=== PATIENT | female | born 1950 | race Caucasian/White ===

== ENCOUNTER 2016-05-30 14:53 | Emergency (ER) | payer OTHER ==
[~2016-05-30] VITALS: Ht 157.5 cm; Wt 86.5 kg
[~2016-05-30 14:53] MED LIST: ANAS1TAB6 PO; CALCTAB5 PO; CITA40TA12 PO; GLIP10TA9 PO; LEVO50TA6 PO; LISI-461 PO; METO25TA56 PO; MULTTAB58 PO; SIME80CH; SIMV20TA2 PO; TRAM-10 PO; VERA1TAB52 PO; VTMB12UNK IM; WARF4TAB PO; WARF5TAB90 PO
[2016-05-30 14:54] VITALS: TEMP 36.9; Ht 157.5 cm; Wt 86.5 kg
[2016-05-30] MEDS ORDERED: CIPR250T3 PO (15:46)
[2016-05-30] MEDS ORDERED: PRT/40 PO (15:46)
[2016-05-30] MEDS ORDERED: XYLOCAINE 1%/SOD BICARB 20 ML VIAL INFIL ONE (16:00)
[2016-05-30 16:17] LABS: BASO % 0.2 %; BASO ABS # 0.02 K/uL (0-0.2); COMPLETE YES; HEMATOCRIT 34.9 % (37-47); IG% 0.2 %; LYMPH % 9.5 %; LYMPH ABS # 0.84 K/uL (1.2-3.4); MEAN CORPUSCULAR HEMOGLOBIN 30.9 pg (25-34); MEAN CORPUSCULAR HGB CONC 34.7 g/dl (32-36); MEAN PLATELET VOLUME 11.9 fL (7.4-10.4); MONO % 3.9 %; NEUT % 86.2 %; PLATELET COUNT 175 K/uL (130-400); RED BLOOD COUNT 3.92 M/uL (4.2-5.4); WHITE BLOOD COUNT 8.88 K/uL (4.8-10.8)
--- NOTE | 2016-05-30 16:24 | EMERGENCY ROOM VISIT NOTE ---
History First contact with patient: 15:24 Chief Complaint: FALL Stated Complaint: FALL History of Present Illness The patient is a 66 year old female who presents to the Emergency Room with complaints of fall. The patient states she was visiting her upstairs when her foot got caught on the floor and she tripped. She struck the right side of her face and head as well as her right ribs on the ground. She denies syncope or loss of consciousness. She rates her discomfort a 10/10. She reports a small laceration to the face. She denies any dizziness, lightheadedness, chest pain, trouble breathing prior to the fall. She states she had mild dizziness after the fall. She denies any extremity pain. She denies any abdominal pain. The patient has a history of hypertension. She states she has noticed that her blood pressure has been elevated recently. The patient states she has also had a mild headache throughout the day today. Her tetanus is not up-to-date. Review of Systems A 10 system review of systems was completed with positives and pertinent negatives listed in the HPI. Past Medical/Surgical History Medical Problems: (1) back surgery february 21, 2012 (2) Benign hypertension (3) Breast cancer (4) Diabetes mellitus (5) Spinal stenosis (6) Total replacement of hip Family History Patient reports no known family medical history. Social History Smoking Status: Former Smoker Alcohol Use: none Drug Use: none Marital Status: Housing Status: lives with family Occupation Status: retired Current/Historical Medications Scheduled Anastrozole (Anastrozole), 1 TAB PO DAILY Calcium (Caltrate), 1,200 MG PO QAM Ciprofloxacin (Cipro), 250 MG PO BID Citalopram Hydrobromide (Celexa), 40 MG PO QAM Cyanocobalamin (Vitamin B-12 Unkown Dose), 1,000 MCG IM EVERY 3 MONTHS Glipizide (Glucotrol), 5 MG PO BID Levothyroxine Sodium (Levothyroxine Sodium), 50 MCG PO QAM Lisinopril (Lisinopril), 10 MG PO QAM Metoprolol Tartrate (Lopressor) (Lopressor), 25 MG PO BID Multiple Vitamin (Multivitamin), 1 TAB PO QAM Pantoprazole (Pantoprazole Sodium), 40 MG PO DAILY Simethicone (Mytab Gas), 1 TAB TID Simvastatin (Zocor), 20 MG PO QPM Verapamil Hcl (Verapamil Hcl Er), 120 MG PO QAM Warfarin Sodium (Coumadin), 4 MG PO DIRECTED Warfarin Sodium (Coumadin), 5 MG PO DIRECTED Scheduled PRN Tramadol (Ultram), 50 MG PO Q6 PRN for Pain Allergies Coded Allergies: Meperidine (Verified Allergy, Mild, ITCHING/RASH, 05/30/16) RASH, ITCHING Metformin (Verified Adverse Reaction, Unknown, INSOMNIA, 05/30/16) Physical Exam Vital Signs Date Time Temp Pulse Resp B/P Pulse Ox O2 Delivery O2 Flow Rate FiO2 05/30/16 16:59 58 18 180/73 94 Room Air 05/30/16 14:54 36.9 57 18 200/98 93 Room Air Physical Exam VITALS: Vitals are noted on the nurse's note and reviewed by myself. Vital signs stable. The patient is afebrile. GENERAL: This is a 66-year-old female, in no acute distress, nondiaphoretic, well-developed well-nourished. SKIN: There is a 1.5 cm laceration to the right periorbital area. There is mild ecchymosis. Capillary reflex less than 2 seconds. HEAD: Normocephalic atraumatic. EARS: External auditory canals clear, tympanic membranes pearly cunningham without erythema or effusion bilaterally. EYES: Pupils equal round and reactive to light and accommodation. Conjunctivae without injection, sclerae without icterus. Extraocular movements intact. NOSE: Patent, turbinates without inflammation or discharge. No sinus tenderness. MOUTH: Mucous membranes moist. Tonsils are not enlarged. Pharynx without erythema or exudate. Uvula midline. Airway patent. Tongue does not deviate. NECK: Supple without nuchal rigidity. Cervical spine is nontender. No JVD. HEART: Regular rate and rhythm without murmurs gallops or rubs. LUNGS: Clear to auscultation bilaterally without wheezes, rales or rhonchi. No retractions or accessory muscle use. MUSCULOSKELETAL: No muscle atrophy, erythema, or edema noted. Full range of motion in all extremities. Normal gait. Strength 5/5 throughout. NEURO: Patient was alert and oriented to person place and time. No focal neurological deficits. Medical Decision & Procedures ER Provider Diagnostic Interpretation: CT HEAD WITHOUT CONTRAST (CT) CLINICAL HISTORY: Head trauma. Patient on Coumadin. Head pain. COMPARISON STUDY: 08/30/2013 TECHNIQUE: Axial CT of the brain is performed from the vertex to the skull base. IV contrast was not administered for this examination. CT DOSE: 601.98 mGy.cm FINDINGS: No intra or extra-axial mass lesions are visualized. There is no CT evidence of acute cortical infarction. There is no evidence of midline shift. There is no acute hemorrhage. No calvarial fractures are visualized. There are patchy white matter hypodensities likely on a small vessel basis. There is no evidence of pathologic ventricular dilatation. There is no evidence of acute sinusitis IMPRESSION: No acute intracranial findings RIGHT RIBS UNILATERAL WITH PA CHEST CLINICAL HISTORY: Right rib pain status post trauma COMPARISON STUDY: No previous studies for comparison. FINDINGS: The erect chest reveals postsurgical changes of a left humeral arthroplasty. There are degenerative changes in the right shoulder. The heart is the upper limits of normal in size. There is no pneumothorax. There is no focal pulmonary consolidation. No acute right-sided rib fractures are visualized. There are postsurgical changes in lumbar spine. There are surgical clips within the right upper quadrant suggesting a prior cholecystectomy. IMPRESSION: No acute right-sided rib fractures identified. No evidence of pneumothorax. Laboratory Results 05/30/16 16:00 Red Blood Count 3.92, Mean Corpuscular Volume 89.0, Mean Corpuscular Hemoglobin 30.9, Mean Corpuscular Hemoglobin Concent 34.7, Mean Platelet Volume 11.9, Neutrophils (%) (Auto) 86.2, Lymphocytes (%) (Auto) 9.5, Monocytes (%) (Auto) 3.9, Eosinophils (%) (Auto) 0.0, Basophils (%) (Auto) 0.2, Neutrophils # (Auto) 7.65, Lymphocytes # (Auto) 0.84, Monocytes # (Auto) 0.35, Eosinophils # (Auto) 0.00, Basophils # (Auto) 0.02 05/30/16 16:00 Test 05/30/16 16:00 05/30/16 16:13 05/30/16 16:55 White Blood Count 8.88 K/uL (4.8-10.8) Red Blood Count 3.92 M/uL (4.2-5.4) Hemoglobin 12.1 g/dL (12.0-16.0) Hematocrit 34.9 % (37-47) Mean Corpuscular Volume 89.0 fL (80-100) Mean Corpuscular Hemoglobin 30.9 pg (25-34) Mean Corpuscular Hemoglobin Concent 34.7 g/dl (32-36) Platelet Count 175 K/uL (130-400) Mean Platelet Volume 11.9 fL (7.4-10.4) Neutrophils (%) (Auto) 86.2 % Lymphocytes (%) (Auto) 9.5 % Monocytes (%) (Auto) 3.9 % Eosinophils (%) (Auto) 0.0 % Basophils (%) (Auto) 0.2 % Neutrophils # (Auto) 7.65 K/uL (1.4-6.5) Lymphocytes # (Auto) 0.84 K/uL (1.2-3.4) Monocytes # (Auto) 0.35 K/uL (0.11-0.59) Eosinophils # (Auto) 0.00 K/uL (0-0.5) Basophils # (Auto) 0.02 K/uL (0-0.2) RDW Standard Deviation 45.4 fL (36.4-46.3) RDW Coefficient of Variation 14.0 % (11.5-14.5) Immature Granulocyte % (Auto) 0.2 % Immature Granulocyte # (Auto) 0.02 K/uL (0.00-0.02) Prothrombin Time 20.8 SECONDS (9.0-12.0) Prothromb Time International Ratio 1.9 (0.9-1.1) Activated Partial Thromboplast Time 36.3 SECONDS (21.0-31.0) Partial Thromboplastin Ratio 1.4 Anion Gap 8.0 mmol/L (3-11) Est Creatinine Clear Calc Drug Dose 79.7 ml/min Estimated GFR () 103.7 Estimated GFR (Non- 89.4 BUN/Creatinine Ratio 18.6 (10-20) Calcium Level 8.9 mg/dl (8.5-10.1) Magnesium Level 2.1 mg/dl (1.8-2.4) Total Bilirubin 0.3 mg/dl (0.2-1) Aspartate Amino Transf (AST/SGOT) 27 U/L (15-37) Alanine Aminotransferase (ALT/SGPT) 43 U/L (12-78) Alkaline Phosphatase 103 U/L (45-117) Total Creatine Kinase 99 U/L (26-192) Total Protein 7.7 gm/dl (6.4-8.2) Albumin 3.9 gm/dl (3.4-5.0) Globulin 3.8 gm/dl (2.5-4.0) Albumin/Globulin Ratio 1.0 (0.9-2) Bedside Troponin I 0.000 ng/ml (0-0.045) Urine Color YELLOW Urine Appearance CLEAR (CLEAR) Urine pH 5.5 (4.5-7.5) Urine Specific [place] 1.016 (1.000-1.030) Urine Protein NEG (NEG) Urine Glucose (UA) NEG (NEG) Urine Ketones NEG (NEG) Urine Occult Blood NEG (NEG) Urine Nitrite NEG (NEG) Urine Bilirubin NEG (NEG) Urine Urobilinogen NEG (NEG) Urine Leukocyte Esterase TRACE (NEG) Urine WBC (Auto) 1-5 /hpf (0-5) Urine RBC (Auto) 0-4 /hpf (0-4) Urine Hyaline Casts (Auto) 1-5 /lpf (0-5) Urine Epithelial Cells (Auto) 20-30 /lpf (0-5) Urine Bacteria (Auto) NEG (NEG) Medications Administered Medications (Trade) Dose Ordered Sig/Kate Route Start Time Stop Time Status Last Admin Dose Admin Lidocaine HCl (Buffered Lidocaine 1% Inj) 20 ml NOW ONCE INFIL 05/30/16 16:00 05/30/16 16:01 DC 05/30/16 16:00 20 ML Procedure Total of 2.5 cm of laceration to the right periorbital area were repaired. Using sterile technique the wound was cleaned with Betadine. The area was sterilely draped. 3 ml of 1% buffered lidocaine was used to anesthetize the skin. Once the patient was numb, the wound was copiously irrigated under pressure with sterile saline. The wound was explored and there were no deep structures such as tendons, bone, or ligaments present. The laceration was repaired using 5 simple interrupted 6-0 nylon sutures with the wound edges being well approximated. The patient tolerated the procedure well. The bleeding stopped. The area was cleaned with sterile saline and dressed with bacitracin ointment and bandage. The patient was discharged home in good condition. ECG Indication: other (fall) Rate (beats per minute): 54 Rhythm: sinus bradycardia Findings: no acute ischemic change Change: no significant change ED Course The patient was seen and examined. Previous visits were reviewed. The patient does not have a fever or leukocytosis. She does not have any significant electrolyte abnormality. Her glucose is elevated at 202. She states she did not take her insulin today. Troponin was not elevated. INR was 1.9. Urinalysis was negative. CT scan of the brain was negative for intracranial bleeding. There is no evidence of skull fracture. X-ray of the right ribs was negative for pneumothorax or obvious rib fracture Lacerations to the right side the face were repaired as above The patient was advised that her INR was 1.9. She should have the sutures removed in 5-7 days. She should return with any worsening symptoms. Just after discharge, I did note that her tetanus was not up-to-date. I placed an order for Adacel. The patient stated she was going back upstairs to visit her . I asked the charge nurse to ensure that she got the tetanus vaccine. He acknowledged and stated he would take care of it. The patient was also seen and examined by who agrees with the assessment and treatment plan. Medical Decision The differential diagnosis includes intracranial bleeding, skull fracture, rib fracture, contusion, pneumothorax, hemothorax, facial laceration, among others Impression Primary Impression: Fall Additional Impressions: Facial laceration Closed head injury Rib contusion Departure Information Dispostion Home / Self-Care Condition GOOD Referrals Quinn Lovett M.D. (PCP) Patient Instructions ED Head Injury Closed, ED Laceration Facial Sutr Tape, [facility] Additional Instructions Keep wound clean and dry. Do not allow any crusting or dried blood to accumulate on sutures. If this occurs, use a 1:1 solution of hydrogen peroxide/ water on a Q-tip to clean the wound. Use an antibiotic ointment for 3-4 days, then let wound dry. Suture removal in 5-7 days. Return sooner for any signs of infection (increasing redness, swelling, drainage). Ice and elevate for swelling and pain. Tylenol according to package instructions for pain. Keep covered when in sun until sutures removed then SPF 50 or higher for one year. Vitamin E oil if desired two weeks after suture removal for reduction of scar. Follow up with your family doctor for further evaluation and management Return with any worsening symptoms Problem Qualifiers Primary Impression: Fall Encounter type: initial encounter Qualified Codes: W19.XXXA - Unspecified fall, initial encounter Additional Impressions: Facial laceration Encounter type: initial encounter Qualified Codes: S01.81XA - Laceration without foreign body of other part of head, initial encounter Closed head injury Encounter type: initial encounter Qualified Codes: S09.90XA - Unspecified injury of head, initial encounter Rib contusion Encounter type: initial encounter Laterality: right Qualified Codes: S20.211A - Contusion of right front wall of thorax, initial encounter
--- NOTE | 2016-05-30 16:30 | DIAGNOSTIC IMAGING REPORT ---
CT HEAD WITHOUT CONTRAST (CT) CLINICAL HISTORY: Head trauma. Patient on Coumadin. Head pain. COMPARISON STUDY: 08/30/2013 TECHNIQUE: Axial CT of the brain is performed from the vertex to the skull base. IV contrast was not administered for this examination. CT DOSE: 601.98 mGy.cm FINDINGS: No intra or extra-axial mass lesions are visualized. There is no CT evidence of acute cortical infarction. There is no evidence of midline shift. There is no acute hemorrhage. No calvarial fractures are visualized. There are patchy white matter hypodensities likely on a small vessel basis. There is no evidence of pathologic ventricular dilatation. There is no evidence of acute sinusitis IMPRESSION: No acute intracranial findings Electronically signed by: José Vences M.D. 05/30/2016 4:29 PM Dictated Date/Time: 05/30/2016 4:28 PM
[2016-05-30 16:32] LABS: INR 1.9 (0.9-1.1); PARTIAL THROMBOPLASTIN RATIO 1.4; PROTHROMBIN TIME (PATIENT) 20.8 SECONDS (9.0-12.0)
[2016-05-30 16:35] LABS: BUN/CREATININE RATIO 18.6 (10-20); CALCIUM 8.9 mg/dl (8.5-10.1); CREATININE 0.69 mg/dl (0.60-1.20); MAGNESIUM 2.1 mg/dl (1.8-2.4); POTASSIUM 4.3 mmol/L (3.5-5.1)
[2016-05-30 16:59] VITALS: BP 180/73; PULSE 58; O2SAT 94
[2016-05-30 17:17] LABS: URINE APPEARANCE CLEAR (CLEAR); URINE BILIRUBIN NEG (NEG); URINE COLOR YELLOW; URINE EPITHELIAL CELL AUTO 20-30 /lpf (0-5); URINE NITRITE NEG (NEG); URINE PH 5.5 (4.5-7.5); URINE SPECIFIC GRAVITY 1.016 (1.000-1.030); UROBILINOGEN NEG (NEG); ZZUR CULT IF INDIC CLEAN CATCH NO
[2016-05-30 17:21] LABS: MANUAL MICROSCOPIC REQUIRED? NO; REVIEW REQ? NO
--- NOTE | 2016-05-30 17:22 | DIAGNOSTIC IMAGING REPORT ---
RIGHT RIBS UNILATERAL WITH PA CHEST CLINICAL HISTORY: Right rib pain status post trauma COMPARISON STUDY: No previous studies for comparison. FINDINGS: The erect chest reveals postsurgical changes of a left humeral arthroplasty. There are degenerative changes in the right shoulder. The heart is the upper limits of normal in size. There is no pneumothorax. There is no focal pulmonary consolidation. No acute right-sided rib fractures are visualized. There are postsurgical changes in lumbar spine. There are surgical clips within the right upper quadrant suggesting a prior cholecystectomy. IMPRESSION: No acute right-sided rib fractures identified. No evidence of pneumothorax. Electronically signed by: José Vences M.D. 05/30/2016 5:20 PM Dictated Date/Time: 05/30/2016 5:18 PM
--- NOTE | 2016-05-30 17:29 | EMERGENCY ROOM VISIT NOTE ---
ED Visit Note First contact with patient: 15:24 This Patient was discussed with the physician Drawer In Hand, Esther Carreno PA-C. The pertinent historical and physical exam findings were confirmed. I agree with the studies ordered and with the interpretations of these studies. I agree with the disposition and care plan.
[2016-05-30] MEDS ORDERED: DIPHTHERIA/TETANUS/PERTUSSIS 0.5 ML SYR/VIAL IM. ONE (18:30)
[2016-06-25] MEDS ORDERED: SITA25TA PO (15:21)
[2016-08-08] MEDS ORDERED: INSDGIPEN SC (10:24)
[2016-08-08] MEDS ORDERED: SITA50TA3 PO (10:24)
[2017-01-07] MEDS ORDERED: ATOR-22 PO (13:16)
[2017-01-21] MEDS ORDERED: WARF4TAB8 PO (15:34)
[2017-01-21] MEDS ORDERED: CIPR0.3S OPB (15:34)
[2017-01-21] MEDS ORDERED: LEVO50TA6 PO (15:34)
[2017-01-21] MEDS ORDERED: GLIP10TA9 PO (15:34)
[2017-01-21] MEDS ORDERED: ARTIOIN OPB (15:34)
[2017-01-21] MEDS ORDERED: PANT40TA PO (15:34)
[2017-01-21] MEDS ORDERED: INSDGI SC (15:34)
[2017-01-21] MEDS ORDERED: METO25TA56 PO (15:34)
[2017-01-21] MEDS ORDERED: MULT-506 PO (15:34)
[2017-01-21] MEDS ORDERED: CALC600T24 PO (15:34)
[2017-01-21] MEDS ORDERED: ACET300T2 PO (15:34)
[2017-01-21] MEDS ORDERED: CITA40TA4 PO (15:34)
[2017-01-21] MEDS ORDERED: SIME80CH PO ×2 (15:34)
[2017-01-21] MEDS ORDERED: ATOR-24 PO (15:34)
[2017-01-21] MEDS ORDERED: GENT0.3S6 OPB (15:34)
[2017-01-21] MEDS ORDERED: TRAM-10 PO (15:34)
[2017-01-21] MEDS ORDERED: LISI-461 PO (15:34)
[2017-01-21] MEDS ORDERED: VERA120T15 PO (15:34)
== END 2016-05-30 17:43 | disposition home or self-care (01) ==
LOC: C.EDB 14:54 → C.EDD 17:43
DX: S01.81XA Laceration without foreign body of other part of head, initial encounter (principal); S09.90XA Unspecified injury of head, initial encounter; S20.219A Contusion of unspecified front wall of thorax, initial encounter; W01.0XXA Fall on same level from slipping, tripping and stumbling without subsequent striking against object, initial encounter; I10 Essential (primary) hypertension; Z85.3 Personal history of malignant neoplasm of breast; E11.9 Type 2 diabetes mellitus without complications; Z98.890 Other specified postprocedural states; Z96.649 Presence of unspecified artificial hip joint; Z87.891 Personal history of nicotine dependence; Z79.01 Long term (current) use of anticoagulants; Z23 Encounter for immunization

== ENCOUNTER → 2016-07-09 | Outpatient (CLI) | payer OTHER ==
[~2016-07-09] MED LIST changes: +ACET300T2 PO; +ARTIOIN OPB; +ATOR-22 PO; +ATOR-24 PO; +CALC600T24 PO; +CIPR0.3S OPB; +CITA40TA4 PO; +GENT0.3S6 OPB; +INSDGI SC; +INSDGIPEN SC; +MULT-506 PO; +PANT40TA PO; +PRT/40 PO; +SIME80CH PO; +SITA25TA PO; +SITA50TA3 PO; +VERA120T15 PO; +WARF4TAB8 PO; -WARF5TAB90 PO
[2016-07-09 12:44] LABS: BASO % 0.5 %; BASO ABS # 0.03 K/uL (0-0.2); COMPLETE YES; EOS % 0.8 %; HEMATOCRIT 36.2 % (37-47); IG% 0.3 %; LYMPH ABS # 1.23 K/uL (1.2-3.4); MEAN CELL VOLUME 90.3 fL (80-100); MEAN CORPUSCULAR HEMOGLOBIN 29.9 pg (25-34); MEAN CORPUSCULAR HGB CONC 33.1 g/dl (32-36); MEAN PLATELET VOLUME 11.5 fL (7.4-10.4); MONO % 5.9 %; NEUT % 73.5 %; PLATELET COUNT 178 K/uL (130-400); RED BLOOD COUNT 4.01 M/uL (4.2-5.4); WHITE BLOOD COUNT 6.47 K/uL (4.8-10.8)
[2016-07-09 12:53] LABS: ESTIMATED AVERAGE GLUCOSE 180 mg/dl; HA1C FLAG Normal (Normal)
[2016-07-09 13:12] LABS: THYROID STIMULATING HORMONE 1.56 uIu/ml (0.300-4.500)
== END | disposition home or self-care (01) ==
LOC: C.LABBC 10:41
PROVIDERS: ATTEND Internal Medicine
DX: I95.9 Hypotension, unspecified (principal); E11.65 Type 2 diabetes mellitus with hyperglycemia; D64.9 Anemia, unspecified

== ENCOUNTER → 2016-07-22 | Outpatient (CLI) | payer OTHER ==
[~2016-07-22] MED LIST changes: +CYAN1DRO IM
--- NOTE | 2016-07-23 08:03 | MAMMOGRAPHY REPORT ---
UNILATERAL LEFT DIGITAL DIAGNOSTIC MAMMOGRAM TOMOSYNTHESIS WITH CAD: 07/22/2016 CLINICAL HISTORY: 66-year-old woman presents for new baseline in the left breast status post lumpect sridevi and radiation. Patient also has a history of right breast cancer status post treatment in 2013. TECHNIQUE: Left breast CC and MLO 2-D digital and tomosynthesis images, spot magnification left CC a nd ML views were obtained. Current study was also evaluated with a Computer Aided Detection (CAD) s ystem. COMPARISON: Comparison is made to exams dated: 01/04/2016 localization, 12/18/2015 ultrasound, 6 ultrasound biopsy, 12/14/2015 mammogram, and 10/19/2013 mammogram - [facility]. BREAST COMPOSITION: There are scattered areas of fibroglandular density in the left breast. FINDINGS: There is expected architectural distortion with central lucency representing the lumpectom y site in the central left breast. A linear scar marker overlies the anterior left breast. There a re a few benign coarse calcifications in the left breast. No new suspicious mass, unexpected abdias ectural distortion or cluster of suspicious microcalcifications is seen. IMPRESSION: ACR-BI-RADS CATEGORY 3: PROBABLY BENIGN Expected post treatment changes in the left breast, without mammographic evidence of malignancy. An nual bilateral mammography is due in 6 months and repeat spot magnification views of the left breast can also be obtained at that time to ensure stability after treatment. These results and recommend ations were discussed with the patient at the time of the exam. Approximately 10% of breast cancers are not detected with mammography. A negative mammographic repor t should not delay biopsy if a clinically suggestive mass is present. Chaparrita Rehman M.D. ay/:07/22/2016 13:59:02 Negative Retoucher: Hailey REMY(Ion)(Catherine), [facility] letter sent: Follow Up Recommended 3 BI-RADS Code: ACR-BI-RADS Category 3: Probably Benign
== END | disposition home or self-care (01) ==
LOC: C.MAMM 13:25
PROVIDERS: ATTEND Surgery
DX: R92.1 Mammographic calcification found on diagnostic imaging of breast (principal)

== ENCOUNTER → 2016-12-18 | Outpatient (CLI) | payer OTHER ==
[~2016-12-18] MED LIST changes: -SITA25TA PO
[2016-12-18 12:34] LABS: BASO % 0.3 %; BASO ABS # 0.02 K/uL (0-0.2); COMPLETE YES; EOS % 0.9 %; LYMPH ABS # 1.18 K/uL (1.2-3.4); MEAN CELL VOLUME 92.6 fL (80-100); MEAN CORPUSCULAR HEMOGLOBIN 30.2 pg (25-34); MEAN CORPUSCULAR HGB CONC 32.6 g/dl (32-36); MEAN PLATELET VOLUME 11.1 fL (7.4-10.4); MONO % 9.3 %; NEUT % 71.5 %; PLATELET COUNT 205 K/uL (130-400); RED BLOOD COUNT 3.78 M/uL (4.2-5.4); WHITE BLOOD COUNT 6.54 K/uL (4.8-10.8)
[2016-12-18 12:48] LABS: ALT/SGPT 30 U/L (12-78); AST/SGOT 19 U/L (15-37); BLOOD UREA NITROGEN 16 mg/dl (7-18); BUN/CREATININE RATIO 26.7 (10-20); CALCIUM 8.9 mg/dl (8.5-10.1); CARBON DIOXIDE 25 mmol/L (21-32); CHLORIDE 108 mmol/L (98-107); CREATININE 0.61 mg/dl (0.60-1.20); GLUCOSE 64 mg/dl (70-99); POTASSIUM 4.4 mmol/L (3.5-5.1); SODIUM 138 mmol/L (136-145)
[2016-12-18 12:50] LABS: ALKALINE PHOSPHATASE 85 U/L (45-117); CHOLESTEROL 164 mg/dl (0-200); HDL CHOLESTEROL 54 mg/dl; LDL CHOLESTEROL CALCULATED 82 mg/dl; TRIGLYCERIDES 141 mg/dl (0-150); VERY LOW DENSITY LIPOPROT CALC 28 mg/dl
[2016-12-18 13:06] LABS: ESTIMATED AVERAGE GLUCOSE 137 mg/dl; HA1C FLAG Normal (Normal)
== END | disposition home or self-care (01) ==
LOC: C.LABBFT 10:31
PROVIDERS: ATTEND Internal Medicine
DX: I10 Essential (primary) hypertension (principal); E03.9 Hypothyroidism, unspecified; E78.00 Pure hypercholesterolemia, unspecified; E11.65 Type 2 diabetes mellitus with hyperglycemia

== ENCOUNTER → 2017-01-27 | Outpatient (CLI) | payer OTHER ==
[~2017-01-27] MED LIST changes: -ATOR-22 PO; -CALCTAB5 PO; -CITA40TA12 PO; -INSDGIPEN SC; -MULTTAB58 PO; -PRT/40 PO; -SIME80CH; -SIMV20TA2 PO; -SITA50TA3 PO; -VERA1TAB52 PO; -WARF4TAB PO
--- NOTE | 2017-01-27 15:52 | MAMMOGRAPHY REPORT ---
BILATERAL DIGITAL DIAGNOSTIC MAMMOGRAM TOMOSYNTHESIS WITH CAD: 01/27/2017 CLINICAL HISTORY: 67-year-old woman with a personal history of bilateral breast cancer status post br east conservation treatment in each breast. TECHNIQUE: Bilateral breast tomosynthesis in addition to standard 2D mammography was performed. Spot magnification left CC and ML views were also obtained in the left breast. Current study was also ev aluated with a Computer Aided Detection (CAD) system. COMPARISON: Comparison is made to exams dated: 07/22/2016 mammogram, 12/18/2015 ultrasound biopsy, 2015 mammogram, 11/15/2014 mammogram, 10/19/2013 mammogram, and 09/15/2012 mammogram - [facility]. BREAST COMPOSITION: There are scattered areas of fibroglandular density in both breasts. FINDINGS: There is expected architectural distortion and benign oil cysts in the far posterior retroa reolar right breast, and central left breast, at the sites of prior lumpectomy. There are scattered benign-appearing calcifications in the breasts. Stable focal asymmetry in the right upper outer quad rant. No new suspicious mass, architectural distortion or cluster of microcalcifications is seen. IMPRESSION: ACR-BI-RADS CATEGORY 3: PROBABLY BENIGN Expected post treatment changes in each breast, without definite mammographic evidence of malignancy. Another close follow-up of the left breast is recommended in 6 months with diagnostic tomosynthesis mammograms and possible ultrasound. Recommend routine mammography of the right breast in 12 months. These results and recommendations were discussed with the patient at the time of the exam. Approximately 10% of breast cancers are not detected with mammography. A negative mammographic report should not delay biopsy if a clinically suggestive mass is present. Chaparrita Rehman M.D. ay/:01/27/2017 12:31:13 Forestry Scientist: Hailey CARTER)(Catherine), [facility] letter sent: Follow Up Recommended 3 BI-RADS Code: ACR-BI-RADS Category 3: Probably Benign
== END | disposition home or self-care (01) ==
LOC: C.MAMM 10:38
PROVIDERS: ATTEND Surgery
DX: Z85.3 Personal history of malignant neoplasm of breast (principal); Z08 Encounter for follow-up examination after completed treatment for malignant neoplasm

== ENCOUNTER → 2017-01-30 | Outpatient (CLI) | payer OTHER ==
[2017-01-30 17:37] LABS: BASO % 0.3 %; BASO ABS # 0.02 K/uL (0-0.2); COMPLETE YES; HEMATOCRIT 37.2 % (37-47); IG% 0.2 %; LYMPH % 20.8 %; LYMPH ABS # 1.22 K/uL (1.2-3.4); MEAN CELL VOLUME 93.9 fL (80-100); MEAN CORPUSCULAR HEMOGLOBIN 29.3 pg (25-34); MEAN CORPUSCULAR HGB CONC 31.2 g/dl (32-36); MEAN PLATELET VOLUME 12.2 fL (7.4-10.4); MONO % 9.4 %; NEUT % 68.3 %; PLATELET COUNT 202 K/uL (130-400); RED BLOOD COUNT 3.96 M/uL (4.2-5.4); WHITE BLOOD COUNT 5.86 K/uL (4.8-10.8)
[2017-01-30 18:01] LABS: ALT/SGPT 42 U/L (12-78); AST/SGOT 30 U/L (15-37); BLOOD UREA NITROGEN 18 mg/dl (7-18); BUN/CREATININE RATIO 27.4 (10-20); CALCIUM 9.1 mg/dl (8.5-10.1); CARBON DIOXIDE 28 mmol/L (21-32); CHLORIDE 104 mmol/L (98-107); CREATININE 0.66 mg/dl (0.60-1.20); GLUCOSE 160 mg/dl (70-99); POTASSIUM 4.7 mmol/L (3.5-5.1); SODIUM 137 mmol/L (136-145)
[2017-01-30 18:04] LABS: ALKALINE PHOSPHATASE 98 U/L (45-117)
== END | disposition home or self-care (01) ==
LOC: C.LABBFT 11:20
PROVIDERS: ATTEND Internal Medicine Hematology & Oncology
DX: C50.012 Malignant neoplasm of nipple and areola, left female breast (principal)

== ENCOUNTER → 2017-02-05 | Day surgery (SDC) | payer OTHER ==
[2017-01-21 15:19] VITALS: BMI 31.0
[~2017-02-05] VITALS: Ht 160 cm; Wt 81.8 kg
[~2017-02-05] MED LIST changes: +ETOMIDATE 2 MG/ML 20 ML VIAL IV ONE; +FENTANYL CITRATE INJ 50 MCG/1 ML 2 ML VIAL ONE; +LIDOCAINE HCL 2% 2 ML VIAL (20MG/ML) ONE; +MIDAZOLAM HCL 1 MG/ML 2ML VIAL ONE; +PROPOFOL IV EMULSION 10 MG/ML 20 ML VIAL IV ONE; +SODIUM CHLORIDE 0.9% 500ML 500 ML IV ONE
[2017-02-05 09:09] VITALS: TEMP 36.4
[2017-02-05 09:11] VITALS: Ht 160 cm; Wt 81.8 kg
--- NOTE | 2017-02-05 09:20 | Endo History and Physical ---
History & Physical Date of Service: Feb 05, 2017. Chief Complaint: screening Referring Physician: Dr. Lovett History of Present Illness 67 yo CF who presents for screening colonoscopy. Past Medical History Atrial Fibrillation, Diabetes, Osteoporosis, Arthritis, Anxiety, Cancer, High Cholesterol, Heart Disease, Hypertension, Thyroid Disease, Depression Past Surgical History Hx Cardiac Surgery: No Hx Internal Defibrillator: No Hx Pacemaker: No Hx Abdominal Surgery: Yes (GASTRIC BYPASS, MALLORY, PANNICULECTOMY, ABDOMINAL HERNIA REPAIR) Hx of Implantable Prosthesis: No Hx Post-Op Nausea and Vomiting: No Hx Cancer Surgery: Yes (LEFT BREAST LUMPECTOMY) Hx Thoracic Surgery: No Hx Orthopedic: Yes (RT/LEFT TKA, RT/LEFT FREDA, LUMBAR FUSION) Hx Urinary Tract Surgery: No Family History None Social History Smoking Status: Former Smoker Hx Substance Use: No Hx Alcohol Use: Yes (RARELY ) Allergies Coded Allergies: Meperidine (Verified Allergy, Mild, ITCHING/RASH, 01/21/17) RASH, ITCHING Metformin (Verified Adverse Reaction, Unknown, INSOMNIA, 01/21/17) Current Medications Reported Home Medications Medications Dose Route/Sig Max Daily Dose Days Date Category Dose Instructions Jantoven (Warfarin Sodium) 4 Mg Tab 4 Mg PO QPM 01/21/17 Reported Calan (Verapamil HCl) 120 Mg Tab 120 Mg PO QAM 01/21/17 Reported Ultram (Tramadol HCl) 50 Mg Tab 100 Mg PO Q8H PRN 01/21/17 Reported Gas-X (Simethicone) 80 Mg Chw 1 Tab PO TID 01/21/17 Reported Protonix (Pantoprazole Sodium) 40 Mg Tab 40 Mg PO QAM 01/21/17 Reported Multivitamin (Multivitamins) Tab 1 Tab PO QAM 01/21/17 Reported Lopressor (Metoprolol Tartrate) 25 Mg Tab 25 Mg PO BID 01/21/17 Reported Zestril (Lisinopril) 10 Mg Tab 10 Mg PO QAM 01/21/17 Reported Levothyroxine Sodium 50 Mcg Tab 1 Tab PO QAM 90 01/21/17 Reported Lantus (Insulin Glargine) 100 Unit/Ml Inj 15 Unit SC HS 01/21/17 Reported Glucotrol (Glipizide) 10 Mg Tab 10 Mg PO BID 01/21/17 Reported Gentamicin 0.3% Oph (Gentamicin Sulfate (Ophth)) 0.3 % Ledy 1 Drop OPB BID 01/21/17 Reported Citalopram Hydrobromide (Citalopram) 40 Mg Tab 1 Tab PO QAM 90 01/21/17 Reported Ciloxan Oph (Ciprofloxacin Hcl (Ophth)) 0.3 % Ledy 3 Drops OPB BID 01/21/17 Reported Calcium/Vitamin D (Calcium W/ Vitamin D) 1 Tab Tab 1 Tab PO BID 01/21/17 Reported Lipitor (Atorvastatin Calcium) 40 Mg Tab 40 Mg PO HS 01/21/17 Reported Lacri-Lube Sop Oph Oint (Artificial Tears) Oint 0.25-0.5 Inch OPB QID PRN 01/21/17 Reported TO THE AFFECTED EYE UP TO QID PRN Tylenol W/Codeine #3 (Acetaminophen W/ Codeine) 1 Tab Tab 1-2 Tab PO Q6H PRN 01/21/17 Reported Anastrozole 1 Mg Tab 1 Mg PO QAM 30 03/12/16 Reported Vitamin B-12 Unkown Dose (Cyanocobalamin) Tab 1,000 Mcg IM MONTHLY 12/19/11 Reported Vital Signs Weight (Kilograms): 81.82 Height (Feet): 5 Height (Inches): 3 Date Time Temp Pulse Resp B/P (MAP) Pulse Ox O2 Delivery O2 Flow Rate FiO2 02/05/17 09:09 36.4 54 18 123/82 (96) 98 Room Air Physical Exam General Appearance: WD/WN, no apparent distress Respiratory/Chest: Auscultation: breath sounds normal Cardiovascular: Heart Auscultation: RRR Abdomen: Bowel Sounds: normal Inspection & Palpation: soft, non-distended, no tenderness, guarding & rebound Assessment and Plan Assessment: 67 yo CF who presents for screening colonoscopy. Plan: Proceed with colonoscopy.
--- NOTE | 2017-02-05 09:56 | GI REPORT ---
Procedure Date: 02/05/2017 9:35 AM Procedure: Colonoscopy Indications: Screening for colorectal malignant neoplasm Medicines: Monitored Anesthesia Care Complications: No immediate complications. Estimated Blood Loss: Estimated blood loss: none. Procedure: Pre-Anesthesia Assessment: - Prior to the procedure, a History and Physical was performed, and patient medications and allergies were reviewed. The patient's tolerance of previous anesthesia was also reviewed. The risks and benefits of the procedure and the sedation options and risks were discussed with the patient. All questions were answered, and informed consent was obtained. Prior Anticoagulants: The patient has taken Coumadin (warfarin), last dose was 8 days prior to procedure. ASA Grade Assessment: III - A patient with severe systemic disease. After reviewing the risks and benefits, the patient was deemed in satisfactory condition to undergo the procedure. After I obtained informed consent, the scope was passed under direct vision. Throughout the procedure, the patient's blood pressure, pulse, and oxygen saturations were monitored continuously. The scope was introduced through the anus and advanced to the terminal ileum. The colonoscopy was performed without difficulty. The patient tolerated the procedure well. The quality of the bowel preparation was good. The terminal ileum, ileocecal valve, appendiceal orifice, and rectum were photographed. Findings: Non-bleeding internal hemorrhoids were found during retroflexion. The hemorrhoids were small. The exam was otherwise without abnormality. Impression: - Non-bleeding internal hemorrhoids. - The examination was otherwise normal. - No specimens collected. Recommendation: - Resume previous diet. - Continue present medications. - No repeat colonoscopy due to age and the absence of advanced adenomas. - Return to primary care physician [Return Day]. Andrey Rojas DO 02/05/2017 9:55:56 AM This report has been signed electronically. Note Initiated On: 02/05/2017 9:35 AM I attest to the content of the Intraoperative Record and orders documented therein, exceptions below
--- NOTE | 2017-02-05 09:57 | Discharge Instructions ---
Endoscopy Patient Instructions Date / Procedure(s) Performed Feb 05, 2017. Colonoscopy Allergy Information Coded Allergies: Meperidine (Verified Allergy, Mild, ITCHING/RASH, 01/21/17) RASH, ITCHING Metformin (Verified Adverse Reaction, Unknown, INSOMNIA, 01/21/17) Discharge Date / Findings Feb 05, 2017. Internal hemorrhoids Medication Instructions Stopped Medication(s): coumadin stopped for one week. 01-31-17 OK to resume all medications today as prescribed Reported Home Medications Medications Dose Route/Sig Max Daily Dose Days Date Category Dose Instructions Jantoven (Warfarin Sodium) 4 Mg Tab 4 Mg PO QPM 01/21/17 Reported Calan (Verapamil HCl) 120 Mg Tab 120 Mg PO QAM 01/21/17 Reported Ultram (Tramadol HCl) 50 Mg Tab 100 Mg PO Q8H PRN 01/21/17 Reported Gas-X (Simethicone) 80 Mg Chw 1 Tab PO TID 01/21/17 Reported Protonix (Pantoprazole Sodium) 40 Mg Tab 40 Mg PO QAM 01/21/17 Reported Multivitamin (Multivitamins) Tab 1 Tab PO QAM 01/21/17 Reported Lopressor (Metoprolol Tartrate) 25 Mg Tab 25 Mg PO BID 01/21/17 Reported Zestril (Lisinopril) 10 Mg Tab 10 Mg PO QAM 01/21/17 Reported Levothyroxine Sodium 50 Mcg Tab 1 Tab PO QAM 90 01/21/17 Reported Lantus (Insulin Glargine) 100 Unit/Ml Inj 15 Unit SC HS 01/21/17 Reported Glucotrol (Glipizide) 10 Mg Tab 10 Mg PO BID 01/21/17 Reported Gentamicin 0.3% Oph (Gentamicin Sulfate (Ophth)) 0.3 % Ledy 1 Drop OPB BID 01/21/17 Reported Citalopram Hydrobromide (Citalopram) 40 Mg Tab 1 Tab PO QAM 90 01/21/17 Reported Ciloxan Oph (Ciprofloxacin Hcl (Ophth)) 0.3 % Ledy 3 Drops OPB BID 01/21/17 Reported Calcium/Vitamin D (Calcium W/ Vitamin D) 1 Tab Tab 1 Tab PO BID 01/21/17 Reported Lipitor (Atorvastatin Calcium) 40 Mg Tab 40 Mg PO HS 01/21/17 Reported Lacri-Lube Sop Oph Oint (Artificial Tears) Oint 0.25-0.5 Inch OPB QID PRN 01/21/17 Reported TO THE AFFECTED EYE UP TO QID PRN Tylenol W/Codeine #3 (Acetaminophen W/ Codeine) 1 Tab Tab 1-2 Tab PO Q6H PRN 01/21/17 Reported Anastrozole 1 Mg Tab 1 Mg PO QAM 30 03/12/16 Reported Vitamin B-12 Unkown Dose (Cyanocobalamin) Tab 1,000 Mcg IM MONTHLY 12/19/11 Reported Provider Instructions Activity Restrictions - No exercising or heavy lifting for 24 hours. - Do not drink alcohol the day of the procedure. - Do not drive a car or operate machinery until the day after the procedure. - Do not make any important decisions or sign important papers in 24 hours after the procedure. Following Day: - Return to full activity which may include returning to work/school. Diet Start your diet with liquids and light foods (jello, soup, juice, toast). Then eat your usual diet if not nauseated. Treatment For Common After Affects For mild abdominal pain, bloating, or excessive gas: - Rest - Eat lightly - Lie on right side Follow-Up Information Follow-up with Dr. Lovett as scheduled Anesthesia Information What You Should Know You have had a procedure that required some medicine to reduce anxiety and discomfort. This treatment is called moderate sedation. After receiving the treatment, you may be sleepy, but you will be able to breathe on your own. The effects of the treatment may last for several hours. Follow these instructions along with Activity/Diet recommendations noted above: * Do NOT do anything where dizziness or clumsiness would be dangerous. * Rest quietly at home today, then you can be up and about tomorrow. * Have a responsible person stay with you the rest of today. * You may have had an I.V. today. If so, you may take the dressing off later today. Recommendations Call your doctor if: * Trouble breathing * Continuous vomiting for more than 24 hours * Temperature above 101 degrees * Severe abdominal pain or bloating * Pain not relieved by pain medicine ordered * There is increased drainage or redness from any incision * A large amount of rectal bleeding greater than 2-3 tablespoons. (If you had a polyp/s removed or have hemorrhoids, a small amount of blood - from the rectum is to be expected.) * You have any unanswered questions or concerns. IN THE EVENT OF A SERIOUS EMERGENCY, GO TO THE NEAREST EMERGENCY ROOM Your discharge instructions were prepared by provider Andrey Rojas. Patient Instructions Signature Page Faith Solorzano Patient (or Guardian) Signature/Date: I have read and understand the instructions given to me by my caregivers. Caregiver/RN/Doctor Signature/Date: The above-named patient and/or guardian has received patient instructions on this date. + Original Patient Signature Page (only) stays with chart. Please make copy for patient.
--- NOTE | 2017-02-05 10:28 | Anesthesiology Progress Note ---
Anesthesia Post Op Note Date & Time Feb 05, 2017 at 10:28 Vital Signs Pain Intensity: 0 Vital Signs Past 12 Hours Date Time Temp Pulse Resp B/P (MAP) Pulse Ox O2 Delivery O2 Flow Rate FiO2 02/05/17 10:14 64 18 166/72 (103) 95 Room Air 02/05/17 09:59 55 16 157/77 (103) 98 Room Air 02/05/17 09:09 36.4 54 18 123/82 (96) 98 Room Air Notes Mental Status: alert / awake / arousable, participated in evaluation Pt Amnestic to Procedure: Yes Nausea / Vomiting: adequately controlled Pain: adequately controlled Airway Patency, RR, SpO2: stable & adequate BP & HR: stable & adequate Hydration State: stable & adequate Anesthetic Complications: no major complications apparent
[2017-02-05 10:29] VITALS: BP 164/70; PULSE 62; O2SAT 96
== END | disposition home or self-care (01) ==
LOC: C.GI 08:32
PROVIDERS: ATTEND Internal Medicine
DX: Z12.11 Encounter for screening for malignant neoplasm of colon (principal); I48.91 Unspecified atrial fibrillation; F42.9 Obsessive-compulsive disorder, unspecified; E78.00 Pure hypercholesterolemia, unspecified; I10 Essential (primary) hypertension; E07.9 Disorder of thyroid, unspecified; F32.9 Major depressive disorder, single episode, unspecified; Z98.84 Bariatric surgery status; Z87.891 Personal history of nicotine dependence; Z79.01 Long term (current) use of anticoagulants; Z79.899 Other long term (current) drug therapy; Z79.4 Long term (current) use of insulin; K64.8 Other hemorrhoids

== ENCOUNTER → 2017-02-24 | Day surgery (SDC) | payer OTHER ==
[2017-02-20 12:53] VITALS: Ht 160 cm; Wt 81.8 kg
[~2017-02-24] VITALS: Ht 160 cm; Wt 81.8 kg
[~2017-02-24] MED LIST changes: +ACETAMINOPHEN 325 MG TAB PO PRN; +ATROPINE SULFATE 0.1 MG/ML 5ML SYR IV PRN; +ATROPINE SULFATE 1% OP OINT PER APPLICATION CHARGE ONE; +ATROPINE SULFATE 1% OP SOLN 2 ML BTL ONE; +BUPIVACAINE HCL 0.75% 10 ML AMP/VIAL ONE; +CEFAZOLIN SOD 1 GM VIAL ONE; -CIPR0.3S OPB; +DEXAMETHASONE SOD INJ 4 MG/ML VIAL ONE; -ETOMIDATE 2 MG/ML 20 ML VIAL IV ONE; +EpHEDrine SULFATE INJ 50 MG/ML AMP IV PRN; +EpINEphrine INJ 1MG/ML AMP 1 MG/ML AMP ONE; -GENT0.3S6 OPB; +HYALURONIDASE HUMAN 150 UNIT/ML INJ ONE; +INDOCYANINE GREEN 25 MG/10 ML ONE; +LACTATED RINGER'S 1000ML 500 ML IV SCH; +LIDOCAINE HCL 2% LOCAL 20 ML VIAL ONE; +NEOMYCIN/POLYMYX/DEXAMETH OP OINT PER APP CHARGE ONE; +POVIDONE-IODINE OP SOLN (SURGERY CNTR CHARGING ONLY) ONE; +PROPARACAINE 0.5% OP SOLN PER DROP CHARGE OPR SCH; -SODIUM CHLORIDE 0.9% 500ML 500 ML IV ONE; +TIMOLOL MALEATE 0.5% OP SOLN PER DROP CHARGE ONE; -VTMB12UNK IM
[2017-02-24] MEDS: PHENYLEPHRINE HCL 2.5% OP SOLN PER DROP CHARGE OPR SCH ×2 (06:48→06:52)
[2017-02-24] MEDS: TROPICAMIDE 1% OP SOLN PER DROP CHARGE OPR SCH ×2 (06:49→06:53)
--- NOTE | 2017-02-24 06:59 | History & Physical Bridge - SC ---
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 I have examined the patient, reviewed the History & Physical and in the interval since the performance of the History & Physical I have noted the following changes of clinical significance: No changes noted
[2017-02-24 07:00] LABS: INR 1.8 (0.9-1.1); PARTIAL THROMBOPLASTIN RATIO 1.4; PROTHROMBIN TIME (PATIENT) 20.1 SECONDS (9.0-12.0)
--- NOTE | 2017-02-24 08:41 | [facility] Operative Report ---
Operative Report Date of Service Feb 24, 2017. Operative Report PREOPERATIVE DIAGNOSIS: Epiretinal membrane with inner lamellar hole, right eye. ICD10: H35.371 POSTOPERATIVE DIAGNOSIS: same[]. PROCEDURE: 1. Pars plana vitrectomy, 23 gauge. 2. Membrane peeling of the internal limiting membrane and overlying epiretinal membrane. 3. Fluid air exchange. All to the right eye. CPT CODE: 98779 SURGEON: Quinn Coleman D.O. COMPLICATIONS: None. ESTIMATED BLOOD LOSS: None. SPECIMENS: None. ANESTHESIA: Retrobulbar block and MAC. INDICATIONS FOR PROCEDURE: The patient has an epiretinal membrane that is visually significant. Vitrectomy surgery is indicated to decrease risk of vision loss and potentially improve vision. CONSENT: The risks, benefits and alternatives were discussed with the patient including but not limited to decreased visual acuity, failure to achieve desired results, loss of the eye, infection, pain, glaucoma, lens changes, retinal tears, retinal detachment, the need for more procedures, drooping of the eyelid, blindness, and double vision. The patient is aware of risks and consents to the surgery. Consent is signed and on the chart. OPERATION AND FINDINGS: The patient was brought to the operating room where the patient was identified by name, date, and medical record number. The surgical site was confirmed with the informed written consent. The patient was sedated by the anesthesiology team after which a 50:50 mixture of 2% lidocaine and 0.75% bupivacaine with hyaluronidase was administered in a standard retrobulbar fashion. A total of 4 ml was administered without difficulty. The patient was then prepped and draped in the usual sterile manner for retinal surgery. A wire lid speculum was placed and an Saul 23-gauge trocar cannula system was employed. The inferior temporal trocar cannula was first placed in an angled fashion 3.75mm posterior to the surgical limbus and the infusion cannula was inserted into this cannula after which the intravitreal position was verified prior to turning the infusion on. Two more trocar cannulas were then inserted in an angled fashion, one in the superior temporal, and one in the superior nasal quadrant both 3.75mm posterior to the surgical limbus. A light pipe and vitrector were then introduced into the eye and the BIOM wide angle viewing system was brought into place. Standard core vitrectomy was performed the vitreous was insured to be totally detached from the posterior pole with the aid of the vitrector. Next 0.05ml of indocyanine green was placed over the macular surface to stain the internal limiting membrane. This was washed from the eye after 10 seconds. At this point a flat contact lens was placed on the surface of the eye and a flex scraper and ILM forceps were used to gently peel the internal limiting membrane and overlying epiretinal membrane off of the macular surface without difficulty. At this point scleral depression was performed for 360 degrees and no retinal tears or detachments were noted. A fluid air exchange was performed. The trocar cannulas were then removed and found to be water tight. The intraocular pressure was found to be within normal limits by palpation and subconjunctival injections of Kefzol and dexamethasone were administered inferiorly and superiorly. The wire lid speculum was removed. Maxitrol was applied to the surface of the eye. A light patch and shield were taped over the surface of the eye and the patient left the Operating Room in stable condition having tolerated the procedure well. DISPOSITION: The patient has an appointment the following morning in the Ophthalmology Clinic. The patient is to call immediately if there are any problems overnight. I attest to the content of the Intraoperative Record and any orders documented therein. Any exceptions are noted below.
--- NOTE | 2017-02-24 08:42 | Discharge Instructions-SurgCtr ---
Discharge Instructions Date of Service Feb 24, 2017. Visit Reason for Visit: Right Eye Epiretinal Membrane Discharge Discharge Diagnosis / Problem: same Discharge Goals Goal(s): Improve function Activity Recommendations Activity Limitations: per Instructions/Follow-up section Anesthesia . Post Anesthesia Instructions: If you have had General Anesthesia or IV Sedation: * Do not drive today. * Resume driving when surgeon permits. * Do not make important decisions or sign legal documents today. * Call surgeon for: 1. Temperature elevations greater than 101 degrees F. 2. Uncontrollable pain. 3. Excessive bleeding. 4. Persistent nausea and vomiting. 5. Medication intolerance (nausea, vomiting or rash). * For nausea and vomiting use only clear liquids such as: tea, soda, bouillon until nausea subsides, then gradually increase diet as tolerated. * If you have any concerns or questions, call your surgeon's office. If physician is unavailable and it is an emergency, call 911 or go to the nearest emergency room. . Instructions / Follow-Up Instructions / Follow-Up * May take Tylenol if needed for discomfort. * Do NOT lay flat on back. Sleep on either side * Do NOT remove green bracelet until instructed to do so by you.r surgeon and follow these precautions: * No air travel * No travel above 2500 feet * No nitrous oxide (N2O). * Do NOT remove eye shield. * NO straining, heavy lifting (>15 pounds) or bending below waist. * Avoid getting water or soap directly into operative eye. * Do NOT rub eye. If you experience increasing eye pain not relieved by medication, please contact us immediately at [phone]. If you are unable to reach someone at the above number, call [phone] and ask to speak with the EYE DOCTOR STEEPLE JACK. Inform them that you are a Dr. Coleman patient who had recent surgery. Diet Recommendations Home Diet: resume previous diet Procedures Procedures Performed: Right Eye 23 Gauge Vitrectomy, Membrane Peeling, Instillation of Sterile Air Pending Studies Studies pending at discharge: no Medical Emergencies . Who to Call and When: Medical Emergencies: If at any time you feel your situation is an emergency, please call 911 immediately. . Non-Emergent Contact Non-Emergency issues call your: Subacute Nurse . . "Provider Documentation" section prepared by Quinn Coleman. .
[2017-02-24 08:44] VITALS: TEMP 36.9
--- NOTE | 2017-02-24 09:02 | Anesthesia Progress Nt - [facility] ---
Anesthesia Post Op Note Date & Time Feb 24, 2017 at 09:02 Vital Signs Pain Intensity: 0 Vital Signs Past 12 Hours Date Time Temp Pulse Resp B/P (MAP) Pulse Ox O2 Delivery O2 Flow Rate FiO2 02/24/17 08:44 36.9 57 16 122/71 (88) 95 Room Air 02/24/17 06:41 36.5 50 16 116/78 (91) 97 Room Air Notes Mental Status: alert / awake / arousable, participated in evaluation Pt Amnestic to Procedure: Yes Nausea / Vomiting: adequately controlled Pain: adequately controlled Airway Patency, RR, SpO2: stable & adequate BP & HR: stable & adequate Hydration State: stable & adequate Anesthetic Complications: no major complications apparent
[2017-02-24 09:07] VITALS: BP 129/71; PULSE 73; O2SAT 98
== END | disposition home or self-care (01) ==
LOC: X.SURG 06:17
PROVIDERS: ATTEND Ophthalmology
DX: H35.371 Puckering of macula, right eye (principal); I10 Essential (primary) hypertension; K21.9 Gastro-esophageal reflux disease without esophagitis; I48.92 Unspecified atrial flutter; R06.02 Shortness of breath; M19.90 Unspecified osteoarthritis, unspecified site; E11.9 Type 2 diabetes mellitus without complications; E78.00 Pure hypercholesterolemia, unspecified; E03.9 Hypothyroidism, unspecified; M54.16 Radiculopathy, lumbar region; E66.01 Morbid (severe) obesity due to excess calories; G47.33 Obstructive sleep apnea (adult) (pediatric); Z85.3 Personal history of malignant neoplasm of breast; Z90.49 Acquired absence of other specified parts of digestive tract; Z90.12 Acquired absence of left breast and nipple; Z90.710 Acquired absence of both cervix and uterus; Z90.722 Acquired absence of ovaries, bilateral; Z96.649 Presence of unspecified artificial hip joint; Z96.659 Presence of unspecified artificial knee joint; Z87.891 Personal history of nicotine dependence; Z79.01 Long term (current) use of anticoagulants

== ENCOUNTER → 2017-05-28 | Outpatient (CLI) | payer OTHER ==
[~2017-05-28] MED LIST changes: -ACETAMINOPHEN 325 MG TAB PO PRN; -ATROPINE SULFATE 0.1 MG/ML 5ML SYR IV PRN; -ATROPINE SULFATE 1% OP OINT PER APPLICATION CHARGE ONE; -ATROPINE SULFATE 1% OP SOLN 2 ML BTL ONE; -BUPIVACAINE HCL 0.75% 10 ML AMP/VIAL ONE; -CEFAZOLIN SOD 1 GM VIAL ONE; -DEXAMETHASONE SOD INJ 4 MG/ML VIAL ONE; -EpHEDrine SULFATE INJ 50 MG/ML AMP IV PRN; -EpINEphrine INJ 1MG/ML AMP 1 MG/ML AMP ONE; -FENTANYL CITRATE INJ 50 MCG/1 ML 2 ML VIAL ONE; -HYALURONIDASE HUMAN 150 UNIT/ML INJ ONE; -INDOCYANINE GREEN 25 MG/10 ML ONE; -LACTATED RINGER'S 1000ML 500 ML IV SCH; -LIDOCAINE HCL 2% 2 ML VIAL (20MG/ML) ONE; -LIDOCAINE HCL 2% LOCAL 20 ML VIAL ONE; -MIDAZOLAM HCL 1 MG/ML 2ML VIAL ONE; -NEOMYCIN/POLYMYX/DEXAMETH OP OINT PER APP CHARGE ONE; -POVIDONE-IODINE OP SOLN (SURGERY CNTR CHARGING ONLY) ONE; -PROPARACAINE 0.5% OP SOLN PER DROP CHARGE OPR SCH; -PROPOFOL IV EMULSION 10 MG/ML 20 ML VIAL IV ONE; -TIMOLOL MALEATE 0.5% OP SOLN PER DROP CHARGE ONE; +WARF5TAB7 PO
[2017-05-28 12:31] LABS: HEMOGLOBIN A1C 7.6 % (4.5-5.6)
[2017-05-28 12:44] LABS: ALBUMIN 3.4 gm/dl (3.4-5.0); ALT/SGPT 34 U/L (12-78); AST/SGOT 25 U/L (15-37); BLOOD UREA NITROGEN 17 mg/dl (7-18); CALCIUM 8.6 mg/dl (8.5-10.1); CARBON DIOXIDE 28 mmol/L (21-32); CHOLESTEROL 141 mg/dl (0-200); CREATININE 0.65 mg/dl (0.60-1.20); GLUCOSE 132 mg/dl (70-99); POTASSIUM 4.5 mmol/L (3.5-5.1); SODIUM 135 mmol/L (136-145)
[2017-05-28 12:55] LABS: ALKALINE PHOSPHATASE 113 U/L (45-117); LDL CHOLESTEROL CALCULATED 63 mg/dl; TOTAL PROTEIN 7.3 gm/dl (6.4-8.2)
[2017-05-28 13:32] LABS: CREATININE RANDOM URINE 54.2 mg/dl
== END | disposition home or self-care (01) ==
LOC: C.LABBFT 10:24
PROVIDERS: ATTEND Internal Medicine
DX: E11.65 Type 2 diabetes mellitus with hyperglycemia (principal); E53.8 Deficiency of other specified B group vitamins; E03.9 Hypothyroidism, unspecified; E78.00 Pure hypercholesterolemia, unspecified

== ENCOUNTER → 2017-08-06 | Outpatient (CLI) | payer OTHER ==
--- NOTE | 2017-08-06 14:14 | MAMMOGRAPHY REPORT ---
UNILATERAL LEFT DIGITAL DIAGNOSTIC MAMMOGRAM TOMOSYNTHESIS WITH CAD: 08/06/2017 CLINICAL HISTORY: History of left breast cancer status post lumpectomy December 2015 as well as radiati on therapy. The patient reports diffuse nonfocal left breast pain since her surgery. She denies any palpable lumps or other new complaints. TECHNIQUE: Breast tomosynthesis in addition to standard 2D mammography was performed. Current study was also evaluated with a Computer Aided Detection (CAD) system. Left CC and MLO 2D and tomosynthesi s images and spot magnification left CC and ML views were obtained. Note that the left MLO view is s omewhat suboptimal and the pectoralis muscle is not included on the image as the patient could not to lerate proper positioning. COMPARISON: Comparison is made to exams dated: 01/27/2017 mammogram, 07/22/2016 mammogram, 01/04/2016 lo calization, 12/18/2015 ultrasound, 12/18/2015 ultrasound biopsy, and 11/15/2014 mammogram - [facility]. BREAST COMPOSITION: There are scattered areas of fibroglandular density in the left breast. FINDINGS: There are stable posttreatment changes in the left central breast from prior lumpectomy, in cluding stable density, architectural distortion, and benign fat necrosis at the surgical bed. A squ are marker beltran an area of pain described by the patient in the left lateral breast; no suspicious m asses or other suspicious mammographic abnormalities are seen in this region. The remainder of the l eft breast is stable compared to prior exams, without suspicious masses, calcifications, or areas of architectural distortion noted. Scattered benign-appearing left breast calcifications are stable com pared to prior exams. IMPRESSION: ACR-BI-RADS CATEGORY 3: PROBABLY BENIGN Stable posttreatment changes in the left breast, without mammographic evidence of malignancy in the l eft breast. Recommend bilateral diagnostic tomosynthesis mammograms in 6 months, to reevaluate left breast posttreatment changes and for routine mammography of the right breast. Also recommend clinica l follow-up for left breast pain. The patient has been verbally notified of the results. Approximately 10% of breast cancers are not detected with mammography. A negative mammographic report should not delay biopsy if a clinically suggestive mass is present. Cindy Palmer M.D. /:08/06/2017 11:18:14 [employer]: Martha Rosales, [facility] letter sent: Personal History 3 BI-RADS Code: ACR-BI-RADS Category 3: Probably Benign
== END | disposition home or self-care (01) ==
LOC: C.MAMM 10:41
PROVIDERS: ATTEND Surgery
DX: N64.4 Mastodynia (principal); Z85.3 Personal history of malignant neoplasm of breast

== ENCOUNTER → 2017-10-06 | Outpatient (CLI) | payer OTHER ==
[~2017-10-06] MED LIST changes: -ANAS1TAB6 PO; +ANAS1TAB7 PO
[2017-10-06 13:50] LABS: HEMOGLOBIN A1C 6.9 % (4.5-5.6)
== END | disposition home or self-care (01) ==
LOC: C.LABBFT 09:47
PROVIDERS: ATTEND Internal Medicine
DX: E11.65 Type 2 diabetes mellitus with hyperglycemia (principal)

== ENCOUNTER → 2017-10-07 | Outpatient (CLI) | payer OTHER | END | disposition home or self-care (01) | LOC: C.LABBFT 12:05 | PROVIDERS: ATTEND Physician Assistant Medical | DX: E03.9 Hypothyroidism, unspecified (principal) ==

== ENCOUNTER 2019-07-29 20:35 | Inpatient (IN) ==
[2019-07-29] MEDS ORDERED: SODIUM CHLORIDE 0.9% 1000ML 500 ML IV ONE (21:44)
[2019-07-29] MEDS ORDERED: ACETAMINOPHEN 500 MG TAB PO STA (21:45)
--- NOTE | 2019-07-29 21:58 | XRay Report ---
XR chest 1V portable CLINICAL HISTORY: weakness mental status change. Cough. COMPARISON STUDY: 11/26/2017 FINDINGS: The bones soft tissues and hemidiaphragms are normal. The cardiomediastinal silhouette is n ormal. The lungs are clear. The pulmonary vasculature is normal. IMPRESSION: Negative chest. ACT 112: Negative or not required by law. The above report was generated using voice recognition software. It may contain grammatical, syntax or spelling errors. Electronically signed by: Gray Tobar M.D. 07/29/2019 9:57 PM
[2019-07-29] MEDS ORDERED: MAGNESIUM SULFATE / D5W 1 GM/100 ML BAG IV ONE (22:01)
[2019-07-29] MEDS ORDERED: DiphenhydrAMINE HCL 50 MG/ML VIAL IV STA (22:01)
[2019-07-29] MEDS ORDERED: PROCHLORPERAZINE 1 ML IV ONE (22:01)
--- NOTE | 2019-07-29 22:08 | Emergency Department Note ---
History of Present Illness General Chief complaint: Cough Stated complaint: COUGH, RESPITORY Time Seen by Provider: 07/29/19 21:12 Source: patient, family, RN notes reviewed and old records reviewed Mode of arrival: ambulatory Limitations: no limitations History of Present Illness Provider complaint: headache Onset (ago): day(s) 2 Location: head Radiation: non-radiation Severity: severe Pain Consistency: + constant Maximum Pain Intensity: 10 Current Pain Intensity: 10 Quality: + sharp Relieved By: + none Exacerbated By: + none Associated symptoms: + denies other symptoms Treatments prior to arrival: other (Tylenol) This is a 69-year-old female who is on Eliquis who presents the emergency department complaining of headache as well as severe cough that is been ongoing for at least a day. The patient describes the headache as a migraine she reports no neck pain with the headache however it came on while she was coughing yesterday. The patient reports a cough that is severe. She took Tylenol marie roximately 6 hours ago today with no relief in her pain. She does not use breathing treatments at home. The patient is on Etreasurebox Home Medications Home Medications Medication Instructions Recorded Confirmed Type cyanocobalamin (vitamin B-12) 1,000 mcg IM MONTHLY 02/04/18 07/29/19 History 1,000 mcg/mL injection kit lisinopril 10 mg tablet 10 mg PO [facility] 02/04/18 07/29/19 History multivitamin 1 tab PO [facility] 02/04/18 07/29/19 History blood-glucose meter #1 ea 12/24/18 06/16/19 History pregabalin 75 mg capsule 75 mg PO BID #60 cap 03/08/19 07/29/19 Rx metoprolol tartrate 25 mg tablet 25 mg PO BID #180 tab 04/08/19 07/29/19 Rx glipizide 10 mg tablet 10 mg PO BID #180 tab 04/20/19 07/29/19 Rx blood sugar diagnostic #10 ea 05/04/19 06/16/19 History blood-glucose meter ea 05/04/19 06/16/19 History lancets 33 gauge #100 ea 05/04/19 06/16/19 History pen needle, diabetic 32 gauge x ea 05/04/19 06/16/19 History 5/32" meclizine 25 mg tablet 25 mg PO Q6H PRN #30 tab 06/02/19 07/29/19 Rx acetaminophen [Tylenol Extra 500 mg PO Q6H PRN 07/29/19 07/29/19 History Strength] anastrozole 1 mg PO QAM 07/29/19 07/29/19 History atorvastatin 40 mg PO HS 07/29/19 07/29/19 History cholecalciferol (vitamin D3) 1,000 unit PO QAM 07/29/19 07/29/19 History [Vitamin D3] dextromethorphan polistirex 10 ml PO Q12H PRN 07/29/19 07/29/19 History [Delsym 12 hour] duloxetine 60 mg PO QAM 07/29/19 07/29/19 History insulin glargine [Lantus Solostar 30 units SQ HS 07/29/19 07/29/19 History U-100 Insulin] levothyroxine 37.5 mcg PO QAM 07/29/19 07/29/19 History linagliptin 5 mg PO QAM 07/29/19 07/29/19 History pantoprazole 40 mg PO QAM 07/29/19 07/29/19 History rivaroxaban [Xarelto] 20 mg PO QAM 07/29/19 07/29/19 History verapamil 120 mg PO QAM 07/29/19 07/29/19 History Allergies Allergy/AdvReac Type Severity Reaction Status Date / Time meperidine [From Demerol] AdvReac Mild Not Verified 07/29/19 21:36 tolerated. venlafaxine [From Effexor] AdvReac Mild Not Verified 07/29/19 21:36 tolerated metformin AdvReac Unknown INSOMNIA Verified 07/29/19 21:36 amoxicillin [From Augmentin] AdvReac Verified 07/29/19 21:36 clavulanic acid AdvReac Verified 07/29/19 21:36 [From Augmentin] Past Med/Surg History Medical History Abdominal wound dehiscence (Chronic 06/15/14) Arthritis (Chronic) Atrial fibrillation (Chronic) Atrial flutter (Inactive) Atrial flutter (Chronic) Breast cancer (Chronic 12/18/15) "Abnormal left breast mammogram Status post core needle biopsy 12/18/2015 revealing infiltrating ductal carcinoma Estrogen receptor positive, progesterone receptor positive, HER-2/po negative Status post left needle localization lumpectomy and sentinel lymph node biopsy 01/04/2016 Stage pT1c pN0M0 Status post completion of radiation therapy 02/13/2016 received 3850 cGy utilizing accelerated partial breast irradiation." On 01/17/16 14:10 Deidre M You wrote "Abnormal left breast mammogram Status post core needle biopsy 12/18/2015 revealing infiltrating ductal carcinoma Estrogen receptor positive, progesterone receptor positive, HER-2/po negative Status post left needle localization lumpectomy and sentinel lymph node biopsy 01/04/2016 Stage pT1c pN0M0" Cervical spine disease (Chronic) Chronic anemia (Chronic) Chronic anticoagulation (Chronic) Chronic pain (Chronic) Closed head injury (Chronic) Constipation (Chronic) Dehydration (Resolved) Depression (Chronic) Diabetes mellitus type 2, uncontrolled (Chronic) Facial laceration (Chronic) Fall (Chronic) Frequent falls (Chronic) Gait disturbance (Chronic) Gastroesophageal reflux disease (Chronic) Hypercholesterolemia (Chronic) Hypocalcemia (Chronic) Hypotension (Chronic) Hypothyroidism (Chronic) Infiltrating ductal carcinoma of left breast (Acute) Internal hemorrhoids (Chronic) Leg weakness, bilateral (Chronic) Lipodystrophy (Chronic) Lumbar radiculopathy (Chronic) Memory changes (Chronic) Nasal bone fractures (Chronic) Obesity (Chronic) Obstructive sleep apnea (Chronic) Peripheral neuropathy (Chronic) Positive ESTEPHANIA (antinuclear antibody) (Chronic) Recurrent incisional hernia with incarceration (Chronic 05/16/14) Renal failure (Chronic) Rib contusion (Chronic) Sternal fracture (Chronic) Subtherapeutic international normalized ratio (INR) (Chronic) Traumatic hematoma of forehead (Chronic) Vertigo (Chronic) Vitamin B12 deficiency (Chronic) Surgical History History of section History of total knee arthroplasty Status post appendectomy Status post arthroscopy of left shoulder Status post gastric bypass for obesity Status post laparoscopic cholecystectomy Status post lumbar spine surgery for decompression of spinal cord Status post panniculectomy Status post partial mastectomy of left breast Status post repair of ventral hernia Status post total abdominal hysterectomy and bilateral salpingo-oophorectomy Status post total hip replacement, bilateral Family History Unknown Emphysema lung Breast cancer Social History Preferred Language: Irish Communication Ability: Effective Hearing Ability: Normal Senior Physician Required: No Beliefs That Will Affect Care: Anabaptist Anabaptist Beliefs: Sabianism and Cultural marital status: Current Living Situation: Spouse current occupational status: retired Feels Safe at Home: Yes Smoking Status: Never smoker Hx Alcohol Use: No Hx Substance Use: No Childhood Exposure to Second-Hand Smoke: Yes caffeine: Yes Dental Care, Regularly: No Physical Activity Frequency: 1-2 Times per Week Seatbelt Use: always Sunscreen Use: No Review of Systems A total of 10 systems reviewed and were otherwise negative Physical Exam Vital Signs Vital Signs - 24 hr 07/29/19 20:55 07/29/19 21:43 07/29/19 22:35 Temperature 38.3 C H 38.2 C H Temperature Source Oral Oral Pulse Rate 116 H Pulse Rate [Left Apical] Pulse Rhythm Irregular Pulse Rhythm [Left Apical] Regular Pulse Strength [Left Apical] Normal Respiratory Rate 22 25 H Respiratory Effort / Characteristics Spontaneous Respiratory Depth Normal Respiratory Pattern Regular Blood Pressure 138/82 Blood Pressure [Left Arm] 142/100 H Blood Pressure Mean 100 Blood Pressure Mean [Left Arm] 114 Blood Pressure Position [Left Arm] Lying Pulse Oximetry 93 96 Oxygen Delivery Method Room Air Room Air Room Air Oxygen Flow Rate Sepsis Recent Fever Within 48 Hours Yes Sepsis New/Unexplained Change in Mental Status No Sepsis Action Taken by Nursing No Action Required 07/30/19 00:19 Temperature Temperature Source Pulse Rate Pulse Rate [Left Apical] 114 H Pulse Rhythm Pulse Rhythm [Left Apical] Irregular Pulse Strength [Left Apical] Normal Respiratory Rate 18 Respiratory Effort / Characteristics Non-Labored Spontaneous Respiratory Depth Normal Respiratory Pattern Blood Pressure Blood Pressure [Left Arm] 140/79 Blood Pressure Mean Blood Pressure Mean [Left Arm] 99 Blood Pressure Position [Left Arm] Lying Pulse Oximetry 96 Oxygen Delivery Method Nasal Cannula Oxygen Flow Rate 2 Sepsis Recent Fever Within 48 Hours Sepsis New/Unexplained Change in Mental Status Sepsis Action Taken by Nursing GENERAL: Patient is a healthy-appearing well-nourished female HEAD: Normocephalic atraumatic EYES: Ocular movements intact pupils equal and react to light OROPHARYNX mucous membranes are moist no exudates present no erythema or edema present NECK: Supple no nuchal rigidity CHEST: Good equal expansion LUNGS: Clear and equal to auscultation CARDIAC: Normal S1 and S2 ABDOMEN: Soft nontender no guarding BACK: No CVA tenderness EXTREMITIES: No pain upon palpation normal muscle strength in all groups no clubbing cyanosis or edema NEURO: Patient is following commands is answering questions appropriately. Alert and oriented x3 Cranial Nerves 2-12 grossly intact Course Administered Medications Discontinued Medications Acetaminophen (Tylenol) 1,000 mg PO NOW STA Stop: 07/29/19 21:46 Last Admin: 07/29/19 22:34 Dose: 1,000 mg Documented by: [id number] Diphenhydramine HCl (Benadryl) 25 mg IV NOW STA Stop: 07/29/19 22:02 Last Admin: 07/29/19 22:34 Dose: 25 mg Documented by: [id number] Sodium Chloride (Nss 1000ml) 500 mls @ 999 mls/hr IV .Q31M ONE Stop: 07/29/19 22:14 Last Infusion: 07/29/19 23:10 Dose: 0 mls/hr Documented by: [id number] Admin: 07/29/19 22:36 Dose: 999 mls/hr Documented by: [id number] Magnesium Sulfate/Dextrose (Magnesium Sulfate / D5w) 1 gm in 100 mls @ 100 ml s/hr IV ONE ONE Stop: 07/29/19 23:00 Last Infusion: 07/29/19 23:38 Dose: 0 mls/hr Documented by: [id number] Admin: 07/29/19 22:33 Dose: 100 mls/hr Documented by: [id number] Prochlorperazine (Compazine) 1 mls @ 1 mls/min IV ONE ONE Stop: 07/29/19 22:02 Last Admin: 07/29/19 22:33 Dose: 1 mls/min Documented by: [id number] Medical Decision Making Differential Diagnosis My differential diagnosis includes pneumonia, subarachnoid hemorrhage, intracranial hemorrhage, influenza Medical Records Attestation: I reviewed the patient's medical records. Home Medications Current Medication List: was personally reviewed by me Laboratory Data Attestation: I reviewed the patient's lab results. Result diagrams: 07/29/19 22:08 07/29/19 22:08 Lab Results 07/29/19 07/29/19 07/29/19 Range/Units 21:50 22:08 22:08 WBC 6.71 (4.8-10.8) K/uL RBC 4.38 (4.2-5.4) M/uL Hgb 13.0 (12.0-16.0) g/dL Hct 39.7 (37-47) % MCV 90.6 (80-100) fL MCH 29.7 (25-34) pg MCHC 32.7 (32-36) g/dL RDW Std Deviation 49.1 H (36.4-46.3) fL RDW Coeff of [place] 14.8 H (11.5-14.5) % Plt Count 190 (130-400) K/uL MPV 11.1 H (7.4-10.4) fL Immature Gran % (Auto) 0.1 % Neut % (Auto) 79.6 % Lymph % (Auto) 10.1 % [place] % (Auto) 8.9 % Eos % (Auto) 1.2 % Baso % (Auto) 0.1 % Immature Gran # (Auto) 0.01 (0.00-0.02) K/uL Neut # (Auto) 5.33 (1.4-6.5) K/uL Lymph # (Auto) 0.68 L (1.2-3.4) K/uL [place] # (Auto) 0.60 H (0.11-0.59) K/uL Eos # (Auto) 0.08 (0-0.5) K/uL Baso # (Auto) 0.01 (0-0.2) K/uL Sodium 134 L (136-145) mmol/L Potassium 4.1 (3.5-5.1) mmol/L Chloride 101 (98-107) mmol/L Carbon Dioxide 28 (21-32) mmol/L Anion Gap 6.0 (3-11) BUN 12 (7-18) mg/dl Creatinine 0.87 (0.6-1.2) mg/dl Est Cr Clr Drug Dosing 60.9 ml/min Est GFR ( Amer) 77.7 Est GFR (Non-Af Amer) 67.0 BUN/Creatinine Ratio 13.5 (10-20) Glucose 221 H (70-99) mg/dl Calcium 9.4 (8.5-10.1) mg/dl Total Bilirubin 0.3 (0.2-1) mg/dl AST 20 (15-37) U/L ALT 32 (12-78) U/L Alkaline Phosphatase 137 H (45-117) U/L Total Creatine Kinase 152 (26-192) U/L CK-MB (CK-2) 1.1 (0.5-3.6) ng/ml CK/CKMB % Calc 0.7 (0-3.0) Troponin I < 0.015 (0-0.045) ng/ml Total Protein 8.4 H (6.4-8.2) gm/dl Albumin 3.6 (3.4-5.0) gm/dl Globulin 4.8 H (2.5-4.0) gm/dl Albumin/Globulin Ratio 0.8 L (0.9-2) TSH 1.730 (0.300-4.500) uIu/ml Influenza Type A (PCR) Pos for Influ A A* (Neg) Influenza Type B (PCR) Neg for Influ B (Neg) Imaging Data Radiologist's Impression: Patient: MUNIRA EDWARDS Admit Date: 07/29/19 MR#: [id number] Address1: [address] [place] [address] Acct ID:[id number] Address2: [address] Date: 1950 [facility] Zip: [place] [address] Age: 69 Location: ED Sex: F Room/Bed: Att Phy: Diagnosis: COUGH, RESPITORY Nicolasa Phy: Quinn Lovett MD Service Date: 07/29/19 Fam Phy: Interpreting Phy: Gray Tobar MD Admit Phy: Ordering Phy: Tyshawn Calzada MD cc: ~ XR chest 1V portable CLINICAL HISTORY: weakness mental status change. Cough. COMPARISON STUDY: 11/26/2017 FINDINGS: The bones soft tissues and hemidiaphragms are normal. The cardiomediastinal silhouette is normal. The lungs are clear. The pulmonary vasculature is normal. IMPRESSION: Negative chest. ACT 112: Negative or not required by law. The above report was generated using voice recognition software. It may contain grammatical, syntax or spelling errors. Electronically signed by: Gray Tobar M.D. 07/29/2019 9:57 PM ECG Data Attestation: I personally reviewed and interpreted this ECG as follows: Indication: + SOB/dyspnea Rate (beats per minute): 116 Rhythm: + junctional ECG Intervals/blocks: + Normal QT-c (439) ECG [place]: + Normal ECG ST segments: no Normal ST segments and no ST depression MDM Narrative This is a 69-year-old female who presents the emergency department complaining of cough along with generalized body aches. The patient is positive for influenza. She is hypoxic and is requiring oxygen here. She was given an hour- long breathing treatment here in the emergency department along with a migraine cocktail including Tylenol Benadryl magnesium and Compazine. Repeat examination revealed improvement the patient's symptoms. CAT scan of the head does not show any significant findings. Based on this I did discuss the case with the hospitalist service who did agree to admit the patient. Patient family in agreement with the treatment plan Impression & Plan Influenza A, Hypoxia Discharge Plan Visit Data Chief Complaint: Cough Stated Complaint: COUGH, RESPITORY ED Provider: Tyshawn Calzada Discharge Problem: Influenza A, Hypoxia Forms Stand Alone Forms: [facility] Prescriptions Prescriptions: No Action cyanocobalamin (vitamin B-12) 1,000 mcg/mL kit 1,000 mcg IM MONTHLY RF: 0 lisinopril 10 mg tablet 10 mg PO QAM RF: 0 multivitamin tablet 1 tab PO QAM RF: 0 metoprolol tartrate 25 mg tablet 25 mg PO BID Qty: 180 RF: 3 glipizide 10 mg tablet 10 mg PO BID Qty: 180 RF: 3 meclizine 25 mg tablet 25 mg PO Q6H PRN (Reason: dizziness) Qty: 30 RF: 0 (DME) blood-glucose meter [OneTouch UltraMini] kit See Dose Instructions .ROUTE .MEDSUPPLY Qty: 1 RF: 0 (DME) OneTouch Ultra Blue Test Strip strip See Dose Instructions .ROUTE .MEDSUPPLY Qty: 10 RF: 0 (DME) lancets [OneTouch Delica Lancets] 33 gauge misc See Dose Instructions .ROUTE .MEDSUPPLY Qty: 100 RF: 0 pregabalin [Lyrica] 75 mg capsule 75 mg PO BID Qty: 60 RF: 5 (DME) blood-glucose meter [OneTouch Ultra2 Meter] misc See Rx Instructions .ROUTE .MEDSUPPLY RF: 0 (DME) pen needle, diabetic [BD Ultra-Fine Dulce Pen Needle] 32 gauge x 5/32" needle See Rx Instructions .ROUTE .MEDSUPPLY RF: 0 cholecalciferol (vitamin D3) [Vitamin D3] 25 mcg (1,000 unit) Capsule 1,000 unit PO QAM RF: 0 verapamil 120 mg tablet extended release 120 mg PO QAM RF: 0 atorvastatin 40 mg tablet 40 mg PO HS RF: 0 anastrozole 1 mg tablet 1 mg PO QAM RF: 0 levothyroxine 25 mcg tablet 37.5 mcg PO QAM RF: 0 pantoprazole 40 mg tablet,delayed release (DR/EC) 40 mg PO QAM RF: 0 duloxetine 60 mg capsule,delayed release(DR/EC) 60 mg PO QAM RF: 0 Lantus Solostar U-100 Insulin 100 unit/mL (3 mL) insulin pen 30 units SQ HS RF: 0 linagliptin 5 mg tablet 5 mg PO QAM RF: 0 Xarelto 20 mg tablet 20 mg PO QAM RF: 0 dextromethorphan polistirex [Delsym 12 hour] 30 mg/5 mL Suspension,Extended Rel 12 Hr 10 ml PO Q12H PRN (Reason: Cough) RF: 0 acetaminophen [Tylenol Extra Strength] 500 mg Tablet 500 mg PO Q6H PRN (Reason: Pain) RF: 0
[2019-07-29 22:17] LABS: Basophils # (auto) 0.01 K/uL (0-0.2); Basophils % (auto) 0.1 %; Eosinophils # (auto) 0.08 K/uL (0-0.5); Eosinophils % (auto) 1.2 %; Hematocrit (blood only) 39.7 % (37-47); Immature Granulocytes # (auto) 0.01 K/uL (0.00-0.02); Immature Granulocytes % (auto) 0.1 %; Lymphocytes # (auto) 0.68 K/uL (1.2-3.4); Lymphocytes % (auto) 10.1 %; Mean Corpuscular Hemoglobin 29.7 pg (25-34); Mean Corpuscular Hgb Conc 32.7 g/dL (32-36); Mean Corpuscular Volume 90.6 fL (80-100); Mean Platelet Volume 11.1 fL (7.4-10.4); Monocytes % (auto) 8.9 %; Neutrophils # (auto) 5.33 K/uL (1.4-6.5); Neutrophils % (auto) 79.6 %; Platelet Count 190 K/uL (130-400); RDW Coefficient of Variation 14.8 % (11.5-14.5); RDW Standard Deviation 49.1 fL (36.4-46.3); Red Blood Count 4.38 M/uL (4.2-5.4); White Blood Count 6.71 K/uL (4.8-10.8)
--- NOTE | 2019-07-29 22:29 | CT Scan Report ---
CT head/brain wo con CT DOSE: 1151.75 mGy.cm HISTORY: Headache. Mental status change. Pt c/o cough severe headache TECHNIQUE: Multiaxial CT images of the head were performed without the use of intravenous contrast. A dose lowering technique was utilized adhering to the principles of ALARA. Comparison: 11/26/2017 Findings: The paranasal sinuses and mastoid air cells are clear. The calvarium and skull base are int act. The ventricles and sulci are within normal limits. There is no mass, hematoma, midline shift, or acute infarct. Impression: No acute intracranial abnormality. Mild age-related chronic small vessel change. ACT 112: Negative or not required by law. The above report was generated using voice recognition software. It may contain grammatical, syntax or spelling errors. Electronically signed by: Gray Tobar M.D. 07/29/2019 10:28 PM
[2019-07-29 22:33] LABS: Alanine Aminotransferase 32 U/L (12-78); Albumin Level 3.6 gm/dl (3.4-5.0); Aspartate Aminotransferase 20 U/L (15-37); BUN Creatinine Ratio 13.5 (10-20); Blood Urea Nitrogen 12 mg/dl (7-18); Calcium 9.4 mg/dl (8.5-10.1); Carbon Dioxide 28 mmol/L (21-32); Chloride 101 mmol/L (98-107); Creatinine Clr Calc Pharmacy 60.9 ml/min; Est GFR (African American) 77.7; Glucose 221 mg/dl (70-99); Potassium 4.1 mmol/L (3.5-5.1); Sodium 134 mmol/L (136-145)
[2019-07-29 22:37] LABS: Influenza B virus by PCR Neg for Influ B (Neg)
[2019-07-29 22:43] LABS: Albumin Globulin Ratio 0.8 (0.9-2); Alkaline Phosphatase 137 U/L (45-117); Bilirubin,Total 0.3 mg/dl (0.2-1); Creatine Kinase 152 U/L (26-192); Creatine Kinase MB 1.1 ng/ml (0.5-3.6); Globulin 4.8 gm/dl (2.5-4.0); Total Protein 8.4 gm/dl (6.4-8.2); Troponin I < 0.015 ng/ml (0-0.045)
--- NOTE | 2019-07-30 00:48 | History & Physical Report ---
Date of Service July 30, 2019 Assessment & Plan (1) Influenza A: Patient febrile, tachycardic, tachypneic. Adequate oxygenation on room air, no evidence of pneumonia on chest x-ray Tamiflu 75 mg p.o. twice daily Droplet precautions Supportive care with IV fluids, nebs as needed, Tessalon Perles as needed, Tylenol Present on Admission?: Yes (2) Atrial fibrillation: Patient with history of atrial fibrillation, presently in accelerated junctional rhythm. Blood pressure stable. Patient asymptomatic Continue metoprolol 25 mg p.o. twice daily Continue verapamil 120 mg p.o. daily Continue rivaroxaban 20 mg p.o. daily Telemetry monitoring Present on Admission?: Yes (3) Diabetes mellitus type 2, uncontrolled: Blood sugar elevated at 221. Last hemoglobin A1c on 06/08/2019 = 8.3 We will hold oral agents, glipizide and linagliptin Continue Lantus 30 units nightly with insulin sliding scale. Goal blood sugar 100-1 40 Continue Lyrica 75 mg p.o. twice daily Present on Admission?: Yes (4) Hypercholesterolemia: Chronic. Stable. Continue atorvastatin 40 mg p.o. nightly Present on Admission?: Yes (5) Gastroesophageal reflux disease: Chronic. Stable. Continue Protonix Present on Admission?: Yes (6) Depression: Chronic. Stable. Well-controlled Continue Cymbalta 60 mg p.o. every morning Present on Admission?: Yes (7) Hypothyroidism: Chronic. Stable. TSH = 1.73 Continue Synthroid 37.5 mcg p.o. every morning Present on Admission?: Yes (8) Breast cancer: Continue anastrozole 1 mg p.o. every morning F/E/N - NSS @ 80mL/hr, monitor electroltyes and replete as needed, CC diet Ppx - Continue Rivaroxaban Code - Full Dispo - Observation to med with telemetry History of Present Illness Chief Complaint: Influenza Primary Care Provider: Quinn Lovett MD Faith Solorzano is a 69-year-old female with multiple medical problems presenting with influenza A. She reports 2 days of constant cough productive for green sputum, right-sided headache, congestion, sore throat, subjective fevers and chills. Otherwise denies chest pain/palpitations/shortness of breath/abdominal pain/nausea/vomiting/diarrhea/constipation. No additional complaints at this time On arrival to the ER she found to be febrile at 38.2, tachycardic at 160 bpm, tachypneic at 25 breaths/min, adequate saturation of 96% on room air ER course: Tylenol, Benadryl, magnesium, Phenergan Allergies Allergy/AdvReac Type Severity Reaction Status Date / Time meperidine [From Demerol] AdvReac Mild Not Verified 07/29/19 21:36 tolerated. venlafaxine [From Effexor] AdvReac Mild Not Verified 07/29/19 21:36 tolerated metformin AdvReac Unknown INSOMNIA Verified 07/29/19 21:36 amoxicillin [From Augmentin] AdvReac Verified 07/29/19 21:36 clavulanic acid AdvReac Verified 07/29/19 21:36 [From Augmentin] Home Medications Home Medications Medication Instructions Recorded Confirmed Type cyanocobalamin (vitamin B-12) 1,000 mcg IM MONTHLY ea 02/04/18 07/29/19 History 1,000 mcg/mL injection kit lisinopril 10 mg tablet 10 mg PO QAM 02/04/18 07/29/19 History multivitamin 1 tab PO QAM 02/04/18 07/29/19 History blood-glucose meter #1 ea 12/24/18 06/16/19 History pregabalin 75 mg capsule 75 mg PO BID #60 cap 03/08/19 07/29/19 Rx metoprolol tartrate 25 mg tablet 25 mg PO BID #180 tab 04/08/19 07/29/19 Rx glipizide 10 mg tablet 10 mg PO BID #180 tab 04/20/19 07/29/19 Rx blood sugar diagnostic #10 ea 05/04/19 06/16/19 History blood-glucose meter ea 05/04/19 06/16/19 History lancets 33 gauge #100 ea 05/04/19 06/16/19 History pen needle, diabetic 32 gauge x ea 05/04/19 06/16/19 History 5/32" meclizine 25 mg tablet 25 mg PO Q6H PRN #30 tab 06/02/19 07/29/19 Rx acetaminophen [Tylenol Extra 500 mg PO Q6H PRN 07/29/19 07/29/19 History Strength] anastrozole 1 mg PO QAM 07/29/19 07/29/19 History atorvastatin 40 mg PO HS 07/29/19 07/29/19 History cholecalciferol (vitamin D3) 1,000 unit PO QAM 07/29/19 07/29/19 History [Vitamin D3] dextromethorphan polistirex 10 ml PO Q12H PRN 07/29/19 07/29/19 History [Delsym 12 hour] duloxetine 60 mg PO QAM 07/29/19 07/29/19 History insulin glargine [Lantus Solostar 30 units SQ HS 07/29/19 07/29/19 History U-100 Insulin] levothyroxine 37.5 mcg PO QAM 07/29/19 07/29/19 History linagliptin 5 mg PO QAM 07/29/19 07/29/19 History pantoprazole 40 mg PO QAM 07/29/19 07/29/19 History rivaroxaban [Xarelto] 20 mg PO QAM 07/29/19 07/29/19 History verapamil 120 mg PO QAM 07/29/19 07/29/19 History Past Med/Surg History Medical History Abdominal wound dehiscence (Chronic 06/15/14) Arthritis (Chronic) Atrial fibrillation (Chronic) Atrial flutter (Inactive) Atrial flutter (Chronic) Breast cancer (Chronic 12/18/15) "Abnormal left breast mammogram Status post core needle biopsy 12/18/2015 revealing infiltrating ductal carcinoma Estrogen receptor positive, progesterone receptor positive, HER-2/po negative Status post left needle localization lumpectomy and sentinel lymph node biopsy 01/04/2016 Stage pT1c pN0M0 Status post completion of radiation therapy 02/13/2016 received 3850 cGy utilizing accelerated partial breast irradiation." On 01/17/16 14:10 Deidre Orta wrote "Abnormal left breast mammogram Status post core needle biopsy 12/18/2015 revealing infiltrating ductal carcinoma Estrogen receptor positive, progesterone receptor positive, HER-2/po negative Status post left needle localization lumpectomy and sentinel lymph node biopsy 01/04/2016 Stage pT1c pN0M0" Cervical spine disease (Chronic) Chronic anemia (Chronic) Chronic anticoagulation (Chronic) Chronic pain (Chronic) Closed head injury (Chronic) Constipation (Chronic) Dehydration (Resolved) Depression (Chronic) Diabetes mellitus type 2, uncontrolled (Chronic) Facial laceration (Chronic) Fall (Chronic) Frequent falls (Chronic) Gait disturbance (Chronic) Gastroesophageal reflux disease (Chronic) Hypercholesterolemia (Chronic) Hypocalcemia (Chronic) Hypotension (Chronic) Hypothyroidism (Chronic) Infiltrating ductal carcinoma of left breast (Acute) Internal hemorrhoids (Chronic) Leg weakness, bilateral (Chronic) Lipodystrophy (Chronic) Lumbar radiculopathy (Chronic) Memory changes (Chronic) Nasal bone fractures (Chronic) Obesity (Chronic) Obstructive sleep apnea (Chronic) Peripheral neuropathy (Chronic) Positive ESTEPHANIA (antinuclear antibody) (Chronic) Recurrent incisional hernia with incarceration (Chronic 05/16/14) Renal failure (Chronic) Rib contusion (Chronic) Sternal fracture (Chronic) Subtherapeutic international normalized ratio (INR) (Chronic) Traumatic hematoma of forehead (Chronic) Vertigo (Chronic) Vitamin B12 deficiency (Chronic) Surgical History History of section History of total knee arthroplasty Status post appendectomy Status post arthroscopy of left shoulder Status post gastric bypass for obesity Status post laparoscopic cholecystectomy Status post lumbar spine surgery for decompression of spinal cord Status post panniculectomy Status post partial mastectomy of left breast Status post repair of ventral hernia Status post total abdominal hysterectomy and bilateral salpingo-oophorectomy Status post total hip replacement, bilateral Family History Unknown Emphysema lung Breast cancer Social History Preferred Language: Chinese Communication Ability: Effective Hearing Ability: Normal Tiler Required: No Beliefs That Will Affect Care: Episcopalian Episcopalian Beliefs: Mandaeism and Cultural marital status: Current Living Situation: Spouse current occupational status: retired Feels Safe at Home: Yes Smoking Status: Never smoker Hx Alcohol Use: No Hx Substance Use: No Childhood Exposure to Second-Hand Smoke: Yes caffeine: Yes Dental Care, Regularly: No Physical Activity Frequency: 1-2 Times per Week Seatbelt Use: always Sunscreen Use: No Review of Systems Review of Systems: All systems reviewed & are unremarkable except as noted in HPI & below Physical Exam Physical Exam: General: patient resting comfortably, NAD, non-toxic in appearance, AA&O x 4 Skin: warm, dry, intact, no rashes or lesions HEENT: NC/AT, PERRL, EOMI, anicteric sclera, conjunctiva without injection, external ear normal to inspection and nontender, nares patent, moist mucus membranes, dentition intact, no oropharyngeal lesions, neck supple, trachea midline, no LAD, no thyromegaly, no JVD Heart: +S1/S2, irregular, tachycardic no m/r/g Lungs: equal air entry bilaterally, diffuse end expiratory wheezing, no rales/rhonchi Abd: +BS, soft, NT/ND, no masses/organomegaly/ascites Ext: warm, 2+ pulses in UE/LE bilaterally, no clubbing/cyanosis or edema Neuro: nonfocal, patient AA&O x 4, speech intact, no facial droop, moving all extremities on command with equal strength 5/5 Results & Data Vital Signs (Past 12 Hours) Vital Signs Temp Pulse Pulse Resp BP BP Pulse Ox 07/30/19 00:19 114 H 18 140/79 96 07/29/19 22:35 38.2 C H 25 H 142/100 H 96 07/29/19 20:55 38.3 C H 116 H 22 138/82 93 Laboratory Results Lab Results 07/29/19 07/29/19 07/29/19 Range/Units 21:50 22:08 22:08 WBC 6.71 (4.8-10.8) K/uL RBC 4.38 (4.2-5.4) M/uL Hgb 13.0 (12.0-16.0) g/dL Hct 39.7 (37-47) % MCV 90.6 (80-100) fL MCH 29.7 (25-34) pg MCHC 32.7 (32-36) g/dL RDW Std Deviation 49.1 H (36.4-46.3) fL RDW Coeff of Thompson 14.8 H (11.5-14.5) % Plt Count 190 (130-400) K/uL MPV 11.1 H (7.4-10.4) fL Immature Gran % (Auto) 0.1 % Neut % (Auto) 79.6 % Lymph % (Auto) 10.1 % Amelia % (Auto) 8.9 % Eos % (Auto) 1.2 % Baso % (Auto) 0.1 % Immature Gran # (Auto) 0.01 (0.00-0.02) K/uL Neut # (Auto) 5.33 (1.4-6.5) K/uL Lymph # (Auto) 0.68 L (1.2-3.4) K/uL Amelia # (Auto) 0.60 H (0.11-0.59) K/uL Eos # (Auto) 0.08 (0-0.5) K/uL Baso # (Auto) 0.01 (0-0.2) K/uL Sodium 134 L (136-145) mmol/L Potassium 4.1 (3.5-5.1) mmol/L Chloride 101 (98-107) mmol/L Carbon Dioxide 28 (21-32) mmol/L Anion Gap 6.0 (3-11) BUN 12 (7-18) mg/dl Creatinine 0.87 (0.6-1.2) mg/dl Est Cr Clr Drug Dosing 60.9 ml/min Est GFR ( Amer) 77.7 Est GFR (Non-Af Amer) 67.0 BUN/Creatinine Ratio 13.5 (10-20) Glucose 221 H (70-99) mg/dl Calcium 9.4 (8.5-10.1) mg/dl Total Bilirubin 0.3 (0.2-1) mg/dl AST 20 (15-37) U/L ALT 32 (12-78) U/L Alkaline Phosphatase 137 H (45-117) U/L Total Creatine Kinase 152 (26-192) U/L CK-MB (CK-2) 1.1 (0.5-3.6) ng/ml CK/CKMB % Calc 0.7 (0-3.0) Troponin I < 0.015 (0-0.045) ng/ml Total Protein 8.4 H (6.4-8.2) gm/dl Albumin 3.6 (3.4-5.0) gm/dl Globulin 4.8 H (2.5-4.0) gm/dl Albumin/Globulin Ratio 0.8 L (0.9-2) TSH 1.730 (0.300-4.500) uIu/ml Influenza Type A (PCR) Pos for Influ A A* (Neg) Influenza Type B (PCR) Neg for Influ B (Neg) Diagnostic Findings XR chest 1V portable CLINICAL HISTORY: weakness mental status change. Cough. COMPARISON STUDY: 11/26/2017 FINDINGS: The bones soft tissues and hemidiaphragms are normal. The cardiomediastinal silhouette is normal. The lungs are clear. The pulmonary vasculature is normal. IMPRESSION: Negative chest. ACT 112: Negative or not required by law. The above report was generated using voice recognition software. It may contain grammatical, syntax or spelling errors. CT head/brain wo con CT DOSE: 1151.75 mGy.cm HISTORY: Headache. Mental status change. Pt c/o cough severe headache TECHNIQUE: Multiaxial CT images of the head were performed without the use of intravenous contrast. A dose lowering technique was utilized adhering to the principles of ALARA. Comparison: 11/26/2017 Findings: The paranasal sinuses and mastoid air cells are clear. The calvarium and skull base are intact. The ventricles and sulci are within normal limits. There is no mass, hematoma, midline shift, or acute infarct. Impression: No acute intracranial abnormality. Mild age-related chronic small vessel change. ACT 112: Negative or not required by law. The above report was generated using voice recognition software. It may contain grammatical, syntax or spelling errors. Electronically signed by: Gray Tobar M.D. 07/29/2019 10:28 PM Dictated: 07/29/192225 Transcribed: 07/29/192225 ECG Additional Comments: EKG significant for accelerated junctional rhythm at 116 bpm, no acute ischemic changes Code Status & VTE Plan Code Status Full code VTE Prophylaxis Plan VTE Prophylaxis will be ordered: Yes PG Care Time/CCT Total # of Minutes Spent Total Time Spent with Patient: Total time spent is greater than 50% in coordination of care (as documented) at patient's floor/unit and/or counseling patient: Coding Level of Care Code 10662 OBS Care - Level 3 Diagnoses Influenza A J10.1 Atrial fibrillation I48.91 Atrial fibrillation type: unspecified Diabetes mellitus type 2, uncontrolled E11.65 Glycemic state: with hyperglycemia Hypercholesterolemia E78.00 Gastroesophageal reflux disease K21.9 Esophagitis presence: esophagitis presence not specified Depression F32.9 Depression Type: unspecified Hypothyroidism E03.9 Hypothyroidism type: unspecified Breast cancer C50.919 Breast location: unspecified site of breast Estrogen receptor status: unspecified Patient sex: female Laterality: unspecified laterality (1) Atrial fibrillation Atrial fibrillation type: unspecified Qualified Code(s): I48.91 - Unspecified atrial fibrillation (2) Diabetes mellitus type 2, uncontrolled Glycemic state: with hyperglycemia Qualified Code(s): E11.65 - Type 2 diabetes mellitus with hyperglycemia (3) Gastroesophageal reflux disease Esophagitis presence: esophagitis presence not specified Qualified Code(s): K21.9 - Gastro-esophageal reflux disease without esophagitis (4) Depression Depression Type: unspecified Qualified Code(s): F32.9 - Major depressive disorder, single episode, unspecified (5) Breast cancer Breast location: unspecified site of breast Estrogen receptor status: unspecified Patient sex: female Laterality: unspecified laterality Qualified Code(s): C50.919 - Malignant neoplasm of unspecified site of unspecified female breast (6) Hypothyroidism Hypothyroidism type: unspecified Qualified Code(s): E03.9 - Hypothyroidism, unspecified
[2019-07-30] MEDS ORDERED: GLUCOSE 10 TABS/TUBE PO PRN (02:10)
[2019-07-30] MEDS ORDERED: DEXTROSE 50% 50 ML SYRINGE IV PRN (02:10)
[2019-07-30] MEDS ORDERED: GLUCAGON FOR INJ 1 MG VIAL SQ PRN (02:10)
[2019-07-30] MEDS ORDERED: ONDANSETRON INJ 2 MG/ML 2 ML VIAL IV PRN (02:10)
[2019-07-30] MEDS ORDERED: GLUCOSE 40% GEL 15 GM TUBE PO PRN (02:10)
[2019-07-30] MEDS ORDERED: CARBOHYDRATES FOR HYPOGLYCEMIA PO PRN (02:10)
[2019-07-30 02:35] LABS: Magnesium 1.9 mg/dl (1.8-2.4)
[2019-07-30] MEDS ORDERED: PNEUMOCOCCAL ADMINISTRATION CHARGE ONE (02:50)
[2019-07-30] MEDS ORDERED: PNEUMOCOCCAL POLYSACCHARIDES 25 MCG/0.5 ML VIAL/SYR IM ONE (02:50)
[2019-07-30] MEDS: SODIUM CHLORIDE 0.9% 1000ML 1,000 ML IV SCH ×2 (02:58→16:25)
[2019-07-30] MEDS: METOPROLOL TARTRATE 25 MG TAB PO SCH ×3 (03:19→20:00)
[2019-07-30] MEDS: OSELTAMIVIR PHOSPHATE 75 MG CAP PO SCH ×3 (03:20→20:01)
[2019-07-30] MEDS: INSULIN ASPART 100 UNITS/ML 3 ML PEN SC SCH ×5 (03:30→22:52)
[2019-07-30] MEDS: LEVOTHYROXINE SODIUM 25 MCG TABLET PO SCH (06:07)
[2019-07-30] MEDS: ACETAMINOPHEN 500 MG TAB PO PRN ×2 (08:06→18:16)
[2019-07-30] MEDS: DULOXETINE HCL 60 MG CAP PO SCH (08:07)
[2019-07-30] MEDS: ANASTROZOLE 1 MG TAB PO SCH (08:07)
[2019-07-30] MEDS: BENZONATATE 100 MG CAPSULE PO SCH ×3 (08:08→20:02)
[2019-07-30] MEDS: lisinopriL 10 MG TAB PO SCH (08:08)
[2019-07-30] MEDS: VERAPAMIL HCL 120 MG TABCR PO SCH (08:08)
[2019-07-30] MEDS: PANTOprazole 40 MG TAB PO SCH (08:08)
[2019-07-30] MEDS: RIVAROXABAN 20 MG TAB PO SCH (08:09)
[2019-07-30] MEDS: PREGABALIN 75 MG CAP PO SCH ×2 (08:19→20:00)
[2019-07-30 09:07] LABS: Appearance Urine Clear (Clear); Bacteria Urine Automated Negative (Negative); Bilirubin Urine Negative (Negative); Blood Urine Negative (Negative); Cast Urine Automated 0 /lpf (0-5); Color Urine Yellow; Glucose Urine UA Negative (Negative); Ketones Urine Negative (Negative); Leukocyte Esterase Urine Trace (Negative); Nitrite Urine Negative (Negative); Protein Urine Negative (Negative); Specific Gravity Urine 1.018 (1.000-1.030); Urobilinogen Urine Negative (Negative); pH Urine 6.5 (4.5-7.5)
--- NOTE | 2019-07-30 16:24 | Electrocardiogram Report ---
Test Reason : Blood Pressure : / mmHG Vent. Rate : 116 BPM Atrial Rate : 116 BPM P-R Int : 000 ms QRS Dur : 072 ms QT Int : 316 ms P-R-T Axes : 000 000 -07 degrees QTc Int : 439 ms Atrial fibrillation Nonspecific ST abnormality Abnormal ECG When compared with ECG of 26-NOV-2017 13:33, Atrial fibrillation has replaced Atrial flutter Confirmed by Huy Ramires ([id number]) on 07/30/2019 4:24:36 PM Referred By: REFERRED SELF Confirmed By:Huy Ramires
--- NOTE | 2019-07-30 16:32 | Electrocardiogram Report ---
Test Reason : Blood Pressure : / mmHG Vent. Rate : 129 BPM Atrial Rate : 375 BPM P-R Int : 000 ms QRS Dur : 074 ms QT Int : 310 ms P-R-T Axes : 000 036 000 degrees QTc Int : 454 ms Atrial fibrillation with rapid ventricular response Nonspecific ST and T wave abnormality Abnormal ECG When compared with ECG of 29-JUL-2019 21:59, (unconfirmed) ST more depressed Anterior leads Nonspecific T wave abnormality, worse in Inferior leads Confirmed by Huy Ramires ([id number]) on 07/30/2019 4:31:39 PM Referred By: REFERRED SELF Confirmed By:Huy Ramires
[2019-07-30] MEDS: ATORVASTATIN 40 MG TAB PO SCH (19:59)
[2019-07-30] MEDS: INSULIN GLARGINE SOLOSTAR 100 UNITS/ML 3 ML PEN SQ SCH (22:51)
[2019-07-31] MEDS: LEVOTHYROXINE SODIUM 25 MCG TABLET PO SCH (07:12)
[2019-07-31 07:43] LABS: Basophils # (auto) 0.01 K/uL (0-0.2); Basophils % (auto) 0.2 %; Eosinophils # (auto) 0.17 K/uL (0-0.5); Eosinophils % (auto) 3.6 %; Hematocrit (blood only) 36.1 % (37-47); Hemoglobin 11.4 g/dL (12.0-16.0); Mean Corpuscular Hemoglobin 28.8 pg (25-34); Mean Corpuscular Hgb Conc 31.6 g/dL (32-36); Mean Corpuscular Volume 91.2 fL (80-100); Mean Platelet Volume 11.2 fL (7.4-10.4); Monocytes # (auto) 0.67 K/uL (0.11-0.59); Monocytes % (auto) 14.4 %; Neutrophils # (auto) 2.41 K/uL (1.4-6.5); Neutrophils % (auto) 51.8 %; Platelet Count 154 K/uL (130-400); RDW Coefficient of Variation 15.3 % (11.5-14.5); RDW Standard Deviation 50.8 fL (36.4-46.3); Red Blood Count 3.96 M/uL (4.2-5.4); White Blood Count 4.66 K/uL (4.8-10.8)
[2019-07-31 08:11] LABS: BUN Creatinine Ratio 20.2 (10-20); Calcium 8.5 mg/dl (8.5-10.1); Creatinine Clr Calc Pharmacy 82.4 ml/min; Est GFR (African American) 102.5; Est GFR (Non-African American) 88.4; Potassium 4.1 mmol/L (3.5-5.1)
[2019-07-31] MEDS: DULOXETINE HCL 60 MG CAP PO SCH (08:14)
[2019-07-31] MEDS: VERAPAMIL HCL 120 MG TABCR PO SCH (08:14)
[2019-07-31] MEDS: PANTOprazole 40 MG TAB PO SCH (08:14)
[2019-07-31] MEDS: BENZONATATE 100 MG CAPSULE PO SCH ×4 (08:14→21:28)
[2019-07-31] MEDS: RIVAROXABAN 20 MG TAB PO SCH (08:15)
[2019-07-31] MEDS: OSELTAMIVIR PHOSPHATE 75 MG CAP PO SCH ×2 (08:15→21:24)
[2019-07-31] MEDS: lisinopriL 10 MG TAB PO SCH (08:15)
[2019-07-31] MEDS: METOPROLOL TARTRATE 25 MG TAB PO SCH ×2 (08:15→22:11)
[2019-07-31] MEDS: ANASTROZOLE 1 MG TAB PO SCH (08:15)
[2019-07-31] MEDS: INSULIN ASPART 100 UNITS/ML 3 ML PEN SC SCH ×4 (08:16→21:22)
[2019-07-31] MEDS: PREGABALIN 75 MG CAP PO SCH ×2 (08:21→20:41)
--- NOTE | 2019-07-31 14:29 | XRay Report ---
XR chest 2V PA/lateral CLINICAL HISTORY: influenza dyspnea COMPARISON STUDY: 07/29/2019 FINDINGS: The bones soft tissues and hemidiaphragms are normal. The cardiomediastinal silhouette is n ormal. The lungs are clear. The pulmonary vasculature is normal. IMPRESSION: Negative chest. ACT 112: Negative or not required by law. The above report was generated using voice recognition software. It may contain grammatical, syntax or spelling errors. Electronically signed by: Gray Tobar M.D. 07/31/2019 2:28 PM
[2019-07-31] MEDS: ALBUTEROL 0.5% NEB SOLN 2.5 MG/0.5 ML VIAL NEB PRN (14:58)
[2019-07-31] MEDS: METOPROLOL TARTRATE 1 MG/ML VIAL IV PRN ×3 (17:58→20:50)
[2019-07-31] MEDS ORDERED: METOPROLOL TARTRATE 1 MG/ML VIAL IV STA (21:12)
[2019-07-31] MEDS: INSULIN GLARGINE SOLOSTAR 100 UNITS/ML 3 ML PEN SQ SCH (21:22)
[2019-07-31] MEDS: ATORVASTATIN 40 MG TAB PO SCH (21:23)
--- NOTE | 2019-07-31 22:25 | Hospitalist Progress Note ---
Date of Service July 31, 2019 Assessment & Plan (1) Influenza A: Patient febrile, tachycardic, tachypneic. Adequate oxygenation on room air, no evidence of pneumonia on chest x-ray -Patient will continue on tamiflu BID. Patient will be on this for 7 days -Given her SOB, will continue her on neb treatments. Droplet precautions Supportive care with IV fluids, nebs as needed, Tessalon Perles as needed, Tylenol (2) Atrial fibrillation: Patient with history of atrial fibrillation, presently in accelerated junctional rhythm. Blood pressure stable. Patient asymptomatic Patient had an episode of RVR today This resolved after one time dose of metoprolol IV PRN. Continue metoprolol 25 mg p.o. twice daily Continue verapamil 120 mg p.o. 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 Last hemoglobin A1c on 06/08/2019 = 8.3 We will hold oral agents, glipizide and linagliptin Continue Lantus 30 units nightly with insulin sliding scale. Goal blood sugar 100-1 40 Continue Lyrica 75 mg p.o. twice daily (4) Hypercholesterolemia: Chronic. Stable. Continue atorvastatin 40 mg p.o. nightly (5) Gastroesophageal reflux disease: Chronic. Stable. Continue Protonix (6) Depression: Chronic. Stable. Well-controlled Continue Cymbalta 60 mg p.o. every morning (7) Hypothyroidism: Chronic. Stable. TSH = 1.73 Continue Synthroid 37.5 mcg p.o. every morning (8) Breast cancer: Continue anastrozole 1 mg p.o. every morning Ppx - Continue Rivaroxaban Code - Full Dispo - Observation to [facility] with telemetry Admission and Anticipated Discharge Date Admission Date: July 31, 2019 Subjective Patient feels more short of breath today. She feels generalized malaise. Yesterday she reported feeling better. She also reports having a productive cough. She denies any subjective fevers, nausea, vomiting, diarrhea. Review of Systems Review of Systems: All systems reviewed & are unremarkable except as noted in HPI & below Physical Exam Physical Exam: General: patient resting comfortably, but appears sick, NAD, AA&O x 4 Skin: warm, dry, intact, no rashes or lesions HEENT: NC/AT, PERRL, EOMI, anicteric sclera, conjunctiva without injection, external ear normal to inspection and nontender, nares patent, moist mucus membranes, dentition intact, no oropharyngeal lesions, neck supple, trachea midline, no LAD, no thyromegaly, no JVD Heart: +S1/S2, irregular, tachycardic no m/r/g Lungs: equal air entry bilaterally, decreased breath sounds and wheezing, no rales/rhonchi Abd: +BS, soft, NT/ND, no masses/organomegaly/ascites Ext: warm, 2+ pulses in UE/LE bilaterally, no clubbing/cyanosis or edema Neuro: nonfocal, patient AA&O x 4, speech intact, no facial droop, moving all extremities on command with equal strength 5/5 Results & Data ([facility]) Vital Signs (Past 12 Hours) Vital Signs Temp Pulse Pulse Resp BP BP Pulse Ox 07/31/19 22:09 120 H 115/57 L 07/31/19 21:17 148 H 145/94 H 07/31/19 20:50 152 H 134/76 07/31/19 20:34 155 H 137/83 07/31/19 19:51 36.9 C 82 20 130/76 95 07/31/19 17:58 147 H 110/72 07/31/19 17:55 147 H 110/72 07/31/19 15:51 52 L 07/31/19 14:59 78 20 95 07/31/19 14:00 36.8 C 66 18 99/54 L 95 07/31/19 11:00 36.7 C 79 20 92/55 L 93 PG Care Time/CCT Total # of Minutes Spent Total Time Spent with Patient: Total time spent is greater than 50% in coordination of care (as documented) at patient's floor/unit and/or counseling patient: Coding Level of Care Code 77643 Subseq Hosp Care Lvl 3 Diagnoses Influenza A J10.1 Atrial fibrillation I48.91 Atrial fibrillation type: unspecified Diabetes mellitus type 2, uncontrolled E11.65 Glycemic state: with hyperglycemia Hypercholesterolemia E78.00 Gastroesophageal reflux disease K21.9 Esophagitis presence: esophagitis presence not specified Depression F32.9 Depression Type: unspecified Hypothyroidism E03.9 Hypothyroidism type: unspecified Breast cancer C50.919 Breast location: unspecified site of breast Estrogen receptor status: unspecified Laterality: unspecified laterality Patient sex: female Time Spent (min) 35 (1) Atrial fibrillation Atrial fibrillation type: unspecified Qualified Code(s): I48.91 - Unspecified atrial fibrillation (2) Depression Depression Type: unspecified Qualified Code(s): F32.9 - Major depressive disorder, single episode, unspecified (3) Hypothyroidism Hypothyroidism type: unspecified Qualified Code(s): E03.9 - Hypothyroidism, unspecified (4) Diabetes mellitus type 2, uncontrolled Glycemic state: with hyperglycemia Qualified Code(s): E11.65 - Type 2 diabetes mellitus with hyperglycemia (5) Breast cancer Breast location: unspecified site of breast Estrogen receptor status: unspecified Laterality: unspecified laterality Patient sex: female Qualified Code(s): C50.919 - Malignant neoplasm of unspecified site of unspecified female breast (6) Gastroesophageal reflux disease Esophagitis presence: esophagitis presence not specified Qualified Code(s): K21.9 - Gastro-esophageal reflux disease without esophagitis
[2019-08-01] MEDS: LEVOTHYROXINE SODIUM 25 MCG TABLET PO SCH (05:36)
[2019-08-01] MEDS: INSULIN ASPART 100 UNITS/ML 3 ML PEN SC SCH ×4 (08:05→20:57)
[2019-08-01] MEDS: ANASTROZOLE 1 MG TAB PO SCH (08:05)
[2019-08-01] MEDS: PREGABALIN 75 MG CAP PO SCH ×2 (08:05→21:03)
[2019-08-01] MEDS: METOPROLOL TARTRATE 25 MG TAB PO SCH ×3 (08:06→21:03)
[2019-08-01] MEDS: DULOXETINE HCL 60 MG CAP PO SCH (08:06)
[2019-08-01] MEDS: lisinopriL 10 MG TAB PO SCH (08:06)
[2019-08-01] MEDS: PANTOprazole 40 MG TAB PO SCH (08:06)
[2019-08-01] MEDS: OSELTAMIVIR PHOSPHATE 75 MG CAP PO SCH ×2 (08:06→21:03)
[2019-08-01] MEDS: BENZONATATE 100 MG CAPSULE PO SCH ×3 (08:06→21:04)
[2019-08-01] MEDS: RIVAROXABAN 20 MG TAB PO SCH (08:06)
[2019-08-01] MEDS: VERAPAMIL HCL 120 MG TABCR PO SCH (08:06)
[2019-08-01] MEDS: METOPROLOL TARTRATE 1 MG/ML VIAL IV PRN (08:42)
--- NOTE | 2019-08-01 08:55 | Hospitalist Progress Note ---
Date of Service August 01, 2019 Assessment & Plan (1) Atrial flutter with rapid ventricular response: Patient is in atrial flutter 4:1 AV conduction block. Her heart rate came up to 160. Will place her back in bed. Obtained EKG. Patient was closely monitored during this time as she was having chest pain. Metoprolol IV 5mg ordered as she was having chest pressure. Her heart rate improved prior to receiving the IV metoprolol. Once her heart rate improved, her chest pain also improved. Consulted cardio. Patient did have an episode of bradycardia in the 40s yesterday, though she was asymptomatic. Will increase beta alec to 25 mg PO TID and monitor. May need pacemaker vs ablation as patient is having tachybrady syndrome. trop was negative. (2) Influenza A: Patient febrile, tachycardic, tachypneic. Adequate oxygenation on room air, no evidence of pneumonia on chest x-ray -Patient will continue on tamiflu BID. Patient will be on this for 7 days -Given her SOB, will continue her on neb treatments. Droplet precautions Supportive care with IV fluids, nebs as needed, Tessalon Perles as needed, Tylenol (3) Atrial fibrillation: Patient with history of atrial fibrillation, presently in accelerated junctional rhythm. Blood pressure stable. Patient asymptomatic Patient had an episode of RVR today This resolved after one time dose of metoprolol IV PRN. Continue metoprolol 25 mg p.o.TID daily Continue verapamil 120 mg p.o. daily Continue rivaroxaban 20 mg p.o. daily desk monitor (4) Diabetes mellitus type 2, uncontrolled: Blood sugar elevated at 221. Last hemoglobin A1c on 06/08/2019 = 8.3 We will hold oral agents, glipizide and linagliptin Continue Lantus 30 units nightly with insulin sliding scale. Goal blood sugar 100-1 40 Continue Lyrica 75 mg p.o. twice daily (5) Hypercholesterolemia: Chronic. Stable. Continue atorvastatin 40 mg p.o. nightly (6) Gastroesophageal reflux disease: Chronic. Stable. Continue Protonix (7) Depression: Chronic. Stable. Well-controlled Continue Cymbalta 60 mg p.o. every morning (8) Hypothyroidism: Chronic. Stable. TSH = 1.73 Continue Synthroid 37.5 mcg p.o. every morning (9) Breast cancer: Continue anastrozole 1 mg p.o. every morning Ppx - Continue Rivaroxaban Code - Full Admission and Anticipated Discharge Date Admission Date: July 31, 2019 Subjective Was seen in the AM as she was found to be in A. fib RVR. Patient reports she is having some chest tightness which is new. This chest pressure is midsternal, non radiating and just began this morning. She does report having a simlar episode yesterday that was short lived but repo rts that she did not want to bother anyone with her symptoms. During second visit in the afternoon., patient HR was better controlled. Review of Systems Review of Systems: All systems reviewed & are unremarkable except as noted in HPI & below Physical Exam Physical Exam: General: patient resting comfortably, but appears sick, NAD, AA&O x 4 Skin: warm, dry, intact, no rashes or lesions HEENT: NC/AT, PERRL, EOMI, anicteric sclera, conjunctiva without injection, external ear normal to inspection and nontender, nares patent, moist mucus membranes, dentition intact, no oropharyngeal lesions, neck supple, trachea midline, no LAD, no thyromegaly, no JVD Heart: +S1/S2, irregular, tachycardic no m/r/g Lungs: equal air entry bilaterally, decreased breath sounds and wheezing, no rales/rhonchi Abd: +BS, soft, NT/ND, no masses/organomegaly/ascites Ext: warm, 2+ pulses in UE/LE bilaterally, no clubbing/cyanosis or edema Neuro: nonfocal, patient AA&O x 4, speech intact, no facial droop, moving all extremities on command with equal strength 5/5 Results & Data ([facility]) Vital Signs (Past 12 Hours) Vital Signs Temp Pulse Pulse Resp BP BP BP 08/01/19 08:45 79 08/01/19 06:57 36.9 C 53 L 18 107/62 08/01/19 03:21 73 20 08/01/19 03:11 36.9 C 54 L 18 117/76 08/01/19 00:21 85 20 07/31/19 23:11 37.1 C 102 H 20 113/75 07/31/19 22:41 125 H 07/31/19 22:09 120 H 115/57 L 07/31/19 21:17 148 H 145/94 H Pulse Ox 08/01/19 08:45 08/01/19 06:57 96 08/01/19 03:21 08/01/19 03:11 94 08/01/19 00:21 07/31/19 23:11 93 07/31/19 22:41 07/31/19 22:09 07/31/19 21:17 PG Care Time/CCT Total # of Minutes Spent Total Time Spent with Patient: Total time spent is greater than 50% in coordination of care (as documented) at patient's floor/unit and/or counseling patient: Prolonged Care Time Prolonged Care Time: Yes Total Prolonged Care Time: 65 as noted in tota time. Coding Level of Care Code 41880 Subseq Hosp Care Lvl 3 Diagnoses Atrial flutter with rapid ventricular response I48.92 Influenza A J10.1 Atrial fibrillation I48.91 Atrial fibrillation type: unspecified Diabetes mellitus type 2, uncontrolled E11.65 Glycemic state: with hyperglycemia Hypercholesterolemia E78.00 Gastroesophageal reflux disease K21.9 Esophagitis presence: esophagitis presence not specified Depression F32.9 Depression Type: unspecified Hypothyroidism E03.9 Hypothyroidism type: unspecified Breast cancer C50.919 Breast location: unspecified site of breast Estrogen receptor status: unspecified Laterality: unspecified laterality Patient sex: female Additional Codes Prolonged Care Time - Prolonged Care Time: Yes ([id number]) Time Spent (min) 65 Comment 8:10-9:05 18:25-1835 (1) Atrial fibrillation Atrial fibrillation type: unspecified Qualified Code(s): I48.91 - Unspecified atrial fibrillation (2) Depression Depression Type: unspecified Qualified Code(s): F32.9 - Major depressive disorder, single episode, unspecified (3) Hypothyroidism Hypothyroidism type: unspecified Qualified Code(s): E03.9 - Hypothyroidism, unspecified (4) Diabetes mellitus type 2, uncontrolled Glycemic state: with hyperglycemia Qualified Code(s): E11.65 - Type 2 diabetes mellitus with hyperglycemia (5) Breast cancer Breast location: unspecified site of breast Estrogen receptor status: unspecified Laterality: unspecified laterality Patient sex: female Qualified Code(s): C50.919 - Malignant neoplasm of unspecified site of unspecified female breast (6) Gastroesophageal reflux disease Esophagitis presence: esophagitis presence not specified Qualified Code(s): K21.9 - Gastro-esophageal reflux disease without esophagitis
--- NOTE | 2019-08-01 08:58 | Communication Note ---
Date of Service: July 30, 2019 Patient was seen in the afternoon of July 30, 2019. Family was at bedside. She was updated and will continue current treatment. She appears to be feeling better. Hoping to discharge on 07/30.
[2019-08-01] MEDS ORDERED: METOPROLOL TARTRATE 50 MG TAB PO SCH (09:00)
[2019-08-01] MEDS ORDERED: METOPROLOL TARTRATE 25 MG TAB PO SCH (09:00)
[2019-08-01 09:23] LABS: Basophils # (auto) 0.01 K/uL (0-0.2); Basophils % (auto) 0.2 %; Eosinophils # (auto) 0.14 K/uL (0-0.5); Eosinophils % (auto) 2.2 %; Giant Platelets 1+; Hematocrit (blood only) 35.3 % (37-47); Hemoglobin 11.3 g/dL (12.0-16.0); Immature Granulocytes # (auto) 0.01 K/uL (0.00-0.02); Immature Granulocytes % (auto) 0.2 %; Lymphocytes # (auto) 1.61 K/uL (1.2-3.4); Lymphocytes % (auto) 25.2 %; Mean Corpuscular Hemoglobin 29.2 pg (25-34); Mean Corpuscular Volume 91.2 fL (80-100); Mean Platelet Volume 11.7 fL (7.4-10.4); Monocytes # (auto) 0.62 K/uL (0.11-0.59); Monocytes % (auto) 9.7 %; Neutrophils # (auto) 4.01 K/uL (1.4-6.5); Neutrophils % (auto) 62.5 %; Ovalocytes 1+; Platelet Count 194 K/uL (130-400); RDW Coefficient of Variation 15.3 % (11.5-14.5); RDW Standard Deviation 50.9 fL (36.4-46.3); Red Blood Count 3.87 M/uL (4.2-5.4)
[2019-08-01 09:43] LABS: BUN Creatinine Ratio 25.1 (10-20); Blood Urea Nitrogen 18 mg/dl (7-18); Calcium 8.6 mg/dl (8.5-10.1); Carbon Dioxide 26 mmol/L (21-32); Chloride 107 mmol/L (98-107); Creatinine Clr Calc Pharmacy 78.7 ml/min; Est GFR (Non-African American) 87.2; Glucose 211 mg/dl (70-99); Potassium 4.2 mmol/L (3.5-5.1); Sodium 137 mmol/L (136-145)
[2019-08-01 09:47] LABS: Troponin I < 0.015 ng/ml (0-0.045)
[2019-08-01] MEDS: ALBUTEROL 0.5% NEB SOLN 2.5 MG/0.5 ML VIAL NEB PRN ×2 (11:29→19:25)
[2019-08-01] MEDS: ACETAMINOPHEN 500 MG TAB PO PRN (14:20)
--- NOTE | 2019-08-01 14:21 | Cardiology Consultation ---
Date of Consultation August 01, 2019 Assessment & Plan (1) Tachy-monica syndrome: (2) Atrial flutter with rapid ventricular response: (3) Atrial fibrillation: (4) Influenza A: (5) Anticoagulant long-term use: Suspect that patient has well controlled ventricular response when she is in her usual baseline rhythm of permanent atrial fibrillation, but when she develops atrial flutter her rate becomes very difficult to control. Agree with increase beta-blockade as a temporary measure to prevent recurrent rapid ventricular response, however given her widely variable heart rate while requiring 2 negative chronotropic medications, she is exhibiting evidence of tachybradycardia syndrome and likely will require an ablation procedure for her atrial flutter and/or pacemaker placement to allow adequate medication for rate control without resultant excess bradycardia. Will ask one of my director of collections and archives colleagues to see the patient tomorrow to evaluate further. She is chronically anticoagulated with rivaroxaban, continue this. History of Present Illness Reason for Consultation: Chest pressure/atrial flutter Requesting Physician: Ulysses Cox Attending Physician: Ulysses Cox History of Present Illness 69-year-old woman with history of atrial fibrillation for which she was on verapamil/metoprolol and anticoagulated with rivaroxaban. She was admitted 07/29/2017 with influenza A manifest as fever/cough/headache/sore throat. Although she is listed as having paroxysmal atrial fibrillation, and ECG from February 2019 suggest that she may have permanent atrial fibrillation as a baseline. However, since her admission this hospitalization she has been in atrial flutter with highly variable rate response during her stay. All her in hospital ECGs showed rapid ventricular rates (up to 154 bpm), but pulse rates as low as 52 bpm were reported on routine nursing checks. Despite intermittent significantly elevated rates, she had not complained of any symptoms of palpitations. However, this morning she developed midsternal chest discomfort during a period of particularly high rapid ventricular response, this resolved with administration of IV metoprolol. At the time of my evaluation, her chest discomfort had resolved and she was comfortable. She was normotensive and her pulse was in the 70s and irregular. Allergies Allergy/AdvReac Type Severity Reaction Status Date / Time meperidine [From Demerol] AdvReac Mild Not Verified 07/29/19 21:36 tolerated. venlafaxine [From Effexor] AdvReac Mild Not Verified 07/29/19 21:36 tolerated metformin AdvReac Unknown INSOMNIA Verified 07/29/19 21:36 amoxicillin [From Augmentin] AdvReac Verified 07/29/19 21:36 clavulanic acid AdvReac Verified 07/29/19 21:36 [From Augmentin] Home Medications Home Medications Medication Instructions Recorded Confirmed Type cyanocobalamin (vitamin B-12) 1,000 mcg IM MONTHLY ea 02/04/18 07/29/19 History 1,000 mcg/mL injection kit lisinopril 10 mg tablet 10 mg PO QAM 02/04/18 07/29/19 History multivitamin 1 tab PO QAM 02/04/18 07/29/19 History blood-glucose meter #1 ea 12/24/18 06/16/19 History pregabalin 75 mg capsule 75 mg PO BID #60 cap 03/08/19 07/29/19 Rx metoprolol tartrate 25 mg tablet 25 mg PO BID #180 tab 04/08/19 07/29/19 Rx glipizide 10 mg tablet 10 mg PO BID #180 tab 04/20/19 07/29/19 Rx blood sugar diagnostic #10 ea 05/04/19 06/16/19 History blood-glucose meter ea 05/04/19 06/16/19 History lancets 33 gauge #100 ea 05/04/19 06/16/19 History pen needle, diabetic 32 gauge x ea 05/04/19 06/16/19 History 5/32" meclizine 25 mg tablet 25 mg PO Q6H PRN #30 tab 06/02/19 07/29/19 Rx acetaminophen [Tylenol Extra 500 mg PO Q6H PRN 07/29/19 07/29/19 History Strength] anastrozole 1 mg PO QAM 07/29/19 07/29/19 History atorvastatin 40 mg PO HS 07/29/19 07/29/19 History cholecalciferol (vitamin D3) 1,000 unit PO QAM 07/29/19 07/29/19 History [Vitamin D3] dextromethorphan polistirex 10 ml PO Q12H PRN 07/29/19 07/29/19 History [Delsym 12 hour] duloxetine 60 mg PO QAM 07/29/19 07/29/19 History insulin glargine [Lantus Solostar 30 units SQ HS 07/29/19 07/29/19 History U-100 Insulin] levothyroxine 37.5 mcg PO QAM 07/29/19 07/29/19 History linagliptin 5 mg PO QAM 07/29/19 07/29/19 History pantoprazole 40 mg PO QAM 07/29/19 07/29/19 History rivaroxaban [Xarelto] 20 mg PO QAM 07/29/19 07/29/19 History verapamil 120 mg PO QAM 07/29/19 07/29/19 History metoprolol succinate [Toprol XL] 50 mg PO PM #30 tab 07/31/19 Rx oseltamivir 75 mg PO BID 5 Days #10 cap 07/31/19 Rx Patient History Medical History Abdominal wound dehiscence (Chronic 06/15/14) Arthritis (Chronic) Atrial fibrillation (Chronic) Atrial flutter (Inactive) Atrial flutter (Chronic) Breast cancer (Chronic 12/18/15) "Abnormal left breast mammogram Status post core needle biopsy 12/18/2015 revealing infiltrating ductal carcinoma Estrogen receptor positive, progesterone receptor positive, HER-2/po negative Status post left needle localization lumpectomy and sentinel lymph node biopsy 01/04/2016 Stage pT1c pN0M0 Status post completion of radiation therapy 02/13/2016 received 3850 cGy utilizing accelerated partial breast irradiation." On 01/17/16 14:10 Deidre Orta wrote "Abnormal left breast mammogram Status post core needle biopsy 12/18/2015 revealing infiltrating ductal carcinoma Estrogen receptor positive, progesterone receptor positive, HER-2/po negative Status post left needle localization lumpectomy and sentinel lymph node biopsy 01/04/2016 Stage pT1c pN0M0" Cervical spine disease (Chronic) Chronic anemia (Chronic) Chronic anticoagulation (Chronic) Chronic pain (Chronic) Closed head injury (Chronic) Constipation (Chronic) Dehydration (Resolved) Depression (Chronic) Diabetes mellitus type 2, uncontrolled (Chronic) Facial laceration (Chronic) Fall (Chronic) Frequent falls (Chronic) Gait disturbance (Chronic) Gastroesophageal reflux disease (Chronic) Hypercholesterolemia (Chronic) Hypocalcemia (Chronic) Hypotension (Chronic) Hypothyroidism (Chronic) Infiltrating ductal carcinoma of left breast (Acute) Internal hemorrhoids (Chronic) Leg weakness, bilateral (Chronic) Lipodystrophy (Chronic) Lumbar radiculopathy (Chronic) Memory changes (Chronic) Nasal bone fractures (Chronic) Obesity (Chronic) Obstructive sleep apnea (Chronic) Peripheral neuropathy (Chronic) Positive ESTEPHANIA (antinuclear antibody) (Chronic) Recurrent incisional hernia with incarceration (Chronic 05/16/14) Renal failure (Chronic) Rib contusion (Chronic) Sternal fracture (Chronic) Subtherapeutic international normalized ratio (INR) (Chronic) Traumatic hematoma of forehead (Chronic) Vertigo (Chronic) Vitamin B12 deficiency (Chronic) Surgical History History of section History of total knee arthroplasty Status post appendectomy Status post arthroscopy of left shoulder Status post gastric bypass for obesity Status post laparoscopic cholecystectomy Status post lumbar spine surgery for decompression of spinal cord Status post panniculectomy Status post partial mastectomy of left breast Status post repair of ventral hernia Status post total abdominal hysterectomy and bilateral salpingo-oophorectomy Status post total hip replacement, bilateral Family History Breast cancer Unknown Emphysema lung Unknown Social History Preferred Language: Korean Communication Ability: Effective Hearing Ability: Normal Cath Lab Radiological Technologist Required: No Beliefs That Will Affect Care: None marital status: Current Living Situation: Spouse current occupational status: retired Other Information That Helps Us Care for You: No Feels Safe at Home: Yes Safety Concerns: Feels Safe At This Time Smoking Status: Former smoker Tobacco Type: cigarettes ; Do You Dip or Chew Tobacco: No ; Second Hand Exposure: No ; Hx Alcohol Use: No Hx Substance Use: No Childhood Exposure to Second-Hand Smoke: Yes caffeine: Yes Dental Care, Regularly: No Physical Activity Frequency: 1-2 Times per Week Seatbelt Use: always Sunscreen Use: No Review of Systems Constitutional: + fatigue; no fever, no chills, no weight loss and no weight gain Eyes: no problem reported Ear, Nose, Mouth, Throat: + nasal congestion and + sore throat Respiratory: + cough and + dyspnea Cardiovascular: as per Subjective / HPI Gastrointestinal: no abdominal pain and no change in stools Genitourinary: no problem reported Musculoskeletal: no myalgia Integumentary: no rash and no new lesions Neurologic: no falls and no syncope Psychiatric: no problem reported Hematologic / Lymphatic: no easy bleeding and no easy bruising Physical Exam Physical Exam: No distress. Appears comfortable. Skin: No unusual lesions or ecchymosis. HEENT: Unremarkable. Neck: Jugular venous at the clavicle at 90, no carotid bruits. Lungs: Moderately decreased breath sounds with scattered rhonchi and expiratory wheezing. No abdominal paradox, accessory muscle use, or intercostal retraction. Cardiac: irregular rhythm. No obvious murmur or gallop. Abdomen: Benign. Extremities: Nontender without edema. Intact peripheral pulses. Neurologic: Normal affect, nonfocal Results & Data ([facility]) Diagnostic Findings ECG on admission showed atrial flutter with rapid ventricular response (116 bpm), otherwise unremarkable. Compared with November 2017 study, no significant change. A second ECG on 07/30/2019 showed atrial flutter with a more rapid ventricular response (129 bpm), but was essentially unchanged. ECG 07/31/2019 showed atrial flutter with 2:1 block and even faster ventricular spots (154 bpm). ECG today showed atrial flutter with 4:1 AV block and controlled ventricular response (79 bpm). ECG from February 2019 showed atrial fibrillation with a slow ventricular response (59 bpm). Chest x-rays 07/30 was unremarkable. Echocardiogram from October 2018 showed normal systolic function (EF 55 to 60%) with no wall motion abnormalities. Mild aortic stenosis. Unchanged compared with 2017 study. PG Care Time/CCT Total # of Minutes Spent Total Time Spent with Patient: Total time spent is greater than 50% in coordination of care (as documented) at patient's floor/unit and/or counseling patient: Coding Level of Care Code 89246 Initial Inpt Care Lvl 3 Diagnoses Tachy-monica syndrome I49.5 Atrial flutter with rapid ventricular response I48.92 Atrial fibrillation I48.91 Atrial fibrillation type: unspecified Influenza A J10.1 Anticoagulant long-term use Z79.01 (1) Atrial fibrillation Atrial fibrillation type: unspecified Qualified Code(s): I48.91 - Unspecified atrial fibrillation
[2019-08-01] MEDS: INSULIN GLARGINE SOLOSTAR 100 UNITS/ML 3 ML PEN SQ SCH (20:58)
[2019-08-01] MEDS: ATORVASTATIN 40 MG TAB PO SCH (21:03)
[2019-08-02] MEDS: LEVOTHYROXINE SODIUM 25 MCG TABLET PO SCH (05:52)
[2019-08-02] MEDS: PREGABALIN 75 MG CAP PO SCH ×2 (08:06→20:51)
[2019-08-02] MEDS: BENZONATATE 100 MG CAPSULE PO SCH ×3 (08:06→20:46)
[2019-08-02] MEDS: PANTOprazole 40 MG TAB PO SCH (08:06)
[2019-08-02] MEDS: RIVAROXABAN 20 MG TAB PO SCH (08:06)
[2019-08-02] MEDS: VERAPAMIL HCL 120 MG TABCR PO SCH (08:07)
[2019-08-02] MEDS: DULOXETINE HCL 60 MG CAP PO SCH (08:07)
[2019-08-02] MEDS: METOPROLOL TARTRATE 25 MG TAB PO SCH ×3 (08:07→20:45)
[2019-08-02] MEDS: ANASTROZOLE 1 MG TAB PO SCH (08:07)
[2019-08-02] MEDS: OSELTAMIVIR PHOSPHATE 75 MG CAP PO SCH ×2 (08:09→20:46)
[2019-08-02] MEDS: lisinopriL 10 MG TAB PO SCH (08:11)
[2019-08-02] MEDS: INSULIN ASPART 100 UNITS/ML 3 ML PEN SC SCH ×4 (08:12→20:47)
--- NOTE | 2019-08-02 12:14 | Cardiology Progress Note ---
Date of Service August 02, 2019 Assessment & Plan (1) Tachy-monica syndrome: (2) Atrial flutter with rapid ventricular response: (3) Atrial fibrillation: (4) Influenza A: (5) Anticoagulant long-term use: Patient exhibiting significant heart rate variation, consistent with tachybradycardia syndrome. When she is in sinus or atrial fibrillation her heart rate is bradycardic, when she has atrial flutter she becomes tachycardic (markedly so at times). We will ask for electrophysiology evaluation to determine whether atrial flutter ablation and/or pacemaker placement is necessary (to allow for adequate medication for rate control without resultant excess bradycardia). In the meantime, since she has reverted to sinus rhythm, an attempt at rhythm control would be worthwhile. Recommend initiating amiodarone, given her bradycardic tendencies would not load in the usual fashion but would simply start 200 mg daily. After first dose of amiodarone, would discontinue metoprolol (while maintaining PRN IV metoprolol order) to avoid bradycardia. She is chronically anticoagulated with rivaroxaban, will hold this given the possibility of pacemaker placement in the near future, please restart at the time of discharge (sooner if she does not remain in sinus rhythm and either does not require pacemaker presently or is post pacemaker placement). Admission and Anticipated Discharge Date Admission Date: July 31, 2019 Subjective Patient has had no further chest pain (last occurred Friday morning). She was comfortable, no current symptoms. Telemetry showed widely varying heart rate while in atrial flutter overnight (sporadically in the 150 bpm range), she converted to sinus rhythm at about 8 AM this morning with a rate in the 50 bpm range. Physical Exam Physical Exam: No distress. Appears comfortable. Skin: No unusual lesions or ecchymosis. HEENT: Unremarkable. Neck: Jugular venous at the clavicle at 90, no carotid bruits. Lungs: Moderately decreased breath sounds with scattered rhonchi and expiratory wheezing. No abdominal paradox, accessory muscle use, or intercostal retraction. Cardiac: regular rhythm. No obvious murmur or gallop. Abdomen: Benign. Extremities: Nontender without edema. Intact peripheral pulses. Neurologic: Normal affect, nonfocal Results & Data ([facility]) Vital Signs (Past 12 Hours) Vital Signs Temp Pulse Pulse Resp BP BP Pulse Ox 08/02/19 11:46 98.4 F 51 L 18 104/57 L 95 08/02/19 07:10 65 08/02/19 07:07 97.7 F 69 18 114/70 91 08/02/19 03:07 97.7 F 90 19 140/88 96 PG Care Time/CCT Total # of Minutes Spent Total Time Spent with Patient: Total time spent is greater than 50% in coordination of care (as documented) at patient's floor/unit and/or counseling patient: Coding Level of Care Code 74782 Subseq Hosp Care Lvl 3 Diagnoses Tachy-monica syndrome I49.5 Atrial flutter with rapid ventricular response I48.92 Atrial fibrillation I48.91 Atrial fibrillation type: unspecified Influenza A J10.1 Anticoagulant long-term use Z79.01 (1) Atrial fibrillation Atrial fibrillation type: unspecified Qualified Code(s): I48.91 - Unspecified atrial fibrillation
--- NOTE | 2019-08-02 13:51 | Cardiology Progress Note ---
Date of Service August 02, 2019 Assessment & Plan (1) Tachy-monica syndrome: She has tachybradycardia syndrome with tachycardia due to atrial fibrillation and atrial flutter with heart rates of 140 to 150 bpm, with treatment of her tachycardia she returned to sinus rhythm with a heart rate in the 40s. She has symptoms of palpitations and presyncope with the tachycardia, she has feelings of extreme fatigue and tiredness with the bradycardia during sinus rhythm. We will not be able to treat both with simple medical management. I would recommend implanting a dual-chamber pacemaker for bradycardia support and then adjusting her medications to control the tachycardia. She is agreeable to this approach. She did take Xarelto this morning, I am going to schedule her for Friday for surgery although I do not have a time at this point. I discussed the indications, procedure, risks and alternatives of pacemaker implantation with her and she understands and agrees to proceed. Consent obtained. I also discussed sedation with her and she is agreeable. Consent obtained. Admission and Anticipated Discharge Date Admission Date: July 31, 2019 Subjective This is a 69-year-old woman who has a history of atrial fibrillation and presented with tachycardia. During tachycardia (she has tachycardia during atrial fibrillation and atrial flutter) she feels lightheaded and presyncopal. Adjustment of medications to control her heart rate resulted in bradycardia when she converted to sinus rhythm. Her heart rate has been in the 40s and she feels weak and tired and feels that she cannot do any type of physical activity with the bradycardia. A pacemaker has been recommended. Results & Data ([facility]) Vital Signs (Past 12 Hours) Vital Signs Temp Pulse Pulse Resp BP BP Pulse Ox 08/02/19 11:46 36.9 C 51 L 18 104/57 L 95 08/02/19 07:10 65 08/02/19 07:07 36.5 C 69 18 114/70 91 08/02/19 03:07 36.5 C 90 19 140/88 96 Laboratory Results Intake and Output 08/01/19 08/02/19 08/02/19 22:59 06:59 14:59 Intake Total 400 / 915 200 / 915 Balance 400 / 914 200 / 914 Intake: Oral 400 / 915 200 / 915 Other: # Unmeasured Voids 1 Weight 93.1 kg Diagnostic Findings Review of telemetry shows that she came in with a rapid heart rate during atrial fibrillation that had a gradual drop into the 30s and low 40s during the night on July 31, 2022 August 02, 2019 with conversion to sinus bradycardia in the morning morning hours of August 02, 2019. Heart rate in the 40s and low 50s since. PG Care Time/CCT Total # of Minutes Spent Total Time Spent with Patient: Total time spent is greater than 50% in coordination of care (as documented) at patient's floor/unit and/or counseling patient: Coding Level of Care Code 96819 Subseq Hosp Care Lvl 3 Diagnoses Tachy-monica syndrome I49.5
--- NOTE | 2019-08-02 16:09 | Hospitalist Progress Note ---
Date of Service August 02, 2019 Assessment & Plan (1) Atrial flutter with rapid ventricular response: Patient has been up and down with heart rate. Atrial flutter 4:1 AV conduction block to up to 160. - Plan for dual-chamber pacemaker on Friday. - Continue telemetry monitoring. - Continue beta-alec (2) Influenza A: Patient febrile, tachycardic, tachypneic. Adequate oxygenation on room air, no evidence of pneumonia on chest x-ray. - Patient will continue on tamiflu BID (End date: 08/04/2019). Droplet precautions Supportive care with IV fluids, nebs as needed, Tessalon Perles as needed, Tylenol (3) Atrial fibrillation: Patient with history of atrial fibrillation, presently in accelerated junctional rhythm. Blood pressure stable. Continue metoprolol 25 mg p.o.TID daily Continue verapamil 120 mg p.o. daily Hold rivaroxaban for pacemaker (4) Diabetes mellitus type 2, uncontrolled: Blood sugar elevated at 221. Last hemoglobin A1c on 06/08/2019 = 8.3%. We will hold oral agents, glipizide and linagliptin Continue Lantus 30 units nightly with insulin sliding scale. Goal blood sugar 100 - 140. Presently near goal, but slightly high. Continue Lyrica 75 mg p.o. twice daily (5) Hypercholesterolemia: Chronic. Stable. Continue atorvastatin 40 mg p.o. nightly (6) Gastroesophageal reflux disease: Chronic. Stable. Continue Protonix (7) Depression: Chronic. Stable. Well-controlled. Continue Cymbalta 60 mg p.o. every morning (8) Hypothyroidism: Chronic. Stable. TSH = 1.73. Continue Synthroid 37.5 mcg p.o. every morning (9) Breast cancer: Continue anastrozole 1 mg p.o. every morning (10) DVT prophylaxis: SCDs - Will restart anticoagulation after procedure Admission and Anticipated Discharge Date Admission Date: July 31, 2019 Subjective Feeling fairly well. Some cough/cold symptoms. Reports no fevers/chills, chest pain, shortness of breath, abdominal pain, nausea, or vomiting. Physical Exam Constitutional: WD/WN, vitals as above Eyes: EOM intact bilaterally; no conjunctival abnormality ENMT: external ear and nose normal, oropharynx normal Neck: trachea midline, no thyromegaly normal visual inspection Respiratory: normal respiratory effort, lungs clear to auscultation no respiratory distress Cardiovascular: RRR, no murmur, no edema Gastrointestinal (Abdomen): Inspection/Auscultation: abdomen normal to inspection; abdomen not distended Musculoskeletal: no cyanosis or clubbing, extremities motor strength 5/5 Skin: no rashes, warm and dry Neurologic: moves all extremities and awake Psychiatric: Orientation: alert, oriented to person and cooperative Results & Data ([facility]) Vital Signs (Past 12 Hours) Vital Signs Temp Pulse Pulse Pulse Resp BP BP 08/02/19 15:21 36.5 C 53 L 18 101/40 L 08/02/19 14:51 55 L 54 L 16 116/69 08/02/19 11:46 36.9 C 51 L 18 104/57 L 08/02/19 07:10 65 08/02/19 07:07 36.5 C 69 18 114/70 Pulse Ox 08/02/19 15:21 96 08/02/19 14:51 08/02/19 11:46 95 08/02/19 07:10 08/02/19 07:07 91 PG Care Time/CCT Total # of Minutes Spent Total Time Spent with Patient: Total time spent is greater than 50% in coordination of care (as documented) at patient's floor/unit and/or counseling patient: Coding Level of Care Code 36459 Subseq Hosp Care Lvl 2 Diagnoses Atrial flutter with rapid ventricular response I48.92 Influenza A J10.1 Atrial fibrillation I48.91 Atrial fibrillation type: unspecified Diabetes mellitus type 2, uncontrolled E11.65 Glycemic state: with hyperglycemia Hypercholesterolemia E78.00 Gastroesophageal reflux disease K21.9 Esophagitis presence: esophagitis presence not specified Depression F32.9 Depression Type: unspecified Hypothyroidism E03.9 Hypothyroidism type: unspecified Breast cancer C50.919 Breast location: unspecified site of breast Estrogen receptor status: unspecified Patient sex: female Laterality: unspecified laterality DVT prophylaxis Z29.9 (1) Atrial fibrillation Atrial fibrillation type: unspecified Qualified Code(s): I48.91 - Unspecified atrial fibrillation (2) Diabetes mellitus type 2, uncontrolled Glycemic state: with hyperglycemia Qualified Code(s): E11.65 - Type 2 diabetes mellitus with hyperglycemia (3) Gastroesophageal reflux disease Esophagitis presence: esophagitis presence not specified Qualified Code(s): K21.9 - Gastro-esophageal reflux disease without esophagitis (4) Depression Depression Type: unspecified Qualified Code(s): F32.9 - Major depressive disorder, single episode, unspecified (5) Hypothyroidism Hypothyroidism type: unspecified Qualified Code(s): E03.9 - Hypothyroidism, unspecified (6) Breast cancer Breast location: unspecified site of breast Estrogen receptor status: unspecified Patient sex: female Laterality: unspecified laterality Qualified Code(s): C50.919 - Malignant neoplasm of unspecified site of unspecified female breast
[2019-08-02] MEDS: ATORVASTATIN 40 MG TAB PO SCH (20:44)
[2019-08-02] MEDS ORDERED: INSULIN GLARGINE SOLOSTAR 100 UNITS/ML 3 ML PEN SQ SCH (21:00)
--- NOTE | 2019-08-02 22:09 | Electrocardiogram Report ---
Test Reason : Blood Pressure : / mmHG Vent. Rate : 154 BPM Atrial Rate : 170 BPM P-R Int : 000 ms QRS Dur : 090 ms QT Int : 336 ms P-R-T Axes : 000 025 -08 degrees QTc Int : 538 ms Atrial flutter with 2 to [address] abnormality Abnormal ECG When compared with ECG of 30-JUL-2019 02:33, Atrial flutter has replaced Atrial fibrillation Confirmed by Lakhwinder Acosta ([id number]) on 08/02/2019 10:09:20 PM Referred By: REFERRED SELF Confirmed By:Lakhwinder Acosta
--- NOTE | 2019-08-02 22:34 | Electrocardiogram Report ---
Test Reason : Blood Pressure : / mmHG Vent. Rate : 079 BPM Atrial Rate : 316 BPM P-R Int : 000 ms QRS Dur : 080 ms QT Int : 416 ms P-R-T Axes : 058 -07 002 degrees QTc Int : 477 ms Atrial flutter with 4:1 A-V conduction Abnormal ECG When compared with ECG of 31-JUL-2019 21:07, Vent. rate has decreased BY 75 BPM Confirmed by Lakhwinder Acosta ([id number]) on 08/02/2019 10:33:53 PM Referred By: REFERRED SELF Confirmed By:Lakhwinder Acosta
[2019-08-03] MEDS: LEVOTHYROXINE SODIUM 25 MCG TABLET PO SCH (06:04)
[2019-08-03] MEDS: PREGABALIN 75 MG CAP PO SCH ×2 (08:21→20:08)
[2019-08-03] MEDS: OSELTAMIVIR PHOSPHATE 75 MG CAP PO SCH ×2 (08:21→20:08)
[2019-08-03] MEDS: DULOXETINE HCL 60 MG CAP PO SCH (08:22)
[2019-08-03] MEDS: lisinopriL 10 MG TAB PO SCH (08:22)
[2019-08-03] MEDS: PANTOprazole 40 MG TAB PO SCH (08:22)
[2019-08-03] MEDS: BENZONATATE 100 MG CAPSULE PO SCH ×3 (08:22→20:08)
[2019-08-03] MEDS: VERAPAMIL HCL 120 MG TABCR PO SCH (08:22)
[2019-08-03] MEDS: METOPROLOL TARTRATE 25 MG TAB PO SCH ×3 (08:22→20:09)
[2019-08-03] MEDS: ANASTROZOLE 1 MG TAB PO SCH (08:22)
[2019-08-03] MEDS: INSULIN ASPART 100 UNITS/ML 3 ML PEN SC SCH ×4 (08:22→21:23)
--- NOTE | 2019-08-03 09:43 | Cardiology Progress Note ---
Date of Service August 03, 2019 Assessment & Plan (1) Tachy-monica syndrome: She has tachybradycardia syndrome with tachycardia due to atrial fibrillation and atrial flutter with heart rates of 140 to 150 bpm, with treatment of her tachycardia she returned to sinus rhythm with a heart rate in the 40s. She has symptoms of palpitations and presyncope with the tachycardia, she has feelings of extreme fatigue and tiredness with the bradycardia during sinus rhythm. We will not be able to treat both with simple medical management. I would recommend implanting a dual-chamber pacemaker for bradycardia support and then adjusting her medications to control the tachycardia. She is agreeable to this approach. She did take Xarelto yesterday morning, I am going to schedule her for Friday for surgery although I do not have a time at this point. I discussed the indications, procedure, risks and alternatives of pacemaker implantation yesterday with her and she understands and agrees to proceed. Consent obtained. I also discussed sedation with her and she is agreeable. Consent obtained yesterday. Admission and Anticipated Discharge Date Admission Date: July 31, 2019 Subjective She is feeling relatively well today but her heart rate is better controlled as well. No palpitations, she has not been out of bed much activity tolerance is not clear. Physical Exam Physical Exam: Constitutional: Alert, cooperative and in no distress. HEENT: Unremarkable Neck: No jugular venous distention, carotid pulses are normal and equal bilaterally without bruits. Pulmonary: Clear to auscultation bilaterally. Cardiac: Regular rhythm with no murmur, gallop or rub. Abdomen: Soft, nontender with normal bowel sounds. Extremities: No edema. Distal pulses intact. Neurologic: No focal findings. Gait is steady. Skin: No rash, ecchymoses or petechiae. Results & Data ([facility]) Vital Signs (Past 12 Hours) Vital Signs Temp Pulse Pulse Resp BP BP Pulse Ox 08/03/19 07:16 36.6 C 63 18 135/82 97 08/03/19 05:17 36.5 C 59 L 20 115/69 98 08/02/19 23:21 66 08/02/19 22:46 36.5 C 66 19 116/66 96 Laboratory Results Intake and Output 08/02/19 08/03/19 08/03/19 22:59 06:59 14:59 Intake Total 825 / 925 100 / 925 Balance 825 / 925 100 / 925 Intake: Oral 825 / 925 100 / 925 Other: # Unmeasured Voids 2 Weight 93.3 kg Diagnostic Findings Telemetry: She remains in sinus rhythm, predominantly sinus bradycardia PG Care Time/CCT Total # of Minutes Spent Total Time Spent with Patient: Total time spent is greater than 50% in coordination of care (as documented) at patient's floor/unit and/or counseling patient: Coding Level of Care Code 80643 Subseq Hosp Care Lvl 2 Diagnoses Tachy-monica syndrome I49.5
[2019-08-03 10:40] LABS: INR 1.1 (0.9-1.1); Prothrombin Time 11.9 Seconds (9.0-12.0)
[2019-08-03 10:55] LABS: Potassium 4.3 mmol/L (3.5-5.1)
[2019-08-03] MEDS: ACETAMINOPHEN 500 MG TAB PO PRN (13:19)
--- NOTE | 2019-08-03 14:40 | Hospitalist Progress Note ---
Date of Service August 03, 2019 Assessment & Plan (1) Atrial flutter with rapid ventricular response: Patient has been up and down with heart rate. Atrial flutter 4:1 AV conduction block to up to 160. - Plan for dual-chamber pacemaker on Friday. - Continue telemetry monitoring. - Continue beta-alec & calcium channel alec (2) Influenza A: Patient febrile, tachycardic, tachypneic. Adequate oxygenation on room air, no evidence of pneumonia on chest x-ray. - Patient will continue on tamiflu BID (End date: 08/04/2019). Droplet precautions Supportive care with IV fluids, nebs as needed, Tessalon Perles as needed, Tylenol -> She is feeling much better today. (3) Atrial fibrillation: Patient with history of atrial fibrillation, presently in accelerated junctional rhythm. Blood pressure stable. Continue metoprolol 25 mg p.o.TID daily Continue verapamil 120 mg p.o. daily Hold rivaroxaban for pacemaker (4) Diabetes mellitus type 2, uncontrolled: Blood sugar elevated at 221. Last hemoglobin A1c on 06/08/2019 = 8.3%. We will hold oral agents, glipizide and linagliptin Lower Lantus to 15 units nightly with insulin sliding scale. Goal blood sugar 100 - 140. Presently near goal, but somewhat low in the morning. Continue Lyrica 75 mg p.o. twice daily (5) Hypercholesterolemia: Chronic. Stable. Continue atorvastatin 40 mg p.o. nightly (6) Gastroesophageal reflux disease: Chronic. Stable. Continue Protonix (7) Depression: Chronic. Stable. Well-controlled. Continue Cymbalta 60 mg p.o. every morning (8) Hypothyroidism: Chronic. Stable. TSH = 1.73. Continue Synthroid 37.5 mcg p.o. every morning (9) Breast cancer: Continue anastrozole 1 mg p.o. every morning (10) DVT prophylaxis: SCDs - Will restart anticoagulation after procedure Admission and Anticipated Discharge Date Admission Date: July 31, 2019 Subjective Feels well today. No major breathing issues. Her HR is still very slow, but she doesn't feel lightheaded or dizzy. Reports no fevers/chills, chest pain, shortness of breath, abdominal pain, nausea, or vomiting. Physical Exam Constitutional: WD/WN, vitals as above Eyes: EOM intact bilaterally; no conjunctival abnormality ENMT: external ear and nose normal, oropharynx normal Neck: trachea midline, no thyromegaly normal visual inspection Respiratory: normal respiratory effort, lungs clear to auscultation no respiratory distress Cardiovascular: Rate/Rhythm: regular rate and + bradycardic Heart Sounds: normal S1 and normal S2 Gastrointestinal (Abdomen): Inspection/Auscultation: abdomen normal to inspection; abdomen not distended Musculoskeletal: no cyanosis or clubbing, extremities motor strength 5/5 Skin: no rashes, warm and dry Neurologic: moves all extremities and awake Psychiatric: Orientation: alert, oriented to person and cooperative Results & Data ([facility]) Vital Signs (Past 12 Hours) Vital Signs Temp Pulse Resp BP BP Pulse Ox 08/03/19 11:23 36.6 C 56 L 18 137/88 97 08/03/19 07:16 36.6 C 63 18 135/82 97 08/03/19 05:17 36.5 C 59 L 20 115/69 98 PG Care Time/CCT Total # of Minutes Spent Total Time Spent with Patient: Total time spent is greater than 50% in coordination of care (as documented) at patient's floor/unit and/or counseling patient: Coding Level of Care Code 02828 Subseq Hosp Care Lvl 2 Diagnoses Atrial flutter with rapid ventricular response I48.92 Influenza A J10.1 Atrial fibrillation I48.91 Atrial fibrillation type: unspecified Diabetes mellitus type 2, uncontrolled E11.65 Glycemic state: with hyperglycemia Hypercholesterolemia E78.00 Gastroesophageal reflux disease K21.9 Esophagitis presence: esophagitis presence not specified Depression F32.9 Depression Type: unspecified Hypothyroidism E03.9 Hypothyroidism type: unspecified Breast cancer C50.919 Breast location: unspecified site of breast Estrogen receptor status: unspecified Patient sex: female Laterality: unspecified laterality DVT prophylaxis Z29.9 (1) Atrial fibrillation Atrial fibrillation type: unspecified Qualified Code(s): I48.91 - Unspecified atrial fibrillation (2) Diabetes mellitus type 2, uncontrolled Glycemic state: with hyperglycemia Qualified Code(s): E11.65 - Type 2 diabetes mellitus with hyperglycemia (3) Gastroesophageal reflux disease Esophagitis presence: esophagitis presence not specified Qualified Code(s): K21.9 - Gastro-esophageal reflux disease without esophagitis (4) Depression Depression Type: unspecified Qualified Code(s): F32.9 - Major depressive disorder, single episode, unspecified (5) Hypothyroidism Hypothyroidism type: unspecified Qualified Code(s): E03.9 - Hypothyroidism, unspecified (6) Breast cancer Breast location: unspecified site of breast Estrogen receptor status: unspecified Patient sex: female Laterality: unspecified laterality Qualified Code(s): C50.919 - Malignant neoplasm of unspecified site of unspecified female breast
[2019-08-03] MEDS: ATORVASTATIN 40 MG TAB PO SCH (20:08)
[2019-08-03] MEDS: INSULIN GLARGINE SOLOSTAR 100 UNITS/ML 3 ML PEN SQ SCH (21:23)
--- NOTE | 2019-08-03 22:53 | Electrocardiogram Report ---
Test Reason : Blood Pressure : / mmHG Vent. Rate : 059 BPM Atrial Rate : 059 BPM P-R Int : 168 ms QRS Dur : 080 ms QT Int : 420 ms P-R-T Axes : 056 019 038 degrees QTc Int : 415 ms Sinus bradycardia Otherwise normal ECG When compared with ECG of 01-AUG-2019 08:43, Sinus rhythm has replaced Atrial flutter QT has shortened Confirmed by Lakhwinder Acosta ([id number]) on 08/03/2019 10:53:34 PM Referred By: REFERRED SELF Confirmed By:Lakhwinder Acosta
[2019-08-03] MEDS ORDERED: Nursing to Pharmacy Communication ONE (23:00)
[2019-08-04] MEDS: INSULIN ASPART 100 UNITS/ML 3 ML PEN SC SCH ×5 (00:17→20:08)
[2019-08-04] MEDS: LEVOTHYROXINE SODIUM 25 MCG TABLET PO SCH (05:32)
[2019-08-04] MEDS ORDERED: CLINDAMYCIN 600 MG/54 ML BAG IV SCH (06:00)
[2019-08-04] MEDS: PANTOprazole 40 MG TAB PO SCH (07:44)
[2019-08-04] MEDS: METOPROLOL TARTRATE 25 MG TAB PO SCH ×2 (07:44→16:17)
[2019-08-04] MEDS: PREGABALIN 75 MG CAP PO SCH ×2 (07:44→20:06)
[2019-08-04] MEDS: VERAPAMIL HCL 120 MG TABCR PO SCH (07:44)
[2019-08-04] MEDS: DULOXETINE HCL 60 MG CAP PO SCH (07:44)
[2019-08-04] MEDS: ANASTROZOLE 1 MG TAB PO SCH (07:44)
[2019-08-04] MEDS: BENZONATATE 100 MG CAPSULE PO SCH ×3 (07:44→20:06)
[2019-08-04] MEDS: lisinopriL 10 MG TAB PO SCH (07:44)
--- NOTE | 2019-08-04 11:48 | Cardiology Progress Note ---
Date of Service August 04, 2019 Assessment & Plan (1) Tachy-monica syndrome: (2) Atrial flutter with rapid ventricular response: (3) Influenza A: (4) Anticoagulant long-term use: Patient is still demonstrating widely varying heart rate (tachy-monica syndrome), pacemaker placement planned for later today. Aggressive negative chronotropic therapy can be initiated once the pacemaker is in place. Currently on verapamil 120 mg daily and metoprolol 25 mg t.i.d.. Resume rivaroxaban post procedure (once hemostasis ensured). Further recommendations based on response to medical therapy post pacemaker placement. Admission and Anticipated Discharge Date Admission Date: July 31, 2019 Subjective Patient comfortable at rest with no dyspnea or chest pain. She does note dyspnea on exertion. She remained in sinus much of the night (rate 60-80 bpm) but reverted to atrial flutter early this morning with high ventricular rates (up to 170 bpm). Pacemaker planned for later today. Physical Exam Physical Exam: No distress. Appears comfortable. Skin: No unusual lesions or ecchymosis. HEENT: Unremarkable. Neck: Jugular venous at the clavicle at 90, no carotid bruits. Lungs: Moderately decreased breath sounds, generally clear at rest, scattered wheezing on forced exhalation. Cardiac: irregular rhythm, tachycardic. No obvious murmur or gallop. Abdomen: Benign. Extremities: Nontender without edema. Intact peripheral pulses. Neurologic: Normal affect, nonfocal Results & Data ([facility]) Vital Signs (Past 12 Hours) Vital Signs Temp Pulse Pulse Resp BP BP Pulse Ox 08/04/19 07:20 98.1 F 57 L 18 146/78 H 95 08/04/19 03:00 97.5 F L 58 L 18 129/78 97 08/04/19 00:38 62 08/04/19 00:18 97.5 F L 62 20 144/77 H 95 PG Care Time/CCT Total # of Minutes Spent Total Time Spent with Patient: Total time spent is greater than 50% in coordination of care (as documented) at patient's floor/unit and/or counseling patient: Coding Level of Care Code 32319 Subseq Hosp Care Lvl 3 Diagnoses Tachy-monica syndrome I49.5 Atrial flutter with rapid ventricular response I48.92 Influenza A J10.1 Anticoagulant long-term use Z79.01
[2019-08-04] MEDS ORDERED: BACITRACIN INJ 50,000 UNIT VIAL ONE (12:24)
[2019-08-04] MEDS ORDERED: BACITRACIN OINT 0.9 GM PKT ONE (12:24)
[2019-08-04] MEDS ORDERED: LIDOCAINE HCL 1% 20 ML VIAL ONE (12:24)
[2019-08-04] MEDS ORDERED: MIDAZOLAM HCL 5 MG/ML 1 ML VIAL ONE ×2 (12:25→13:15)
[2019-08-04] MEDS ORDERED: fentaNYL citrate 100 MCG/2 ML VIAL ONE ×2 (12:26→13:15)
[2019-08-04] MEDS ORDERED: CLINDAMYCIN PHOS 300 MG/2 ML VIAL ONE (12:27)
--- NOTE | 2019-08-04 12:39 | Pre Anesthesia Assessment ---
Date of Service August 04, 2019 Pre Sedation Assessment Vital Signs Temp Pulse Pulse Pulse Resp BP BP 08/04/19 12:30 79 18 156/88 H 08/04/19 12:28 36.6 C 93 H 20 168/73 H 08/04/19 07:20 36.7 C 57 L 18 146/78 H 08/04/19 03:00 36.4 C L 58 L 18 129/78 08/04/19 00:38 62 08/04/19 00:18 36.4 C L 62 20 144/77 H 08/03/19 19:00 36.5 C 56 L 19 136/83 08/03/19 15:22 53 L 08/03/19 14:56 36.6 C 65 18 129/66 Pulse Ox 08/04/19 12:30 98 08/04/19 12:28 94 08/04/19 07:20 95 08/04/19 03:00 97 08/04/19 00:38 08/04/19 00:18 95 08/03/19 19:00 97 08/03/19 15:22 08/03/19 14:56 94 Cardiovascular + irregularly irregular Respiratory normal respiratory effort, lungs clear to auscultation Pre-Sedation Airway Assessment Smoking Status: Former smoker Short, Thick Neck: No Oral Cavity: + Dentures Mallampati Class: III ASA: ASA3 NPO Status Date of Last Intake of Fluids: 08/03/19 Time of Last Intake of Fluids: 20:00 Date of Last Intake of Solid Food: 08/03/19 Time of Last Intake of Solid Foods: 20:00 Procedure Planning Contraindications for Sedation: none Current Medications Reviewed: Yes Notes The planned sedation has been discussed with the patient. Informed Consent was obtained. I have identified the patient, determined the appropriateness of sedation and have assessed the patient immediately prior to the procedure. All medicine(s) and interventions are by my order.
[2019-08-04] MEDS ORDERED: IBUTILIDE FUMARATE 0.1 MG/ML 10 ML VIAL IV ONE ×2 (13:00→13:16)
--- NOTE | 2019-08-04 13:19 | Hospitalist Progress Note ---
Date of Service August 04, 2019 Assessment & Plan (1) Atrial flutter with rapid ventricular response: Patient has been up and down with heart rate. Atrial flutter 4:1 AV conduction block to up to 160. - Plan for dual-chamber pacemaker on Friday. - Continue telemetry monitoring. - Continue beta-alec & calcium channel alec -> Plan for pacemaker today with Dr. Ramires. (2) Influenza A: Patient febrile, tachycardic, tachypneic. Adequate oxygenation on room air, no evidence of pneumonia on chest x-ray. - Patient will continue on tamiflu BID (End date: 08/04/2019). Droplet precautions Supportive care with IV fluids, nebs as needed, Tessalon Perles as needed, Tylenol -> She is still feeling well. (3) Atrial fibrillation: Patient with history of atrial fibrillation, presently in accelerated junctional rhythm. Blood pressure stable. Continue metoprolol 25 mg p.o.TID daily Continue verapamil 120 mg p.o. daily Hold rivaroxaban for pacemaker (4) Diabetes mellitus type 2, uncontrolled: Blood sugar elevated at 221. Last hemoglobin A1c on 06/08/2019 = 8.3%. We will hold oral agents, glipizide and linagliptin Lower Lantus to 15 units nightly with insulin sliding scale. Goal blood sugar 100 - 140. Presently near goal, but somewhat low in the morning. Continue Lyrica 75 mg p.o. twice daily (5) Hypercholesterolemia: Chronic. Stable. Continue atorvastatin 40 mg p.o. nightly (6) Gastroesophageal reflux disease: Chronic. Stable. Continue Protonix (7) Depression: Chronic. Stable. Well-controlled. Continue Cymbalta 60 mg p.o. every morning (8) Hypothyroidism: Chronic. Stable. TSH = 1.73. Continue Synthroid 37.5 mcg p.o. every morning (9) Breast cancer: Continue anastrozole 1 mg p.o. every morning (10) DVT prophylaxis: SCDs - Will restart anticoagulation after procedure Admission and Anticipated Discharge Date Admission Date: July 31, 2019 Subjective Doing well overall. No shortness of breath. Minimal cough. She is nervous for her pacemaker. Reports no fevers/chills, chest pain, abdominal pain, nausea, or vomiting. Physical Exam Constitutional: WD/WN, vitals as above Eyes: EOM intact bilaterally; no conjunctival abnormality ENMT: external ear and nose normal, oropharynx normal Neck: trachea midline, no thyromegaly normal visual inspection Respiratory: normal respiratory effort, lungs clear to auscultation no respiratory distress Cardiovascular: RRR, no murmur, no edema Rate/Rhythm: regular rate; not bradycardic Heart Sounds: normal S1 and normal S2 Gastrointestinal (Abdomen): Inspection/Auscultation: abdomen normal to inspection; abdomen not distended Musculoskeletal: no cyanosis or clubbing, extremities motor strength 5/5 Skin: no rashes, warm and dry Neurologic: moves all extremities and awake Psychiatric: Orientation: alert, oriented to person and cooperative Results & Data ([facility]) Vital Signs (Past 12 Hours) Vital Signs Temp Pulse Pulse Resp BP Pulse Ox 08/04/19 12:30 79 18 156/88 H 98 08/04/19 12:28 36.6 C 93 H 20 168/73 H 94 08/04/19 07:20 36.7 C 57 L 18 146/78 H 95 08/04/19 03:00 36.4 C L 58 L 18 129/78 97 PG Care Time/CCT Total # of Minutes Spent Total Time Spent with Patient: Total time spent is greater than 50% in coordination of care (as documented) at patient's floor/unit and/or counseling patient: Coding Level of Care Code 59846 Subseq Hosp Care Lvl 2 Diagnoses Atrial flutter with rapid ventricular response I48.92 Influenza A J10.1 Atrial fibrillation I48.91 Atrial fibrillation type: unspecified Diabetes mellitus type 2, uncontrolled E11.65 Glycemic state: with hyperglycemia Hypercholesterolemia E78.00 Gastroesophageal reflux disease K21.9 Esophagitis presence: esophagitis presence not specified Depression F32.9 Depression Type: unspecified Hypothyroidism E03.9 Hypothyroidism type: unspecified Breast cancer C50.919 Breast location: unspecified site of breast Estrogen receptor status: unspecified Patient sex: female Laterality: unspecified laterality DVT prophylaxis Z29.9 (1) Atrial fibrillation Atrial fibrillation type: unspecified Qualified Code(s): I48.91 - Unspecified atrial fibrillation (2) Diabetes mellitus type 2, uncontrolled Glycemic state: with hyperglycemia Qualified Code(s): E11.65 - Type 2 diabetes mellitus with hyperglycemia (3) Gastroesophageal reflux disease Esophagitis presence: esophagitis presence not specified Qualified Code(s): K21.9 - Gastro-esophageal reflux disease without esophagitis (4) Depression Depression Type: unspecified Qualified Code(s): F32.9 - Major depressive disorder, single episode, unspecified (5) Hypothyroidism Hypothyroidism type: unspecified Qualified Code(s): E03.9 - Hypothyroidism, unspecified (6) Breast cancer Breast location: unspecified site of breast Estrogen receptor status: unspecified Patient sex: female Laterality: unspecified laterality Qualified Code(s): C50.919 - Malignant neoplasm of unspecified site of unspecified female breast
[2019-08-04] MEDS ORDERED: METOPROLOL TARTRATE 1 MG/ML VIAL IV ONE (13:22)
[2019-08-04] MEDS ORDERED: KETOROLAC TROMETHAMINE 10 MG TABLET PO PRN (14:09)
--- NOTE | 2019-08-04 14:09 | Electrophysiology Report ---
Date of Service August 04, 2019 Electrophysiology Procedure Electrophysiology Procedure Report Preoperative diagnosis: Sick sinus syndrome Postoperative diagnosis: Same Procedure: 1. Left subclavian venogram 2. 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 Dye was injected the left arm IV site to opacify the left subclavian vein. The subclavian vein was identified and found to be free of obstruction. The left prepectoral region was anesthetized with 1% lidocaine local anesthetic and left axillary venipuncture was performed by percutaneous technique and a guidewire placed through the left subclavian vein into the superior vena cava. The area was further infiltrated with 1% lidocaine local anesthetic and a 5 cm incision was made parallel to the left clavicle and 2 cm below it and carried down to the anterior pectoralis fascia. A pacemaker pocket was formed by blunt dissection anterior to the pectoralis fascia and a bacitracin-soaked sponge (50,000 units in 50 cc normal saline solution) was placed in the pocket. An 8 [place] [employer] lead introducer was placed over the guidewire into the left subclavian vein, the dilator and guidewire were removed and a bipolar active fixation steroid tipped ventricular lead was advanced through the introducer into the superior vena cava. A guidewire was placed through the introducer and the introducer was stripped from the lead and guidewire. Another 8 [place] Med[employer] lead introducer was placed over the guidewire into the left subclavian vein, the dilator and guidewire were removed and a bipolar active fixation steroid tipped atrial lead was advanced through the introducer into the superior vena cava. A guidewire was placed back through the introducer and the introducer was stripped from the lead and guidewire. Using a curved stylette the ventricular lead was advanced through the right ventricular outflow tract into the pulmonary artery and then using a straight stylette was positioned in the right ventricular apex. The screw was extended fi kelsey the lead in position. Pacing and sensing thresholds were evaluated in bipolar configuration and are recorded on the implant data sheet. Using a curved stylette the atrial lead was positioned in the region of the atrial appendage and the screw extended fixing the lead in position. Pacing and sensing thresholds were evaluated in bipolar configuration and are recorded on the implant data sheet. Once the leads were in position they were attached to the anterior pectoralis fascia using 2 sutures of 2-0 silk around each lead collar. The bacitracin- soaked sponge was removed from the pocket, hemostasis was obtained, the pacemaker was attached to the leads and placed in the pocket with the leads coiled beneath it. The incision was closed with a running double subcutaneous closure of 3-0 Vicryl absorbable suture, followed by running subcuticular skin closure of 4-0 Vicryl absorbable suture. Bacitracin ointment was placed on the incision and a pressure dressing applied. [facility] Electrophysiology codes Pacing Procedure 1: Pacin Insert/Replace Pacer A & V Miscellaneous Procedures Procedure 1: EP Miscellaneous: 73403 Contrast injection for venography Procedure 2: EP Miscellaneous: 70966-62 Vengraphy, extremity PG Moderate Sedation Codes Moderate Sedation Codes Procedure 1: Sedation/Anesthesia: 35994 Mod Sedation by the same physician;Init15 Min Child Age 5 & Up Procedure 2: Sedation/Anesthesia: 92103 Mod Sedation by the same physician; Ea [id number] Minutes
[2019-08-04] MEDS ORDERED: METOPROLOL TARTRATE 50 MG TAB PO STA (14:18)
[2019-08-04] MEDS ORDERED: Nursing to Pharmacy Communication ONE (14:59)
[2019-08-04] MEDS: LACTATED RINGER'S 1,000 ML IV SCH ×2 (16:16→23:01)
--- NOTE | 2019-08-04 16:18 | Electrocardiogram Report ---
Test Reason : Blood Pressure : / mmHG Vent. Rate : 101 BPM Atrial Rate : 101 BPM P-R Int : 218 ms QRS Dur : 078 ms QT Int : 380 ms P-R-T Axes : 078 008 020 degrees QTc Int : 493 ms Atrial-paced rhythm with prolonged AV conduction Prolonged QT Abnormal ECG When compared with ECG of 03-AUG-2019 10:08, Electronic atrial pacemaker has replaced Sinus rhythm Vent. rate has increased BY 42 BPM QT has lengthened Confirmed by Lakhwinder Acosta ([id number]) on 08/04/2019 4:17:59 PM Referred By: REFERRED SELF Confirmed By:Lakhwinder Acosta
[2019-08-04] MEDS: ACETAMINOPHEN 325 MG TAB PO PRN (20:05)
[2019-08-04] MEDS: ATORVASTATIN 40 MG TAB PO SCH (20:06)
[2019-08-04] MEDS: METOPROLOL TARTRATE 50 MG TAB PO SCH (20:07)
[2019-08-04] MEDS: INSULIN GLARGINE SOLOSTAR 100 UNITS/ML 3 ML PEN SQ SCH (20:07)
[2019-08-05] MEDS: LEVOTHYROXINE SODIUM 25 MCG TABLET PO SCH (05:44)
[2019-08-05] MEDS: ACETAMINOPHEN 325 MG TAB PO PRN ×3 (06:49→23:31)
--- NOTE | 2019-08-05 07:04 | XRay Report ---
XR chest 2V PA/lateral CLINICAL HISTORY: Pacemaker insertion. COMPARISON STUDY: Chest radiograph July 31, 2019. FINDINGS: Left shoulder arthroplasty is incidentally noted. There is no pneumothorax following placem ent of a dual lead left subclavian pacemaker. Lead tip projects over the right atrial appendage and r ight ventricle. Patient is rotated. There is no evidence for pulmonary edema or pneumonia. IMPRESSION: No pneumothorax following placement of a dual lead left subclavian pacemaker. ACT 112: Negative or not required by law. Electronically signed by: Eladio Keane M.D. 08/05/2019 7:03 AM
[2019-08-05] MEDS: INSULIN ASPART 100 UNITS/ML 3 ML PEN SC SCH ×4 (08:56→20:10)
[2019-08-05] MEDS: lisinopriL 10 MG TAB PO SCH (08:57)
[2019-08-05] MEDS: DULOXETINE HCL 60 MG CAP PO SCH (08:57)
[2019-08-05] MEDS: PANTOprazole 40 MG TAB PO SCH (08:57)
[2019-08-05] MEDS: BENZONATATE 100 MG CAPSULE PO SCH ×3 (08:58→20:20)
[2019-08-05] MEDS: ANASTROZOLE 1 MG TAB PO SCH (08:58)
[2019-08-05] MEDS: VERAPAMIL HCL 120 MG TABCR PO SCH (08:58)
[2019-08-05] MEDS: METOPROLOL TARTRATE 50 MG TAB PO SCH (08:58)
[2019-08-05] MEDS: PREGABALIN 75 MG CAP PO SCH ×2 (09:01→20:01)
--- NOTE | 2019-08-05 10:12 | Cardiology Progress Note ---
Date of Service August 05, 2019 Assessment & Plan (1) Tachy-monica syndrome: She has tachybradycardia syndrome with tachycardia due to atrial fibrillation and atrial flutter with heart rates of 140 to 150 bpm, with treatment of her tachycardia she returned to sinus rhythm with a heart rate in the 40s. She has symptoms of palpitations and presyncope with the tachycardia, she has feelings of extreme fatigue and tiredness with the bradycardia during sinus rhythm. We were not be able to treat both with simple medical management. I implanted a dual-chamber pacemaker for bradycardia support and then increase her beta-alec to control the tachycardia. That has worked to control her symptoms, she is surprised that she no longer has palpitations and feels stronger and more energetic with good heart rate control. She did take Xarelto in the morning and it was held for her surgery, it should be safe to start it now as she has no evidence of bleeding. Her blood pressure is elevated, her heart rate is still fast at times and I am going to increase her beta-alec today. We will keep her another day. (2) HBP (high blood pressure): Despite the increase in beta-blockade she still has significant hypertension. I am going to increase her beta-alec today in part to control her heart rate but will help with her blood pressure as well. (3) Status post placement of cardiac pacemaker: She is doing well postop, the site looks good, measurements are excellent and she has no significant incisional discomfort. The site looks good with no bleeding. Admission and Anticipated Discharge Date Admission Date: July 31, 2019 Subjective She is feeling better today following pacemaker implantation. She has fewer palpitations, she feels more energetic with activities in the room and overall feels more comfortable with her rhythm. She does not have any excessive discomfort at the site although it is a little bit sore. Physical Exam Physical Exam: The pacemaker implantation site is looks clean and dry, there is no swelling or erythema. No significant bleeding on the dressing. Results & Data ([facility]) Vital Signs (Past 12 Hours) Vital Signs Temp Pulse Pulse Resp BP Pulse Ox 08/05/19 06:55 36.4 C L 97 H 19 151/97 H 98 08/05/19 03:25 36.6 C 76 18 125/73 96 08/05/19 01:17 107 H 08/04/19 23:33 36.7 C 69 18 128/75 97 Laboratory Results Intake and Output 08/04/19 08/05/19 08/05/19 22:59 06:59 14:59 Intake Total 560 / 800 240 / 800 Balance 560 / 800 240 / 800 Intake: Oral 560 / 800 240 / 800 Other: # Unmeasured Voids 560 2 Weight 93 kg Diagnostic Findings Electrocardiogram: Post pacemaker implantation shows atrial pacing appropriately Telemetry: Her overall heart rate is well controlled since pacemaker implantation, she is atrial pacing perhaps a third of the time and in atrial fibrillation the other two thirds with a controlled heart rate except a few times when she is active. Chest x-ray: Good lead position, no pneumothorax Pacemaker: Excellent pacing and sensing characteristics PG Care Time/CCT Total # of Minutes Spent Total Time Spent with Patient: Total time spent is greater than 50% in coordination of care (as documented) at patient's floor/unit and/or counseling patient: Coding Level of Care Code 75832 Post Operative Follow-Up Diagnoses Tachy-monica syndrome I49.5 HBP (high blood pressure) I10 Status post placement of cardiac pacemaker Z95.0 CPT Codes Dual Lead Pacemaker System - 54308 ([id number])
[2019-08-05] MEDS ORDERED: METOPROLOL TARTRATE 25 MG TAB PO ONE (10:30)
[2019-08-05] MEDS ORDERED: RIVAROXABAN 20 MG TAB PO SCH (13:30)
--- NOTE | 2019-08-05 14:24 | Cardiology Progress Note ---
Date of Service August 05, 2019 Assessment & Plan (1) Tachy-monica syndrome: Status post pacemaker. Agree with upward titration of beta-alec to achieve ventricular rate less than 100 bpm. Follow-up with Dr. Ramires for postop pacemaker check in the near term, I can follow her up for routine cardiology care in 2-4 months. (2) HBP (high blood pressure): EP mostly normotensive today. If she does remain hypertensive despite upward titration of beta-alec, could also increase long-acting verapamil 120 mg daily to 180 mg daily (3) Status post placement of cardiac pacemaker: Settings per Dr. Ramires. Admission and Anticipated Discharge Date Admission Date: July 31, 2019 Subjective She underwent pacemaker placement yesterday, no complications. She denied any chest pain or dyspnea at rest. Rhythm is variable, mostly atrial flutter with periods of electronic atrial a nd/or ventricular pacing. Rate was suboptimally controlled through the night (episodically 130 bpm), but seems to be improving by late morning (80-100 bpm). Physical Exam Physical Exam: No distress. Appears comfortable. Skin: No unusual lesions or ecchymosis. HEENT: Unremarkable. Neck: Jugular venous at the clavicle at 90, no carotid bruits. Lungs: Moderately decreased breath sounds, generally clear at rest, persistent wheezing on forced exhalation. Cardiac: variable rhythm, but not tachycardic. No obvious murmur or gallop. Abdomen: Benign. Extremities: Nontender without edema. Intact peripheral pulses. Neurologic: Normal affect, nonfocal Results & Data ([facility]) Vital Signs (Past 12 Hours) Vital Signs Temp Pulse Resp BP Pulse Ox 08/05/19 11:16 97.5 F L 85 20 130/74 96 08/05/19 06:55 97.5 F L 97 H 19 151/97 H 98 08/05/19 03:25 97.9 F 76 18 125/73 96 PG Care Time/CCT Total # of Minutes Spent Total Time Spent with Patient: Total time spent is greater than 50% in coordination of care (as documented) at patient's floor/unit and/or counseling patient: Coding Level of Care Code 12369 Subseq Hosp Care Lvl 3 Diagnoses Tachy-monica syndrome I49.5 HBP (high blood pressure) I10 Status post placement of cardiac pacemaker Z95.0
--- NOTE | 2019-08-05 14:24 | Hospitalist Progress Note ---
Date of Service August 05, 2019 Assessment & Plan (1) Atrial flutter with rapid ventricular response: Patient has been up and down with heart rate. Atrial flutter 4:1 AV conduction block to up to 160. - Dual-chamber pacemaker inserted on 08/[address] Ramires; no complications. - Continue telemetry monitoring. - Continue beta-alec & calcium channel alec -> Increased today by Dr. Ramires for continued high HRs. (2) Influenza A: Patient febrile, tachycardic, tachypneic. Adequate oxygenation on room air, no evidence of pneumonia on chest x-ray. - Patient finished Tamiflu on 08/04/2019. Droplet precautions Supportive care with nebs as needed, Tessalon Perles as needed, Tylenol -> She is still feeling well. (3) Atrial fibrillation: Patient with history of atrial fibrillation, presently in accelerated junctional rhythm. Blood pressure stable. Continue metoprolol 75 mg p.o.BID Continue verapamil 120 mg p.o. daily Restart rivaroxaban (4) Diabetes mellitus type 2, uncontrolled: Blood sugar elevated at 221. Last hemoglobin A1c on 06/08/2019 = 8.3%. We will hold oral agents, glipizide and linagliptin Lower Lantus to 15 units nightly with insulin sliding scale. Goal blood sugar 100 - 140. Presently near goal, but somewhat low in the morning. Continue Lyrica 75 mg p.o. twice daily (5) Hypercholesterolemia: Chronic. Stable. Continue atorvastatin 40 mg p.o. nightly (6) Gastroesophageal reflux disease: Chronic. Stable. Continue Protonix (7) Depression: Chronic. Stable. Well-controlled. Continue Cymbalta 60 mg p.o. every morning (8) Hypothyroidism: Chronic. Stable. TSH = 1.73. Continue Synthroid 37.5 mcg p.o. every morning (9) Breast cancer: Continue anastrozole 1 mg p.o. every morning (10) DVT prophylaxis: Xarelto Admission and Anticipated Discharge Date Admission Date: July 31, 2019 Subjective No major concerns today. Still with a dry cough. Reports no fevers/chills, chest pain, shortness of breath, abdominal pain, nausea, or vomiting. Physical Exam Constitutional: WD/WN, vitals as above Eyes: EOM intact bilaterally; no conjunctival abnormality ENMT: external ear and nose normal, oropharynx normal Neck: trachea midline, no thyromegaly normal visual inspection Respiratory: normal respiratory effort, lungs clear to auscultation no respiratory distress Cardiovascular: RRR, no murmur, no edema Rate/Rhythm: regular rate; not bradycardic Heart Sounds: normal S1 and normal S2 Gastrointestinal (Abdomen): Inspection/Auscultation: abdomen normal to inspection; abdomen not distended Musculoskeletal: no cyanosis or clubbing, extremities motor strength 5/5 Skin: no rashes, warm and dry Neurologic: moves all extremities and awake Psychiatric: Orientation: alert, oriented to person and cooperative Results & Data ([facility]) Vital Signs (Past 12 Hours) Vital Signs Temp Pulse Resp BP Pulse Ox 08/05/19 11:16 36.4 C L 85 20 130/74 96 08/05/19 06:55 36.4 C L 97 H 19 151/97 H 98 08/05/19 03:25 36.6 C 76 18 125/73 96 PG Care Time/CCT Total # of Minutes Spent Total Time Spent with Patient: Total time spent is greater than 50% in coordination of care (as documented) at patient's floor/unit and/or counseling patient: Coding Level of Care Code 19620 Subseq Hosp Care Lvl 2 Diagnoses Atrial flutter with rapid ventricular response I48.92 Influenza A J10.1 Atrial fibrillation I48.91 Atrial fibrillation type: unspecified Diabetes mellitus type 2, uncontrolled E11.65 Glycemic state: with hyperglycemia Hypercholesterolemia E78.00 Gastroesophageal reflux disease K21.9 Esophagitis presence: esophagitis presence not specified Depression F32.9 Depression Type: unspecified Hypothyroidism E03.9 Hypothyroidism type: unspecified Breast cancer C50.919 Breast location: unspecified site of breast Estrogen receptor status: unspecified Patient sex: female Laterality: unspecified laterality DVT prophylaxis Z29.9 (1) Atrial fibrillation Atrial fibrillation type: unspecified Qualified Code(s): I48.91 - Unspecified atrial fibrillation (2) Diabetes mellitus type 2, uncontrolled Glycemic state: with hyperglycemia Qualified Code(s): E11.65 - Type 2 diabetes mellitus with hyperglycemia (3) Gastroesophageal reflux disease Esophagitis presence: esophagitis presence not specified Qualified Code(s): K21.9 - Gastro-esophageal reflux disease without esophagitis (4) Depression Depression Type: unspecified Qualified Code(s): F32.9 - Major depressive disorder, single episode, unspecified (5) Hypothyroidism Hypothyroidism type: unspecified Qualified Code(s): E03.9 - Hypothyroidism, unspecified (6) Breast cancer Breast location: unspecified site of breast Estrogen receptor status: unspecified Patient sex: female Laterality: unspecified laterality Qualified Code(s): C50.919 - Malignant neoplasm of unspecified site of unspecified female breast
[2019-08-05] MEDS: ATORVASTATIN 40 MG TAB PO SCH (20:01)
[2019-08-05] MEDS: METOPROLOL TARTRATE 25 MG TAB PO SCH (20:02)
[2019-08-05] MEDS: INSULIN GLARGINE SOLOSTAR 100 UNITS/ML 3 ML PEN SQ SCH (20:07)
[2019-08-06] MEDS: LEVOTHYROXINE SODIUM 25 MCG TABLET PO SCH (05:35)
[2019-08-06] MEDS: PREGABALIN 75 MG CAP PO SCH (08:59)
[2019-08-06] MEDS: METOPROLOL TARTRATE 25 MG TAB PO SCH (08:59)
[2019-08-06] MEDS: ANASTROZOLE 1 MG TAB PO SCH (08:59)
[2019-08-06] MEDS: lisinopriL 10 MG TAB PO SCH (08:59)
[2019-08-06] MEDS: DULOXETINE HCL 60 MG CAP PO SCH (08:59)
[2019-08-06] MEDS: PANTOprazole 40 MG TAB PO SCH (09:00)
[2019-08-06] MEDS: VERAPAMIL HCL 120 MG TABCR PO SCH (09:00)
[2019-08-06] MEDS: INSULIN ASPART 100 UNITS/ML 3 ML PEN SC SCH ×2 (09:01→12:51)
[2019-08-06] MEDS: BENZONATATE 100 MG CAPSULE PO SCH ×2 (09:05→12:58)
[2019-08-06] MEDS: ACETAMINOPHEN 325 MG TAB PO PRN (09:05)
--- NOTE | 2019-08-06 16:48 | Discharge Summary ---
Date of Service August 06, 2019 Admission HPI Per Admitting Provider Faith Solorzano is a 69-year-old female with multiple medical problems presenting with influenza A. She reports 2 days of constant cough productive for green sputum, right-sided headache, congestion, sore throat, subjective fevers and chills. Otherwise denies chest pain/palpitations/shortness of breath/abdominal pain/nausea/vomiting/diarrhea/constipation. No additional complaints at this time On arrival to the ER she found to be febrile at 38.2, tachycardic at 160 bpm, tachypneic at 25 breaths/min, adequate saturation of 96% on room air ER course: Tylenol, Benadryl, magnesium, Phenergan Principal Diagnosis 1) Influenza 2) Tachy-monica syndrome Discharge Exam Constitutional WD/WN, vitals as above Eyes EOM intact bilaterally; no conjunctival abnormality ENMT external ear and nose normal, oropharynx normal Neck trachea midline, no thyromegaly normal visual inspection Respiratory normal respiratory effort, lungs clear to auscultation no respiratory distress Cardiovascular RRR, no murmur, no edema Rate/Rhythm: regular rate; not bradycardic Heart Sounds: normal S1 and normal S2 Gastrointestinal (Abdomen) Inspection/Auscultation: abdomen normal to inspection; abdomen not distended Musculoskeletal no cyanosis or clubbing, extremities motor strength 5/5 Skin no rashes, warm and dry Neurologic moves all extremities and awake Psychiatric Orientation: alert, oriented to person and cooperative Discharge Data Allergies Allergy/AdvReac Type Severity Reaction Status Date / Time meperidine [From Demerol] AdvReac Mild Not Verified 07/29/19 21:36 tolerated. venlafaxine [From Effexor] AdvReac Mild Not Verified 07/29/19 21:36 tolerated metformin AdvReac Unknown INSOMNIA Verified 07/29/19 21:36 amoxicillin [From Augmentin] AdvReac Verified 07/29/19 21:36 clavulanic acid AdvReac Verified 07/29/19 21:36 [From Augmentin] Consultations 07/29/19 22:53 ED Decision to Admit Stat 08/01/19 08:42 Consult Cardiology Routine Procedures Performed Operation Date: 08/04/19 12:30 Actual Procedures p Pacer with A/V Leads (Dual) - Huy Ramires MD s Venogram, Unilateral - Huy Ramires MD Ordered Studies 07/29/19 21:44 CT head/brain wo con Stat 08/04/19 12:27 CL Cath Imgs for PACS use only Routine Hospital Course (1) Atrial flutter with rapid ventricular response: Patient has been up and down with heart rate. Atrial flutter 4:1 AV conduction block to up to 160. - Dual-chamber pacemaker inserted on 08/[address] Ramires; no complications. - Continue telemetry monitoring. - Continue beta-alec & calcium channel alec -> Increased today by Dr. Ramires for continued high HRs. - Discharged on metoprolol XL and verapamil. Should try to touch base in a week or so to try to see how her rate is and adjust meds as needed. (2) Influenza A: Patient febrile, tachycardic, tachypneic. Adequate oxygenation on room air, no evidence of pneumonia on chest x-ray. - Patient finished Tamiflu on 08/04/2019. Droplet precautions Supportive care with nebs as needed, Tessalon Perles as needed, Tylenol -> She is still feeling well. (3) Atrial fibrillation: Patient with history of atrial fibrillation, presently in accelerated junctional rhythm. Blood pressure stable. Continue metoprolol and verapamil Restarted rivaroxaban (4) Diabetes mellitus type 2, uncontrolled: Blood sugar elevated at 221. Last hemoglobin A1c on 06/08/2019 = 8.3%. Held oral agents, glipizide and linagliptin while inpatient. Lowered Lantus while inpatient as her blood sugars were decently controlled on the hospital diet. Overall, her A1c is high enough that she was discharged back on home regimen, but counseled to watch for low blood sugars. Continue Lyrica 75 mg p.o. twice daily (5) Hypercholesterolemia: Chronic. Stable. Continue atorvastatin 40 mg p.o. nightly (6) Gastroesophageal reflux disease: Chronic. Stable. Continue Protonix (7) Depression: Chronic. Stable. Well-controlled. Continue Cymbalta 60 mg p.o. every morning (8) Hypothyroidism: Chronic. Stable. TSH = 1.73. Continue Synthroid 37.5 mcg p.o. every morning (9) Breast cancer: Continue anastrozole 1 mg p.o. every morning (10) DVT prophylaxis: Xarelto Total Time Total Time Spent Total Time Spent (In Minutes): 35 Discharge Plan Discharge Items Patient Disposition: Home - Self-Care Reason For Visit: INFLUENZA Discharge Diagnosis: Influenza & tachy-monica syndrome Activity: Per Instructions section Bathing Comment: After dressing is removed the incision can be washed gently but not scrubbed Non-emergency contact: Primary Care Provider Call non-emergency contact if: you have any medication questions Follow-up/Referrals: Jarod Lovett MD [Primary Care Provider] - 08/10/19 11:00 am (YOUR FOLLOW-UP APPT IS WITH MIRIAM BAHENA @ [facility]. ) Huy Ramires MD [Physician] - 09/06/19 11:45 am Diet: Carb Consistent or DM2 and Heart Healthy Addtl Attending Provider Instructions: You have been hospitalized for an acute medical problem. During your stay at [facility], we have made an effort to correct the problem that brought you to the hospital while keeping you as comfortable as possible. Medications were used to bring your condition under control and your discharge instructions will include directions for any medications you should take after leaving the hospital. Please make sure you see your Primary Care Provider as part of your follow up plan. Will be switching the twice a day metoprolol tartrate to the once a day metoprolol succinate, as the succinate should not affect lower your blood pressure as much. ACTIVITY RECOMMENDATIONS: * Do not raise affected arm over head for 2 weeks. SPECIAL CARE INSTRUCTIONS: * If bleeding occurs, apply direct pressure to area for 5 minutes. * Call your doctor if you have severe pain, fever, drainage or bleeding at site. * Keep dressing on and dry for 24 hours then remove. * Keep any scheduled doctor's appointment. * Implant Card - hand held device with website information given. SKIN IRRITATION: * You may experience some redness and/or swelling in the area where radiation was administered. If any skin irritation occurs, please contact your family physician. FOLLOW UP VISIT: Keep any scheduled doctor appointments. Pending Studies at Discharge: No Stand-Alone Forms: My [facility], Smoking Cessation Medications and DC Order Prescriptions: New metoprolol succinate [Toprol XL] 50 mg tablet extended release 24 hr 50 mg PO PM Qty: 30 RF: 0 Continued cyanocobalamin (vitamin B-12) 1,000 mcg/mL kit 1,000 mcg IM MONTHLY RF: 0 lisinopril 10 mg tablet 10 mg PO QAM RF: 0 multivitamin tablet 1 tab PO QAM RF: 0 glipizide 10 mg tablet 10 mg PO BID Qty: 180 RF: 3 meclizine 25 mg tablet 25 mg PO Q6H PRN (Reason: dizziness) Qty: 30 RF: 0 (DME) blood-glucose meter [OneTouch UltraMini] kit See Dose Instructions .ROUTE .MEDSUPPLY Qty: 1 RF: 0 (DME) OneTouch Ultra Blue Test Strip strip See Dose Instructions .ROUTE .MEDSUPPLY Qty: 10 RF: 0 (DME) lancets [OneTouch Delica Lancets] 33 gauge misc See Dose Instructions .ROUTE .MEDSUPPLY Qty: 100 RF: 0 pregabalin [Lyrica] 75 mg capsule 75 mg PO BID Qty: 60 RF: 5 (DME) blood-glucose meter [OneTouch Ultra2 Meter] misc See Rx Instructions .ROUTE .MEDSUPPLY RF: 0 (DME) pen needle, diabetic [BD Ultra-Fine Dulce Pen Needle] 32 gauge x 5/32" needle See Rx Instructions .ROUTE .MEDSUPPLY RF: 0 cholecalciferol (vitamin D3) [Vitamin D3] 25 mcg (1,000 unit) Capsule 1,000 unit PO QAM RF: 0 verapamil 120 mg tablet extended release 120 mg PO QAM RF: 0 atorvastatin 40 mg tablet 40 mg PO HS RF: 0 anastrozole 1 mg tablet 1 mg PO QAM RF: 0 levothyroxine 25 mcg tablet 37.5 mcg PO QAM RF: 0 pantoprazole 40 mg tablet,delayed release (DR/EC) 40 mg PO QAM RF: 0 duloxetine 60 mg capsule,delayed release(DR/EC) 60 mg PO QAM RF: 0 Lantus Solostar U-100 Insulin 100 unit/mL (3 mL) insulin pen 30 units SQ HS RF: 0 linagliptin 5 mg tablet 5 mg PO QAM RF: 0 Xarelto 20 mg tablet 20 mg PO QAM RF: 0 dextromethorphan polistirex [Delsym 12 hour] 30 mg/5 mL Suspension,Extended Rel 12 Hr 10 ml PO Q12H PRN (Reason: Cough) RF: 0 acetaminophen [Tylenol Extra Strength] 500 mg Tablet 500 mg PO Q6H PRN (Reason: Pain) RF: 0 Discontinued metoprolol tartrate 25 mg tablet 25 mg PO BID Qty: 180 RF: 3 Discharge Orders: Discharge Order (Routine); Ordered 08/06/19 Ordered By: Raffaele Christian Admission Data Admit Date/Time: 07/31/19 11:55 Attending Provider: Raffaele Christian Admit Provider: Yolette Huang Primary Care Provider: Jarod Lovett Other Providers: Asad Daugherty ; Raffaele Christian Other Interventions: Discharge Summary Assessment (RN) Last Done: 08/06/19 13:48 DC Date/Time DO NOT enter until pt leaves facility: 08/06/19 14:30 Coding Level of Care Code D/C Day Management >30 mins Diagnoses Atrial flutter with rapid ventricular response I48.92 Influenza A J10.1 Atrial fibrillation I48.91 Atrial fibrillation type: unspecified Diabetes mellitus type 2, uncontrolled E11.65 Glycemic state: with hyperglycemia Hypercholesterolemia E78.00 Gastroesophageal reflux disease K21.9 Esophagitis presence: esophagitis presence not specified Depression F32.9 Depression Type: unspecified Hypothyroidism E03.9 Hypothyroidism type: unspecified Breast cancer C50.919 Breast location: unspecified site of breast Estrogen receptor status: unspecified Patient sex: female Laterality: unspecified laterality DVT prophylaxis Z29.9
== END 2019-08-06 14:30 | disposition home or self-care (01) | DRG 244 ==
LOC: ED 20:35 → 2N 20:35 → SUATTDRO 07-30 00:31 → 2N 07-30 01:56 → SUATTDRO 07-31 11:55 → 2S 08-04 14:21

== ENCOUNTER 2020-03-24 14:34 | Inpatient (IN) ==
[2020-03-24] MEDS ORDERED: LIDOCAINE/EPINEPHRINE 2% 1:200,000 20 ML SDV INFIL STA (14:44)
[2020-03-24] MEDS ORDERED: LIDOCAINE/EPINEPHRINE 1% 20 ML VIAL ONE (15:12)
[2020-03-24] MEDS ORDERED: ONDANSETRON 4 MG OD TAB ONE (15:13)
--- NOTE | 2020-03-24 15:14 | CT Scan Report ---
CT head/brain wo con CLINICAL HISTORY: Head trauma. Head pain. COMPARISON STUDY: 02/21/2020 TECHNIQUE: Axial CT of the brain is performed from the vertex to the skull base. IV contrast was not administered for this examination. A dose lowering technique was utilized adhering to the principles of ALARA. CT DOSE: 1006.73 mGy.cm FINDINGS: No intra or extra-axial mass lesions are visualized. There is no CT evidence of acute cortical infarc tion. There is no evidence of midline shift. There is no acute hemorrhage. There are patchy white matter hypodensities likely on a small vessel basis. There is no evidence of pathologic ventricular dilatation. There is a right parieto-occipital scalp contusion/hematoma. There is gas present within the left pre maxillary region. There is a possible left inferior orbital rim/floor fracture. A facial CT scan is r ecommended in follow-up. IMPRESSION: 1. No evidence of acute intracranial injury 2. Right parieto-occipital scalp contusion 3. Possible left inferior orbital rim/floor fracture. A facial CT scan is recommended in follow-up ACT 112: Negative or not required by law. Electronically signed by: José Vences M.D. 03/24/2020 3:13 PM
--- NOTE | 2020-03-24 15:18 | CT Scan Report ---
CERVICAL SPINE CT CT DOSE: HISTORY: Neck pain. fall eval for fx TECHNIQUE: Multiaxial CT images of the cervical spine were performed and reformatted in the sagittal and coronal plane without the use of contrast. A dose lowering technique was utilized adhering to th e principles of ALARA. COMPARISON: Cervical spine CT 08/30/2013. FINDINGS: No fractures. Moderate disc space narrowing at C5-C6. There is 2 mm of anterolisthesis of C 5 on C6. The bilateral C5-C6 facets are fused. This is likely due to long-standing degenerative coffey e. Chronic changes again noted at C1-C2. Prevertebral soft tissues and the C1-C2 interval are intact. No pneumothorax. IMPRESSION: No fractures within the cervical spine. ACT 112: Negative or not required by law. Electronically signed by: Shan Hollingsworth M.D. 03/24/2020 3:16 PM
--- NOTE | 2020-03-24 15:31 | Emergency Department Note ---
History of Present Illness General Chief complaint: Head Injury, Minor Stated complaint: FALL HIT HEAD Time Seen by Provider: 03/24/20 14:43 Source: patient History of Present Illness Provider complaint: Headache Onset (ago): hour(s) Location: head Radiation: non-radiation Severity: mild Current Pain Intensity: 0 Quality: + aching Exacerbated By: + none Associated symptoms: no chest pain, no cough, no fever/chills, no nausea/vomiting and no shortness of breath This is a 70-year-old female presents with a very mild headache after falling today. The patient states she was picking up some macaroni and lost her balance and fell backwards hitting her head on the ground. She complains of a mild ache to the back of her head. She has a laceration there with profuse bleeding. She is on Xarelto for atrial fibrillation but has not taking it for the past 3 days as she had left eye surgery earlier today. She notes that she did not hit her face and she had bleeding from the eye as well as the left nostril since her surgery and before her fall. She denies any LOC. She denies any chest pain, shortness of breath, fever, cough or cold symptoms, hip pain, back pain or extremity injury. She was told to resume her Xarelto today. Home Medications Home Medications Medication Instructions Recorded Confirmed Type cyanocobalamin (vitamin B-12) 1,000 mcg IM MONTHLY ea 02/04/18 03/24/20 History 1,000 mcg/mL injection kit multivitamin 1 tab PO QAM 02/04/18 03/24/20 History blood-glucose meter #1 ea 12/24/18 03/22/20 History glipizide 10 mg tablet 10 mg PO BID #180 tab 04/20/19 03/24/20 Rx blood-glucose meter ea 05/04/19 03/22/20 History pen needle, diabetic 32 gauge x ea 05/04/19 03/24/20 History 5/32" Xarelto 20 mg PO DAILY 07/29/19 03/24/20 History acetaminophen [Tylenol Extra 500 mg PO Q6H PRN 07/29/19 03/24/20 History Strength] anastrozole 1 mg PO QAM 07/29/19 03/24/20 History cholecalciferol (vitamin D3) 1,000 unit PO QAM 07/29/19 03/24/20 History [Vitamin D3] dextromethorphan polistirex 10 ml PO Q12H PRN 07/29/19 03/24/20 History [Delsym 12 hour] blood sugar diagnostic #100 ea 09/06/19 03/22/20 Rx pantoprazole 40 mg tablet,delayed 40 mg PO DAILY #90 tab 09/24/19 03/24/20 Rx release duloxetine 60 mg capsule,delayed 60 mg PO QAM #90 cap 10/12/19 03/24/20 Rx release lisinopril 10 mg tablet 10 mg PO QAM #90 tab 10/14/19 03/24/20 Rx levothyroxine 25 mcg tablet 37.5 mcg PO QAM #135 tab 11/02/19 03/24/20 Rx atorvastatin 40 mg tablet 40 mg PO HS #90 tab 11/29/19 03/24/20 Rx dulaglutide 0.75 mg/0.5 mL 0.75 mg SUBCUT .COMPLEX #1 ml 01/12/20 03/24/20 Rx subcutaneous pen injector meclizine 25 mg tablet 25 mg PO Q6H PRN #30 tab 01/12/20 03/24/20 Rx pregabalin 150 mg capsule 150 mg PO BID #180 cap 01/14/20 03/24/20 Rx amiodarone 200 mg tablet 200 mg PO DAILY #60 tab 01/31/20 03/24/20 Rx lancets 33 gauge #300 ea 02/08/20 03/22/20 Rx verapamil 120 mg tablet,extended 120 mg PO QAM #30 tab 03/16/20 03/24/20 Rx release tramadol 50 mg tablet 50 mg PO Q8H PRN #30 tab 03/22/20 03/24/20 Rx insulin glargine [Lantus Solostar 31 unit SQ HS 03/24/20 03/24/20 History U-100 Insulin] Allergies Allergy/AdvReac Type Severity Reaction Status Date / Time meperidine [From Demerol] AdvReac Mild Not Verified 03/24/20 17:52 tolerated. venlafaxine [From Effexor] AdvReac Mild Not Verified 03/24/20 17:52 tolerated metformin AdvReac Unknown INSOMNIA Verified 03/24/20 17:52 amoxicillin [From Augmentin] AdvReac Unknown Verified 03/24/20 17:52 clavulanic acid AdvReac Unknown Verified 03/24/20 17:52 [From Augmentin] Past Med/Surg History Medical History (Updated 03/24/20 @ 19:31 by Curtis Olivera MD) Abdominal wound dehiscence (06/15/14) Arthritis Atrial fibrillation Atrial flutter Breast cancer (12/18/15) "Abnormal left breast mammogram Status post core needle biopsy 12/18/2015 revealing infiltrating ductal carcinoma Estrogen receptor positive, progesterone receptor positive, HER-2/po negative Status post left needle localization lumpectomy and sentinel lymph node biopsy 01/04/2016 Stage pT1c pN0M0 Status post completion of radiation therapy 02/13/2016 received 3850 cGy utilizing accelerated partial breast irradiation." On 01/17/16 14:10 Deidre Orta wrote "Abnormal left breast mammogram Status post core needle biopsy 12/18/2015 revealing infiltrating ductal carcinoma Estrogen receptor positive, progesterone receptor positive, HER-2/po negative Status post left needle localization lumpectomy and sentinel lymph node biopsy 01/04/2016 Stage pT1c pN0M0" Cervical spine disease Chronic anemia Chronic pain Constipation Dehydration Depression Diabetes mellitus type 2, uncontrolled Gait disturbance Gastroesophageal reflux disease Hip bursitis, left Hypercholesterolemia Hypocalcemia Hypothyroidism Incisional hernia Infiltrating ductal carcinoma of left breast Influenza A (07/2019) Internal hemorrhoids Leg weakness, bilateral Lipodystrophy Lumbar radiculopathy Obstructive sleep apnea Peripheral neuropathy Positive ESTEPHANIA (antinuclear antibody) Recurrent incisional hernia with incarceration (05/16/14) Vitamin B12 deficiency Surgical History H/O bilateral hip replacements History of section History of total knee arthroplasty Status post appendectomy Status post arthroscopy of left shoulder Status post gastric bypass for obesity Status post laparoscopic cholecystectomy Status post lumbar spine surgery for decompression of spinal cord Status post panniculectomy Status post partial mastectomy of left breast Status post repair of ventral hernia Status post total abdominal hysterectomy and bilateral salpingo-oophorectomy Status post total hip replacement, bilateral Family History Unknown Emphysema lung Breast cancer Social History Smoking Status: Former smoker Tobacco Type: Cigarettes packs per day: 2; Number of Years Since Quit: 11; Second Hand Exposure: No; Hx Alcohol Use: No Hx Substance Use: No Preferred Language: B[place] Communication Ability: Effective Hearing Ability: Normal 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 and A total of 10 systems reviewed and were otherwise negative Physical Exam Vital Signs Vital Signs - 24 hr 03/24/20 14:42 03/24/20 16:45 03/24/20 17:48 Pulse Rate 122 H Pulse Rate [Left Finger] 74 70 Respiratory Rate 20 16 18 Respiratory Effort / Characteristics Non-Labored Spontaneous Respiratory Depth Normal Respiratory Pattern Regular Blood Pressure 137/65 Blood Pressure [Left Arm] 119/69 98/75 L Blood Pressure Mean 89 Blood Pressure Mean [Left Arm] 85 82 Blood Pressure Position Sitting Pulse Oximetry 100 95 Oxygen Delivery Method Room Air Room Air Room Air Sepsis Recent Fever Within 48 Hours No Sepsis New/Unexplained Change in Mental Status N/A Sepsis Action Taken by Nursing No Action Required 03/24/20 18:46 Pulse Rate Pulse Rate [Left Finger] 71 Respiratory Rate 16 Respiratory Effort / Characteristics Respiratory Depth Respiratory Pattern Blood Pressure Blood Pressure [Left Arm] 115/68 Blood Pressure Mean Blood Pressure Mean [Left Arm] 83 Blood Pressure Position Pulse Oximetry 100 Oxygen Delivery Method Room Air Sepsis Recent Fever Within 48 Hours Sepsis New/Unexplained Change in Mental Status Sepsis Action Taken by Nursing Constitutional: Vital signs reviewed. Eyes: Pupils are equal round reactive to light. Conjunctiva are noninjected. ENT: Ecchymosis to the left suborbital region with Steri-Strips in place. Slight amount of blood coming from the corner of the eye as well as the left nostril. Pharynx is clear without erythema or exudate. Mucous membranes are dry. Neck supple without meningeal signs. No midline tenderness to the cervical spine. Respiratory: Clear to auscultation bilaterally. Breath sounds are equal bilaterally. Cardiovascular: Regular rate and rhythm. No rubs or gallops. GI: Soft, nondistended and nontender. Bowel sounds are present. Musculoskeletal: No peripheral edema. No lower extremity tenderness. Integumentary: No cyanosis. or jaundice. Vertical 6 cm laceration to the occiput with profuse bleeding. Neurologic: The patient is awake and alert. Cranial nerves II-XII are intact. Motor is 5 out of 5 all extremities. Sensation is intact to light touch all extremities. Normal speech. Psychiatric: Normal affect. Not anxious appearing. Course Administered Medications Discontinued Medications Sodium Chloride (Nss 1000ml) 500 mls @ 999 mls/hr IV .Q31M ONE Stop: 03/24/20 17:48 Last Infusion: 03/24/20 18:25 Dose: 0 mls/hr Documented by: [id number] Admin: 03/24/20 17:50 Dose: 999 mls/hr Documented by: [id number] Insulin Human Regular (Novolin-R Insulin Per Unit Charge) 7 units SC NOW STA Stop: 03/24/20 16:59 Last Admin: 03/24/20 17:03 Dose: 7 units Documented by: [id number] Cosigned by: [id number] Lidocaine/Epinephrine (Lidocaine/Epinephrine 2% 1:200,000 20 Ml Sdv) 20 ml INFIL NOW STA Stop: 03/24/20 14:45 Last Admin: 03/24/20 16:00 Dose: Not Given Documented by: [id number] Lidocaine/Epinephrine (Lidocaine/Epinephrine 1% 20 Ml Vial) Confirm Administered Dose 20 ml .ROUTE .STK-MED ONE Stop: 03/24/20 15:13 Last Admin: 03/24/20 16:00 Dose: 20 ml Documented by: [id number] Ondansetron HCl (Ondansetron 4 Mg Od Tab) Confirm Administered Dose 4 mg .ROUTE .STK-MED ONE Stop: 03/24/20 15:14 Last Admin: 03/24/20 15:15 Dose: 4 mg Documented by: [id number] Medical Decision Making Differential Diagnosis ICH, skull fracture, cervical fracture, concussion, scalp laceration Medical Records Attestation: I reviewed the patient's medical records. I did perform a limited focused review of portions of the patient's old chart on the electronic medical record. The patient was seen by her PCP 2 days ago for medical clearance for eye surgery for a blocked tear duct. She is on Xarelto for chronic a flutter/fibrillation. Home Medications Current Medication List: was personally reviewed by me Laboratory Data Attestation: I reviewed the patient's lab results. Result diagrams: 03/24/20 16:14 03/24/20 16:03 Lab Results 03/24/20 03/24/20 03/24/20 Range/Units 16:03 16:03 16:03 WBC (4.8-10.8) K/uL RBC (4.2-5.4) M/uL Hgb (12.0-16.0) g/dL Hct (37-47) % MCV (80-100) fL MCH (25-34) pg MCHC (32-36) g/dL RDW Std Deviation (36.4-46.3) fL RDW Coeff of Thompson (11.5-14.5) % Plt Count (130-400) K/uL MPV (7.4-10.4) fL Immature Gran % (Auto) % Neut % (Auto) % Lymph % (Auto) % [place] % (Auto) % Eos % (Auto) % Baso % (Auto) % Neut # (Auto) (1.4-6.5) K/uL Lymph # (Auto) (1.2-3.4) K/uL [place] # (Auto) (0.11-0.59) K/uL Eos # (Auto) (0-0.5) K/uL Baso # (Auto) (0-0.2) K/uL Immature Gran # (Auto) (0.00-0.02) K/uL PT 13.5 H (9.0-12.0) Seconds INR 1.3 H (0.9-1.1) APTT 29.1 (21.0-31.0) Seconds PTT Ratio 1.0 Sodium 136 (136-145) mmol/L Potassium 4.9 (3.5-5.1) mmol/L Chloride 101 (98-107) mmol/L Carbon Dioxide 26 (21-32) mmol/L Anion Gap 9.0 (3-11) BUN 20 H (7-18) mg/dl Creatinine 0.97 (0.6-1.2) mg/dl Est Cr Clr Drug Dosing 57.1 ml/min Est GFR ( Amer) 67.6 Est GFR (Non-Af Amer) 58.3 BUN/Creatinine Ratio 20.8 H (10-20) Glucose 345 H* (70-99) mg/dl Calcium 8.7 (8.5-10.1) mg/dl Total Bilirubin 0.4 (0.2-1) mg/dl AST 28 (15-37) U/L ALT 35 (12-78) U/L Alkaline Phosphatase 123 H (45-117) U/L Total Protein 6.7 (6.4-8.2) gm/dl Albumin 3.1 L (3.4-5.0) gm/dl Globulin 3.6 (2.5-4.0) gm/dl Albumin/Globulin Ratio 0.9 (0.9-2) Beta-Hydroxybutyric Acd 2.30 (0.2-2.81) mg/dl Blood Type O Positive Antibody Screen NEGATIVE 03/24/20 Range/Units 16:14 WBC 15.73 H (4.8-10.8) K/uL RBC 3.45 L (4.2-5.4) M/uL Hgb 9.7 L (12.0-16.0) g/dL Hct 31.5 L (37-47) % MCV 91.3 (80-100) fL MCH 28.1 (25-34) pg MCHC 30.8 L (32-36) g/dL RDW Std Deviation 55.6 H (36.4-46.3) fL RDW Coeff of Thompson 16.8 H (11.5-14.5) % Plt Count 252 (130-400) K/uL MPV 11.8 H (7.4-10.4) fL Immature Gran % (Auto) 0.2 % Neut % (Auto) 91.5 % Lymph % (Auto) 7.6 % [place] % (Auto) 0.6 % Eos % (Auto) 0.0 % Baso % (Auto) 0.1 % Neut # (Auto) 14.38 H (1.4-6.5) K/uL Lymph # (Auto) 1.20 (1.2-3.4) K/uL [place] # (Auto) 0.10 L (0.11-0.59) K/uL Eos # (Auto) 0.00 (0-0.5) K/uL Baso # (Auto) 0.02 (0-0.2) K/uL Immature Gran # (Auto) 0.03 H (0.00-0.02) K/uL PT (9.0-12.0) Seconds INR (0.9-1.1) APTT (21.0-31.0) Seconds PTT Ratio Sodium (136-145) mmol/L Potassium (3.5-5.1) mmol/L Chloride (98-107) mmol/L Carbon Dioxide (21-32) mmol/L Anion Gap (3-11) BUN (7-18) mg/dl Creatinine (0.6-1.2) mg/dl Est Cr Clr Drug Dosing ml/min Est GFR ( Amer) Est GFR (Non-Af Amer) BUN/Creatinine Ratio (10-20) Glucose (70-99) mg/dl Calcium (8.5-10.1) mg/dl Total Bilirubin (0.2-1) mg/dl AST (15-37) U/L ALT (12-78) U/L Alkaline Phosphatase (45-117) U/L Total Protein (6.4-8.2) gm/dl Albumin (3.4-5.0) gm/dl Globulin (2.5-4.0) gm/dl Albumin/Globulin Ratio (0.9-2) Beta-Hydroxybutyric Acd (0.2-2.81) mg/dl Blood Type Antibody Screen Imaging Data Radiologist's Impression: CT head/brain wo con CLINICAL HISTORY: Head trauma. Head pain. COMPARISON STUDY: 02/21/2020 TECHNIQUE: Axial CT of the brain is performed from the vertex to the skull base. IV contrast was not administered for this examination. A dose lowering technique was utilized adhering to the principles of ALARA. CT DOSE: 1006.73 mGy.cm FINDINGS: No intra or extra-axial mass lesions are visualized. There is no CT evidence of acute cortical infarction. There is no evidence of midline shift. There is no acute hemorrhage. There are patchy white matter hypodensities likely on a small vessel basis. There is no evidence of pathologic ventricular dilatation. There is a right parieto-occipital scalp contusion/hematoma. There is gas pre sent within the left premaxillary region. There is a possible left inferior orbital rim/floor fracture. A facial CT scan is recommended in follow-up. IMPRESSION: 1. No evidence of acute intracranial injury 2. Right parieto-occipital scalp contusion 3. Possible left inferior orbital rim/floor fracture. A facial CT scan is recommended in follow-up ACT 112: Negative or not required by law. Electronically signed by: José Vences M.D. 03/24/2020 3:[address] DOSE: HISTORY: Neck pain. fall eval for fx TECHNIQUE: Multiaxial CT images of the cervical spine were performed and reformatted in the sagittal and coronal plane without the use of contrast. A dose lowering technique was utilized adhering to the principles of ALARA. COMPARISON: Cervical spine CT 08/30/2013. FINDINGS: No fractures. Moderate disc space narrowing at C5-C6. There is 2 mm of anterolisthesis of C5 on C6. The bilateral C5-C6 facets are fused. This is likely due to long-standing degenerative change. Chronic changes again noted at C1-C2. Prevertebral soft tissues and the C1-C2 interval are intact. No pneumothorax. IMPRESSION: No fractures within the cervical spine. ACT 112: Negative or not required by law. Electronically signed by: Shan Hollingsworth M.D. 03/24/2020 3:16 PM Head Trauma GCS Score: 15 MDM Narrative I did evaluate the patient as noted above. The patient is presenting with a mechanical fall with a head injury. She is on Xarelto although has not taken it for 3 days as she had surgery this morning. The nurses requested I come into the room immediately due to the patient's bleeding. I did recommend a pressure dressing which was applied and controlled the bleeding. I did order a stat CT of the head and cervical spine. I did review the images myself as well as the radiology report as described above. There is no evidence of acute intracranial process or cervical fracture. There is some question of a orbital fracture in the left side due to gas but she had eye surgery this morning. She denies hitting her face when she fell. She fell straight backwards hitting the back of her head. The patient's laceration was repaired by BEN Maxwell. Please see his note for further details. I did order and review the patient's blood work as noted in the electronic medical record. Her hemoglobin is 9.7 down from 11. Her white count is elevated but this is likely from the stress of the injury as well as her recent surgery. She denies any infectious symptoms or fever. She has a sugar of 345 without anion gap or acidosis. I did discuss the test results with the patient. She is feeling much better at this time after drinking fluids. She does wish to go home. I did order 7 units of subcu regular insulin after speaking with the ED pharmacist. The patient did not wish to wait for a repeat fingerstick and will check her sugar at home. She was given return instructions as outlined below. As the patient was being discharged she developed severe lightheadedness upon sitting up and her pressure dropped to 99 systolic. She felt very pale and had a near syncopal episode. IV access was established. She was given a bolus of 500 cc of normal saline IV. Her blood pressure did improve. She will be hospitalized for further care and evaluation and repeat hemoglobin. I did discuss the case with the hospitalist and case management rn. Impression & Plan Head injury, Laceration of scalp, Anticoagulated, Acute hyperglycemia, Acute blood loss anemia, Near syncope Discharge Plan Visit Data Chief Complaint: Head Injury, Minor Stated Complaint: FALL HIT HEAD ED Provider: Curtis Olivera Discharge Problem: Head injury, Laceration of scalp, Anticoagulated, Acute hyperglycemia, Acute blood loss anemia, Near syncope Patient Disposition: Home - Self-Care Condition: Good Discharge Instructions Krames/Other Patient Handouts: High Blood Sugar (Hyperglycemia), ED Head Injury (Adult) Activity Restrictions/Additional Instructions: You have been examined and treated today on an emergency basis only. This is not a substitute for, or an effort to provide, complete comprehensive medical care. It is impossible to recognize and treat all injuries or illnesses in a single emergency department visit. It is therefore important that you follow up closely with your physician. Call as soon as possible for an appointment. Return for worsening symptoms or if you develop vomiting, numbness or weakness on one side of your body, difficulties with your speech or walking, or any other concerning symptoms. Start your Xarelto on Friday. You have received 9 rochelle on your head. These rochelle are NOT dissolvable and WILL need to be removed by a health care provider in 10 days. You can return to the Emergency Department or contact your Primary Care Provider to have these rochelle removed. Proper wound care is essential for adequate wound healing and infection preve ntion. You can shower and clean the wound with soap and water. Do scour over the wound, pat dry with a towel. Do not submerse the wound until the rochelle have been removed. You can use an antibiotic ointment with a dressing over the wound for the next 7 days. After this time you may leave the wound dry and open to the air. If crust develops over the wound you can use a Q-tip to apply a 1:1 peroxid e:water solution to clean the wound. Look for signs of infection of the wound including: increased pain, swelling, foul discharge, streaking, or increased temperature. If any of these are noticed you should return to the Emergency Department for further assessment and treatment. For pain control, you can use the following [id number] medicines (if >12 yo): - Regular strength (325mg/tab) Tylenol (acetaminophen) 1-2 tabs every 4-6 hours as needed. Do not exceed 9 tablets in a 24 hour period. Avoid taking more than 3 grams (3000 mg) of Tylenol per day. This includes any other sources of acetaminophen you may take on a regular basis. Return to the emergency department if your symptoms worsen despite treatment course outlined above. Forms Stand Alone Forms: [facility], Virtual Emergency Department, Important Visit Information Prescriptions Prescriptions: No Action cyanocobalamin (vitamin B-12) 1,000 mcg/mL kit 1,000 mcg IM MONTHLY RF: 0 multivitamin tablet 1 tab PO QAM RF: 0 glipizide 10 mg tablet 10 mg PO BID Qty: 180 RF: 3 (DME) OneTouch Ultra Blue Test Strip Strip See Dose Instructions .ROUTE .MEDSUPPLY Qty: 100 RF: 4 pantoprazole 40 mg tablet,delayed release (DR/EC) 40 mg PO DAILY Qty: 90 RF: 3 duloxetine 60 mg capsule,delayed release(DR/EC) 60 mg PO QAM Qty: 90 RF: 3 lisinopril 10 mg tablet 10 mg PO QAM Qty: 90 RF: 3 levothyroxine 25 mcg tablet 37.5 mcg PO QAM Qty: 135 RF: 3 atorvastatin 40 mg tablet 40 mg PO HS Qty: 90 RF: 3 pregabalin 150 mg capsule 150 mg PO BID Qty: 180 RF: 0 (DME) lancets [OneTouch Delica Lancets] 33 gauge misc See Dose Instructions .ROUTE .MEDSUPPLY Qty: 300 RF: 3 verapamil 120 mg tablet extended release 120 mg PO QAM Qty: 30 RF: 5 amiodarone 200 mg tablet 200 mg PO DAILY Qty: 60 RF: 2 (DME) blood-glucose meter [OneTouch UltraMini] kit See Dose Instructions .ROUTE .MEDSUPPLY Qty: 1 RF: 0 meclizine 25 mg tablet 25 mg PO Q6H PRN (Reason: dizziness) Qty: 30 RF: 0 Trulicity 0.75 mg/0.5 mL pen injector 0.75 mg subcut .COMPLEX Qty: 1 RF: 5 (DME) blood-glucose meter [OneTouch Ultra2 Meter] misc See Rx Instructions .ROUTE .MEDSUPPLY RF: 0 (DME) pen needle, diabetic [BD Ultra-Fine Dulce Pen Needle] 32 gauge x 5/32" needle See Rx Instructions .ROUTE .MEDSUPPLY RF: 0 tramadol 50 mg tablet 50 mg PO Q8H PRN (Reason: pain) Qty: 30 RF: 0 cholecalciferol (vitamin D3) [Vitamin D3] 25 mcg (1,000 unit) Capsule 1,000 unit PO QAM RF: 0 anastrozole 1 mg tablet 1 mg PO QAM RF: 0 Xarelto 20 mg tablet 20 mg PO DAILY RF: 0 dextromethorphan polistirex [Delsym 12 hour] 30 mg/5 mL Suspension,Extended Rel 12 Hr 10 ml PO Q12H PRN (Reason: Cough) RF: 0 acetaminophen [Tylenol Extra Strength] 500 mg Tablet 500 mg PO Q6H PRN (Reason: Pain) RF: 0 Lantus Solostar U-100 Insulin 100 unit/mL (3 mL) insulin pen 31 unit SQ HS RF: 0 Referrals Referrals: Jarod Lovett MD [Primary Care Provider] - Discharge Problem: Head injury Qualifiers: Encounter type: initial encounter Qualified Code(s): S09.90XA - Unspecified injury of head, initial encounter Laceration of scalp Qualifiers: Encounter type: initial encounter Qualified Code(s): S01.01XA - Laceration without foreign body of scalp, initial encounter
--- NOTE | 2020-03-24 15:45 | Emergency Department Note ---
ED Visit Note Patient was seen by Dr. Olivera. Please refer to his note regarding remainder of patient visit. I was asked to perform primary wound closure of the patient's occipital laceration. There is a large 6 cm laceration to the occipital region of the patient's scalp. This is vertical in nature. The superior portion of the wound is somewhat stellate and irregular. The wound does gape at rest of about 2 cm. There is active bleeding noted. No foreign bodies. This is at a slight angulation with the right wound edge being thinner than the left. Risks and benefits of performing primary wound closure versus no repair were discussed with the patient who verbalizes understanding. Verbal consent was obtained prior to performing the procedure. 6 cc of 1% lidocaine with epinephrine was used to anesthetize the laceration. The wound was cleansed and prepped in the typical sterile fashion utilizing normal saline and Betadine. The wound was sterilely draped. Once proper anesthetization was established, the wound was further examined and demonstrated an actively bleeding wound and therefore for, 4-0 Vicryl sutures were placed in the deeper layers to help better approximate the wound edges and decrease bleeding. The wound was copiously irrigated with normal saline and Betadine. Several liters of normal saline was utilized to irrigate the wound noting the amount of matted hair/blood overlying the wound. The wound was closed using 9 rochelle with the wound edges being well approximated. Patient tolerated the procedure well. No complications were met. The wound was cleansed and dressed with a Bacitracin dressing. Please refer to further documentation regarding her stay. No other lacerations were identified on examination. .
[2020-03-24 16:31] LABS: Basophils # (auto) 0.02 K/uL (0-0.2); Basophils % (auto) 0.1 %; Hematocrit (blood only) 31.5 % (37-47); Hemoglobin 9.7 g/dL (12.0-16.0); Immature Granulocytes # (auto) 0.03 K/uL (0.00-0.02); Immature Granulocytes % (auto) 0.2 %; Lymphocytes % (auto) 7.6 %; Mean Corpuscular Hemoglobin 28.1 pg (25-34); Mean Corpuscular Hgb Conc 30.8 g/dL (32-36); Mean Corpuscular Volume 91.3 fL (80-100); Mean Platelet Volume 11.8 fL (7.4-10.4); Monocytes % (auto) 0.6 %; Neutrophils # (auto) 14.38 K/uL (1.4-6.5); Neutrophils % (auto) 91.5 %; Platelet Count 252 K/uL (130-400); RDW Coefficient of Variation 16.8 % (11.5-14.5); RDW Standard Deviation 55.6 fL (36.4-46.3); Red Blood Count 3.45 M/uL (4.2-5.4); White Blood Count 15.73 K/uL (4.8-10.8)
[2020-03-24 16:36] LABS: INR 1.3 (0.9-1.1); Partial Thromboplastin Time 29.1 Seconds (21.0-31.0); Prothrombin Time 13.5 Seconds (9.0-12.0)
[2020-03-24 16:46] LABS: Albumin Globulin Ratio 0.9 (0.9-2); Albumin Level 3.1 gm/dl (3.4-5.0); BUN Creatinine Ratio 20.8 (10-20); Bilirubin,Total 0.4 mg/dl (0.2-1); Calcium 8.7 mg/dl (8.5-10.1); Creatinine Clr Calc Pharmacy 57.1 ml/min; Est GFR (African American) 67.6; Est GFR (Non-African American) 58.3; Globulin 3.6 gm/dl (2.5-4.0); Potassium 4.9 mmol/L (3.5-5.1); Total Protein 6.7 gm/dl (6.4-8.2)
[2020-03-24 16:56] LABS: Beta-Hydroxybutyrate 2.3 mg/dl (0.2-2.81)
[2020-03-24] MEDS ORDERED: NovoLIN-R INSULIN PER UNIT CHARGE SC STA (16:58)
[2020-03-24] MEDS ORDERED: SODIUM CHLORIDE 0.9% 1000ML 500 ML IV ONE (17:18)
--- NOTE | 2020-03-24 17:37 | XRay Report ---
XR chest 1V portable CLINICAL HISTORY: eval for pna COMPARISON STUDY: No previous studies for comparison. FINDINGS: Several healing right-sided rib fractures are noted. There is no pneumothorax or pleural ef fusion. Mild cardiomegaly is unchanged. There is no evidence for pulmonary edema. Dual-lead left subc lavian pacemaker and left arthroplasty are incidentally noted. There is possible mild left basilar op acity. IMPRESSION: 1. Possible mild left basilar opacity. This could reflect pneumonia. 2. Several healing right rib fractures. No pneumothorax. ACT 112: Negative or not required by law. Electronically signed by: Eladio Keane M.D. 03/24/2020 5:36 PM
--- NOTE | 2020-03-24 20:10 | History & Physical Report ---
Date of Service March 24, 2020 Assessment & Plan (1) Near syncope: Dizziness when she bent over. No loss of consciousness or other symptoms of more concerning character. BP as low as 100/75 in the ED. Her usual BPs seem to run in the 140/80 range. Possibly due to being NPO for her surgery or lingering effects of anesthesia. - Will hold home BP meds and monitor orthostatics - Gentle IV fluids (2) Laceration of scalp: Sutured and stapled in the ED. - Check hemoglobin in the morning - Outpatient follow up (3) Atrial fibrillation: - Holding Xarelto until Friday for surgery. - Holding verapamil (4) Diabetes mellitus type 2, uncontrolled: - Dropped home long-acting insulin from 31 units HS to 20 units to avoid hypoglycemia. - Sliding scale insulin (5) Hypothyroidism: TSH was normal range in 12/2019. - Continue home levothyroxine 37.5 mcg daily (6) DVT prophylaxis: SCDs - Holding heparin for bleeding on head; will restart Xarelto in 2 days. History of Present Illness Primary Care Provider: Quinn Lovett MD 70yo W who had surgery today on her left eye for a "new tear duct" she reports. After the surgery at home, she notes that she bent over and got dizzy. She then stood up and struck the back of her head. She reports that she did not have any chest pain, no shortness of breath, no palpitations, or other sensation other than a presyncopal sensation. She was going to get sent home from the ER; however, when she stood up, she once again got quite dizzy and had to be assisted to bed. Allergies Allergy/AdvReac Type Severity Reaction Status Date / Time meperidine [From Demerol] AdvReac Mild Not Verified 03/24/20 17:52 tolerated. venlafaxine [From Effexor] AdvReac Mild Not Verified 03/24/20 17:52 tolerated metformin AdvReac Unknown INSOMNIA Verified 03/24/20 17:52 amoxicillin [From Augmentin] AdvReac Unknown Verified 03/24/20 17:52 clavulanic acid AdvReac Unknown Verified 03/24/20 17:52 [From Augmentin] Home Medications Home Medications Medication Instructions Recorded Confirmed Type cyanocobalamin (vitamin B-12) 1,000 mcg IM MONTHLY ea 02/04/18 03/24/20 History 1,000 mcg/mL injection kit multivitamin 1 tab PO QAM 02/04/18 03/24/20 History blood-glucose meter #1 ea 12/24/18 03/22/20 History glipizide 10 mg tablet 10 mg PO BID #180 tab 04/20/19 03/24/20 Rx blood-glucose meter ea 05/04/19 03/22/20 History pen needle, diabetic 32 gauge x ea 05/04/19 03/24/20 History 5/32" Xarelto 20 mg PO DAILY 07/29/19 03/24/20 History acetaminophen [Tylenol Extra 500 mg PO Q6H PRN 07/29/19 03/24/20 History Strength] anastrozole 1 mg PO QAM 07/29/19 03/24/20 History cholecalciferol (vitamin D3) 1,000 unit PO QAM 07/29/19 03/24/20 History [Vitamin D3] dextromethorphan polistirex 10 ml PO Q12H PRN 07/29/19 03/24/20 History [Delsym 12 hour] blood sugar diagnostic #100 ea 09/06/19 03/22/20 Rx pantoprazole 40 mg tablet,delayed 40 mg PO DAILY #90 tab 09/24/19 03/24/20 Rx release duloxetine 60 mg capsule,delayed 60 mg PO QAM #90 cap 10/12/19 03/24/20 Rx release lisinopril 10 mg tablet 10 mg PO QAM #90 tab 10/14/19 03/24/20 Rx levothyroxine 25 mcg tablet 37.5 mcg PO QAM #135 tab 11/02/19 03/24/20 Rx atorvastatin 40 mg tablet 40 mg PO HS #90 tab 11/29/19 03/24/20 Rx dulaglutide 0.75 mg/0.5 mL 0.75 mg SUBCUT .COMPLEX #1 ml 01/12/20 03/24/20 Rx subcutaneous pen injector meclizine 25 mg tablet 25 mg PO Q6H PRN #30 tab 01/12/20 03/24/20 Rx pregabalin 150 mg capsule 150 mg PO BID #180 cap 01/14/20 03/24/20 Rx amiodarone 200 mg tablet 200 mg PO DAILY #60 tab 01/31/20 03/24/20 Rx lancets 33 gauge #300 ea 02/08/20 03/22/20 Rx verapamil 120 mg tablet,extended 120 mg PO QAM #30 tab 03/16/20 03/24/20 Rx release tramadol 50 mg tablet 50 mg PO Q8H PRN #30 tab 03/22/20 03/24/20 Rx insulin glargine [Lantus Solostar 31 unit SQ HS 03/24/20 03/24/20 History U-100 Insulin] Past Med/Surg History Medical History (Updated 03/24/20 @ 20:09 by Raffaele Christian MD) Abdominal wound dehiscence (06/15/14) Arthritis Atrial fibrillation Atrial flutter Breast cancer (12/18/15) "Abnormal left breast mammogram Status post core needle biopsy 12/18/2015 revealing infiltrating ductal carcinoma Estrogen receptor positive, progesterone receptor positive, HER-2/po negative Status post left needle localization lumpectomy and sentinel lymph node biopsy 01/04/2016 Stage pT1c pN0M0 Status post completion of radiation therapy 02/13/2016 received 3850 cGy utilizing accelerated partial breast irradiation." On 01/17/16 14:10 Deidre Orta wrote "Abnormal left breast mammogram Status post core needle biopsy 12/18/2015 revealing infiltrating ductal carcinoma Estrogen receptor positive, progesterone receptor positive, HER-2/po negative Status post left needle localization lumpectomy and sentinel lymph node biopsy 01/04/2016 Stage pT1c pN0M0" Cervical spine disease Chronic anemia Chronic pain Constipation Dehydration Depression Diabetes mellitus type 2, uncontrolled Gait disturbance Gastroesophageal reflux disease Hip bursitis, left Hypercholesterolemia Hypocalcemia Hypothyroidism Incisional hernia Infiltrating ductal carcinoma of left breast Influenza A (07/2019) Internal hemorrhoids Leg weakness, bilateral Lipodystrophy Lumbar radiculopathy Obstructive sleep apnea Peripheral neuropathy Positive ESTEPHANIA (antinuclear antibody) Recurrent incisional hernia with incarceration (05/16/14) Vitamin B12 deficiency Surgical History H/O bilateral hip replacements History of section History of total knee arthroplasty Status post appendectomy Status post arthroscopy of left shoulder Status post gastric bypass for obesity Status post laparoscopic cholecystectomy Status post lumbar spine surgery for decompression of spinal cord Status post panniculectomy Status post partial mastectomy of left breast Status post repair of ventral hernia Status post total abdominal hysterectomy and bilateral salpingo-oophorectomy Status post total hip replacement, bilateral Family History Unknown Emphysema lung Breast cancer Social History Smoking Status: Former smoker Tobacco Type: Cigarettes packs per day: 2; Number of Years Since Quit: 11; Second Hand Exposure: No; Hx Alcohol Use: No Hx Substance Use: No Preferred Language: Slovenian Communication Ability: Effective Hearing Ability: Normal Coverer Required: No Beliefs That Will Affect Care: None marital status: Current Living Situation: Spouse current occupational status: retired Feels Safe at Home: Yes Childhood Exposure to Second-Hand Smoke: Yes caffeine: Yes Dental Care, Regularly: No Physical Activity Frequency: 1-2 Times per Week Seatbelt Use: always Sunscreen Use: No Assistive Devices: Glasses and Walker Review of Systems Review of Systems: All systems reviewed & are unremarkable except as noted in HPI & below Results & Data Results & Data ([place]) Vital Signs (Past 12 Hours) Vital Signs Pulse Pulse Resp BP BP Pulse Ox 03/24/20 18:46 71 16 115/68 100 03/24/20 17:48 70 18 98/75 L 95 03/24/20 16:45 74 16 119/69 100 03/24/20 14:42 122 H 20 137/65 PG Care Time/CCT Total # of Minutes Spent Total Time Spent with Patient: Total time spent is greater than 50% in coordination of care (as documented) at patient's floor/unit and/or counseling patient: Coding Level of Care Code 67706 OBS Care - Level 3 Diagnoses Near syncope R55 Laceration of scalp S01.01XA Encounter type: initial encounter Atrial fibrillation I48.91 Atrial fibrillation type: unspecified Diabetes mellitus type 2, uncontrolled E11.65 Glycemic state: with hyperglycemia Hypothyroidism E03.9 Hypothyroidism type: unspecified DVT prophylaxis Z29.9 (1) Laceration of scalp Encounter type: initial encounter Qualified Code(s): S01.01XA - Laceration without foreign body of scalp, initial encounter (2) Atrial fibrillation Atrial fibrillation type: unspecified Qualified Code(s): I48.91 - Unspecified atrial fibrillation (3) Diabetes mellitus type 2, uncontrolled Glycemic state: with hyperglycemia Qualified Code(s): E11.65 - Type 2 diabetes mellitus with hyperglycemia (4) Hypothyroidism Hypothyroidism type: unspecified Qualified Code(s): E03.9 - Hypothyroidism, unspecified
[2020-03-24] MEDS ORDERED: GLUCOSE 40% GEL 15 GM TUBE PO PRN (20:41)
[2020-03-24] MEDS ORDERED: DEXTROSE 50% 50 ML SYRINGE IV PRN (20:41)
[2020-03-24] MEDS ORDERED: GLUCAGON FOR INJ 1 MG VIAL SQ PRN (20:41)
[2020-03-24] MEDS ORDERED: GLUCOSE 10 TABS/TUBE PO PRN (20:41)
[2020-03-24] MEDS ORDERED: CARBOHYDRATES FOR HYPOGLYCEMIA PO PRN (20:41)
[2020-03-24] MEDS ORDERED: ONDANSETRON INJ 2 MG/ML 2 ML VIAL IV PRN (20:41)
[2020-03-24] MEDS ORDERED: INSULIN GLARGINE SOLOSTAR 100 UNITS/ML 3 ML PEN SQ SCH (21:00)
[2020-03-24] MEDS: ACETAMINOPHEN 500 MG TAB PO PRN (21:37)
[2020-03-24] MEDS: ATORVASTATIN 40 MG TAB PO SCH (21:39)
[2020-03-24] MEDS: SODIUM CHLORIDE 0.9% 1000ML 1,000 ML IV SCH (21:39)
[2020-03-24] MEDS: INSULIN ASPART 100 UNITS/ML 3 ML PEN SC SCH (22:08)
[2020-03-25] MEDS ORDERED: KETOROLAC TROMETHAMINE 15 MG/ML VIAL IV ONE (02:08)
[2020-03-25 06:49] LABS: Hematocrit (blood only) 22.4 % (37-47); Hemoglobin 7.1 g/dL (12.0-16.0); Mean Corpuscular Hemoglobin 28.2 pg (25-34); Mean Corpuscular Hgb Conc 31.7 g/dL (32-36); Mean Corpuscular Volume 88.9 fL (80-100); Mean Platelet Volume 11.7 fL (7.4-10.4); Platelet Count 183 K/uL (130-400); RDW Coefficient of Variation 16.8 % (11.5-14.5); RDW Standard Deviation 54.7 fL (36.4-46.3); Red Blood Count 2.52 M/uL (4.2-5.4); White Blood Count 9.29 K/uL (4.8-10.8)
[2020-03-25 07:18] LABS: BUN Creatinine Ratio 31.1 (10-20); Creatinine Clr Calc Pharmacy 60.7 ml/min; Est GFR (Non-African American) 63.9; Magnesium 2.2 mg/dl (1.8-2.4)
[2020-03-25 07:19] LABS: Phosphorus 3.5 mg/dl (2.5-4.9)
[2020-03-25] MEDS: INSULIN ASPART 100 UNITS/ML 3 ML PEN SC SCH ×4 (08:41→21:05)
[2020-03-25] MEDS: ANASTROZOLE 1 MG TAB PO SCH (08:43)
[2020-03-25] MEDS: AMIODARONE 200 MG TAB PO SCH (08:43)
[2020-03-25] MEDS: DULoxetine HCL 60 MG CAP PO SCH (08:43)
[2020-03-25] MEDS: PANTOprazole 40 MG TAB PO SCH (08:44)
[2020-03-25] MEDS: LEVOTHYROXINE SODIUM 75 MCG TABLET PO SCH (08:44)
[2020-03-25 11:32] LABS: Hematocrit (blood only) 23.3 % (37-47); Hemoglobin 7.5 g/dL (12.0-16.0); Mean Corpuscular Hemoglobin 28.1 pg (25-34); Mean Corpuscular Hgb Conc 32.2 g/dL (32-36); Mean Corpuscular Volume 87.3 fL (80-100); Mean Platelet Volume 12.1 fL (7.4-10.4); Platelet Count 210 K/uL (130-400); RDW Coefficient of Variation 16.9 % (11.5-14.5); RDW Standard Deviation 53.3 fL (36.4-46.3); Red Blood Count 2.67 M/uL (4.2-5.4); White Blood Count 13.44 K/uL (4.8-10.8)
--- NOTE | 2020-03-25 11:36 | Hospitalist Progress Note ---
Date of Service March 25, 2020 Assessment & Plan (1) Acute blood loss anemia: Symptomatic acute blood loss anemia secondary to scalp laceration. Hemoglobin dropped to 7.1 this morning and on repeat is about the same at 7.5. Baseline hemoglobin is 11. She continues to have lightheadedness and near syncope with trying to get up. -Transfuse 1 unit PRBCs Follow CBC Laceration has been repaired and there is no further bleeding Continue to hold Xarelto (2) Near syncope: Dizziness when she bent over and then hit her head when she stood back up causing laceration with acute blood loss anemia as above. No loss of consciousness or other symptoms of more concerning character. Blood pressure in the ER was 98/75 and was tachycardic in the 120s initially. Her usual BPs seem to run in the 140/80 range. -Continue to hold home antihypertensives to include verapamil, lisinopril DC IV fluids Giving PRBCs as above (3) Laceration of scalp: Sutured and stapled in the ED. Wound looks good today, no evidence of infection Continue wound care with gentle cleansing Will need rochelle removed around 04/02 Add oxycodone as needed for pain as she is having headache (4) Atrial fibrillation: Is in a sinus/paced rhythm here -Continue holding Xarelto until Friday for recent eye surgery. -Continue holding verapamil Continue telemetry monitoring (5) Diabetes mellitus type 2, uncontrolled: - Dropped home long-acting insulin from 31 units HS to 20 units to avoid hypoglycemia on admission but now is having significant hyperglycemia. Holding home glipizide Tighten down sliding scale insulin and add Lantus 10 units x 1 now Increase Lantus for tonight to 25 units Accu-Cheks, ADA diet (6) Hypothyroidism: TSH was normal range in 12/2019. - Continue home levothyroxine 37.5 mcg daily (7) Cardiac pacemaker: Placed for tachybradycardia syndrome (8) Aortic valve stenosis: Noted to be mild on echocardiogram from 12/2019 Follow with cardiology (9) Obstructive sleep apnea: Does not have CPAP, has declined repeat sleep study as per PCP notes (10) Breast cancer: Continue anastrozole (11) Gastroesophageal reflux disease: No acute issues Continue PPI (12) Hypercholesterolemia: Continue statin (13) Peripheral neuropathy: Continue Cymbalta and restart home Lyrica which was on hold (14) HBP (high blood pressure): Blood pressures were low on arrival from acute blood loss anemia Continue holding home verapamil and lisinopril (15) DVT prophylaxis: SCDs - Holding anticoagulation due to eye surgery as above, will restart Xarelto potentially on Friday if hemoglobin stable Disposition-continued stay on PCU Admission and Anticipated Discharge Date Admission Date: March 24, 2020 Subjective Patient reports feeling very lightheaded like she is going to pass out today every time she gets up. She has a bad headache and some posterior neck pain from her fall, is requesting something stronger than Tylenol. Has some pain and bruising in the left periorbital region as well from her surgery. Denies chest pain or shortness of breath, no nausea or vomiting. Her appetite was lower than usual but improved with lunch. She is agreeable to a blood transfusion for symptomatic anemia. Telemetry with paced rhythm and rates in the 60s to 70s Review of Systems Review of Systems: All systems reviewed & are unremarkable except as noted in HPI & below Physical Exam Constitutional: WD/WN, vitals as above + obese Eyes: + eyelid abnormality (Left periorbital ecchymosis and edema), + anicteric sclerae and EOM intact bilaterally ENMT: external ear and nose normal, oropharynx normal (Except some ecchymosis in the right posterior oropharynx) Neck: trachea midline, no thyromegaly Respiratory: normal respiratory effort, lungs clear to auscultation Cardiovascular: RRR, no murmur, no edema Chest (Breasts): Chest: normal inspection of chest Gastrointestinal (Abdomen): normal bowel sounds, soft, nontender, no hepatosplenomegaly Musculoskeletal: Extremities: extremities normal to inspection; no cyanosis and no clubbing Skin: + wound (Right posterior scalp with rochelle in place over wound, no drainage) and + ecchymosis (Left periorbital region) Neurologic: moves all extremities and awake; no focal motor deficits Psychiatric: A+Ox3, euthymic affect Lymphatic: no lymphedema Results & Data Results & Data ([facility]) Vital Signs (Past 12 Hours) Vital Signs Temp Pulse Resp BP Pulse Ox 03/25/20 08:05 37.0 C 63 16 122/74 97 03/25/20 02:51 36.7 C 66 18 113/74 98 03/25/20 00:09 36.7 C 76 19 118/77 99 Laboratory Results 03/25/20 03/25/20 03/25/20 Range/Units 11:12 11:12 07:29 WBC 13.44 H (4.8-10.8) K/uL RBC 2.67 L (4.2-5.4) M/uL Hgb 7.5 L (12.0-16.0) g/dL Hct 23.3 L (37-47) % MCV 87.3 (80-100) fL MCH 28.1 (25-34) pg MCHC 32.2 (32-36) g/dL RDW Std Deviation 53.3 H (36.4-46.3) fL RDW Coeff of Thompson 16.9 H (11.5-14.5) % Plt Count 210 (130-400) K/uL MPV 12.1 H (7.4-10.4) fL Immature Gran % (Auto) % Neut % (Auto) % Lymph % (Auto) % [place] % (Auto) % Eos % (Auto) % Baso % (Auto) % Neut # (Auto) (1.4-6.5) K/uL Lymph # (Auto) (1.2-3.4) K/uL [place] # (Auto) (0.11-0.59) K/uL Eos # (Auto) (0-0.5) K/uL Baso # (Auto) (0-0.2) K/uL Immature Gran # (Auto) (0.00-0.02) K/uL PT (9.0-12.0) Seconds INR (0.9-1.1) APTT (21.0-31.0) Seconds PTT Ratio Sodium (136-145) mmol/L Potassium (3.5-5.1) mmol/L Chloride (98-107) mmol/L Carbon Dioxide (21-32) mmol/L Anion Gap (3-11) BUN (7-18) mg/dl Creatinine (0.6-1.2) mg/dl Est Cr Clr Drug Dosing ml/min Est GFR ( Amer) Est GFR (Non-Af Amer) BUN/Creatinine Ratio (10-20) Glucose (70-99) mg/dl POC Glucose 274 H (70-99) mg/dl Calcium (8.5-10.1) mg/dl Phosphorus (2.5-4.9) mg/dl Magnesium (1.8-2.4) mg/dl Total Bilirubin (0.2-1) mg/dl AST (15-37) U/L ALT (12-78) U/L Alkaline Phosphatase (45-117) U/L Total Protein (6.4-8.2) gm/dl Albumin (3.4-5.0) gm/dl Globulin (2.5-4.0) gm/dl Albumin/Globulin Ratio (0.9-2) Beta-Hydroxybutyric Acd (0.2-2.81) mg/dl Blood Type Blood Type Recheck Pending Antibody Screen Crossmatch 03/25/20 03/25/20 03/24/20 Range/Units 06:00 06:00 21:00 WBC 9.29 (4.8-10.8) K/uL RBC 2.52 L (4.2-5.4) M/uL Hgb 7.1 L (12.0-16.0) g/dL Hct 22.4 L (37-47) % MCV 88.9 (80-100) fL MCH 28.2 (25-34) pg MCHC 31.7 L (32-36) g/dL RDW Std Deviation 54.7 H (36.4-46.3) fL RDW Coeff of Thompson 16.8 H (11.5-14.5) % Plt Count 183 (130-400) K/uL MPV 11.7 H (7.4-10.4) fL Immature Gran % (Auto) % Neut % (Auto) % Lymph % (Auto) % [place] % (Auto) % Eos % (Auto) % Baso % (Auto) % Neut # (Auto) (1.4-6.5) K/uL Lymph # (Auto) (1.2-3.4) K/uL [place] # (Auto) (0.11-0.59) K/uL Eos # (Auto) (0-0.5) K/uL Baso # (Auto) (0-0.2) K/uL Immature Gran # (Auto) (0.00-0.02) K/uL PT (9.0-12.0) Seconds INR (0.9-1.1) APTT (21.0-31.0) Seconds PTT Ratio Sodium 135 L (136-145) mmol/L Potassium 5.0 (3.5-5.1) mmol/L Chloride 104 (98-107) mmol/L Carbon Dioxide 28 (21-32) mmol/L Anion Gap 3.0 (3-11) BUN 28 H (7-18) mg/dl Creatinine 0.90 (0.6-1.2) mg/dl Est Cr Clr Drug Dosing 60.7 ml/min Est GFR ( Amer) 74.0 Est GFR (Non-Af Amer) 63.9 BUN/Creatinine Ratio 31.1 H (10-20) Glucose 252 H (70-99) mg/dl POC Glucose 289 H (70-99) mg/dl Calcium 8.0 L (8.5-10.1) mg/dl Phosphorus 3.5 (2.5-4.9) mg/dl Magnesium 2.2 (1.8-2.4) mg/dl Total Bilirubin (0.2-1) mg/dl AST (15-37) U/L ALT (12-78) U/L Alkaline Phosphatase (45-117) U/L Total Protein (6.4-8.2) gm/dl Albumin (3.4-5.0) gm/dl Globulin (2.5-4.0) gm/dl Albumin/Globulin Ratio (0.9-2) Beta-Hydroxybutyric Acd (0.2-2.81) mg/dl Blood Type Blood Type Recheck Antibody Screen Crossmatch 03/24/20 03/24/20 03/24/20 Range/Units 16:14 16:03 16:03 WBC 15.73 H (4.8-10.8) K/uL RBC 3.45 L (4.2-5.4) M/uL Hgb 9.7 L (12.0-16.0) g/dL Hct 31.5 L (37-47) % MCV 91.3 (80-100) fL MCH 28.1 (25-34) pg MCHC 30.8 L (32-36) g/dL RDW Std Deviation 55.6 H (36.4-46.3) fL RDW Coeff of Thompson 16.8 H (11.5-14.5) % Plt Count 252 (130-400) K/uL MPV 11.8 H (7.4-10.4) fL Immature Gran % (Auto) 0.2 % Neut % (Auto) 91.5 % Lymph % (Auto) 7.6 % [place] % (Auto) 0.6 % Eos % (Auto) 0.0 % Baso % (Auto) 0.1 % Neut # (Auto) 14.38 H (1.4-6.5) K/uL Lymph # (Auto) 1.20 (1.2-3.4) K/uL [place] # (Auto) 0.10 L (0.11-0.59) K/uL Eos # (Auto) 0.00 (0-0.5) K/uL Baso # (Auto) 0.02 (0-0.2) K/uL Immature Gran # (Auto) 0.03 H (0.00-0.02) K/uL PT 13.5 H (9.0-12.0) Seconds INR 1.3 H (0.9-1.1) APTT 29.1 (21.0-31.0) Seconds PTT Ratio 1.0 Sodium 136 (136-145) mmol/L Potassium 4.9 (3.5-5.1) mmol/L Chloride 101 (98-107) mmol/L Carbon Dioxide 26 (21-32) mmol/L Anion Gap 9.0 (3-11) BUN 20 H (7-18) mg/dl Creatinine 0.97 (0.6-1.2) mg/dl Est Cr Clr Drug Dosing 57.1 ml/min Est GFR ( Amer) 67.6 Est GFR (Non-Af Amer) 58.3 BUN/Creatinine Ratio 20.8 H (10-20) Glucose 345 H* (70-99) mg/dl POC Glucose (70-99) mg/dl Calcium 8.7 (8.5-10.1) mg/dl Phosphorus (2.5-4.9) mg/dl Magnesium (1.8-2.4) mg/dl Total Bilirubin 0.4 (0.2-1) mg/dl AST 28 (15-37) U/L ALT 35 (12-78) U/L Alkaline Phosphatase 123 H (45-117) U/L Total Protein 6.7 (6.4-8.2) gm/dl Albumin 3.1 L (3.4-5.0) gm/dl Globulin 3.6 (2.5-4.0) gm/dl Albumin/Globulin Ratio 0.9 (0.9-2) Beta-Hydroxybutyric Acd 2.30 (0.2-2.81) mg/dl Blood Type Blood Type Recheck Antibody Screen Crossmatch 03/24/20 Range/Units 16:03 WBC (4.8-10.8) K/uL RBC (4.2-5.4) M/uL Hgb (12.0-16.0) g/dL Hct (37-47) % MCV (80-100) fL MCH (25-34) pg MCHC (32-36) g/dL RDW Std Deviation (36.4-46.3) fL RDW Coeff of Thompson (11.5-14.5) % Plt Count (130-400) K/uL MPV (7.4-10.4) fL Immature Gran % (Auto) % Neut % (Auto) % Lymph % (Auto) % [place] % (Auto) % Eos % (Auto) % Baso % (Auto) % Neut # (Auto) (1.4-6.5) K/uL Lymph # (Auto) (1.2-3.4) K/uL [place] # (Auto) (0.11-0.59) K/uL Eos # (Auto) (0-0.5) K/uL Baso # (Auto) (0-0.2) K/uL Immature Gran # (Auto) (0.00-0.02) K/uL PT (9.0-12.0) Seconds INR (0.9-1.1) APTT (21.0-31.0) Seconds PTT Ratio Sodium (136-145) mmol/L Potassium (3.5-5.1) mmol/L Chloride (98-107) mmol/L Carbon Dioxide (21-32) mmol/L Anion Gap (3-11) BUN (7-18) mg/dl Creatinine (0.6-1.2) mg/dl Est Cr Clr Drug Dosing ml/min Est GFR ( Amer) Est GFR (Non-Af Amer) BUN/Creatinine Ratio (10-20) Glucose (70-99) mg/dl POC Glucose (70-99) mg/dl Calcium (8.5-10.1) mg/dl Phosphorus (2.5-4.9) mg/dl Magnesium (1.8-2.4) mg/dl Total Bilirubin (0.2-1) mg/dl AST (15-37) U/L ALT (12-78) U/L Alkaline Phosphatase (45-117) U/L Total Protein (6.4-8.2) gm/dl Albumin (3.4-5.0) gm/dl Globulin (2.5-4.0) gm/dl Albumin/Globulin Ratio (0.9-2) Beta-Hydroxybutyric Acd (0.2-2.81) mg/dl Blood Type O Positive Blood Type Recheck Antibody Screen NEGATIVE Crossmatch See Detail PG Care Time/CCT Total # of Minutes Spent Total Time Spent with Patient: Total time spent is greater than 50% in coordination of care (as documented) at patient's floor/unit and/or counseling patient: Coding Level of Care Code 27476 Subseq Hosp Care Lvl 3 Diagnoses Acute blood loss anemia D62 Near syncope R55 Laceration of scalp S01.01XA Encounter type: initial encounter Atrial fibrillation I48.91 Atrial fibrillation type: unspecified Diabetes mellitus type 2, uncontrolled E11.65 Glycemic state: with hyperglycemia Hypothyroidism E03.9 Hypothyroidism type: unspecified Cardiac pacemaker Z95.0 Aortic valve stenosis I35.0 Obstructive sleep apnea G47.33 Breast cancer C50.919 Breast location: unspecified site of breast Estrogen receptor status: unspecified Patient sex: female Laterality: unspecified laterality Gastroesophageal reflux disease K21.9 Esophagitis presence: esophagitis presence not specified Hypercholesterolemia E78.00 Peripheral neuropathy G62.9 HBP (high blood pressure) I10 DVT prophylaxis Z29.9 (1) Laceration of scalp Encounter type: initial encounter Qualified Code(s): S01.01XA - Laceration without foreign body of scalp, initial encounter (2) Atrial fibrillation Atrial fibrillation type: unspecified Qualified Code(s): I48.91 - Unspecified atrial fibrillation (3) Diabetes mellitus type 2, uncontrolled Glycemic state: with hyperglycemia Qualified Code(s): E11.65 - Type 2 diabetes mellitus with hyperglycemia (4) Hypothyroidism Hypothyroidism type: unspecified Qualified Code(s): E03.9 - Hypothyroidism, unspecified (5) Breast cancer Breast location: unspecified site of breast Estrogen receptor status: unspecified Patient sex: female Laterality: unspecified laterality Qualified Code(s): C50.919 - Malignant neoplasm of unspecified site of unspecified female breast (6) Gastroesophageal reflux disease Esophagitis presence: esophagitis presence not specified Qualified Code(s): K21.9 - Gastro-esophageal reflux disease without esophagitis
[2020-03-25] MEDS ORDERED: INSULIN GLARGINE SOLOSTAR 100 UNITS/ML 3 ML PEN SC ONE (11:38)
[2020-03-25] MEDS: SODIUM CHLORIDE 0.9% 1000ML 1,000 ML IV SCH (11:38)
[2020-03-25] MEDS ORDERED: SODIUM CHLORIDE 0.9% 250 ML IV PRN (11:39)
[2020-03-25] MEDS: oxyCODONE/ACETAMINOPHEN 5mg/325mg TAB PO PRN ×2 (13:49→20:59)
[2020-03-25] MEDS: ATORVASTATIN 40 MG TAB PO SCH (20:59)
[2020-03-25] MEDS: PREGABALIN 150 MG CAP PO SCH (20:59)
[2020-03-25] MEDS ORDERED: INSULIN GLARGINE SOLOSTAR 100 UNITS/ML 3 ML PEN SQ SCH (21:00)
[2020-03-26] MEDS: oxyCODONE/ACETAMINOPHEN 5mg/325mg TAB PO PRN ×4 (03:36→20:44)
[2020-03-26 08:24] LABS: Basophils # (auto) 0.01 K/uL (0-0.2); Basophils % (auto) 0.1 %; Eosinophils # (auto) 0.02 K/uL (0-0.5); Eosinophils % (auto) 0.2 %; Hematocrit (blood only) 24.7 % (37-47); Hemoglobin 7.9 g/dL (12.0-16.0); Immature Granulocytes # (auto) 0.03 K/uL (0.00-0.02); Immature Granulocytes % (auto) 0.3 %; Lymphocytes # (auto) 1.85 K/uL (1.2-3.4); Lymphocytes % (auto) 18.2 %; Mean Corpuscular Hemoglobin 28.4 pg (25-34); Mean Corpuscular Volume 88.8 fL (80-100); Monocytes # (auto) 1.12 K/uL (0.11-0.59); Neutrophils # (auto) 7.15 K/uL (1.4-6.5); Neutrophils % (auto) 70.2 %; Platelet Count 160 K/uL (130-400); RDW Coefficient of Variation 16.8 % (11.5-14.5); Red Blood Count 2.78 M/uL (4.2-5.4); White Blood Count 10.18 K/uL (4.8-10.8)
[2020-03-26 08:46] LABS: RBC Morphology Unremarkable
[2020-03-26 08:55] LABS: BUN Creatinine Ratio 26.9 (10-20); Calcium 8.5 mg/dl (8.5-10.1); Creatinine Clr Calc Pharmacy 65.2 ml/min; Est GFR (African American) 80.5; Est GFR (Non-African American) 69.4; Potassium 4.2 mmol/L (3.5-5.1)
[2020-03-26] MEDS: INSULIN ASPART 100 UNITS/ML 3 ML PEN SC SCH ×4 (09:17→20:47)
[2020-03-26] MEDS: AMIODARONE 200 MG TAB PO SCH (09:18)
[2020-03-26] MEDS: DULoxetine HCL 60 MG CAP PO SCH (09:19)
[2020-03-26] MEDS: ANASTROZOLE 1 MG TAB PO SCH (09:19)
[2020-03-26] MEDS: PANTOprazole 40 MG TAB PO SCH (09:19)
[2020-03-26] MEDS: LEVOTHYROXINE SODIUM 75 MCG TABLET PO SCH (09:19)
[2020-03-26] MEDS: PREGABALIN 150 MG CAP PO SCH ×2 (09:23→20:44)
[2020-03-26] MEDS ORDERED: INSULIN GLARGINE SOLOSTAR 100 UNITS/ML 3 ML PEN SC ONE (09:57)
[2020-03-26] MEDS ORDERED: SODIUM CHLORIDE 0.9% 250 ML IV PRN (13:36)
--- NOTE | 2020-03-26 13:41 | Hospitalist Progress Note ---
Date of Service March 26, 2020 Assessment & Plan (1) Acute blood loss anemia: Symptomatic acute blood loss anemia secondary to scalp laceration. Hemoglobin dropped to 7.1 the morning after admission. Baseline hemoglobin is 11. She was transfused 1 unit of PRBCs on 03/25 and hemoglobin on 03/26 is only up to 7.9 Continues to feel lightheaded today, is positive on her orthostatics with significant tachycardia with standing -Transfuse 1 unit PRBCs again on 03/26 Follow CBC in the morning Laceration has been repaired and there is no further bleeding Continue to hold Xarelto but can likely restart on Friday (2) Near syncope: Dizziness when she bent over and then hit her head when she stood back up causing laceration with acute blood loss anemia as above. No loss of consciousness or other symptoms of more concerning character. Blood pressure in the ER was 98/75 and was tachycardic in the 120s initially. Her usual BPs seem to run in the 140/80 range. -Continue to hold home lisinopril but will restart home verapamil Giving PRBCs as above Check orthostatics in the morning (3) Laceration of scalp: Sutured and stapled in the ED. Wound looks good today, no evidence of infection Continue wound care with gentle cleansing Will need rochelle removed around 04/02 -Continue oxycodone as needed for pain as she is having headache (4) Atrial fibrillation: Is in a sinus/paced rhythm here with A. fib at times, rates high at times -Continue holding Xarelto for recent eye surgery and persistent anemia. -Restart home verapamil -Continue amiodarone 200 mg once daily Continue telemetry monitoring (5) Diabetes mellitus type 2, uncontrolled: -Initially was on a lower dose of insulin when she came in but now with significant hyperglycemia Increased Lantus back to 30 units for tomorrow and give an extra 5 units this morning Holding home glipizide Continue sliding scale insulin Accu-Cheks, ADA diet (6) Hypothyroidism: TSH was normal range in 12/2019. - Continue home levothyroxine 37.5 mcg daily (7) Cardiac pacemaker: Placed for tachybradycardia syndrome (8) Aortic valve stenosis: Noted to be mild on echocardiogram from 12/2019 Follow with cardiology (9) Obstructive sleep apnea: Does not have CPAP, has declined repeat sleep study as per PCP notes (10) Breast cancer: Continue anastrozole (11) Gastroesophageal reflux disease: No acute issues Continue PPI (12) Hypercholesterolemia: Continue statin (13) Peripheral neuropathy: Continue Cymbalta and Lyrica (14) HBP (high blood pressure): Blood pressures were low on arrival from acute blood loss anemia and are now improved Continue holding home lisinopril, but restarting home verapamil as above (15) Orthostasis: As noted above, secondary to acute blood loss anemia Transfusing with PRBCs as above (16) DVT prophylaxis: SCDs - Holding anticoagulation due to eye surgery as above, will restart Xarelto potentially on Friday if hemoglobin stable Disposition-continued stay on PCU, PT/OT are recommending rehab/SNF. manager asset management notes that her insurance requires authorization which will have to wait until Friday. Admission and Anticipated Discharge Date Admission Date: March 24, 2020 Subjective Patient still reports she is feeling quite lightheaded with sitting up or standing. She was orthostatic with physical therapy earlier and her heart rate went up into the 140s to 160s with standing. She still has a fairly severe headache in the posterior region and is requesting an increase in the Percocet to 2 tablets. Her left side of her face and I has some mild pain. Her home eyedrops and ointment were brought in with instructions from her office agent as to how to use them. Telemetry with paced rhythm atrial fibrillation, rates in the 80s to 160s at times Review of Systems Review of Systems: All systems reviewed & are unremarkable except as noted in HPI & below Physical Exam Constitutional: WD/WN, vitals as above + obese Eyes: + eyelid abnormality (Left periorbital ecchymosis and edema), + anicteric sclerae and EOM intact bilaterally ENMT: external ear and nose normal, oropharynx normal (Except some ecchymosis in the right posterior oropharynx) Neck: trachea midline, no thyromegaly Respiratory: normal respiratory effort, lungs clear to auscultation Cardiovascular: RRR, no murmur, no edema Chest (Breasts): Chest: normal inspection of chest Gastrointestinal (Abdomen): normal bowel sounds, soft, nontender, no hepatosplenomegaly Musculoskeletal: Extremities: extremities normal to inspection; no cyanosis and no clubbing Skin: + wound (Right posterior scalp with rochelle in place over wound, no drainage) and + ecchymosis (Left periorbital region) Neurologic: moves all extremities and awake; no focal motor deficits Psychiatric: A+Ox3, euthymic affect Lymphatic: no lymphedema Results & Data Results & Data ([facility]) Vital Signs (Past 12 Hours) Vital Signs Temp Pulse Pulse Resp BP Pulse Ox 03/26/20 11:31 36.8 C 98 H 18 135/76 96 03/26/20 08:15 36.5 C 105 H 18 124/86 100 03/26/20 08:00 85 03/26/20 03:07 36.8 C 99 H 20 116/54 L 96 Laboratory Results 03/26/20 03/26/20 03/26/20 Range/Units 19:44 16:46 13:04 WBC (4.8-10.8) K/uL RBC (4.2-5.4) M/uL Hgb (12.0-16.0) g/dL Hct (37-47) % MCV (80-100) fL MCH (25-34) pg MCHC (32-36) g/dL RDW Std Deviation (36.4-46.3) fL RDW Coeff of Thompson (11.5-14.5) % Plt Count (130-400) K/uL MPV (7.4-10.4) fL Immature Gran % (Auto) % Neut % (Auto) % Lymph % (Auto) % Jay % (Auto) % Eos % (Auto) % Baso % (Auto) % Neut # (Auto) (1.4-6.5) K/uL Lymph # (Auto) (1.2-3.4) K/uL Jay # (Auto) (0.11-0.59) K/uL Eos # (Auto) (0-0.5) K/uL Baso # (Auto) (0-0.2) K/uL Immature Gran # (Auto) (0.00-0.02) K/uL RBC Morphology Sodium (136-145) mmol/L Potassium (3.5-5.1) mmol/L Chloride (98-107) mmol/L Carbon Dioxide (21-32) mmol/L Anion Gap (3-11) BUN (7-18) mg/dl Creatinine (0.6-1.2) mg/dl Est Cr Clr Drug Dosing ml/min Est GFR ( Amer) Est GFR (Non-Af Amer) BUN/Creatinine Ratio (10-20) Glucose (70-99) mg/dl POC Glucose 101 H 137 H 242 H (70-99) mg/dl Calcium (8.5-10.1) mg/dl Blood Type Antibody Screen Crossmatch 03/26/20 03/26/20 03/24/20 Range/Units 08:00 08:00 16:03 WBC 10.18 (4.8-10.8) K/uL RBC 2.78 L (4.2-5.4) M/uL Hgb 7.9 L (12.0-16.0) g/dL Hct 24.7 L (37-47) % MCV 88.8 (80-100) fL MCH 28.4 (25-34) pg MCHC 32.0 (32-36) g/dL RDW Std Deviation 54.0 H (36.4-46.3) fL RDW Coeff of Thompson 16.8 H (11.5-14.5) % Plt Count 160 (130-400) K/uL MPV 11.0 H (7.4-10.4) fL Immature Gran % (Auto) 0.3 % Neut % (Auto) 70.2 % Lymph % (Auto) 18.2 % Jay % (Auto) 11.0 % Eos % (Auto) 0.2 % Baso % (Auto) 0.1 % Neut # (Auto) 7.15 H (1.4-6.5) K/uL Lymph # (Auto) 1.85 (1.2-3.4) K/uL Jay # (Auto) 1.12 H (0.11-0.59) K/uL Eos # (Auto) 0.02 (0-0.5) K/uL Baso # (Auto) 0.01 (0-0.2) K/uL Immature Gran # (Auto) 0.03 H (0.00-0.02) K/uL RBC Morphology Unremarkable Sodium 139 (136-145) mmol/L Potassium 4.2 D (3.5-5.1) mmol/L Chloride 105 (98-107) mmol/L Carbon Dioxide 29 (21-32) mmol/L Anion Gap 6.0 (3-11) BUN 23 H (7-18) mg/dl Creatinine 0.84 (0.6-1.2) mg/dl Est Cr Clr Drug Dosing 65.2 ml/min Est GFR ( Amer) 80.5 Est GFR (Non-Af Amer) 69.4 BUN/Creatinine Ratio 26.9 H (10-20) Glucose 214 H (70-99) mg/dl POC Glucose (70-99) mg/dl Calcium 8.5 (8.5-10.1) mg/dl Blood Type O Positive Antibody Screen NEGATIVE Crossmatch See Detail PG Care Time/CCT Total # of Minutes Spent Total Time Spent with Patient: Total time spent is greater than 50% in coordination of care (as documented) at patient's floor/unit and/or counseling patient: Coding Level of Care Code 42367 Subseq Hosp Care Lvl 3 Diagnoses Acute blood loss anemia D62 Near syncope R55 Laceration of scalp S01.01XA Encounter type: initial encounter Atrial fibrillation I48.91 Atrial fibrillation type: unspecified Diabetes mellitus type 2, uncontrolled E11.65 Glycemic state: with hyperglycemia Hypothyroidism E03.9 Hypothyroidism type: unspecified Cardiac pacemaker Z95.0 Aortic valve stenosis I35.0 Obstructive sleep apnea G47.33 Breast cancer C50.919 Breast location: unspecified site of breast Estrogen receptor status: unspecified Laterality: unspecified laterality Patient sex: female Gastroesophageal reflux disease K21.9 Esophagitis presence: esophagitis presence not specified Hypercholesterolemia E78.00 Peripheral neuropathy G62.9 HBP (high blood pressure) I10 Orthostasis I95.1 DVT prophylaxis Z29.9 (1) Atrial fibrillation Atrial fibrillation type: unspecified Qualified Code(s): I48.91 - Unspecified atrial fibrillation (2) Hypothyroidism Hypothyroidism type: unspecified Qualified Code(s): E03.9 - Hypothyroidism, unspecified (3) Diabetes mellitus type 2, uncontrolled Glycemic state: with hyperglycemia Qualified Code(s): E11.65 - Type 2 diabetes mellitus with hyperglycemia (4) Breast cancer Breast location: unspecified site of breast Estrogen receptor status: unspecified Laterality: unspecified laterality Patient sex: female Qualified Code(s): C50.919 - Malignant neoplasm of unspecified site of unspecified female breast (5) Gastroesophageal reflux disease Esophagitis presence: esophagitis presence not specified Qualified Code(s): K21.9 - Gastro-esophageal reflux disease without esophagitis (6) Laceration of scalp Encounter type: initial encounter Qualified Code(s): S01.01XA - Laceration without foreign body of scalp, initial encounter
[2020-03-26] MEDS: ATORVASTATIN 40 MG TAB PO SCH (20:46)
[2020-03-26] MEDS: INSULIN GLARGINE SOLOSTAR 100 UNITS/ML 3 ML PEN SQ SCH (20:48)
[2020-03-27] MEDS: oxyCODONE/ACETAMINOPHEN 5mg/325mg TAB PO PRN ×5 (04:47→20:44)
[2020-03-27] MEDS: PREGABALIN 150 MG CAP PO SCH ×2 (07:31→20:44)
[2020-03-27] MEDS: PANTOprazole 40 MG TAB PO SCH (07:31)
[2020-03-27] MEDS: VERAPAMIL HCL 120 MG TABCR PO SCH (07:31)
[2020-03-27] MEDS: DULoxetine HCL 60 MG CAP PO SCH (07:31)
[2020-03-27] MEDS: AMIODARONE 200 MG TAB PO SCH (07:31)
[2020-03-27] MEDS: ANASTROZOLE 1 MG TAB PO SCH (07:31)
[2020-03-27] MEDS: LEVOTHYROXINE SODIUM 75 MCG TABLET PO SCH (07:31)
[2020-03-27] MEDS: INSULIN ASPART 100 UNITS/ML 3 ML PEN SC SCH ×4 (07:34→20:49)
[2020-03-27 08:05] LABS: Basophils # (auto) 0.01 K/uL (0-0.2); Basophils % (auto) 0.1 %; Eosinophils # (auto) 0.06 K/uL (0-0.5); Eosinophils % (auto) 0.7 %; Hematocrit (blood only) 28.5 % (37-47); Hemoglobin 9.2 g/dL (12.0-16.0); Immature Granulocytes # (auto) 0.02 K/uL (0.00-0.02); Immature Granulocytes % (auto) 0.2 %; Lymphocytes # (auto) 2.33 K/uL (1.2-3.4); Lymphocytes % (auto) 26.4 %; Mean Corpuscular Hemoglobin 29.1 pg (25-34); Mean Corpuscular Hgb Conc 32.3 g/dL (32-36); Mean Corpuscular Volume 90.2 fL (80-100); Mean Platelet Volume 10.8 fL (7.4-10.4); Monocytes # (auto) 0.96 K/uL (0.11-0.59); Monocytes % (auto) 10.9 %; Neutrophils # (auto) 5.43 K/uL (1.4-6.5); Neutrophils % (auto) 61.7 %; Platelet Count 182 K/uL (130-400); RDW Coefficient of Variation 16.7 % (11.5-14.5); RDW Standard Deviation 53.7 fL (36.4-46.3); Red Blood Count 3.16 M/uL (4.2-5.4); White Blood Count 8.81 K/uL (4.8-10.8)
[2020-03-27 08:40] LABS: BUN Creatinine Ratio 22.7 (10-20); Calcium 8.7 mg/dl (8.5-10.1); Creatinine Clr Calc Pharmacy 69.7 ml/min; Est GFR (African American) 86.7; Est GFR (Non-African American) 74.8; Potassium 3.8 mmol/L (3.5-5.1)
--- NOTE | 2020-03-27 15:00 | Hospitalist Progress Note ---
Date of Service March 27, 2020 Assessment & Plan (1) Acute blood loss anemia: Received 2 units packed red blood cells since admission. Hemoglobin now stable at 9.2. Scalp laceration has been repaired and there is no further bleeding Xarelto restarted today, March 27. (2) Near syncope: Dizziness when she bent over and then hit her head when she stood back up causing laceration with acute blood loss anemia as above. No loss of consciousness or other symptoms of more concerning character. Now resolved. -Continue to hold home lisinopril but restarted verapamil (3) Laceration of scalp: Sutured and stapled in the ED. stable. Will need rochelle removed around 04/02 -Continue oxycodone as needed for pain as she is having headache (4) Atrial fibrillation: Is in a sinus/paced rhythm here with A. fib at times, rates high at times -Xarelto held on admission but restarted today, March 27. -Continue verapamil -Continue amiodarone 200 mg once daily Continue telemetry monitoring (5) Diabetes mellitus type 2, uncontrolled: ADA diet. Basal insulin coverage. Sliding scale coverage. (6) Hypothyroidism: TSH was normal range in 12/2019. - Continue home levothyroxine 37.5 mcg daily (7) Cardiac pacemaker: Placed for tachybradycardia syndrome (8) Aortic valve stenosis: Noted to be mild on echocardiogram from 12/2019 Follow with cardiology (9) Obstructive sleep apnea: Does not have CPAP, has declined repeat sleep study as per PCP notes (10) Breast cancer: Continue anastrozole (11) Gastroesophageal reflux disease: No acute issues Continue PPI (12) Hypercholesterolemia: Continue statin (13) Peripheral neuropathy: Continue Cymbalta and Lyrica (14) HBP (high blood pressure): Blood pressures were low on arrival from acute blood loss anemia and are now improved Continue holding home lisinopril, but restarted verapamil as above (15) Orthostasis: As noted above, secondary to acute blood loss anemia. Resolved (16) DVT prophylaxis: Xarelto restarted today, March 27. Disposition-PT/OT are recommending rehab/SNF. Admission and Anticipated Discharge Date Admission Date: March 24, 2020 Subjective Alert and pleasant. The posterior scalp wound is stapled with hemostasis. Xarelto restarted today. Prior to this admission she had repair of a left tear duct with resultant left facial ecchymoses. This did not occur from her fall at home. Hemoglobin now appears to be stabilized. Possible discharge to SNF. Review of Systems Review of Systems: Constitutional-no fever or chills ENT-no blurred vision, no double vision, no epistaxis, no sore throat Respiratory-no cough, no wheezing, no shortness of breath Cardiac-no palpitations, no chest pain, no syncope GI-no nausea, vomiting, diarrhea, melena, hematochezia -no urinary retention, no urinary incontinence, no dysuria, no hematuria Musculoskeletal-no joint pain, no muscle tenderness Skin-staple and posterior scalp laceration. Left facial ecchymoses from recent surgery Neuro-no isolated weakness, no paresthesia, no weakness Psych-no depression, no anxiety Physical Exam Physical Exam: General-alert and oriented x3, no fevers, no chills HEENT-left posterior scalp laceration stapled with hemostasis. Left subconjunctival hemorrhage noted from recent left tear duct surgery. Left facial bruising noted Neck-no lymphadenopathy or thyromegaly, trachea midline Chest-clear to auscultation percussion. No rales wheezing or rhonchi Cardiac-regular rate and rhythm, normal S1 and S2, no murmurs Abdomen-normal bowel sounds, nontender, no hepatosplenomegaly Extremities-no cyanosis, clubbing, or edema Neuro-cranial nerves II through XII intact, motor and sensory function within normal limits, strength symmetrical 5/5, no focal deficits Psych-normal affect, normal mood Results & Data Results & Data ([facility]) Vital Signs (Past 12 Hours) Vital Signs Temp Pulse Resp BP Pulse Ox 03/27/20 11:23 36.5 C 88 18 172/85 H 92 03/27/20 07:07 36.5 C 74 19 122/74 95 03/27/20 04:08 36.6 C 93 H 22 121/80 92 Laboratory Results 03/27/20 07:32 03/27/20 07:32 PG Care Time/CCT Total # of Minutes Spent Total Time Spent with Patient: Total time spent is greater than 50% in coordination of care (as documented) at patient's floor/unit and/or counseling patient: Coding Level of Care Code 07554 Subseq Hosp Care Lvl 3 Diagnoses Acute blood loss anemia D62 Near syncope R55 Laceration of scalp S01.01XA Encounter type: initial encounter Atrial fibrillation I48.91 Atrial fibrillation type: unspecified Diabetes mellitus type 2, uncontrolled E11.65 Glycemic state: with hyperglycemia Hypothyroidism E03.9 Hypothyroidism type: unspecified Cardiac pacemaker Z95.0 Aortic valve stenosis I35.0 Obstructive sleep apnea G47.33 Breast cancer C50.919 Breast location: unspecified site of breast Estrogen receptor status: unspecified Patient sex: female Laterality: unspecified laterality Gastroesophageal reflux disease K21.9 Esophagitis presence: esophagitis presence not specified Hypercholesterolemia E78.00 Peripheral neuropathy G62.9 HBP (high blood pressure) I10 Orthostasis I95.1 DVT prophylaxis Z29.9 (1) Laceration of scalp Encounter type: initial encounter Qualified Code(s): S01.01XA - Laceration without foreign body of scalp, initial encounter (2) Atrial fibrillation Atrial fibrillation type: unspecified Qualified Code(s): I48.91 - Unspecified atrial fibrillation (3) Diabetes mellitus type 2, uncontrolled Glycemic state: with hyperglycemia Qualified Code(s): E11.65 - Type 2 d iabetes mellitus with hyperglycemia (4) Hypothyroidism Hypothyroidism type: unspecified Qualified Code(s): E03.9 - Hypothyroidism, unspecified (5) Breast cancer Breast location: unspecified site of breast Estrogen receptor status: unspecified Patient sex: female Laterality: unspecified laterality Qualified Code(s): C50.919 - Malignant neoplasm of unspecified site of unspecified female breast (6) Gastroesophageal reflux disease Esophagitis presence: esophagitis presence not specified Qualified Code(s): K21.9 - Gastro-esophageal reflux disease without esophagitis
[2020-03-27] MEDS: RIVAROXABAN 20 MG TAB PO SCH (16:45)
[2020-03-27] MEDS: ATORVASTATIN 40 MG TAB PO SCH (20:44)
[2020-03-27] MEDS: INSULIN GLARGINE SOLOSTAR 100 UNITS/ML 3 ML PEN SQ SCH (20:50)
[2020-03-28] MEDS: oxyCODONE/ACETAMINOPHEN 5mg/325mg TAB PO PRN ×5 (05:50→21:24)
[2020-03-28 06:13] LABS: Basophils # (auto) 0.01 K/uL (0-0.2); Basophils % (auto) 0.1 %; Eosinophils # (auto) 0.09 K/uL (0-0.5); Eosinophils % (auto) 1.2 %; Hemoglobin 8.6 g/dL (12.0-16.0); Immature Granulocytes # (auto) 0.01 K/uL (0.00-0.02); Immature Granulocytes % (auto) 0.1 %; Lymphocytes # (auto) 1.43 K/uL (1.2-3.4); Lymphocytes % (auto) 18.5 %; Mean Corpuscular Hemoglobin 28.8 pg (25-34); Mean Corpuscular Hgb Conc 31.9 g/dL (32-36); Mean Corpuscular Volume 90.3 fL (80-100); Mean Platelet Volume 10.9 fL (7.4-10.4); Monocytes # (auto) 0.73 K/uL (0.11-0.59); Monocytes % (auto) 9.5 %; Neutrophils # (auto) 5.44 K/uL (1.4-6.5); Neutrophils % (auto) 70.6 %; Nucleated RBC # (auto) 0.04 K/uL (0-0); Nucleated RBC % (auto) 0.5 %; Platelet Count 180 K/uL (130-400); RDW Coefficient of Variation 16.4 % (11.5-14.5); RDW Standard Deviation 52.8 fL (36.4-46.3); Red Blood Count 2.99 M/uL (4.2-5.4); White Blood Count 7.71 K/uL (4.8-10.8)
[2020-03-28] MEDS: LEVOTHYROXINE SODIUM 75 MCG TABLET PO SCH (08:40)
[2020-03-28] MEDS: PREGABALIN 150 MG CAP PO SCH ×2 (08:40→21:24)
[2020-03-28] MEDS: PANTOprazole 40 MG TAB PO SCH (08:40)
[2020-03-28] MEDS: AMIODARONE 200 MG TAB PO SCH (08:40)
[2020-03-28] MEDS: ANASTROZOLE 1 MG TAB PO SCH (08:40)
[2020-03-28] MEDS: VERAPAMIL HCL 120 MG TABCR PO SCH (08:40)
[2020-03-28] MEDS: DULoxetine HCL 60 MG CAP PO SCH (08:40)
[2020-03-28] MEDS: INSULIN ASPART 100 UNITS/ML 3 ML PEN SC SCH ×4 (08:42→21:25)
--- NOTE | 2020-03-28 13:12 | Hospitalist Progress Note ---
Date of Service March 28, 2020 Assessment & Plan (1) Acute blood loss anemia: Received 2 units packed red blood cells since admission. Hemoglobin down slightly today to 8.6. Will follow. Scalp laceration has been repaired with rochelle. Xarelto restarted March 27. (2) Near syncope: Dizziness when she bent over and then hit her head when she stood back up causing laceration with acute blood loss anemia as above. No loss of consciousness or other symptoms of more concerning character. Now resolved. -Continue to hold home lisinopril but restarted verapamil (3) Laceration of scalp: Sutured and stapled in the ED. stable. Will need rochelle removed around 04/02 -Continue oxycodone as needed for pain as she is having headache (4) Atrial fibrillation: Is in a sinus/paced rhythm here with A. fib at times, rates high at times -Xarelto held on admission but restarted March 27. -Continue verapamil -Continue amiodarone 200 mg once daily Continue telemetry monitoring (5) Diabetes mellitus type 2, uncontrolled: ADA diet. Basal insulin coverage. Sliding scale coverage. (6) Hypothyroidism: TSH was normal range in 12/2019. - Continue home levothyroxine 37.5 mcg daily (7) Cardiac pacemaker: Placed for tachybradycardia syndrome (8) Aortic valve stenosis: Noted to be mild on echocardiogram from 12/2019 Follow with cardiology (9) Obstructive sleep apnea: Does not have CPAP, has declined repeat sleep study as per PCP notes (10) Breast cancer: Continue anastrozole (11) Gastroesophageal reflux disease: No acute issues Continue PPI (12) Hypercholesterolemia: Continue statin (13) Peripheral neuropathy: Continue Cymbalta and Lyrica (14) HBP (high blood pressure): Blood pressures were low on arrival from acute blood loss anemia and are now improved Continue holding home lisinopril, but restarted verapamil as above (15) Orthostasis: As noted above, secondary to acute blood loss anemia. Resolved (16) DVT prophylaxis: Xarelto restarted March 27. Disposition-PT/OT are recommending rehab/SNF. Awaiting placement Admission and Anticipated Discharge Date Admission Date: March 24, 2020 Subjective Awake and alert. Pleasant. Hemoglobin down slightly to 8.6. She noticed some blood on her pillowcase from the posterior scalp laceration but no signs of active bleeding at this time. Awaiting on approval for IPR placement. Xarelto was restarted yesterday, March 27. Review of Systems Review of Systems: Constitutional-no fever or chills ENT-no blurred vision, no double vision, no epistaxis, no sore throat Respiratory-no cough, no wheezing, no shortness of breath Cardiac-no palpitations, no chest pain, no syncope GI-no nausea, vomiting, diarrhea, melena, hematochezia -no urinary retention, no urinary incontinence, no dysuria, no hematuria Musculoskeletal-no joint pain, no muscle tenderness Skin-no bruising, no rashes, no pruritus Neuro-no isolated weakness, no paresthesia, no weakness Psych-no depression, no anxiety Physical Exam Physical Exam: General-alert and oriented x3, no fevers, no chills HEENT-head atraumatic and normocephalic, TMs intact bilaterally, pupils equal and reactive to light, extraocular muscles intact Neck-no lymphadenopathy or thyromegaly, trachea midline Chest-clear to auscultation percussion. No rales wheezing or rhonchi Cardiac-regular rate and rhythm, normal S1 and S2, no murmurs Abdomen-normal bowel sounds, nontender, no hepatosplenomegaly Extremities-no cyanosis, clubbing, or edema Neuro-cranial nerves II through XII intact, no focal deficits Psych-normal affect, normal mood Skinposterior scalp laceration is stapled with hemostasis Results & Data Results & Data ([facility]) Vital Signs (Past 12 Hours) Vital Signs Temp Pulse Pulse Pulse Resp BP Pulse Ox 03/28/20 12:14 36.5 C 18 98 03/28/20 08:19 36.7 C 86 20 117/77 99 03/28/20 08:00 78 03/28/20 03:28 36.7 C 74 18 120/69 96 Laboratory Results 03/28/20 05:46 03/27/20 07:32 PG Care Time/CCT Total # of Minutes Spent Total Time Spent with Patient: Total time spent is greater than 50% in coordination of care (as documented) at patient's floor/unit and/or counseling patient: Coding Level of Care Code 39990 Subseq Hosp Care Lvl 2 Diagnoses Acute blood loss anemia D62 Near syncope R55 Laceration of scalp S01.01XA Encounter type: initial encounter Atrial fibrillation I48.91 Atrial fibrillation type: unspecified Diabetes mellitus type 2, uncontrolled E11.65 Glycemic state: with hyperglycemia Hypothyroidism E03.9 Hypothyroidism type: unspecified Cardiac pacemaker Z95.0 Aortic valve stenosis I35.0 Obstructive sleep apnea G47.33 Breast cancer C50.919 Breast location: unspecified site of breast Estrogen receptor status: unspecified Patient sex: female Laterality: unspecified laterality Gastroesophageal reflux disease K21.9 Esophagitis presence: esophagitis presence not specified Hypercholesterolemia E78.00 Peripheral neuropathy G62.9 HBP (high blood pressure) I10 Orthostasis I95.1 DVT prophylaxis Z29.9 (1) Laceration of scalp Encounter type: initial encounter Qualified Code(s): S01.01XA - Laceration without foreign body of scalp, initial encounter (2) Atrial fibrillation Atrial fibrillation type: unspecified Qualified Code(s): I48.91 - Unspecified atrial fibrillation (3) Diabetes mellitus type 2, uncontrolled Glycemic state: with hyperglycemia Qualified Code(s): E11.65 - Type 2 diabet es mellitus with hyperglycemia (4) Hypothyroidism Hypothyroidism type: unspecified Qualified Code(s): E03.9 - Hypothyroidism, unspecified (5) Breast cancer Breast location: unspecified site of breast Estrogen receptor status: unspecified Patient sex: female Laterality: unspecified laterality Qualified Code(s): C50.919 - Malignant neoplasm of unspecified site of unspecified female breast (6) Gastroesophageal reflux disease Esophagitis presence: esophagitis presence not specified Qualified Code(s): K21.9 - Gastro-esophageal reflux disease without esophagitis
[2020-03-28] MEDS: RIVAROXABAN 20 MG TAB PO SCH (17:22)
[2020-03-28] MEDS: ATORVASTATIN 40 MG TAB PO SCH (21:24)
[2020-03-28] MEDS: INSULIN GLARGINE SOLOSTAR 100 UNITS/ML 3 ML PEN SQ SCH (21:24)
[2020-03-29] MEDS: oxyCODONE/ACETAMINOPHEN 5mg/325mg TAB PO PRN ×6 (01:07→23:50)
[2020-03-29 07:30] LABS: Basophils # (auto) 0.01 K/uL (0-0.2); Basophils % (auto) 0.2 %; Eosinophils # (auto) 0.08 K/uL (0-0.5); Eosinophils % (auto) 1.3 %; Hematocrit (blood only) 25.5 % (37-47); Hemoglobin 8.2 g/dL (12.0-16.0); Immature Granulocytes # (auto) 0.01 K/uL (0.00-0.02); Immature Granulocytes % (auto) 0.2 %; Lymphocytes # (auto) 1.53 K/uL (1.2-3.4); Lymphocytes % (auto) 25.4 %; Mean Corpuscular Hemoglobin 29.5 pg (25-34); Mean Corpuscular Hgb Conc 32.2 g/dL (32-36); Mean Corpuscular Volume 91.7 fL (80-100); Mean Platelet Volume 10.8 fL (7.4-10.4); Monocytes % (auto) 11.6 %; Neutrophils % (auto) 61.3 %; Platelet Count 215 K/uL (130-400); RDW Coefficient of Variation 16.8 % (11.5-14.5); RDW Standard Deviation 53.9 fL (36.4-46.3); Red Blood Count 2.78 M/uL (4.2-5.4); White Blood Count 6.03 K/uL (4.8-10.8)
[2020-03-29] MEDS: LEVOTHYROXINE SODIUM 75 MCG TABLET PO SCH (07:55)
[2020-03-29] MEDS: AMIODARONE 200 MG TAB PO SCH (07:55)
[2020-03-29] MEDS: DULoxetine HCL 60 MG CAP PO SCH (07:55)
[2020-03-29] MEDS: ANASTROZOLE 1 MG TAB PO SCH (07:56)
[2020-03-29] MEDS: VERAPAMIL HCL 120 MG TABCR PO SCH (07:56)
[2020-03-29] MEDS: INSULIN ASPART 100 UNITS/ML 3 ML PEN SC SCH ×4 (07:56→20:54)
[2020-03-29] MEDS: PANTOprazole 40 MG TAB PO SCH (07:56)
[2020-03-29] MEDS: PREGABALIN 150 MG CAP PO SCH ×2 (08:02→20:20)
[2020-03-29] MEDS: RIVAROXABAN 20 MG TAB PO SCH (17:16)
--- NOTE | 2020-03-29 18:41 | Hospitalist Progress Note ---
Date of Service March 29, 2020 Assessment & Plan (1) Acute blood loss anemia: Initial Hg 9.7 --> 7.1 Received 2 units packed red blood cells After PRBC, hemoglobin down slightly 9.2 --> 8.6 --> 8.2. Cont daily CBC Scalp laceration no longer bleeding Xarelto restarted March 27. (2) Orthostasis: Dizziness when she bent over and then hit her head when she stood back up causing laceration with acute blood loss anemia No loss of consciousness or other symptoms of more concerning character. Orthostatics positive on admit On 03-29 still orthostatic with BP 129/78 lying and 89/54 standing stop lisinopril, stop verapamil may need more IV fluids (3) Laceration of scalp: Sutured and stapled in the ED. stable. Will need rochelle removed around 04/02 -Continue oxycodone as needed for pain as she is having headache (4) Atrial fibrillation: Is in a sinus/paced rhythm here with A. fib at times, rates high at times -Xarelto held on admission but restarted March 27. -stop verapamil, start low dose dilt 30 TID -Continue amiodarone 200 mg once daily -Continue telemetry monitoring (5) HBP (high blood pressure): Blood pressures going up 172/85 on 03-26 Continue holding home lisinopril, stop verapamil in setting of orthostatic hypotension We may need to let BP run a bit higher to avoid her becoming dizzy (6) Diabetes mellitus type 2, uncontrolled: ADA diet. Basal insulin coverage. Sliding scale coverage. (7) Hypothyroidism: TSH was normal range in 12/2019. - Continue home levothyroxine 37.5 mcg daily (8) Cardiac pacemaker: Placed for tachybradycardia syndrome (9) Aortic valve stenosis: Noted to be mild on echocardiogram from 12/2019 Follow with cardiology (10) Obstructive sleep apnea: Does not have CPAP, has declined repeat sleep study as per PCP notes (11) Breast cancer: Continue anastrozole (12) Gastroesophageal reflux disease: No acute issues Continue PPI (13) Hypercholesterolemia: Continue statin (14) Peripheral neuropathy: Continue Cymbalta and Lyrica (15) DVT prophylaxis: Xarelto restarted March 27. Disposition-PT/OT are recommending rehab/SNF. Awaiting placement Admission and Anticipated Discharge Date Admission Date: March 24, 2020 Subjective Patient endorsing headache and left sided abdominal pain. Asking for percocet. Slept well. Will be going to rehab when ready for discharge. Denies bleeding from scalp, no bloody BM or urine. Eating well. Review of Systems Constitutional: no fever, no chills, no fatigue, no weakness, no anorexia, no weight loss and no weight gain Ear, Nose, Mouth, Throat: no nasal congestion, no sore throat and no dysphagia Respiratory: no cough and no dyspnea Cardiovascular: no chest pain, no dyspnea on exertion, no orthopnea and no palpitations Gastrointestinal: + abdominal pain; no nausea, no vomiting, no hematemesis, no dysphagia, no constipation, no diarrhea/loose stools, no blood in stools and no melena Genitourinary: no dysuria, no urinary frequency, no hematuria and no flank pain Musculoskeletal: no back pain, no joint pain, no myalgia and no muscle weakness Integumentary: no rash, no lesions, no skin ulcer, no erythema, no dry skin and no pruritus Neurologic: + headache(s); no falls, no localized weakness, no generalized weakness, no numbness, no paresthesia and no tremor(s) Psychiatric: no depression, no suicidal ideation, no homicidal ideation and no anxiety Endocrine: no cold intolerance and no heat intolerance Hematologic / Lymphatic: no easy bleeding and no easy bruising Physical Exam Constitutional: well developed and well nourished; no acute distress Eyes: PERRL, conjunctivae normal, anicteric sclerae ENMT: Mouth: oral mucous membranes not dry Respiratory: normal respiratory effort; no respiratory distress and no labored breathing Auscultation: lungs clear to auscultation bilaterally; no crackles, no rales, no rhonchi and no wheezes Cardiovascular: Rate/Rhythm: regular rate and regular rhythm Heart Sounds: no murmur and no cardiac rub Vessels: normal peripheral pulses and radial pulses present; no JVD Extremities: no edema Gastrointestinal (Abdomen): Inspection/Auscultation: abdomen normal to inspection and normal bowel sounds; abdomen not distended Percussion/Palpation: abdomen soft; abdomen nontender, no guarding, abdomen not rigid and no hepatosplenomegaly Musculoskeletal: Head/Neck/Chest: normocephalic and head atraumatic Spine: no cervical spinal tenderness, no cervical muscular tenderness, no thoracic spinal tenderness and no lumbar spinal tenderness Skin: no rashes, warm and dry posterior scalp with rochelle in place, no active bleeding Neurologic: CN's II-XI intact bilaterally and moves all extremities Motor/Sensory: no tremor and no sensory deficit Psychiatric: Orientation: alert, oriented to person, oriented to place and oriented to time Apperance: appropriately groomed; not disheveled Affect: euthymic affect; no anxious affect and no tearful affect Genitourinary: no CVA tenderness no Sage catheter Results & Data Results & Data ([facility]) Vital Signs (Past 12 Hours) Vital Signs Temp Pulse Pulse Resp BP Pulse Ox 03/29/20 14:56 36.7 C 62 18 119/70 97 03/29/20 13:07 123 H 03/29/20 13:06 36.8 C 84 16 157/82 H 96 03/29/20 11:43 36.8 C 77 16 98 03/29/20 08:08 36.5 C 86 18 132/67 95 Laboratory Results Abnormal lab results 03/28/20 03/29/20 03/29/20 Range/Units 20:11 06:30 07:37 RBC 2.78 L (4.2-5.4) M/uL Hgb 8.2 L (12.0-16.0) g/dL Hct 25.5 L (37-47) % RDW Std Deviation 53.9 H (36.4-46.3) fL RDW Coeff of Thompson 16.8 H (11.5-14.5) % MPV 10.8 H (7.4-10.4) fL [place] # (Auto) 0.70 H (0.11-0.59) K/uL POC Glucose 163 H 105 H (70-99) mg/dl 03/29/20 Range/Units 11:27 RBC (4.2-5.4) M/uL Hgb (12.0-16.0) g/dL Hct (37-47) % RDW Std Deviation (36.4-46.3) fL RDW Coeff of Thompson (11.5-14.5) % MPV (7.4-10.4) fL [place] # (Auto) (0.11-0.59) K/uL POC Glucose 213 H (70-99) mg/dl Medications Administered Current Inpatient Medications Acetaminophen (Acetaminophen 500 Mg Tab) 500 mg PO Q6H PRN PRN Reason: Pain Stop: 04/23/20 20:40 Last Admin: 03/24/20 21:37 Dose: 500 mg Documented by: Amiodarone HCl (Amiodarone 200 Mg Tab) 200 mg PO DAILY [facility] Stop: 04/24/20 08:59 Last Admin: 03/29/20 07:55 Dose: 200 mg Documented by: Anastrozole (Anastrozole 1 Mg Tab) 1 mg PO QAM [facility] Stop: 04/24/20 08:59 Last Admin: 03/29/20 07:56 Dose: 1 mg Documented by: Atorvastatin Calcium (Atorvastatin 40 Mg Tab) 40 mg PO HS [facility] Stop: 04/23/20 20:59 Last Admin: 03/28/20 21:24 Dose: 40 mg Documented by: Dextrose (Dextrose 50% 50 Ml Syringe) 25 - 50 ml IV UD PRN; Protocol PRN Reason: Hypoglycemia Protocol Stop: 04/23/20 20:40 Diltiazem HCl (Diltiazem Hcl 30 Mg Tab) 30 mg PO TID [facility] Stop: 04/28/20 20:59 Duloxetine HCl (Duloxetine Hcl 60 Mg Cap) 60 mg PO QAM [facility] Stop: 04/24/20 08:59 Last Admin: 03/29/20 07:55 Dose: 60 mg Documented by: Glucagon (Glucagon For Inj 1 Mg Vial) 1 mg SQ UD PRN; Protocol PRN Reason: Hypoglycemia Protocol Stop: 04/23/20 20:40 Glucose (Glucose 10 Tabs/Tube) 4 - 8 tabs PO UD PRN; Protocol PRN Reason: Hypoglycemia Protocol Stop: 04/23/20 20:40 Glucose (Glucose 40% Gel 15 Gm Tube) 15 - 30 gm PO UD PRN; Protocol PRN Reason: Hypoglycemia Protocol Stop: 04/23/20 20:40 Insulin Aspart (Insulin Aspart 100 Units/Ml 3 Ml Pen) 0 units SC ACHS [facility] Stop: 04/23/20 20:59 Last Admin: 03/29/20 17:16 Dose: 4 units Documented by: Insulin Glargine (Insulin Glargine Solostar 100 Units/Ml 3 Ml Pen) 30 units SQ HS [facility] Stop: 04/25/20 20:59 Last Admin: 03/28/20 21:24 Dose: 30 units Documented by: Levothyroxine Sodium (Levothyroxine Sodium 75 Mcg Tablet) 37.5 mcg PO QAM [facility] Stop: 04/24/20 08:59 Last Admin: 03/29/20 07:55 Dose: 37.5 mcg Documented by: Miscellaneous (Carbohydrates For Hypoglycemia ) 15 - 30 gm PO UD PRN PRN Reason: Hypoglycemia Protocol Stop: 04/23/20 20:40 Ondansetron HCl (Ondansetron Inj 2 Mg/Ml 2 Ml Vial) 4 mg IV Q4H PRN PRN Reason: Nausea Stop: 04/23/20 20:40 Oxycodone/Acetaminophen (Oxycodone/Acetaminophen 5mg/325mg Tab) 1 tab PO Q4H PRN PRN Reason: moderate pain (5-7) Stop: 04/08/20 11:38 Last Admin: 03/29/20 14:01 Dose: 1 tab Documented by: Oxycodone/Acetaminophen (Oxycodone/Acetaminophen 5mg/325mg Tab) 2 tab PO Q4H PRN PRN Reason: severe pain scale 8-10 Stop: 04/09/20 13:39 Last Admin: 03/29/20 18:26 Dose: 2 tab Documented by: Pantoprazole Sodium (Pantoprazole 40 Mg Tab) 40 mg PO DAILY [facility] Stop: 04/24/20 08:59 Last Admin: 03/29/20 07:56 Dose: 40 mg Documented by: Pregabalin (Pregabalin 150 Mg Cap) 150 mg PO BID [facility] Stop: 04/24/20 20:59 Last Admin: 03/29/20 08:02 Dose: 150 mg Documented by: Rivaroxaban (Rivaroxaban 20 Mg Tab) 20 mg PO QDD [facility] Stop: 04/26/20 16:29 Last Admin: 03/29/20 17:16 Dose: 20 mg Documented by: PG Care Time/CCT Total # of Minutes Spent Total Time Spent with Patient: Total time spent is greater than 50% in coordination of care (as documented) at patient's floor/unit and/or counseling patient: Coding Level of Care Code 93407 Subseq Hosp Care Lvl 3 Diagnoses Acute blood loss anemia D62 Orthostasis I95.1 Laceration of scalp S01.01XA Encounter type: initial encounter Atrial fibrillation I48.91 Atrial fibrillation type: unspecified HBP (high blood pressure) I10 Hypertension type: unspecified Diabetes mellitus type 2, uncontrolled E11.65 Glycemic state: with hyperglycemia Hypothyroidism E03.9 Hypothyroidism type: unspecified Cardiac pacemaker Z95.0 Aortic valve stenosis I35.0 Cardiac valve disease etiology: etiology unspecified Obstructive sleep apnea G47.33 Breast cancer C50.919 Breast location: unspecified site of breast Estrogen receptor status: unspecified Patient sex: female Laterality: unspecified laterality Gastroesophageal reflux disease K21.9 Esophagitis presence: esophagitis presence not specified Hypercholesterolemia E78.00 Peripheral neuropathy G62.9 Peripheral neuropathy type: polyneuropathy, unspecified DVT prophylaxis Z29.9 (1) Laceration of scalp Encounter type: initial encounter Qualified Code(s): S01.01XA - Laceration without foreign body of scalp, initial encounter (2) Atrial fibrillation Atrial fibrillation type: unspecified Qualified Code(s): I48.91 - Unspecified atrial fibrillation (3) Diabetes mellitus type 2, uncontrolled Glycemic state: with hyperglycemia Qualified Code(s): E11.65 - Type 2 diabetes mellitus with hyperglycemia (4) Hypothyroidism Hypothyroidism type: unspecified Qualified Code(s): E03.9 - Hypothyroidism, unspecified (5) Aortic valve stenosis Cardiac valve disease etiology: etiology unspecified Qualified Code(s): I35.0 - Nonrheumatic aortic (valve) stenosis (6) Breast cancer Breast location: unspecified site of breast Estrogen receptor status: unspecified Patient sex: female Laterality: unspecified laterality Qualified Code(s): C50.919 - Malignant neoplasm of unspecified site of unspecified female breast (7) Gastroesophageal reflux disease Esophagitis presence: esophagitis presence not specified Qualified Code(s): K21.9 - Gastro-esophageal reflux disease without esophagitis (8) Peripheral neuropathy Peripheral neuropathy type: polyneuropathy, unspecified Qualified Code(s): G62.9 - Polyneuropathy, unspecified (9) HBP (high blood pressure) Hypertension type: unspecified Qualified Code(s): I10 - Essential (primary) hypertension
[2020-03-29] MEDS: ATORVASTATIN 40 MG TAB PO SCH (20:19)
[2020-03-29] MEDS: INSULIN GLARGINE SOLOSTAR 100 UNITS/ML 3 ML PEN SQ SCH (20:20)
[2020-03-29] MEDS: dilTIAZem HCL 30 MG TAB PO SCH (20:20)
[2020-03-30] MEDS: oxyCODONE/ACETAMINOPHEN 5mg/325mg TAB PO PRN ×5 (01:59→22:05)
[2020-03-30 07:02] LABS: Basophils # (auto) 0.02 K/uL (0-0.2); Basophils % (auto) 0.3 %; Eosinophils % (auto) 1.5 %; Hematocrit (blood only) 26.5 % (37-47); Hemoglobin 8.4 g/dL (12.0-16.0); Immature Granulocytes # (auto) 0.02 K/uL (0.00-0.02); Immature Granulocytes % (auto) 0.3 %; Lymphocytes # (auto) 1.61 K/uL (1.2-3.4); Mean Corpuscular Hemoglobin 29.2 pg (25-34); Mean Corpuscular Hgb Conc 31.7 g/dL (32-36); Mean Platelet Volume 10.6 fL (7.4-10.4); Monocytes # (auto) 0.88 K/uL (0.11-0.59); Monocytes % (auto) 13.1 %; Neutrophils # (auto) 4.08 K/uL (1.4-6.5); Neutrophils % (auto) 60.8 %; Platelet Count 245 K/uL (130-400); RDW Coefficient of Variation 17.2 % (11.5-14.5); RDW Standard Deviation 55.2 fL (36.4-46.3); Red Blood Count 2.88 M/uL (4.2-5.4); White Blood Count 6.71 K/uL (4.8-10.8)
[2020-03-30 07:33] LABS: BUN Creatinine Ratio 22.1 (10-20); Calcium 8.5 mg/dl (8.5-10.1); Creatinine Clr Calc Pharmacy 76.3 ml/min; Est GFR (African American) 95.4; Est GFR (Non-African American) 82.3
[2020-03-30] MEDS: ANASTROZOLE 1 MG TAB PO SCH (08:18)
[2020-03-30] MEDS: AMIODARONE 200 MG TAB PO SCH (08:19)
[2020-03-30] MEDS: DULoxetine HCL 60 MG CAP PO SCH (08:19)
[2020-03-30] MEDS: PANTOprazole 40 MG TAB PO SCH (08:19)
[2020-03-30] MEDS: PREGABALIN 150 MG CAP PO SCH ×2 (08:19→21:32)
[2020-03-30] MEDS: LEVOTHYROXINE SODIUM 75 MCG TABLET PO SCH (08:19)
[2020-03-30] MEDS: dilTIAZem HCL 30 MG TAB PO SCH ×3 (08:19→21:32)
[2020-03-30] MEDS: INSULIN ASPART 100 UNITS/ML 3 ML PEN SC SCH ×4 (08:23→21:30)
[2020-03-30] MEDS: ACETAMINOPHEN 500 MG TAB PO PRN (15:37)
[2020-03-30] MEDS: RIVAROXABAN 20 MG TAB PO SCH (15:39)
--- NOTE | 2020-03-30 18:21 | Hospitalist Progress Note ---
Date of Service March 30, 2020 Assessment & Plan (1) Acute blood loss anemia: Initial Hg 9.7 --> 7.1 Received 2 units packed red blood cells After PRBC, hemoglobin down slightly 9.2 --> 8.6 --> 8.2. Cont daily CBC Scalp laceration no longer bleeding Xarelto restarted March 27. (2) Orthostasis: Dizziness when she bent over and then hit her head when she stood back up causing laceration with acute blood loss anemia No loss of consciousness or other symptoms Orthostatics positive on admit On 03-29 still orthostatic with BP 129/78 lying and 89/54 standing On 03-30 BP 131/78 lying and 95/65 standing stop lisinopril, stop verapamil lyrica has been known to cause orthostatic hypotension -- will discuss with patient tomorrow could be related to anemia, but patient endorses orthostasis prior to admit to hospital give 500ml NS bolus (3) Laceration of scalp: Sutured and stapled in the ED. stable. Will need rochelle removed around 04/02 -Continue oxycodone as needed for pain as she is having headache (4) Atrial fibrillation: Is in a sinus/paced rhythm here with A. fib at times, rates high at times -Xarelto held on admission but restarted March 27. -stop verapamil due to potential for side effects, start low dose dilt 30 TID -Continue amiodarone 200 mg once daily -Continue telemetry monitoring (5) HBP (high blood pressure): 03-26 Blood pressures going up 172/85 03-30 well controlled Continue holding home lisinopril, stop verapamil in setting of orthostatic hypotension We may need to let BP run a bit higher to avoid her becoming dizzy (6) Diabetes mellitus type 2, uncontrolled: ADA diet. Basal insulin coverage. Sliding scale coverage. (7) Hypothyroidism: TSH was normal range in 12/2019. - Continue home levothyroxine 37.5 mcg daily (8) Cardiac pacemaker: Placed for tachybradycardia syndrome (9) Aortic valve stenosis: Noted to be mild on echocardiogram from 12/2019 Follow with cardiology (10) Obstructive sleep apnea: Does not have CPAP, has declined repeat sleep study as per PCP notes (11) Breast cancer: Continue anastrozole (12) Gastroesophageal reflux disease: No acute issues Continue PPI (13) Hypercholesterolemia: Continue statin (14) Peripheral neuropathy: Continue Cymbalta and Lyrica (15) DVT prophylaxis: Xarelto restarted March 27. Disposition-PT/OT are recommending rehab/SNF. Awaiting placement Admission and Anticipated Discharge Date Admission Date: March 24, 2020 Subjective Feels dizzy when she stands up too quickly. Still orthostatic. Not eating or drinking well. Denies active blood loss. No SOB, no edema. Review of Systems Constitutional: no fever, no chills, no fatigue, no weakness, no anorexia, no weight loss and no weight gain Ear, Nose, Mouth, Throat: no nasal congestion, no sore throat and no dysphagia Respiratory: no cough and no dyspnea Cardiovascular: no chest pain, no dyspnea on exertion, no orthopnea and no palpitations Gastrointestinal: no abdominal pain, no nausea, no vomiting, no hematemesis, no dysphagia, no constipation, no diarrhea/loose stools, no blood in stools and no melena Genitourinary: no dysuria, no urinary frequency, no hematuria and no flank pain Musculoskeletal: no back pain, no joint pain, no myalgia and no muscle weakness Integumentary: no rash, no lesions, no skin ulcer, no erythema, no dry skin and no pruritus Neurologic: no falls, no localized weakness, no generalized weakness, no numbness, no paresthesia, no tremor(s) and no headache(s) dizzy when standing Psychiatric: no depression, no suicidal ideation, no homicidal ideation and no anxiety Endocrine: no cold intolerance and no heat intolerance Hematologic / Lymphatic: no easy bleeding and no easy bruising Physical Exam Constitutional: well developed and well nourished; no acute distress Eyes: PERRL, conjunctivae normal, anicteric sclerae ENMT: Mouth: oral mucous membranes not dry Respiratory: normal respiratory effort; no respiratory distress and no labored breathing Auscultation: lungs clear to auscultation bilaterally; no crackles, no rales, no rhonchi and no wheezes Cardiovascular: Rate/Rhythm: regular rate and regular rhythm Heart Sounds: no murmur and no cardiac rub Vessels: normal peripheral pulses and radial pulses present; no JVD Extremities: no edema Gastrointestinal (Abdomen): Inspection/Auscultation: abdomen normal to inspection and normal bowel sounds; abdomen not distended Per cussion/Palpation: abdomen soft; abdomen nontender, no guarding, abdomen not rigid and no hepatosplenomegaly Musculoskeletal: Head/Neck/Chest: normocephalic and head atraumatic Spine: no cervical spinal tenderness, no cervical muscular tenderness, no thoracic spinal tenderness and no lumbar spinal tenderness Skin: no rashes, warm and dry Neurologic: CN's II-XI intact bilaterally and moves all extremities Motor/Sensory: no tremor and no sensory deficit Psychiatric: Orientation: alert, oriented to person, oriented to place and oriented to time Apperance: appropriately groomed; not disheveled Affect: euthymic affect; no anxious affect and no tearful affect Genitourinary: no CVA tenderness Results & Data Results & Data ([facility]) Vital Signs (Past 12 Hours) Vital Signs Temp Pulse Resp BP BP Pulse Ox 03/30/20 15:24 36.8 C 64 18 137/69 96 03/30/20 12:04 36.6 C 57 L 18 131/78 97 03/30/20 07:09 36.6 C 78 20 122/79 97 Laboratory Results Abnormal lab results 03/29/20 03/30/20 03/30/20 Range/Units 20:13 06:07 06:07 RBC 2.88 L (4.2-5.4) M/uL Hgb 8.4 L (12.0-16.0) g/dL Hct 26.5 L (37-47) % MCHC 31.7 L (32-36) g/dL RDW Std Deviation 55.2 H (36.4-46.3) fL RDW Coeff of Thompson 17.2 H (11.5-14.5) % MPV 10.6 H (7.4-10.4) fL [place] # (Auto) 0.88 H (0.11-0.59) K/uL BUN/Creatinine Ratio 22.1 H (10-20) Glucose 207 H (70-99) mg/dl POC Glucose 128 H (70-99) mg/dl 03/30/20 03/30/20 03/30/20 Range/Units 07:54 11:59 16:31 RBC (4.2-5.4) M/uL Hgb (12.0-16.0) g/dL Hct (37-47) % MCHC (32-36) g/dL RDW Std Deviation (36.4-46.3) fL RDW Coeff of Thompson (11.5-14.5) % MPV (7.4-10.4) fL [place] # (Auto) (0.11-0.59) K/uL BUN/Creatinine Ratio (10-20) Glucose (70-99) mg/dl POC Glucose 177 H 124 H 185 H (70-99) mg/dl Medications Administered Current Inpatient Medications Acetaminophen (Acetaminophen 500 Mg Tab) 500 mg PO Q6H PRN PRN Reason: Pain Stop: 04/23/20 20:40 Last Admin: 03/30/20 15:37 Dose: 500 mg Documented by: Amiodarone HCl (Amiodarone 200 Mg Tab) 200 mg PO DAILY [facility] Stop: 04/24/20 08:59 Last Admin: 03/30/20 08:19 Dose: 200 mg Documented by: Anastrozole (Anastrozole 1 Mg Tab) 1 mg PO QAM [facility] Stop: 04/24/20 08:59 Last Admin: 03/30/20 08:18 Dose: 1 mg Documented by: Atorvastatin Calcium (Atorvastatin 40 Mg Tab) 40 mg PO HS [facility] Stop: 04/23/20 20:59 Last Admin: 03/29/20 20:19 Dose: 40 mg Documented by: Dextrose (Dextrose 50% 50 Ml Syringe) 25 - 50 ml IV UD PRN; Protocol PRN Reason: Hypoglycemia Protocol Stop: 04/23/20 20:40 Diltiazem HCl (Diltiazem Hcl 30 Mg Tab) 30 mg PO TID [facility] Stop: 04/28/20 20:59 Last Admin: 03/30/20 12:48 Dose: 30 mg Documented by: Duloxetine HCl (Duloxetine Hcl 60 Mg Cap) 60 mg PO QAM [facility] Stop: 04/24/20 08:59 Last Admin: 03/30/20 08:19 Dose: 60 mg Documented by: Glucagon (Glucagon For Inj 1 Mg Vial) 1 mg SQ UD PRN; Protocol PRN Reason: Hypoglycemia Protocol Stop: 04/23/20 20:40 Glucose (Glucose 10 Tabs/Tube) 4 - 8 tabs PO UD PRN; Protocol PRN Reason: Hypoglycemia Protocol Stop: 04/23/20 20:40 Glucose (Glucose 40% Gel 15 Gm Tube) 15 - 30 gm PO UD PRN; Protocol PRN Reason: Hypoglycemia Protocol Stop: 04/23/20 20:40 Sodium Chloride (Nss 1000ml) 500 mls @ 999 mls/hr IV .Q31M ONE Stop: 03/30/20 18:37 Insulin Aspart (Insulin Aspart 100 Units/Ml 3 Ml Pen) 0 units SC ACHS [facility] Stop: 04/23/20 20:59 Last Admin: 03/30/20 17:13 Dose: 9 units Documented by: Insulin Glargine (Insulin Glargine Solostar 100 Units/Ml 3 Ml Pen) 30 units SQ HS [facility] Stop: 04/25/20 20:59 Last Admin: 03/29/20 20:20 Dose: 30 units Documented by: Levothyroxine Sodium (Levothyroxine Sodium 75 Mcg Tablet) 37.5 mcg PO QAM [facility] Stop: 04/24/20 08:59 Last Admin: 03/30/20 08:19 Dose: 37.5 mcg Documented by: Miscellaneous (Carbohydrates For Hypoglycemia ) 15 - 30 gm PO UD PRN PRN Reason: Hypoglycemia Protocol Stop: 04/23/20 20:40 Ondansetron HCl (Ondansetron Inj 2 Mg/Ml 2 Ml Vial) 4 mg IV Q4H PRN PRN Reason: Nausea Stop: 04/23/20 20:40 Oxycodone/Acetaminophen (Oxycodone/Acetaminophen 5mg/325mg Tab) 1 tab PO Q4H PRN PRN Reason: moderate pain (5-7) Stop: 04/08/20 11:38 Last Admin: 03/30/20 17:18 Dose: 1 tab Documented by: Oxycodone/Acetaminophen (Oxycodone/Acetaminophen 5mg/325mg Tab) 2 tab PO Q4H PRN PRN Reason: severe pain scale 8-10 Stop: 04/09/20 13:39 Last Admin: 03/30/20 12:53 Dose: 2 tab Documented by: Pantoprazole Sodium (Pantoprazole 40 Mg Tab) 40 mg PO DAILY [facility] Stop: 04/24/20 08:59 Last Admin: 03/30/20 08:19 Dose: 40 mg Documented by: Pregabalin (Pregabalin 150 Mg Cap) 150 mg PO BID [facility] Stop: 04/24/20 20:59 Last Admin: 03/30/20 08:19 Dose: 150 mg Documented by: Rivaroxaban (Rivaroxaban 20 Mg Tab) 20 mg PO QDD [facility] Stop: 04/26/20 16:29 Last Admin: 03/30/20 15:39 Dose: 20 mg Documented by: PG Care Time/CCT Total # of Minutes Spent Total Time Spent with Patient: Total time spent is greater than 50% in coordination of care (as documented) at patient's floor/unit and/or counseling patient: Coding Level of Care Code 45741 Subseq Hosp Care Lvl 3 Diagnoses Acute blood loss anemia D62 Orthostasis I95.1 Laceration of scalp S01.01XA Encounter type: initial encounter Atrial fibrillation I48.91 Atrial fibrillation type: unspecified HBP (high blood pressure) I10 Hypertension type: unspecified Diabetes mellitus type 2, uncontrolled E11.65 Glycemic state: with hyperglycemia Hypothyroidism E03.9 Hypothyroidism type: unspecified Cardiac pacemaker Z95.0 Aortic valve stenosis I35.0 Cardiac valve disease etiology: etiology unspecified Obstructive sleep apnea G47.33 Breast cancer C50.919 Breast location: unspecified site of breast Estrogen receptor status: unspecified Patient sex: female Laterality: unspecified laterality Gastroesophageal reflux disease K21.9 Esophagitis presence: esophagitis presence not specified Hypercholesterolemia E78.00 Peripheral neuropathy G62.9 Peripheral neuropathy type: polyneuropathy, unspecified DVT prophylaxis Z29.9 (1) Laceration of scalp Encounter type: initial encounter Qualified Code(s): S01.01XA - Laceration without foreign body of scalp, initial encounter (2) Atrial fibrillation Atrial fibrillation type: unspecified Qualified Code(s): I48.91 - Unspecified atrial fibrillation (3) HBP (high blood pressure) Hypertension type: unspecified Qualified Code(s): I10 - Essential (primary) hypertension (4) Diabetes mellitus type 2, uncontrolled Glycemic state: with hyperglycemia Qualified Code(s): E11.65 - Type 2 diabetes mellitus with hyperglycemia (5) Hypothyroidism Hypothyroidism type: unspecified Qualified Code(s): E03.9 - Hypothyroidism, unspecified (6) Aortic valve stenosis Cardiac valve disease etiology: etiology unspecified Qualified Code(s): I35.0 - Nonrheumatic aortic (valve) stenosis (7) Breast cancer Breast location: unspecified site of breast Estrogen receptor status: unspecified Patient sex: female Laterality: unspecified laterality Qualified Code(s): C50.919 - Malignant neoplasm of unspecified site of unspecified female breast (8) Gastroesophageal reflux disease Esophagitis presence: esophagitis presence not specified Qualified Code(s): K21.9 - Gastro-esophageal reflux disease without esophagitis (9) Peripheral neuropathy Peripheral neuropathy type: polyneuropathy, unspecified Qualified Code(s): G62.9 - Polyneuropathy, unspecified
[2020-03-30] MEDS ORDERED: SODIUM CHLORIDE 0.9% 500 ML IV ONE (18:30)
[2020-03-30] MEDS: INSULIN GLARGINE SOLOSTAR 100 UNITS/ML 3 ML PEN SQ SCH (21:31)
[2020-03-30] MEDS: ATORVASTATIN 40 MG TAB PO SCH (21:33)
[2020-03-31 06:21] LABS: Basophils # (auto) 0.01 K/uL (0-0.2); Basophils % (auto) 0.2 %; Eosinophils % (auto) 1.7 %; Hematocrit (blood only) 25.4 % (37-47); Hemoglobin 7.7 g/dL (12.0-16.0); Immature Granulocytes # (auto) 0.01 K/uL (0.00-0.02); Immature Granulocytes % (auto) 0.2 %; Lymphocytes # (auto) 1.01 K/uL (1.2-3.4); Lymphocytes % (auto) 16.7 %; Mean Corpuscular Hemoglobin 28.4 pg (25-34); Mean Corpuscular Hgb Conc 30.3 g/dL (32-36); Mean Corpuscular Volume 93.7 fL (80-100); Mean Platelet Volume 10.5 fL (7.4-10.4); Monocytes # (auto) 0.55 K/uL (0.11-0.59); Monocytes % (auto) 9.1 %; Neutrophils # (auto) 4.38 K/uL (1.4-6.5); Neutrophils % (auto) 72.1 %; Platelet Count 241 K/uL (130-400); RDW Coefficient of Variation 17.4 % (11.5-14.5); RDW Standard Deviation 57.7 fL (36.4-46.3); Red Blood Count 2.71 M/uL (4.2-5.4); White Blood Count 6.06 K/uL (4.8-10.8)
[2020-03-31 06:48] LABS: BUN Creatinine Ratio 26.1 (10-20); Calcium 8.1 mg/dl (8.5-10.1); Creatinine Clr Calc Pharmacy 84.9 ml/min; Est GFR (African American) 102.8; Est GFR (Non-African American) 88.7
[2020-03-31 06:49] LABS: Phosphorus 3.9 mg/dl (2.5-4.9)
[2020-03-31 06:51] LABS: Polychromasia 1+
[2020-03-31] MEDS: INSULIN ASPART 100 UNITS/ML 3 ML PEN SC SCH ×4 (09:00→20:24)
[2020-03-31] MEDS: AMIODARONE 200 MG TAB PO SCH (09:01)
[2020-03-31] MEDS: ANASTROZOLE 1 MG TAB PO SCH (09:01)
[2020-03-31] MEDS: DULoxetine HCL 60 MG CAP PO SCH (09:02)
[2020-03-31] MEDS: PANTOprazole 40 MG TAB PO SCH (09:02)
[2020-03-31] MEDS: dilTIAZem HCL 30 MG TAB PO SCH ×3 (09:02→20:25)
[2020-03-31] MEDS: LEVOTHYROXINE SODIUM 75 MCG TABLET PO SCH (09:04)
[2020-03-31] MEDS: oxyCODONE/ACETAMINOPHEN 5mg/325mg TAB PO PRN ×3 (09:06→20:23)
[2020-03-31] MEDS: PREGABALIN 150 MG CAP PO SCH (09:06)
--- NOTE | 2020-03-31 09:58 | Hospitalist Progress Note ---
Date of Service March 31, 2020 Assessment & Plan (1) Acute blood loss anemia: Initial Hg 9.7 --> 7.1 Received 2 units packed red blood cells After PRBC, hemoglobin down slightly 9.2 --> 8.6 --> 8.2 Cont daily CBC Scalp laceration no longer bleeding 03-27 Xarelto restarted 03-31 Hg 7.7, checking hemoccult (2) Orthostasis: Dizziness when she bent over and then hit her head when she stood back up causing laceration with acute blood loss anemia No loss of consciousness or other symptoms Orthostatics positive on admit On 03-29 still orthostatic with BP 129/78 lying and 89/54 standing On 03-30 BP 131/78 lying and 95/65 standing stop lisinopril, stop verapamil lyrica has been known to cause orthostatic hypotension -- will decrease lyrica to half her normal dose could be related to anemia, but patient endorses orthostasis prior to admit to hospital give 500ml NS bolus (3) Laceration of scalp: Sutured and stapled in the ED. stable. Will need rochelle removed around 04/02 -Continue oxycodone as needed for pain as she is having headache (4) Atrial fibrillation: Is in a sinus/paced rhythm here with A. fib at times, rates high at times -Xarelto held on admission but restarted March 27. -stop verapamil due to potential for side effects, start low dose dilt 30 TID -Continue amiodarone 200 mg once daily -Continue telemetry monitoring (5) HBP (high blood pressure): 03-26 Blood pressures going up 172/85 03-30 well controlled Continue holding home lisinopril, stop verapamil in setting of orthostatic hypo tension We may need to let BP run a bit higher to avoid her becoming dizzy (6) Diabetes mellitus type 2, uncontrolled: ADA diet. Basal insulin coverage. Sliding scale coverage. (7) Hypothyroidism: TSH was normal range in 12/2019. - Continue home levothyroxine 37.5 mcg daily (8) Cardiac pacemaker: Placed for tachybradycardia syndrome (9) Aortic valve stenosis: Noted to be mild on echocardiogram from 12/2019 Follow with cardiology (10) Obstructive sleep apnea: Does not have CPAP, has declined repeat sleep study as per PCP notes (11) Breast cancer: Continue anastrozole (12) Gastroesophageal reflux disease: No acute issues Continue PPI (13) Hypercholesterolemia: Continue statin (14) Peripheral neuropathy: Continue Cymbalta and Lyrica (15) DVT prophylaxis: Xarelto restarted March 27. Disposition: going to [facility] [place] 04-03 Admission and Anticipated Discharge Date Admission Date: March 24, 2020 Subjective Patient has no complaints. Denies melena, states she had three very small hard bowel movements today. Eating well. No bleeding from scalp. States she is persistently dizzy when standing up. Says she almost passed out this morning. Denies sob, edema. Denies chest pain and abdominal pain. Review of Systems Constitutional: no fever, no chills, no fatigue, no weakness, no anorexia, no weight loss and no weight gain Ear, Nose, Mouth, Throat: no nasal congestion, no sore throat and no dysphagia Respiratory: no cough and no dyspnea Cardiovascular: no chest pain, no dyspnea on exertion, no orthopnea and no palpitations Gastrointestinal: no abdominal pain, no nausea, no vomiting, no hematemesis, no dysphagia, no constipation, no diarrhea/loose stools, no blood in stools and no melena Genitourinary: no dysuria, no urinary frequency, no hematuria and no flank pain Musculoskeletal: no back pain, no joint pain, no myalgia and no muscle weakness Integumentary: no rash, no lesions, no skin ulcer, no erythema, no dry skin and no pruritus Neurologic: no falls, no localized weakness, no generalized weakness, no numbness, no paresthesia, no tremor(s) and no headache(s) dizzy when standing Psychiatric: no depression, no suicidal ideation, no homicidal ideation and no anxiety Endocrine: no cold intolerance and no heat intolerance Hematologic / Lymphatic: no easy bleeding and no easy bruising Physical Exam Constitutional: well developed and well nourished; no acute distress Eyes: PERRL, conjunctivae normal, anicteric sclerae ENMT: Mouth: oral mucous membranes not dry Respiratory: normal respiratory effort; no respiratory distress and no labored breathing Auscultation: lungs clear to auscultation bilaterally; no crackles, no rales, no rhonchi and no wheezes Cardiovascular: Rate/Rhythm: regular rate and regular rhythm Heart Sounds: no murmur and no cardiac rub Vessels: normal peripheral pulses and radial pulses present; no JVD Extremities: no edema Gastrointestinal (Abdomen): Inspection/Auscultation: abdomen normal to inspection and normal bowel sounds; abdomen not distended Percussion/Palpation: abdomen soft; abdomen nontender, no guarding, abdomen not rigid and no hepatosplenomegaly Musculoskeletal: Head/Neck/Chest: normocephalic and head atraumatic Spine: no cervical spinal tenderness, no cervical muscular tenderness, no thoracic spinal tenderness and no lumbar spinal tenderness Skin: no rashes, warm and dry Neurologic: CN's II-XI intact bilaterally and moves all extremities Motor/Sensory: no tremor and no sensory deficit Psychiatric: Orientation: alert, oriented to person, oriented to place and oriented to time Apperance: appropriately groomed; not disheveled Affect: euthymic affect; no anxious affect and no tearful affect Genitourinary: no CVA tenderness Results & Data Results & Data ([facility]) Vital Signs (Past 12 Hours) Vital Signs Temp Pulse Pulse Resp BP BP Pulse Ox 03/31/20 07:37 36.7 C 105 H 18 128/72 93 03/31/20 07:17 103 H 03/31/20 03:40 36.4 C L 72 18 141/83 H 94 03/30/20 22:45 36.9 C 86 18 136/73 94 Laboratory Results Abnormal lab results 03/30/20 03/30/20 03/30/20 Range/Units 11:59 16:31 20:22 RBC (4.2-5.4) M/uL Hgb (12.0-16.0) g/dL Hct (37-47) % MCHC (32-36) g/dL RDW Std Deviation (36.4-46.3) fL RDW Coeff of Thompson (11.5-14.5) % MPV (7.4-10.4) fL Lymph # (Auto) (1.2-3.4) K/uL Anion Gap (3-11) BUN/Creatinine Ratio (10-20) Glucose (70-99) mg/dl POC Glucose 124 H 185 H 177 H (70-99) mg/dl Calcium (8.5-10.1) mg/dl 03/31/20 03/31/20 03/31/20 Range/Units 05:56 05:56 07:57 RBC 2.71 L (4.2-5.4) M/uL Hgb 7.7 L (12.0-16.0) g/dL Hct 25.4 L (37-47) % MCHC 30.3 L (32-36) g/dL RDW Std Deviation 57.7 H (36.4-46.3) fL RDW Coeff of Thompson 17.4 H (11.5-14.5) % MPV 10.5 H (7.4-10.4) fL Lymph # (Auto) 1.01 L (1.2-3.4) K/uL Anion Gap 2.0 L (3-11) BUN/Creatinine Ratio 26.1 H (10-20) Glucose 142 H (70-99) mg/dl POC Glucose 144 H (70-99) mg/dl Calcium 8.1 L (8.5-10.1) mg/dl Medications Administered Current Inpatient Medications Acetaminophen (Acetaminophen 500 Mg Tab) 500 mg PO Q6H PRN PRN Reason: Pain Stop: 04/23/20 20:40 Last Admin: 03/30/20 15:37 Dose: 500 mg Documented by: Amiodarone HCl (Amiodarone 200 Mg Tab) 200 mg PO DAILY RUTH Stop: 04/24/20 08:59 Last Admin: 03/31/20 09:01 Dose: 200 mg Documented by: Anastrozole (Anastrozole 1 Mg Tab) 1 mg PO QAM RUTH Stop: 04/24/20 08:59 Last Admin: 03/31/20 09:01 Dose: 1 mg Documented by: Atorvastatin Calcium (Atorvastatin 40 Mg Tab) 40 mg PO HS RUTH Stop: 04/23/20 20:59 Last Admin: 03/30/20 21:33 Dose: 40 mg Documented by: Dextrose (Dextrose 50% 50 Ml Syringe) 25 - 50 ml IV UD PRN; Protocol PRN Reason: Hypoglycemia Protocol Stop: 04/23/20 20:40 Diltiazem HCl (Diltiazem Hcl 30 Mg Tab) 30 mg PO TID RUTH Stop: 04/28/20 20:59 Last Admin: 03/31/20 09:02 Dose: 30 mg Documented by: Duloxetine HCl (Duloxetine Hcl 60 Mg Cap) 60 mg PO QAM RUTH Stop: 04/24/20 08:59 Last Admin: 03/31/20 09:02 Dose: 60 mg Documented by: Glucagon (Glucagon For Inj 1 Mg Vial) 1 mg SQ UD PRN; Protocol PRN Reason: Hypoglycemia Protocol Stop: 04/23/20 20:40 Glucose (Glucose 10 Tabs/Tube) 4 - 8 tabs PO UD PRN; Protocol PRN Reason: Hypoglycemia Protocol Stop: 04/23/20 20:40 Glucose (Glucose 40% Gel 15 Gm Tube) 15 - 30 gm PO UD PRN; Protocol PRN Reason: Hypoglycemia Protocol Stop: 04/23/20 20:40 Insulin Aspart (Insulin Aspart 100 Units/Ml 3 Ml Pen) 0 units SC ACHS [facility] Stop: 04/23/20 20:59 Last Admin: 03/31/20 09:00 Dose: 6 units Documented by: Insulin Glargine (Insulin Glargine Solostar 100 Units/Ml 3 Ml Pen) 30 units SQ HS [facility] Stop: 04/25/20 20:59 Last Admin: 03/30/20 21:31 Dose: 30 units Documented by: Levothyroxine Sodium (Levothyroxine Sodium 75 Mcg Tablet) 37.5 mcg PO QAM [facility] Stop: 04/24/20 08:59 Last Admin: 03/31/20 09:04 Dose: 37.5 mcg Documented by: Miscellaneous (Carbohydrates For Hypoglycemia ) 15 - 30 gm PO UD PRN PRN Reason: Hypoglycemia Protocol Stop: 04/23/20 20:40 Ondansetron HCl (Ondansetron Inj 2 Mg/Ml 2 Ml Vial) 4 mg IV Q4H PRN PRN Reason: Nausea Stop: 04/23/20 20:40 Oxycodone/Acetaminophen (Oxycodone/Acetaminophen 5mg/325mg Tab) 1 tab PO Q4H PRN PRN Reason: moderate pain (5-7) Stop: 04/08/20 11:38 Last Admin: 03/30/20 17:18 Dose: 1 tab Documented by: Oxycodone/Acetaminophen (Oxycodone/Acetaminophen 5mg/325mg Tab) 2 tab PO Q4H PRN PRN Reason: severe pain scale 8-10 Stop: 04/09/20 13:39 Last Admin: 03/31/20 09:06 Dose: 2 tab Documented by: Pantoprazole Sodium (Pantoprazole 40 Mg Tab) 40 mg PO DAILY [facility] Stop: 12/07/20 08:59 Last Admin: 03/31/20 09:02 Dose: 40 mg Documented by: Pregabalin (Pregabalin 150 Mg Cap) 150 mg PO BID [facility] Stop: 04/24/20 20:59 Last Admin: 03/31/20 09:06 Dose: 150 mg Documented by: Rivaroxaban (Rivaroxaban 20 Mg Tab) 20 mg PO QDD [facility] Stop: 04/26/20 16:29 Last Admin: 03/30/20 15:39 Dose: 20 mg Documented by: PG Care Time/CCT Total # of Minutes Spent Total Time Spent with Patient: Total time spent is greater than 50% in coordination of care (as documented) at patient's floor/unit and/or counseling patient: Coding Level of Care Code 42568 Subseq Hosp Care Lvl 3 Diagnoses Acute blood loss anemia D62 Orthostasis I95.1 Laceration of scalp S01.01XA Encounter type: initial encounter Atrial fibrillation I48.91 Atrial fibrillation type: unspecified HBP (high blood pressure) I10 Hypertension type: unspecified Diabetes mellitus type 2, uncontrolled E11.65 Glycemic state: with hyperglycemia Hypothyroidism E03.9 Hypothyroidism type: unspecified Cardiac pacemaker Z95.0 Aortic valve stenosis I35.0 Cardiac valve disease etiology: etiology unspecified Obstructive sleep apnea G47.33 Breast cancer C50.919 Breast location: unspecified site of breast Estrogen receptor status: unspecified Laterality: unspecified laterality Patient sex: female Gastroesophageal reflux disease K21.9 Esophagitis presence: esophagitis presence not specified Hypercholesterolemia E78.00 Peripheral neuropathy G62.9 Peripheral neuropathy type: polyneuropathy, unspecified DVT prophylaxis Z29.9 (1) Aortic valve stenosis Cardiac valve disease etiology: etiology unspecified Qualified Code(s): I35.0 - Nonrheumatic aortic (valve) stenosis (2) Atrial fibrillation Atrial fibrillation type: unspecified Qualified Code(s): I48.91 - Unspecified atrial fibrillation (3) Hypothyroidism Hypothyroidism type: unspecified Qualified Code(s): E03.9 - Hypothyroidism, unspecified (4) Diabetes mellitus type 2, uncontrolled Glycemic state: with hyperglycemia Qualified Code(s): E11.65 - Type 2 diabetes mellitus with hyperglycemia (5) Peripheral neuropathy Peripheral neuropathy type: polyneuropathy, unspecified Qualified Code(s): G62.9 - Polyneuropathy, unspecified (6) Breast cancer Breast location: unspecified site of breast Estrogen receptor status: unspecified Laterality: unspecified laterality Patient sex: female Qualified Code(s): C50.919 - Malignant neoplasm of unspecified site of unspecified female breast (7) Gastroesophageal reflux disease Esophagitis presence: esophagitis presence not specified Qualified Code(s): K21.9 - Gastro-esophageal reflux disease without esophagitis (8) HBP (high blood pressure) Hypertension type: unspecified Qualified Code(s): I10 - Essential (primary) hypertension (9) Laceration of scalp Encounter type: initial encounter Qualified Code(s): S01.01XA - Laceration without foreign body of scalp, initial encounter
[2020-03-31] MEDS: RIVAROXABAN 20 MG TAB PO SCH (16:18)
[2020-03-31] MEDS: DOCUSATE SODIUM/SENNA 50/8.6MG TAB PO SCH (16:18)
[2020-03-31] MEDS: INSULIN GLARGINE SOLOSTAR 100 UNITS/ML 3 ML PEN SQ SCH (20:24)
[2020-03-31] MEDS: ATORVASTATIN 40 MG TAB PO SCH (20:25)
[2020-03-31] MEDS: PREGABALIN 75 MG CAP PO SCH (20:27)
[2020-04-01] MEDS: oxyCODONE/ACETAMINOPHEN 5mg/325mg TAB PO PRN ×4 (02:19→20:12)
[2020-04-01 06:59] LABS: Hematocrit (blood only) 25.2 % (37-47); Mean Corpuscular Hemoglobin 29.1 pg (25-34); Mean Corpuscular Hgb Conc 31.7 g/dL (32-36); Mean Corpuscular Volume 91.6 fL (80-100); Mean Platelet Volume 9.9 fL (7.4-10.4); Platelet Count 220 K/uL (130-400); RDW Coefficient of Variation 17.4 % (11.5-14.5); RDW Standard Deviation 56.1 fL (36.4-46.3); Red Blood Count 2.75 M/uL (4.2-5.4); White Blood Count 3.25 K/uL (4.8-10.8)
[2020-04-01 07:32] LABS: BUN Creatinine Ratio 18.6 (10-20); Calcium 8.5 mg/dl (8.5-10.1); Creatinine Clr Calc Pharmacy 81.4 ml/min; Est GFR (African American) 101.3; Est GFR (Non-African American) 87.4; Potassium 4.8 mmol/L (3.5-5.1)
[2020-04-01] MEDS ORDERED: PREGABALIN 150 MG CAP PO SCH (09:00)
--- NOTE | 2020-04-01 09:15 | Hospitalist Progress Note ---
Date of Service April 01, 2020 Assessment & Plan (1) Acute blood loss anemia: Initial Hg 9.7 --> 7.1 Received 2 units packed red blood cells After PRBC, hemoglobin down slightly 9.2 --> 8.6 --> 8.2 Cont daily CBC Scalp laceration no longer bleeding 03-27 Xarelto restarted 03-31 Hg 7.7, checking hemoccult 04-01 Hg 8, but patient still orthostatic and fatigued. Checked CT a/p -- no active hemorrhage. Giving 1 unit PRBC. (2) Orthostasis: Dizziness when she bent over and then hit her head when she stood back up causing laceration with acute blood loss anemia No loss of consciousness or other symptoms Orthostatics positive on admit On 03-29 still orthostatic with BP 129/78 lying and 89/54 standing On 03-30 BP 131/78 lying and 95/65 standing stop lisinopril, stop verapamil lyrica has been known to cause orthostatic hypotension, consider modifying could be related to anemia, but patient endorses orthostasis prior to admit to hospital gave 500ml NS bolus 03-31 BP 129/73 lying and 106/56 standing, decreased lyrica to half home dose 04-01 Still symptomatic from orthostasis. Giving 1 unit PRBC. (3) Supine hypertension: 03-26 Blood pressures going up 172/85 03-30 well controlled Continue holding home lisinopril, stop verapamil in setting of orthostatic hypotension We may need to let BP run a bit higher to avoid her becoming dizzy 04-01 BP 169/87 overnight (4) Liver mass: CT with 2.6cm liver mass of right hepatic lobe concerning for neoplasm consulting GI for further eval (5) Laceration of scalp: Sutured and stapled in the ED. stable. -Continue oxycodone as needed for pain as she is having headache Will need rochelle removed around 04/02 Site looks well healed. Will need to remove before she goes to rehab Friday (6) Atrial fibrillation: Is in a sinus/paced rhythm here with A. fib at times, rates high at times -Xarelto held on admission but restarted March 27. -stop verapamil due to potential for side effects, start low dose dilt 30 TID -Continue amiodarone 200 mg once daily -Continue telemetry monitoring (7) Diabetes mellitus type 2, uncontrolled: ADA diet. Basal insulin coverage. Sliding scale coverage. (8) Hypothyroidism: TSH was normal range in 12/2019. - Continue home levothyroxine 37.5 mcg daily (9) Cardiac pacemaker: Placed for tachybradycardia syndrome (10) Aortic valve stenosis: Noted to be mild on echocardiogram from 12/2019 Follow with cardiology (11) Obstructive sleep apnea: Does not have CPAP, has declined repeat sleep study as per PCP notes (12) Breast cancer: Continue anastrozole (13) Gastroesophageal reflux disease: No acute issues Continue PPI (14) Hypercholesterolemia: Continue statin (15) Peripheral neuropathy: Continue Cymbalta and Lyrica (16) DVT prophylaxis: Xarelto restarted March 27. Disposition: going to [facility] 04-03 Admission and Anticipated Discharge Date Admission Date: March 24, 2020 Subjective Patient still endorses dizziness when standing, even if she takes her time getting up. She nearly passes out. Endorses some back pain. No black or tarry stools. No bright red bleeding. Feels very fatigued, says she just wants to sleep. Agreeable to receiving another unit of PRBC. States lyrica was started for her leg symptoms, but has not really worked. Denies neuropathy. Open to reducing her dose if it will improve her dizziness. Review of Systems Constitutional: no fever, no chills, no fatigue, no weakness, no anorexia, no weight loss and no weight gain Ear, Nose, Mouth, Throat: no nasal congestion, no sore throat and no dysphagia Respiratory: no cough and no dyspnea Cardiovascular: no chest pain, no dyspnea on exertion, no orthopnea and no palpitations Gastrointestinal: no abdominal pain, no nausea, no vomiting, no hematemesis, no dysphagia, no constipation, no diarrhea/loose stools, no blood in stools and no melena Genitourinary: no dysuria, no urinary frequency, no hematuria and no flank pain Musculoskeletal: no back pain, no joint pain, no myalgia and no muscle weakness Integumentary: no rash, no lesions, no skin ulcer, no erythema, no dry skin and no pruritus Neurologic: no falls, no localized weakness, no generalized weakness, no numbness, no paresthesia, no tremor(s) and no headache(s) dizzy when standing Psychiatric: no depression, no suicidal ideation, no homicidal ideation and no anxiety Endocrine: no cold intolerance and no heat intolerance Hematologic / Lymphatic: no easy bleeding and no easy bruising Physical Exam Constitutional: well developed and well nourished; no acute distress Eyes: PERRL, conjunctivae normal, anicteric sclerae ENMT: Mouth: oral mucous membranes not dry Respiratory: normal respiratory effort; no respiratory distress and no labored breathing Auscultation: lungs clear to auscultation bilaterally; no crackles, no rales, no rhonchi and no wheezes Cardiovascular: Rate/Rhythm: regular rate and regular rhythm Heart Sounds: no murmur and no cardiac rub Vessels: normal peripheral pulses and radial pulses present; no JVD Extremities: no edema Gastrointestinal (Abdomen): Inspection/Auscultation: abdomen normal to inspection and normal bowel sounds; abdomen not distended Percussion/Palpation: abdomen soft; abdomen nontender, no guarding, abdomen not rigid and no hepatosplenomegaly Musculoskeletal: Head/Neck/Chest: normocephalic and head atraumatic Spine: no cervical spinal tenderness, no cervical muscular tenderness, no thoracic spinal tenderness and no lumbar spinal tenderness Skin: laceration on posterior scalp with rochelle clean dry intact, no bleeding Neurologic: CN's II-XI intact bilaterally and moves all extremities Motor/Sensory: no tremor and no sensory deficit Psychiatric: Orientation: alert, oriented to person, oriented to place and oriented to time Apperance: appropriately groomed; not disheveled Affect: euthymic affect; no anxious affect and no tearful affect Genitourinary: no CVA tenderness Results & Data Results & Data ([facility]) Vital Signs (Past 12 Hours) Vital Signs Temp Pulse Pulse Resp BP Pulse Ox 04/01/20 08:09 36.8 C 88 18 146/75 H 95 04/01/20 03:52 36.8 C 91 H 20 169/81 H 91 04/01/20 00:04 103 H 03/31/20 22:00 37.3 C 108 H 16 169/87 H 90 Laboratory Results Abnormal lab results 03/31/20 03/31/20 04/01/20 Range/Units 17:08 20:05 06:40 WBC 3.25 L (4.8-10.8) K/uL RBC 2.75 L (4.2-5.4) M/uL Hgb 8.0 L (12.0-16.0) g/dL Hct 25.2 L (37-47) % MCHC 31.7 L (32-36) g/dL RDW Std Deviation 56.1 H (36.4-46.3) fL RDW Coeff of Thompson 17.4 H (11.5-14.5) % Chloride (98-107) mmol/L Anion Gap (3-11) Glucose (70-99) mg/dl POC Glucose 126 H 137 H (70-99) mg/dl 04/01/20 04/01/20 04/01/20 Range/Units 06:40 07:31 11:55 WBC (4.8-10.8) K/uL RBC (4.2-5.4) M/uL Hgb (12.0-16.0) g/dL Hct (37-47) % MCHC (32-36) g/dL RDW Std Deviation (36.4-46.3) fL RDW Coeff of Thompson (11.5-14.5) % Chloride 108 H (98-107) mmol/L Anion Gap 2.0 L (3-11) Glucose 114 H (70-99) mg/dl POC Glucose 125 H 209 H (70-99) mg/dl Medications Administered Current Inpatient Medications Acetaminophen (Acetaminophen 500 Mg Tab) 500 mg PO Q6H PRN PRN Reason: Pain Stop: 04/23/20 20:40 Last Admin: 04/01/20 12:32 Dose: 500 mg Documented by: Amiodarone HCl (Amiodarone 200 Mg Tab) 200 mg PO DAILY RUTH Stop: 04/24/20 08:59 Last Admin: 04/01/20 09:24 Dose: 200 mg Documented by: Anastrozole (Anastrozole 1 Mg Tab) 1 mg PO QAM RUTH Stop: 04/24/20 08:59 Last Admin: 04/01/20 09:24 Dose: 1 mg Documented by: Atorvastatin Calcium (Atorvastatin 40 Mg Tab) 40 mg PO HS RUTH Stop: 04/23/20 20:59 Last Admin: 03/31/20 20:25 Dose: 40 mg Documented by: Dextrose (Dextrose 50% 50 Ml Syringe) 25 - 50 ml IV UD PRN; Protocol PRN Reason: Hypoglycemia Protocol Stop: 04/23/20 20:40 Diltiazem HCl (Diltiazem Hcl 30 Mg Tab) 30 mg PO TID [facility] Stop: 04/28/20 20:59 Last Admin: 04/01/20 09:25 Dose: 30 mg Documented by: Duloxetine HCl (Duloxetine Hcl 60 Mg Cap) 60 mg PO QAM [facility] Stop: 04/24/20 08:59 Last Admin: 04/01/20 09:23 Dose: 60 mg Documented by: Glucagon (Glucagon For Inj 1 Mg Vial) 1 mg SQ UD PRN; Protocol PRN Reason: Hypoglycemia Protocol Stop: 04/23/20 20:40 Glucose (Glucose 10 Tabs/Tube) 4 - 8 tabs PO UD PRN; Protocol PRN Reason: Hypoglycemia Protocol Stop: 04/23/20 20:40 Glucose (Glucose 40% Gel 15 Gm Tube) 15 - 30 gm PO UD PRN; Protocol PRN Reason: Hypoglycemia Protocol Stop: 04/23/20 20:40 Sodium Chloride (Nss) 250 mls @ 15 mls/hr IV .[id number] PRN PRN Reason: For Transfusion Stop: 04/01/20 23:41 Insulin Aspart (Insulin Aspart 100 Units/Ml 3 Ml Pen) 0 units SC ACHS [facility] Stop: 04/23/20 20:59 Last Admin: 04/01/20 12:27 Dose: 10 units Documented by: Insulin Glargine (Insulin Glargine Solostar 100 Units/Ml 3 Ml Pen) 30 units SQ HS [facility] Stop: 04/25/20 20:59 Last Admin: 03/31/20 20:24 Dose: 30 units Documented by: Levothyroxine Sodium (Levothyroxine Sodium 75 Mcg Tablet) 37.[facility]cg [facility] [place] Stop: 04/24/20 08:59 Last Admin: 04/01/20 09:21 Dose: 37.5 mcg Documented by: Miscellaneous (Carbohydrates For Hypoglycemia ) 15 - 30 gm PO UD PRN PRN Reason: Hypoglycemia Protocol Stop: 04/23/20 20:40 Ondansetron HCl (Ondansetron Inj 2 Mg/Ml 2 Ml Vial) 4 mg IV Q4H PRN PRN Reason: Nausea Stop: 04/23/20 20:40 Oxycodone/Acetaminophen (Oxycodone/Acetaminophen 5mg/325mg Tab) 1 tab PO Q4H PRN PRN Reason: moderate pain (5-7) Stop: 04/08/20 11:38 Last Admin: 03/30/20 17:18 Dose: 1 tab Documented by: Oxycodone/Acetaminophen (Oxycodone/Acetaminophen 5mg/325mg Tab) 2 tab PO Q4H PRN PRN Reason: severe pain scale 8-10 Stop: 04/09/20 13:39 Last Admin: 04/01/20 09:23 Dose: 2 tab Documented by: Pantoprazole Sodium (Pantoprazole 40 Mg Tab) 40 mg PO DAILY [facility] Stop: 04/24/20 08:59 Last Admin: 04/01/20 09:22 Dose: 40 mg Documented by: Pregabalin (Pregabalin 75 Mg Cap) 75 mg PO BID [facility] Stop: 04/30/20 20:59 Last Admin: 04/01/20 09:29 Dose: 75 mg Documented by: Rivaroxaban (Rivaroxaban 20 Mg Tab) 20 mg PO QDD [facility] Stop: 04/26/20 16:29 Last Admin: 03/31/20 16:18 Dose: 20 mg Documented by: Senna/Docusate Sodium (Docusate Sodium/Senna 50/8.6mg Tab) 1 tab PO QAM [facility] Stop: 04/30/20 15:29 Last Admin: 04/01/20 09:24 Dose: 1 tab Documented by: PG Care Time/CCT Total # of Minutes Spent Total Time Spent with Patient: Total time spent is greater than 50% in coordination of care (as documented) at patient's floor/unit and/or counseling patient: Coding Level of Care Code 04793 Subseq Hosp Care Lvl 3 Diagnoses Acute blood loss anemia D62 Orthostasis I95.1 Supine hypertension I10 Liver mass R16.0 Laceration of scalp S01.01XA Encounter type: initial encounter Atrial fibrillation I48.91 Atrial fibrillation type: unspecified Diabetes mellitus type 2, uncontrolled E11.65 Glycemic state: with hyperglycemia Hypothyroidism E03.9 Hypothyroidism type: unspecified Cardiac pacemaker Z95.0 Aortic valve stenosis I35.0 Cardiac valve disease etiology: etiology unspecified Obstructive sleep apnea G47.33 Breast cancer C50.919 Breast location: unspecified site of breast Estrogen receptor status: unspecified Laterality: unspecified laterality Patient sex: female Gastroesophageal reflux disease K21.9 Esophagitis presence: esophagitis presence not specified Hypercholesterolemia E78.00 Peripheral neuropathy G62.9 Peripheral neuropathy type: polyneuropathy, unspecified DVT prophylaxis Z29.9 (1) Aortic valve stenosis Cardiac valve disease etiology: etiology unspecified Qualified Code(s): I35.0 - Nonrheumatic aortic (valve) stenosis (2) Atrial fibrillation Atrial fibrillation type: unspecified Qualified Code(s): I48.91 - Unspecified atrial fibrillation (3) Hypothyroidism Hypothyroidism type: unspecified Qualified Code(s): E03.9 - Hypothyroidism, unspecified (4) Diabetes mellitus type 2, uncontrolled Glycemic state: with hyperglycemia Qualified Code(s): E11.65 - Type 2 diabetes mellitus with hyperglycemia (5) Peripheral neuropathy Peripheral neuropathy type: polyneuropathy, unspecified Qualified Code(s): G62.9 - Polyneuropathy, unspecified (6) Breast cancer Breast location: unspecified site of breast Estrogen receptor status: unspecified Laterality: unspecified laterality Patient sex: female Qualified Code(s): C50.919 - Malignant neoplasm of unspecified site of unspecified female breast (7) Gastroesophageal reflux disease Esophagitis presence: esophagitis presence not specified Qualified Code(s): K21.9 - Gastro-esophageal reflux disease without esophagitis (8) Laceration of scalp Encounter type: initial encounter Qualified Code(s): S01.01XA - Laceration without foreign body of scalp, initial encounter
[2020-04-01] MEDS: LEVOTHYROXINE SODIUM 75 MCG TABLET PO SCH (09:21)
[2020-04-01] MEDS: PANTOprazole 40 MG TAB PO SCH (09:22)
[2020-04-01] MEDS: DULoxetine HCL 60 MG CAP PO SCH (09:23)
[2020-04-01] MEDS: AMIODARONE 200 MG TAB PO SCH (09:24)
[2020-04-01] MEDS: DOCUSATE SODIUM/SENNA 50/8.6MG TAB PO SCH (09:24)
[2020-04-01] MEDS: ANASTROZOLE 1 MG TAB PO SCH (09:24)
[2020-04-01] MEDS: dilTIAZem HCL 30 MG TAB PO SCH ×3 (09:25→20:15)
[2020-04-01] MEDS: INSULIN ASPART 100 UNITS/ML 3 ML PEN SC SCH ×4 (09:26→20:24)
[2020-04-01] MEDS: PREGABALIN 75 MG CAP PO SCH ×2 (09:29→20:12)
[2020-04-01] MEDS: ACETAMINOPHEN 500 MG TAB PO PRN (12:32)
[2020-04-01] MEDS ORDERED: SODIUM CHLORIDE 0.9% 250 ML IV PRN (13:39)
[2020-04-01] MEDS ORDERED: IOVERSOL 100ml IV ONE (13:57)
--- NOTE | 2020-04-01 14:10 | CT Scan Report ---
ABDOMEN AND PELVIS CT WITH IV CONTRAST CT DOSE: 1360.27 mGy.cm HISTORY: anemia, rule out retroperitoneal hematoma, other bleed TECHNIQUE: Multiaxial CT images of the abdomen and pelvis were performed following the use of intrave nous contrast. A dose lowering technique was utilized adhering to the principles of ALARA. COMPARISON STUDY: Abdomen and pelvis CT 03/02/2020 FINDINGS: The lung bases are clear. No pneumoperitoneum. No pneumatosis. There are bilateral total hi p arthroplasties. Lumbar spine posterior fusion hardware. Pacemaker wires are noted. Redemonstration of the 2.6 cm ill-defined right hepatic lobe lesion. This similar to the prior study. Prior cholecyst ectomy with a gallbladder remnant containing a large gallstone. This remains unchanged. The spleen, a drenal glands, and pancreas are unremarkable. Bilateral nephrolithiasis. No ureteral stones. No hydro nephrosis. A few subcentimeter hypodense renal lesions are technically too small to characterize. Pos toperative changes again noted within the stomach. No retroperitoneal hematoma or retroperitoneal lym phadenopathy. Normal caliber abdominal aorta. Evidence for prior midline incision. Mildly distended l oop of small bowel within the right lower quadrant at the level of anastomosis. This is likely within the range normal limits. The bladder is not well-distended due to the metallic artifact from the hip prostheses. No definite bowel wall thickening or obstruction. IMPRESSION: 1. No evidence for retroperitoneal hematoma. 2. Postoperative changes as described above. 3. Redemonstration of the 2.6 cm ill-defined hypodense lesion within the right hepatic lobe. This is concerning for neoplasm. 4. Suspected gallbladder remnant which contains a gallstone. This remains unchanged. 5. Bilateral nephrolithiasis. No hydronephrosis. ACT 112: Negative or not required by law. Electronically signed by: Shan Hollingsworth M.D. 04/01/2020 2:09 PM
[2020-04-01] MEDS: RIVAROXABAN 20 MG TAB PO SCH (17:20)
[2020-04-01] MEDS: ATORVASTATIN 40 MG TAB PO SCH (20:14)
[2020-04-01] MEDS: INSULIN GLARGINE SOLOSTAR 100 UNITS/ML 3 ML PEN SQ SCH (20:26)
[2020-04-02] MEDS: oxyCODONE/ACETAMINOPHEN 5mg/325mg TAB PO PRN ×5 (00:36→21:23)
[2020-04-02 06:35] LABS: Hematocrit (blood only) 28.7 % (37-47); Hemoglobin 9.1 g/dL (12.0-16.0); Mean Corpuscular Hemoglobin 28.7 pg (25-34); Mean Corpuscular Hgb Conc 31.7 g/dL (32-36); Mean Corpuscular Volume 90.5 fL (80-100); Mean Platelet Volume 10.8 fL (7.4-10.4); Platelet Count 208 K/uL (130-400); RDW Coefficient of Variation 16.7 % (11.5-14.5); RDW Standard Deviation 54.1 fL (36.4-46.3); Red Blood Count 3.17 M/uL (4.2-5.4); White Blood Count 4.76 K/uL (4.8-10.8)
[2020-04-02 07:12] LABS: BUN Creatinine Ratio 23.6 (10-20); Calcium 8.2 mg/dl (8.5-10.1); Creatinine Clr Calc Pharmacy 96.8 ml/min; Est GFR (African American) 106.7; Est GFR (Non-African American) 92.1; Magnesium 2.1 mg/dl (1.8-2.4); Phosphorus 3.7 mg/dl (2.5-4.9); Potassium 3.7 mmol/L (3.5-5.1)
--- NOTE | 2020-04-02 08:04 | Hospitalist Progress Note ---
Date of Service April 02, 2020 Assessment & Plan (1) Orthostasis: Dizziness when she bent over and then hit her head when she stood back up causing laceration with acute blood loss anemia No loss of consciousness or other symptoms Orthostatics positive on admit On 03-29 still orthostatic with BP 129/78 lying and 89/54 standing On 03-30 BP 131/78 lying and 95/65 standing stop lisinopril, stop verapamil lyrica has been known to cause orthostatic hypotension, consider modifying could be related to anemia, but patient endorses orthostasis prior to admit to hospital gave 500ml NS bolus 03-31 BP 129/73 lying and 106/56 standing decreased lyrica to half home dose 04-01 Still symptomatic from orthostasis. Giving 1 unit PRBC. 04-02 BP 139/81 lying and BP 123/70 standing -- Much improved! (2) Atrial fibrillation: Is in a sinus/paced rhythm here with A. fib at times, rates high at times -Xarelto held on admission but restarted March 27. 03-29 Orthostatic stop verapamil due to potential for side effects start low dose dilt 30 TID continue amiodarone 200 mg once daily continue telemetry monitoring 04-02 Stop dilt IR 30 TID after last dose tonight, start dilt ER 120mg tomorrow morning (3) Acute blood loss anemia: Baseline Hg 11 Hg 9.7 --> 7.1 Received 2 units packed red blood cells After PRBC, hemoglobin down slightly 9.2 --> 8.6 --> 8.2 Cont daily CBC 03-24 Blood loss related to scalp laceration -- profuse bleeding requiring stitches and rochelle. Xarelto held 03-27 Xarelto restarted 03-31 Hg 7.7, checking hemoccult 11-14 Hg 8, patient still orthostatic and fatigued. Checked CT a/p -- no active hemorrhage. Giving 1 unit PRBC. 04-02 Hg 9.1 (4) Liver mass: CT with 2.6cm liver mass of right hepatic lobe concerning for neoplasm 04-02 Discussed with patient's daughter They knew about the liver mass Dr. Lovett was in the process of obtaining an outpatient biopsy Patient and family strongly prefer to stay in hospital in order to get biopsy this week Personally discussed with Dr. Rojas GI Need xarelto held 3 days prior to biopsy Holding xarelto 04-02, 04-03 and 04-04 Pt can get liver biopsy on 04-05 (5) Laceration of scalp: 03-24 Sutured and stapled in the ED 04-01 Site looks well healed 04-03 remove rochelle (6) Peripheral neuropathy: Continue Cymbalta Decreased lyrica to half dose in order to alleviate orthostatic hypotension, a known side effect of lyrica (7) Diabetes mellitus type 2, uncontrolled: ADA diet. Basal insulin coverage. Sliding scale coverage. (8) Supine hypertension: 03-26 Blood pressures going up 172/85 03-30 well controlled Continue holding home lisinopril, stop verapamil in setting of orthostatic hypotension 04-01 BP 169/87 overnight We need to let BP run a bit higher to avoid her becoming dizzy (9) Hypothyroidism: TSH was normal range in 12/2019. - Continue home levothyroxine 37.5 mcg daily (10) Cardiac pacemaker: Placed for tachybradycardia syndrome (11) Aortic valve stenosis: Noted to be mild on echocardiogram from 12/2019 Follow with cardiology (12) Obstructive sleep apnea: Does not have CPAP, has declined repeat sleep study as per PCP notes (13) Breast cancer: Continue anastrozole (14) Gastroesophageal reflux disease: No acute issues Continue PPI (15) Hypercholesterolemia: Continue statin (16) DVT prophylaxis: Xarelto restarted March 27. Disposition: going to 04-03 Admission and Anticipated Discharge Date Admission Date: March 24, 2020 Subjective Patient weak, fatigued, dizzy yesterday. Gave another unit PRBC yesterday. Patient very upset this morning -- complaining of sharp pain in her neck radiating to her head. Pain not new -- has been present since she fell. Patient crying. Still complaining of dizziness when standing, though her orthostatics were normal today, s/p transfusion. Not passing out. Patient is sad, misses seeing her family. Discussed with patient's daughter on the phone -- they are going to try to video chat with patient later today. Review of Systems Constitutional: no fever, no chills, no fatigue, no weakness, no anorexia, no weight loss and no weight gain Ear, Nose, Mouth, Throat: no nasal congestion, no sore throat and no dysphagia Respiratory: no cough and no dyspnea Cardiovascular: no chest pain, no dyspnea on exertion, no orthopnea and no palpitations Gastrointestinal: no abdominal pain, no nausea, no vomiting, no hematemesis, no dysphagia, no constipation, no diarrhea/loose stools, no blood in stools and no melena Genitourinary: no dysuria, no urinary frequency, no hematuria and no flank pain Musculoskeletal: no back pain, no joint pain, no myalgia and no muscle weakness Integumentary: no rash, no lesions, no skin ulcer, no erythema, no dry skin and no pruritus Neurologic: no falls, no localized weakness, no generalized weakness, no numbness, no paresthesia, no tremor(s) and no headache(s) dizzy when standing Psychiatric: + anxiety; no depression, no suicidal ideation and no homicidal ideation Endocrine: no cold intolerance and no heat intolerance Hematologic / Lymphatic: no easy bleeding and no easy bruising Physical Exam Constitutional: well developed and well nourished; no acute distress Eyes: PERRL, conjunctivae normal, anicteric sclerae ENMT: Mouth: oral mucous membranes not dry Respiratory: normal respiratory effort; no respiratory distress and no labored breathing Auscultation: lungs clear to auscultation bilaterally; no crackles, no rales, no rhonchi and no wheezes Cardiovascular: Rate/Rhythm: regular rate and regular rhythm Heart Sounds: no murmur and no cardiac rub Vessels: normal peripheral pulses and radial pulses present; no JVD Extremities: no edema Gastrointestinal (Abdomen): Inspection/Auscultation: abdomen normal to inspection and normal bowel sounds; abdomen not distended Percussion/Palpation: abdomen soft; abdomen nontender, no guarding, abdomen not rigid and no hepatosplenomegaly Musculoskeletal: Head/Neck/Chest: normocephalic and head atraumatic Spine: no cervical spinal tenderness, no cervical muscular tenderness, no thoracic spinal tenderness and no lumbar spinal tenderness Skin: no rashes, warm and dry + crusts (posterior scalp vertical laceration with rochelle, clean dry intact) and + ecchymosis (left eye and face with ecchymosis related to recent ophtho procedure) Neurologic: CN's II-XI intact bilaterally and moves all extremities Motor/Sensory: no tremor and no sensory deficit Psychiatric: Orientation: alert, oriented to person, oriented to place and oriented to time Apperance: appropriately groomed; not disheveled Affect: + anxious affect and + tearful affect; + affect not euthymic Genitourinary: no CVA tenderness Results & Data Results & Data ([facility]) Vital Signs (Past 12 Hours) Vital Signs Temp Pulse Pulse Resp BP Pulse Ox 04/02/20 07:15 36.8 C 69 18 127/88 94 04/02/20 07:00 103 H 04/02/20 04:00 36.9 C 72 20 126/85 94 04/01/20 23:56 107 H 04/01/20 22:00 36.7 C 79 20 160/79 H 96 Laboratory Results Abnormal lab results 04/01/20 04/01/20 04/01/20 Range/Units 11:55 14:21 16:24 WBC (4.8-10.8) K/uL RBC (4.2-5.4) M/uL Hgb (12.0-16.0) g/dL Hct (37-47) % MCHC (32-36) g/dL RDW Std Deviation (36.4-46.3) fL RDW Coeff of Thompson (11.5-14.5) % MPV (7.4-10.4) fL Creatinine (0.6-1.2) mg/dl BUN/Creatinine Ratio (10-20) Glucose (70-99) mg/dl POC Glucose 209 H 117 H (70-99) mg/dl Calcium (8.5-10.1) mg/dl Crossmatch See Detail 04/02/20 04/02/20 04/02/20 Range/Units 05:56 05:56 07:37 WBC 4.76 L (4.8-10.8) K/uL RBC 3.17 L (4.2-5.4) M/uL Hgb 9.1 L (12.0-16.0) g/dL Hct 28.7 L (37-47) % MCHC 31.7 L (32-36) g/dL RDW Std Deviation 54.1 H (36.4-46.3) fL RDW Coeff of Thompson 16.7 H (11.5-14.5) % MPV 10.8 H (7.4-10.4) fL Creatinine 0.58 L (0.6-1.2) mg/dl BUN/Creatinine Ratio 23.6 H (10-20) Glucose 138 H (70-99) mg/dl POC Glucose 137 H (70-99) mg/dl Calcium 8.2 L (8.5-10.1) mg/dl Crossmatch Medications Administered Current Inpatient Medications Acetaminophen (Acetaminophen 500 Mg Tab) 500 mg PO Q6H PRN PRN Reason: Pain Stop: 04/23/20 20:40 Last Admin: 04/01/20 12:32 Dose: 500 mg Documented by: Amiodarone HCl (Amiodarone 200 Mg Tab) 200 mg PO DAILY [facility] Stop: 04/24/20 08:59 Last Admin: 04/01/20 09:24 Dose: 200 mg Documented by: Anastrozole (Anastrozole 1 Mg Tab) 1 mg PO QAM [facility] Stop: 04/24/20 08:59 Last Admin: 04/01/20 09:24 Dose: 1 mg Documented by: Atorvastatin Calcium (Atorvastatin 40 Mg Tab) 40 mg PO HS [facility] Stop: 04/23/20 20:59 Last Admin: 04/01/20 20:14 Dose: 40 mg Documented by: Dextrose (Dextrose 50% 50 Ml Syringe) 25 - 50 ml IV UD PRN; Protocol PRN Reason: Hypoglycemia Protocol Stop: 04/23/20 20:40 Diclofenac Sodium (Diclofenac Sod 1% Gel 100 Gm Tube) 2 gm EXT QID PRN PRN Reason: Mild Pain Stop: 05/02/20 08:59 Diltiazem HCl (Diltiazem Hcl 30 Mg Tab) 30 mg PO TID [facility] Stop: 04/28/20 20:59 Last Admin: 04/01/20 20:15 Dose: 30 mg Documented by: Duloxetine HCl (Duloxetine Hcl 60 Mg Cap) 60 mg PO QAM [facility] Stop: 04/24/20 08:59 Last Admin: 04/01/20 09:23 Dose: 60 mg Documented by: Glucagon (Glucagon For Inj 1 Mg Vial) 1 mg SQ UD PRN; Protocol PRN Reason: Hypoglycemia Protocol Stop: 04/23/20 20:40 Glucose (Glucose 10 Tabs/Tube) 4 - 8 tabs PO UD PRN; Protocol PRN Reason: Hypoglycemia Protocol Stop: 04/23/20 20:40 Glucose (Glucose 40% Gel 15 Gm Tube) 15 - 30 gm PO UD PRN; Protocol PRN Reason: Hypoglycemia Protocol Stop: 04/23/20 20:40 Insulin Aspart (Insulin Aspart 100 Units/Ml 3 Ml Pen) 0 units SC ACHS [facility] Stop: 04/23/20 20:59 Last Admin: 04/01/20 20:24 Dose: Not Given Documented by: Insulin Glargine (Insulin Glargine Solostar 100 Units/Ml 3 Ml Pen) 30 units SQ HS [facility] Stop: 04/25/20 20:59 Last Admin: 04/01/20 20:26 Dose: 30 units Documented by: Levothyroxine Sodium (Levothyroxine Sodium 75 Mcg Tablet) 37.5 mcg PO QAM [facility] Stop: 04/24/20 08:59 Last Admin: 04/01/20 09:21 Dose: 37.5 mcg Documented by: Miscellaneous (Carbohydrates For Hypoglycemia ) 15 - 30 gm PO UD PRN PRN Reason: Hypoglycemia Protocol Stop: 04/23/20 20:40 Ondansetron HCl (Ondansetron Inj 2 Mg/Ml 2 Ml Vial) 4 mg IV Q4H PRN PRN Reason: Nausea Stop: 04/23/20 20:40 Oxycodone/Acetaminophen (Oxycodone/Acetaminophen 5mg/325mg Tab) 1 tab PO Q4H PRN PRN Reason: moderate pain (5-7) Stop: 04/08/20 11:38 Last Admin: 03/30/20 17:18 Dose: 1 tab Documented by: Oxycodone/Acetaminophen (Oxycodone/Acetaminophen 5mg/325mg Tab) 2 tab PO Q4H PRN PRN Reason: severe pain scale 8-10 Stop: 04/09/20 13:39 Last Admin: 04/02/20 04:37 Dose: 2 tab Documented by: Pantoprazole Sodium (Pantoprazole 40 Mg Tab) 40 mg PO DAILY [facility] Stop: 04/24/20 08:59 Last Admin: 04/01/20 09:22 Dose: 40 mg Documented by: Pregabalin (Pregabalin 75 Mg Cap) 75 mg PO BID [facility] Stop: 04/30/20 20:59 Last Admin: 04/01/20 20:12 Dose: 75 mg Documented by: Rivaroxaban (Rivaroxaban 20 Mg Tab) 20 mg PO QDD [facility] Stop: 04/26/20 16:29 Last Admin: 04/01/20 17:20 Dose: 20 mg Documented by: Senna/Docusate Sodium (Docusate Sodium/Senna 50/8.6mg Tab) 1 tab PO QAM [facility] Stop: 04/30/20 15:29 Last Admin: 04/01/20 09:24 Dose: 1 tab Documented by: Trolamine Salicylate (Trolamine Salicylate 10% Crm 255 Appln/85 Gm Tube) 1 appln EXT TID PRN PRN Reason: Mild Pain Stop: 05/02/20 04:51 PG Care Time/CCT Total # of Minutes Spent Total Time Spent with Patient: Total time spent is greater than 50% in coordination of care (as documented) at patient's floor/unit and/or counseling patient: Coding Level of Care Code 81652 Subseq Hosp Care Lvl 3 Diagnoses Orthostasis I95.1 Atrial fibrillation I48.91 Atrial fibrillation type: unspecified Acute blood loss anemia D62 Liver mass R16.0 Laceration of scalp S01.01XA Encounter type: initial encounter Peripheral neuropathy G62.9 Peripheral neuropathy type: polyneuropathy, unspecified Diabetes mellitus type 2, uncontrolled E11.65 Glycemic state: with hyperglycemia Supine hypertension I10 Hypothyroidism E03.9 Hypothyroidism type: unspecified Cardiac pacemaker Z95.0 Aortic valve stenosis I35.0 Cardiac valve disease etiology: etiology unspecified Obstructive sleep apnea G47.33 Breast cancer C50.919 Breast location: unspecified site of breast Estrogen receptor status: unspecified Laterality: unspecified laterality Patient sex: female Gastroesophageal reflux disease K21.9 Esophagitis presence: esophagitis presence not specified Hypercholesterolemia E78.00 DVT prophylaxis Z29.9 (1) Aortic valve stenosis Cardiac valve disease etiology: etiology unspecified Qualified Code(s): I35.0 - Nonrheumatic aortic (valve) stenosis (2) Atrial fibrillation Atrial fibrillation type: unspecified Qualified Code(s): I48.91 - Unspecified atrial fibrillation (3) Hypothyroidism Hypothyroidism type: unspecified Qualified Code(s): E03.9 - Hypothyroidism, unspecified (4) Diabetes mellitus type 2, uncontrolled Glycemic state: with hyperglycemia Qualified Code(s): E11.65 - Type 2 diabetes mellitus with hyperglycemia (5) Peripheral neuropathy Peripheral neuropathy type: polyneuropathy, unspecified Qualified Code(s): G62.9 - Polyneuropathy, unspecified (6) Breast cancer Breast location: unspecified site of breast Estrogen receptor status: unspecified Laterality: unspecified laterality Patient sex: female Qualified Code(s): C50.919 - Malignant neoplasm of unspecified site of unspecified female breast (7) Gastroesophageal reflux disease Esophagitis presence: esophagitis presence not specified Qualified Code(s): K21.9 - Gastro-esophageal reflux disease without esophagitis (8) Laceration of scalp Encounter type: initial encounter Qualified Code(s): S01.01XA - Laceration without foreign body of scalp, initial encounter
[2020-04-02] MEDS: dilTIAZem HCL 30 MG TAB PO SCH ×3 (09:00→20:10)
[2020-04-02] MEDS: LEVOTHYROXINE SODIUM 75 MCG TABLET PO SCH (09:01)
[2020-04-02] MEDS: ANASTROZOLE 1 MG TAB PO SCH (09:01)
[2020-04-02] MEDS: AMIODARONE 200 MG TAB PO SCH (09:02)
[2020-04-02] MEDS: DOCUSATE SODIUM/SENNA 50/8.6MG TAB PO SCH (09:02)
[2020-04-02] MEDS: PANTOprazole 40 MG TAB PO SCH (09:03)
[2020-04-02] MEDS: PREGABALIN 75 MG CAP PO SCH ×2 (09:03→20:10)
[2020-04-02] MEDS: DULoxetine HCL 60 MG CAP PO SCH (09:03)
[2020-04-02] MEDS: DICLOFENAC SOD 1% GEL 100 GM TUBE EXT PRN ×2 (09:06→20:19)
[2020-04-02] MEDS: TROLAMINE SALICYLATE 10% CRM 255 APPLN/85 GM TUBE EXT PRN (09:06)
[2020-04-02] MEDS: INSULIN ASPART 100 UNITS/ML 3 ML PEN SC SCH ×4 (09:08→20:23)
[2020-04-02] MEDS ORDERED: traMADol HCL 50 MG TABLET PO STA (10:20)
--- NOTE | 2020-04-02 14:09 | Gastrointestinal Consultation ---
Date of Consultation April 02, 2020 Assessment & Plan (1) Liver mass: Discussed case with Hospitalist Dr. Stiles Plan to hold Xarelto for 3 days Recommend liver biopsy for further evaluation of liver mass Dr. Stiles and patient agree with plan Will discuss with Radiology tomorrow History of Present Illness Reason for Consultation: Liver mass on CT imaging Attending Physician: Diana Stiles MD History of Present Illness I was asked to see Faith Solorzano today for consultation secondary to Right sided mass on the liver found on CT imaging. She was admitted initially after falling and hitting her head requiring multiple sutures/rochelle. During the course of her hospitalization, her H/H continued to fall. She is on Xarelto therapy chronically for A-fib, and decision was made to check a CT scan of the abdomen for evaluation of retroperitoneal bleeding. The scan showed no evidence of retroperitoneal bleeding, but did show a mass, which appeared malignant. Of note, she did undergo a colonoscopy in 2016, which showed no polyps. At the time I saw the patient this morning, she continues to complain of head and neck pain from her fall. She denies any abdominal pain, fevers, chills, nausea, vomiting, diarrhea, hematemesis, melena or hematochezia. She states that she also has a lung nodule seen on outpatient imaging, but has not had a workup as of this time. She has no further complaints. Allergies Allergy/AdvReac Type Severity Reaction Status Date / Time meperidine [From Demerol] AdvReac Mild Not Verified 03/24/20 17:52 tolerated. venlafaxine [From Effexor] AdvReac Mild Not Verified 03/24/20 17:52 tolerated metformin AdvReac Unknown INSOMNIA Verified 03/24/20 17:52 amoxicillin [From Augmentin] AdvReac Unknown Verified 03/24/20 17:52 clavulanic acid AdvReac Unknown Verified 03/24/20 17:52 [From Augmentin] Home Medications Home Medications Medication Instructions Recorded Confirmed Type cyanocobalamin (vitamin B-12) 1,000 mcg IM MONTHLY ea 02/04/18 03/24/20 History 1,000 mcg/mL injection kit multivitamin 1 tab PO QAM 02/04/18 03/24/20 History blood-glucose meter #1 ea 12/24/18 03/22/20 History glipizide 10 mg tablet 10 mg PO BID #180 tab 04/20/19 03/24/20 Rx blood-glucose meter ea 05/04/19 03/22/20 History pen needle, diabetic 32 gauge x ea 05/04/19 03/24/20 History 5/32" Xarelto 20 mg PO DAILY 07/29/19 03/24/20 History acetaminophen [Tylenol Extra 500 mg PO Q6H PRN 07/29/19 03/24/20 History Strength] anastrozole 1 mg PO QAM 07/29/19 03/24/20 History cholecalciferol (vitamin D3) 1,000 unit PO QAM 07/29/19 03/24/20 History [Vitamin D3] dextromethorphan polistirex 10 ml PO Q12H PRN 07/29/19 03/24/20 History [Delsym 12 hour] blood sugar diagnostic #100 ea 09/06/19 03/22/20 Rx pantoprazole 40 mg tablet,delayed 40 mg PO DAILY #90 tab 09/24/19 03/24/20 Rx release duloxetine 60 mg capsule,delayed 60 mg PO QAM #90 cap 10/12/19 03/24/20 Rx release lisinopril 10 mg tablet 10 mg PO QAM #90 tab 10/14/19 03/24/20 Rx levothyroxine 25 mcg tablet 37.5 mcg PO QAM #135 tab 11/02/19 03/24/20 Rx atorvastatin 40 mg tablet 40 mg PO HS #90 tab 11/29/19 03/24/20 Rx dulaglutide 0.75 mg/0.5 mL 0.75 mg SUBCUT .COMPLEX #1 ml 01/12/20 03/24/20 Rx subcutaneous pen injector meclizine 25 mg tablet 25 mg PO Q6H PRN #30 tab 01/12/20 03/24/20 Rx pregabalin 150 mg capsule 150 mg PO BID #180 cap 01/14/20 03/24/20 Rx amiodarone 200 mg tablet 200 mg PO DAILY #60 tab 01/31/20 03/24/20 Rx lancets 33 gauge #300 ea 02/08/20 03/22/20 Rx verapamil 120 mg tablet,extended 120 mg PO QAM #30 tab 03/16/20 03/24/20 Rx release tramadol 50 mg tablet 50 mg PO Q8H PRN #30 tab 03/22/20 03/24/20 Rx insulin glargine [Lantus Solostar 31 unit SQ HS 03/24/20 03/24/20 History U-100 Insulin] Patient History Medical History Abdominal wound dehiscence (06/15/14) Arthritis Atrial fibrillation Atrial flutter Breast cancer (12/18/15) "Abnormal left breast mammogram Status post core needle biopsy 12/18/2015 revealing infiltrating ductal carcinoma Estrogen receptor positive, progesterone receptor positive, HER-2/po negative Status post left needle localization lumpectomy and sentinel lymph node biopsy 01/04/2016 Stage pT1c pN0M0 Status post completion of radiation therapy 02/13/2016 received 3850 cGy utilizing accelerated partial breast irradiation." On 01/17/16 14:10 Deidre Orta wrote "Abnormal left breast mammogram Status post core needle biopsy 12/18/2015 revealing infiltrating ductal carcinoma Estrogen receptor positive, progesterone receptor positive, HER-2/po negative Status post left needle localization lumpectomy and sentinel lymph node biopsy 01/04/2016 Stage pT1c pN0M0" Cervical spine disease Chronic anemia Chronic pain Constipation Dehydration Depression Diabetes mellitus type 2, uncontrolled Gait disturbance Gastroesophageal reflux disease Hip bursitis, left Hypercholesterolemia Hypocalcemia Hypothyroidism Incisional hernia Infiltrating ductal carcinoma of left breast Influenza A (07/2019) Internal hemorrhoids Leg weakness, bilateral Lipodystrophy Lumbar radiculopathy Obstructive sleep apnea Peripheral neuropathy Positive ESTEPHANIA (antinuclear antibody) Recurrent incisional hernia with incarceration (05/16/14) Vitamin B12 deficiency Surgical History H/O bilateral hip replacements History of section History of total knee arthroplasty Status post appendectomy Status post arthroscopy of left shoulder Status post gastric bypass for obesity Status post laparoscopic cholecystectomy Status post lumbar spine surgery for decompression of spinal cord Status post panniculectomy Status post partial mastectomy of left breast Status post repair of ventral hernia Status post total abdominal hysterectomy and bilateral salpingo-oophorectomy Status post total hip replacement, bilateral Family History Unknown Emphysema lung Breast cancer Social History Smoking Status: Former smoker Tobacco Type: Cigarettes packs per day: 2; Number of Years Since Quit: 11; Second Hand Exposure: No; Hx Alcohol Use: No Hx Substance Use: No Preferred Language: Russian Communication Ability: Effective Hearing Ability: Normal Java Android Developer Required: No Beliefs That Will Affect Care: None marital status: Current Living Situation: Spouse current occupational status: retired Feels Safe at Home: Yes Childhood Exposure to Second-Hand Smoke: Yes caffeine: Yes Dental Care, Regularly: No Physical Activity Frequency: 1-2 Times per Week Seatbelt Use: always Sunscreen Use: No Assistive Devices: Glasses and Walker Review of Systems Review of Systems: All systems reviewed & are unremarkable except as noted in Subjective Physical Exam Constitutional: + ill appearing Chronic ill appearing, Ecchymosis on left face and right neck, tearful Respiratory: normal respiratory effort Cardiovascular: Rate/Rhythm: + irregularly irregular Gastrointestinal (Abdomen): Inspection/Auscultation: abdomen normal to inspection Percussion/Palpation: abdomen soft Non-tender, non-distended Results & Data ([facility]) Vital Signs (Past 12 Hours) Vital Signs Temp Pulse Pulse Resp BP BP Pulse Ox 04/02/20 11:34 36.9 C 75 18 171/87 H 93 04/02/20 07:15 36.8 C 69 18 127/88 94 04/02/20 07:00 103 H 04/02/20 04:00 36.9 C 72 20 126/85 94 PG Care Time/CCT Total # of Minutes Spent Total Time Spent with Patient: Total time spent is greater than 50% in coordination of care (as documented) at patient's floor/unit and/or counseling patient: Coding Level of Care Code 09397 Office/OBS Consult Lvl 3 Diagnoses Liver mass R16.0
[2020-04-02] MEDS ORDERED: MICONAZOLE NITRATE POWDER 43 GM EXT PRN (16:32)
[2020-04-02] MEDS ORDERED: diazePAM 2 MG TABLET PO ONE (17:59)
[2020-04-02] MEDS: ATORVASTATIN 40 MG TAB PO SCH (20:09)
[2020-04-02] MEDS: INSULIN GLARGINE SOLOSTAR 100 UNITS/ML 3 ML PEN SQ SCH (20:22)
[2020-04-02] MEDS: DICLOFENAC SOD 1% GEL 100 GM TUBE EXT SCH (20:23)
[2020-04-03] MEDS ORDERED: CYCLOBENZAPRINE HCL 5 MG TAB PO ONE (00:09)
[2020-04-03 06:48] LABS: Hematocrit (blood only) 28.1 % (37-47); Hemoglobin 8.9 g/dL (12.0-16.0); Mean Corpuscular Hemoglobin 28.7 pg (25-34); Mean Corpuscular Hgb Conc 31.7 g/dL (32-36); Mean Corpuscular Volume 90.6 fL (80-100); Mean Platelet Volume 10.6 fL (7.4-10.4); Platelet Count 207 K/uL (130-400); RDW Coefficient of Variation 16.9 % (11.5-14.5); RDW Standard Deviation 54.4 fL (36.4-46.3); White Blood Count 3.52 K/uL (4.8-10.8)
[2020-04-03 07:10] LABS: BUN Creatinine Ratio 22.2 (10-20); Calcium 8.1 mg/dl (8.5-10.1); Creatinine Clr Calc Pharmacy 87.8 ml/min; Est GFR (African American) 103.3; Est GFR (Non-African American) 89.2; Magnesium 2.1 mg/dl (1.8-2.4); Phosphorus 3.9 mg/dl (2.5-4.9)
[2020-04-03] MEDS: INSULIN ASPART 100 UNITS/ML 3 ML PEN SC SCH ×4 (08:20→20:38)
[2020-04-03] MEDS: dilTIAZem ER 120 MG CAPCR PO SCH (08:21)
[2020-04-03] MEDS: PREGABALIN 75 MG CAP PO SCH ×2 (08:21→20:38)
[2020-04-03] MEDS: DOCUSATE SODIUM/SENNA 50/8.6MG TAB PO SCH (08:22)
[2020-04-03] MEDS: AMIODARONE 200 MG TAB PO SCH (08:22)
[2020-04-03] MEDS: DULoxetine HCL 60 MG CAP PO SCH (08:22)
[2020-04-03] MEDS: ANASTROZOLE 1 MG TAB PO SCH (08:22)
[2020-04-03] MEDS: PANTOprazole 40 MG TAB PO SCH (08:22)
[2020-04-03] MEDS: DICLOFENAC SOD 1% GEL 100 GM TUBE EXT SCH ×2 (08:23→21:04)
[2020-04-03] MEDS: LEVOTHYROXINE SODIUM 75 MCG TABLET PO SCH (08:25)
[2020-04-03] MEDS: oxyCODONE/ACETAMINOPHEN 5mg/325mg TAB PO PRN ×3 (08:31→20:43)
--- NOTE | 2020-04-03 09:01 | Hospitalist Progress Note ---
Date of Service April 03, 2020 Assessment & Plan (1) Orthostasis: Dizziness when she bent over and then hit her head when she stood back up causing laceration with acute blood loss anemia No loss of consciousness or other symptoms Orthostatics positive on admit On 03-29 still orthostatic with BP 129/78 lying and 89/54 standing On 03-30 BP 131/78 lying and 95/65 standing stop lisinopril, stop verapamil lyrica has been known to cause orthostatic hypotension, consider modifying could be related to anemia, but patient endorses orthostasis prior to admit to hospital gave 500ml NS bolus 03-31 BP 129/73 lying and 106/56 standing decreased lyrica to half home dose 04-01 Still symptomatic from orthostasis. Giving 1 unit PRBC. 04-02 BP 139/81 lying and BP 123/70 standing -- 1116 vital signs of tolerated transition to long-acting diltiazem (2) Atrial fibrillation: Is in a sinus/paced rhythm here with A. fib at times, rates high at times -Xarelto held on admission but restarted March 27. 03-29 Orthostatic stop verapamil due to potential for side effects start low dose dilt 30 TID continue amiodarone 200 mg once daily continue telemetry monitoring 04-02 Stop dilt IR 30 TID after last dose tonight, start dilt ER 120mg tomorrow morning (3) Acute blood loss anemia: Baseline Hg 11 Hg 9.7 --> 7.1 Received 2 units packed red blood cells After PRBC, hemoglobin down slightly 9.2 --> 8.6 --> 8.2 Cont daily CBC 03-24 Blood loss related to scalp laceration -- profuse bleeding requiring stitches and rochelle. Xarelto held 03-27 Xarelto restarted 03-31 Hg 7.7, checking hemoccult 11-14 Hg 8, patient still orthostatic and fatigued. Checked CT a/p -- no active hemorrhage. Giving 1 unit PRBC. 04-02 Hg 9.1 (4) Liver mass: CT with 2.6cm liver mass of right hepatic lobe concerning for neoplasm 04-02 Discussed with patient's daughter They knew about the liver mass Dr. Lovett was in the process of obtaining an outpatient biopsy Patient and family strongly prefer to stay in hospital in order to get biopsy this week Personally discussed with Dr. Rojas GI Need xarelto held 3 days prior to biopsy Holding xarelto 04-02, 04-03 and 04-04 Pt can get liver biopsy on 04-05 (5) Laceration of scalp: 03-24 Sutured and stapled in the ED 04-01 Site looks well healed 04-03 remove rochelle (6) Peripheral neuropathy: Continue Cymbalta Decreased lyrica to half dose in order to alleviate orthostatic hypotension, a known side effect of lyrica (7) Diabetes mellitus type 2, uncontrolled: ADA diet. Basal insulin coverage. Sliding scale coverage. (8) Supine hypertension: 03-26 Blood pressures going up 172/85 03-30 well controlled Continue holding home lisinopril, stop verapamil in setting of orthostatic hypotension 04-01 BP 169/87 overnight We need to let BP run a bit higher to avoid her becoming dizzy (9) Hypothyroidism: TSH was normal range in 12/2019. - Continue home levothyroxine 37.5 mcg daily (10) Cardiac pacemaker: Placed for tachybradycardia syndrome (11) Aortic valve stenosis: Noted to be mild on echocardiogram from 12/2019 Follow with cardiology (12) Obstructive sleep apnea: Does not have CPAP, has declined repeat sleep study as per PCP notes (13) Breast cancer: Continue anastrozole (14) Gastroesophageal reflux disease: No acute issues Continue PPI (15) Hypercholesterolemia: Continue statin (16) DVT prophylaxis: xarelto held due to liver biopsy in the future Admission and Anticipated Discharge Date Admission Date: March 24, 2020 Subjective Patient has no complaints or problems she is improving with regards to her falls and dizziness with appropriate transfusion and transitioning from verapamil to diltiazem with concerns that arrhythmia may have some play in her subjective feelings of dizziness. These complaints which are longstanding not particularly troubling. Her acute blood loss anemia has also improved with the help of transfusion. This was likely encouraged to do her anticoagulation which encouraged her fall and scalp lesion to have quite substantial bleeding patient is nearing the time that her scalp rochelle could be removed Patient is agreeable to a ultrasound-guided liver biopsy of her mass lesion will coordinate with radiology when she is off her Xarelto for 3 days which will be on April 05 Review of Systems Review of Systems: Mild distress and fatigue no headache, blurry or double vision no speech or swallowing issues no chest pain, pressure or palpitations no shortness of breath, cough or wheezes no abdominal pain, nausea or vomiting, diarrhea or constipation no dysuria, hematuria or frequency no focal joint pain or swelling no back pain, CVA tenderness or radicular pain no bruising, bleeding or rashes no focal signs of weakness or numbness or altered sensation no complaints of anxiety or depression. Physical Exam Physical Exam: The patient appeared well nourished and normally developed. Vital signs as documented. Head exam is normocephalic staple line in her occiput appears to be intact we will try to remove scalp rochelle today on 04/03 as it currently is 10 days out from her initial injury Neck is without JVD, thyromegaly, or carotid bruits. Lungs are clear to auscultation, no focal loss of breath sounds Cardiac exam, Rhythm is regular.. No murmurs, rubs or gallops. Abdominal exam reveals normal bowel sounds, soft non tender, no masses no organomegaly Extremities are nonedematous and both pedal pulses are present Neurologic exam is alert and oriented, no focal loss of strength or sensation Skin is with well-healing rochelle in place Psychologically is without concerns for anxiety or depression. Results & Data Results & Data ([facility]) Vital Signs (Past 12 Hours) Vital Signs Temp Pulse Pulse Resp BP Pulse Ox 04/03/20 07:03 98.2 F 70 18 121/75 95 04/03/20 03:35 97.9 F 65 20 148/76 H 95 04/02/20 23:08 71 04/02/20 22:00 98.1 F 74 16 135/74 95 PG Care Time/CCT Total # of Minutes Spent Total Time Spent with Patient: Total time spent is greater than 50% in coordination of care (as documented) at patient's floor/unit and/or counseling patient: Coding Level of Care Code 59143 Subseq Hosp Care Lvl 2 Diagnoses Orthostasis I95.1 Atrial fibrillation I48.91 Atrial fibrillation type: unspecified Acute blood loss anemia D62 Liver mass R16.0 Laceration of scalp S01.01XA Encounter type: initial encounter Peripheral neuropathy G62.9 Peripheral neuropathy type: polyneuropathy, unspecified Diabetes mellitus type 2, uncontrolled E11.65 Glycemic state: with hyperglycemia Supine hypertension I10 Hypothyroidism E03.9 Hypothyroidism type: unspecified Cardiac pacemaker Z95.0 Aortic valve stenosis I35.0 Cardiac valve disease etiology: etiology unspecified Obstructive sleep apnea G47.33 Breast cancer C50.919 Breast location: unspecified site of breast Estrogen receptor status: unspecified Laterality: unspecified laterality Patient sex: female Gastroesophageal reflux disease K21.9 Esophagitis presence: esophagitis presence not specified Hypercholesterolemia E78.00 DVT prophylaxis Z29.9 (1) Aortic valve stenosis Cardiac valve disease etiology: etiology unspecified Qualified Code(s): I35.0 - Nonrheumatic aortic (valve) stenosis (2) Atrial fibrillation Atrial fibrillation type: unspecified Qualified Code(s): I48.91 - Unspecified atrial fibrillation (3) Hypothyroidism Hypothyroidism type: unspecified Qualified Code(s): E03.9 - Hypothyroidism, unspecified (4) Diabetes mellitus type 2, uncontrolled Glycemic state: with hyperglycemia Qualified Code(s): E11.65 - Type 2 diabetes mellitus with hyperglycemia (5) Peripheral neuropathy Peripheral neuropathy type: polyneuropathy, unspecified Qualified Code(s): G62.9 - Polyneuropathy, unspecified (6) Breast cancer Breast location: unspecified site of breast Estrogen receptor status: unspecified Laterality: unspecified laterality Patient sex: female Qualified Code(s): C50.919 - Malignant neoplasm of unspecified site of unspecified female breast (7) Gastroesophageal reflux disease Esophagitis presence: esophagitis presence not specified Qualified Code(s): K21.9 - Gastro-esophageal reflux disease without esophagitis (8) Laceration of scalp Encounter type: initial encounter Qualified Code(s): S01.01XA - Laceration without foreign body of scalp, initial encounter
[2020-04-03] MEDS: INSULIN GLARGINE SOLOSTAR 100 UNITS/ML 3 ML PEN SQ SCH (20:39)
[2020-04-03] MEDS: TROLAMINE SALICYLATE 10% CRM 255 APPLN/85 GM TUBE EXT PRN ×3 (20:40→20:52)
[2020-04-03] MEDS: ATORVASTATIN 40 MG TAB PO SCH (20:43)
[2020-04-03] MEDS ORDERED: DOCUSATE SODIUM/SENNA 50/8.6MG TAB PO ONE (20:55)
[2020-04-04] MEDS: oxyCODONE/ACETAMINOPHEN 5mg/325mg TAB PO PRN ×6 (00:56→21:26)
[2020-04-04] MEDS: INSULIN ASPART 100 UNITS/ML 3 ML PEN SC SCH ×4 (08:06→21:26)
[2020-04-04] MEDS: dilTIAZem ER 120 MG CAPCR PO SCH (08:10)
[2020-04-04] MEDS: LEVOTHYROXINE SODIUM 75 MCG TABLET PO SCH (08:10)
[2020-04-04] MEDS: DOCUSATE SODIUM/SENNA 50/8.6MG TAB PO SCH (08:10)
[2020-04-04] MEDS: PANTOprazole 40 MG TAB PO SCH (08:10)
[2020-04-04] MEDS: AMIODARONE 200 MG TAB PO SCH (08:10)
[2020-04-04] MEDS: DICLOFENAC SOD 1% GEL 100 GM TUBE EXT SCH ×2 (08:11→21:28)
[2020-04-04] MEDS: DULoxetine HCL 60 MG CAP PO SCH (08:11)
[2020-04-04] MEDS: ANASTROZOLE 1 MG TAB PO SCH (08:11)
[2020-04-04] MEDS: PREGABALIN 75 MG CAP PO SCH ×2 (08:15→21:25)
--- NOTE | 2020-04-04 16:08 | Hospitalist Progress Note ---
Date of Service April 04, 2020 Assessment & Plan (1) Orthostasis: Dizziness when she bent over and then hit her head when she stood back up causing laceration with acute blood loss anemia No loss of consciousness or other symptoms Orthostatics positive on admit On 03-29 still orthostatic with BP 129/78 lying and 89/54 standing On 03-30 BP 131/78 lying and 95/65 standing stop lisinopril, stop verapamil lyrica has been known to cause orthostatic hypotension, consider modifying could be related to anemia, but patient endorses orthostasis prior to admit to hospital gave 500ml NS bolus 03-31 BP 129/73 lying and 106/56 standing decreased lyrica to half home dose 04-01 Still symptomatic from orthostasis. Giving 1 unit PRBC. 04-02 BP 139/81 lying and BP 123/70 standing -- 1116 vital signs of tolerated transition to long-acting diltiazem (2) Atrial fibrillation: Is in a sinus/paced rhythm here with A. fib at times, rates high at times -Xarelto held on admission but restarted March 27. 03-29 Orthostatic stop verapamil due to potential for side effects start low dose dilt 30 TID continue amiodarone 200 mg once daily continue telemetry monitoring 04-02 Stop dilt IR 30 TID after last dose tonight, start dilt ER 120mg tomorrow morning (3) Acute blood loss anemia: Baseline Hg 11 Hg 9.7 --> 7.1 Received 2 units packed red blood cells After PRBC, hemoglobin down slightly 9.2 --> 8.6 --> 8.2 Cont daily CBC 03-24 Blood loss related to scalp laceration -- profuse bleeding requiring stitches and rochelle. Xarelto held 03-27 Xarelto restarted 03-31 Hg 7.7, checking hemoccult -14 Hg 8, patient still orthostatic and fatigued. Checked CT a/p -- no active hemorrhage. Giving 1 unit PRBC. 04-02 Hg 9.1 (4) Liver mass: CT with 2.6cm liver mass of right hepatic lobe concerning for neoplasm 04-02 Discussed with patient's daughter They knew about the liver mass Dr. Lovett was in the process of obtaining an outpatient biopsy Patient and family strongly prefer to stay in hospital in order to get biopsy this week Personally discussed with Dr. Rojas GI Need xarelto held 3 days prior to biopsy Holding xarelto 04-02, 04-03 and 04-04 Pt can get liver biopsy on 04-05 (5) Laceration of scalp: 03-24 Sutured and stapled in the ED 04-01 Site looks well healed 04-03 remove rochelle (6) Peripheral neuropathy: Continue Cymbalta Decreased lyrica to half dose in order to alleviate orthostatic hypotension, a known side effect of lyrica (7) Diabetes mellitus type 2, uncontrolled: ADA diet. Basal insulin coverage. Sliding scale coverage. (8) Supine hypertension: 03-26 Blood pressures going up 172/85 03-30 well controlled Continue holding home lisinopril, stop verapamil in setting of orthostatic hypotension 04-01 BP 169/87 overnight We need to let BP run a bit higher to avoid her becoming dizzy (9) Hypothyroidism: TSH was normal range in 12/2019. - Continue home levothyroxine 37.5 mcg daily (10) Cardiac pacemaker: Placed for tachybradycardia syndrome (11) Aortic valve stenosis: Noted to be mild on echocardiogram from 12/2019 Follow with cardiology (12) Obstructive sleep apnea: Does not have CPAP, has declined repeat sleep study as per PCP notes (13) Breast cancer: Continue anastrozole (14) Gastroesophageal reflux disease: No acute issues Continue PPI (15) Hypercholesterolemia: Continue statin (16) DVT prophylaxis: xarelto held due to liver biopsy in the future Admission and Anticipated Discharge Date Admission Date: March 24, 2020 Subjective Patient continues without complaints or problems she is improving with regards to her falls and dizziness with appropriate transfusion and transitioning from verapamil to diltiazem with concerns that arrhythmia may have some play in her subjective feelings of dizziness. These complaints which are longstanding not particularly troubling. Her acute blood loss anemia has also improved with the help of transfusion. This was likely encouraged to do her anticoagulation which encouraged her fall and scalp lesion to have quite substantial bleeding patient is nearing the time that her scalp rochelle could be removed. Patient is agreeable to a ultrasound-guided liver biopsy of her mass lesion will coordinate with radiology when she is off her Xarelto for 3 days which will be on April 05 Review of Systems Review of Systems: Mild distress and fatigue no headache, blurry or double vision no speech or swallowing issues no chest pain, pressure or palpitations no shortness of breath, cough or wheezes no abdominal pain, nausea or vomiting, diarrhea or constipation no dysuria, hematuria or frequency no focal joint pain or swelling no back pain, CVA tenderness or radicular pain no bruising, bleeding or rashes no focal signs of weakness or numbness or altered sensation no complaints of anxiety or depression. Physical Exam Physical Exam: The patient appeared well nourished and normally developed. Vital signs as documented. Head exam is normocephalic staple line in her occiput appears to be intact we will try to remove scalp rochelle today on 04/03 as it currently is 10 days out from her initial injury Neck is without JVD, thyromegaly, or carotid bruits. Lungs are clear to auscultation, no focal loss of breath sounds Cardiac exam, Rhythm is regular.. No murmurs, rubs or gallops. Abdominal exam reveals normal bowel sounds, soft non tender, no masses no organomegaly Extremities are nonedematous and both pedal pulses are present Neurologic exam is alert and oriented, no focal loss of strength or sensation Skin is with well-healing rochelle in place Psychologically is without concerns for anxiety or depression. Results & Data Results & Data ([facility]) Vital Signs (Past 12 Hours) Vital Signs Temp Pulse Pulse Resp BP BP Pulse Ox 04/04/20 08:00 97.9 F 80 20 158/76 H 97 04/04/20 03:45 97.5 F L 97 H 20 134/80 96 04/04/20 01:54 74 04/03/20 23:40 98.8 F 73 20 126/83 96 PG Care Time/CCT Total # of Minutes Spent Total Time Spent with Patient: Total time spent is greater than 50% in coordination of care (as documented) at patient's floor/unit and/or counseling patient: Coding Level of Care Code 96107 Subseq Hosp Care Lvl 2 Diagnoses Orthostasis I95.1 Atrial fibrillation I48.91 Atrial fibrillation type: unspecified Acute blood loss anemia D62 Liver mass R16.0 Laceration of scalp S01.01XA Encounter type: initial encounter Peripheral neuropathy G62.9 Peripheral neuropathy type: polyneuropathy, unspecified Diabetes mellitus type 2, uncontrolled E11.65 Glycemic state: with hyperglycemia Supine hypertension I10 Hypothyroidism E03.9 Hypothyroidism type: unspecified Cardiac pacemaker Z95.0 Aortic valve stenosis I35.0 Cardiac valve disease etiology: etiology unspecified Obstructive sleep apnea G47.33 Breast cancer C50.919 Breast location: unspecified site of breast Estrogen receptor status: unspecified Patient sex: female Laterality: unspecified laterality Gastroesophageal reflux disease K21.9 Esophagitis presence: esophagitis presence not specified Hypercholesterolemia E78.00 DVT prophylaxis Z29.9 (1) Atrial fibrillation Atrial fibrillation type: unspecified Qualified Code(s): I48.91 - Unspecified atrial fibrillation (2) Laceration of scalp Encounter type: initial encounter Qualified Code(s): S01.01XA - Laceration without foreign body of scalp, initial encounter (3) Peripheral neuropathy Peripheral neuropathy type: polyneuropathy, unspecified Qualified Code(s): G62.9 - Polyneuropathy, unspecified (4) Diabetes mellitus type 2, uncontrolled Glycemic state: with hyperglycemia Qualified Code(s): E11.65 - Type 2 diabetes mellitus with hyperglycemia (5) Hypothyroidism Hypothyroidism type: unspecified Qualified Code(s): E03.9 - Hypothyroidism, unspecified (6) Aortic valve stenosis Cardiac valve disease etiology: etiology unspecified Qualified Code(s): I35.0 - Nonrheumatic aortic (valve) stenosis (7) Breast cancer Breast location: unspecified site of breast Estrogen receptor status: unspecified Patient sex: female Laterality: unspecified laterality Qualified Code(s): C50.919 - Malignant neoplasm of unspecified site of unspecified female breast (8) Gastroesophageal reflux disease Esophagitis presence: esophagitis presence not specified Qualified Code(s): K21.9 - Gastro-esophageal reflux disease without esophagitis
[2020-04-04] MEDS: ATORVASTATIN 40 MG TAB PO SCH (21:25)
[2020-04-04] MEDS: INSULIN GLARGINE SOLOSTAR 100 UNITS/ML 3 ML PEN SQ SCH (21:26)
[2020-04-05] MEDS: DICLOFENAC SOD 1% GEL 100 GM TUBE EXT PRN
[2020-04-05] MEDS: oxyCODONE/ACETAMINOPHEN 5mg/325mg TAB PO PRN ×3 (01:27→17:13)
[2020-04-05] MEDS: INSULIN ASPART 100 UNITS/ML 3 ML PEN SC SCH ×4 (08:14→20:40)
[2020-04-05] MEDS: DULoxetine HCL 60 MG CAP PO SCH (10:55)
[2020-04-05] MEDS: PREGABALIN 75 MG CAP PO SCH ×2 (10:55→20:39)
[2020-04-05] MEDS: LEVOTHYROXINE SODIUM 75 MCG TABLET PO SCH (10:56)
[2020-04-05] MEDS: PANTOprazole 40 MG TAB PO SCH (10:56)
[2020-04-05] MEDS: DOCUSATE SODIUM/SENNA 50/8.6MG TAB PO SCH (10:56)
[2020-04-05] MEDS: dilTIAZem ER 120 MG CAPCR PO SCH (10:57)
[2020-04-05] MEDS: AMIODARONE 200 MG TAB PO SCH (10:57)
[2020-04-05] MEDS: ANASTROZOLE 1 MG TAB PO SCH (10:57)
[2020-04-05] MEDS: DICLOFENAC SOD 1% GEL 100 GM TUBE EXT SCH ×2 (10:58→20:36)
--- NOTE | 2020-04-05 11:02 | Ultrasound Report ---
ULTRASOUND GUIDED FINE-NEEDLE ASPIRATION OF 2.5 CM RIGHT HEPATIC LOBE MASS CLINICAL HISTORY: liver mass seen on CT COMPARISON STUDY: CT of the abdomen and pelvis April 01, 2020. PROCEDURE: The procedure, risks and benefits were discussed with the patient and informed written con sent was obtained. The procedure was performed by Dr. Keane following a timeout. Sonography of th e right hepatic lobe demonstrated the 2.5 cm subcapsular right hepatic lobe lesion as shown on CT. Th is was targeted. Skin was prepped and draped in sterile fashion and local anesthesia was achieved wit h 1% lidocaine. Under direct ultrasound guidance and utilizing a 22-gauge Dulce Maria needle, 3 passes w ere performed within this lesion. Preliminary pathology results demonstrated cells suspicious for mal ignancy. Samples were deemed preliminarily adequate. The patient tolerated the procedure well and no immediate complications were evident. IMPRESSION: Successful ultrasound guided 22-gauge fine needle aspiration of the 2.5 cm right hepatic lobe mass. ACT 112: Negative or not required by law. Electronically signed by: Eladio Keane M.D. 04/05/2020 11:00 AM
--- NOTE | 2020-04-05 18:16 | Hospitalist Progress Note ---
Date of Service April 05, 2020 Assessment & Plan (1) Orthostasis: Dizziness when she bent over and then hit her head when she stood back up causing laceration with acute blood loss anemia No loss of consciousness or other symptoms Orthostatics positive on admit On 03-29 still orthostatic with BP 129/78 lying and 89/54 standing On 03-30 BP 131/78 lying and 95/65 standing stop lisinopril, stop verapamil lyrica has been known to cause orthostatic hypotension, consider modifying could be related to anemia, but patient endorses orthostasis prior to admit to hospital gave 500ml NS bolus 03-31 BP 129/73 lying and 106/56 standing decreased lyrica to half home dose 04-01 Still symptomatic from orthostasis. Giving 1 unit PRBC. 04-02 BP 139/81 lying and BP 123/70 standing -- 111 transition to long-acting diltiazem (2) Atrial fibrillation: Is in a sinus/paced rhythm here with A. fib at times, rates high at times -Xarelto held on admission but restarted March 27. 03-29 Orthostatic stop verapamil due to potential for side effects start low dose dilt 30 TID continue amiodarone 200 mg once daily continue telemetry monitoring 04-02 Stop dilt IR 30 TID after last dose tonight, start dilt ER 120mg tomorrow morning (3) Acute blood loss anemia: Baseline Hg 11 Hg 9.7 --> 7.1 Received 2 units packed red blood cells After PRBC, hemoglobin down slightly 9.2 --> 8.6 --> 8.2 Cont daily CBC 03-24 Blood loss related to scalp laceration -- profuse bleeding requiring stitches and rochelle. Xarelto held 03-27 Xarelto restarted 03-31 Hg 7.7, checking hemoccult 11-14 Hg 8, patient still orthostatic and fatigued. Checked CT a/p -- no active hemorrhage. Giving 1 unit PRBC. 04-02 Hg 8.9 (4) Liver mass: CT with 2.6cm liver mass of right hepatic lobe concerning for neoplasm 04-02 Discussed with patient's daughter They knew about the liver mass Dr. Lovett was in the process of obtaining an outpatient biopsy Patient and family strongly prefer to stay in hospital in order to get biopsy this week Personally discussed with Dr. Rojas GI Need xarelto held 3 days prior to biopsy Holding xarelto 04-02, 04-03 and 04-04 s/p liver biopsy on 04-05 (5) Laceration of scalp: 03-24 Sutured and stapled in the ED 04-01 Site looks well healed 04-03 remove rochelle (6) Peripheral neuropathy: Continue Cymbalta Decreased lyrica to half dose in order to alleviate orthostatic hypotension, a known side effect of lyrica (7) Diabetes mellitus type 2, uncontrolled: ADA diet. Basal insulin coverage. Sliding scale coverage. (8) Supine hypertension: pt is now on diltiazem 120 and doing well (9) Hypothyroidism: TSH was normal range in 12/2019. - Continue home levothyroxine 37.5 mcg daily (10) Cardiac pacemaker: Placed for tachybradycardia syndrome (11) Aortic valve stenosis: Noted to be mild on echocardiogram from 12/2019 Follow with cardiology (12) Obstructive sleep apnea: Does not have CPAP, has declined repeat sleep study as per PCP notes (13) Breast cancer: Continue anastrozole (14) Gastroesophageal reflux disease: No acute issues Continue PPI (15) Hypercholesterolemia: Continue statin (16) DVT prophylaxis: xarelto held due to liver biopsy in the future Admission and Anticipated Discharge Date Admission Date: March 24, 2020 Subjective pt was seen post procedure, she is tired out from the day, she has some side pain. she has really only other complaints of some itchiness of her eye surgery site. Review of Systems Review of Systems: Mild distress and fatigue no headache, blurry or double vision no speech or swallowing issues no chest pain, pressure or palpitations no shortness of breath, cough or wheezes no abdominal pain, nausea or vomiting, diarrhea or constipation no dysuria, hematuria or frequency no focal joint pain or swelling no back pain, CVA tenderness or radicular pain no bruising, bleeding or rashes no focal signs of weakness or numbness or altered sensation no complaints of anxiety or depression. Physical Exam Physical Exam: The patient appeared well nourished and normally developed. Vital signs as documented. Head exam is normocephalic staple line in her occiput appears to be intact we will try to remove scalp rochelle today on 04/03 as it currently is 10 days out from her initial injury Neck is without JVD, thyromegaly, or carotid bruits. Lungs are clear to auscultation, no focal loss of breath sounds Cardiac exam, Rhythm is regular.. No murmurs, rubs or gallops. Abdominal exam reveals normal bowel sounds, soft non tender, no masses no organomegaly Extremities are nonedematous and both pedal pulses are present Neurologic exam is alert and oriented, no focal loss of strength or sensation Skin is with well-healing rochelle in place Psychologically is without concerns for anxiety or depression. Results & Data Results & Data ([facility]) Vital Signs (Past 12 Hours) Vital Signs Temp Pulse Pulse Resp BP BP Pulse Ox 04/05/20 17:20 101 H 04/05/20 15:08 97.7 F 99 H 16 142/84 H 96 04/05/20 12:44 72 16 134/67 04/05/20 11:52 98.6 F 77 18 135/88 95 04/05/20 11:34 66 20 152/88 H 04/05/20 11:03 66 20 147/82 H 96 04/05/20 07:15 98.4 F 100 H 18 178/91 H 98 04/05/20 07:05 81 PG Care Time/CCT Total # of Minutes Spent Total Time Spent with Patient: Total time spent is greater than 50% in coordination of care (as documented) at patient's floor/unit and/or counseling patient: Coding Level of Care Code 31216 Subseq Hosp Care Lvl 2 Diagnoses Orthostasis I95.1 Atrial fibrillation I48.91 Atrial fibrillation type: unspecified Acute blood loss anemia D62 Liver mass R16.0 Laceration of scalp S01.01XA Encounter type: initial encounter Peripheral neuropathy G62.9 Peripheral neuropathy type: polyneuropathy, unspecified Diabetes mellitus type 2, uncontrolled E11.65 Glycemic state: with hyperglycemia Supine hypertension I10 Hypothyroidism E03.9 Hypothyroidism type: unspecified Cardiac pacemaker Z95.0 Aortic valve stenosis I35.0 Cardiac valve disease etiology: etiology unspecified Obstructive sleep apnea G47.33 Breast cancer C50.919 Breast location: unspecified site of breast Estrogen receptor status: unspecified Laterality: unspecified laterality Patient sex: female Gastroesophageal reflux disease K21.9 Esophagitis presence: esophagitis presence not specified Hypercholesterolemia E78.00 DVT prophylaxis Z29.9 (1) Aortic valve stenosis Cardiac valve disease etiology: etiology unspecified Qualified Code(s): I35.0 - Nonrheumatic aortic (valve) stenosis (2) Atrial fibrillation Atrial fibrillation type: unspecified Qualified Code(s): I48.91 - Unspecified atrial fibrillation (3) Hypothyroidism Hypothyroidism type: unspecified Qualified Code(s): E03.9 - Hypothyroidism, unspecified (4) Diabetes mellitus type 2, uncontrolled Glycemic state: with hyperglycemia Qualified Code(s): E11.65 - Type 2 diabetes mellitus with hyperglycemia (5) Peripheral neuropathy Peripheral neuropathy type: polyneuropathy, unspecified Qualified Code(s): G62.9 - Polyneuropathy, unspecified (6) Breast cancer Breast location: unspecified site of breast Estrogen receptor status: unspecified Laterality: unspecified laterality Patient sex: female Qualified Code(s): C50.919 - Malignant neoplasm of unspecified site of unspecified female breast (7) Gastroesophageal reflux disease Esophagitis presence: esophagitis presence not specified Qualified Code(s): K21.9 - Gastro-esophageal reflux disease without esophagitis (8) Laceration of scalp Encounter type: initial encounter Qualified Code(s): S01.01XA - Laceration without foreign body of scalp, initial encounter
[2020-04-05] MEDS: ATORVASTATIN 40 MG TAB PO SCH (20:35)
[2020-04-05] MEDS: INSULIN GLARGINE SOLOSTAR 100 UNITS/ML 3 ML PEN SQ SCH (20:40)
[2020-04-06] MEDS: oxyCODONE/ACETAMINOPHEN 5mg/325mg TAB PO PRN ×4 (00:14→13:19)
[2020-04-06 07:34] LABS: Hematocrit (blood only) 27.2 % (37-47); Hemoglobin 8.6 g/dL (12.0-16.0); Mean Corpuscular Hemoglobin 29.4 pg (25-34); Mean Corpuscular Hgb Conc 31.6 g/dL (32-36); Mean Corpuscular Volume 92.8 fL (80-100); Platelet Count 239 K/uL (130-400); RDW Standard Deviation 56.5 fL (36.4-46.3); Red Blood Count 2.93 M/uL (4.2-5.4); White Blood Count 4.88 K/uL (4.8-10.8)
[2020-04-06 07:40] LABS: INR 1.1 (0.9-1.1); Prothrombin Time 11.2 Seconds (9.0-12.0)
[2020-04-06 08:06] LABS: Albumin Level 2.7 gm/dl (3.4-5.0); BUN Creatinine Ratio 20.4 (10-20); Calcium 8.6 mg/dl (8.5-10.1); Creatinine Clr Calc Pharmacy 83.8 ml/min; Est GFR (African American) 101.8; Est GFR (Non-African American) 87.8; Potassium 3.8 mmol/L (3.5-5.1)
[2020-04-06 08:09] LABS: Albumin Globulin Ratio 0.8 (0.9-2); Bilirubin,Total 0.3 mg/dl (0.2-1); Globulin 3.3 gm/dl (2.5-4.0)
[2020-04-06] MEDS: ANASTROZOLE 1 MG TAB PO SCH (08:19)
[2020-04-06] MEDS: DULoxetine HCL 60 MG CAP PO SCH (08:19)
[2020-04-06] MEDS: PANTOprazole 40 MG TAB PO SCH (08:19)
[2020-04-06] MEDS: PREGABALIN 75 MG CAP PO SCH (08:19)
[2020-04-06] MEDS: DOCUSATE SODIUM/SENNA 50/8.6MG TAB PO SCH (08:20)
[2020-04-06] MEDS: dilTIAZem ER 120 MG CAPCR PO SCH (08:20)
[2020-04-06] MEDS: AMIODARONE 200 MG TAB PO SCH (08:20)
[2020-04-06] MEDS: LEVOTHYROXINE SODIUM 75 MCG TABLET PO SCH (08:20)
[2020-04-06] MEDS: DICLOFENAC SOD 1% GEL 100 GM TUBE EXT SCH (08:21)
[2020-04-06] MEDS: INSULIN ASPART 100 UNITS/ML 3 ML PEN SC SCH ×2 (08:22→13:17)
--- NOTE | 2020-04-06 14:56 | Discharge Summary ---
Date of Service April 06, 2020 Admission HPI Per Admitting Provider 70yo W who had surgery today on her left eye for a "new tear duct" she reports. After the surgery at home, she notes that she bent over and got dizzy. She then stood up and struck the back of her head. She reports that she did not have any chest pain, no shortness of breath, no palpitations, or other sensation other than a presyncopal sensation. She was going to get sent home from the ER; however, when she stood up, she once again got quite dizzy and had to be assisted to bed. Principal Diagnosis acute blood loss anemia due to head laceration hypotension afib requiring medication adjustment liver mass with biopsy Discharge Exam The patient appeared well Vital signs as documented. Facial bruising is clearing up Bicipital laceration is healing with less swelling and contusion Lungs are clear to auscultation and appear unlabored Cardiac exam, Rhythm is regular.. No murmurs, rubs or gallops. Abdominal exam reveals normal bowel sounds, soft non tender, no masses Small ecchymotic area at the right posterior flank at the access site of her liver biopsy Extremities are nonedematous and both pedal pulses are normal. Neurologic exam is alert and oriented, no focal loss of strength or sensation Skin is without other bruises or rashes Psychologically is without concerns for anxiety or depression. Discharge Data Allergies Allergy/AdvReac Type Severity Reaction Status Date / Time meperidine [From Demerol] AdvReac Mild Not Verified 03/24/20 17:52 tolerated. venlafaxine [From Effexor] AdvReac Mild Not Verified 03/24/20 17:52 tolerated metformin AdvReac Unknown INSOMNIA Verified 03/24/20 17:52 amoxicillin [From Augmentin] AdvReac Unknown Verified 03/24/20 17:52 clavulanic acid AdvReac Unknown Verified 03/24/20 17:52 [From Augmentin] Consultations 03/24/20 17:18 ED Decision to Admit Stat 03/26/20 09:58 Consult Case Management - Discharge Planning Routine 04/01/20 15:24 Consult Gastroenterology Routine Ordered Studies 03/24/20 14:43 CT cervical spine wo con Stat CT head/brain wo con Stat 04/01/20 13:36 CT abd pelvis IV con only Routine 04/05/20 10:00 US FNA w/img 1st lesion Routine Hospital Course (1) Orthostasis: Dizziness when she bent over and then hit her head when she stood back up causing laceration with acute blood loss anemia pt transfused prbc and had verapamil changed to long acting verapamil (2) Atrial fibrillation: Is in a sinus/paced rhythm here with A. fib at times, rates high at times -Xarelto held on admission but restarted March 27. amiodarone 200 mg once daily dilt ER 120mg tolerated well (3) Acute blood loss anemia: Baseline Hg 11 Hg 9.7 --> 7.1 Received 3 units packed red blood cells (4) Liver mass: CT with 2.6cm liver mass of right hepatic lobe concerning for neoplasm 04-02 Discussed with patient's daughter They knew about the liver mass s/p liver biopsy on 04-05, stable 24 hours afterward, path pending at discharge, restart xarelto, follow up at pcp office for path results (5) Laceration of scalp: 03-24 Sutured and stapled in the ED 04-03 remove rochelle (6) Peripheral neuropathy: Continue Cymbalta lyrica (7) Diabetes mellitus type 2, uncontrolled: ADA diet. resume usual diet (8) Supine hypertension: pt is now on diltiazem 120 and doing well (9) Hypothyroidism: TSH was normal range in 12/2019. - Continue home levothyroxine 37.5 mcg daily (10) Cardiac pacemaker: Placed for tachybradycardia syndrome (11) Aortic valve stenosis: Noted to be mild on echocardiogram from 12/2019 Follow with cardiology as oupt (12) Obstructive sleep apnea: Does not have CPAP, has declined repeat sleep study as per PCP notes (13) Breast cancer: Continue anastrozole (14) Gastroesophageal reflux disease: No acute issues Continue PPI (15) Hypercholesterolemia: Continue statin (16) DVT prophylaxis: xarelto Total Time Total Time Spent Total Time Spent (In Minutes): It required greater than 30 minutes to prepare this patient for discharge Discharge Plan Discharge Items Patient Disposition: Home - Home Health Services Reason For Visit: FALL DIZZINESS Discharge Diagnosis: acute blood loss anemia, from head lacertaion liver biospy Condition on Discharge: Good Activity: Per Instructions section Activity Comment: per home PT Non-emergency contact: Primary Care Provider Call non-emergency contact if: you have any medication questions and your symptoms worsen Follow-up/Referrals: Lovett,Jarod E., MD [Primary Care Provider] - 04/10/20 3:00 pm (You have a follow up appt on Friday at 3pm. Please arrive 15 minutes prior to you appt. It is important that you keep this appt, if it does not fit your schedule, please call [phone] Lovett had no appts available so you are seeing Blanka Rahman ) Diet: Regular Addtl Attending Provider Instructions: 1. Scalp rochelle were removed prior to discharge 2. You can shower and clean the wound with soap and water. Pat dry with a towel. Leave the wound dry and open to the air. 3. If crust develops over the wound you can use a Q-tip to apply a 1:1 peroxide:water solution to clean the wound. 4. Look for signs of infection of the wound including: increased pain, swelling, foul discharge, streaking, or increased temperature. If any of these are noticed you should return to the Emergency Department for further assessment and treatment. please follow up with Dr Dewitt office next week Pending Studies at Discharge: Yes Studies:: liver biopsy Stand-Alone Forms: [facility] [employer], Smoking Cessation Medications and DC Order Prescriptions: New diltiazem HCl [Taztia XT] 120 mg Capsule,Extended Release 24 Hr 120 mg PO QAM Qty: 90 RF: 3 oxycodone-acetaminophen [Percocet] 5-325 mg Tablet 1 tab PO Q8H PRN (Reason: pain) Qty: 20 RF: 0 Refresh Optive 0.5-0.9 % drops 1 drp ophthalmic (eye) BID PRN (Reason: dry eye(s)) Qty: 15 RF: 0 qkbty-lozve-fycfada-pramoxine 3.5-500-10,000 ny-widw-ogmc/g ointment 1 applic topical BID Qty: 14.2 RF: 0 Continued cyanocobalamin (vitamin B-12) 1,000 mcg/mL kit 1,000 mcg IM MONTHLY RF: 0 multivitamin tablet 1 tab PO QAM RF: 0 glipizide 10 mg tablet 10 mg PO BID Qty: 180 RF: 3 (DME) OneTouch Ultra Blue Test Strip Strip See Dose Instructions .ROUTE .MEDSUPPLY Qty: 100 RF: 4 pantoprazole 40 mg tablet,delayed release (DR/EC) 40 mg PO DAILY Qty: 90 RF: 3 duloxetine 60 mg capsule,delayed release(DR/EC) 60 mg PO QAM Qty: 90 RF: 3 lisinopril 10 mg tablet 10 mg PO QAM Qty: 90 RF: 3 levothyroxine 25 mcg tablet 37.5 mcg PO QAM Qty: 135 RF: 3 atorvastatin 40 mg tablet 40 mg PO HS Qty: 90 RF: 3 pregabalin 150 mg capsule 150 mg PO BID Qty: 180 RF: 0 (DME) lancets [AmberPointTouch Delica Lancets] 33 gauge misc See Dose Instructions .ROUTE .MEDSUPPLY Qty: 300 RF: 3 amiodarone 200 mg tablet 200 mg PO DAILY Qty: 60 RF: 2 (DME) blood-glucose meter [[employer] UltraMini] kit See Dose Instructions .ROUTE .MEDSUPPLY Qty: 1 RF: 0 meclizine 25 mg tablet 25 mg PO Q6H PRN (Reason: dizziness) Qty: 30 RF: 0 Trulicity 0.75 mg/0.5 mL pen injector 0.75 mg subcut .COMPLEX Qty: 1 RF: 5 (DME) blood-glucose meter [AmberPointTouch Ultra2 Meter] misc See Rx Instructions .ROUTE .MEDSUPPLY RF: 0 (DME) pen needle, diabetic [BD Ultra-Fine Dulce Pen Needle] 32 gauge x 5/32" needle See Rx Instructions .ROUTE .MEDSUPPLY RF: 0 cholecalciferol (vitamin D3) [Vitamin D3] 25 mcg (1,000 unit) Capsule 1,000 unit PO QAM RF: 0 anastrozole 1 mg tablet 1 mg PO QAM RF: 0 Xarelto 20 mg tablet 20 mg PO DAILY RF: 0 acetaminophen [Tylenol Extra Strength] 500 mg Tablet 500 mg PO Q6H PRN (Reason: Pain) RF: 0 Lantus Solostar U-100 Insulin 100 unit/mL (3 mL) insulin pen 31 unit SQ HS RF: 0 tramadol 50 mg tablet 50 mg PO Q8H PRN (Reason: pain) Qty: 30 RF: 0 Discontinued verapamil 120 mg tablet extended release 120 mg PO QAM Qty: 30 RF: 5 dextromethorphan polistirex [Delsym 12 hour] 30 mg/5 mL Suspension,Extended Rel 12 Hr 10 ml PO Q12H PRN (Reason: Cough) RF: 0 Discharge Orders: Discharge Order (Routine); Ordered 04/06/20 Ordered By: Curtis Zamorano Admission Data Admit Date/Time: 03/24/20 18:40 Attending Provider: Curtis Zamorano Admit Provider: Raffaele Christian Primary Care Provider: Jarod Lovett Other Providers: Raffaele Christian ; [facility] ; N[facility] ; Andrey Rojas ; [facility] Other Interventions: Discharge Summary Assessment (RN) Last Done: 04/06/20 14:05 Coding Level of Care Code D/C Day Management >30 mins Diagnoses Orthostasis I95.1 Atrial fibrillation I48.91 Atrial fibrillation type: unspecified Acute blood loss anemia D62 Liver mass R16.0 Laceration of scalp S01.01XA Encounter type: initial encounter Peripheral neuropathy G62.9 Peripheral neuropathy type: polyneuropathy, unspecified Diabetes mellitus type 2, uncontrolled E11.65 Glycemic state: with hyperglycemia Supine hypertension I10 Hypothyroidism E03.9 Hypothyroidism type: unspecified Cardiac pacemaker Z95.0 Aortic valve stenosis I35.0 Cardiac valve disease etiology: etiology unspecified Obstructive sleep apnea G47.33 Breast cancer C50.919 Breast location: unspecified site of breast Estrogen receptor status: unspecified Patient sex: female Laterality: unspecified laterality Gastroesophageal reflux disease K21.9 Esophagitis presence: esophagitis presence not specified Hypercholesterolemia E78.00 DVT prophylaxis Z29.9
== END 2020-04-06 15:09 | disposition home health service (06) | DRG 580 ==
LOC: ED 14:34 → SUATTDRO 18:40 → 2S 18:40 → 2N 03-29 12:49

== ENCOUNTER 2020-10-25 15:06 | Inpatient (IN) ==
--- NOTE | 2020-10-25 16:02 | Emergency Department Note ---
History of Present Illness General Chief complaint: Fall Stated complaint: FELL TODAY,HIT HEAD,LEGS ARE WEAK,CANNOT WALK Time Seen by Provider: 10/25/20 15:50 Source: patient History of Present Illness Provider complaint: Leg weakness Onset (ago): month(s) 3 Location: lower extremity, left and right Severity: moderate Pain Consistency: + intermittent Quality: + other (Weak) Relieved By: + none Associated symptoms: no chest pain, no cough, no fever/chills, no nausea/vomiting and no shortness of breath This is a 70-year-old female presents with leg weakness for about 2 to 3 months. She states it is both legs that are weak. She uses a walker to get around. She just told her doctor about it today. She states she has been falling frequently at least once a day since this started. She fell today at 3 PM. She did hit her head on the ground. She did not lose consciousness. She has chronic neck pain. She denies any focal numbness or weakness to her body. She did not vomit. She has no chest pain, shortness of breath, fever, cough or cold symptoms, abdominal pain, diarrhea or urinary symptoms. She states she has been trying to get into a rehab facility but has been unsuccessful. She states that she feels unsafe going home because of her weakness. She has breast cancer with metastatic disease to her liver. She states that she has three more weeks of chemotherapy to go. Home Medications Medication Instructions Recorded Confirmed Type cyanocobalamin (vitamin B-12) 1,000 mcg IM MONTHLY ea 02/04/18 10/25/20 History 1,000 mcg/mL injection kit multivitamin 1 tab PO QAM 02/04/18 10/25/20 History cholecalciferol (vitamin D3) 1,000 unit PO QAM 07/29/19 10/25/20 History [Vitamin D3] atorvastatin 40 mg tablet 40 mg PO HS #90 tab 11/29/19 10/25/20 Rx meclizine 25 mg tablet 25 mg PO Q6H PRN #30 tab 01/12/20 10/25/20 Rx diltiazem HCl [Taztia XT] 120 mg PO QAM #90 cap 04/06/20 10/25/20 Rx insulin glargine 100 unit/mL (3 31 unit SQ HS #15 ml 06/08/20 10/25/20 Rx mL) subcutaneous pen dulaglutide 0.75 mg/0.5 mL 0.75 mg SUBCUT WK #2 ml 06/20/20 10/25/20 Rx subcutaneous pen injector rivaroxaban 20 mg tablet 20 mg PO QAM 08/14/20 10/25/20 History pantoprazole 40 mg tablet,delayed 40 mg PO QAM #90 tab 09/07/20 10/25/20 Rx release amiodarone 200 mg tablet 200 mg PO QAM 09/21/20 10/25/20 History buspirone 7.5 mg PO BID PRN 09/27/20 10/25/20 History calcium 1 mg PO DAILY 09/27/20 10/25/20 History lisinopril 10 mg tablet 10 mg PO QAM #90 tab 10/09/20 10/25/20 Rx acetaminophen 500 mg tablet 1,000 mg PO TID PRN #90 tab 10/17/20 10/25/20 Rx tramadol 50 mg tablet 50 mg PO Q12H PRN #60 tab 10/17/20 10/25/20 Rx levothyroxine 25 mcg tablet 37.5 mcg PO QAM #135 tab 10/24/20 10/25/20 Rx duloxetine 20 mg PO QAM 10/25/20 10/25/20 History duloxetine 60 mg PO QAM 10/25/20 10/25/20 History gabapentin 600 mg tablet 300 mg PO BID #60 tab 10/25/20 10/25/20 Rx glipizide 10 mg tablet 5 mg PO BID tab 10/25/20 10/25/20 History Allergies Allergy/AdvReac Type Severity Reaction Status Date / Time metformin AdvReac Severe Verified 10/25/20 19:09 Past Med/Surg History Medical History Anxiety Aortic stenosis Mild AV stenosis per 12/2019 ECHO. (MERLENE= 1.6cm2; AV mean gradient= 7.8mmHg; AV max velocity= 1.939 m/s) Atrial fibrillation hx Atrial flutter hx Bilateral hip bursitis Cervical spine disease Chronic anemia Chronic pain Degenerative disc disease Depression Diabetes mellitus, type 2 IDDM Gastroesophageal reflux disease Hx of cardiac pacemaker [facility]. [employer] device. follows with Dr Ramires Hx of tachycardia-bradycardia syndrome reason for pacemaker Hypercholesterolemia Hypothyroidism Infiltrating ductal carcinoma of left breast Initially dx'ed in 2016- s/p lumpectomy, XRT and anastrozole Metastatic breast cancer March 2020 Liver mass Pt denies but 05/17/20 PET scan shows 2.5 right hepatic lobe mass consistent with known hepatic metastasis Metastatic lung carcinoma Obstructive sleep apnea does not wear machine Peripheral neuropathy Surgical History H/O bilateral hip replacements History of section History of colonoscopy History of evacuation of hematoma (08/30/13) Hematoma right breast and right chest 08/31/13 Dr. Shah History of total knee arthroplasty bilateral Port-A-Cath in place (06/13/20) Insertion of Mediport Right Subclavian Dr. Shah 06/13/2020 Status post appendectomy Status post arthroscopy of left shoulder Status post gastric bypass for obesity Status post laparoscopic cholecystectomy Status post lumbar spine surgery for decompression of spinal cord Status post panniculectomy Status post partial mastectomy of left breast Status post placement of cardiac pacemaker Status post repair of ventral hernia Status post total abdominal hysterectomy and bilateral salpingo-oophorectomy Status post total hip replacement, bilateral Family History Unknown Breast cancer Emphysema lung Mother Diabetes Heart disease Father Heart disease Other No family history of adverse response to anesthesia Denies family history of Ovarian cancer Prostate cancer Coronary heart disease Colorectal cancer Social History Smoking Status: Never smoker Tobacco Type: Cigarettes packs per day: 2; Second Hand Exposure: Yes; Hx Alcohol Use: Yes Alcohol type: wine Hx Substance Use: No Preferred Language: Turkmen Communication Ability: Effective Hearing Ability: Normal [employer] Required: No Beliefs That Will Affect Care: None marital status: Current Living Situation: Spouse current occupational status: retired Feels Safe at Home: No Is there a partner from a previous relationship who is making you feel unsafe now?: No Childhood Exposure to Second-Hand Smoke: Yes caffeine: Yes Dental Care, Regularly: No Physical Activity Frequency: 1-2 Times per Week Seatbelt Use: always Sunscreen Use: No Assistive Devices: Cane, Denture - Upper, Denture - Lower, Glasses and Walker Review of Systems See HPI for pertinent positives & negatives. and A total of 10 systems reviewed and were otherwise negative Physical Exam Vital Signs Vital Signs - 24 hr 10/25/20 15:22 10/25/20 16:00 10/25/20 16:01 Temperature 36.7 C Temperature Source Oral Pulse Rate 70 65 64 Pulse Rate from SpO2 Sensor 67 64 Pulse Rhythm Regular Pulse Strength Normal Respiratory Rate 20 19 17 Respiratory Effort / Characteristics Non-Labored Spontaneous Respiratory Depth Normal Respiratory Pattern Regular Blood Pressure 105/68 Blood Pressure Mean 80 Blood Pressure Position Sitting Pulse Oximetry 95 94 96 Oxygen Delivery Method Room Air Sepsis Recent Fever Within 48 Hours No Sepsis New/Unexplained Change in Mental Status No Sepsis Action Taken by Nursing No Action Required 10/25/20 16:30 10/25/20 17:00 10/25/20 17:05 Temperature Temperature Source Pulse Rate 63 62 62 Pulse Rate from SpO2 Sensor 63 63 Pulse Rhythm Pulse Strength Respiratory Rate 13 22 Respiratory Effort / Characteristics Respiratory Depth Respiratory Pattern Blood Pressure 135/64 Blood Pressure Mean 87 Blood Pressure Position Pulse Oximetry 100 97 94 Oxygen Delivery Method Room Air Sepsis Recent Fever Within 48 Hours Sepsis New/Unexplained Change in Mental Status Sepsis Action Taken by Nursing 10/25/20 17:30 10/25/20 17:31 10/25/20 18:04 Temperature Temperature Source Pulse Rate 64 61 82 Pulse Rate from SpO2 Sensor 62 62 Pulse Rhythm Pulse Strength Respiratory Rate 22 22 20 Respiratory Effort / Characteristics Respiratory Depth Respiratory Pattern Blood Pressure 96/64 L Blood Pressure Mean 74 Blood Pressure Position Pulse Oximetry 99 99 Oxygen Delivery Method Sepsis Recent Fever Within 48 Hours Sepsis New/Unexplained Change in Mental Status Sepsis Action Taken by Nursing 10/25/20 18:07 10/25/20 18:30 10/25/20 18:31 Temperature Temperature Source Pulse Rate 71 60 61 Pulse Rate from SpO2 Sensor 60 61 Pulse Rhythm Pulse Strength Respiratory Rate 23 22 15 Respiratory Effort / Characteristics Respiratory Depth Respiratory Pattern Blood Pressure 149/62 H 135/69 Blood Pressure Mean 91 91 Blood Pressure Position Pulse Oximetry 99 100 Oxygen Delivery Method Sepsis Recent Fever Within 48 Hours Sepsis New/Unexplained Change in Mental Status Sepsis Action Taken by Nursing 10/25/20 19:00 10/25/20 19:30 10/25/20 19:31 Temperature Temperature Source Pulse Rate 63 84 81 Pulse Rate from SpO2 Sensor 63 80 76 Pulse Rhythm Pulse Strength Respiratory Rate 18 20 15 Respiratory Effort / Characteristics Respiratory Depth Respiratory Pattern Blood Pressure 144/65 H Blood Pressure Mean 91 Blood Pressure Position Pulse Oximetry 100 100 97 Oxygen Delivery Method Sepsis Recent Fever Within 48 Hours Sepsis New/Unexplained Change in Mental Status Sepsis Action Taken by Nursing Constitutional: Vital signs reviewed. Eyes: Pupils are equal round reactive to light. Conjunctiva are noninjected. ENT: Pharynx is clear without erythema or exudate. Mucous membranes are moist. No midline tenderness of the cervical spine. Respiratory: Clear to auscultation bilaterally. Breath sounds are equal bilaterally. Cardiovascular: Regular rate and rhythm. No rubs or gallops. GI: Soft, nondistended and nontender. Bowel sounds are present. Musculoskeletal: No midline tenderness to the thoracic or lumbosacral spine. No hip tenderness. She does have tenderness to the ulnar aspect of the left wrist. Integumentary: No cyanosis. or jaundice. Bruising and soft tissue swelling to the left side of her head. Neurologic: The patient is awake and alert. Cranial nerves II-XII are intact. Motor is 5 out of 5 in the upper extremities. Her strength is about 2 out of 5 in the lower extremities bilaterally. Sensation is intact to light touch all extremities. Normal speech. No pronator drift. No limb ataxia. Psychiatric: Normal affect. Not anxious appearing. Course Administered Medications Discontinued Medications Acetaminophen (Acetaminophen 325 Mg Tab) 650 mg PO NOW STA Stop: 10/25/20 17:41 Last Admin: 10/25/20 18:03 Dose: 650 mg Documented by: [id number] Medical Decision Making Differential Diagnosis Ambulatory dysfunction, intracranial hemorrhage, concussion, skull fracture, wri st fracture Medical Records Attestation: I reviewed the patient's medical records. I did perform a limited focused review of portions of the patient's old chart on the electronic medical record. The patient was seen here September 27 for injuries after a fall. She was sent home after evaluation. Home Medications Current Medication List: was personally reviewed by me Laboratory Data Attestation: I reviewed the patient's lab results. Result diagrams: 10/25/20 16:12 10/25/20 16:12 Lab Results 10/25/20 10/25/20 10/25/20 Range/Units 15:57 16:12 16:12 WBC 3.79 L (4.8-10.8) K/uL RBC 3.21 L (4.2-5.4) M/uL Hgb 9.3 L (12.0-16.0) g/dL Hct 28.6 L (37-47) % MCV 89.1 (80-100) fL MCH 29.0 (25-34) pg MCHC 32.5 (32-36) g/dL RDW Std Deviation 66.1 H (36.4-46.3) fL RDW Coeff of Thompson 20.7 H (11.5-14.5) % Plt Count 246 (130-400) K/uL MPV 10.7 H (7.4-10.4) fL Immature Gran % (Auto) 0.5 % Neut % (Auto) 64.5 % Lymph % (Auto) 23.7 % [place] % (Auto) 10.3 % Eos % (Auto) 0.5 % Baso % (Auto) 0.5 % Neut # (Auto) 2.44 (1.4-6.5) K/uL Lymph # (Auto) 0.90 L (1.2-3.4) K/uL [place] # (Auto) 0.39 (0.11-0.59) K/uL Eos # (Auto) 0.02 (0-0.5) K/uL Baso # (Auto) 0.02 (0-0.2) K/uL Immature Gran # (Auto) 0.02 (0.00-0.02) K/uL Anisocytosis Present Sodium 136 (136-145) mmol/L Potassium 3.8 (3.5-5.1) mmol/L Chloride 104 (98-107) mmol/L Carbon Dioxide 28 (21-32) mmol/L Anion Gap 4.0 (3-11) BUN 15 (7-18) mg/dl Creatinine 0.71 (0.6-1.2) mg/dl Est Cr Clr Drug Dosing Not Reportable Est GFR ( Amer) 98.6 ml/min Est GFR (Non-Af Amer) 85.1 ml/min BUN/Creatinine Ratio 20.6 H (10-20) Glucose 222 H (70-99) mg/dl Calcium 8.5 (8.5-10.1) mg/dl Total Bilirubin 0.5 (0.2-1) mg/dl AST 26 (15-37) U/L ALT 48 (12-78) U/L Alkaline Phosphatase 104 (45-117) U/L Troponin I < 0.015 (0-0.045) ng/ml Total Protein 6.6 (6.4-8.2) gm/dl Albumin 3.4 (3.4-5.0) gm/dl Globulin 3.2 (2.5-4.0) gm/dl Albumin/Globulin Ratio 1.1 (0.9-2) TSH 2.410 (0.300-4.500) uIu/ml Urine Color Dark Yellow Urine Appearance Turbid A (Clear) Urine pH 5.0 (4.5-7.5) Ur Specific [place] 1.025 (1.000-1.030) Urine Protein Trace H (Negative) Urine Glucose (UA) Negative (Negative) Urine Ketones Trace H (Negative) Urine Blood Negative (Negative) Urine Nitrite Negative (Negative) Urine Bilirubin Negative (Negative) Urine Urobilinogen Negative (Negative) Ur Leukocyte Esterase 2+ H (Negative) Urine WBC (Auto) >30 H (0-5) /hpf Urine RBC (Auto) 5-10 H (0-4) /hpf U Hyaline Cast (Auto) 10-30 H (0-5) /lpf U Epithel Cells (Auto) 10-20 H (0-5) /lpf Urine Bacteria (Auto) 3+ H (Negative) Urine Crystals Not Reportable Calcium Oxalate Crystal Present A (None Prsent) COVID-19 Eval Order SARS-CoV-2 (PCR) (Negative) 10/25/20 10/25/20 Range/Units 17:00 17:00 WBC (4.8-10.8) K/uL RBC (4.2-5.4) M/uL Hgb (12.0-16.0) g/dL Hct (37-47) % MCV (80-100) fL MCH (25-34) pg MCHC (32-36) g/dL RDW Std Deviation (36.4-46.3) fL RDW Coeff of Thompson (11.5-14.5) % Plt Count (130-400) K/uL MPV (7.4-10.4) fL Immature Gran % (Auto) % Neut % (Auto) % Lymph % (Auto) % [place] % (Auto) % Eos % (Auto) % Baso % (Auto) % Neut # (Auto) (1.4-6.5) K/uL Lymph # (Auto) (1.2-3.4) K/uL [place] # (Auto) (0.11-0.59) K/uL Eos # (Auto) (0-0.5) K/uL Baso # (Auto) (0-0.2) K/uL Immature Gran # (Auto) (0.00-0.02) K/uL Anisocytosis Sodium (136-145) mmol/L Potassium (3.5-5.1) mmol/L Chloride (98-107) mmol/L Carbon Dioxide (21-32) mmol/L Anion Gap (3-11) BUN (7-18) mg/dl Creatinine (0.6-1.2) mg/dl Est Cr Clr Drug Dosing Est GFR ( Amer) ml/min Est GFR (Non-Af Amer) ml/min BUN/Creatinine Ratio (10-20) Glucose (70-99) mg/dl Calcium (8.5-10.1) mg/dl Total Bilirubin (0.2-1) mg/dl AST (15-37) U/L ALT (12-78) U/L Alkaline Phosphatase (45-117) U/L Troponin I (0-0.045) ng/ml Total Protein (6.4-8.2) gm/dl Albumin (3.4-5.0) gm/dl Globulin (2.5-4.0) gm/dl Albumin/Globulin Ratio (0.9-2) TSH (0.300-4.500) uIu/ml Urine Color Urine Appearance (Clear) Urine pH (4.5-7.5) Ur Specific [place] (1.000-1.030) Urine Protein (Negative) Urine Glucose (UA) (Negative) Urine Ketones (Negative) Urine Blood (Negative) Urine Nitrite (Negative) Urine Bilirubin (Negative) Urine Urobilinogen (Negative) Ur Leukocyte Esterase (Negative) Urine WBC (Auto) (0-5) /hpf Urine RBC (Auto) (0-4) /hpf U Hyaline Cast (Auto) (0-5) /lpf U Epithel Cells (Auto) (0-5) /lpf Urine Bacteria (Auto) (Negative) Urine Crystals Calcium Oxalate Crystal (None Prsent) COVID-19 Eval Order Covid19 at [facility] SARS-CoV-2 (PCR) NEGATIVE (Negative) Imaging Data Radiologist's Impression: Cervical Spine CT 10/25/20 15:[address] DOSE: HISTORY: fall eval for injury TECHNIQUE: Multiaxial CT images of the cervical spine were performed and reformatted in the sagittal and coronal plane without the use of contrast. A dose lowering technique was utilized adhering to the principles of ALARA. COMPARISON: Cervical spine CT 03/24/2020. FINDINGS: No fractures. Mild anterolisthesis of C5 and C6. The C5-C6 facets are fused. There is moderate disc space narrowing at C5-C6. Prevertebral soft tissues and the C1-C2 interval are intact. No pneumothorax. Left-sided pacemaker wires are partially visualized. There is also partially visualized right subclavian central venous catheter. IMPRESSION: No fractures within the cervical spine. ACT 112: Negative or not required by law. Electronically signed by: Shan Hollingsworth M.D. 10/25/2020 4:53 PM Chest X-Ray 10/25/20 15:57 XR chest 1V portable HISTORY: 70 years-old Female weakness acute weakness COMPARISON: Chest radiograph 08/17/2020 TECHNIQUE: Portable AP view of the chest FINDINGS: Cardiac silhouette is upper limits of normal in size. Left subclavian pacer. Unchanged positioning of the right subclavian [id number] catheter. No pneumothorax, pleural effusion, airspace consolidation or overt pulmonary edema. Ejection changes of the spine and right shoulder. Left shoulder total joint arthroplasty. IMPRESSION: No acute process. ACT 112: Negative or not required by law. The above report was generated using voice recognition software. It may contain grammatical, syntax or spelling errors. Electronically signed by: Jeremy Batres M.D. 10/25/2020 5:[address] 10/25/20 15:57 CT head/brain wo con CLINICAL HISTORY: 70 years-old Female with fall eval for injury. Acute head injury status post fall TECHNIQUE: Multiple axial CT images of the head were obtained without contrast. A dose lowering technique was utilized adhering to the principles of ALARA. CT DOSE: 1290.15 mGy.cm COMPARISON: Head CT 09/27/2020 FINDINGS: No acute intracranial hemorrhage, midline shift, intracranial mass, hydrocephalus, territorial ischemia or abnormal extra-axial collection. Age-rela alicia involutional changes. White matter hypodensities suggestive of chronic microvascular ischemic disease. Senescent calcifications of the lentiform nuclei. The calvarium is intact. Left frontal scalp hematoma, 3.7 x 0.5 cm. No opaque foreign body. Prior bilateral lens repair. The paranasal sinuses, mastoid air cells, and middle ear cavities are clear. IMPRESSION: 1. No acute intracranial abnormality or calvarial fracture. 2. Small left frontal scalp hematoma. ACT 112: Negative or not required by law. The above report was generated using voice recognition software. It may contain grammatical, syntax or spelling errors. Electronically signed by: Jeremy Batres M.D. 10/25/2020 4:47 PM Pelvis X-Ray 10/25/20 15:57 XR pelvis 1-2V routine CLINICAL HISTORY: fall eval for injury. Pelvic pain. COMPARISON STUDY: Pelvis 07/10/2012. FINDINGS: Posterior decompression in fusion within the mid to lower lumbar spine. There are also bilateral total hip arthroplasties. The hardware appears intact. No fracture or dislocation within the pelvis or hips. The sacrum appears intact. IMPRESSION: Postoperative changes as described above. No acute fractures within the pelvis or hips. ACT 112: Negative or not required by law. Electronically signed by: Shan Hollingsworth M.D. 10/25/2020 5:13 PM Wrist X-Ray 10/25/20 16:02 XR wrist LT min 3V routine HISTORY: 70 years-old Female fall eval for injury acute left wrist pain status post fall COMPARISON: None TECHNIQUE: 3 views of the left wrist FINDINGS: Multifocal osteoarthritis, severe within the first carpal metacarpal joint and moderate within the radiocarpal articulation. Chondrocalcinosis. Demineralized appearance of the bones. No acute fracture, dislocation, opaque foreign body or osseous erosion. IMPRESSION: 1. No acute fracture. 2. Multifocal osteoarthritis as above. ACT 112: Negative or not required by law. The above report was generated using voice recognition software. It may contain grammatical, syntax or spelling errors. Electronically signed by: Jeremy Batres M.D. 10/25/2020 5:12 PM ECG Data Attestation: I personally reviewed and interpreted this ECG as follows: Indication: + weakness Rate (beats per minute): 63 Rhythm: + other (Trial paced rhythm) ECG [place]: + Normal ECG Findings: + Other (Motion artifact in the precordial leads.); no PVCs Head Trauma GCS Score: 15 MDM Narrative I did evaluate the patient as noted above. The patient is presenting with a head injury after a fall today. She has had frequent falls for some time now and was seen last month for a fall. She states she falls nearly every day. IV access was established. I did place an order for continuous cardiac monitoring. The monitor showed a paced rhythm at a rate of 65 bpm. I did order and personally review the patient's 12-lead EKG as described above. She has a paced rhythm without ectopy. I did order and personally reviewed the images of the patient's chest, pelvis and left wrist x-rays as described above. There is no evidence of fracture or dislocation. No evidence of pneumonia. I did order a urine analysis. She does appear to have a UTI. I did order and review the patient's blood work as noted in the electronic medical record. She has mild leukopenia and anemia. She is receiving chemotherapy. Electrolytes are unremarkable. Troponin is negative. COVID-19 testing is negative. I did order a CT of the head and cervical spine. I did review the images myself as well as the radiology report as described above. There is no evidence of acute intr acranial hemorrhage. No fracture of the cervical spine. I did reevaluate the patient. She did request some pain medication for her wrist. She was given Tylenol p.o. She was placed in a wrist lacer for comfort. She will be hospitalized for further care and evaluation. I did discuss the case with the hospitalist and case monitor. Impression & Plan Acute head injury, Weakness of both legs, Anemia, Injury of left wrist, Frequent falls, Leukopenia Discharge Plan Visit Data Chief Complaint: Fall Stated Complaint: FELL TODAY,HIT HEAD,LEGS ARE WEAK,CANNOT WALK ED Provider: Curtis Olivera Discharge Problem: Acute head injury, Weakness of both legs, Anemia, Injury of left wrist, Frequent falls, Leukopenia Forms Stand Alone Forms: My [facility] Prescriptions Prescriptions: No Action cyanocobalamin (vitamin B-12) 1,000 mcg/mL kit 1,000 mcg IM MONTHLY RF: 0 multivitamin tablet 1 tab PO QAM RF: 0 atorvastatin 40 mg tablet 40 mg PO HS Qty: 90 RF: 3 Lantus Solostar U-100 Insulin 100 unit/mL (3 mL) insulin pen 31 unit SQ HS Qty: 15 RF: 5 Trulicity 0.75 mg/0.5 mL pen injector 0.75 mg subcut WK Qty: 2 RF: 5 pantoprazole 40 mg tablet,delayed release (DR/EC) 40 mg PO QAM Qty: 90 RF: 3 lisinopril 10 mg tablet 10 mg PO QAM Qty: 90 RF: 3 tramadol [Ultram] 50 mg tablet 50 mg PO Q12H PRN (Reason: pain) Qty: 60 RF: 0 acetaminophen [Tylenol Extra Strength] 500 mg tablet 1,000 mg PO TID PRN (Reason: Pain) Qty: 90 RF: 1 levothyroxine 25 mcg tablet 37.5 mcg PO QAM Qty: 135 RF: 3 gabapentin 600 mg tablet 300 mg PO BID Qty: 60 RF: 2 glipizide 10 mg tablet 5 mg PO BID RF: 0 Hold Instructions: per office meclizine 25 mg tablet 25 mg PO Q6H PRN (Reason: dizziness) Qty: 30 RF: 0 Xarelto 20 mg tablet 20 mg PO QAM RF: 0 cholecalciferol (vitamin D3) [Vitamin D3] 25 mcg (1,000 unit) Capsule 1,000 unit PO QAM RF: 0 diltiazem HCl [Taztia XT] 120 mg Capsule,Extended Release 24 Hr 120 mg PO QAM Qty: 90 RF: 3 amiodarone 200 mg tablet 200 mg PO QAM RF: 0 calcium 600 mg Capsule 1 mg PO DAILY RF: 0 buspirone 7.5 mg tablet 7.5 mg PO BID PRN (Reason: Anxiety) RF: 0 duloxetine 20 mg capsule,delayed release(DR/EC) 20 mg PO QAM RF: 0 duloxetine 60 mg capsule,delayed release(DR/EC) 60 mg PO QAM RF: 0 Referrals Referrals: Jarod Lovett MD [Primary Care Provider] -
[2020-10-25 16:35] LABS: Basophils # (auto) 0.02 K/uL (0-0.2); Basophils % (auto) 0.5 %; Eosinophils # (auto) 0.02 K/uL (0-0.5); Eosinophils % (auto) 0.5 %; Hematocrit (blood only) 28.6 % (37-47); Hemoglobin 9.3 g/dL (12.0-16.0); Immature Granulocytes # (auto) 0.02 K/uL (0.00-0.02); Immature Granulocytes % (auto) 0.5 %; Lymphocytes % (auto) 23.7 %; Mean Corpuscular Hgb Conc 32.5 g/dL (32-36); Mean Corpuscular Volume 89.1 fL (80-100); Mean Platelet Volume 10.7 fL (7.4-10.4); Monocytes # (auto) 0.39 K/uL (0.11-0.59); Monocytes % (auto) 10.3 %; Neutrophils # (auto) 2.44 K/uL (1.4-6.5); Neutrophils % (auto) 64.5 %; Platelet Count 246 K/uL (130-400); RDW Coefficient of Variation 20.7 % (11.5-14.5); RDW Standard Deviation 66.1 fL (36.4-46.3); Red Blood Count 3.21 M/uL (4.2-5.4); White Blood Count 3.79 K/uL (4.8-10.8)
--- NOTE | 2020-10-25 16:48 | CT Scan Report ---
CT head/brain wo con CLINICAL HISTORY: 70 years-old Female with fall eval for injury. Acute head injury status post fall TECHNIQUE: Multiple axial CT images of the head were obtained without contrast. A dose lowering tech nique was utilized adhering to the principles of ALARA. CT DOSE: 1290.15 mGy.cm COMPARISON: Head CT 09/27/2020 FINDINGS: No acute intracranial hemorrhage, midline shift, intracranial mass, hydrocephalus, territorial ischem ia or abnormal extra-axial collection. Age-related involutional changes. White matter hypodensities s uggestive of chronic microvascular ischemic disease. Senescent calcifications of the lentiform nuclei . The calvarium is intact. Left frontal scalp hematoma, 3.7 x 0.5 cm. No opaque foreign body. Prior lindsay ateral lens repair. The paranasal sinuses, mastoid air cells, and middle ear cavities are clear. IMPRESSION: 1. No acute intracranial abnormality or calvarial fracture. 2. Small left frontal scalp hematoma. ACT 112: Negative or not required by law. The above report was generated using voice recognition software. It may contain grammatical, syntax o r spelling errors. Electronically signed by: Jeremy Batres M.D. 10/25/2020 4:47 PM
--- NOTE | 2020-10-25 16:55 | CT Scan Report ---
CERVICAL SPINE CT CT DOSE: HISTORY: fall eval for injury TECHNIQUE: Multiaxial CT images of the cervical spine were performed and reformatted in the sagittal and coronal plane without the use of contrast. A dose lowering technique was utilized adhering to th e principles of ALARA. COMPARISON: Cervical spine CT 03/24/2020. FINDINGS: No fractures. Mild anterolisthesis of C5 and C6. The C5-C6 facets are fused. There is moder ate disc space narrowing at C5-C6. Prevertebral soft tissues and the C1-C2 interval are intact. No pn eumothorax. Left-sided pacemaker wires are partially visualized. There is also partially visualized r ight subclavian central venous catheter. IMPRESSION: No fractures within the cervical spine. ACT 112: Negative or not required by law. Electronically signed by: Shan Hollingsworth M.D. 10/25/2020 4:53 PM
[2020-10-25 16:57] LABS: Alanine Aminotransferase 48 U/L (12-78); Albumin Level 3.4 gm/dl (3.4-5.0); Aspartate Aminotransferase 26 U/L (15-37); BUN Creatinine Ratio 20.6 (10-20); Blood Urea Nitrogen 15 mg/dl (7-18); Calcium 8.5 mg/dl (8.5-10.1); Carbon Dioxide 28 mmol/L (21-32); Chloride 104 mmol/L (98-107); Est GFR (African American) 98.6 ml/min; Est GFR (Non-African American) 85.1 ml/min; Glucose 222 mg/dl (70-99); Potassium 3.8 mmol/L (3.5-5.1); Sodium 136 mmol/L (136-145)
[2020-10-25 17:08] LABS: Albumin Globulin Ratio 1.1 (0.9-2); Alkaline Phosphatase 104 U/L (45-117); Bilirubin,Total 0.5 mg/dl (0.2-1); Globulin 3.2 gm/dl (2.5-4.0); Total Protein 6.6 gm/dl (6.4-8.2); Troponin I < 0.015 ng/ml (0-0.045)
--- NOTE | 2020-10-25 17:08 | XRay Report ---
XR chest 1V portable HISTORY: 70 years-old Female weakness acute weakness COMPARISON: Chest radiograph 08/17/2020 TECHNIQUE: Portable AP view of the chest FINDINGS: Cardiac silhouette is upper limits of normal in size. Left subclavian pacer. Unchanged positioning of the right subclavian [id number] catheter. No pneumothorax, pleural effusion, airspace consolidati on or overt pulmonary edema. Ejection changes of the spine and right shoulder. Left shoulder total derek int arthroplasty. IMPRESSION: No acute process. ACT 112: Negative or not required by law. The above report was generated using voice recognition software. It may contain grammatical, syntax o r spelling errors. Electronically signed by: Jeremy Batres M.D. 10/25/2020 5:07 PM
[2020-10-25 17:12] LABS: Anisocytosis Present
--- NOTE | 2020-10-25 17:13 | XRay Report ---
XR wrist LT min 3V routine HISTORY: 70 years-old Female fall eval for injury acute left wrist pain status post fall COMPARISON: None TECHNIQUE: 3 views of the left wrist FINDINGS: Multifocal osteoarthritis, severe within the first carpal metacarpal joint and moderate within the ra diocarpal articulation. Chondrocalcinosis. Demineralized appearance of the bones. No acute fracture, dislocation, opaque foreign body or osseous erosion. IMPRESSION: 1. No acute fracture. 2. Multifocal osteoarthritis as above. ACT 112: Negative or not required by law. The above report was generated using voice recognition software. It may contain grammatical, syntax o r spelling errors. Electronically signed by: Jeremy Batres M.D. 10/25/2020 5:12 PM
--- NOTE | 2020-10-25 17:15 | XRay Report ---
XR pelvis 1-2V routine CLINICAL HISTORY: fall eval for injury. Pelvic pain. COMPARISON STUDY: Pelvis 07/10/2012. FINDINGS: Posterior decompression in fusion within the mid to lower lumbar spine. There are also bila teral total hip arthroplasties. The hardware appears intact. No fracture or dislocation within the pe lvis or hips. The sacrum appears intact. IMPRESSION: Postoperative changes as described above. No acute fractures within the pelvis or hips. ACT 112: Negative or not required by law. Electronically signed by: Shan Hollingsworth M.D. 10/25/2020 5:13 PM
[2020-10-25] MEDS ORDERED: ACETAMINOPHEN 325 MG TAB PO STA (17:40)
[2020-10-25 18:18] LABS: Appearance Urine Turbid (Clear); Bacteria Urine Automated 3+ (Negative); Bilirubin Urine Negative (Negative); Blood Urine Negative (Negative); Color Urine Dark Yellow; Glucose Urine UA Negative (Negative); Ketones Urine Trace (Negative); Leukocyte Esterase Urine 2+ (Negative); Nitrite Urine Negative (Negative); Protein Urine Trace (Negative); Specific Gravity Urine 1.025 (1.000-1.030); Urobilinogen Urine Negative (Negative); WBC Urine Automated >30 /hpf (0-5)
[2020-10-25 18:59] LABS: Calcium Oxalate Crystals Urine Present (None Prsent)
--- NOTE | 2020-10-25 20:30 | History & Physical Report ---
Date of Service October 25, 2020 Assessment & Plan (1) Acute head injury: s/p fall with trauma to head - CT head with scalp hematoma, CT cervical spine with no acute process. Patient is on Rivaroxaban anticoagulation for history of atrial fibrillation. No focal neurological deficits -Neuro checks with GCS q 4 hours -Fall precautions -PT/OT evaluation for placement needs -Continue wrist splint -Tramadol as needed for pain -Morphine as needed for pain Present on Admission?: Yes (2) Metastatic breast cancer: Noted. Patient to receive her final cycle of chemotherapy starting next Friday - then to have re-imaging Present on Admission?: Yes (3) Weakness of both legs: Patient with no focal weakness on my physical exam. She reports muscular weakness and giving out. Do not think she needs imaging of spinal cord - h/o metastatic cancer is concerning -PT/OT evaluation -Fall precautions Present on Admission?: Yes (4) Diabetes mellitus type 2, uncontrolled: Chronic -Continue Lantus 15u BID -ISS -Goal blood sugar 100 - 140 -Continue Lisinopril Present on Admission?: Yes (5) Atrial fibrillation: Chronic. Patient had both Diltiazem and Amiodarone on home list - has not filled them recently. Per review of notes, patient is on Diltiazem -Continue Diltiazem -Continue Rivaroxaban Present on Admission?: Yes (6) Hypothyroidism: Chronic -Continue Synthroid Present on Admission?: Yes (7) Hypercholesterolemia: Chronic -Continue Atorvastatin Present on Admission?: Yes (8) Depression: Chronic -Continue Buspirone -Continue Duloxetine Present on Admission?: Yes (9) UTI (urinary tract infection): Concern for UTI - patient is relatively immunocompromised given history of malignancy on chemotherapy -Ceftriaxone F/E/N - NSS at 80mL/hr x 1L, monitor electrolytes, CC diet as tolerated Ppx - On Rivaroxaban Code - Full Dispo -Admit to medical Present on Admission?: Yes History of Present Illness Chief Complaint: Falls Primary Care Provider: Quinn Lovett MD 70yo female with infiltrating DCIS of left breast, metastatic lung carcinoma on chemo presenting after a fall at home. Patient states that she falls frequently - almost every day. She states that since being on the chemotherapy she has a lot of muscular weakness and her legs give out frequently causing her to fall. She ambulates with a walker at all times. She is frequently unable to get up on her own and her family is unable to get her up. She calls a neighbor sometiimes to help her off the floor. Today patient was getting up from a chair and her legs gave out. She fell forward and struck her left frontal bone off a wooden floor. She nearly lost consciousness and was unable to get up after the fall. She also braced herself with her left hand and she has some discomfort there as well. Patient starts her final cycle of Chemotherpy next Friday for 3 week duration. No additional complaints at this time. Patient denies chest pain, palpitations, dizziness, numbness or focal weakness preceding or following her falls. ER Course: Tylenol Allergies Allergy/AdvReac Type Severity Reaction Status Date / Time metformin AdvReac Severe Verified 10/25/20 19:09 Home Medications Medication Instructions Recorded Confirmed Type cyanocobalamin (vitamin B-12) 1,000 mcg IM MONTHLY ea 02/04/18 10/25/20 History 1,000 mcg/mL injection kit multivitamin 1 tab PO QAM 02/04/18 10/25/20 History cholecalciferol (vitamin D3) 1,000 unit PO QAM 07/29/19 10/25/20 History [Vitamin D3] atorvastatin 40 mg tablet 40 mg PO HS #90 tab 11/29/19 10/25/20 Rx meclizine 25 mg tablet 25 mg PO Q6H PRN #30 tab 01/12/20 10/25/20 Rx diltiazem HCl [Taztia XT] 120 mg PO QAM #90 cap 04/06/20 10/25/20 Rx insulin glargine 100 unit/mL (3 31 unit SQ HS #15 ml 06/08/20 10/25/20 Rx mL) subcutaneous pen dulaglutide 0.75 mg/0.5 mL 0.75 mg SUBCUT WK #2 ml 06/20/20 10/25/20 Rx subcutaneous pen injector rivaroxaban 20 mg tablet 20 mg PO QAM 08/14/20 10/25/20 History pantoprazole 40 mg tablet,delayed 40 mg PO QAM #90 tab 09/07/20 10/25/20 Rx release amiodarone 200 mg tablet 200 mg PO QAM 09/21/20 10/25/20 History buspirone 7.5 mg PO BID PRN 09/27/20 10/25/20 History calcium 1 mg PO DAILY 09/27/20 10/25/20 History lisinopril 10 mg tablet 10 mg PO QAM #90 tab 10/09/20 10/25/20 Rx acetaminophen 500 mg tablet 1,000 mg PO TID PRN #90 tab 10/17/20 10/25/20 Rx tramadol 50 mg tablet 50 mg PO Q12H PRN #60 tab 10/17/20 10/25/20 Rx levothyroxine 25 mcg tablet 37.5 mcg PO QAM #135 tab 10/24/20 10/25/20 Rx duloxetine 20 mg PO QAM 10/25/20 10/25/20 History duloxetine 60 mg PO QAM 10/25/20 10/25/20 History gabapentin 600 mg tablet 300 mg PO BID #60 tab 10/25/20 10/25/20 Rx glipizide 10 mg tablet 5 mg PO BID tab 10/25/20 10/25/20 History Past Med/Surg History Medical History Anxiety Aortic stenosis Mild AV stenosis per 12/2019 ECHO. (MERLENE= 1.6cm2; AV mean gradient= 7.8mmHg; AV max velocity= 1.939 m/s) Atrial fibrillation hx Atrial flutter hx Bilateral hip bursitis Cervical spine disease Chronic anemia Chronic pain Degenerative disc disease Depression Diabetes mellitus, type 2 IDDM Gastroesophageal reflux disease Hx of cardiac pacemaker [facility]. [employer] device. follows with Dr Ramires Hx of tachycardia-bradycardia syndrome reason for pacemaker Hypercholesterolemia Hypothyroidism Infiltrating ductal carcinoma of left breast Initially dx'ed in 2016- s/p lumpectomy, XRT and anastrozole Metastatic breast cancer March 2020 Liver mass Pt denies but 05/17/20 PET scan shows 2.5 right hepatic lobe mass consistent with known hepatic metastasis Metastatic lung carcinoma Obstructive sleep apnea does not wear machine Peripheral neuropathy Surgical History H/O bilateral hip replacements History of section History of colonoscopy History of evacuation of hematoma (08/30/13) Hematoma right breast and right chest 08/31/13 Dr. Shah History of total knee arthroplasty bilateral Port-A-Cath in place (06/13/20) Insertion of Mediport Right Subclavian Dr. Shah 06/13/2020 Status post appendectomy Status post arthroscopy of left shoulder Status post gastric bypass for obesity Status post laparoscopic cholecystectomy Status post lumbar spine surgery for decompression of spinal cord Status post panniculectomy Status post partial mastectomy of left breast Status post placement of cardiac pacemaker Status post repair of ventral hernia Status post total abdominal hysterectomy and bilateral salpingo-oophorectomy Status post total hip replacement, bilateral Family History Unknown Breast cancer Emphysema lung Mother Diabetes Heart disease Father Heart disease Other No family history of adverse response to anesthesia Denies family history of Ovarian cancer Prostate cancer Coronary heart disease Colorectal cancer Social History Smoking Status: Former smoker Tobacco Type: Cigarettes packs per day: 2; Second Hand Exposure: Yes; Hx Alcohol Use: No Hx Substance Use: No Preferred Language: Irish Communication Ability: Effective Hearing Ability: Normal International Sourcing Manager Required: No Beliefs That Will Affect Care: None marital status: Current Living Situation: Spouse current occupational status: retired Other Information That Helps Us Care for You: No Feels Safe at Home: Yes Safety Concerns: Feels Safe At This Time Childhood Exposure to Second-Hand Smoke: Yes caffeine: Yes Dental Care, Regularly: No Physical Activity Frequency: 1-2 Times per Week Seatbelt Use: always Sunscreen Use: No Assistive Devices: Brace/Splint/Immobilizer, Denture - Upper, Denture - Lower, Glasses and Walker Review of Systems Review of Systems: All systems reviewed & are unremarkable except as noted in HPI & below Physical Exam Physical Exam: General: patient resting comfortably, NAD, non-toxic in appearance, AA&O x 4 Skin: warm, dry, intact, large bruise on left frontal bone HEENT: Head/facial trauma following fall, bruising to left frontal bone, facial bones stable, PERRL, EOMI, anicteric sclera, conjunctiva without injection, external ear normal to inspection and nontender, nares patent, moist mucus membranes, dentition intact, no oropharyngeal lesions, neck supple, trachea midline, no LAD, no thyromegaly, no JVD Heart: +S1/S2, regular, 3/6 STEF across precordium Lungs: equal air entry bilaterally, no rales/rhonchi/wheezes Abd: +BS, soft, NT/ND, no masses/organomegaly/ascites Ext: warm, 2+ pulses in UE/LE bilaterally, no clubbing/cyanosis or edema, left wrist in brace Neuro: nonfocal, patient AA&O x 4, speech intact, no facial droop, moving all ex tremities on command with equal strength 5/5 Results & Data Results & Data ([facility]) Vital Signs (Past 12 Hours) Vital Signs Temp Pulse Resp BP Pulse Ox 10/25/20 19:31 81 15 144/65 H 97 10/25/20 19:30 84 20 100 10/25/20 19:00 63 18 100 10/25/20 18:31 61 15 135/69 100 10/25/20 18:30 60 22 99 10/25/20 18:07 71 23 149/62 H 10/25/20 18:04 82 20 10/25/20 17:31 61 22 96/64 L 99 10/25/20 17:30 64 22 99 10/25/20 17:05 62 94 10/25/20 17:00 62 22 135/64 97 10/25/20 16:30 63 13 100 10/25/20 16:01 64 17 105/68 96 10/25/20 16:00 65 19 94 10/25/20 15:22 36.7 C 70 20 95 Laboratory Results Laboratory Results WBC 3.79 K/uL (4.8-10.8) L 10/25/20 16:12 RBC 3.21 M/uL (4.2-5.4) L 10/25/20 16:12 Hgb 9.3 g/dL (12.0-16.0) L 10/25/20 16:12 Hct 28.6 % (37-47) L 10/25/20 16:12 MCV 89.1 fL (80-100) 10/25/20 16:12 MCH 29.0 pg (25-34) 10/25/20 16:12 MCHC 32.5 g/dL (32-36) 10/25/20 16:12 RDW Std Deviation 66.1 fL (36.4-46.3) H 10/25/20 16:12 RDW Coeff of Thompson 20.7 % (11.5-14.5) H 10/25/20 16:12 Plt Count 246 K/uL (130-400) 10/25/20 16:12 MPV 10.7 fL (7.4-10.4) H 10/25/20 16:12 Immature Gran % (Auto) 0.5 % 10/25/20 16:12 Neut % (Auto) 64.5 % 10/25/20 16:12 Lymph % (Auto) 23.7 % 10/25/20 16:12 [place] % (Auto) 10.3 % 10/25/20 16:12 Eos % (Auto) 0.5 % 10/25/20 16:12 Baso % (Auto) 0.5 % 10/25/20 16:12 Neut # (Auto) 2.44 K/uL (1.4-6.5) 10/25/20 16:12 Lymph # (Auto) 0.90 K/uL (1.2-3.4) L 10/25/20 16:12 [place] # (Auto) 0.39 K/uL (0.11-0.59) 10/25/20 16:12 Eos # (Auto) 0.02 K/uL (0-0.5) 10/25/20 16:12 Baso # (Auto) 0.02 K/uL (0-0.2) 10/25/20 16:12 Immature Gran # (Auto) 0.02 K/uL (0.00-0.02) 10/25/20 16:12 Anisocytosis Present 10/25/20 16:12 Sodium 136 mmol/L (136-145) 10/25/20 16:12 Potassium 3.8 mmol/L (3.5-5.1) 10/25/20 16:12 Chloride 104 mmol/L (98-107) 10/25/20 16:12 Carbon Dioxide 28 mmol/L (21-32) 10/25/20 16:12 Anion Gap 4.0 (3-11) 10/25/20 16:12 BUN 15 mg/dl (7-18) 10/25/20 16:12 Creatinine 0.71 mg/dl (0.6-1.2) 10/25/20 16:12 Est Cr Clr Drug Dosing Not Reportable 10/25/20 16:12 Est GFR ( Amer) 98.6 ml/min 10/25/20 16:12 Est GFR (Non-Af Amer) 85.1 ml/min 10/25/20 16:12 BUN/Creatinine Ratio 20.6 (10-20) H 10/25/20 16:12 Glucose 222 mg/dl (70-99) H 10/25/20 16:12 POC Glucose 263 mg/dl (70-99) H 10/25/20 21:29 Calcium 8.5 mg/dl (8.5-10.1) 10/25/20 16:12 Phosphorus 3.8 mg/dl (2.5-4.9) 10/25/20 16:12 Magnesium 1.6 mg/dl (1.8-2.4) L 10/25/20 16:12 Total Bilirubin 0.5 mg/dl (0.2-1) 10/25/20 16:12 AST 26 U/L (15-37) 10/25/20 16:12 ALT 48 U/L (12-78) 10/25/20 16:12 Alkaline Phosphatase 104 U/L (45-117) 10/25/20 16:12 Troponin I < 0.015 ng/ml (0-0.045) 10/25/20 16:12 Total Protein 6.6 gm/dl (6.4-8.2) 10/25/20 16:12 Albumin 3.4 gm/dl (3.4-5.0) 10/25/20 16:12 Globulin 3.2 gm/dl (2.5-4.0) 10/25/20 16:12 Albumin/Globulin Ratio 1.1 (0.9-2) 10/25/20 16:12 TSH 2.410 uIu/ml (0.300-4.500) 10/25/20 16:12 Urine Color Dark Yellow 10/25/20 15:57 Urine Appearance Turbid (Clear) A 10/25/20 15:57 Urine pH 5.0 (4.5-7.5) 10/25/20 15:57 Ur Specific [place] 1.025 (1.000-1.030) 10/25/20 15:57 Urine Protein Trace (Negative) H 10/25/20 15:57 Urine Glucose (UA) Negative (Negative) 10/25/20 15:57 Urine Ketones Trace (Negative) H 10/25/20 15:57 Urine Blood Negative (Negative) 10/25/20 15:57 Urine Nitrite Negative (Negative) 10/25/20 15:57 Urine Bilirubin Negative (Negative) 10/25/20 15:57 Urine Urobilinogen Negative (Negative) 10/25/20 15:57 Ur Leukocyte Esterase 2+ (Negative) H 10/25/20 15:57 Urine WBC (Auto) >30 /hpf (0-5) H 10/25/20 15:57 Urine RBC (Auto) 5-10 /hpf (0-4) H 10/25/20 15:57 U Hyaline Cast (Auto) 10-30 /lpf (0-5) H 10/25/20 15:57 U Epithel Cells (Auto) 10-20 /lpf (0-5) H 10/25/20 15:57 Urine Bacteria (Auto) 3+ (Negative) H 10/25/20 15:57 Urine Crystals Not Reportable 10/25/20 15:57 Calcium Oxalate Crystal Present (None Prsent) A 10/25/20 15:57 COVID-19 Eval Order Covid19 at [facility] 10/25/20 17:00 SARS-CoV-2 (PCR) NEGATIVE (Negative) 10/25/20 17:[address] 10/25/20 15:[address] DOSE: HISTORY: fall eval for injury TECHNIQUE: Multiaxial CT images of the cervical spine were performed and reformatted in the sagittal and coronal plane without the use of contrast. A dose lowering technique was utilized adhering to the principles of ALARA. COMPARISON: Cervical spine CT 03/24/2020. FINDINGS: No fractures. Mild anterolisthesis of C5 and C6. The C5-C6 facets are fused. There is moderate disc space narrowing at C5-C6. Prevertebral soft tissues and the C1-C2 interval are intact. No pneumothorax. Left-sided pacemaker wires are partially visualized. There is also partially visualized right sub clavian central venous catheter. IMPRESSION: No fractures within the cervical spine. ACT 112: Negative or not required by law. Electronically signed by: Shan Hollingsworth M.D. 10/25/2020 4:53 PM Chest X-Ray 10/25/20 15:57 XR chest 1V portable HISTORY: 70 years-old Female weakness acute weakness COMPARISON: Chest radiograph 08/17/2020 TECHNIQUE: Portable AP view of the chest FINDINGS: Cardiac silhouette is upper limits of normal in size. Left subclavian pacer. Unchanged positioning of the right subclavian [id number] catheter. No pneumothorax, pleural effusion, airspace consolidation or overt pulmonary edema. Ejection changes of the spine and right shoulder. Left shoulder total joint arthroplasty. IMPRESSION: No acute process. ACT 112: Negative or not required by law. The above report was generated using voice recognition software. It may contain grammatical, syntax or spelling errors. Electronically signed by: Jeremy Batres M.D. 10/25/2020 5:[address] 10/25/20 15:57 CT head/brain wo con CLINICAL HISTORY: 70 years-old Female with fall eval for injury. Acute head injury status post fall TECHNIQUE: Multiple axial CT images of the head were obtained without contrast. A dose lowering technique was utilized adhering to the principles of ALARA. CT DOSE: 1290.15 mGy.cm COMPARISON: Head CT 09/27/2020 FINDINGS: No acute intracranial hemorrhage, midline shift, intracranial mass, hydrocephalus, territorial ischemia or abnormal extra-axial collection. Age- related involutional changes. White matter hypodensities suggestive of chronic microvascular ischemic disease. Senescent calcifications of the lentiform nuclei. The calvarium is intact. Left frontal scalp hematoma, 3.7 x 0.5 cm. No opaque foreign body. Prior bilateral lens repair. The paranasal sinuses, mastoid air cells, and middle ear cavities are clear. IMPRESSION: 1. No acute intracranial abnormality or calvarial fracture. 2. Small left frontal scalp hematoma. ACT 112: Negative or not required by law. The above report was generated using voice recognition software. It may contain grammatical, syntax or spelling errors. Electronically signed by: Jeremy Batres M.D. 10/25/2020 4:47 PM Pelvis X-Ray 10/25/20 15:57 XR pelvis 1-2V routine CLINICAL HISTORY: fall eval for injury. Pelvic pain. COMPARISON STUDY: Pelvis 07/10/2012. FINDINGS: Posterior decompression in fusion within the mid to lower lumbar spine. There are also bilateral total hip arthroplasties. The hardware appears intact. No fracture or dislocation within the pelvis or hips. The sacrum appears intact. IMPRESSION: Postoperative changes as described above. No acute fractures within the pelvis or hips. ACT 112: Negative or not required by law. Electronically signed by: Shan Hollingsworth M.D. 10/25/2020 5:13 PM Wrist X-Ray 10/25/20 16:02 XR wrist LT min 3V routine HISTORY: 70 years-old Female fall eval for injury acute left wrist pain status post fall COMPARISON: None TECHNIQUE: 3 views of the left wrist FINDINGS: Multifocal osteoarthritis, severe within the first carpal metacarpal joint and moderate within the radiocarpal articulation. Chondrocalcinosis. Demineralized appearance of the bones. No acute fracture, dislocation, opaque foreign body or osseous erosion. IMPRESSION: 1. No acute fracture. 2. Multifocal osteoarthritis as above. ACT 112: Negative or not required by law. The above report was generated using voice recognition software. It may contain grammatical, syntax or spelling errors. Electronically signed by: Jeremy Batres M.D. 10/25/2020 5:12 PM ECG Additional Comments: EKG atrial paced with premature atrial complexes Code Status & VTE Plan VTE Prophylaxis Plan VTE Prophylaxis will be ordered: Yes PG Care Time/CCT Total # of Minutes Spent Total Time Spent with Patient: Total time spent is greater than 50% in coordination of care (as documented) at patient's floor/unit and/or counseling patient: Coding Level of Care Code 53692 Initial Inpt Care Lvl 3 Diagnoses Acute head injury S09.90XA Encounter type: initial encounter Metastatic breast cancer C50.919 Weakness of both legs R29.898 Diabetes mellitus type 2, uncontrolled E11.65 Glycemic state: with hyperglycemia Atrial fibrillation I48.91 Atrial fibrillation type: unspecified Hypothyroidism E03.9 Hypothyroidism type: unspecified Hypercholesterolemia E78.00 Depression F32.9 Depression Type: unspecified UTI (urinary tract infection) N39.0 Urinary tract infection type: site unspecified Hematuria presence: without hematuria (1) Acute head injury Encounter type: initial encounter Qualified Code(s): S09.90XA - Unspecified injury of head, initial encounter (2) Diabetes mellitus type 2, uncontrolled Glycemic state: with hyperglycemia Qualified Code(s): E11.65 - Type 2 diabetes mellitus with hyperglycemia (3) Atrial fibrillation Atrial fibrillation type: unspecified Qualified Code(s): I48.91 - Unspecified atrial fibrillation (4) Hypothyroidism Hypothyroidism type: unspecified Qualified Code(s): E03.9 - Hypothyroidism, unspecified (5) Depression Depression Type: unspecified Qualified Code(s): F32.9 - Major depressive disorder, single episode, unspecified (6) UTI (urinary tract infection) Urinary tract infection type: site unspecified Hematuria presence: without hematuria Qualified Code(s): N39.0 - Urinary tract infection, site not specified
[2020-10-25] MEDS ORDERED: SODIUM CHLORIDE 0.9% 1000ML 1,000 ML IV SCH (21:23)
[2020-10-25] MEDS ORDERED: ONDANSETRON INJ 2 MG/ML 2 ML VIAL IV PRN (21:23)
[2020-10-25] MEDS ORDERED: CARBOHYDRATES FOR HYPOGLYCEMIA PO PRN (21:23)
[2020-10-25] MEDS ORDERED: GLUCOSE 40% GEL 15 GM TUBE PO PRN (21:23)
[2020-10-25] MEDS ORDERED: GLUCOSE 10 TABS/TUBE PO PRN (21:23)
[2020-10-25] MEDS ORDERED: DEXTROSE 50% 50 ML SYRINGE IV PRN (21:23)
[2020-10-25] MEDS ORDERED: traMADol HCL 50 MG TABLET PO PRN (21:23)
[2020-10-25] MEDS ORDERED: DOCUSATE SODIUM 100 MG CAP PO PRN (21:23)
[2020-10-25] MEDS ORDERED: GLUCAGON FOR INJ 1 MG VIAL SQ PRN (21:23)
[2020-10-25] MEDS ORDERED: ACETAMINOPHEN 500 MG TAB PO PRN (22:00)
[2020-10-25] MEDS ORDERED: MECLIZINE HCL 25 MG TAB PO PRN (22:01)
[2020-10-25 22:11] LABS: Magnesium 1.6 mg/dl (1.8-2.4); Phosphorus 3.8 mg/dl (2.5-4.9)
[2020-10-25] MEDS: MoRPHine SULFATE 2 MG/ML CARP IV PRN (22:49)
[2020-10-25] MEDS: HEPARIN 100 UNIT/ML 5ML FLUSH FLUSH PRN (22:57)
[2020-10-25] MEDS: ATORVASTATIN 40 MG TAB PO SCH (22:59)
[2020-10-25] MEDS: GABAPENTIN 600 MG TAB PO SCH (23:00)
[2020-10-25] MEDS: INSULIN ASPART 100 UNITS/ML 3 ML PEN SC SCH (23:01)
[2020-10-25] MEDS: INSULIN GLARGINE SOLOSTAR 100 UNITS/ML 3 ML PEN SC SCH (23:03)
[2020-10-25] MEDS: cefTRIAXone SODIUM 2,000 MG in DEXTROSE 5% 50 ML IV SCH (23:39)
[2020-10-26] MEDS: MoRPHine SULFATE 2 MG/ML CARP IV PRN ×3 (03:13→21:02)
[2020-10-26] MEDS: INSULIN ASPART 100 UNITS/ML 3 ML PEN SC SCH ×5 (03:14→21:03)
[2020-10-26 06:03] LABS: Basophils # (auto) 0.01 K/uL (0-0.2); Basophils % (auto) 0.2 %; Eosinophils # (auto) 0.02 K/uL (0-0.5); Eosinophils % (auto) 0.5 %; Hematocrit (blood only) 26.7 % (37-47); Hemoglobin 8.7 g/dL (12.0-16.0); Immature Granulocytes # (auto) 0.01 K/uL (0.00-0.02); Immature Granulocytes % (auto) 0.2 %; Lymphocytes # (auto) 0.93 K/uL (1.2-3.4); Lymphocytes % (auto) 21.6 %; Mean Corpuscular Hgb Conc 32.6 g/dL (32-36); Mean Platelet Volume 10.7 fL (7.4-10.4); Monocytes # (auto) 0.59 K/uL (0.11-0.59); Monocytes % (auto) 13.7 %; Neutrophils # (auto) 2.74 K/uL (1.4-6.5); Neutrophils % (auto) 63.8 %; Platelet Count 232 K/uL (130-400); RDW Standard Deviation 67.8 fL (36.4-46.3)
[2020-10-26 06:38] LABS: Anisocytosis Present; Giant Platelets 1+; Tear Drop Cells 1+
[2020-10-26 06:40] LABS: Alanine Aminotransferase 40 U/L (12-78); Albumin Level 2.9 gm/dl (3.4-5.0); Aspartate Aminotransferase 19 U/L (15-37); BUN Creatinine Ratio 26.7 (10-20); Bilirubin Direct < 0.1 mg/dl (0-0.2); Blood Urea Nitrogen 14 mg/dl (7-18); Carbon Dioxide 31 mmol/L (21-32); Chloride 109 mmol/L (98-107); Creatinine Clr Calc Pharmacy 103.3 ml/min; Est GFR (African American) 111.3 ml/min; Est GFR (Non-African American) 96.1 ml/min; Glucose 60 mg/dl (70-99); Potassium 3.4 mmol/L (3.5-5.1); Sodium 142 mmol/L (136-145)
[2020-10-26 06:42] LABS: Alkaline Phosphatase 92 U/L (45-117); Bilirubin,Total 0.3 mg/dl (0.2-1); Total Protein 5.8 gm/dl (6.4-8.2)
[2020-10-26] MEDS ORDERED: AMIODARONE 200 MG TAB PO SCH (09:00)
[2020-10-26] MEDS: RIVAROXABAN 20 MG TAB PO SCH (09:09)
[2020-10-26] MEDS: INSULIN GLARGINE SOLOSTAR 100 UNITS/ML 3 ML PEN SC SCH ×2 (09:09→21:04)
[2020-10-26] MEDS: busPIRone 7.5 MG TAB PO PRN (09:10)
[2020-10-26] MEDS: DULoxetine HCL 60 MG CAP PO SCH (09:10)
[2020-10-26] MEDS: CHOLECALCIFEROL 1,000 UNITS 25 MCG TAB PO SCH (09:10)
[2020-10-26] MEDS: DULoxetine HCL 20 MG CAP PO SCH (09:10)
[2020-10-26] MEDS: LEVOTHYROXINE SODIUM 25 MCG TABLET PO SCH (09:11)
[2020-10-26] MEDS: lisinopril 10 MG TAB PO SCH (09:11)
[2020-10-26] MEDS: dilTIAZem ER 120 MG CAPCR PO SCH (09:12)
[2020-10-26] MEDS: PANTOprazole 40 MG TAB PO SCH (09:13)
[2020-10-26] MEDS: GABAPENTIN 600 MG TAB PO SCH ×2 (09:16→21:07)
[2020-10-26] MEDS: ACETAMINOPHEN W/CODEINE #3 1 TAB PO PRN ×3 (09:28→18:21)
[2020-10-26] MEDS: HEPARIN 100 UNIT/ML 5ML FLUSH FLUSH PRN ×2 (12:19→16:31)
[2020-10-26] MEDS: cefTRIAXone SODIUM 2,000 MG in DEXTROSE 5% 50 ML IV SCH (21:02)
[2020-10-26] MEDS: ATORVASTATIN 40 MG TAB PO SCH (21:07)
[2020-10-27] MEDS: ACETAMINOPHEN W/CODEINE #3 1 TAB PO PRN ×4 (00:16→21:39)
[2020-10-27] MEDS: MoRPHine SULFATE 2 MG/ML CARP IV PRN ×4 (01:22→23:20)
[2020-10-27] MEDS: LEVOTHYROXINE SODIUM 25 MCG TABLET PO SCH (06:12)
--- NOTE | 2020-10-27 06:20 | Electrocardiogram Report ---
Test Reason : Blood Pressure : / mmHG Vent. Rate : 063 BPM Atrial Rate : 063 BPM P-R Int : 182 ms QRS Dur : 092 ms QT Int : 442 ms P-R-T Axes : 040 024 037 degrees QTc Int : 452 ms Atrial-paced rhythm with Premature atrial complexes with Aberrant conduction Abnormal ECG When compared with ECG of 17-AUG-2020 19:09, Electronic atrial pacemaker has replaced Atrial fibrillation Vent. rate has decreased BY 36 BPM Confirmed by Lakhwinder Acosta ([id number]) on 10/27/2020 6:19:57 AM Referred By: REFERRED SELF Confirmed By:Lakhwinder Acosta
--- NOTE | 2020-10-27 07:31 | Hospitalist Progress Note ---
Date of Service October 26, 2020 Assessment & Plan (1) Recurrent falls: Suspect from vertigo from description. Recommend outpatient vestibular therapy. Orthostatic to rule this out as taking (2) Acute head injury: s/p fall with trauma to head - CT head with scalp hematoma, CT cervical spine with no acute process. Patient is on Rivaroxaban anticoagulation for history of atrial fibrillation. No focal neurological deficits -Neuro checks with GCS q 4 hours -Fall precautions -PT/OT evaluation for placement needs -Continue wrist splint -Tramadol as needed for pain -Morphine as needed for pain -hold Xarelto (3) UTI (urinary tract infection): Concern for UTI - patient is relatively immunocompromised given history of malignancy on chemotherapy. Dysuria. -Continue IV ceftriaxone pending urine culture (4) Left wrist pain: No # on XR but substantial difficulty with all wrist movement. Will consult orthopedics for further advice regarding possible tendon/muscle injury. (5) Metastatic breast cancer: Noted. Patient to receive her final cycle of chemotherapy starting next Friday - then to have re-imaging (6) Weakness of both legs: Patient with no focal weakness on my physical exam. She reports muscular weakness and giving out. Do not think she needs imaging of spinal cord - h/o metastatic cancer is concerning -PT/OT evaluation -Fall precautions (7) Diabetes mellitus type 2, uncontrolled: Chronic -Lantus 15 units BID - hypoglycemia, will reduce this to 0-10 units BID based on glucose levels -ISS -Goal blood sugar 100 - 140 -Continue Lisinopril (8) Atrial fibrillation: Chronic. Patient had both Diltiazem and Amiodarone on home list - has not filled them recently. Per review of notes, patient is on Diltiazem -Continue Diltiazem -Hold Xarelto due to hematoma (9) Normocytic anemia: Hgb 9.3 -> 8.7. Repeat with AM labs. ?from chemotherapy. Will get further workup if continues to decrease. (10) Depression: Chronic -Continue Buspirone -Continue Duloxetine (11) Hypercholesterolemia: Chronic -Continue Atorvastatin (12) Hypothyroidism: Chronic. TSH WNL 10/25 -Continue Synthroid Admission and Anticipated Discharge Date Admission Date: October 25, 2020 Subjective Ongoing vertigo whenever she moves her head. She blames this on her chemotherapy. Limiting her rehab and wishes to fo to SNF on discharge as unsafe to go home with the number of falls she has been having. Very unsteady with OT/PT Review of Systems Review of Systems: All systems reviewed & are unremarkable except as noted in HPI & below Physical Exam Constitutional: WD/WN, vitals as above Eyes: PERRL, conjunctivae normal, anicteric sclerae ENMT: external ear and nose normal, oropharynx normal Respiratory: normal respiratory effort, lungs clear to auscultation Cardiovascular: Rate/Rhythm: regular rate and + irregularly irregular Heart Sounds: no murmur Vessels: no JVD Extremities: normal capillary refill and + pedal edema (Trace b/l ankles); no calf tenderness Gastrointestinal (Abdomen): normal bowel sounds, soft, nontender, no hepatosplenomegaly Musculoskeletal: no cyanosis or clubbing, extremities motor strength 5/5 Skin: Trauma: + hematoma (left frontal scalp) Neurologic: moves all extremities and awake; not confused Psychiatric: A+Ox3, euthymic affect Results & Data Results & Data ([facility]) Vital Signs (Past 12 Hours) Vital Signs Temp Pulse Resp BP Pulse Ox 10/26/20 23:18 36.8 C 75 18 118/85 96 PG Care Time/CCT Total # of Minutes Spent Total Time Spent with Patient: Total time spent is greater than 50% in coordination of care (as documented) at patient's floor/unit and/or counseling patient: Coding Level of Care Code 95724 Subseq Hosp Care Lvl 2 Diagnoses Recurrent falls R29.6 Acute head injury S09.90XA Encounter type: initial encounter UTI (urinary tract infection) N39.0 Urinary tract infection type: site unspecified Hematuria presence: without hematuria Left wrist pain M25.532 Metastatic breast cancer C50.919 Weakness of both legs R29.898 Diabetes mellitus type 2, uncontrolled E11.65 Glycemic state: with hyperglycemia Atrial fibrillation I48.91 Atrial fibrillation type: unspecified Normocytic anemia D64.9 Depression F32.9 Depression Type: unspecified Hypercholesterolemia E78.00 Hypothyroidism E03.9 Hypothyroidism type: unspecified (1) Acute head injury Encounter type: initial encounter Qualified Code(s): S09.90XA - Unspecified injury of head, initial encounter (2) Diabetes mellitus type 2, uncontrolled Glycemic state: with hyperglycemia Qualified Code(s): E11.65 - Type 2 diabetes mellitus with hyperglycemia (3) Atrial fibrillation Atrial fibrillation type: unspecified Qualified Code(s): I48.91 - Unspecified atrial fibrillation (4) Hypothyroidism Hypothyroidism type: unspecified Qualified Code(s): E03.9 - Hypothyroidism, unspecified (5) Depression Depression Type: unspecified Qualified Code(s): F32.9 - Major depressive disorder, single episode, unspecified (6) UTI (urinary tract infection) Urinary tract infection type: site unspecified Hematuria presence: without hematuria Qualified Code(s): N39.0 - Urinary tract infection, site not specified
--- NOTE | 2020-10-27 07:43 | Orthopedic Consultation ---
Date of Service October 27, 2020 Assessment & Plan (1) Left wrist pain: Patient has left wrist pain after fall consistent with a wrist sprain. She got some underlying arthritis and chondrocalcinosis. No signs of acute fracture. She already has a cock-up wrist splint. Would recommend she wear this for the next week to 2 weeks for comfort. She can discard after that. There is no need for further orthopedic follow-up. There is no restrictions needed. Any orthopedic questions can be directly at [phone] thanks History of Present Illness Reason for Consultation: . Left wrist pain and swelling after a fall Requesting Physician: . Attending Physician: Kris Person MD . Patient is a 70-year-old female known to me from multiple orthopedic issues in the past few presents to the hospital after a fall. She is currently undergoing treatment for metastatic breast cancer on chemotherapy and is having multiple falls. As she apparently hit her head was admitted for this. She is complaining some mild wrist pain. Hurts with movement. Seems like it is improved a little over the past 24 hours. Allergies Allergy/AdvReac Type Severity Reaction Status Date / Time metformin AdvReac Severe Verified 10/25/20 19:09 Home Medications Medication Instructions Recorded Confirmed Type cyanocobalamin (vitamin B-12) 1,000 mcg IM MONTHLY ea 02/04/18 10/25/20 History 1,000 mcg/mL injection kit multivitamin 1 tab PO QAM 02/04/18 10/25/20 History cholecalciferol (vitamin D3) 1,000 unit PO QAM 07/29/19 10/25/20 History [Vitamin D3] atorvastatin 40 mg tablet 40 mg PO HS #90 tab 11/29/19 10/25/20 Rx meclizine 25 mg tablet 25 mg PO Q6H PRN #30 tab 01/12/20 10/25/20 Rx diltiazem HCl [Taztia XT] 120 mg PO QAM #90 cap 04/06/20 10/25/20 Rx insulin glargine 100 unit/mL (3 31 unit SQ HS #15 ml 06/08/20 10/25/20 Rx mL) subcutaneous pen dulaglutide 0.75 mg/0.5 mL 0.75 mg SUBCUT WK #2 ml 06/20/20 10/25/20 Rx subcutaneous pen injector rivaroxaban 20 mg tablet 20 mg PO QAM 08/14/20 10/25/20 History pantoprazole 40 mg tablet,delayed 40 mg PO QAM #90 tab 09/07/20 10/25/20 Rx release amiodarone 200 mg tablet 200 mg PO QAM 09/21/20 10/25/20 History buspirone 7.5 mg PO BID PRN 09/27/20 10/25/20 History calcium 1 mg PO DAILY 09/27/20 10/25/20 History lisinopril 10 mg tablet 10 mg PO QAM #90 tab 10/09/20 10/25/20 Rx acetaminophen 500 mg tablet 1,000 mg PO TID PRN #90 tab 10/17/20 10/25/20 Rx tramadol 50 mg tablet 50 mg PO Q12H PRN #60 tab 10/17/20 10/25/20 Rx levothyroxine 25 mcg tablet 37.5 mcg PO QAM #135 tab 10/24/20 10/25/20 Rx duloxetine 20 mg PO QAM 10/25/20 10/25/20 History duloxetine 60 mg PO QAM 10/25/20 10/25/20 History gabapentin 600 mg tablet 300 mg PO BID #60 tab 10/25/20 10/25/20 Rx glipizide 10 mg tablet 5 mg PO BID tab 10/25/20 10/25/20 History Past Med/Surg History Medical History Anxiety Aortic stenosis Mild AV stenosis per 12/2019 ECHO. (MERLENE= 1.6cm2; AV mean gradient= 7.8mmHg; AV max velocity= 1.939 m/s) Atrial fibrillation hx Atrial flutter hx Bilateral hip bursitis Cervical spine disease Chronic anemia Chronic pain Degenerative disc disease Depression Diabetes mellitus, type 2 IDDM Gastroesophageal reflux disease Hx of cardiac pacemaker [facility]. [employer] device. follows with Dr Ramires Hx of tachycardia-bradycardia syndrome reason for pacemaker Hypercholesterolemia Hypothyroidism Infiltrating ductal carcinoma of left breast Initially dx'ed in 2016- s/p lumpectomy, XRT and anastrozole Metastatic breast cancer March 2020 Liver mass Pt denies but 05/17/20 PET scan shows 2.5 right hepatic lobe mass consistent with known hepatic metastasis Metastatic lung carcinoma Obstructive sleep apnea does not wear machine Peripheral neuropathy Surgical History H/O bilateral hip replacements History of section History of colonoscopy History of evacuation of hematoma (08/30/13) Hematoma right breast and right chest 08/31/13 Dr. Shah History of total knee arthroplasty bilateral Port-A-Cath in place (06/13/20) Insertion of Mediport Right Subclavian Dr. Shah 06/13/2020 Status post appendectomy Status post arthroscopy of left shoulder Status post gastric bypass for obesity Status post laparoscopic cholecystectomy Status post lumbar spine surgery for decompression of spinal cord Status post panniculectomy Status post partial mastectomy of left breast Status post placement of cardiac pacemaker Status post repair of ventral hernia Status post total abdominal hysterectomy and bilateral salpingo-oophorectomy Status post total hip replacement, bilateral Family History Unknown Breast cancer Emphysema lung Mother Diabetes Heart disease Father Heart disease Other No family history of adverse response to anesthesia Denies family history of Ovarian cancer Prostate cancer Coronary heart disease Colorectal cancer Social History Smoking Status: Former smoker Tobacco Type: Cigarettes packs per day: 2; Second Hand Exposure: Yes; Hx Alcohol Use: No Hx Substance Use: No Preferred Language: Egyptian Communication Ability: Effective Hearing Ability: Normal Store Team Member Required: No Beliefs That Will Affect Care: None marital status: Current Living Situation: Spouse current occupational status: retired Other Information That Helps Us Care for You: No Feels Safe at Home: Yes Safety Concerns: Feels Safe At This Time Childhood Exposure to Second-Hand Smoke: Yes caffeine: Yes Dental Care, Regularly: No Physical Activity Frequency: 1-2 Times per Week Seatbelt Use: always Sunscreen Use: No Assistive Devices: Walker Review of Systems All systems reviewed & are unremarkable except as noted in HPI & below. Physical Exam . Physical examination of the left wrist and hand reveal some mild diffuse swelling. She can extend and flex her wrist relatively normally. Is a little bit painful particular the extremes of motion. She has good supination pronat ion with some mild discomfort. She can flex extend her fingers appropriately. There is no obvious deformity. No crepitance. She is neurologically intact. She has full elbow motion. Results & Data Results & Data Laboratory Results . Diagnostic Findings . X-rays of the left hand and wrist revealed no detectable fractures of. She does have some CMC joint arthritis. She got a little bit of a bone spur off her lunate. She got some chondrocalcinosis. All these findings are chronic. No acute fracture. PG Care Time/CCT Total # of Minutes Spent Total Time Spent with Patient: Total time spent is greater than 50% in coordination of care (as documented) at patient's floor/unit and/or counseling patient: Coding Level of Care Code 81016 Inpt Consult Level 3 Diagnoses Left wrist pain M25.532
[2020-10-27 07:54] LABS: Basophils # (auto) 0.01 K/uL (0-0.2); Basophils % (auto) 0.3 %; Eosinophils # (auto) 0.03 K/uL (0-0.5); Eosinophils % (auto) 0.8 %; Hematocrit (blood only) 28.3 % (37-47); Hemoglobin 8.9 g/dL (12.0-16.0); Immature Granulocytes # (auto) 0.01 K/uL (0.00-0.02); Immature Granulocytes % (auto) 0.3 %; Lymphocytes # (auto) 0.85 K/uL (1.2-3.4); Lymphocytes % (auto) 22.8 %; Mean Corpuscular Hgb Conc 31.4 g/dL (32-36); Mean Corpuscular Volume 92.2 fL (80-100); Mean Platelet Volume 10.7 fL (7.4-10.4); Monocytes % (auto) 13.4 %; Neutrophils # (auto) 2.33 K/uL (1.4-6.5); Neutrophils % (auto) 62.4 %; Platelet Count 233 K/uL (130-400); RDW Coefficient of Variation 21.5 % (11.5-14.5); RDW Standard Deviation 72.2 fL (36.4-46.3); Red Blood Count 3.07 M/uL (4.2-5.4); White Blood Count 3.73 K/uL (4.8-10.8)
[2020-10-27 08:02] LABS: Estimated Average Glucose 183 mg/dl
[2020-10-27 08:15] LABS: Anisocytosis Present; Ovalocytes 1+
[2020-10-27 08:22] LABS: BUN Creatinine Ratio 27.1 (10-20); Calcium 8.8 mg/dl (8.5-10.1); Creatinine Clr Calc Pharmacy 101.3 ml/min; Est GFR (African American) 110.6 ml/min; Est GFR (Non-African American) 95.5 ml/min; Potassium 4.2 mmol/L (3.5-5.1)
[2020-10-27] MEDS: INSULIN ASPART 100 UNITS/ML 3 ML PEN SC SCH ×4 (08:54→20:45)
[2020-10-27] MEDS: dilTIAZem ER 120 MG CAPCR PO SCH (08:55)
[2020-10-27] MEDS: lisinopril 10 MG TAB PO SCH (08:56)
[2020-10-27] MEDS: DULoxetine HCL 60 MG CAP PO SCH (08:56)
[2020-10-27] MEDS: CHOLECALCIFEROL 1,000 UNITS 25 MCG TAB PO SCH (08:56)
[2020-10-27] MEDS: PANTOprazole 40 MG TAB PO SCH (08:56)
[2020-10-27] MEDS: busPIRone 7.5 MG TAB PO PRN (08:57)
[2020-10-27] MEDS: DULoxetine HCL 20 MG CAP PO SCH (08:58)
[2020-10-27] MEDS: INSULIN GLARGINE SOLOSTAR 100 UNITS/ML 3 ML PEN SC SCH ×2 (08:58→20:46)
[2020-10-27] MEDS: GABAPENTIN 600 MG TAB PO SCH (08:58)
--- NOTE | 2020-10-27 16:45 | Hospitalist Progress Note ---
Date of Service October 27, 2020 Assessment & Plan (1) Recurrent falls: Suspect from vertigo from description. Recommend outpatient vestibular therapy. Mildly orthostatic but I suspect this is not her ongoing dizziness. (2) Acute head injury: s/p fall with trauma to head - CT head with scalp hematoma, CT cervical spine with no acute process. Patient is on Rivaroxaban anticoagulation for history of atrial fibrillation. No focal neurological deficits -Neuro checks with GCS q 4 hours -Fall precautions -PT/OT evaluation for placement needs -Continue wrist splint -Tramadol as needed for pain -Morphine as needed for pain -hold Xarelto (3) UTI (urinary tract infection): Concern for UTI - patient is relatively immunocompromised given history of malignancy on chemotherapy. Dysuria. -Continue IV ceftriaxone pending urine culture (4) Left wrist pain: Appreciate orthopedic review. No wrist fracture. Splint for 2 weeks recommended. (5) Metastatic breast cancer: Noted. Patient to receive her final cycle of chemotherapy starting next Friday - then to have re-imaging (6) Weakness of both legs: Patient with no focal weakness on my physical exam. She reports muscular weakness and giving out. Do not think she needs imaging of spinal cord - h/o metastatic cancer is concerning -PT/OT evaluation -Fall precautions (7) Diabetes mellitus type 2, uncontrolled: Chronic -Lantus 15 units BID - hypoglycemia, will reduce this to 0-10 units BID based on glucose levels -ISS -Goal blood sugar 100 - 140 -Continue Lisinopril (8) Atrial fibrillation: Chronic. Patient had both Diltiazem and Amiodarone on home list - has not filled them recently. Per review of notes, patient is on Diltiazem -Continue Diltiazem -Hold Xarelto due to hematoma (9) Normocytic anemia: Hgb 9.3 -> 8.9. Repeat with AM labs. ?from chemotherapy. Will get further workup if continues to decrease. (10) Depression: Chronic -Continue Buspirone -Continue Duloxetine (11) Hypercholesterolemia: Chronic -Continue Atorvastatin (12) Hypothyroidism: Chronic. TSH WNL 10/25 -Continue Synthroid Medically stable for discharge pending placement Admission and Anticipated Discharge Date Admission Date: October 25, 2020 Subjective Ongoing vertigo whenever she moves her head. A/w placement. Review of Systems Review of Systems: All systems reviewed & are unremarkable except as noted in HPI & below Physical Exam Constitutional: WD/WN, vitals as above ENMT: external ear and nose normal, oropharynx normal Respiratory: normal respiratory effort, lungs clear to auscultation Cardiovascular: Rate/Rhythm: regular rate and + irregularly irregular Heart Sounds: no murmur Vessels: no JVD Extremities: normal capillary refill and + pedal edema (Trace b/l ankles); no calf tenderness Gastrointestinal (Abdomen): normal bowel sounds, soft, nontender, no hepatosplenomegaly Musculoskeletal: no cyanosis or clubbing, extremities motor strength 5/5 Skin: Trauma: + hematoma (left frontal scalp) Neurologic: moves all extremities and awake; not confused Psychiatric: A+Ox3, euthymic affect Results & Data Results & Data ([facility]) Vital Signs (Past 12 Hours) Vital Signs Temp Pulse Resp BP BP Pulse Ox 10/27/20 15:30 36.8 C 82 16 160/90 H 97 10/27/20 07:49 36.7 C 63 16 140/87 97 PG Care Time/CCT Total # of Minutes Spent Total Time Spent with Patient: Total time spent is greater than 50% in coordination of care (as documented) at patient's floor/unit and/or counseling patient: Coding Level of Care Code 70195 Subseq Hosp Care Lvl 1 Diagnoses Recurrent falls R29.6 Acute head injury S09.90XA Encounter type: initial encounter UTI (urinary tract infection) N39.0 Hematuria presence: without hematuria Urinary tract infection type: site unspecified Left wrist pain M25.532 Metastatic breast cancer C50.919 Weakness of both legs R29.898 Diabetes mellitus type 2, uncontrolled E11.65 Glycemic state: with hyperglycemia Atrial fibrillation I48.91 Atrial fibrillation type: unspecified Normocytic anemia D64.9 Depression F32.9 Depression Type: unspecified Hypercholesterolemia E78.00 Hypothyroidism E03.9 Hypothyroidism type: unspecified (1) Acute head injury Encounter type: initial encounter Qualified Code(s): S09.90XA - Unspecified injury of head, initial encounter (2) UTI (urinary tract infection) Hematuria presence: without hematuria Urinary tract infection type: site unspecified Qualified Code(s): N39.0 - Urinary tract infection, site not specified (3) Atrial fibrillation Atrial fibrillation type: unspecified Qualified Code(s): I48.91 - Unspecified atrial fibrillation (4) Depression Depression Type: unspecified Qualified Code(s): F32.9 - Major depressive disorder, single episode, unspecified (5) Hypothyroidism Hypothyroidism type: unspecified Qualified Code(s): E03.9 - Hypothyroidism, unspecified (6) Diabetes mellitus type 2, uncontrolled Glycemic state: with hyperglycemia Qualified Code(s): E11.65 - Type 2 diabetes mellitus with hyperglycemia
[2020-10-27] MEDS: GABAPENTIN 300 MG CAP PO SCH (20:44)
[2020-10-27] MEDS: cefTRIAXone SODIUM 2,000 MG in DEXTROSE 5% 50 ML IV SCH (20:44)
[2020-10-27] MEDS: ATORVASTATIN 40 MG TAB PO SCH (20:44)
[2020-10-27] MEDS: HEPARIN 100 UNIT/ML 5ML FLUSH FLUSH PRN ×2 (21:40→23:21)
[2020-10-28] MEDS: ACETAMINOPHEN W/CODEINE #3 1 TAB PO PRN (05:43)
[2020-10-28] MEDS: LEVOTHYROXINE SODIUM 25 MCG TABLET PO SCH (05:44)
[2020-10-28] MEDS: HEPARIN 100 UNIT/ML 5ML FLUSH FLUSH PRN ×2 (07:43→21:44)
[2020-10-28] MEDS: MoRPHine SULFATE 2 MG/ML CARP IV PRN (07:43)
[2020-10-28] MEDS: DULoxetine HCL 60 MG CAP PO SCH (08:01)
[2020-10-28] MEDS: DULoxetine HCL 20 MG CAP PO SCH (08:01)
[2020-10-28] MEDS: lisinopril 10 MG TAB PO SCH (08:02)
[2020-10-28] MEDS: PANTOprazole 40 MG TAB PO SCH (08:02)
[2020-10-28] MEDS: CHOLECALCIFEROL 1,000 UNITS 25 MCG TAB PO SCH (08:03)
[2020-10-28] MEDS: dilTIAZem ER 120 MG CAPCR PO SCH (08:03)
[2020-10-28] MEDS: GABAPENTIN 300 MG CAP PO SCH ×2 (08:03→20:50)
[2020-10-28] MEDS: INSULIN GLARGINE SOLOSTAR 100 UNITS/ML 3 ML PEN SC SCH ×2 (09:09→20:51)
[2020-10-28] MEDS: INSULIN ASPART 100 UNITS/ML 3 ML PEN SC SCH ×4 (09:10→20:51)
[2020-10-28] MEDS: busPIRone 7.5 MG TAB PO PRN (09:11)
[2020-10-28] MEDS: oxyCODONE HCL IR 5 MG TAB (IMMEDIATE RELEASE) PO PRN ×3 (12:40→21:51)
[2020-10-28] MEDS: ACETAMINOPHEN 500 MG TAB PO SCH ×2 (14:22→20:50)
[2020-10-28] MEDS ORDERED: FLUCONAZOLE 50 MG TAB PO ONE (18:57)
[2020-10-28] MEDS: ATORVASTATIN 40 MG TAB PO SCH (20:50)
[2020-10-28] MEDS: cefTRIAXone SODIUM 2,000 MG in DEXTROSE 5% 50 ML IV SCH (20:56)
[2020-10-29] MEDS: oxyCODONE HCL IR 5 MG TAB (IMMEDIATE RELEASE) PO PRN ×5 (03:04→21:57)
[2020-10-29] MEDS: LEVOTHYROXINE SODIUM 25 MCG TABLET PO SCH (05:44)
[2020-10-29] MEDS: HEPARIN 100 UNIT/ML 5ML FLUSH FLUSH PRN ×2 (05:59→21:58)
[2020-10-29 06:33] LABS: Hematocrit (blood only) 29.8 % (37-47); Hemoglobin 9.3 g/dL (12.0-16.0); Mean Corpuscular Hemoglobin 28.9 pg (25-34); Mean Corpuscular Hgb Conc 31.2 g/dL (32-36); Mean Corpuscular Volume 92.5 fL (80-100); Mean Platelet Volume 10.5 fL (7.4-10.4); Platelet Count 255 K/uL (130-400); RDW Coefficient of Variation 21.5 % (11.5-14.5); RDW Standard Deviation 72.2 fL (36.4-46.3); Red Blood Count 3.22 M/uL (4.2-5.4); White Blood Count 4.26 K/uL (4.8-10.8)
[2020-10-29 06:49] LABS: BUN Creatinine Ratio 36.3 (10-20); Calcium 9.1 mg/dl (8.5-10.1); Creatinine Clr Calc Pharmacy 101.3 ml/min; Est GFR (African American) 110.6 ml/min; Est GFR (Non-African American) 95.5 ml/min; Potassium 4.4 mmol/L (3.5-5.1)
--- NOTE | 2020-10-29 08:48 | Hospitalist Progress Note ---
Date of Service October 28, 2020 Assessment & Plan (1) Recurrent falls: Suspect from vertigo from description. Recommend outpatient vestibular therapy. Mildly orthostatic but I suspect this is not her ongoing dizziness. (2) Acute head injury: s/p fall with trauma to head - CT head with scalp hematoma, CT cervical spine with no acute process. Patient is on Rivaroxaban anticoagulation for history of atrial fibrillation. No focal neurological deficits -Neuro checks with GCS q 4 hours -Fall precautions -PT/OT evaluation for placement needs -Continue wrist splint -Tramadol as needed for pain -Morphine as needed for pain -hold Xarelto (3) UTI (urinary tract infection): Concern for UTI - patient is relatively immunocompromised given history of malignancy on chemotherapy. Dysuria. -Continue IV ceftriaxone (total 5 days due to immunosuppression) -u. culture with GNRx2 Fluconazole 150mg PO given for possible vaginal candidiasis - she reports getting this frequently when on antibiotics (4) Left wrist pain: Appreciate orthopedic review. No wrist fracture. Splint for 2 weeks recommended. (5) Metastatic breast cancer: Noted. Patient to receive her final cycle of chemotherapy starting next Friday - then to have re-imaging (6) Weakness of both legs: Patient with no focal weakness on my physical exam. She reports muscular weakness and giving out. Do not think she needs imaging of spinal cord - h/o metastatic cancer is concerning -PT/OT evaluation -Fall precautions (7) Diabetes mellitus type 2, uncontrolled: Chronic -Lantus 15 units BID - hypoglycemia, will reduce this to 5-15 units BID based on glucose levels -ISS -Goal blood sugar 100 - 140 -Continue Lisinopril (8) Atrial fibrillation: Chronic. Patient had both Diltiazem and Amiodarone on home list - has not filled them recently. Per review of notes, patient is on Diltiazem -Continue Diltiazem -Hold Xarelto due to hematoma (9) Normocytic anemia: Hgb 9.3 -> 8.9. Repeat with AM labs. ?from chemotherapy. Will get further workup if continues to decrease. (10) Depression: Chronic -Continue Buspirone -Continue Duloxetine (11) Hypercholesterolemia: Chronic -Continue Atorvastatin (12) Hypothyroidism: Chronic. TSH WNL 10/25 -Continue Synthroid Medically stable for discharge pending placement Admission and Anticipated Discharge Date Admission Date: October 25, 2020 Subjective Ongoing vertigo. Significant pain in her left hand. Encouraged to elevate this as much as possible. Discontinue morphine as this is any been lasting for 15 minutes. She reports tramadol is not effective but is prescribed this as an outpatient. Requesting Ambien for sleep. Reports vaginal candidiasis - frequently occurs when she is given antibiotics. Review of Systems Review of Systems: All systems reviewed & are unremarkable except as noted in HPI & below Physical Exam Constitutional: WD/WN, vitals as above Respiratory: normal respiratory effort, lungs clear to auscultation Cardiovascular: Rate/Rhythm: regular rate and + irregularly irregular Heart Sounds: no murmur Vessels: no JVD Extremities: normal capillary refill and + pedal edema (Trace b/l ankles); no calf tenderness Gastrointestinal (Abdomen): normal bowel sounds, soft, nontender, no hepatosplenomegaly Musculoskeletal: no cyanosis or clubbing, extremities motor strength 5/5 Skin: Trauma: + hematoma (left frontal scalp) Neurologic: moves all extremities and awake; not confused Psychiatric: A+Ox3, euthymic affect Results & Data Results & Data ([facility]) Vital Signs (Past 12 Hours) Vital Signs Temp Pulse Resp BP Pulse Ox 10/29/20 07:44 36.5 C 63 16 143/80 H 98 10/28/20 22:43 36.9 C 67 16 134/79 96 10/28/20 21:41 36.8 C 68 18 147/99 H 96 PG Care Time/CCT Total # of Minutes Spent Total Time Spent with Patient: Total time spent is greater than 50% in coordination of care (as documented) at patient's floor/unit and/or counseling patient: Coding Level of Care Code 65006 Subseq Hosp Care Lvl 1 Diagnoses Recurrent falls R29.6 Acute head injury S09.90XA Encounter type: initial encounter UTI (urinary tract infection) N39.0 Urinary tract infection type: site unspecified Hematuria presence: without hematuria Left wrist pain M25.532 Metastatic breast cancer C50.919 Weakness of both legs R29.898 Diabetes mellitus type 2, uncontrolled E11.65 Glycemic state: with hyperglycemia Atrial fibrillation I48.91 Atrial fibrillation type: unspecified Normocytic anemia D64.9 Depression F32.9 Depression Type: unspecified Hypercholesterolemia E78.00 Hypothyroidism E03.9 Hypothyroidism type: unspecified (1) Acute head injury Encounter type: initial encounter Qualified Code(s): S09.90XA - Unspecified injury of head, initial encounter (2) UTI (urinary tract infection) Urinary tract infection type: site unspecified Hematuria presence: without hematuria Qualified Code(s): N39.0 - Urinary tract infection, site not specified (3) Diabetes mellitus type 2, uncontrolled Glycemic state: with hyperglycemia Qualified Code(s): E11.65 - Type 2 diabetes mellitus with hyperglycemia (4) Atrial fibrillation Atrial fibrillation type: unspecified Qualified Code(s): I48.91 - Unspecified atrial fibrillation (5) Depression Depression Type: unspecified Qualified Code(s): F32.9 - Major depressive disorder, single episode, unspecified (6) Hypothyroidism Hypothyroidism type: unspecified Qualified Code(s): E03.9 - Hypothyroidism, unspecified
--- NOTE | 2020-10-29 08:51 | Hospitalist Progress Note ---
Date of Service October 29, 2020 Assessment & Plan (1) Recurrent falls: Suspect from vertigo from description. Recommend outpatient vestibular therapy. Mildly orthostatic but I suspect this is not her ongoing dizziness. Less likely secondary to gabapentin - will continue this for now, recently d ecreased to 300mg PO BID by Dr Lovett (2) Acute head injury: s/p fall with trauma to head - CT head with scalp hematoma, CT cervical spine with no acute process. Patient is on Rivaroxaban anticoagulation for history of atrial fibrillation. No focal neurological deficits -Fall precautions -PT/OT evaluation, a/w placement -Restarted on Xarelto 10/29 (3) UTI (urinary tract infection): UTI - patient is relatively immunocompromised given history of malignancy on chemotherapy. Dysuria. -Continue IV ceftriaxone (total 5 days due to immunosuppression), finish 10/29. If continued dysuria consider longer duration. -u. culture E. coli + Klebsiella - pansensitive Fluconazole 150mg PO given for vaginal candidiasis 10/28 - she reports getting this frequently when on antibiotics (4) Left wrist pain: Appreciate orthopedic consult. No wrist fracture. -Continue wrist splint 2 weeks -Oxycodone 5mg Q4H for pain, elevate limb as much as possible -Acetaminophen 1g TID RUTH (5) Metastatic breast cancer: Noted. Patient to receive her final cycle of chemotherapy starting next Friday - then to have re-imaging (6) Weakness of both legs: Patient with no focal weakness on my physical exam. She reports muscular weakness and giving out. Do not think she needs imaging of spinal cord - h/o metastatic cancer is concerning -PT/OT evaluation -Fall precautions (7) Diabetes mellitus type 2, uncontrolled: Chronic -Lantus 15 units BID - hypoglycemia, will reduce this to 5-15 units BID based on glucose levels -ISS -Goal blood sugar 100 - 140 -Continue Lisinopril (8) Atrial fibrillation: Chronic. Patient had both Diltiazem and Amiodarone on home list - has not filled them recently. Per review of notes, patient is on Diltiazem -Continue Diltiazem -Restart on Xarelto (9) Normocytic anemia: Hgb 9.3, at baseline. (10) Depression: Chronic -Continue Buspirone -Continue Duloxetine (11) Hypercholesterolemia: Chronic -Continue Atorvastatin (12) Hypothyroidism: Chronic. TSH WNL 10/25 -Continue Synthroid (13) Carpal tunnel syndrome of right wrist: Recommend following up as outpatient Medically stable for discharge pending placement Admission and Anticipated Discharge Date Admission Date: October 25, 2020 Subjective Pain in left wrist better with intermittent loosening of wrist splint and elevation. Notes 6 weeks of right hand 1-3 finger neuropathy with associated drywall taper helper strength weakness. She had been blaming this on chemotherapy although it is the distribution of carpel tunnel with associated right drywall taper helper weakness and thenar eminence atrophy. She is right handed. Review of Systems Review of Systems: All systems reviewed & are unremarkable except as noted in HPI & below Physical Exam Constitutional: WD/WN, vitals as above Eyes: PERRL, conjunctivae normal, anicteric sclerae ENMT: external ear and nose normal, oropharynx normal Respiratory: normal respiratory effort, lungs clear to auscultation Cardiovascular: Rate/Rhythm: regular rate and + irregularly irregular Heart Sounds: no murmur Vessels: no JVD Extremities: normal capillary refill and + pedal edema (Trace b/l ankles); no calf tenderness Gastrointestinal (Abdomen): normal bowel sounds, soft, nontender, no hepatosplenomegaly Musculoskeletal: no cyanosis or clubbing, extremities motor strength 5/5 Right thenar eminence atrophy Skin: Trauma: + hematoma (left frontal scalp, improving) Neurologic: moves all extremities and awake; not confused Psychiatric: A+Ox3, euthymic affect Results & Data Results & Data ([facility]) Vital Signs (Past 12 Hours) Vital Signs Temp Pulse Resp BP Pulse Ox 10/29/20 07:44 36.5 C 63 16 143/80 H 98 10/28/20 22:43 36.9 C 67 16 134/79 96 10/28/20 21:41 36.8 C 68 18 147/99 H 96 PG Care Time/CCT Total # of Minutes Spent Total Time Spent with Patient: Total time spent is greater than 50% in coordination of care (as documented) at patient's floor/unit and/or counseling patient: Coding Level of Care Code 45828 Subseq Hosp Care Lvl 1 Diagnoses Recurrent falls R29.6 Acute head injury S09.90XA Encounter type: initial encounter UTI (urinary tract infection) N39.0 Hematuria presence: without hematuria Urinary tract infection type: site unspecified Left wrist pain M25.532 Metastatic breast cancer C50.919 Weakness of both legs R29.898 Diabetes mellitus type 2, uncontrolled E11.65 Glycemic state: with hyperglycemia Atrial fibrillation I48.91 Atrial fibrillation type: unspecified Normocytic anemia D64.9 Depression F32.9 Depression Type: unspecified Hypercholesterolemia E78.00 Hypothyroidism E03.9 Hypothyroidism type: unspecified Carpal tunnel syndrome of right wrist G56.01 (1) Acute head injury Encounter type: initial encounter Qualified Code(s): S09.90XA - Unspecified injury of head, initial encounter (2) UTI (urinary tract infection) Hematuria presence: without hematuria Urinary tract infection type: site unspecified Qualified Code(s): N39.0 - Urinary tract infection, site not specified (3) Atrial fibrillation Atrial fibrillation type: unspecified Qualified Code(s): I48.91 - Unspecified atrial fibrillation (4) Depression Depression Type: unspecified Qualified Code(s): F32.9 - Major depressive disorder, single episode, unspecified (5) Hypothyroidism Hypothyroidism type: unspecified Qualified Code(s): E03.9 - Hypothyroidism, unspecified (6) Diabetes mellitus type 2, uncontrolled Glycemic state: with hyperglycemia Qualified Code(s): E11.65 - Type 2 diabetes mellitus with hyperglycemia
[2020-10-29] MEDS: INSULIN ASPART 100 UNITS/ML 3 ML PEN SC SCH ×4 (09:02→20:56)
[2020-10-29] MEDS: INSULIN GLARGINE SOLOSTAR 100 UNITS/ML 3 ML PEN SC SCH ×2 (09:03→20:57)
[2020-10-29] MEDS: CHOLECALCIFEROL 1,000 UNITS 25 MCG TAB PO SCH (09:04)
[2020-10-29] MEDS: dilTIAZem ER 120 MG CAPCR PO SCH (09:05)
[2020-10-29] MEDS: DULoxetine HCL 20 MG CAP PO SCH (09:05)
[2020-10-29] MEDS: DULoxetine HCL 60 MG CAP PO SCH (09:05)
[2020-10-29] MEDS: lisinopril 10 MG TAB PO SCH (09:06)
[2020-10-29] MEDS: RIVAROXABAN 20 MG TAB PO SCH (09:06)
[2020-10-29] MEDS: ACETAMINOPHEN 500 MG TAB PO SCH ×3 (09:07→20:50)
[2020-10-29] MEDS: GABAPENTIN 300 MG CAP PO SCH (09:08)
[2020-10-29] MEDS: PANTOprazole 40 MG TAB PO SCH (09:08)
--- NOTE | 2020-10-29 10:01 | Electrocardiogram Report ---
Test Reason : Blood Pressure : / mmHG Vent. Rate : 066 BPM Atrial Rate : 066 BPM P-R Int : 152 ms QRS Dur : 080 ms QT Int : 418 ms P-R-T Axes : 038 014 045 degrees QTc Int : 438 ms Normal sinus rhythm Normal ECG When compared with ECG of 25-OCT-2020 16:22, Sinus rhythm has replaced Electronic atrial pacemaker Confirmed by Ryland Fox ([id number]) on 10/29/2020 10:00:51 AM Referred By: REFERRED SELF Confirmed By:Ryland Fox
[2020-10-29] MEDS: ATORVASTATIN 40 MG TAB PO SCH (20:50)
[2020-10-29] MEDS ORDERED: GABAPENTIN 600 MG TAB PO SCH (21:00)
[2020-10-29] MEDS: cefTRIAXone SODIUM 2,000 MG in DEXTROSE 5% 50 ML IV SCH (21:00)
[2020-10-30] MEDS: ZOLPIDEM TARTRATE 5 MG TAB PO PRN ×2 (00:05→23:28)
[2020-10-30] MEDS: LEVOTHYROXINE SODIUM 25 MCG TABLET PO SCH (06:07)
--- NOTE | 2020-10-30 08:10 | Hospitalist Progress Note ---
Date of Service October 30, 2020 Assessment & Plan (1) Recurrent falls: Suspect from vertigo from description as well as general deconditioning Recommend outpatient vestibular therapy as outpatient Mildly orthostatic but I suspect this is not her ongoing dizziness -- will have nursing obtain orthostatic VS Less likely secondary to gabapentin - will continue this for now, recently decreased to 300mg PO BID by Dr Lovett Fall precautions PT/OT evaluations-- pending placement. [facility] auth still pending. [facility] as backup (2) Acute head injury: s/p fall with trauma to head - CT head with scalp hematoma, CT cervical spine with no acute process. No focal neurological deficits Patient is on Rivaroxaban anticoagulation for history of atrial fibrillation -- held and resumed on 10/29 (3) UTI (urinary tract infection): UTI - patient is relatively immunocompromised given history of malignancy on chemotherapy. Dysuria. Urine cx with Ecoli/Klebsiella, pansensitive Completed course of Ceftriaxone x 5 days as well as dose of Fluconazole 150mg x 1 for vaginal candidiasis on 10/28 No symptoms reported (4) Left wrist pain: Appreciate orthopedic consult. No wrist fracture. -Continue wrist splint 2 weeks -Oxycodone 5mg Q4H for pain, elevate limb as much as possible -Acetaminophen 1g TID RUTH (5) Metastatic breast cancer: Noted. [facility] Patient to receive her final cycle of chemotherapy starting month - then to have re-imaging (6) Weakness of both legs: Patient with no focal weakness on my physical exam. She reports muscular weakness and giving out. Do not think she needs imaging of spinal cord - h/o metastatic cancer is concerning Will check ESR for possible PMR?, CK, B12 -PT/OT evaluation as above -Fall precautions (7) Diabetes mellitus type 2, uncontrolled: Chronic -Lantus 15 units BID - hypoglycemia, will reduce this to 5-15 units BID based on glucose levels -ISS -Goal blood sugar 100 - 140 -Continue Lisinopril (8) Atrial fibrillation: Chronic. Patient had both Diltiazem and Amiodarone on home list - has not filled them recently. Per review of notes, patient is on Diltiazem Continue Diltiazem Xarelto as above (9) Normocytic anemia: Hgb 9.3, at baseline. Repeat hgb 9.5 (10) Depression: Chronic -Continue Buspirone -Continue Duloxetine (11) Hypercholesterolemia: Chronic -Continue Atorvastatin Checking CK due to reported weakness (12) Hypothyroidism: Chronic. TSH WNL 10/25 -Continue Synthroid (13) Carpal tunnel syndrome of right wrist: Recommend following up as outpatient Medically stable for discharge pending placement Admission and Anticipated Discharge Date Admission Date: October 25, 2020 Supervising Physician Co-Signing Physician Notes AZEEM Supervision Note: I did not personally see or examine the patient today, but I verified all edwards points of AZEEM Rene's assessment and plan with the following exceptions/additions: Pt had a fever in the evening check repeat UA, CXR, BCxs CHange ceftriaxone to Cefepime given immunosupression Add incentive spirometry Subjective Patient evaluated this morning. Painful to head/arm/wrist. Headache and got tylenol. On Oxycodone at home and would like a dose if possible. No fever, chill, chest pain, shortness of breath, abdominal pain, nausea vomiting. Denies any urinary symptoms today. Eating/drinking without issue. Does not feel ready for rehab today but is hopeful for tomorrow if insurance authorization received. Feeling much better in afternoon after pain medication. Review of Systems Review of Systems: All systems reviewed & are unremarkable except as noted in HPI & below Physical Exam Constitutional: WD/WN, vitals as above ecchymosis to left face, forearm, hematoma to scalp Eyes: PERRL, conjunctivae normal, anicteric sclerae ENMT: external ear and nose normal, oropharynx normal Respiratory: normal respiratory effort, lungs clear to auscultation Cardiovascular: Rate/Rhythm: regular rate and regular rhythm Heart Sounds: + murmur Vessels: no JVD Extremities: normal capillary refill and + pedal edema (Trace b/l ankles); no calf tenderness Gastrointestinal (Abdomen): normal bowel sounds, soft, nontender, no hepatosplenomegaly Musculoskeletal: no cyanosis or clubbing, extremities motor strength 5/5 Right thenar eminence atrophy Skin: Trauma: + hematoma (left frontal scalp, improving) Neurologic: moves all extremities and awake; not confused Psychiatric: A+Ox3, euthymic affect Results & Data Results & Data ([facility]) Vital Signs (Past 12 Hours) Vital Signs Temp Pulse Resp BP Pulse Ox 10/29/20 23:04 128/73 10/29/20 22:58 36.8 C 71 20 172/66 H 93 Laboratory Results 10/30/20 10/30/20 10/30/20 Range/Units 11:52 08:37 08:37 WBC (4.8-10.8) K/uL RBC (4.2-5.4) M/uL Hgb (12.0-16.0) g/dL Hct (37-47) % MCV (80-100) fL MCH (25-34) pg MCHC (32-36) g/dL RDW Std Deviation (36.4-46.3) fL RDW Coeff of Thompson (11.5-14.5) % Plt Count (130-400) K/uL MPV (7.4-10.4) fL Immature Gran % (Auto) % Neut % (Auto) % Lymph % (Auto) % [place] % (Auto) % Eos % (Auto) % Baso % (Auto) % Neut # (Auto) (1.4-6.5) K/uL Lymph # (Auto) (1.2-3.4) K/uL [place] # (Auto) (0.11-0.59) K/uL Eos # (Auto) (0-0.5) K/uL Baso # (Auto) (0-0.2) K/uL Immature Gran # (Auto) (0.00-0.02) K/uL Ovalocytes Sodium 138 (136-145) mmol/L Potassium 4.4 (3.5-5.1) mmol/L Chloride 102 (98-107) mmol/L Carbon Dioxide 30 (21-32) mmol/L Anion Gap 5.0 (3-11) BUN 17 (7-18) mg/dl Creatinine 0.43 L (0.6-1.2) mg/dl Est Cr Clr Drug Dosing 122.5 ml/min Est GFR ( Amer) 117.8 ml/min Est GFR (Non-Af Amer) 101.6 ml/min BUN/Creatinine Ratio 39.3 H (10-20) Glucose 170 H (70-99) mg/dl POC Glucose 258 H (70-99) mg/dl Calcium 9.0 (8.5-10.1) mg/dl Vitamin B12 Pending 10/30/20 10/30/20 10/29/20 Range/Units 08:37 08:10 20:52 WBC 3.93 L (4.8-10.8) K/uL RBC 3.26 L (4.2-5.4) M/uL Hgb 9.5 L (12.0-16.0) g/dL Hct 30.3 L (37-47) % MCV 92.9 (80-100) fL MCH 29.1 (25-34) pg MCHC 31.4 L (32-36) g/dL RDW Std Deviation 72.7 H (36.4-46.3) fL RDW Coeff of Thompson 21.5 H (11.5-14.5) % Plt Count 254 (130-400) K/uL MPV 10.4 (7.4-10.4) fL Immature Gran % (Auto) 0.3 % Neut % (Auto) 54.0 % Lymph % (Auto) 25.4 % [place] % (Auto) 18.8 % Eos % (Auto) 1.0 % Baso % (Auto) 0.5 % Neut # (Auto) 2.12 (1.4-6.5) K/uL Lymph # (Auto) 1.00 L (1.2-3.4) K/uL [place] # (Auto) 0.74 H (0.11-0.59) K/uL Eos # (Auto) 0.04 (0-0.5) K/uL Baso # (Auto) 0.02 (0-0.2) K/uL Immature Gran # (Auto) 0.01 (0.00-0.02) K/uL Ovalocytes 1+ Sodium (136-145) mmol/L Potassium (3.5-5.1) mmol/L Chloride (98-107) mmol/L Carbon Dioxide (21-32) mmol/L Anion Gap (3-11) BUN (7-18) mg/dl Creatinine (0.6-1.2) mg/dl Est Cr Clr Drug Dosing ml/min Est GFR ( Amer) ml/min Est GFR (Non-Af Amer) ml/min BUN/Creatinine Ratio (10-20) Glucose (70-99) mg/dl POC Glucose 165 H 189 H (70-99) mg/dl Calcium (8.5-10.1) mg/dl Vitamin B12 06/13/21 Range/Units 17:12 WBC (4.8-10.8) K/uL RBC (4.2-5.4) M/uL Hgb (12.0-16.0) g/dL Hct (37-47) % MCV (80-100) fL MCH (25-34) pg MCHC (32-36) g/dL RDW Std Deviation (36.4-46.3) fL RDW Coeff of Thompson (11.5-14.5) % Plt Count (130-400) K/uL MPV (7.4-10.4) fL Immature Gran % (Auto) % Neut % (Auto) % Lymph % (Auto) % [place] % (Auto) % Eos % (Auto) % Baso % (Auto) % Neut # (Auto) (1.4-6.5) K/uL Lymph # (Auto) (1.2-3.4) K/uL [place] # (Auto) (0.11-0.59) K/uL Eos # (Auto) (0-0.5) K/uL Baso # (Auto) (0-0.2) K/uL Immature Gran # (Auto) (0.00-0.02) K/uL Ovalocytes Sodium (136-145) mmol/L Potassium (3.5-5.1) mmol/L Chloride (98-107) mmol/L Carbon Dioxide (21-32) mmol/L Anion Gap (3-11) BUN (7-18) mg/dl Creatinine (0.6-1.2) mg/dl Est Cr Clr Drug Dosing ml/min Est GFR ( Amer) ml/min Est GFR (Non-Af Amer) ml/min BUN/Creatinine Ratio (10-20) Glucose (70-99) mg/dl POC Glucose 94 (70-99) mg/dl Calcium (8.5-10.1) mg/dl Vitamin B12 PG Care Time/CCT Total # of Minutes Spent Total Time Spent with Patient: Total time spent is greater than 50% in coordination of care (as documented) at patient's floor/unit and/or counseling patient: Coding Level of Care Code 84893 Subseq Hosp Care Lvl 2 Diagnoses Recurrent falls R29.6 Acute head injury S09.90XA Encounter type: initial encounter UTI (urinary tract infection) N39.0 Hematuria presence: without hematuria Urinary tract infection type: site unspecified Left wrist pain M25.532 Metastatic breast cancer C50.919 Weakness of both legs R29.898 Diabetes mellitus type 2, uncontrolled E11.65 Glycemic state: with hyperglycemia Atrial fibrillation I48.91 Atrial fibrillation type: unspecified Normocytic anemia D64.9 Depression F32.9 Depression Type: unspecified Hypercholesterolemia E78.00 Hypothyroidism E03.9 Hypothyroidism type: unspecified Carpal tunnel syndrome of right wrist G56.01 (1) Acute head injury Encounter type: initial encounter Qualified Code(s): S09.90XA - Unspecified injury of head, initial encounter (2) UTI (urinary tract infection) Hematuria presence: without hematuria Urinary tract infection type: site unspecified Qualified Code(s): N39.0 - Urinary tract infection, site not specified (3) Atrial fibrillation Atrial fibrillation type: unspecified Qualified Code(s): I48.91 - Unspecified atrial fibrillation (4) Depression Depression Type: unspecified Qualified Code(s): F32.9 - Major depressive disorder, single episode, unspecified (5) Hypothyroidism Hypothyroidism type: unspecified Qualified Code(s): E03.9 - Hypothyroidism, unspecified (6) Diabetes mellitus type 2, uncontrolled Glycemic state: with hyperglycemia Qualified Code(s): E11.65 - Type 2 diabetes mellitus with hyperglycemia
[2020-10-30] MEDS: HEPARIN 100 UNIT/ML 5ML FLUSH FLUSH PRN ×2 (08:47→20:25)
[2020-10-30 08:58] LABS: Basophils # (auto) 0.02 K/uL (0-0.2); Basophils % (auto) 0.5 %; Eosinophils # (auto) 0.04 K/uL (0-0.5); Hematocrit (blood only) 30.3 % (37-47); Hemoglobin 9.5 g/dL (12.0-16.0); Immature Granulocytes # (auto) 0.01 K/uL (0.00-0.02); Immature Granulocytes % (auto) 0.3 %; Lymphocytes % (auto) 25.4 %; Mean Corpuscular Hemoglobin 29.1 pg (25-34); Mean Corpuscular Hgb Conc 31.4 g/dL (32-36); Mean Corpuscular Volume 92.9 fL (80-100); Mean Platelet Volume 10.4 fL (7.4-10.4); Monocytes # (auto) 0.74 K/uL (0.11-0.59); Monocytes % (auto) 18.8 %; Neutrophils # (auto) 2.12 K/uL (1.4-6.5); Platelet Count 254 K/uL (130-400); RDW Coefficient of Variation 21.5 % (11.5-14.5); RDW Standard Deviation 72.7 fL (36.4-46.3); Red Blood Count 3.26 M/uL (4.2-5.4); White Blood Count 3.93 K/uL (4.8-10.8)
[2020-10-30] MEDS: ACETAMINOPHEN 500 MG TAB PO SCH ×3 (09:03→20:33)
[2020-10-30] MEDS: lisinopril 10 MG TAB PO SCH (09:04)
[2020-10-30] MEDS: PANTOprazole 40 MG TAB PO SCH (09:04)
[2020-10-30] MEDS: CHOLECALCIFEROL 1,000 UNITS 25 MCG TAB PO SCH (09:08)
[2020-10-30] MEDS: RIVAROXABAN 20 MG TAB PO SCH (09:08)
[2020-10-30] MEDS: DULoxetine HCL 60 MG CAP PO SCH (09:08)
[2020-10-30] MEDS: dilTIAZem ER 120 MG CAPCR PO SCH (09:09)
[2020-10-30] MEDS: GABAPENTIN 600 MG TAB PO SCH ×2 (09:09→20:33)
[2020-10-30] MEDS: INSULIN ASPART 100 UNITS/ML 3 ML PEN SC SCH ×4 (09:10→20:39)
[2020-10-30] MEDS: INSULIN GLARGINE SOLOSTAR 100 UNITS/ML 3 ML PEN SC SCH ×2 (09:11→20:39)
[2020-10-30 09:25] LABS: BUN Creatinine Ratio 39.3 (10-20); Creatinine Clr Calc Pharmacy 122.5 ml/min; Est GFR (African American) 117.8 ml/min; Est GFR (Non-African American) 101.6 ml/min; Potassium 4.4 mmol/L (3.5-5.1)
[2020-10-30 09:41] LABS: Ovalocytes 1+
[2020-10-30] MEDS: busPIRone 7.5 MG TAB PO PRN (09:46)
[2020-10-30] MEDS: oxyCODONE HCL IR 5 MG TAB (IMMEDIATE RELEASE) PO PRN ×3 (12:13→21:11)
[2020-10-30] MEDS: busPIRone 15 MG TAB PO SCH (17:44)
[2020-10-30 20:00] LABS: Appearance Urine Clear (Clear); Bacteria Urine Automated Negative (Negative); Bilirubin Urine Negative (Negative); Blood Urine Negative (Negative); Color Urine Yellow; Epithelial Cell Urine Auto >30 /lpf (0-5); Glucose Urine UA Negative (Negative); Ketones Urine Negative (Negative); Leukocyte Esterase Urine 1+ (Negative); Nitrite Urine Negative (Negative); Protein Urine Negative (Negative); RBC Urine Automated 0-4 /hpf (0-4); Specific Gravity Urine 1.019 (1.000-1.030); Urobilinogen Urine Negative (Negative)
[2020-10-30] MEDS: CEFEPIME 1,000 MG in SYRINGE 0 ML IV SCH (20:25)
[2020-10-30] MEDS: ATORVASTATIN 40 MG TAB PO SCH (20:33)
[2020-10-31] MEDS: LEVOTHYROXINE SODIUM 25 MCG TABLET PO SCH (05:58)
[2020-10-31 06:47] LABS: Hemoglobin 10.2 g/dL (12.0-16.0); Mean Corpuscular Hgb Conc 31.9 g/dL (32-36); Mean Corpuscular Volume 90.9 fL (80-100); Mean Platelet Volume 10.2 fL (7.4-10.4); Platelet Count 247 K/uL (130-400); RDW Coefficient of Variation 21.6 % (11.5-14.5); RDW Standard Deviation 71.3 fL (36.4-46.3); Red Blood Count 3.52 M/uL (4.2-5.4); White Blood Count 4.48 K/uL (4.8-10.8)
[2020-10-31 07:28] LABS: BUN Creatinine Ratio 40.6 (10-20); Calcium 8.8 mg/dl (8.5-10.1); Creatinine Clr Calc Pharmacy 107.5 ml/min; Est GFR (African American) 112.8 ml/min; Est GFR (Non-African American) 97.3 ml/min; Potassium 4.3 mmol/L (3.5-5.1)
--- NOTE | 2020-10-31 08:36 | XRay Report ---
XR chest 1V portable HISTORY: fever COMPARISON: Chest 10/25/2020. FINDINGS: Cardiac silhouette remains top normal in size. Left-sided dual-chamber pacemaker. There is a left shoulder prosthesis, unchanged. No pneumothorax. No pleural effusions. No new focal lung conso lidations to suggest pneumonia. No evidence for pulmonary edema. Partially visualized lumbar spinal f usion hardware is again noted. IMPRESSION: No significant change compared to the prior study. No acute process. ACT 112: Negative or not required by law. Electronically signed by: Shan Hollingsworth M.D. 10/31/2020 8:34 AM
[2020-10-31] MEDS: oxyCODONE HCL IR 5 MG TAB (IMMEDIATE RELEASE) PO PRN ×4 (08:37→22:34)
[2020-10-31] MEDS: GABAPENTIN 600 MG TAB PO SCH ×2 (08:38→21:01)
[2020-10-31] MEDS: DULoxetine HCL 60 MG CAP PO SCH (08:41)
[2020-10-31] MEDS: busPIRone 15 MG TAB PO SCH ×2 (08:41→21:02)
[2020-10-31] MEDS: PANTOprazole 40 MG TAB PO SCH (08:41)
[2020-10-31] MEDS: dilTIAZem ER 120 MG CAPCR PO SCH (08:41)
[2020-10-31] MEDS: RIVAROXABAN 20 MG TAB PO SCH (08:41)
[2020-10-31] MEDS: CHOLECALCIFEROL 1,000 UNITS 25 MCG TAB PO SCH (08:41)
[2020-10-31] MEDS: lisinopril 10 MG TAB PO SCH (08:41)
[2020-10-31] MEDS: ACETAMINOPHEN 500 MG TAB PO SCH (08:42)
[2020-10-31] MEDS: INSULIN ASPART 100 UNITS/ML 3 ML PEN SC SCH ×4 (08:42→21:08)
[2020-10-31] MEDS: INSULIN GLARGINE SOLOSTAR 100 UNITS/ML 3 ML PEN SC SCH ×2 (08:53→21:08)
--- NOTE | 2020-10-31 09:06 | Hospitalist Progress Note ---
Date of Service October 31, 2020 Assessment & Plan (1) Fever: Temp 38.1C recorded in system last evening. Unsure if possibly on the wrong patient (patient denies ever having fever or chills yesterday) ,but given ca and immunocompromised state having temp while on Rocephin, switched to Cefepime and will continue for now Repeat CXR without acute process Repeat UA without bacteria Blood cultures pending No further temperature, WBC actually 4.4k, no neutropenia noted Continue to monitor (2) Recurrent falls: Suspect from vertigo from description as well as general deconditioning Recommend outpatient vestibular therapy as outpatient Mildly orthostatic but I suspect this is not her ongoing dizziness -- will have nursing obtain repeat orthostatic VS this morning Less likely secondary to gabapentin - will continue this for now, recently decreased to 300mg PO BID by Dr Lovett Fall precautions PT/OT evaluations-- pending placement. [facility] auth denied.. [facility] as backup. Patient agreeable to rehab Still with reported pain to head/wrist/back --> increased oxycodone to 1-2 tablets prn --> voltaren gel QID --> Lidocaine patch (3) Acute head injury: s/p fall with trauma to head - CT head with scalp hematoma, CT cervical spine with no acute process. No focal neurological deficits Patient is on Rivaroxaban anticoagulation for history of atrial fibrillation -- held and resumed on 10/29 (4) UTI (urinary tract infection): UTI - patient is relatively immunocompromised given history of malignancy on chemotherapy. Dysuria. Urine cx with Ecoli/Klebsiella, pansensitive Completed course of Ceftriaxone x 5 days as well as dose of Fluconazole 150mg x 1 for vaginal candidiasis on 10/28 --> switched to Cefepime as above. Continue for now but repeat UA without bacteria No symptoms reported (5) Left wrist pain: Appreciate orthopedic consult. No wrist fracture. -Continue wrist splint 2 weeks -Oxycodone 5mg Q4H for pain, elevate limb as much as possible -Acetaminophen 1g TID RUTH -- will change to prn given above changes as she frequently reaches max and will help to see if any fevers off of this (6) Metastatic breast cancer: Noted. [facility] to receive her final cycle of chemotherapy starting month - then to have re-imaging (7) Weakness of both legs: Patient with no focal weakness on my physical exam. She reports muscular weakness and giving out. Do not think she needs imaging of spinal cord - h/o metastatic cancer is concerning Will check ESR for possible PMR? -- elevated but likely due to age CK 66 B12 still pending -PT/OT evaluation as above -Fall precautions (8) Diabetes mellitus type 2, uncontrolled: Chronic -Lantus 15 units BID - hypoglycemia, will reduce this to 5-15 units BID based on glucose levels -ISS -Goal blood sugar 100 - 140 -Continue Lisinopril (9) Atrial fibrillation: Chronic. Patient had both Diltiazem and Amiodarone on home list - has not filled them recently. Per review of notes, patient is on Diltiazem Continue Diltiazem Xarelto as above (10) Normocytic anemia: Hgb 9.3, at baseline. Repeat hgb 10.2 (11) Depression: Chronic -Continue Buspirone -Continue Duloxetine (12) Hypercholesterolemia: Chronic -Continue Atorvastatin Checking CK due to reported weakness -- wnl (13) Hypothyroidism: Chronic. TSH WNL 10/25 -Continue Synthroid (14) Carpal tunnel syndrome of right wrist: Recommend following up as outpatient Dispo: awaiting rehab Admission and Anticipated Discharge Date Admission Date: October 25, 2020 Supervising Physician Co-Signing Physician Notes AZEEM Supervision Note: I did not personally see or examine the patient today, but I verified all edwards points of AZEEM Rene's assessment and plan with the following exceptions/additions: none Subjective Patient evaluated this morning. Main complaint is pain. Tramadol ineffective as she had taken this at home. Oxycodone helpful and will increase to up to 2 tablets as needed for pain control. She uses tube of biofreeze at home almost weekly -- discussed voltaren gel, she is willing to try to see if additional relief. Headache resolved yesterday but does have a slight one. No increased discomfort with knee flexion/neck flexion and she states Dr Person told her she would have one until hematoma resolved/healed from fall. She REFUSES any further imaging/testing at this time, including LP or further head imaging. Denies feeling feverish at all yesterday and wanted to know who put that temperature on her chart. No fever, chills, chest pain, shortness of breath, abdominal pain, nausea or vomiting. Agreeable to rehab at discharge. Questions/concerns addressed at this time. Review of Systems Review of Systems: All systems reviewed & are unremarkable except as noted in HPI & below Physical Exam Constitutional: WD/WN, vitals as above cooperative and comfortable; no acute distress hematoma with healing bruise to L lateral/left forehead brace to L wrist/forearm R sided A-port without erythema or tenderness to palpation Eyes: + anicteric sclerae and PERRL ENMT: Ears: no hearing impairment Neck: normal visual inspection and trachea midline Respiratory: normal respiratory effort, lungs clear to auscultation Cardiovascular: Rate/Rhythm: regular rate and regular rhythm Heart Sounds: + murmur Vessels: no JVD Extremities: normal capillary refill and + pedal edema (Trace b/l ankles); no calf tenderness Gastrointestinal (Abdomen): normal bowel sounds, soft, nontender, no hepatosplenomegaly Musculoskeletal: no cyanosis or clubbing, extremities motor strength 5/5 Skin: Trauma: + hematoma (left frontal scalp, improving) Neurologic: moves all extremities and awake; not confused Psychiatric: A+Ox3, euthymic affect Results & Data Results & Data ([facility]) Vital Signs (Past 12 Hours) Vital Signs Temp Pulse Resp BP Pulse Ox 10/31/20 08:12 36.7 C 76 16 127/74 95 10/30/20 23:08 36.7 C 68 16 147/77 H 93 Laboratory Results 10/31/20 10/31/20 10/31/20 Range/Units 12:07 08:10 06:18 WBC (4.8-10.8) K/uL RBC (4.2-5.4) M/uL Hgb (12.0-16.0) g/dL Hct (37-47) % MCV (80-100) fL MCH (25-34) pg MCHC (32-36) g/dL RDW Std Deviation (36.4-46.3) fL RDW Coeff of Thompson (11.5-14.5) % Plt Count (130-400) K/uL MPV (7.4-10.4) fL ESR (0-30) mm/hr Sodium (136-145) mmol/L Potassium (3.5-5.1) mmol/L Chloride (98-107) mmol/L Carbon Dioxide (21-32) mmol/L Anion Gap (3-11) BUN (7-18) mg/dl Creatinine (0.6-1.2) mg/dl Est Cr Clr Drug Dosing ml/min Est GFR ( Amer) ml/min Est GFR (Non-Af Amer) ml/min BUN/Creatinine Ratio (10-20) Glucose (70-99) mg/dl POC Glucose 249 H 181 H (70-99) mg/dl Calcium (8.5-10.1) mg/dl Magnesium 2.1 (1.8-2.4) mg/dl Total Creatine Kinase (26-192) U/L Urine Color Urine Appearance (Clear) Urine pH (4.5-7.5) Ur Specific [place] (1.000-1.030) Urine Protein (Negative) Urine Glucose (UA) (Negative) Urine Ketones (Negative) Urine Blood (Negative) Urine Nitrite (Negative) Urine Bilirubin (Negative) Urine Urobilinogen (Negative) Ur Leukocyte Esterase (Negative) Urine WBC (Auto) (0-5) /hpf Urine RBC (Auto) (0-4) /hpf U Hyaline Cast (Auto) (0-5) /lpf U Epithel Cells (Auto) (0-5) /lpf Urine Bacteria (Auto) (Negative) Urine Yeast 10/31/20 10/31/20 10/30/20 Range/Units 06:18 06:18 20:38 WBC 4.48 L (4.8-10.8) K/uL RBC 3.52 L (4.2-5.4) M/uL Hgb 10.2 L (12.0-16.0) g/dL Hct 32.0 L (37-47) % MCV 90.9 (80-100) fL MCH 29.0 (25-34) pg MCHC 31.9 L (32-36) g/dL RDW Std Deviation 71.3 H (36.4-46.3) fL RDW Coeff of Thompson 21.6 H (11.5-14.5) % Plt Count 247 (130-400) K/uL MPV 10.2 (7.4-10.4) fL ESR (0-30) mm/hr Sodium 137 (136-145) mmol/L Potassium 4.3 (3.5-5.1) mmol/L Chloride 102 (98-107) mmol/L Carbon Dioxide 29 (21-32) mmol/L Anion Gap 6.0 (3-11) BUN 20 H (7-18) mg/dl Creatinine 0.49 L (0.6-1.2) mg/dl Est Cr Clr Drug Dosing 107.5 ml/min Est GFR ( Amer) 112.8 ml/min Est GFR (Non-Af Amer) 97.3 ml/min BUN/Creatinine Ratio 40.6 H (10-20) Glucose 183 H (70-99) mg/dl POC Glucose 186 H (70-99) mg/dl Calcium 8.8 (8.5-10.1) mg/dl Magnesium (1.8-2.4) mg/dl Total Creatine Kinase 68 (26-192) U/L Urine Color Urine Appearance (Clear) Urine pH (4.5-7.5) Ur Specific [place] (1.000-1.030) Urine Protein (Negative) Urine Glucose (UA) (Negative) Urine Ketones (Negative) Urine Blood (Negative) Urine Nitrite (Negative) Urine Bilirubin (Negative) Urine Urobilinogen (Negative) Ur Leukocyte Esterase (Negative) Urine WBC (Auto) (0-5) /hpf Urine RBC (Auto) (0-4) /hpf U Hyaline Cast (Auto) (0-5) /lpf U Epithel Cells (Auto) (0-5) /lpf Urine Bacteria (Auto) (Negative) Urine Yeast 10/30/20 10/30/20 10/30/20 Range/Units 19:48 16:51 08:37 WBC (4.8-10.8) K/uL RBC (4.2-5.4) M/uL Hgb (12.0-16.0) g/dL Hct (37-47) % MCV (80-100) fL MCH (25-34) pg MCHC (32-36) g/dL RDW Std Deviation (36.4-46.3) fL RDW Coeff of Thompson (11.5-14.5) % Plt Count (130-400) K/uL MPV (7.4-10.4) fL ESR 52 H (0-30) mm/hr Sodium (136-145) mmol/L Potassium (3.5-5.1) mmol/L Chloride (98-107) mmol/L Carbon Dioxide (21-32) mmol/L Anion Gap (3-11) BUN (7-18) mg/dl Creatinine (0.6-1.2) mg/dl Est Cr Clr Drug Dosing ml/min Est GFR ( Amer) ml/min Est GFR (Non-Af Amer) ml/min BUN/Creatinine Ratio (10-20) Glucose (70-99) mg/dl POC Glucose 100 H (70-99) mg/dl Calcium (8.5-10.1) mg/dl Magnesium (1.8-2.4) mg/dl Total Creatine Kinase (26-192) U/L Urine Color Yellow Urine Appearance Clear (Clear) Urine pH 5.0 (4.5-7.5) Ur Specific [place] 1.019 (1.000-1.030) Urine Protein Negative (Negative) Urine Glucose (UA) Negative (Negative) Urine Ketones Negative (Negative) Urine Blood Negative (Negative) Urine Nitrite Negative (Negative) Urine Bilirubin Negative (Negative) Urine Urobilinogen Negative (Negative) Ur Leukocyte Esterase 1+ H (Negative) Urine WBC (Auto) 5-10 H (0-5) /hpf Urine RBC (Auto) 0-4 (0-4) /hpf U Hyaline Cast (Auto) 1-5 (0-5) /lpf U Epithel Cells (Auto) >30 H (0-5) /lpf Urine Bacteria (Auto) Negative (Negative) Urine Yeast Not Reportable Diagnostic Findings Chest X-Ray 10/30/20 19:38 XR chest 1V portable HISTORY: fever COMPARISON: Chest 10/25/2020. FINDINGS: Cardiac silhouette remains top normal in size. Left-sided dual-chamber pacemaker. There is a left shoulder prosthesis, unchanged. No pneumothorax. No pleural effusions. No new focal lung consolidations to suggest pneumonia. No evidence for pulmonary edema. Partially visualized lumbar spinal fusion hardware is again noted. IMPRESSION: No significant change compared to the prior study. No acute process. ACT 112: Negative or not required by law. Electronically signed by: Shan Hollingsworth M.D. 10/31/2020 8:34 AM PG Care Time/CCT Total # of Minutes Spent Total Time Spent with Patient: Total time spent is greater than 50% in coordina tion of care (as documented) at patient's floor/unit and/or counseling patient: Coding Level of Care Code 80934 Subseq Hosp Care Lvl 3 Diagnoses Fever R50.9 Recurrent falls R29.6 Acute head injury S09.90XA Encounter type: initial encounter UTI (urinary tract infection) N39.0 Hematuria presence: without hematuria Urinary tract infection type: site unspecified Left wrist pain M25.532 Metastatic breast cancer C50.919 Weakness of both legs R29.898 Diabetes mellitus type 2, uncontrolled E11.65 Glycemic state: with hyperglycemia Atrial fibrillation I48.91 Atrial fibrillation type: unspecified Normocytic anemia D64.9 Depression F32.9 Depression Type: unspecified Hypercholesterolemia E78.00 Hypothyroidism E03.9 Hypothyroidism type: unspecified Carpal tunnel syndrome of right wrist G56.01 (1) Acute head injury Encounter type: initial encounter Qualified Code(s): S09.90XA - Unspecified injury of head, initial encounter (2) UTI (urinary tract infection) Hematuria presence: without hematuria Urinary tract infection type: site unspecified Qualified Code(s): N39.0 - Urinary tract infection, site not specified (3) Atrial fibrillation Atrial fibrillation type: unspecified Qualified Code(s): I48.91 - Unspecified atrial fibrillation (4) Depression Depression Type: unspecified Qualified Code(s): F32.9 - Major depressive disorder, single episode, unspecified (5) Hypothyroidism Hypothyroidism type: unspecified Qualified Code(s): E03.9 - Hypothyroidism, unspecified (6) Diabetes mellitus type 2, uncontrolled Glycemic state: with hyperglycemia Qualified Code(s): E11.65 - Type 2 diabetes mellitus with hyperglycemia
[2020-10-31] MEDS: CEFEPIME 1,000 MG in SYRINGE 0 ML IV SCH ×2 (09:19→21:13)
[2020-10-31] MEDS ORDERED: ACETAMINOPHEN 325 MG TAB PO PRN (12:56)
[2020-10-31] MEDS: DICLOFENAC SOD 1% GEL 100 GM TUBE EXT SCH ×3 (13:28→21:01)
[2020-10-31] MEDS: LIDOCAINE 5% 1 PATCH TD SCH (13:28)
--- NOTE | 2020-10-31 15:45 | Ultrasound Report ---
RENAL ULTRASOUND CLINICAL HISTORY: calcium oxylate in UA. ?stone, Back/leg pain COMPARISON STUDY: CT of the abdomen and pelvis September 01, 2020. TECHNIQUE: Sonography of the kidneys and the urinary bladder was performed. FINDINGS: The kidney measures 9.9 x 4.2 x 4.2 cm and the left measures 9.3 x 5.4 x 4.5 cm. There is n o hydronephrosis. Several left renal calculi measure up to 8 mm. There may be small calculi within lo wer pole of the right kidney. Both ureteral jets were identified. No renal mass was identified by son ography. IMPRESSION: 1. No hydronephrosis. 2. Bilateral nephrolithiasis. ACT 112: Negative or not required by law. Electronically signed by: Eladio Keane M.D. 10/31/2020 3:44 PM
[2020-10-31] MEDS: traMADol HCL 50 MG TABLET PO PRN ×2 (16:29→21:07)
[2020-10-31] MEDS: ATORVASTATIN 40 MG TAB PO SCH (21:01)
[2020-10-31] MEDS: HEPARIN 100 UNIT/ML 5ML FLUSH FLUSH PRN (21:13)
[2020-10-31] MEDS: ZOLPIDEM TARTRATE 5 MG TAB PO PRN (22:34)
[2020-11-01] MEDS: oxyCODONE HCL IR 5 MG TAB (IMMEDIATE RELEASE) PO PRN ×4 (02:52→18:34)
[2020-11-01] MEDS: LEVOTHYROXINE SODIUM 25 MCG TABLET PO SCH (05:44)
[2020-11-01 06:31] LABS: Hematocrit (blood only) 31.8 % (37-47); Hemoglobin 10.3 g/dL (12.0-16.0); Mean Corpuscular Hemoglobin 29.6 pg (25-34); Mean Corpuscular Hgb Conc 32.4 g/dL (32-36); Mean Corpuscular Volume 91.4 fL (80-100); Mean Platelet Volume 9.9 fL (7.4-10.4); Platelet Count 242 K/uL (130-400); RDW Coefficient of Variation 21.6 % (11.5-14.5); RDW Standard Deviation 71.5 fL (36.4-46.3); Red Blood Count 3.48 M/uL (4.2-5.4); White Blood Count 6.74 K/uL (4.8-10.8)
[2020-11-01 06:56] LABS: BUN Creatinine Ratio 43.7 (10-20); Creatinine Clr Calc Pharmacy 97.5 ml/min; Est GFR (African American) 109.3 ml/min; Est GFR (Non-African American) 94.3 ml/min; Potassium 4.7 mmol/L (3.5-5.1)
[2020-11-01] MEDS: INSULIN ASPART 100 UNITS/ML 3 ML PEN SC SCH ×4 (09:13→21:27)
--- NOTE | 2020-11-01 09:16 | Hospitalist Progress Note ---
Date of Service November 01, 2020 Assessment & Plan (1) Recurrent falls: Suspect from vertigo from description as well as general deconditioning Recommend outpatient vestibular therapy as outpatient Mildly orthostatic but I suspect this is not her ongoing dizziness, possibly related to chemo Less likely secondary to gabapentin - will continue this for now, recently decreased to 300mg PO BID by Dr Lovett Fall precautions PT/OT evaluations-- pending placement. [facility] auth denied.. [facility] as backup. Patient agreeable to rehab Pain control --> increased oxycodone to 1-2 tablets prn -- effective --> voltaren gel QID -- effective and continuing --> Lidocaine patch -- to neck and shoulder PATIENT HAD FALL THIS MORNING STANDING UP FROM BATHROOM. NO LOC/TRAUMA TO HEAD did have injury to L knee -- will obtain X ray but likely with hematoma as well. Will need to monitor blood counts/possibly hold xarelto as well. No headache but has paraspinal tightness R side -- ordered lidocaine patch Pending xray, reconsult orthopedics if needed -- will have nursing obtain repeat orthostatic VS this morning -- NOT YET OBTAINED Will order 500cc NS for some mild dehydration, additional pending orthostatics Continue to monitor (2) Fever: Temp 38.1C recorded in system last evening. Unsure if possibly on the wrong patient (patient denies ever having fever or chills yesterday) ,but given ca and immunocompromised state having temp while on Rocephin, switched to Cefepime and will continue for now Repeat CXR without acute process Repeat UA without bacteria Blood cultures NGTD No further temperature, WBC wnl Thought to be possibly charted on wrong patient. Will d/c Cefepime at this time Continue to monitor off abx (3) Acute head injury: s/p fall with trauma to head - CT head with scalp hematoma, CT cervical spine with no acute process. No focal neurological deficits Patient is on Rivaroxaban anticoagulation for history of atrial fibrillation -- held and resumed on 10/29 (4) UTI (urinary tract infection): UTI - patient is relatively immunocompromised given history of malignancy on chemotherapy. Dysuria. Urine cx with Ecoli/Klebsiella, pansensitive Completed course of Ceftriaxone x 5 days as well as dose of Fluconazole 150mg x 1 for vaginal candidiasis on 10/28 --> switched to Cefepime as above. Continue for now but repeat UA without bacteria No symptoms reported D/c abx today Of note, renal US with b/l nephrolithiasis but no hydro (obtained due to back pain s/p fall and hx calcium oxalate on prior UA). No CVA tenderness (5) Left wrist pain: Appreciate orthopedic consult. No wrist fracture. -Continue wrist splint 2 weeks then can discard -Oxycodone 5-10mg Q4H for pain, elevate limb as much as possible -Acetaminophen 1g TID RUTH -- changed to prn given above changes as she frequently reaches max and will help to see if any fevers off of this (no further fevers) (6) Metastatic breast cancer: Noted. [facility] to receive her final cycle of chemotherapy starting month after completes rehab she is to call their office closer to d/c from rehab - then to have re-imaging (7) Weakness of both legs: Patient with no focal weakness on my physical exam. She reports muscular weakness and giving out. Do not think she needs imaging of spinal cord - h/o metastatic cancer is concerning. CT head negative but has not had MRI or spinal cord imaging Will check ESR for possible PMR? -- elevated but likely due to age CK 68 B12 817 -PT/OT evaluation as above -Fall precautions (8) Diabetes mellitus type 2, uncontrolled: Chronic -Lantus 15 units BID - hypoglycemia, will reduce this to 5-15 units BID based on glucose levels -ISS -Goal blood sugar 100 - 140 -Continue Lisinopril (9) Atrial fibrillation: Chronic. Patient had both Diltiazem and Amiodarone on home list - has not filled them recently. Per review of notes, patient is on Diltiazem Continue Diltiazem Xarelto as above (10) Normocytic anemia: Hgb 9.3, at baseline. Repeat hgb 10.3 (11) Depression: Chronic -Continue Buspirone -Continue Duloxetine (12) Hypercholesterolemia: Chronic -Continue Atorvastatin Checking CK due to reported weakness -- wnl (13) Hypothyroidism: Chronic. TSH WNL 10/25 -Continue Synthroid (14) Carpal tunnel syndrome of right wrist: Recommend following up as outpatient Dispo: awaiting rehab imaging pending for L knee Admission and Anticipated Discharge Date Admission Date: October 25, 2020 Supervising Physician Co-Signing Physician Notes AZEEM Supervision Note: I did not personally see or examine the patient today, but I verified all edwards points of AZEEM Rene's assessment and plan with the following exceptions/additions: None Subjective Patient evaluated this afternoon. Had a fall last evening while standing up from bathroom to pull up her underwear. Does not believe she hit her head at all but does have some tightness to her right paraspinal muscles with rotation. She notes lidocaine patch yesterday was helpful but she has that on her left shoulder now with relief. She believes she had her left knee buckle and twist when she fell and does have pain in medial aspect of the knee and pain with ambulation. Discussed obtaining xray given apparent hematoma and to ensure no fx. Patient did become saddened but agreeable to imaging as she is just getting over broken ankle on that same side as well as sprain to her left wrist. She states she got tramadol this morning as was not d/c yesterday as she has this at home before without help and would like dose of oxycodone. Will get RN to administer. She does note the voltaren gel effective and we will continue this. She is upset about not getting chemo today but did seem calmed down after discu ssing in current state/weakness/falls that it would be better for some rehab and get her stronger and that cancer center able to do as soon as d/c from rehab. No fever, chills, chest pain, shortness of breath, abdominal pain, nausea, vomiting. Eating/drinking without issue. Had good BM. Questions/concerns addressed at this time. Still awaiting rehab. Review of Systems Review of Systems: All systems reviewed & are unremarkable except as noted in HPI & below Physical Exam 2 Constitutional: well developed and cooperative; no acute distress and + uncomfortable (reporting pain all over, worse to L knee) no hair Eyes: + anicteric sclerae and PERRL ENMT: slightly dry mm Neck: normal visual inspection and trachea midline Respiratory: normal respiratory effort, lungs clear to auscultation Cardiovascular: Rate/Rhythm: regular rate and regular rhythm Heart Sounds: + murmur Vessels: no JVD Extremities: normal capillary refill and + pedal edema (Trace b/l ankles); no calf tenderness Chest (Breasts): Additional Comments: R -A port, no erythema, c/d/i Gastrointestinal (Abdomen): normal bowel sounds, soft, nontender, no hepatosplenomegaly Musculoskeletal: brace to L ankle L knee with edema/effusion to medial aspect. tender to palpation, minimal warmth --> NVI, pulses palpable bilaterally Neck: tenderness to R paraspinal muscles and increase pain with rotation but not flexion/extension Split to L wrist Hematoma to L forehead, healing ecchymosis to L back Skin: Trauma: + hematoma (left frontal scalp, improving) Neurologic: moves all extremities and awake; not confused Psychiatric: Orientation: alert and oriented x 3 Affect: + tearful affect (at times) Results & Data Results & Data ([facility]) Vital Signs (Past 12 Hours) Vital Signs Temp Pulse Resp BP BP Pulse Ox 11/01/20 07:58 36.5 C 81 19 131/87 98 11/01/20 00:57 36.8 C 64 16 146/77 H 97 10/31/20 21:48 36.6 C 64 16 144/75 H 97 Laboratory Results 11/01/20 11/01/20 11/01/20 Range/Units 07:45 06:01 06:01 WBC 6.74 (4.8-10.8) K/uL RBC 3.48 L (4.2-5.4) M/uL Hgb 10.3 L (12.0-16.0) g/dL Hct 31.8 L (37-47) % MCV 91.4 (80-100) fL MCH 29.6 (25-34) pg MCHC 32.4 (32-36) g/dL RDW Std Deviation 71.5 H (36.4-46.3) fL RDW Coeff of Thompson 21.6 H (11.5-14.5) % Plt Count 242 (130-400) K/uL MPV 9.9 (7.4-10.4) fL Sodium 138 (136-145) mmol/L Potassium 4.7 (3.5-5.1) mmol/L Chloride 103 (98-107) mmol/L Carbon Dioxide 30 (21-32) mmol/L Anion Gap 5.0 (3-11) BUN 24 H (7-18) mg/dl Creatinine 0.54 L (0.6-1.2) mg/dl Est Cr Clr Drug Dosing 97.5 ml/min Est GFR ( Amer) 109.3 ml/min Est GFR (Non-Af Amer) 94.3 ml/min BUN/Creatinine Ratio 43.7 H (10-20) Glucose 151 H (70-99) mg/dl POC Glucose 162 H (70-99) mg/dl Calcium 9.0 (8.5-10.1) mg/dl Magnesium (1.8-2.4) mg/dl Vitamin B12 (193-986) pg/ml 10/31/20 10/31/20 10/31/20 Range/Units 20:30 17:22 12:07 WBC (4.8-10.8) K/uL RBC (4.2-5.4) M/uL Hgb (12.0-16.0) g/dL Hct (37-47) % MCV (80-100) fL MCH (25-34) pg MCHC (32-36) g/dL RDW Std Deviation (36.4-46.3) fL RDW Coeff of Thompson (11.5-14.5) % Plt Count (130-400) K/uL MPV (7.4-10.4) fL Sodium (136-145) mmol/L Potassium (3.5-5.1) mmol/L Chloride (98-107) mmol/L Carbon Dioxide (21-32) mmol/L Anion Gap (3-11) BUN (7-18) mg/dl Creatinine (0.6-1.2) mg/dl Est Cr Clr Drug Dosing ml/min Est GFR ( Amer) ml/min Est GFR (Non-Af Amer) ml/min BUN/Creatinine Ratio (10-20) Glucose (70-99) mg/dl POC Glucose 265 H 89 249 H (70-99) mg/dl Calcium (8.5-10.1) mg/dl Magnesium (1.8-2.4) mg/dl Vitamin B12 (193-986) pg/ml 10/31/20 10/30/20 Range/Units 06:18 08:37 WBC (4.8-10.8) K/uL RBC (4.2-5.4) M/uL Hgb (12.0-16.0) g/dL Hct (37-47) % MCV (80-100) fL MCH (25-34) pg MCHC (32-36) g/dL RDW Std Deviation (36.4-46.3) fL RDW Coeff of Thompson (11.5-14.5) % Plt Count (130-400) K/uL MPV (7.4-10.4) fL Sodium (136-145) mmol/L Potassium (3.5-5.1) mmol/L Chloride (98-107) mmol/L Carbon Dioxide (21-32) mmol/L Anion Gap (3-11) BUN (7-18) mg/dl Creatinine (0.6-1.2) mg/dl Est Cr Clr Drug Dosing ml/min Est GFR ( Amer) ml/min Est GFR (Non-Af Amer) ml/min BUN/Creatinine Ratio (10-20) Glucose (70-99) mg/dl POC Glucose (70-99) mg/dl Calcium (8.5-10.1) mg/dl Magnesium 2.1 (1.8-2.4) mg/dl Vitamin B12 817 (193-986) pg/ml PG Care Time/CCT Total # of Minutes Spent Total Time Spent with Patient: Total time spent is greater than 50% in coordination of care (as documented) at patient's floor/unit and/or counseling patient: Coding Level of Care Code 13670 Subseq Hosp Care Lvl 3 Diagnoses Recurrent falls R29.6 Fever R50.9 Acute head injury S09.90XA Encounter type: initial encounter UTI (urinary tract infection) N39.0 Hematuria presence: without hematuria Urinary tract infection type: site unspecified Left wrist pain M25.532 Metastatic breast cancer C50.919 Weakness of both legs R29.898 Diabetes mellitus type 2, uncontrolled E11.65 Glycemic state: with hyperglycemia Atrial fibrillation I48.91 Atrial fibrillation type: unspecified Normocytic anemia D64.9 Depression F32.9 Depression Type: unspecified Hypercholesterolemia E78.00 Hypothyroidism E03.9 Hypothyroidism type: unspecified Carpal tunnel syndrome of right wrist G56.01 (1) Acute head injury Encounter type: initial encounter Qualified Code(s): S09.90XA - Unspecified injury of head, initial encounter (2) UTI (urinary tract infection) Hematuria presence: without hematuria Urinary tract infection type: site unspecified Qualified Code(s): N39.0 - Urinary tract infection, site not specified (3) Atrial fibrillation Atrial fibrillation type: unspecified Qualified Code(s): I48.91 - Unspecified atrial fibrillation (4) Depression Depression Type: unspecified Qualified Code(s): F32.9 - Major depressive disorder, single episode, unspecified (5) Hypothyroidism Hypothyroidism type: unspecified Qualified Code(s): E03.9 - Hypothyroidism, unspecified (6) Diabetes mellitus type 2, uncontrolled Glycemic state: with hyperglycemia Qualified Code(s): E11.65 - Type 2 diabetes mellitus with hyperglycemia
[2020-11-01] MEDS: dilTIAZem ER 120 MG CAPCR PO SCH (09:19)
[2020-11-01] MEDS: GABAPENTIN 600 MG TAB PO SCH ×2 (09:20→20:16)
[2020-11-01] MEDS: busPIRone 15 MG TAB PO SCH ×2 (09:20→20:17)
[2020-11-01] MEDS: PANTOprazole 40 MG TAB PO SCH (09:21)
[2020-11-01] MEDS: CEFEPIME 1,000 MG in SYRINGE 0 ML IV SCH (09:21)
[2020-11-01] MEDS: DICLOFENAC SOD 1% GEL 100 GM TUBE EXT SCH ×4 (09:22→20:17)
[2020-11-01] MEDS: RIVAROXABAN 20 MG TAB PO SCH (09:22)
[2020-11-01] MEDS: CHOLECALCIFEROL 1,000 UNITS 25 MCG TAB PO SCH (09:23)
[2020-11-01] MEDS: lisinopril 10 MG TAB PO SCH (09:23)
[2020-11-01] MEDS: DULoxetine HCL 60 MG CAP PO SCH (09:24)
[2020-11-01] MEDS: INSULIN GLARGINE SOLOSTAR 100 UNITS/ML 3 ML PEN SC SCH ×2 (09:25→21:27)
[2020-11-01] MEDS: LIDOCAINE 5% 1 PATCH TD SCH ×3 (09:26→16:29)
[2020-11-01] MEDS: traMADol HCL 50 MG TABLET PO PRN (11:50)
[2020-11-01] MEDS ORDERED: SODIUM CHLORIDE 0.9% 500 ML IV SCH (14:00)
--- NOTE | 2020-11-01 15:19 | XRay Report ---
XR knee LT 3V CLINICAL HISTORY: s/p fall, eval for fx/hematoma COMPARISON: June 08, 2010 DISCUSSION: No definite acute fracture or dislocation seen however evaluation is limited due to severe diffuse os teopenia. Prosthetic left knee joint is seen. Soft tissue edema is demonstrated. IMPRESSION: No acute fracture dislocation. Limited exam. ACT 112: Negative or not required by law. The above report was generated using voice recognition software. It may contain grammatical, syntax o r spelling errors. Electronically signed by: Marcela Cortez DO 11/01/2020 3:17 PM
[2020-11-01] MEDS: SODIUM CHLORIDE 0.9% 1000ML 1,000 ML IV SCH (19:47)
[2020-11-01] MEDS: ATORVASTATIN 40 MG TAB PO SCH (20:17)
--- NOTE | 2020-11-01 20:19 | Orthopedic Consultation ---
Date of Consultation November 01, 2020 History of Present Illness Requesting Physician: Ivan Freitas MD Attending Physician: Makenna Rodriguez MD Allergies Allergy/AdvReac Type Severity Reaction Status Date / Time metformin AdvReac Severe Verified 10/25/20 19:09 Home Medications Medication Instructions Recorded Confirmed Type cyanocobalamin (vitamin B-12) 1,000 mcg IM MONTHLY ea 02/04/18 10/25/20 History 1,000 mcg/mL injection kit multivitamin 1 tab PO QAM 02/04/18 10/25/20 History cholecalciferol (vitamin D3) 1,000 unit PO QAM 07/29/19 10/25/20 History [Vitamin D3] atorvastatin 40 mg tablet 40 mg PO HS #90 tab 11/29/19 10/25/20 Rx meclizine 25 mg tablet 25 mg PO Q6H PRN #30 tab 01/12/20 10/25/20 Rx diltiazem HCl [Taztia XT] 120 mg PO QAM #90 cap 04/06/20 10/25/20 Rx insulin glargine 100 unit/mL (3 31 unit SQ HS #15 ml 06/08/20 10/25/20 Rx mL) subcutaneous pen dulaglutide 0.75 mg/0.5 mL 0.75 mg SUBCUT WK #2 ml 06/20/20 10/25/20 Rx subcutaneous pen injector rivaroxaban 20 mg tablet 20 mg PO QAM 08/14/20 10/25/20 History pantoprazole 40 mg tablet,delayed 40 mg PO QAM #90 tab 09/07/20 10/25/20 Rx release amiodarone 200 mg tablet 200 mg PO QAM 09/21/20 10/25/20 History calcium 1 mg PO DAILY 09/27/20 10/25/20 History lisinopril 10 mg tablet 10 mg PO QAM #90 tab 10/09/20 10/25/20 Rx acetaminophen 500 mg tablet 1,000 mg PO TID PRN #90 tab 10/17/20 10/25/20 Rx tramadol 50 mg tablet 50 mg PO Q12H PRN #60 tab 10/17/20 10/25/20 Rx levothyroxine 25 mcg tablet 37.5 mcg PO QAM #135 tab 10/24/20 10/25/20 Rx duloxetine 60 mg PO QAM 10/25/20 10/25/20 History gabapentin 600 mg tablet 300 mg PO BID #60 tab 10/25/20 10/25/20 Rx glipizide 10 mg tablet 5 mg PO BID tab 10/25/20 10/25/20 History buspirone 15 mg PO BID 10/30/20 10/30/20 History Patient History Medical History Anxiety Aortic stenosis Mild AV stenosis per 12/2019 ECHO. (MERLENE= 1.6cm2; AV mean gradient= 7.8mmHg; AV max velocity= 1.939 m/s) Atrial fibrillation hx Atrial flutter hx Bilateral hip bursitis Cervical spine disease Chronic anemia Chronic pain Degenerative disc disease Depression Diabetes mellitus, type 2 IDDM Gastroesophageal reflux disease Hx of cardiac pacemaker [facility]. [employer] device. follows with Dr Ramires Hx of tachycardia-bradycardia syndrome reason for pacemaker Hypercholesterolemia Hypothyroidism Infiltrating ductal carcinoma of left breast Initially dx'ed in 2015- s/p lumpectomy, XRT and anastrozole Metastatic breast cancer March 2020 Liver mass Pt denies but 05/17/20 PET scan shows 2.5 right hepatic lobe mass consistent with known hepatic metastasis Metastatic lung carcinoma Obstructive sleep apnea does not wear machine Peripheral neuropathy Surgical History H/O bilateral hip replacements History of section History of colonoscopy History of evacuation of hematoma (08/30/13) Hematoma right breast and right chest 08/31/13 Dr. Shah History of total knee arthroplasty bilateral Port-A-Cath in place (06/13/20) Insertion of Mediport Right Subclavian Dr. Shah 06/13/2020 Status post appendectomy Status post arthroscopy of left shoulder Status post gastric bypass for obesity Status post laparoscopic cholecystectomy Status post lumbar spine surgery for decompression of spinal cord Status post panniculectomy Status post partial mastectomy of left breast Status post placement of cardiac pacemaker Status post repair of ventral hernia Status post total abdominal hysterectomy and bilateral salpingo-oophorectomy Status post total hip replacement, bilateral Family History Unknown Breast cancer Emphysema lung Mother Diabetes Heart disease Father Heart disease Other No family history of adverse response to anesthesia Denies family history of Ovarian cancer Prostate cancer Coronary heart disease Colorectal cancer Social History Smoking Status: Former smoker Tobacco Type: Cigarettes packs per day: 2; Second Hand Exposure: Yes; Hx Alcohol Use: No Hx Substance Use: No Preferred Language: Turkish Communication Ability: Effective Hearing Ability: Normal Emergency Technician Required: No Beliefs That Will Affect Care: None marital status: Current Living Situation: Spouse current occupational status: retired Feels Safe at Home: Yes Childhood Exposure to Second-Hand Smoke: Yes caffeine: Yes Dental Care, Regularly: No Physical Activity Frequency: 1-2 Times per Week Seatbelt Use: always Sunscreen Use: No Assistive Devices: Glasses and Walker Results & Data ([facility]) Vital Signs (Past 12 Hours) Vital Signs Temp Pulse Resp BP Pulse Ox 11/01/20 15:23 36.8 C 87 18 122/86 95
[2020-11-01] MEDS: ZOLPIDEM TARTRATE 5 MG TAB PO PRN (21:37)
--- NOTE | 2020-11-02 00:04 | Orthopedic Consultation ---
Date of Consultation November 02, 2020 Assessment & Plan (1) Knee pain: Patient fell last evening while in hospital. Pain likely due to contusion. RICE WBAT with walker. PT/OT Continue pain control Continue care per primary service. Present on Admission?: No History of Present Illness Reason for Consultation: Left knee pain Requesting Physician: Ivan Freitas MD Attending Physician: Makenna Rodriguez MD History of Present Illness Faith is a pleasant 70 year old female who fell last evening injuring her left knee. She is having difficulty bearing weight. She points to the inside aspect of her knee where she has some swelling and bruising. She had the left knee replaced by Dr. Rosado approximately 15 years ago. I was consulted as I am covering for Dr. Huang who saw her last week for her wrist and is out of town. Allergies Allergy/AdvReac Type Severity Reaction Status Date / Time metformin AdvReac Severe Verified 10/25/20 19:09 Home Medications Medication Instructions Recorded Confirmed Type cyanocobalamin (vitamin B-12) 1,000 mcg IM MONTHLY ea 02/04/18 10/25/20 History 1,000 mcg/mL injection kit multivitamin 1 tab PO QAM 02/04/18 10/25/20 History cholecalciferol (vitamin D3) 1,000 unit PO QAM 07/29/19 10/25/20 History [Vitamin D3] atorvastatin 40 mg tablet 40 mg PO HS #90 tab 11/29/19 10/25/20 Rx meclizine 25 mg tablet 25 mg PO Q6H PRN #30 tab 01/12/20 10/25/20 Rx diltiazem HCl [Taztia XT] 120 mg PO QAM #90 cap 04/06/20 10/25/20 Rx insulin glargine 100 unit/mL (3 31 unit SQ HS #15 ml 06/08/20 10/25/20 Rx mL) subcutaneous pen dulaglutide 0.75 mg/0.5 mL 0.75 mg SUBCUT WK #2 ml 06/20/20 10/25/20 Rx subcutaneous pen injector rivaroxaban 20 mg tablet 20 mg PO QAM 08/14/20 10/25/20 History pantoprazole 40 mg tablet,delayed 40 mg PO QAM #90 tab 09/07/20 10/25/20 Rx release amiodarone 200 mg tablet 200 mg PO QAM 09/21/20 10/25/20 History calcium 1 mg PO DAILY 09/27/20 10/25/20 History lisinopril 10 mg tablet 10 mg PO QAM #90 tab 10/09/20 10/25/20 Rx acetaminophen 500 mg tablet 1,000 mg PO TID PRN #90 tab 10/17/20 10/25/20 Rx tramadol 50 mg tablet 50 mg PO Q12H PRN #60 tab 10/17/20 10/25/20 Rx levothyroxine 25 mcg tablet 37.5 mcg PO QAM #135 tab 10/24/20 10/25/20 Rx duloxetine 60 mg PO QAM 10/25/20 10/25/20 History gabapentin 600 mg tablet 300 mg PO BID #60 tab 10/25/20 10/25/20 Rx glipizide 10 mg tablet 5 mg PO BID tab 10/25/20 10/25/20 History buspirone 15 mg PO BID 10/30/20 10/30/20 History Patient History Medical History Anxiety Aortic stenosis Mild AV stenosis per 12/2019 ECHO. (MERLENE= 1.6cm2; AV mean gradient= 7.8mmHg; AV max velocity= 1.939 m/s) Atrial fibrillation hx Atrial flutter hx Bilateral hip bursitis Cervical spine disease Chronic anemia Chronic pain Degenerative disc disease Depression Diabetes mellitus, type 2 IDDM Gastroesophageal reflux disease Hx of cardiac pacemaker [facility]. [employer] device. follows with Dr Ramires Hx of tachycardia-bradycardia syndrome reason for pacemaker Hypercholesterolemia Hypothyroidism Infiltrating ductal carcinoma of left breast Initially dx'ed in 2016- s/p lumpectomy, XRT and anastrozole Metastatic breast cancer March 2020 Liver mass Pt denies but 05/17/20 PET scan shows 2.5 right hepatic lobe mass consistent with known hepatic metastasis Metastatic lung carcinoma Obstructive sleep apnea does not wear machine Peripheral neuropathy Surgical History H/O bilateral hip replacements History of section History of colonoscopy History of evacuation of hematoma (08/30/13) Hematoma right breast and right chest 08/31/13 Dr. Shah History of total knee arthroplasty bilateral Port-A-Cath in place (06/13/20) Insertion of Mediport Right Subclavian Dr. Shah 06/13/2020 Status post appendectomy Status post arthroscopy of left shoulder Status post gastric bypass for obesity Status post laparoscopic cholecystectomy Status post lumbar spine surgery for decompression of spinal cord Status post panniculectomy Status post partial mastectomy of left breast Status post placement of cardiac pacemaker Status post repair of ventral hernia Status post total abdominal hysterectomy and bilateral salpingo-oophorectomy Status post total hip replacement, bilateral Family History Unknown Breast cancer Emphysema lung Mother Diabetes Heart disease Father Heart disease Other No family history of adverse response to anesthesia Denies family history of Ovarian cancer Prostate cancer Coronary heart disease Colorectal cancer Social History Smoking Status: Former smoker Tobacco Type: Cigarettes packs per day: 2; Second Hand Exposure: Yes; Hx Alcohol Use: No Hx Substance Use: No Preferred Language: Chinese Communication Ability: Effective Hearing Ability: Normal 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 BCR < 2 sec. Wiggling toes and ankle. Able to preform straight leg raise and actively extend the knee. Previous incision is well healed. + Tenderness to palpation over medial aspect of the knee. ROM 0-90 degrees. Calf soft and non-tender. + Swelling and mild bruising medial aspect of the knee. Results & Data ([facility]) Vital Signs (Past 12 Hours) Vital Signs Temp Pulse Resp BP BP Pulse Ox 11/01/20 22:27 36.5 C 87 18 143/73 H 93 11/01/20 15:23 36.8 C 87 18 122/86 95 Diagnostic Findings XR knee LT 3V CLINICAL HISTORY: s/p fall, eval for fx/hematoma COMPARISON: June 08, 2010 DISCUSSION: No definite acute fracture or dislocation seen however evaluation is limited due to severe diffuse osteopenia. Prosthetic left knee joint is seen. Soft tissue edema is demonstrated. IMPRESSION: No acute fracture dislocation. Limited exam.
[2020-11-02] MEDS: oxyCODONE HCL IR 5 MG TAB (IMMEDIATE RELEASE) PO PRN ×5 (00:42→20:20)
[2020-11-02] MEDS: LEVOTHYROXINE SODIUM 25 MCG TABLET PO SCH (04:45)
[2020-11-02] MEDS: SODIUM CHLORIDE 0.9% 1000ML 1,000 ML IV SCH ×2 (05:53→17:42)
[2020-11-02 06:18] LABS: Hematocrit (blood only) 30.1 % (37-47); Hemoglobin 9.6 g/dL (12.0-16.0); Mean Corpuscular Hemoglobin 29.3 pg (25-34); Mean Corpuscular Hgb Conc 31.9 g/dL (32-36); Mean Corpuscular Volume 91.8 fL (80-100); Mean Platelet Volume 10.2 fL (7.4-10.4); Platelet Count 225 K/uL (130-400); RDW Coefficient of Variation 21.7 % (11.5-14.5); RDW Standard Deviation 72.3 fL (36.4-46.3); Red Blood Count 3.28 M/uL (4.2-5.4); White Blood Count 6.06 K/uL (4.8-10.8)
[2020-11-02 06:54] LABS: BUN Creatinine Ratio 34.4 (10-20); Calcium 8.7 mg/dl (8.5-10.1); Creatinine Clr Calc Pharmacy 99.4 ml/min; Est GFR (African American) 109.9 ml/min; Est GFR (Non-African American) 94.9 ml/min; Potassium 4.4 mmol/L (3.5-5.1)
--- NOTE | 2020-11-02 08:48 | Hospitalist Progress Note ---
Date of Service November 02, 2020 Assessment & Plan (1) Recurrent falls: Suspect from vertigo from description as well as general deconditioning Recommend outpatient vestibular therapy as outpatient Mildly orthostatic but I suspect this is not her ongoing dizziness, possibly related to chemo Less likely secondary to gabapentin - will continue this for now, recently decreased to 300mg PO BID by Dr Lovett Fall precautions PT/OT evaluations-- pending placement. [facility] auth denied.. [facility] as backup. Patient agreeable to rehab Pain control --> increased oxycodone to 1-2 tablets prn -- effective --> voltaren gel QID -- effective and continuing --> Lidocaine patch -- to neck and shoulder PATIENT HAD FALL MORNING 11/01 STANDING UP FROM BATHROOM. NO LOC/TRAUMA TO HEAD did have reported injury to L knee -- Xray without acute fracture Eval by ortho -- ice/elevation + Orthostatics -- 500cc NS provided and continued on NSS @ 80cc/hr Will repeat orthostatics again this morning Peer-peer completed and plans for SNF at rehab. Vit D low -- ergocalciferol 13878 weekly for 4-6 weeks then resume her usual dose/follow up with PCP (2) Fever: Temp 38.1C recorded in system previously Unsure if possibly on the wrong patient (patient denies ever having fever or chills) ,but given ca and immunocompromised state having temp while on Rocephin, switched to Cefepime Repeat CXR without acute process Repeat UA without bacteria Blood cultures NGTD No further temperature, WBC wnl Thought to be possibly charted on wrong patient. Cefepime d/c'd -- no further fevers BCx NGTD Continue to monitor off abx (3) Acute head injury: s/p fall with trauma to head - CT head with scalp hematoma, CT cervical spine with no acute process. No focal neurological deficits Patient is on Rivaroxaban anticoagulation for history of atrial fibrillation -- held and resumed on 10/29 (4) UTI (urinary tract infection): UTI - patient is relatively immunocompromised given history of malignancy on chemotherapy. Dysuria. Urine cx with Ecoli/Klebsiella, pansensitive Completed course of Ceftriaxone x 5 days as well as dose of Fluconazole 150mg x 1 for vaginal candidiasis on 10/28 --> switched to Cefepime as above which is now been discontinued No symptoms reported Of note, renal US with b/l nephrolithiasis but no hydro (obtained due to back pain s/p fall and hx calcium oxalate on prior UA). No CVA tenderness (5) Left wrist pain: Appreciate orthopedic consult. No wrist fracture. -Continue wrist splint 2 weeks then can discard -Oxycodone 5-10mg Q4H for pain, elevate limb as much as possible -Acetaminophen 1g TID RUTH -- changed to prn given above changes as she frequently reaches max and will help to see if any fevers off of this (no further fevers) (6) Metastatic breast cancer: Noted. [facility] to receive her final cycle of chemotherapy starting month after completes rehab she is to call their office closer to d/c from rehab - then to have re-imaging (7) Weakness of both legs: Patient with no focal weakness on my physical exam. She reports muscular weakness and giving out. Do not think she needs imaging of spinal cord - h/o metastatic cancer is concerning. CT head negative but has not had MRI or spinal cord imaging Checked ESR for possible PMR? -- elevated but likely due to age CK 68 B12 817 -PT/OT evaluation as above -Fall precautions (8) Diabetes mellitus type 2, uncontrolled: Chronic -Lantus 15 units BID - hypoglycemia, will reduce this to 5-15 units BID based on glucose levels -ISS -Goal blood sugar 100 - 140 -Continue Lisinopril Hold home Trulicity (9) Atrial fibrillation: Chronic. Patient had both Diltiazem and Amiodarone on home list - has not filled them recently. Per review of notes, patient is on Diltiazem Continue Diltiazem Xarelto as above (10) Normocytic anemia: Hgb 9.3, at baseline. Repeat hgb 9.6 and is on continued fluids (11) Depression: Chronic -Continue Buspirone -Continue Duloxetine (12) Hypercholesterolemia: Chronic -Continue Atorvastatin Checking CK due to reported weakness -- wnl (13) Hypothyroidism: Chronic. TSH WNL 10/25 -Continue Synthroid (14) Carpal tunnel syndrome of right wrist: Recommend following up as outpatient Dispo:awaiting bed at SNF (peer-peer completed with approval for SNF for minimum 7 days) Medically stable when bed available Admission and Anticipated Discharge Date Admission Date: October 25, 2020 Supervising Physician Co-Signing Physician Notes PA Supervision Note: I did not personally see or examine the patient today, but I verified all edwards points of AZEEM Rene's assessment and plan with the following exceptions/additions: Discontinue IV fluids tonight Subjective Patient evaluated this morning. Painful but controlled with ordered medications. Less pain to her knee today. Discussed insurance approval for SNF but awaiting bed currently. She would like to stay overnight but discussed if bed available, rehab sooner would be best. Will continue to monitor as awaiting bed. No fever, chills, chest pain shortness or breath, abdominal pain, nausea, vomiting or dysuria reported. Review of Systems Review of Systems: All systems reviewed & are unremarkable except as noted in HPI & below Physical Exam Constitutional: well developed and cooperative; no acute distress and + uncomfortable (reporting pain all over, worse to L knee) no hair Eyes: + anicteric sclerae and PERRL ENMT: slightly dry mm Neck: normal visual inspection and trachea midline Respiratory: normal respiratory effort, lungs clear to auscultation Cardiovascular: Rate/Rhythm: regular rate and regular rhythm Heart Sounds: + murmur Vessels: no JVD Extremities: normal capillary refill and + pedal edema (Trace b/l ankles); no calf tenderness Chest (Breasts): Additional Comments: R -A port, no erythema, c/d/i Gastrointestinal (Abdomen): normal bowel sounds, soft, nontender, no hepatosplenomegaly Musculoskeletal: brace to L ankle L knee with edema/effusion to medial aspect. tender to palpation, minimal warmth --> NVI, pulses palpable bilaterally Neck: tenderness to R paraspinal muscles and increase pain with rotation but not flexion/extension Split to L wrist Hematoma to L forehead, healing ecchymosis to L back Skin: Trauma: + hematoma (left frontal scalp, improving) Neurologic: moves all extremities and awake; not confused Psychiatric: A+Ox3, euthymic affect (happy about news about SNF) Results & Data Results & Data ([facility]) Vital Signs (Past 12 Hours) Vital Signs Temp Pulse Resp BP Pulse Ox 11/02/20 06:48 36.4 C L 65 16 125/72 96 11/01/20 22:27 36.5 C 87 18 143/73 H 93 Laboratory Results 11/02/20 11/02/20 11/01/20 Range/Units 05:42 05:42 20:43 WBC 6.06 (4.8-10.8) K/uL RBC 3.28 L (4.2-5.4) M/uL Hgb 9.6 L (12.0-16.0) g/dL Hct 30.1 L (37-47) % MCV 91.8 (80-100) fL MCH 29.3 (25-34) pg MCHC 31.9 L (32-36) g/dL RDW Std Deviation 72.3 H (36.4-46.3) fL RDW Coeff of Thompson 21.7 H (11.5-14.5) % Plt Count 225 (130-400) K/uL MPV 10.2 (7.4-10.4) fL Sodium 139 (136-145) mmol/L Potassium 4.4 (3.5-5.1) mmol/L Chloride 106 (98-107) mmol/L Carbon Dioxide 28 (21-32) mmol/L Anion Gap 5.0 (3-11) BUN 18 (7-18) mg/dl Creatinine 0.53 L (0.6-1.2) mg/dl Est Cr Clr Drug Dosing 99.4 ml/min Est GFR ( Amer) 109.9 ml/min Est GFR (Non-Af Amer) 94.9 ml/min BUN/Creatinine Ratio 34.4 H (10-20) Glucose 108 H (70-99) mg/dl POC Glucose 183 H (70-99) mg/dl Calcium 8.7 (8.5-10.1) mg/dl 11/01/20 11/01/20 Range/Units 17:10 11:45 WBC (4.8-10.8) K/uL RBC (4.2-5.4) M/uL Hgb (12.0-16.0) g/dL Hct (37-47) % MCV (80-100) fL MCH (25-34) pg MCHC (32-36) g/dL RDW Std Deviation (36.4-46.3) fL RDW Coeff of Thompson (11.5-14.5) % Plt Count (130-400) K/uL MPV (7.4-10.4) fL Sodium (136-145) mmol/L Potassium (3.5-5.1) mmol/L Chloride (98-107) mmol/L Carbon Dioxide (21-32) mmol/L Anion Gap (3-11) BUN (7-18) mg/dl Creatinine (0.6-1.2) mg/dl Est Cr Clr Drug Dosing ml/min Est GFR ( Amer) ml/min Est GFR (Non-Af Amer) ml/min BUN/Creatinine Ratio (10-20) Glucose (70-99) mg/dl POC Glucose 125 H 259 H (70-99) mg/dl Calcium (8.5-10.1) mg/dl PG Care Time/CCT Total # of Minutes Spent Total Time Spent with Patient: Total time spent is greater than 50% in coordination of care (as documented) at patient's floor/unit and/or counseling patient: Coding Level of Care Code 22864 Subseq Hosp Care Lvl 2 Diagnoses Recurrent falls R29.6 Fever R50.9 Acute head injury S09.90XA Encounter type: initial encounter UTI (urinary tract infection) N39.0 Hematuria presence: without hematuria Urinary tract infection type: site unspecified Left wrist pain M25.532 Metastatic breast cancer C50.919 Weakness of both legs R29.898 Diabetes mellitus type 2, uncontrolled E11.65 Glycemic state: with hyperglycemia Atrial fibrillation I48.91 Atrial fibrillation type: unspecified Normocytic anemia D64.9 Depression F32.9 Depression Type: unspecified Hypercholesterolemia E78.00 Hypothyroidism E03.9 Hypothyroidism type: unspecified Carpal tunnel syndrome of right wrist G56.01 (1) Acute head injury Encounter type: initial encounter Qualified Code(s): S09.90XA - Unspecified injury of head, initial encounter (2) UTI (urinary tract infection) Hematuria presence: without hematuria Urinary tract infection type: site unspecified Qualified Code(s): N39.0 - Urinary tract infection, site not specified (3) Atrial fibrillation Atrial fibrillation type: unspecified Qualified Code(s): I48.91 - Unspecified atrial fibrillation (4) Depression Depression Type: unspecified Qualified Code(s): F32.9 - Major depressive disorder, single episode, unspecified (5) Hypothyroidism Hypothyroidism type: unspecified Qualified Code(s): E03.9 - Hypothyroidism, unspecified (6) Diabetes mellitus type 2, uncontrolled Glycemic state: with hyperglycemia Qualified Code(s): E11.65 - Type 2 diabetes mellitus with hyperglycemia
[2020-11-02] MEDS: RIVAROXABAN 20 MG TAB PO SCH (09:15)
[2020-11-02] MEDS: PANTOprazole 40 MG TAB PO SCH (09:15)
[2020-11-02] MEDS: DULoxetine HCL 60 MG CAP PO SCH (09:16)
[2020-11-02] MEDS: dilTIAZem ER 120 MG CAPCR PO SCH (09:16)
[2020-11-02] MEDS: CHOLECALCIFEROL 1,000 UNITS 25 MCG TAB PO SCH (09:16)
[2020-11-02] MEDS: GABAPENTIN 600 MG TAB PO SCH ×2 (09:16→20:15)
[2020-11-02] MEDS: busPIRone 15 MG TAB PO SCH ×2 (09:17→20:15)
[2020-11-02] MEDS: DICLOFENAC SOD 1% GEL 100 GM TUBE EXT SCH ×4 (09:18→20:22)
[2020-11-02] MEDS: INSULIN GLARGINE SOLOSTAR 100 UNITS/ML 3 ML PEN SC SCH ×2 (09:19→21:28)
[2020-11-02] MEDS: LIDOCAINE 5% 1 PATCH TD SCH (09:19)
[2020-11-02] MEDS: INSULIN ASPART 100 UNITS/ML 3 ML PEN SC SCH ×4 (09:20→21:27)
--- NOTE | 2020-11-02 10:54 | Orthopedic Progress Note ---
Date of Service November 02, 2020 Assessment & Plan (1) Contusion of left knee: Patient was educated regarding today's findings. Conservative care measures were discussed. Continue with ice to the knee as needed for mild discomfort. Radiographic imaging previously obtained shows no evidence of fracture. Her implant looks good. She currently denies any discomfort. Given her frequent falls, she would benefit from physical therapy intervention for strengthening and balance/coordination. Follow-up in the [place] [facility] [place] Freitas at [facility] as needed. Call with any other concerns. I, Dr. Freitas, saw and examined the patient and agree with the above findings and plan of care discussed with my PA. Admission and Anticipated Discharge Date Admission Date: October 25, 2020 Subjective Patient is seen in her room this morning. She currently states she has no knee pain. She states there was an x-ray performed, and her knee now feels better. No other complaints. She is hoping to go to [facility] for therapy. She states she cannot go home. Physical Exam Physical Exam: General: Well-developed, elderly white female, in no acute distress. Sitting in a chair. Alert and oriented. Visibly frustrated with her insurance company. Skin: Warm and dry with fair turgor. No rashes. Ecchymosis present left forehead and face, as well as some very mild ecchymosis at the medial left knee. Musculoskeletal: Patient has no discomfort with palpation over her knee today. No pain medially. Stable collateral ligament. She has intact active flexion extension at the knee without discomfort. No defect in the patellar tendon or quadriceps tendon. Neurologic: Gross sensation is intact across left leg by soft touch. Peripheral pulses are 1+. Results & Data ([facility]) Vital Signs (Past 12 Hours) Vital Signs Temp Pulse Resp BP Pulse Ox 11/02/20 06:48 36.4 C L 65 16 125/72 96
[2020-11-02] MEDS ORDERED: ERGOCALCIFEROL 50,000 UNITS 1250 MCG CAP PO SCH (11:30)
[2020-11-02] MEDS: ATORVASTATIN 40 MG TAB PO SCH (20:15)
[2020-11-02] MEDS: ZOLPIDEM TARTRATE 5 MG TAB PO PRN (22:43)
[2020-11-03] MEDS: HEPARIN 100 UNIT/ML 5ML FLUSH FLUSH PRN (03:11)
[2020-11-03] MEDS: LEVOTHYROXINE SODIUM 25 MCG TABLET PO SCH (05:52)
[2020-11-03 06:29] LABS: Hematocrit (blood only) 30.3 % (37-47); Hemoglobin 9.4 g/dL (12.0-16.0); Mean Corpuscular Hemoglobin 29.2 pg (25-34); Mean Corpuscular Volume 94.1 fL (80-100); Mean Platelet Volume 10.6 fL (7.4-10.4); Platelet Count 245 K/uL (130-400); RDW Coefficient of Variation 21.7 % (11.5-14.5); RDW Standard Deviation 74.7 fL (36.4-46.3); Red Blood Count 3.22 M/uL (4.2-5.4); White Blood Count 5.87 K/uL (4.8-10.8)
[2020-11-03 06:57] LABS: BUN Creatinine Ratio 35.3 (10-20); Calcium 8.8 mg/dl (8.5-10.1); Est GFR (Non-African American) 100.1 ml/min
[2020-11-03] MEDS: PANTOprazole 40 MG TAB PO SCH (08:27)
[2020-11-03] MEDS: dilTIAZem ER 120 MG CAPCR PO SCH (08:27)
[2020-11-03] MEDS: RIVAROXABAN 20 MG TAB PO SCH (08:27)
[2020-11-03] MEDS: DULoxetine HCL 60 MG CAP PO SCH (08:28)
[2020-11-03] MEDS: busPIRone 15 MG TAB PO SCH (08:29)
[2020-11-03] MEDS: GABAPENTIN 600 MG TAB PO SCH (08:29)
[2020-11-03] MEDS: oxyCODONE HCL IR 5 MG TAB (IMMEDIATE RELEASE) PO PRN ×2 (08:30→13:18)
[2020-11-03] MEDS: LIDOCAINE 5% 1 PATCH TD SCH ×2 (08:32)
[2020-11-03] MEDS: INSULIN GLARGINE SOLOSTAR 100 UNITS/ML 3 ML PEN SC SCH (08:32)
[2020-11-03] MEDS: DICLOFENAC SOD 1% GEL 100 GM TUBE EXT SCH (08:32)
[2020-11-03] MEDS: INSULIN ASPART 100 UNITS/ML 3 ML PEN SC SCH ×2 (08:34→13:15)
--- NOTE | 2020-11-03 08:34 | Discharge Summary ---
Date of Service November 03, 2020 Admission HPI Per Admitting Provider 70yo female with infiltrating DCIS of left breast, metastatic lung carcinoma on chemo presenting after a fall at home. Patient states that she falls frequently - almost every day. She states that since being on the chemotherapy she has a lot of muscular weakness and her legs give out frequently causing her to fall. She ambulates with a walker at all times. She is frequently unable to get up on her own and her family is unable to get her up. She calls a neighbor sometiimes to help her off the floor. Today patient was getting up from a chair and her legs gave out. She fell forward and struck her left frontal bone off a wooden floor. She nearly lost consciousness and was unable to get up after the fall. She also braced herself with her left hand and she has some discomfort there as well. Patient starts her final cycle of Chemotherpy next Friday for 3 week duration. No additional complaints at this time. Patient denies chest pain, palpitations, dizziness, numbness or focal weakness preceding or following her falls. ER Course: Tylenol Admission Exam Per Admitting Provider General: patient resting comfortably, NAD, non-toxic in appearance, AA&O x 4 Skin: warm, dry, intact, large bruise on left frontal bone HEENT: Head/facial trauma following fall, bruising to left frontal bone, facial bones stable, PERRL, EOMI, anicteric sclera, conjunctiva without injection, external ear normal to inspection and nontender, nares patent, moist mucus membranes, dentition intact, no oropharyngeal lesions, neck supple, trachea midline, no LAD, no thyromegaly, no JVD Heart: +S1/S2, regular, 3/6 STEF across precordium Lungs: equal air entry bilaterally, no rales/rhonchi/wheezes Abd: +BS, soft, NT/ND, no masses/organomegaly/ascites Ext: warm, 2+ pulses in UE/LE bilaterally, no clubbing/cyanosis or edema, left wrist in brace Neuro: nonfocal, patient AA&O x 4, speech intact, no facial droop, moving all extremities on command with equal strength 5/5 Principal Diagnosis Frequent Falls, UTI, Orthostatic Hypotension, Acute Closed Head Injury with Hematoma Discharge Exam Constitutional well developed, + ill appearing (chronically ill appearing), cooperative and comfortable; no acute distress + hematoma (left frontal scalp, improving) Eyes + anicteric sclerae and PERRL ENMT Ears: no hearing impairment Neck normal visual inspection and trachea midline Respiratory normal respiratory effort; no labored breathing Auscultation: + diminished lung sounds (bases); no wheezes Cardiovascular Rate/Rhythm: regular rate and regular rhythm Heart Sounds: + murmur Vessels: no JVD Extremities: normal capillary refill and + pedal edema (Trace b/l ankles); no calf tenderness Chest (Breasts) Additional Comments: Right sided a-port present Gastrointestinal (Abdomen) normal bowel sounds, soft, nontender, no hepatosplenomegaly Musculoskeletal brace to L ankle L knee with edema/effusion to medial aspect. minimally tender to palpation --> NVI, pulses palpable bilaterally Neck: tenderness to R paraspinal muscles and increase pain with rotation but not flexion/extension, decreased compared to yesterday with lidocaine patch present Split to L wrist Hematoma to L forehead, healing ecchymosis to L back 3/5 strength hips, 4/5 knee ankles bilaterally Skin Trauma: + hematoma (left frontal scalp, improving) Neurologic moves all extremities and awake; not confused Psychiatric A+Ox3, euthymic affect Genitourinary no fuentes Discharge Data Allergies Allergy/AdvReac Type Severity Reaction Status Date / Time metformin AdvReac Severe Verified 10/25/20 19:09 Consultations 10/25/20 17:41 ED Decision to Admit Stat 10/26/20 14:59 Consult Orthopedic Surgery Routine 11/01/20 18:39 Consult Orthopedic Surgery Routine Ordered Studies 10/25/20 15:57 CT cervical spine wo con Stat CT head/brain wo con Stat 10/31/20 14:30 US renal/blad retro comp Routine Hospital Course (1) Recurrent falls: Suspect from vertigo from description as well as general deconditioning Recommend outpatient vestibular therapy as outpatient Mildly orthostatic but suspect this is not her ongoing dizziness, possibly related to chemo Less likely secondary to gabapentin, recently decreased to 300mg PO BID by Dr Lovett See imaging as above -- no fractures noted Was evaluated by orthopedics x 2 --> recs for rehab, split to L wrist x 2 weeks and sleeve to L knee which already has brace on from prior fall Pain control significant issues given repeat falls. She had additional fall secondary to legs giving out while inpatient without LOC/trauma. Orthostatic VS significantly positive IVF provided with improvement of orthostatic VS PT/OT recs for rehab. Peer-peer completed and patient sent to [facility] for SNF Pain control --> increased oxycodone to 1-2 tablets prn -- continued as needed at discharge --> voltaren gel QID -- continued --> Lidocaine patch -- to neck and shoulder -- continued Vit D low -- ergocalciferol [id number] weekly for 4-6 weeks then resume her usual dose/follow up with PCP (2) Fever: Temp 38.1C recorded in system previously but possibly documented on wrong patient. Already had completed abx for Ecoli/klebsiella UTI but was placed on Cefepime and discontinued as repeat CXR/UA/BCx without evidence of infection (3) Acute head injury: s/p fall with trauma to head - CT head with scalp hematoma, CT cervical spine with no acute process. No focal neurological deficits Patient is on Rivaroxaban anticoagulation for history of atrial fibrillation -- held and resumed on 10/29 (4) UTI (urinary tract infection): UTI - patient is relatively immunocompromised given history of malignancy on chemotherapy. Dysuria. Urine cx with Ecoli/Klebsiella, pansensitive Completed course of Ceftriaxone x 5 days as well as dose of Fluconazole 150mg x 1 for vaginal candidiasis on 10/28 --> switched to Cefepime as above which was disconitnued Of note, renal US with b/l nephrolithiasis but no hydro (obtained due to back pain s/p fall and hx calcium oxalate on prior UA). No CVA tenderness (5) Left wrist pain: Appreciate orthopedic consult. No wrist fracture. -Continue wrist splint 2 weeks then can discard -Tylenol, Oxycodone 5-10mg Q4H for pain, elevate limb as much as possible (6) Metastatic breast cancer: Noted. [facility] to receive her final cycle of chemotherapy starting month after completes rehab she is to call their office closer to d/c from rehab - then to have re-imaging (7) Weakness of both legs: Patient with no focal weakness on my physical exam. She reports muscular weakness and giving out. Do not think she needs imaging of spinal cord - h/o metastatic cancer is concerning. CT head negative but has not had MRI or spinal cord imaging Checked ESR for possible PMR? -- elevated but likely due to age and cancer CK 68 B12 817 -PT/OT evaluation as above -Fall precautions (8) Diabetes mellitus type 2, uncontrolled: Chronic ISS while inpatient Home meds resumed at discharge (9) Atrial fibrillation: Chronic. Patient had both Diltiazem and Amiodarone on home list - has not filled them recently and this was not continued and patient remained in NSR on diltiazem alone Discharged on her diltiazem and Xarelto (10) Normocytic anemia: Hgb at baseline (11) Depression: Chronic -- continued buspar, duloxetine (12) Hypercholesterolemia: Continued Atorvastatin. CK wnl -- checked d/t weakness (13) Hypothyroidism: Chronic. TSH WNL 10/25 Continue Synthroid 37.5mcg (14) Carpal tunnel syndrome of right wrist: Recommend following up as outpatient (15) Vitamin D deficiency: On 1000IU daily Vit D checked while inpatient and sent on ergocalciferol for 6 weeks and continue usual dose after recheck with PCP (16) DVT prophylaxis: Xarelto Discharged to [facility] for SNF Total Time Total Time Spent Total Time Spent (In Minutes): 70 Discharge Plan Discharge Items Patient Disposition: Transfer Custodial Fac Reason For Visit: FREQUENT FALLS Discharge Diagnosis: Frequent Falls, Orthostatic Hypotension, Acute Closed Head Injury/Hematoma Goals: You have been hospitalized for an acute medical problem. During your stay at [facility], we have made an effort to correct the problem that brought you to the hospital while keeping you as comfortable as possible. Medications were used to bring your condition under control and your discharge instructions will include directions for any medications you should take after leaving the hospital. Please make sure you see your Primary Care Provider as part of your follow up plan. Activity: As commented below Activity Comment: increase with therapy Non-emergency contact: Primary Care Provider Call non-emergency contact if: you have any medication questions, your symptoms worsen, your pain is not controlled and you have a fever Follow-up/Referrals: Jarod Lovett MD [Primary Care Provider] - Yamileth Cordero PA-C [Nurse Practitioner] - (2 weeks) Diet: Carb Consistent or DM2 and Heart Healthy Addtl Attending Provider Instructions: You have been hospitalized for frequent falls. You suffered a hematoma to scalp but CT was negative for stroke or acute process. This may take some time to go down. Imaging did not show any fractures, thankfully, however you were found to have orthostatic hypotension and were given IV fluids for dehydration. If you experience similar symptoms at rehab, you should have these orthostatic vital signs repeated. You should take positional changes slowly to avoid falling. You can also consider vestibular therapy as an outpatient and can discuss with your primary care. You were previously on amiodarone to keep your heart in a regular rhythm but have not been on this medication and have been rate controlled and in normal rhythm and should continue your Xarelto and Diltiazem as previoulsy ordered and you have been getting. You can continue split to your left wrist for comfort for another week and then you can disregard this. Your Vitamin D was checked and still low despite supplementation and you should take 50,000 IU weekly for the next 6 weeks and then resume your usual dosing and should have repeat labs as an outpatient. You have been set up for rehab at discharge to get stronger, and should call cancer center closer to discharge from rehab to get your chemotherapy rescheduled. For pain, you are to continue tylenol for minor aches/pains and can use oxycodone as needed for breakthrough pain. Continue voltaren gel topical to affected areas up to 4 times daily. Lidocaine patches to neck and shoulder as needed. You can also use ice and elevation for your knee for comfort as well as sleeve for stability per orthopedics discussion. Please follow up with oncology, primary care provider in the next 1-2 weeks to monitor your progress. Please return to ER with any fevers, uncontrolled, pain, chest pain shortness of breath or for any other symptoms that are concerning for you. Take care! Pending Studies at Discharge: No Stand-Alone Forms: My [facility] Skilled Items Patient informed of condition?: Yes DNR: No Discharge Level of Care: Skilled Communicable Disease: No Discharge Prognosis: Stable Lines: None Urinary Catheter: No Medications and DC Order Prescriptions: New acetaminophen 325 mg Tablet 650 mg PO Q4H PRN (Reason: fever or pain) Qty: 30 RF: 0 oxycodone 5 mg Tablet 5 - 10 mg PO Q4H PRN (Reason: pain) Qty: 10 RF: 0 lidocaine 5 % Adhesive Patch,Medicated 1 patch transdermal QAM Qty: 1 RF: 0 lidocaine 5 % Adhesive Patch,Medicated 1 patch transdermal QAM Qty: 1 RF: 0 ergocalciferol (vitamin D2) 1,250 mcg (50,000 unit) Capsule 50,000 unit PO Th@0900 Qty: 6 RF: 0 diclofenac sodium [Voltaren Arthritis Pain] 1 % gel 2 g topical QID Qty: 2 RF: 0 Continued cyanocobalamin (vitamin B-12) 1,000 mcg/mL kit 1,000 mcg IM MONTHLY RF: 0 multivitamin tablet 1 tab PO QAM RF: 0 atorvastatin 40 mg tablet 40 mg PO HS Qty: 90 RF: 3 Lantus Solostar U-100 Insulin 100 unit/mL (3 mL) insulin pen 31 unit SQ HS Qty: 15 RF: 5 Trulicity 0.75 mg/0.5 mL pen injector 0.75 mg subcut WK Qty: 2 RF: 5 pantoprazole 40 mg tablet,delayed release (DR/EC) 40 mg PO QAM Qty: 90 RF: 3 lisinopril 10 mg tablet 10 mg PO QAM Qty: 90 RF: 3 tramadol [Ultram] 50 mg tablet 50 mg PO Q12H PRN (Reason: pain) Qty: 60 RF: 0 acetaminophen [Tylenol Extra Strength] 500 mg tablet 1,000 mg PO TID PRN (Reason: Pain) Qty: 90 RF: 1 levothyroxine 25 mcg tablet 37.5 mcg PO QAM Qty: 135 RF: 3 gabapentin 600 mg tablet 300 mg PO BID Qty: 60 RF: 2 glipizide 10 mg tablet 5 mg PO BID RF: 0 Hold Instructions: per office meclizine 25 mg tablet 25 mg PO Q6H PRN (Reason: dizziness) Qty: 30 RF: 0 Xarelto 20 mg tablet 20 mg PO QAM RF: 0 cholecalciferol (vitamin D3) [Vitamin D3] 25 mcg (1,000 unit) Capsule 1,000 unit PO QAM RF: 0 diltiazem HCl [Taztia XT] 120 mg Capsule,Extended Release 24 Hr 120 mg PO QAM Qty: 90 RF: 3 calcium 600 mg Capsule 1 mg PO DAILY RF: 0 duloxetine 60 mg capsule,delayed release(DR/EC) 60 mg PO QAM RF: 0 buspirone 15 mg Tablet 15 mg PO BID RF: 0 Discontinued amiodarone 200 mg tablet 200 mg PO QAM RF: 0 Discharge Orders: Discharge Order (Routine); Ordered 11/03/20 Ordered By: Yamileth Gallagher/Other Patient Handouts: High Blood Sugar (Hyperglycemia), Managing Type 2 Diabetes, A1C Admission Data Admit Date/Time: 10/25/20 20:29 Attending Provider: Makenna Rodriguez Admit Provider: Yolette Huang Primary Care Provider: Jarod Lovett Other Providers: Kevin Cardenas ; [employer] ; [facility] ; Nathan Huang ; Serge Freitas Other Interventions: Discharge Summary Assessment (RN) Last Done: 11/03/20 12:56 Supervising Physician Co-Signing Physician Notes PA Supervision Note: I personally saw and examined the patient. I verified all edwards points and agree with AZEEM Rene with the following exceptions and/or additions: S-Still with some mild headache at site of left forehead hematoma. Otherwise with left wrist pain. Ready for discharge to rehab O- Vitals reviewed Gen: [AAOx3, NAD] HEENT: [anicteric sclerae, EOMI] CV: [RRR no mgr nl S1S2] Pulm: [CTAB no wcr] Abd: [+BS soft NT ND no masses or hernias] Ext: [no edema,left wrist and ankle in braces] Skin: [no rashes, warm/dry] Neuro: [full strength throughout] A/P-70 yo female w/ history as above, here with multiple falls, onjuries, needs rehab placement. UTI treated. Stable for dc Coding Level of Care Code D/C Day Management >30 mins Diagnoses Recurrent falls R29.6 Fever R50.9 Acute head injury S09.90XA Encounter type: initial encounter UTI (urinary tract infection) N39.0 Hematuria presence: without hematuria Urinary tract infection type: site unspecified Left wrist pain M25.532 Metastatic breast cancer C50.919 Weakness of both legs R29.898 Diabetes mellitus type 2, uncontrolled E11.65 Glycemic state: with hyperglycemia Atrial fibrillation I48.91 Atrial fibrillation type: unspecified Normocytic anemia D64.9 Depression F32.9 Depression Type: unspecified Hypercholesterolemia E78.00 Hypothyroidism E03.9 Hypothyroidism type: unspecified Carpal tunnel syndrome of right wrist G56.01 Vitamin D deficiency E55.9 DVT prophylaxis Z29.9
[2020-11-03] MEDS ORDERED: CHOLECALCIFEROL 1,000 UNITS 25 MCG TAB PO SCH (09:00)
[2020-11-03] MEDS ORDERED: busPIRone 7.5 MG TAB PO ONE (10:59)
== END 2020-11-03 14:00 | DRG 149 ==
LOC: ED 15:06 → SUATTDRO 20:29 → 3W 20:29

== ENCOUNTER 2020-12-02 21:31 | Observation (INO) ==
[2020-12-02] MEDS ORDERED: ONDANSETRON INJ 2 MG/ML 2 ML VIAL IV STA (22:16)
[2020-12-02] MEDS ORDERED: MoRPHine SULFATE 4 MG/ML 1 ML CARP\\VIAL IV STA (22:16)
--- NOTE | 2020-12-02 22:25 | Emergency Department Note ---
Impression & Plan Chest wall pain, Anemia, Elevated glucose ED Provider Note NAME: MUNIRA EDWARDS AGE: 70 SEX: F : 1950 ARRIVES VIA: Walk-In INFORMANT: Patient ED PROVIDER(S): Tobin Castro DO CHIEF COMPLAINT: Left chest wall pain HPI: Patient is a 70-year-old female who presents the ER for left chest wall pain. She fell this past Friday onto the couch. She has some mild pain after that but on Friday she started having severe pain on the left side of her chest. It is worsened with twisting, turning, bending, and movement and now especially breathing. She moved in the car and reached change the radio and now is unable to move up and down due to severe pain. Pain is a 10 out of 10. Worse with movement. Improves with rest. And sharp stabbing. It takes her breath away. She does have metastatic breast cancer and is on rivaroxaban. No dysuria urgency or frequency. She does not believe that she hit her head. She has no neck pain. No belly pain. ROS: See above HPI for pertinent positives & negatives. A total of 10 systems r eviewed and were otherwise negative. PAST MEDICAL HISTORY:See Below PAST SURGICAL HISTORY:See Below FAMILY HISTORY:See Below SOCIAL HISTORY:See Below HOME MEDICATIONS:See Below ALLERGIES:See Below VITALS:See Below PHYSICAL EXAMINATION: GENERAL: Sitting up in bed, alert, well appearing, well nourished, no distress, non-toxic EYE EXAM: normal conjunctiva. PERRL and EOM's grossly intact. OROPHARYNX: no exudate, no erythema, lips, buccal mucosa, and tongue normal and mucous membranes are moist NECK: supple, no nuchal rigidity, no adenopathy, non-tender CHEST: Tenderness over left chest wall LUNGS: Clear to auscultation. Normal chest wall mechanics HEART: no murmurs, S1 normal and S2 normal ABDOMEN: abdomen soft, non-tender, normo-active bowel sounds, no masses, no rebound or guarding. BACK: Back is symmetrical on inspection and there is no deformity, no midline tenderness, no CVA tenderness. UPPER EXTREMITIES: upper extremities are grossly normal. LOWER EXTREMITIES: No pitting edema. NEURO EXAM: Normal sensorium, cranial nerves II-XII grossly intact, normal speech, no gross weakness of arms, no gross weakness of legs. MEDICAL DECISION MAKING: Patient is a 70-year-old female who presents ER following mechanical fall this past Friday. Friday she started having severe pain on that left side where she fell and hit the couch. Has significantly worsened today. And can move it makes the pain significantly worse. IV was established blood was obtained. Labs show no significant leukocytosis. Mild anemia 10.4 consistent with previous. BMP was unremarkable. LFTs bilirubin and troponin was negative. Lipase was unremarkable. Troponin was negative with symptoms have been present for greater than 8 hours. Not indicative of ACS specially in combination with a history which consistent with musculoskeletal. Patient was given multiple doses of narcotics. She cannot sit up secondary to pain. CT head cervical spine and chest show no acute fractures and a small effusion. Patient was updated bedside. She is unable to sit up and move around secondary to pain. She was discussed with hospitalist for further observation. Triage Nursing notes reviewed. Limited review of prior medical records performed Vital Signs: reviewed and remarkable for HTN Differential diagnosis: Differential diagnoses includes but is not limited to acute coronary syndrome, myocardial infarction, pericarditis, pulmonary embolus, aortic dissection, pneumonia, pneumothorax, musculoskeletal, shingles, esophageal. ER treatment provided: See below Diagnostics interpreted by me: ECG: Atrial paced poor baseline rate of 60 Normal axis No PVCs QTC 452 Cardiac Monitoring: An order was placed for continuous cardiac monitoring. The monitor shows a rate of 60 with atrial paced rhythm. Laboratory studies: As stated above and show below. Imaging studies: CT HEAD: Comparison: 03/24/2020. No ICH, mass effect or edema. No evidence of acute cortical stroke. Periventricular small vessel ischemic change. Mild generalized brain atrophy. Visualized sinuses and mastoid air cells are clear. Focal thickening/swelling versus small hematoma involving the scalp over the left lateral frontal bone at the mid skull level. CT C SPINE: Comparison: 03/24/2020. Diffuse osteopenia along with degenerative disease. Mild anterolisthesis of C5 on C6, stable in the interval. Otherwise normal alignment. No acute fracture. CT CHEST With Contrast: Comparison: None. There is a left-sided pacemaker in place. Normal cardiac size. Mild left effusion. Minimal left posterior dependent atelectasis. Mild left upper lobe atelectasis. Tiny nodule within the right lower lobe measuring 3.4 mm. Depending on risk factors, recommend CT evaluation in 6-12 months to document stability. Upper abdomen reveals a small low-attenuation structure within the liver incompletely included in the [id number] and therefore is suboptimally characterized, measuring 1.4 cm. Status post cholecystectomy. If indicated, follow-up with CT chest may further characterized these findings or comparison to prior films if made available. Consultation(s): Discussed with Brandon Swain for further evaluation Procedures: none Critical Care: None Past Med/Surg History Medical History Anxiety Aortic stenosis Atrial fibrillation Atrial flutter Bilateral hip bursitis Cervical spine disease Chronic anemia Chronic pain Degenerative disc disease Depression Diabetes mellitus, type 2 Gastroesophageal reflux disease Hx of cardiac pacemaker Hx of tachycardia-bradycardia syndrome Hypercholesterolemia Hypothyroidism Infiltrating ductal carcinoma of left breast Knee pain Liver mass Metastatic lung carcinoma Obstructive sleep apnea Peripheral neuropathy Surgical History H/O bilateral hip replacements History of section History of colonoscopy History of evacuation of hematoma (08/30/13) History of total knee arthroplasty Port-A-Cath in place (06/13/20) Status post appendectomy Status post arthroscopy of left shoulder Status post gastric bypass for obesity Status post laparoscopic cholecystectomy Status post lumbar spine surgery for decompression of spinal cord Status post panniculectomy Status post partial mastectomy of left breast Status post placement of cardiac pacemaker Status post repair of ventral hernia Status post total abdominal hysterectomy and bilateral salpingo-oophorectomy Status post total hip replacement, bilateral Family History Unknown Breast cancer Emphysema lung Mother Diabetes Heart disease Father Heart disease Other No family history of adverse response to anesthesia Denies family history of Ovarian cancer Prostate cancer Coronary heart disease Colorectal cancer Social History Smoking Status: Never smoker Tobacco Type: Cigarettes packs per day: 2; Second Hand Exposure: Yes; Hx Alcohol Use: No Hx Substance Use: No Preferred Language: Latvian Communication Ability: Effective Hearing Ability: Normal Country Manager Required: No Beliefs That Will Affect Care: None marital status: Current Living Situation: Spouse current occupational status: retired Feels Safe at Home: Yes Childhood Exposure to Second-Hand Smoke: Yes caffeine: Yes Dental Care, Regularly: No Physical Activity Frequency: 1-2 Times per Week Seatbelt Use: always Sunscreen Use: No Assistive Devices: Walker Allergies Allergies Allergy/AdvReac Type Severity Reaction Status Date / Time metformin AdvReac Severe Verified 11/29/20 15:36 Home Meds Home Medications Medication Instructions Recorded Confirmed cyanocobalamin (vitamin B-12) 1,000 mcg IM MONTHLY ea 02/04/18 11/29/20 1,000 mcg/mL injection kit multivitamin 1 tab PO QAM 02/04/18 11/29/20 cholecalciferol (vitamin D3) 25 1,000 unit PO QAM 07/29/19 11/29/20 mcg (1,000 unit) capsule (Vitamin D3) rivaroxaban 20 mg tablet (Xarelto) 20 mg PO QAM 08/14/20 11/29/20 calcium 600 mg capsule 1 mg PO DAILY 09/27/20 11/29/20 duloxetine 60 mg capsule,delayed 60 mg PO QAM 10/25/20 11/29/20 release glipizide 10 mg tablet 5 mg PO BID tab 10/25/20 11/29/20 buspirone 15 mg tablet 15 mg PO BID 10/30/20 11/29/20 Previous Rx's Medication Instructions Recorded atorvastatin 40 mg tablet 40 mg PO HS #90 tab 11/29/19 meclizine 25 mg tablet 25 mg PO Q6H PRN #30 tab 01/12/20 diltiazem HCl 120 mg capsule,24 120 mg PO QAM #90 cap 04/06/20 hr,extended release (Taztia XT) insulin glargine 100 unit/mL (3 31 unit SQ HS #15 ml 06/08/20 mL) subcutaneous pen (Lantus Solostar U-100 Insulin) dulaglutide 0.75 mg/0.5 mL 0.75 mg SUBCUT WK #2 ml 06/20/20 subcutaneous pen injector (Trulicity) pantoprazole 40 mg tablet,delayed 40 mg PO QAM #90 tab 09/07/20 release lisinopril 10 mg tablet 10 mg PO QAM #90 tab 10/09/20 acetaminophen 500 mg tablet 1,000 mg PO TID PRN #90 tab 10/17/20 (Tylenol Extra Strength) levothyroxine 25 mcg tablet 37.5 mcg PO QAM #135 tab 10/24/20 gabapentin 600 mg tablet 300 mg PO BID #60 tab 10/25/20 acetaminophen 325 mg tablet 650 mg PO Q4H PRN #30 tab 11/03/20 diclofenac sodium 1 % topical gel 2 g TOPICAL QID #2 g 11/03/20 (Voltaren Arthritis Pain) ergocalciferol (vitamin D2) 1,250 50,000 unit PO Th@0900 #6 cap 11/03/20 mcg (50,000 unit) capsule lidocaine 5 % topical patch 1 patch TRANSDERMAL QAM #1 ea 11/03/20 lidocaine 5 % topical patch 1 patch TRANSDERMAL QAM #1 ea 11/03/20 nitrofurantoin macrocrystal 100 mg 100 mg PO BID #14 cap 11/29/20 capsule tramadol 50 mg tablet (Ultram) 50 mg PO Q12H PRN #60 tab 11/29/20 Results & Data (ED) Vital Signs Vital Signs - 24 hr 12/02/20 21:36 12/02/20 22:03 12/02/20 22:05 Temperature 36.1 C L Temperature Source Temporal Artery Scan Pulse Rate 65 60 Pulse Rate from SpO2 Sensor 60 Respiratory Rate 20 18 Respiratory Effort / Characteristics Non-Labored Spontaneous Non-Labored Splinting (from pain) Respiratory Depth Normal Normal Respiratory Pattern Regular Regular Blood Pressure 149/83 H 150/71 H Blood Pressure Mean 105 97 Pulse Oximetry 100 100 98 Oxygen Delivery Method Room Air Room Air Oxygen Flow Rate 0 Sepsis Recent Fever Within 48 Hours No Sepsis New/Unexplained Change in Mental Status No Sepsis Action Taken by Nursing No Action Required 12/02/20 22:30 12/02/20 23:10 Temperature Temperature Source Pulse Rate 60 60 Pulse Rate from SpO2 Sensor 60 60 Respiratory Rate 17 20 Respiratory Effort / Characteristics Respiratory Depth Respiratory Pattern Blood Pressure 180/75 H Blood Pressure Mean 110 Pulse Oximetry 96 99 Oxygen Delivery Method Oxygen Flow Rate Sepsis Recent Fever Within 48 Hours Sepsis New/Unexplained Change in Mental Status Sepsis Action Taken by Nursing Laboratory Data Result diagrams: 12/02/20 22:47 12/02/20 22:47 Lab Results 12/02/20 12/02/20 12/02/20 Range/Units 22:47 22:47 22:47 WBC 8.37 (4.8-10.8) K/uL RBC 3.50 L (4.2-5.4) M/uL Hgb 10.4 L (12.0-16.0) g/dL POC Hgb (12.0-16.0) g/dl Hct 32.2 L (37-47) % POC Hct (37-47) % MCV 92.0 (80-100) fL MCH 29.7 (25-34) pg MCHC 32.3 (32-36) g/dL RDW Std Deviation 60.1 H (36.4-46.3) fL RDW Coeff of Thompson 18.0 H (11.5-14.5) % Plt Count 220 (130-400) K/uL MPV 10.3 (7.4-10.4) fL Immature Gran % (Auto) 0.2 % Neut % (Auto) 72.2 % Lymph % (Auto) 15.7 % Sioux % (Auto) 10.8 % Eos % (Auto) 1.0 % Baso % (Auto) 0.1 % Neut # (Auto) 6.05 (1.4-6.5) K/uL Lymph # (Auto) 1.31 (1.2-3.4) K/uL Sioux # (Auto) 0.90 H (0.11-0.59) K/uL Eos # (Auto) 0.08 (0-0.5) K/uL Baso # (Auto) 0.01 (0-0.2) K/uL Immature Gran # (Auto) 0.02 (0.00-0.02) K/uL APTT 43.3 H (21.0-31.0) Seconds PTT Ratio 1.6 POC Sodium (135-144) mmol/L Sodium 136 (136-145) mmol/L POC Potassium (3.3-5.0) mmol/L Potassium 4.0 (3.5-5.1) mmol/L POC Chloride (101-112) mmol/L Chloride 103 (98-107) mmol/L Carbon Dioxide 31 (21-32) mmol/L POC Total CO2 (24-31) mmol/L Anion Gap 2.0 L (3-11) POC Anion Gap (16-25) mmol/L POC BUN (7-18) mg/dl BUN 11 (7-18) mg/dl Creatinine 0.59 L (0.6-1.2) mg/dl POC Creatinine (0.6-1.3) mg/dl Est Cr Clr Drug Dosing 90.1 ml/min Est GFR ( Amer) 106.1 ml/min Est GFR (Non-Af Amer) 91.6 ml/min BUN/Creatinine Ratio 18.4 (10-20) Glucose 194 H (70-99) mg/dl POC Glucose (other) (70-99) mg/dl Calcium 9.0 (8.5-10.1) mg/dl POC Ioniz Calcium Janice (1.12-1.32) mmol/l Total Bilirubin 0.5 (0.2-1) mg/dl AST 24 (15-37) U/L ALT 29 (12-78) U/L Alkaline Phosphatase 141 H (45-117) U/L Troponin I < 0.015 (0-0.045) ng/ml Total Protein 6.6 (6.4-8.2) gm/dl Albumin 3.2 L (3.4-5.0) gm/dl Globulin 3.4 (2.5-4.0) gm/dl Albumin/Globulin Ratio 0.9 (0.9-2) Lipase 68 L (73-393) U/L / Range/Units 23:06 WBC (4.8-10.8) K/uL RBC (4.2-5.4) M/uL Hgb (12.0-16.0) g/dL POC Hgb 10.5 L (12.0-16.0) g/dl Hct (37-47) % POC Hct 31 L (37-47) % MCV (80-100) fL MCH (25-34) pg MCHC (32-36) g/dL RDW Std Deviation (36.4-46.3) fL RDW Coeff of Thompson (11.5-14.5) % Plt Count (130-400) K/uL MPV (7.4-10.4) fL Immature Gran % (Auto) % Neut % (Auto) % Lymph % (Auto) % Sioux % (Auto) % Eos % (Auto) % Baso % (Auto) % Neut # (Auto) (1.4-6.5) K/uL Lymph # (Auto) (1.2-3.4) K/uL Sioux # (Auto) (0.11-0.59) K/uL Eos # (Auto) (0-0.5) K/uL Baso # (Auto) (0-0.2) K/uL Immature Gran # (Auto) (0.00-0.02) K/uL APTT (21.0-31.0) Seconds PTT Ratio POC Sodium 137 (135-144) mmol/L Sodium (136-145) mmol/L POC Potassium 4.0 (3.3-5.0) mmol/L Potassium (3.5-5.1) mmol/L POC Chloride 98 L (101-112) mmol/L Chloride (98-107) mmol/L Carbon Dioxide (21-32) mmol/L POC Total CO2 25 (24-31) mmol/L Anion Gap (3-11) POC Anion Gap 19.0 (16-25) mmol/L POC BUN 10 (7-18) mg/dl BUN (7-18) mg/dl Creatinine (0.6-1.2) mg/dl POC Creatinine 0.5 L (0.6-1.3) mg/dl Est Cr Clr Drug Dosing ml/min Est GFR ( Amer) ml/min Est GFR (Non-Af Amer) ml/min BUN/Creatinine Ratio (10-20) Glucose (70-99) mg/dl POC Glucose (other) 195 H (70-99) mg/dl Calcium (8.5-10.1) mg/dl POC Ioniz Calcium Janice 1.17 (1.12-1.32) mmol/l Total Bilirubin (0.2-1) mg/dl AST (15-37) U/L ALT (12-78) U/L Alkaline Phosphatase (45-117) U/L Troponin I (0-0.045) ng/ml Total Protein (6.4-8.2) gm/dl Albumin (3.4-5.0) gm/dl Globulin (2.5-4.0) gm/dl Albumin/Globulin Ratio (0.9-2) Lipase (73-393) U/L Administered Medications Discontinued Medications Ioversol (Optiray 320 100ml) 94 ml IV ONCE ONE Stop: 12/02/20 23:36 Last Admin: 12/02/20 23:35 Dose: 94 ml Documented by: [id number] Morphine Sulfate (Morphine Sulfate 4 Mg/Ml 1 Ml Carp\Vial) 4 mg IV NOW STA Stop: 12/02/20 22:17 Last Admin: 12/02/20 23:13 Dose: 4 mg Documented by: [id number] Ondansetron HCl (Ondansetron Inj 2 Mg/Ml 2 Ml Vial) 4 mg IV NOW STA Stop: 12/02/20 22:17 Last Admin: 12/02/20 23:13 Dose: 4 mg Documented by: [id number] Discharge Plan Visit Data Chief Complaint: Shortness of Breath/Dyspnea Stated Complaint: PAIN IN LEFT SIDE, TROUBLE BREATHING ED Provider: Tobin Castro Discharge Problem: Chest wall pain, Anemia, Elevated glucose Forms Stand Alone Forms: [facility] [place] Prescriptions Prescriptions: No Action cyanocobalamin (vitamin B-12) 1,000 mcg/mL kit 1,000 mcg IM MONTHLY RF: 0 multivitamin tablet 1 tab PO QAM RF: 0 atorvastatin 40 mg tablet 40 mg PO HS Qty: 90 RF: 3 Lantus Solostar U-100 Insulin 100 unit/mL (3 mL) insulin pen 31 unit SQ HS Qty: 15 RF: 5 Trulicity 0.75 mg/0.5 mL pen injector 0.75 mg subcut WK Qty: 2 RF: 5 pantoprazole 40 mg tablet,delayed release (DR/EC) 40 mg PO QAM Qty: 90 RF: 3 lisinopril 10 mg tablet 10 mg PO QAM Qty: 90 RF: 3 acetaminophen [Tylenol Extra Strength] 500 mg tablet 1,000 mg PO TID PRN (Reason: Pain) Qty: 90 RF: 1 levothyroxine 25 mcg tablet 37.5 mcg PO QAM Qty: 135 RF: 3 nitrofurantoin macrocrystal 100 mg capsule 100 mg PO BID Qty: 14 RF: 0 tramadol [Ultram] 50 mg tablet 50 mg PO Q12H PRN (Reason: pain) Qty: 60 RF: 0 gabapentin 600 mg tablet 300 mg PO BID Qty: 60 RF: 2 glipizide 10 mg tablet 5 mg PO BID RF: 0 Hold Instructions: per office meclizine 25 mg tablet 25 mg PO Q6H PRN (Reason: dizziness) Qty: 30 RF: 0 Xarelto 20 mg tablet 20 mg PO QAM RF: 0 cholecalciferol (vitamin D3) [Vitamin D3] 25 mcg (1,000 unit) Capsule 1,000 unit PO QAM RF: 0 diltiazem HCl [Taztia XT] 120 mg Capsule,Extended Release 24 Hr 120 mg PO QAM Qty: 90 RF: 3 calcium 600 mg Capsule 1 mg PO DAILY RF: 0 duloxetine 60 mg capsule,delayed release(DR/EC) 60 mg PO QAM RF: 0 buspirone 15 mg Tablet 15 mg PO BID RF: 0 acetaminophen 325 mg Tablet 650 mg PO Q4H PRN (Reason: fever or pain) Qty: 30 RF: 0 lidocaine 5 % Adhesive Patch,Medicated 1 patch transdermal QAM Qty: 1 RF: 0 lidocaine 5 % Adhesive Patch,Medicated 1 patch transdermal QAM Qty: 1 RF: 0 ergocalciferol (vitamin D2) 1,250 mcg (50,000 unit) Capsule 50,000 unit PO Th@0900 Qty: 6 RF: 0 diclofenac sodium [Voltaren Arthritis Pain] 1 % gel 2 g topical QID Qty: 2 RF: 0 Referrals Referrals: Jarod Lovett MD [Primary Care Provider] -
[2020-12-02 22:58] LABS: Basophils # (auto) 0.01 K/uL (0-0.2); Basophils % (auto) 0.1 %; Eosinophils # (auto) 0.08 K/uL (0-0.5); Hematocrit (blood only) 32.2 % (37-47); Hemoglobin 10.4 g/dL (12.0-16.0); Immature Granulocytes # (auto) 0.02 K/uL (0.00-0.02); Immature Granulocytes % (auto) 0.2 %; Lymphocytes # (auto) 1.31 K/uL (1.2-3.4); Lymphocytes % (auto) 15.7 %; Mean Corpuscular Hemoglobin 29.7 pg (25-34); Mean Corpuscular Hgb Conc 32.3 g/dL (32-36); Mean Platelet Volume 10.3 fL (7.4-10.4); Monocytes % (auto) 10.8 %; Neutrophils # (auto) 6.05 K/uL (1.4-6.5); Neutrophils % (auto) 72.2 %; Platelet Count 220 K/uL (130-400); RDW Standard Deviation 60.1 fL (36.4-46.3); White Blood Count 8.37 K/uL (4.8-10.8)
[2020-12-02 23:09] LABS: Partial Thromboplastin Ratio 1.6; Partial Thromboplastin Time 43.3 Seconds (21.0-31.0)
[2020-12-02 23:21] LABS: iSTAT Creatinine 0.5 mg/dl (0.6-1.3); iSTAT Hemoglobin 10.5 g/dl (12.0-16.0); iSTAT Ionized Calcium 1.17 mmol/l (1.12-1.32)
[2020-12-02] MEDS ORDERED: OPTIRAY 320 100ml IV ONE (23:35)
[2020-12-02 23:40] LABS: Albumin Level 3.2 gm/dl (3.4-5.0); Aspartate Aminotransferase 24 U/L (15-37); BUN Creatinine Ratio 18.4 (10-20); Blood Urea Nitrogen 11 mg/dl (7-18); Carbon Dioxide 31 mmol/L (21-32); Chloride 103 mmol/L (98-107); Creatinine Clr Calc Pharmacy 90.1 ml/min; Est GFR (African American) 106.1 ml/min; Est GFR (Non-African American) 91.6 ml/min; Glucose 194 mg/dl (70-99); Lipase 68 U/L (73-393); Sodium 136 mmol/L (136-145)
[2020-12-02 23:45] LABS: Alanine Aminotransferase 29 U/L (12-78); Albumin Globulin Ratio 0.9 (0.9-2); Alkaline Phosphatase 141 U/L (45-117); Bilirubin,Total 0.5 mg/dl (0.2-1); Globulin 3.4 gm/dl (2.5-4.0); Total Protein 6.6 gm/dl (6.4-8.2); Troponin I < 0.015 ng/ml (0-0.045)
[2020-12-03] MEDS ORDERED: MoRPHine SULFATE 4 MG/ML 1 ML CARP\\VIAL IV STA (00:29)
[2020-12-03] MEDS ORDERED: KETOROLAC TROMETHAMINE 15 MG/ML VIAL IV ONE (00:58)
--- NOTE | 2020-12-03 01:51 | History & Physical Report ---
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 fib on anticoagulation, obesity, per lipidemia, hypertension, hypothyroidism and anxiety; who presented to the emergency department for concerns of continued falls with fall at home approximately 1 week ago. Chest wall pain: -Unlikely to be of cardiac of origin given negative EKG and negative troponin with reproducible tenderness -Chest x-ray demonstrating no acute fractures/dislocations -Given the sporadic/intermittent nature and spasm-like descriptions of pain; consideration that this chest wall pain represents a intercostal muscle spasm generated from recent trauma -Trial of 5 mg of baclofen in ED -Voltaren gel and lidocaine patch to be used over left chest wall Recurrent falls: -Given these recurrent falls and patient's return home consideration for continued discussions with case management/social sciences department chair/office of aging in regards to patient's safety at home at this time -Consideration of PT OT evaluation if patient continues to feel unsteady on her feet following improvement of chest wall pain Atrial fibrillation: -Atrial paced rhythm on EKG in ED -Continue on home Xarelto Type 2 diabetes: -Relatively improved control of previously uncontrolled diabetes with recent A1c (10/27) of 8.0 -Continuation home regimen at this time Diet: Carb consistent CODE STATUS: Full code DVT prophylaxis: Continue home anticoagulation (2) Recurrent falls: (3) Atrial fibrillation: (4) Diabetes mellitus type 2, uncontrolled: History of Present Illness Chief Complaint: Persistent rib pain/spasms Primary Care Provider: Quinn Lovett MD Faith Solorzano is a 70-year-old female with past medical history significant for 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 fib on anticoagulation, obesity, per lipidemia, hypertension, hypothyroidism and anxiety; who presented to the emergency department for conc erns of continued falls with fall at home approximately 1 week ago. Over the last several days she has continued to have left-sided rib/chest pain. Notes that it is worsening with twisting, turning, or any movement. Decided to present to the ER after she noticed that this pain was present even with breathing. In ED continued to have persistent intermittent chest pain/spasms that seemingly improved with some rest and slow deep breaths. However, would ultimately return cyclically. 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 Allergies Allergy/AdvReac Type Severity Reaction Status Date / Time metformin AdvReac Severe Unknown Verified 12/03/20 01:17 Home Medications Medication Instructions Recorded Confirmed Type cyanocobalamin (vitamin B-12) 1,000 mcg IM MONTHLY ea 02/04/18 12/03/20 History 1,000 mcg/mL injection kit multivitamin 1 tab PO QAM 02/04/18 12/03/20 History cholecalciferol (vitamin D3) 25 1,000 unit PO QAM 07/29/19 12/03/20 History mcg (1,000 unit) capsule (Vitamin D3) atorvastatin 40 mg tablet 40 mg PO HS #90 tab 11/29/19 12/03/20 Rx meclizine 25 mg tablet 25 mg PO Q6H PRN #30 tab 01/12/20 12/03/20 Rx diltiazem HCl 120 mg capsule,24 120 mg PO QAM #90 cap 04/06/20 12/03/20 Rx hr,extended release (Taztia XT) insulin glargine 100 unit/mL (3 31 unit SQ HS #15 ml 06/08/20 12/03/20 Rx mL) subcutaneous pen (Lantus Solostar U-100 Insulin) dulaglutide 0.75 mg/0.5 mL 0.75 mg SUBCUT WK #2 ml 06/20/20 12/03/20 Rx subcutaneous pen injector (Trulicity) rivaroxaban 20 mg tablet (Xarelto) 20 mg PO QAM 08/14/20 12/03/20 History pantoprazole 40 mg tablet,delayed 40 mg PO QAM #90 tab 09/07/20 12/03/20 Rx release calcium 600 mg capsule 1 mg PO DAILY 09/27/20 12/03/20 History lisinopril 10 mg tablet 10 mg PO QAM #90 tab 10/09/20 12/03/20 Rx acetaminophen 500 mg tablet 1,000 mg PO TID PRN #90 tab 10/17/20 12/03/20 Rx (Tylenol Extra Strength) levothyroxine 25 mcg tablet 37.5 mcg PO QAM #135 tab 10/24/20 12/03/20 Rx duloxetine 60 mg capsule,delayed 60 mg PO QAM 10/25/20 12/03/20 History release gabapentin 600 mg tablet 300 mg PO BID #60 tab 10/25/20 12/03/20 Rx glipizide 10 mg tablet 5 mg PO BID tab 10/25/20 12/03/20 History buspirone 15 mg tablet 15 mg PO BID 10/30/20 12/03/20 History diclofenac sodium 1 % topical gel 2 g TOPICAL QID #2 g 11/03/20 12/03/20 Rx (Voltaren Arthritis Pain) ergocalciferol (vitamin D2) 1,250 50,000 unit PO Th@0900 #6 cap 11/03/20 Rx mcg (50,000 unit) capsule lidocaine 5 % topical patch 1 patch TRANSDERMAL QAM #1 ea 11/03/20 12/03/20 Rx nitrofurantoin macrocrystal 100 mg 100 mg PO BID #14 cap 11/29/20 12/03/20 Rx capsule tramadol 50 mg tablet (Ultram) 50 mg PO Q12H PRN #60 tab 11/29/20 12/03/20 Rx Past Med/Surg History Medical History Anxiety Aortic stenosis Atrial fibrillation Atrial flutter Bilateral hip bursitis Cervical spine disease Chronic anemia Chronic pain Degenerative disc disease Depression Diabetes mellitus, type 2 Gastroesophageal reflux disease Hx of cardiac pacemaker Hx of tachycardia-bradycardia syndrome Hypercholesterolemia Hypothyroidism Infiltrating ductal carcinoma of left breast Knee pain Liver mass Metastatic lung carcinoma Obstructive sleep apnea Peripheral neuropathy Surgical History H/O bilateral hip replacements History of section History of colonoscopy History of evacuation of hematoma (08/30/13) History of total knee arthroplasty Port-A-Cath in place (06/13/20) Status post appendectomy Status post arthroscopy of left shoulder Status post gastric bypass for obesity Status post laparoscopic cholecystectomy Status post lumbar spine surgery for decompression of spinal cord Status post panniculectomy Status post partial mastectomy of left breast Status post placement of cardiac pacemaker Status post repair of ventral hernia Status post total abdominal hysterectomy and bilateral salpingo-oophorectomy Status post total hip replacement, bilateral Family History Unknown Breast cancer Emphysema lung Mother Diabetes Heart disease Father Heart disease Other No family history of adverse response to anesthesia Denies family history of Ovarian cancer Prostate cancer Coronary heart disease Colorectal cancer Social History Smoking Status: Former smoker Tobacco Type: Cigarettes packs per day: 2; Second Hand Exposure: Yes; Hx Alcohol Use: No Hx Substance Use: No Preferred Language: Haitian Communication Ability: Effective Hearing Ability: Normal Vehicle And Equipment Cleaner Required: No Beliefs That Will Affect Care: None marital status: Current Living Situation: Spouse current occupational status: retired Other Information That Helps Us Care for You: No Feels Safe at Home: Yes Safety Concerns: Feels Safe At This Time Childhood Exposure to Second-Hand Smoke: Yes caffeine: Yes Dental Care, Regularly: No Physical Activity Frequency: 1-2 Times per Week Seatbelt Use: always Sunscreen Use: No Assistive Devices: Walker Review of Systems Review of Systems: All systems reviewed & are unremarkable except as noted in HPI & below Physical Exam Constitutional: WD/WN, vitals as above Eyes: PERRL, conjunctivae normal, anicteric sclerae Respiratory: normal respiratory effort, lungs clear to auscultation Auscultation: no crackles, no rales, no rhonchi and no wheezes Reproducible chest wall tenderness over left anterior axillary line Cardiovascular: Rate/Rhythm: regular rate and regular rhythm Heart Sounds: no gallop, no murmur and no cardiac rub Vessels: normal peripheral pulses; no JVD Extremities: no edema Gastrointestinal (Abdomen): Inspection/Auscultation: normal bowel sounds; abdomen not distended Percussion/Palpation: abdomen soft; abdomen nontender and no guarding Musculoskeletal: no cyanosis or clubbing, extremities motor strength 5/5 Skin: no rashes, warm and dry Neurologic: PERRL, EOMI, accommodation nl, no face palsy, no dysarthria CN's II-XI intact bilaterally and moves all extremities Psychiatric: Orientation: alert and oriented x 3 Results & Data Results & Data ([facility]) Vital Signs (Past 12 Hours) Vital Signs Temp Pulse Resp BP Pulse Ox 12/03/20 01:02 18 126/73 95 12/03/20 00:30 18 149/69 H 99 12/02/20 23:10 60 20 99 12/02/20 22:30 60 17 180/75 H 96 12/02/20 22:05 98 12/02/20 22:03 60 18 150/71 H 100 12/02/20 21:36 36.1 C L 65 20 149/83 H 100 Laboratory Results 12/03/20 12/03/20 12/02/20 Range/Units 00:55 00:55 23:06 WBC (4.8-10.8) K/uL RBC (4.2-5.4) M/uL Hgb (12.0-16.0) g/dL POC Hgb 10.5 L (12.0-16.0) g/dl Hct (37-47) % POC Hct 31 L (37-47) % MCV (80-100) fL MCH (25-34) pg MCHC (32-36) g/dL RDW Std Deviation (36.4-46.3) fL RDW Coeff of Thompson (11.5-14.5) % Plt Count (130-400) K/uL MPV (7.4-10.4) fL Immature Gran % (Auto) % Neut % (Auto) % Lymph % (Auto) % [place] % (Auto) % Eos % (Auto) % Baso % (Auto) % Neut # (Auto) (1.4-6.5) K/uL Lymph # (Auto) (1.2-3.4) K/uL [place] # (Auto) (0.11-0.59) K/uL Eos # (Auto) (0-0.5) K/uL Baso # (Auto) (0-0.2) K/uL Immature Gran # (Auto) (0.00-0.02) K/uL APTT (21.0-31.0) Seconds PTT Ratio POC Sodium 137 (135-144) mmol/L Sodium (136-145) mmol/L POC Potassium 4.0 (3.3-5.0) mmol/L Potassium (3.5-5.1) mmol/L POC Chloride 98 L (101-112) mmol/L Chloride (98-107) mmol/L Carbon Dioxide (21-32) mmol/L POC Total CO2 25 (24-31) mmol/L Anion Gap (3-11) POC Anion Gap 19.0 (16-25) mmol/L POC BUN 10 (7-18) mg/dl BUN (7-18) mg/dl Creatinine (0.6-1.2) mg/dl POC Creatinine 0.5 L (0.6-1.3) mg/dl Est Cr Clr Drug Dosing ml/min Est GFR ( Amer) ml/min Est GFR (Non-Af Amer) ml/min BUN/Creatinine Ratio (10-20) Glucose (70-99) mg/dl POC Glucose (other) 195 H (70-99) mg/dl Calcium (8.5-10.1) mg/dl POC Ioniz Calcium Janice 1.17 (1.12-1.32) mmol/l Total Bilirubin (0.2-1) mg/dl AST (15-37) U/L ALT (12-78) U/L Alkaline Phosphatase (45-117) U/L Troponin I (0-0.045) ng/ml Total Protein (6.4-8.2) gm/dl Albumin (3.4-5.0) gm/dl Globulin (2.5-4.0) gm/dl Albumin/Globulin Ratio (0.9-2) Lipase (73-393) U/L COVID-19 Eval Order Covid19 at [facility] SARS-CoV-2 (PCR) NEGATIVE (Negative) 12/02/20 12/02/20 12/02/20 Range/Units 22:47 22:47 22:47 WBC 8.37 (4.8-10.8) K/uL RBC 3.50 L (4.2-5.4) M/uL Hgb 10.4 L (12.0-16.0) g/dL POC Hgb (12.0-16.0) g/dl Hct 32.2 L (37-47) % POC Hct (37-47) % MCV 92.0 (80-100) fL MCH 29.7 (25-34) pg MCHC 32.3 (32-36) g/dL RDW Std Deviation 60.1 H (36.4-46.3) fL RDW Coeff of Thompson 18.0 H (11.5-14.5) % Plt Count 220 (130-400) K/uL MPV 10.3 (7.4-10.4) fL Immature Gran % (Auto) 0.2 % Neut % (Auto) 72.2 % Lymph % (Auto) 15.7 % [place] % (Auto) 10.8 % Eos % (Auto) 1.0 % Baso % (Auto) 0.1 % Neut # (Auto) 6.05 (1.4-6.5) K/uL Lymph # (Auto) 1.31 (1.2-3.4) K/uL [place] # (Auto) 0.90 H (0.11-0.59) K/uL Eos # (Auto) 0.08 (0-0.5) K/uL Baso # (Auto) 0.01 (0-0.2) K/uL Immature Gran # (Auto) 0.02 (0.00-0.02) K/uL APTT 43.3 H (21.0-31.0) Seconds PTT Ratio 1.6 POC Sodium (135-144) mmol/L Sodium 136 (136-145) mmol/L POC Potassium (3.3-5.0) mmol/L Potassium 4.0 (3.5-5.1) mmol/L POC Chloride (101-112) mmol/L Chloride 103 (98-107) mmol/L Carbon Dioxide 31 (21-32) mmol/L POC Total CO2 (24-31) mmol/L Anion Gap 2.0 L (3-11) POC Anion Gap (16-25) mmol/L POC BUN (7-18) mg/dl BUN 11 (7-18) mg/dl Creatinine 0.59 L (0.6-1.2) mg/dl POC Creatinine (0.6-1.3) mg/dl Est Cr Clr Drug Dosing 90.1 ml/min Est GFR ( Amer) 106.1 ml/min Est GFR (Non-Af Amer) 91.6 ml/min BUN/Creatinine Ratio 18.4 (10-20) Glucose 194 H (70-99) mg/dl POC Glucose (other) (70-99) mg/dl Calcium 9.0 (8.5-10.1) mg/dl POC Ioniz Calcium Janice (1.12-1.32) mmol/l Total Bilirubin 0.5 (0.2-1) mg/dl AST 24 (15-37) U/L ALT 29 (12-78) U/L Alkaline Phosphatase 141 H (45-117) U/L Troponin I < 0.015 (0-0.045) ng/ml Total Protein 6.6 (6.4-8.2) gm/dl Albumin 3.2 L (3.4-5.0) gm/dl Globulin 3.4 (2.5-4.0) gm/dl Albumin/Globulin Ratio 0.9 (0.9-2) Lipase 68 L (73-393) U/L COVID-19 Eval Order SARS-CoV-2 (PCR) (Negative) Diagnostic Findings XR chest 2V PA/lateral HISTORY: 70 years-old Female C50.012 acute atypical chest pain COMPARISON: 10/30/2020 TECHNIQUE: AP and lateral views of the chest FINDINGS: Cardiac silhouette is enlarged. Left subclavian pacer. Mild chronic interstitial coarsening. No pneumothorax, or large pleural effusion, lobar airspace consolidation or overt pulmonary edema. Mild blunting of the left costophrenic angle. Right subclavian Ioihzo-s-Utap catheter. Left shoulder arthroplasty. Degenerative changes of the right shoulder and spine. Partially imaged lumbar spinal fusion hardware. IMPRESSION: 1. Cardiomegaly. 2. Blunting of the left costophrenic angle suggestive of a trace effusion versus atelectasis. 3. No pneumothorax. Electronically signed by: Jeremy Batres M.D. CT CHEST With Contrast: Comparison: None. There is a left-sided pacemaker in place. Normal cardiac size. Mild left effusion. Minimal left posterior dependent atelectasis. Mild left upper lobe atelectasis. Tiny nodule within the right lower lobe measuring 3.4 mm. Depending on risk factors, recommend CT evaluation in 6-12 months to document stability. Upper abdomen reveals a small low-attenuation structure within the liver incompletely included in the [id number] and therefore is suboptimally characterized, measuring 1.4 cm. Status post cholecystectomy. If indicated, follow-up with CT chest may further characterized these findings or comparison to prior films if made available. Degenerative disease of the spine. Radiologist: Araceli Chavarria MD CT C SPINE: Comparison: 03/24/2020. Diffuse osteopenia along with degenerative disease. Mild anterolisthesis of C5 on C6, stable in the interval. Otherwise normal alignment. No acute fracture. Radiologist: Araceli Chavarria MD CT HEAD: Comparison: 03/24/2020. No ICH, mass effect or edema. No evidence of acute cortical stroke. Periventricular small vessel ischemic change. Mild generalized brain atrophy. Visualized sinuses and mastoid air cells are clear. Focal thickening/swelling versus small hematoma involving the scalp over the left lateral frontal bone at the mid skull level. Radiologist: Araceli Chavarria MD Medications Administered Home Medication List Medication Instructions Recorded cyanocobalamin (vitamin B-12) 1,000 mcg IM MONTHLY ea 02/04/18 1,000 mcg/mL injection kit multivitamin 1 tab PO QAM 02/04/18 cholecalciferol (vitamin D3) 25 1,000 unit PO QAM 07/29/19 mcg (1,000 unit) capsule (Vitamin D3) atorvastatin 40 mg tablet 40 mg PO HS #90 tab 11/29/19 meclizine 25 mg tablet 25 mg PO Q6H PRN #30 tab 01/12/20 diltiazem HCl 120 mg capsule,24 120 mg PO QAM #90 cap 04/06/20 hr,extended release (Taztia XT) insulin glargine 100 unit/mL (3 31 unit SQ HS #15 ml 06/08/20 mL) subcutaneous pen (Lantus Solostar U-100 Insulin) dulaglutide 0.75 mg/0.5 mL 0.75 mg SUBCUT WK #2 ml 06/20/20 subcutaneous pen injector (Trulicity) rivaroxaban 20 mg tablet (Xarelto) 20 mg PO QAM 08/14/20 pantoprazole 40 mg tablet,delayed 40 mg PO QAM #90 tab 09/07/20 release calcium 600 mg capsule 1 mg PO DAILY 09/27/20 lisinopril 10 mg tablet 10 mg PO QAM #90 tab 10/09/20 acetaminophen 500 mg tablet 1,000 mg PO TID PRN #90 tab 10/17/20 (Tylenol Extra Strength) levothyroxine 25 mcg tablet 37.5 mcg PO QAM #135 tab 10/24/20 duloxetine 60 mg capsule,delayed 60 mg PO QAM 10/25/20 release gabapentin 600 mg tablet 300 mg PO BID #60 tab 10/25/20 glipizide 10 mg tablet 5 mg PO BID tab 10/25/20 buspirone 15 mg tablet 15 mg PO BID 10/30/20 diclofenac sodium 1 % topical gel 2 g TOPICAL QID #2 g 11/03/20 (Voltaren Arthritis Pain) ergocalciferol (vitamin D2) 1,250 50,000 unit PO Th@0900 #6 cap 11/03/20 mcg (50,000 unit) capsule lidocaine 5 % topical patch 1 patch TRANSDERMAL QAM #1 ea 11/03/20 nitrofurantoin macrocrystal 100 mg 100 mg PO BID #14 cap 11/29/20 capsule tramadol 50 mg tablet (Ultram) 50 mg PO Q12H PRN #60 tab 11/29/20 Code Status & VTE Plan VTE Prophylaxis Plan VTE Prophylaxis will be ordered: Yes Supervising Physician Co-Signing Physician Notes Chest wall pain/presumptive costochondritis- Negative chest x-ray and CT of chest Trial of baclofen 5 mg p.o. 3 times daily as needed muscle spasm Voltaren gel 4 times daily as needed overnight and lidocaine patch to be used during the day Recurrent falls- PT/OT assessment ancillary services manager assessment Remaining orders and notations as noted Resident Activity Tracking Resident Involvement: Resident Care Provided Care Provided: Adult Hospital Medicine (1) Atrial fibrillation Atrial fibrillation type: unspecified Qualified Code(s): I48.91 - Unspecified atrial fibrillation (2) Diabetes mellitus type 2, uncontrolled Glycemic state: with hyperglycemia Qualified Code(s): E11.65 - Type 2 diabetes mellitus with hyperglycemia
[2020-12-03] MEDS ORDERED: BACLOFEN 10 MG TAB PO ONE (01:52)
[2020-12-03] MEDS ORDERED: ACETAMINOPHEN 500 MG TAB PO PRN (06:29)
[2020-12-03] MEDS ORDERED: MECLIZINE HCL 25 MG TAB PO PRN (06:30)
[2020-12-03] MEDS: traMADol HCL 50 MG TABLET PO PRN (06:38)
[2020-12-03] MEDS ORDERED: CARBOHYDRATES FOR HYPOGLYCEMIA PO PRN (06:45)
[2020-12-03] MEDS ORDERED: GLUCOSE 40% GEL 15 GM TUBE PO PRN (06:45)
[2020-12-03] MEDS ORDERED: DEXTROSE 50% 50 ML SYRINGE IV PRN (06:45)
[2020-12-03] MEDS ORDERED: GLUCAGON FOR INJ 1 MG VIAL IM PRN (06:45)
[2020-12-03] MEDS ORDERED: GLUCOSE 10 TABS/TUBE PO PRN (06:45)
[2020-12-03] MEDS: LEVOTHYROXINE SODIUM 75 MCG TABLET PO SCH (07:09)
--- NOTE | 2020-12-03 07:52 | Hospitalist Progress Note ---
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 fib on anticoagulation, obesity, hyperlipidemia, hypertension, hypothyroidism, and anxiety; who presented for recurrent falls and found to have acute rib fracture x 2. acute rib fractures: -Acute fractures of the lateral left sixth and seventh ribs. No pneumothorax. Small left pleural effusion. -Less likely cardiac of origin given negative EKG and negative troponin with reproducible tenderness -Chest x-ray demonstrating no acute fractures/dislocations -head CT and c spine w/o acute changes -Given the sporadic/intermittent nature and spasm-like descriptions of pain; consideration that this chest wall pain represents a intercostal muscle spasm generated from recent trauma -Patient is uncomfortable from the rib fractures, but does not demonstrate emergent complications such as pneumothorax or respiratory distress - deeps breathing is uncomfortable. added 2L supp O2 via nasal cannula for comfort. ordered incentive spirometry to reduce incidence of atelectasis - continue supportive medical management Pain control: - severe 8-10/10 pain w/ patient shouting and screaming during exacerbations - ED medications, which included 4 mg IV morphine x2, toradol, baclofen, volt aren, lidocaine patch did not help the pain - during daytime 12/03, provided 2 mg IV morphine w/o relief. provided 10 mg PO oxycodone w/ good relief. this was chose because patient had good response to 5 mg PO oxycodone at rehab several weeks ago. She is not on chronic narcotics at home. - continue 1000 mg PO tylenol q8h prn - ordered oxycodone 10 mg q6h prn. space out further depending on patient needs Recurrent falls: -Given these recurrent falls and patient's return home consideration for continued discussions with case management/psychosocial rehabilitation counselor/office of aging in regards to patient's safety at home at this time -Consideration of PT OT evaluation if patient continues to feel unsteady on her feet following improvement of chest wall pain Atrial fibrillation: -Atrial paced rhythm on EKG in ED -Continue on home Xarelto Type 2 diabetes: -Relatively improved control of previously uncontrolled diabetes with recent A1c (10/27) of 8.0 -Continuation home regimen at this time Diet: Carb consistent CODE STATUS: Full code DVT prophylaxis: Continue home anticoagulation Dispo: med surg. PT/OT consulted. Patient states she has good support system from at home (2) Recurrent falls: (3) Atrial fibrillation: (4) Diabetes mellitus type 2, uncontrolled: Admission and Anticipated Discharge Date Admission Date: December 03, 2020 Subjective Patient still in a lot of pain. The tylenol and tramadol did not help. States oxycodone at rehab ([facility] dispo home 9 days ago) helped 2mg q4h helped. Last Friday, fell and hit edge of couch. , pain started. Yesterday, turned weirdly and thinks pulled something. -01/26 constant sharp pain, no radiation, worse w/ movement. 02/25 when exacerbated. Review of Systems Review of Systems: Constitutional: Denies fever, chills Eyes: Denies blurry vision, vision changes Cardiovascular: Denies chest pain, palpitations Respiratory: Denies shortness of breath Gastrointestinal: Denies abdominal pain, nausea, vomiting, constipation, d iarrhea Genitourinary: Denies urinary symptoms including dysuria Musculoskeletal: See HPI Neurological: Denies headache, numbness, tingling, focal weakness Physical Exam Physical Exam: vitals reviewed. elevated BPs overnight likely 2/2 pain General: Grossly A&O. NAD. Uncomfortable from pain. Cooperative. HEENT: Atraumatic, normocephalic. EOMI Pulm: CTAB anteriorly. -wheezes, -rales, -rhonchi. No respiratory distress. Cardiac: RRR, -mrg. Radial pulses intact and symmetrical. No LE edema. Abdominal: Nontender, nondistended, soft. Msk: TTP L ribs to light palpation. Integ: No bruising noted at left flank/ribs. Results & Data Results & Data ([facility]) Vital Signs (Past 12 Hours) Vital Signs Temp Pulse Pulse Resp BP BP Pulse Ox 12/03/20 04:30 36.8 C 64 16 162/90 H 98 12/03/20 03:00 145/71 H 100 12/03/20 02:31 124/67 95 12/03/20 02:01 18 103/54 L 94 12/03/20 01:31 16 171/52 H 98 12/03/20 01:02 18 126/73 95 12/03/20 00:30 18 149/69 H 99 12/02/20 23:10 60 20 99 12/02/20 22:30 60 17 180/75 H 96 12/02/20 22:05 98 12/02/20 22:03 60 18 150/71 H 100 12/02/20 21:36 36.1 C L 65 20 149/83 H 100 Laboratory Results hb 10.4 stable. aptt 43.3H. bmp ok. alk phos 141H. LDH 272H. neg tropx1. lipase normal. Resident Activity Tracking Resident Involvement: Resident Care Provided Care Provided: Adult Hospital Medicine (1) Atrial fibrillation Atrial fibrillation type: unspecified Qualified Code(s): I48.91 - Unspecified atrial fibrillation (2) Diabetes mellitus type 2, uncontrolled Glycemic state: with hyperglycemia Qualified Code(s): E11.65 - Type 2 diabetes mellitus with hyperglycemia
--- NOTE | 2020-12-03 08:02 | CT Scan Report ---
CERVICAL SPINE CT CT DOSE: HISTORY: fall TECHNIQUE: Multiaxial CT images of the cervical spine were performed and reformatted in the sagittal and coronal plane without the use of contrast. A dose lowering technique was utilized adhering to th e principles of ALARA. COMPARISON: None. FINDINGS: Mild anterolisthesis of C5 on C6. The C5-C6 facets are fused. This remains unchanged. Moder ate disc space narrowing at C5-C6. Left-sided pacemaker wires are partially visualized. There is also partially visualized right subclavian central venous catheter. IMPRESSION: No fractures within the cervical spine. ACT 112: Negative or not required by law. Electronically signed by: Shan Hollingsworth M.D. 12/03/2020 8:01 AM
[2020-12-03] MEDS: PANTOprazole 40 MG TAB PO SCH (08:41)
[2020-12-03] MEDS: GABAPENTIN 300 MG CAP PO SCH ×2 (08:42→22:01)
[2020-12-03] MEDS: dilTIAZem ER 120 MG CAPCR PO SCH (08:42)
[2020-12-03] MEDS: busPIRone 15 MG TAB PO SCH ×2 (08:42→22:00)
[2020-12-03] MEDS: lisinopril 10 MG TAB PO SCH (08:42)
[2020-12-03] MEDS: DULoxetine HCL 60 MG CAP PO SCH (08:42)
[2020-12-03] MEDS: glipiZIDE 5 MG TAB PO SCH ×2 (08:43→17:47)
[2020-12-03] MEDS: DICLOFENAC SOD 1% GEL 100 GM TUBE EXT SCH ×4 (08:43→22:02)
[2020-12-03] MEDS: LIDOCAINE 5% 1 PATCH TD SCH (08:43)
--- NOTE | 2020-12-03 08:57 | CT Scan Report ---
CT OF THE HEAD WITHOUT CONTRAST CLINICAL HISTORY: Fall. COMPARISON STUDY: Head CT October 25, 2020. CT DOSE: 1762.55 mGy.cm TECHNIQUE: Helical axial images of the head were obtained without IV contrast. Automated exposure con trol was utilized for the study. A dose lowering technique was utilized adhering to the principles o f ALARA. FINDINGS: No acute intracranial hemorrhage, midline shift or mass effect is present. The ventricular system is unremarkable. The basal cisterns are patent. No extra-axial collections are present. There are no findings to suggest acute dural sinus thrombosis or acute territorial infarct. No significant calvarial abnormalities are present. Visualized portions of the sinuses and mastoid air cells are nguyen ar. A small left temporal scalp contusion is present. IMPRESSION: 1. No acute intracranial findings. 2. No calvarial fracture. ACT 112: Negative or not required by law. Electronically signed by: Eladio Keane M.D. 12/03/2020 8:56 AM
--- NOTE | 2020-12-03 09:09 | CT Scan Report ---
CT OF THE CHEST WITH IV CONTRAST CLINICAL HISTORY: Left chest wall pain following fall. History of breast cancer. COMPARISON STUDY: Chest CT September 01, 2020. Chest radiograph December 01, 2020. TECHNIQUE: Following IV administration of 94 mL of Optiray, helical axial images of the chest were o btained. Sagittal and coronal reconstructions were viewed as well as maximal intensity projections o n an independent 3-D workstation. Automated exposure control was utilized for the study. A dose low ering technique was utilized adhering to the principles of ALARA. FINDINGS: Left shoulder arthroplasty, right subclavian [id number] and dual-lead left subclavian p acemaker are in place. Note is made of numerous old, healed bilateral rib fractures. There are acute nondisplaced fractures of the anterolateral left sixth and seventh ribs. A small left pleural effusio n is noted. There is no pneumothorax. Several pulmonary nodules are unchanged from earlier chest CTs. These are benign. Cardiomegaly is noted. There is no pericardial effusion. No enlarged axillary, med iastinal or hilar lymph nodes are present. No acute thoracic spine fracture is noted. A hypodense rig ht hepatic lobe lesion is partially imaged on this examination. This represents biopsy-proven hepatic metastasis. Visualized portions are unchanged since prior exam. IMPRESSION: 1. Acute fractures of the lateral left sixth and seventh ribs. No pneumothorax. Small left pleural ef fusion. This finding will be called/faxed to the ordering provider at time of dictation. 2. No additional acute traumatic findings within the chest. 3. Partial visualization of the biopsy-proven right hepatic lobe metastasis. ACT 112: Negative or not required by law. Electronically signed by: Eladio Keane M.D. 12/03/2020 9:08 AM
[2020-12-03] MEDS ORDERED: MoRPHine SULFATE 2 MG/ML CARP IV STA (10:14)
[2020-12-03] MEDS: HEPARIN 100 UNIT/ML 5ML FLUSH FLUSH PRN (11:23)
[2020-12-03] MEDS ORDERED: ACETAMINOPHEN 500 MG TAB PO ONE (12:33)
--- NOTE | 2020-12-03 13:27 | Electrocardiogram Report ---
Test Reason : Blood Pressure : / mmHG Vent. Rate : 060 BPM Atrial Rate : 060 BPM P-R Int : 198 ms QRS Dur : 088 ms QT Int : 452 ms P-R-T Axes : 048 020 023 degrees QTc Int : 452 ms Poor data quality, interpretation may be adversely affected Atrial-paced rhythm Abnormal ECG When compared with ECG of 28-OCT-2020 22:13, Electronic atrial pacemaker has replaced Sinus rhythm Confirmed by Damaso Mcfarlane ([id number]) on 12/03/2020 1:26:57 PM Referred By: REFERRED SELF Confirmed By:Damaso Mcfarlane
[2020-12-03] MEDS ORDERED: oxyCODONE HCL IR 5 MG TAB (IMMEDIATE RELEASE) PO STA (14:09)
[2020-12-03] MEDS ORDERED: ONDANSETRON 4 MG OD TAB PO PRN ×2 (14:11→14:13)
[2020-12-03] MEDS: RIVAROXABAN 20 MG TAB PO SCH (16:48)
--- NOTE | 2020-12-03 19:27 | Billing Data ---
Date of Service December 03, 2020 Coding Level of Care Code INT OBSERVATION CARE 70M LVL 3
[2020-12-03] MEDS: oxyCODONE HCL IR 5 MG TAB (IMMEDIATE RELEASE) PO PRN (19:38)
[2020-12-03] MEDS: INSULIN GLARGINE SOLOSTAR 100 UNITS/ML 3 ML PEN SQ SCH (21:59)
[2020-12-03] MEDS: ATORVASTATIN 40 MG TAB PO SCH (22:00)
[2020-12-03] MEDS ORDERED: MELATONIN 3 MG TAB PO ONE (23:34)
[2020-12-04] MEDS: oxyCODONE HCL IR 5 MG TAB (IMMEDIATE RELEASE) PO PRN ×4 (04:08→22:42)
[2020-12-04] MEDS: LEVOTHYROXINE SODIUM 75 MCG TABLET PO SCH (04:10)
--- NOTE | 2020-12-04 06:52 | Hospitalist Progress Note ---
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 fib on anticoagulation, obesity, hyperlipidemia, hypertension, hypothyroidism, and anxiety who presented for recurrent falls and found to have acute rib fracture x 2. Chest pain s/p falls Chest pain reproducible on exam, EKG without ischemic change, no elevated troponin - chest pain unlikely ACS in origin CT shows acute fractures of the lateral left sixth and seventh ribs without pneumothorax; small left pleural effusion noted Continue pain control with oxycodone 10mg PO q6h prn APAP 1000mg q8h changed from prn to scheduled Continue incentive spirometry Recurrent falls PT/OT evaluation if patient continues to feel unsteady on her feet following improvement of chest wall pain Atrial fibrillation: -Atrial paced rhythm on EKG in ED -Continue on home Xarelto Type 2 diabetes: -Relatively improved control of previously uncontrolled diabetes with recent A1c (10/27) of 8.0 -Continuation home regimen at this time Diet: Carb consistent CODE STATUS: Full code DVT prophylaxis: Continue home anticoagulation Dispo: med surg. PT/OT consulted. Patient states she has good support system from at home (2) Recurrent falls: (3) Atrial fibrillation: (4) Diabetes mellitus type 2, uncontrolled: Admission and Anticipated Discharge Date Admission Date: December 03, 2020 Subjective Patient seen and evaluated at bedside this morning. No acute events overnight. Patient is in pain this morning, 6/10 at rest and sometimes up to 9/10 with movement. Denies SOB, cough, fever, chills, abdominal pain, nausea, vomiting, or other symptoms. Review of Systems Review of Systems: See HPI Physical Exam Physical Exam: Constitutional: well-appearing, no acute distress CV: regular rhythm, no murmur appreciated, extremities well-perfused Resp: CTABL, no wheezes/rales/rhonchi appreciated, no increased work of breathing MSK: chest wall examination deferred 2/2 rib fractures Skin: warm, dry, no rash appreciated Neuro: AOx4, no focal neurological deficits appreciated Results & Data Results & Data ([facility]) Vital Signs (Past 12 Hours) Vital Signs Temp Pulse Resp BP Pulse Ox 12/04/20 05:56 36.6 C 65 22 114/62 94 12/03/20 22:00 37 C 60 20 119/69 95 (1) Atrial fibrillation Atrial fibrillation type: unspecified Qualified Code(s): I48.91 - Unspecified atrial fibrillation (2) Diabetes mellitus type 2, uncontrolled Glycemic state: with hyperglycemia Qualified Code(s): E11.65 - Type 2 diabetes mellitus with hyperglycemia
[2020-12-04] MEDS: lisinopril 10 MG TAB PO SCH (08:40)
[2020-12-04] MEDS: DULoxetine HCL 60 MG CAP PO SCH (08:40)
[2020-12-04] MEDS: PANTOprazole 40 MG TAB PO SCH (08:42)
[2020-12-04] MEDS: dilTIAZem ER 120 MG CAPCR PO SCH (08:42)
[2020-12-04] MEDS: DICLOFENAC SOD 1% GEL 100 GM TUBE EXT SCH ×4 (08:42→21:06)
[2020-12-04] MEDS: GABAPENTIN 300 MG CAP PO SCH ×2 (08:42→20:10)
[2020-12-04] MEDS: busPIRone 15 MG TAB PO SCH ×2 (08:42→20:10)
[2020-12-04] MEDS: glipiZIDE 5 MG TAB PO SCH ×2 (08:43→18:22)
[2020-12-04] MEDS: LIDOCAINE 5% 1 PATCH TD SCH (08:43)
[2020-12-04 09:36] LABS: BUN Creatinine Ratio 20.3 (10-20); Calcium 8.3 mg/dl (8.5-10.1); Est GFR (African American) 109.9 ml/min; Est GFR (Non-African American) 94.9 ml/min; Potassium 4.4 mmol/L (3.5-5.1)
[2020-12-04] MEDS: traMADol HCL 50 MG TABLET PO PRN (13:13)
[2020-12-04] MEDS: ACETAMINOPHEN 500 MG TAB PO SCH ×2 (15:28→20:10)
[2020-12-04] MEDS: RIVAROXABAN 20 MG TAB PO SCH (16:35)
--- NOTE | 2020-12-04 18:10 | Billing Data ---
Date of Service December 04, 2020 Coding Level of Care Code 66064 Subseq Obs Care Lvl 3
[2020-12-04] MEDS: ATORVASTATIN 40 MG TAB PO SCH (20:10)
[2020-12-04] MEDS: INSULIN GLARGINE SOLOSTAR 100 UNITS/ML 3 ML PEN SQ SCH (21:04)
[2020-12-04] MEDS: MELATONIN 3 MG TAB PO PRN (22:42)
[2020-12-05] MEDS: LEVOTHYROXINE SODIUM 75 MCG TABLET PO SCH (05:42)
[2020-12-05] MEDS: oxyCODONE HCL IR 5 MG TAB (IMMEDIATE RELEASE) PO PRN ×4 (05:45→22:01)
[2020-12-05] MEDS: traMADol HCL 50 MG TABLET PO PRN (08:18)
[2020-12-05] MEDS: PANTOprazole 40 MG TAB PO SCH (09:10)
[2020-12-05] MEDS: GABAPENTIN 300 MG CAP PO SCH ×2 (09:11→20:38)
[2020-12-05] MEDS: busPIRone 15 MG TAB PO SCH ×2 (09:11→20:38)
[2020-12-05] MEDS: DULoxetine HCL 60 MG CAP PO SCH (09:11)
[2020-12-05] MEDS: ACETAMINOPHEN 500 MG TAB PO SCH ×3 (09:11→20:38)
[2020-12-05] MEDS: DICLOFENAC SOD 1% GEL 100 GM TUBE EXT SCH ×4 (09:12→22:01)
[2020-12-05] MEDS: dilTIAZem ER 120 MG CAPCR PO SCH (09:12)
[2020-12-05] MEDS: glipiZIDE 5 MG TAB PO SCH ×2 (09:12→17:49)
[2020-12-05] MEDS: lisinopril 10 MG TAB PO SCH (09:12)
[2020-12-05] MEDS: LIDOCAINE 5% 1 PATCH TD SCH ×2 (09:13→10:48)
[2020-12-05] MEDS ORDERED: oxyCODONE HCL IR 5 MG TAB (IMMEDIATE RELEASE) PO PRN ×2 (09:14→10:09)
--- NOTE | 2020-12-05 09:26 | Hospitalist Progress Note ---
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 fib on anticoagulation, obesity, hyperlipidemia, hypertension, hypothyroidism, and anxiety who presented for recurrent falls and found to have acute rib fracture x 2. Chest pain s/p falls Chest pain reproducible on exam, EKG without ischemic change, no elevated troponin - chest pain unlikely ACS in origin CT shows acute fractures of the lateral left sixth and seventh ribs without pneumothorax; small left pleural effusion noted Tramadol discontinued APAP 1000mg q8h changed from prn to scheduled Lidocaine patch prn Oxycodone 10mg PO changed from q6h to q4h prn pain Continue to encourage incentive spirometry Recurrent falls PT/OT evaluation if patient continues to feel unsteady on her feet following improvement of chest wall pain Atrial fibrillation Atrial-paced rhythm on EKG Continue xarelto DM2 HbA1c 8.0% (10/27) Patient's home regimen held on admission Continue BSG checks, sliding-scale insulin, hypoglycemic protocol FEN: carb-consistent Code status: full code DVT ppx: xarelto Isolation: none Consults: none Dispo: med/surg (2) Recurrent falls: (3) Atrial fibrillation: (4) Diabetes mellitus type 2, uncontrolled: Admission and Anticipated Discharge Date Admission Date: December 03, 2020 Supervising Physician Co-Signing Physician Notes I personally examined the patient and verified all edwards points of history and exam, discussed case, and agree with decision making with Dr Kc Still pain with movement. Does incentive spirometer for and myself for several repetitions and does not have a whole lot of visible painbut does whenever she tries to move around in bed much. Vitals noted, in general she is awake and alert pleasant and generally in no distress, HEENT normocephalic atraumatic mucous membranes moist. Breathing unlabored no accessory muscle use good effort. Skin shows no rashes no pallor or icterus. Rib fractures with chest paincontinue to titrate pain control, supportive care. Time. Incentive spirometry goal of 5 times an hour Recurrent falls/weaknessPT/OT eval and treat. Did surprisingly well with PThopefully will actually be able to go home with therapy as an outpatient. Otherwise as above Subjective Patient seen and evaluated at bedside this morning. No acute events overnight. Engaged well with PT yesterday. Rib pain is no better or worse from yesterday. Patient is worried it will never get better. However she is easily redirectable and appears optimistic after a short conversation. Patient denies SOB, abdominal pain, nausea, vomiting, lightheadedness, dizziness, or other symptoms. Review of Systems Review of Systems: See HPI Physical Exam Physical Exam: Constitutional: well-appearing, no acute distress CV: regular rhythm, no murmur appreciated, extremities well-perfused Resp: CTABL, no wheezes/rales/rhonchi appreciated, no increased work of breathing MSK: chest wall examination deferred 2/2 rib fractures Skin: warm, dry, no rash appreciated Neuro: AOx4, no focal neurological deficits appreciated Results & Data Results & Data ([facility]) Vital Signs (Past 12 Hours) Vital Signs Temp Pulse Resp BP Pulse Ox 12/05/20 07:37 36.6 C 84 16 113/62 95 12/04/20 22:13 37.4 C 75 16 149/46 H 94 (1) Atrial fibrillation Atrial fibrillation type: unspecified Qualified Code(s): I48.91 - Unspecified atrial fibrillation (2) Diabetes mellitus type 2, uncontrolled Glycemic state: with hyperglycemia Qualified Code(s): E11.65 - Type 2 diabetes mellitus with hyperglycemia
[2020-12-05] MEDS ORDERED: traMADol HCL 50 MG TABLET PO PRN (10:09)
[2020-12-05] MEDS: RIVAROXABAN 20 MG TAB PO SCH (16:42)
--- NOTE | 2020-12-05 20:06 | Billing Data ---
Date of Service December 05, 2020 Coding Level of Care Code 87715 Subseq Hosp Care Lvl 2
[2020-12-05] MEDS: ATORVASTATIN 40 MG TAB PO SCH (20:38)
[2020-12-05] MEDS: INSULIN GLARGINE SOLOSTAR 100 UNITS/ML 3 ML PEN SQ SCH (20:40)
[2020-12-05] MEDS: MELATONIN 3 MG TAB PO PRN (22:01)
[2020-12-06] MEDS: oxyCODONE HCL IR 5 MG TAB (IMMEDIATE RELEASE) PO PRN ×6 (01:57→22:24)
[2020-12-06] MEDS: HEPARIN 100 UNIT/ML 5ML FLUSH FLUSH PRN (05:53)
[2020-12-06] MEDS: LEVOTHYROXINE SODIUM 75 MCG TABLET PO SCH (05:58)
[2020-12-06 06:47] LABS: Creatinine Clr Calc Pharmacy 101.9 ml/min; Est GFR (African American) 110.6 ml/min; Est GFR (Non-African American) 95.5 ml/min
--- NOTE | 2020-12-06 08:03 | Hospitalist Progress Note ---
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 fib on anticoagulation, obesity, hyperlipidemia, hypertension, hypothyroidism, and anxiety who presented for recurrent falls and found to have acute rib fracture x 2. Chest pain s/p falls Chest pain reproducible on exam, EKG without ischemic change, no elevated troponin - chest pain unlikely ACS in origin CT shows acute fractures of the lateral left sixth and seventh ribs without pneumothorax; small left pleural effusion noted Tramadol discontinued APAP 1000mg q8h changed from prn to scheduled Lidocaine patch prn Oxycodone 10mg PO q4h prn pain Continue to encourage incentive spirometry Recurrent falls Continue PT/OT Atrial fibrillation Atrial-paced rhythm on EKG Continue xarelto DM2 HbA1c 8.0% (10/27) Patient's home regimen held on admission Continue BSG checks, sliding-scale insulin, hypoglycemic protocol FEN: carb-consistent Code status: full code DVT ppx: xarelto Isolation: none Consults: none Dispo: med/surg (2) Recurrent falls: (3) Atrial fibrillation: (4) Diabetes mellitus type 2, uncontrolled: Admission and Anticipated Discharge Date Admission Date: December 05, 2020 Supervising Physician Co-Signing Physician Notes I personally examined the patient and verified all edwards points of history and exam, discussed case, and agree with decision making with Dr Kc When I enter the room, she is walking with a walker, slow and steady but no overt appearance of pain. She tells me quite adamantly that she is not leaving the hospital until Friday. We have a somewhat tense discussion about the risks and benefits of staying in the hospital longer than is medically necessary. I tried to explain my concern, although my impression is she felt like I was just trying to get her out the door, even though I clearly also did say that discharge was a mutual decision and I would not try to shoehorn her out the door. I also told her that being hostile to staff was not acceptable. Vitals noted, in general she is awake and alert generally in no physical distress, HEENT normocephalic atraumatic mucous membranes moist. Breathing unlabored no accessory muscle use good effort. Skin shows no rashes no pallor or icterus. Walking with a walker whenever I see her, shows no appearance of pain. Is able to settle down into bed on her own without a whole lot of appearance of discomfort either. Rib fractures with chest painpain seems reasonably controlled, overall appears stable for home. While I empathized with the patient's fear of going home, I discussed with her my major concerns of deconditioning or hospital-acquired infections should she stay in the hospital longerparticularly the deconditigarland luna given that she surprised me by doing well enough with therapy that she does not seem to need SNF or rehab, but the longer she stays in the hospital the more deconditioned she may get. Recurrent falls/weaknessPT/OT eval and treat. Did surprisingly well with PTdoes appear stable for home with therapy as an outpatient, but discussed with patient a prolonged hospital stay could easily lead to deconditioning. Otherwise as above Subjective Patient seen and evaluated at bedside this morning. No acute events overnight. Rib pain slightly improved from yesterday. Patient denies SOB, abdominal pain, nausea, vomiting, lightheadedness, dizziness, or other symptoms. Review of Systems Review of Systems: See HPI Physical Exam Physical Exam: Constitutional: well-appearing, no acute distress CV: regular rhythm, no murmur appreciated, extremities well-perfused Resp: CTABL, no wheezes/rales/rhonchi appreciated, no increased work of breathing MSK: chest wall examination deferred 2/2 rib fractures Skin: warm, dry, no rash appreciated Neuro: AOx4, no focal neurological deficits appreciated Results & Data Results & Data ([facility]) Vital Signs (Past 12 Hours) Vital Signs Temp Pulse Resp BP Pulse Ox 12/06/20 07:17 36.8 C 59 L 16 134/65 96 12/05/20 22:17 36.8 C 59 L 22 141/63 H 95 Resident Activity Tracking Resident Involvement: Resident Care Provided Care Provided: Adult Hospital Medicine (1) Atrial fibrillation Atrial fibrillation type: unspecified Qualified Code(s): I48.91 - Unspecified atrial fibrillation (2) Diabetes mellitus type 2, uncontrolled Glycemic state: with hyperglycemia Qualified Code(s): E11.65 - Type 2 diabetes mellitus with hyperglycemia
[2020-12-06] MEDS: ACETAMINOPHEN 500 MG TAB PO SCH ×3 (08:11→20:28)
[2020-12-06] MEDS: busPIRone 15 MG TAB PO SCH ×2 (08:12→20:28)
[2020-12-06] MEDS: glipiZIDE 5 MG TAB PO SCH ×2 (08:12→18:32)
[2020-12-06] MEDS: lisinopril 10 MG TAB PO SCH (08:13)
[2020-12-06] MEDS: DULoxetine HCL 60 MG CAP PO SCH (08:13)
[2020-12-06] MEDS: GABAPENTIN 300 MG CAP PO SCH ×2 (08:13→20:29)
[2020-12-06] MEDS: dilTIAZem ER 120 MG CAPCR PO SCH (08:14)
[2020-12-06] MEDS: PANTOprazole 40 MG TAB PO SCH (08:14)
[2020-12-06] MEDS: LIDOCAINE 5% 1 PATCH TD SCH (08:15)
[2020-12-06] MEDS: DICLOFENAC SOD 1% GEL 100 GM TUBE EXT SCH ×4 (08:15→20:30)
[2020-12-06] MEDS: RIVAROXABAN 20 MG TAB PO SCH (18:32)
--- NOTE | 2020-12-06 19:48 | Billing Data ---
Date of Service December 06, 2020 Coding Level of Care Code 58434 Subseq Hosp Care Lvl 2
[2020-12-06] MEDS: ATORVASTATIN 40 MG TAB PO SCH (20:29)
[2020-12-06] MEDS: INSULIN GLARGINE SOLOSTAR 100 UNITS/ML 3 ML PEN SQ SCH (20:32)
[2020-12-06] MEDS: MELATONIN 3 MG TAB PO PRN (22:24)
[2020-12-07] MEDS: LEVOTHYROXINE SODIUM 75 MCG TABLET PO SCH (05:38)
[2020-12-07] MEDS: oxyCODONE HCL IR 5 MG TAB (IMMEDIATE RELEASE) PO PRN ×5 (05:38→21:59)
[2020-12-07 06:43] LABS: BUN Creatinine Ratio 25.5 (10-20); Calcium 8.6 mg/dl (8.5-10.1); Est GFR (African American) 112.1 ml/min; Est GFR (Non-African American) 96.7 ml/min; Potassium 3.7 mmol/L (3.5-5.1)
[2020-12-07] MEDS: ACETAMINOPHEN 500 MG TAB PO SCH ×3 (08:02→20:54)
[2020-12-07] MEDS: glipiZIDE 5 MG TAB PO SCH ×2 (08:03→18:11)
[2020-12-07] MEDS: busPIRone 15 MG TAB PO SCH ×2 (08:03→20:53)
[2020-12-07] MEDS: dilTIAZem ER 120 MG CAPCR PO SCH (08:04)
[2020-12-07] MEDS: DULoxetine HCL 60 MG CAP PO SCH (08:04)
[2020-12-07] MEDS: lisinopril 10 MG TAB PO SCH (08:05)
[2020-12-07] MEDS: GABAPENTIN 300 MG CAP PO SCH ×2 (08:05→20:53)
[2020-12-07] MEDS: PANTOprazole 40 MG TAB PO SCH (08:06)
[2020-12-07] MEDS: LIDOCAINE 5% 1 PATCH TD SCH (08:06)
[2020-12-07] MEDS: DICLOFENAC SOD 1% GEL 100 GM TUBE EXT SCH ×4 (08:07→20:54)
--- NOTE | 2020-12-07 11:09 | Hospitalist Progress Note ---
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 fib on anticoagulation, obesity, hyperlipidemia, hypertension, hypothyroidism, and anxiety who presented for recurrent falls and found to have acute rib fracture x 2. Chest pain s/p falls Chest pain reproducible on exam, EKG without ischemic change, no elevated troponin - chest pain unlikely ACS in origin CT shows acute fractures of the lateral left sixth and seventh ribs without pneumothorax; small left pleural effusion noted Continue APAP 1000mg q8h, lidocaine patch prn, oxycodone 10mg PO q4h prn, incentive spirometry Recurrent falls Continue PT/OT Atrial fibrillation Atrial-paced rhythm on EKG; continue xarelto DM2 HbA1c 8.0% (10/27) Patient's home regimen held on admission Continue BSG checks, sliding-scale insulin, hypoglycemic protocol FEN: carb-consistent Code status: full code DVT ppx: xarelto Dispo: med/surg (2) Recurrent falls: (3) Atrial fibrillation: (4) Diabetes mellitus type 2, uncontrolled: Admission and Anticipated Discharge Date Admission Date: December 05, 2020 Supervising Physician Co-Signing Physician Notes I personally examined the patient and verified all edwards points of history and exam, discussed case, and agree with decision making with Dr Yamini Jean about the same. In discussion of her concern about going home with fall risk, but her not wanting to go anywhere to rehabI made the analogy that having high concern about falls but refusing to go anywhere where she would be safe/supervised and get aggressive therapy is essentially asking me to solve the problem with both hands tied behind my back. After we discussed this further, she does then agree to rehab or SNF. Discussed case with case management who noted rehab would be highly likely to be denied. SNF process started. Vitals noted, in general she is awake and alert generally in no physical distress, HEENT normocephalic atraumatic mucous membranes moist. Breathing unlabored no accessory muscle use good effort. Skin shows no rashes no pallor or icterus. No focal neuro deficits. Rib fractures with chest painpain seems reasonably controlled, overall appears stable for discharge, but given her fear of fall risk, after being faced with the very real prospect of going home, she then starts to reconsider rehab type placementin discussion with case management, SNF would be most realistic. Recurrent falls/weaknessPT/OT eval and treat. Will work on SNF for rehab if possible. Otherwise as above Subjective Patient seen and evaluated at bedside this morning. No acute events overnight. Rib pain continues gradual improvement compared to yesterday. Patient denies SOB, abdominal pain, nausea, vomiting, lightheadedness, dizziness, or other symptoms. Review of Systems Review of Systems: See HPI Physical Exam Physical Exam: Constitutional: well-appearing, no acute distress CV: regular rhythm, no murmur appreciated, extremities well-perfused Resp: CTABL, no wheezes/rales/rhonchi appreciated, no increased work of breathing Skin: warm, dry, no rash appreciated Neuro: AOx4, no focal neurological deficits appreciated Results & Data Results & Data ([facility]) Vital Signs (Past 12 Hours) Vital Signs Temp Pulse Resp BP Pulse Ox 12/07/20 07:32 36.6 C 54 L 16 124/64 97 Resident Activity Tracking Resident Involvement: Resident Care Provided Care Provided: Adult Hospital Medicine (1) Atrial fibrillation Atrial fibrillation type: unspecified Qualified Code(s): I48.91 - Unspecified atrial fibrillation (2) Diabetes mellitus type 2, uncontrolled Glycemic state: with hyperglycemia Qualified Code(s): E11.65 - Type 2 diabetes mellitus with hyperglycemia
[2020-12-07] MEDS: RIVAROXABAN 20 MG TAB PO SCH (18:11)
--- NOTE | 2020-12-07 19:33 | Billing Data ---
Date of Service December 07, 2020 Coding Level of Care Code 83028 Subseq Hosp Care Lvl 2
[2020-12-07] MEDS: ATORVASTATIN 40 MG TAB PO SCH (20:53)
[2020-12-07] MEDS: INSULIN GLARGINE SOLOSTAR 100 UNITS/ML 3 ML PEN SQ SCH (20:56)
[2020-12-07] MEDS: MELATONIN 3 MG TAB PO PRN (21:59)
[2020-12-08] MEDS: oxyCODONE HCL IR 5 MG TAB (IMMEDIATE RELEASE) PO PRN ×6 (02:03→22:02)
[2020-12-08] MEDS: LEVOTHYROXINE SODIUM 75 MCG TABLET PO SCH (05:58)
[2020-12-08] MEDS: glipiZIDE 5 MG TAB PO SCH ×2 (08:09→17:17)
[2020-12-08] MEDS: PANTOprazole 40 MG TAB PO SCH (08:09)
[2020-12-08] MEDS: dilTIAZem ER 120 MG CAPCR PO SCH (08:10)
[2020-12-08] MEDS: lisinopril 10 MG TAB PO SCH (08:10)
[2020-12-08] MEDS: ACETAMINOPHEN 500 MG TAB PO SCH ×3 (08:11→17:18)
[2020-12-08] MEDS: busPIRone 15 MG TAB PO SCH ×2 (08:12→20:07)
[2020-12-08] MEDS: GABAPENTIN 300 MG CAP PO SCH ×2 (08:12→20:09)
[2020-12-08] MEDS: DULoxetine HCL 60 MG CAP PO SCH (08:14)
[2020-12-08] MEDS: LIDOCAINE 5% 1 PATCH TD SCH (08:16)
[2020-12-08] MEDS: DICLOFENAC SOD 1% GEL 100 GM TUBE EXT SCH ×4 (08:16→20:07)
--- NOTE | 2020-12-08 09:21 | Hospitalist Progress Note ---
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 fib on anticoagulation, obesity, hyperlipidemia, hypertension, hypothyroidism, and anxiety who presented for recurrent falls and found to have acute rib fracture x 2. Chest pain s/p falls Chest pain reproducible on exam, EKG without ischemic change, no elevated troponin - chest pain unlikely ACS in origin CT shows acute fractures of the lateral left sixth and seventh ribs without pneumothorax; small left pleural effusion noted Continue APAP 1000mg q8h, lidocaine patch prn, oxycodone 10mg PO q4h prn, incentive spirometry, and given that pain is still uncontrolled with to many ups and downs, for a short-term trial of systemic NSAIDs with Toradol is reasonablecertainly with potential drug interactions kidney side effects etc., I would not want to do this for more than maybe a few days, but hopefully this could help blunt the pain a bit more for the short-term. Recurrent falls Continue PT/OTanticipate SNF with rehab emphasis Atrial fibrillation Rate controlled, anticoagulated DM2 HbA1c 8.0% (10/27) Patient's home regimen held on admission Continue BSG checks, continue sliding-scale insulin, hypoglycemic protocol FEN: carb-consistent Code status: full code DVT ppx: xarelto Dispo: Stable on MedSurg, right now intent will be dispo to SNF with rehab emphasis, ultimate disposition of home (2) Recurrent falls: (3) Atrial fibrillation: (4) Diabetes mellitus type 2, uncontrolled: Admission and Anticipated Discharge Date Admission Date: December 05, 2020 Subjective Still having chest painnotes that the oxycodone helps some, but it is too short lived as far as the relief. Still waiting on potential approval for SNF. She notes that she is having trouble sleeping due to the pain. Review of Systems Review of Systems: All systems reviewed & are unremarkable except as noted in HPI & below Physical Exam Physical Exam: In general she is awake and alert pleasant no distress. HEENT normocephalic atraumatic mucous membranes moist. Breathing unlabored no accessory muscle use good effort. Skin shows no rashes no pallor or icterus. Neuro without focal deficits. Results & Data Results & Data ([facility]) Vital Signs (Past 12 Hours) Vital Signs Temp Pulse Resp BP BP Pulse Ox 12/08/20 06:56 36.8 C 92 H 15 110/61 95 12/07/20 22:10 36.9 C 61 16 132/73 96 Resident Activity Tracking Resident Involvement: Resident Care Provided Care Provided: Adult Hospital Medicine (1) Atrial fibrillation Atrial fibrillation type: unspecified Qualified Code(s): I48.91 - Unspecified atrial fibrillation (2) Diabetes mellitus type 2, uncontrolled Glycemic state: with hyperglycemia Qualified Code(s): E11.65 - Type 2 diabetes mellitus with hyperglycemia
[2020-12-08] MEDS: RIVAROXABAN 20 MG TAB PO SCH (17:25)
--- NOTE | 2020-12-08 19:33 | Billing Data ---
Date of Service December 08, 2020 Coding Level of Care Code 01153 Subseq Hosp Care Lvl 2
[2020-12-08] MEDS: KETOROLAC TROMETHAMINE 15 MG/ML VIAL IV SCH (20:03)
[2020-12-08] MEDS: HEPARIN 100 UNIT/ML 5ML FLUSH FLUSH PRN (20:04)
[2020-12-08] MEDS: ATORVASTATIN 40 MG TAB PO SCH (20:07)
[2020-12-08] MEDS: INSULIN GLARGINE SOLOSTAR 100 UNITS/ML 3 ML PEN SQ SCH (21:35)
[2020-12-08] MEDS: MELATONIN 3 MG TAB PO PRN (22:03)
[2020-12-09] MEDS: KETOROLAC TROMETHAMINE 15 MG/ML VIAL IV SCH ×4 (01:22→19:50)
[2020-12-09] MEDS: HEPARIN 100 UNIT/ML 5ML FLUSH FLUSH PRN ×5 (01:23→19:51)
[2020-12-09] MEDS: oxyCODONE HCL IR 5 MG TAB (IMMEDIATE RELEASE) PO PRN ×5 (02:11→20:08)
[2020-12-09] MEDS: LEVOTHYROXINE SODIUM 75 MCG TABLET PO SCH (05:45)
[2020-12-09 06:34] LABS: Basophils # (auto) 0.02 K/uL (0-0.2); Basophils % (auto) 0.3 %; Eosinophils # (auto) 0.14 K/uL (0-0.5); Eosinophils % (auto) 2.1 %; Hematocrit (blood only) 30.5 % (37-47); Hemoglobin 9.7 g/dL (12.0-16.0); Lymphocytes # (auto) 1.54 K/uL (1.2-3.4); Lymphocytes % (auto) 22.8 %; Mean Corpuscular Hemoglobin 29.5 pg (25-34); Mean Corpuscular Hgb Conc 31.8 g/dL (32-36); Mean Corpuscular Volume 92.7 fL (80-100); Mean Platelet Volume 10.6 fL (7.4-10.4); Monocytes % (auto) 10.4 %; Neutrophils # (auto) 4.36 K/uL (1.4-6.5); Neutrophils % (auto) 64.4 %; Platelet Count 251 K/uL (130-400); RDW Coefficient of Variation 17.7 % (11.5-14.5); RDW Standard Deviation 60.7 fL (36.4-46.3); Red Blood Count 3.29 M/uL (4.2-5.4); White Blood Count 6.76 K/uL (4.8-10.8)
[2020-12-09 07:10] LABS: BUN Creatinine Ratio 31.8 (10-20); Calcium 8.5 mg/dl (8.5-10.1); Creatinine Clr Calc Pharmacy 96.4 ml/min; Est GFR (African American) 108.6 ml/min; Est GFR (Non-African American) 93.7 ml/min; Potassium 3.8 mmol/L (3.5-5.1)
[2020-12-09] MEDS: glipiZIDE 5 MG TAB PO SCH (08:35)
[2020-12-09] MEDS: DICLOFENAC SOD 1% GEL 100 GM TUBE EXT SCH ×4 (08:35→20:04)
[2020-12-09] MEDS: dilTIAZem ER 120 MG CAPCR PO SCH (08:35)
[2020-12-09] MEDS: PANTOprazole 40 MG TAB PO SCH (08:36)
[2020-12-09] MEDS: lisinopril 10 MG TAB PO SCH (08:36)
[2020-12-09] MEDS: GABAPENTIN 300 MG CAP PO SCH ×2 (08:36→20:05)
[2020-12-09] MEDS: busPIRone 15 MG TAB PO SCH ×2 (08:36→20:03)
[2020-12-09] MEDS: DULoxetine HCL 60 MG CAP PO SCH (08:36)
[2020-12-09] MEDS: ACETAMINOPHEN 500 MG TAB PO SCH ×3 (08:37→20:02)
[2020-12-09] MEDS: LIDOCAINE 5% 1 PATCH TD SCH (08:37)
--- NOTE | 2020-12-09 09:44 | Hospitalist Progress Note ---
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 fib on anticoagulation, obesity, hyperlipidemia, hypertension, hypothyroidism, and anxiety who presented for recurrent falls and found to have acute rib fracture x 2. Chest pain s/p falls Chest pain reproducible on exam, EKG without ischemic change, no elevated troponin - chest pain unlikely ACS in origin CT shows acute fractures of the lateral left sixth and seventh ribs without pneumothorax; small left pleural effusion noted Continue APAP 1000mg q8h, lidocaine patch prn, oxycodone 10mg PO q4h prn, incentive spirometry Recurrent falls Continue PT/OT Atrial fibrillation Atrial-paced rhythm on EKG; continue xarelto DM2 HbA1c 8.0% (10/27) Patient's home regimen held on admission Continue BSG checks, sliding-scale insulin, hypoglycemic protocol FEN: carb-consistent diet Code status: full code DVT ppx: xarelto Isolation: none Consults: none PT/OT: daily involvement Case management: working on SNF placement Dispo: med/surg (2) Recurrent falls: (3) Atrial fibrillation: (4) Diabetes mellitus type 2, uncontrolled: Admission and Anticipated Discharge Date Admission Date: December 05, 2020 Supervising Physician Co-Signing Physician Notes I personally examined the patient and verified all edwards points of history and exam, discussed case, and agree with decision making with Dr Yamini turk. Still waiting for SNF. Vitals noted, in general she is awake and alert generally in no physical distress, HEENT normocephalic atraumatic mucous membranes moist. Breathing unlabored no accessory muscle use good effort. Skin shows no rashes no pallor or icterus. No focal neuro deficits. Rib fractures with chest painpain seems reasonably controlled, overall appears stable for discharge, but given her fear of fall risk, having had multiple fallsplan is for SNF rehab emphasis. Recurrent falls/weaknessPT/OT eval and treat. Will work on SNF for rehab if possible. Otherwise as above Subjective Patient seen and evaluated at bedside this morning. No acute events overnight. Patient feels well today, pain persists but continues to improve gradually. No new complaints. Patient denies CP, SOB, abdominal pain, nausea, vomiting, lightheadedness, dizziness, and diarrhea. Review of Systems Review of Systems: See HPI Physical Exam Physical Exam: Constitutional: well-appearing, no acute distress CV: extremities well-perfused Resp: no increased work of breathing Neuro: AOx4, no focal neurological deficits appreciated Psych: cooperative, pleasant Results & Data Results & Data ([facility]) Vital Signs (Past 12 Hours) Vital Signs Temp Pulse Pulse Resp BP BP Pulse Ox 12/09/20 08:00 36.6 C 74 17 158/76 H 98 12/09/20 07:24 36.5 C 76 16 123/72 90 12/08/20 22:05 36.9 C 85 16 122/86 100 Resident Activity Tracking Resident Involvement: Resident Care Provided Care Provided: Adult Hospital Medicine (1) Atrial fibrillation Atrial fibrillation type: unspecified Qualified Code(s): I48.91 - Unspecified atrial fibrillation (2) Diabetes mellitus type 2, uncontrolled Glycemic state: with hyperglycemia Qualified Code(s): E11.65 - Type 2 diabetes mellitus with hyperglycemia
[2020-12-09] MEDS ORDERED: GLUCOSE 10 TABS/TUBE PO PRN (11:46)
[2020-12-09] MEDS ORDERED: DEXTROSE 50% 50 ML SYRINGE IV PRN (11:46)
[2020-12-09] MEDS ORDERED: GLUCOSE 40% GEL 15 GM TUBE PO PRN (11:46)
[2020-12-09] MEDS ORDERED: CARBOHYDRATES FOR HYPOGLYCEMIA PO PRN (11:46)
[2020-12-09] MEDS ORDERED: GLUCAGON FOR INJ 1 MG VIAL SQ PRN (11:46)
[2020-12-09] MEDS: INSULIN ASPART 100 UNITS/ML 3 ML PEN SC SCH ×3 (12:39→20:35)
[2020-12-09] MEDS: RIVAROXABAN 20 MG TAB PO SCH (17:53)
[2020-12-09] MEDS: ATORVASTATIN 40 MG TAB PO SCH (20:03)
[2020-12-09] MEDS: MELATONIN 3 MG TAB PO PRN (20:08)
[2020-12-09] MEDS: INSULIN GLARGINE SOLOSTAR 100 UNITS/ML 3 ML PEN SQ SCH (20:36)
[2020-12-10] MEDS: KETOROLAC TROMETHAMINE 15 MG/ML VIAL IV SCH ×4 (00:52→20:06)
[2020-12-10] MEDS: HEPARIN 100 UNIT/ML 5ML FLUSH FLUSH PRN ×4 (00:53→20:07)
[2020-12-10] MEDS: oxyCODONE HCL IR 5 MG TAB (IMMEDIATE RELEASE) PO PRN ×6 (00:53→22:28)
[2020-12-10] MEDS: LEVOTHYROXINE SODIUM 75 MCG TABLET PO SCH (06:04)
[2020-12-10 06:06] LABS: Hematocrit (blood only) 28.2 % (37-47); Hemoglobin 9.1 g/dL (12.0-16.0); Mean Corpuscular Hemoglobin 29.7 pg (25-34); Mean Corpuscular Hgb Conc 32.3 g/dL (32-36); Mean Corpuscular Volume 92.2 fL (80-100); Mean Platelet Volume 10.2 fL (7.4-10.4); Platelet Count 230 K/uL (130-400); RDW Coefficient of Variation 17.8 % (11.5-14.5); RDW Standard Deviation 59.7 fL (36.4-46.3); Red Blood Count 3.06 M/uL (4.2-5.4); White Blood Count 5.94 K/uL (4.8-10.8)
[2020-12-10] MEDS: ACETAMINOPHEN 500 MG TAB PO SCH ×3 (08:49→20:17)
[2020-12-10] MEDS: busPIRone 15 MG TAB PO SCH ×2 (08:49→20:17)
[2020-12-10] MEDS: DICLOFENAC SOD 1% GEL 100 GM TUBE EXT SCH ×4 (08:50→20:18)
[2020-12-10] MEDS: DULoxetine HCL 60 MG CAP PO SCH (08:51)
[2020-12-10] MEDS: dilTIAZem ER 120 MG CAPCR PO SCH (08:51)
[2020-12-10] MEDS: GABAPENTIN 300 MG CAP PO SCH ×2 (08:51→20:18)
[2020-12-10] MEDS: LIDOCAINE 5% 1 PATCH TD SCH (08:52)
[2020-12-10] MEDS: lisinopril 10 MG TAB PO SCH (08:52)
[2020-12-10] MEDS: PANTOprazole 40 MG TAB PO SCH (08:53)
[2020-12-10] MEDS: INSULIN ASPART 100 UNITS/ML 3 ML PEN SC SCH ×4 (09:09→20:32)
--- NOTE | 2020-12-10 13:01 | Hospitalist Progress Note ---
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 fib on anticoagulation, obesity, hyperlipidemia, hypertension, hypothyroidism, and anxiety who was admitted to [facility] on 12/03 for acute rib fracture x 2 s/p mechanical fall. Rib fractures Chest pain reproducible on exam, EKG without ischemic change, Troponin WNL, CT shows acute fractures of the lateral left sixth and seventh ribs without pneumothorax; small left pleural effusion noted --> rib fractures following mechanical fall. - Continue APAP 1000mg q8h, Toradol 15mg Q6H, lidocaine patch PRN, oxycodone 10mg PO Q4H PRN - Continue incentive spirometry Recurrent falls - Continue PT/OT Atrial fibrillation - continue home Xarelto 20mg PO daily and Diltiazem 120mg PO QAM T2DM - HbA1c 8.0% (10/27) - Continue SSI + Lantus Hypothyroidism - continue home Synthroid HTN - continue home Lisinopril 10mg PO QAM HLD - continue Atorvastatin 40mg PO QHS Anxiety - continue home Cymbalta/Buspar GERD - continue home Protonix FEN/GI: carb-consistent diet Code status: full code DVT ppx: home xarelto Dispo: med/surg, CM to assist with SNF placement (2) Recurrent falls: (3) Atrial fibrillation: (4) Diabetes mellitus type 2, uncontrolled: Admission and Anticipated Discharge Date Admission Date: December 05, 2020 Supervising Physician Co-Signing Physician Notes I personally examined the patient and verified all edwards points of history and exam, discussed case, and agree with decision making with Dr Tammi White helped but wonders if she could get it more. no stomach pain no nausea Vitals noted, in general she is awake and alert generally in no physical distress, HEENT normocephalic atraumatic mucous membranes moist. Breathing unlabored no accessory muscle use good effort. Skin shows no rashes no pallor or icterus. No focal neuro deficits. Rib fractures with chest painpain seems reasonably controlled (will increase toradol but now that we've given scheduled for a day - change to prn; Cr has been good and no sx PUD), overall appears stable for discharge, but given her fear of fall risk, having had multiple fallsplan is for SNF rehab emphasis. Recurrent falls/weaknessPT/OT eval and treat. Will work on SNF for rehab if possible. hopefully will hear from insurance tomorrow Otherwise as above Subjective Continues to ask for Oxycodone 10mg PO Q4-6H for rib-related pain. This morning the patient reports mild improvement in breathing and rib pain. Patient denies rib/chest pain with regular breaths. Denies fever/chills, palpitations, SOB, N/V, abdominal pain, rash. Review of Systems Review of Systems: All systems reviewed & are unremarkable except as noted in Subjective Physical Exam Physical Exam: General: A&Ox3. NAD. Cooperative. Obese. HEENT: Atraumatic, normocephalic. Pulm: CTAB A&P. -wheezes, -rales, -rhonchi. Symmetrical chest rise. No increase work of breathing. No respiratory distress. Cardiac: RRR, -mrg. Radial pulses intact and symmetrical. No LE edema. Abdominal: soft, non-tender, non-distended, BS x 4 Results & Data Results & Data ([facility]) Vital Signs (Past 12 Hours) Vital Signs Temp Pulse Resp BP BP Pulse Ox 12/10/20 11:55 36.6 C 64 19 158/64 H 95 12/10/20 08:24 36.5 C 61 12 119/63 95 Resident Activity Tracking Resident Involvement: Resident Care Provided Care Provided: Adult Hospital Medicine (1) Atrial fibrillation Atrial fibrillation type: unspecified Qualified Code(s): I48.91 - Unspecified atrial fibrillation (2) Diabetes mellitus type 2, uncontrolled Glycemic state: with hyperglycemia Qualified Code(s): E11.65 - Type 2 diabetes mellitus with hyperglycemia
[2020-12-10] MEDS: RIVAROXABAN 20 MG TAB PO SCH (17:31)
[2020-12-10] MEDS: ATORVASTATIN 40 MG TAB PO SCH (20:17)
[2020-12-10] MEDS: MELATONIN 3 MG TAB PO PRN (20:17)
[2020-12-10] MEDS: INSULIN GLARGINE SOLOSTAR 100 UNITS/ML 3 ML PEN SQ SCH (20:20)
--- NOTE | 2020-12-10 20:40 | Billing Data ---
Date of Service December 10, 2020 Coding Level of Care Code 96936 Subseq Hosp Care Lvl 2
[2020-12-11] MEDS: oxyCODONE HCL IR 5 MG TAB (IMMEDIATE RELEASE) PO PRN ×5 (04:26→21:46)
[2020-12-11] MEDS: LEVOTHYROXINE SODIUM 75 MCG TABLET PO SCH (04:26)
[2020-12-11] MEDS: HEPARIN 100 UNIT/ML 5ML FLUSH FLUSH PRN ×2 (05:43→12:18)
[2020-12-11 05:59] LABS: Basophils # (auto) 0.01 K/uL (0-0.2); Basophils % (auto) 0.2 %; Eosinophils # (auto) 0.13 K/uL (0-0.5); Eosinophils % (auto) 2.2 %; Hemoglobin 8.9 g/dL (12.0-16.0); Immature Granulocytes # (auto) 0.01 K/uL (0.00-0.02); Immature Granulocytes % (auto) 0.2 %; Lymphocytes # (auto) 1.16 K/uL (1.2-3.4); Lymphocytes % (auto) 19.9 %; Mean Corpuscular Hemoglobin 29.4 pg (25-34); Mean Corpuscular Hgb Conc 31.8 g/dL (32-36); Mean Corpuscular Volume 92.4 fL (80-100); Mean Platelet Volume 10.2 fL (7.4-10.4); Monocytes # (auto) 0.67 K/uL (0.11-0.59); Monocytes % (auto) 11.5 %; Neutrophils # (auto) 3.85 K/uL (1.4-6.5); Platelet Count 220 K/uL (130-400); RDW Coefficient of Variation 17.8 % (11.5-14.5); Red Blood Count 3.03 M/uL (4.2-5.4); White Blood Count 5.83 K/uL (4.8-10.8)
[2020-12-11 06:25] LABS: Calcium 8.6 mg/dl (8.5-10.1); Est GFR (African American) 107.3 ml/min; Est GFR (Non-African American) 92.6 ml/min; Potassium 4.3 mmol/L (3.5-5.1)
[2020-12-11] MEDS: INSULIN ASPART 100 UNITS/ML 3 ML PEN SC SCH ×4 (08:58→20:24)
[2020-12-11] MEDS: DULoxetine HCL 60 MG CAP PO SCH (09:01)
[2020-12-11] MEDS: PANTOprazole 40 MG TAB PO SCH (09:02)
[2020-12-11] MEDS: dilTIAZem ER 120 MG CAPCR PO SCH (09:02)
[2020-12-11] MEDS: GABAPENTIN 300 MG CAP PO SCH ×2 (09:03→20:09)
[2020-12-11] MEDS: lisinopril 10 MG TAB PO SCH (09:03)
[2020-12-11] MEDS: busPIRone 15 MG TAB PO SCH ×2 (09:03→20:09)
[2020-12-11] MEDS: ACETAMINOPHEN 500 MG TAB PO SCH ×3 (09:04→20:08)
[2020-12-11] MEDS: DICLOFENAC SOD 1% GEL 100 GM TUBE EXT SCH ×4 (09:06→20:09)
[2020-12-11] MEDS: LIDOCAINE 5% 1 PATCH TD SCH (09:07)
[2020-12-11] MEDS: KETOROLAC TROMETHAMINE 15 MG/ML VIAL IV PRN (12:14)
--- NOTE | 2020-12-11 12:52 | Hospitalist Progress Note ---
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 fib on anticoagulation, obesity, hyperlipidemia, hypertension, hypothyroidism, and anxiety who was admitted to [facility] on 12/03 for acute rib fracture x 2 s/p mechanical fall. Rib fractures Chest pain reproducible on exam, EKG without ischemic change, Troponin WNL, CT shows acute fractures of the lateral left sixth and seventh ribs without pneumothorax; small left pleural effusion noted --> rib fractures following mechanical fall. - Continue APAP 1000mg q8h, lidocaine patch PRN, oxycodone 10mg PO Q4H PRN, Toradol 15mg IV Q6H PRN. avoid oversedation from pain meds - Continue incentive spirometry Recurrent falls - sec to deconditioning. Continue PT/OT - rehab placement Atrial fibrillation - continue home Xarelto 20mg PO daily and Diltiazem 120mg PO QAM T2DM - HbA1c 8.0% (10/27) - Continue SSI + Lantus Hypothyroidism - continue home Synthroid HTN - continue home Lisinopril 10mg PO QAM HLD - continue Atorvastatin 40mg PO QHS Anxiety - continue home Cymbalta/Buspar GERD - continue home Protonix FEN/GI: carb-consistent diet Code status: full code DVT ppx: home xarelto Dispo: med/surg, CM to assist with SNF placement (2) Recurrent falls: (3) Atrial fibrillation: (4) Diabetes mellitus type 2, uncontrolled: Admission and Anticipated Discharge Date Admission Date: December 05, 2020 Supervising Physician Co-Signing Physician Notes Resident Physician Supervision Note: I independently interviewed and examined the patient and verified the edwards history and physical, reviewed labs and image studies and agree with resident Dr. Cadena findings and care plan. Subjective Continues to ask for Oxycodone 10mg PO Q4-6H for rib-related pain. This morning the patient reports mild improvement in breathing and rib pain. Patient denies rib/chest pain with regular breaths. Denies fever/chills, palpitations, SOB, N/V, abdominal pain, rash. Review of Systems Review of Systems: All systems reviewed & are unremarkable except as noted in Subjective Physical Exam Physical Exam: General: A&Ox3. NAD. Cooperative. Obese. HEENT: Atraumatic, normocephalic. Pulm: CTAB A&P. -wheezes, -rales, -rhonchi. Symmetrical chest rise. No increase work of breathing. No respiratory distress. Cardiac: RRR, -mrg. Radial pulses intact and symmetrical. No LE edema. Abdominal: soft, non-tender, non-distended, BS x 4 Results & Data Results & Data ([facility]) Vital Signs (Past 12 Hours) Vital Signs Temp Pulse Resp BP Pulse Ox 12/11/20 07:51 36.8 C 89 16 166/76 H 93 Resident Activity Tracking Resident Involvement: Resident Care Provided Care Provided: Adult Hospital Medicine (1) Atrial fibrillation Atrial fibrillation type: unspecified Qualified Code(s): I48.91 - Unspecified atrial fibrillation (2) Diabetes mellitus type 2, uncontrolled Glycemic state: with hyperglycemia Qualified Code(s): E11.65 - Type 2 diabetes mellitus with hyperglycemia
[2020-12-11] MEDS: RIVAROXABAN 20 MG TAB PO SCH (17:36)
[2020-12-11] MEDS: ATORVASTATIN 40 MG TAB PO SCH (20:09)
[2020-12-11] MEDS: traMADol HCL 50 MG TABLET PO PRN (20:19)
[2020-12-11] MEDS: MELATONIN 3 MG TAB PO PRN (20:19)
[2020-12-11] MEDS: INSULIN GLARGINE SOLOSTAR 100 UNITS/ML 3 ML PEN SQ SCH (20:24)
[2020-12-12] MEDS: oxyCODONE HCL IR 5 MG TAB (IMMEDIATE RELEASE) PO PRN ×5 (01:55→22:05)
[2020-12-12] MEDS: LEVOTHYROXINE SODIUM 75 MCG TABLET PO SCH (05:06)
[2020-12-12] MEDS: traMADol HCL 50 MG TABLET PO PRN (05:06)
[2020-12-12] MEDS: HEPARIN 100 UNIT/ML 5ML FLUSH FLUSH PRN ×4 (05:45→21:06)
[2020-12-12 06:31] LABS: Basophils # (auto) 0.01 K/uL (0-0.2); Basophils % (auto) 0.2 %; Eosinophils % (auto) 1.8 %; Hematocrit (blood only) 29.3 % (37-47); Hemoglobin 9.3 g/dL (12.0-16.0); Immature Granulocytes # (auto) 0.01 K/uL (0.00-0.02); Immature Granulocytes % (auto) 0.2 %; Lymphocytes # (auto) 1.35 K/uL (1.2-3.4); Lymphocytes % (auto) 24.1 %; Mean Corpuscular Hemoglobin 29.4 pg (25-34); Mean Corpuscular Hgb Conc 31.7 g/dL (32-36); Mean Corpuscular Volume 92.7 fL (80-100); Mean Platelet Volume 10.5 fL (7.4-10.4); Monocytes # (auto) 0.72 K/uL (0.11-0.59); Monocytes % (auto) 12.9 %; Neutrophils # (auto) 3.41 K/uL (1.4-6.5); Neutrophils % (auto) 60.8 %; Platelet Count 242 K/uL (130-400); RDW Coefficient of Variation 17.8 % (11.5-14.5); RDW Standard Deviation 60.3 fL (36.4-46.3); Red Blood Count 3.16 M/uL (4.2-5.4)
[2020-12-12 07:08] LABS: BUN Creatinine Ratio 34.4 (10-20); Calcium 8.7 mg/dl (8.5-10.1); Creatinine Clr Calc Pharmacy 112.8 ml/min; Est GFR (African American) 114.4 ml/min; Est GFR (Non-African American) 98.7 ml/min; Potassium 3.9 mmol/L (3.5-5.1)
[2020-12-12] MEDS: lisinopril 10 MG TAB PO SCH (08:09)
[2020-12-12] MEDS: busPIRone 15 MG TAB PO SCH ×2 (08:09→21:10)
[2020-12-12] MEDS: ACETAMINOPHEN 500 MG TAB PO SCH ×3 (08:10→21:09)
[2020-12-12] MEDS: GABAPENTIN 300 MG CAP PO SCH ×2 (08:10→21:10)
[2020-12-12] MEDS: DICLOFENAC SOD 1% GEL 100 GM TUBE EXT SCH ×4 (08:10→21:10)
[2020-12-12] MEDS: dilTIAZem ER 120 MG CAPCR PO SCH (08:10)
[2020-12-12] MEDS: LIDOCAINE 5% 1 PATCH TD SCH (08:10)
[2020-12-12] MEDS: DULoxetine HCL 60 MG CAP PO SCH (08:10)
[2020-12-12] MEDS: KETOROLAC TROMETHAMINE 15 MG/ML VIAL IV PRN ×3 (08:20→21:06)
[2020-12-12] MEDS: PANTOprazole 40 MG TAB PO SCH (09:07)
[2020-12-12] MEDS: INSULIN ASPART 100 UNITS/ML 3 ML PEN SC SCH ×4 (09:09→21:12)
--- NOTE | 2020-12-12 12:34 | Hospitalist Progress Note ---
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 fib on anticoagulation, obesity, hyperlipidemia, hypertension, hypothyroidism, and anxiety who was admitted to [facility] on 12/03 for acute rib fracture x 2 s/p mechanical fall. Rib fractures Chest pain reproducible on exam, EKG without ischemic change, Troponin WNL, CT shows acute fractures of the lateral left sixth and seventh ribs without pneumothorax; small left pleural effusion noted --> rib fractures following mechanical fall. - Continue APAP 1000mg q8h, lidocaine patch PRN, oxycodone 10mg PO Q4H PRN, Toradol 15mg IV Q6H PRN. avoid oversedation from pain meds - Continue incentive spirometry Recurrent falls - 2/2 deconditioning. Continue PT/OT - rehab placement Atrial fibrillation - continue home Xarelto 20mg PO daily and Diltiazem 120mg PO QAM T2DM - HbA1c 8.0% (10/27) - Continue SSI + Lantus Hypothyroidism - continue home Synthroid HTN - continue home Lisinopril 10mg PO QAM HLD - continue Atorvastatin 40mg PO QHS Anxiety - continue home Cymbalta/Buspar GERD - continue home Protonix FEN/GI: carb-consistent diet Code status: full code DVT ppx: home xarelto Dispo: med/surg, CM to assist with SNF placement - will submit insurance auth today (2) Recurrent falls: (3) Atrial fibrillation: (4) Diabetes mellitus type 2, uncontrolled: Admission and Anticipated Discharge Date Admission Date: December 05, 2020 Supervising Physician Co-Signing Physician Notes Resident Physician Supervision Note: I independently interviewed and examined the patient and verified the edwards history and physical, reviewed labs and image studies and agree with resident Dr. Cadena findings and care plan. Subjective Continues to ask for Oxycodone 10mg PO Q4-6H for rib-related pain. This morning the patient reports mild improvement in breathing and rib pain. Patient denies rib/chest pain with regular breaths. Denies fever/chills, palpitations, SOB, N/V, abdominal pain, rash. Review of Systems Review of Systems: All systems reviewed & are unremarkable except as noted in Subjective Physical Exam Physical Exam: General: A&Ox3. NAD. Cooperative. Obese. HEENT: Atraumatic, normocephalic. Pulm: CTAB A&P. -wheezes, -rales, -rhonchi. Symmetrical chest rise. No increase work of breathing. No respiratory distress. Cardiac: RRR, -mrg. Radial pulses intact and symmetrical. No LE edema. Abdominal: soft, non-tender, non-distended, BS x 4 Skin: warm, dry, no rash Results & Data Results & Data ([facility]) Vital Signs (Past 12 Hours) Vital Signs Temp Pulse Resp BP Pulse Ox 12/12/20 07:39 36.4 C L 67 18 148/63 H 94 Resident Activity Tracking Resident Involvement: Resident Care Provided Care Provided: Adult Hospital Medicine (1) Atrial fibrillation Atrial fibrillation type: unspecified Qualified Code(s): I48.91 - Unspecified atrial fibrillation (2) Diabetes mellitus type 2, uncontrolled Glycemic state: with hyperglycemia Qualified Code(s): E11.65 - Type 2 diabetes mellitus with hyperglycemia
[2020-12-12] MEDS: RIVAROXABAN 20 MG TAB PO SCH (18:07)
[2020-12-12] MEDS: MELATONIN 3 MG TAB PO PRN (21:09)
[2020-12-12] MEDS: ATORVASTATIN 40 MG TAB PO SCH (21:10)
[2020-12-12] MEDS: INSULIN GLARGINE SOLOSTAR 100 UNITS/ML 3 ML PEN SQ SCH (21:31)
[2020-12-13] MEDS: oxyCODONE HCL IR 5 MG TAB (IMMEDIATE RELEASE) PO PRN ×6 (02:05→22:29)
[2020-12-13] MEDS: LEVOTHYROXINE SODIUM 75 MCG TABLET PO SCH (06:06)
[2020-12-13] MEDS: LIDOCAINE 5% 1 PATCH TD SCH (07:58)
[2020-12-13] MEDS: DULoxetine HCL 60 MG CAP PO SCH (07:59)
[2020-12-13] MEDS: busPIRone 15 MG TAB PO SCH ×2 (07:59→21:15)
[2020-12-13] MEDS: dilTIAZem ER 120 MG CAPCR PO SCH (07:59)
[2020-12-13] MEDS: PANTOprazole 40 MG TAB PO SCH (08:00)
[2020-12-13] MEDS: lisinopril 10 MG TAB PO SCH (08:00)
[2020-12-13] MEDS: GABAPENTIN 300 MG CAP PO SCH ×2 (08:01→21:15)
[2020-12-13] MEDS: ACETAMINOPHEN 500 MG TAB PO SCH ×3 (08:01→21:15)
[2020-12-13] MEDS: DICLOFENAC SOD 1% GEL 100 GM TUBE EXT SCH ×4 (08:02→21:17)
[2020-12-13] MEDS: KETOROLAC TROMETHAMINE 15 MG/ML VIAL IV PRN (08:17)
[2020-12-13] MEDS: HEPARIN 100 UNIT/ML 5ML FLUSH FLUSH PRN (08:18)
[2020-12-13 08:29] LABS: Basophils # (auto) 0.01 K/uL (0-0.2); Basophils % (auto) 0.1 %; Eosinophils # (auto) 0.14 K/uL (0-0.5); Eosinophils % (auto) 1.7 %; Hematocrit (blood only) 31.9 % (37-47); Hemoglobin 10.1 g/dL (12.0-16.0); Immature Granulocytes # (auto) 0.01 K/uL (0.00-0.02); Immature Granulocytes % (auto) 0.1 %; Lymphocytes # (auto) 1.74 K/uL (1.2-3.4); Lymphocytes % (auto) 21.7 %; Mean Corpuscular Hemoglobin 29.5 pg (25-34); Mean Corpuscular Hgb Conc 31.7 g/dL (32-36); Mean Corpuscular Volume 93.3 fL (80-100); Mean Platelet Volume 10.5 fL (7.4-10.4); Monocytes # (auto) 0.81 K/uL (0.11-0.59); Monocytes % (auto) 10.1 %; Neutrophils # (auto) 5.32 K/uL (1.4-6.5); Neutrophils % (auto) 66.3 %; Platelet Count 298 K/uL (130-400); RDW Coefficient of Variation 17.8 % (11.5-14.5); RDW Standard Deviation 60.5 fL (36.4-46.3); Red Blood Count 3.42 M/uL (4.2-5.4); White Blood Count 8.03 K/uL (4.8-10.8)
[2020-12-13] MEDS: INSULIN ASPART 100 UNITS/ML 3 ML PEN SC SCH ×4 (09:13→21:18)
[2020-12-13 09:15] LABS: BUN Creatinine Ratio 27.2 (10-20); Calcium 8.8 mg/dl (8.5-10.1); Creatinine Clr Calc Pharmacy 86.9 ml/min; Est GFR (Non-African American) 90.6 ml/min; Potassium 4.3 mmol/L (3.5-5.1)
--- NOTE | 2020-12-13 10:49 | Hospitalist Progress Note ---
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 fib on anticoagulation, obesity, hyperlipidemia, hypertension, hypothyroidism, and anxiety who was admitted to [facility] on 12/03 for acute rib fracture x 2 s/p mechanical fall. Rib fractures Chest pain reproducible on exam, EKG without ischemic change, Troponin WNL, CT shows acute fractures of the lateral left sixth and seventh ribs without pneumothorax; small left pleural effusion noted --> rib fractures following mechanical fall. - Continue APAP 1000mg q8h, lidocaine patch PRN, oxycodone 10mg PO Q4H PRN, Toradol 15mg IV Q6H PRN. no concern of oversedation from pain meds - Continue incentive spirometry Recurrent falls - 2/2 deconditioning. Continue PT/OT - rehab placement Atrial fibrillation - continue home Xarelto 20mg PO daily and Diltiazem 120mg PO QAM T2DM - HbA1c 8.0% (10/27) - Continue SSI + Lantus Hypothyroidism - continue home Synthroid HTN - continue home Lisinopril 10mg PO QAM HLD - continue Atorvastatin 40mg PO QHS Anxiety - continue home Cymbalta/Buspar GERD - continue home Protonix FEN/GI: carb-consistent diet Code status: full code DVT ppx: home xarelto Dispo: med/surg, CM to assist with SNF placement - insurance auth pending (2) Recurrent falls: (3) Atrial fibrillation: (4) Diabetes mellitus type 2, uncontrolled: Admission and Anticipated Discharge Date Admission Date: December 05, 2020 Supervising Physician Co-Signing Physician Notes Resident Physician Supervision Note: I independently interviewed and examined the patient and verified the edwards history and physical, reviewed labs and image studies and agree with resident Dr. Cadena findings and care plan. Subjective Continues to ask for Oxycodone 10mg PO Q4-6H as well as Toradol 15mg IV x1 for rib-related pain. This morning the patient reports stable breathing and controlled rib pain with PRNs. Patient denies rib/chest pain with regular breaths. Denies fever/chills, palpitations, SOB, N/V, abdominal pain, rash. Review of Systems Review of Systems: All systems reviewed & are unremarkable except as noted in Subjective Physical Exam Physical Exam: General: A&Ox3. NAD. Cooperative. Obese. HEENT: Atraumatic, normocephalic. Pulm: CTAB A&P. -wheezes, -rales, -rhonchi. Symmetrical chest rise. No increase work of breathing. No respiratory distress. Cardiac: RRR, -mrg. Radial pulses intact and symmetrical. No LE edema. Abdominal: soft, non-tender, non-distended, BS x 4 Skin: warm, dry, no rash Results & Data Results & Data ([facility]) Vital Signs (Past 12 Hours) Vital Signs Temp Pulse Resp BP Pulse Ox 12/13/20 07:06 36.7 C 63 18 145/74 H 95 Resident Activity Tracking Resident Involvement: Resident Care Provided Care Provided: Adult Hospital Medicine (1) Atrial fibrillation Atrial fibrillation type: unspecified Qualified Code(s): I48.91 - Unspecified atrial fibrillation (2) Diabetes mellitus type 2, uncontrolled Glycemic state: with hyperglycemia Qualified Code(s): E11.65 - Type 2 diabetes mellitus with hyperglycemia
[2020-12-13] MEDS: RIVAROXABAN 20 MG TAB PO SCH (18:11)
[2020-12-13] MEDS: traMADol HCL 50 MG TABLET PO PRN (19:47)
[2020-12-13] MEDS: ATORVASTATIN 40 MG TAB PO SCH (21:15)
[2020-12-13] MEDS: INSULIN GLARGINE SOLOSTAR 100 UNITS/ML 3 ML PEN SQ SCH (21:18)
[2020-12-13] MEDS: MELATONIN 3 MG TAB PO PRN (22:31)
[2020-12-14] MEDS: oxyCODONE HCL IR 5 MG TAB (IMMEDIATE RELEASE) PO PRN ×3 (02:44→13:41)
[2020-12-14 06:24] LABS: Basophils # (auto) 0.01 K/uL (0-0.2); Basophils % (auto) 0.2 %; Eosinophils # (auto) 0.11 K/uL (0-0.5); Eosinophils % (auto) 1.8 %; Hematocrit (blood only) 28.6 % (37-47); Hemoglobin 9.2 g/dL (12.0-16.0); Immature Granulocytes # (auto) 0.01 K/uL (0.00-0.02); Immature Granulocytes % (auto) 0.2 %; Lymphocytes # (auto) 1.27 K/uL (1.2-3.4); Lymphocytes % (auto) 20.7 %; Mean Corpuscular Hemoglobin 29.8 pg (25-34); Mean Corpuscular Hgb Conc 32.2 g/dL (32-36); Mean Corpuscular Volume 92.6 fL (80-100); Mean Platelet Volume 10.7 fL (7.4-10.4); Monocytes # (auto) 0.78 K/uL (0.11-0.59); Monocytes % (auto) 12.7 %; Neutrophils # (auto) 3.97 K/uL (1.4-6.5); Neutrophils % (auto) 64.4 %; Platelet Count 255 K/uL (130-400); RDW Coefficient of Variation 17.6 % (11.5-14.5); RDW Standard Deviation 59.1 fL (36.4-46.3); Red Blood Count 3.09 M/uL (4.2-5.4); White Blood Count 6.15 K/uL (4.8-10.8)
[2020-12-14] MEDS: LEVOTHYROXINE SODIUM 75 MCG TABLET PO SCH (06:44)
[2020-12-14 06:51] LABS: BUN Creatinine Ratio 30.3 (10-20); Calcium 8.7 mg/dl (8.5-10.1); Creatinine Clr Calc Pharmacy 112.8 ml/min; Est GFR (African American) 114.4 ml/min; Est GFR (Non-African American) 98.7 ml/min; Potassium 4.1 mmol/L (3.5-5.1)
[2020-12-14] MEDS: busPIRone 15 MG TAB PO SCH (08:39)
[2020-12-14] MEDS: LIDOCAINE 5% 1 PATCH TD SCH (08:39)
[2020-12-14] MEDS: GABAPENTIN 300 MG CAP PO SCH (08:40)
[2020-12-14] MEDS: PANTOprazole 40 MG TAB PO SCH (08:40)
[2020-12-14] MEDS: DICLOFENAC SOD 1% GEL 100 GM TUBE EXT SCH (08:40)
[2020-12-14] MEDS: ACETAMINOPHEN 500 MG TAB PO SCH (08:40)
[2020-12-14] MEDS: lisinopril 10 MG TAB PO SCH (08:40)
[2020-12-14] MEDS: DULoxetine HCL 60 MG CAP PO SCH (08:40)
[2020-12-14] MEDS: dilTIAZem ER 120 MG CAPCR PO SCH (08:40)
[2020-12-14] MEDS: INSULIN ASPART 100 UNITS/ML 3 ML PEN SC SCH ×2 (09:30→12:58)
[2020-12-14] MEDS ORDERED: NAPROXEN 250 MG TAB PO SCH (10:45)
--- NOTE | 2020-12-14 11:00 | Discharge Summary ---
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 fib on anticoagulation, obesity, per lipidemia, hypertension, hypothyroidism and anxiety; who presented to the emergency department for concerns of continued falls with fall at home approximately 1 week ago. Over the last several days she has continued to have left-sided rib/chest pain. Notes that it is worsening with twisting, turning, or any movement. Decided to present to the ER after she noticed that this pain was present even with breathing. In ED continued to have persistent intermittent chest pain/spasms that seemingly improved with some rest and slow deep breaths. However, would ultimately return cyclically. 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 Admission Exam Per Admitting Provider Constitutional: WD/WN, vitals as above Eyes: PERRL, conjunctivae normal, anicteric sclerae Respiratory: normal respiratory effort, lungs clear to auscultation Auscultation: no crackles, no rales, no rhonchi and no wheezes Reproducible chest wall tenderness over left anterior axillary line Cardiovascular: Rate/Rhythm: regular rate and regular rhythm Heart Sounds: no gallop, no murmur and no cardiac rub Vessels: normal peripheral pulses; no JVD Extremities: no edema Gastrointestinal (Abdomen): Inspection/Auscultation: normal bowel sounds; abdomen not distended Percussion/Palpation: abdomen soft; abdomen nontender and no guarding Musculoskeletal: no cyanosis or clubbing, extremities motor strength 5/5 Skin: no rashes, warm and dry Neurologic: PERRL, EOMI, accommodation nl, no face palsy, no dysarthria CN's II-XI intact bilaterally and moves all extremities Psychiatric: Orientation: alert and oriented x 3 Principal Diagnosis Left 6th and 7th Rib Fractures Discharge Exam General: A&Ox3. NAD. Cooperative. Obese. HEENT: Atraumatic, normocephalic. Pulm: CTAB A&P. -wheezes, -rales, -rhonchi. Symmetrical chest rise. No increase work of breathing. No respiratory distress. Cardiac: RRR, -mrg. Radial pulses intact and symmetrical. No LE edema. 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 fib on anticoagulation, obesity, hyperlipidemia, hypertension, hypothyroidism, and anxiety who was admitted to [facility] on 12/03 for acute rib fracture x 2 s/p mechanical fall. Rib fractures Chest pain reproducible on exam, EKG without ischemic change, Troponin WNL, CT shows acute fractures of the lateral left sixth and seventh ribs without pneumothorax; small left pleural effusion noted --> rib fractures following mechanical fall. - Patient has been treated with APAP 1000mg q8h, lidocaine patch PRN, oxycodone 10mg PO Q4H PRN, Toradol 15mg IV Q6H PRN throughout course of hospitalization - She was transitioned from Toradol IV to Tramadol 50mg PO TID PRN on 12/13 - After discharge, can continue with APAP, Lidocaine Patch, Oxycodone and Tramadol PRN at the doses/frequency stated above - Naproxen started on 12/14 - can continue with 500mg PO BID x2 days for additional pain control - patient already on Protonix 40mg PO QAM (GI ppx) - Continue incentive spirometry Recurrent falls - 2/2 deconditioning. [facility] Atrial fibrillation - continue home Xarelto 20mg PO daily and Diltiazem 120mg PO QAM T2DM - HbA1c 8.0% (10/27) - Continue SSI + Lantus while hospitalized - continue home meds when discharged home Hypothyroidism - continue home Synthroid HTN - continue home Lisinopril 10mg PO QAM HLD - continue Atorvastatin 40mg PO QHS Anxiety - continue home Cymbalta/Buspar GERD - continue home Protonix (2) Recurrent falls: (3) Atrial fibrillation: (4) Diabetes mellitus type 2, uncontrolled: Total Time Total Time Spent Total Time Spent (In Minutes): 30 minutes Discharge Plan Discharge Items Patient Disposition: Home - Self-Care Reason For Visit: INTRACTABLE PAIN Discharge Diagnosis: Rib fractures Activity: Resume your previous activity Non-emergency contact: Primary Care Provider Call non-emergency contact if: your pain is not controlled Follow-up/Referrals: Jarod Lovett MD [Primary Care Provider] - Diet: Carb Consistent or DM2 Addtl Attending Provider Instructions: Faith Solorzano is a 70yo female with PMHx significant for 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 fib on anticoagulation, obesity, hyperlipidemia, hypertension, hypothyroidism, and anxiety who was admitted to [facility] on 12/03 for acute rib fracture x 2 s/p mechanical fall. Rib fractures Chest pain reproducible on exam, EKG without ischemic change, Troponin WNL, CT shows acute fractures of the lateral left sixth and seventh ribs without pneumothorax; small left pleural effusion noted --> rib fractures following mechanical fall. - Patient has been treated with APAP 1000mg q8h, lidocaine patch PRN, oxycodone 10mg PO Q4H PRN, Toradol 15mg IV Q6H PRN throughout course of hospitalization - She was transitioned from Toradol IV to Tramadol 50mg PO TID PRN on 12/13 - After discharge, can continue with APAP, Lidocaine Patch, Oxycodone and Tramadol PRN at the doses/frequency stated above - Naproxen started on 12/14 - can continue with 500mg PO BID x2 days for additional pain control - patient already on Protonix 40mg PO QAM (GI ppx) - Continue incentive spirometry Recurrent falls - 2/2 deconditioning. transfer to [facility] Atrial fibrillation - continue home Xarelto 20mg PO daily and Diltiazem 120mg PO QAM T2DM - HbA1c 8.0% (10/27) - Continue SSI + Lantus while hospitalized - continue home meds when discharged home Hypothyroidism - continue home Synthroid HTN - continue home Lisinopril 10mg PO QAM HLD - continue Atorvastatin 40mg PO QHS Anxiety - continue home Cymbalta/Buspar GERD - continue home Protonix Pending Studies at Discharge: No Stand-Alone Forms: My [facility] Medications and DC Order Prescriptions: New naproxen 500 mg tablet,delayed release (DR/EC) 500 mg PO BID Qty: 4 RF: 0 Continued cyanocobalamin (vitamin B-12) 1,000 mcg/mL kit 1,000 mcg IM MONTHLY RF: 0 multivitamin tablet 1 tab PO QAM RF: 0 atorvastatin 40 mg tablet 40 mg PO HS Qty: 90 RF: 3 Lantus Solostar U-100 Insulin 100 unit/mL (3 mL) insulin pen 31 unit SQ HS Qty: 15 RF: 5 Trulicity 0.75 mg/0.5 mL pen injector 0.75 mg subcut WK Qty: 2 RF: 5 pantoprazole 40 mg tablet,delayed release (DR/EC) 40 mg PO QAM Qty: 90 RF: 3 lisinopril 10 mg tablet 10 mg PO QAM Qty: 90 RF: 3 acetaminophen [Tylenol Extra Strength] 500 mg tablet 1,000 mg PO TID PRN (Reason: Pain) Qty: 90 RF: 1 levothyroxine 25 mcg tablet 37.5 mcg PO QAM Qty: 135 RF: 3 tramadol [Ultram] 50 mg tablet 50 mg PO Q12H PRN (Reason: pain) Qty: 60 RF: 0 gabapentin 600 mg tablet 300 mg PO BID Qty: 60 RF: 2 glipizide 10 mg tablet 5 mg PO BID RF: 0 Hold Instructions: per office meclizine 25 mg tablet 25 mg PO Q6H PRN (Reason: dizziness) Qty: 30 RF: 0 Xarelto 20 mg tablet 20 mg PO QAM RF: 0 cholecalciferol (vitamin D3) [Vitamin D3] 25 mcg (1,000 unit) Capsule 1,000 unit PO QAM RF: 0 diltiazem HCl [Taztia XT] 120 mg Capsule,Extended Release 24 Hr 120 mg PO QAM Qty: 90 RF: 3 calcium 600 mg Capsule 1 mg PO DAILY RF: 0 duloxetine 60 mg capsule,delayed release(DR/EC) 60 mg PO QAM RF: 0 buspirone 15 mg Tablet 15 mg PO BID RF: 0 lidocaine 5 % Adhesive Patch,Medicated 1 patch transdermal QAM Qty: 1 RF: 0 ergocalciferol (vitamin D2) 1,250 mcg (50,000 unit) Capsule 50,000 unit PO Th@0900 Qty: 6 RF: 0 diclofenac sodium [Voltaren Arthritis Pain] 1 % gel 2 g topical QID Qty: 2 RF: 0 Discontinued nitrofurantoin macrocrystal 100 mg capsule 100 mg PO BID Qty: 14 RF: 0 Discharge Orders: Discharge Order (Routine); Ordered 12/14/20 Ordered By: Jake Cadena Admission Data Admit Date/Time: 12/05/20 09:25 Attending Provider: Khushi Freeman Admit Provider: Colin Whitehead Primary Care Provider: Jarod Lovett Other Providers: Brandon Lockwood ; [place] [place] ; [facility] Other Interventions: Discharge Summary Assessment (RN) Last Done: 12/14/20 14:23 Supervising Physician Co-Signing Physician Notes Resident Physician Supervision Note: I independently interviewed and examined the patient and verified the edwards history and physical, reviewed labs and image studies and agree with resident Dr. Cadena findings and care plan. Resident Activity Tracking Resident Involvement: Resident Care Provided Care Provided: Adult Hospital Medicine
== END 2020-12-14 14:25 | disposition home or self-care (01) ==
LOC: 3W 21:31 → ED 21:31 → SUATTDRO 12-03 01:40 → 3W 12-03 03:30 → SUATTDRO 12-05 09:25

== ENCOUNTER 2020-12-29 12:46 | Observation (INO) ==
--- NOTE | 2020-12-29 13:38 | Emergency Department Note ---
History of Present Illness General Chief Complaint: Fall Stated Complaint: FALL Time Seen by Provider: 12/29/20 13:35 Source: patient Mode of arrival: other Limitations: no limitations History of Present Illness Provider complaint: fall Fall from: standing Fall witnessed: no Place fall occurred: home Loss of consciousness: none Prolonged down time: no Symptoms prior to fall: none Treatments prior to arrival: + other (tramadol) Context: + tripped/slipped and + history of frequent falls Location of injury: + head, + face and + neck Location of injury - extremities: Right: thigh, knee, lower leg and ankle Severity: moderate Quality: + sharp Home Medications Medication Instructions Recorded Confirmed Type cyanocobalamin (vitamin B-12) 1,000 mcg IM MONTHLY ea 02/04/18 12/29/20 History 1,000 mcg/mL injection kit multivitamin 1 tab PO QAM 02/04/18 12/29/20 History cholecalciferol (vitamin D3) 25 1,000 unit PO QAM 07/29/19 12/29/20 History mcg (1,000 unit) capsule (Vitamin D3) atorvastatin 40 mg tablet 40 mg PO HS #90 tab 11/29/19 12/29/20 Rx diltiazem HCl 120 mg capsule,24 120 mg PO QAM #90 cap 04/06/20 12/29/20 Rx hr,extended release (Taztia XT) insulin glargine 100 unit/mL (3 31 unit SQ HS #15 ml 06/08/20 12/29/20 Rx mL) subcutaneous pen (Lantus Solostar U-100 Insulin) dulaglutide 0.75 mg/0.5 mL 0.75 mg SUBCUT WK #2 ml 06/20/20 12/29/20 Rx subcutaneous pen injector (Trulicity) rivaroxaban 20 mg tablet (Xarelto) 20 mg PO QAM 08/14/20 12/29/20 History pantoprazole 40 mg tablet,delayed 40 mg PO QAM #90 tab 09/07/20 12/29/20 Rx release calcium 600 mg capsule 600 mg PO DAILY 09/27/20 12/29/20 History lisinopril 10 mg tablet 10 mg PO QAM #90 tab 10/09/20 12/29/20 Rx acetaminophen 500 mg tablet 1,000 mg PO TID PRN #90 tab 10/17/20 12/29/20 Rx (Tylenol Extra Strength) levothyroxine 25 mcg tablet 37.5 mcg PO QAM #135 tab 10/24/20 12/29/20 Rx duloxetine 60 mg capsule,delayed 60 mg PO QAM 10/25/20 12/29/20 History release gabapentin 600 mg tablet 300 mg PO BID #60 tab 10/25/20 12/29/20 Rx glipizide 10 mg tablet 5 mg PO BID tab 10/25/20 12/29/20 History buspirone 15 mg tablet 15 mg PO BID 10/30/20 12/29/20 History diclofenac sodium 1 % topical gel 2 g TOPICAL QID #2 g 11/03/20 12/29/20 Rx (Voltaren Arthritis Pain) lidocaine 5 % topical patch 1 patch TRANSDERMAL QAM #1 ea 11/03/20 12/29/20 Rx tramadol 50 mg tablet (Ultram) 50 mg PO Q12H PRN #60 tab 11/29/20 12/29/20 Rx naproxen 500 mg tablet,delayed 500 mg PO BID #4 tab 12/14/20 12/29/20 Rx release fentanyl 25 mcg/hr transdermal 1 patch TRANSDERMAL Q72H 12/25/20 12/29/20 History patch oxycodone 5 mg tablet See Rx Instructions PO Q4H PRN 12/25/20 12/29/20 History meclizine 25 mg tablet 25 mg PO Q6H PRN #30 tab 12/28/20 12/29/20 Rx Allergies Allergy/AdvReac Type Severity Reaction Status Date / Time metformin AdvReac Severe Unknown Verified 12/29/20 16:24 Past Med/Surg History Medical History Anxiety Aortic stenosis Mild AV stenosis per 12/2019 ECHO. (MERLENE= 1.6cm2; AV mean gradient= 7.8mmHg; AV max velocity= 1.939 m/s) Atrial fibrillation hx Atrial flutter hx Bilateral hip bursitis Cervical spine disease Chronic anemia Chronic pain Degenerative disc disease Depression Diabetes mellitus, type 2 IDDM Gastroesophageal reflux disease Hx of cardiac pacemaker [facility]. [employer] device. follows with Dr Ramires Hx of tachycardia-bradycardia syndrome reason for pacemaker Hypercholesterolemia Hypothyroidism Infiltrating ductal carcinoma of left breast Initially dx'ed in 2016- s/p lumpectomy, XRT and anastrozole Metastatic breast cancer March 2020 Knee pain Liver mass Pt denies but 05/17/20 PET scan shows 2.5 right hepatic lobe mass consistent with known hepatic metastasis Metastatic lung carcinoma Obstructive sleep apnea does not wear machine Peripheral neuropathy Surgical History H/O bilateral hip replacements History of section History of colonoscopy History of evacuation of hematoma (08/30/13) Hematoma right breast and right chest 08/31/13 Dr. Shah History of total knee arthroplasty bilateral Port-A-Cath in place (06/13/20) Insertion of Mediport Right Subclavian Dr. Shah 06/13/2020 Status post appendectomy Status post arthroscopy of left shoulder Status post gastric bypass for obesity Status post laparoscopic cholecystectomy Status post lumbar spine surgery for decompression of spinal cord Status post panniculectomy Status post partial mastectomy of left breast Status post placement of cardiac pacemaker Status post repair of ventral hernia Status post total abdominal hysterectomy and bilateral salpingo-oophorectomy Status post total hip replacement, bilateral Family History Unknown Breast cancer Emphysema lung Mother Diabetes Heart disease Father Heart disease Other No family history of adverse response to anesthesia Denies family history of Ovarian cancer Prostate cancer Coronary heart disease Colorectal cancer Social History Smoking Status: Former smoker Tobacco Type: Cigarettes packs per day: 2; Second Hand Exposure: Yes; Hx Alcohol Use: No Hx Substance Use: No Preferred Language: Romanian Communication Ability: Effective Hearing Ability: Normal Boatswain'S Mate Required: No Beliefs That Will Affect Care: None marital status: Current Living Situation: Spouse current occupational status: retired Feels Safe at Home: Yes Childhood Exposure to Second-Hand Smoke: Yes caffeine: Yes Dental Care, Regularly: No Physical Activity Frequency: 1-2 Times per Week Seatbelt Use: always Sunscreen Use: No Assistive Devices: Denture - Upper, Denture - Lower, Glasses and Walker Review of Systems See HPI for pertinent positives & negatives. and A total of 10 systems reviewed and were otherwise negative Physical Exam Vital Signs Vital Signs - 24 hr 12/29/20 12:53 12/29/20 15:15 12/29/20 18:08 Temperature 36.8 C Temperature Source Oral Pulse Rate 73 Pulse Rate [Finger] 71 75 Respiratory Rate 18 18 20 Blood Pressure 111/68 Blood Pressure [Right Arm] 155/48 H 155/48 H Blood Pressure Mean 82 Blood Pressure Mean [Right Arm] 83 83 Pulse Oximetry 97 97 96 Oxygen Delivery Method Room Air Room Air Room Air Sepsis Recent Fever Within 48 Hours No Sepsis New/Unexplained Change in Mental Status No Sepsis Action Taken by Nursing No Action Required 12/29/20 19:26 Temperature Temperature Source Pulse Rate Pulse Rate [Finger] 106 H Respiratory Rate 20 Blood Pressure Blood Pressure [Right Arm] 128/79 Blood Pressure Mean Blood Pressure Mean [Right Arm] 95 Pulse Oximetry 91 Oxygen Delivery Method Sepsis Recent Fever Within 48 Hours Sepsis New/Unexplained Change in Mental Status Sepsis Action Taken by Nursing GENERAL: Well appearing, well nourished, NAD, non-toxic. Face: Mild pain and age bruising to the right side of the face, no obvious malocclusion. EYE EXAM: Normal conjunctiva. PERRL, no anisocoria and EOM's grossly intact w/o pain. NECK: Supple, no nuchal rigidity, no adenopathy, non-tender. No signs of meningismus. LUNGS: Clear to auscultation. Normal chest wall mechanics. HEART: NSR, no MRG. ABDOMEN: Abdomen soft, non-tender, normo-active bowel sounds, no masses, no rebound or guarding. BACK: No CVA TTP. SKIN: No rashes and no bruising. UPPER EXTREMITIES: Upper extremities are grossly normal. No pain to palpation LOWER EXTREMITIES: Pain over the right hip knee and ankle, significant swelling to the right knee, decreased range of motion secondary to pain, compartments are soft neurovascular intact distally. NEURO EXAM: A&O x3, cranial nerves II-XII grossly intact, normal speech, moves all 4 extremities on command w/o issue. Course Course Cardiac monitoring: An order was placed for continuous cardiac monitoring. The monitor shows a rate of 95 with sinus rhythm. Administered Medications Discontinued Medications Acetaminophen (Acetaminophen 500 Mg Tab) 1,000 mg PO NOW STA Stop: 12/29/20 14:09 Last Admin: 12/29/20 15:10 Dose: 1,000 mg Documented by: [id number] Morphine Sulfate (Morphine Sulfate 4 Mg/Ml 1 Ml Carp\Vial) 4 mg IV NOW STA Stop: 12/29/20 14:08 Last Admin: 12/29/20 15:09 Dose: 4 mg Documented by: [id number] Morphine Sulfate (Morphine Sulfate 4 Mg/Ml 1 Ml Carp\Vial) 4 mg IV NOW STA Stop: 12/29/20 17:20 Last Admin: 12/29/20 17:45 Dose: Not Given Documented by: [id number] Medical Decision Making Differential Diagnosis Fracture, dislocation, contusion, intra-abdominal, pneumothorax, intrathoracic, intracranial, neurologic, compartment syndrome, rhabdomyolysis, as well as other pathologies. Medical Records Attestation: I reviewed the patient's medical records. Home Medications Current Medication List: was personally reviewed by me Laboratory Data Attestation: I reviewed the patient's lab results. Result diagrams: 12/29/20 14:10 12/29/20 14:10 Lab Results 12/29/20 12/29/20 12/29/20 Range/Units 14:10 14:10 14:10 WBC 10.10 (4.8-10.8) K/uL RBC 3.12 L (4.2-5.4) M/uL Hgb 9.1 L (12.0-16.0) g/dL Hct 28.8 L (37-47) % MCV 92.3 (80-100) fL MCH 29.2 (25-34) pg MCHC 31.6 L (32-36) g/dL RDW Std Deviation 55.6 H (36.4-46.3) fL RDW Coeff of Thompson 16.7 H (11.5-14.5) % Plt Count 318 (130-400) K/uL MPV 10.1 (7.4-10.4) fL Immature Gran % (Auto) 0.1 % Neut % (Auto) 76.5 % Lymph % (Auto) 13.7 % [place] % (Auto) 9.6 % Eos % (Auto) 0.1 % Baso % (Auto) 0.0 % Neut # (Auto) 7.73 H (1.4-6.5) K/uL Lymph # (Auto) 1.38 (1.2-3.4) K/uL [place] # (Auto) 0.97 H (0.11-0.59) K/uL Eos # (Auto) 0.01 (0-0.5) K/uL Baso # (Auto) 0.00 (0-0.2) K/uL Immature Gran # (Auto) 0.01 (0.00-0.02) K/uL PT 14.1 H (9.0-12.0) Seconds INR 1.4 H (0.9-1.1) Sodium 135 L (136-145) mmol/L Potassium 4.3 (3.5-5.1) mmol/L Chloride 102 (98-107) mmol/L Carbon Dioxide 27 (21-32) mmol/L Anion Gap 6.0 (3-11) BUN 13 (7-18) mg/dl Creatinine 0.53 L (0.6-1.2) mg/dl Est Cr Clr Drug Dosing Not Reportable Est GFR ( Amer) 109.9 ml/min Est GFR (Non-Af Amer) 94.9 ml/min BUN/Creatinine Ratio 24.8 H (10-20) Glucose 166 H (70-99) mg/dl Calcium 8.6 (8.5-10.1) mg/dl COVID-19 Eval Order SARS-CoV-2 (PCR) (Negative) 12/29/20 12/29/20 Range/Units 16:55 16:55 WBC (4.8-10.8) K/uL RBC (4.2-5.4) M/uL Hgb (12.0-16.0) g/dL Hct (37-47) % MCV (80-100) fL MCH (25-34) pg MCHC (32-36) g/dL RDW Std Deviation (36.4-46.3) fL RDW Coeff of Thompson (11.5-14.5) % Plt Count (130-400) K/uL MPV (7.4-10.4) fL Immature Gran % (Auto) % Neut % (Auto) % Lymph % (Auto) % [place] % (Auto) % Eos % (Auto) % Baso % (Auto) % Neut # (Auto) (1.4-6.5) K/uL Lymph # (Auto) (1.2-3.4) K/uL [place] # (Auto) (0.11-0.59) K/uL Eos # (Auto) (0-0.5) K/uL Baso # (Auto) (0-0.2) K/uL Immature Gran # (Auto) (0.00-0.02) K/uL PT (9.0-12.0) Seconds INR (0.9-1.1) Sodium (136-145) mmol/L Potassium (3.5-5.1) mmol/L Chloride (98-107) mmol/L Carbon Dioxide (21-32) mmol/L Anion Gap (3-11) BUN (7-18) mg/dl Creatinine (0.6-1.2) mg/dl Est Cr Clr Drug Dosing Est GFR ( Amer) ml/min Est GFR (Non-Af Amer) ml/min BUN/Creatinine Ratio (10-20) Glucose (70-99) mg/dl Calcium (8.5-10.1) mg/dl COVID-19 Eval Order Covid19 at [facility] SARS-CoV-2 (PCR) NEGATIVE (Negative) Imaging Data Radiologist's Impression: Cervical Spine CT 12/29/20 14:07 CT SCAN OF THE CERVICAL SPINE CLINICAL HISTORY: Trauma. Fall one week ago. COMPARISON STUDY: CT of the cervical spine dated 12/02/2020. TECHNIQUE: CT scan of the cervical spine is performed from the skull base to the upper thoracic spine. Images are reviewed in the axial, sagittal, and coronal planes. IV contrast was not administered for this examination. A dose lowering technique was utilized adhering to the principles of ALARA. FINDINGS: Skeletal structures: The skeletal structures are osteopenic. There is no evidence of fracture or subluxation involving the cervical spine. Vertebral body height is maintained. There is minimal anterolisthesis at C5-C6. Alignment is otherwise preserved. There is straightening of the cervical lordosis. Anterior osteophytes are seen throughout. The odontoid process and lateral masses are intact. The atlantoaxial articulation is preserved noting advanced productive degenerative change. The spinous processes appear intact. There is mild to moderate multilevel cervical spondylosis. Uncovertebral and facet arthropathy contribute to neural foraminal narrowing at several levels. Intervertebral discs: Moderate disc space narrowing is noted at C5-C6. Only mild disc space narrowing is seen at the remaining cervical levels. Central canal: A posterior disc osteophyte complex at C5-C6 may contribute to mild acquired compromise of the central canal. Soft tissues: The prevertebral and paraspinous soft tissues are within normal limits. There is atherosclerotic calcification of the carotid bulbs. Calvarium: The visualized calvarium at the skull base appears intact. Brain parenchyma: Partially visualized brain parenchyma at the skull base is within normal limits. Sinuses and mastoids: The visualized paranasal sinuses are clear. The mastoid air cells are well pneumatized. Lung apices: Clear as visualized. IMPRESSION: 1. There is no evidence of fracture or subluxation involving the cervical spine. 2. Osteopenia and spondylotic change as above. ACT 112: Negative or not required by law. Electronically signed by: Noe Carrillo M.D. 12/29/2020 3:[address] 12/29/20 14:[address] DOSE: HISTORY: fall 1 week prior, xarelto, R sided pain TECHNIQUE: Multiaxial CT images of the maxillofacial region were performed and reformatted in the coronal plane without the use of contrast. A dose lowering technique was utilized adhering to the principles of ALARA. COMPARISON: None. FINDINGS: The visualized cervical spine, skull base, pterygoid plates, nasal bones, lamina papyracea, orbital floors, mandible, and zygomatic arches are intact. No fractures. The orbits are unremarkable. IMPRESSION: No fractures within the maxillofacial region. ACT 112: Negative or not required by law. Electronically signed by: Shan Hollingsworth M.D. 12/29/2020 3:[address] 12/29/20 14:[address] DOSE: 946.61 mGy.cm HISTORY: fall 1 week prior, xarelto, R sided pain TECHNIQUE: Multiaxial CT images of the head were performed without the use of intravenous contrast. Automated exposure control was utilized for this study. A dose lowering technique was utilized adhering to the principles of ALARA. Comparison: Head CT 12/02/2020. Findings: There is right frontal scalp swelling. There is mild motion artifact. Stable left lateral scalp nodule. The calvarium and skull base are intact. The ventricles and sulci are within normal limits. There is no mass, hematoma, midline shift, or acute infarct. Impression: No acute intracranial abnormality. Right frontal scalp injury. ACT 112: Negative or not required by law. Electronically signed by: Shan Hollingsworth M.D. 12/29/2020 3:04 PM Ankle X-Ray 12/29/20 14:08 XR hip RT 2V w pelvis, XR femur RT 2V routine, XR knee RT 3V, XR ankle RT min 3V routine CLINICAL HISTORY: fall 1 week prior, xarelto, R sided lower extremity pain COMPARISON STUDY: Pelvis 10/25/2020. FINDINGS: The bones are osteopenic. Lumbar spinal fusion hardware is partially visualized. There are bilateral total hip arthroplasties. The hardware is intact. There is a moderate knee effusion. There is also a right total knee arthroplasty. Mild periprosthetic lucency at the tibial component of the knee. This could represent loosening. Mild soft tissue swelling within the right ankle. No fractures or dislocation within the pelvis, right hip, right femur, right knee, or right ankle. Thickening and calcifications at the Achilles tendon consistent with a chronic tendinosis. There are plantar and posterior calcaneal spurs. IMPRESSION: 1. No fractures identified within the pelvis, right hip, right femur, right knee, right ankle. 2. Additional chronic changes as described above. ACT 112: Negative or not required by law. Electronically signed by: Shan Hollingsworth M.D. 12/29/2020 3:58 PM Femur X-Ray 12/29/20 14:08 XR hip RT 2V w pelvis, XR femur RT 2V routine, XR knee RT 3V, XR ankle RT min 3V routine CLINICAL HISTORY: fall 1 week prior, xarelto, R sided lower extremity pain COMPARISON STUDY: Pelvis 10/25/2020. FINDINGS: The bones are osteopenic. Lumbar spinal fusion hardware is partially visualized. There are bilateral total hip arthroplasties. The hardware is intact. There is a moderate knee effusion. There is also a right total knee arthroplasty. Mild periprosthetic lucency at the tibial component of the knee. This could represent loosening. Mild soft tissue swelling within the right ankle. No fractures or dislocation within the pelvis, right hip, right femur, right knee, or right ankle. Thickening and calcifications at the Achilles tendon consistent with a chronic tendinosis. There are plantar and posterior calcaneal spurs. IMPRESSION: 1. No fractures identified within the pelvis, right hip, right femur, right knee, right ankle. 2. Additional chronic changes as described above. ACT 112: Negative or not required by law. Electronically signed by: Shan Hollingsworth M.D. 12/29/2020 3:58 PM Hip/Pelvis X-Ray 12/29/20 14:08 XR hip RT 2V w pelvis, XR femur RT 2V routine, XR knee RT 3V, XR ankle RT min 3V routine CLINICAL HISTORY: fall 1 week prior, xarelto, R sided lower extremity pain COMPARISON STUDY: Pelvis 10/25/2020. FINDINGS: The bones are osteopenic. Lumbar spinal fusion hardware is partially visualized. There are bilateral total hip arthroplasties. The hardware is intact. There is a moderate knee effusion. There is also a right total knee arthroplasty. Mild periprosthetic lucency at the tibial component of the knee. This could represent loosening. Mild soft tissue swelling within the right ankle. No fractures or dislocation within the pelvis, right hip, right femur, right knee, or right ankle. Thickening and calcifications at the Achilles tendon consistent with a chronic tendinosis. There are plantar and posterior calcaneal spurs. IMPRESSION: 1. No fractures identified within the pelvis, right hip, right femur, right knee, right ankle. 2. Additional chronic changes as described above. ACT 112: Negative or not required by law. Electronically signed by: Shan Hollingsworth M.D. 12/29/2020 3:58 PM Knee X-Ray 12/29/20 14:08 XR hip RT 2V w pelvis, XR femur RT 2V routine, XR knee RT 3V, XR ankle RT min 3V routine CLINICAL HISTORY: fall 1 week prior, xarelto, R sided lower extremity pain COMPARISON STUDY: Pelvis 10/25/2020. FINDINGS: The bones are osteopenic. Lumbar spinal fusion hardware is partially visualized. There are bilateral total hip arthroplasties. The hardware is intact. There is a moderate knee effusion. There is also a right total knee arthroplasty. Mild periprosthetic lucency at the tibial component of the knee. This could represent loosening. Mild soft tissue swelling within the right ankle. No fractures or dislocation within the pelvis, right hip, right femur, right knee, or right ankle. Thickening and calcifications at the Achilles tendon consistent with a chronic tendinosis. There are plantar and posterior calcaneal spurs. IMPRESSION: 1. No fractures identified within the pelvis, right hip, right femur, right knee, right ankle. 2. Additional chronic changes as described above. ACT 112: Negative or not required by law. Electronically signed by: Shan Hollingsworth M.D. 12/29/2020 3:58 PM MDM Narrative Patient was seen due to concern for fall that occurred last with the patient was having increasing difficulty with ambulation. The patient primarily does use a walker at home but has not been unable to do so since this morning. The patient has noticed increasing swelling to the right knee. Patient does take Xarelto. Patient states that last week she was turning and subsequently fell to her right side. Patient denies any fevers chills chest pains or shortness of breath. The patient has tried to take tramadol at home but without improvement in symptoms. Blood work is obtained along with CT of the head cervical spine and face. The patient did have x-rays completed of the right lower extremity. Patient CTs and x-rays are negative for acute findings. The patient is unable to ambulate even with a walker and thus do not believe the patient is safe for home. I did speak with the on-call hospitalist and the patient was admitted to the medicine service for further evaluation treatment and possible placement. Do not believe the patient would benefit from arthrocentesis as the patient is still on Xarelto as the patient likely would have a recurrence of her bleeding. Impression & Plan Fall, Effusion of knee joint right, Acute facial pain, Traumatic ecchymosis of face Discharge Plan Visit Data Chief Complaint: Fall Stated Complaint: FALL ED Provider: Teofilo Lopez Discharge Problem: Fall, Effusion of knee joint right, Acute facial pain, Traumatic ecchymosis of face Patient Disposition: Admitted As Inpatient Discharge Instructions Interventions: ED Discharge Assessment Last Done: 12/29/20 19:38 Forms Stand Alone Forms: My [facility] [email or web address] Prescriptions Prescriptions: No Action cyanocobalamin (vitamin B-12) 1,000 mcg/mL kit 1,000 mcg IM MONTHLY RF: 0 multivitamin tablet 1 tab PO QAM RF: 0 atorvastatin 40 mg tablet 40 mg PO HS Qty: 90 RF: 3 Lantus Solostar U-100 Insulin 100 unit/mL (3 mL) insulin pen 31 unit SQ HS Qty: 15 RF: 5 Trulicity 0.75 mg/0.5 mL pen injector 0.75 mg subcut WK Qty: 2 RF: 5 pantoprazole 40 mg tablet,delayed release (DR/EC) 40 mg PO QAM Qty: 90 RF: 3 lisinopril 10 mg tablet 10 mg PO QAM Qty: 90 RF: 3 acetaminophen [Tylenol Extra Strength] 500 mg tablet 1,000 mg PO TID PRN (Reason: Pain) Qty: 90 RF: 1 levothyroxine 25 mcg tablet 37.5 mcg PO QAM Qty: 135 RF: 3 fentanyl 25 mcg/hr patch 72 hour 1 patch transdermal Q72H RF: 0 oxycodone 5 mg tablet See Rx Instructions PO Q4H PRN (Reason: Pain) RF: 0 Hold Instructions: hold tramadol [Ultram] 50 mg tablet 50 mg PO Q12H PRN (Reason: pain) Qty: 60 RF: 0 gabapentin 600 mg tablet 300 mg PO BID Qty: 60 RF: 2 glipizide 10 mg tablet 5 mg PO BID RF: 0 Hold Instructions: per office Xarelto 20 mg tablet 20 mg PO QAM RF: 0 meclizine 25 mg tablet 25 mg PO Q6H PRN (Reason: dizziness) Qty: 30 RF: 0 cholecalciferol (vitamin D3) [Vitamin D3] 25 mcg (1,000 unit) Capsule 1,000 unit PO QAM RF: 0 diltiazem HCl [Taztia XT] 120 mg Capsule,Extended Release 24 Hr 120 mg PO QAM Qty: 90 RF: 3 calcium 600 mg Capsule 600 mg PO DAILY RF: 0 naproxen 500 mg tablet,delayed release (DR/EC) 500 mg PO BID Qty: 4 RF: 0 duloxetine 60 mg capsule,delayed release(DR/EC) 60 mg PO QAM RF: 0 buspirone 15 mg Tablet 15 mg PO BID RF: 0 lidocaine 5 % Adhesive Patch,Medicated 1 patch transdermal QAM Qty: 1 RF: 0 diclofenac sodium [Voltaren Arthritis Pain] 1 % gel 2 g topical QID Qty: 2 RF: 0 Referrals Referrals: Jarod Lovett MD [Primary Care Provider] -
[2020-12-29] MEDS ORDERED: MoRPHine SULFATE 4 MG/ML 1 ML CARP\\VIAL IV STA ×2 (14:07→17:19)
[2020-12-29] MEDS ORDERED: ACETAMINOPHEN 500 MG TAB PO STA (14:08)
--- NOTE | 2020-12-29 15:04 | CT Scan Report ---
CT SCAN OF THE CERVICAL SPINE CLINICAL HISTORY: Trauma. Fall one week ago. COMPARISON STUDY: CT of the cervical spine dated 12/02/2020. TECHNIQUE: CT scan of the cervical spine is performed from the skull base to the upper thoracic spine . Images are reviewed in the axial, sagittal, and coronal planes. IV contrast was not administered fo r this examination. A dose lowering technique was utilized adhering to the principles of ALARA. FINDINGS: Skeletal structures: The skeletal structures are osteopenic. There is no evidence of fracture or subl uxation involving the cervical spine. Vertebral body height is maintained. There is minimal anterolis thesis at C5-C6. Alignment is otherwise preserved. There is straightening of the cervical lordosis. A nterior osteophytes are seen throughout. The odontoid process and lateral masses are intact. The atla ntoaxial articulation is preserved noting advanced productive degenerative change. The spinous proces ses appear intact. There is mild to moderate multilevel cervical spondylosis. Uncovertebral and facet arthropathy contribute to neural foraminal narrowing at several levels. Intervertebral discs: Moderate disc space narrowing is noted at C5-C6. Only mild disc space narrowing is seen at the remaining cervical levels. Central canal: A posterior disc osteophyte complex at C5-C6 may contribute to mild acquired compromis e of the central canal. Soft tissues: The prevertebral and paraspinous soft tissues are within normal limits. There is athero sclerotic calcification of the carotid bulbs. Calvarium: The visualized calvarium at the skull base appears intact. Brain parenchyma: Partially visualized brain parenchyma at the skull base is within normal limits. Sinuses and mastoids: The visualized paranasal sinuses are clear. The mastoid air cells are well pneu matized. Lung apices: Clear as visualized. IMPRESSION: 1. There is no evidence of fracture or subluxation involving the cervical spine. 2. Osteopenia and spondylotic change as above. ACT 112: Negative or not required by law. Electronically signed by: Noe Carrillo M.D. 12/29/2020 3:03 PM
--- NOTE | 2020-12-29 15:05 | CT Scan Report ---
HEAD CT NONCONTRAST CT DOSE: 946.61 mGy.cm HISTORY: fall 1 week prior, xarelto, R sided pain TECHNIQUE: Multiaxial CT images of the head were performed without the use of intravenous contrast. A utomated exposure control was utilized for this study. A dose lowering technique was utilized adheri ng to the principles of ALARA. Comparison: Head CT 12/02/2020. Findings: There is right frontal scalp swelling. There is mild motion artifact. Stable left lateral s calp nodule. The calvarium and skull base are intact. The ventricles and sulci are within normal limi ts. There is no mass, hematoma, midline shift, or acute infarct. Impression: No acute intracranial abnormality. Right frontal scalp injury. ACT 112: Negative or not required by law. Electronically signed by: Shan Hollingsworth M.D. 12/29/2020 3:04 PM
--- NOTE | 2020-12-29 15:08 | CT Scan Report ---
MAXILLOFACIAL CT CT DOSE: HISTORY: fall 1 week prior, xarelto, R sided pain TECHNIQUE: Multiaxial CT images of the maxillofacial region were performed and reformatted in the cor onal plane without the use of contrast. A dose lowering technique was utilized adhering to the princ iplSelena. COMPARISON: None. FINDINGS: The visualized cervical spine, skull base, pterygoid plates, nasal bones, lamina papyracea, orbital floors, mandible, and zygomatic arches are intact. No fractures. The orbits are unremarkable . IMPRESSION: No fractures within the maxillofacial region. ACT 112: Negative or not required by law. Electronically signed by: Shan Hollingsworth M.D. 12/29/2020 3:07 PM
[2020-12-29 15:20] LABS: Eosinophils # (auto) 0.01 K/uL (0-0.5); Eosinophils % (auto) 0.1 %; Hematocrit (blood only) 28.8 % (37-47); Hemoglobin 9.1 g/dL (12.0-16.0); Immature Granulocytes # (auto) 0.01 K/uL (0.00-0.02); Immature Granulocytes % (auto) 0.1 %; Lymphocytes # (auto) 1.38 K/uL (1.2-3.4); Lymphocytes % (auto) 13.7 %; Mean Corpuscular Hemoglobin 29.2 pg (25-34); Mean Corpuscular Hgb Conc 31.6 g/dL (32-36); Mean Corpuscular Volume 92.3 fL (80-100); Mean Platelet Volume 10.1 fL (7.4-10.4); Monocytes # (auto) 0.97 K/uL (0.11-0.59); Monocytes % (auto) 9.6 %; Neutrophils # (auto) 7.73 K/uL (1.4-6.5); Neutrophils % (auto) 76.5 %; Platelet Count 318 K/uL (130-400); RDW Coefficient of Variation 16.7 % (11.5-14.5); RDW Standard Deviation 55.6 fL (36.4-46.3); Red Blood Count 3.12 M/uL (4.2-5.4)
[2020-12-29 15:30] LABS: INR 1.4 (0.9-1.1); Prothrombin Time 14.1 Seconds (9.0-12.0)
[2020-12-29 15:32] LABS: BUN Creatinine Ratio 24.8 (10-20); Blood Urea Nitrogen 13 mg/dl (7-18); Calcium 8.6 mg/dl (8.5-10.1); Carbon Dioxide 27 mmol/L (21-32); Chloride 102 mmol/L (98-107); Est GFR (African American) 109.9 ml/min; Est GFR (Non-African American) 94.9 ml/min; Glucose 166 mg/dl (70-99); Potassium 4.3 mmol/L (3.5-5.1); Sodium 135 mmol/L (136-145)
--- NOTE | 2020-12-29 15:59 | XRay Report ---
XR hip RT 2V w pelvis, XR femur RT 2V routine, XR knee RT 3V, XR ankle RT min 3V routine CLINICAL HISTORY: fall 1 week prior, xarelto, R sided lower extremity pain COMPARISON STUDY: Pelvis 10/25/2020. FINDINGS: The bones are osteopenic. Lumbar spinal fusion hardware is partially visualized. There are bilateral total hip arthroplasties. The hardware is intact. There is a moderate knee effusion. There is also a right total knee arthroplasty. Mild periprosthetic lucency at the tibial component of the k nee. This could represent loosening. Mild soft tissue swelling within the right ankle. No fractures o r dislocation within the pelvis, right hip, right femur, right knee, or right ankle. Thickening and c alcifications at the Achilles tendon consistent with a chronic tendinosis. There are plantar and post erior calcaneal spurs. IMPRESSION: 1. No fractures identified within the pelvis, right hip, right femur, right knee, right ankle. 2. Additional chronic changes as described above. ACT 112: Negative or not required by law. Electronically signed by: Shan Hollingsworth M.D. 12/29/2020 3:58 PM
--- NOTE | 2020-12-29 18:22 | History & Physical Report ---
Date of Service December 29, 2020 Assessment & Plan (1) Knee pain: Plan: Right knee pain with ecchymosis and swelling, not erythemic - Noted very limited ROM - Imaging of the knee negative for fracture- Mild periprosthetic lucency at the tibial component of the knee. This could represent loosening- Orthopaedics consulted - Continue with lidocaine patches, tylenol and low dose opiod if needed - PT/OT consult (2) Recurrent falls: Plan: As above- evaluate knee, evaluate her functionality, assess for rehab (3) Diabetes mellitus type 2, uncontrolled: Plan: Continue lantus (4) Anemia: Plan: Chronic, no acute needs (5) Thyroid disease: Plan: No acute needs continue synthroid (6) Metastatic breast cancer: Plan: Diagnosed MAR 2020, Initialy diagnosed with 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 - Was treated with Abraxane x6 cycles- last cycle was held in October 2020 (7) Atrial fibrillation: Plan: with Pacer- MODE AAIR with mode switch to DDDR - Diltiazem 240 XL continue - Low rate 70 - High rte 130 (8) Gastroesophageal reflux disease: Plan: - Continue Protonix (9) Depression: Plan: Continue Duloxetine (10) Chronic pain: Plan: Patient on multiple agents - Fentanyl patch on hold patient says she uses this PRN - Keep oral narcotic for severe pain Oxy 5 - Continue with Lidoderm patches - Hold Voltaren gel - Continue Tramadol (11) Anticoagulant long-term use: Plan: On Xarelto for her Afib - Warranted discussion with her falls and need for chronic anticoagulation use History of Present Illness Primary Care Provider: Quinn Lovett MD 70 YOF with past medical history of frequent falls, afib (on Xeralto), pacemaker, obesity, 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 Patient comes to the hospital for evaluation of pain to her right knee and frequent falls. Patient is currently living at home with her and continues to have pain with her right knee with ambulation and this is leading her to be unable to walk without losing her balance and or falling. Patient's most recent fall she reports about a week ago, which she says was at the rehab facility where she tripped over her walker. This left her with bruising to her face, hip, chest, and her right knee. She also remains on Xeralto for her atrial fibrillation. The patient was in rehab following a fall in November where she hit her head and ribs. She c urrently has difficulty bending her right knee and putting weight on it. Patient will be admitted for further evaluation fo her functional status with PT/OT. She may need further rehabilitation and evaluation of her right knee. Patient has had her COVID vaccination and her COVID test is NEGATIVE on admission. Allergies Allergy/AdvReac Type Severity Reaction Status Date / Time metformin AdvReac Severe Unknown Verified 12/29/20 16:24 Home Medications Medication Instructions Recorded Confirmed Type cyanocobalamin (vitamin B-12) 1,000 mcg IM MONTHLY ea 02/04/18 12/29/20 History 1,000 mcg/mL injection kit multivitamin 1 tab PO QAM 02/04/18 12/29/20 History cholecalciferol (vitamin D3) 25 1,000 unit PO QAM 07/29/19 12/29/20 History mcg (1,000 unit) capsule (Vitamin D3) atorvastatin 40 mg tablet 40 mg PO HS #90 tab 11/29/19 12/29/20 Rx diltiazem HCl 120 mg capsule,24 120 mg PO QAM #90 cap 04/06/20 12/29/20 Rx hr,extended release (Taztia XT) insulin glargine 100 unit/mL (3 31 unit SQ HS #15 ml 06/08/20 12/29/20 Rx mL) subcutaneous pen (Lantus Solostar U-100 Insulin) dulaglutide 0.75 mg/0.5 mL 0.75 mg SUBCUT WK #2 ml 06/20/20 12/29/20 Rx subcutaneous pen injector (Trulicity) rivaroxaban 20 mg tablet (Xarelto) 20 mg PO QAM 08/14/20 12/29/20 History pantoprazole 40 mg tablet,delayed 40 mg PO QAM #90 tab 09/07/20 12/29/20 Rx release calcium 600 mg capsule 600 mg PO DAILY 09/27/20 12/29/20 History lisinopril 10 mg tablet 10 mg PO QAM #90 tab 10/09/20 12/29/20 Rx acetaminophen 500 mg tablet 1,000 mg PO TID PRN #90 tab 10/17/20 12/29/20 Rx (Tylenol Extra Strength) levothyroxine 25 mcg tablet 37.5 mcg PO QAM #135 tab 10/24/20 12/29/20 Rx duloxetine 60 mg capsule,delayed 60 mg PO QAM 10/25/20 12/29/20 History release gabapentin 600 mg tablet 300 mg PO BID #60 tab 10/25/20 12/29/20 Rx glipizide 10 mg tablet 5 mg PO BID tab 10/25/20 12/29/20 History buspirone 15 mg tablet 15 mg PO BID 10/30/20 12/29/20 History diclofenac sodium 1 % topical gel 2 g TOPICAL QID #2 g 11/03/20 12/29/20 Rx (Voltaren Arthritis Pain) lidocaine 5 % topical patch 1 patch TRANSDERMAL QAM #1 ea 11/03/20 12/29/20 Rx tramadol 50 mg tablet (Ultram) 50 mg PO Q12H PRN #60 tab 11/29/20 12/29/20 Rx naproxen 500 mg tablet,delayed 500 mg PO BID #4 tab 12/14/20 12/29/20 Rx release fentanyl 25 mcg/hr transdermal 1 patch TRANSDERMAL Q72H 12/25/20 12/29/20 History patch oxycodone 5 mg tablet See Rx Instructions PO Q4H PRN 12/25/20 12/29/20 History meclizine 25 mg tablet 25 mg PO Q6H PRN #30 tab 12/28/20 12/29/20 Rx Past Med/Surg History Medical History Anxiety Aortic stenosis Mild AV stenosis per 12/2019 ECHO. (MERLENE= 1.6cm2; AV mean gradient= 7.8mmHg; AV max velocity= 1.939 m/s) Atrial fibrillation hx Atrial flutter hx Bilateral hip bursitis Cervical spine disease Chronic anemia Chronic pain Degenerative disc disease Depression Diabetes mellitus, type 2 IDDM Gastroesophageal reflux disease Hx of cardiac pacemaker [facility]. [employer] device. follows with Dr Ramires Hx of tachycardia-bradycardia syndrome reason for pacemaker Hypercholesterolemia Hypothyroidism Infiltrating ductal carcinoma of left breast Initially dx'ed in 2015- s/p lumpectomy, XRT and anastrozole Metastatic breast cancer March 2020 Knee pain Liver mass Pt denies but 12/30/20 PET scan shows 2.5 right hepatic lobe mass consistent with known hepatic metastasis Metastatic lung carcinoma Obstructive sleep apnea does not wear machine Peripheral neuropathy Surgical History H/O bilateral hip replacements History of section History of colonoscopy History of evacuation of hematoma (08/30/13) Hematoma right breast and right chest 08/31/13 Dr. Shah History of total knee arthroplasty bilateral Port-A-Cath in place (06/13/20) Insertion of Mediport Right Subclavian Dr. Shah 06/13/2020 Status post appendectomy Status post arthroscopy of left shoulder Status post gastric bypass for obesity Status post laparoscopic cholecystectomy Status post lumbar spine surgery for decompression of spinal cord Status post panniculectomy Status post partial mastectomy of left breast Status post placement of cardiac pacemaker Status post repair of ventral hernia Status post total abdominal hysterectomy and bilateral salpingo-oophorectomy Status post total hip replacement, bilateral Family History Unknown Breast cancer Emphysema lung Mother Diabetes Heart disease Father Heart disease Other No family history of adverse response to anesthesia Denies family history of Ovarian cancer Prostate cancer Coronary heart disease Colorectal cancer Social History Smoking Status: Former smoker Tobacco Type: Cigarettes packs per day: 2; Second Hand Exposure: Yes; Hx Alcohol Use: No Hx Substance Use: No Preferred Language: Somali Communication Ability: Effective Hearing Ability: Normal Hammer Smith Required: No Beliefs That Will Affect Care: None marital status: Current Living Situation: Spouse current occupational status: retired Feels Safe at Home: Yes Childhood Exposure to Second-Hand Smoke: Yes caffeine: Yes Dental Care, Regularly: No Physical Activity Frequency: 1-2 Times per Week Seatbelt Use: always Sunscreen Use: No Assistive Devices: Denture - Upper, Denture - Lower, Glasses and Walker Review of Systems Review of Systems: REVIEW OF SYSTEMS: Constitutional: No fever, sweats or chills Eyes: No diplopia, no worsening or blurred vision ENT: normal hearing, no trouble swallowing Respiratory: No cough, sputum, dyspnea at rest or on exertion Cardiovascular: No chest pain, tightness or palpitations Abdomen: No pain, nausea, vomiting, diarrhea or constipation Musculoskeletal: (+) right knee joint pain, hip pain, Neurologic: (+)balance and frequent falls, weakness, numbness/tingling, or balance problems Psychiatric: (+) depression and crying, Skin: (+) bruising Physical Exam Physical Exam: PHYSICAL EXAM: General: awake, alert, no apparent distress Head: old bruising to right face, cheek, ENT: PERRL, EOMI, no pharyngeal exudate, mucous membranes moist Neuro/MSK: AAO x 3, speech clear and appropriate, strength intact bilaterally 5/5 bilateral upper extremities. sensation intact. Her right knee has old bruising to it and remains swollen, she has pain on the lateral and medial side of her knee and has minimal flexion. Chest: equal rise and fall of the chest, no accessory muscle use, no heaves or thrills, Clear to auscultation, on room air, Cardiac: Regular rate and rhythm- currently in NSR, skin warm dry, cap refill <3 seconds, peripheral pulses +2 no JVD, no murmur, no edema GI: NABS x 4 quadrants, soft, nontender to palpation, no rebound, guarding or tenderness : Spontaneously voiding, no pain, no CVA tenderness, Psych: crying and tearful because she does is tired of falling Skin: multiple areas of bruising Results & Data Results & Data ([facility]) Vital Signs (Past 12 Hours) Vital Signs Temp Pulse Pulse Resp BP BP Pulse Ox 12/29/20 15:15 71 18 155/48 H 97 12/29/20 12:53 36.8 C 73 18 111/68 97 Laboratory Results Abnormal lab results 12/29/20 12/29/20 12/29/20 Range/Units 14:10 14:10 14:10 RBC 3.12 L (4.2-5.4) M/uL Hgb 9.1 L (12.0-16.0) g/dL Hct 28.8 L (37-47) % MCHC 31.6 L (32-36) g/dL RDW Std Deviation 55.6 H (36.4-46.3) fL RDW Coeff of Thompson 16.7 H (11.5-14.5) % Neut # (Auto) 7.73 H (1.4-6.5) K/uL Beckham # (Auto) 0.97 H (0.11-0.59) K/uL PT 14.1 H (9.0-12.0) Seconds INR 1.4 H (0.9-1.1) Sodium 135 L (136-145) mmol/L Creatinine 0.53 L (0.6-1.2) mg/dl BUN/Creatinine Ratio 24.8 H (10-20) Glucose 166 H (70-99) mg/dl Diagnostic Findings Cervical Spine CT 12/29/20 14:07 CT SCAN OF THE CERVICAL SPINE CLINICAL HISTORY: Trauma. Fall one week ago. COMPARISON STUDY: CT of the cervical spine dated 12/02/2020. TECHNIQUE: CT scan of the cervical spine is performed from the skull base to the upper thoracic spine. Images are reviewed in the axial, sagittal, and coronal planes. IV contrast was not administered for this examination. A dose lowering technique was utilized adhering to the principles of ALARA. FINDINGS: Skeletal structures: The skeletal structures are osteopenic. There is no evidence of fracture or subluxation involving the cervical spine. Vertebral body height is maintained. There is minimal anterolisthesis at C5-C6. Alignment is otherwise preserved. There is straightening of the cervical lordosis. Anterior osteophytes are seen throughout. The odontoid process and lateral masses are intact. The atlantoaxial articulation is preserved noting advanced productive degenerative change. The spinous processes appear intact. There is mild to moderate multilevel cervical spondylosis. Uncovertebral and facet arthropathy contribute to neural foraminal narrowing at several levels. Intervertebral discs: Moderate disc space narrowing is noted at C5-C6. Only mild disc space narrowing is seen at the remaining cervical levels. Central canal: A posterior disc osteophyte complex at C5-C6 may contribute to mild acquired compromise of the central canal. Soft tissues: The prevertebral and paraspinous soft tissues are within normal limits. There is atherosclerotic calcification of the carotid bulbs. Calvarium: The visualized calvarium at the skull base appears intact. Brain parenchyma: Partially visualized brain parenchyma at the skull base is within normal limits. Sinuses and mastoids: The visualized paranasal sinuses are clear. The mastoid air cells are well pneumatized. Lung apices: Clear as visualized. IMPRESSION: 1. There is no evidence of fracture or subluxation involving the cervical spine. 2. Osteopenia and spondylotic change as above. ACT 112: Negative or not required by law. Electronically signed by: Noe Carrillo M.D. 12/29/2020 3:[address] 12/29/20 14:[address] DOSE: HISTORY: fall 1 week prior, xarelto, R sided pain TECHNIQUE: Multiaxial CT images of the maxillofacial region were performed and reformatted in the coronal plane without the use of contrast. A dose lowering technique was utilized adhering to the principles of ALARA. COMPARISON: None. FINDINGS: The visualized cervical spine, skull base, pterygoid plates, nasal bones, lamina papyracea, orbital floors, mandible, and zygomatic arches are intact. No fractures. The orbits are unremarkable. IMPRESSION: No fractures within the maxillofacial region. ACT 112: Negative or not required by law. Electronically signed by: Shan Hollingsworth M.D. 12/29/2020 3:[address] 12/29/20 14:[address] DOSE: 946.61 mGy.cm HISTORY: fall 1 week prior, xarelto, R sided pain TECHNIQUE: Multiaxial CT images of the head were performed without the use of intravenous contrast. Automated exposure control was utilized for this study. A dose lowering technique was utilized adhering to the principles of ALARA. Comparison: Head CT 12/02/2020. Findings: There is right frontal scalp swelling. There is mild motion artifact. Stable left lateral scalp nodule. The calvarium and skull base are intact. The ventricles and sulci are within normal limits. There is no mass, hematoma, midline shift, or acute infarct. Impression: No acute intracranial abnormality. Right frontal scalp injury. ACT 112: Negative or not required by law. Electronically signed by: Shan Hollingsworth M.D. 12/29/2020 3:04 PM Ankle X-Ray 12/29/20 14:08 XR hip RT 2V w pelvis, XR femur RT 2V routine, XR knee RT 3V, XR ankle RT min 3V routine CLINICAL HISTORY: fall 1 week prior, xarelto, R sided lower extremity pain COMPARISON STUDY: Pelvis 10/25/2020. FINDINGS: The bones are osteopenic. Lumbar spinal fusion hardware is partially visualized. There are bilateral total hip arthroplasties. The hardware is intact. There is a moderate knee effusion. There is also a right total knee arthroplasty. Mild periprosthetic lucency at the tibial component of the knee. This could represent loosening. Mild soft tissue swelling within the right ankle. No fractures or dislocation within the pelvis, right hip, right femur, right knee, or right ankle. Thickening and calcifications at the Achilles tendon consistent with a chronic tendinosis. There are plantar and posterior calcaneal spurs. IMPRESSION: 1. No fractures identified within the pelvis, right hip, right femur, right knee, right ankle. 2. Additional chronic changes as described above. ACT 112: Negative or not required by law. Electronically signed by: Shan Hollingsworth M.D. 12/29/2020 3:58 PM Femur X-Ray 12/29/20 14:08 XR hip RT 2V w pelvis, XR femur RT 2V routine, XR knee RT 3V, XR ankle RT min 3V routine CLINICAL HISTORY: fall 1 week prior, xarelto, R sided lower extremity pain COMPARISON STUDY: Pelvis 10/25/2020. FINDINGS: The bones are osteopenic. Lumbar spinal fusion hardware is partially visualized. There are bilateral total hip arthroplasties. The hardware is intact. There is a moderate knee effusion. There is also a right total knee arthroplasty. Mild periprosthetic lucency at the tibial component of the knee. This could represent loosening. Mild soft tissue swelling within the right ankle. No fractures or dislocation within the pelvis, right hip, right femur, right knee, or right ankle. Thickening and calcifications at the Achilles tendon consistent with a chronic tendinosis. There are plantar and posterior calcaneal spurs. IMPRESSION: 1. No fractures identified within the pelvis, right hip, right femur, right knee, right ankle. 2. Additional chronic changes as described above. ACT 112: Negative or not required by law. Electronically signed by: Shan Hollingsworth M.D. 12/29/2020 3:58 PM Hip/Pelvis X-Ray 12/29/20 14:08 XR hip RT 2V w pelvis, XR femur RT 2V routine, XR knee RT 3V, XR ankle RT min 3V routine CLINICAL HISTORY: fall 1 week prior, xarelto, R sided lower extremity pain COMPARISON STUDY: Pelvis 10/25/2020. FINDINGS: The bones are osteopenic. Lumbar spinal fusion hardware is partially visualized. There are bilateral total hip arthroplasties. The hardware is intact. There is a moderate knee effusion. There is also a right total knee arthroplasty. Mild periprosthetic lucency at the tibial component of the knee. This could represent loosening. Mild soft tissue swelling within the right ankle. No fractures or dislocation within the pelvis, right hip, right femur, right knee, or right ankle. Thickening and calcifications at the Achilles tendon consistent with a chronic tendinosis. There are plantar and posterior calcaneal spurs. IMPRESSION: 1. No fractures identified within the pelvis, right hip, right femur, right knee, right ankle. 2. Additional chronic changes as described above. ACT 112: Negative or not required by law. Electronically signed by: Shan Hollingsworth M.D. 12/29/2020 3:58 PM Knee X-Ray 12/29/20 14:08 XR hip RT 2V w pelvis, XR femur RT 2V routine, XR knee RT 3V, XR ankle RT min 3V routine CLINICAL HISTORY: fall 1 week prior, xarelto, R sided lower extremity pain COMPARISON STUDY: Pelvis 10/25/2020. FINDINGS: The bones are osteopenic. Lumbar spinal fusion hardware is partially visualized. There are bilateral total hip arthroplasties. The hardware is intact. There is a moderate knee effusion. There is also a right total knee a rthroplasty. Mild periprosthetic lucency at the tibial component of the knee. This could represent loosening. Mild soft tissue swelling within the right ankle. No fractures or dislocation within the pelvis, right hip, right femur, right knee, or right ankle. Thickening and calcifications at the Achilles tendon consistent with a chronic tendinosis. There are plantar and posterior calcaneal spurs. IMPRESSION: 1. No fractures identified within the pelvis, right hip, right femur, right knee, right ankle. 2. Additional chronic changes as described above. ACT 112: Negative or not required by law. Electronically signed by: Shan Hollingsworth M.D. 12/29/2020 3:58 PM Medications Administered Home Medications cyanocobalamin (vitamin B-12) 1,000 mcg/mL injection kit 1,000 mcg IM MONTHLY ea 02/04/18 [History Confirmed 12/29/20] multivitamin 1 tab PO QAM 09/19/18 [History Confirmed 12/29/20] cholecalciferol (vitamin D3) 25 mcg (1,000 unit) capsule (Vitamin D3) 1,000 unit PO QAM 07/29/19 [History Confirmed 12/29/20] atorvastatin 40 mg tablet 40 mg PO HS #90 tab 11/29/19 [Rx Confirmed 12/29/20] diltiazem HCl 120 mg capsule,24 hr,extended release (Taztia XT) 120 mg PO QAM #90 cap 04/06/20 [Rx Confirmed 12/29/20] insulin glargine 100 unit/mL (3 mL) subcutaneous pen (Lantus Solostar U-100 Insulin) 31 unit SQ HS #15 ml 06/08/20 [Rx Confirmed 12/29/20] dulaglutide 0.75 mg/0.5 mL subcutaneous pen injector (Trulicity) 0.75 mg SUBCUT WK #2 ml 06/20/20 [Rx Confirmed 12/29/20] rivaroxaban 20 mg tablet (Xarelto) 20 mg PO QAM 08/14/20 [History Confirmed 12/29/20] pantoprazole 40 mg tablet,delayed release 40 mg PO QAM #90 tab 09/07/20 [Rx Confirmed 12/29/20] calcium 600 mg capsule 600 mg PO DAILY 09/27/20 [History Confirmed 12/29/20] lisinopril 10 mg tablet 10 mg PO QAM #90 tab 10/09/20 [Rx Confirmed 12/29/20] acetaminophen 500 mg tablet (Tylenol Extra Strength) 1,000 mg PO TID PRN #90 tab 10/17/20 [Rx Confirmed 12/29/20] levothyroxine 25 mcg tablet 37.5 mcg PO QAM #135 tab 10/24/20 [Rx Confirmed 12/29/20] duloxetine 60 mg capsule,delayed release 60 mg PO QAM 10/25/20 [History Confirmed 12/29/20] gabapentin 600 mg tablet 300 mg PO BID #60 tab 10/25/20 [Rx Confirmed 12/29/20] glipizide 10 mg tablet 5 mg PO BID tab 10/25/20 [History Confirmed 12/29/20] buspirone 15 mg tablet 15 mg PO BID 10/30/20 [History Confirmed 12/29/20] diclofenac sodium 1 % topical gel (Voltaren Arthritis Pain) 2 g TOPICAL QID #2 g 11/03/20 [Rx Confirmed 12/29/20] lidocaine 5 % topical patch 1 patch TRANSDERMAL QAM #1 ea 11/03/20 [Rx Confirmed 12/29/20] tramadol 50 mg tablet (Ultram) 50 mg PO Q12H PRN #60 tab 11/29/20 [Rx Confirmed 12/29/20] naproxen 500 mg tablet,delayed release 500 mg PO BID #4 tab 12/14/20 [Rx Confirmed 12/29/20] fentanyl 25 mcg/hr transdermal patch 1 patch TRANSDERMAL Q72H 12/25/20 [History Confirmed 12/29/20] oxycodone 5 mg tablet See Rx Instructions PO Q4H PRN 12/25/20 [History Confirmed 12/29/20] meclizine 25 mg tablet 25 mg PO Q6H PRN #30 tab 12/28/20 [Rx Confirmed 12/29/20] ECG Additional Comments: Atrial-paced rhythm Abnormal ECG When compared with ECG of 28-OCT-2020 22:13, Electronic atrial pacemaker has replaced Sinus rhythm Confirmed by Damaso Mcfarlane ([id number]) on 12/03/2020 1:26:57 PM Code Status & VTE Plan Code Status CODE: FULL VTE: SCD's, Xeralto VTE Prophylaxis Plan VTE Prophylaxis will be ordered: Yes PG Care Time/CCT Total # of Minutes Spent Total Time Spent with Patient: Total time spent is greater than 50% in coordination of care (as documented) at patient's floor/unit and/or counseling patient: Coding Level of Care Code 58445 Initial Inpt Care Lvl 3 Diagnoses Knee pain M25.569 Recurrent falls R29.6 Diabetes mellitus type 2, uncontrolled E11.65 Glycemic state: with hyperglycemia Anemia D64.9 Thyroid disease E07.9 Metastatic breast cancer C50.919 Atrial fibrillation I48.91 Atrial fibrillation type: unspecified Gastroesophageal reflux disease K21.9 Esophagitis presence: esophagitis presence not specified Depression F32.9 Depression Type: unspecified Chronic pain G89.29 Anticoagulant long-term use Z79.01 (1) Atrial fibrillation Atrial fibrillation type: unspecified Qualified Code(s): I48.91 - Unspecified atrial fibrillation (2) Depression Depression Type: unspecified Qualified Code(s): F32.9 - Major depressive disorder, single episode, unspecified (3) Diabetes mellitus type 2, uncontrolled Glycemic state: with hyperglycemia Qualified Code(s): E11.65 - Type 2 diabetes mellitus with hyperglycemia (4) Gastroesophageal reflux disease Esophagitis presence: esophagitis presence not specified Qualified Code(s): K21.9 - Gastro-esophageal reflux disease without esophagitis
[2020-12-29] MEDS ORDERED: ONDANSETRON INJ 2 MG/ML 2 ML VIAL IV PRN (20:10)
[2020-12-29] MEDS ORDERED: POLYETHYLENE (MIRALAX) 17 GM PACK PO PRN (20:10)
[2020-12-29] MEDS ORDERED: MECLIZINE HCL 25 MG TAB PO PRN (20:29)
[2020-12-29] MEDS: oxyCODONE HCL IR 5 MG TAB (IMMEDIATE RELEASE) PO PRN (20:48)
[2020-12-29] MEDS: GABAPENTIN 600 MG TAB PO SCH (20:55)
[2020-12-29] MEDS: busPIRone 15 MG TAB PO SCH (20:55)
[2020-12-29] MEDS: INSULIN GLARGINE SOLOSTAR 100 UNITS/ML 3 ML PEN SQ SCH (20:59)
[2020-12-29] MEDS ORDERED: CARBOHYDRATES FOR HYPOGLYCEMIA PO PRN ×2 (21:10→21:15)
[2020-12-29] MEDS ORDERED: GLUCOSE 10 TABS/TUBE PO PRN (21:15)
[2020-12-29] MEDS ORDERED: GLUCOSE 40% GEL 15 GM TUBE PO PRN (21:15)
[2020-12-29] MEDS ORDERED: DEXTROSE 50% 50 ML SYRINGE IV PRN (21:15)
[2020-12-29] MEDS ORDERED: GLUCAGON FOR INJ 1 MG VIAL IM PRN (21:15)
[2020-12-29] MEDS ORDERED: PATIENT'S HEIGHT AND/OR WEIGHT NEEDED SCH (21:30)
[2020-12-29] MEDS: DICLOFENAC SOD 1% GEL 100 GM TUBE EXT PRN (23:07)
[2020-12-29] MEDS: ATORVASTATIN 40 MG TAB PO SCH (23:07)
[2020-12-29] MEDS: ACETAMINOPHEN 500 MG TAB PO PRN (23:11)
[2020-12-29] MEDS: MELATONIN 3 MG TAB PO PRN (23:13)
[2020-12-30] MEDS: oxyCODONE HCL IR 5 MG TAB (IMMEDIATE RELEASE) PO PRN ×4 (04:19→21:23)
[2020-12-30] MEDS: LEVOTHYROXINE SODIUM 25 MCG TABLET PO SCH (06:06)
[2020-12-30] MEDS: HEPARIN 100 UNIT/ML 5ML FLUSH FLUSH PRN (06:13)
[2020-12-30 06:39] LABS: Basophils # (auto) 0.02 K/uL (0-0.2); Basophils % (auto) 0.3 %; Eosinophils # (auto) 0.06 K/uL (0-0.5); Eosinophils % (auto) 0.9 %; Hemoglobin 8.8 g/dL (12.0-16.0); Lymphocytes # (auto) 0.64 K/uL (1.2-3.4); Lymphocytes % (auto) 9.1 %; Mean Corpuscular Hemoglobin 28.9 pg (25-34); Mean Corpuscular Hgb Conc 31.4 g/dL (32-36); Mean Corpuscular Volume 92.1 fL (80-100); Mean Platelet Volume 10.6 fL (7.4-10.4); Monocytes # (auto) 0.81 K/uL (0.11-0.59); Monocytes % (auto) 11.5 %; Neutrophils # (auto) 5.49 K/uL (1.4-6.5); Neutrophils % (auto) 78.2 %; Platelet Count 316 K/uL (130-400); RDW Coefficient of Variation 16.6 % (11.5-14.5); RDW Standard Deviation 55.7 fL (36.4-46.3); Red Blood Count 3.04 M/uL (4.2-5.4); White Blood Count 7.02 K/uL (4.8-10.8)
[2020-12-30 07:31] LABS: BUN Creatinine Ratio 26.5 (10-20); Calcium 8.3 mg/dl (8.5-10.1); Creatinine Clr Calc Pharmacy 104.9 ml/min; Est GFR (African American) 112.1 ml/min; Est GFR (Non-African American) 96.7 ml/min; Magnesium 2.2 mg/dl (1.8-2.4); Potassium 3.8 mmol/L (3.5-5.1)
--- NOTE | 2020-12-30 08:28 | Orthopedic Consultation ---
Date of Consultation December 30, 2020 Assessment & Plan (1) Effusion of knee joint right: Patient was evaluated in her room. She does take Xarelto daily for her atrial fibrillation. There is a moderate knee effusion, but nothing that requires aspiration at this point. Ligaments are stable. I find no evidence for fracture, quadriceps tendon rupture, patellar tendon rupture, or patellar dislocation. She has fairly extensive ecchymosis. She will benefit from working with physical therapy and may require placement after discharge from the hospital to improve her strength and balance. Patient states she falls frequently and has fear of falling again. She does use a walker. After reviewing her films, I am not convinced that she truly has loosening of her tibial prosthesis. She does see Dr. Huang for orthopedic care. I did speak with him this morning. She may follow-up with him on an outpatient basis upon discharge from the hospital. She will benefit from some external compression using an Anant wrap, along with ice and elevation for edema control. We will continue to follow her while she is admitted to the hospital. Will place in knee immobilizer for ambulation and comfort, no more than 1 week use. Patient was taught quad sets and will work on ROM as tolerated. BERENICE. I, Dr. Freitas, saw and examined the patient and discussed the management with my PA. I reviewed my PAs note and agree with the documented findings and the plan of care I developed. History of Present Illness Reason for Consultation: Fall, right knee pain Requesting Physician: Dr. Freitas covering for Dr. Huang Attending Physician: Makenna Rodriguez MD History of Present Illness This 70-year-old female with a history of frequent falls, anemia, metastatic breast cancer, osteoarthritis, diabetes, atrial flutter, aortic valve stenosis, thyroid disease, atrial fibrillation, hypothyroidism, obstructive sleep apnea, lumbar radiculopathy, GERD, depression, and arthritis, presented through the ED after falling at home. Patient states she tripped on her feet and fell onto her right side. She had immediate onset of pain in her right leg. There was no loss of conscious. She was unable to ambulate secondary to her right knee pain. Imaging studies obtained in the ED showed no intracranial injury, no cervical spine injury, and no injury of her femur or ankle. Her right knee films showed an effusion and possible loosening of her tibial prosthesis. She was admitted to the hospitalist service and orthopedics was consulted for evaluation. Allergies Allergy/AdvReac Type Severity Reaction Status Date / Time metformin AdvReac Severe Unknown Verified 12/29/20 16:24 Home Medications Medication Instructions Recorded Confirmed Type cyanocobalamin (vitamin B-12) 1,000 mcg IM MONTHLY ea 02/04/18 12/29/20 History 1,000 mcg/mL injection kit multivitamin 1 tab PO QAM 02/04/18 12/29/20 History cholecalciferol (vitamin D3) 25 1,000 unit PO QAM 07/29/19 12/29/20 History mcg (1,000 unit) capsule (Vitamin D3) atorvastatin 40 mg tablet 40 mg PO HS #90 tab 11/29/19 12/29/20 Rx diltiazem HCl 120 mg capsule,24 120 mg PO QAM #90 cap 04/06/20 12/29/20 Rx hr,extended release (Taztia XT) insulin glargine 100 unit/mL (3 31 unit SQ HS #15 ml 06/08/20 12/29/20 Rx mL) subcutaneous pen (Lantus Solostar U-100 Insulin) dulaglutide 0.75 mg/0.5 mL 0.75 mg SUBCUT WK #2 ml 06/20/20 12/29/20 Rx subcutaneous pen injector (Trulicity) rivaroxaban 20 mg tablet (Xarelto) 20 mg PO QAM 08/14/20 12/29/20 History pantoprazole 40 mg tablet,delayed 40 mg PO QAM #90 tab 09/07/20 12/29/20 Rx release calcium 600 mg capsule 600 mg PO DAILY 09/27/20 12/29/20 History lisinopril 10 mg tablet 10 mg PO QAM #90 tab 10/09/20 12/29/20 Rx acetaminophen 500 mg tablet 1,000 mg PO TID PRN #90 tab 10/17/20 12/29/20 Rx (Tylenol Extra Strength) levothyroxine 25 mcg tablet 37.5 mcg PO QAM #135 tab 10/24/20 12/29/20 Rx duloxetine 60 mg capsule,delayed 60 mg PO QAM 10/25/20 12/29/20 History release gabapentin 600 mg tablet 300 mg PO BID #60 tab 10/25/20 12/29/20 Rx glipizide 10 mg tablet 5 mg PO BID tab 10/25/20 12/29/20 History buspirone 15 mg tablet 15 mg PO BID 10/30/20 12/29/20 History diclofenac sodium 1 % topical gel 2 g TOPICAL QID #2 g 11/03/20 12/29/20 Rx (Voltaren Arthritis Pain) lidocaine 5 % topical patch 1 patch TRANSDERMAL QAM #1 ea 11/03/20 12/29/20 Rx tramadol 50 mg tablet (Ultram) 50 mg PO Q12H PRN #60 tab 11/29/20 12/29/20 Rx naproxen 500 mg tablet,delayed 500 mg PO BID #4 tab 12/14/20 12/29/20 Rx release fentanyl 25 mcg/hr transdermal 1 patch TRANSDERMAL Q72H 12/25/20 12/29/20 History patch oxycodone 5 mg tablet See Rx Instructions PO Q4H PRN 12/25/20 12/29/20 History meclizine 25 mg tablet 25 mg PO Q6H PRN #30 tab 12/28/20 12/29/20 Rx Patient History Medical History Anxiety Aortic stenosis Mild AV stenosis per 12/2019 ECHO. (MERLENE= 1.6cm2; AV mean gradient= 7.8mmHg; AV max velocity= 1.939 m/s) Atrial fibrillation hx Atrial flutter hx Bilateral hip bursitis Cervical spine disease Chronic anemia Chronic pain Degenerative disc disease Depression Diabetes mellitus, type 2 IDDM Gastroesophageal reflux disease Hx of cardiac pacemaker [facility]. [employer] device. follows with Dr Ramires Hx of tachycardia-bradycardia syndrome reason for pacemaker Hypercholesterolemia Hypothyroidism Infiltrating ductal carcinoma of left breast Initially dx'ed in 2015- s/p lumpectomy, XRT and anastrozole Metastatic breast cancer March 2020 Knee pain Liver mass Pt denies but 05/17/20 PET scan shows 2.5 right hepatic lobe mass consistent with known hepatic metastasis Metastatic lung carcinoma Obstructive sleep apnea does not wear machine Peripheral neuropathy Surgical History H/O bilateral hip replacements History of section History of colonoscopy History of evacuation of hematoma (08/30/13) Hematoma right breast and right chest 08/31/13 Dr. Shah History of total knee arthroplasty bilateral Port-A-Cath in place (06/13/20) Insertion of Mediport Right Subclavian Dr. Shah 06/13/2020 Status post appendectomy Status post arthroscopy of left shoulder Status post gastric bypass for obesity Status post laparoscopic cholecystectomy Status post lumbar spine surgery for decompression of spinal cord Status post panniculectomy Status post partial mastectomy of left breast Status post placement of cardiac pacemaker Status post repair of ventral hernia Status post total abdominal hysterectomy and bilateral salpingo-oophorectomy Status post total hip replacement, bilateral Family History Unknown Breast cancer Emphysema lung Mother Diabetes Heart disease Father Heart disease Other No family history of adverse response to anesthesia Denies family history of Ovarian cancer Prostate cancer Coronary heart disease Colorectal cancer Social History Smoking Status: Former smoker Tobacco Type: Cigarettes packs per day: 2; Second Hand Exposure: Yes; Hx Alcohol Use: No Hx Substance Use: No Preferred Language: Yoruba Communication Ability: Effective Hearing Ability: Normal 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 Appraiser Required: No Beliefs That Will Affect Care: None marital status: Current Living Situation: Spouse current occupational status: retired Other Information That Helps Us Care for You: No Feels Safe at Home: Yes Safety Concerns: Feels Safe At This Time Childhood Exposure to Second-Hand Smoke: Yes caffeine: Yes Dental Care, Regularly: No Physical Activity Frequency: 1-2 Times per Week Seatbelt Use: always Sunscreen Use: No Assistive Devices: Denture - Upper, Denture - Lower, Glasses and Walker Review of Systems Review of Systems: All systems reviewed & are unremarkable except as noted in HPI & below Physical Exam Physical Exam: General: Well-developed, well-nourished, elderly white female, in no acute distress. Laying in bed watching television. Alert and oriented. Conversive. Skin: Warm dry with good turgor. No rashes or lesions. She does have a significant ecchymosis present on her right forehead, left forehead, upper extremities, right knee, right calf, and left valero. No open wounds. No abrasions. She has a moderate intra-articular effusion in the right knee. No warmth. Well-healed surgical scars present on her knees. Musculoskeletal: Patient has intact motor function to her upper extremities. No discomfort with motion of her shoulders, elbows, wrist. Left leg evaluation reveals supple motion of her hip, knee, and ankle, without discomfort. Right leg evaluation reveals supple motion of her hip without discomfort. Patient has significant discomfort with palpation around her knee, as well as passive motion of her knee. She has full terminal extension. ROM 0-30 degrees. Stable collateral ligaments. She does get increased discomfort with stressing of the M CL. She is able to set her quad. She can do a straight leg raise with minimal assistance. Intact motor function of her ankle. Dorsiflexion of her ankle causes discomfort in her proximal gastroc. No pain with palpation over her foot. Neurologic: Gross sensation is intact across her upper and lower extremities by soft touch. Peripheral pulses are 2+. Results & Data ([facility] [place]) Vital Signs (Past 12 Hours) Vital Signs Temp Pulse Resp BP Pulse Ox 12/29/20 23:00 37.1 C 91 H 16 148/71 H 97 Diagnostic Findings Radiographic imaging previously obtained earlier were reviewed by [facility] & Dr. Freitas. It has been read by radiology. CT scan of the cervical spine shows no evidence of fracture or subluxation. She does have osteopenia as well as arthritic changes. Ankle films obtained earlier show no evidence of fracture. Femoral films previously obtained show no fracture. She has bilateral total hip arthroplasties. No evidence of loosening. Hip and pelvis films obtained no evidence of fracture. No evidence of loosening in her total hip arthroplasties. Right knee films show a right total knee arthroplasty with possible periprosthetic lucency at the tibial component. This does not appear acute. Moderate intra-articular effusion is noted.
[2020-12-30] MEDS ORDERED: PANTOprazole 40 MG TAB PO SCH (09:00)
--- NOTE | 2020-12-30 09:11 | Hospitalist Progress Note ---
Date of Service December 30, 2020 Assessment & Plan (1) Knee pain: Plan: s/p stated mechanical fall Right knee pain with ecchymosis and swelling, not erythemic but was warm on examination today With limited ROM Xray without fracture but noted mild periprosthetic lucency at the tibial component of the knee felt possibly representing hardware loosing Ortho consulted -- seen this morning. RICE/conservative treatment and continued monitoring. No further imaging at this time. Recs for PT/OT and immobilizer for 1 week for stability. Continue pain control -- states controlled at this time (2) Recurrent falls: Plan: As above- evaluate knee, evaluate her functionality, assess for rehab CT Head without acute CVA (R frontal scalp injury) CT face no acute fractures CT cervical spine without fx or subluxation. osteopenia and spondylotic changes noted Ankle, Femur, Hip (RIGHT) - No fractures identified within the pelvis, right hip, right femur, right knee, right ankle. Additional chronic changes as described above. CXR mild cardiomegaly, unchanged. No acute process (most recent ECHO 12/2019 prior to dx for ca and chemo therapy, consider repeating given falls/dizziness) Also checking B12 (just got her injection), phos, mag, Vit D, B1, iron studies given hx anemia and possible contribution Check Urine -- previously seen by PCP in past month for urinary symptoms and was treated with Macrobid Will also check brain MRI given patient with breast ca with known mets to liver (to have repeat PET scan Feb 08) PT/OT consults as above -- likely need for SNF (wanting [facility] care, recent disc harge from them last Friday) Also asked RN to check set of orthostatic VS given + in past admission for myself in October, IVF if needed (slight dehydration but tolerated PO but noted some abd discomfort/nausea) Of note, also takes meclizine 25mg as needed for dizziness -- ?consider accumulation contributing to her "mental fog" as well (3) Diabetes mellitus type 2, uncontrolled: Plan: Continue lantus BSGs controlled Continue to monitor (4) Anemia: Plan: Chronic, however see above under recurrent falls Just got her B12 injection, B12 level previously added >2000 Folate >20 Iron studies obtained --> Iron low at 20, TIBC 264, transferrin 218, transferrin % sat low at 7, ferritin 97.3 --> Ordered dose venofer x 1 today and will repeat tomorrow. Consider completing 3 doses while inpatient Continue to monitor CBC (5) Thyroid disease: Plan: Last TSH 2.20 October 2020 Continue levothyroxine 37.5mg daily (6) Metastatic breast cancer: Plan: Diagnosed MAR 2020, Initialy diagnosed with 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 - Was treated with Abraxane x6 cycles- last cycle was held in October 2020 Plans for repeat PET Jan as above -- MRI of brain w/wo given recurrent falls/nausea/dizziness as above (7) Atrial fibrillation: Plan: with Pacer due to tachy-monica syndrome - MODE AAIR with mode switch to DDDR Continue Diltiazem 240 XL daily HR currently 90bpm, but appears irregular. Will obtain EKG but does endorse any palpitations at current . No chest pain reported (8) Gastroesophageal reflux disease: Plan: Continue Protonix 40mg daily Consider increased to BID if needed given just eaten sauce with reflux type symptoms reported ??Naproxen listed on her med rec -- patient DENIES USING ANY ALEEVE OR NAPROXEN Add lipase to labs given prior CT with stone in cystic duct s/p han (9) Depression: Plan: Continue Duloxetine (10) Chronic pain: Plan: Patient on multiple agents - Fentanyl patch on hold patient says she uses this PRN - Keep oral narcotic for severe pain Oxy 5 - Continue with Lidoderm patches - Hold Voltaren gel - Continue Tramadol (11) Anticoagulant long-term use: Plan: On Xarelto for her Afib - Warranted discussion with her falls and need for chronic anticoagulation use Plan: Dispo: continued inpatient stay treatment as above likely rehab at discharge. CM to follow -- patient agreeable for [facility] Admission and Anticipated Discharge Date Admission Date: December 29, 2020 Supervising Physician Co-Signing Physician Notes PA Supervision Note: I did not personally see or examine the patient today, but I verified all edwards points of AZEEM Rene's assessment and plan with the following exceptions/additions: None Subjective Seen in afternoon. Pain controlled with her usual regimen alternating OxyContin/Tylenol and this is continued. No issues with moving her bowels. Had been home from rehab since last Friday and was attempting to throw something up onto bed and tripped on walker. She reports dizziness and mind fog at times and attributes this to chemo (completed chemo and awaiting PET Feb 08 this year to see if continues to improve -- has known liver metastasis) and her neuropathy, however discussed low iron stores and replacement as ordered. She does endorse shortness of breath with exertion at times but has been in and out of rehab and the hospital and felt more related to deconditioning. No chest pain or increased palpitations. She did just eat lunch with pasta with red sauce and notes she typically limits sauce at home because of reflux. Feeling slightly nauseous with abd cramping (currently getting iron IV), but continues to move her bowels without difficulty. No vomiting reported or hematuria/melena or hematochezia. She notes weakness in her legs and frequent falls. Hx vertigo and meclizine prn however denied any dizziness/LOC for current fall. Ortho saw this morning and no tap at this time but will continue to monitor. They discussed placement of an immobilizer for the next week to help with stability. Checking other electrolytes as well as a urine given previous suspected UTI by PCP and was treated with Macrobid as unable to produce urine sample. No fever, chills, chest pain. Anxious about rehab but knows this will be beneficial. She states "I'm in no hurry for discharge, I need to stay as long as needed to get better". Discussed will eval daily and likely to remain inpatient as on a weekend and unlikely to get bed/insurance auth over the weekend and could maybe consider Friday. She notes "probably Friday would be better". Review of Systems Review of Systems: All systems reviewed & are unremarkable except as noted in HPI & below Physical Exam Physical Exam: PHYSICAL EXAM: General: awake, alert, no apparent distress sitting up in bed watching TV. Skin: bruising to right face, cheek, neck (R>L), b/l UE, R knee/calf, L valero. b/l surgical scars to knees ENT: PERRL, EOMI, no pharyngeal exudate, mucous membranes moist Neuro/MSK: AAO x 3, speech clear and appropriate, strength intact bilaterally 5/5 bilateral upper extremities. sensation intact. RIGHT knee swollen, tender to touch with ecchymosis. tender to lateral and medial knee with 30 degree ROM (increased discomfort with such) with intra-articular effusion. pulses are palpable and patient with equal strength plantar/dorsiflexion although she is with increased pain with dorsiflexion of R ankle. straight leg with minimal assistance. No obvious clonus, but difficult to assess Chest: L sided pacemaker, s/p L lumpectomy CV: irregularly irregular, no m/r/g, 90bpm (via electronic stethoscope) GI: +BS, soft, minimally tender throughout, although worse upper abdomen, no guarding or rigidity Resp: no acute distress, not tachypneic, on room air. lungs diminished but clear, no obvious wheezing or rhonchi appreciated : no fuentes Psych: AOx3, forgetful at times with word finding (states chronic), but able to find eventually with time Results & Data Results & Data ([facility]) Vital Signs (Past 12 Hours) Vital Signs Temp Pulse Resp BP Pulse Ox 12/29/20 23:00 37.1 C 91 H 16 148/71 H 97 Laboratory Results 12/30/20 12/30/20 12/30/20 Range/Units 07:50 06:07 06:07 WBC 7.02 (4.8-10.8) K/uL RBC 3.04 L (4.2-5.4) M/uL Hgb 8.8 L (12.0-16.0) g/dL Hct 28.0 L (37-47) % MCV 92.1 (80-100) fL MCH 28.9 (25-34) pg MCHC 31.4 L (32-36) g/dL RDW Std Deviation 55.7 H (36.4-46.3) fL RDW Coeff of Thompson 16.6 H (11.5-14.5) % Plt Count 316 (130-400) K/uL MPV 10.6 H (7.4-10.4) fL Immature Gran % (Auto) 0.0 % Neut % (Auto) 78.2 % Lymph % (Auto) 9.1 % [place] % (Auto) 11.5 % Eos % (Auto) 0.9 % Baso % (Auto) 0.3 % Neut # (Auto) 5.49 (1.4-6.5) K/uL Lymph # (Auto) 0.64 L (1.2-3.4) K/uL [place] # (Auto) 0.81 H (0.11-0.59) K/uL Eos # (Auto) 0.06 (0-0.5) K/uL Baso # (Auto) 0.02 (0-0.2) K/uL Immature Gran # (Auto) 0.00 (0.00-0.02) K/uL PT (9.0-12.0) Seconds INR (0.9-1.1) Sodium 136 (136-145) mmol/L Potassium 3.8 (3.5-5.1) mmol/L Chloride 104 (98-107) mmol/L Carbon Dioxide 26 (21-32) mmol/L Anion Gap 6.0 (3-11) BUN 13 (7-18) mg/dl Creatinine 0.50 L (0.6-1.2) mg/dl Est Cr Clr Drug Dosing 104.9 Est GFR ( Amer) 112.1 ml/min Est GFR (Non-Af Amer) 96.7 ml/min BUN/Creatinine Ratio 26.5 H (10-20) Glucose 156 H (70-99) mg/dl POC Glucose 134 H (70-99) mg/dl Calcium 8.3 L (8.5-10.1) mg/dl Magnesium 2.2 (1.8-2.4) mg/dl COVID-19 Eval Order SARS-CoV-2 (PCR) (Negative) 12/29/20 12/29/20 12/29/20 Range/Units 19:54 16:55 16:55 WBC (4.8-10.8) K/uL RBC (4.2-5.4) M/uL Hgb (12.0-16.0) g/dL Hct (37-47) % MCV (80-100) fL MCH (25-34) pg MCHC (32-36) g/dL RDW Std Deviation (36.4-46.3) fL RDW Coeff of Thompson (11.5-14.5) % Plt Count (130-400) K/uL MPV (7.4-10.4) fL Immature Gran % (Auto) % Neut % (Auto) % Lymph % (Auto) % [place] % (Auto) % Eos % (Auto) % Baso % (Auto) % Neut # (Auto) (1.4-6.5) K/uL Lymph # (Auto) (1.2-3.4) K/uL [place] # (Auto) (0.11-0.59) K/uL Eos # (Auto) (0-0.5) K/uL Baso # (Auto) (0-0.2) K/uL Immature Gran # (Auto) (0.00-0.02) K/uL PT (9.0-12.0) Seconds INR (0.9-1.1) Sodium (136-145) mmol/L Potassium (3.5-5.1) mmol/L Chloride (98-107) mmol/L Carbon Dioxide (21-32) mmol/L Anion Gap (3-11) BUN (7-18) mg/dl Creatinine (0.6-1.2) mg/dl Est Cr Clr Drug Dosing Est GFR ( Amer) ml/min Est GFR (Non-Af Amer) ml/min BUN/Creatinine Ratio (10-20) Glucose (70-99) mg/dl POC Glucose 101 H (70-99) mg/dl Calcium (8.5-10.1) mg/dl Magnesium (1.8-2.4) mg/dl COVID-19 Eval Order Covid19 at [facility] SARS-CoV-2 (PCR) NEGATIVE (Negative) 12/29/20 12/29/20 12/29/20 Range/Units 14:10 14:10 14:10 WBC 10.10 (4.8-10.8) K/uL RBC 3.12 L (4.2-5.4) M/uL Hgb 9.1 L (12.0-16.0) g/dL Hct 28.8 L (37-47) % MCV 92.3 (80-100) fL MCH 29.2 (25-34) pg MCHC 31.6 L (32-36) g/dL RDW Std Deviation 55.6 H (36.4-46.3) fL RDW Coeff of Thompson 16.7 H (11.5-14.5) % Plt Count 318 (130-400) K/uL MPV 10.1 (7.4-10.4) fL Immature Gran % (Auto) 0.1 % Neut % (Auto) 76.5 % Lymph % (Auto) 13.7 % [place] % (Auto) 9.6 % Eos % (Auto) 0.1 % Baso % (Auto) 0.0 % Neut # (Auto) 7.73 H (1.4-6.5) K/uL Lymph # (Auto) 1.38 (1.2-3.4) K/uL [place] # (Auto) 0.97 H (0.11-0.59) K/uL Eos # (Auto) 0.01 (0-0.5) K/uL Baso # (Auto) 0.00 (0-0.2) K/uL Immature Gran # (Auto) 0.01 (0.00-0.02) K/uL PT 14.1 H (9.0-12.0) Seconds INR 1.4 H (0.9-1.1) Sodium 135 L (136-145) mmol/L Potassium 4.3 (3.5-5.1) mmol/L Chloride 102 (98-107) mmol/L Carbon Dioxide 27 (21-32) mmol/L Anion Gap 6.0 (3-11) BUN 13 (7-18) mg/dl Creatinine 0.53 L (0.6-1.2) mg/dl Est Cr Clr Drug Dosing Not Reportable Est GFR ( Amer) 109.9 ml/min Est GFR (Non-Af Amer) 94.9 ml/min BUN/Creatinine Ratio 24.8 H (10-20) Glucose 166 H (70-99) mg/dl POC Glucose (70-99) mg/dl Calcium 8.6 (8.5-10.1) mg/dl Magnesium (1.8-2.4) mg/dl COVID-19 Eval Order SARS-CoV-2 (PCR) (Negative) Diagnostic Findings Cervical Spine CT 12/29/20 14:07 CT SCAN OF THE CERVICAL SPINE CLINICAL HISTORY: Trauma. Fall one week ago. COMPARISON STUDY: CT of the cervical spine dated 12/02/2020. TECHNIQUE: CT scan of the cervical spine is performed from the skull base to the upper thoracic spine. Images are reviewed in the axial, sagittal, and coronal planes. IV contrast was not administered for this examination. A dose lowering technique was utilized adhering to the principles of ALARA. FINDINGS: Skeletal structures: The skeletal structures are osteopenic. There is no evidence of fracture or subluxation involving the cervical spine. Vertebral body height is maintained. There is minimal anterolisthesis at C5-C6. Alignment is otherwise preserved. There is straightening of the cervical lordosis. Anterior osteophytes are seen throughout. The odontoid process and lateral masses are intact. The atlantoaxial articulation is preserved noting advanced productive degenerative change. The spinous processes appear intact. There is mild to moderate multilevel cervical spondylosis. Uncovertebral and facet arthropathy contribute to neural foraminal narrowing at several levels. Intervertebral discs: Moderate disc space narrowing is noted at C5-C6. Only mild disc space narrowing is seen at the remaining cervical levels. Central canal: A posterior disc osteophyte complex at C5-C6 may contribute to mild acquired compromise of the central canal. Soft tissues: The prevertebral and paraspinous soft tissues are within normal limits. There is atherosclerotic calcification of the carotid bulbs. Calvarium: The visualized calvarium at the skull base appears intact. Brain parenchyma: Partially visualized brain parenchyma at the skull base is within normal limits. Sinuses and mastoids: The visualized paranasal sinuses are clear. The mastoid air cells are well pneumatized. Lung apices: Clear as visualized. IMPRESSION: 1. There is no evidence of fracture or subluxation involving the cervical spine. 2. Osteopenia and spondylotic change as above. ACT 112: Negative or not required by law. Electronically signed by: Noe Carrillo M.D. 12/29/2020 3:[address] 12/29/20 14:[address] DOSE: HISTORY: fall 1 week prior, xarelto, R sided pain TECHNIQUE: Multiaxial CT images of the maxillofacial region were performed and reformatted in the coronal plane without the use of contrast. A dose lowering technique was utilized adhering to the principles of ALARA. COMPARISON: None. FINDINGS: The visualized cervical spine, skull base, pterygoid plates, nasal bones, lamina papyracea, orbital floors, mandible, and zygomatic arches are intact. No fractures. The orbits are unremarkable. IMPRESSION: No fractures within the maxillofacial region. ACT 112: Negative or not required by law. Electronically signed by: Shan Hollingsworth M.D. 12/29/2020 3:[address] 12/29/20 14:[address] DOSE: 946.61 mGy.cm HISTORY: fall 1 week prior, xarelto, R sided pain TECHNIQUE: Multiaxial CT images of the head were performed without the use of intravenous contrast. Automated exposure control was utilized for this study. A dose lowering technique was utilized adhering to the principles of ALARA. Comparison: Head CT 12/02/2020. Findings: There is right frontal scalp swelling. There is mild motion artifact. Stable left lateral scalp nodule. The calvarium and skull base are intact. The ventricles and sulci are within normal limits. There is no mass, hematoma, midline shift, or acute infarct. Impression: No acute intracranial abnormality. Right frontal scalp injury. ACT 112: Negative or not required by law. Electronically signed by: Shan Hollingsworth M.D. 12/29/2020 3:04 PM Ankle X-Ray 12/29/20 14:08 XR hip RT 2V w pelvis, XR femur RT 2V routine, XR knee RT 3V, XR ankle RT min 3V routine CLINICAL HISTORY: fall 1 week prior, xarelto, R sided lower extremity pain COMPARISON STUDY: Pelvis 10/25/2020. FINDINGS: The bones are osteopenic. Lumbar spinal fusion hardware is partially visualized. There are bilateral total hip arthroplasties. The hardware is intact. There is a moderate knee effusion. There is also a right total knee arthroplasty. Mild periprosthetic lucency at the tibial component of the knee. This could represent loosening. Mild soft tissue swelling within the right ankle. No fractures or dislocation within the pelvis, right hip, right femur, right knee, or right ankle. Thickening and calcifications at the Achilles tendon consistent with a chronic tendinosis. There are plantar and posterior calcaneal spurs. IMPRESSION: 1. No fractures identified within the pelvis, right hip, right femur, right knee, right ankle. 2. Additional chronic changes as described above. ACT 112: Negative or not required by law. Electronically signed by: Shan Hollingsworth M.D. 12/29/2020 3:58 PM Femur X-Ray 12/29/20 14:08 XR hip RT 2V w pelvis, XR femur RT 2V routine, XR knee RT 3V, XR ankle RT min 3V routine CLINICAL HISTORY: fall 1 week prior, xarelto, R sided lower extremity pain COMPARISON STUDY: Pelvis 10/25/2020. FINDINGS: The bones are osteopenic. Lumbar spinal fusion hardware is partially visualized. There are bilateral total hip arthroplasties. The hardware is intact. There is a moderate knee effusion. There is also a right total knee arthroplasty. Mild periprosthetic lucency at the tibial component of the knee. This could represent loosening. Mild soft tissue swelling within the right ankle. No fractures or dislocation within the pelvis, right hip, right femur, right knee, or right ankle. Thickening and calcifications at the Achilles tendon consistent with a chronic tendinosis. There are plantar and posterior calcaneal spurs. IMPRESSION: 1. No fractures identified within the pelvis, right hip, right femur, right knee, right ankle. 2. Additional chronic changes as described above. ACT 112: Negative or not required by law. Electronically signed by: Shan Hollingsworth M.D. 12/29/2020 3:58 PM Hip/Pelvis X-Ray 12/29/20 14:08 XR hip RT 2V w pelvis, XR femur RT 2V routine, XR knee RT 3V, XR ankle RT min 3V routine CLINICAL HISTORY: fall 1 week prior, xarelto, R sided lower extremity pain COMPARISON STUDY: Pelvis 10/25/2020. FINDINGS: The bones are osteopenic. Lumbar spinal fusion hardware is partially visualized. There are bilateral total hip arthroplasties. The hardware is intact. There is a moderate knee effusion. There is also a right total knee arthroplasty. Mild periprosthetic lucency at the tibial component of the knee. This could represent loosening. Mild soft tissue swelling within the right ankle. No fractures or dislocation within the pelvis, right hip, right femur, right knee, or right ankle. Thickening and calcifications at the Achilles tendon consistent with a chronic tendinosis. There are plantar and posterior calcaneal spurs. IMPRESSION: 1. No fractures identified within the pelvis, right hip, right femur, right knee, right ankle. 2. Additional chronic changes as described above. ACT 112: Negative or not required by law. Electronically signed by: Shan Hollingsworth M.D. 12/29/2020 3:58 PM Knee X-Ray 12/29/20 14:08 XR hip RT 2V w pelvis, XR femur RT 2V routine, XR knee RT 3V, XR ankle RT min 3V routine CLINICAL HISTORY: fall 1 week prior, xarelto, R sided lower extremity pain COMPARISON STUDY: Pelvis 10/25/2020. FINDINGS: The bones are osteopenic. Lumbar spinal fusion hardware is partially visualized. There are bilateral total hip arthroplasties. The hardware is intact. There is a moderate knee effusion. There is also a right total knee arthroplasty. Mild periprosthetic lucency at the tibial component of the knee. This could represent loosening. Mild soft tissue swelling within the right ankle. No fractures or dislocation within the pelvis, right hip, right femur, right knee, or right ankle. Thickening and calcifications at the Achilles tendon consistent with a chronic tendinosis. There are plantar and posterior calcaneal spurs. IMPRESSION: 1. No fractures identified within the pelvis, right hip, right femur, right knee, right ankle. 2. Additional chronic changes as described above. ACT 112: Negative or not required by law. Electronically signed by: Shan Hollingsworth M.D. 12/29/2020 3:58 PM Chest X-Ray 12/30/20 09:04 XR chest 1V portable HISTORY: Fall. COMPARISON: Chest 12/01/2020. FINDINGS: No pneumothorax. No pleural effusions. The heart remains mildly enlarged. There is a left-sided dual-chamber pacemaker. Right subclavian Port-A-Cath terminates at the distal SVC. There is a left shoulder prosthesis again noted. No new focal lung consolidations to suggest pneumonia. No evidence for pulmonary edema. IMPRESSION: Mild cardiomegaly, unchanged. Otherwise, no acute process within the chest. ACT 112: Negative or not required by law. Electronically signed by: Shan Hollingsworth M.D. 12/30/2020 9:54 AM PG Care Time/CCT Total # of Minutes Spent Total Time Spent with Patient: Total time spent is greater than 50% in coordination of care (as documented) at patient's floor/unit and/or counseling patient: Coding Level of Care Code 18747 Subseq Hosp Care Lvl 3 Diagnoses Knee pain M25.569 Recurrent falls R29.6 Diabetes mellitus type 2, uncontrolled E11.65 Glycemic state: with hyperglycemia Anemia D64.9 Thyroid disease E07.9 Metastatic breast cancer C50.919 Atrial fibrillation I48.91 Atrial fibrillation type: unspecified Gastroesophageal reflux disease K21.9 Esophagitis presence: esophagitis presence not specified Depression F32.9 Depression Type: unspecified Chronic pain G89.29 Anticoagulant long-term use Z79.01 (1) Atrial fibrillation Atrial fibrillation type: unspecified Qualified Code(s): I48.91 - Unspecified atrial fibrillation (2) Depression Depression Type: unspecified Qualified Code(s): F32.9 - Major depressive disorder, single episode, unspecified (3) Diabetes mellitus type 2, uncontrolled Glycemic state: with hyperglycemia Qualified Code(s): E11.65 - Type 2 diabetes mellitus with hyperglycemia (4) Gastroesophageal reflux disease Esophagitis presence: esophagitis presence not specified Qualified Code(s): K21.9 - Gastro-esophageal reflux disease without esophagitis
[2020-12-30] MEDS: GABAPENTIN 600 MG TAB PO SCH ×2 (09:21→21:25)
[2020-12-30] MEDS: DULoxetine HCL 60 MG CAP PO SCH (09:21)
[2020-12-30] MEDS: CHOLECALCIFEROL 1,000 UNITS 25 MCG TAB PO SCH (09:21)
[2020-12-30] MEDS: RIVAROXABAN 20 MG TAB PO SCH (09:21)
[2020-12-30] MEDS: dilTIAZem ER 120 MG CAPCR PO SCH (09:21)
[2020-12-30] MEDS: CALCIUM CARBONATE 1250MG TAB PO SCH (09:22)
[2020-12-30] MEDS: busPIRone 15 MG TAB PO SCH ×2 (09:22→21:24)
[2020-12-30] MEDS: lisinopril 10 MG TAB PO SCH (09:23)
[2020-12-30] MEDS: LIDOCAINE 5% 1 PATCH TD SCH (09:38)
[2020-12-30] MEDS: INSULIN ASPART 100 UNITS/ML 3 ML PEN SC SCH ×4 (09:38→21:24)
--- NOTE | 2020-12-30 09:56 | XRay Report ---
XR chest 1V portable HISTORY: Fall. COMPARISON: Chest 12/01/2020. FINDINGS: No pneumothorax. No pleural effusions. The heart remains mildly enlarged. There is a left-s ided dual-chamber pacemaker. Right subclavian Port-A-Cath terminates at the distal SVC. There is a le ft shoulder prosthesis again noted. No new focal lung consolidations to suggest pneumonia. No evidenc e for pulmonary edema. IMPRESSION: Mild cardiomegaly, unchanged. Otherwise, no acute process within the chest. ACT 112: Negative or not required by law. Electronically signed by: Shan Hollingsworth M.D. 12/30/2020 9:54 AM
[2020-12-30 10:12] LABS: Albumin Level 2.5 gm/dl (3.4-5.0); Ferritin 97.3 ng/ml (8-388); Phosphorus 3.4 mg/dl (2.5-4.9)
[2020-12-30 10:34] LABS: Folate (Folic Acid) > 20.00 ng/ml (>5.38); Vitamin B12 > 2000 pg/ml (193-986)
[2020-12-30] MEDS ORDERED: IRON SUCROSE 300 MG in SODIUM CHLORIDE 0.9% 250 ML IV ONE (11:08)
[2020-12-30 11:18] LABS: Appearance Urine Clear (Clear); Bilirubin Urine Negative (Negative); Blood Urine Negative (Negative); Color Urine Dark Yellow; Glucose Urine UA Negative (Negative); Ketones Urine Negative (Negative); Leukocyte Esterase Urine Negative (Negative); Nitrite Urine Negative (Negative); Protein Urine Negative (Negative); Specific Gravity Urine 1.025 (1.000-1.030); Urobilinogen Urine Negative (Negative); pH Urine 5.5 (4.5-7.5)
[2020-12-30] MEDS: ACETAMINOPHEN 500 MG TAB PO PRN (13:14)
[2020-12-30 14:51] LABS: Albumin Level 2.6 gm/dl (3.4-5.0); Bilirubin Direct 0.2 mg/dl (0-0.2); Bilirubin,Total 0.6 mg/dl (0.2-1); Total Protein 6.2 gm/dl (6.4-8.2)
--- NOTE | 2020-12-30 16:17 | Ultrasound Report ---
US liver HISTORY: 70 years-old Female eval for worsening liver mets follow-up study in a patient with known h epatic cyst COMPARISON: CT 09/01/2020 TECHNIQUE: Multiple real-time sonographic images of the abdominal right upper quadrant were obtained assessing grayscale appearance and color flow FINDINGS: The pancreas is not diagnostically visualized. The liver is within normal limits. The previously desc ribed 2.1 cm right hepatic lobe lesion is not definitively seen by ultrasound. Study is mildly limite d by patient body habitus and acoustic window. Cholecystectomy. Normal common bile duct, 6 mm. Imaged right kidney is unremarkable. No ascites. IMPRESSION: 1. Unremarkable exam. 2. The previously described solitary metastatic lesion of the right hepatic lobe is not identified. N o new lesions are seen. 3. Cholecystectomy. ACT 112: Negative or not required by law. The above report was generated using voice recognition software. It may contain grammatical, syntax o r spelling errors. Electronically signed by: Jeremy Batres M.D. 12/30/2020 4:16 PM
[2020-12-30] MEDS: MELATONIN 3 MG TAB PO PRN (21:23)
[2020-12-30] MEDS: INSULIN GLARGINE SOLOSTAR 100 UNITS/ML 3 ML PEN SQ SCH (21:24)
[2020-12-30] MEDS: ATORVASTATIN 40 MG TAB PO SCH (21:25)
[2020-12-30] MEDS: PANTOprazole 40 MG TAB PO SCH (21:26)
[2020-12-30] MEDS: DICLOFENAC SOD 1% GEL 100 GM TUBE EXT PRN (21:28)
[2020-12-31 06:31] LABS: Basophils # (auto) 0.02 K/uL (0-0.2); Basophils % (auto) 0.3 %; Eosinophils # (auto) 0.08 K/uL (0-0.5); Eosinophils % (auto) 1.3 %; Hematocrit (blood only) 26.8 % (37-47); Hemoglobin 8.5 g/dL (12.0-16.0); Immature Granulocytes # (auto) 0.01 K/uL (0.00-0.02); Immature Granulocytes % (auto) 0.2 %; Lymphocytes # (auto) 1.22 K/uL (1.2-3.4); Lymphocytes % (auto) 19.6 %; Mean Corpuscular Hemoglobin 28.6 pg (25-34); Mean Corpuscular Hgb Conc 31.7 g/dL (32-36); Mean Corpuscular Volume 90.2 fL (80-100); Mean Platelet Volume 10.1 fL (7.4-10.4); Monocytes # (auto) 1.09 K/uL (0.11-0.59); Monocytes % (auto) 17.5 %; Neutrophils % (auto) 61.1 %; Platelet Count 307 K/uL (130-400); RDW Coefficient of Variation 16.8 % (11.5-14.5); RDW Standard Deviation 55.1 fL (36.4-46.3); Red Blood Count 2.97 M/uL (4.2-5.4); White Blood Count 6.22 K/uL (4.8-10.8)
[2020-12-31] MEDS: LEVOTHYROXINE SODIUM 25 MCG TABLET PO SCH (06:31)
[2020-12-31] MEDS: oxyCODONE HCL IR 5 MG TAB (IMMEDIATE RELEASE) PO PRN ×4 (06:33→22:18)
[2020-12-31 06:39] LABS: INR 1.3 (0.9-1.1); Prothrombin Time 12.7 Seconds (9.0-12.0)
[2020-12-31 07:06] LABS: Albumin Level 2.5 gm/dl (3.4-5.0); BUN Creatinine Ratio 23.3 (10-20); Bilirubin Direct 0.2 mg/dl (0-0.2); Calcium 8.4 mg/dl (8.5-10.1); Est GFR (African American) 115.2 ml/min; Est GFR (Non-African American) 99.4 ml/min; Potassium 3.6 mmol/L (3.5-5.1)
[2020-12-31 07:09] LABS: Bilirubin,Total 0.7 mg/dl (0.2-1); Total Protein 6.3 gm/dl (6.4-8.2)
--- NOTE | 2020-12-31 08:41 | Orthopedic Progress Note ---
Date of Service December 31, 2020 Assessment & Plan (1) Effusion of knee joint right: Plan: Patient was educated regarding today's findings. She may continue to use her knee immobilizer for support when out of bed. She intends on participating with physical therapy today. Continue using the walker for ambulation. She was encouraged to ice and elevate the knee frequently. We did discuss her follow-up with Dr. Huang upon discharge from the hospital. She continues to verbalize a fear about falling. She will likely benefit from continued rehab and balance training upon discharge from the hospital. Patient was seen in conjunction with Dr. Freitas, who also evaluated the patient this morning and concurred with today's diagnosis and treatment plan. We will continue to follow while she is admitted. Admission and Anticipated Discharge Date Admission Date: December 29, 2020 Supervising Physician Co-Signing Physician Notes I, Dr. Freitas, saw and examined the patient and discussed the management with my PA. I reviewed my PAs note and agree with the documented findings and the plan of care I developed. Subjective Patient is seen in her room this morning. She is in good spirits. Alert and talkative. States her knee continues to be painful. She did participate in PT yesterday. She states she did get out of bed and walk with her walker. She continues to be afraid of falling. Review of Systems Review of Systems: Unchanged from yesterday. Physical Exam Physical Exam: General: Well-developed well-nourished elderly white female in no acute distress. Laying in bed. Conversive. Skin: Warm and dry with good turgor. No rashes. Patient does have increasing ecchymosis over the medial aspect of her right knee. She has also developed a small area of ecchymosis on the inner aspect of her left knee. Ecchymosis continues to develop on her right cheek and under her chin. No open wounds. Musculoskeletal: Right knee continues to have a moderate effusion. No increase in size from yesterday. She is able to actively plantarflex and dorsiflex her toes and ankle. She is able to set her quad and can perform a straight leg raise, though it is painful. No leg lag. She continues to have stable collateral ligaments. She has no discomfort with palpation over the left leg other than the small developing area of ecchymosis on the medial knee. Neurologic: Gross sensation is intact across both lower extremities by soft touch. Peripheral pulses are 2+. Results & Data ([facility]) Vital Signs (Past 12 Hours) Vital Signs Temp Pulse Resp BP Pulse Ox 12/31/20 07:57 37.1 C 104 H 16 126/66 91 12/31/20 00:09 37.4 C 80 16 149/66 H 96
[2020-12-31] MEDS: INSULIN ASPART 100 UNITS/ML 3 ML PEN SC SCH ×4 (09:19→20:23)
[2020-12-31] MEDS: DICLOFENAC SOD 1% GEL 100 GM TUBE EXT PRN ×2 (09:22→22:18)
[2020-12-31] MEDS: traMADol HCL 50 MG TABLET PO PRN ×2 (09:22→20:33)
[2020-12-31] MEDS: LIDOCAINE 5% 1 PATCH TD SCH (09:23)
[2020-12-31] MEDS: DULoxetine HCL 60 MG CAP PO SCH (09:24)
[2020-12-31] MEDS: THIAMINE HCL 100 MG TAB PO SCH (09:24)
[2020-12-31] MEDS: busPIRone 15 MG TAB PO SCH ×2 (09:24→20:09)
[2020-12-31] MEDS: GABAPENTIN 600 MG TAB PO SCH ×2 (09:24→20:09)
[2020-12-31] MEDS: CHOLECALCIFEROL 1,000 UNITS 25 MCG TAB PO SCH (09:24)
[2020-12-31] MEDS: CALCIUM CARBONATE 1250MG TAB PO SCH (09:24)
[2020-12-31] MEDS: RIVAROXABAN 20 MG TAB PO SCH (09:24)
[2020-12-31] MEDS: lisinopril 10 MG TAB PO SCH (09:24)
[2020-12-31] MEDS: dilTIAZem ER 120 MG CAPCR PO SCH (09:25)
[2020-12-31] MEDS: PANTOprazole 40 MG TAB PO SCH ×2 (09:25→20:09)
[2020-12-31] MEDS ORDERED: IRON SUCROSE 300 MG in SODIUM CHLORIDE 0.9% 250 ML IV ONE (12:12)
--- NOTE | 2020-12-31 14:06 | Hospitalist Progress Note ---
Date of Service December 31, 2020 Assessment & Plan (1) Knee pain: Plan: s/p stated mechanical fall Right knee pain with ecchymosis and swelling, not erythemic but was warm on examination with limited ROM Xray without fracture but noted mild periprosthetic lucency at the tibial component of the knee felt possibly representing hardware loosing Ortho consulted -- RICE/conservative treatment and continued monitoring. No further imaging at this time. Recs for PT/OT and immobilizer for 1 week for stability. Continue pain control -- states controlled at this time but increased with walking. Had not had ice to affected area while in room. (2) Recurrent falls: Plan: As above- evaluate knee, evaluate her functionality, assess for rehab CT Head without acute CVA (R frontal scalp injury) CT face no acute fractures CT cervical spine without fx or subluxation. osteopenia and spondylotic changes noted Ankle, Femur, Hip (RIGHT) - No fractures identified within the pelvis, right hip, right femur, right knee, right ankle. Additional chronic changes as described above. CXR mild cardiomegaly, unchanged. No acute process (most recent ECHO 12/2019 prior to dx for ca and chemo therapy, consider repeating given falls/dizziness) PT/OT -- rehab planned for d/c and CM to apply for auth onces recs received B12 wnl Started empirically on B1 -- level pending Vit D level pending Takes meclizine as needed (?accumulation contributing to mental fog -- has not needed currently) Urine without infxn (previously seen by PCP last month for urinary symptoms/tx with Macrobid) Hx breast/liver ca s/p chemo --> consider brain MRI (patient wanting to avoid at this time and plans for PET scan later this month) Patient also found to have anemia, noted chronic, however appears that she got Toradol as follows from addendum to H&P: * "While patient denied taking any Aleve/naproxen it does appear that the patient had been getting these during her last admission while on Xarelto ( will also need to look at given liver mets, although US without evidence of previous lesion). * Upon review with pharmacist, patient received the following: * Toradol 10mg IV x 1 in ER and then was on schedule 15mg IV Q6H x 9 doses , then prn after that and got 5 doses on an as needed basis and sent on Naproxen PO for additional 2 days as needed." Increased PPI to BID on 12/30 and will add Carafate today. Iron low and getting 2nd dose Venofer for today but would repeat tomorrow. (no obvious bleeding reported and already got iron prior to check fecal occult) (3) Atrial fibrillation: Plan: with Pacer due to tachy-monica syndrome - MODE AAIR with mode switch to DDDR Continue Diltiazem 240 XL daily EKG not done yesterday but this afternoon with Afib RVR rates 114bpm. --> Will give dose metoprolol 12.5mg x 1 Suspect 2nd to anemia (no CP reported)-- Venofer currently infusing No chest pain reported but did have abd symptoms Troponin if CP Denied chest pain Will obtain EKG but does endorse any palpitations at current, no CP Continue to monitor -- consider moving to telemetry for closer monitoring if needed (4) Anemia: Plan: Chronic, however see above under recurrent falls patient got 15 doses 15mg IV toradol and sent on naproxen for several days prn Just got her B12 injection, B12 level >2000 Folate >20 Iron studies obtained --> Iron low at 20, TIBC 264, transferrin 218, transferrin % sat low at 7, ferritin 97.3 --> Ordered dose venofer x 2, consider 3rd dose tomorrow Monitor CBC (5) Gastroesophageal reflux disease: Plan: On Protonix 40mg daily [employer], although naproxen was listen on med rec --> denied using any aleeve/napoxen/NSAIDs however review of most recent hospitalization showed TOradol IV x 15 doses and prn naproxen at d/c while on Xarelto PPI increased to BID evening 12/30 Carafate added today -- continue Consult GI if needed, but suspect 2nd to NSAID use while on Xarelto ivf for 500cc slow for mild dehydration secondary to decrease po (6) Diabetes mellitus type 2, uncontrolled: Plan: Continue lantus BSGs controlled Continue to monitor (7) Thyroid disease: Plan: Last TSH 2.20 October 2020 Continue levothyroxine 37.5mg daily (8) Metastatic breast cancer: Plan: Diagnosed MAR 2020, Initialy diagnosed with 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 - Was treated with Abraxane x6 cycles- last cycle was held in October 2020 ?MRI of brain w/wo given recurrent falls/nausea/dizziness as above -- patient declining at this time and plans for repeat PET later this month already (9) Depression: Plan: Continue Duloxetine (10) Chronic pain: Plan: Patient on multiple agents - Fentanyl patch on hold patient says she uses this PRN - Keep oral narcotic for severe pain Oxy 5 - Continue with Lidoderm patches - Hold Voltaren gel - Continue Tramadol (11) Anticoagulant long-term use: Plan: On Xarelto for her Afib - Warranted discussion with her falls and need for chronic anticoagulation use Hx liver Ca and questioned xarelto however patient previously on eliquis and switched due to CKD. Plan: Dispo: continued inpatient stay treatment as above likely rehab at discharge. CM to follow -- patient agreeable for [facility] Admission and Anticipated Discharge Date Admission Date: December 29, 2020 Supervising Physician Co-Signing Physician Notes PA Supervision Note: I did not personally see or examine the patient today, but I verified all edwards points of AZEEM Rene's assessment and plan with the following exceptions/additions: None Subjective Patient evaluated this afternoon. Pain controlled with ordered medications but she does note pain primarily to her R knee. Awaiting ice and immobilizer for activity. Wanting to go to rehab but not until she is ready. Still with decreased appetite and notes she tries to take bites of food but then is uncomfortable. Discussed Toradol last admission and will try Carafate to see if improvement given she had 15 doses last month while on her Xarelto. Notes she was on Eliquis in past but switched to Eliquis she believes because of kidney function. Denies fever, chills, chest pain, shortness of breath (except with exertion), vomiting or dysuria at this time.. Review of Systems Review of Systems: All systems reviewed & are unremarkable except as noted in HPI & below Physical Exam Physical Exam: PHYSICAL EXAM: General: awake, alert, laying in bed, no acute distress and talking with neighbor Skin: bruising to right face, cheek, neck (R>L), b/l UE, R knee/calf, L valero. b/l surgical scars to knees ENT: PERRL, EOMI, no pharyngeal exudate, mucous membranes slightly dry Neuro/MSK: AAO x 3, speech clear and appropriate, strength intact but decreased 4/5 LE, 5/5 UE, sensation to pressure intact, light touch decreased RIGHT knee swollen (about the same) tender to touch with surrounding ecchymosis. Tender to lateral and medial knee with 20 degree ROM (increased discomfort with such) with intra-articular effusion. pulses are palpable and patient with equal strength plantar/dorsiflexion although she is with increased pain with dorsiflexion of R ankle. straight leg with minimal assistance. No clonus appreciated Chest: L sided pacemaker, s/p L lumpectomy CV: irregularly irregular, STEF, no r/g 86bpm (via electronic stethoscope) GI: +BS, soft, minimally tender throughout, although worse upper abdomen, no guarding or rigidity Resp: no acute distress, not tachypneic, on room air. lungs diminished but clear, no obvious wheezing or rhonchi appreciated : no fuentes Psych: AOx3, forgetful at times with word finding (states chronic), but able to find eventually with time Results & Data Results & Data ([facility]) Vital Signs (Past 12 Hours) Vital Signs Temp Pulse Resp BP Pulse Ox 12/31/20 07:57 37.1 C 104 H 16 126/66 91 Laboratory Results 12/31/20 12/31/20 12/31/20 Range/Units 12:05 08:12 06:10 WBC 6.22 (4.8-10.8) K/uL RBC 2.97 L (4.2-5.4) M/uL Hgb 8.5 L (12.0-16.0) g/dL Hct 26.8 L (37-47) % MCV 90.2 (80-100) fL MCH 28.6 (25-34) pg MCHC 31.7 L (32-36) g/dL RDW Std Deviation 55.1 H (36.4-46.3) fL RDW Coeff of Thompson 16.8 H (11.5-14.5) % Plt Count 307 (130-400) K/uL MPV 10.1 (7.4-10.4) fL Immature Gran % (Auto) 0.2 % Neut % (Auto) 61.1 % Lymph % (Auto) 19.6 % [place] % (Auto) 17.5 % Eos % (Auto) 1.3 % Baso % (Auto) 0.3 % Neut # (Auto) 3.80 (1.4-6.5) K/uL Lymph # (Auto) 1.22 (1.2-3.4) K/uL [place] # (Auto) 1.09 H (0.11-0.59) K/uL Eos # (Auto) 0.08 (0-0.5) K/uL Baso # (Auto) 0.02 (0-0.2) K/uL Immature Gran # (Auto) 0.01 (0.00-0.02) K/uL PT (9.0-12.0) Seconds INR (0.9-1.1) Sodium (136-145) mmol/L Potassium (3.5-5.1) mmol/L Chloride (98-107) mmol/L Carbon Dioxide (21-32) mmol/L Anion Gap (3-11) BUN (7-18) mg/dl Creatinine (0.6-1.2) mg/dl Est Cr Clr Drug Dosing ml/min Est GFR ( Amer) ml/min Est GFR (Non-Af Amer) ml/min BUN/Creatinine Ratio (10-20) Glucose (70-99) mg/dl POC Glucose 181 H 140 H (70-99) mg/dl Calcium (8.5-10.1) mg/dl Magnesium (1.8-2.4) mg/dl Total Bilirubin (0.2-1) mg/dl Direct Bilirubin (0-0.2) mg/dl AST (15-37) U/L ALT (12-78) U/L Alkaline Phosphatase (45-117) U/L Total Protein (6.4-8.2) gm/dl Albumin (3.4-5.0) gm/dl Lipase (73-393) U/L 12/31/20 12/31/20 12/30/20 Range/Units 06:10 06:10 21:06 WBC (4.8-10.8) K/uL RBC (4.2-5.4) M/uL Hgb (12.0-16.0) g/dL Hct (37-47) % MCV (80-100) fL MCH (25-34) pg MCHC (32-36) g/dL RDW Std Deviation (36.4-46.3) fL RDW Coeff of Thompson (11.5-14.5) % Plt Count (130-400) K/uL MPV (7.4-10.4) fL Immature Gran % (Auto) % Neut % (Auto) % Lymph % (Auto) % [place] % (Auto) % Eos % (Auto) % Baso % (Auto) % Neut # (Auto) (1.4-6.5) K/uL Lymph # (Auto) (1.2-3.4) K/uL [place] # (Auto) (0.11-0.59) K/uL Eos # (Auto) (0-0.5) K/uL Baso # (Auto) (0-0.2) K/uL Immature Gran # (Auto) (0.00-0.02) K/uL PT 12.7 H (9.0-12.0) Seconds INR 1.3 H (0.9-1.1) Sodium 138 (136-145) mmol/L Potassium 3.6 (3.5-5.1) mmol/L Chloride 105 (98-107) mmol/L Carbon Dioxide 25 (21-32) mmol/L Anion Gap 8.0 (3-11) BUN 11 (7-18) mg/dl Creatinine 0.46 L (0.6-1.2) mg/dl Est Cr Clr Drug Dosing 114.0 ml/min Est GFR ( Amer) 115.2 ml/min Est GFR (Non-Af Amer) 99.4 ml/min BUN/Creatinine Ratio 23.3 H (10-20) Glucose 124 H (70-99) mg/dl POC Glucose 181 H (70-99) mg/dl Calcium 8.4 L (8.5-10.1) mg/dl Magnesium 2.0 (1.8-2.4) mg/dl Total Bilirubin 0.7 (0.2-1) mg/dl Direct Bilirubin 0.2 (0-0.2) mg/dl AST 14 L (15-37) U/L ALT 15 (12-78) U/L Alkaline Phosphatase 109 (45-117) U/L Total Protein 6.3 L (6.4-8.2) gm/dl Albumin 2.5 L (3.4-5.0) gm/dl Lipase (73-393) U/L 08/14/21 08/14/21 Range/Units 17:11 14:10 WBC (4.8-10.8) K/uL RBC (4.2-5.4) M/uL Hgb (12.0-16.0) g/dL Hct (37-47) % MCV (80-100) fL MCH (25-34) pg MCHC (32-36) g/dL RDW Std Deviation (36.4-46.3) fL RDW Coeff of Thompson (11.5-14.5) % Plt Count (130-400) K/uL MPV (7.4-10.4) fL Immature Gran % (Auto) % Neut % (Auto) % Lymph % (Auto) % [place] % (Auto) % Eos % (Auto) % Baso % (Auto) % Neut # (Auto) (1.4-6.5) K/uL Lymph # (Auto) (1.2-3.4) K/uL [place] # (Auto) (0.11-0.59) K/uL Eos # (Auto) (0-0.5) K/uL Baso # (Auto) (0-0.2) K/uL Immature Gran # (Auto) (0.00-0.02) K/uL PT (9.0-12.0) Seconds INR (0.9-1.1) Sodium (136-145) mmol/L Potassium (3.5-5.1) mmol/L Chloride (98-107) mmol/L Carbon Dioxide (21-32) mmol/L Anion Gap (3-11) BUN (7-18) mg/dl Creatinine (0.6-1.2) mg/dl Est Cr Clr Drug Dosing ml/min Est GFR ( Amer) ml/min Est GFR (Non-Af Amer) ml/min BUN/Creatinine Ratio (10-20) Glucose (70-99) mg/dl POC Glucose 188 H (70-99) mg/dl Calcium (8.5-10.1) mg/dl Magnesium (1.8-2.4) mg/dl Total Bilirubin 0.6 (0.2-1) mg/dl Direct Bilirubin 0.2 (0-0.2) mg/dl AST 18 (15-37) U/L ALT 16 (12-78) U/L Alkaline Phosphatase 118 H (45-117) U/L Total Protein 6.2 L (6.4-8.2) gm/dl Albumin 2.6 L (3.4-5.0) gm/dl Lipase 64 L (73-393) U/L Diagnostic Findings Chest X-Ray 12/30/20 09:04 XR chest 1V portable HISTORY: Fall. COMPARISON: Chest 12/01/2020. FINDINGS: No pneumothorax. No pleural effusions. The heart remains mildly enlarged. There is a left-sided dual-chamber pacemaker. Right subclavian Port-A-Cath terminates at the distal SVC. There is a left shoulder prosthesis again noted. No new focal lung consolidations to suggest pneumonia. No evidence for pulmonary edema. IMPRESSION: Mild cardiomegaly, unchanged. Otherwise, no acute process within the chest. ACT 112: Negative or not required by law. Electronically signed by: Shan Hollingsworth M.D. 12/30/2020 9:54 AM Liver Ultrasound 12/30/20 13:48 US liver HISTORY: 70 years-old Female eval for worsening liver mets follow-up study in a patient with known hepatic cyst COMPARISON: CT 09/01/2020 TECHNIQUE: Multiple real-time sonographic images of the abdominal right upper quadrant were obtained assessing grayscale appearance and color flow FINDINGS: The pancreas is not diagnostically visualized. The liver is within normal limits. The previously described 2.1 cm right hepatic lobe lesion is not definitively seen by ultrasound. Study is mildly limited by patient body habitus and acoustic window. Cholecystectomy. Normal common bile duct, 6 mm. Imaged right kidney is unremarkable. No ascites. IMPRESSION: 1. Unremarkable exam. 2. The previously described solitary metastatic lesion of the right hepatic lobe is not identified. No new lesions are seen. 3. Cholecystectomy. ACT 112: Negative or not required by law. The above report was generated using voice recognition software. It may contain grammatical, syntax or spelling errors. Electronically signed by: Jeremy Batres M.D. 12/30/2020 4:16 PM PG Care Time/CCT Total # of Minutes Spent Total Time Spent with Patient: Total time spent is greater than 50% in coordination of care (as documented) at patient's floor/unit and/or counseling patient: Coding Level of Care Code 09765 Subseq Hosp Care Lvl 3 Diagnoses Knee pain M25.569 Recurrent falls R29.6 Diabetes mellitus type 2, uncontrolled E11.65 Glycemic state: with hyperglycemia Anemia D64.9 Thyroid disease E07.9 Metastatic breast cancer C50.919 Atrial fibrillation I48.91 Atrial fibrillation type: unspecified Gastroesophageal reflux disease K21.9 Esophagitis presence: esophagitis presence not specified Depression F32.9 Depression Type: unspecified Chronic pain G89.29 Anticoagulant long-term use Z79.01 (1) Atrial fibrillation Atrial fibrillation type: unspecified Qualified Code(s): I48.91 - Unspecified atrial fibrillation (2) Depression Depression Type: unspecified Qualified Code(s): F32.9 - Major depressive disorder, single episode, unspecified (3) Diabetes mellitus type 2, uncontrolled Glycemic state: with hyperglycemia Qualified Code(s): E11.65 - Type 2 diabetes mellitus with hyperglycemia (4) Gastroesophageal reflux disease Esophagitis presence: esophagitis presence not specified Qualified Code(s): K21.9 - Gastro-esophageal reflux disease without esophagitis
[2020-12-31] MEDS ORDERED: SODIUM CHLORIDE 0.9% 500 ML IV SCH (14:15)
[2020-12-31] MEDS ORDERED: METOPROLOL TARTRATE 25 MG TAB PO ONE (14:16)
[2020-12-31] MEDS: ACETAMINOPHEN 500 MG TAB PO PRN (16:23)
[2020-12-31] MEDS: SUCRALFATE 1 GM/10 ML UDC PO SCH ×2 (16:41→20:27)
[2020-12-31] MEDS: ATORVASTATIN 40 MG TAB PO SCH (20:09)
[2020-12-31] MEDS: INSULIN GLARGINE SOLOSTAR 100 UNITS/ML 3 ML PEN SQ SCH (20:24)
[2021-01-01] MEDS: ACETAMINOPHEN 500 MG TAB PO PRN (00:51)
[2021-01-01] MEDS: MELATONIN 3 MG TAB PO PRN ×2 (00:51→23:10)
[2021-01-01] MEDS: HEPARIN 100 UNIT/ML 5ML FLUSH FLUSH PRN ×3 (00:55→13:17)
[2021-01-01] MEDS: LEVOTHYROXINE SODIUM 25 MCG TABLET PO SCH (06:19)
[2021-01-01 06:26] LABS: Basophils # (auto) 0.01 K/uL (0-0.2); Basophils % (auto) 0.1 %; Eosinophils # (auto) 0.18 K/uL (0-0.5); Eosinophils % (auto) 2.5 %; Hematocrit (blood only) 25.6 % (37-47); Immature Granulocytes # (auto) 0.02 K/uL (0.00-0.02); Immature Granulocytes % (auto) 0.3 %; Lymphocytes # (auto) 1.36 K/uL (1.2-3.4); Lymphocytes % (auto) 19.2 %; Mean Corpuscular Hgb Conc 31.3 g/dL (32-36); Mean Corpuscular Volume 92.8 fL (80-100); Mean Platelet Volume 10.3 fL (7.4-10.4); Monocytes # (auto) 1.17 K/uL (0.11-0.59); Monocytes % (auto) 16.5 %; Neutrophils # (auto) 4.34 K/uL (1.4-6.5); Neutrophils % (auto) 61.4 %; Platelet Count 298 K/uL (130-400); RDW Standard Deviation 56.7 fL (36.4-46.3); Red Blood Count 2.76 M/uL (4.2-5.4); White Blood Count 7.08 K/uL (4.8-10.8)
[2021-01-01 06:52] LABS: BUN Creatinine Ratio 29.7 (10-20); Calcium 8.3 mg/dl (8.5-10.1); Est GFR (African American) 115.2 ml/min; Est GFR (Non-African American) 99.4 ml/min; Magnesium 2.1 mg/dl (1.8-2.4); Potassium 3.8 mmol/L (3.5-5.1)
[2021-01-01] MEDS: oxyCODONE HCL IR 5 MG TAB (IMMEDIATE RELEASE) PO PRN ×4 (08:55→23:05)
[2021-01-01] MEDS: PANTOprazole 40 MG TAB PO SCH ×2 (08:56→20:42)
[2021-01-01] MEDS: busPIRone 15 MG TAB PO SCH ×2 (08:56→20:45)
[2021-01-01] MEDS: GABAPENTIN 600 MG TAB PO SCH ×2 (08:56→20:45)
[2021-01-01] MEDS: CHOLECALCIFEROL 1,000 UNITS 25 MCG TAB PO SCH (08:57)
[2021-01-01] MEDS: DULoxetine HCL 60 MG CAP PO SCH (08:57)
[2021-01-01] MEDS: lisinopril 10 MG TAB PO SCH (08:57)
[2021-01-01] MEDS: CALCIUM CARBONATE 1250MG TAB PO SCH (08:58)
[2021-01-01] MEDS: THIAMINE HCL 100 MG TAB PO SCH (08:58)
[2021-01-01] MEDS: SUCRALFATE 1 GM/10 ML UDC PO SCH ×4 (08:59→20:43)
[2021-01-01] MEDS: dilTIAZem ER 120 MG CAPCR PO SCH (08:59)
[2021-01-01] MEDS: RIVAROXABAN 20 MG TAB PO SCH (08:59)
[2021-01-01] MEDS: INSULIN ASPART 100 UNITS/ML 3 ML PEN SC SCH ×4 (09:02→20:54)
--- NOTE | 2021-01-01 12:05 | Hospitalist Progress Note ---
Date of Service January 01, 2021 Assessment & Plan (1) Knee pain: Plan: s/p stated mechanical fall Right knee pain with ecchymosis and swelling, not erythemic but was warm on examination with limited ROM X-ray without fracture but noted mild periprosthetic lucency at the tibial component of the knee felt possibly representing hardware loosing Ortho consulted -- RICE/conservative treatment and continued monitoring. No further imaging at this time. Recs for PT/OT and immobilizer for 1 week for stability. Continue pain control -- states controlled at this time but increased with walking. Had not had ice to affected area while in room. (2) Recurrent falls: Plan: As above- dizziness on turning her head Anemia possibly contributing (see below) CT Head without acute CVA (R frontal scalp injury) CT face no acute fractures CT cervical spine without fx or subluxation. osteopenia and spondylotic changes noted Ankle, Femur, Hip (RIGHT) - No fractures identified within the pelvis, right hip, right femur, right knee, right ankle. Additional chronic changes as described above. CXR mild cardiomegaly, unchanged. No acute process (most recent ECHO 12/2019 prior to dx for ca and chemo therapy, consider repeating given falls/dizziness) B12 wnl Started empirically on B1 -- level pending Vit D level 37.8 Takes meclizine as needed (?accumulation contributing to mental fog -- has not needed currently) Urine without infection (previously seen by PCP last month for urinary symptoms/tx with Macrobid) Hx breast/liver ca s/p chemo --> consider brain MRI (patient wanting to avoid at this time and plans for PET scan later this month) (3) Atrial fibrillation: Plan: with Pacer due to tachy-monica syndrome - MODE AAIR with mode switch to DDDR Continue Diltiazem 240 XL daily Rate now better controlled (4) Anemia: Plan: Chronic, however see above under recurrent falls patient got 15 doses 15mg IV toradol and sent on naproxen for several days prn Just got her B12 injection, B12 level >2000 Folate >20 Iron studies obtained --> transferrin % sat low at 7, ferritin 97.3 --> Venofer x 2 300mg, total deficient approximately 750mg - will give additional 200mg Venofer today (5) Gastroesophageal reflux disease: Plan: On Protonix 40mg daily 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, although naproxen was listen on med rec --> denied using any Aleve/naproxen/NSAIDs however review of most recent hospitalization showed Toradol IV x 15 doses and prn naproxen at d/c while on Xarelto PPI increased to BID evening 12/30 Carafate added this admission -- continue Consult GI if needed, but suspect 2nd to NSAID use while on Xarelto (6) Diabetes mellitus type 2, uncontrolled: Plan: Continue lantus BSGs controlled Continue to monitor (7) Thyroid disease: Plan: Last TSH 2.20 October 2020 Continue levothyroxine 37.5mg daily (8) Metastatic breast cancer: Plan: Diagnosed MAR 2020, Initially diagnosed with 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 - Was treated with Abraxane x6 cycles- last cycle was held in October 2020 ?MRI of brain w/wo given recurrent falls/nausea/dizziness as above -- patient declining at this time and plans for repeat PET later this month already (9) Depression: Plan: Continue Duloxetine (10) Chronic pain: Plan: Patient on multiple agents - Fentanyl patch on hold patient says she uses this PRN - Keep oral narcotic for severe pain Oxy 5 - Continue with Lidoderm patches - Hold Voltaren gel - Continue Tramadol (11) Anticoagulant long-term use: Plan: On Xarelto for her Afib - Warranted discussion with her falls and need for chronic anticoagulation use Hx liver Ca and questioned xarelto however patient previously on eliquis and switched due to CKD. Plan: Dispo: medically stable for discharge likely rehab at discharge. CM to follow -- patient agreeable for [facility] Admission and Anticipated Discharge Date Admission Date: December 29, 2020 Subjective No change in her symptoms. Continued knee pain but no worse. Accepting need for further physical rehabilitation. Review of Systems Review of Systems: All systems reviewed & are unremarkable except as noted in HPI & below Physical Exam Constitutional: WD/WN, vitals as above + obese Eyes: PERRL, conjunctivae normal, anicteric sclerae EOM intact bilaterally; no nystagmus Respiratory: normal respiratory effort, lungs clear to auscultation Cardiovascular: Rate/Rhythm: regular rate and + irregularly irregular Vessels: no JVD Extremities: normal capillary refill; no calf tenderness and no pedal edema Gastrointestinal (Abdomen): Percussion/Palpation: abdomen soft; abdomen nontender Musculoskeletal: Knee in immobilizer. Not removed. NV intact distally. Skin: no rashes, warm and dry Neurologic: moves all extremities and awake; not confused Psychiatric: A+Ox3, euthymic affect Results & Data Results & Data ([facility]) Vital Signs (Past 12 Hours) Vital Signs Temp Pulse Resp BP Pulse Ox 01/01/21 08:13 36.5 C 71 18 127/78 91 PG Care Time/CCT Total # of Minutes Spent Total Time Spent with Patient: Total time spent is greater than 50% in coordination of care (as documented) at patient's floor/unit and/or counseling patient: Coding Level of Care Code 69661 Subseq Hosp Care Lvl 1 Diagnoses Knee pain M25.569 Recurrent falls R29.6 Atrial fibrillation I48.91 Atrial fibrillation type: unspecified Anemia D64.9 Gastroesophageal reflux disease K21.9 Esophagitis presence: esophagitis presence not specified Diabetes mellitus type 2, uncontrolled E11.65 Glycemic state: with hyperglycemia Thyroid disease E07.9 Metastatic breast cancer C50.919 Depression F32.9 Depression Type: unspecified Chronic pain G89.29 Anticoagulant long-term use Z79.01 (1) Atrial fibrillation Atrial fibrillation type: unspecified Qualified Code(s): I48.91 - Unspecified atrial fibrillation (2) Depression Depression Type: unspecified Qualified Code(s): F32.9 - Major depressive disorder, single episode, unspecified (3) Diabetes mellitus type 2, uncontrolled Glycemic state: with hyperglycemia Qualified Code(s): E11.65 - Type 2 diabetes mellitus with hyperglycemia (4) Gastroesophageal reflux disease Esophagitis presence: esophagitis presence not specified Qualified Code(s): K21.9 - Gastro-esophageal reflux disease without esophagitis
[2021-01-01] MEDS ORDERED: IRON SUCROSE 200 MG in 0.9 % SODIUM CHLORIDE 100 ML IV ONE (12:30)
[2021-01-01] MEDS: LIDOCAINE 5% 1 PATCH TD SCH (14:04)
[2021-01-01] MEDS ORDERED: MAGNESIUM CITRATE 296 ML/BTL PO ONE (14:15)
--- NOTE | 2021-01-01 16:07 | Electrocardiogram Report ---
Test Reason : Blood Pressure : / mmHG Vent. Rate : 114 BPM Atrial Rate : 114 BPM P-R Int : 000 ms QRS Dur : 086 ms QT Int : 324 ms P-R-T Axes : 000 019 061 degrees QTc Int : 446 ms Atrial fibrillation with rapid ventricular response Abnormal ECG When compared with ECG of 02-DEC-2020 22:01, Atrial fibrillation has replaced Electronic atrial pacemaker Vent. rate has increased BY 54 BPM Non-specific change in ST segment in Lateral leads Confirmed by Damaso Mcfarlane ([id number]) on 01/01/2021 4:07:45 PM Referred By: REFERRED SELF Confirmed By:Damaso Mcfarlane
[2021-01-01] MEDS: traMADol HCL 50 MG TABLET PO PRN ×2 (16:56→20:41)
[2021-01-01] MEDS: ATORVASTATIN 40 MG TAB PO SCH (20:44)
[2021-01-01] MEDS: INSULIN GLARGINE SOLOSTAR 100 UNITS/ML 3 ML PEN SQ SCH (20:53)
[2021-01-02] MEDS: ACETAMINOPHEN 500 MG TAB PO PRN ×2 (02:07→12:28)
[2021-01-02] MEDS ORDERED: VANCOMYCIN CONSULT ACTIVE PRN (05:10)
[2021-01-02] MEDS: oxyCODONE HCL IR 5 MG TAB (IMMEDIATE RELEASE) PO PRN ×3 (05:12→13:48)
[2021-01-02] MEDS: LEVOTHYROXINE SODIUM 25 MCG TABLET PO SCH (05:14)
[2021-01-02] MEDS ORDERED: VANCOMYCIN HCL 2,000 MG in SODIUM CHLORIDE 0.9% 500 ML IV SCH (06:00)
[2021-01-02] MEDS: traMADol HCL 50 MG TABLET PO PRN (07:58)
[2021-01-02] MEDS: RIVAROXABAN 20 MG TAB PO SCH (07:59)
[2021-01-02] MEDS: CALCIUM CARBONATE 1250MG TAB PO SCH (08:03)
[2021-01-02] MEDS: DULoxetine HCL 60 MG CAP PO SCH (08:03)
[2021-01-02] MEDS: SUCRALFATE 1 GM/10 ML UDC PO SCH ×2 (08:03→12:27)
[2021-01-02] MEDS: dilTIAZem ER 120 MG CAPCR PO SCH (08:03)
[2021-01-02] MEDS: lisinopril 10 MG TAB PO SCH (08:03)
[2021-01-02] MEDS: GABAPENTIN 600 MG TAB PO SCH (08:04)
[2021-01-02] MEDS: busPIRone 15 MG TAB PO SCH (08:04)
[2021-01-02] MEDS: THIAMINE HCL 100 MG TAB PO SCH (08:04)
[2021-01-02] MEDS: PANTOprazole 40 MG TAB PO SCH (08:05)
[2021-01-02] MEDS: CHOLECALCIFEROL 1,000 UNITS 25 MCG TAB PO SCH (08:05)
[2021-01-02] MEDS: INSULIN ASPART 100 UNITS/ML 3 ML PEN SC SCH ×2 (09:11→12:30)
[2021-01-02] MEDS: LIDOCAINE 5% 1 PATCH TD SCH (10:36)
--- NOTE | 2021-01-02 14:23 | Discharge Summary ---
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 Patient comes to the hospital for evaluation of pain to her right knee and frequent falls. Patient is currently living at home with her and continues to have pain with her right knee with ambulation and this is leading her to be unable to walk without losing her balance and or falling. Patient's most recent fall she reports about a week ago, which she says was at the rehab facility where she tripped over her walker. This left her with bruising to her face, hip, chest, and her right knee. She also remains on Xeralto for her atrial fibrillation. The patient was in rehab following a fall in November where she hit her head and ribs. She currently has difficulty bending her right knee and putting weight on it. Patient will be admitted for further evaluation fo her functional status with PT/OT. She may need further rehabilitation and evaluation of her right knee. Patient has had her COVID vaccination and her COVID test is NEGATIVE on admission. Discharge Data Allergies Allergy/AdvReac Type Severity Reaction Status Date / Time metformin AdvReac Severe Unknown Verified 12/29/20 16:24 Consultations 12/29/20 17:19 ED Decision to Admit Stat 12/29/20 22:00 Consult Orthopedic Surgery Routine Ordered Studies 12/29/20 14:07 CT cervical spine wo con Stat CT facial bones wo con Stat CT head/brain wo con Stat 12/30/20 13:48 US liver Routine Hospital Course (1) Knee pain: s/p stated mechanical fall Right knee pain with ecchymosis and swelling, not erythemic but was warm on examination with limited ROM X-ray without fracture but noted mild periprosthetic lucency at the tibial component of the knee felt possibly representing hardware loosing Ortho consulted -- RICE/conservative treatment and continued monitoring. No further imaging at this time. Recs for PT/OT and immobilizer for 1 week for stability. Continue pain control -- states controlled at this time but increased with walking. Had not had ice to affected area while in room. (2) Recurrent falls: As above- dizziness on turning her head Anemia possibly contributing (see below) CT Head without acute CVA (R frontal scalp injury) CT face no acute fractures CT cervical spine without fx or subluxation. osteopenia and spondylotic changes noted Ankle, Femur, Hip (RIGHT) - No fractures identified within the pelvis, right hip, right femur, right knee, right ankle. Additional chronic changes as described above. CXR mild cardiomegaly, unchanged. No acute process (most recent ECHO 12/2019 prior to dx for ca and chemo therapy, consider repeating given falls/dizziness) B12 wnl Started empirically on B1 -- level pending Vit D level 37.8 Takes meclizine as needed (?accumulation contributing to mental fog -- has not needed currently) Urine without infection (previously seen by PCP last month for urinary symptoms/tx with Macrobid) Hx breast/liver ca s/p chemo --> consider brain MRI (patient wanting to avoid at this time and plans for PET scan later this month) (3) Atrial fibrillation: with Pacer due to tachy-monica syndrome - MODE AAIR with mode switch to DDDR Continue Diltiazem 240 XL daily Rate now better controlled (4) Anemia: Chronic, however see above under recurrent falls patient got 15 doses 15mg IV toradol and sent on naproxen for several days prn Just got her B12 injection, B12 level >2000 Folate >20 Iron studies obtained --> transferrin % sat low at 7, ferritin 97.3 --> Venofer x 2 300mg, total deficient approximately 750mg - will give additional 200mg Venofer today (5) Gastroesophageal reflux disease: 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, although naproxen was listen on med rec --> denied using any Aleve/naproxen/NSAIDs however review of most recent hospitalization showed Toradol IV x 15 doses and prn naproxen at d/c while on Xarelto PPI increased to BID evening 12/30 Carafate added this admission -- continue Consult GI if needed, but suspect 2nd to NSAID use while on Xarelto (6) Diabetes mellitus type 2, uncontrolled: Continue lantus BSGs controlled Continue to monitor (7) Thyroid disease: Last TSH 2.20 October 2020 Continue levothyroxine 37.5mg daily (8) Metastatic breast cancer: Diagnosed MAR 2020, Initially diagnosed with 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 - Was treated with Abraxane x6 cycles- last cycle was held in October 2020 ?MRI of brain w/wo given recurrent falls/nausea/dizziness as above -- patient declining at this time and plans for repeat PET later this month already (9) Depression: Continue Duloxetine (10) Chronic pain: Patient on multiple agents - Fentanyl patch on hold patient says she uses this PRN - Keep oral narcotic for severe pain Oxy 5 - Continue with Lidoderm patches - Hold Voltaren gel - Continue Tramadol (11) Anticoagulant long-term use: On Xarelto for her Afib - Warranted discussion with her falls and need for chronic anticoagulation use Hx liver Ca and questioned xarelto however patient previously on eliquis and switched due to CKD. Dispo: medically stable for discharge likely rehab at discharge. CM to follow -- patient agreeable for [facility] Discharge Plan Discharge Items Patient Disposition: Transfer Inpatient Rehab Fac Reason For Visit: FREQUENT FALLS AND DIFFICULTY AMBULATING Discharge Diagnosis: Reccurrent falls Right knee effusion Activity: Per Instructions section Non-emergency contact: Surgeon Call non-emergency contact if: you have any medication questions and your symptoms worsen Follow-up/Referrals: Jarod Lovett MD [Primary Care Provider] - Nathan Huang MD [Physician] - Diet: Carb Consistent or DM2 Addtl Attending Provider Instructions: You were admitted to [facility] from December 29 - 2020 due to a fall with subsequent right knee pain. Imaging showed no acute fractures. There was some concern regarding loosening of your tibial prosthesis although on review by orthopedics there was not concern for this. Please see below for orthopedic recommendations and call Dr Huang's office for follow up. Fall suspected to be secondary to your ongoing balance issues and recommend ongoing physical rehabilitation for this. During your inpatient stay you were noted to be slightly more anemic than your baseline and you were transfused iron (Venofer) total 800mg. No need to take iron suplpementation on top of this. Due to concern for iron deficiency as a result of a stomach ulcer recommend holding further Naproxen at this time. 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 You may continue to use your knee immobilizer for stability for the next few days. Try not to use it for more than [address] Huang's office for follow-up and reevaluation of your right knee Continue to do your knee exercises and practice gentle range of motion to prevent stiffness Use your walker for ambulation to limit your risk for falls Pending Studies at Discharge: Yes Stand-Alone Forms: My [facility] Skilled Items Patient informed of condition?: Yes DNR: No Discharge Level of Care: Acute rehab Communicable Disease: No Discharge Prognosis: Stable Lines: None Urinary Catheter: No Medications and DC Order Prescriptions: New thiamine HCl (vitamin B1) [Vitamin B-1] 100 mg Tablet 100 mg PO QAM Qty: 30 RF: 0 Continued cyanocobalamin (vitamin B-12) 1,000 mcg/mL kit 1,000 mcg IM MONTHLY RF: 0 multivitamin tablet 1 tab PO QAM RF: 0 atorvastatin 40 mg tablet 40 mg PO HS Qty: 90 RF: 3 Lantus Solostar U-100 Insulin 100 unit/mL (3 mL) insulin pen 31 unit SQ HS Qty: 15 RF: 5 Trulicity 0.75 mg/0.5 mL pen injector 0.75 mg subcut WK Qty: 2 RF: 5 pantoprazole 40 mg tablet,delayed release (DR/EC) 40 mg PO QAM Qty: 90 RF: 3 lisinopril 10 mg tablet 10 mg PO QAM Qty: 90 RF: 3 acetaminophen [Tylenol Extra Strength] 500 mg tablet 1,000 mg PO TID PRN (Reason: Pain) Qty: 90 RF: 1 levothyroxine 25 mcg tablet 37.5 mcg PO QAM Qty: 135 RF: 3 oxycodone 5 mg tablet See Rx Instructions PO Q4H PRN (Reason: Pain) RF: 0 Hold Instructions: hold tramadol [Ultram] 50 mg tablet 50 mg PO Q12H PRN (Reason: pain) Qty: 60 RF: 0 gabapentin 600 mg tablet 300 mg PO BID Qty: 60 RF: 2 glipizide 10 mg tablet 5 mg PO BID RF: 0 Hold Instructions: per office Xarelto 20 mg tablet 20 mg PO QAM RF: 0 meclizine 25 mg tablet 25 mg PO Q6H PRN (Reason: dizziness) Qty: 30 RF: 0 cholecalciferol (vitamin D3) [Vitamin D3] 25 mcg (1,000 unit) Capsule 1,000 unit PO QAM RF: 0 diltiazem HCl [Taztia XT] 120 mg Capsule,Extended Release 24 Hr 120 mg PO QAM Qty: 90 RF: 3 calcium 600 mg Capsule 600 mg PO DAILY RF: 0 duloxetine 60 mg capsule,delayed release(DR/EC) 60 mg PO QAM RF: 0 buspirone 15 mg Tablet 15 mg PO BID RF: 0 lidocaine 5 % Adhesive Patch,Medicated 1 patch transdermal QAM Qty: 1 RF: 0 diclofenac sodium [Voltaren Arthritis Pain] 1 % gel 2 g topical QID Qty: 2 RF: 0 Changed fentanyl 25 mcg/hr patch 72 hour 1 patch transdermal Q72H PRN (Reason: Pain) Qty: 0 RF: 0 Discontinued naproxen 500 mg tablet,delayed release (DR/EC) 500 mg PO BID Qty: 4 RF: 0 Discharge Orders: Discharge Order (Routine); Ordered 01/02/21 Ordered By: Kris Person Admission Data Admit Date/Time: 12/29/20 17:48 Attending Provider: Kris Person Admit Provider: Devante Pugh Primary Care Provider: Jarod Lovett Other Providers: Nathan Huang ; Curtis Zamorano ; [facility] Coding Diagnoses Knee pain M25.569 Recurrent falls R29.6 Atrial fibrillation I48.91 Atrial fibrillation type: unspecified Anemia D64.9 Gastroesophageal reflux disease K21.9 Esophagitis presence: esophagitis presence not specified Diabetes mellitus type 2, uncontrolled E11.65 Glycemic state: with hyperglycemia Thyroid disease E07.9 Metastatic breast cancer C50.919 Depression F32.9 Depression Type: unspecified Chronic pain G89.29 Anticoagulant long-term use Z79.01
[2021-01-02] MEDS ORDERED: VANCOMYCIN HCL 1,250 MG in SODIUM CHLORIDE 0.9% 250 ML IV SCH (18:00)
== END 2021-01-02 15:10 ==
LOC: ED 12:46 → SUATTDRO 17:48 → INTOOBSV 17:48 → 3W 17:48
DX: R29.6 Repeated falls; I48.91 Unspecified atrial fibrillation; M25.461 Effusion, right knee; Z79.891 Long term (current) use of opiate analgesic; E78.5 Hyperlipidemia, unspecified; E03.9 Hypothyroidism, unspecified; Z79.4 Long term (current) use of insulin; E11.40 Type 2 diabetes mellitus with diabetic neuropathy, unspecified; E66.9 Obesity, unspecified; Z87.891 Personal history of nicotine dependence; Z79.890 Hormone replacement therapy; Z68.35 Body mass index [BMI] 35.0-35.9, adult; G89.29 Other chronic pain; E07.9 Disorder of thyroid, unspecified; E11.65 Type 2 diabetes mellitus with hyperglycemia; Z79.01 Long term (current) use of anticoagulants; K21.9 Gastro-esophageal reflux disease without esophagitis; Z79.899 Other long term (current) drug therapy; M25.561 Pain in right knee; Z96.643 Presence of artificial hip joint, bilateral; M19.90 Unspecified osteoarthritis, unspecified site; D64.9 Anemia, unspecified; C50.919 Malignant neoplasm of unspecified site of unspecified female breast; Z95.0 Presence of cardiac pacemaker; G47.33 Obstructive sleep apnea (adult) (pediatric)

== ENCOUNTER 2021-07-11 08:42 | Inpatient (IN) ==
--- NOTE | 2021-07-06 10:32 | PAT Medication Instructions ---
Medication Instructions Date of Service July 06, 2021 Home Medications Medication Instructions Recorded levothyroxine 25 mcg tablet 37.5 mcg PO QAM #135 tab 10/24/20 gabapentin 600 mg tablet 300 mg PO BID #60 tab 10/25/20 diclofenac sodium 1 % topical gel 2 g TOPICAL QID #2 g 11/03/20 (Voltaren Arthritis Pain) lidocaine 5 % topical patch 1 patch TRANSDERMAL QAM #1 ea 11/03/20 thiamine HCl (vitamin B1) 100 mg 100 mg PO QAM #30 tab 01/02/21 tablet (Vitamin B-1) syringe with needle 3 mL 25 gauge #100 ea 02/22/21 x 1" (BD Luer-Veronica Syringe) Wheelchair (Powered) (Power #1 ea 03/05/21 Wheelchair) diltiazem HCl 240 mg capsule,24 240 mg PO QAM #90 cap 03/13/21 hr,extended release meclizine 25 mg tablet 25 mg PO Q6H PRN #30 tab 03/22/21 rivaroxaban 20 mg tablet (Xarelto) 20 mg PO QAM #90 tab 03/22/21 atorvastatin 40 mg tablet 40 mg PO HS #90 tab 03/26/21 insulin glargine 100 unit/mL (3 31 unit SQ HS #15 ml 05/04/21 mL) subcutaneous pen (Lantus Solostar U-100 Insulin) lisinopril 10 mg tablet 10 mg PO QAM #90 tab 05/21/21 cyanocobalamin (vitamin B-12) 1,000 mcg IM MONTHLY #1 ea 05/23/21 1,000 mcg/mL injection kit pantoprazole 40 mg tablet,delayed 40 mg PO QAM #90 tab 05/23/21 release acetaminophen 500 mg tablet 1,000 mg PO TID PRN #90 tab 05/29/21 (Tylenol Extra Strength) lancets 33 gauge (BD Ultra Fine #100 ea 06/11/21 Lancets) pen needle, diabetic 32 gauge x #100 ea 06/11/21 5/32" (Easy Comfort Pen [place]joy) blood sugar diagnostic (OneTouch #100 ea 06/20/21 Ultra Test) sulfamethoxazole 800 1 tab PO BID #60 tab 06/20/21 mg-trimethoprim 160 mg tablet (Bactrim DS) nitrofurantoin 100 mg PO BID 7 Days #14 cap 06/27/21 monohydrate/macrocrystals 100 mg capsule (Macrobid) Medications multivitamin 1 tab PO QAM 02/04/18 [History Confirmed 07/06/21] cholecalciferol (vitamin D3) 25 mcg (1,000 unit) capsule (Vitamin D3) 1,000 unit PO QAM 07/29/19 [History Confirmed 07/06/21] calcium 600 mg capsule 600 mg PO QAM 09/27/20 [History Confirmed 07/06/21] levothyroxine 25 mcg tablet 37.5 mcg PO QAM #135 tab 10/24/20 [Rx Confirmed 07/06/21] gabapentin 600 mg tablet 300 mg PO BID #60 tab 10/25/20 [Rx Confirmed 07/06/21] diclofenac sodium 1 % topical gel (Voltaren Arthritis Pain) 2 g TOPICAL QID #2 g 11/03/20 [Rx Confirmed 07/06/21] lidocaine 5 % topical patch 1 patch TRANSDERMAL QAM #1 ea 11/03/20 [Rx Confirmed 07/06/21] thiamine HCl (vitamin B1) 100 mg tablet (Vitamin B-1) 100 mg PO QAM #30 tab 01/02/21 [Rx Confirmed 07/06/21] syringe with needle 3 mL 25 gauge x 1" (BD Luer-Veronica Syringe) #100 ea 02/22/21 [Rx Confirmed 07/06/21] Wheelchair (Powered) (Power Wheelchair) #1 ea 03/05/21 [Rx Confirmed 07/06/21] diltiazem HCl 240 mg capsule,24 hr,extended release 240 mg PO QAM #90 cap 03/13/21 [Rx Confirmed 07/06/21] meclizine 25 mg tablet 25 mg PO Q6H PRN #30 tab 03/22/21 [Rx Confirmed 07/06/21] rivaroxaban 20 mg tablet (Xarelto) 20 mg PO QAM #90 tab 03/22/21 [Rx Confirmed 07/06/21] atorvastatin 40 mg tablet 40 mg PO HS #90 tab 03/26/21 [Rx Confirmed 07/06/21] insulin glargine 100 unit/mL (3 mL) subcutaneous pen (Lantus Solostar U-100 Insulin) 31 unit SQ HS #15 ml 05/04/21 [Rx Confirmed 07/06/21] lisinopril 10 mg tablet 10 mg PO QAM #90 tab 05/21/21 [Rx Confirmed 07/06/21] cyanocobalamin (vitamin B-12) 1,000 mcg/mL injection kit 1,000 mcg IM MONTHLY #1 ea 05/23/21 [Rx Confirmed 07/06/21] pantoprazole 40 mg tablet,delayed release 40 mg PO QAM #90 tab 05/23/21 [Rx Confirmed 07/06/21] dulaglutide 3 mg/0.5 mL subcutaneous pen injector 3 mg SUBCUT WK 05/28/21 [History Confirmed 07/06/21] duloxetine 30 mg capsule,delayed release 30 mg PO QAM 05/28/21 [History Confirmed 07/06/21] duloxetine 60 mg capsule,delayed release 60 mg PO QAM 05/28/21 [History Confirmed 07/06/21] glipizide 5 mg tablet 5 mg PO QAM 05/28/21 [History Confirmed 07/06/21] letrozole 2.5 mg tablet 2.5 mg PO QAM 05/28/21 [History Confirmed 07/06/21] acetaminophen 500 mg tablet (Tylenol Extra Strength) 1,000 mg PO TID PRN #90 tab 05/29/21 [Rx Confirmed 07/06/21] lancets 33 gauge (BD Ultra Fine Lancets) #100 ea 06/11/21 [Rx Confirmed 07/06/21] pen needle, diabetic 32 gauge x 5/32" (Easy Comfort Pen Lovejoy) #100 ea 06/11/21 [Rx Confirmed 07/06/21] blood sugar diagnostic (OneTouch Ultra Test) #100 ea 06/20/21 [Rx Confirmed 07/06/21] sulfamethoxazole 800 mg-trimethoprim 160 mg tablet (Bactrim DS) 1 tab PO BID #60 tab 06/20/21 [Rx Confirmed 07/06/21] nitrofurantoin monohydrate/macrocrystals 100 mg capsule (Macrobid) 100 mg PO BID 7 Days #14 cap 06/27/21 [Rx Confirmed 07/06/21] lorazepam 0.5 mg tablet 0.5 mg PO HS 07/06/21 [History Confirmed 07/06/21] palbociclib 125 mg tablet (Ibrance) 125 mg PO QAM 07/06/21 [History Confirmed 07/06/21] Take morning of surgery With a small sip of water, OTHERWISE NOTHING TO EAT OR DRINK AFTER MIDNIGHT: Insulin Dependent Diabetic Patients * Test your blood sugar the morning of surgery * If Blood Sugar is GREATER THAN 150, take HALF of your regular dose of: * If Blood Sugar is LESS THAN 150, DO NOT TAKE ANY: Other Notes If you have any questions please call us at [phone] or [phone] or [phone] or [phone]
--- NOTE | 2021-07-06 10:52 | PAT Medication Instructions ---
Medication Instructions Date of Service July 06, 2021 Home Medications Medication Instructions Recorded levothyroxine 25 mcg tablet 37.5 mcg PO QAM #135 tab 10/24/20 gabapentin 600 mg tablet 300 mg PO BID #60 tab 10/25/20 diclofenac sodium 1 % topical gel 2 g TOPICAL QID #2 g 11/03/20 (Voltaren Arthritis Pain) lidocaine 5 % topical patch 1 patch TRANSDERMAL QAM #1 ea 11/03/20 thiamine HCl (vitamin B1) 100 mg 100 mg PO QAM #30 tab 01/02/21 tablet (Vitamin B-1) syringe with needle 3 mL 25 gauge #100 ea 02/22/21 x 1" (BD Luer-Veronica Syringe) Wheelchair (Powered) (Power #1 ea 03/05/21 Wheelchair) diltiazem HCl 240 mg capsule,24 240 mg PO QAM #90 cap 03/13/21 hr,extended release meclizine 25 mg tablet 25 mg PO Q6H PRN #30 tab 03/22/21 rivaroxaban 20 mg tablet (Xarelto) 20 mg PO QAM #90 tab 03/22/21 atorvastatin 40 mg tablet 40 mg PO HS #90 tab 03/26/21 insulin glargine 100 unit/mL (3 31 unit SQ HS #15 ml 05/04/21 mL) subcutaneous pen (Lantus Solostar U-100 Insulin) lisinopril 10 mg tablet 10 mg PO QAM #90 tab 05/21/21 cyanocobalamin (vitamin B-12) 1,000 mcg IM MONTHLY #1 ea 05/23/21 1,000 mcg/mL injection kit pantoprazole 40 mg tablet,delayed 40 mg PO QAM #90 tab 05/23/21 release acetaminophen 500 mg tablet 1,000 mg PO TID PRN #90 tab 05/29/21 (Tylenol Extra Strength) lancets 33 gauge (BD Ultra Fine #100 ea 06/11/21 Lancets) pen needle, diabetic 32 gauge x #100 ea 06/11/21 5/32" (Easy Comfort Pen [place]) blood sugar diagnostic (OneTouch #100 ea 06/20/21 Ultra Test) sulfamethoxazole 800 1 tab PO BID #60 tab 06/20/21 mg-trimethoprim 160 mg tablet (Bactrim DS) nitrofurantoin 100 mg PO BID 7 Days #14 cap 06/27/21 monohydrate/macrocrystals 100 mg capsule (Macrobid) multivitamin 1 tab PO QAM cholecalciferol (vitamin D3) 25 mcg (1,000 unit) capsule (Vitamin D3) 1,000 unit PO QAM calcium 600 mg capsule 600 mg PO QAM levothyroxine 25 mcg tablet 37.5 mcg PO QAM gabapentin 600 mg tablet 300 mg PO BID diclofenac sodium 1 % topical gel (Voltaren Arthritis Pain) 2 g TOPICAL QID lidocaine 5 % topical patch 1 patch TRANSDERMAL QAM thiamine HCl (vitamin B1) 100 mg tablet (Vitamin B-1) 100 mg PO QAM diltiazem HCl 240 mg capsule,24 hr,extended release 240 mg PO QAM meclizine 25 mg tablet 25 mg PO Q6H PRN rivaroxaban 20 mg tablet (Xarelto) 20 mg PO QAM atorvastatin 40 mg tablet 40 mg PO HS insulin glargine 100 unit/mL (3 mL) subcutaneous pen (Lantus Solostar U-100 Insulin) 31 unit SQ HS lisinopril 10 mg tablet 10 mg PO QAM cyanocobalamin (vitamin B-12) 1,000 mcg/mL injection kit 1,000 mcg IM MONTHLY pantoprazole 40 mg tablet,delayed release 40 mg PO QAM dulaglutide 3 mg/0.5 mL subcutaneous pen injector 3 mg SUBCUT WK duloxetine 30 mg capsule,delayed release 30 mg PO QAM duloxetine 60 mg capsule,delayed release 60 mg PO QAM glipizide 5 mg tablet 5 mg PO QAM letrozole 2.5 mg tablet 2.5 mg PO QAM acetaminophen 500 mg tablet (Tylenol Extra Strength) 1,000 mg PO TID PRN sulfamethoxazole 800 mg-trimethoprim 160 mg tablet (Bactrim DS) 1 tab PO BID nitrofurantoin monohydrate/macrocrystals 100 mg capsule (Macrobid) 100 mg PO BID 7 Days lorazepam 0.5 mg tablet 0.5 mg PO HS palbociclib 125 mg tablet (Ibrance) 125 mg PO QAM Continue as directed lidocaine 5 % topical patch 1 patch TRANSDERMAL QAM (just do not put on or near surgical site) cyanocobalamin (vitamin B-12) 1,000 mcg/mL injection kit 1,000 mcg IM MONTHLY dulaglutide 3 mg/0.5 mL subcutaneous pen injector 3 mg SUBCUT WK (just do not take morning of surgery) sulfamethoxazole 800 mg-trimethoprim 160 mg tablet (Bactrim DS) 1 tab PO BID nitrofurantoin monohydrate/macrocrystals 100 mg capsule (Macrobid) 100 mg PO BID 7 Days ASK your surgeon for instructions diclofenac sodium 1 % topical gel (Voltaren Arthritis Pain) 2 g TOPICAL QID ASK your prescriber and surgeon rivaroxaban 20 mg tablet (Xarelto) 20 mg PO QAM (must be off medication at least 72 hours in order to get spinal anesthesia) letrozole 2.5 mg tablet 2.5 mg PO QAM palbociclib 125 mg tablet (Ibrance) 125 mg PO QAM DO NOT take the morning of surgery multivitamin 1 tab PO QAM cholecalciferol (vitamin D3) 25 mcg (1,000 unit) capsule (Vitamin D3) 1,000 unit PO QAM calcium 600 mg capsule 600 mg PO QAM thiamine HCl (vitamin B1) 100 mg tablet (Vitamin B-1) 100 mg PO QAM lisinopril 10 mg tablet 10 mg PO QAM glipizide 5 mg tablet 5 mg PO QAM Take morning of surgery With a small sip of water, OTHERWISE NOTHING TO EAT OR DRINK AFTER MIDNIGHT: levothyroxine 25 mcg tablet 37.5 mcg PO QAM gabapentin 600 mg tablet 300 mg PO BID diltiazem HCl 240 mg capsule,24 hr,extended release 240 mg PO QAM meclizine 25 mg tablet 25 mg PO Q6H PRN (if needed) pantoprazole 40 mg tablet,delayed release 40 mg PO QAM duloxetine 30 mg capsule,delayed release 30 mg PO QAM duloxetine 60 mg capsule,delayed release 60 mg PO QAM acetaminophen 500 mg tablet (Tylenol Extra Strength) 1,000 mg PO TID PRN (okay to take up to 4 hours prior to surgery if needed) Take evening before surgery gabapentin 600 mg tablet 300 mg PO BID meclizine 25 mg tablet 25 mg PO Q6H PRN (if needed) atorvastatin 40 mg tablet 40 mg PO HS insulin glargine 100 unit/mL (3 mL) subcutaneous pen (Lantus Solostar U-100 Insulin) 31 unit SQ HS acetaminophen 500 mg tablet (Tylenol Extra Strength) 1,000 mg PO TID PRN (if needed) lorazepam 0.5 mg tablet 0.5 mg PO HS Other Notes If you have any questions please call us at [phone] or [phone] or [phone] or [phone]
--- NOTE | 2021-07-09 08:37 | Anesthesiology Consultation ---
Date of Service July 09, 2021 Assessment & Plan (1) Encounter for pre-operative examination: - check BSG and CBC with diff am DOS. - right subclavian Aport. - pacemaker: Medtronic. - Case discussed with Dr. Garcia who agreed with CBC with diff am DOS and advi sed patient is acceptable risk to proceed with surgery. - heme onc 05/23/2021 [place]: "...metastatic breast cancer...new 1.6 cm ill defined lesion within right hepatic lobe, highly suspicious for metastatic focus; decrease in size of biopsy proven metastatic lesion within right hepatic lobe; low density trace fluid collection within left lower flank/hip measuring 15 cm (possibly related to hematoma). Liver lesion is concerning for progression of her disease; updated tumor markings are pending...continues to suffer from frequent falls at home...Hgb dropped to 5.9 on 04/30, outpatient transfusion support ordered by PCP...follow results of updated tumor markers...Ibrance + Fulvestrant for progressive disease...will arrange chemotherapy discussion...monitor weekly labs for 6-8 weeks after starting med (due to acute anemia over the 3 weeks along with risk of medication induced myelosuppression)..." - electrophysiology 03/12/2021 [place]: "...pacemaker was fully evaluated today including threshold measurements and interrogation of data storage...frequent atrial fibrillation was identified. tachy-monica syndrome...majority of time in atrial fibrillation with a somewhat rapid heart rate...we could consider restarting amiodarone, but in the absence of symptoms I think rate control would be more appropriate...double her dose of diltiazem to 240 milligrams daily..." - COVID screening: Per assessment on 07/09/2021: Travel screen negative, no known COVID-19 positive contacts or current COVID-19 related symptoms in past 2 weeks. Patient vaccinated. COVID test completed at PAT appointment today. Chart Review Chart Review: Acceptable Risk for Surgery and Patient seen in Pre Admission Testing Teaching & Discussion Pre-Anesthesia Teaching/Discussion Notes: Instructed NPO after midnight before surgery, except medications with 15 cc of water. Medication instructions provided according to the PAT guidelines. History Surgery Operation Date: 07/11/21 10:55 Proposed Procedures p Right Revision Total Knee Replacement with Antibiotic Spacer - Nathan Huang MD Height/Weight Height: 5 ft 2 in Weight: 79 kg Allergies Allergy/AdvReac Type Severity Reaction Status Date / Time metformin AdvReac Mild Insomnia Verified 07/06/21 08:34 Medications Home Medications Medication Instructions Recorded Confirmed Last Taken multivitamin 1 tab PO QAM 02/04/18 07/06/21 06/19/21 cholecalciferol (vitamin D3) 25 1,000 unit PO QAM 07/29/19 07/06/21 06/19/21 mcg (1,000 unit) capsule (Vitamin D3) calcium 600 mg capsule 600 mg PO QAM 09/27/20 07/06/21 06/19/21 levothyroxine 25 mcg tablet 37.5 mcg PO QAM #135 tab 10/24/20 07/06/21 06/19/21 gabapentin 600 mg tablet 300 mg PO BID #60 tab 10/25/20 07/06/21 06/19/21 diclofenac sodium 1 % topical gel 2 g TOPICAL QID #2 g 11/03/20 07/06/21 06/19/21 (Voltaren Arthritis Pain) lidocaine 5 % topical patch 1 patch TRANSDERMAL QAM #1 ea 11/03/20 07/06/21 06/19/21 thiamine HCl (vitamin B1) 100 mg 100 mg PO QAM #30 tab 01/02/21 07/06/21 06/19/21 tablet (Vitamin B-1) syringe with needle 3 mL 25 gauge #100 ea 02/22/21 07/06/21 Unknown x 1" (BD Luer-Veronica Syringe) Wheelchair (Powered) (Power #1 ea 03/05/21 07/06/21 Unknown Wheelchair) diltiazem HCl 240 mg capsule,24 240 mg PO QAM #90 cap 03/13/21 07/06/21 06/19/21 hr,extended release meclizine 25 mg tablet 25 mg PO Q6H PRN #30 tab 03/22/21 07/06/21 06/19/21 rivaroxaban 20 mg tablet (Xarelto) 20 mg PO QAM #90 tab 03/22/21 07/06/21 06/19/21 atorvastatin 40 mg tablet 40 mg PO HS #90 tab 03/26/21 07/06/21 06/19/21 insulin glargine 100 unit/mL (3 31 unit SQ HS #15 ml 05/04/21 07/06/21 06/19/21 mL) subcutaneous pen (Lantus Solostar U-100 Insulin) lisinopril 10 mg tablet 10 mg PO QAM #90 tab 05/21/21 07/06/21 06/19/21 cyanocobalamin (vitamin B-12) 1,000 mcg IM MONTHLY #1 ea 05/23/21 07/06/21 06/19/21 1,000 mcg/mL injection kit pantoprazole 40 mg tablet,delayed 40 mg PO QAM #90 tab 05/23/21 07/06/21 06/19/21 release dulaglutide 3 mg/0.5 mL 3 mg SUBCUT WK 05/28/21 07/06/21 06/19/21 subcutaneous pen injector duloxetine 30 mg capsule,delayed 30 mg PO QAM 05/28/21 07/06/21 06/19/21 release duloxetine 60 mg capsule,delayed 60 mg PO QAM 05/28/21 07/06/21 06/19/21 release glipizide 5 mg tablet 5 mg PO QAM 05/28/21 07/06/21 06/19/21 letrozole 2.5 mg tablet 2.5 mg PO QAM 05/28/21 07/06/21 06/19/21 acetaminophen 500 mg tablet 1,000 mg PO TID PRN #90 tab 05/29/21 07/06/21 06/19/21 (Tylenol Extra Strength) lancets 33 gauge (BD Ultra Fine #100 ea 06/11/21 07/06/21 Unknown Lancets) pen needle, diabetic 32 gauge x #100 ea 06/11/21 07/06/21 Unknown 5/32" (Easy Comfort Pen [place]) blood sugar diagnostic (OneTouch #100 ea 06/20/21 07/06/21 Unknown Ultra Test) sulfamethoxazole 800 1 tab PO BID #60 tab 06/20/21 07/06/21 Unknown mg-trimethoprim 160 mg tablet (Bactrim DS) nitrofurantoin 100 mg PO BID 7 Days #14 cap 06/27/21 07/06/21 Unknown monohydrate/macrocrystals 100 mg capsule (Macrobid) lorazepam 0.5 mg tablet 0.5 mg PO HS 07/06/21 07/06/21 Unknown palbociclib 125 mg tablet (Ibrance) 125 mg PO QAM 07/06/21 07/06/21 Unknown oxycodone 5 mg tablet 5 mg PO Q12H PRN #90 tab 07/09/21 Unknown Past Medical History Medical History (Updated 07/09/21 @ 15:35 by Michelle Lozano PA-C) Anemia h/o blood transfusions, last within past 3 months per pt, H&H 10-11/33-35% Anxiety Aortic stenosis Mild AV stenosis per 12/2019 ECHO. (MERLENE= 1.6cm2; AV mean gradient= 7.8mmHg; AV max velocity= 1.939 m/s) Atrial fibrillation pacer/ Xarelto Atrial flutter Cervical spine disease Chronic pain Degenerative disc disease Depression Diabetes mellitus, type 2 IDDM Gastroesophageal reflux disease controlled, stable per pt Hx of cardiac pacemaker [facility]. Medtronic device. follows with Dr Ramires > last checked approx 2 months ago Hx of tachycardia-bradycardia syndrome reason for pacemaker Hypercholesterolemia Hypothyroidism Infiltrating ductal carcinoma of left breast Initially dx'ed in 2015- s/p lumpectomy, XRT and anastrozole Metastatic breast cancer March 2020, follows with [facility] Liver mass Pt denies but 05/17/20 PET scan shows 2.5 right hepatic lobe mass consistent with known hepatic metastasis Metastatic lung carcinoma per previous records, follows with [place] [facility]-dx per heme onc records is metastatic breast cancer (hepatic lesion), noted stable 5 mm nodule within RLL per chest CT 04/2020 Obstructive sleep apnea does not wear machine Painful total knee replacement, right Peripheral neuropathy hands-bilat carptal tunnel syndrome Patient denies h/o stroke, seizures, heart attack, heart failure, or blood clots. Exercise / Class Metabolic Activity III < 4 Walking/Shop/Light housework (mild SOB if increases activity since reduced activity with R knee dysfunction-uses rolling walker to ambulate) Past Family History Family History Unknown Breast cancer Emphysema lung Mother Diabetes Heart disease Father Heart disease Other No family history of adverse response to anesthesia Denies family history of Ovarian cancer Prostate cancer Coronary heart disease Colorectal cancer Past Surgical History Surgical History (Updated 07/09/21 @ 15:32 by Michelle Lozano PA-C) H/O bilateral hip replacements History of ankle surgery left History of carpal tunnel surgery of left wrist 06/2021 History of carpal tunnel surgery of right wrist History of section x1 History of colonoscopy History of evacuation of hematoma Hematoma right breast and right chest 08/31/13 Dr. Shah History of total knee arthroplasty bilateral Port-A-Cath in place Insertion of Mediport Right Subclavian Dr. Shah 06/13/2020 Status post appendectomy Status post arthroscopy of left shoulder Status post gastric bypass for obesity Status post laparoscopic cholecystectomy Status post lumbar spine surgery for decompression of spinal cord Status post panniculectomy Status post partial mastectomy of left breast Status post repair of ventral hernia Status post total abdominal hysterectomy and bilateral salpingo-oophorectomy Past Anesthesia History No Hx of Anesthesia Complications and No Family Hx of Anesthesia Complications History of PONV No Hx of PONV and No Hx of Motion Sickness Social History Smoking Status: Former smoker tobacco type: cigarettes Do You Dip or Chew Tobacco: No Smoking End Date: 15 yrs ago Hx Alcohol Use: Yes Alcohol type: wine alcohol intake frequency: holidays/special occasions only Hx Substance Use: No substance use type: does not use Review of Systems Rare palpitations, brief, self-resolving, ongoing x 1 year, denies change or worsening. Patient denies chest pain, shortness of breath, fever, chills, cough, or wheezing. Physical Exam Vital Signs Vitals BP 130/79 P 68 TEMP 98.1 SP02 97% on RA RESP 17 Physical Full cervical extension range of motion without pain Full TMJ range of motion TMD 3.5 finger breaths Mallampati Score 3 Dentition: intact, two plates; denies chipped or loose teeth Lungs: normal respiratory effort. Clear throughout to auscultation, no adventitious breath sounds Cardiac: regular rate and rhythm, no murmurs noted Carotid arteries: negative bruit bilat Extremities: no distal extremity edema Lab Results Anesthesia Preop Results Results Anesthesia Widget: WBC 3.40 K/uL (4.8-10.8) L 07/09/21 Hgb 10.6 g/dL (12.0-16.0) L 07/09/21 Hct 34.5 % (37-47) L 07/09/21 Plt 460 K/uL (130-400) H 07/09/21 Na 135 mmol/L (136-145) L 07/09/21 K 4.5 mmol/L (3.5-5.1) 07/09/21 Cl 99 mmol/L (98-107) 07/09/21 CO2 29 mmol/L (21-32) 07/09/21 BUN 15 mg/dl (6-23) 07/09/21 Creat 0.65 mg/dl (0.6-1.2) 07/09/21 Glucose Level 128 mg/dl (70-99(Fasting)) H 07/09/21 POC Glucose 91 mg/dl (70-99) 06/20/21 PT 10.9 Seconds (9.0-12.0) 07/09/21 PTT 31.0 Seconds (21.0-31.0) 07/09/21 INR 1.1 (0.9-1.1) 07/09/21 HA1c 6.8 % (4.5-5.6) H 07/09/21 Urine Color Dark Yellow 06/25/21 Urine Appearance Clear (Clear) 06/25/21 Urine pH 8.5 (4.5-7.5) H 06/25/21 Urine Specific [place] 1.016 (1.000-1.030) 06/25/21 Urine Protein Negative (Negative) 06/25/21 Urine Glucose (UA) Negative (Negative) 06/25/21 Urine Ketones Negative (Negative) 06/25/21 Urine Blood Trace (Negative) H 06/25/21 Urine Nitrite Negative (Negative) 06/25/21 Urine Bilirubin Negative (Negative) 06/25/21 Urine Urobilinogen Negative (Negative) 06/25/21 Urine Leukocyte Esterase Negative (Negative) 06/25/21 Urine WBC (Auto) 1-5 /hpf (0-5) 06/25/21 Urine RBC (Auto) 0-4 /hpf (0-4) 06/25/21 Urine Hyaline Casts (Auto) 1-5 /lpf (0-5) 06/25/21 Urine Epithelial Cells (Auto) >30 /lpf (0-5) H 06/25/21 Urine Bacteria (Auto) 2+ (Negative) H 06/25/21 Blood Type O Positive 07/09/21 Antibody Screen POSITIVE A 07/09/21 Lab Comments: Blood bank confirmed they are aware of blood type and positive antibody, advised they are screening units and nothing further is needed from PATLeeroy Villagomez and Shelley at surgeon's office made aware of abnormal UA. 07/13/2021 AST 22 ALT 20 Alk phos 84 Testing Electrocardiogram Date: 07/09/21 Sinus rhythm with PACs, rate 66 bpm Chest X-Ray Date: 07/09/21 FINDINGS: AP and lateral chest radiographs are compared to study dated 12/30/2020 and correlated with chest CT dated 05/22/2021. A 2-lead cardiac pacemaker is unchanged in position and partially obscures the left mid chest. A right subclavian central venous infusion port is again noted. The heart is enlarged noting atherosclerotic calcification of the thoracic aorta. The pulmonary vasculature is noncongested. Chronic interstitial thickening is similar to previous. Scarring/atelectasis is noted at the lung bases. No airspace consolidation or pleural effusion is identified. There is no pneumothorax. The skeletal structures are osteopenic. The bony thorax appears intact. Degenerative change is noted in the right shoulder and thoracic spine. A left shoulder arthroplasty is in place. IMPRESSION: 1. Cardiomegaly and cardiac pacemaker with no radiographic evidence of congestive failure. 2. No airspace consolidation or pleural effusion is identified. Echocardiogram Date: 01/14/20 EF 55-60% No regional wall motion abnormalities noted No significant change compared to prior echo 10/2018 Normal left ventricular size, thickness and function Mild valvular aortic stenosis Mild mitral regurgitation Mild tricuspid regurgitation Mild aortic calcification Other Testing Chest CT 05/22/2021 IMPRESSION: 1. There is a new 1.6 cm ill-defined hypodense lesion within the anterior segment of the right hepatic lobe. This is highly suspicious for a metastatic focus. 2. Decrease in size in the biopsy-proven metastatic lesion within the posterior segment of the right hepatic lobe. 3. No evidence for metastatic disease within the chest. 4. A low-density subcutaneous trace fluid collection within the left lower flank/hip which measures approximately 14 cm. This is nonspecific but favors a subacute/organizing hematoma or seroma. 5. Additional findings as described above. (detailed report under imaging) Abdomen/pelvis CT 05/22/2021 IMPRESSION: 1. There is a new 1.6 cm ill-defined hypodense lesion within the anterior segment of the right hepatic lobe. This is highly suspicious for a metastatic focus. 2. Decrease in size in the biopsy-proven metastatic lesion within the posterior segment of the right hepatic lobe. 3. No evidence for metastatic disease within the chest. 4. A low-density subcutaneous trace fluid collection within the left lower flank/hip which measures approximately 14 cm. This is nonspecific but favors a subacute/organizing hematoma or seroma. 5. Additional findings as described above. (detailed report under imaging) PET skull-mid thigh 02/07/2021 No evidence of recurrent or metastatic disease. In particular, previously noted hepatic and thyroid foci of uptake have resolved. C-spine CT 12/29/2020 IMPRESSION: 1. There is no evidence of fracture or subluxation involving the cervical spine. 2. Osteopenia and spondylotic change as above. Brain MRI 08/16/2020 IMPRESSION: 1. No acute intracranial abnormality. 2. No evidence for intracranial metastatic disease.
[~2021-07-11 08:42] MED LIST changes: -ACET300T2 PO; +ACETAMINOPHEN 500 MG TAB PO SCH; -ANAS1TAB7 PO; -ARTIOIN OPB; -ATOR-24 PO; +BUPIVACAINE 0.5 % 5 MG/1 ML PF 10ML VIAL ONE; -CALC600T24 PO; -CITA40TA4 PO; -CYAN1DRO IM; +DAKIN'S SOLN 0.5% FULL STRENGTH 473ML BTL EXT ONE; +FAMOTIDINE 20 MG TAB PO SCH; +GABAPENTIN 300 MG CAP PO SCH; -GLIP10TA9 PO; -INSDGI SC; -LEVO50TA6 PO; -LISI-461 PO; +LR 500ML BOLUS, THEN 15ML/HR IV SCH; +LR 60ML/HR IV SCH; -METO25TA56 PO; -MULT-506 PO; -PANT40TA PO; +ROPIVACAINE 0.5% 5 MG/ML 30 ML VIAL ONE; -SIME80CH PO; +Scopolamine 1 MG TDSY TD SCH; +TOBRAMYCIN SULFATE VIAL ONE; -TRAM-10 PO; +TRANEXAMIC ACID 1,000 MG **IV Intra-op IV SCH; +VANCOMYCIN HCL 1000MG/20ML VIAL ONE; -VERA120T15 PO; -WARF4TAB8 PO; -WARF5TAB7 PO
--- NOTE | 2021-07-11 09:07 | History & Physical Bridge Note ---
Date of Service July 11, 2021 History & Physical Bridge Note I have examined the patient, reviewed the History & Physical and in the interval since the performance of the History & Physical I have noted the following changes of clinical significance: no changes noted
[2021-07-11] MEDS ORDERED: DEXTROSE 50% 50 ML SYRINGE IV ONE ×2 (09:11→11:46)
[2021-07-11] MEDS: DEXTROSE 50% 50 ML SYRINGE IV ONE ×3 (09:13→11:28)
[2021-07-11] MEDS ORDERED: VANCOMYCIN CONSULT ACTIVE PRN ×3 (10:06→20:39)
[2021-07-11] MEDS ORDERED: MIDAZOLAM HCL 1 MG/ML 2ML VIAL ONE ×2 (10:17→11:01)
[2021-07-11] MEDS ORDERED: VANCOMYCIN HCL 1,250 MG in SODIUM CHLORIDE 0.9% 250 ML IV ONE (10:30)
[2021-07-11 10:39] LABS: Basophils # (auto) 0.03 K/uL (0-0.2); Basophils % (auto) 0.8 %; Eosinophils # (auto) 0.03 K/uL (0-0.5); Eosinophils % (auto) 0.8 %; Hematocrit (blood only) 30.7 % (37-47); Hemoglobin 9.7 g/dL (12.0-16.0); Lymphocytes # (auto) 1.21 K/uL (1.2-3.4); Lymphocytes % (auto) 33.9 %; Mean Corpuscular Hemoglobin 29.9 pg (25-34); Mean Corpuscular Volume 94.8 fL (80-100); Mean Platelet Volume 9.1 fL (7.4-10.4); Monocytes # (auto) 0.17 K/uL (0.11-0.59); Monocytes % (auto) 4.8 %; Neutrophils # (auto) 2.13 K/uL (1.4-6.5); Neutrophils % (auto) 59.7 %; Platelet Count 382 K/uL (130-400); RDW Coefficient of Variation 17.8 % (11.5-14.5); RDW Standard Deviation 61.4 fL (36.4-46.3); Red Blood Count 3.24 M/uL (4.2-5.4); White Blood Count 3.57 K/uL (4.8-10.8)
[2021-07-11 10:53] LABS: Mean Corpuscular Hgb Conc 31.6 g/dL (32-36)
[2021-07-11] MEDS ORDERED: ePHEDrine sulfate 50 MG/ML AMP IV PRN (11:16)
[2021-07-11] MEDS ORDERED: ATROPINE SULFATE 0.1 MG/ML 10ML SYR IV PRN (11:16)
[2021-07-11] MEDS ORDERED: ONDANSETRON INJ 2 MG/ML 2 ML VIAL IV PRN (11:16)
[2021-07-11] MEDS ORDERED: BUPIVACAINE/EPINEPHRINE 0.25% 1:200,000 30 ML VIAL ONE (13:52)
[2021-07-11] MEDS ORDERED: SODIUM CHLORIDE 0.9% PF 50 ML VIAL ONE (13:52)
[2021-07-11] MEDS ORDERED: BUPIVACAINE LIPOSOME 1.3% 266 MG/20 ML VIAL ONE (13:52)
[2021-07-11] MEDS ORDERED: fentaNYL citrate 100 MCG/2 ML VIAL ONE (14:38)
[2021-07-11] MEDS ORDERED: ONDANSETRON INJ 2 MG/ML 2 ML VIAL ONE (14:39)
[2021-07-11] MEDS ORDERED: PROPOFOL IV EMULSION 10 MG/ML 20 ML VIAL IV ONE (14:39)
[2021-07-11] MEDS: HYDROmorphone INJ 1 MG/ML SYRINGE IV PRN ×8 (15:30→16:07)
--- NOTE | 2021-07-11 15:35 | Post Operative Brief Note ---
PG Immediate Post Op with CF Date of Surgery July 11, 2021 Pre & Post Diagnosis Operation Date: 07/11/21 10:55 Pre-Op Diagnosis: Right Infected Total Knee Replacement Post-Op Diagnosis: Right Infected Total Knee Replacement I identified the patient and participated in the time-out.: Yes Procedure Operation Date: 07/11/21 10:55 Actual Procedures p Right Revision Total Knee Replacement with Antibiotic Spacer(Right) - Nathan Huang MD Surgeon Nathan Huang MD Front End Drupal Developer Edmund Baker PA-C Estimated Blood Loss 100 Findings Consistent with Post-Op Diagnosis Specimens Specimen Description: Cultures: 1) Right Knee Synovial Fluid 2) Right Knee Synovial Tissue Drains Sage Catheter Complications none Disposition Accompanied Patient To Recovery: No
--- NOTE | 2021-07-11 16:08 | Anesthesiology Progress Note ---
Date of Service July 11, 2021 Anesthesia Post Procedure Vital Signs Vital Signs: Temp Pulse Resp BP Pulse Ox 07/11/21 15:55 70 16 147/58 H 97 07/11/21 15:45 60 16 139/59 L 98 07/11/21 15:35 60 18 161/59 H 98 07/11/21 15:25 60 18 126/69 100 07/11/21 15:18 36.2 C L 61 18 127/62 100 07/11/21 09:49 36.7 C 69 18 118/67 98 Transfer of Care Handoff Completed per policy Notes Mental Status: alert / awake / arousable Patient Amnestic to Procedure: Yes Nausea / Vomiting: adequately controlled Pain: adequately controlled Airway Patency, RR, SpO2: stable & adequate BP & HR: stable & adequate Hydration State: stable & adequate Anesthetic Complications: no major complications apparent
--- NOTE | 2021-07-11 16:15 | XRay Report ---
RIGHT KNEE 2 VIEWS History: Right total knee arthroplasty. Degenerative arthritis. Postop. FINDINGS: The patient is status post revision of a right total knee arthroplasty. The hardware is int act. No fracture or dislocation. Skin rochelle are in place. A small amount of extruded cement is seen along the medial tibial plateau and medial femoral condyle. IMPRESSION: Right total knee arthroplasty revision. No evidence for hardware complication. ACT 112: Negative or not required by law. Electronically signed by: Shan Hollingsworth M.D. 07/11/2021 4:14 PM
[2021-07-11] MEDS ORDERED: bisacodyL 10 MG SUPP PR PRN (17:08)
[2021-07-11] MEDS ORDERED: MAGNESIUM HYDROXIDE SUSP 30 ML UDC PO PRN (17:08)
[2021-07-11] MEDS ORDERED: PHARMACY GLYCEMIC MGMT CONSULT PRN ×2 (17:08→19:29)
[2021-07-11] MEDS ORDERED: METOCLOPRAMIDE HCL INJ 5 MG/ML 2 ML VIAL IV PRN (17:08)
[2021-07-11] MEDS ORDERED: NALOXONE HCL 0.4 MG/1 ML VIAL/CARP IV PRN (17:08)
[2021-07-11] MEDS ORDERED: ALUMINUM/MAGNESIUM SUSP 30 ML UDC PO PRN (17:08)
[2021-07-11] MEDS: Scopolamine CHECK PATCH PLACEMENT SCH ×2 (17:17→23:30)
[2021-07-11] MEDS ORDERED: MECLIZINE HCL 25 MG TAB PO PRN (17:22)
[2021-07-11] MEDS ORDERED: ACETAMINOPHEN 500 MG TAB PO PRN (17:29)
[2021-07-11] MEDS ORDERED: ONDANSETRON 4 MG OD TAB PO PRN (17:36)
[2021-07-11] MEDS: SODIUM CHLORIDE 0.9% 1000ML 1,000 ML IV SCH (17:37)
[2021-07-11] MEDS: oxyCODONE HCL IR 5 MG TAB (IMMEDIATE RELEASE) PO PRN (17:40)
[2021-07-11] MEDS: ASCORBIC ACID 500 MG TAB PO SCH (18:08)
[2021-07-11] MEDS: FERROUS GLUCONATE 324 MG TAB PO SCH (18:08)
[2021-07-11] MEDS: KETOROLAC TROMETHAMINE 15 MG/ML VIAL IV SCH ×2 (18:08→23:29)
--- NOTE | 2021-07-11 18:52 | Hospitalist Consultation ---
Date of Consultation July 11, 2021 Assessment & Plan (1) Infected prosthetic knee joint: As per HPI and orthopaedics note - Currently awaiting further culture results - Pain control per Ortho- appropriate with rescue Narcan available - has bowel regimine already ordered - IVF per Ortho - ABX- will assist with tailoring following culture results- currently agree with Vancomycin - VTE: SCDs, - Sage- per orthopaedics- follow closely as she has also had frequent UTI - Xarelto- Ok to restart when Orthopaedics feels hemostasis is achieved - PT/OT already done Blood culture pending- is reassuring that she does not appear bacteremic- Will hold on PICC line for now - ECHO if blood culture positive or symptoms change (2) Atrial fibrillation: Rate controlled with pacemaker - Pacer MODE AAIR with mode switch to DDDR - Continue Diltiazem (3) Infiltrating ductal carcinoma of left breast: Continue her Palbociclib if she brought hers in or is formulary - No acute needs - Mediport site looks clean (4) Diabetes mellitus type 2, uncontrolled: On Trulicity and Glipizide at home - Pharmacy consult placed- follow for 24-48 hours with oral intake following surgery and infection (5) Aortic stenosis: Murmur she has does not appear as this is new - follow fluid volume status - no current complaints (6) Anticoagulated: Afib on Xarelto- continue as above when appropriate (7) Hypothyroidism: Continue Synthroid- 25 mcg (8) Obstructive sleep apnea: History of- does not wear device/machine - follow post operatively and with sedating medications - currently with portable pulse oximetry attached and good SPO2 - could consider ETCO2 monitoring (9) Chronic GERD: Continue Protonix Supervising Physician Co-Signing Physician Notes I personally saw and examined the patient. I verified all edwards points and agree with HUANG Ordaz with the following exceptions and/or additions: 71 year old female elective orthopedic admission for infected right knee prosthesis s/p surgery. Coag negative staph on x2 joint fluids 04/19 and 04/30. Of note she also had 1/2 blood cultures positive for coag negative staph on 12/31. Gram stain negative from current fluid. O/E HS1+2, systolic murmur loudest at apex, Chest CTAB, Abdo SNT, knee in surgical wrap (not removed), NV intact distally A/P Infected knee prosthesis - continue vancomycin pending surgical cultures. Take blood cultures now - delay PICC until 48 hours negative. If positive will need workup for infective endocarditis. History of Present Illness Reason for Consultation: medical management Requesting Physician: Dr. Huang Attending Physician: Nathan Huang MD History of Present Illness 71 YOF with past medical history of: DCIS of left breast with mets to liver and lung (on Palbocicilib oral maintenance), Mediport placement, afib (on Xarelto), pacemaker, LAKSHMI, peripheral neuropathy, right knee TKA, hypothyroidism, chronic pain, depression, DMII. Patient is admitted for right infected total knee replacement. She underwent revision of the total knee today with removal of hardware, irrigation/debridement and antibiotic spacer placement. She is POD #0 and was evaluated in her room on the acuña. In short the patient has had history of frequent falls, she was admitted in December for fall with evaluation at that time for loosening of hardware and effusion, but was having pain in her knee prior to that time with falls. She was noted to continued to be followed up with her Orthopaedics team and underwent aspiration and culture on 05.08 and gram stain at that time was methicillin resistant coag-negative staphylococcus, this was again repeated on 04/30 with persistent methicillin coag negative staphylococcus. She also had 1/4 bottles of her blood cultures drawn on her December admission with CONS with no further sensitives. She currently is on Vancomycin while awaiting her wound culture and fluid culture to speciate. She has been started on Vancomycin in the meantime. Will hold on placement of PICC line at this time, draw blood cultures to ensure she is not systemically bacteremic as this would need further investigation and treatment with her other lines and pacemaker. She denies any systemic signs of infection without fevers at home or at night and no other concerns. She has undergone carpal tunnel surgery in between her previous admissions and today's surgery without any complications. Her WBC count has stabilized since April when it was elevated to 12-15. Her Gram stain from her synovial fluid is negative for any organisms. Reviewing her previous culture data available FERNANDO on the Vancomycin was 2- which should be appropriate for now at higher trough (18-20) would be appropriate, follow with pharmacy. Recommendations: - Vancomycin appropriate for now pending further culture results - Blood cultures obtained - PICC line - hold on placement until blood cultures resulted - Continue to hold Xarelto until hemostasis is ensured - Continue rate controlling agents - Blood glucose goal <180- Will add glycemic pharmacy consult for now until her oral intake stabilizes and infectious process controlled - Further recommendations to follow Allergies Allergy/AdvReac Type Severity Reaction Status Date / Time metformin AdvReac Mild Insomnia Verified 07/11/21 09:43 Home Medications Medication Instructions Recorded Confirmed Type multivitamin 1 tab PO QAM 02/04/18 07/11/21 History cholecalciferol (vitamin D3) 25 1,000 unit PO QAM 07/29/19 07/11/21 History mcg (1,000 unit) capsule (Vitamin D3) calcium 600 mg capsule 600 mg PO QAM 09/27/20 07/11/21 History levothyroxine 25 mcg tablet 37.5 mcg PO QAM #135 tab 10/24/20 07/11/21 Rx gabapentin 600 mg tablet 300 mg PO BID #60 tab 10/25/20 07/11/21 Rx diclofenac sodium 1 % topical gel 2 g TOPICAL QID #2 g 11/03/20 07/11/21 Rx (Voltaren Arthritis Pain) thiamine HCl (vitamin B1) 100 mg 100 mg PO QAM #30 tab 01/02/21 07/11/21 Rx tablet (Vitamin B-1) syringe with needle 3 mL 25 gauge #100 ea 02/22/21 07/06/21 Rx x 1" (BD Luer-Veronica Syringe) Wheelchair (Powered) (Power #1 ea 03/05/21 07/06/21 Rx Wheelchair) meclizine 25 mg tablet 25 mg PO Q6H PRN #30 tab 03/22/21 07/11/21 Rx rivaroxaban 20 mg tablet (Xarelto) 20 mg PO QAM #90 tab 03/22/21 07/11/21 Rx atorvastatin 40 mg tablet 40 mg PO HS #90 tab 03/26/21 07/11/21 Rx insulin glargine 100 unit/mL (3 31 unit SQ HS #15 ml 05/04/21 07/11/21 Rx mL) subcutaneous pen (Lantus Solostar U-100 Insulin) lisinopril 10 mg tablet 10 mg PO QAM #90 tab 05/21/21 07/11/21 Rx cyanocobalamin (vitamin B-12) 1,000 mcg IM MONTHLY #1 ea 05/23/21 07/11/21 Rx 1,000 mcg/mL injection kit dulaglutide 3 mg/0.5 mL 3 mg SUBCUT WK 05/28/21 07/11/21 History subcutaneous pen injector (Trulicity) duloxetine 30 mg capsule,delayed 30 mg PO QAM 05/28/21 07/11/21 History release (Cymbalta) duloxetine 60 mg capsule,delayed 60 mg PO QAM 05/28/21 07/11/21 History release (Cymbalta) glipizide 5 mg tablet 5 mg PO QAM 05/28/21 07/11/21 History letrozole 2.5 mg tablet 2.5 mg PO QAM 05/28/21 07/11/21 History acetaminophen 500 mg tablet 1,000 mg PO TID PRN #90 tab 05/29/21 07/11/21 Rx (Tylenol Extra Strength) lancets 33 gauge (BD Ultra Fine #100 ea 06/11/21 07/06/21 Rx Lancets) pen needle, diabetic 32 gauge x #100 ea 06/11/21 07/06/21 Rx 5/32" (Easy Comfort Pen Molt) blood sugar diagnostic (OneTouch #100 ea 06/20/21 07/06/21 Rx Ultra Test) nitrofurantoin 100 mg PO BID 7 Days #14 cap 06/27/21 07/11/21 Rx monohydrate/macrocrystals 100 mg capsule (Macrobid) lorazepam 0.5 mg tablet (Ativan) 0.5 mg PO DAILY 07/06/21 07/11/21 History palbociclib 125 mg tablet (Ibrance) 125 mg PO QAM 07/06/21 07/11/21 History oxycodone 5 mg tablet 5 mg PO Q12H PRN #10 tab 07/09/21 07/11/21 Rx diltiazem HCl 240 mg capsule,24 240 mg PO QAM 07/11/21 07/11/21 History hr,extended release (Tiazac) ondansetron HCl 4 mg tablet 4 mg PO Q8H PRN 07/11/21 07/11/21 History pantoprazole 40 mg tablet,delayed 40 mg PO QAM 07/11/21 07/11/21 History release (Protonix) Patient History Medical History (Updated 07/12/21 @ 00:07 by Background Daemon) Anemia h/o blood transfusions, last within past 3 months per pt, H&H 10-11/33-35% Anxiety Aortic stenosis Mild AV stenosis per 12/2019 ECHO. (MERLENE= 1.6cm2; AV mean gradient= 7.8mmHg; AV max velocity= 1.939 m/s) Atrial fibrillation pacer/ Xarelto Atrial flutter Cervical spine disease Chronic pain Degenerative disc disease Depression Diabetes mellitus, type 2 IDDM Gastroesophageal reflux disease controlled, stable per pt Hx of cardiac pacemaker 3.2019 [facility]. [employer] device. follows with Dr Ramires > last checked approx 2 months ago Hx of tachycardia-bradycardia syndrome reason for pacemaker Hypercholesterolemia Hypothyroidism Infiltrating ductal carcinoma of left breast Initially dx'ed in 2015- s/p lumpectomy, XRT and anastrozole Metastatic breast cancer March 2020, follows with [facility] Liver mass Pt denies but 05/17/20 PET scan shows 2.5 right hepatic lobe mass consistent with known hepatic metastasis Metastatic lung carcinoma per previous records, follows with [place] [facility]-dx per heme onc records is metastatic breast cancer (hepatic lesion), noted stable 5 mm nodule within RLL per chest CT 04/2020 Obstructive sleep apnea does not wear machine Painful total knee replacement, right Peripheral neuropathy hands-bilat carptal tunnel syndrome Surgical History H/O bilateral hip replacements History of ankle surgery left History of carpal tunnel surgery of left wrist 06/2021 History of carpal tunnel surgery of right wrist History of section x1 History of colonoscopy History of evacuation of hematoma Hematoma right breast and right chest 08/31/13 Dr. Shah History of total knee arthroplasty bilateral Port-A-Cath in place Insertion of Mediport Right Subclavian Dr. Shah 06/13/2020 Status post appendectomy Status post arthroscopy of left shoulder Status post gastric bypass for obesity Status post laparoscopic cholecystectomy Status post lumbar spine surgery for decompression of spinal cord Status post panniculectomy Status post partial mastectomy of left breast Status post repair of ventral hernia Status post total abdominal hysterectomy and bilateral salpingo-oophorectomy Family History Unknown Breast cancer Emphysema lung Mother Diabetes Heart disease Father Heart disease Other No family history of adverse response to anesthesia Denies family history of Ovarian cancer Prostate cancer Coronary heart disease Colorectal cancer Social History Smoking Status: Former smoker Tobacco Type: Cigarettes packs per day: 2; Smoking End Date: 15 yrs ago; Second Hand Exposure: No; Do You Dip or Chew Tobacco: No; Tobacco Cessation Education Requested by Patient: No Hx Alcohol Use: Yes Alcohol type: beer and wine Hx Substance Use: No Preferred Language: Wolof Communication Ability: Effective Hearing Ability: Normal Market Superintendent Required: No Beliefs That Will Affect Care: None marital status: Current Living Situation: Spouse current occupational status: retired Other Information That Helps Us Care for You: No Feels Safe at Home: Yes Safety Concerns: Feels Safe At This Time Childhood Exposure to Second-Hand Smoke: Yes caffeine: Yes Dental Care, Regularly: No Physical Activity Frequency: 1-2 Times per Week Seatbelt Use: always Sunscreen Use: No Assistive Devices: Walker Review of Systems Review of Systems: REVIEW OF SYSTEMS: Constitutional: No fever, sweats or chills Eyes: No diplopia, no worsening or blurred vision ENT: (+) dentures, normal hearing, no trouble swallowing Respiratory: No cough, sputum, dyspnea at rest or on exertion Cardiovascular: No chest pain, tightness or palpitations Abdomen: No pain, nausea, vomiting, diarrhea or constipation Musculoskeletal: (+) right knee joint pain, NO calf pain, swelling Neurologic: No weakness, numbness/tingling, or balance problems Psychiatric: No anxiety or depression Skin: No rash or itch Physical Exam Physical Exam: PHYSICAL EXAM: General: awake, alert, no apparent distress Head: Normocephalic, atraumatic ENT: PERRL, EOMI, no pharyngeal exudate, mucous membranes moist Neuro: AAO x 3, speech clear and appropriate, strength intact bilaterally 5/5, sensation intact and equal all extremities and dermatones, no pronator drift Chest: equal rise and fall of the chest, no accessory muscle use, no heaves or thrills, Clear to auscultation, on room air, Cardiac: irregular rate and rhythm, , skin warm dry, cap refill <3 seconds, peripheral pusles +2 no JVD, Grade III systolic murmur right sternal border Grade II systolic murmur left mid clavicular, no JVD, trace edema GI: NABS x 4 quadrants, soft, nontender to palpation, no rebound, guarding or tenderness : Sage to gravity, no pain, no CVA tenderness, Extremities: Normal inspection, no peripheral edema or erythema, calfs nontender to palpation Psych: Normal mood and affect Skin: no rash or erythema Results & Data Results & Data ([facility]) Vital Signs (Past 12 Hours) Vital Signs Temp Pulse Resp BP BP Pulse Ox 07/11/21 18:14 63 20 161/74 H 97 07/11/21 17:36 36.7 C 66 17 166/70 H 92 07/11/21 17:00 36.6 C 61 22 137/89 94 07/11/21 16:30 62 16 154/58 H 100 07/11/21 16:15 36.4 C L 61 16 150/58 H 100 07/11/21 16:05 36.4 C L 61 16 135/53 L 97 07/11/21 15:55 70 16 147/58 H 97 07/11/21 15:45 60 16 139/59 L 98 07/11/21 15:35 60 18 161/59 H 98 07/11/21 15:25 60 18 126/69 100 07/11/21 15:18 36.2 C L 61 18 127/62 100 07/11/21 09:49 36.7 C 69 18 118/67 98 Laboratory Results Laboratory Results - last 24 hr 07/11/21 07/11/21 07/11/21 08:57 09:05 09:06 WBC RBC Hgb Hct MCV MCH MCHC RDW Std Deviation RDW Coeff of Thompson Plt Count MPV Immature Gran % (Auto) Neut % (Auto) Lymph % (Auto) [place] % (Auto) Eos % (Auto) Baso % (Auto) Neut # (Auto) Lymph # (Auto) [place] # (Auto) Eos # (Auto) Baso # (Auto) Immature Gran # (Auto) POC Glucose 52 L* 57 L* Procalcitonin SARS-CoV-2, RNA, NAAT NEGATIVE 07/11/21 07/11/21 07/11/21 09:36 10:24 11:22 WBC 3.57 L RBC 3.24 L Hgb 9.7 L Hct 30.7 L MCV 94.8 MCH 29.9 MCHC 31.6 L RDW Std Deviation 61.4 H RDW Coeff of Thompson 17.8 H Plt Count 382 MPV 9.1 Immature Gran % (Auto) 0.0 Neut % (Auto) 59.7 Lymph % (Auto) 33.9 [place] % (Auto) 4.8 Eos % (Auto) 0.8 Baso % (Auto) 0.8 Neut # (Auto) 2.13 Lymph # (Auto) 1.21 [place] # (Auto) 0.17 Eos # (Auto) 0.03 Baso # (Auto) 0.03 Immature Gran # (Auto) 0.00 POC Glucose 104 H 59 L* Procalcitonin SARS-CoV-2, RNA, NAAT 07/11/21 07/11/21 07/11/21 11:41 13:16 14:36 WBC RBC Hgb Hct MCV MCH MCHC RDW Std Deviation RDW Coeff of Thompson Plt Count MPV Immature Gran % (Auto) Neut % (Auto) Lymph % (Auto) [place] % (Auto) Eos % (Auto) Baso % (Auto) Neut # (Auto) Lymph # (Auto) [place] # (Auto) Eos # (Auto) Baso # (Auto) Immature Gran # (Auto) POC Glucose 139 H 63 L* 145 H Procalcitonin SARS-CoV-2, RNA, NAAT 07/11/21 07/11/21 07/11/21 15:20 17:10 18:59 WBC RBC Hgb Hct MCV MCH MCHC RDW Std Deviation RDW Coeff of Thompson Plt Count MPV Immature Gran % (Auto) Neut % (Auto) Lymph % (Auto) [place] % (Auto) Eos % (Auto) Baso % (Auto) Neut # (Auto) Lymph # (Auto) [place] # (Auto) Eos # (Auto) Baso # (Auto) Immature Gran # (Auto) POC Glucose 138 H 113 H Procalcitonin Pending SARS-CoV-2, RNA, NAAT Diagnostic Findings Knee X-Ray 07/11/21 15:24 RIGHT KNEE 2 VIEWS History: Right total knee arthroplasty. Degenerative arthritis. Postop. FINDINGS: The patient is status post revision of a right total knee arthroplasty. The hardware is intact. No fracture or dislocation. Skin rochelle are in place. A small amount of extruded cement is seen along the medial tibial plateau and medial femoral condyle. IMPRESSION: Right total knee arthroplasty revision. No evidence for hardware complication. ACT 112: Negative or not required by law. Electronically signed by: Shan Hollingsworth M.D. 07/11/2021 4:14 PM Medications Administered Home Medications multivitamin 1 tab PO QAM 02/04/18 [History Confirmed 07/11/21] cholecalciferol (vitamin D3) 25 mcg (1,000 unit) capsule (Vitamin D3) 1,000 unit PO QAM 07/29/19 [History Confirmed 07/11/21] calcium 600 mg capsule 600 mg PO QAM 09/27/20 [History Confirmed 07/11/21] levothyroxine 25 mcg tablet 37.5 mcg PO QAM #135 tab 10/24/20 [Rx Confirmed 07/11/21] gabapentin 600 mg tablet 300 mg PO BID #60 tab 10/25/20 [Rx Confirmed 07/11/21] diclofenac sodium 1 % topical gel (Voltaren Arthritis Pain) 2 g TOPICAL QID #2 g 11/03/20 [Rx Confirmed 07/11/21] thiamine HCl (vitamin B1) 100 mg tablet (Vitamin B-1) 100 mg PO QAM #30 tab 01/02/21 [Rx Confirmed 07/11/21] syringe with needle 3 mL 25 gauge x 1" (BD Luer-Veronica Syringe) #100 ea 02/22/21 [Rx Confirmed 07/06/21] Wheelchair (Powered) (Power Wheelchair) #1 ea 03/05/21 [Rx Confirmed 07/06/21] meclizine 25 mg tablet 25 mg PO Q6H PRN #30 tab 03/22/21 [Rx Confirmed 07/11/21] rivaroxaban 20 mg tablet (Xarelto) 20 mg PO QAM #90 tab 03/22/21 [Rx Confirmed 07/11/21] atorvastatin 40 mg tablet 40 mg PO HS #90 tab 03/26/21 [Rx Confirmed 07/11/21] insulin glargine 100 unit/mL (3 mL) subcutaneous pen (Lantus Solostar U-100 Insulin) 31 unit SQ HS #15 ml 05/04/21 [Rx Confirmed 07/11/21] lisinopril 10 mg tablet 10 mg PO QAM #90 tab 05/21/21 [Rx Confirmed 07/11/21] cyanocobalamin (vitamin B-12) 1,000 mcg/mL injection kit 1,000 mcg IM MONTHLY #1 ea 05/23/21 [Rx Confirmed 07/11/21] dulaglutide 3 mg/0.5 mL subcutaneous pen injector (Trulicity) 3 mg SUBCUT WK 05/28/21 [History Confirmed 07/11/21] duloxetine 30 mg capsule,delayed release (Cymbalta) 30 mg PO QAM 05/28/21 [History Confirmed 07/11/21] duloxetine 60 mg capsule,delayed release (Cymbalta) 60 mg PO QAM 05/28/21 [History Confirmed 07/11/21] glipizide 5 mg tablet 5 mg PO QAM 05/28/21 [History Confirmed 07/11/21] letrozole 2.5 mg tablet 2.5 mg PO QAM 05/28/21 [History Confirmed 07/11/21] acetaminophen 500 mg tablet (Tylenol Extra Strength) 1,000 mg PO TID PRN #90 tab 05/29/21 [Rx Confirmed 07/11/21] lancets 33 gauge (BD Ultra Fine Lancets) #100 ea 06/11/21 [Rx Confirmed 07/06/21] pen needle, diabetic 32 gauge x 5/32" (Easy Comfort Pen Molt) #100 ea 06/11/21 [Rx Confirmed 07/06/21] blood sugar diagnostic (OneTouch Ultra Test) #100 ea 06/20/21 [Rx Confirmed 07/06/21] nitrofurantoin monohydrate/macrocrystals 100 mg capsule (Macrobid) 100 mg PO BID 7 Days #14 cap 06/27/21 [Rx Confirmed 07/11/21] lorazepam 0.5 mg tablet (Ativan) 0.5 mg PO DAILY 07/06/21 [History Confirmed 07/11/21] palbociclib 125 mg tablet (Ibrance) 125 mg PO QAM 07/06/21 [History Confirmed 07/11/21] oxycodone 5 mg tablet 5 mg PO Q12H PRN #10 tab 07/09/21 [Rx Confirmed 07/11/21] diltiazem HCl 240 mg capsule,24 hr,extended release (Tiazac) 240 mg PO QAM 07/11/21 [History Confirmed 07/11/21] ondansetron HCl 4 mg tablet 4 mg PO Q8H PRN 07/11/21 [History Confirmed 07/11/21] pantoprazole 40 mg tablet,delayed release (Protonix) 40 mg PO QAM 07/11/21 [History Confirmed 07/11/21] Active Medications Acetaminophen (Acetaminophen 500 Mg Tab) 500 mg PO TID PRN PRN Reason: Pain Stop: 08/10/21 17:28 Al Hydrox/Mg Hydrox/Simethicone (Aluminum/Magnesium Susp 30 Ml Udc) 15 ml PO Q4H PRN PRN Reason: Heartburn Stop: 08/10/21 17:07 Ascorbic Acid (Ascorbic Acid 500 Mg Tab) 500 mg PO BIDM [facility] Stop: 08/10/21 17:29 Last Admin: 07/11/21 18:08 Dose: 500 mg Documented by: Atorvastatin Calcium (Atorvastatin 40 Mg Tab) 40 mg PO HS [facility] Stop: 08/10/21 20:59 Bisacodyl (Bisacodyl 10 Mg Supp) 10 mg [place] DAILY PRN PRN Reason: Constipation Stop: 08/10/21 17:07 Calcium Carbonate (Calcium Carbonate 1250mg Tab) 1,[facility] [place]: 08/11/21 08:59 Cyanocobalamin (Cyanocobalamin 1000 Mcg/Ml Vial) 1,000 mcg IM Q28D@0900 [facility] Stop: 09/07/21 08:59 Diltiazem HCl (Diltiazem Hcl 240 Mg Capcr) 240 mg PO QAM [facility] Stop: 08/11/21 08:59 Docusate Sodium (Docusate Sodium 100 Mg Cap) 100 mg PO BID [facility] Stop: 08/10/21 20:59 Duloxetine HCl (Duloxetine Hcl 30 Mg Cap) 30 mg PO QAM [facility] Stop: 08/11/21 08:59 Duloxetine HCl (Duloxetine Hcl 60 Mg Cap) 60 [facility] [place]: 08/11/21 08:59 Ferrous Gluconate (Ferrous Gluconate 324 Mg Tab) 324 mg PO BIDM [facility] Stop: 08/10/21 17:29 Last Admin: 07/11/21 18:08 Dose: 324 mg Documented by: Gabapentin (Gabapentin 600 Mg Tab) 300 mg PO BID [facility] Stop: 08/10/21 20:59 Hydromorphone HCl (Hydromorphone Inj 0.5 Mg/0.5 Ml Syr) 0.5 mg IV Q4H PRN PRN Reason: Pain or Pre PT Stop: 07/25/21 17:07 Lactated Ringer's (Lr) 1,000 mls @ 60 mls/hr IV .[id number] [facility] Stop: 07/11/21 22:39 Last Admin: 07/11/21 11:50 Dose: Not Given Documented by: Sodium Chloride (Nss 1000ml) 1,000 mls @ 100 mls/hr IV .Q10H [facility] Stop: 07/12/21 06:00 Last Admin: 07/11/21 17:37 Dose: 100 mls/hr Documented by: Vancomycin HCl 1,250 mg/ (Sodium Chloride) 250 mls @ 200 mls/hr IV Q12H [facility] Stop: 07/12/21 02:29 Tranexamic Acid (Tranexamic Acid / 0.7% Nacl) 1,000 mg in 100 mls @ 600 mls/hr IV Q6H [facility] Stop: 07/11/21 21:39 Insulin Aspart (Insulin Aspart Per Unit) 0 units SC ACHS [facility] Stop: 08/10/21 20:59 Insulin Glargine (Insulin Glargine Solostar 100 Units/Ml 3 Ml Pen) 0 - 15 units SQ HS [facility]; Protocol Stop: 07/11/21 21:01 Ketorolac Tromethamine (Ketorolac Tromethamine 15 Mg/Ml Vial) 15 mg IV Q6H [facility] Stop: 07/13/21 12:01 Last Admin: 07/11/21 18:08 Dose: 15 mg Documented by: Letrozole (Letrozole 2.5 Mg Tab) 2.5 mg PO QAM [facility] Stop: 08/11/21 08:59 Levothyroxine Sodium (Levothyroxine Sodium 25 Mcg Tablet) 37.5 mcg PO DAILYBB [facility] Stop: 08/11/21 06:29 Lisinopril (Lisinopril 10 Mg Tab) 10 mg PO QAM [facility] Stop: 08/11/21 08:59 Lorazepam (Lorazepam 0.5 Mg Tab) 0.5 mg PO DAILY [facility] Stop: 08/11/21 08:59 Magnesium Hydroxide (Magnesium Hydroxide Susp 30 Ml Udc) 30 ml PO Q6H PRN PRN Reason: Constipation Stop: 08/10/21 17:07 Meclizine HCl (Meclizine Hcl 25 Mg Tab) 25 mg PO Q6H PRN PRN Reason: dizziness Stop: 08/10/21 17:21 Metoclopramide HCl (Metoclopramide Hcl Inj 5 Mg/Ml 2 Ml Vial) 10 mg IV Q6H PRN PRN Reason: Nausea And Vomiting Stop: 08/10/21 17:07 Miscellaneous (Scopolamine Check Patch Placement) 1 ea N/A QS [facility] Stop: 07/14/21 07:59 Last Admin: 07/11/21 17:17 Dose: Not Given Documented by: Miscellaneous (Scopolamine Remove Transderm Patch) 1 ea N/A ONE ONE Stop: 07/14/21 08:01 Miscellaneous Information (Pharmacy Glycemic Mgmt Consult) 1 ea N/A UD PRN PRN Reason: Consult Stop: 08/10/21 17:07 Multivitamins (Multivitamin Tab) 1 tab PO QAM [facility] Stop: 08/11/21 08:59 Naloxone HCl (Naloxone Hcl 0.4 Mg/1 Ml Vial/Carp) 0.1 mg IV Q5M PRN PRN Reason: Oversedation/Resp Depression Stop: 08/10/21 17:07 Ondansetron HCl (Ondansetron 4 Mg Od Tab) 4 mg PO Q8H PRN PRN Reason: Nausea Stop: 08/10/21 17:35 Ondansetron HCl (Ondansetron Inj 2 Mg/Ml 2 Ml Vial) 4 mg IV Q6H PRN PRN Reason: Nausea And Vomiting Stop: 08/10/21 17:07 Oxycodone HCl (Oxycodone Hcl Ir 5 Mg Tab (Immediate Release)) 5 mg PO Q12H PRN PRN Reason: moderate to severe pain Stop: 07/25/21 17:07 Last Admin: 07/11/21 17:40 Dose: 5 mg Documented by: Palbociclib (Palbociclib 125mg) 1 ea PO DAILY [facility] Stop: 08/11/21 08:59 Pantoprazole Sodium (Pantoprazole 40 Mg Tab) 40 mg PO QAM [facility] Stop: 08/11/21 08:59 Sennosides (Senna 8.6 Mg Tab) 17.2 mg PO HS [facility] Stop: 08/10/21 20:59 Tapentadol (Tapentadol Hcl Er 50 Mg Tabcr) 50 mg PO Q12 [facility] Stop: 07/25/21 20:59 Thiamine HCl (Thiamine Hcl 100 Mg Tab) 100 mg PO QAM [facility] Stop: 08/11/21 08:59 Vitamin D (Cholecalciferol 1,000 Units 25 Mcg Tab) 1,000 units PO QAM [facility] Stop: 08/11/21 08:59 PG Care Time/CCT Total # of Minutes Spent Total Time Spent with Patient: Total time spent is greater than 50% in coordination of care (as documented) at patient's floor/unit and/or counseling patient: Coding Level of Care Code 52664 Inpt Consult Level 3 Diagnoses Infected prosthetic knee joint T84.59XA; Z96.659 Infiltrating ductal carcinoma of left breast C50.912 Diabetes mellitus type 2, uncontrolled E11.65 Glycemic state: with hyperglycemia Atrial fibrillation I48.91 Atrial fibrillation type: unspecified Aortic stenosis I35.0 Anticoagulated Z79.01 Hypothyroidism E03.9 Hypothyroidism type: unspecified Obstructive sleep apnea G47.33 Chronic GERD K21.9 (1) Atrial fibrillation Atrial fibrillation type: unspecified Qualified Code(s): I48.91 - Unspecified atrial fibrillation (2) Hypothyroidism Hypothyroidism type: unspecified Qualified Code(s): E03.9 - Hypothyroidism, unspecified (3) Diabetes mellitus type 2, uncontrolled Glycemic state: with hyperglycemia Qualified Code(s): E11.65 - Type 2 diabetes mellitus with hyperglycemia
[2021-07-11] MEDS: HYDROmorphone INJ 0.5 MG/0.5 ML SYR IV PRN (19:41)
[2021-07-11] MEDS ORDERED: MACROBID 100MG HOME PACK 1 EA VIAL PO SCH (21:00)
[2021-07-11] MEDS ORDERED: INSULIN GLARGINE SOLOSTAR 100 UNITS/ML 3 ML PEN SQ SCH (21:00)
[2021-07-11] MEDS: INSULIN ASPART PER UNIT SC SCH (21:19)
[2021-07-11] MEDS: DOCUSATE SODIUM 100 MG CAP PO SCH (21:20)
[2021-07-11] MEDS: TAPENTADOL HCL ER 50 MG TABCR PO SCH (21:20)
[2021-07-11] MEDS: GABAPENTIN 600 MG TAB PO SCH (21:21)
[2021-07-11] MEDS: SENNA 8.6 MG TAB PO SCH (21:21)
[2021-07-11] MEDS: ATORVASTATIN 40 MG TAB PO SCH (21:21)
[2021-07-11] MEDS ORDERED: TRANEXAMIC ACID / 0.7% NACL 1,000 MG/100 ML BAG IV SCH (21:30)
[2021-07-12] MEDS: MELATONIN 3 MG TAB PO PRN (00:28)
[2021-07-12] MEDS ORDERED: VANCOMYCIN HCL 1,250 MG in SODIUM CHLORIDE 0.9% 250 ML IV SCH (01:15)
[2021-07-12] MEDS: VANCOMYCIN HCL 1,250 MG in SODIUM CHLORIDE 0.9% 250 ML IV SCH ×3 (01:58→23:18)
[2021-07-12] MEDS: SODIUM CHLORIDE 0.9% 1000ML 1,000 ML IV SCH (03:42)
[2021-07-12] MEDS: HYDROmorphone INJ 0.5 MG/0.5 ML SYR IV PRN ×2 (03:46→13:31)
[2021-07-12] MEDS: KETOROLAC TROMETHAMINE 15 MG/ML VIAL IV SCH ×4 (05:33→23:19)
[2021-07-12] MEDS: LEVOTHYROXINE SODIUM 25 MCG TABLET PO SCH (05:36)
[2021-07-12] MEDS: TAPENTADOL HCL ER 50 MG TABCR PO SCH ×2 (08:07→19:50)
[2021-07-12] MEDS: oxyCODONE HCL IR 5 MG TAB (IMMEDIATE RELEASE) PO PRN ×2 (08:07→19:46)
[2021-07-12] MEDS: LORazepam 0.5 MG TAB PO SCH (08:07)
[2021-07-12] MEDS: PALBOCICLIB 125 MG PO SCH (08:08)
[2021-07-12] MEDS: MULTIVITAMIN TAB PO SCH (08:09)
[2021-07-12] MEDS: DULoxetine HCL 30 MG CAP PO SCH (08:09)
[2021-07-12] MEDS: DULoxetine HCL 60 MG CAP PO SCH (08:09)
[2021-07-12] MEDS: DOCUSATE SODIUM 100 MG CAP PO SCH ×2 (08:09→19:46)
[2021-07-12] MEDS: dilTIAZem HCL 240 MG CAPCR PO SCH (08:09)
[2021-07-12] MEDS: CHOLECALCIFEROL 1,000 UNITS 25 MCG TAB PO SCH (08:09)
[2021-07-12] MEDS: ASCORBIC ACID 500 MG TAB PO SCH ×2 (08:10→17:58)
[2021-07-12] MEDS: FERROUS GLUCONATE 324 MG TAB PO SCH ×2 (08:10→17:58)
[2021-07-12] MEDS: THIAMINE HCL 100 MG TAB PO SCH (08:10)
[2021-07-12] MEDS: CALCIUM CARBONATE 1250MG TAB PO SCH (08:10)
[2021-07-12] MEDS: lisinopril 10 MG TAB PO SCH (08:10)
[2021-07-12] MEDS: PANTOprazole 40 MG TAB PO SCH (08:10)
[2021-07-12] MEDS: LETROZOLE 2.5 MG TAB PO SCH (08:11)
[2021-07-12] MEDS: GABAPENTIN 600 MG TAB PO SCH ×2 (08:11→19:44)
[2021-07-12] MEDS: Scopolamine CHECK PATCH PLACEMENT SCH ×3 (08:19→23:17)
[2021-07-12 08:28] LABS: Hemoglobin 8.3 g/dL (12.0-16.0); Mean Corpuscular Hemoglobin 30.3 pg (25-34); Mean Corpuscular Hgb Conc 31.9 g/dL (32-36); Mean Corpuscular Volume 94.9 fL (80-100); Mean Platelet Volume 9.8 fL (7.4-10.4); Platelet Count 320 K/uL (130-400); RDW Coefficient of Variation 17.9 % (11.5-14.5); RDW Standard Deviation 61.7 fL (36.4-46.3); Red Blood Count 2.74 M/uL (4.2-5.4); White Blood Count 2.63 K/uL (4.8-10.8)
--- NOTE | 2021-07-12 08:36 | Operative Report ---
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 She had extensive osteolysis particular around the femoral component. Neither component was grossly loose. Diffuse osteopenia. Fluids 1400 cc Specimens Right knee joint fluid sent for culture. We also sent some synovium for tissue culture. Drains None Anesthesia Type Spinal MAC Disposition Accompanied Patient To Recovery: No Indications Patient is a 71-year-old female has had a history of multiple joint operations in the past. She underwent a right knee replacement done by Dr. Hope back in 1994. She did quite well for a while. Over the past year to year and a half she is increased pain discomfort and swelling her knee. She been to extensive work-up which suggested infection. We tried to treat this conservatively for a period of time due to her multiple medical issues but failed. She was pretty miserable and continued to have instability and giving out of her knee. She elected proceed with that revision to antibiotic spacer. The plan was to place the antibiotic spacer and likely come back in several months of her reimplantation. If she did okay with a spacer we were considering leaving it in. Description of Procedure Operative implants consist of: 1. Biomet Vanguard size 65 right posterior stabilized femoral component. 2. Biomet size 71 mm x 10 mm polyethylene posterior stabilized insert. The patient was taken the operating, identified, placed on the operating table supine position protectors were properly padded. IV antibiotics were held until after the cultures were obtained. We did give the patient 1.25 g of vancomycin after cultures were obtained. A spinal anesthetic been implemented holding area. Sage cath was placed in sterile fashion a right thigh turn was then placed. The right lower extremities then prepped and draped in usual sterile fashion. The right leg was elevated exsanguinated with use of an Esmarch in terms playset 300 mmHg. An anterior approach to the right knee was then performed using the previous incision. Sharp dissection was carried through subcutaneous tissue down the extensor mechanism. Medial parapatellar arthrotomy incision was made. Joint fluid was sent for stat Gram stain aerobic anaerobic culture. We did a complete synovectomy of the suprapatellar pouch and medial lateral gutters. The polyethylene was then removed without incident. With the use of the ACL saw wound bed debrided and the interrupted the surfaces of the femoral component which were not difficult. The femoral component was removed without much difficulty. There was extensive osteolysis but minimal bone destruction from the removal itself. We debrided the end of the femur of all soft tissues. Attention drawn the tibia. The use of the ACL saw along with a stacked osteotome technique and the Dc distractor we remove the tibial tray. That we then spent some time chipping away and removing all cement with this along with the bur. Once this was complete and all cement had been removed attention was then drawn the patella. Nupathe patella was cleaned of all soft tissues. I then used a saw to remove the patella. We used a bur to remove the polyethylene and the cement from the patella component. We extensively irrigated the wound with 3 L of pulsatile lavage solution. I then irrigated it again. We then placed the IM guide for the femoral component and I did reamed in order to debride the canal. We placed the IM reamer and then cut the distal femur at 5 degrees. We then trialed this and selected a 65mm femoral component. Attention drawn the tibia. The tibia was entered with the reamer. I then reamed up to about a 12. We did cut the tibia with use intramedullary guide. I then debrided of all additional cement. We sized this to a size 71. We then irrigated the wound extensively. I then irrigated with full-strength Dakin solution let the sit in the wound for 5 minutes. I irrigated this out and then irrigated again with the Betadine solution. We let the sit in the knee for about 10 minutes while we are preparing some cement. This was then irrigated out extensively. We then changed the drapes and gloves. New set up was used to implant the implants. We did create to dowels for the intramedullary canals consisting of a single packet cement and 3 g of vancomycin 2 g of Tobra. These were left to harden and then placed in the IM canals. A double batch of Palacos G cement was mixed with an additional 6 g of vancomycin 4 g of tobramycin. The femoral component was then placed with the cement try to do this loosely. I also placed a cement mantle on top of the tibia. Once this hardened we mixed one additional bag of cement with 3 g of vancomycin and 2 g of tobramycin. This was used to fix the tibial polyethylene. The knee was brought in full extension until the cement hardened. The knee was taken through range of motion and the patella tracked reasonably well. She had good motion. The knee appeared quite stable. Of note, we did leave the tourniquet down before we cemented the implants in for total return TIVA 106 minutes. The wound was 1 once again irrigated with 3 L of pulsatile lavage solution. I did place a gram of vancomycin deep in the wound. The extensor mechanism closed with combination 1 PDS suture #1 Vicryl suture in [id number] fashion. Extensor mechanism checked found to be intact and subcutaneous tissue then closed with 3-0 Monocryl suture in a buried interrupted fashion for skin was closed skin rochelle. Leg was then cleaned and dried a sterile dressing was Xeroform, 4 fours, sterile cast padding, Anant bandage were applied. The patient was then transferred to the recovery room in stable condition. Patient tolerated procedure well no complications. Edmund Baker, my physician social service assistant, was present for the entire procedure. His assistance was required for proper patient positioning, prepping and draping, surgical exposure, perform the technical details the operation, removal of the implants, placement of new implants, closure of the wound, placement of sterile bandage. I attest to the content of the Intraoperative Record and any orders documented therein. Any exceptions are noted below.
[2021-07-12 08:55] LABS: BUN Creatinine Ratio 32.6 (10-20); Calcium 7.5 mg/dl (8.5-10.1); Creatinine Clr Calc Pharmacy 105.7 ml/min; Est GFR (African American) 114.4 ml/min; Est GFR (Non-African American) 98.7 ml/min; Potassium 3.9 mmol/L (3.5-5.1)
[2021-07-12] MEDS ORDERED: glipiZIDE 5 MG TAB PO SCH (09:00)
[2021-07-12] MEDS ORDERED: MULTIVITAMIN TAB PO SCH (09:00)
[2021-07-12] MEDS: INSULIN ASPART PER UNIT SC SCH ×4 (09:06→21:38)
--- NOTE | 2021-07-12 10:43 | Pharmacy Report ---
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 Thank you.
[2021-07-12] MEDS ORDERED: RIVAROXABAN 10 MG TABLET PO ONE (11:30)
--- NOTE | 2021-07-12 12:53 | Hospitalist Progress Note ---
Date of Service July 12, 2021 Assessment & Plan (1) Infected prosthetic knee joint: Plan: 71 yo F here for elective orthopedic admission for infected R knee prosthesis s/p R knee replacement with antibiotic spacer, POD1. (1) Infected prosthetic knee joint - BCx pending, wound Cx and synovial fluid Cx no growth at 24 hrs. Previous wound Cx from 04/2021 grew MRSE - Low suspicion for endocarditis, may pursue echocardiogram if symptoms worsen/evolve or BCx positive - Pain control per orthopedics- appropriate with rescue Narcan available - Continue vancomycin, will narrow abx pending sensitivities - Continue PT/OT - Abx (4-6 weeks with long-term PO abx afterward) to be delivered through A-Port from cancer instead of PICC, ok per orthopedics (2) Atrial fibrillation: -Rate controlled with pacemaker, pacer MODE AAIR with mode switch to DDDR -Currently rate-controlled in 60s-70s, not sinus rhythm -Restart home Xarelto prophylactic dose 10 mg today, resume 20 mg dose tomorrow -Continue diltiazem (3) Infiltrating ductal carcinoma of left breast: -Continue home Palbociclib - No acute needs - Mediport site stable and clean, A-Port to be used for abx per orthopedics (4) Diabetes mellitus type 2, uncontrolled: - On Trulicity and Glipizide at home - Pharmacy consult placed- follow for 24-48 hours with oral intake following surgery and infection - Novolog ISS, will resume basal later (5) Hypothyroidism: -Continue Synthroid- 25 mcg (6) Obstructive sleep apnea: -Does not use CPAP at home currently -Stable pulse ox, respiratory status at present (7) Chronic GERD: -Continue Protonix FENGI: carb consistent Code status: Full DVT ppx: Resumed home Xarelto Isolation: None Dispo: Med/surg, discharge to rehab pending improvement (2) Aortic stenosis: (3) Breast cancer: (4) Arthritis: (5) Constipation: (6) Chronic GERD: (7) Gait disturbance: (8) Hypocalcemia: Admission and Anticipated Discharge Date Admission Date: July 11, 2021 Supervising Physician Co-Signing Physician Notes I also saw the patient with the resident physician confirmed edwards portions of the history and physical examination. Agree the impression and plan as noted in the resident documentation. Upon exam this morning, the patient feels generally well. Mild to moderate right knee pain although this does not seem to bother her too much during our exam. She reported some nausea earlier today but this has improved. Exam 94/57, 69, 16, 36.8, 96% room air She is pleasant and alert. No distress. Heart irregularly irregular, Lungs clear with nonlabored respirations Data Hemoglobin 8.3 Sodium 134, testing 3.9, BUN 15, creatinine 0.46 Impression and plan Infected prosthetic knee joint, status post revision with antibiotic spacer, postop day #1 Vancomycin with pharmacy consult Will need 4 to 6 weeks of IV antibiotics, transitioning to likely lifelong p.o. antibiotics Atrial fibrillation Exam today is consistent with a rate controlled atrial fibrillation versus a atrial paced rhythm with ectopy Restart Xarelto when okay by orthopedics Continue diltiazem Additional per resident documentation Subjective No acute events overnight. Pt feels well, reporting mild-moderate R knee pain. Denies fever, chills, nausea, vomiting. Would like to go to rehab after discharge. Review of Systems Review of Systems: All systems reviewed & are unremarkable except as noted in Subjective Physical Exam Physical Exam: General: awake, alert, no apparent distress HEENT: NCAT, EOMI, no pharyngeal erythema or exudate, moist mucous membranes, CV: irregularly irregular rhythm, normal rate, 3/6 systolic murmur over RUSB, no JVD or peripheral edema Resp: CTAB, unlabored respirations Abd: soft, nontender, nodistended : fuentes in place Skin: warm, dry, no rash or erythema Neuro: no focal motor or sensory deficits proximally and distally to R knee cast Results & Data Results & Data ([facility]) Vital Signs (Past 12 Hours) Vital Signs Temp Pulse Resp BP Pulse Ox 07/12/21 10:36 36.8 C 73 17 127/69 95 07/12/21 07:51 36.8 C 66 17 121/67 100 07/12/21 03:27 37 C 68 20 117/73 95 Resident Activity Tracking Resident Involvement: Resident Care Provided Care Provided: Adult Hospital Medicine (1) Breast cancer Breast location: unspecified site of breast Estrogen receptor status: unspecified Laterality: unspecified laterality Patient sex: female Qualified Code(s): C50.919 - Malignant neoplasm of unspecified site of unspecified female breast
[2021-07-12] MEDS: HEPARIN 100 UNIT/ML 5ML FLUSH IV PRN (14:31)
--- NOTE | 2021-07-12 15:13 | Pharmacy Report ---
Pharmacy Glycemic Short Note 2 - Date of Service July 12, 2021 - Glycemic Short BSG Results (Last 24 hours): 07/11/21 07/11/21 07/11/21 15:20 17:10 20:17 Glucose POC Glucose 138 H 113 H 151 H 07/12/21 07/12/21 07/12/21 07:04 07:58 12:08 Glucose 108 H POC Glucose 105 H 158 H OUTPATIENT ANTIDIABETIC REGIMEN: * Lantus 31 units SQ qHS * Trulicity weekly on Fri * Glipizide ASSESSMENT: * Faith is a 71 yo T2DM s/p R revision of total knee replacement * She was administered 50% of home Lantus dose last evening (15 units) - fasting of 105 mg/dL today. Will increase to 15-20 units based on BSG scale. I anticipate fasting will trend up as diet has advanced. * Post prandial BSGs are well controlled for the most part - will slightly tighten carb coverage PLAN FOR INPATIENT GLYCEMIC CONTROL: * Hold outpatient oral diabetes medications * Basal insulin * Lantus 15-20 units SQ BID (20 units for BSG of 180 or more) * Bolus insulin * NovoLog per scale ACHS or Q6hrs while NPO * Goal Range: Low 110 mg/dL - High 140 mg/dL * Correction Factor: 25 mg/dL/unit * Nutritional / Prandial insulin per carb ratio of 1 unit per 9 grams CHO consumed PLAN FOR DISCHARGE: * A1c of 6.8% is at goal * Continue home regimen on discharge as long as patient denies frequent hypoglycemia
--- NOTE | 2021-07-12 17:55 | Progress Notes ---
DATE OF SERVICE: 07/12/2021. SUBJECTIVE: A 71-year-old white female postoperative day 1 from removal of a right knee prosthesis a nd placement of an articulated antibiotic spacer. She is doing pretty well. Complaining of moderate amount of pain and that is about it. No chest pain or shortness of breath. Not feeling dizzy or li ghtheaded. OBJECTIVE: VITAL SIGNS: Temperature 36.8. Vital signs are stable. PHYSICAL EXAMINATION: GENERAL: Shows a pleasant, elderly female. She is sitting up in bed, looks comfortable. She is act ing like a jovial self. EXTREMITIES: Examination of the right leg reveals the dressing to be clean, dry and intact. Her leg is well aligned. She can dorsiflex and plantarflex her foot appropriately. Cannot quite do a strai ght leg raise. LABORATORY DATA: Hemoglobin 8.3. Hematocrit 26.0. Electrolytes are stable. Culture results are pe nding. ASSESSMENT: A 71-year-old white female postoperative day 1 from right knee implant removal and place ment of antibiotic spacer. She is doing pretty well. Pain is as expected. She is neurologically in tact. Culture results pending, but most likely needs vancomycin or daptomycin coverage. PLAN: 1. DVT prophylaxis includes thigh-high TEDs, SCDs and we will start her back on her anticoagulation at a prophylactic dose. 2. PT, OT, weightbear as tolerated. She can fully weightbear. We are going to keep her knee immobi lized for 2 weeks. 3. Pain control, doing okay with current pain regimen. 4. Disposition: She is hoping to go to [facility] probably for a rehab stay. We will see how she prog resses in the hospital. Job ID: [id number]
[2021-07-12] MEDS: ONDANSETRON INJ 2 MG/ML 2 ML VIAL IV PRN (18:14)
[2021-07-12] MEDS: ATORVASTATIN 40 MG TAB PO SCH (19:45)
[2021-07-12] MEDS: SENNA 8.6 MG TAB PO SCH (19:45)
[2021-07-12] MEDS: INSULIN GLARGINE SOLOSTAR 100 UNITS/ML 3 ML PEN SQ SCH (21:35)
[2021-07-13] MEDS: HEPARIN 100 UNIT/ML 5ML FLUSH IV PRN ×4 (01:34→17:17)
[2021-07-13] MEDS: LEVOTHYROXINE SODIUM 25 MCG TABLET PO SCH (05:31)
[2021-07-13] MEDS: KETOROLAC TROMETHAMINE 15 MG/ML VIAL IV SCH ×2 (05:35→13:07)
[2021-07-13 05:37] LABS: Basophils # (auto) 0.02 K/uL (0-0.2); Basophils % (auto) 0.8 %; Eosinophils # (auto) 0.04 K/uL (0-0.5); Eosinophils % (auto) 1.6 %; Hematocrit (blood only) 25.2 % (37-47); Hemoglobin 7.9 g/dL (12.0-16.0); Lymphocytes # (auto) 0.79 K/uL (1.2-3.4); Lymphocytes % (auto) 31.1 %; Mean Corpuscular Hemoglobin 29.7 pg (25-34); Mean Corpuscular Hgb Conc 31.3 g/dL (32-36); Mean Corpuscular Volume 94.7 fL (80-100); Mean Platelet Volume 10.2 fL (7.4-10.4); Monocytes # (auto) 0.11 K/uL (0.11-0.59); Monocytes % (auto) 4.3 %; Neutrophils # (auto) 1.58 K/uL (1.4-6.5); Neutrophils % (auto) 62.2 %; Platelet Count 282 K/uL (130-400); RDW Coefficient of Variation 18.3 % (11.5-14.5); RDW Standard Deviation 62.2 fL (36.4-46.3); Red Blood Count 2.66 M/uL (4.2-5.4); White Blood Count 2.54 K/uL (4.8-10.8)
[2021-07-13 05:53] LABS: BUN Creatinine Ratio 26.1 (10-20); Creatinine Clr Calc Pharmacy 105.7 ml/min; Est GFR (African American) 114.4 ml/min; Est GFR (Non-African American) 98.7 ml/min; Potassium 3.8 mmol/L (3.5-5.1)
[2021-07-13 06:20] LABS: Ovalocytes 1+
[2021-07-13] MEDS: Scopolamine CHECK PATCH PLACEMENT SCH ×2 (08:02→14:53)
[2021-07-13] MEDS: LETROZOLE 2.5 MG TAB PO SCH (08:04)
[2021-07-13] MEDS: PANTOprazole 40 MG TAB PO SCH (08:04)
[2021-07-13] MEDS: DULoxetine HCL 60 MG CAP PO SCH (08:04)
[2021-07-13] MEDS: THIAMINE HCL 100 MG TAB PO SCH (08:04)
[2021-07-13] MEDS: MULTIVITAMIN TAB PO SCH (08:04)
[2021-07-13] MEDS: lisinopril 10 MG TAB PO SCH (08:04)
[2021-07-13] MEDS: DULoxetine HCL 30 MG CAP PO SCH (08:05)
[2021-07-13] MEDS: CHOLECALCIFEROL 1,000 UNITS 25 MCG TAB PO SCH (08:05)
[2021-07-13] MEDS: ASCORBIC ACID 500 MG TAB PO SCH ×2 (08:05→17:17)
[2021-07-13] MEDS: dilTIAZem HCL 240 MG CAPCR PO SCH (08:05)
[2021-07-13] MEDS: CALCIUM CARBONATE 1250MG TAB PO SCH (08:05)
[2021-07-13] MEDS: FERROUS GLUCONATE 324 MG TAB PO SCH ×2 (08:05→17:17)
[2021-07-13] MEDS: GABAPENTIN 600 MG TAB PO SCH ×2 (08:06→22:07)
[2021-07-13] MEDS: DOCUSATE SODIUM 100 MG CAP PO SCH ×2 (08:07→22:05)
[2021-07-13] MEDS: PALBOCICLIB 125 MG PO SCH (08:07)
--- NOTE | 2021-07-13 08:08 | Progress Notes ---
DATE OF SERVICE: 07/13/2021. SUBJECTIVE: A 71-year-old female now postop day 2 from a right knee replacement removal and placemen t of an articulating antibiotic spacer. Her pain seems to be a little bit better today. No new comp laints. OBJECTIVE: VITAL SIGNS: Temperature is 37.0. Vital signs are stable. PHYSICAL EXAMINATION: GENERAL: Physical examination shows a pleasant, elderly female. She is lying in bed this morning. She looks pretty comfortable. EXTREMITIES: Examination of the right leg reveals the leg to be well aligned. Dressing is clean, dr y and intact. She can dorsiflex and plantarflex her foot appropriately. She is neurologically intac t. LABORATORY DATA: Hemoglobin is 7.9. Hematocrit 25.2. Electrolytes are stable. Culture results hav e still no growth to date. ASSESSMENT: A 71-year-old female now postop day 2 from removal of an infected knee replacement and p lacement of articulating antibiotic spacer. She is doing pretty well orthopedically. Pain is reason ably well controlled. PLAN: 1. DVT prophylaxis includes thigh-high TEDs, SCDs and back on her anticoagulation. We will keep her at a prophylactic dose today and then she can go back to a therapeutic dose tomorrow. 2. PT/OT. She can weight bear as tolerated in the knee immobilizer. We are not going to do any kne e range of motion for the first 2 weeks. She can weight bear as tolerated in the knee immobilizer. 3. Pain control, doing okay with current pain regimen. 4. Medical management as per the medicine service. 5. Disposition: She is orthopedically stable for discharge any time. We just need to get the dose of her antibiotics quite away and get her likely to a long-term facility. She was hoping to go to [facility], but there are some issues with the antibiotics they are trying to be sorted out. Any orthopedic questions can be directed to me at [phone]. Job ID: [id number]
[2021-07-13] MEDS: LORazepam 0.5 MG TAB PO SCH (08:15)
[2021-07-13] MEDS: TAPENTADOL HCL ER 50 MG TABCR PO SCH ×2 (08:15→22:05)
--- NOTE | 2021-07-13 08:37 | Pharmacy Report ---
Pharmacy Glycemic Short Note 2 - Date of Service July 13, 2021 - Glycemic Short BSG Results (Last 24 hours): 07/12/21 07/12/21 07/12/21 07:04 12:08 16:48 Glucose 108 H POC Glucose 158 H 185 H 07/12/21 07/13/21 07/13/21 20:40 05:04 08:23 Glucose 190 H POC Glucose 180 H 214 H OUTPATIENT ANTIDIABETIC REGIMEN: * Lantus 31 units SQ HS * Trulicity 3 mg SQ weekly on Fridays * Glipizide 5 mg PO AM * HbA1c = 6.8% (07/09/21) ASSESSMENT: 07/13: * BSGs acceptable yesterday: 154-540-367-180 mg/dL * Received 40 units of insulin: 20 units basal + 20 units bolus * Sharp increase in fasting BSG to 214 mg/dL this AM - likely due to basal deficiency with improved diet * Will increase Lantus this evening and tighten Novolog 07/12: * Faith is a 71 yo T2DM s/p R revision of total knee replacement * She was administered 50% of home Lantus dose last evening (15 units) - fasting of 105 mg/dL today. Will increase to 15-20 units based on BSG scale. I anticipate fasting will trend up as diet has advanced. * Post prandial BSGs are well controlled for the most part - will slightly tighten carb coverage PLAN FOR INPATIENT GLYCEMIC CONTROL: * Hold outpatient oral diabetes medications * Basal insulin - increased * Lantus 24-28 units SQ HS (28 units for BSG of 180 or more) * Bolus insulin - tightened * NovoLog per scale ACHS or Q6hrs while NPO * Goal Range: Low 110 mg/dL - High 140 mg/dL * Correction Factor: 20 mg/dL/unit * Nutritional / Prandial insulin per carb ratio of 1 unit per 7 grams CHO consumed PLAN FOR DISCHARGE: * A1c of 6.8% is at goal * Continue home regimen on discharge as long as patient denies frequent hypoglycemia
[2021-07-13] MEDS: RIVAROXABAN 10 MG TABLET PO SCH (08:42)
[2021-07-13] MEDS: INSULIN ASPART PER UNIT SC SCH ×4 (08:50→22:17)
[2021-07-13] MEDS: oxyCODONE HCL IR 5 MG TAB (IMMEDIATE RELEASE) PO PRN ×2 (08:51→22:16)
[2021-07-13] MEDS: ONDANSETRON INJ 2 MG/ML 2 ML VIAL IV PRN (08:55)
[2021-07-13] MEDS ORDERED: RIVAROXABAN 20 MG TAB PO SCH (09:00)
[2021-07-13] MEDS ORDERED: VANCOMYCIN TROUGH ONE (11:30)
[2021-07-13] MEDS: ACETAMINOPHEN 500 MG TAB PO SCH ×2 (12:10→18:37)
--- NOTE | 2021-07-13 13:13 | Hospitalist Progress Note ---
Date of Service July 13, 2021 Assessment & Plan (1) Infected prosthetic knee joint: Plan: Faith is a 71F here for elective orthopedic admission for infected R knee prosthesis s/p R knee replacement with antibiotic spacer, POD2. (1) Infected prosthetic knee joint s/p revision - BCx no growth at 24 hours, wound Cx and synovial fluid Cx no growth at 24 hrs. Previous wound Cx from 04/2021 grew MRSE - Low suspicion for endocarditis. May pursue echocardiogram if symptoms worsen/evolve - Scheduled Tylenol to pain control regimen - Deescalate from IV vancomycin to IV daptomycin tomorrow - Abx (4-6 weeks with long-term PO abx afterward) to be delivered through A-Port from cancer instead of PICC, ok per orthopedics - Continue PT/OT - PT/OT recommend SNF. CM working on placement (2) Atrial fibrillation - Rate controlled with pacemaker, pacer MODE AAIR with mode switch to DDDR - Currently rate-controlled in 60s-70s, not sinus rhythm - Xarelto prophylactic dose 10 mg, resume 20 mg dose tomorrow - Continue diltiazem (3) Infiltrating ductal carcinoma of left breast - Continue home Palbociclib - No acute needs - Mediport site stable and clean, A-Port to be used for abx per orthopedics (4) Diabetes mellitus type 2, uncontrolled - On Trulicity and Glipizide at home; hold outpatient oral diabetes medications - Pharmacy consulted - Lantus 24-28 units SQ HS, NovoLog per scale ACHS, Prandial insulin per carb ratio of1 unit per 7 grams (5) Hypothyroidism - Continue Synthroid- 25 mcg (6) Obstructive sleep apnea - Does not use CPAP at home currently - Stable pulse ox, respiratory status at present (7) Chronic GERD - Continue Protonix FENGI: carb consistent Code status: Full DVT ppx: Xarelto Isolation: None Dispo: Med/surg, discharge to rehab pending improvement (2) Aortic stenosis: (3) Breast cancer: (4) Arthritis: (5) Constipation: (6) Chronic GERD: (7) Gait disturbance: (8) Hypocalcemia: Admission and Anticipated Discharge Date Admission Date: July 11, 2021 Supervising Physician Co-Signing Physician Notes Patient seen and examined independently of PGY-1 Dr. Lee. Agree with history, exam findings, assessment and plan of care as outlined. In brief, Ms. Solorzano is a 71 year old female with history of afib, DM and left breast cancer admitted by orthopedics for right knee prosthesis infection. 1. Infected prosthetic knee, right. S/p revision/spacer placement. Cultures without growth, but prior culture grew MRSE. Pain control with Tylenol. Switched vancomycin to dapto in the AM. Plan for 4-6 weeks of IV antibiotics followed by extermination inspector oral antibiotics. Working on SNF placementinsurance and IV antibiotic administration are complicating factors. 2. Atrial fibrillation. Rate controlled. Has a pacer. AC with Xarelto. Currently on prophylactic 10mg dose but will plan to increase to 20mg therapeutic dose tomorrow. 3. DM. basal bolus insulin. Glycemic consult. 4. Breast cancer. Continuing home Palbociclib. Other chronic issues are stable; home medications continued. Dispo: pending SNF placement. Subjective No acute events overnight. Faith feels tired after moving from her bed to the chair and from not sleeping well. She had slightly improved right knee pain that she rates as a 7/10 that improves with pain medication. She does have her normal nausea that improves with antiemetics and low appetite. She has not had a bowel movement in 2 days and feels some abdominal pain consistent with gas. She would like to go to rehab after discharge. Review of Systems Constitutional: no fever and no chills Respiratory: no dyspnea Cardiovascular: no chest pain, no palpitations and no calf pain Gastrointestinal: + nausea and + constipation; no abdominal pain Genitourinary: no dysuria Musculoskeletal: + right knee pain Neurologic: + tingling (carpal tunnel); no tremor(s), no headache(s) and no memory loss Physical Exam Constitutional: WD/WN, vitals as above Pleasant, alert Eyes: Normal conjunctiva, anicteric sclerae ENMT: External ear and nose normal Respiratory: normal respiratory effort, lungs clear to auscultation Cardiovascular: Rate/Rhythm: + irregularly irregular Extremities: no calf tenderness Gastrointestinal (Abdomen): normal bowel sounds, soft, nontender, no hepatosplenomegaly Musculoskeletal: R knee in immobilizer Results & Data Results & Data ([facility]) Vital Signs (Past 12 Hours) Vital Signs Temp Pulse Resp BP Pulse Ox 07/13/21 07:52 37.0 C 79 16 126/70 96 Laboratory Results 07/13/21 07/13/21 07/13/21 Range/Units 12:09 11:38 08:23 POC Glucose 171 H 214 H (70-99) mg/dl Calcium (8.5-10.1) mg/dl Vancomycin Trough 12.6 (10-20) mcg/ml 07/13/21 07/13/21 07/12/21 Range/Units 05:04 05:04 20:40 WBC 2.54 L (4.8-10.8) K/uL RBC 2.66 L (4.2-5.4) M/uL Hgb 7.9 L (12.0-16.0) g/dL Hct 25.2 L (37-47) % MCV 94.7 (80-100) fL MCH 29.7 (25-34) pg MCHC 31.3 L (32-36) g/dL RDW Std Deviation 62.2 H (36.4-46.3) fL RDW Coeff of Thompson 18.3 H (11.5-14.5) % Plt Count 282 (130-400) K/uL MPV 10.2 (7.4-10.4) fL Immature Gran % (Auto) 0.0 % Neut % (Auto) 62.2 % Lymph % (Auto) 31.1 % Claiborne % (Auto) 4.3 % Eos % (Auto) 1.6 % Baso % (Auto) 0.8 % Neut # (Auto) 1.58 (1.4-6.5) K/uL Lymph # (Auto) 0.79 L (1.2-3.4) K/uL Claiborne # (Auto) 0.11 (0.11-0.59) K/uL Eos # (Auto) 0.04 (0-0.5) K/uL Baso # (Auto) 0.02 (0-0.2) K/uL Immature Gran # (Auto) 0.00 (0.00-0.02) K/uL Ovalocytes 1+ Sodium 136 (136-145) mmol/L Potassium 3.8 (3.5-5.1) mmol/L Chloride 105 (98-107) mmol/L Carbon Dioxide 27 (21-32) mmol/L Anion Gap 4 (3-11) BUN 12 (6-23) mg/dl Creatinine 0.46 L (0.6-1.2) mg/dl Est Cr Clr Drug Dosing 105.7 ml/min Est GFR ( Amer) 114.4 ml/min Est GFR (Non-Af Amer) 98.7 ml/min BUN/Creatinine Ratio 26.1 H (10-20) Glucose 190 H (70-99(Fasting)) mg/dl POC Glucose 180 H (70-99) mg/dl Calcium 8.0 L (8.5-10.1) mg/dl (1) Breast cancer Breast location: unspecified site of breast Estrogen receptor status: unspecified Laterality: unspecified laterality Patient sex: female Qualified Code(s): C50.919 - Malignant neoplasm of unspecified site of unspecified female breast
[2021-07-13] MEDS: DAPTOmycin 300 MG in SYRINGE 0 ML IV SCH (13:23)
[2021-07-13] MEDS: HYDROmorphone INJ 0.5 MG/0.5 ML SYR IV PRN (17:17)
[2021-07-13] MEDS: SENNA 8.6 MG TAB PO SCH (22:07)
[2021-07-13] MEDS: ATORVASTATIN 40 MG TAB PO SCH (22:07)
[2021-07-13] MEDS: INSULIN GLARGINE SOLOSTAR 100 UNITS/ML 3 ML PEN SQ SCH (22:18)
[2021-07-14] MEDS: Scopolamine CHECK PATCH PLACEMENT SCH (00:54)
[2021-07-14] MEDS: MELATONIN 3 MG TAB PO PRN (01:03)
[2021-07-14] MEDS: LEVOTHYROXINE SODIUM 25 MCG TABLET PO SCH (04:58)
[2021-07-14] MEDS: ACETAMINOPHEN 500 MG TAB PO SCH ×3 (04:58→17:56)
[2021-07-14] MEDS: HYDROmorphone INJ 0.5 MG/0.5 ML SYR IV PRN (05:07)
[2021-07-14] MEDS: HEPARIN 100 UNIT/ML 5ML FLUSH IV PRN ×2 (05:10→11:00)
[2021-07-14 05:39] LABS: Basophils # (auto) 0.02 K/uL (0-0.2); Basophils % (auto) 0.7 %; Eosinophils # (auto) 0.03 K/uL (0-0.5); Eosinophils % (auto) 1.1 %; Hematocrit (blood only) 23.6 % (37-47); Hemoglobin 7.6 g/dL (12.0-16.0); Immature Granulocytes # (auto) 0.02 K/uL (0.00-0.02); Immature Granulocytes % (auto) 0.7 %; Lymphocytes # (auto) 0.95 K/uL (1.2-3.4); Lymphocytes % (auto) 35.3 %; Mean Corpuscular Hemoglobin 30.6 pg (25-34); Mean Corpuscular Hgb Conc 32.2 g/dL (32-36); Mean Corpuscular Volume 95.2 fL (80-100); Monocytes # (auto) 0.11 K/uL (0.11-0.59); Monocytes % (auto) 4.1 %; Neutrophils # (auto) 1.56 K/uL (1.4-6.5); Neutrophils % (auto) 58.1 %; Platelet Count 282 K/uL (130-400); RDW Coefficient of Variation 18.4 % (11.5-14.5); RDW Standard Deviation 62.6 fL (36.4-46.3); Red Blood Count 2.48 M/uL (4.2-5.4); White Blood Count 2.69 K/uL (4.8-10.8)
[2021-07-14 06:06] LABS: BUN Creatinine Ratio 29.4 (10-20); Calcium 8.1 mg/dl (8.5-10.1); Creatinine Clr Calc Pharmacy 95.4 ml/min; Est GFR (African American) 110.6 ml/min; Est GFR (Non-African American) 95.4 ml/min; Potassium 3.7 mmol/L (3.5-5.1)
[2021-07-14 06:19] LABS: Anisocytosis Present; Macrocytosis Present
[2021-07-14] MEDS: ASCORBIC ACID 500 MG TAB PO SCH ×2 (09:18→17:54)
[2021-07-14] MEDS: DULoxetine HCL 60 MG CAP PO SCH (09:19)
[2021-07-14] MEDS: CALCIUM CARBONATE 1250MG TAB PO SCH (09:19)
[2021-07-14] MEDS: DULoxetine HCL 30 MG CAP PO SCH (09:19)
[2021-07-14] MEDS: DOCUSATE SODIUM 100 MG CAP PO SCH ×2 (09:19→20:06)
[2021-07-14] MEDS: GABAPENTIN 600 MG TAB PO SCH ×2 (09:19→20:05)
[2021-07-14] MEDS: dilTIAZem HCL 240 MG CAPCR PO SCH (09:19)
[2021-07-14] MEDS: FERROUS GLUCONATE 324 MG TAB PO SCH ×2 (09:19→17:54)
[2021-07-14] MEDS: CHOLECALCIFEROL 1,000 UNITS 25 MCG TAB PO SCH (09:19)
[2021-07-14] MEDS: PANTOprazole 40 MG TAB PO SCH (09:20)
[2021-07-14] MEDS: lisinopril 10 MG TAB PO SCH (09:20)
[2021-07-14] MEDS: TAPENTADOL HCL ER 50 MG TABCR PO SCH ×2 (09:20→20:06)
[2021-07-14] MEDS: THIAMINE HCL 100 MG TAB PO SCH (09:20)
[2021-07-14] MEDS: RIVAROXABAN 10 MG TABLET PO SCH (09:20)
[2021-07-14] MEDS: MULTIVITAMIN TAB PO SCH (09:20)
[2021-07-14] MEDS: PALBOCICLIB 125 MG PO SCH (09:20)
[2021-07-14] MEDS: LETROZOLE 2.5 MG TAB PO SCH (09:20)
[2021-07-14] MEDS: LORazepam 0.5 MG TAB PO SCH (09:20)
[2021-07-14] MEDS: INSULIN ASPART PER UNIT SC SCH ×4 (09:26→20:24)
--- NOTE | 2021-07-14 10:54 | Progress Notes ---
DATE OF SERVICE: 07/14/2021. SUBJECTIVE: A 71-year-old female now postop day 3 from removal of an infected right knee replacement and placement of articulating antibiotic spacer. She continues to have pain, but seems to be gettin g a little bit better daily. No new complaints. OBJECTIVE: VITAL SIGNS: Temperature is 36.5. Vital signs are stable. PHYSICAL EXAMINATION: GENERAL: Shows a pleasant, elderly female, sitting up in bed and looks pretty comfortable. She is e ating breakfast and does not seem to be in a lot of pain. EXTREMITIES: Examination of the right leg reveals the knee immobilizer to be in place. Leg is well aligned. She can dorsiflex and plantarflex her foot appropriately. She is neurologically intact. LABORATORY DATA: Hemoglobin 7.6. Hematocrit 23.6. Electrolytes are stable. Culture results are on ce again growing coag-negative staph, methicillin-resistant. ASSESSMENT: A 71-year-old female now postoperative day 3 from resection arthroplasty and placement o f an articulating antibiotic spacer. She had multiple cultures growing out methicillin-resistant Sta phylococcus epidermidis. This is all consistent with her continued infection. She seems to be doing reasonably well. She has been converted from vancomycin to daptomycin. She has been anemic, but re ally without symptoms. PLAN: 1. DVT prophylaxis includes thigh-high TEDs, SCDs, and she can go back on her full-strength of Eliqu is at any time. 2. PT/OT. She can weight bear as tolerated in the knee immobilizer. We do not want any knee range of motion at this point, but she can weight bear as tolerated. She can work on straight leg raises. 3. Six weeks of IV antibiotics followed likely by some oral antibiotics. She is on daptomycin and t hen likely Bactrim. 4. Medical management as per the medicine service. 5. Disposition: We are just waiting for discharge. She has got an appropriate A-port and we can us e this for her antibiotics. She is orthopedically okay for discharge any time medically stable. We will continue to follow her hemoglobin. I would favor on holding any blood unless she becomes sympto matic. Job ID: [id number]
[2021-07-14] MEDS: DAPTOmycin 300 MG in SYRINGE 0 ML IV SCH (10:58)
[2021-07-14] MEDS: oxyCODONE HCL IR 5 MG TAB (IMMEDIATE RELEASE) PO PRN (14:39)
--- NOTE | 2021-07-14 15:51 | Hospitalist Progress Note ---
Date of Service July 14, 2021 Assessment & Plan (1) Infected prosthetic knee joint: Plan: 71 yo F here for elective orthopedic admission for infected R knee prosthesis s/p R knee replacement with antibiotic spacer, POD1. (1) Infected prosthetic knee joint - BCx pending, wound Cx and synovial fluid Cx no growth at 24 hrs. Previous wound Cx from 04/2021 grew MRSE Joint fluid grew coag neg staph, sensitivities available - Low suspicion for endocarditis, may pursue echocardiogram if symptoms worsen/evolve or BCx positive - ortho consulted infected right total knee replacement 07/12, right leg immobilized in brace no ROM at this time DVT prophylaxis with alicia Romeo - Pain control per orthopedics: dilaudid, nuycenta, tylenol, oxycodone - started vancomycin, switched to daptomycin 07/13 - Continue PT/OT - Abx (4-6 weeks with long-term PO abx possibly bactrim afterward) to be delivered through A-Port from cancer instead of PICC, ok per orthopedics - pending SNF placement that will do IV abx (2) Atrial fibrillation: -Rate controlled with pacemaker, pacer MODE AAIR with mode switch to DDDR -Currently rate-controlled in 60s-70s, not sinus rhythm -Restarted home Xarelto prophylactic dose 10 mg, resume 20 mg dose today -Continue diltiazem (3) Infiltrating ductal carcinoma of left breast: -Continue home Palbociclib - No acute needs - Mediport site stable and clean, A-Port to be used for abx per orthopedics (4) Diabetes mellitus type 2, uncontrolled: - On Trulicity and Glipizide at home - Pharmacy consult placed- follow for 24-48 hours with oral intake following surgery and infection - Novolog ISS, will resume basal later (5) Hypothyroidism: -Continue Synthroid- 25 mcg (6) Obstructive sleep apnea: -Does not use CPAP at home currently -Stable pulse ox, respiratory status at present (7) Chronic GERD: -Continue Protonix FENGI: carb consistent Code status: Full DVT ppx: Xarelto 20mg daily Isolation: None Dispo: Med/surg, discharge to rehab pending improvement (2) Aortic stenosis: (3) Breast cancer: (4) Arthritis: (5) Constipation: (6) Chronic GERD: (7) Gait disturbance: (8) Hypocalcemia: Admission and Anticipated Discharge Date Admission Date: July 11, 2021 Supervising Physician Co-Signing Physician Notes Patient seen and examined with PGY-1 Dr. Holt. Agree with history, exam findings, assessment and plan of care as outlined. In brief, Ms. Solorzano is a 71 year old female with history of afib, DM and left breast cancer admitted by orthopedics for right knee prosthesis infection. Having pain in the right leg. No dizziness, chest pain or dyspnea. Right leg in knee immobilizer. No edema. 1. Infected prosthetic knee, right. S/p revision/spacer placement. Cultures without growth, but prior culture grew MRSE. Pain control with Tylenol. Now on dapto in the AM. Plan for 4-6 weeks of IV antibiotics followed by review nurse oral antibiotics. Working on SNF placementinsurance and IV antibiotic administration are complicating factors. 2. Atrial fibrillation. Rate controlled. Has a pacer. AC with Xarelto 20mg. 3. DM. basal bolus insulin. Glycemic consult. 4. Breast cancer. Continuing home Palbociclib. Other chronic issues are stable; home medications continued. Dispo: pending SNF placement. Subjective 71yo Female seen at bedside, babs comfortable cooperative. States she has pain in her knee but it is chronic, states she has pain while walking but says she will cooperate with physical therapy to regain her mobility. Her right leg is still immobilized in brace, right leg has scds but alicia hose was removed, patient states they were too right requests larger size. Otherwise slept ate well. Review of Systems Review of Systems: Negative fever chills Negative headache dizziness Negative chest pain palpitations SOB Negative nausea vomitting diarrhea constipation Negative numbness tingling rash swelling Physical Exam Constitutional: WD/WN, vitals as above Eyes: PERRL, conjunctivae normal, anicteric sclerae ENMT: external ear and nose normal, oropharynx normal Neck: trachea midline, no thyromegaly Respiratory: normal respiratory effort, lungs clear to auscultation Cardiovascular: RRR, no murmur, no edema Chest (Breasts): Chest: normal inspection of chest Gastrointestinal (Abdomen): normal bowel sounds, soft, nontender, no hepatosplenomegaly Musculoskeletal: Extremities: + limited ROM of lower extremity (right leg in brace) Right Skin: no rashes, warm and dry Results & Data Results & Data ([facility]) Vital Signs (Past 12 Hours) Vital Signs Temp Pulse Resp BP Pulse Ox 07/14/21 07:07 36.5 C 93 H 18 130/71 97 Resident Activity Tracking Resident Involvement: Resident Care Provided Care Provided: Adult Hospital Medicine (1) Breast cancer Breast location: unspecified site of breast Estrogen receptor status: unspecified Laterality: unspecified laterality Patient sex: female Qualified Code(s): C50.919 - Malignant neoplasm of unspecified site of unspecified female breast
[2021-07-14] MEDS: ATORVASTATIN 40 MG TAB PO SCH (20:06)
[2021-07-14] MEDS: SENNA 8.6 MG TAB PO SCH (20:06)
[2021-07-14] MEDS: INSULIN GLARGINE SOLOSTAR 100 UNITS/ML 3 ML PEN SQ SCH (20:25)
[2021-07-15] MEDS: ACETAMINOPHEN 500 MG TAB PO SCH ×3 (05:43→19:54)
[2021-07-15] MEDS: oxyCODONE HCL IR 5 MG TAB (IMMEDIATE RELEASE) PO PRN ×2 (05:43→17:15)
[2021-07-15] MEDS: LEVOTHYROXINE SODIUM 25 MCG TABLET PO SCH (05:44)
[2021-07-15] MEDS: HEPARIN 100 UNIT/ML 5ML FLUSH IV PRN ×3 (06:44→16:05)
[2021-07-15 07:02] LABS: Basophils # (auto) 0.02 K/uL (0-0.2); Basophils % (auto) 0.9 %; Eosinophils # (auto) 0.02 K/uL (0-0.5); Eosinophils % (auto) 0.9 %; Hematocrit (blood only) 23.1 % (37-47); Hemoglobin 7.4 g/dL (12.0-16.0); Lymphocytes # (auto) 0.66 K/uL (1.2-3.4); Lymphocytes % (auto) 28.6 %; Mean Corpuscular Hemoglobin 30.3 pg (25-34); Mean Corpuscular Volume 94.7 fL (80-100); Monocytes # (auto) 0.12 K/uL (0.11-0.59); Monocytes % (auto) 5.2 %; Neutrophils # (auto) 1.49 K/uL (1.4-6.5); Neutrophils % (auto) 64.4 %; Platelet Count 265 K/uL (130-400); RDW Coefficient of Variation 18.5 % (11.5-14.5); RDW Standard Deviation 62.8 fL (36.4-46.3); Red Blood Count 2.44 M/uL (4.2-5.4); White Blood Count 2.31 K/uL (4.8-10.8)
--- NOTE | 2021-07-15 07:12 | Hospitalist Progress Note ---
Date of Service July 15, 2021 Assessment & Plan (1) Infected prosthetic knee joint: Plan: 71 yo F here for elective orthopedic admission for infected R knee prosthesis s/p R knee replacement with antibiotic spacer, POD4. (1)Symptomatic Anemia -Hbg today 7.4, down from 7.6 yesterday -patient states she felt 'unwell', worse compared to yesterday. Discussed consent for blood transfusion, patient agreed -transfusing 1U blood, cbc check 6pm (2) Infected prosthetic knee joint - BCx pending, wound Cx and synovial fluid Cx no growth at 24 hrs. Previous wound Cx from 04/2021 grew MRSE Joint fluid grew coag neg staph, sensitivities available - Low suspicion for endocarditis, may pursue echocardiogram if symptoms worsen/evolve or BCx positive - ortho consulted infected right total knee replacement 07/12, right leg immobilized in brace no ROM at this time DVT prophylaxis with SCDs, alicia hose - Pain control per orthopedics: dilaudid, nuycenta, tylenol, oxycodone - started vancomycin, switched to daptomycin 07/13 - Continue PT/OT - Abx (4-6 weeks with long-term PO abx possibly bactrim afterward) to be delivered through A-Port from cancer instead of PICC, ok per orthopedics - pending SNF placement that will do IV abx (3) Atrial fibrillation: -Rate controlled with pacemaker, pacer MODE AAIR with mode switch to DDDR -Currently rate-controlled in 60s-70s, not sinus rhythm -Restarted home Xarelto prophylactic dose 10 mg, resume 20 mg dose today -Continue diltiazem (4) Infiltrating ductal carcinoma of left breast: -Continue home Palbociclib - No acute needs - Mediport site stable and clean, A-Port to be used for abx per orthopedics (5) Diabetes mellitus type 2, uncontrolled: - On Trulicity and Glipizide at home - Pharmacy consult placed- follow for 24-48 hours with oral intake following surgery and infection - Novolog ISS, will resume basal later (6) Hypothyroidism: -Continue Synthroid- 25 mcg (7) Obstructive sleep apnea: -Does not use CPAP at home currently -Stable pulse ox, respiratory status at present (8) Chronic GERD: -Continue Protonix FENGI: carb consistent Code status: Full DVT ppx: Xarelto 20mg daily Isolation: None Dispo: Med/surg, discharge to rehab pending improvement (2) Aortic stenosis: (3) Breast cancer: (4) Arthritis: (5) Constipation: (6) Chronic GERD: (7) Gait disturbance: (8) Hypocalcemia: Admission and Anticipated Discharge Date Admission Date: July 11, 2021 Supervising Physician Co-Signing Physician Notes Patient seen and examined independently of PGY-1 Dr. Holt. Agree with history, exam findings, assessment and plan of care as outlined. In brief, Ms. Solorzano is a 71 year old female with history of afib, DM and left breast cancer admitted by orthopedics for right knee prosthesis infection. Feeling a bit lightheaded when she walks to the bathroom. No chest pain, dyspnea. + fatigue. Has not had any melena or bright red blood in the stool. VS and nursing notes reviewed. Not tachycardia. No murmur, rub or gallop. Lungs are clear to auscultation. Good air movement throughout. Right leg in knee immobilizer. No edema. Labs reviewed. 1. Infected prosthetic knee, right. S/p revision/spacer placement. Cultures without growth, but prior culture grew MRSE. Pain control with Tylenol. Now on dapto in the AM. Plan for 4-6 weeks of IV antibiotics followed by alf oral antibiotics. Working on SNF placementinsurance and IV antibiotic administration are complicating factors. 2. Atrial fibrillation. Rate controlled. Has a pacer. AC with Xarelto 20mg. 3. Anemia. Baseline hgb ~10. Hemoglobin has been steadily dropping since admission. Today, symptomatic with hgb 7.4. Consented, type and cross. Transfuse 1 unit of PRBCs. 4. DM. basal bolus insulin. Glycemic consult. 5. Breast cancer. Continuing home Palbociclib. Other chronic issues are stable; home medications continued. Dispo: pending SNF placementawaiting to hear back from [facility]. Subjective 71yo Female seen at bedside, calm comfortable cooperative. Her hbg remains under 8, she states she feels 'unwell, like I want to be grumpy and mean'. Discussed tranfusion with patient, patient agreed to blood transfusion. Checked up on patient during transfusion, patient reports no change in symptoms. States she has walked around some and that ortho was going to move her leg brace. Patient states she ordered yogurt hoping it will make her feel better. Review of Systems Review of Systems: Negative fever chills Negative headache dizziness Negative chest pain palpitations SOB Negative nausea vomitting diarrhea constipation Negative numbness tingling rash swelling Physical Exam Constitutional: WD/WN, vitals as above Eyes: PERRL, conjunctivae normal, anicteric sclerae ENMT: external ear and nose normal, oropharynx normal Neck: trachea midline, no thyromegaly Respiratory: normal respiratory effort, lungs clear to auscultation Cardiovascular: RRR, no murmur, no edema Chest (Breasts): Chest: normal inspection of chest Gastrointestinal (Abdomen): normal bowel sounds, soft, nontender, no he patosplenomegaly Musculoskeletal: Extremities: + limited ROM of lower extremity (right leg in brace) Right Skin: no rashes, warm and dry Results & Data Results & Data ([facility]) Vital Signs (Past 12 Hours) Vital Signs Temp Pulse Resp BP Pulse Ox 07/15/21 01:35 36.5 C 72 16 128/72 97 Resident Activity Tracking Resident Involvement: Resident Care Provided Care Provided: Adult Hospital Medicine (1) Breast cancer Breast location: unspecified site of breast Estrogen receptor status: unspecified Laterality: unspecified laterality Patient sex: female Qualified Code(s): C50.919 - Malignant neoplasm of unspecified site of unspecified female breast
[2021-07-15 07:22] LABS: BUN Creatinine Ratio 24.5 (10-20); Calcium 8.4 mg/dl (8.5-10.1); Creatinine Clr Calc Pharmacy 91.8 ml/min; Est GFR (African American) 109.2 ml/min; Est GFR (Non-African American) 94.2 ml/min; Potassium 3.6 mmol/L (3.5-5.1)
[2021-07-15 07:24] LABS: Ovalocytes 1+
[2021-07-15] MEDS: ASCORBIC ACID 500 MG TAB PO SCH ×2 (07:32→17:18)
[2021-07-15] MEDS: FERROUS GLUCONATE 324 MG TAB PO SCH ×2 (07:32→17:17)
--- NOTE | 2021-07-15 09:00 | Progress Notes ---
DATE OF SERVICE: 07/15/2021. SUBJECTIVE: A 71-year-old female now postop day 4 from right removal of infected knee replacement an d placement of antibiotic articulating spacer. She is doing a bit better. Pain seems better control led. No new complaints. Waiting for placement. OBJECTIVE: VITAL SIGNS: Temperature 36.5. Vital signs are stable. PHYSICAL EXAMINATION: EXTREMITIES: Physical examination of the right leg reveals the leg to be well aligned. Dressing is clean, dry and intact. She can dorsiflex and plantarflex her foot appropriately. She is neurologica lly intact. LABORATORY DATA: Hemoglobin 7.4. Hematocrit 23.1. Electrolytes are stable. Culture results are gr owing out methicillin-resistant coagulase-negative staph, same as previously. ASSESSMENT: A 71-year-old female, now 4 days out from removal of a knee replacement and placement of an articulated antibiotic spacer. She is doing better. Really just waiting for placement. PLAN: 1. DVT prophylaxis includes thigh-high TEDs, SCDs, and she is back on her normal anticoagulation. 2. PT/OT. She can weight bear as tolerated on the right knee. She needs to have the knee immobiliz er on when weightbearing. No knee range of motion for now. 3. Medical management as per the medicine service. 4. Disposition: She is orthopedically okay for discharge any time we can find a bed and a location for her. We are just looking for placement. Job ID: [id number]
[2021-07-15] MEDS: LORazepam 0.5 MG TAB PO SCH (09:04)
[2021-07-15] MEDS: DULoxetine HCL 60 MG CAP PO SCH (09:05)
[2021-07-15] MEDS: TAPENTADOL HCL ER 50 MG TABCR PO SCH ×2 (09:05→19:59)
[2021-07-15] MEDS: CALCIUM CARBONATE 1250MG TAB PO SCH (09:05)
[2021-07-15] MEDS: MULTIVITAMIN TAB PO SCH (09:05)
[2021-07-15] MEDS: LETROZOLE 2.5 MG TAB PO SCH (09:06)
[2021-07-15] MEDS: lisinopril 10 MG TAB PO SCH (09:06)
[2021-07-15] MEDS: dilTIAZem HCL 240 MG CAPCR PO SCH (09:06)
[2021-07-15] MEDS: DOCUSATE SODIUM 100 MG CAP PO SCH ×2 (09:08→20:00)
[2021-07-15] MEDS: RIVAROXABAN 20 MG TAB PO SCH (09:08)
[2021-07-15] MEDS: DULoxetine HCL 30 MG CAP PO SCH (09:08)
[2021-07-15] MEDS: CHOLECALCIFEROL 1,000 UNITS 25 MCG TAB PO SCH (09:08)
[2021-07-15] MEDS: THIAMINE HCL 100 MG TAB PO SCH (09:09)
[2021-07-15] MEDS: PANTOprazole 40 MG TAB PO SCH (09:09)
[2021-07-15] MEDS: GABAPENTIN 600 MG TAB PO SCH ×2 (09:10→19:59)
[2021-07-15] MEDS: PALBOCICLIB 125 MG PO SCH (09:16)
[2021-07-15] MEDS: INSULIN ASPART PER UNIT SC SCH ×4 (09:17→20:46)
[2021-07-15] MEDS ORDERED: SODIUM CHLORIDE 0.9% 250 ML IV PRN (10:16)
--- NOTE | 2021-07-15 13:45 | Pharmacy Report ---
Pharmacy Glycemic Short Note 2 - Date of Service July 15, 2021 - Glycemic Short BSG Results (Last 24 hours): 07/14/21 07/14/21 07/15/21 17:03 20:18 06:40 Glucose 57 L POC Glucose 82 195 H 07/15/21 07/15/21 08:13 12:09 Glucose POC Glucose 71 121 H OUTPATIENT ANTIDIABETIC REGIMEN: * Lantus 31 units SQ HS * Trulicity 3 mg SQ weekly on Fridays * Glipizide 5 mg PO AM * HbA1c = 6.8% (07/09/21) ASSESSMENT: 07/15: * BSGs yesterday were [phone] mg/dl. Patient received total 40 units of insulin yesterday of which 28 units were basal and 12 units bolus. * Patient was hypoglycemic early this AM with fasting BSG = 57 mg/dl. HS Lantus dose reduced to 24 units today. * Novolog CR was also loosened with breakfast this AM to prevent low BSG later today. 07/13: * BSGs acceptable yesterday: [id number] mg/dL * Received 40 units of insulin: 20 units basal + 20 units bolus * Sharp increase in fasting BSG to 214 mg/dL this AM - likely due to basal deficiency with improved diet * Will increase Lantus this evening and tighten Novolog 07/12: * Faith is a 71 yo T2DM s/p R revision of total knee replacement * She was administered 50% of home Lantus dose last evening (15 units) - fasting of 105 mg/dL today. Will increase to 15-20 units based on BSG scale. I anticipate fasting will trend up as diet has advanced. * Post prandial BSGs are well controlled for the most part - will slightly tighten carb coverage PLAN FOR INPATIENT GLYCEMIC CONTROL: * Hold outpatient oral diabetes medications * Basal insulin- decreased * Lantus 24 units SQ HS * Bolus insulin - loosened CR * NovoLog per scale ACHS or Q6hrs while NPO * Goal Range: Low 110 mg/dL - High 140 mg/dL * Correction Factor: 20 mg/dL/unit * Nutritional / Prandial insulin per carb ratio of 1 unit per 9 grams CHO consumed PLAN FOR DISCHARGE: * A1c of 6.8% is at goal * Continue home regimen on discharge as long as patient denies frequent hypoglycemia
[2021-07-15] MEDS: DAPTOmycin 300 MG in SYRINGE 0 ML IV SCH (17:19)
[2021-07-15] MEDS ORDERED: Nursing to Pharmacy Communication SCH (17:45)
[2021-07-15 18:27] LABS: Basophils # (auto) 0.04 K/uL (0-0.2); Basophils % (auto) 1.7 %; Eosinophils # (auto) 0.03 K/uL (0-0.5); Eosinophils % (auto) 1.3 %; Hematocrit (blood only) 25.2 % (37-47); Immature Granulocytes # (auto) 0.02 K/uL (0.00-0.02); Immature Granulocytes % (auto) 0.9 %; Lymphocytes # (auto) 0.92 K/uL (1.2-3.4); Lymphocytes % (auto) 39.3 %; Mean Corpuscular Hemoglobin 29.5 pg (25-34); Mean Corpuscular Hgb Conc 31.7 g/dL (32-36); Mean Platelet Volume 10.2 fL (7.4-10.4); Monocytes # (auto) 0.11 K/uL (0.11-0.59); Monocytes % (auto) 4.7 %; Neutrophils # (auto) 1.22 K/uL (1.4-6.5); Neutrophils % (auto) 52.1 %; Platelet Count 228 K/uL (130-400); RDW Coefficient of Variation 18.2 % (11.5-14.5); RDW Standard Deviation 59.5 fL (36.4-46.3); Red Blood Count 2.71 M/uL (4.2-5.4); White Blood Count 2.34 K/uL (4.8-10.8)
[2021-07-15] MEDS: ATORVASTATIN 40 MG TAB PO SCH (20:00)
[2021-07-15] MEDS: SENNA 8.6 MG TAB PO SCH (20:00)
[2021-07-15] MEDS: MELATONIN 3 MG TAB PO PRN (20:01)
[2021-07-15] MEDS: CARBOHYDRATES FOR HYPOGLYCEMIA PO PRN (20:10)
[2021-07-15] MEDS ORDERED: GLUCOSE 10 TABS/TUBE PO PRN (20:15)
[2021-07-15] MEDS ORDERED: DEXTROSE 50% 50 ML SYRINGE IV PRN (20:15)
[2021-07-15] MEDS ORDERED: GLUCOSE 40% GEL 15 GM TUBE PO PRN (20:15)
[2021-07-15] MEDS ORDERED: GLUCAGON FOR INJ 1 MG VIAL IM PRN (20:15)
[2021-07-15] MEDS ORDERED: INSULIN GLARGINE SOLOSTAR 100 UNITS/ML 3 ML PEN SQ SCH ×2 (21:00)
[2021-07-16 06:09] LABS: Hematocrit (blood only) 25.6 % (37-47); Hemoglobin 8.3 g/dL (12.0-16.0); Mean Corpuscular Hgb Conc 32.4 g/dL (32-36); Mean Corpuscular Volume 92.4 fL (80-100); Mean Platelet Volume 9.8 fL (7.4-10.4); Platelet Count 223 K/uL (130-400); RDW Coefficient of Variation 18.7 % (11.5-14.5); RDW Standard Deviation 61.3 fL (36.4-46.3); Red Blood Count 2.77 M/uL (4.2-5.4); White Blood Count 1.99 K/uL (4.8-10.8)
[2021-07-16] MEDS: ACETAMINOPHEN 500 MG TAB PO SCH ×3 (06:17→19:45)
[2021-07-16] MEDS: LEVOTHYROXINE SODIUM 25 MCG TABLET PO SCH (06:18)
[2021-07-16] MEDS: oxyCODONE HCL IR 5 MG TAB (IMMEDIATE RELEASE) PO PRN ×2 (06:20→19:49)
[2021-07-16 06:34] LABS: BUN Creatinine Ratio 27.5 (10-20); Calcium 8.3 mg/dl (8.5-10.1); Creatinine Clr Calc Pharmacy 95.4 ml/min; Est GFR (African American) 110.6 ml/min; Est GFR (Non-African American) 95.4 ml/min; Potassium 4.2 mmol/L (3.5-5.1)
[2021-07-16 06:47] LABS: Basophils # (auto) 0.01 K/uL (0-0.2); Basophils % (auto) 0.5 %; Eosinophils # (auto) 0.03 K/uL (0-0.5); Eosinophils % (auto) 1.5 %; Lymphocytes # (auto) 0.84 K/uL (1.2-3.4); Lymphocytes % (auto) 42.2 %; Monocytes # (auto) 0.12 K/uL (0.11-0.59); Neutrophils % (auto) 49.8 %; Ovalocytes 1+
[2021-07-16 06:52] LABS: Neutrophils # (auto) 0.99 K/uL (1.4-6.5)
--- NOTE | 2021-07-16 07:25 | Hospitalist Progress Note ---
Date of Service July 16, 2021 Assessment & Plan (1) Infected prosthetic knee joint: Plan: 71 yo F here for elective orthopedic admission for infected R knee prosthesis s/p R knee replacement with antibiotic spacer, POD4. (1) Infected prosthetic knee joint - BCx pending, wound Cx and synovial fluid Cx no growth at 24 hrs. Previous wound Cx from 04/2021 grew MRSE Joint fluid grew coag neg staph, sensitivities available - Low suspicion for endocarditis, may pursue echocardiogram if symptoms worsen/evolve or BCx positive - ortho consulted infected right total knee replacement 07/12, right leg immobilized in brace no ROM at this time DVT prophylaxis with alicia Romeo - Pain control per orthopedics: dilaudid, nuycenta, tylenol, oxycodone - started vancomycin, switched to daptomycin 07/13 - Continue PT/OT, patient actively participating in rehab though expresses pain during activity - Abx (4-6 weeks with long-term PO abx possibly bactrim afterward) to be delivered through A-Port from cancer instead of PICC, ok per orthopedics - pending SNF placement that will do IV abx Low Hbg -Hbg admit 10.6, decreased to 7.4 on 07/15 given 1U blood, currently at 8.3 -consent for blood transfusion, patient agreed (2) Atrial fibrillation: -Rate controlled with pacemaker, pacer MODE AAIR with mode switch to DDDR -Currently rate-controlled in 60s-70s, not sinus rhythm -Restarted home Xarelto prophylactic dose 10 mg, resumed 20 mg dose -Continue diltiazem (3) Infiltrating ductal carcinoma of left breast: -Continue home Palbociclib - No acute needs - [facility] site stable and clean, A-Port to be used for abx per orthopedics (4) Diabetes mellitus type 2, uncontrolled: - On Trulicity and Glipizide at home - Pharmacy consult placed- follow for 24-48 hours with oral intake following surgery and infection - Novolog ISS, will resume basal later (5) Hypothyroidism: -Continue Synthroid- 25 mcg (6) Obstructive sleep apnea: -Does not use CPAP at home currently -Stable pulse ox, respiratory status at present (7) Chronic GERD: -Continue Protonix FENGI: carb consistent Code status: Full DVT ppx: Xarelto 20mg daily Isolation: None Dispo: Med/surg, discharge to rehab pending improvement (2) Aortic stenosis: (3) Breast cancer: (4) Arthritis: (5) Constipation: (6) Chronic GERD: (7) Gait disturbance: (8) Hypocalcemia: Admission and Anticipated Discharge Date Admission Date: July 11, 2021 Supervising Physician Co-Signing Physician Notes I personally examined the patient and verified all edwards points of history and exam, discussed case, and agree with decision making with Dr Holt wantsunil to get out of hospital. still awaiting placement. vitals noted nad heent nc at mmm breathing unlabored no accessory muscles good effort skin no rashes no pallor or icterus 1. Infected prosthetic knee, right. S/p revision/spacer placement. Cultures without growth, but prior culture grew MRSE. Pain control with Tylenol. Now on dapto in the AM. Plan for 4-6 weeks of IV antibiotics followed by intermediate oral antibiotics. still awaiting SNF placement 2. Atrial fibrillation. rate controlled, anticoagulated 3. Anemia. transfused, continue current treatment. 4. DM. basal bolus insulin. Glycemic consult. 5. Breast cancer. Continuing home Palbociclib. Other chronic issues are stable; home medications continued. Dispo: pending SNF placement Subjective Patient seen at bedside, cooperative in pain, states her right knee hurts a lot after physical therapy, states it is warm but no bleeding/discharge. She says ortho has not come by to see her recently. Patient states she is ok with dilaudid to help manage her pain, says the oxycodone is not as helpful. She understands we are awaiting placement at this time. Patient states she is allowed to have her leg out the brace while in bed. Review of Systems Review of Systems: Negative fever chills Negative headache dizziness Negative chest pain palpitations SOB Negative nausea vomitting diarrhea constipation Negative numbness tingling rash swelling Physical Exam Constitutional: WD/WN, vitals as above Eyes: PERRL, conjunctivae normal, anicteric sclerae ENMT: external ear and nose normal, oropharynx normal Neck: trachea midline, no thyromegaly Respiratory: normal respiratory effort, lungs clear to auscultation Cardiovascular: RRR, no murmur, no edema Chest (Breasts): Chest: normal inspection of chest Gastrointestinal (Abdomen): normal bowel sounds, soft, nontender, no hepatosplenomegaly Musculoskeletal: Extremities: + limited ROM of lower extremity (right leg in brace, scar stapled closed healing well) Right Skin: no rashes, warm and dry Results & Data Results & Data ([facility]) Vital Signs (Past 12 Hours) Vital Signs Temp Pulse Resp BP Pulse Ox 07/15/21 20:24 37.1 C 67 17 125/61 98 Resident Activity Tracking Resident Involvement: Resident Care Provided Care Provided: Adult Hospital Medicine (1) Breast cancer Breast location: unspecified site of breast Estrogen receptor status: unspecified Laterality: unspecified laterality Patient sex: female Qualified Code(s): C50.919 - Malignant neoplasm of unspecified site of unspecified female breast
[2021-07-16] MEDS: INSULIN ASPART PER UNIT SC SCH ×4 (08:23→21:50)
--- NOTE | 2021-07-16 09:38 | Pharmacy Report ---
Pharmacy Glycemic Short Note 2 - Date of Service July 16, 2021 - Glycemic Short BSG Results (Last 24 hours): 07/15/21 07/15/21 07/15/21 12:09 17:05 20:04 Glucose POC Glucose 121 H 196 H 65 L* 07/15/21 07/16/21 07/16/21 20:26 05:45 08:11 Glucose 110 H POC Glucose 102 H 121 H OUTPATIENT ANTIDIABETIC REGIMEN: * Lantus 31 units SQ HS * Trulicity 3 mg SQ weekly on Fridays * Glipizide 5 mg PO AM * HbA1c = 6.8% (07/09/21) ASSESSMENT: 07/16: * Faith received a total of 34 units of insulin yesterday (20 units basal + 14 units bolus). * BSGs were 72-627-719-65 mg/dL. Asymptomatic with HS hypoglycemia but did require 15 g of CHO to improve BSG to 102 mg/dL. * Lantus dose was decreased and Novolog loosened at time of hypoglycemia last evening. * Fasting BSG was 121 mg/dL this AM - well controlled. * Will increase Lantus dose by 10% this AM as 20 units has been proven inadequate previously during this admission. * Continue with loosened Novolog parameters from last evening to prevent h ypoglycemia. 07/15: * BSGs yesterday were 418-564-89-195 mg/dl. Patient received total 40 units of insulin yesterday of which 28 units were basal and 12 units bolus. * Patient was hypoglycemic early this AM with fasting BSG = 57 mg/dl. HS Lantus dose reduced to 24 units today. * Novolog CR was also loosened with breakfast this AM to prevent low BSG later today. 07/13: * BSGs acceptable yesterday: 192-782-458-180 mg/dL * Received 40 units of insulin: 20 units basal + 20 units bolus * Sharp increase in fasting BSG to 214 mg/dL this AM - likely due to basal deficiency with improved diet * Will increase Lantus this evening and tighten Novolog PLAN FOR INPATIENT GLYCEMIC CONTROL: * Hold outpatient oral diabetes medications * Basal insulin - increased * Lantus 22 units SQ HS * Bolus insulin - loosened CF/CR * NovoLog per scale ACHS or Q6hrs while NPO * Goal Range: Low 110 mg/dL - High 140 mg/dL * Correction Factor: 30 mg/dL/unit * Nutritional / Prandial insulin per carb ratio of 1 unit per 10 grams CHO consumed PLAN FOR DISCHARGE: * A1c of 6.8% is at goal * Continue home regimen on discharge as long as patient denies frequent hypoglycemia
[2021-07-16] MEDS: HYDROmorphone INJ 0.5 MG/0.5 ML SYR IV PRN ×3 (09:39→23:11)
[2021-07-16] MEDS: THIAMINE HCL 100 MG TAB PO SCH (09:41)
[2021-07-16] MEDS: GABAPENTIN 600 MG TAB PO SCH ×2 (09:42→19:47)
[2021-07-16] MEDS: lisinopril 10 MG TAB PO SCH (09:42)
[2021-07-16] MEDS: ASCORBIC ACID 500 MG TAB PO SCH ×2 (09:47→16:48)
[2021-07-16] MEDS: CHOLECALCIFEROL 1,000 UNITS 25 MCG TAB PO SCH (09:47)
[2021-07-16] MEDS: LETROZOLE 2.5 MG TAB PO SCH (09:48)
[2021-07-16] MEDS: DULoxetine HCL 60 MG CAP PO SCH (09:48)
[2021-07-16] MEDS: DOCUSATE SODIUM 100 MG CAP PO SCH ×2 (09:48→19:47)
[2021-07-16] MEDS: RIVAROXABAN 20 MG TAB PO SCH (09:48)
[2021-07-16] MEDS: dilTIAZem HCL 240 MG CAPCR PO SCH (09:49)
[2021-07-16] MEDS: PANTOprazole 40 MG TAB PO SCH (09:50)
[2021-07-16] MEDS: MULTIVITAMIN TAB PO SCH (09:50)
[2021-07-16] MEDS: CALCIUM CARBONATE 1250MG TAB PO SCH (09:50)
[2021-07-16] MEDS: DULoxetine HCL 30 MG CAP PO SCH (09:50)
[2021-07-16] MEDS: FERROUS GLUCONATE 324 MG TAB PO SCH ×2 (09:51→16:49)
[2021-07-16] MEDS: PALBOCICLIB 125 MG PO SCH (09:51)
[2021-07-16] MEDS: TAPENTADOL HCL ER 50 MG TABCR PO SCH ×2 (10:38→19:48)
[2021-07-16] MEDS: LORazepam 0.5 MG TAB PO SCH (12:41)
[2021-07-16] MEDS: DAPTOmycin 300 MG in SYRINGE 0 ML IV SCH (16:44)
--- NOTE | 2021-07-16 17:06 | Progress Notes ---
DATE OF SERVICE: 07/16/2021. SUBJECTIVE: A 71-year-old female now 5 days out from removal of an infected knee and placement of an articulating spacer. She continues to have some moderate amount of pain, but seems to be getting a little bit better daily. No new complaints. No chest pain or shortness of breath. Not feeling dizz y or lightheaded. OBJECTIVE: VITAL SIGNS: Temperature 36.9. Vital signs are stable. PHYSICAL EXAMINATION: GENERAL: Shows a pleasant, elderly female. She is sitting up in bed and looks pretty comfortable. EXTREMITIES: Examination of the right leg reveals the dressing to be clean, dry and intact. She can dorsiflex and plantarflex her foot appropriately. She still struggles doing a straight leg raise. She is neurologically intact. LABORATORY DATA: Hemoglobin 8.3. Hematocrit 25.6. Electrolytes are stable. Culture results show a coag-negative methicillin-resistant staph. ASSESSMENT: A 71-year-old female now postoperative day 5 from removal of an infected knee replacemen t and placement of articulated spacer. Her cultures have grown out methicillin-resistant coagulase-n egative staphylococci on all occasions. She is on daptomycin, which is appropriate. We are just suresh coffey for placement. Unfortunately, her preference, which is [facility], will not take her with IV antib iotics. PLAN: 1. DVT prophylaxis includes thigh-high TEDs, SCDs, and she is back on her normal dose of anticoagula tion, which is Xarelto 20 mg a day. 2. PT/OT. She can weight bear as tolerated in the knee immobilizer. We are doing no knee range of motion for the first 2 weeks. She can weight bear as tolerated in the brace. Needs to have the brac e on when out of bed. 3. Medical management as per the medicine service. 4. Disposition: She is orthopedically okay for discharge any time we can find her a bed. We are st ruggling with finding a place to send her. She is going to need 6 weeks of IV antibiotics. Job ID: [id number]
--- NOTE | 2021-07-16 18:36 | Billing Data ---
Date of Service July 16, 2021 Coding Level of Care Code 62751 Subseq Hosp Care Lvl 2
[2021-07-16] MEDS: ATORVASTATIN 40 MG TAB PO SCH (19:46)
[2021-07-16] MEDS: SENNA 8.6 MG TAB PO SCH (19:48)
[2021-07-16] MEDS: CARBOHYDRATES FOR HYPOGLYCEMIA PO PRN (21:03)
[2021-07-16] MEDS ORDERED: INSULIN GLARGINE SOLOSTAR 100 UNITS/ML 3 ML PEN SQ SCH (21:30)
[2021-07-16] MEDS: MELATONIN 3 MG TAB PO PRN (21:57)
[2021-07-16] MEDS: HEPARIN 100 UNIT/ML 5ML FLUSH IV PRN (23:12)
[2021-07-17] MEDS: ACETAMINOPHEN 500 MG TAB PO SCH ×3 (06:11→21:03)
[2021-07-17] MEDS: LEVOTHYROXINE SODIUM 25 MCG TABLET PO SCH (06:12)
[2021-07-17] MEDS: ONDANSETRON INJ 2 MG/ML 2 ML VIAL IV PRN ×2 (07:15→12:34)
[2021-07-17] MEDS: oxyCODONE HCL IR 5 MG TAB (IMMEDIATE RELEASE) PO PRN ×2 (07:17→18:34)
--- NOTE | 2021-07-17 07:43 | Hospitalist Progress Note ---
Date of Service July 17, 2021 Assessment & Plan (1) Infected prosthetic knee joint: Plan: 71 yo F here for elective orthopedic admission for infected R knee prosthesis s/p R knee replacement with antibiotic spacer, POD4. (1) Infected prosthetic knee joint - BCx pending, wound Cx and synovial fluid Cx no growth at 24 hrs. Previous wound Cx from 04/2021 grew MRSE Joint fluid grew coag neg staph, sensitivities available - Low suspicion for endocarditis, may pursue echocardiogram if symptoms worsen/evolve or BCx positive - ortho consulted infected right total knee replacement 07/12, right leg immobilized in brace no ROM at this time DVT prophylaxis with alicia Romeo - Pain control per orthopedics: dilaudid, nuycenta, tylenol, oxycodone - started vancomycin, switched to daptomycin 07/13 - Continue PT/OT, patient actively participating in rehab though expresses pain during activity - Abx (4-6 weeks with long-term PO abx possibly bactrim afterward) to be delivered through A-Port from cancer instead of PICC, ok per orthopedics discussed if changing antibiotic regime will increase her chance for placement, will not change her placement probability. - pending SNF placement that will do IV abx Low Hbg -Hbg admit 10.6, decreased to 7.4 on 07/15 given 1U blood, currently at 8.3 -consent for blood transfusion, patient agreed (2) Atrial fibrillation: -Rate controlled with pacemaker, pacer MODE AAIR with mode switch to DDDR -Currently rate-controlled in 60s-70s, not sinus rhythm -Restarted home Xarelto prophylactic dose 10 mg, resumed 20 mg dose -Continue diltiazem (3) Infiltrating ductal carcinoma of left breast: -Continue home [facility]ociclib - [facility] to be used for abx per orthopedics (4) Diabetes mellitus type 2, uncontrolled: - On Trulicity and Glipizide at home - Pharmacy consult placed- follow for 24-48 hours with oral intake following surgery and infection - Novolog ISS, will resume basal later (5) Hypothyroidism: -Continue Synthroid- 25 mcg (6) Obstructive sleep apnea: -Does not use CPAP at home currently -Stable pulse ox, respiratory status at present (7) Chronic GERD: -Continue Protonix FENGI: carb consistent Code status: Full DVT ppx: Xarelto 20mg daily Isolation: None Dispo: Med/surg, discharge to rehab pending improvement (2) Aortic stenosis: (3) Breast cancer: (4) Arthritis: (5) Constipation: (6) Chronic GERD: (7) Gait disturbance: (8) Hypocalcemia: Admission and Anticipated Discharge Date Admission Date: July 13, 2021 Supervising Physician Co-Signing Physician Notes I personally examined the patient and verified all edwards points of history and exam, discussed case, and agree with decision making with Dr Holt no complaints, eating dinner vitals noted nad heent nc at mmm breathing unlabored no accessory muscles good effort skin no rashes no pallor or icterus 1. Infected prosthetic knee, right. S/p revision/spacer placement. Cultures without growth, but prior culture grew MRSE. Pain control with Tylenol. Now on dapto in the AM. Plan for 4-6 weeks of IV antibiotics followed by unit aid oral antibiotics. still awaiting SNF placement 2. chronic atrial fibrillation. rate controlled, anticoagulated 3. Anemia. transfused related to probable acute blood loss earlier in hospital stay, continue to follow 4. DM. basal bolus insulin. Glycemic consult. 5. Breast cancer. Continuing home Palbociclib. Other chronic issues are stable; home medications continued. Dispo: pending SNF placement Subjective Patient seen at bedside, calm comfortable cooperative. She states her pain is controlled while laying in bed, has difficulty with PT but cooperates with exercises. Patient is upset about her long hospital stay but says she's dealing with it. States she feels she does not need OT. Patient has no other concerns at this time. Review of Systems Review of Systems: Negative fever chills Negative headache dizziness Negative chest pain palpitations SOB Negative nausea vomitting diarrhea constipation Negative numbness tingling rash swelling Physical Exam Constitutional: WD/WN, vitals as above Eyes: PERRL, conjunctivae normal, anicteric sclerae ENMT: external ear and nose normal, oropharynx normal Neck: trachea midline, no thyromegaly Respiratory: normal respiratory effort, lungs clear to auscultation Cardiovascular: RRR, no murmur, no edema Chest (Breasts): Chest: normal inspection of chest Gastrointestinal (Abdomen): normal bowel sounds, soft, nontender, no hepatosplenomegaly Musculoskeletal: Extremities: + limited ROM of lower extremity (right leg in brace, scar stapled closed healing well) Right Skin: no rashes, warm and dry Results & Data Results & Data ([facility]) Vital Signs (Past 12 Hours) Vital Signs Temp Pulse Resp BP Pulse Ox 07/16/21 22:34 36.8 C 63 17 125/69 99 Resident Activity Tracking Resident Involvement: Resident Care Provided Care Provided: Adult [facility] Medicine (1) Breast cancer Breast location: unspecified site of breast Estrogen receptor status: unspecified Laterality: unspecified laterality Patient sex: female Qualified Code(s): C50.919 - Malignant neoplasm of unspecified site of unspecified female breast
[2021-07-17 07:49] LABS: Hematocrit (blood only) 25.8 % (37-47); Hemoglobin 8.6 g/dL (12.0-16.0); Mean Corpuscular Hemoglobin 31.4 pg (25-34); Mean Corpuscular Hgb Conc 33.3 g/dL (32-36); Mean Corpuscular Volume 94.2 fL (80-100); Mean Platelet Volume 10.1 fL (7.4-10.4); Platelet Count 212 K/uL (130-400); RDW Coefficient of Variation 18.5 % (11.5-14.5); RDW Standard Deviation 61.6 fL (36.4-46.3); Red Blood Count 2.74 M/uL (4.2-5.4); White Blood Count 1.94 K/uL (4.8-10.8)
[2021-07-17 08:10] LABS: BUN Creatinine Ratio 22.6 (10-20); Calcium 8.2 mg/dl (8.5-10.1); Creatinine Clr Calc Pharmacy 78.4 ml/min; Est GFR (African American) 103.7 ml/min; Est GFR (Non-African American) 89.5 ml/min
[2021-07-17] MEDS: INSULIN ASPART PER UNIT SC SCH ×4 (08:53→21:12)
[2021-07-17] MEDS: GABAPENTIN 600 MG TAB PO SCH ×2 (09:24→21:02)
[2021-07-17] MEDS: PANTOprazole 40 MG TAB PO SCH (09:25)
[2021-07-17] MEDS: FERROUS GLUCONATE 324 MG TAB PO SCH ×2 (09:25→17:56)
[2021-07-17] MEDS: lisinopril 10 MG TAB PO SCH (09:25)
[2021-07-17] MEDS: DOCUSATE SODIUM 100 MG CAP PO SCH ×2 (09:25→21:03)
[2021-07-17] MEDS: LETROZOLE 2.5 MG TAB PO SCH (09:26)
[2021-07-17] MEDS: dilTIAZem HCL 240 MG CAPCR PO SCH (09:26)
[2021-07-17] MEDS: THIAMINE HCL 100 MG TAB PO SCH (09:26)
[2021-07-17] MEDS: DULoxetine HCL 30 MG CAP PO SCH (09:26)
[2021-07-17] MEDS: ASCORBIC ACID 500 MG TAB PO SCH ×2 (09:27→17:55)
[2021-07-17] MEDS: CHOLECALCIFEROL 1,000 UNITS 25 MCG TAB PO SCH (09:27)
[2021-07-17] MEDS: MULTIVITAMIN TAB PO SCH (09:27)
[2021-07-17] MEDS: CALCIUM CARBONATE 1250MG TAB PO SCH (09:28)
[2021-07-17] MEDS: DULoxetine HCL 60 MG CAP PO SCH (09:28)
[2021-07-17] MEDS: RIVAROXABAN 20 MG TAB PO SCH (09:28)
[2021-07-17] MEDS: TAPENTADOL HCL ER 50 MG TABCR PO SCH ×2 (09:34→21:12)
[2021-07-17] MEDS: PALBOCICLIB 125 MG PO SCH (09:35)
--- NOTE | 2021-07-17 10:00 | Pharmacy Report ---
Pharmacy Glycemic Short Note 2 - Date of Service July 17, 2021 - Glycemic Short BSG Results (Last 24 hours): 07/16/21 07/16/21 07/16/21 12:10 17:09 20:58 Glucose POC Glucose 90 223 H 61 L* 07/16/21 07/16/21 07/17/21 21:00 21:19 06:55 Glucose 87 POC Glucose 63 L* 81 07/17/21 08:21 Glucose POC Glucose 95 OUTPATIENT ANTIDIABETIC REGIMEN: * Lantus 31 units SQ HS * Trulicity 3 mg SQ weekly on Fridays * Glipizide 5 mg PO AM * HbA1c = 6.8% (07/09/21) ASSESSMENT: 07/17: * Patient received a total of 28 units of insulin yesterday (16 units basal + 12 units bolus) * BSGs were 789-33-795-61 mg/dL. Asymptomatic hypoglycemia again at HS and required 15 g CHO to improve BSG to 81 mg/dL. * Lantus dose was reduced at time of hypoglycemia to 16 units. * Fasting BSG remains well controlled this AM at 95 mg/dL. * Will reduce Lantus further tonight. * Lunch BSG trended down to 77 mg/dL. * Will loosen Novolog further. 07/16: * Faith received a total of 34 units of insulin yesterday (20 units basal + 14 units bolus). * BSGs were 13-976-557-65 mg/dL. Asymptomatic with HS hypoglycemia but did require 15 g of CHO to improve BSG to 102 mg/dL. * Lantus dose was decreased and Novolog loosened at time of hypoglycemia last evening. * Fasting BSG was 121 mg/dL this AM - well controlled. * Will increase Lantus dose by 10% this AM as 20 units has been proven inadequate previously during this admission. * Continue with loosened Novolog parameters from last evening to prevent hypoglycemia. 07/15: * BSGs yesterday were 383-410-11-195 mg/dl. Patient received total 40 units of insulin yesterday of which 28 units were basal and 12 units bolus. * Patient was hypoglycemic early this AM with fasting BSG = 57 mg/dl. HS Lantus dose reduced to 24 units today. * Novolog CR was also loosened with breakfast this AM to prevent low BSG later today. PLAN FOR INPATIENT GLYCEMIC CONTROL: * Hold outpatient oral diabetes medications * Basal insulin - decreased * Lantus 12 units SQ HS * Bolus insulin - loosened * NovoLog per scale ACHS or Q6hrs while NPO * Goal Range: Low 110 mg/dL - High 140 mg/dL * Correction Factor: 50 mg/dL/unit * Nutritional / Prandial insulin per carb ratio of 1 unit per 20 grams CHO consumed PLAN FOR DISCHARGE: * A1c of 6.8% is at goal * Continue home regimen on discharge as long as patient denies frequent hypoglycemia
[2021-07-17] MEDS: LORazepam 0.5 MG TAB PO SCH (12:31)
--- NOTE | 2021-07-17 14:42 | Progress Notes ---
DATE OF SERVICE: 07/17/2021. SUBJECTIVE: A 71-year-old female, now 6 days out from a resection arthroplasty and placement of anti biotic spacer for an infected right knee replacement. She continues to have a moderate amount of sandeep n in her knee. It seems to be getting a little bit better daily. No new complaints. She is frustra alicia by the social situation and her inability to get into [facility]. OBJECTIVE: VITAL SIGNS: Temperature 37.0. Vital signs are stable. GENERAL: Shows a pleasant, elderly female. She is lying in bed and looks comfortable. EXTREMITIES: Examination of the right leg reveals the leg to be well aligned. Dressing is clean, dr y and intact. She can dorsiflex and plantarflex her foot appropriately. She cannot quite do a strai ght leg raise, but seems to be getting better. LABORATORY DATA: Hemoglobin is 8.6. Hematocrit 25.8. Electrolytes are stable. ASSESSMENT: A 71-year-old female, now 6 days out from removal of an infected knee replacement and pl acement of articulating antibiotic spacer. She is medically doing okay. The biggest issue is displa cement. She is pretty frustrated by this and understandably so. PLAN: 1. DVT prophylaxis includes thigh-high TEDs, SCDs and back on her normal dose of Xarelto. 2. PT/OT. She can fully weightbear as tolerated on the right leg. She does need to wear the knee i mmobilizer for the first 2 weeks. We are not doing any range of motion. 3. Pain control, doing okay with current pain regimen. 4. Medical management as per the medicine service. 5. Disposition: She is orthopedically okay for discharge any time. I need to see her back between 2 and 3 weeks postop. Any orthopedic questions can be directed to me at [phone]. Job ID: [id number]
[2021-07-17] MEDS: DAPTOmycin 300 MG in SYRINGE 0 ML IV SCH (17:52)
--- NOTE | 2021-07-17 18:27 | Billing Data ---
Date of Service July 17, 2021 Coding Level of Care Code 29235 Subseq Hosp Care Lvl 1
[2021-07-17] MEDS: ATORVASTATIN 40 MG TAB PO SCH (21:02)
[2021-07-17] MEDS: SENNA 8.6 MG TAB PO SCH (21:02)
[2021-07-17] MEDS: INSULIN GLARGINE SOLOSTAR 100 UNITS/ML 3 ML PEN SQ SCH (21:15)
[2021-07-17] MEDS: MELATONIN 3 MG TAB PO PRN (21:32)
[2021-07-18] MEDS: HYDROmorphone INJ 0.5 MG/0.5 ML SYR IV PRN ×2 (00:24→14:27)
[2021-07-18] MEDS: HEPARIN 100 UNIT/ML 5ML FLUSH IV PRN (00:25)
[2021-07-18] MEDS: ACETAMINOPHEN 500 MG TAB PO SCH ×3 (05:52→21:29)
[2021-07-18] MEDS: LEVOTHYROXINE SODIUM 25 MCG TABLET PO SCH (05:52)
--- NOTE | 2021-07-18 07:00 | Hospitalist Progress Note ---
Date of Service July 18, 2021 Assessment & Plan (1) Infected prosthetic knee joint: Plan: 71 yo F here for elective orthopedic admission for infected R knee prosthesis s/p R knee replacement with antibiotic spacer, POD6. (1) Infected prosthetic knee joint - BCx pending, wound Cx and synovial fluid Cx no growth at 24 hrs. Previous wound Cx from 04/2021 grew MRSE Joint fluid grew coag neg staph, sensitivities available - Low suspicion for endocarditis, may pursue echocardiogram if symptoms worsen/evolve or BCx positive - ortho consulted infected right total knee replacement 07/12, right leg immobilized in brace no ROM at this time DVT prophylaxis with alicia Romeo - Pain control per orthopedics: dilaudid, nuycenta, tylenol, oxycodone - started vancomycin, switched to daptomycin 07/13 - Continue PT/OT, patient actively participating in rehab though expresses pain during activity - Abx (4-6 weeks with long-term PO abx possibly bactrim afterward) to be delivered through A-Port from cancer instead of PICC, ok per orthopedics discussed if changing antibiotic regime will increase her chance for placement, will not change her placement probability. - pending SNF placement that will do IV abx patient patiently awaiting placement Low Hbg -Hbg admit 10.6, decreased to 7.4 on 07/15 given 1U blood, currently at 8.3 -consent for blood transfusion, patient agreed (2) Atrial fibrillation: -Rate controlled with pacemaker, pacer MODE AAIR with mode switch to DDDR -Currently rate-controlled in 60s-70s, not sinus rhythm -Restarted home Xarelto prophylactic dose 10 mg, resumed 20 mg dose -Continue diltiazem (3) Infiltrating ductal carcinoma of left breast: -Continue home Palbociclib - No acute needs - Mediport site stable and clean, A-Port to be used for abx per orthopedics (4) Diabetes mellitus type 2, uncontrolled: - On Trulicity and Glipizide at home - Pharmacy consult placed- follow for 24-48 hours with oral intake following surgery and infection - Novolog ISS, will resume basal later (5) Hypothyroidism: -Continue Synthroid- 25 mcg (6) Obstructive sleep apnea: -Does not use CPAP at home currently -Stable pulse ox, respiratory status at present (7) Chronic GERD: -Continue Protonix FENGI: carb consistent Code status: Full DVT ppx: Xarelto 20mg daily Isolation: None Dispo: Med/surg, discharge to rehab (2) Aortic stenosis: (3) Breast cancer: (4) Arthritis: (5) Constipation: (6) Chronic GERD: (7) Gait disturbance: (8) Hypocalcemia: Admission and Anticipated Discharge Date Admission Date: July 13, 2021 Supervising Physician Co-Signing Physician Notes I personally examined the patient and verified all edwards points of history and exam, discussed case, and agree with decision making with Dr Holt resting comfortably. sleeping. nursing notes no problems vitals noted resting comfortably nad breathing unlabored no accessory muscles good effort skin no rashes no pallor or icterus 1. Infected prosthetic knee, right. S/p revision/spacer placement. Cultures without growth, but prior culture grew MRSE. continue dapto for now. Plan for 4-6 weeks of IV antibiotics followed by [employer] oral antibiotics. still awaiting SNF placement 2. chronic atrial fibrillation. rate controlled, anticoagulated 3. Anemia. transfused related to probable acute blood loss earlier in hospital stay, continue to follow 4. DM. basal bolus insulin. continue management via glycemic consult. 5. Breast cancer. Continuing home Palbociclib. Other chronic issues are stable; home medications continued. Dispo: pending SNF placement Subjective Patient seen at bedside, calm comfortable cooperative. Sitting upright for breakfast. She states her pain is under control, understands finding placement is a long waiting process. She ate slept well normal bowel movements. States her grandchildren will visit this afternoon. No other complaints at this time. Review of Systems Review of Systems: Negative fever chills Negative headache dizziness Negative chest pain palpitations SOB Negative nausea vomitting diarrhea constipation Negative numbness tingling rash swelling Physical Exam Constitutional: WD/WN, vitals as above Eyes: PERRL, conjunctivae normal, anicteric sclerae ENMT: external ear and nose normal, oropharynx normal Neck: trachea midline, no thyromegaly Respiratory: normal respiratory effort, lungs clear to auscultation Cardiovascular: RRR, no murmur, no edema Chest (Breasts): Chest: normal inspection of chest Gastrointestinal (Abdomen): normal bowel sounds, soft, nontender, no hepatosplenomegaly Musculoskeletal: Extremities: + limited ROM of lower extremity (right leg in brace, scar stapled closed healing well) Right Skin: no rashes, warm and dry Results & Data Results & Data ([facility]) Vital Signs (Past 12 Hours) Vital Signs Temp Pulse Resp BP Pulse Ox 07/17/21 22:35 37 C 68 16 106/62 96 Resident Activity Tracking Resident Involvement: Resident Care Provided Care Provided: Adult [facility] Medicine (1) Breast cancer Breast location: unspecified site of breast Estrogen receptor status: unspecified Laterality: unspecified laterality Patient sex: female Qualified Code(s): C50.919 - Malignant neoplasm of unspecified site of unspecified female breast
[2021-07-18 07:03] LABS: Hematocrit (blood only) 27.2 % (37-47); Hemoglobin 8.8 g/dL (12.0-16.0); Mean Corpuscular Hemoglobin 30.3 pg (25-34); Mean Corpuscular Hgb Conc 32.4 g/dL (32-36); Mean Corpuscular Volume 93.8 fL (80-100); Mean Platelet Volume 10.5 fL (7.4-10.4); Platelet Count 206 K/uL (130-400); RDW Coefficient of Variation 18.2 % (11.5-14.5); RDW Standard Deviation 60.4 fL (36.4-46.3); White Blood Count 2.42 K/uL (4.8-10.8)
[2021-07-18 07:36] LABS: BUN Creatinine Ratio 20.3 (10-20); Creatinine Clr Calc Pharmacy 70.5 ml/min; Est GFR (African American) 100.1 ml/min; Est GFR (Non-African American) 86.4 ml/min; Potassium 4.1 mmol/L (3.5-5.1)
[2021-07-18] MEDS: oxyCODONE HCL IR 5 MG TAB (IMMEDIATE RELEASE) PO PRN ×2 (07:46→19:36)
[2021-07-18] MEDS: INSULIN ASPART PER UNIT SC SCH ×4 (08:54→21:24)
[2021-07-18] MEDS: DOCUSATE SODIUM 100 MG CAP PO SCH ×2 (09:43→21:29)
[2021-07-18] MEDS: THIAMINE HCL 100 MG TAB PO SCH (09:43)
[2021-07-18] MEDS: MULTIVITAMIN TAB PO SCH (09:43)
[2021-07-18] MEDS: CHOLECALCIFEROL 1,000 UNITS 25 MCG TAB PO SCH (09:43)
[2021-07-18] MEDS: PANTOprazole 40 MG TAB PO SCH (09:44)
[2021-07-18] MEDS: GABAPENTIN 600 MG TAB PO SCH ×2 (09:44→21:28)
[2021-07-18] MEDS: CALCIUM CARBONATE 1250MG TAB PO SCH (09:44)
[2021-07-18] MEDS: lisinopril 10 MG TAB PO SCH (09:45)
[2021-07-18] MEDS: DULoxetine HCL 30 MG CAP PO SCH (09:45)
[2021-07-18] MEDS: LETROZOLE 2.5 MG TAB PO SCH (09:46)
[2021-07-18] MEDS: DULoxetine HCL 60 MG CAP PO SCH (09:46)
[2021-07-18] MEDS: ASCORBIC ACID 500 MG TAB PO SCH ×2 (09:47→17:55)
[2021-07-18] MEDS: RIVAROXABAN 20 MG TAB PO SCH (09:47)
[2021-07-18] MEDS: dilTIAZem HCL 240 MG CAPCR PO SCH (09:47)
[2021-07-18] MEDS: FERROUS GLUCONATE 324 MG TAB PO SCH ×2 (09:48→17:55)
[2021-07-18] MEDS: LORazepam 0.5 MG TAB PO SCH (09:49)
[2021-07-18] MEDS: PALBOCICLIB 125 MG PO SCH (09:50)
[2021-07-18] MEDS: TAPENTADOL HCL ER 50 MG TABCR PO SCH ×2 (09:54→21:34)
--- NOTE | 2021-07-18 13:17 | Billing Data ---
Date of Service July 18, 2021 Coding Level of Care Code 58538 Subseq Hosp Care Lvl 1
--- NOTE | 2021-07-18 15:28 | Progress Notes ---
DATE OF SERVICE: 07/18/2021. SUBJECTIVE: A 71-year-old female now 1 week out from removal of an infected knee and placement of an tibiotic spacer. Seems to doing a little bit better. Pain is improving. She is just really waiting for placement. OBJECTIVE: VITAL SIGNS: Temperature 36.8. Vital signs are stable. GENERAL: Shows a pleasant, elderly female. She is sitting up in bed, looks quite comfortable. EXTREMITIES: Examination of the right leg reveals the leg to be well aligned. Her dressing is clean , dry and intact. The knee immobilizer is in place. She can now do a straight leg raise. LABORATORY DATA: Hemoglobin 8.8. Hematocrit 27.2. Electrolytes are stable. ASSESSMENT: A 71-year-old female now a week out from removal of an infected knee and placement of an articulated antibiotic spacer. She is getting a little bit better slowly. She is orthopedically an d medically stable. Just waiting for disposition. She really had a lot of falls, even before the frankie griselda, so I am concerned about her being discharged to home and I think she would benefit from a rehab /longterm facility for a while. PLAN: 1. DVT prophylaxis includes thigh-high TEDs, SCDs, and she is back on her Xarelto at a normal dose. 2. PT/OT. She can weight bear as tolerated in the knee immobilizer. We are not doing any knee rang e of motion currently. She can work on straight leg raises. 3. Pain control, seems to be doing okay with current pain regimen. She does not seem particularly u ncomfortable despite saying it hurts. 4. Disposition: She is orthopedically okay for discharge. I need to see her back two to three week s out from surgery date. Job ID: [id number]
[2021-07-18] MEDS: DICLOFENAC SOD 1% GEL 100 GM TUBE EXT SCH ×2 (15:34→21:30)
[2021-07-18] MEDS: DAPTOmycin 300 MG in SYRINGE 0 ML IV SCH (17:52)
[2021-07-18] MEDS: INSULIN GLARGINE SOLOSTAR 100 UNITS/ML 3 ML PEN SQ SCH (21:24)
[2021-07-18] MEDS: ATORVASTATIN 40 MG TAB PO SCH (21:28)
[2021-07-18] MEDS: SENNA 8.6 MG TAB PO SCH (21:29)
[2021-07-18] MEDS: MELATONIN 3 MG TAB PO PRN (21:36)
[2021-07-19 06:09] LABS: Hematocrit (blood only) 26.9 % (37-47); Hemoglobin 8.5 g/dL (12.0-16.0); Mean Corpuscular Hgb Conc 31.6 g/dL (32-36); Mean Corpuscular Volume 95.1 fL (80-100); Mean Platelet Volume 10.7 fL (7.4-10.4); Platelet Count 188 K/uL (130-400); RDW Coefficient of Variation 18.3 % (11.5-14.5); RDW Standard Deviation 60.2 fL (36.4-46.3); Red Blood Count 2.83 M/uL (4.2-5.4); White Blood Count 2.24 K/uL (4.8-10.8)
[2021-07-19] MEDS: ACETAMINOPHEN 500 MG TAB PO SCH ×3 (06:31→21:00)
[2021-07-19] MEDS: LEVOTHYROXINE SODIUM 25 MCG TABLET PO SCH (06:31)
--- NOTE | 2021-07-19 07:22 | Hospitalist Progress Note ---
Date of Service July 19, 2021 Assessment & Plan (1) Infected prosthetic knee joint: Plan: 71 yo F here for elective orthopedic admission for infected R knee prosthesis s/p R knee replacement with antibiotic spacer, POD7. (1) Infected prosthetic knee joint - BCx pending, wound Cx and synovial fluid Cx no growth at 24 hrs. Previous wound Cx from 04/2021 grew MRSE Joint fluid grew coag neg staph, sensitivities available - Low suspicion for endocarditis, may pursue echocardiogram if symptoms worsen/evolve or BCx positive - ortho consulted infected right total knee replacement 07/12, right leg immobilized in brace no ROM at this time DVT prophylaxis with SCDs, alicia singh - Pain control per orthopedics: dilaudid, nuycenta, tylenol, oxycodone added lidocaine patches, voltaren gel for pain control - started vancomycin, switched to daptomycin 07/13 - Continue PT/OT, patient actively participating in rehab though expresses pain during activity - Abx (4-6 weeks with long-term PO abx possibly bactrim afterward) to be delivered through A-Port from cancer instead of PICC, ok per orthopedics discussed if changing antibiotic regime will increase her chance for placement, will not change her placement probability. - pending SNF placement that will do IV abx patient patiently awaiting placement Low Hbg -Hbg admit 10.6, decreased to 7.4 on 07/15 given 1U blood, currently at 8.3 -consent for blood transfusion, patient agreed (2) Atrial fibrillation: -Rate controlled with pacemaker, pacer MODE AAIR with mode switch to DDDR -Currently rate-controlled in 60s-70s, not sinus rhythm -Restarted home Xarelto prophylactic dose 10 mg, resumed 20 mg dose -Continue diltiazem (3) Infiltrating ductal carcinoma of left breast: -Continue home Palbociclib - No acute needs - Mediport site stable and clean, A-Port to be used for abx per orthopedics (4) Diabetes mellitus type 2, uncontrolled: - On Trulicity and Glipizide at home - Pharmacy consult placed- follow for 24-48 hours with oral intake following surgery and infection - Novolog ISS, will resume basal later (5) Hypothyroidism: -Continue Synthroid- 25 mcg (6) Obstructive sleep apnea: -Does not use CPAP at home currently -Stable pulse ox, respiratory status at present (7) Chronic GERD: -Continue Protonix FENGI: carb consistent Code status: Full DVT ppx: Xarelto 20mg daily Isolation: None Dispo: Med/surg, discharge to rehab (2) Aortic stenosis: (3) Breast cancer: (4) Arthritis: (5) Constipation: (6) Chronic GERD: (7) Gait disturbance: (8) Hypocalcemia: Admission and Anticipated Discharge Date Admission Date: July 13, 2021 Supervising Physician Co-Signing Physician Notes I personally examined the patient and verified all edwards points of history and exam, discussed case, and agree with decision making with Dr Jonathon gordillo today. just waiting on placement vitals noted resting comfortably nad breathing unlabored no accessory muscles good effort skin no rashes no pallor or icterus 1. Infected prosthetic knee, right. S/p revision/spacer placement. Cultures without growth, but prior culture grew MRSE. continue dapto for now. On 4-6 weeks of IV antibiotics followed by senior living oral antibiotics. still awaiting SNF placement 2. chronic atrial fibrillation. rate remains controlled, anticoagulated 3. Anemia. transfused related to probable acute blood loss earlier in hospital stay, continue to follow 4. DM. basal bolus insulin. continue glycemic consult. 5. Breast cancer. Continuing home Palbociclib. Other chronic issues are stable; home medications continued. Dispo: pending SNF placement Subjective Patient seen at bedside, calm comfortable cooperative seated on chair. Patient states her knee pain is at 9/10, states her current pain regime is not enough to manage her pain, states she would like some ice for her knee. Patient apologizes for being a 'mean old lady', states the pain is contributing to her mood. She states her family visited her yesterday. Otherwise she states sleeping eating voiding well. She states per ortho she can have her leg out of brace when not moving, states she still should not bend her knee. Patient wonders when her rochelle will come out. Review of Systems Review of Systems: Negative fever chills Negative headache dizziness Negative chest pain palpitations SOB Negative nausea vomitting diarrhea constipation Negative numbness tingling rash swelling Physical Exam Constitutional: WD/WN, vitals as above Eyes: PERRL, conjunctivae normal, anicteric sclerae ENMT: external ear and nose normal, oropharynx normal Neck: trachea midline, no thyromegaly Respiratory: normal respiratory effort, lungs clear to auscultation Cardiovascular: RRR, no murmur, no edema Chest (Breasts): Chest: normal inspection of chest Gastrointestinal (Abdomen): normal bowel sounds, soft, nontender, no hepatosplenomegaly Musculoskeletal: Extremities: + limited ROM of lower extremity (right leg scar stapled closed healing well) Right Skin: no rashes, warm and dry Results & Data Results & Data ([facility]) Vital Signs (Past 12 Hours) Vital Signs Temp Pulse Resp BP Pulse Ox 07/18/21 21:45 36.8 C 64 16 128/73 97 Resident Activity Tracking Resident Involvement: Resident Care Provided Care Provided: Adult [facility] Medicine (1) Breast cancer Breast location: unspecified site of breast Estrogen receptor status: unspecified Laterality: unspecified laterality Patient sex: female Qualified Code(s): C50.919 - Malignant neoplasm of unspecified site of unspecified female breast
--- NOTE | 2021-07-19 07:58 | Progress Notes ---
DATE OF NOTE: 07/19/2021. SUBJECTIVE: A 71-year-old female, now 8 days out from right total knee replacement removal and place ment of an articulating antibiotic spacer. She is doing okay. No new complaints. Continues to have pain mostly with weightbearing. Not much pain while resting in bed. Just waiting to go to rehab or shelter facility. OBJECTIVE: VITAL SIGNS: Temperature 36.8. Vital signs are stable. GENERAL: Shows a pleasant, elderly female. I had to wake her this morning. EXTREMITIES: Examination of the right leg reveals incision to be clean, dry and intact. No drainage . She can do a straight leg raise today. Takes quite a bit of effort. She is neurologically intact . LABORATORY DATA: Hemoglobin 8.5. Hematocrit 26.9. ASSESSMENT: A 71-year-old female, now 8 days out from removal of an infected knee replacement and pl acement of antibiotic spacer. She is doing reasonably well. Just waiting for placement. She is goi ng to require 6 weeks of IV antibiotics. PLAN: 1. DVT prophylaxis includes thigh-high TEDs, SCDs, and she is back on her normal anticoagulation. 2. PT/OT. She can weight bear as tolerated in the knee immobilizer. We do not want to do any knee range of motion for the first 2 weeks. 3. Pain control, seems to be doing okay with current pain regimen. 4. IV antibiotics for 6 weeks, then probably switch to some p.o. depending on her sed rate and C-karen ctive protein. 5. Disposition: She is orthopedically okay for discharge any time. I need to see her somewhere calin funk 2 and 3 weeks postop. Any orthopedic questions can be directed to me at [phone]. Job ID: [id number]
[2021-07-19] MEDS: oxyCODONE HCL IR 5 MG TAB (IMMEDIATE RELEASE) PO PRN (08:40)
[2021-07-19] MEDS: DICLOFENAC SOD 1% GEL 100 GM TUBE EXT SCH ×4 (08:44→20:56)
[2021-07-19] MEDS: DULoxetine HCL 60 MG CAP PO SCH (08:45)
[2021-07-19] MEDS: lisinopril 10 MG TAB PO SCH (08:45)
[2021-07-19] MEDS: DOCUSATE SODIUM 100 MG CAP PO SCH ×2 (08:45→20:56)
[2021-07-19] MEDS: DULoxetine HCL 30 MG CAP PO SCH (08:45)
[2021-07-19] MEDS: CHOLECALCIFEROL 1,000 UNITS 25 MCG TAB PO SCH (08:45)
[2021-07-19] MEDS: THIAMINE HCL 100 MG TAB PO SCH (08:45)
[2021-07-19] MEDS: RIVAROXABAN 20 MG TAB PO SCH (08:45)
[2021-07-19] MEDS: PANTOprazole 40 MG TAB PO SCH (08:45)
[2021-07-19] MEDS: CALCIUM CARBONATE 1250MG TAB PO SCH (08:45)
[2021-07-19] MEDS: ASCORBIC ACID 500 MG TAB PO SCH ×2 (08:46→17:59)
[2021-07-19] MEDS: dilTIAZem HCL 240 MG CAPCR PO SCH (08:46)
[2021-07-19] MEDS: MULTIVITAMIN TAB PO SCH (08:46)
[2021-07-19] MEDS: LETROZOLE 2.5 MG TAB PO SCH (08:46)
[2021-07-19] MEDS: FERROUS GLUCONATE 324 MG TAB PO SCH ×2 (08:50→17:59)
[2021-07-19] MEDS: GABAPENTIN 600 MG TAB PO SCH ×2 (08:50→20:57)
[2021-07-19] MEDS: PALBOCICLIB 125 MG PO SCH (08:51)
[2021-07-19] MEDS: INSULIN ASPART PER UNIT SC SCH ×4 (08:52→21:12)
[2021-07-19] MEDS: LORazepam 0.5 MG TAB PO SCH (09:02)
[2021-07-19] MEDS: TAPENTADOL HCL ER 50 MG TABCR PO SCH ×2 (09:02→20:58)
[2021-07-19] MEDS: HEPARIN 100 UNIT/ML 5ML FLUSH IV PRN ×3 (09:45→17:59)
[2021-07-19] MEDS: LIDOCAINE 5% 1 PATCH TD SCH (12:52)
[2021-07-19] MEDS: HYDROmorphone INJ 0.5 MG/0.5 ML SYR IV PRN (13:03)
--- NOTE | 2021-07-19 13:14 | Billing Data ---
Date of Service July 19, 2021 Coding Level of Care Code 50006 Subseq Hosp Care Lvl 1
--- NOTE | 2021-07-19 15:20 | Pharmacy Report ---
Pharmacy Glycemic Short Note 2 - Date of Service July 19, 2021 - Glycemic Short BSG Results (Last 24 hours): 07/18/21 07/18/21 07/19/21 16:58 20:38 08:13 POC Glucose 131 H 148 H 119 H 07/19/21 11:59 POC Glucose 106 H OUTPATIENT ANTIDIABETIC REGIMEN: * Lantus 31 units SQ HS * Trulicity 3 mg SQ weekly on Fridays * Glipizide 5 mg PO AM * HbA1c = 6.8% (07/09/21) ASSESSMENT: 07/19: * Faith received total of 21 units of insulin yesterday; 12 units of basal + 9 units bolus. * BSGs yesterday were 493-431-363-148 mg/dl. Fasting BSG today was 119 mg/dl. No change in basal insulin. * Novolog parameters were loosened on 07/17 and this has worked well for Faith with no BSGs under 100 mg/dl all of yesterday. Continued the same today. 07/17: * Patient received a total of 28 units of insulin yesterday (16 units basal + 12 units bolus) * BSGs were 334-63-124-61 mg/dL. Asymptomatic hypoglycemia again at HS and required 15 g CHO to improve BSG to 81 mg/dL. * Lantus dose was reduced at time of hypoglycemia to 16 units. * Fasting BSG remains well controlled this AM at 95 mg/dL. * Will reduce Lantus further tonight. * Lunch BSG trended down to 77 mg/dL. * Will loosen Novolog further. 07/16: * Faith received a total of 34 units of insulin yesterday (20 units basal + 14 units bolus). * BSGs were 18-300-352-65 mg/dL. Asymptomatic with HS hypoglycemia but did require 15 g of CHO to improve BSG to 102 mg/dL. * Lantus dose was decreased and Novolog loosened at time of hypoglycemia last evening. * Fasting BSG was 121 mg/dL this AM - well controlled. * Will increase Lantus dose by 10% this AM as 20 units has been proven inadequate previously during this admission. * Continue with loosened Novolog parameters from last evening to prevent hypoglycemia. 07/15: * BSGs yesterday were 866-343-81-195 mg/dl. Patient received total 40 units of insulin yesterday of which 28 units were basal and 12 units bolus. * Patient was hypoglycemic early this AM with fasting BSG = 57 mg/dl. HS Lantus dose reduced to 24 units today. * Novolog CR was also loosened with breakfast this AM to prevent low BSG later today. PLAN FOR INPATIENT GLYCEMIC CONTROL: * Hold outpatient oral diabetes medications * Basal insulin - * Lantus 12 units SQ HS * Bolus insulin - * NovoLog per scale ACHS or Q6hrs while NPO * Goal Range: Low 110 mg/dL - High 140 mg/dL * Correction Factor: 50 mg/dL/unit * Nutritional / Prandial insulin per carb ratio of 1 unit per 15 grams CHO consumed PLAN FOR DISCHARGE: * A1c of 6.8% is at goal * Continue home regimen on discharge as long as patient denies frequent hypoglycemia
[2021-07-19] MEDS: DAPTOmycin 300 MG in SYRINGE 0 ML IV SCH (17:59)
[2021-07-19] MEDS: oxyCODONE HCL IR 5 MG TAB (IMMEDIATE RELEASE) PO SCH ×2 (17:59→23:53)
[2021-07-19] MEDS: ATORVASTATIN 40 MG TAB PO SCH (20:56)
[2021-07-19] MEDS: SENNA 8.6 MG TAB PO SCH (20:56)
[2021-07-19] MEDS: INSULIN GLARGINE SOLOSTAR 100 UNITS/ML 3 ML PEN SQ SCH (21:02)
[2021-07-20 05:44] LABS: Hemoglobin 8.2 g/dL (12.0-16.0); Mean Corpuscular Hemoglobin 30.8 pg (25-34); Mean Corpuscular Hgb Conc 32.8 g/dL (32-36); Mean Platelet Volume 10.7 fL (7.4-10.4); Platelet Count 171 K/uL (130-400); RDW Coefficient of Variation 18.4 % (11.5-14.5); RDW Standard Deviation 60.3 fL (36.4-46.3); Red Blood Count 2.66 M/uL (4.2-5.4); White Blood Count 2.19 K/uL (4.8-10.8)
[2021-07-20] MEDS: oxyCODONE HCL IR 5 MG TAB (IMMEDIATE RELEASE) PO SCH ×4 (05:49→22:59)
[2021-07-20] MEDS: LEVOTHYROXINE SODIUM 25 MCG TABLET PO SCH (05:50)
[2021-07-20] MEDS: ACETAMINOPHEN 500 MG TAB PO SCH ×3 (05:50→21:21)
--- NOTE | 2021-07-20 07:37 | Hospitalist Progress Note ---
Date of Service July 20, 2021 Assessment & Plan (1) Infected prosthetic knee joint: Plan: 71 yo F here for elective orthopedic admission for infected R knee prosthesis s/p R knee replacement with antibiotic spacer, POD8. (1) Infected prosthetic knee joint - BCx pending, wound Cx and synovial fluid Cx no growth at 24 hrs. Previous wound Cx from 04/2021 grew MRSE Joint fluid grew coag neg staph, sensitivities available - Low suspicion for endocarditis, may pursue echocardiogram if symptoms worsen/evolve or BCx positive - ortho consulted infected right total knee replacement 07/12, right leg immobilized in brace no ROM at this time DVT prophylaxis with SCDs, alicia hose - Pain control : oxycodone 5mg q6, duloxetine, tylenol, PRN dilaudid lidocaine patch voltaren gel - started vancomycin, switched to daptomycin 07/13 - Continue PT/OT, patient actively participating in rehab though expresses pain during activity - Abx (4-6 weeks with long-term PO abx possibly bactrim afterward) to be delivered through A-Port from cancer instead of PICC, ok per orthopedics discussed if changing antibiotic regime will increase her chance for placement, will not change her placement probability. - pending SNF placement that will do IV abx patient awaiting placement Low Hbg -Hbg admit 10.6, decreased to 7.4 on 07/15 given 1U blood, currently at 8.2 -consent for blood transfusion, patient agreed (2) Atrial fibrillation: -Rate controlled with pacemaker, pacer MODE AAIR with mode switch to DDDR -Currently rate-controlled in 60s-70s, not sinus rhythm -Restarted home Xarelto 20 mg dose -Continue diltiazem (3) Infiltrating ductal carcinoma of left breast: -Continue home Palbociclib - No acute needs - Mediport site stable and clean, A-Port to be used for abx per orthopedics (4) Diabetes mellitus type 2, uncontrolled: - On Trulicity and Glipizide at home - Pharmacy consult placed- follow for 24-48 hours with oral intake following surgery and infection - Novolog ISS, will resume basal later (5) Hypothyroidism: -Continue Synthroid- 25 mcg (6) Obstructive sleep apnea: -Does not use CPAP at home currently -Stable pulse ox, respiratory status at present (7) Chronic GERD: -Continue Protonix Hx Breast Cancer -continue Palbociclib FENGI: carb consistent Code status: Full DVT ppx: Xarelto 20mg daily Isolation: None Dispo: Med/surg, discharge to rehab (2) Aortic stenosis: (3) Breast cancer: (4) Arthritis: (5) Constipation: (6) Chronic GERD: (7) Gait disturbance: (8) Hypocalcemia: Admission and Anticipated Discharge Date Admission Date: July 13, 2021 Supervising Physician Co-Signing Physician Notes I personally examined the patient and verified all edwards points of history and exam, discussed case, and agree with decision making with Dr Holt sleeping comfortably. still waiting on placement - no new updates unfortunately. vitals noted resting comfortably nad breathing unlabored no accessory muscles good effort skin no rashes no pallor or icterus 1. Infected prosthetic knee, right. S/p revision/spacer placement. Cultures without growth, but prior culture grew MRSE. continue dapto for now. Continue 4-6 weeks of IV antibiotics followed by custodial oral antibiotics. still awaiting SNF placement 2. chronic atrial fibrillation. rate remains controlled, anticoagulated 3. Anemia. transfused related to probable acute blood loss earlier in hospital stay, continue to follow 4. DM. basal bolus insulin. continue glycemic consult. 5. Breast cancer. Continuing home Palbociclib. Other chronic issues are stable; home medications continued. Dispo: pending SNF placement Subjective Patient seen at bedside, calm cooperative comfortable. She states her new pain medication regime is much better at controlling her pain, she is laughing with the nurses and is feeling much better. States she feels more able to participate in physical therapy. Patient states she slept ate well voiding normally, no concerns at this time. Review of Systems Review of Systems: Negative fever chills Negative headache dizziness Negative chest pain palpitations SOB Negative nausea vomitting diarrhea constipation Negative numbness tingling rash swelling Physical Exam Constitutional: WD/WN, vitals as above Eyes: PERRL, conjunctivae normal, anicteric sclerae ENMT: external ear and nose normal, oropharynx normal Neck: trachea midline, no thyromegaly Respiratory: normal respiratory effort, lungs clear to auscultation Cardiovascular: RRR, no murmur, no edema Chest (Breasts): Chest: normal inspection of chest Gastrointestinal (Abdomen): normal bowel sounds, soft, nontender, no hepatosplenomegaly Musculoskeletal: Extremities: + limited ROM of lower extremity (right leg scar stapled closed healing well) Right Skin: no rashes, warm and dry Results & Data Results & Data ([facility]) Vital Signs (Past 12 Hours) Vital Signs Temp Pulse Resp BP Pulse Ox 07/20/21 07:17 36.8 C 65 16 126/68 98 07/19/21 21:17 37 C 69 18 138/70 99 Resident Activity Tracking Resident Involvement: Resident Care Provided Care Provided: Adult [facility] Medicine (1) Breast cancer Breast location: unspecified site of breast Estrogen receptor status: unspecified Laterality: unspecified laterality Patient sex: female Qualified Code(s): C50.919 - Malignant neoplasm of unspecified site of unspecified female breast
[2021-07-20] MEDS: MULTIVITAMIN TAB PO SCH (08:30)
[2021-07-20] MEDS: PANTOprazole 40 MG TAB PO SCH (08:30)
[2021-07-20] MEDS: GABAPENTIN 600 MG TAB PO SCH ×2 (08:30→20:33)
[2021-07-20] MEDS: DULoxetine HCL 30 MG CAP PO SCH (08:30)
[2021-07-20] MEDS: lisinopril 10 MG TAB PO SCH (08:30)
[2021-07-20] MEDS: ASCORBIC ACID 500 MG TAB PO SCH ×2 (08:30→17:06)
[2021-07-20] MEDS: DULoxetine HCL 60 MG CAP PO SCH (08:30)
[2021-07-20] MEDS: THIAMINE HCL 100 MG TAB PO SCH (08:30)
[2021-07-20] MEDS: FERROUS GLUCONATE 324 MG TAB PO SCH ×2 (08:31→17:07)
[2021-07-20] MEDS: CHOLECALCIFEROL 1,000 UNITS 25 MCG TAB PO SCH (08:31)
[2021-07-20] MEDS: LIDOCAINE 5% 1 PATCH TD SCH (08:31)
[2021-07-20] MEDS: DOCUSATE SODIUM 100 MG CAP PO SCH ×2 (08:31→20:33)
[2021-07-20] MEDS: DICLOFENAC SOD 1% GEL 100 GM TUBE EXT SCH ×4 (08:31→20:33)
[2021-07-20] MEDS: CALCIUM CARBONATE 1250MG TAB PO SCH (08:31)
[2021-07-20] MEDS: dilTIAZem HCL 240 MG CAPCR PO SCH (08:31)
[2021-07-20] MEDS: RIVAROXABAN 20 MG TAB PO SCH (08:32)
[2021-07-20] MEDS: PALBOCICLIB 125 MG PO SCH (08:32)
[2021-07-20] MEDS: LETROZOLE 2.5 MG TAB PO SCH (08:52)
[2021-07-20] MEDS: INSULIN ASPART PER UNIT SC SCH ×4 (08:53→20:52)
[2021-07-20] MEDS: LORazepam 0.5 MG TAB PO SCH (09:09)
[2021-07-20] MEDS: TAPENTADOL HCL ER 50 MG TABCR PO SCH ×2 (09:09→20:34)
--- NOTE | 2021-07-20 13:48 | Progress Notes ---
DATE OF SERVICE: 07/20/2021. SUBJECTIVE: A 71-year-old female, now 9 days out from a right revision/removal of an infected knee p rosthesis and placement of spacer. She seems to be doing okay. Complains of some pain with weightbe aring, but that is really mostly it. She looks comfortable. No chest pain or shortness of breath. Still frustrated by her social situation and inability to get out of the hospital. OBJECTIVE: VITAL SIGNS: Temperature 36.8. Vital signs are stable. PHYSICAL EXAMINATION: GENERAL: Shows a pleasant, elderly female. She is sitting up in bed and looks quite comfortable. EXTREMITIES: Examination of the right leg reveals a knee immobilizer in place. She can dorsiflex an d plantarflex her foot appropriately. She is neurologically intact. LABORATORY DATA: Hemoglobin 8.2. Hematocrit 25.0. ASSESSMENT: A 71-year-old female, now 9 days out from resection arthroplasty and placement of an art iculating antibiotic spacer, doing reasonably well. She is chronically anemic, but stable. She is n eurologically intact. PLAN: 1. DVT prophylaxis includes thigh-high TEDs, SCDs, and she is back on her normal anticoagulation. 2. PT/OT. She can weight bear as tolerated in the knee immobilizer. No knee range of motion. 3. Pain control. Doing okay with current pain regimen. 4. Medical management as per the medicine service. 5. Infection. She needs 6 weeks of IV antibiotics followed by probably some Bactrim. 6. Disposition: She is orthopedically okay for discharge any time they can find a place for her to go facility [facility]. I need to see her back in 2-3 weeks out from surgery date. Any orthopedic questio ns can be directed to me at [phone]. Job ID: [id number]
[2021-07-20] MEDS: HYDROmorphone INJ 0.5 MG/0.5 ML SYR IV PRN (15:21)
[2021-07-20] MEDS: HEPARIN 100 UNIT/ML 5ML FLUSH IV PRN ×2 (15:22→17:08)
[2021-07-20] MEDS: DAPTOmycin 300 MG in SYRINGE 0 ML IV SCH (17:08)
--- NOTE | 2021-07-20 18:38 | Billing Data ---
Date of Service July 20, 2021 Coding Level of Care Code 92113 Subseq Hosp Care Lvl 1
[2021-07-20] MEDS: ATORVASTATIN 40 MG TAB PO SCH (20:33)
[2021-07-20] MEDS: SENNA 8.6 MG TAB PO SCH (20:34)
[2021-07-20] MEDS: INSULIN GLARGINE SOLOSTAR 100 UNITS/ML 3 ML PEN SQ SCH (20:36)
[2021-07-20] MEDS: MELATONIN 3 MG TAB PO PRN (22:16)
[2021-07-21] MEDS: oxyCODONE HCL IR 5 MG TAB (IMMEDIATE RELEASE) PO SCH ×3 (05:44→18:03)
[2021-07-21] MEDS: LEVOTHYROXINE SODIUM 25 MCG TABLET PO SCH (05:44)
[2021-07-21] MEDS: ACETAMINOPHEN 500 MG TAB PO SCH ×3 (05:44→21:04)
[2021-07-21 05:58] LABS: Basophils # (auto) 0.05 K/uL (0-0.2); Basophils % (auto) 2.1 %; Eosinophils # (auto) 0.05 K/uL (0-0.5); Eosinophils % (auto) 2.1 %; Hematocrit (blood only) 27.6 % (37-47); Hemoglobin 8.5 g/dL (12.0-16.0); Lymphocytes % (auto) 37.3 %; Mean Corpuscular Hemoglobin 29.3 pg (25-34); Mean Corpuscular Hgb Conc 30.8 g/dL (32-36); Mean Corpuscular Volume 95.2 fL (80-100); Mean Platelet Volume 11.2 fL (7.4-10.4); Monocytes # (auto) 0.26 K/uL (0.11-0.59); Monocytes % (auto) 10.8 %; Neutrophils # (auto) 1.15 K/uL (1.4-6.5); Neutrophils % (auto) 47.7 %; Platelet Count 184 K/uL (130-400); RDW Coefficient of Variation 18.5 % (11.5-14.5); RDW Standard Deviation 61.2 fL (36.4-46.3); White Blood Count 2.41 K/uL (4.8-10.8)
[2021-07-21 06:22] LABS: Calcium 8.2 mg/dl (8.5-10.1); Creatinine Clr Calc Pharmacy 81.1 ml/min; Est GFR (African American) 104.8 ml/min; Est GFR (Non-African American) 90.4 ml/min; Potassium 3.9 mmol/L (3.5-5.1)
--- NOTE | 2021-07-21 07:21 | Orthopedic Progress Note ---
Date of Service July 21, 2021 Assessment & Plan (1) Infected prosthetic knee joint: We are still waiting for bed placement. She can be weightbearing as tolerated with the knee immobilizer in place. She is on Xarelto for DVT prophylaxis as well as CECELIA hose stockings and SCDs. She is currently on IV daptomycin. She will likely require 6 weeks of IV daptomycin from the day of surgery. She is orthopedically stable for discharge when a bed becomes available. She is to follow-up with orthopedics in 2 to 3 weeks from the date of surgery. Nichole Cuevas was seen and examined at bedside this morning. Overall she is doing fairly well. She was sitting in a chair at bedside I came in the room. She is having a little bit of soreness in the right knee but is not too bad. She is in good spirits. She is little bit frustrated that she has not been able to find a place in a rehab facility yet. She is currently on the IV antibiotics and has no new complaints. Review of Systems All systems reviewed & are unremarkable except as noted in HPI & below. Physical Exam On physical examination of the right leg, the dressing is clean and dry and the knee immobilizer is in place. She has active dorsiflexion plantarflexion of her right ankle. Results & Data Results & Data Laboratory Results . Diagnostic Findings . PG Care Time/CCT Total # of Minutes Spent Total Time Spent with Patient: Total time spent is greater than 50% in coordination of care (as documented) at patient's floor/unit and/or counseling patient: Coding Level of Care Code 89276 Post Operative Follow-Up Diagnoses Infected prosthetic knee joint T84.59XA; Z96.659
[2021-07-21] MEDS: HEPARIN 100 UNIT/ML 5ML FLUSH IV PRN (07:54)
[2021-07-21] MEDS: HYDROmorphone INJ 0.5 MG/0.5 ML SYR IV PRN (07:54)
[2021-07-21] MEDS: PANTOprazole 40 MG TAB PO SCH (08:57)
[2021-07-21] MEDS: FERROUS GLUCONATE 324 MG TAB PO SCH ×2 (08:57→16:50)
[2021-07-21] MEDS: CHOLECALCIFEROL 1,000 UNITS 25 MCG TAB PO SCH (08:57)
[2021-07-21] MEDS: GABAPENTIN 600 MG TAB PO SCH (08:58)
[2021-07-21] MEDS: lisinopril 10 MG TAB PO SCH (08:58)
[2021-07-21] MEDS: DOCUSATE SODIUM 100 MG CAP PO SCH ×2 (08:58→20:51)
[2021-07-21] MEDS: LETROZOLE 2.5 MG TAB PO SCH (08:58)
[2021-07-21] MEDS: DULoxetine HCL 30 MG CAP PO SCH (08:58)
[2021-07-21] MEDS: CALCIUM CARBONATE 1250MG TAB PO SCH (08:58)
[2021-07-21] MEDS: ASCORBIC ACID 500 MG TAB PO SCH ×2 (08:59→16:50)
[2021-07-21] MEDS: THIAMINE HCL 100 MG TAB PO SCH (09:01)
[2021-07-21] MEDS: MULTIVITAMIN TAB PO SCH (09:01)
[2021-07-21] MEDS: RIVAROXABAN 20 MG TAB PO SCH (09:01)
[2021-07-21] MEDS: LIDOCAINE 5% 1 PATCH TD SCH (09:02)
[2021-07-21] MEDS: DULoxetine HCL 60 MG CAP PO SCH (09:02)
[2021-07-21] MEDS: DICLOFENAC SOD 1% GEL 100 GM TUBE EXT SCH ×4 (09:03→20:51)
[2021-07-21] MEDS: TAPENTADOL HCL ER 50 MG TABCR PO SCH ×2 (09:05→20:50)
[2021-07-21] MEDS: LORazepam 0.5 MG TAB PO SCH (09:05)
--- NOTE | 2021-07-21 09:08 | Pharmacy Report ---
Pharmacy Glycemic Short Note 2 - Date of Service July 21, 2021 - Glycemic Short BSG Results (Last 24 hours): 07/20/21 07/20/21 07/20/21 12:01 17:17 20:20 Glucose POC Glucose 140 H 112 H 165 H 07/21/21 07/21/21 05:24 08:19 Glucose 112 H POC Glucose 146 H OUTPATIENT ANTIDIABETIC REGIMEN: * Lantus 31 units SQ HS * Trulicity 3 mg SQ weekly on Fridays * Glipizide 5 mg PO AM * HbA1c = 6.8% (07/09/21) ASSESSMENT: 07/21/21 * Patient's BSGs yesterday were [phone] mg/dL. Fasting today is 146 mg/dL. * Continue Lantus as fastings are steady. * Continue Novolog as BSGs steady throughout day and only 1 BSG above goal. 07/19: * Faith received total of 21 units of insulin yesterday; 12 units of basal + 9 units bolus. * BSGs yesterday were [phone] mg/dl. Fasting BSG today was 119 mg/dl. No change in basal insulin. * Novolog parameters were loosened on 07/17 and this has worked well for Faith with no BSGs under 100 mg/dl all of yesterday. Continued the same today. 07/17: * Patient received a total of 28 units of insulin yesterday (16 units basal + 12 units bolus) * BSGs were 321-12-189-61 mg/dL. Asymptomatic hypoglycemia again at HS and required 15 g CHO to improve BSG to 81 mg/dL. * Lantus dose was reduced at time of hypoglycemia to 16 units. * Fasting BSG remains well controlled this AM at 95 mg/dL. * Will reduce Lantus further tonight. * Lunch BSG trended down to 77 mg/dL. * Will loosen Novolog further. PLAN FOR INPATIENT GLYCEMIC CONTROL: * Hold outpatient oral diabetes medications * Basal insulin - * Lantus 12 units SQ HS * Bolus insulin - * NovoLog per scale ACHS or Q6hrs while NPO * Goal Range: Low 110 mg/dL - High 140 mg/dL * Correction Factor: 50 mg/dL/unit * Nutritional / Prandial insulin per carb ratio of 1 unit per 15 grams CHO consumed
[2021-07-21] MEDS: dilTIAZem HCL 240 MG CAPCR PO SCH (09:09)
[2021-07-21] MEDS: PALBOCICLIB 125 MG PO SCH (09:14)
[2021-07-21] MEDS: INSULIN ASPART PER UNIT SC SCH ×4 (09:46→21:02)
--- NOTE | 2021-07-21 13:21 | Hospitalist Progress Note ---
Date of Service July 21, 2021 Assessment & Plan (1) Infected prosthetic knee joint: Plan: 71 yo F here for elective orthopedic admission for infected R knee prosthesis s/p R knee replacement with antibiotic spacer, POD8. (1) Infected prosthetic knee joint - BCx pending, wound Cx and synovial fluid Cx no growth at 24 hrs. Previous wound Cx from 04/2021 grew MRSE Joint fluid grew coag neg staph, sensitivities available - Low suspicion for endocarditis, may pursue echocardiogram if symptoms worsen/evolve or BCx positive - ortho consulted infected right total knee replacement 07/12, right leg immobilized in brace no ROM at this time DVT prophylaxis with SCDs, alicia hose - Pain control : oxycodone 5mg q6, duloxetine, tylenol, PRN dilaudid lidocaine patch voltaren gel - started vancomycin, switched to daptomycin 07/13 - Continue PT/OT, patient actively participating in rehab though expresses pain during activity - Abx (4-6 weeks with long-term PO abx possibly bactrim afterward) to be delivered through A-Port from cancer instead of PICC, ok per orthopedics discussed if changing antibiotic regime will increase her chance for placement, will not change her placement probability. - pending SNF placement that will do IV abx patient awaiting placement Low Hbg -Hbg admit 10.6, decreased to 7.4 on 07/15 given 1U blood, currently at 8.5 -consent for blood transfusion, patient agreed (2) Atrial fibrillation: -Rate controlled with pacemaker, pacer MODE AAIR with mode switch to DDDR -Currently rate-controlled in 60s-70s, not sinus rhythm -Restarted home Xarelto 20 mg dose -Continue diltiazem (3) Infiltrating ductal carcinoma of left breast: -Continue home Palbociclib - No acute needs - Mediport site stable and clean, A-Port to be used for abx per orthopedics (4) Diabetes mellitus type 2, uncontrolled: - On Trulicity and Glipizide at home - Pharmacy consult placed- follow for 24-48 hours with oral intake following surgery and infection - Novolog ISS, will resume basal later (5) Hypothyroidism: -Continue Synthroid- 25 mcg (6) Obstructive sleep apnea: -Does not use CPAP at home currently -Stable pulse ox, respiratory status at present (7) Chronic GERD: -Continue Protonix At this time her chronic medical conditions are well managed and do not require any further intervention from the hospitalist service. At this time we feel it is appropriate to sign off from this patient and refer management to the primary orthopedic team. Thank you for allowing us to participate in the patient's care. Hx Breast Cancer -continue Palbociclib FENGI: carb consistent Code status: Full DVT ppx: Xarelto 20mg daily Isolation: None Dispo: Med/surg, discharge to rehab (2) Aortic stenosis: (3) Breast cancer: (4) Arthritis: (5) Constipation: (6) Chronic GERD: (7) Gait disturbance: (8) Hypocalcemia: Admission and Anticipated Discharge Date Admission Date: July 13, 2021 Supervising Physician Co-Signing Physician Notes chart reviewed, case d/w Dr Mello. not seen today. medically has been stable for days now just pending placement. will sign off - available if assistance needed, thanks Subjective Patient seen at bedside this morning. Patient states that her leg is an 8 out of 10 in intensity for pain, however, she feels this is improved from yesterday. She states that a physical therapy does come by she is going to refused to do any of the standing exercises as she would like to give her leg to break as it is in a lot of pain. Otherwise has no complaints at this time. Review of Systems Review of Systems: All systems reviewed & are unremarkable except as noted in HPI & below Physical Exam Constitutional: WD/WN, vitals as above Eyes: PERRL, conjunctivae normal, anicteric sclerae ENMT: external ear and nose normal, oropharynx normal Neck: trachea midline, no thyromegaly Respiratory: normal respiratory effort, lungs clear to auscultation Cardiovascular: RRR, no murmur, no edema Gastrointestinal (Abdomen): normal bowel sounds, soft, nontender, no hepatosplenomegaly Musculoskeletal: Extremities: + limited ROM of lower extremity (right leg scar stapled closed healing well; leg is braced.) Right Skin: no rashes Results & Data Results & Data ([facility]) Vital Signs (Past 12 Hours) Vital Signs Temp Pulse Resp BP Pulse Ox 07/21/21 07:42 36.5 C 82 16 129/80 100 (1) Breast cancer Breast location: unspecified site of breast Estrogen receptor status: unspecified Laterality: unspecified laterality Patient sex: female Qualified Code(s): C50.919 - Malignant neoplasm of unspecified site of unspecified female breast
[2021-07-21] MEDS: DAPTOmycin 300 MG in SYRINGE 0 ML IV SCH (16:49)
[2021-07-21] MEDS: MELATONIN 3 MG TAB PO PRN (20:50)
[2021-07-21] MEDS: GABAPENTIN 300 MG CAP PO SCH (20:50)
[2021-07-21] MEDS: ATORVASTATIN 40 MG TAB PO SCH (20:50)
[2021-07-21] MEDS: SENNA 8.6 MG TAB PO SCH (20:51)
[2021-07-21] MEDS: INSULIN GLARGINE SOLOSTAR 100 UNITS/ML 3 ML PEN SQ SCH (20:54)
[2021-07-22] MEDS: oxyCODONE HCL IR 5 MG TAB (IMMEDIATE RELEASE) PO SCH ×5 (00:04→23:46)
[2021-07-22] MEDS: ACETAMINOPHEN 500 MG TAB PO SCH ×3 (05:55→21:59)
[2021-07-22] MEDS: LEVOTHYROXINE SODIUM 25 MCG TABLET PO SCH (05:56)
--- NOTE | 2021-07-22 07:27 | Orthopedic Progress Note ---
Date of Service July 22, 2021 Assessment & Plan (1) Infected prosthetic knee joint: She is doing about as well as expected. She is having some soreness in her right leg. She is wearing the knee immobilizer. She can be weightbearing as tolerated in the knee immobilizer. She is on Xarelto for DVT prophylaxis and on daptomycin for antibiotic coverage. She is currently awaiting placement at a rehab facility. Nichole Cuevas was seen and examined at bedside this morning. Overall she is doing fairly well. She had a little bit of soreness in the knee but is not too bad. Her status is unchanged from yesterday. Review of Systems All systems reviewed & are unremarkable except as noted in HPI & below. Physical Exam On physical examination of the right knee, the dressing is clean and dry. She has active dorsiflexion plantarflexion of her right ankle. The knee immobilizer is in place. Results & Data Results & Data Laboratory Results . Diagnostic Findings . PG Care Time/CCT Total # of Minutes Spent Total Time Spent with Patient: Total time spent is greater than 50% in coordination of care (as documented) at patient's floor/unit and/or counseling patient: Coding Level of Care Code 62532 Post Operative Follow-Up Diagnoses Infected prosthetic knee joint T84.59XA; Z96.659
[2021-07-22] MEDS: GABAPENTIN 300 MG CAP PO SCH ×2 (08:29→20:48)
[2021-07-22] MEDS: dilTIAZem HCL 240 MG CAPCR PO SCH (08:29)
[2021-07-22] MEDS: CALCIUM CARBONATE 1250MG TAB PO SCH (08:29)
[2021-07-22] MEDS: THIAMINE HCL 100 MG TAB PO SCH (08:29)
[2021-07-22] MEDS: DULoxetine HCL 30 MG CAP PO SCH (08:29)
[2021-07-22] MEDS: DOCUSATE SODIUM 100 MG CAP PO SCH ×2 (08:30→20:48)
[2021-07-22] MEDS: MULTIVITAMIN TAB PO SCH (08:30)
[2021-07-22] MEDS: ASCORBIC ACID 500 MG TAB PO SCH ×2 (08:30→17:53)
[2021-07-22] MEDS: CHOLECALCIFEROL 1,000 UNITS 25 MCG TAB PO SCH (08:30)
[2021-07-22] MEDS: LETROZOLE 2.5 MG TAB PO SCH (08:30)
[2021-07-22] MEDS: RIVAROXABAN 20 MG TAB PO SCH (08:31)
[2021-07-22] MEDS: DULoxetine HCL 60 MG CAP PO SCH (08:31)
[2021-07-22] MEDS: lisinopril 10 MG TAB PO SCH (08:31)
[2021-07-22] MEDS: FERROUS GLUCONATE 324 MG TAB PO SCH ×2 (08:31→17:53)
[2021-07-22] MEDS: PANTOprazole 40 MG TAB PO SCH (08:31)
[2021-07-22] MEDS: LIDOCAINE 5% 1 PATCH TD SCH (08:32)
[2021-07-22] MEDS: DICLOFENAC SOD 1% GEL 100 GM TUBE EXT SCH ×4 (08:32→20:47)
[2021-07-22] MEDS: PALBOCICLIB 125 MG PO SCH (08:33)
[2021-07-22] MEDS: HYDROmorphone INJ 0.5 MG/0.5 ML SYR IV PRN (08:40)
[2021-07-22] MEDS: TAPENTADOL HCL ER 50 MG TABCR PO SCH ×2 (08:40→20:47)
[2021-07-22] MEDS: LORazepam 0.5 MG TAB PO SCH (08:41)
[2021-07-22] MEDS: HEPARIN 100 UNIT/ML 5ML FLUSH IV PRN ×2 (08:41→21:59)
[2021-07-22] MEDS: INSULIN ASPART PER UNIT SC SCH ×4 (08:41→20:46)
[2021-07-22] MEDS: DAPTOmycin 300 MG in SYRINGE 0 ML IV SCH (17:52)
[2021-07-22] MEDS: INSULIN GLARGINE SOLOSTAR 100 UNITS/ML 3 ML PEN SQ SCH (20:47)
[2021-07-22] MEDS: SENNA 8.6 MG TAB PO SCH (20:48)
[2021-07-22] MEDS: ATORVASTATIN 40 MG TAB PO SCH (20:48)
[2021-07-22] MEDS: MELATONIN 3 MG TAB PO PRN (20:53)
[2021-07-23] MEDS: LEVOTHYROXINE SODIUM 25 MCG TABLET PO SCH (05:45)
[2021-07-23] MEDS: ACETAMINOPHEN 500 MG TAB PO SCH ×3 (05:45→22:15)
[2021-07-23] MEDS: oxyCODONE HCL IR 5 MG TAB (IMMEDIATE RELEASE) PO SCH ×4 (05:45→23:56)
[2021-07-23] MEDS: INSULIN ASPART PER UNIT SC SCH ×4 (08:30→20:51)
[2021-07-23] MEDS: LORazepam 0.5 MG TAB PO SCH (08:31)
[2021-07-23] MEDS: DICLOFENAC SOD 1% GEL 100 GM TUBE EXT SCH ×4 (08:31→20:28)
[2021-07-23] MEDS: ASCORBIC ACID 500 MG TAB PO SCH ×2 (08:31→17:49)
[2021-07-23] MEDS: TAPENTADOL HCL ER 50 MG TABCR PO SCH ×2 (08:31→20:49)
[2021-07-23] MEDS: LIDOCAINE 5% 1 PATCH TD SCH (08:31)
[2021-07-23] MEDS: lisinopril 10 MG TAB PO SCH (08:32)
[2021-07-23] MEDS: DOCUSATE SODIUM 100 MG CAP PO SCH ×2 (08:32→20:28)
[2021-07-23] MEDS: FERROUS GLUCONATE 324 MG TAB PO SCH ×2 (08:32→17:48)
[2021-07-23] MEDS: THIAMINE HCL 100 MG TAB PO SCH (08:32)
[2021-07-23] MEDS: LETROZOLE 2.5 MG TAB PO SCH (08:32)
[2021-07-23] MEDS: RIVAROXABAN 20 MG TAB PO SCH (08:32)
[2021-07-23] MEDS: GABAPENTIN 300 MG CAP PO SCH ×2 (08:32→20:28)
[2021-07-23] MEDS: DULoxetine HCL 60 MG CAP PO SCH (08:32)
[2021-07-23] MEDS: CHOLECALCIFEROL 1,000 UNITS 25 MCG TAB PO SCH (08:32)
[2021-07-23] MEDS: dilTIAZem HCL 240 MG CAPCR PO SCH (08:32)
[2021-07-23] MEDS: CALCIUM CARBONATE 1250MG TAB PO SCH (08:32)
[2021-07-23] MEDS: MULTIVITAMIN TAB PO SCH (08:32)
[2021-07-23] MEDS: PANTOprazole 40 MG TAB PO SCH (08:32)
[2021-07-23] MEDS: DULoxetine HCL 30 MG CAP PO SCH (08:32)
[2021-07-23] MEDS: PALBOCICLIB 125 MG PO SCH (08:33)
--- NOTE | 2021-07-23 10:45 | Pharmacy Report ---
Pharmacy Glycemic Short Note 2 - Date of Service July 23, 2021 - Glycemic Short BSG Results (Last 24 hours): 07/22/21 07/22/21 07/22/21 12:06 17:07 20:25 POC Glucose 96 229 H 238 H 07/23/21 08:08 POC Glucose 149 H OUTPATIENT ANTIDIABETIC REGIMEN: * Lantus 31 units SQ HS * Trulicity 3 mg SQ weekly on Fridays * Glipizide 5 mg PO AM * HbA1c = 6.8% (07/09/21) ASSESSMENT: 07/23/21: * BSGs inexplicably elevated yesterday, 216, 96, 229, and 238 mg/dL * Given previously well-controlled BSGs and patient's propensity for hypoglycemia, will plan to continue current regimen and closely monitor BSGs * Consider slight tightening of Novolog parameters tomorrow if persistent hyperglycemia * Will allow for increased dose of Lantus tonight if BSG greater than 200 mg/dL 07/21/21 * Patient's BSGs yesterday were [phone] mg/dL. Fasting today is 146 mg/dL. * Continue Lantus as fastings are steady. * Continue Novolog as BSGs steady throughout day and only 1 BSG above goal. 07/19: * Faith received total of 21 units of insulin yesterday; 12 units of basal + 9 units bolus. * BSGs yesterday were [phone] mg/dl. Fasting BSG today was 119 mg/dl. No change in basal insulin. * Novolog parameters were loosened on 07/17 and this has worked well for Faith with no BSGs under 100 mg/dl all of yesterday. Continued the same today. 07/17: * Patient received a total of 28 units of insulin yesterday (16 units basal + 12 units bolus) * BSGs were 894-24-394-61 mg/dL. Asymptomatic hypoglycemia again at HS and required 15 g CHO to improve BSG to 81 mg/dL. * Lantus dose was reduced at time of hypoglycemia to 16 units. * Fasting BSG remains well controlled this AM at 95 mg/dL. * Will reduce Lantus further tonight. * Lunch BSG trended down to 77 mg/dL. * Will loosen Novolog further. PLAN FOR INPATIENT GLYCEMIC CONTROL: * Hold outpatient oral diabetes medications * Basal insulin * Lantus 12-14 units SQ HS (see EHR for details) * Bolus insulin * NovoLog per scale ACHS or Q6hrs while NPO * Goal Range: Low 110 mg/dL - High 140 mg/dL * Correction Factor: 50 mg/dL/unit * Nutritional / Prandial insulin per carb ratio of 1 unit per 20 grams CHO consumed
[2021-07-23 11:13] LABS: Basophils # (auto) 0.04 K/uL (0-0.2); Eosinophils # (auto) 0.07 K/uL (0-0.5); Eosinophils % (auto) 1.7 %; Hematocrit (blood only) 29.2 % (37-47); Hemoglobin 9.4 g/dL (12.0-16.0); Lymphocytes # (auto) 1.42 K/uL (1.2-3.4); Lymphocytes % (auto) 34.5 %; Mean Corpuscular Hemoglobin 30.3 pg (25-34); Mean Corpuscular Hgb Conc 32.2 g/dL (32-36); Mean Corpuscular Volume 94.2 fL (80-100); Mean Platelet Volume 11.3 fL (7.4-10.4); Monocytes # (auto) 0.43 K/uL (0.11-0.59); Monocytes % (auto) 10.4 %; Neutrophils # (auto) 2.16 K/uL (1.4-6.5); Neutrophils % (auto) 52.4 %; Platelet Count 216 K/uL (130-400); RDW Standard Deviation 62.5 fL (36.4-46.3); White Blood Count 4.12 K/uL (4.8-10.8)
[2021-07-23 11:44] LABS: Albumin Globulin Ratio 1.1 (0.9-2); Albumin Level 3.4 gm/dl (3.4-5.0); BUN Creatinine Ratio 24.7 (10-20); Bilirubin,Total 0.3 mg/dl (0.2-1.0); Calcium 9.4 mg/dl (8.5-10.1); Creatinine Clr Calc Pharmacy 63.2 ml/min; Est GFR (African American) 88.8 ml/min; Est GFR (Non-African American) 76.6 ml/min; Globulin 3.1 gm/dl (2.5-4.0); Potassium 4.5 mmol/L (3.5-5.1); Total Protein 6.5 gm/dl (6.0-8.3)
--- NOTE | 2021-07-23 16:12 | Orthopedic Progress Note ---
Date of Service July 23, 2021 Assessment & Plan (1) Infected prosthetic knee joint: She is doing as well as expected with her right knee. She is on the IV daptomycin. She will be weightbearing as tolerated in the knee immobilizer. She is having a lot of pain so I gave her some IV hydromorphone every 4 hours as needed. I also spoke with her oncology team. She does need to resume her chemotherapy medications. I told him that she would likely be on long-term antibiotics and they understand that. She is currently awaiting bed availability at a rehab facility. Subjective Faith was seen and examined at bedside this morning. Overall her status is basically unchanged. She still having a lot of pain in her right leg. She did ask for some IV pain medications. I also spoke with her oncologist PA about resuming some of her chemotherapy treatment. Faith is still awaiting bed availability for discharge to a rehab facility. Review of Systems All systems reviewed & are unremarkable except as noted in HPI & below. Physical Exam Physical examination of the right leg, the knee immobilizer in place in place. She has active dorsiflexion plantarflexion of her right ankle.. Results & Data Results & Data Laboratory Results . Diagnostic Findings . PG Care Time/CCT Total # of Minutes Spent Total Time Spent with Patient: Total time spent is greater than 50% in coordination of care (as documented) at patient's floor/unit and/or counseling patient: Coding Level of Care Code 66536 Post Operative Follow-Up Diagnoses Infected prosthetic knee joint T84.59XA; Z96.659
[2021-07-23] MEDS: DAPTOmycin 300 MG in SYRINGE 0 ML IV SCH (17:47)
[2021-07-23] MEDS: HYDROmorphone INJ 0.5 MG/0.5 ML SYR IV PRN (20:25)
[2021-07-23] MEDS: SENNA 8.6 MG TAB PO SCH (20:28)
[2021-07-23] MEDS: ATORVASTATIN 40 MG TAB PO SCH (20:28)
[2021-07-23] MEDS: HEPARIN 100 UNIT/ML 5ML FLUSH IV PRN (20:49)
[2021-07-23] MEDS: INSULIN GLARGINE SOLOSTAR 100 UNITS/ML 3 ML PEN SQ SCH (20:51)
[2021-07-24] MEDS: HYDROmorphone INJ 0.5 MG/0.5 ML SYR IV PRN (01:22)
[2021-07-24] MEDS: HEPARIN 100 UNIT/ML 5ML FLUSH IV PRN ×4 (01:23→20:00)
[2021-07-24] MEDS: diphenhydrAMINE 50 MG/ML VIAL IV PRN ×3 (02:35→19:54)
[2021-07-24] MEDS: oxyCODONE HCL IR 5 MG TAB (IMMEDIATE RELEASE) PO SCH ×5 (05:44→19:55)
[2021-07-24] MEDS: LEVOTHYROXINE SODIUM 25 MCG TABLET PO SCH (05:45)
[2021-07-24] MEDS: ACETAMINOPHEN 500 MG TAB PO SCH ×3 (05:47→21:10)
--- NOTE | 2021-07-24 06:42 | Orthopedic Progress Note ---
Date of Service July 24, 2021 Assessment & Plan (1) Infected prosthetic knee joint: We will discontinue the Dilaudid and I changed her oxycodone to every 4 hours instead of every 6 hours. She says she is really struggling with the pain. She can be weightbearing as tolerated with a knee immobilizer in place. She is currently on IV daptomycin and awaiting placement at a rehab facility. Nichole Cuevas was seen and examined at bedside this morning. I gave her the hydromorphine yesterday per her request. That helps some with the pain but she is very itchy because of it. She has been scratching all night. She tried some Benadryl with minimal relief. Otherwise, her knee is doing okay. She had no acute events overnight. Review of Systems All systems reviewed & are unremarkable except as noted in HPI & below. Physical Exam On physical examination of the right knee, the dressing is clean and dry. She has a knee immobilizer in place. She has active dorsiflexion plantarflexion of her right ankle. Results & Data Results & Data Laboratory Results . Diagnostic Findings . PG Care Time/CCT Total # of Minutes Spent Total Time Spent with Patient: Total time spent is greater than 50% in coordination of care (as documented) at patient's floor/unit and/or counseling patient: Coding Level of Care Code 17001 Post Operative Follow-Up Diagnoses Infected prosthetic knee joint T84.59XA; Z96.659
[2021-07-24 08:43] LABS: Basophils # (auto) 0.02 K/uL (0-0.2); Basophils % (auto) 0.6 %; Eosinophils # (auto) 0.05 K/uL (0-0.5); Eosinophils % (auto) 1.4 %; Hematocrit (blood only) 26.8 % (37-47); Hemoglobin 8.8 g/dL (12.0-16.0); Lymphocytes # (auto) 0.76 K/uL (1.2-3.4); Lymphocytes % (auto) 21.3 %; Mean Corpuscular Hemoglobin 30.9 pg (25-34); Mean Corpuscular Hgb Conc 32.8 g/dL (32-36); Mean Platelet Volume 10.3 fL (7.4-10.4); Monocytes # (auto) 0.46 K/uL (0.11-0.59); Monocytes % (auto) 12.9 %; Neutrophils # (auto) 2.28 K/uL (1.4-6.5); Neutrophils % (auto) 63.8 %; Platelet Count 187 K/uL (130-400); RDW Coefficient of Variation 19.3 % (11.5-14.5); RDW Standard Deviation 63.4 fL (36.4-46.3); Red Blood Count 2.85 M/uL (4.2-5.4); White Blood Count 3.57 K/uL (4.8-10.8)
[2021-07-24] MEDS: INSULIN ASPART PER UNIT SC SCH ×4 (08:51→21:11)
[2021-07-24] MEDS: PALBOCICLIB 125 MG PO SCH (08:51)
[2021-07-24] MEDS: LORazepam 0.5 MG TAB PO SCH (08:52)
[2021-07-24] MEDS: LETROZOLE 2.5 MG TAB PO SCH (08:52)
[2021-07-24] MEDS: DOCUSATE SODIUM 100 MG CAP PO SCH ×2 (08:58→19:55)
[2021-07-24] MEDS: dilTIAZem HCL 240 MG CAPCR PO SCH (08:58)
[2021-07-24] MEDS: GABAPENTIN 300 MG CAP PO SCH ×2 (08:58→19:55)
[2021-07-24] MEDS: DULoxetine HCL 60 MG CAP PO SCH (08:58)
[2021-07-24] MEDS: RIVAROXABAN 20 MG TAB PO SCH (08:58)
[2021-07-24] MEDS: PANTOprazole 40 MG TAB PO SCH (08:58)
[2021-07-24] MEDS: FERROUS GLUCONATE 324 MG TAB PO SCH ×2 (08:58→16:06)
[2021-07-24] MEDS: lisinopril 10 MG TAB PO SCH (08:59)
[2021-07-24] MEDS: DULoxetine HCL 30 MG CAP PO SCH (08:59)
[2021-07-24] MEDS: ASCORBIC ACID 500 MG TAB PO SCH ×2 (08:59→16:06)
[2021-07-24] MEDS: MULTIVITAMIN TAB PO SCH (08:59)
[2021-07-24] MEDS: CHOLECALCIFEROL 1,000 UNITS 25 MCG TAB PO SCH (08:59)
[2021-07-24] MEDS: THIAMINE HCL 100 MG TAB PO SCH (08:59)
[2021-07-24] MEDS: CALCIUM CARBONATE 1250MG TAB PO SCH (08:59)
[2021-07-24] MEDS: LIDOCAINE 5% 1 PATCH TD SCH (09:00)
[2021-07-24] MEDS: DICLOFENAC SOD 1% GEL 100 GM TUBE EXT SCH ×4 (09:00→19:56)
[2021-07-24] MEDS: TAPENTADOL HCL ER 50 MG TABCR PO SCH ×2 (09:06→21:10)
[2021-07-24 09:10] LABS: Creatinine Clr Calc Pharmacy 71.5 ml/min; Est GFR (African American) 100.6 ml/min; Est GFR (Non-African American) 86.8 ml/min
[2021-07-24] MEDS: DAPTOmycin 300 MG in SYRINGE 0 ML IV SCH (16:06)
[2021-07-24] MEDS: ATORVASTATIN 40 MG TAB PO SCH (19:55)
[2021-07-24] MEDS: SENNA 8.6 MG TAB PO SCH (19:55)
[2021-07-24] MEDS: MELATONIN 3 MG TAB PO PRN (21:10)
[2021-07-24] MEDS: INSULIN GLARGINE SOLOSTAR 100 UNITS/ML 3 ML PEN SQ SCH (21:12)
[2021-07-25] MEDS: oxyCODONE HCL IR 5 MG TAB (IMMEDIATE RELEASE) PO SCH ×6 (00:10→21:01)
[2021-07-25] MEDS: ACETAMINOPHEN 500 MG TAB PO SCH ×3 (06:00→21:03)
[2021-07-25] MEDS: LEVOTHYROXINE SODIUM 25 MCG TABLET PO SCH (06:00)
--- NOTE | 2021-07-25 07:03 | Orthopedic Progress Note ---
Date of Service July 25, 2021 Assessment & Plan (1) Infected prosthetic knee joint: Overall she is doing fairly well. She is on IV daptomycin. She is on Xarelto for DVT prophylaxis. She is now 13 days out from her surgery. She can be weightbearing as tolerated in knee immobilizer. We are still awaiting placement. She is orthopedically stable for discharge when a bed becomes available. She will likely need 6 weeks of IV antibiotics. Nichole Cuevas was seen and examined at bedside this morning. Overall she is doing fairly well. She still having some pain in the knee. She is still having a lot of itching. She has been ambulating some in the knee immobilizer. She has no new complaints. Review of Systems All systems reviewed & are unremarkable except as noted in HPI & below. Physical Exam On physical examination of the right knee, the incision is clean and dry. She is active dorsiflexion plantarflexion of her right ankle. She is wearing her knee immobilizer as instructed.. Results & Data Results & Data Laboratory Results . Diagnostic Findings . PG Care Time/CCT Total # of Minutes Spent Total Time Spent with Patient: Total time spent is greater than 50% in coordination of care (as documented) at patient's floor/unit and/or counseling patient: Coding Level of Care Code 86224 Post Operative Follow-Up Diagnoses Infected prosthetic knee joint T84.59XA; Z96.659
[2021-07-25 08:09] LABS: Basophils # (auto) 0.01 K/uL (0-0.2); Basophils % (auto) 0.3 %; Eosinophils # (auto) 0.05 K/uL (0-0.5); Eosinophils % (auto) 1.3 %; Hematocrit (blood only) 28.3 % (37-47); Hemoglobin 9.1 g/dL (12.0-16.0); Lymphocytes # (auto) 0.85 K/uL (1.2-3.4); Lymphocytes % (auto) 22.7 %; Mean Corpuscular Hemoglobin 30.5 pg (25-34); Mean Corpuscular Hgb Conc 32.2 g/dL (32-36); Mean Platelet Volume 10.4 fL (7.4-10.4); Monocytes # (auto) 0.47 K/uL (0.11-0.59); Monocytes % (auto) 12.5 %; Neutrophils # (auto) 2.37 K/uL (1.4-6.5); Neutrophils % (auto) 63.2 %; Platelet Count 210 K/uL (130-400); RDW Coefficient of Variation 19.4 % (11.5-14.5); Red Blood Count 2.98 M/uL (4.2-5.4); White Blood Count 3.75 K/uL (4.8-10.8)
[2021-07-25] MEDS: ASCORBIC ACID 500 MG TAB PO SCH ×2 (08:19→17:57)
[2021-07-25] MEDS: FERROUS GLUCONATE 324 MG TAB PO SCH ×2 (08:20→18:01)
[2021-07-25] MEDS: CHOLECALCIFEROL 1,000 UNITS 25 MCG TAB PO SCH (08:21)
[2021-07-25] MEDS: CALCIUM CARBONATE 1250MG TAB PO SCH (08:21)
[2021-07-25] MEDS: DOCUSATE SODIUM 100 MG CAP PO SCH ×2 (08:22→21:00)
[2021-07-25] MEDS: dilTIAZem HCL 240 MG CAPCR PO SCH (08:22)
[2021-07-25] MEDS: GABAPENTIN 300 MG CAP PO SCH ×2 (08:23→21:02)
[2021-07-25] MEDS: LETROZOLE 2.5 MG TAB PO SCH (08:23)
[2021-07-25] MEDS: DULoxetine HCL 60 MG CAP PO SCH (08:23)
[2021-07-25] MEDS: MULTIVITAMIN TAB PO SCH (08:24)
[2021-07-25] MEDS: lisinopril 10 MG TAB PO SCH (08:24)
[2021-07-25] MEDS: PALBOCICLIB 125 MG PO SCH (08:26)
[2021-07-25] MEDS: RIVAROXABAN 20 MG TAB PO SCH (08:27)
[2021-07-25] MEDS: PANTOprazole 40 MG TAB PO SCH (08:27)
[2021-07-25] MEDS: THIAMINE HCL 100 MG TAB PO SCH (08:30)
[2021-07-25] MEDS: DICLOFENAC SOD 1% GEL 100 GM TUBE EXT SCH ×4 (08:36→21:01)
[2021-07-25] MEDS: LIDOCAINE 5% 1 PATCH TD SCH (08:37)
[2021-07-25] MEDS: DULoxetine HCL 30 MG CAP PO SCH (08:37)
[2021-07-25] MEDS: INSULIN ASPART PER UNIT SC SCH ×4 (08:45→21:04)
[2021-07-25] MEDS: LORazepam 0.5 MG TAB PO SCH (09:25)
[2021-07-25] MEDS: TAPENTADOL HCL ER 50 MG TABCR PO SCH (09:34)
[2021-07-25] MEDS: diphenhydrAMINE 50 MG/ML VIAL IV PRN (10:27)
--- NOTE | 2021-07-25 11:16 | Pharmacy Report ---
Pharmacy Glycemic Short Note 2 - Date of Service July 25, 2021 - Glycemic Short BSG Results (Last 24 hours): 07/24/21 07/24/21 07/24/21 12:07 16:42 20:55 POC Glucose 127 H 127 H 127 H 07/25/21 08:12 POC Glucose 91 OUTPATIENT ANTIDIABETIC REGIMEN: * Lantus 31 units SQ HS * Trulicity 3 mg SQ weekly on Fridays * Glipizide 5 mg PO AM * HbA1c = 6.8% (07/09/21) ASSESSMENT: 07/25/21: * Faith received 12 units of insulin yesterday with all BSGs at goal; 108, 127, 127, 127 mg/dL * Fasting BSG is trending downward. Will decrease Lantus (~16%). * Post prandial BSGs well controlled the past 48 hours - no change 07/23/21: * BSGs inexplicably elevated yesterday, 216, 96, 229, and 238 mg/dL * Given previously well-controlled BSGs and patient's propensity for hypoglycemia, will plan to continue current regimen and closely monitor BSGs * Consider slight tightening of Novolog parameters tomorrow if persistent hyperglycemia * Will allow for increased dose of Lantus tonight if BSG greater than 200 mg/dL 07/21/21 * Patient's BSGs yesterday were [phone] mg/dL. Fasting today is 146 mg/dL. * Continue Lantus as fastings are steady. * Continue Novolog as BSGs steady throughout day and only 1 BSG above goal. 07/19: * Faith received total of 21 units of insulin yesterday; 12 units of basal + 9 units bolus. * BSGs yesterday were [phone] mg/dl. Fasting BSG today was 119 mg/dl. No change in basal insulin. * Novolog parameters were loosened on 07/17 and this has worked well for Faith with no BSGs under 100 mg/dl all of yesterday. Continued the same today. 07/17: * Patient received a total of 28 units of insulin yesterday (16 units basal + 12 units bolus) * BSGs were 182-66-208-61 mg/dL. Asymptomatic hypoglycemia again at HS and required 15 g CHO to improve BSG to 81 mg/dL. * Lantus dose was reduced at time of hypoglycemia to 16 units. * Fasting BSG remains well controlled this AM at 95 mg/dL. * Will reduce Lantus further tonight. * Lunch BSG trended down to 77 mg/dL. * Will loosen Novolog further. PLAN FOR INPATIENT GLYCEMIC CONTROL: * Hold outpatient oral diabetes medications * Basal insulin - decrease * Lantus 10-12 units SQ HS (see EHR for details) * Bolus insulin * NovoLog per scale ACHS or Q6hrs while NPO * Goal Range: Low 110 mg/dL - High 140 mg/dL * Correction Factor: 50 mg/dL/unit * Nutritional / Prandial insulin per carb ratio of 1 unit per 20 grams CHO consumed
[2021-07-25] MEDS: DAPTOmycin 300 MG in SYRINGE 0 ML IV SCH (18:22)
[2021-07-25] MEDS: SENNA 8.6 MG TAB PO SCH (21:02)
[2021-07-25] MEDS: ATORVASTATIN 40 MG TAB PO SCH (21:03)
[2021-07-25] MEDS: INSULIN GLARGINE SOLOSTAR 100 UNITS/ML 3 ML PEN SQ SCH (21:04)
[2021-07-25] MEDS: MELATONIN 3 MG TAB PO PRN (21:11)
[2021-07-26] MEDS: oxyCODONE HCL IR 5 MG TAB (IMMEDIATE RELEASE) PO SCH ×7 (00:28→23:55)
[2021-07-26] MEDS: LEVOTHYROXINE SODIUM 25 MCG TABLET PO SCH (06:02)
[2021-07-26] MEDS: ACETAMINOPHEN 500 MG TAB PO SCH ×3 (06:02→20:44)
[2021-07-26 06:28] LABS: Basophils # (auto) 0.02 K/uL (0-0.2); Basophils % (auto) 0.6 %; Eosinophils # (auto) 0.06 K/uL (0-0.5); Eosinophils % (auto) 1.8 %; Hematocrit (blood only) 28.3 % (37-47); Hemoglobin 9.3 g/dL (12.0-16.0); Lymphocytes # (auto) 1.17 K/uL (1.2-3.4); Lymphocytes % (auto) 34.8 %; Mean Corpuscular Hemoglobin 30.8 pg (25-34); Mean Corpuscular Hgb Conc 32.9 g/dL (32-36); Mean Corpuscular Volume 93.7 fL (80-100); Mean Platelet Volume 10.5 fL (7.4-10.4); Monocytes # (auto) 0.43 K/uL (0.11-0.59); Monocytes % (auto) 12.8 %; Neutrophils # (auto) 1.68 K/uL (1.4-6.5); Platelet Count 240 K/uL (130-400); RDW Coefficient of Variation 19.7 % (11.5-14.5); RDW Standard Deviation 64.9 fL (36.4-46.3); Red Blood Count 3.02 M/uL (4.2-5.4); White Blood Count 3.36 K/uL (4.8-10.8)
[2021-07-26] MEDS: FERROUS GLUCONATE 324 MG TAB PO SCH ×2 (08:07→17:53)
[2021-07-26] MEDS: CALCIUM CARBONATE 1250MG TAB PO SCH (08:26)
[2021-07-26] MEDS: DICLOFENAC SOD 1% GEL 100 GM TUBE EXT SCH ×4 (08:28→20:41)
[2021-07-26] MEDS: CHOLECALCIFEROL 1,000 UNITS 25 MCG TAB PO SCH (08:28)
[2021-07-26] MEDS: dilTIAZem HCL 240 MG CAPCR PO SCH (08:29)
[2021-07-26] MEDS: DOCUSATE SODIUM 100 MG CAP PO SCH ×2 (08:30→20:43)
[2021-07-26] MEDS: DULoxetine HCL 60 MG CAP PO SCH (08:31)
[2021-07-26] MEDS: DULoxetine HCL 30 MG CAP PO SCH (08:31)
[2021-07-26] MEDS: GABAPENTIN 300 MG CAP PO SCH ×2 (08:32→20:43)
[2021-07-26] MEDS: lisinopril 10 MG TAB PO SCH (08:36)
[2021-07-26] MEDS: MULTIVITAMIN TAB PO SCH (08:37)
[2021-07-26] MEDS: PANTOprazole 40 MG TAB PO SCH (08:38)
[2021-07-26] MEDS: RIVAROXABAN 20 MG TAB PO SCH (08:39)
[2021-07-26] MEDS: THIAMINE HCL 100 MG TAB PO SCH (08:40)
[2021-07-26] MEDS: LIDOCAINE 5% 1 PATCH TD SCH (08:43)
[2021-07-26] MEDS: HEPARIN 100 UNIT/ML 5ML FLUSH IV PRN (08:52)
[2021-07-26] MEDS: LORazepam 0.5 MG TAB PO SCH (09:14)
[2021-07-26] MEDS: LETROZOLE 2.5 MG TAB PO SCH (09:15)
[2021-07-26] MEDS: INSULIN ASPART PER UNIT SC SCH ×4 (09:17→20:47)
[2021-07-26] MEDS: PALBOCICLIB 125 MG PO SCH (09:17)
[2021-07-26] MEDS: ASCORBIC ACID 500 MG TAB PO SCH ×2 (09:46→17:32)
[2021-07-26] MEDS: DAPTOmycin 300 MG in SYRINGE 0 ML IV SCH (17:41)
[2021-07-26] MEDS: SENNA 8.6 MG TAB PO SCH (20:43)
[2021-07-26] MEDS: ATORVASTATIN 40 MG TAB PO SCH (20:43)
[2021-07-26] MEDS: INSULIN GLARGINE SOLOSTAR 100 UNITS/ML 3 ML PEN SQ SCH (20:46)
[2021-07-26] MEDS: MELATONIN 3 MG TAB PO PRN (21:02)
[2021-07-27] MEDS: oxyCODONE HCL IR 5 MG TAB (IMMEDIATE RELEASE) PO SCH ×6 (03:59→23:54)
[2021-07-27] MEDS: ACETAMINOPHEN 500 MG TAB PO SCH ×3 (05:41→21:01)
[2021-07-27] MEDS: LEVOTHYROXINE SODIUM 25 MCG TABLET PO SCH (05:42)
[2021-07-27 06:10] LABS: Basophils # (auto) 0.02 K/uL (0-0.2); Basophils % (auto) 0.7 %; Eosinophils % (auto) 3.3 %; Hematocrit (blood only) 24.8 % (37-47); Lymphocytes # (auto) 0.98 K/uL (1.2-3.4); Lymphocytes % (auto) 31.9 %; Mean Corpuscular Hemoglobin 30.9 pg (25-34); Mean Corpuscular Hgb Conc 32.3 g/dL (32-36); Mean Corpuscular Volume 95.8 fL (80-100); Mean Platelet Volume 10.6 fL (7.4-10.4); Neutrophils # (auto) 1.57 K/uL (1.4-6.5); Neutrophils % (auto) 51.1 %; Platelet Count 245 K/uL (130-400); RDW Coefficient of Variation 19.8 % (11.5-14.5); RDW Standard Deviation 67.3 fL (36.4-46.3); Red Blood Count 2.59 M/uL (4.2-5.4); White Blood Count 3.07 K/uL (4.8-10.8)
--- NOTE | 2021-07-27 06:57 | Orthopedic Progress Note ---
Date of Service July 27, 2021 Assessment & Plan (1) Infected prosthetic knee joint: We are still awaiting placement. She is on IV daptomycin and Xarelto for DVT prophylaxis. She will be weightbearing as tolerated in knee immobilizer. She is orthopedically stable for discharge when a bed becomes available. Nichole Diop was seen and examined at bedside yesterday. The computer system was down and also unable to place the note at the time. She was doing well. She was having less pain in her knee. She is hoping to get the rochelle out soon. She is still awaiting placement. Review of Systems All systems reviewed & are unremarkable except as noted in HPI & below. Physical Exam On physical examination of the right knee, the incision looks good. Her knee is out in full extension with the knee immobilizer in place. She has active dorsiflexion plantarflexion of the right ankle. Results & Data Results & Data Laboratory Results . Diagnostic Findings . PG Care Time/CCT Total # of Minutes Spent Total Time Spent with Patient: Total time spent is greater than 50% in coordination of care (as documented) at patient's floor/unit and/or counseling patient: Coding Level of Care Code 60403 Post Operative Follow-Up Diagnoses Infected prosthetic knee joint T84.59XA; Z96.659
[2021-07-27] MEDS: FERROUS GLUCONATE 324 MG TAB PO SCH ×2 (08:33→17:24)
[2021-07-27] MEDS: CALCIUM CARBONATE 1250MG TAB PO SCH (08:33)
[2021-07-27] MEDS: ASCORBIC ACID 500 MG TAB PO SCH ×2 (08:33→17:24)
[2021-07-27] MEDS: DICLOFENAC SOD 1% GEL 100 GM TUBE EXT SCH ×4 (08:37→20:02)
[2021-07-27] MEDS: CHOLECALCIFEROL 1,000 UNITS 25 MCG TAB PO SCH (08:37)
[2021-07-27] MEDS: dilTIAZem HCL 240 MG CAPCR PO SCH (08:38)
[2021-07-27] MEDS: lisinopril 10 MG TAB PO SCH (08:39)
[2021-07-27] MEDS: GABAPENTIN 300 MG CAP PO SCH ×2 (08:39→20:02)
[2021-07-27] MEDS: DULoxetine HCL 60 MG CAP PO SCH (08:39)
[2021-07-27] MEDS: DULoxetine HCL 30 MG CAP PO SCH (08:39)
[2021-07-27] MEDS: LORazepam 0.5 MG TAB PO SCH (08:39)
[2021-07-27] MEDS: DOCUSATE SODIUM 100 MG CAP PO SCH ×2 (08:39→20:02)
[2021-07-27] MEDS: THIAMINE HCL 100 MG TAB PO SCH (08:40)
[2021-07-27] MEDS: RIVAROXABAN 20 MG TAB PO SCH (08:40)
[2021-07-27] MEDS: LIDOCAINE 5% 1 PATCH TD SCH (08:40)
[2021-07-27] MEDS: MULTIVITAMIN TAB PO SCH (08:40)
[2021-07-27] MEDS: PANTOprazole 40 MG TAB PO SCH (08:42)
--- NOTE | 2021-07-27 08:47 | Progress Notes ---
DATE OF SERVICE: 07/27/2021. SUBJECTIVE: A 71-year-old female, now 16 days out from removal of an infected knee replacement and p lacement of an articulated antibiotic spacer. She is doing pretty well. Pain is markedly better. S he has been getting around and mobilizing reasonably well. Just waiting for placement. OBJECTIVE: VITAL SIGNS: Temperature 36.7. Vital signs are stable. PHYSICAL EXAMINATION: GENERAL: Shows a pleasant, elderly female. She is sitting up in her bed side chair and looks pretty comfortable this morning. EXTREMITIES: Examination of the right leg reveals the leg to be well aligned. Her incision is heale d nicely. There is no drainage. She can do a good straight leg raise. She is neurologically intact . LABORATORY DATA: Hemoglobin 8.0. Hematocrit 24.8. ASSESSMENT: A 71-year-old female, now over 2 weeks out for resection arthroplasty and placement of a ntibiotic spacer, doing pretty well. Just waiting for placement. She is going to need 6 weeks of IV antibiotics. We are going to start some knee range of motion. She is anemic, but asymptomatic. We will just continue to follow that. She is on DVT prophylaxis including rivaroxaban 20 mg a day, chris ch is her baseline. Job ID: [id number]
[2021-07-27] MEDS: LETROZOLE 2.5 MG TAB PO SCH (08:50)
[2021-07-27] MEDS: INSULIN ASPART PER UNIT SC SCH ×4 (09:12→20:56)
[2021-07-27] MEDS: PALBOCICLIB 125 MG PO SCH (09:14)
--- NOTE | 2021-07-27 10:55 | Pharmacy Report ---
Pharmacy Glycemic Short Note 2 - Date of Service July 27, 2021 - Glycemic Short BSG Results (Last 24 hours): 07/26/21 07/26/21 07/26/21 12:02 17:10 20:46 POC Glucose 136 H 241 H 85 07/27/21 07:39 POC Glucose 146 H OUTPATIENT ANTIDIABETIC REGIMEN: * Lantus 31 units SQ HS * Trulicity 3 mg SQ weekly on Fridays * Glipizide 5 mg PO AM * HbA1c = 6.8% (07/09/21) ASSESSMENT: 07/27/21 * Ms Solorzano has been receiving ~20 units of insulin daily for the past few days, with reasonable control. * No changes required at this time. * Pt will likely discharge to SNF over the weekend. 07/25 * Faith received 12 units of insulin yesterday with all BSGs at goal; 108, 127, 127, 127 mg/dL * Fasting BSG is trending downward. Will decrease Lantus (~16%). * Post prandial BSGs well controlled the past 48 hours - no change 07/23 * BSGs inexplicably elevated yesterday, 216, 96, 229, and 238 mg/dL * Given previously well-controlled BSGs and patient's propensity for hypoglycemia, will plan to continue current regimen and closely monitor BSGs * Consider slight tightening of Novolog parameters tomorrow if persistent hyperglycemia * Will allow for increased dose of Lantus tonight if BSG greater than 200 mg/dL 07/21 * Patient's BSGs yesterday were [phone] mg/dL. Fasting today is 146 mg/dL. * Continue Lantus as fastings are steady. * Continue Novolog as BSGs steady throughout day and only 1 BSG above goal. PLAN FOR INPATIENT GLYCEMIC CONTROL: * Hold outpatient oral diabetes medications * Basal insulin - * Lantus 10-12 units SQ HS (see EHR for details) * Bolus insulin * NovoLog per scale ACHS or Q6hrs while NPO * Goal Range: Low 110 mg/dL - High 140 mg/dL * Correction Factor: 50 mg/dL/unit * Nutritional / Prandial insulin per carb ratio of 1 unit per 20 grams CHO consumed
[2021-07-27] MEDS: DAPTOmycin 300 MG in SYRINGE 0 ML IV SCH (17:16)
[2021-07-27] MEDS: ATORVASTATIN 40 MG TAB PO SCH (20:02)
[2021-07-27] MEDS: SENNA 8.6 MG TAB PO SCH (20:02)
[2021-07-27] MEDS: MELATONIN 3 MG TAB PO PRN (20:07)
[2021-07-27] MEDS: INSULIN GLARGINE SOLOSTAR 100 UNITS/ML 3 ML PEN SQ SCH (20:56)
[2021-07-28] MEDS: oxyCODONE HCL IR 5 MG TAB (IMMEDIATE RELEASE) PO SCH ×5 (04:00→20:31)
[2021-07-28] MEDS: LEVOTHYROXINE SODIUM 25 MCG TABLET PO SCH (06:13)
[2021-07-28] MEDS: ACETAMINOPHEN 500 MG TAB PO SCH ×3 (06:13→21:21)
[2021-07-28 06:18] LABS: Basophils # (auto) 0.03 K/uL (0-0.2); Eosinophils # (auto) 0.16 K/uL (0-0.5); Eosinophils % (auto) 5.4 %; Hematocrit (blood only) 26.4 % (37-47); Hemoglobin 8.4 g/dL (12.0-16.0); Lymphocytes # (auto) 0.94 K/uL (1.2-3.4); Lymphocytes % (auto) 31.8 %; Mean Corpuscular Hemoglobin 30.4 pg (25-34); Mean Corpuscular Hgb Conc 31.8 g/dL (32-36); Mean Corpuscular Volume 95.7 fL (80-100); Mean Platelet Volume 10.5 fL (7.4-10.4); Monocytes # (auto) 0.26 K/uL (0.11-0.59); Monocytes % (auto) 8.8 %; Neutrophils # (auto) 1.57 K/uL (1.4-6.5); Platelet Count 273 K/uL (130-400); RDW Coefficient of Variation 19.9 % (11.5-14.5); RDW Standard Deviation 67.3 fL (36.4-46.3); Red Blood Count 2.76 M/uL (4.2-5.4); White Blood Count 2.96 K/uL (4.8-10.8)
[2021-07-28 06:44] LABS: Creatinine Clr Calc Pharmacy 71.5 ml/min; Est GFR (African American) 100.6 ml/min; Est GFR (Non-African American) 86.8 ml/min
[2021-07-28] MEDS: lisinopril 10 MG TAB PO SCH (09:10)
[2021-07-28] MEDS: DOCUSATE SODIUM 100 MG CAP PO SCH ×2 (09:10→20:33)
[2021-07-28] MEDS: GABAPENTIN 300 MG CAP PO SCH ×2 (09:10→20:34)
[2021-07-28] MEDS: CALCIUM CARBONATE 1250MG TAB PO SCH (09:10)
[2021-07-28] MEDS: ASCORBIC ACID 500 MG TAB PO SCH ×2 (09:10→17:49)
[2021-07-28] MEDS: FERROUS GLUCONATE 324 MG TAB PO SCH ×2 (09:10→17:49)
[2021-07-28] MEDS: CHOLECALCIFEROL 1,000 UNITS 25 MCG TAB PO SCH (09:11)
[2021-07-28] MEDS: THIAMINE HCL 100 MG TAB PO SCH (09:11)
[2021-07-28] MEDS: DULoxetine HCL 30 MG CAP PO SCH (09:11)
[2021-07-28] MEDS: PANTOprazole 40 MG TAB PO SCH (09:13)
[2021-07-28] MEDS: MULTIVITAMIN TAB PO SCH (09:13)
[2021-07-28] MEDS: DULoxetine HCL 60 MG CAP PO SCH (09:13)
[2021-07-28] MEDS: dilTIAZem HCL 240 MG CAPCR PO SCH (09:13)
[2021-07-28] MEDS: DICLOFENAC SOD 1% GEL 100 GM TUBE EXT SCH ×4 (09:15→20:33)
[2021-07-28] MEDS: LIDOCAINE 5% 1 PATCH TD SCH (09:16)
[2021-07-28] MEDS: PALBOCICLIB 125 MG PO SCH (09:18)
[2021-07-28] MEDS: RIVAROXABAN 20 MG TAB PO SCH (09:19)
[2021-07-28] MEDS: POLYETHYLENE (MIRALAX) 17 GM PACK PO SCH (09:21)
[2021-07-28] MEDS: LORazepam 0.5 MG TAB PO SCH (09:28)
[2021-07-28] MEDS: INSULIN ASPART PER UNIT SC SCH ×4 (09:29→20:50)
--- NOTE | 2021-07-28 09:29 | Progress Notes ---
DATE OF SERVICE: 07/28/2021. SUBJECTIVE: A 71-year-old female now 2-1/2 weeks out from resection arthroplasty and placement of an articulating antibiotic spacer. She is doing well. No complaints today. Just waiting for placemen t. OBJECTIVE: VITAL SIGNS: Temperature is 36.7. Vital signs are stable. GENERAL: Shows a pleasant, elderly female, sitting up in bed and eating breakfast. EXTREMITIES: Examination of the right leg reveals the leg to be well aligned. Incision is clean, dr y and intact. She is neurologically intact. LABORATORY DATA: Hemoglobin 8.4. Hematocrit 26.4. ASSESSMENT: A 71-year-old female now 2-1/2 weeks out from resection arthroplasty and placement of ar ticulating antibiotic spacer, doing reasonably well. Just waiting for placement. She is having a li ttle bit more pain since she started knee motion, but nothing out of the ordinary. PLAN: 1. DVT prophylaxis includes thigh-high TEDs, SCDs, and she is back on Xarelto. 2. PT/OT. She can weight bear as tolerated. Knee immobilizer while walking. We are going to gentl y work on some knee motion, so her knee does not too stiff. 3. Pain control, doing okay with current pain regimen. 4. Medical management as per the medicine service. 5. Disposition, just waiting for placement. Job ID: [id number]
[2021-07-28] MEDS: DAPTOmycin 300 MG in SYRINGE 0 ML IV SCH (17:49)
[2021-07-28] MEDS: ATORVASTATIN 40 MG TAB PO SCH (20:33)
[2021-07-28] MEDS: SENNA 8.6 MG TAB PO SCH (20:35)
[2021-07-28] MEDS: MELATONIN 3 MG TAB PO PRN (20:50)
[2021-07-28] MEDS: INSULIN GLARGINE SOLOSTAR 100 UNITS/ML 3 ML PEN SQ SCH (20:51)
[2021-07-29] MEDS: oxyCODONE HCL IR 5 MG TAB (IMMEDIATE RELEASE) PO SCH ×6 (00:18→20:23)
[2021-07-29] MEDS: ACETAMINOPHEN 500 MG TAB PO SCH ×3 (05:04→21:15)
[2021-07-29] MEDS: LEVOTHYROXINE SODIUM 25 MCG TABLET PO SCH (05:04)
[2021-07-29] MEDS: PANTOprazole 40 MG TAB PO SCH (08:49)
[2021-07-29] MEDS: GABAPENTIN 300 MG CAP PO SCH ×2 (08:49→20:25)
[2021-07-29] MEDS: THIAMINE HCL 100 MG TAB PO SCH (08:49)
[2021-07-29] MEDS: POLYETHYLENE (MIRALAX) 17 GM PACK PO SCH (08:49)
[2021-07-29] MEDS: RIVAROXABAN 20 MG TAB PO SCH (08:49)
[2021-07-29] MEDS: lisinopril 10 MG TAB PO SCH (08:49)
[2021-07-29] MEDS: MULTIVITAMIN TAB PO SCH (08:49)
[2021-07-29] MEDS: DULoxetine HCL 30 MG CAP PO SCH (08:50)
[2021-07-29] MEDS: CALCIUM CARBONATE 1250MG TAB PO SCH (08:50)
[2021-07-29] MEDS: DOCUSATE SODIUM 100 MG CAP PO SCH ×2 (08:50→20:25)
[2021-07-29] MEDS: LORazepam 0.5 MG TAB PO SCH (08:50)
[2021-07-29] MEDS: DULoxetine HCL 60 MG CAP PO SCH (08:50)
[2021-07-29] MEDS: dilTIAZem HCL 240 MG CAPCR PO SCH (08:50)
[2021-07-29] MEDS: LIDOCAINE 5% 1 PATCH TD SCH (08:50)
[2021-07-29] MEDS: ASCORBIC ACID 500 MG TAB PO SCH ×2 (08:50→16:09)
[2021-07-29] MEDS: FERROUS GLUCONATE 324 MG TAB PO SCH ×2 (08:50→16:09)
[2021-07-29] MEDS: CHOLECALCIFEROL 1,000 UNITS 25 MCG TAB PO SCH (08:50)
[2021-07-29] MEDS: INSULIN ASPART PER UNIT SC SCH ×4 (08:51→20:23)
[2021-07-29] MEDS: PALBOCICLIB 125 MG PO SCH (08:52)
[2021-07-29] MEDS: DICLOFENAC SOD 1% GEL 100 GM TUBE EXT SCH ×4 (09:02→20:24)
--- NOTE | 2021-07-29 10:34 | Progress Notes ---
DATE OF SERVICE: 07/29/2020. SUBJECTIVE: A 71-year-old female now 2-1/2 weeks out from resection arthroplasty and placement of an tibiotic spacer for an infected right knee replacement. 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 She is on IV antibiotics. She is doing pretty well. Just waiting for patricia cement. Pain is controlled. No chest pain. No other complaints. OBJECTIVE: VITAL SIGNS: Temperature 36.7. Vital signs are stable. GENERAL: Shows a pleasant, elderly female, sitting up in bed, looks quite comfortable. EXTREMITIES: Examination of the right leg reveals the leg to be well aligned. Her incision is clean , dry, and intact. There is no drainage. She can do a straight leg raise. She is neurologically in tact. Her calf is soft and supple. LABORATORY DATA: None. ASSESSMENT: A 71-year-old female 2-1/2 weeks out from resection arthroplasty and placement of articu lating antibiotic spacer for a chronically infected knee replacement with methicillin-resistant coagu lase-negative staphylococcus. She is doing pretty well medically. Pain is controlled. Wound looks good. Just waiting for placement. She needs 6 weeks of IV antibiotics. PLAN: 1. DVT prophylaxis includes thigh-high TEDs, SCDs and back on Xarelto. 2. PT/OT. She can weight bear as tolerated. We would like her wearing the knee immobilizer when wa lking. We are going to work on knee motion 0-90 degrees for now. 3. Pain control, doing okay with current pain regimen. 4. Medical management, doing okay medically. 5. Disposition: We are just waiting for placement. Job ID: [id number]
[2021-07-29] MEDS: DAPTOmycin 300 MG in SYRINGE 0 ML IV SCH (16:08)
[2021-07-29] MEDS: MELATONIN 3 MG TAB PO PRN (20:23)
[2021-07-29] MEDS: ATORVASTATIN 40 MG TAB PO SCH (20:24)
[2021-07-29] MEDS: INSULIN GLARGINE SOLOSTAR 100 UNITS/ML 3 ML PEN SQ SCH (20:26)
[2021-07-29] MEDS: SENNA 8.6 MG TAB PO SCH (20:26)
[2021-07-30] MEDS: oxyCODONE HCL IR 5 MG TAB (IMMEDIATE RELEASE) PO SCH ×6 (00:22→20:06)
[2021-07-30] MEDS ORDERED: MoRPHine SULFATE 2 MG/ML CARP IV STA (01:36)
[2021-07-30] MEDS: HEPARIN 100 UNIT/ML 5ML FLUSH IV PRN ×3 (01:49→17:30)
[2021-07-30] MEDS: ACETAMINOPHEN 500 MG TAB PO SCH ×3 (06:03→21:09)
[2021-07-30] MEDS: LEVOTHYROXINE SODIUM 25 MCG TABLET PO SCH (06:04)
[2021-07-30 06:35] LABS: Creatinine Clr Calc Pharmacy 66.6 ml/min; Est GFR (African American) 94.7 ml/min; Est GFR (Non-African American) 81.7 ml/min
[2021-07-30] MEDS: LIDOCAINE 5% 1 PATCH TD SCH (08:17)
[2021-07-30] MEDS: POLYETHYLENE (MIRALAX) 17 GM PACK PO SCH (08:17)
[2021-07-30] MEDS: lisinopril 10 MG TAB PO SCH (08:18)
[2021-07-30] MEDS: CALCIUM CARBONATE 1250MG TAB PO SCH (08:18)
[2021-07-30] MEDS: FERROUS GLUCONATE 324 MG TAB PO SCH ×2 (08:19→17:21)
[2021-07-30] MEDS: ASCORBIC ACID 500 MG TAB PO SCH ×2 (08:19→17:21)
[2021-07-30] MEDS: CHOLECALCIFEROL 1,000 UNITS 25 MCG TAB PO SCH (08:19)
[2021-07-30] MEDS: RIVAROXABAN 20 MG TAB PO SCH (08:19)
[2021-07-30] MEDS: DULoxetine HCL 60 MG CAP PO SCH (08:19)
[2021-07-30] MEDS: DOCUSATE SODIUM 100 MG CAP PO SCH ×2 (08:19→20:07)
[2021-07-30] MEDS: MULTIVITAMIN TAB PO SCH (08:19)
[2021-07-30] MEDS: THIAMINE HCL 100 MG TAB PO SCH (08:19)
[2021-07-30] MEDS: PANTOprazole 40 MG TAB PO SCH (08:20)
[2021-07-30] MEDS: GABAPENTIN 300 MG CAP PO SCH ×2 (08:20→20:08)
[2021-07-30] MEDS: DULoxetine HCL 30 MG CAP PO SCH (08:20)
[2021-07-30] MEDS: dilTIAZem HCL 240 MG CAPCR PO SCH (08:20)
[2021-07-30] MEDS: DICLOFENAC SOD 1% GEL 100 GM TUBE EXT SCH ×4 (08:22→20:07)
--- NOTE | 2021-07-30 08:26 | Pharmacy Report ---
Pharmacy Glycemic Short Note 2 - Date of Service July 30, 2021 - Glycemic Short BSG Results (Last 24 hours): 07/29/21 07/29/21 07/29/21 12:11 16:55 20:04 POC Glucose 206 H 157 H 154 H 07/30/21 08:11 POC Glucose 165 H OUTPATIENT ANTIDIABETIC REGIMEN: * Lantus 31 units SQ HS * Trulicity 3 mg SQ weekly on Fridays * Glipizide 5 mg PO AM * HbA1c = 6.8% (07/09/21) ASSESSMENT: 07/28 * Stressors stable * AM fasting BSG above goal, but trending down with increased dose started two days ago. Will not increase further due to previous trend in AM fasting BSG while on this dose * Five of the last six post-prandial BSG's above goal, although only one >180 mg/dL. Will slightly tighten CHO ratio, but not significantly due to previous trend in post-prandial BSG's 07/27 * Ms Solorzano has been receiving ~20 units of insulin daily for the past few days, with reasonable control. * No changes required at this time. * Pt will likely discharge to SNF over the weekend. 07/25 * Faith received 12 units of insulin yesterday with all BSGs at goal; 108, 127, 127, 127 mg/dL * Fasting BSG is trending downward. Will decrease Lantus (~16%). * Post prandial BSGs well controlled the past 48 hours - no change PLAN FOR INPATIENT GLYCEMIC CONTROL: * Hold outpatient oral diabetes medications * Basal insulin * Lantus 10-12 units SQ HS (see EHR for details) * Bolus insulin * NovoLog per scale ACHS or Q6hrs while NPO * Goal Range: Low 110 mg/dL - High 140 mg/dL * Correction Factor: 50 mg/dL/unit * Nutritional / Prandial insulin per carb ratio of 1 unit per 18 grams CHO consumed
[2021-07-30] MEDS: LORazepam 0.5 MG TAB PO SCH (08:29)
[2021-07-30] MEDS: PALBOCICLIB 125 MG PO SCH (08:29)
[2021-07-30] MEDS: INSULIN ASPART PER UNIT SC SCH ×4 (08:31→21:08)
--- NOTE | 2021-07-30 10:21 | Progress Notes ---
DATE OF SERVICE: 07/30/2021. SUBJECTIVE: A 71-year-old white female now 2-1/2 weeks out from resection arthroplasty and placement of antibiotic spacer. She is doing well this morning. No new complaints. Just waiting for placeme nt. OBJECTIVE: VITAL SIGNS: Temperature 36.5. Vital signs are stable. PHYSICAL EXAMINATION: GENERAL: Shows a pleasant, elderly female. She is sitting up in bed, looks comfortable. EXTREMITIES: Examination of the right leg reveals the incision to be clean, dry and intact. Leg is well aligned. She can do a good straight leg raise. Range of motion is 0 to about 70 degrees. She is neurologically intact. LABORATORY DATA: None. ASSESSMENT: A 71-year-old female now 2-1/2 weeks out from resection arthroplasty and placement of an tibiotic spacer, doing pretty well. She is requiring 6 weeks of IV antibiotics. Cultures grew out m ethicillin-resistant coagulase-negative staphylococcus. She is on daptomycin, tolerating that well. She is neurologically intact. Pain is controlled. PLAN: 1. DVT prophylaxis includes thigh-high TEDs, SCDs and back on her Xarelto. 2. PT/OT. She can weight bear as tolerated. I would like her wear the knee immobilizer while walki ng and that is it. 3. Pain control, doing okay with current pain regimen. 4. IV antibiotics x6 weeks, daptomycin. 5. Disposition: She is orthopedically okay for discharge. Just waiting for placement. Hopefully, that will happen today. Job ID: [id number]
[2021-07-30] MEDS: DAPTOmycin 300 MG in SYRINGE 0 ML IV SCH (17:29)
[2021-07-30] MEDS: ATORVASTATIN 40 MG TAB PO SCH (20:07)
[2021-07-30] MEDS: SENNA 8.6 MG TAB PO SCH (20:08)
[2021-07-30] MEDS: MELATONIN 3 MG TAB PO PRN (21:08)
[2021-07-30] MEDS: INSULIN GLARGINE SOLOSTAR 100 UNITS/ML 3 ML PEN SQ SCH (21:10)
[2021-07-31] MEDS: oxyCODONE HCL IR 5 MG TAB (IMMEDIATE RELEASE) PO SCH ×6 (00:23→20:25)
[2021-07-31] MEDS: ACETAMINOPHEN 500 MG TAB PO SCH ×3 (05:07→22:16)
[2021-07-31] MEDS: LEVOTHYROXINE SODIUM 25 MCG TABLET PO SCH (05:08)
[2021-07-31] MEDS: CHOLECALCIFEROL 1,000 UNITS 25 MCG TAB PO SCH (08:37)
[2021-07-31] MEDS: DULoxetine HCL 60 MG CAP PO SCH (08:37)
[2021-07-31] MEDS: dilTIAZem HCL 240 MG CAPCR PO SCH (08:37)
[2021-07-31] MEDS: FERROUS GLUCONATE 324 MG TAB PO SCH ×2 (08:37→15:59)
[2021-07-31] MEDS: CALCIUM CARBONATE 1250MG TAB PO SCH (08:37)
[2021-07-31] MEDS: DULoxetine HCL 30 MG CAP PO SCH (08:37)
[2021-07-31] MEDS: RIVAROXABAN 20 MG TAB PO SCH (08:38)
[2021-07-31] MEDS: THIAMINE HCL 100 MG TAB PO SCH (08:38)
[2021-07-31] MEDS: PANTOprazole 40 MG TAB PO SCH (08:38)
[2021-07-31] MEDS: MULTIVITAMIN TAB PO SCH (08:38)
[2021-07-31] MEDS: lisinopril 10 MG TAB PO SCH (08:38)
[2021-07-31] MEDS: ASCORBIC ACID 500 MG TAB PO SCH ×2 (08:39→15:59)
[2021-07-31] MEDS: GABAPENTIN 300 MG CAP PO SCH ×2 (08:39→20:26)
[2021-07-31] MEDS: DICLOFENAC SOD 1% GEL 100 GM TUBE EXT SCH ×4 (08:39→20:26)
[2021-07-31] MEDS: DOCUSATE SODIUM 100 MG CAP PO SCH ×2 (08:39→20:26)
[2021-07-31] MEDS: LIDOCAINE 5% 1 PATCH TD SCH (08:40)
[2021-07-31] MEDS: PALBOCICLIB 125 MG PO SCH (08:40)
[2021-07-31] MEDS: POLYETHYLENE (MIRALAX) 17 GM PACK PO SCH (08:41)
[2021-07-31] MEDS: INSULIN ASPART PER UNIT SC SCH ×4 (08:49→22:16)
[2021-07-31] MEDS: LORazepam 0.5 MG TAB PO SCH (08:49)
[2021-07-31] MEDS: HEPARIN 100 UNIT/ML 5ML FLUSH IV PRN (08:55)
--- NOTE | 2021-07-31 10:56 | Progress Notes ---
DATE OF SERVICE: 07/30/2021. SUBJECTIVE: A 71-year-old female now about 3 weeks out from resection arthroplasty and placement of antibiotic spacer. She is doing pretty well. Some pain, but getting better daily. Just waiting for placement. OBJECTIVE: VITAL SIGNS: Temperature 37.2. Vital signs are stable. PHYSICAL EXAMINATION: GENERAL: Shows a pleasant, elderly female. Sitting up in bed, looks comfortable this morning. EXTREMITIES: Examination of the right leg reveals the incision to be clean, dry and intact. Minimal swelling. She can do a good straight leg raise. Range of motion is 0 to about 60 degrees. No inst ability. She is neurologically intact. ASSESSMENT: A 71-year-old female 3 weeks out from a resection arthroplasty and placement of antibiot ic spacer. She is doing well. She needs 6 weeks of IV antibiotics. She is on Xarelto for deep veno us thrombosis prophylaxis. PLAN: 1. DVT prophylaxis includes thigh-high TEDs, SCDs, and Xarelto. 2. PT/OT. She can weight bear as tolerated in the knee immobilizer. We are working on knee range o f motion and it is going well. 3. Pain control, doing okay with current pain regimen. 4. IV antibiotics x6 weeks. 5. Disposition: She has been denied rehab and assisted. She is planning on going home [facility] with home health and IV antibiotic management. Job ID: [id number]
[2021-07-31] MEDS: DAPTOmycin 300 MG in SYRINGE 0 ML IV SCH (14:12)
[2021-07-31] MEDS: ATORVASTATIN 40 MG TAB PO SCH (20:25)
[2021-07-31] MEDS: MELATONIN 3 MG TAB PO PRN (20:25)
[2021-07-31] MEDS: SENNA 8.6 MG TAB PO SCH (20:26)
[2021-07-31] MEDS: INSULIN GLARGINE SOLOSTAR 100 UNITS/ML 3 ML PEN SQ SCH (22:15)
[2021-08-01] MEDS: oxyCODONE HCL IR 5 MG TAB (IMMEDIATE RELEASE) PO SCH ×4 (00:08→12:59)
[2021-08-01] MEDS: ACETAMINOPHEN 500 MG TAB PO SCH ×2 (06:05→14:11)
[2021-08-01] MEDS: LEVOTHYROXINE SODIUM 25 MCG TABLET PO SCH (06:06)
[2021-08-01 06:17] LABS: Creatinine Clr Calc Pharmacy 54.6 ml/min; Est GFR (African American) 74.5 ml/min; Est GFR (Non-African American) 64.3 ml/min
[2021-08-01] MEDS: lisinopril 10 MG TAB PO SCH (08:34)
[2021-08-01] MEDS: DULoxetine HCL 30 MG CAP PO SCH (08:34)
[2021-08-01] MEDS: FERROUS GLUCONATE 324 MG TAB PO SCH (08:34)
[2021-08-01] MEDS: PANTOprazole 40 MG TAB PO SCH (08:34)
[2021-08-01] MEDS: DULoxetine HCL 60 MG CAP PO SCH (08:35)
[2021-08-01] MEDS: POLYETHYLENE (MIRALAX) 17 GM PACK PO SCH (08:35)
[2021-08-01] MEDS: LIDOCAINE 5% 1 PATCH TD SCH (08:35)
[2021-08-01] MEDS: MULTIVITAMIN TAB PO SCH (08:35)
[2021-08-01] MEDS: CHOLECALCIFEROL 1,000 UNITS 25 MCG TAB PO SCH (08:35)
[2021-08-01] MEDS: dilTIAZem HCL 240 MG CAPCR PO SCH (08:35)
[2021-08-01] MEDS: GABAPENTIN 300 MG CAP PO SCH (08:35)
[2021-08-01] MEDS: DOCUSATE SODIUM 100 MG CAP PO SCH (08:35)
[2021-08-01] MEDS: RIVAROXABAN 20 MG TAB PO SCH (08:35)
[2021-08-01] MEDS: CALCIUM CARBONATE 1250MG TAB PO SCH (08:35)
[2021-08-01] MEDS: ASCORBIC ACID 500 MG TAB PO SCH (08:35)
[2021-08-01] MEDS: THIAMINE HCL 100 MG TAB PO SCH (08:35)
[2021-08-01] MEDS: DICLOFENAC SOD 1% GEL 100 GM TUBE EXT SCH ×2 (08:36→12:17)
[2021-08-01] MEDS: PALBOCICLIB 125 MG PO SCH (08:39)
[2021-08-01] MEDS: LORazepam 0.5 MG TAB PO SCH (08:45)
[2021-08-01] MEDS: INSULIN ASPART PER UNIT SC SCH ×2 (08:59→13:05)
--- NOTE | 2021-08-01 13:48 | Progress Notes ---
DATE OF SERVICE: 08/01/2021. SUBJECTIVE: A 71-year-old female now 3 weeks out from resection arthroplasty and placement of antibi otic spacer. She is doing well. She is hoping to go home today. No new complaints. OBJECTIVE: VITAL SIGNS: Temperature 36.6. Vital signs are stable. PHYSICAL EXAMINATION: GENERAL: Shows a pleasant elderly female. She is sitting up in bed watching TV, talking on the phon e and looks well. EXTREMITIES: Examination of the right leg reveals the incision to be healed nicely. She can do a go od straight leg raise. Range of motion is 0 to about 60 degrees. No pain with hip motion. 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 She i s doing pretty well. PLAN: We will continue IV antibiotics for a total of 6 weeks. DVT prophylaxis includes thigh-high T EDs, SCDs, and she is back on her Xarelto. She is going to be discharged to home with 3 more weeks o f IV antibiotics. Job ID: [id number]
[2021-08-01] MEDS: DAPTOmycin 300 MG in SYRINGE 0 ML IV SCH (14:12)
[2021-08-01] MEDS: HEPARIN 100 UNIT/ML 5ML FLUSH IV PRN (14:12)
[2021-08-08] MEDS ORDERED: CYANOCOBALAMIN 1000 MCG/ML VIAL IM SCH (09:00)
== END 2021-08-01 16:34 | disposition home health service (06) | DRG 467 ==
LOC: ASU 08:42 → PACUINP 08:42 → 3E 17:07

== ENCOUNTER 2021-10-03 09:46 | Observation (INO) ==
--- NOTE | 2021-10-02 08:58 | Anesthesiology Consultation ---
Date of Service October 02, 2021 Assessment & Plan (1) Encounter for pre-operative examination: - COVID screening: Per assessment on 10/01: No known COVID-19 positive contacts or current COVID-19 related symptoms. Travel screen negative. Patient vaccinated. Preop Covid test done 10/01 ([place]) was negative. Pt requiring admission post-operatively. Plan for recheck with COVID Gunter AM DOS due to possibility that patient may have a roommate. OR aware. Gunter order placed. - S/P Right knee TKA revision with spacer (07/11/2021): SAB at L3-4 (x2 attempts) + PNB at [facility]. No issues noted per post-op anesthesia progress note. - EP office visit (09/24/21): "Dual-chamber pacemaker: Normal device function with last interrogation on 09/10/21.. Tachy-monica syndrome: She has had paroxysmal atrial fibrillation with rapid ventricular response rate. Metoprolol tartrate 25 mg BID will therefore be initiated for better rate control. She has the pacemaker in place, therefore, will not have to worry about bradycardia. She will continue with diltiazem at the current dosing.. Atrial fibrillation and flutter: She has had episodes of a fib with elevated rate. She notes intermitt ent tachy-palpitations. Metoprolol will therefore be initiated, as noted above. Will continue with diltiazem as prescribed. Continue anticoagulation for stroke risk reduction.. Anticoagulation: She is tolerating Eliquis with no bleeding complaints, however, she does have chronic anemia. Will need to continue to monitor CBC/PRP periodically while on anticoagulation.. Hypertension: BP elevated today. Metoprolol is being initiated, as noted above. Otherwise, no changes.. Aortic stenosis: Mild with most recent echo. Monitor over time.. Follow-up in 2 months or sooner as needed." - Check BSG AM DOS - Check coags AM DOS (elevated coags on preop testing 09/06/21 specifically PTT critically elevated at 52.2. Appears patient subsequently switched by cardio from Xarelto to Eliquis d/t CCB interactions. Hx of possible hepatic mass/mets. Coags were previously WNL on prior comparison labs 06/2021. Reviewed with Dr. Sadia schumacher, recommended CMP updated in addition to coags AM DOS). OR aware of possible general anesthesia (depending on coag levels AM DOS). - Check CBC with diff AM DOS (recent chemo, anemia)- chronic anemia in setting of cancer/chemo under surveillance by heme/onc- trending downward with most recent H/H 8.1/25.2 on 09/10/[address] Huston. Will recheck AM DOS. Received response from Dahlia at surgeon's office that Dr. Huang wishes to check CBC AM DOS and have blood ready if needed (per Lambert at blood bank- blood ready if needed). Chart Review Chart Review: Acceptable Risk for Surgery (pending CBC/evaluation AM DOS) and Patient NOT seen in Pre Admission Testing History Surgery Operation Date: 10/03/21 12:00 Proposed Procedures p Removal Right Knee Antibiotic Spacer, Revision Right Total Knee Replacement - Nathan Huang MD Height/Weight Height: 5 ft 2 in Weight: 72.575 kg Allergies Allergy/AdvReac Type Severity Reaction Status Date / Time metformin AdvReac Unknown Insomnia Verified 10/01/21 15:41 Medications Home Medications Medication Instructions Recorded Confirmed Last Taken multivitamin 1 tab PO QAM 02/04/18 10/01/21 07/10/21 08:00 cholecalciferol (vitamin D3) 25 1,000 unit PO QAM 07/29/19 10/01/21 07/10/21 08:00 mcg (1,000 unit) capsule (Vitamin D3) calcium 600 mg capsule 600 mg PO QAM 09/27/20 10/01/21 07/10/21 08:00 levothyroxine 25 mcg tablet 37.5 mcg PO QAM #135 tab 10/24/20 10/01/21 07/10/21 08:00 gabapentin 600 mg tablet 300 mg PO BID #60 tab 10/25/20 10/01/21 07/10/21 17:00 thiamine HCl (vitamin B1) 100 mg 100 mg PO QAM #30 tab 01/02/21 10/01/21 07/10/21 08:00 tablet (Vitamin B-1) syringe with needle 3 mL 25 gauge #100 ea 02/22/21 08/27/21 Unknown x 1" (BD Luer-Veronica Syringe) atorvastatin 40 mg tablet 40 mg PO HS #90 tab 03/26/21 10/01/21 07/10/21 21:00 cyanocobalamin (vitamin B-12) 1,000 mcg IM MONTHLY #1 ea 05/23/21 10/01/21 07/10/21 08:00 1,000 mcg/mL injection kit dulaglutide 3 mg/0.5 mL 3 mg SUBCUT WK 05/28/21 10/01/21 07/06/21 subcutaneous pen injector (Trulicity) duloxetine 60 mg capsule,delayed 60 mg PO QAM 05/28/21 10/01/21 07/10/21 08:00 release (Cymbalta) pen needle, diabetic 32 gauge x #100 ea 06/11/21 08/27/21 Unknown 32" (Easy Comfort Pen [place]) blood sugar diagnostic (OneTouch #100 ea 06/20/21 08/27/21 Unknown Ultra Test) palbociclib 125 mg tablet (Ibrance) 125 mg PO UD 07/06/21 10/01/21 07/11/21 07:30 ondansetron HCl 4 mg tablet 4 mg PO Q8H PRN 07/11/21 10/01/21 07/10/21 19:00 pantoprazole 40 mg tablet,delayed 40 mg PO QAM 07/11/21 10/01/21 07/10/21 08:00 release (Protonix) insulin glargine 100 unit/mL (3 31 unit SUBCUT QPM #15 ml 07/17/21 10/01/21 Unknown mL) subcutaneous pen (Basaglar KwikPen U-100 Insulin) fulvestrant 250 mg/5 mL 500 mg IM Q28D 07/27/21 10/01/21 07/10/21 intramuscular syringe duloxetine 30 mg capsule,delayed 30 mg PO QAM #60 cap 08/08/21 10/01/21 Unknown release (Cymbalta) diclofenac sodium 1 % topical gel 2 g TOPICAL UD PRN 08/13/21 10/01/21 Unknown (Voltaren Arthritis Pain) OneTouch Delica Plus Lancet 33 #300 ea NS 08/15/21 08/27/21 Unknown gauge (lancets) OneTouch Delica Plus Lancing #1 ea NS 08/15/21 08/27/21 Unknown Device kit (lancing device with lancets) glipizide 5 mg tablet 5 mg PO QAM #90 tab 09/06/21 10/01/21 Unknown apixaban 5 mg tablet (Eliquis) 5 mg PO BID #60 tab 09/10/21 10/01/21 Unknown metoprolol tartrate 25 mg tablet 25 mg PO BID #60 tab 09/24/21 10/01/21 Unknown acetaminophen 500 mg tablet 1,000 mg PO UD PRN 10/01/21 10/01/21 Unknown (Tylenol Extra Strength) clonazepam 0.5 mg tablet 0.25 mg PO BID 10/01/21 10/01/21 Unknown diltiazem HCl 360 mg capsule,24 360 mg PO QAM 10/01/21 10/01/21 Unknown hr,extended release meclizine 25 mg tablet 25 mg PO UD PRN 10/01/21 10/01/21 Unknown oxycodone 5 mg capsule 5 mg PO Q6H PRN #40 cap 10/01/21 10/01/21 Unknown Past Medical History Medical History Anemia h/o blood transfusions Anxiety Aortic stenosis Mild aortic stenosis (MERLENE 1.6cm2; MG 7.8mmHg) per 12/2019 echo Atrial fibrillation Cervical spine disease Full ROM per pt Chronic pain Degenerative disc disease Depression Diabetes mellitus, type 2 IDDM Gastroesophageal reflux disease controlled, stable per pt Hx of cardiac pacemaker Implanted 2019 (tachy-monica syndrome), Medtronic device Follows with Dr. Ramires Hypercholesterolemia Hypothyroidism Infiltrating ductal carcinoma of left breast Initial Dx 2015- s/p lumpectomy, XRT and anastrozole Metastatic breast cancer 03/2020, follows with [facility] Liver mass Pt denies but 05/17/20 PET scan shows 2.5 right hepatic lobe mass consistent with known hepatic metastasis Metastatic lung carcinoma Neuropathy Obstructive sleep apnea "Resolved" s/p gastric bypass (? retested) Peripheral neuropathy Hands (B/L CTS) Past Family History Family History Unknown Breast cancer Emphysema lung Mother Diabetes Heart disease Father Heart disease Other No family history of adverse response to anesthesia Denies family history of Ovarian cancer Prostate cancer Coronary heart disease Colorectal cancer Past Surgical History Surgical History H/O bilateral hip replacements History of carpal tunnel surgery of left wrist 06/2021 History of carpal tunnel surgery of right wrist History of section x1 History of colonoscopy History of evacuation of hematoma Hematoma right breast and right chest 08/31/13 Dr. Shah History of surgery Right knee TKA revision with spacer (07/11/2021): SAB at L3-4 (x2 attempts) + PNB at [facility]. No issues noted per post-op anesthesia progress note. History of total knee arthroplasty R/L Port-A-Cath in place Insertion of Mediport Right Subclavian Dr. Shah 06/13/2020 CURRENT RIGHT SIDE Status post appendectomy Status post arthroscopy of left shoulder Status post gastric bypass for obesity Status post laparoscopic cholecystectomy Status post lumbar spine surgery for decompression of spinal cord Status post panniculectomy Status post partial mastectomy of left breast Status post repair of ventral hernia Status post total abdominal hysterectomy and bilateral salpingo-oophorectomy Social History Smoking Status: Former smoker tobacco type: cigarettes Do You Dip or Chew Tobacco: No Smoking End Date: 14 YR AGO Hx Alcohol Use: Yes (A COUPLE A YR) Alcohol type: beer and wine alcohol intake frequency: holidays/special occasions only Hx Substance Use: No substance use type: prescription drug Lab Results Anesthesia Preop Results Results Anesthesia Widget: WBC 2.72 K/uL (4.8-10.8) L 09/10/21 Hgb 8.1 g/dL (12.0-16.0) L 09/10/21 Hct 25.2 % (37-47) L 09/10/21 Plt 191 K/uL (130-400) 09/10/21 Na 134 mmol/L (136-145) L 09/06/21 K 4.5 mmol/L (3.5-5.1) 09/06/21 Cl 102 mmol/L (98-107) 09/06/21 CO2 23 mmol/L (21-32) 09/06/21 BUN 17 mg/dl (6-23) 09/06/21 Creat 1.05 mg/dl (0.6-1.2) 09/06/21 Glucose Level 107 mg/dl (70-99(Fasting)) H 09/06/21 PT 18.2 Seconds (9.0-12.0) H 09/06/21 PTT 52.2 Seconds (21.0-31.0) H* 09/06/21 INR 1.8 (0.9-1.1) H 09/06/21 TSH 3.145 uIu/ml (0.300-4.500) 08/12/21 Blood Type O Positive 09/10/21 Antibody Screen POSITIVE A 09/10/21 Testing Laboratory Results Blood bank aware of positive antibodies- they state nothing further needed from PAT. Electrocardiogram Date: 08/12/21 Findings: + NSR @ (66) Echocardiogram Date: 01/14/20 EF 55-60% No regional wall motion abnormalities noted No significant change compared to prior echo 10/2018 Normal left ventricular size, thickness and function Mild valvular aortic stenosis (EMRLENE 1.6cm2; MG 7.8mmHg) Mild mitral regurgitation Mild tricuspid regurgitation Mild aortic calcification Other Testing Chest CT (08/30/21) No acute chest disease. No evidence for interval metastatic disease. There is coronary artery calcification. There is a small hiatal hernia. Pacer check (09/10/21) The pacemaker was fully evaluated today including threshold measurements and interrogation of data storage. It is working well with stable thresholds. Battery voltage remains adequate. Frequent atrial fibrillation was identified. She continues to have paroxysmal atrial fibrillation, she continues to spend the majority of the time in atrial fibrillation with a somewhat rapid heart rate. She appears largely asymptomatic with the arrhythmia. Will increase her diltiazem dose to 360 mg daily for better rate control. Atrial fibrillation and flutter: approximately 35% of the time. She is on Xarelto and is doing well on it, however, given possible interaction with diltiazem in addition to her chronic anemia, will plan to switch the medication to Eliquis 5 mg BID. Magnet Response: Medtronic Pacemaker D00 85 Underlying Rhythm: Sinus Bradycardia and Atrial Fibrillation Device Dependent: No Mode: MVP-R Lower Rate: 60 Upper Rate: 130 PORTIA/Longevity: 12.3 years
[~2021-10-03 09:46] MED LIST changes: -ACETAMINOPHEN 500 MG TAB PO SCH; -DAKIN'S SOLN 0.5% FULL STRENGTH 473ML BTL EXT ONE; +EPINEPHrine INJ 1 MG/ML AMP ONE; -FAMOTIDINE 20 MG TAB PO SCH; -GABAPENTIN 300 MG CAP PO SCH; +LIDOCAINE 2% 2 ML VIAL/AMP(20MG/ML) INFIL ONE; -LR 500ML BOLUS, THEN 15ML/HR IV SCH; -LR 60ML/HR IV SCH; +PROPOFOL IV EMULSION 10 MG/ML 20 ML VIAL IV ONE; -Scopolamine 1 MG TDSY TD SCH; -TOBRAMYCIN SULFATE VIAL ONE; -TRANEXAMIC ACID 1,000 MG **IV Intra-op IV SCH; -VANCOMYCIN HCL 1000MG/20ML VIAL ONE; +ePHEDrine sulfate 50 MG/ML SYR ONE; +fentaNYL citrate 100 MCG/2 ML VIAL ONE
[2021-10-03] MEDS ORDERED: HYDROmorphone INJ 1 MG/ML SYRINGE IV PRN (09:48)
[2021-10-03] MEDS ORDERED: LABETALOL HCL IV 5 MG/ML 20ML IV PRN (09:48)
[2021-10-03] MEDS ORDERED: MEPERIDINE HCL 25 MG/ML CARP/VIAL IV PRN (09:48)
[2021-10-03] MEDS ORDERED: PHENYLEPHRINE 100MCG/ML 5ML SYR IV PRN (09:48)
[2021-10-03] MEDS ORDERED: ONDANSETRON INJ 2 MG/ML 2 ML VIAL IV PRN ×2 (09:48→16:36)
[2021-10-03] MEDS ORDERED: ATROPINE SULFATE 0.1 MG/ML 10ML SYR IV PRN (09:48)
[2021-10-03] MEDS ORDERED: ePHEDrine sulfate 50 MG/ML AMP IV PRN (09:48)
--- NOTE | 2021-10-03 10:13 | History & Physical Bridge Note ---
Date of Service October 03, 2021 History & Physical Bridge Note I have examined the patient, reviewed the History & Physical and in the interval since the performance of the History & Physical I have noted the following changes of clinical significance: no changes noted
[2021-10-03] MEDS ORDERED: DEXTROSE 50% 50 ML SYRINGE IV ONE ×2 (10:17→10:18)
[2021-10-03 10:24] LABS: Basophils # (auto) 0.06 K/uL (0-0.2); Basophils % (auto) 1.2 %; Eosinophils # (auto) 0.03 K/uL (0-0.5); Eosinophils % (auto) 0.6 %; Hematocrit (blood only) 29.4 % (37-47); Hemoglobin 9.7 g/dL (12.0-16.0); Immature Granulocytes # (auto) 0.01 K/uL (0.00-0.02); Immature Granulocytes % (auto) 0.2 %; Lymphocytes # (auto) 1.04 K/uL (1.2-3.4); Lymphocytes % (auto) 21.5 %; Mean Corpuscular Hemoglobin 34.2 pg (25-34); Mean Corpuscular Volume 103.5 fL (80-100); Monocytes # (auto) 0.18 K/uL (0.11-0.59); Monocytes % (auto) 3.7 %; Neutrophils # (auto) 3.51 K/uL (1.4-6.5); Neutrophils % (auto) 72.8 %; Platelet Count 204 K/uL (130-400); RDW Coefficient of Variation 18.9 % (11.5-14.5); RDW Standard Deviation 71.5 fL (36.4-46.3); Red Blood Count 2.84 M/uL (4.2-5.4); White Blood Count 4.83 K/uL (4.8-10.8)
[2021-10-03 10:33] LABS: INR 1.1 (0.9-1.1); Partial Thromboplastin Time 27.8 Seconds (21.0-31.0); Prothrombin Time 11.2 Seconds (9.0-12.0)
[2021-10-03] MEDS ORDERED: TRANEXAMIC ACID / 0.7% NACL 1000MG/100ML BAG IV ONE (10:33)
[2021-10-03] MEDS ORDERED: VANCOMYCIN HCL 1 GM/270 ML BAG IV ONE (10:34)
[2021-10-03] MEDS ORDERED: MIDAZOLAM HCL 1 MG/ML 2ML VIAL ONE (10:38)
[2021-10-03] MEDS ORDERED: VANCOMYCIN HCL 1000MG/20ML VIAL ONE (10:46)
[2021-10-03] MEDS ORDERED: BUPIVACAINE/EPINEPHRINE 0.25% 1:200,000 30 ML VIAL ONE (10:46)
[2021-10-03] MEDS ORDERED: BUPIVACAINE LIPOSOME 1.3% 266 MG/20 ML VIAL ONE (10:47)
[2021-10-03] MEDS ORDERED: SODIUM CHLORIDE 0.9% PF 50 ML VIAL ONE (10:47)
[2021-10-03] MEDS: LACTATED RINGER'S 1,000 ML IV SCH ×2 (10:51→18:07)
[2021-10-03 10:55] LABS: Albumin Globulin Ratio 1.4 (0.9-2); Albumin Level 4.4 gm/dl (3.4-5.0); BUN Creatinine Ratio 29.1 (10-20); Bilirubin,Total 0.4 mg/dl (0.2-1.0); Calcium 8.4 mg/dl (8.5-10.1); Creatinine Clr Calc Pharmacy 60.4 ml/min; Est GFR (African American) 86.1 ml/min; Est GFR (Non-African American) 74.3 ml/min; Globulin 3.2 gm/dl (2.5-4.0); Potassium 4.2 mmol/L (3.5-5.1); Total Protein 7.6 gm/dl (6.0-8.3)
[2021-10-03 11:41] LABS: Estimated Average Glucose 123 mg/dl; Hemoglobin A1C 5.9 % (4.5-5.6)
[2021-10-03] MEDS ORDERED: PROPOFOL IV EMULSION 10 MG/ML 20 ML VIAL IV ONE ×3 (11:42→13:39)
[2021-10-03] MEDS ORDERED: DEXAMETHASONE SOD INJ 4 MG/ML VIAL ONE (13:39)
[2021-10-03] MEDS: fentaNYL citrate 100 MCG/2 ML VIAL IV PRN ×4 (14:36→15:40)
--- NOTE | 2021-10-03 14:37 | Operative Report ---
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 There were no clinical signs of infection. His gram stain revealed no organisms and no bacteria and no white cells. The frozen section of the synovium revealed less than 5 polys per high-power field Fluids 1800 cc Specimens Right knee joint fluid sent for fluid analysis along with synovium sent for frozen section. Anesthesia Type Spinal MAC Complications none Disposition Accompanied Patient To Recovery: No Indications Patient is 71-year-old female with multiple medical comorbidities who had a right knee replaced 20+ years ago. She developed a postoperative infection recently and underwent removal and placement of antibiotic spacer. She had 6 weeks of IV antibiotics and now indicated for reimplantation. Patient was strongly desiring reimplantation. I did try and talk her into keeping her antibiotic spacer as it was working reasonably well but she was adamant about having this redone to a full knee replacement. Due to the severe destruction of her distal femur we elected to place a distal femoral replacement as her bone was very osteopenic and there was not much structural bone left to fix 2. Description of Procedure Operative implants consist of: 1. Biomet OSS 7cm distal segment within the additional 3 cm diaphyseal segment attached. 2. 67mm 1piece tibia long hinged knee stem with 160 mm stem. 3. 12 x 90 mm femoral stem extension. 4. 16mm tibial bearing. The patient was taken the operating, identified, placed on the operating table supine position protectors were properly padded. IV antibiotics 5 by anesthesia team. She was given vancomycin in the due to her history of this previously methicillin-resistant staph infection. A spinal anesthetic and been implemented holding area. Sage catheter was placed in sterile fashion. Right lower extremities and prepped and draped in usual sterile fashion. The right leg was elevated exsanguinated with use of an Esmarch and the tourniquet was set at 300 mmHg. An anterior approach to the right knee was then performed using the previous incision and extending it just slightly proximally and distally. Sharp dissection Through subcutaneous tissue directly down the extensor mechanism. A medial parapatellar arthrotomy incision was made. We sent the fluid off for analysis. It showed no organisms and no WBCs. This is sent for culture as well. Some subperiosteal dissection was carried out medially. Extensive medial and lateral synovectomies were performed. The synovium looked quite benign. The fluid also looked benign and there was no signs of infection. The knee was flexed. I then measured and made a saw cut just proximal to the femoral implant to accommodate for the 7 mm distal segment. However, on doing this some of the more proximal femur splintered so we had to recut this about 3 cm more proximally to fit with the additional segmented component. The intramedullary dowel was then removed. The femur was then prepared for a 10 cm distal segment. Previously, the entire distal femur was skeletonized and removed. Once the femur was prepared attention drawn back to the tibia. Tibia was cleaned of all soft tissues. I then used an osteotome to break up some of the cement and then remove the polyethylene. I then used the osteotome and a drill to remove the additional antibiotic spacer. The intramedullary dowel was removed. We then prepared the tibia for a a 67 mm 1 piece along cemented stem. Once this was prepared we placed the tibial tray and the femoral trial and the 16mm insert fit most appropriately. Everything fit quite nicely. We elect to place these implants. All trial implants were removed. I did take a small cement restrictor in place in the femur. I did not place a cement restrictor in the tibia as it was very tight and I was afraid it would get the jam before I could get it for Fornoff distal. We irrigated the wound extensively. Double batch Palacos G cement was mixed with 2 g of vancomycin. I then injected the canals with the cement and then placed the implants. The knee was held in full extension total cement hardened. Once this was complete the 16mm insert was placed and secured. The knee was then trialed and tracked appropriately. I injected locally with 100 cc of a combination of 50 cc of quarter percent Marcaine with epi, 30 cc normal saline, and 20 cc of Exparel. The tourniquet was let down for final tourniquet time of 106 minutes. Hemostasis assured with electrocautery. I then placed a gram of vancomycin in the wound. The extensor mechanism closed with #1 PDS suture in running fashion. The subcutaneous tissue then closed with 2 Dexon suture in buried interrupted fashion skin was closed skin rochelle. Leg was then cleaned and dried and sterile dressing was Xeroform, 4 x 4's, sterile cast padding, Anant bandage were applied. Patient transferred to the recovery room in stable condition. Patient tolerated procedure well and there were no complications. Edmund Baker, my physician assistant manager airside operations, was present for the entire procedure. His assistance was essential and required for appropriate patient positioning, prepping and draping, surgical exposure, performing the technical details of the operation, placement the implants, closure of the wound, and placement of the sterile bandage. I attest to the content of the Intraoperative Record and any orders documented therein. Any exceptions are noted below.
--- NOTE | 2021-10-03 14:46 | XRay Report ---
XR knee RT 1 or 2V routine HISTORY: 71 years-old Female Surgical Post Op right knee total joint arthroplasty COMPARISON: Knee radiographs 08/16/2021 TECHNIQUE: 2 views of the right knee FINDINGS: Right knee arthroplasty revision with interval placement of a hinged arthroplasty with elongated tibi al and femoral stems. Demineralized appearance of the bones. Partially imaged right hip arthroplasty. Anterior midline skin rochelle are noted along with expected postoperative soft tissue swelling with deep tissue air. IMPRESSION: Satisfactory alignment of the right knee total joint arthroplasty. ACT 112: Negative or not required by law. The above report was generated using voice recognition software. It may contain grammatical, syntax o r spelling errors. Electronically signed by: Jeremy Batres M.D. 10/03/2021 2:44 PM
--- NOTE | 2021-10-03 15:47 | Anesthesiology Progress Note ---
Date of Service October 03, 2021 Anesthesia Post Procedure Vital Signs Vital Signs: Temp Pulse Pulse Resp BP Pulse Ox 10/03/21 15:25 70 16 147/57 H 96 10/03/21 15:05 36.5 C 69 17 100/78 96 10/03/21 14:55 68 17 149/59 H 96 10/03/21 14:45 68 17 132/51 L 100 10/03/21 14:35 67 13 143/53 H 100 10/03/21 14:25 71 20 151/73 H 100 10/03/21 14:15 36.2 C L 73 15 127/78 100 10/03/21 10:15 36.7 C 65 18 145/60 H 100 Transfer of Care Handoff Completed per policy Notes Mental Status: alert / awake / arousable Patient Amnestic to Procedure: Yes Nausea / Vomiting: adequately controlled Pain: adequately controlled Airway Patency, RR, SpO2: stable & adequate BP & HR: stable & adequate Hydration State: stable & adequate Neuraxial Anesthesia: was administered and sensory block is resolving Anesthetic Complications: no major complications apparent and Pt Satisfied with anesthetic care Notes: The patient is awake and comfortable. Her preoperative BSG was in the 50s to 60s so she was 25 ml of D50 IV. She then received a second dose of D50 and a dose of dexamethasone in the OR. Her postoperative BSG is 92.
[2021-10-03] MEDS ORDERED: MAGNESIUM HYDROXIDE SUSP 30 ML UDC PO PRN (16:36)
[2021-10-03] MEDS ORDERED: MECLIZINE HCL 25 MG TAB PO PRN (16:36)
[2021-10-03] MEDS ORDERED: VANCOMYCIN CONSULT ACTIVE PRN (16:36)
[2021-10-03] MEDS ORDERED: GLUCOSE 10 TAB/TUBE PO PRN (16:36)
[2021-10-03] MEDS ORDERED: ALUMINUM/MAGNESIUM SUSP 30 ML UDC PO PRN (16:36)
[2021-10-03] MEDS ORDERED: METOCLOPRAMIDE HCL INJ 5 MG/ML 2 ML VIAL IV PRN (16:36)
[2021-10-03] MEDS ORDERED: DEXTROSE 50% 50 ML SYRINGE IV PRN (16:36)
[2021-10-03] MEDS ORDERED: CARBOHYDRATES FOR HYPOGLYCEMIA PO PRN (16:36)
[2021-10-03] MEDS ORDERED: GLUCAGON FOR INJ 1 MG VIAL SQ PRN (16:36)
[2021-10-03] MEDS ORDERED: NALOXONE HCL 0.4 MG/1 ML VIAL/CARP IV PRN (16:36)
[2021-10-03] MEDS ORDERED: PHARMACY GLYCEMIC MGMT CONSULT PRN (16:36)
[2021-10-03] MEDS ORDERED: bisacodyL 10 MG SUPP PR PRN (16:36)
[2021-10-03] MEDS ORDERED: FULVESTRANT 250 MG/5 ML IM SCH (16:36)
[2021-10-03] MEDS ORDERED: GLUCOSE 40% GEL 15 GM TUBE PO PRN (16:36)
[2021-10-03] MEDS ORDERED: ONDANSETRON 4 MG OD TAB PO PRN (17:12)
[2021-10-03] MEDS: SODIUM CHLORIDE 0.9% 1000ML 1,000 ML IV SCH (17:33)
[2021-10-03] MEDS: KETOROLAC TROMETHAMINE 15 MG/ML VIAL IV SCH (17:34)
[2021-10-03] MEDS: ASCORBIC ACID 500 MG TAB PO SCH (18:18)
[2021-10-03] MEDS: INSULIN ASPART PER UNIT SC SCH ×2 (18:23→20:54)
[2021-10-03] MEDS: oxyCODONE HCL IR 5 MG TAB (IMMEDIATE RELEASE) PO PRN (19:25)
[2021-10-03] MEDS ORDERED: TRANEXAMIC ACID / 0.7% NACL 1,000 MG/100 ML BAG IV SCH (20:15)
[2021-10-03] MEDS: clonazePAM 0.25 MG TAB PO SCH (20:58)
[2021-10-03] MEDS: TAPENTADOL HCL ER 50 MG TABCR PO SCH (20:58)
[2021-10-03] MEDS: GABAPENTIN 600 MG TAB PO SCH (20:58)
[2021-10-03] MEDS: DOCUSATE SODIUM 100 MG CAP PO SCH (20:58)
[2021-10-03] MEDS: ATORVASTATIN 40 MG TAB PO SCH (20:59)
[2021-10-03] MEDS: SENNA 8.6 MG TAB PO SCH (20:59)
[2021-10-03] MEDS ORDERED: INSULIN GLARGINE SOLOSTAR 100 UNITS/ML 3 ML PEN SQ SCH (21:00)
[2021-10-03] MEDS: METOPROLOL TARTRATE 25 MG TAB PO SCH (21:02)
[2021-10-03] MEDS: ACETAMINOPHEN 500 MG TAB PO SCH (21:03)
[2021-10-04] MEDS: KETOROLAC TROMETHAMINE 15 MG/ML VIAL IV SCH ×3 (00:01→12:06)
[2021-10-04] MEDS: HYDROmorphone INJ 0.5 MG/0.5 ML SYR IV PRN ×2 (00:15→14:53)
[2021-10-04] MEDS ORDERED: VANCOMYCIN HCL 1,250 MG in SODIUM CHLORIDE 0.9% 250 ML IV SCH (00:15)
[2021-10-04] MEDS: INSULIN ASPART PER UNIT SC SCH ×6 (00:16→20:59)
[2021-10-04] MEDS: SODIUM CHLORIDE 0.9% 1000ML 1,000 ML IV SCH (03:26)
[2021-10-04] MEDS: oxyCODONE HCL IR 5 MG TAB (IMMEDIATE RELEASE) PO PRN ×3 (04:02→21:00)
[2021-10-04] MEDS: LEVOTHYROXINE SODIUM 25 MCG TABLET PO SCH (05:32)
[2021-10-04] MEDS: ACETAMINOPHEN 500 MG TAB PO SCH ×3 (05:34→22:16)
[2021-10-04] MEDS ORDERED: VANCOMYCIN CONSULT ACTIVE PRN (07:18)
[2021-10-04] MEDS ORDERED: VANCOMYCIN HCL 1,250 MG in SODIUM CHLORIDE 0.9% 250 ML IV ONE (07:30)
[2021-10-04 07:36] LABS: BUN Creatinine Ratio 23.5 (10-20); Calcium 7.1 mg/dl (8.5-10.1); Creatinine Clr Calc Pharmacy 58.9 ml/min; Est GFR (African American) 83.5 ml/min; Est GFR (Non-African American) 72.1 ml/min; Potassium 4.3 mmol/L (3.5-5.1)
[2021-10-04 07:45] LABS: Hematocrit (blood only) 20.6 % (37-47); Hemoglobin 6.9 g/dL (12.0-16.0); Mean Corpuscular Hemoglobin 34.7 pg (25-34); Mean Corpuscular Hgb Conc 33.5 g/dL (32-36); Mean Corpuscular Volume 103.5 fL (80-100); Mean Platelet Volume 11.1 fL (7.4-10.4); Platelet Count 143 K/uL (130-400); RDW Coefficient of Variation 19.3 % (11.5-14.5); RDW Standard Deviation 72.4 fL (36.4-46.3); Red Blood Count 1.99 M/uL (4.2-5.4); White Blood Count 4.78 K/uL (4.8-10.8)
[2021-10-04] MEDS ORDERED: SODIUM CHLORIDE 0.9% 250 ML IV PRN (08:07)
[2021-10-04] MEDS: ASCORBIC ACID 500 MG TAB PO SCH ×2 (08:42→17:47)
[2021-10-04] MEDS: DOCUSATE SODIUM 100 MG CAP PO SCH ×2 (08:42→21:02)
[2021-10-04] MEDS: PANTOprazole 40 MG TAB PO SCH (08:43)
[2021-10-04] MEDS: CALCIUM CARBONATE 1250MG TAB PO SCH (08:45)
[2021-10-04] MEDS: THIAMINE HCL 100 MG TAB PO SCH (08:45)
[2021-10-04] MEDS: MULTIVITAMIN TAB PO SCH (08:45)
[2021-10-04] MEDS: DULoxetine HCL 30 MG CAP PO SCH (08:45)
[2021-10-04] MEDS: CHOLECALCIFEROL 1,000 UNITS 25 MCG TAB PO SCH (08:45)
[2021-10-04] MEDS: GABAPENTIN 600 MG TAB PO SCH ×2 (08:46→21:03)
[2021-10-04] MEDS: DULoxetine HCL 60 MG CAP PO SCH (08:46)
[2021-10-04] MEDS: clonazePAM 0.25 MG TAB PO SCH ×2 (08:49→21:00)
[2021-10-04] MEDS: TAPENTADOL HCL ER 50 MG TABCR PO SCH ×2 (08:50→21:00)
[2021-10-04] MEDS: dilTIAZem HCL 180 MG CAPCR PO SCH (08:56)
[2021-10-04] MEDS: METOPROLOL TARTRATE 25 MG TAB PO SCH ×2 (08:56→21:01)
[2021-10-04] MEDS ORDERED: glipiZIDE 5 MG TAB PO SCH (09:00)
[2021-10-04] MEDS ORDERED: NON-FORMULARY MEDICATION (Multivitamin tablet) PO SCH (09:00)
[2021-10-04] MEDS ORDERED: PALBOCICLIB PO SCH (09:00)
--- NOTE | 2021-10-04 09:11 | Progress Notes ---
DATE OF SERVICE: 10/04/2021 SUBJECTIVE: A 71-year-old female postop day 1 from removal of antibiotic spacer and placement of a h inged knee replacement. She is doing well. Not really having much pain this morning. No chest pain or shortness of breath. Not feeling dizzy or lightheaded. OBJECTIVE: VITAL SIGNS: Temperature is 36.7. Vital signs are stable. PHYSICAL EXAMINATION: GENERAL: Shows a pleasant, elderly female. She is sitting up in bed and looks comfortable. EXTREMITIES: Examination of the right leg reveals the leg to be well aligned. Dressing is clean, dr y and intact. She can dorsiflex and plantarflex her foot appropriately. She is neurologically intac t. LABORATORIES: Labs are pending. Culture results from the knee are pending. Gram stain revealed no WBCs, no organisms. ASSESSMENT: A 71-year-old female with multiple medical comorbidities, postoperative day ____ from re moval of antibiotic spacer and placement of hinged knee replacement. She is doing well. She is neur ologically intact. PLAN: 1. DVT prophylaxis includes thigh-high TEDs, SCDs and we will start her back on her Eliquis at a pro phylactic dose 24 hours postop for about 48 hours and then go to the therapeutic dose. 2. PT/OT. She can weight bear as tolerated in the right lower extremity. 3. Pain control, doing okay with current pain regimen. 4. Medical management as per the medicine service. 5. Disposition: She is hoping to go to [facility] for a brief rehab stay. We will have social worker working on this. Job ID: [id number]
--- NOTE | 2021-10-04 11:09 | Pharmacy Report ---
Pharmacy Vanc AUC Short Note - Date of Service October 04, 2021 - Assessment & Plan Assessment 71 year old F receiving Vancomycin post op R knee surgery and removal of antibiotic spacer. R knee wound culture pending. Day #1 of antimicrobial therapy. Plan Vancomycin * AUC/FERNANDO is the preferred PK/PD target for vancomycin * AUC guided dosing is effective and associated with decreased risk of nephrotoxicity compared to traditional trough targets * Vancomycin 1250 mg IV x1 dose given around midnight last night then another 1250 mg IV x1 given at 07:30 AM today to complete the loading dose. * Maintenance dosing Vancomycin 750 mg IV q12h will start today at 1999. * With above dosing, expect trough level of ~16 mcg/mL which is predicted to achieve target AUC/FERNANDO of 400-600 mg/L.hr and may be associated with a 12% risk of nephrotoxicity * Random Vancomycin level with AM labs ordered for: 10/06/21. Pharmacy will continue to follow and will adjust dose/frequency as necessary. Thank you.
[2021-10-04] MEDS: LACTATED RINGER'S 1,000 ML IV SCH (12:06)
--- NOTE | 2021-10-04 13:58 | Pharmacy Report ---
Pharmacy Glycemic Short Note 2 - Date of Service October 04, 2021 - Glycemic Short BSG Results (Last 24 hours): 10/03/21 10/03/21 10/03/21 14:15 17:09 20:39 Glucose POC Glucose 92 154 H 254 H 10/04/21 10/04/21 10/04/21 00:00 03:56 06:03 Glucose 145 H POC Glucose 224 H 151 H 10/04/21 10/04/21 07:55 11:58 Glucose POC Glucose 204 H 117 H OUTPATIENT ANTIDIABETIC REGIMEN: * Glipizide 5 mg PO QAM * Lantus SQ 31 units QAM * Trulicity SQ 3 mg QFriday ASSESSMENT: * 71 y/o F admitted for R knee surgery and removal of antibiotic spacer. Patient with history of Type 2 diabetes managed on Glipizide, basal insulin and Trulicity. Holding Glipizide and Trulicity while admitted. * Will use basal + bolus insulin for glycemic control. * BSGs had trended up above 200 mg/dl yesterday * Patient received 15 units of basal insulin last night. * Fasting BSG today was 145 mg/dl. * Faith was recently admitted in June. At that time, she was on a dose scale of 12-15 units of Lantus at HS and loose Novolog parameters for meals and HS. Continued with similar parameters on this admission as well. PLAN FOR INPATIENT GLYCEMIC CONTROL: * Hold outpatient diabetes medications * Basal insulin * Lantus 12-15 units dose scale based on BSG HS * Bolus insulin * NovoLog per scale ACHS or Q6hrs while NPO * Goal Range: Low 110 mg/dL - High 140 mg/dL * Correction Factor: 50 mg/dL/unit * Nutritional / Prandial insulin per carb ratio of 1 unit per 15 grams CHO consumed
[2021-10-04] MEDS: APIXABAN 2.5 MG TAB PO SCH ×2 (15:35→21:04)
--- NOTE | 2021-10-04 17:44 | Hospitalist Consultation ---
Date of Consultation October 04, 2021 Assessment & Plan (1) History of revision of total replacement of right knee joint: Mrs. oSlorzano is a 71-year-old white female with a prosthetic joint infection diagnosed 07/10. She has subsequently had removal of hardware and insertion of antibiotic spacer. She is completed 6 weeks of IV daptomycin. Underwent removal of antibiotic spacer and right knee revision on 10/03. Had an uneventful perioperative course. At this time, patient no longer needs any antibiotics Would advise PT/OT, incentive spirometry, adequate postoperative pain managementall at discretion of primary team Patient on chronic Eliquis (given history of A. fib/tachybradycardia syndrome). This has since been resumed. This will provide adequate DVT prophylaxis (2) Chronic anemia: Baseline hemoglobin around 8 (with review of old records) Patient has had multiple blood transfusions in the past Indices are elevated and she has a known history of B12 deficiency Most recent B12 level was drawn 08/07 and normal. Uncertain what level is currently She is currently receiving 1 unit of packed cells (ordered by orthopedics). Will hold off on further iron work-up as will be skewed given iron on board Patient denies melena/hematochezia. Has had colonoscopy in the past Hemoglobin not far from baseline. Drop likely postsurgical (EBL = 200 cc) (3) Tachy-monica syndrome: S/p PPM On chronic Eliquis and rate controlling medications (Cardizem, metoprolol) (4) Anticoagulant long-term use: Eliquis (5) Diabetes type 2, controlled: On insulin for sliding scale/correction dosing Pharmacy on board and managing (6) Anxiety: Continue home clonazepam, Cymbalta as prior to hospitalization (7) Metastatic breast cancer: Patient has completed IV chemo, taking chronic Ibrance Will hold Ibrance for now and would recommend withholding this medication X 2 weeks as this may impede wound healing We will continue to follow. Plan of care will be discussed with Dr. Zamorano. Further orders as warranted History of Present Illness Reason for Consultation: medical mgmt Attending Physician: Nathan Huang MD History of Present Illness Mrs. Solorzano is a 71-year-old white female with an underlying past medical history of HTN, metastatic breast CA (mets to the liver), paroxysmal atrial fibrillation, diabetes mellitus, anemia, and GERD. She was seen in consultation for medical management following removal of antibiotic spacer with right knee revision. Patient had a PJI 07/10. She had an I&D with removal of hardware (on 07/12). Her culture data showed multidrug resistant coag negative staph species sensitive to daptomycin. Completed 6 weeks of IV antibiotics. Is back for removal of antibiotic spacer and revision. Procedure performed 10/03. She had an uneventful perioperative course. Vocalizes no current complaints or concerns. Denies fevers, chills, chest pain, shortness of breath, abdominal pain, nausea or vomiting. Her hemoglobin today is 6.9. She has been ordered 1 unit of packed cells by orthopedicscurrently infusion. Her MCV is elevated and she does have a known history of B12 deficiency. She is getting B12 injections. Most recent B12 level was 08/16 and was 976. Unfortunately, her blood is already infusing thus getting further labs will be skewed. Her baseline hemoglobin seems to be between 8 and 9. She has had multiple colonoscopies in the past that were normal per patient. Last colonoscopy done 02/02 showing nonbleeding internal hemorrhoid and no repeat colonoscopy needed. Patient lives with her . She is hopeful to go to rehab following this procedure. Allergies Allergy/AdvReac Type Severity Reaction Status Date / Time metformin AdvReac Unknown Insomnia Verified 10/03/21 10:06 Home Medications Medication Instructions Recorded Confirmed Type multivitamin 1 tab PO QAM 02/04/18 10/03/21 History cholecalciferol (vitamin D3) 25 1,000 unit PO QAM 07/29/19 10/03/21 History mcg (1,000 unit) capsule (Vitamin D3) calcium 600 mg capsule 600 mg PO QAM 09/27/20 10/03/21 History levothyroxine 25 mcg tablet 37.5 mcg PO QAM #135 tab 10/24/20 10/03/21 Rx gabapentin 600 mg tablet 300 mg PO BID #60 tab 10/25/20 10/03/21 Rx thiamine HCl (vitamin B1) 100 mg 100 mg PO QAM #30 tab 01/02/21 10/03/21 Rx tablet (Vitamin B-1) syringe with needle 3 mL 25 gauge #100 ea 02/22/21 08/27/21 Rx x 1" (BD Luer-Veronica Syringe) atorvastatin 40 mg tablet 40 mg PO HS #90 tab 03/26/21 10/03/21 Rx cyanocobalamin (vitamin B-12) 1,000 mcg IM MONTHLY #1 ea 05/23/21 10/03/21 Rx 1,000 mcg/mL injection kit dulaglutide 3 mg/0.5 mL 3 mg SUBCUT WK 05/28/21 10/03/21 History subcutaneous pen injector (Trulicity) duloxetine 60 mg capsule,delayed 60 mg PO QAM 05/28/21 10/03/21 History release (Cymbalta) pen needle, diabetic 32 gauge x #100 ea 06/11/21 08/27/21 Rx 5/32" (Easy Comfort Pen Santo) blood sugar diagnostic (OneTouch #100 ea 06/20/21 08/27/21 Rx Ultra Test) palbociclib 125 mg tablet (Ibrance) 125 mg PO UD 07/06/21 10/03/21 History ondansetron HCl 4 mg tablet 4 mg PO Q8H PRN 07/11/21 10/03/21 History pantoprazole 40 mg tablet,delayed 40 mg PO QAM 07/11/21 10/03/21 History release (Protonix) insulin glargine 100 unit/mL (3 31 unit SUBCUT QPM #15 ml 07/17/21 10/03/21 Rx mL) subcutaneous pen (Basaglar KwikPen U-100 Insulin) fulvestrant 250 mg/5 mL 500 mg IM Q28D 07/27/21 10/03/21 History intramuscular syringe duloxetine 30 mg capsule,delayed 30 mg PO QAM #60 cap 08/08/21 10/03/21 Rx release (Cymbalta) diclofenac sodium 1 % topical gel 2 g TOPICAL UD PRN 08/13/21 10/03/21 History (Voltaren Arthritis Pain) OneTouch Delica Plus Lancet 33 #300 ea NS 08/15/21 08/27/21 Rx gauge (lancets) OneTouch Delica Plus Lancing #1 ea NS 08/15/21 08/27/21 Rx Device kit (lancing device with lancets) glipizide 5 mg tablet 5 mg PO QAM #90 tab 09/06/21 10/03/21 Rx apixaban 5 mg tablet (Eliquis) 5 mg PO BID #60 tab 09/10/21 10/03/21 Rx metoprolol tartrate 25 mg tablet 25 mg PO BID #60 tab 09/24/21 10/03/21 Rx acetaminophen 500 mg tablet 1,000 mg PO UD PRN 10/01/21 10/03/21 History (Tylenol Extra Strength) clonazepam 0.5 mg tablet 0.25 mg PO BID 10/01/21 10/03/21 History diltiazem HCl 360 mg capsule,24 360 mg PO QAM 10/01/21 10/03/21 History hr,extended release meclizine 25 mg tablet 25 mg PO UD PRN 10/01/21 10/03/21 History oxycodone 5 mg capsule 5 mg PO Q6H PRN #40 cap 10/01/21 10/03/21 Rx Patient History Medical History (Updated 10/04/21 @ 17:57 by Rebeca Mahmood PA-C) Anemia h/o blood transfusions Anxiety Aortic stenosis Mild aortic stenosis (MERLENE 1.6cm2; MG 7.8mmHg) per 12/2019 echo Atrial fibrillation Cervical spine disease Full ROM per pt Chronic pain Degenerative disc disease Depression Diabetes mellitus, type 2 IDDM Gastroesophageal reflux disease controlled, stable per pt Hx of cardiac pacemaker Implanted 2019 (tachy-monica syndrome), Medtronic device Follows with Dr. Ramires Hypercholesterolemia Hypothyroidism Infiltrating ductal carcinoma of left breast Initial Dx 2015- s/p lumpectomy, XRT and anastrozole Metastatic breast cancer 03/2020, follows with [facility] Liver mass Pt denies but 05/17/20 PET scan shows 2.5 right hepatic lobe mass consistent with known hepatic metastasis Metastatic lung carcinoma Neuropathy Obstructive sleep apnea "Resolved" s/p gastric bypass (? retested) Peripheral neuropathy Hands (B/L CTS) Surgical History H/O bilateral hip replacements History of carpal tunnel surgery of left wrist 06/2021 History of carpal tunnel surgery of right wrist History of section x1 History of colonoscopy History of evacuation of hematoma Hematoma right breast and right chest 08/31/13 Dr. Shah History of surgery Right knee TKA revision with spacer (07/11/2021): SAB at L3-4 (x2 attempts) + PNB at [facility]. No issues noted per post-op anesthesia progress note. History of total knee arthroplasty R/L Port-A-Cath in place Insertion of Mediport Right Subclavian Dr. Shah 06/13/2020 CURRENT RIGHT SIDE Status post appendectomy Status post arthroscopy of left shoulder Status post gastric bypass for obesity Status post laparoscopic cholecystectomy Status post lumbar spine surgery for decompression of spinal cord Status post panniculectomy Status post partial mastectomy of left breast Status post repair of ventral hernia Status post total abdominal hysterectomy and bilateral salpingo-oophorectomy Family History Unknown Breast cancer Emphysema lung Mother Diabetes Heart disease Father Heart disease Other No family history of adverse response to anesthesia Denies family history of Ovarian cancer Prostate cancer Coronary heart disease Colorectal cancer Social History (Updated 09/18/21 @ 09:58 by Bessie Acevedo MA) Smoking Status: Former smoker Tobacco Type: Cigarettes packs per day: 2; Smoking End Date: 14 YR AGO; Second Hand Exposure: No; Do You Dip or Chew Tobacco: No; Hx Alcohol Use: Yes (A COUPLE A YR) Alcohol type: beer and wine Hx Substance Use: No Preferred Language: Greenlandic Communication Ability: Effective Visual Impairment: No Limitations Hearing Ability: Normal Sports Director Required: No Beliefs That Will Affect Care: None marital status: Current Living Situation: Spouse current occupational status: retired Other Information That Helps Us Care for You: No Feels Safe at Home: Yes Childhood Exposure to Second-Hand Smoke: Yes caffeine: Yes Dental Care, Regularly: No Physical Activity Frequency: 1-2 Times per Week Seatbelt Use: always Sunscreen Use: No Assistive Devices: Walker Assistive Devices Comment: ROLLING WALKER Review of Systems Review of Systems: All systems reviewed and are unremarkable except as noted in HPI and below Denies fevers, chills, headache, nasal congestion, sore throat, cough, chest pain, shortness of breath, palpitations, orthopnea, PND, abdominal pain, nausea, vomiting, diarrhea, constipation, dysuria, hematuria, frequency, back pain, joint pain or swelling, easy bruising or bleeding, skin lesions or rashes. Physical Exam Physical Exam: General: Resting comfortably in her hospital bed. NAD. HEENT: Head is AT/NC. Buccal mucosa is moist and pink Neck: No JVD. Negative hepatojugular reflex Cardiac:RRR with 2/6 STEF Lungs: CTA without W/R/R Abdomen: Normoactive X4. Soft and nontender in all quadrants. Extremities: Right knee with Anant wrap. No obvious indwelling drain. Peripheral pulses intact. Neuro: A&O X4. Cranial nerves II through XII are grossly intact. No focal neuro deficits Skin: No obvious skin lesions or rashes Psych: Appropriate affect. Pleasant and cooperative Results & Data Results & Data ([facility]) Vital Signs (Past 12 Hours) Vital Signs Temp Pulse Pulse Resp BP BP Pulse Ox 10/04/21 15:17 36.4 C L 60 20 104/59 L 100 10/04/21 12:11 36.9 C 63 20 126/72 96 10/04/21 12:02 36.8 C 66 22 114/75 99 10/04/21 10:38 36.6 C 68 20 107/65 99 10/04/21 09:38 37 C 70 18 111/56 L 93 10/04/21 09:31 36.8 C 68 18 113/66 98 10/04/21 09:08 36.8 C 69 18 110/67 99 10/04/21 08:53 36.7 C 74 20 99 10/04/21 08:35 36.8 C 74 20 113/41 L 99 10/04/21 07:04 36.7 C 72 18 101/61 97 Laboratory Results 10/04/21 06:03 10/04/21 06:03 PG Care Time/CCT Total # of Minutes Spent Total Time Spent with Patient: Total time spent is greater than 50% in coordination of care (as documented) at patient's floor/unit and/or counseling patient: Coding Level of Care Code 17136 Inpt Consult Level 5 Diagnoses Chronic anemia D64.9 Tachy-monica syndrome I49.5 Anticoagulant long-term use Z79.01 Diabetes type 2, controlled E11.9 Anxiety F41.9 History of revision of total replacement of right knee joint Z96.651 Metastatic breast cancer C50.919
[2021-10-04] MEDS: HEPARIN 100 UNIT/ML 5ML FLUSH FLUSH PRN (18:33)
[2021-10-04] MEDS: VANCOMYCIN HCL 750 MG in SODIUM CHLORIDE 0.9% 250 ML IV SCH (20:39)
[2021-10-04] MEDS: INSULIN GLARGINE SOLOSTAR 100 UNITS/ML 3 ML PEN SQ SCH (20:58)
[2021-10-04] MEDS: ATORVASTATIN 40 MG TAB PO SCH (21:01)
[2021-10-04] MEDS: SENNA 8.6 MG TAB PO SCH (21:01)
[2021-10-05] MEDS: HYDROmorphone INJ 0.5 MG/0.5 ML SYR IV PRN ×2 (02:21→16:21)
[2021-10-05] MEDS: ACETAMINOPHEN 500 MG TAB PO SCH ×3 (06:05→22:22)
[2021-10-05] MEDS: LEVOTHYROXINE SODIUM 25 MCG TABLET PO SCH (06:06)
[2021-10-05] MEDS: oxyCODONE HCL IR 5 MG TAB (IMMEDIATE RELEASE) PO PRN (06:09)
[2021-10-05 06:52] LABS: Hematocrit (blood only) 22.3 % (37-47); Hemoglobin 7.6 g/dL (12.0-16.0); Mean Corpuscular Hemoglobin 33.5 pg (25-34); Mean Corpuscular Hgb Conc 34.1 g/dL (32-36); Mean Corpuscular Volume 98.2 fL (80-100); Mean Platelet Volume 11.2 fL (7.4-10.4); Platelet Count 102 K/uL (130-400); RDW Coefficient of Variation 21.4 % (11.5-14.5); RDW Standard Deviation 77.3 fL (36.4-46.3); Red Blood Count 2.27 M/uL (4.2-5.4); White Blood Count 3.21 K/uL (4.8-10.8)
[2021-10-05 06:53] LABS: Anisocytosis Present; Basophils # (auto) 0.04 K/uL (0-0.2); Basophils % (auto) 1.2 %; Eosinophils # (auto) 0.04 K/uL (0-0.5); Eosinophils % (auto) 1.2 %; Immature Granulocytes # (auto) 0.01 K/uL (0.00-0.02); Immature Granulocytes % (auto) 0.3 %; Lymphocytes # (auto) 0.89 K/uL (1.2-3.4); Lymphocytes % (auto) 27.7 %; Monocytes # (auto) 0.09 K/uL (0.11-0.59); Monocytes % (auto) 2.8 %; Neutrophils # (auto) 2.14 K/uL (1.4-6.5); Neutrophils % (auto) 66.8 %; Ovalocytes 1+
[2021-10-05] MEDS ORDERED: SODIUM CHLORIDE 0.9% 250 ML IV PRN (07:43)
[2021-10-05] MEDS ORDERED: diphenhydrAMINE Capsule 25 MG CAP PO ONE (07:43)
[2021-10-05] MEDS ORDERED: ACETAMINOPHEN 325 MG TAB PO ONE (07:43)
[2021-10-05] MEDS: ASCORBIC ACID 500 MG TAB PO SCH ×2 (07:51→18:42)
[2021-10-05] MEDS: APIXABAN 2.5 MG TAB PO SCH ×2 (07:52→20:47)
[2021-10-05] MEDS: VANCOMYCIN HCL 750 MG in SODIUM CHLORIDE 0.9% 250 ML IV SCH ×2 (07:53→20:45)
[2021-10-05] MEDS: CALCIUM CARBONATE 1250MG TAB PO SCH (07:59)
[2021-10-05] MEDS: CHOLECALCIFEROL 1,000 UNITS 25 MCG TAB PO SCH (08:00)
[2021-10-05] MEDS: DOCUSATE SODIUM 100 MG CAP PO SCH ×2 (08:02→20:48)
[2021-10-05] MEDS: dilTIAZem HCL 180 MG CAPCR PO SCH (08:02)
[2021-10-05] MEDS: DULoxetine HCL 30 MG CAP PO SCH (08:03)
[2021-10-05] MEDS: DULoxetine HCL 60 MG CAP PO SCH (08:03)
[2021-10-05] MEDS: GABAPENTIN 600 MG TAB PO SCH ×2 (08:04→20:46)
[2021-10-05] MEDS: METOPROLOL TARTRATE 25 MG TAB PO SCH ×2 (08:06→20:46)
[2021-10-05] MEDS: PANTOprazole 40 MG TAB PO SCH (08:07)
[2021-10-05] MEDS: MULTIVITAMIN TAB PO SCH (08:07)
[2021-10-05] MEDS: THIAMINE HCL 100 MG TAB PO SCH (08:08)
[2021-10-05] MEDS: clonazePAM 0.25 MG TAB PO SCH ×2 (08:10→20:48)
[2021-10-05] MEDS: TAPENTADOL HCL ER 50 MG TABCR PO SCH (09:29)
[2021-10-05] MEDS: INSULIN ASPART PER UNIT SC SCH ×4 (09:30→20:49)
[2021-10-05] MEDS ORDERED: traMADol HCL 50 MG TABLET PO PRN ×2 (11:03→16:53)
--- NOTE | 2021-10-05 11:17 | Pharmacy Report ---
Pharmacy Glycemic Short Note 2 - Date of Service October 05, 2021 - Glycemic Short BSG Results (Last 24 hours): 10/04/21 10/04/21 10/04/21 11:58 17:04 20:38 POC Glucose 117 H 78 178 H 10/05/21 08:01 POC Glucose 91 OUTPATIENT ANTIDIABETIC REGIMEN: * Glipizide 5 mg PO QAM * Lantus SQ 31 units QAM * Trulicity SQ 3 mg QFriday ASSESSMENT: 10/05: * Patient received total 28 units of insulin yesterday; 15 units basal + 13 units bolus. * BSGs yesterday were 295-572-10-178 mg/dl. Lowest BSG at dinner time due to patient receiving 6 units at breakfast with a stress of 2 coverage. Correction factor was loosened at lunch. * Since dinner BSG trended up to 178 mg/dl, carb ratio tightened slightly today AM. Background 10/04/21: * 71 y/o F admitted for R knee surgery and removal of antibiotic spacer. Patient with history of Type 2 diabetes managed on Glipizide, basal insulin and Trulicity. Holding Glipizide and Trulicity while admitted. * Will use basal + bolus insulin for glycemic control. * BSGs had trended up above 200 mg/dl yesterday * Patient received 15 units of basal insulin last night. * Fasting BSG today was 145 mg/dl. * Faith was recently admitted in June. At that time, she was on a dose scale of 12-15 units of Lantus at HS and loose Novolog parameters for meals and HS. Continued with similar parameters on this admission as well. PLAN FOR INPATIENT GLYCEMIC CONTROL: * Hold outpatient diabetes medications * Basal insulin * Lantus 12-15 units dose scale based on BSG HS * Bolus insulin * NovoLog per scale ACHS or Q6hrs while NPO * Goal Range: Low 110 mg/dL - High 140 mg/dL * Correction Factor: 50 mg/dL/unit * Nutritional / Prandial insulin per carb ratio of 1 unit per 13 grams CHO consumed
[2021-10-05] MEDS: HEPARIN 100 UNIT/ML 5ML FLUSH FLUSH PRN (11:31)
--- NOTE | 2021-10-05 11:53 | Hospitalist Progress Note ---
Date of Service October 05, 2021 Assessment & Plan (1) History of revision of total replacement of right knee joint: Plan: Mrs. Solorzano is a 71-year-old white female with a prosthetic joint infection diagnosed 07/10. She has subsequently had removal of hardware and insertion of antibiotic spacer. She is completed 6 weeks of IV daptomycin. Underwent removal of antibiotic spacer and right knee revision on 10/03. Had an uneventful perioperative course. At this time, patient no longer needs any antibiotics (other than those given empirically in the perioperative course) Would advise PT/OT, incentive spirometry, adequate postoperative pain managementall at discretion of primary team --It is noted patient to be excessively somnolent after receiving morning dose of scheduled Nucynta. Would avoid opioid medications. --I have stopped Nucynta and as needed oxycodone and changed to as needed Ultram--this was discussed with orthopedics Patient on chronic Eliquis (given history of A. fib/tachybradycardia syndrome). This has since been resumed. This will provide adequate DVT prophylaxis (2) Chronic anemia: Plan: Baseline hemoglobin around 8 (with review of old records) Patient has had multiple blood transfusions in the past Indices are elevated and she has a known history of B12 deficiency Most recent B12 level was drawn 08/07 and normal. Uncertain what level is currently In addition, patient on chronic chemotherapy which is likely contributing to her chronic anemia Received 1 unit packed RBCs on 10/04 (ordered by orthopedics). We will provide an additional unit today with an attempt to get her hemoglobin back to baseline as she would benefit from the oxygen carrying capacity of blood Patient denies melena/hematochezia. Has had colonoscopy in the past Hemoglobin not far from baseline. Drop likely postsurgical/dilutional = 200 cc/ FB + 5L) (3) Tachy-monica syndrome: Plan: S/p PPM and 100% paced On chronic Eliquis and rate controlling medications (Cardizem, metoprolol) (4) Anticoagulant long-term use: Plan: on Eliquis (5) Diabetes type 2, controlled: Plan: On insulin for sliding scale/correction dosing Pharmacy on board and managing (6) Anxiety: Plan: Continue home clonazepam, Cymbalta as prior to hospitalization (7) Metastatic breast cancer: Plan: Patient has completed IV chemo, taking chronic Ibrance holding Ibrance. Her 21-day cycle ended on 09/30. I did reach out to oncology who recommends withholding starting her next course for 2 weeks (pushback 1 week) as to not impede wound healing/increase risk for infection Plan: Will continue to follow. Plan of care will be discussed with Dr. Zamorano. Further orders as warranted Admission and Anticipated Discharge Date Admission Date: October 03, 2021 Subjective Patient seen on daily rounds today. Vocalizes no complaints or concerns. Denies fevers, chills, chest pain, shortness of breath, abdominal pain, nausea or vomiting. Pain is adequately controlled. Still has a Sage catheter. Initially refused to have this removed but when educated, agreeable. Nursing reports throughout the morning, patient became excessively somnolent and difficult to arouse. She is receiving scheduled Nucynta for pain control. Review of Systems Review of Systems: All systems reviewed and are unremarkable except as noted in HPI and below Denies fevers, chills, headache, nasal congestion, sore throat, cough, chest pain, shortness of breath, palpitations, orthopnea, PND, abdominal pain, nausea, vomiting, diarrhea, constipation, dysuria, hematuria, frequency, back pain, joint pain or swelling, easy bruising or bleeding, skin lesions or rashes. Physical Exam Physical Exam: General: Resting comfortably in her hospital bed. NAD. HEENT: Head is AT/NC. Buccal mucosa is moist and pink Neck: No JVD. Negative hepatojugular reflex Cardiac: RRR with 2/6 STEF Lungs: CTA without W/R/R Abdomen: Normoactive X4. Soft and nontender in all quadrants. Extremities: Right knee with Anant wrap. No obvious indwelling drain. Peripheral pulses intact. Neuro: A&O X4. Cranial nerves II through XII are grossly intact. No focal neuro deficits Skin: No obvious skin lesions or rashes Psych: Appropriate affect. Pleasant and cooperative Results & Data Results & Data ([facility]) Vital Signs (Past 12 Hours) Vital Signs Temp Pulse Pulse Resp BP BP Pulse Ox 10/05/21 10:45 36.5 C 60 18 132/80 100 10/05/21 09:40 36.5 C 67 16 116/72 10/05/21 09:25 36.4 C L 60 18 104/56 L 95 10/05/21 09:22 36.6 C 60 18 108/70 98 10/05/21 09:06 36.6 C 60 18 122/74 10/05/21 08:11 36.8 C 79 16 133/69 95 Laboratory Results 10/05/21 05:25 10/04/21 06:03 PG Care Time/CCT Total # of Minutes Spent Total Time Spent with Patient: Total time spent is greater than 50% in coordination of care (as documented) at patient's floor/unit and/or counseling patient: Coding Level of Care Code 22919 Inpt Consult Level 4 Diagnoses History of revision of total replacement of right knee joint Z96.651 Chronic anemia D64.9 Tachy-monica syndrome I49.5 Anticoagulant long-term use Z79.01 Diabetes type 2, controlled E11.9 Anxiety F41.9 Metastatic breast cancer C50.919
[2021-10-05] MEDS: LACTATED RINGER'S 1,000 ML IV SCH (16:24)
--- NOTE | 2021-10-05 18:10 | Progress Notes ---
DATE OF NOTE: 10/05/2021. SUBJECTIVE: A 71-year-old white female now postop day 2 from a resection of antibiotic spacer and pl acement of hinged knee replacement. She is doing well. Pain has been pretty well controlled. Corinna anil is going okay. No chest pain or shortness of breath. She did get a unit of blood yesterday. OBJECTIVE: VITAL SIGNS: Temperature is 36.6. Vital signs are stable. GENERAL: Shows a pleasant, elderly female. She is sitting up in her bedside chair, looks comfortabl e. EXTREMITIES: Examination of the right leg reveals the dressing to be clean, dry and intact. She can dorsiflex and plantarflex her foot appropriately. Cannot quite do a straight leg raise. LABORATORY: Hemoglobin 7.6. Hematocrit 22.3. ASSESSMENT: A 71-year-old female with multiple medical comorbidities, postop day 2 from a resection of antibiotic spacer and placement of hinged knee replacement. She is doing pretty well. Pain is co ntrolled. She is anemic, but without symptoms. Her hemoglobin lives around 8 and a best 9. PLAN: 1. DVT prophylaxis include thigh-high TEDs, SCDs, and she is also on prophylactic Eliquis right now. We will increase her to a full dose in probably 48 and more hours. 2. PT, OT, weightbear as tolerated. Right total knee protocol. 3. Pain control, doing okay with current pain regimen. 4. Anemia. She is asymptomatic. I do not think she needs any more blood. She was given another un it by medicine today, but I do not think she needs more unless she develops symptoms. 5. Disposition: She is hoping to go to [facility] for a brief rehab stay. Job ID: [id number]
[2021-10-05] MEDS: SENNA 8.6 MG TAB PO SCH (20:45)
[2021-10-05] MEDS: ATORVASTATIN 40 MG TAB PO SCH (20:47)
[2021-10-05] MEDS: traMADol HCL 50 MG TABLET PO PRN (20:49)
[2021-10-05] MEDS: INSULIN GLARGINE SOLOSTAR 100 UNITS/ML 3 ML PEN SQ SCH (21:02)
[2021-10-06] MEDS: traMADol HCL 50 MG TABLET PO PRN ×3 (06:16→20:08)
[2021-10-06] MEDS: ACETAMINOPHEN 500 MG TAB PO SCH ×3 (06:17→21:35)
[2021-10-06] MEDS: LEVOTHYROXINE SODIUM 25 MCG TABLET PO SCH (06:17)
[2021-10-06 06:22] LABS: Hematocrit (blood only) 25.6 % (37-47); Hemoglobin 8.7 g/dL (12.0-16.0); Mean Corpuscular Hemoglobin 33.3 pg (25-34); Mean Corpuscular Volume 98.1 fL (80-100); Mean Platelet Volume 11.1 fL (7.4-10.4); Platelet Count 105 K/uL (130-400); RDW Coefficient of Variation 20.3 % (11.5-14.5); RDW Standard Deviation 71.8 fL (36.4-46.3); Red Blood Count 2.61 M/uL (4.2-5.4); White Blood Count 2.63 K/uL (4.8-10.8)
[2021-10-06 07:07] LABS: BUN Creatinine Ratio 21.3 (10-20); Calcium 7.8 mg/dl (8.5-10.1); Creatinine Clr Calc Pharmacy 78.2 ml/min; Est GFR (African American) 104.2 ml/min; Est GFR (Non-African American) 89.9 ml/min; Potassium 4.1 mmol/L (3.5-5.1)
[2021-10-06] MEDS: DOCUSATE SODIUM 100 MG CAP PO SCH ×2 (08:07→21:35)
[2021-10-06] MEDS: clonazePAM 0.25 MG TAB PO SCH ×2 (08:07→21:35)
[2021-10-06] MEDS: THIAMINE HCL 100 MG TAB PO SCH (08:07)
[2021-10-06] MEDS: DULoxetine HCL 30 MG CAP PO SCH (08:07)
[2021-10-06] MEDS: VANCOMYCIN HCL 750 MG in SODIUM CHLORIDE 0.9% 250 ML IV SCH (08:07)
[2021-10-06] MEDS: PANTOprazole 40 MG TAB PO SCH (08:08)
[2021-10-06] MEDS: CALCIUM CARBONATE 1250MG TAB PO SCH (08:08)
[2021-10-06] MEDS: ASCORBIC ACID 500 MG TAB PO SCH ×2 (08:08→18:04)
[2021-10-06] MEDS: MULTIVITAMIN TAB PO SCH (08:08)
[2021-10-06] MEDS: METOPROLOL TARTRATE 25 MG TAB PO SCH ×2 (08:08→21:35)
[2021-10-06] MEDS: dilTIAZem HCL 180 MG CAPCR PO SCH (08:08)
[2021-10-06] MEDS: CHOLECALCIFEROL 1,000 UNITS 25 MCG TAB PO SCH (08:08)
[2021-10-06] MEDS: GABAPENTIN 600 MG TAB PO SCH ×2 (08:09→21:35)
[2021-10-06] MEDS: APIXABAN 2.5 MG TAB PO SCH ×2 (08:09→21:35)
[2021-10-06] MEDS: DULoxetine HCL 60 MG CAP PO SCH (08:09)
[2021-10-06] MEDS: INSULIN ASPART PER UNIT SC SCH ×4 (09:02→21:28)
[2021-10-06] MEDS: HYDROmorphone INJ 0.5 MG/0.5 ML SYR IV PRN (09:50)
[2021-10-06] MEDS: HEPARIN 100 UNIT/ML 5ML FLUSH FLUSH PRN (09:51)
--- NOTE | 2021-10-06 10:17 | Progress Notes ---
DATE OF NOTE: 10/06/2021. SUBJECTIVE: A 71-year-old female now postop day 3 from a revision of removal of an antibiotic spacer and placement of a hinged knee replacement. She is doing pretty well. Pain is controlled. Denies any chest pain or shortness of breath. She is just kind of waiting for placement. She is hoping to go to [facility] ([facility] OBJECTIVE: VITAL SIGNS: Temperature 36.7. Vital signs are stable. GENERAL: Shows a pleasant, elderly female. Sitting up in bed eating breakfast. She looks comfortab le. EXTREMITIES: Examination of the right leg reveals the incision to be clean, dry and intact. Minimal drainage. A fairly mild swelling. She can dorsiflex and plantarflex her foot appropriately. She i s neurologically intact. LABORATORY DATA: Hemoglobin 8.7. Hematocrit 25.6. Electrolytes are stable. Culture results are no growth to date. ASSESSMENT: A 71-year-old female, now 3 days out from removal of antibiotic spacer and placement of a hinged knee replacement. She is doing quite well. Her pain is controlled. Her hemoglobin stable. She has a chronically low hemoglobin. Her cultures have no growth. PLAN: 1. DVT prophylaxis include thigh-high TEDs, SCDs and back on the Eliquis. We will likely switch her to a full dose starting tomorrow. 2. PT, OT, weightbear as tolerated. Right total knee protocol. 3. Pain control, doing okay with current pain regimen. 4. Antibiotics. I am going to continue on this vancomycin until the culture results come back. We will likely put her on 3 months of postoperative oral antibiotics upon discharge. 5. Disposition: She is hoping to go to [facility] ([facility] Apparently they can maybe take her next week. Job ID: [id number]
--- NOTE | 2021-10-06 10:46 | Pharmacy Report ---
Pharmacy Vanc AUC Short Note - Date of Service October 06, 2021 - Assessment & Plan Assessment * 71 year old F receiving vancomycin for treatment of septic joint. * Per Dr. Huang's note today: continue on this vancomycin until the culture results come back. We will likely put her on 3 months of postoperative oral antibiotics upon discharge. Vancomycin * AUC/FERNANDO is the preferred PK/PD target for vancomycin * AUC guided dosing is effective and associated with decreased risk of nephrotoxicity compared to traditional trough targets * Random level this AM of 16.5 mcg/mL was NOT a trough level, but is associated with a trough level of 12.1 mcg/mL and is predicted to achieve an AUC/FERNANDO of 386 mg/L/hr which is below the target AUC/FERNANDO of 400-600 mg/L/hr * Will increase dose Plan * Increase vancomycin 1000 mg IV q12h * Repeat *random* level with Am labs on 10/08 Pharmacy will continue to follow and will adjust dose/frequency as necessary. Thank you.
--- NOTE | 2021-10-06 12:41 | Hospitalist Progress Note ---
Date of Service October 06, 2021 Assessment & Plan (1) History of revision of total replacement of right knee joint: Plan: Mrs. Solorzano is a 71-year-old white female with a prosthetic joint infection diagnosed 07/10. She has subsequently had removal of hardware and insertion of antibiotic spacer. She is completed 6 weeks of IV daptomycin. Underwent removal of antibiotic spacer and right knee revision on 10/03. Had an uneventful perioperative course. At this time, patient no longer needs any antibiotics (other than those given empirically in the perioperative course). --She has no indwelling hardware and her intraoperative culture data is showing no growth; however, at discretion of primary team Would advise PT/OT, incentive spirometry, adequate postoperative pain managementall at discretion of primary team --It is noted patient to be excessively somnolent after receiving morning dose of scheduled Nucynta. Would avoid opioid medications. --I have stopped Nucynta and as needed oxycodone and changed to as needed Ultram--this was discussed with orthopedics Patient on chronic Eliquis (given history of A. fib/tachybradycardia syndrome). This has since been resumed. This will provide adequate DVT prophylaxis (2) Chronic anemia: Plan: Baseline hemoglobin around 8 (with review of old records) Patient has had multiple blood transfusions in the past Indices are elevated and she has a known history of B12 deficiency Most recent B12 level was drawn 08/07 and normal. Uncertain what level is currently (already receiving blood transfusion when seen by medicine) In addition, patient on chronic chemotherapy which is likely contributing to her chronic anemia S/p total of 2 units packed RBCs Patient denies melena/hematochezia. Has had colonoscopy in the past The chronic anemia is likely chemotherapy-induced with acute exacerbation due to dilutional drop Follow-up hemoglobin back to baseline (3) Tachy-monica syndrome: Plan: S/p PPM and mostly paced On chronic Eliquis and rate controlling medications (Cardizem, metoprolol) (4) Anticoagulant long-term use: Plan: on Eliquis (5) Diabetes type 2, controlled: Plan: On insulin for sliding scale/correction dosing Pharmacy on board and managing (6) Anxiety: Plan: Continue home clonazepam, Cymbalta as prior to hospitalization (7) Metastatic breast cancer: Plan: Patient has completed IV chemo, taking chronic Ibrance holding Ibrance. Her 21-day cycle ended on 09/30. I did reach out to oncology who recommends withholding starting her next course for 2 weeks (pushback 1 week) as to not impede wound healing/increase risk for infection. This would be resumption of her next cycle on 10/14 instead of 10/07 Plan: At this point, medicine will sign off but please do not hesitate to reconsult should a problem arise. Thank you for allowing us to participate in the care of this patient. Signout given to Dr. Huang (attending provider) Admission and Anticipated Discharge Date Admission Date: October 05, 2021 Subjective Patient seen on daily rounds today. Vocalizes no significant complaints or concerns. Doing well with therapy. Plan is for short rehab stay Review of Systems Review of Systems: All systems reviewed and are unremarkable except as noted in HPI and below Denies fevers, chills, headache, nasal congestion, sore throat, cough, chest pain, shortness of breath, palpitations, orthopnea, PND, abdominal pain, nausea, vomiting, diarrhea, constipation, dysuria, hematuria, frequency, back pain, joint pain or swelling, easy bruising or bleeding, skin lesions or rashes. Physical Exam Physical Exam: General: Resting comfortably in her hospital bed. NAD. HEENT: Head is AT/NC. Buccal mucosa is moist and pink Neck: No JVD. Negative hepatojugular reflex Cardiac: RRR with 2/6 STEF Lungs: CTA without W/R/R Abdomen: Normoactive X4. Soft and nontender in all quadrants. Extremities: Right knee with Anant wrap. No obvious indwelling drain. Peripheral pulses intact. Neuro: A&O X4. Cranial nerves II through XII are grossly intact. No focal n euro deficits Skin: No obvious skin lesions or rashes Psych: Appropriate affect. Pleasant and cooperative Results & Data Results & Data ([facility]) Vital Signs (Past 12 Hours) Vital Signs Temp Pulse Resp BP Pulse Ox 10/06/21 08:02 36.7 C 69 16 134/60 97 Diagnostic Findings 10/06/21 06:05 10/06/21 06:05 PG Care Time/CCT Total # of Minutes Spent Total Time Spent with Patient: Total time spent is greater than 50% in coordination of care (as documented) at patient's floor/unit and/or counseling patient: Coding Level of Care Code 82242 Inpt Consult Level 3 Diagnoses History of revision of total replacement of right knee joint Z96.651 Chronic anemia D64.9 Tachy-monica syndrome I49.5 Anticoagulant long-term use Z79.01 Diabetes type 2, controlled E11.9 Anxiety F41.9 Metastatic breast cancer C50.919
[2021-10-06] MEDS: VANCOMYCIN HCL 1,000 MG in SODIUM CHLORIDE 0.9% 250 ML IV SCH (20:11)
[2021-10-06] MEDS: INSULIN GLARGINE SOLOSTAR 100 UNITS/ML 3 ML PEN SQ SCH (21:32)
[2021-10-06] MEDS: SENNA 8.6 MG TAB PO SCH (21:36)
[2021-10-06] MEDS: ATORVASTATIN 40 MG TAB PO SCH (21:41)
[2021-10-07] MEDS: traMADol HCL 50 MG TABLET PO PRN ×2 (05:41→13:24)
[2021-10-07] MEDS: ACETAMINOPHEN 500 MG TAB PO SCH ×3 (05:41→20:46)
[2021-10-07] MEDS: LEVOTHYROXINE SODIUM 25 MCG TABLET PO SCH (05:42)
[2021-10-07] MEDS: DULoxetine HCL 30 MG CAP PO SCH (08:07)
[2021-10-07] MEDS: METOPROLOL TARTRATE 25 MG TAB PO SCH ×2 (08:07→20:28)
[2021-10-07] MEDS: dilTIAZem HCL 180 MG CAPCR PO SCH (08:07)
[2021-10-07] MEDS: THIAMINE HCL 100 MG TAB PO SCH (08:07)
[2021-10-07] MEDS: clonazePAM 0.25 MG TAB PO SCH ×2 (08:07→20:32)
[2021-10-07] MEDS: CHOLECALCIFEROL 1,000 UNITS 25 MCG TAB PO SCH (08:07)
[2021-10-07] MEDS: DOCUSATE SODIUM 100 MG CAP PO SCH ×2 (08:07→20:26)
[2021-10-07] MEDS: MULTIVITAMIN TAB PO SCH (08:07)
[2021-10-07] MEDS: PANTOprazole 40 MG TAB PO SCH (08:08)
[2021-10-07] MEDS: GABAPENTIN 600 MG TAB PO SCH (08:08)
[2021-10-07] MEDS: CALCIUM CARBONATE 1250MG TAB PO SCH (08:08)
[2021-10-07] MEDS: DULoxetine HCL 60 MG CAP PO SCH (08:09)
[2021-10-07] MEDS: ASCORBIC ACID 500 MG TAB PO SCH ×2 (08:10→18:30)
[2021-10-07] MEDS: VANCOMYCIN HCL 1,000 MG in SODIUM CHLORIDE 0.9% 250 ML IV SCH (08:17)
[2021-10-07] MEDS: HYDROmorphone INJ 0.5 MG/0.5 ML SYR IV PRN ×3 (08:23→22:36)
[2021-10-07] MEDS: HEPARIN 100 UNIT/ML 5ML FLUSH FLUSH PRN (08:23)
[2021-10-07] MEDS: APIXABAN 5 MG TABLET PO SCH ×2 (08:38→20:25)
[2021-10-07] MEDS: DOXYCYCLINE HYCLATE 100 MG CAP PO SCH ×2 (08:38→20:45)
--- NOTE | 2021-10-07 08:55 | Progress Notes ---
DATE OF NOTE: 10/07/2021. SUBJECTIVE: A 71-year-old female postop day 4 from a removal of antibiotic spacer and placement of a hinged knee replacement. She is doing pretty well. Pain seems to be controlled. She is doing okay in therapy. Just really waiting for placement. No chest pain or shortness of breath. Not feeling d brenton or lightheaded. OBJECTIVE: VITAL SIGNS: Temperature 36.8. Vital signs are stable. GENERAL: Shows a pleasant, elderly female. She is sitting up in bed or in a bedside chair, looks pr joe comfortable this morning. EXTREMITIES: Examination of the right knee reveals the leg to be well aligned. Just that trace bit of bloody drainage. She can do a straight leg raise pretty well this morning. She can dorsiflex and plantarflex her foot appropriately. She is neurologically intact. LABORATORY: No labs today. ASSESSMENT: A 71-year-old female with multiple medical comorbidities postop day 4 from removal of an tibiotic spacer and placement of a hinged knee replacement, doing pretty well. Pain is controlled. Cultures are no growth to date. PLAN: 1. DVT prophylaxis include thigh-high TEDs, SCDs, and Eliquis. We will put her back on her full dos e of Eliquis. 2. PT/OT. She can weight bear as tolerated, right lower extremity. 3. Pain control, doing okay with current pain regimen. 4. Antibiotics. We are going to switch her to the p.o. antibiotics at this point, probably for 3 mo nths. We will likely use doxycycline. 5. Disposition: She is just waiting for discharge. She is hoping to go to [facility] for a re hab stay. Job ID: [id number]
[2021-10-07] MEDS: INSULIN ASPART PER UNIT SC SCH ×4 (09:13→20:37)
[2021-10-07] MEDS: ATORVASTATIN 40 MG TAB PO SCH (20:25)
[2021-10-07] MEDS: DICLOFENAC SOD 1% GEL 100 GM TUBE EXT SCH (20:25)
[2021-10-07] MEDS: GABAPENTIN 300 MG CAP PO SCH (20:26)
[2021-10-07] MEDS: SENNA 8.6 MG TAB PO SCH (20:27)
[2021-10-07] MEDS: INSULIN GLARGINE SOLOSTAR 100 UNITS/ML 3 ML PEN SQ SCH (20:38)
[2021-10-08] MEDS: HYDROmorphone INJ 0.5 MG/0.5 ML SYR IV PRN ×2 (03:37→07:50)
[2021-10-08] MEDS: HEPARIN 100 UNIT/ML 5ML FLUSH FLUSH PRN ×2 (03:39→08:52)
[2021-10-08] MEDS: ACETAMINOPHEN 500 MG TAB PO SCH ×3 (05:15→21:30)
[2021-10-08] MEDS: LEVOTHYROXINE SODIUM 25 MCG TABLET PO SCH (05:15)
[2021-10-08 06:46] LABS: Creatinine Clr Calc Pharmacy 74.6 ml/min; Est GFR (African American) 102.6 ml/min; Est GFR (Non-African American) 88.5 ml/min
[2021-10-08] MEDS ORDERED: VANCOMYCIN LEVEL ONE (07:30)
[2021-10-08] MEDS: CHOLECALCIFEROL 1,000 UNITS 25 MCG TAB PO SCH (07:48)
[2021-10-08] MEDS: MULTIVITAMIN TAB PO SCH (07:48)
[2021-10-08] MEDS: ASCORBIC ACID 500 MG TAB PO SCH ×2 (07:48→17:13)
[2021-10-08] MEDS: GABAPENTIN 300 MG CAP PO SCH ×2 (07:49→20:17)
[2021-10-08] MEDS: PANTOprazole 40 MG TAB PO SCH (07:49)
[2021-10-08] MEDS: APIXABAN 5 MG TABLET PO SCH ×2 (07:49→20:15)
[2021-10-08] MEDS: CALCIUM CARBONATE 1250MG TAB PO SCH ×2 (07:49→20:16)
[2021-10-08] MEDS: METOPROLOL TARTRATE 25 MG TAB PO SCH ×2 (07:49→20:17)
[2021-10-08] MEDS: dilTIAZem HCL 180 MG CAPCR PO SCH (07:49)
[2021-10-08] MEDS: DULoxetine HCL 60 MG CAP PO SCH (07:49)
[2021-10-08] MEDS: DULoxetine HCL 30 MG CAP PO SCH (07:49)
[2021-10-08] MEDS: THIAMINE HCL 100 MG TAB PO SCH (07:49)
[2021-10-08] MEDS: DICLOFENAC SOD 1% GEL 100 GM TUBE EXT SCH ×2 (07:50→20:15)
[2021-10-08] MEDS: DOCUSATE SODIUM 100 MG CAP PO SCH ×2 (07:53→20:16)
--- NOTE | 2021-10-08 08:38 | Pharmacy Report ---
Pharmacy Glycemic Short Note 2 - Date of Service October 08, 2021 - Glycemic Short BSG Results (Last 24 hours): 10/07/21 10/07/21 10/07/21 12:05 16:56 20:30 POC Glucose 181 H 105 H 131 H 10/08/21 08:23 POC Glucose 141 H OUTPATIENT ANTIDIABETIC REGIMEN: * Glipizide 5 mg PO QAM * Lantus SQ 31 units QAM * Trulicity SQ 3 mg QFriday ASSESSMENT: 10/08: * BSGs remain reasonable well-controlled, 146, 181, 105, and 131 mg/dL yesterday * Received 22 units of insulin (~50/50 basal/bolus split) * Fasting BSG of 141 mg/dL this morning * Anticipate no change to insulin orders today 10/05: * Patient received total 28 units of insulin yesterday; 15 units basal + 13 units bolus. * BSGs yesterday were 139-835-39-178 mg/dl. Lowest BSG at dinner time due to patient receiving 6 units at breakfast with a stress of 2 coverage. Correction factor was loosened at lunch. * Since dinner BSG trended up to 178 mg/dl, carb ratio tightened slightly today AM. Background 10/04/21: * 71 y/o F admitted for R knee surgery and removal of antibiotic spacer. Patient with history of Type 2 diabetes managed on Glipizide, basal insulin and Trulicity. Holding Glipizide and Trulicity while admitted. * Will use basal + bolus insulin for glycemic control. * BSGs had trended up above 200 mg/dl yesterday * Patient received 15 units of basal insulin last night. * Fasting BSG today was 145 mg/dl. * Faith was recently admitted in June. At that time, she was on a dose scale of 12-15 units of Lantus at HS and loose Novolog parameters for meals and HS. Continued with similar parameters on this admission as well. PLAN FOR INPATIENT GLYCEMIC CONTROL: * Hold outpatient diabetes medications * Basal insulin * Lantus 12 units SC HS * Bolus insulin * NovoLog per scale ACHS or Q6hrs while NPO * Goal Range: Low 110 mg/dL - High 140 mg/dL * Correction Factor: 50 mg/dL/unit * Nutritional / Prandial insulin per carb ratio of 1 unit per 15 grams CHO consumed
[2021-10-08] MEDS: DOXYCYCLINE HYCLATE 100 MG CAP PO SCH ×2 (08:57→21:30)
[2021-10-08] MEDS: clonazePAM 0.25 MG TAB PO SCH ×2 (08:57→20:14)
[2021-10-08] MEDS: INSULIN ASPART PER UNIT SC SCH ×4 (08:57→20:43)
[2021-10-08 09:30] LABS: BUN Creatinine Ratio 21.7 (10-20); Calcium 8.7 mg/dl (8.5-10.1); Creatinine Clr Calc Pharmacy 69.2 ml/min; Est GFR (African American) 100.1 ml/min; Est GFR (Non-African American) 86.4 ml/min; Potassium 3.9 mmol/L (3.5-5.1)
[2021-10-08 09:36] LABS: Hematocrit (blood only) 27.1 % (37-47); Mean Corpuscular Hemoglobin 32.4 pg (25-34); Mean Corpuscular Hgb Conc 33.2 g/dL (32-36); Mean Corpuscular Volume 97.5 fL (80-100); Nucleated RBC # (auto) 0.02 K/uL (0-0); Nucleated RBC % (auto) 0.7 %; Platelet Count 130 K/uL (130-400); RDW Coefficient of Variation 19.6 % (11.5-14.5); RDW Standard Deviation 69.5 fL (36.4-46.3); Red Blood Count 2.78 M/uL (4.2-5.4)
[2021-10-08 09:37] LABS: Anisocytosis Present; Basophils # (auto) 0.03 K/uL (0-0.2); Basophils % (auto) 1.2 %; Eosinophils # (auto) 0.06 K/uL (0-0.5); Eosinophils % (auto) 2.3 %; Lymphocytes # (auto) 0.78 K/uL (1.2-3.4); Monocytes # (auto) 0.18 K/uL (0.11-0.59); Monocytes % (auto) 6.9 %; Neutrophils # (auto) 1.55 K/uL (1.4-6.5); Neutrophils % (auto) 59.6 %; Platelet Estimate Decreased (Normal)
--- NOTE | 2021-10-08 10:58 | XRay Report ---
XR knee RT 1 or 2V routine CLINICAL HISTORY: fall TECHNIQUE: 2 views of the right knee were obtained. Comparison: Comparison is made to the radiograph 10/03/2021 FINDINGS: Redemonstration of postsurgical changes of right knee arthroplasty revision. No hardware fracture or perihardware lucency is seen. Expected soft tissue swelling and subcutaneous emphysema is seen. IMPRESSION: No evidence of acute osseous injury. Expected postsurgical appearance of right knee arthroplasty revi becca. ACT 112: Negative or not required by law. Electronically signed by: Emre Riojas M.D. 10/08/2021 10:57 AM
--- NOTE | 2021-10-08 11:29 | Progress Notes ---
DATE OF SERVICE: 10/08/2021 SUBJECTIVE: A 71-year-old female now postop day 5 from removal of antibiotic spacer and placement of a hinged knee replacement. She has done pretty well in the hospital. She has been waiting for plac emcruz. She did have an unwitnessed fall this morning in the bathroom when she tried to get up and fe ll. She apparently fell backwards, bumped her head a little bit and bumped her leg. She has had a l ittle bit more knee pain, but it seemed to have resolved. No other complaints. She has had recurren t episodes of falling at home as well. OBJECTIVE: VITAL SIGNS: Temperature 36.6. Vital signs are stable. PHYSICAL EXAMINATION: GENERAL: Shows a pleasant, elderly female. Sitting up at her bedside. She is awake, alert, oriente d and looks unfazed and unchanged. EXTREMITIES: Examination of the right leg reveals incision to be clean, dry and intact. She can do a straight leg raise with some effort. There are no palpable defects. Fairly minimal swelling. She is neurologically intact. LABORATORIES: Stat H and H was performed and her hemoglobin is 9.0, hematocrit 27.1. Electrolytes a re stable. ASSESSMENT: A 71-year-old female, now 5 days out from removal of antibiotic spacer and placement of a hinged knee replacement. Orthopedically, she is doing well. She continues to have these repeated falls. She has been evaluated multiple times without any real resolution or etiology. Her hemoglobi n is where she lives and stable. Her blood pressure is stable. She did bump her head, but she has g ot no focal neurological deficits. PLAN: 1. DVT prophylaxis includes thigh-high TEDs, SCDs, and Eliquis. 2. PT, OT, weightbear as tolerated. Right total knee protocol. 3. Pain control: Doing okay with current pain regimen. 4. Multiple falls: We will have medicine see her just again to make sure there is no other cardiac issues. 5. Disposition: Hopeful discharge to [facility] later on today. Job ID: [id number]
[2021-10-08] MEDS: traMADol HCL 50 MG TABLET PO PRN ×2 (11:41→17:12)
--- NOTE | 2021-10-08 12:46 | CT Scan Report ---
CT head/brain wo con CLINICAL HISTORY: Status post fall with pain and weakness COMPARISON STUDY: 02/09/2021 CT DOSE: 729.78 mGycm TECHNIQUE: Standard CT of the Brain was performed without IV contrast. A dose lowering technique was utilized adhering to the principles of ALARA. FINDINGS: Extraaxial space: There is no evidence for subdural hematoma. There are no extra-axial fluid collecti ons. Ventricles and cisterns: The ventricles are mildly dilated bilaterally. There is no evidence for midl ine shift or mass effect. Parenchyma: There is no subarachnoid or intraparenchymal hemorrhage. There is no evidence for an acut e infarct or cerebral edema. There is mild cerebral cortical atrophy and decreased attenuation in the periventricular white matter representing remote small vessel disease. There are no gross mass lesio ns. Osseous structures: There is no evidence for an acute fracture. The visualized paranasal sinuses are clear. The mastoid air cells are clear bilaterally. Soft tissues: There is no evidence for focal soft tissue swelling. IMPRESSION: 1. No acute intracerebral pathology. 2. Mild cerebral cortical atrophy and remote small vessel disease. ACT 112: Negative or not required by law. Electronically signed by: Parish Ha M.D. 10/08/2021 12:44 PM
--- NOTE | 2021-10-08 12:51 | Hospitalist Progress Note ---
Date of Service October 08, 2021 Assessment & Plan (1) Fall: Plan: Patient sustained a ground-level fall today while in the bathroom. Occurred while standing from the toilet. Got slightly lightheaded but did not lose consciousness Trauma to her head and right knee CT of the head obtained given her chronic Eliquis. No intracranial process. Patient's mentation is not altered Right knee x-ray showing no periprosthetic fracture and well-seated prosthesis She denies dizziness at present Her orthostatic vital signs are normal Her hemoglobin was low initially following her surgery. She does have chronic anemia but was transfused 2 units of blood. Her hemoglobin remains stable (and is actually improving) I suspect that she had a mild vasovagal response. I have reiterated that she needs to use her ambulatory device Patient is medically and hemodynamically stable for discharge to rehab (2) History of revision of total replacement of right knee joint: Plan: Mrs. Solorzano is a 71-year-old white female with a prosthetic joint infection diagnosed 07/10. She has subsequently had removal of hardware and insertion of antibiotic spacer. She is completed 6 weeks of IV daptomycin. Underwent removal of antibiotic spacer and right knee revision on 10/03. Had an uneventful perioperative course. At this time, patient no longer needs any antibiotics (other than those given empirically in the perioperative course). --She has no indwelling hardware and her intraoperative culture data is showing no growth; however, at discretion of primary team Would advise PT/OT, incentive spirometry, adequate postoperative pain managementall at discretion of primary team --It is noted patient to be excessively somnolent after receiving morning dose of scheduled Nucynta. Would avoid opioid medications. --I have stopped Nucynta and as needed oxycodone and changed to as needed Ul tram--this was discussed with orthopedics Patient on chronic Eliquis (given history of A. fib/tachybradycardia syndrome). This has since been resumed. This will provide adequate DVT prophylaxis (3) Chronic anemia: Plan: Baseline hemoglobin around 8 (with review of old records) Patient has had multiple blood transfusions in the past Indices are elevated and she has a known history of B12 deficiency Most recent B12 level was drawn 08/07 and normal. Uncertain what level is currently (already receiving blood transfusion when seen by medicine) In addition, patient on chronic chemotherapy which is likely contributing to her chronic anemia S/p total of 2 units packed RBCs Patient denies melena/hematochezia. Has had colonoscopy in the past The chronic anemia is likely chemotherapy-induced with acute exacerbation due to dilutional drop Follow-up hemoglobin back to baseline (4) Tachy-monica syndrome: Plan: S/p PPM and mostly paced On chronic Eliquis and rate controlling medications (Cardizem, metoprolol) (5) Anticoagulant long-term use: Plan: on Eliquis (6) Diabetes type 2, controlled: Plan: On insulin for sliding scale/correction dosing Pharmacy on board and managing (7) Anxiety: Plan: Continue home clonazepam, Cymbalta as prior to hospitalization (8) Metastatic breast cancer: Plan: Patient has completed IV chemo, taking chronic Ibrance holding Ibrance. Her 21-day cycle ended on 09/30. I did reach out to oncology who recommends withholding starting her next course for 2 weeks (pushback 1 week) as to not impede wound healing/increase risk for infection. This would be resumption of her next cycle on 10/14 instead of 10/07 Plan: I have reached out to Dr. Huang to update him regarding this fall. I feel confident that she is medically and hemodynamically stable for discharge to home. I suspect this was likely a vasovagal response as patient stood too quickly from the toilet. She did not pass out but did get dizzy/lightheaded prior to the fall Admission and Anticipated Discharge Date Admission Date: October 05, 2021 Subjective Patient seen on daily rounds today. She is awaiting placement following removal of antibiotic spacer. She was seen by medicine days prior and medicine has since signed off. She has been medically and hemodynamically stable and just awaiting rehab. She sustained a ground-level fall which prompted reconsultation. Patient was sitting at the toilet. She stood quickly and got slightly ligh theaded resulting in a ground-level fall. She claims that she hit her right knee and her head. She did not lose consciousness. Orthostatic vital signs were obtained and patient did not tilt. Her vital signs have remained stable. Her labs were repeated and her hemoglobin is up trending thus no acute anemia CT of the head obtained showing no intracranial process (given her Eliquis) and a right knee x-ray was done showing no periprosthetic fracture Currently, patient denies dizziness, lightheadedness, palpitations, orthopnea, PND. Review of Systems Review of Systems: All systems reviewed and are unremarkable except as noted in HPI and below Denies fevers, chills, headache, nasal congestion, sore throat, cough, chest pain, shortness of breath, palpitations, orthopnea, PND, abdominal pain, nausea, vomiting, diarrhea, constipation, dysuria, hematuria, frequency, back pain, joint pain or swelling, easy bruising or bleeding, skin lesions or rashes. Physical Exam Physical Exam: General: Resting comfortably in her hospital bed. NAD. HEENT: Head is AT/NC. Buccal mucosa is moist and pink Neck: No JVD. Negative hepatojugular reflex Cardiac: RRR with 2/6 STEF Lungs: CTA without W/R/R Abdomen: Normoactive X4. Soft and nontender in all quadrants. Extremities: Right knee with Anant wrap. No obvious indwelling drain. Peripheral pulses intact. Neuro: A&O X4. Cranial nerves II through XII are grossly intact. No focal neuro deficits Skin: No obvious skin lesions or rashes Psych: Appropriate affect. Pleasant and cooperative Results & Data Results & Data ([facility]) Vital Signs (Past 12 Hours) Vital Signs Temp Pulse Resp BP Pulse Ox 10/08/21 07:36 74 20 156/67 H 97 10/08/21 07:20 36.6 C 73 16 129/79 98 Laboratory Results 10/08/21 08:47 10/08/21 08:47 PG Care Time/CCT Total # of Minutes Spent Total Time Spent with Patient: Total time spent is greater than 50% in coordination of care (as documented) at patient's floor/unit and/or counseling patient: Coding Level of Care Code 02326 Inpt Consult Level 4 Diagnoses History of revision of total replacement of right knee joint Z96.651 Chronic anemia D64.9 Tachy-monica syndrome I49.5 Anticoagulant long-term use Z79.01 Diabetes type 2, controlled E11.9 Anxiety F41.9 Metastatic breast cancer C50.919 Fall W19.XXXA
[2021-10-08] MEDS: ATORVASTATIN 40 MG TAB PO SCH (20:15)
[2021-10-08] MEDS: SENNA 8.6 MG TAB PO SCH (20:17)
[2021-10-08] MEDS ORDERED: INSULIN GLARGINE SOLOSTAR 100 UNITS/ML 3 ML PEN SQ SCH (21:00)
[2021-10-09] MEDS: LEVOTHYROXINE SODIUM 25 MCG TABLET PO SCH (05:24)
[2021-10-09] MEDS: ACETAMINOPHEN 500 MG TAB PO SCH ×3 (05:24→21:19)
[2021-10-09 08:14] LABS: Mean Corpuscular Hgb Conc 33.7 g/dL (32-36); Mean Platelet Volume 11.9 fL (7.4-10.4); Nucleated RBC # (auto) 0.02 K/uL (0-0); Nucleated RBC % (auto) 0.9 %; Platelet Count 133 K/uL (130-400)
[2021-10-09] MEDS: traMADol HCL 50 MG TABLET PO PRN ×2 (08:23→14:19)
[2021-10-09 08:37] LABS: Basophils # (auto) 0.04 K/uL (0-0.2); Basophils % (auto) 1.5 %; Eosinophils # (auto) 0.04 K/uL (0-0.5); Eosinophils % (auto) 1.5 %; Hematocrit (blood only) 28.2 % (37-47); Hemoglobin 9.5 g/dL (12.0-16.0); Immature Granulocytes # (auto) 0.01 K/uL (0.00-0.02); Immature Granulocytes % (auto) 0.4 %; Lymphocytes # (auto) 0.63 K/uL (1.2-3.4); Mean Corpuscular Hemoglobin 32.8 pg (25-34); Mean Corpuscular Volume 97.2 fL (80-100); Monocytes # (auto) 0.18 K/uL (0.11-0.59); Monocytes % (auto) 6.9 %; Neutrophils # (auto) 1.72 K/uL (1.4-6.5); Neutrophils % (auto) 65.7 %; RDW Coefficient of Variation 19.9 % (11.5-14.5); RDW Standard Deviation 69.2 fL (36.4-46.3); White Blood Count 2.62 K/uL (4.8-10.8)
[2021-10-09] MEDS: DULoxetine HCL 30 MG CAP PO SCH (08:51)
[2021-10-09] MEDS: MULTIVITAMIN TAB PO SCH (08:51)
[2021-10-09] MEDS: dilTIAZem HCL 180 MG CAPCR PO SCH (08:51)
[2021-10-09] MEDS: DOXYCYCLINE HYCLATE 100 MG CAP PO SCH ×2 (08:51→21:19)
[2021-10-09] MEDS: GABAPENTIN 300 MG CAP PO SCH ×2 (08:51→20:46)
[2021-10-09] MEDS: DICLOFENAC SOD 1% GEL 100 GM TUBE EXT SCH ×2 (08:51→20:45)
[2021-10-09] MEDS: PANTOprazole 40 MG TAB PO SCH (08:51)
[2021-10-09] MEDS: CALCIUM CARBONATE 1250MG TAB PO SCH (08:51)
[2021-10-09] MEDS: CHOLECALCIFEROL 1,000 UNITS 25 MCG TAB PO SCH (08:51)
[2021-10-09] MEDS: DOCUSATE SODIUM 100 MG CAP PO SCH ×2 (08:51→20:46)
[2021-10-09] MEDS: ASCORBIC ACID 500 MG TAB PO SCH ×2 (08:51→18:08)
[2021-10-09] MEDS: DULoxetine HCL 60 MG CAP PO SCH (08:51)
[2021-10-09] MEDS: APIXABAN 5 MG TABLET PO SCH ×2 (08:51→20:45)
[2021-10-09] MEDS: METOPROLOL TARTRATE 25 MG TAB PO SCH ×2 (08:51→20:55)
[2021-10-09] MEDS: THIAMINE HCL 100 MG TAB PO SCH (08:52)
[2021-10-09] MEDS: INSULIN ASPART PER UNIT SC SCH ×4 (09:05→21:16)
[2021-10-09] MEDS: clonazePAM 0.25 MG TAB PO SCH ×2 (11:00→20:54)
--- NOTE | 2021-10-09 14:07 | Progress Notes ---
DATE OF SERVICE: 10/09/2021. SUBJECTIVE: A 71-year-old white female, now 6 days out from removal of antibiotic spacer and placeme nt of hinged knee replacement. She did have a fall yesterday. She has recovered from this. Having some leg pain, but nothing unusual or different. No new complaints. Denies any chest pain or shortn ess of breath. OBJECTIVE: VITAL SIGNS: Temperature 36.7. Vital signs are stable. PHYSICAL EXAMINATION: GENERAL: Shows a pleasant, elderly female. She is sitting up in her bedside chair, looks pretty com fortable. EXTREMITIES: Examination of the right leg reveals the dressing to be clean, dry and intact. She can do a straight leg raise with some effort. There is no instability. She is neurologically intact. LABORATORIES: Her labs from today reveal hemoglobin 9.5, hematocrit 28.2. ASSESSMENT: A 71-year-old white female postoperative day 6 from removal of antibiotic spacer and patricia cement of hinged knee replacement. She did have a fall yesterday, but there are no signs of any prob lems. She underwent medical evaluation and everything appears stable. She is on blood thinner, but head CT was negative and hemoglobin is stable. PLAN: 1. DVT prophylaxis includes thigh-high TEDs, SCDs, and she is back on her normal dose of Eliquis. 2. PT, OT, weightbear as tolerated. Right total knee protocol. 3. Pain control, doing okay with current pain regimen. 4. Disposition: Planning to discharge to [facility] once accepted and approved. Just awaiting approval . Job ID: [id number]
[2021-10-09] MEDS: HYDROmorphone INJ 0.5 MG/0.5 ML SYR IV PRN ×2 (18:09→22:53)
[2021-10-09] MEDS: HEPARIN 100 UNIT/ML 5ML FLUSH FLUSH PRN (18:10)
[2021-10-09] MEDS: ATORVASTATIN 40 MG TAB PO SCH (20:45)
[2021-10-09] MEDS: SENNA 8.6 MG TAB PO SCH (20:46)
[2021-10-09] MEDS ORDERED: INSULIN GLARGINE SOLOSTAR 100 UNITS/ML 3 ML PEN SQ SCH (21:00)
[2021-10-10] MEDS: ACETAMINOPHEN 500 MG TAB PO SCH (05:25)
[2021-10-10] MEDS: LEVOTHYROXINE SODIUM 25 MCG TABLET PO SCH (05:25)
[2021-10-10] MEDS: HEPARIN 100 UNIT/ML 5ML FLUSH FLUSH PRN (05:35)
[2021-10-10 06:38] LABS: Creatinine Clr Calc Pharmacy 74.6 ml/min; Est GFR (African American) 102.6 ml/min; Est GFR (Non-African American) 88.5 ml/min
[2021-10-10] MEDS: DICLOFENAC SOD 1% GEL 100 GM TUBE EXT SCH (08:05)
[2021-10-10] MEDS: dilTIAZem HCL 180 MG CAPCR PO SCH (08:07)
[2021-10-10] MEDS: APIXABAN 5 MG TABLET PO SCH (08:07)
[2021-10-10] MEDS: CALCIUM CARBONATE 1250MG TAB PO SCH (08:07)
[2021-10-10] MEDS: MULTIVITAMIN TAB PO SCH (08:07)
[2021-10-10] MEDS: DOXYCYCLINE HYCLATE 100 MG CAP PO SCH (08:07)
[2021-10-10] MEDS: DULoxetine HCL 60 MG CAP PO SCH (08:07)
[2021-10-10] MEDS: METOPROLOL TARTRATE 25 MG TAB PO SCH (08:07)
[2021-10-10] MEDS: DULoxetine HCL 30 MG CAP PO SCH (08:07)
[2021-10-10] MEDS: CHOLECALCIFEROL 1,000 UNITS 25 MCG TAB PO SCH (08:07)
[2021-10-10] MEDS: GABAPENTIN 300 MG CAP PO SCH (08:07)
[2021-10-10] MEDS: PANTOprazole 40 MG TAB PO SCH (08:08)
[2021-10-10] MEDS: clonazePAM 0.25 MG TAB PO SCH (08:08)
[2021-10-10] MEDS: traMADol HCL 50 MG TABLET PO PRN (08:08)
[2021-10-10] MEDS: DOCUSATE SODIUM 100 MG CAP PO SCH (08:08)
[2021-10-10] MEDS: THIAMINE HCL 100 MG TAB PO SCH (08:08)
[2021-10-10] MEDS: ASCORBIC ACID 500 MG TAB PO SCH (08:08)
[2021-10-10] MEDS: INSULIN ASPART PER UNIT SC SCH (09:21)
--- NOTE | 2021-10-12 09:14 | Discharge Summary ---
Date of Service October 12, 2021 Discharge Data Consultations 10/03/21 16:36 Consult Hospitalist Routine 10/08/21 09:14 Consult Hospitalist Routine Procedures Performed Operation Date: 10/03/21 12:00 Actual Procedures p Removal Right Knee Antibiotic Spacer, Revision Right Total Knee Replacement with distal femoral replacement and hinged knee replacement(Right) - Nathan Huang MD Hospital Course (1) History of revision of total replacement of right knee joint: This patient is a 71 year old female admitted on 10/03/21 and underwent removal of antibiotic spacer and hinged total knee replacement/revision. SHe tolerated the procedure well and there were no complications. Transferred to the PACU post op and later to the orthopedic floor for further care. She was given vancomycin postoperatively. She was also given CECELIA stockings, SCDs, and eliquis for DVT prophylaxis. Hemoglobin, hematocrit, and vital signs were monitored during her hospital stay and remained stable. She has a h/o chronic anemia and did receive 2 units of PRBC's. She had a fall post op and was evaluated by the hospitalist service, had a head ct scan which was negative. She was followed by the hospitalist service through out her hospital stay. By post op day #6 the patient was tolerating a diabetic diet, pain was reasonably controlled with oral pain medicine, and she was participating in physical therapy. On post op day #6 the patient was discharged to [facility]. She was given printed discharge instructions including prescriptions for doxycycline and tramdol. Continue physical therapy, weight bearing as tolerated. Continue CECELIA stockings. Follow up approximately 2 weeks post op or sooner if there are problems or concerns. Coding Level of Care Code None Diagnoses History of revision of total replacement of right knee joint Z96.651
[2021-10-19] MEDS ORDERED: CYANOCOBALAMIN 1000 MCG/ML VIAL IM SCH (09:00)
== END 2021-10-10 11:50 ==
LOC: 3N 09:46 → ASU 09:46

== ENCOUNTER 2022-01-22 18:47 | Observation (INO) ==
--- NOTE | 2022-01-22 19:33 | ED Triage Note ---
Date of Service January 22, 2022 History of Present Illness This patient was briefly evaluated while in triage. An abbreviated physical exam was performed. This patient is a 71-year-old Female who presents to the ED for evaluation of an infected port. Patient had her port removed by general surgery and they called her today to tell her that it was growing out a bacteria that could not be treated by oral antibiotics. She was recommended to come here. Physical Exam VITALS: Vitals are noted on the nurse's note and reviewed by myself. GENERAL: This is a 71-year-old female, in no acute distress, well-developed well-nourished. HEART: Regular rate and rhythm without murmurs gallops or rubs. LUNGS: Clear to auscultation bilaterally without wheezes, rales or rhonchi. NEURO: Patient was alert and oriented to person place and time. Initial orders for labs and / or imaging were placed and patient was placed in the waiting area until a bed is available. Please see further documentation for the full ED course.
[2022-01-22 22:06] LABS: Hematocrit (blood only) 29.8 % (34.1-44.9); Mean Corpuscular Hemoglobin 36.8 pg (25.0-34.0); Mean Corpuscular Hgb Conc 33.6 g/dL (32.0-36.0); Mean Corpuscular Volume 109.6 fL (80.0-100.0); Mean Platelet Volume 11.4 fL (9.4-12.3); Nucleated RBC # (auto) 0.02 K/uL (0-0); Nucleated RBC % (auto) 0.6 %; Platelet Count 147 K/uL (130-400); RDW Coefficient of Variation 15.4 % (11.5-14.5); RDW Standard Deviation 61.4 fL (36.4-46.3); Red Blood Count 2.72 M/uL (3.93-5.22); White Blood Count 3.59 K/ul (4.8-10.8)
[2022-01-22 22:25] LABS: Albumin Globulin Ratio 1.5 (0.9-2); Albumin Level 4.2 gm/dl (3.4-5.0); BUN Creatinine Ratio 25.4 (10-20); Bilirubin,Total 0.4 mg/dl (0.2-1.0); Calcium 9.1 mg/dl (8.5-10.1); Creatinine Clr Calc Pharmacy 71.6 ml/min; Est GFR (African American) 101.1 ml/min; Est GFR (Non-African American) 87.2 ml/min; Globulin 2.8 gm/dl (2.5-4.0); Potassium 4.7 mmol/L (3.5-5.1)
[2022-01-22] MEDS ORDERED: VANCOMYCIN HCL 1,500 MG in SODIUM CHLORIDE 0.9% 500 ML IV ONE (22:33)
[2022-01-22] MEDS ORDERED: VANCOMYCIN CONSULT ACTIVE PRN (22:33)
--- NOTE | 2022-01-22 22:36 | Emergency Department Note ---
Impression & Plan MRSA (methicillin resistant staph aureus) culture positive ADMIT ED Provider Note HPI: The patient is a 71-year-old female with history of metastatic breast cancer, no longer on chemotherapy, presents the emergency department at the advice of hematology/oncology secondary to a port culture result that was removed on 01/11. Patient had a venous access port removed over concern for infection on 01/[address] Shah, culture results did return positive for coag negative staph, sensitivities show multiple antibiotic resistance with sensitivity to daptomycin and vancomycin. Surgical reviewed by hematology/oncology today and patient was determined to be appropriate for IV antibiotics and was referred to the emergency department for admission for arrangement of outpatient IV antibiotics. On arrival here to the ED the patient is hemodynamically stable, she is in no acute distress, she is afebrile on presentation. 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 Culture results were reviewed from infected port that was removed by Gen Surg on 01/11, resulted on 01/16 and does show evidence of MRSA infection with sensitivities to daptomycin and vancomycin. Case was discussed with on-call hematology/oncology, Dr. Pablo, who did review the correspondence from her office earlier today, patient was referred to the emergency room given this culture result from the now removed port and suggested for admission to the hospital for establishment of outpatient IV antibiotics. Patient was in agreement to this as was her family member at the bedside, case was discussed with the on-call admitting hospitalist, Dr. Huang, patient was ordered a dose of IV vancomycin and blood cultures were obtained here in the ED prior to administration. Patient was admitted in stable condition for further care. Diagnosis: 1. MRSA infection Disposition: Admission Gray Estevez DO Emergency Medicine Past Med/Surg History Medical History Anemia Anxiety Aortic stenosis Atrial fibrillation Cervical spine disease Chronic pain Degenerative disc disease Depression Diabetes mellitus, type 2 Gastroesophageal reflux disease Hx of cardiac pacemaker Hypercholesterolemia Hypothyroidism Infiltrating ductal carcinoma of left breast Liver mass Metastatic lung carcinoma Neuropathy Obstructive sleep apnea Pacemaker Peripheral neuropathy Surgical History H/O bilateral hip replacements History of carpal tunnel surgery of left wrist History of carpal tunnel surgery of right wrist History of section History of colonoscopy History of evacuation of hematoma History of removal of Port-a-Cath (01/11/22) History of surgery History of total knee arthroplasty Port-A-Cath in place S/P cardiac pacemaker procedure Status post appendectomy Status post arthroscopy of left shoulder Status post gastric bypass for obesity Status post laparoscopic cholecystectomy Status post lumbar spine surgery for decompression of spinal cord Status post panniculectomy Status post partial mastectomy of left breast Status post repair of ventral hernia Status post total abdominal hysterectomy and bilateral salpingo-oophorectomy Family History Unknown Breast cancer Emphysema lung Mother Diabetes Heart disease Father Heart disease Other No family history of adverse response to anesthesia Denies family history of Ovarian cancer Prostate cancer Coronary heart disease Colorectal cancer Social History Smoking Status: Never smoker Tobacco Type: Cigarettes packs per day: 2; Second Hand Exposure: No; Hx Alcohol Use: Yes Alcohol type: beer and wine Hx Substance Use: No Preferred Language: Welsh Communication Ability: Effective Visual Impairment: No Limitations Hearing Ability: Normal Parts Clerk Required: No Beliefs That Will Affect Care: None marital status: Current Living Situation: Spouse current occupational status: retired Feels Safe at Home: Yes Childhood Exposure to Second-Hand Smoke: Yes caffeine: Yes Dental Care, Regularly: No Physical Activity Frequency: 1-2 Times per Week Seatbelt Use: always Sunscreen Use: No Assistive Devices: Denture - Upper, Denture - Lower, Glasses and Walker Allergies Allergies Allergy/AdvReac Type Severity Reaction Status Date / Time metformin AdvReac Unknown Insomnia Verified 01/22/22 15:27 Home Meds Home Medications Medication Instructions Recorded Confirmed multivitamin 1 tab PO QAM 02/04/18 01/23/22 cholecalciferol (vitamin D3) 25 1,000 unit PO QAM 07/29/19 01/23/22 mcg (1,000 unit) capsule (Vitamin D3) calcium 600 mg capsule 600 mg PO QAM 09/27/20 01/23/22 duloxetine 60 mg capsule,delayed 60 mg PO QAM 05/28/21 01/23/22 release (Cymbalta) palbociclib 125 mg tablet (Ibrance) 125 mg PO UD 07/06/21 01/23/22 ondansetron HCl 4 mg tablet 4 mg PO Q8H PRN Nausea 07/11/21 01/23/22 pantoprazole 40 mg tablet,delayed 40 mg PO QAM 07/11/21 01/23/22 release (Protonix) fulvestrant 250 mg/5 mL 500 mg IM Q28D 07/27/21 01/23/22 intramuscular syringe (Faslodex) diclofenac sodium 1 % topical gel 2 g topical UD PRN Pain 08/13/21 01/23/22 (Voltaren Arthritis Pain) meclizine 25 mg tablet 25 mg PO UD PRN dizziness 10/01/21 01/23/22 doxycycline hyclate 100 mg capsule 100 mg PO BID@1000,2200 knee 01/10/22 01/23/22 infection palbociclib 125 mg tablet (Ibrance) 125 mg PO DIRECTED 01/23/22 01/23/22 Previous Rx's Medication Instructions Recorded thiamine HCl (vitamin B1) 100 mg 100 mg PO QAM #30 tabs 01/02/21 tablet (Vitamin B-1) syringe with needle 3 mL 25 gauge #100 ea 02/22/21 x 1" (BD Luer-Veronica Syringe) atorvastatin 40 mg tablet 40 mg PO HS #90 tabs 03/26/21 cyanocobalamin (vitamin B-12) 1,000 mcg IM MONTHLY #1 ea 05/23/21 1,000 mcg/mL injection kit pen needle, diabetic 32 gauge x #100 ea 06/11/2132" (Easy Comfort Pen Bard) blood sugar diagnostic (OneTouch #100 ea 06/20/21 Ultra Test strips) duloxetine 30 mg capsule,delayed 30 mg PO QAM #60 caps 08/08/21 release (Cymbalta) OneTouch Delica Plus Lancet 33 #300 ea 08/15/21 gauge (lancets) OneTouch Delica Plus Lancing #1 ea 08/15/21 Device kit (lancing device with lancets) glipizide 5 mg tablet 5 mg PO QAM #90 tabs 09/06/21 apixaban 5 mg tablet (Eliquis) 5 mg PO BID #60 tabs 09/10/21 acetaminophen 500 mg tablet 1,000 mg PO TID PRN Pain #90 tabs 11/09/21 (Tylenol Extra Strength) dulaglutide 3 mg/0.5 mL 3 mg (0.5 mL) subcut WK #2 mL 11/29/21 subcutaneous pen injector (Trulicity) gabapentin 300 mg capsule 300 mg PO BID #60 caps 12/03/21 insulin glargine 100 unit/mL (3 31 unit (0.31 mL) subcut QPM #15 mL 12/06/21 mL) subcutaneous pen (Basaglar KwikPen U-100 Insulin) diltiazem HCl 360 mg capsule,24 360 mg PO QAM #30 caps 12/19/21 hr,extended release metoprolol tartrate 50 mg tablet 50 mg PO BID #180 tabs 12/27/21 tramadol 50 mg tablet 50 mg PO Q6H PRN pain #60 tabs 12/31/21 levothyroxine 25 mcg tablet 37.5 mcg PO QAM #135 tabs 01/14/22 clonazepam 0.5 mg tablet 0.25 mg PO BID #30 tabs 01/15/22 Results & Data (ED) Vital Signs Vital Signs - 24 hr 01/22/22 19:18 01/22/22 22:26 Temperature 36.9 C Temperature Source Oral Pulse Rate 66 Pulse Rate [Finger] 62 Respiratory Rate 18 18 Respiratory Effort / Characteristics Non-Labored Spontaneous Respiratory Depth Normal Blood Pressure 150/68 H Blood Pressure [Right Arm] 168/69 H Blood Pressure Mean 95 Blood Pressure Mean [Right Arm] 102 Pulse Oximetry 99 100 Oxygen Delivery Method Room Air Room Air Sepsis Recent Fever Within 48 Hours No Sepsis New/Unexplained Change in Mental Status No Sepsis Action Taken by Nursing No Action Required Laboratory Data Result diagrams: 01/22/22 21:49 01/22/22 21:49 Lab Results 01/22/22 01/22/22 01/22/22 Range/Units 21:49 21:49 21:49 WBC 3.59 L (4.8-10.8) K/ul RBC 2.72 L (3.93-5.22) M/uL Hgb 10.0 L (12.0-16.0) g/dl Hct 29.8 L (34.1-44.9) % MCV 109.6 H (80.0-100.0) fL MCH 36.8 H (25.0-34.0) pg MCHC 33.6 (32.0-36.0) g/dL RDW Std Deviation 61.4 H (36.4-46.3) fL RDW Coeff of Thompson 15.4 H (11.5-14.5) % Plt Count 147 (130-400) K/uL MPV 11.4 (9.4-12.3) fL Immature Gran % (Auto) 0.3 % Neut % (Auto) 44.4 % Lymph % (Auto) 46.2 % [place] % (Auto) 5.3 % Eos % (Auto) 1.9 % Baso % (Auto) 1.9 % Neut # (Auto) 1.59 (1.4-6.5) K/uL Lymph # (Auto) 1.66 (1.2-3.4) K/uL [place] # (Auto) 0.19 L (0.24-0.82) K/uL Eos # (Auto) 0.07 (0-0.50) K/uL Baso # (Auto) 0.07 (0-0.2) K/uL Immature Gran # (Auto) 0.01 (0.00-0.02) K/uL Absolute Nucleated RBC 0.02 H (0-0) K/uL Nucleated RBC % (auto) 0.6 % Sodium 136 (136-145) mmol/L Potassium 4.7 (3.5-5.1) mmol/L Chloride 105 (98-107) mmol/L Carbon Dioxide 25 (21-32) mmol/L Anion Gap 6 (3-11) BUN 17 (6-23) mg/dl Creatinine 0.67 (0.6-1.2) mg/dl Est Cr Clr Drug Dosing 71.6 ml/min Est GFR ( Amer) 101.1 ml/min Est GFR (Non-Af Amer) 87.2 ml/min BUN/Creatinine Ratio 25.4 H (10-20) Glucose 89 (70-99(Fasting)) mg/dl Lactate 0.8 (0.4-2.0) mmol/L Calcium 9.1 (8.5-10.1) mg/dl Total Bilirubin 0.4 (0.2-1.0) mg/dl AST 32 (13-39) U/L ALT 43 (7-52) U/L Alkaline Phosphatase 53 (34-104) U/L Total Protein 7.0 (6.0-8.3) gm/dl Albumin 4.2 (3.4-5.0) gm/dl Globulin 2.8 (2.5-4.0) gm/dl Albumin/Globulin Ratio 1.5 (0.9-2) SARS-CoV-2, RNA, NAAT (NEGATIVE) 01/22/22 Range/Units 22:33 WBC (4.8-10.8) K/ul RBC (3.93-5.22) M/uL Hgb (12.0-16.0) g/dl Hct (34.1-44.9) % MCV (80.0-100.0) fL MCH (25.0-34.0) pg MCHC (32.0-36.0) g/dL RDW Std Deviation (36.4-46.3) fL RDW Coeff of Thompson (11.5-14.5) % Plt Count (130-400) K/uL MPV (9.4-12.3) fL Immature Gran % (Auto) % Neut % (Auto) % Lymph % (Auto) % [place] % (Auto) % Eos % (Auto) % Baso % (Auto) % Neut # (Auto) (1.4-6.5) K/uL Lymph # (Auto) (1.2-3.4) K/uL [place] # (Auto) (0.24-0.82) K/uL Eos # (Auto) (0-0.50) K/uL Baso # (Auto) (0-0.2) K/uL Immature Gran # (Auto) (0.00-0.02) K/uL Absolute Nucleated RBC (0-0) K/uL Nucleated RBC % (auto) % Sodium (136-145) mmol/L Potassium (3.5-5.1) mmol/L Chloride (98-107) mmol/L Carbon Dioxide (21-32) mmol/L Anion Gap (3-11) BUN (6-23) mg/dl Creatinine (0.6-1.2) mg/dl Est Cr Clr Drug Dosing ml/min Est GFR ( Amer) ml/min Est GFR (Non-Af Amer) ml/min BUN/Creatinine Ratio (10-20) Glucose (70-99(Fasting)) mg/dl Lactate (0.4-2.0) mmol/L Calcium (8.5-10.1) mg/dl Total Bilirubin (0.2-1.0) mg/dl AST (13-39) U/L ALT (7-52) U/L Alkaline Phosphatase (34-104) U/L Total Protein (6.0-8.3) gm/dl Albumin (3.4-5.0) gm/dl Globulin (2.5-4.0) gm/dl Albumin/Globulin Ratio (0.9-2) SARS-CoV-2, RNA, NAAT NEGATIVE (NEGATIVE) Administered Medications Discontinued Medications Vancomycin HCl 1,500 mg/ (Sodium Chloride) 530 mls @ 200 mls/hr IV NOW ONE Stop: 01/23/22 01:11 Last Infusion: 01/22/22 23:52 Dose: 200 mls/hr Documented By: Infusion: 01/22/22 23:05 Dose: 0 mls/hr Documented By: Admin: 01/22/22 22:56 Dose: 200 mls/hr Documented By: FREDO Discharge Plan Visit Data Chief Complaint: Need IV Start Stated Complaint: IV/ ANTIBIOTICS ED Provider: Gray Estevez Discharge Problem: MRSA (methicillin resistant staph aureus) culture positive Forms Stand Alone Forms: My [facility] Prescriptions Prescriptions: No Action multivitamin tablet 1 tab PO QAM (DME) BD Luer-Veronica Syringe 3 mL 25 gauge x 1" syringe See Rx Instructions .Route Qty: 100 1RF Rx Instructions: Use once monthly with vitamin B12 injections. atorvastatin 40 mg tablet 40 mg PO HS Qty: 90 3RF cyanocobalamin (vitamin B-12) 1,000 mcg/mL kit 1,000 mcg IM MONTHLY Qty: 1 3RF (DME) OneTouch Ultra Test Strip See Rx Instructions .Route Qty: 100 5RF Rx Instructions: Test BS 3x daily duloxetine [Cymbalta] 30 mg capsule,delayed release(DR/EC) 30 mg PO QAM Qty: 60 3RF Rx Instructions: Take together with 60 mg capsule for total dose of 90 mg daily. (DME) lancets [Circuportuch Delica Plus Lancet] 33 gauge misc See Rx Instructions .Route Qty: 300 3RF Rx Instructions: use to check bsg 3 times daily (DME) lancing device with lancets [Circuportuch Delica Plus Lanc Dev] Kit See Rx Instructions .Route Qty: 1 0RF Rx Instructions: use to check bsg 3 times daily glipizide 5 mg tablet 5 mg PO QAM Qty: 90 3RF acetaminophen [Tylenol Extra Strength] 500 mg tablet 1,000 mg PO TID PRN (Reason: Pain) Qty: 90 3RF Trulicity 3 mg/0.5 mL pen injector 3 mg subcut WK Qty: 2 5RF Rx Instructions: 3 mg subcut; takes friday. gabapentin 300 mg capsule 300 mg PO BID Qty: 60 5RF insulin glargine [Basaglar KwikPen U-100 Insulin] 100 unit/mL (3 mL) insulin pen 31 unit subcut QPM Qty: 15 3RF diltiazem HCl 360 mg capsule,extended release 24 hr 360 mg PO QAM Qty: 30 5RF metoprolol tartrate 50 mg tablet 50 mg PO BID Qty: 180 3RF tramadol 50 mg tablet 50 mg PO Q6H PRN (Reason: pain) Qty: 60 0RF levothyroxine 25 mcg tablet 37.5 mcg PO QAM Qty: 135 3RF clonazepam 0.5 mg tablet 0.25 mg PO BID Qty: 30 0RF Rx Instructions: Ongoing therapy: Quinn Lovett MD GISELLE# [id number] RUST [id number] Eliquis 5 mg tablet 5 mg PO BID Qty: 60 5RF (DME) pen needle, diabetic [Easy Comfort Pen Bard] 32 gauge x 5/32" needle See Rx Instructions .Route Qty: 100 3RF Rx Instructions: As directed cholecalciferol (vitamin D3) [Vitamin D3] 25 mcg (1,000 unit) Capsule 1,000 unit PO QAM calcium 600 mg Capsule 600 mg PO QAM duloxetine [Cymbalta] 60 mg capsule,delayed release(DR/EC) 60 mg PO QAM Rx Instructions: Take together with 30 mg capsule for total dose of 90 mg daily. Ibrance 125 mg Tablet 125 mg PO UD Label Comments: I GO OFF OF IT ON CERTAIN DAYS pantoprazole [Protonix] 40 mg tablet,delayed release (DR/EC) 40 mg PO QAM ondansetron HCl 4 mg Tablet 4 mg PO Q8H PRN (Reason: Nausea) fulvestrant [Faslodex] 250 mg/5 mL Syringe 500 mg IM Q28D Label Comments: meclizine 25 mg tablet 25 mg PO UD PRN (Reason: dizziness) doxycycline hyclate 100 mg capsule 100 mg PO BID@1000,2200 Ibrance 125 mg tablet 125 mg PO DIRECTED Rx Instructions: [place] is last dose to take , then stop for 7 days thiamine HCl (vitamin B1) [Vitamin B-1] 100 mg Tablet 100 mg PO QAM Qty: 30 0RF diclofenac sodium [Voltaren Arthritis Pain] 1 % gel 2 g topical UD PRN (Reason: Pain) Rx Instructions: apply to single elbow, wrist or hand; for hand includes palm/fingers/back of hand Referrals Referrals: Quinn Lovett MD [Primary Care Provider] -
[2022-01-22 22:52] LABS: Basophils # (auto) 0.07 K/uL (0-0.2); Basophils % (auto) 1.9 %; Eosinophils # (auto) 0.07 K/uL (0-0.50); Eosinophils % (auto) 1.9 %; Immature Granulocytes # (auto) 0.01 K/uL (0.00-0.02); Immature Granulocytes % (auto) 0.3 %; Lymphocytes # (auto) 1.66 K/uL (1.2-3.4); Lymphocytes % (auto) 46.2 %; Monocytes # (auto) 0.19 K/uL (0.24-0.82); Monocytes % (auto) 5.3 %; Neutrophils # (auto) 1.59 K/uL (1.4-6.5); Neutrophils % (auto) 44.4 %
--- NOTE | 2022-01-22 23:30 | History & Physical Report ---
Date of Service January 22, 2022 Assessment & Plan (1) MRSA (methicillin resistant staph aureus) culture positive: Plan: Patient status post removal of right chest port. Cultures from the port have grown coag negative staph, oxacillin resistant. Sensitive to vancomycin. She is presently afebrile, hemodynamically stable and nontoxic in appearance. Blood cultures from today drawn and are thus far negative Continue to follow cultures Continue vancomycin Patient will most likely need additional vascular access placed when cultures have been negative Consider ID consult Should patient's blood cultures become positive would need serial cultures as well as echocardiogram (2) Chronic GERD: Plan: Chronic. Stable. Continue Protonix (3) Diabetes type 2, controlled: Plan: Chronic. Continue insulin, sliding scale Goal blood sugar 1 10-1 40 (4) Atrial fibrillation: Plan: Rate controlled. Continue Eliquis 5 mg p.o. twice daily Continue metoprolol, diltiazem Continue to monitor History of Present Illness Chief Complaint: Infected chest port Primary Care Provider: Quinn Lovett MD Faith Solorzano is a 71-year-old female with history of metastatic breast cancer, diabetes, hyperlipidemia, GERD presenting at the request of hematology for treatment of an infected chest port. Patient had port removed by Dr. Shah on 01/11/2022. Cultures were found to be positive for coag negative staph, resistant to oxacillin. Patient returned to the office today to have her sutures removed and was instructed to come to the ER for IV antibiotics. Patient has been having subjective fevers, chills, general malaise and feeling ill and dehydrated over the past several weeks. She does deny nausea, vomiting, diarrhea, constipation. She has not been eating well and reports little to no appetite. Otherwise, no complaints. In the ER she is afebrile, hemodynamically stable, nontoxic in appearance Allergies Allergy/AdvReac Type Severity Reaction Status Date / Time metformin AdvReac Unknown Insomnia Verified 01/22/22 15:27 Home Medications Medication Instructions Recorded Confirmed Type multivitamin 1 tab PO QAM 02/04/18 01/23/22 History cholecalciferol (vitamin D3) 25 1,000 unit PO QAM 07/29/19 01/23/22 History mcg (1,000 unit) capsule (Vitamin D3) calcium 600 mg capsule 600 mg PO QAM 09/27/20 01/23/22 History thiamine HCl (vitamin B1) 100 mg 100 mg PO QAM #30 tabs 01/02/21 01/23/22 Rx tablet (Vitamin B-1) syringe with needle 3 mL 25 gauge #100 ea 02/22/21 01/22/22 Rx x 1" (BD Luer-Veronica Syringe) atorvastatin 40 mg tablet 40 mg PO HS #90 tabs 03/26/21 01/23/22 Rx cyanocobalamin (vitamin B-12) 1,000 mcg IM MONTHLY #1 ea 05/23/21 01/23/22 Rx 1,000 mcg/mL injection kit duloxetine 60 mg capsule,delayed 60 mg PO QAM 05/28/21 01/23/22 History release (Cymbalta) pen needle, diabetic 32 gauge x #100 ea 06/11/21 01/22/22 Rx 5/32" (Easy Comfort Pen [place]) blood sugar diagnostic (OneTouch #100 ea 06/20/21 01/22/22 Rx Ultra Test strips) palbociclib 125 mg tablet (Ibrance) 125 mg PO UD 07/06/21 01/23/22 History ondansetron HCl 4 mg tablet 4 mg PO Q8H PRN Nausea 07/11/21 01/23/22 History pantoprazole 40 mg tablet,delayed 40 mg PO QAM 07/11/21 01/23/22 History release (Protonix) fulvestrant 250 mg/5 mL 500 mg IM Q28D 07/27/21 01/23/22 History intramuscular syringe (Faslodex) duloxetine 30 mg capsule,delayed 30 mg PO QAM #60 caps 08/08/21 01/23/22 Rx release (Cymbalta) diclofenac sodium 1 % topical gel 2 g topical UD PRN Pain 08/13/21 01/23/22 Hi story (Voltaren Arthritis Pain) OneTouch Delica Plus Lancet 33 #300 ea 08/15/21 01/22/22 Rx gauge (lancets) OneTouch Delica Plus Lancing #1 ea 08/15/21 01/22/22 Rx Device kit (lancing device with lancets) glipizide 5 mg tablet 5 mg PO QAM #90 tabs 09/06/21 01/23/22 Rx apixaban 5 mg tablet (Eliquis) 5 mg PO BID #60 tabs 04/25/22 09/07/22 Rx meclizine 25 mg tablet 25 mg PO UD PRN dizziness 10/01/21 01/23/22 History acetaminophen 500 mg tablet 1,000 mg PO TID PRN Pain #90 tabs 11/09/21 01/23/22 Rx (Tylenol Extra Strength) dulaglutide 3 mg/0.5 mL 3 mg (0.5 mL) subcut WK #2 mL 11/29/21 01/23/22 Rx subcutaneous pen injector (Trulicity) gabapentin 300 mg capsule 300 mg PO BID #60 caps 12/03/21 01/23/22 Rx insulin glargine 100 unit/mL (3 31 unit (0.31 mL) subcut QPM #15 mL 12/06/21 01/23/22 Rx mL) subcutaneous pen (Basaglar KwikPen U-100 Insulin) diltiazem HCl 360 mg capsule,24 360 mg PO QAM #30 caps 12/19/21 01/23/22 Rx hr,extended release metoprolol tartrate 50 mg tablet 50 mg PO BID #180 tabs 12/27/21 01/23/22 Rx tramadol 50 mg tablet 50 mg PO Q6H PRN pain #60 tabs 12/31/21 01/23/22 Rx doxycycline hyclate 100 mg capsule 100 mg PO BID@1000,2200 knee 01/10/22 01/23/22 History infection levothyroxine 25 mcg tablet 37.5 mcg PO QAM #135 tabs 01/14/22 01/23/22 Rx clonazepam 0.5 mg tablet 0.25 mg PO BID #30 tabs 01/15/22 01/23/22 Rx palbociclib 125 mg tablet (Ibrance) 125 mg PO DIRECTED 01/23/22 01/23/22 History Past Med/Surg History Medical History (Updated 01/23/22 @ 02:10 by Yolette Huang DO) Anemia h/o blood transfusions Anxiety Aortic stenosis Mild aortic stenosis (MERLENE 1.6cm2; MG 7.8mmHg) per 12/2019 echo Atrial fibrillation Cervical spine disease Full ROM per pt Chronic pain Degenerative disc disease Depression Diabetes mellitus, type 2 IDDM Gastroesophageal reflux disease controlled, stable per pt Hx of cardiac pacemaker Implanted 2019 (tachy-monica syndrome), Medtronic device Follows with Dr. Ramires Hypercholesterolemia Hypothyroidism Infiltrating ductal carcinoma of left breast Initial Dx 2015- s/p lumpectomy, XRT and anastrozole Metastatic breast cancer 03/2020, follows with [facility] Liver mass Pt denies but 05/17/20 PET scan shows 2.5 right hepatic lobe mass consistent with known hepatic metastasis Metastatic lung carcinoma Neuropathy Obstructive sleep apnea "Resolved" s/p gastric bypass (? retested) Pacemaker 2019, follows with Dr Ramires. checks Q6 months. Peripheral neuropathy Hands (B/L CTS) Surgical History (Updated 01/18/22 @ 13:44 by Mateo Baker PA-C) H/O bilateral hip replacements History of carpal tunnel surgery of left wrist 06/2021 History of carpal tunnel surgery of right wrist History of section x1 History of colonoscopy History of evacuation of hematoma Hematoma right breast and right chest 08/31/13 Dr. Shah History of removal of Port-a-Cath (01/11/22) Infected port right anterior chest removed Dr. Shah History of surgery Right knee TKA revision with spacer (07/11/2021): SAB at L3-4 (x2 attempts) + PNB at [facility]. No issues noted per post-op anesthesia progress note. History of total knee arthroplasty R/L Port-A-Cath in place Insertion of Mediport Right Subclavian Dr. Shah 06/13/2020 CURRENT RIGHT SIDE S/P cardiac pacemaker procedure 2019 Status post appendectomy Status post arthroscopy of left shoulder Status post gastric bypass for obesity Status post laparoscopic cholecystectomy Status post lumbar spine surgery for decompression of spinal cord Status post panniculectomy Status post partial mastectomy of left breast Status post repair of ventral hernia Status post total abdominal hysterectomy and bilateral salpingo-oophorectomy Family History Unknown Breast cancer Emphysema lung Mother Diabetes Heart disease Father Heart disease Other No family history of adverse response to anesthesia Denies family history of Ovarian cancer Prostate cancer Coronary heart disease Colorectal cancer Social History Smoking Status: Never smoker Tobacco Type: Cigarettes packs per day: 2; Second Hand Exposure: No; Hx Alcohol Use: Yes Alcohol type: beer and wine Hx Substance Use: No Preferred Language: Yakut Communication Ability: Effective Visual Impairment: No Limitations Hearing Ability: Normal 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: No Beliefs That Will Affect Care: None marital status: Current Living Situation: Spouse current occupational status: retired Feels Safe at Home: Yes Childhood Exposure to Second-Hand Smoke: Yes caffeine: Yes Dental Care, Regularly: No Physical Activity Frequency: 1-2 Times per Week Seatbelt Use: always Sunscreen Use: No Assistive Devices: Denture - Upper, Denture - Lower, Glasses and Walker Review of Systems Review of Systems: All systems reviewed & are unremarkable except as noted in HPI & below Physical Exam Physical Exam: General: patient resting comfortably, NAD, non-toxic in appearance, AA&O x 4 Skin: warm, dry, intact, no rashes or lesions HEENT: NC/AT, PERRL, EOMI, anicteric sclera, conjunctiva without injection, external ear normal to inspection and nontender, nares patent, moist mucus membranes, dentition intact, no oropharyngeal lesions, neck supple, trachea midline, no LAD, no thyromegaly, no JVD Heart: +S1/S2, regular, no m/r/g Lungs: equal air entry bilaterally, no rales/rhonchi/wheezes Abd: +BS, soft, NT/ND, no masses/organomegaly/ascites Ext: warm, 2+ pulses in UE/LE bilaterally, no clubbing/cyanosis or edema Neuro: nonfocal, patient AA&O x 4, speech intact, no facial droop, moving all extremities on command with equal strength 5/5 Results & Data Results & Data ([facility]) Vital Signs (Past 12 Hours) Vital Signs Temp Pulse Pulse Resp BP BP Pulse Ox 01/22/22 22:26 62 18 168/69 H 100 01/22/22 19:18 36.9 C 66 18 150/68 H 99 O2 Del Method 01/22/22 22:26 Room Air 01/22/22 19:18 Room Air Laboratory Results Laboratory Results WBC 3.59 K/ul (4.8-10.8) L 01/22/22 21:49 RBC 2.72 M/uL (3.93-5.22) L 01/22/22 21:49 Hgb 10.0 g/dl (12.0-16.0) L 01/22/22 21:49 Hct 29.8 % (34.1-44.9) L 01/22/22 21:49 MCV 109.6 fL (80.0-100.0) H 01/22/22 21:49 MCH 36.8 pg (25.0-34.0) H 01/22/22 21:49 MCHC 33.6 g/dL (32.0-36.0) 01/22/22 21:49 RDW Std Deviation 61.4 fL (36.4-46.3) H 01/22/22 21:49 RDW Coeff of Thompson 15.4 % (11.5-14.5) H 01/22/22 21:49 Plt Count 147 K/uL (130-400) 01/22/22 21:49 MPV 11.4 fL (9.4-12.3) 01/22/22 21:49 Immature Gran % (Auto) 0.3 % 01/22/22 21:49 Neut % (Auto) 44.4 % 01/22/22 21:49 Lymph % (Auto) 46.2 % 01/22/22 21:49 [place] % (Auto) 5.3 % 01/22/22 21:49 Eos % (Auto) 1.9 % 01/22/22 21:49 Baso % (Auto) 1.9 % 01/22/22 21:49 Neut # (Auto) 1.59 K/uL (1.4-6.5) 01/22/22 21:49 Lymph # (Auto) 1.66 K/uL (1.2-3.4) 01/22/22 21:49 [place] # (Auto) 0.19 K/uL (0.24-0.82) L 01/22/22 21:49 Eos # (Auto) 0.07 K/uL (0-0.50) 01/22/22 21:49 Baso # (Auto) 0.07 K/uL (0-0.2) 01/22/22 21:49 Immature Gran # (Auto) 0.01 K/uL (0.00-0.02) 01/22/22 21:49 Absolute Nucleated RBC 0.02 K/uL (0-0) H 01/22/22 21:49 Nucleated RBC % (auto) 0.6 % 01/22/22 21:49 Sodium 136 mmol/L (136-145) 01/22/22 21:49 Potassium 4.7 mmol/L (3.5-5.1) 01/22/22 21:49 Chloride 105 mmol/L (98-107) 01/22/22 21:49 Carbon Dioxide 25 mmol/L (21-32) 01/22/22 21:49 Anion Gap 6 (3-11) 01/22/22 21:49 BUN 17 mg/dl (6-23) 01/22/22 21:49 Creatinine 0.67 mg/dl (0.6-1.2) 01/22/22 21:49 Est Cr Clr Drug Dosing 71.6 ml/min 01/22/22 21:49 Est GFR ( Amer) 101.1 ml/min 01/22/22 21:49 Est GFR (Non-Af Amer) 87.2 ml/min 01/22/22 21:49 BUN/Creatinine Ratio 25.4 (10-20) H 01/22/22 21:49 Glucose 89 mg/dl (70-99(Fasting)) 01/22/22 21:49 POC Glucose 131 mg/dl (70-99) H 01/23/22 01:32 Lactate 0.8 mmol/L (0.4-2.0) 01/22/22 21:49 Calcium 9.1 mg/dl (8.5-10.1) 01/22/22 21:49 Total Bilirubin 0.4 mg/dl (0.2-1.0) 01/22/22 21:49 AST 32 U/L (13-39) 01/22/22 21:49 ALT 43 U/L (7-52) 01/22/22 21:49 Alkaline Phosphatase 53 U/L (34-104) 01/22/22 21:49 Total Protein 7.0 gm/dl (6.0-8.3) 01/22/22 21:49 Albumin 4.2 gm/dl (3.4-5.0) 01/22/22 21:49 Globulin 2.8 gm/dl (2.5-4.0) 01/22/22 21:49 Albumin/Globulin Ratio 1.5 (0.9-2) 01/22/22 21:49 SARS-CoV-2, RNA, NAAT NEGATIVE (NEGATIVE) 01/22/22 22:33 Code Status & VTE Plan VTE Prophylaxis Plan VTE Prophylaxis will be ordered: Yes PG Care Time/CCT Total # of Minutes Spent Total Time Spent with Patient: Total time spent is greater than 50% in coordination of care (as documented) at patient's floor/unit and/or counseling patient: Coding Level of Care Code 87925 Initial Inpt Care Lvl 3 Diagnoses MRSA (methicillin resistant staph aureus) culture positive Z22.322 Chronic GERD K21.9 Diabetes type 2, controlled E11.9 Atrial fibrillation I48.91 Atrial fibrillation type: unspecified (1) Atrial fibrillation Atrial fibrillation type: unspecified Qualified Code(s): I48.91 - Unspecified atrial fibrillation
[2022-01-23] MEDS ORDERED: VANCOMYCIN CONSULT ACTIVE PRN (01:22)
[2022-01-23] MEDS ORDERED: ONDANSETRON INJ 2 MG/ML 2 ML VIAL IV PRN (01:22)
[2022-01-23] MEDS: ACETAMINOPHEN 325 MG TAB PO PRN ×2 (02:03→21:08)
[2022-01-23] MEDS ORDERED: GLUCAGON FOR INJ 1 MG VIAL SQ PRN (02:12)
[2022-01-23] MEDS ORDERED: DEXTROSE 50% 50 ML SYRINGE IV PRN (02:12)
[2022-01-23] MEDS ORDERED: GLUCOSE 10 TAB/TUBE PO PRN (02:12)
[2022-01-23] MEDS ORDERED: GLUCOSE 40% GEL 15 GM TUBE PO PRN (02:12)
[2022-01-23] MEDS ORDERED: PALBOCICLIB 125 MG PO SCH (02:15)
[2022-01-23 03:02] LABS: Magnesium 2.1 mg/dl (1.7-2.4); Phosphorus 3.3 mg/dl (2.5-4.9)
[2022-01-23] MEDS: LEVOTHYROXINE SODIUM 25 MCG TABLET PO SCH (05:58)
[2022-01-23] MEDS: VANCOMYCIN HCL 1,000 MG in SODIUM CHLORIDE 0.9% 250 ML IV SCH ×2 (06:00→16:32)
[2022-01-23 06:56] LABS: Basophils # (auto) 0.06 K/uL (0-0.2); Basophils % (auto) 1.6 %; Eosinophils # (auto) 0.08 K/uL (0-0.50); Eosinophils % (auto) 2.1 %; Hematocrit (blood only) 27.6 % (34.1-44.9); Hemoglobin 9.3 g/dl (12.0-16.0); Immature Granulocytes # (auto) 0.02 K/uL (0.00-0.02); Immature Granulocytes % (auto) 0.5 %; Lymphocytes # (auto) 1.22 K/uL (1.2-3.4); Mean Corpuscular Hemoglobin 36.3 pg (25.0-34.0); Mean Corpuscular Hgb Conc 33.7 g/dL (32.0-36.0); Mean Corpuscular Volume 107.8 fL (80.0-100.0); Mean Platelet Volume 11.6 fL (9.4-12.3); Monocytes # (auto) 0.26 K/uL (0.24-0.82); Monocytes % (auto) 6.8 %; Neutrophils # (auto) 2.17 K/uL (1.4-6.5); Platelet Count 155 K/uL (130-400); RDW Coefficient of Variation 15.2 % (11.5-14.5); RDW Standard Deviation 59.7 fL (36.4-46.3); Red Blood Count 2.56 M/uL (3.93-5.22); White Blood Count 3.81 K/ul (4.8-10.8)
[2022-01-23 07:22] LABS: BUN Creatinine Ratio 24.2 (10-20); Calcium 8.6 mg/dl (8.5-10.1); Est GFR (African American) 103.7 ml/min; Est GFR (Non-African American) 89.5 ml/min
[2022-01-23] MEDS: METOPROLOL TARTRATE 50 MG TAB PO SCH ×2 (07:47→21:10)
[2022-01-23] MEDS: APIXABAN 5 MG TABLET PO SCH ×2 (07:47→21:09)
[2022-01-23] MEDS: GABAPENTIN 300 MG CAP PO SCH ×2 (07:47→21:11)
[2022-01-23] MEDS: DULoxetine HCL 60 MG CAP PO SCH (07:48)
[2022-01-23] MEDS: DULoxetine HCL 30 MG CAP PO SCH (07:48)
[2022-01-23] MEDS: PANTOprazole 40 MG TAB PO SCH (07:48)
[2022-01-23] MEDS: dilTIAZem HCL 180 MG CAPCR PO SCH (07:48)
[2022-01-23] MEDS: clonazePAM 0.25 MG TAB PO SCH ×2 (08:04→21:08)
[2022-01-23] MEDS: INSULIN ASPART PER UNIT SC SCH ×4 (08:50→21:09)
[2022-01-23] MEDS: LANTUS PER UNIT CHARGE SQ SCH ×2 (08:51→21:09)
[2022-01-23] MEDS: traMADol HCL 50 MG TABLET PO PRN ×3 (09:00→23:24)
[2022-01-23] MEDS ORDERED: PALBOCICLIB PO SCH (09:00)
--- NOTE | 2022-01-23 09:26 | Pharmacy Report ---
Pharmacy Vanc AUC Short Note - Date of Service January 23, 2022 - Assessment & Plan Assessment 71 year old F started on vancomycin for coag neg staph infection from infected port. Per notes, port removed 01/11 - culture only sensitive to daptomycin and vancomycin. PMHx significant for metastatic breast cancer, DM, hld. Blood cultures pending at this time. Day # 2 of antimicrobial therapy. Plan Vancomycin * AUC/FERNANDO is the preferred PK/PD target for vancomycin * AUC guided dosing is effective and associated with decreased risk of nephrotoxicity compared to traditional trough targets * Patient received loading dose of vancomycin 1500 mg x 1 last evening. (~20 m g/kg/dose) * She was started on vancomycin 1gm iv q 12 hrs - this dosing is predicted to produce a trough level of ~17 mcg/mL is predicted to achieve target AUC/FERNANDO of 400-600 mg/L.hr and may be associated with a 13 % risk of nephrotoxicity * Plan to order a level tomorrow AM to confirm current dosing achieving adequate levels. Pharmacy will continue to follow and will adjust dose/frequency as necessary. Thank you.
--- NOTE | 2022-01-23 14:37 | Hospitalist Progress Note ---
Date of Service January 23, 2022 Assessment & Plan (1) MRSA (methicillin resistant staph aureus) culture positive: Plan: Patient status post removal of right chest port. Cultures from the port have grown coag negative staph, oxacillin resistant. Sensitive to vancomycin (al;though FERNANDO 2) - will switch to daptomycin. She is presently afebrile, hemodynamically stable and nontoxic in appearance. Blood cultures from today drawn and are thus far negative Continue to follow cultures - would be suprised if these are not positive and if negative even then would consider aspiration of her right knee effusion to make sure this is not infected Continue daptomycin Consider ID consult once cultures back Should patient's blood cultures become positive would need serial cultures as well as echocardiogram, ortho consult for right knee. (2) Chronic GERD: Plan: Chronic. Stable. Continue Protonix (3) Diabetes type 2, controlled: Plan: Chronic. Continue insulin, sliding scale hypoglycemia today - will switch Lantus to 10 units HS and loosen Novolog to correction factor 45 and carb ratio 15 (4) Atrial fibrillation: Plan: Rate controlled. Continue Eliquis 5 mg p.o. twice daily Continue metoprolol, diltiazem Continue to monitor Plan VTE Prophylaxis - Eliquis Diet - T2DM Disposition - continue on med/tele until IE ruled out Admission and Anticipated Discharge Date Admission Date: January 22, 2022 Subjective Patient with previously infected right knee TKA with coag negative staph. This was replaced in September this year by Dr Huang. She reports it has been bothering her since. Port had been causing her problems for the last month. Removed by Alyssa on 01/11 and cultures taken at that time also growing coag negative staph. Blood cultures pending from yesterday. Patient just feels generally run down and tired. No significant change of symptoms from admission. Review of Systems Review of Systems: All systems reviewed & are unremarkable except as noted in Subjective Physical Exam Constitutional: WD/WN, vitals as above Respiratory: normal respiratory effort, lungs clear to auscultation Cardiovascular: RRR, no murmur, no edema Gastrointestinal (Abdomen): normal bowel sounds, soft, nontender, no hepatosplenomegaly Musculoskeletal: Knee: + effusion (right knee with associated tenderness to palpation) Skin: Tenderness but no erythema over port removal site, mild fluctuance Psychiatric: A+Ox3, euthymic affect Results & Data Results & Data ([facility]) Vital Signs (Past 12 Hours) Vital Signs Temp Pulse Resp BP BP Pulse Ox O2 Del Method 01/23/22 11:35 36.8 C 73 20 126/69 99 Room Air 01/23/22 07:49 36.6 C 67 18 147/73 H 96 Room Air PG Care Time/CCT Total # of Minutes Spent Total Time Spent with Patient: Total time spent is greater than 50% in coordination of care (as documented) at patient's floor/unit and/or counseling patient: Coding Level of Care Code 27240 Subseq Hosp Care Lvl 3 Diagnoses MRSA (methicillin resistant staph aureus) culture positive Z22.322 Chronic GERD K21.9 Diabetes type 2, controlled E11.9 Atrial fibrillation I48.91 Atrial fibrillation type: unspecified (1) Atrial fibrillation Atrial fibrillation type: unspecified Qualified Code(s): I48.91 - Unspecified atrial fibrillation
[2022-01-23] MEDS: CARBOHYDRATES FOR HYPOGLYCEMIA PO PRN (16:50)
[2022-01-23] MEDS: DAPTOmycin 350 MG in SYRINGE 0 ML IV SCH (19:30)
[2022-01-23] MEDS ORDERED: ATORVASTATIN 40 MG TAB PO SCH (21:00)
[2022-01-23] MEDS ORDERED: ARTIFICIAL TEARS OP PRN (21:56)
[2022-01-24] MEDS ORDERED: VANCOMYCIN LEVEL ONE (05:30)
[2022-01-24] MEDS: LEVOTHYROXINE SODIUM 25 MCG TABLET PO SCH (05:59)
[2022-01-24] MEDS: ACETAMINOPHEN 500 MG TAB PO PRN ×3 (05:59→22:02)
[2022-01-24 08:48] LABS: Creatinine Clr Calc Pharmacy 65.4 ml/min; Est GFR (African American) 94.7 ml/min; Est GFR (Non-African American) 81.7 ml/min
[2022-01-24] MEDS: clonazePAM 0.25 MG TAB PO SCH ×2 (09:30→22:00)
[2022-01-24] MEDS: APIXABAN 5 MG TABLET PO SCH ×2 (09:30→22:00)
[2022-01-24] MEDS: DULoxetine HCL 30 MG CAP PO SCH (09:30)
[2022-01-24] MEDS: INSULIN ASPART PER UNIT SC SCH ×4 (09:30→21:59)
[2022-01-24] MEDS: dilTIAZem HCL 180 MG CAPCR PO SCH (09:31)
[2022-01-24] MEDS: METOPROLOL TARTRATE 50 MG TAB PO SCH ×2 (09:31→22:01)
[2022-01-24] MEDS: PANTOprazole 40 MG TAB PO SCH (09:31)
[2022-01-24] MEDS: GABAPENTIN 300 MG CAP PO SCH ×2 (09:31→22:01)
[2022-01-24] MEDS: DULoxetine HCL 60 MG CAP PO SCH (09:31)
[2022-01-24] MEDS: traMADol HCL 50 MG TABLET PO PRN (15:19)
[2022-01-24] MEDS: CARBOHYDRATES FOR HYPOGLYCEMIA PO PRN (16:38)
[2022-01-24] MEDS ORDERED: PHARMACY GLYCEMIC MGMT CONSULT PRN (17:34)
[2022-01-24] MEDS: DAPTOmycin 350 MG in SYRINGE 0 ML IV SCH (17:39)
--- NOTE | 2022-01-24 19:27 | Pharmacy Report ---
Pharmacy Glycemic Short Note 2 - Date of Service January 24, 2022 - Glycemic Short BSG Results (Last 24 hours): 01/23/22 01/24/22 01/24/22 20:03 07:24 11:29 POC Glucose 139 H 103 H 116 H 01/24/22 01/24/22 01/24/22 16:33 16:34 16:52 POC Glucose 63 L* 55 L* 71 OUTPATIENT ANTIDIABETIC REGIMEN: * Basaglar 31 units SC HS * Glipizide 5 mg PO daily * Trulicity 3 mg SC weekly (Fridays) HbA1c: 5.9% (10/03/21) ASSESSMENT: * CHARLEE is a 71 year old female admitted last evening (01/23/22) upon referral for IV antibiotics to treat infected chest port * PMH includes metastatic breast cancer * Pharmacy consulted for glycemic management this evening due to multiple episodes of hypoglycemia * Patient has very well-controlled T2DM with insulin, glipizide, and GLP-1 agonist * Will remove carb ratio and reduce basal insulin today in light of lows PLAN FOR INPATIENT GLYCEMIC CONTROL: * Hold outpatient oral diabetes medications * Basal insulin - decrease * Lantus 0-5 units SC HS * Bolus insulin * NovoLog per scale ACHS or Q6hrs while NPO * Goal Range: Low 110 mg/dL - High 140 mg/dL * Correction Factor: 45 mg/dL/unit * hold carb coverage
[2022-01-24] MEDS ORDERED: LANTUS PER UNIT CHARGE SQ SCH ×2 (21:00)
--- NOTE | 2022-01-24 21:59 | Hospitalist Progress Note ---
Date of Service January 24, 2022 Assessment & Plan (1) MRSA (methicillin resistant staph aureus) culture positive: Plan: Patient status post removal of right chest port. Cultures from the port have grown coag negative staph, oxacillin resistant. Sensitive to vancomycin (al;though FERNANDO 2) - will switch to daptomycin. She is presently afebrile, hemodynamically stable and nontoxic in appearance. Blood cultures from today drawn and are thus far negative Continue to follow cultures - would be suprised if these are not positive and if negative even then would consider aspiration of her right knee effusion to make sure this is not infected Continue daptomycin Consider ID consult once cultures back Should patient's blood cultures become positive would need serial cultures as well as echocardiogram, ortho consult for right knee will be ordered as patient has not been seen. (2) Chronic GERD: Plan: Chronic. Stable. Continue Protonix (3) Diabetes type 2, controlled: Plan: Chronic. Continue insulin, sliding scale hypoglycemia today - will switch Lantus to 10 units HS and loosen Novolog to correction factor 45 and carb ratio 15 (4) Atrial fibrillation: Plan: Rate controlled. Continue Eliquis 5 mg p.o. twice daily Continue metoprolol, diltiazem Continue to monitor Plan VTE Prophylaxis - Eliquis Diet - T2DM Disposition - continue on med/tele until IE ruled out Admission and Anticipated Discharge Date Admission Date: January 22, 2022 Subjective 89 yo female reports feeling fatigued. She continues to have weakness and knee pain Review of Systems Review of Systems: All systems reviewed & are unremarkable except as noted in HPI & below Physical Exam Constitutional: WD/WN, vitals as above Respiratory: normal respiratory effort, lungs clear to auscultation Cardiovascular: RRR, no murmur, no edema Gastrointestinal (Abdomen): normal bowel sounds, soft, nontender, no hepatosplenomegaly Musculoskeletal: Knee: + effusion (right knee with associated tenderness to palpation) Psychiatric: A+Ox3, euthymic affect Results & Data Results & Data ([facility]) Vital Signs (Past 12 Hours) Vital Signs Temp Pulse Resp BP Pulse Ox O2 Del Method 01/24/22 18:40 36.6 C 64 20 105/55 L 100 Room Air 01/24/22 14:40 36.6 C 60 18 106/54 L 98 Room Air PG Care Time/CCT Total # of Minutes Spent Total Time Spent with Patient: Total time spent is greater than 50% in coordination of care (as documented) at patient's floor/unit and/or counseling patient: Coding Level of Care Code 03934 Subseq Hosp Care Lvl 2 Diagnoses MRSA (methicillin resistant staph aureus) culture positive Z22.322 Chronic GERD K21.9 Diabetes type 2, controlled E11.9 Atrial fibrillation I48.91 Atrial fibrillation type: unspecified (1) Atrial fibrillation Atrial fibrillation type: unspecified Qualified Code(s): I48.91 - Unspecified atrial fibrillation
[2022-01-25] MEDS: traMADol HCL 50 MG TABLET PO PRN ×3 (02:05→22:01)
[2022-01-25] MEDS: LEVOTHYROXINE SODIUM 25 MCG TABLET PO SCH (06:30)
[2022-01-25 08:20] LABS: Creatinine Clr Calc Pharmacy 59.5 ml/min; Est GFR (African American) 85.5 ml/min; Est GFR (Non-African American) 73.7 ml/min
[2022-01-25] MEDS: INSULIN ASPART PER UNIT SC SCH ×4 (08:47→21:50)
[2022-01-25] MEDS: ACETAMINOPHEN 500 MG TAB PO PRN (08:54)
[2022-01-25] MEDS: clonazePAM 0.25 MG TAB PO SCH ×2 (08:55→22:03)
[2022-01-25] MEDS: DULoxetine HCL 30 MG CAP PO SCH (08:56)
[2022-01-25] MEDS: dilTIAZem HCL 180 MG CAPCR PO SCH (08:56)
[2022-01-25] MEDS: PANTOprazole 40 MG TAB PO SCH (08:56)
[2022-01-25] MEDS: METOPROLOL TARTRATE 50 MG TAB PO SCH ×2 (08:56→22:03)
[2022-01-25] MEDS: APIXABAN 5 MG TABLET PO SCH ×2 (08:56→22:00)
[2022-01-25] MEDS: GABAPENTIN 300 MG CAP PO SCH ×2 (08:56→22:02)
[2022-01-25] MEDS: DULoxetine HCL 60 MG CAP PO SCH (08:57)
--- NOTE | 2022-01-25 13:18 | Orthopedic Consultation ---
Date of Service January 25, 2022 Assessment & Plan (1) Status post revision of total replacement of right knee: Unfortunate she is really struggling with her right knee. She is struggled with it before her original procedure with complaints of pain and instability, and she struggles with it months after her procedure with complaints of pain and instability. She has a cemented hinged knee replacement. I do not see any signs of infection. I did not feel enough fluid in her knee to warrant an aspiration. I did order a sed rate and CRP. I realized that she has a port infection but I would like to see what her baseline values are. I also want a get some x-rays of her right knee to make sure were not missing anything else. She is currently on Daptomycin for her port infection and Eliquis for DVT prophylaxis. We will see what the labs look like and I will continue to follow. History of Present Illness Reason for Consultation: Painful right knee replacement . Requesting Physician: . Attending Physician: Ulysses Cuevas is a pleasant 72-year-old female who underwent a right knee replacement by Dr. Estela grant in 1993. She did well for a while. She then began having increased pain and instability of her knee. The instability was one of her biggest complaints. Complete work-up was suggestive of possible infection. Attempt was made at chronic suppressive treatment given her multiple medical comorbidities, however, due to the pain and instability she elected to proceed with removal of the implant and placement of an antibiotic cement spacer in June 2021. She did well with that and in September 2021 she had the cement spacer removed and a hinged knee replacement was placed. Unfortunately she is still complaining of pain and instability of her knee. She has been seen back in our office and she has developed a little bit of a prepatellar bursitis. This has been drained twice. There has been no signs of infection. She is recently been in admitted to the hospital for an infected port. She still complaining of knee pain and instability. Orthopedics was consulted to evaluate and treat. . Allergies Allergy/AdvReac Type Severity Reaction Status Date / Time metformin AdvReac Unknown Insomnia Verified 01/22/22 15:27 Home Medications Medication Instructions Recorded Confirmed Type multivitamin 1 tab PO QAM 02/04/18 01/23/22 History cholecalciferol (vitamin D3) 25 1,000 unit PO QAM 07/29/19 01/23/22 History mcg (1,000 unit) capsule (Vitamin D3) calcium 600 mg capsule 600 mg PO QAM 09/27/20 01/23/22 History thiamine HCl (vitamin B1) 100 mg 100 mg PO QAM #30 tabs 01/02/21 01/23/22 Rx tablet (Vitamin B-1) syringe with needle 3 mL 25 gauge #100 ea 02/22/21 01/22/22 Rx x 1" (BD Luer-Veronica Syringe) atorvastatin 40 mg tablet 40 mg PO HS #90 tabs 03/26/21 01/23/22 Rx cyanocobalamin (vitamin B-12) 1,000 mcg IM MONTHLY #1 ea 05/23/21 01/23/22 Rx 1,000 mcg/mL injection kit duloxetine 60 mg capsule,delayed 60 mg PO QAM 05/28/21 01/23/22 History release (Cymbalta) pen needle, diabetic 32 gauge x #100 ea 06/11/21 01/22/22 Rx 5/32" (Easy Comfort Pen Aurora) blood sugar diagnostic (OneTouch #100 ea 06/20/21 01/22/22 Rx Ultra Test strips) palbociclib 125 mg tablet (Ibrance) 125 mg PO UD 07/06/21 01/23/22 History ondansetron HCl 4 mg tablet 4 mg PO Q8H PRN Nausea 07/11/21 01/23/22 History pantoprazole 40 mg tablet,delayed 40 mg PO QAM 07/11/21 01/23/22 History release (Protonix) fulvestrant 250 mg/5 mL 500 mg IM Q28D 07/27/21 01/23/22 History intramuscular syringe (Faslodex) duloxetine 30 mg capsule,delayed 30 mg PO QAM #60 caps 08/08/21 01/23/22 Rx release (Cymbalta) diclofenac sodium 1 % topical gel 2 g topical UD PRN Pain 08/13/21 01/23/22 History (Voltaren Arthritis Pain) OneTouch Delica Plus Lancet 33 #300 ea 08/15/21 01/22/22 Rx gauge (lancets) OneTouch Delica Plus Lancing #1 ea 08/15/21 01/22/22 Rx Device kit (lancing device with lancets) glipizide 5 mg tablet 5 mg PO QAM #90 tabs 09/06/21 01/23/22 Rx apixaban 5 mg tablet (Eliquis) 5 mg PO BID #60 tabs 09/10/21 01/23/22 Rx meclizine 25 mg tablet 25 mg PO UD PRN dizziness 10/01/21 01/23/22 History acetaminophen 500 mg tablet 1,000 mg PO TID PRN Pain #90 tabs 11/09/21 01/23/22 Rx (Tylenol Extra Strength) dulaglutide 3 mg/0.5 mL 3 mg (0.5 mL) subcut WK #2 mL 11/29/21 01/23/22 Rx subcutaneous pen injector (Trulicity) gabapentin 300 mg capsule 300 mg PO BID #60 caps 12/03/21 01/23/22 Rx insulin glargine 100 unit/mL (3 31 unit (0.31 mL) subcut QPM #15 mL 12/06/21 01/23/22 Rx mL) subcutaneous pen (Basaglar KwfranciscoPen U-100 Insulin) diltiazem HCl 360 mg capsule,24 360 mg PO QAM #30 caps 12/19/21 01/23/22 Rx hr,extended release metoprolol tartrate 50 mg tablet 50 mg PO BID #180 tabs 12/27/21 01/23/22 Rx tramadol 50 mg tablet 50 mg PO Q6H PRN pain #60 tabs 12/31/21 01/23/22 Rx doxycycline hyclate 100 mg capsule 100 mg PO BID@1000,2200 knee 01/10/22 01/23/22 History infection levothyroxine 25 mcg tablet 37.5 mcg PO QAM #135 tabs 01/14/22 01/23/22 Rx clonazepam 0.5 mg tablet 0.25 mg PO BID #30 tabs 01/15/22 01/23/22 Rx palbociclib 125 mg tablet (Ibrance) 125 mg PO DIRECTED 01/23/22 01/23/22 History Past Med/Surg History Medical History Anemia h/o blood transfusions Anxiety Aortic stenosis Mild aortic stenosis (MERLENE 1.6cm2; MG 7.8mmHg) per 12/2019 echo Atrial fibrillation Cervical spine disease Full ROM per pt Chronic pain Degenerative disc disease Depression Diabetes mellitus, type 2 IDDM Gastroesophageal reflux disease controlled, stable per pt Hx of cardiac pacemaker Implanted 2019 (tachy-monica syndrome), Medtronic device Follows with Dr. Ramires Hypercholesterolemia Hypothyroidism Infiltrating ductal carcinoma of left breast Initial Dx 2015- s/p lumpectomy, XRT and anastrozole Metastatic breast cancer 03/2020, follows with [facility] Liver mass Pt denies but 05/17/20 PET scan shows 2.5 right hepatic lobe mass consistent with known hepatic metastasis Metastatic lung carcinoma Neuropathy Obstructive sleep apnea "Resolved" s/p gastric bypass (? retested) Pacemaker 2019, follows with Dr Ramires. checks Q6 months. Peripheral neuropathy Hands (B/L CTS) Surgical History H/O bilateral hip replacements History of carpal tunnel surgery of left wrist 06/2021 History of carpal tunnel surgery of right wrist History of section x1 History of colonoscopy History of evacuation of hematoma Hematoma right breast and right chest 08/31/13 Dr. Shah History of removal of Port-a-Cath (01/11/22) Infected port right anterior chest removed Dr. Shah History of surgery Right knee TKA revision with spacer (07/11/2021): SAB at L3-4 (x2 attempts) + PNB at [facility]. No issues noted per post-op anesthesia progress note. History of total knee arthroplasty R/L Port-A-Cath in place Insertion of Mediport Right Subclavian Dr. Shah 06/13/2020 CURRENT RIGHT SIDE S/P cardiac pacemaker procedure 2019 Status post appendectomy Status post arthroscopy of left shoulder Status post gastric bypass for obesity Status post laparoscopic cholecystectomy Status post lumbar spine surgery for decompression of spinal cord Status post panniculectomy Status post partial mastectomy of left breast Status post repair of ventral hernia Status post total abdominal hysterectomy and bilateral salpingo-oophorectomy Family History Unknown Breast cancer Emphysema lung Mother Diabetes Heart disease Father Heart disease Other No family history of adverse response to anesthesia Denies family history of Ovarian cancer Prostate cancer Coronary heart disease Colorectal cancer Social History Smoking Status: Former smoker Tobacco Type: Cigarettes packs per day: 2; Smoking End Date: 15 years ago; Second Hand Exposure: No; Hx Alcohol Use: No Hx Substance Use: No Preferred Language: Faroese Communication Ability: Effective Visual Impairment: No Limitations Hearing Ability: Normal Pot Runner Required: No Beliefs That Will Affect Care: None marital status: Current Living Situation: Spouse current occupational status: retired Feels Safe at Home: Yes Safety Concerns: Feels Safe At This Time Childhood Exposure to Second-Hand Smoke: Yes caffeine: Yes Dental Care, Regularly: No Physical Activity Frequency: 1-2 Times per Week Seatbelt Use: always Sunscreen Use: No Assistive Devices: Walker Review of Systems All systems reviewed & are unremarkable except as noted in HPI & below. Physical Exam On physical examination of her right knee, She has her knee bent at 90 degrees when I entered the room. She was eating at bedside. She was complaining of a lot of pain in the knee. I extended her knee to full extension. I did not feel much of an effusion within the knee joint itself. There is no signs of infection. She has a very mild prepatellar bursitis. I tried to flex her knee to 45 degrees and then it was very painful. She is felt she could not go beyond there. I did not pick up operator any gross instability of her right knee. There is no signs of large effusion, no erythema, no signs of recurrent infection. . Constitutional WD/WN, vitals as above Eyes PERRL, conjunctivae normal, anicteric sclerae ENMT external ear and nose normal, oropharynx normal Neck trachea midline, no thyromegaly Respiratory normal respiratory effort, lungs clear to auscultation Cardiovascular RRR, no murmur, no edema Gastrointestinal (Abdomen) normal bowel sounds, soft, nontender, no hepatosplenomegaly Skin no rashes, warm and dry Psychiatric A+Ox3, euthymic affect Results & Data Results & Data Laboratory Results . Diagnostic Findings . PG Care Time/CCT Total # of Minutes Spent Total Time Spent with Patient: Total time spent is greater than 50% in coordination of care (as documented) at patient's floor/unit and/or counseling patient: Coding Level of Care Code 34852 Inpt Consult Level 4 Diagnoses Status post revision of total replacement of right knee Z96.651
--- NOTE | 2022-01-25 13:25 | XRay Report ---
RIGHT KNEE 2 VIEWS CLINICAL HISTORY: Right knee pain. FINDINGS: AP and crosstable lateral views of the right knee are compared to study dated 10/08/2021. Th e skeletal structures are osteopenic. No fracture is seen. The distal femur is surgically absent. A h inged right knee arthroplasty is in near anatomic alignment. No periprosthetic lucency is identified. There has been undersurface remodeling of the patella. There is a joint effusion. Mild soft tissue s welling is present around the knee. Atherosclerotic calcification is observed in the popliteal artery . IMPRESSION: 1. No acute bony abnormality is identified. 2. A hinged right knee arthroplasty is in near anatomic alignment. 3. Soft tissue swelling and joint effusion. Electronically signed by: Noe Carrillo M.D. 01/25/2022 1:23 PM
--- NOTE | 2022-01-25 14:22 | Pharmacy Report ---
Pharmacy Glycemic Short Note 2 - Date of Service January 25, 2022 - Glycemic Short BSG Results (Last 24 hours): 01/24/22 01/24/22 01/24/22 16:33 16:34 16:52 POC Glucose 63 L* 55 L* 71 01/24/22 01/24/22 01/25/22 20:40 21:45 07:35 POC Glucose 205 H 158 H 125 H 01/25/22 11:34 POC Glucose 110 H OUTPATIENT ANTIDIABETIC REGIMEN: * Basaglar 31 units SC HS * Glipizide 5 mg PO daily * Trulicity 3 mg SC weekly (Fridays) HbA1c: 5.9% (10/03/21) ASSESSMENT: * BSGs yesterday were 925-102-87-158 mg/dL. Today's BSGs are 125-110 mg/dL. * Patient received 9 units of bolus insulin yesterday. * Previous hospitalizations included the following regimen: Lantus 10-15 units HS plus Novolog CF 50 CR 15-18 * Will resume above Novolog. Will start low dose Lantus at 5 units since patient has had some hypoglycemia. Background * CHARLEE is a 71 year old female admitted last evening (01/23/22) upon referral for IV antibiotics to treat infected chest port * PMH includes metastatic breast cancer * Pharmacy consulted for glycemic management this evening due to multiple episodes of hypoglycemia * Patient has very well-controlled T2DM with insulin, glipizide, and GLP-1 agonist * Will remove carb ratio and reduce basal insulin today in light of lows PLAN FOR INPATIENT GLYCEMIC CONTROL: * Hold outpatient oral diabetes medications * Basal insulin * Lantus 5 units SC HS * Bolus insulin * NovoLog per scale ACHS or Q6hrs while NPO * Goal Range: Low 110 mg/dL - High 140 mg/dL * Correction Factor: 50 mg/dL/unit * Carbohydrate Ratio: 18
[2022-01-25] MEDS: DAPTOmycin 350 MG in SYRINGE 0 ML IV SCH (17:04)
--- NOTE | 2022-01-25 17:34 | Hospitalist Progress Note ---
Date of Service January 25, 2022 Assessment & Plan (1) MRSA (methicillin resistant staph aureus) culture positive: Plan: Patient status post removal of right chest port. Cultures from the port have grown coag negative staph, oxacillin resistant. Sensitive to vancomycin (al;though FERNANDO 2) - will switch to daptomycin. She is presently afebrile, hemodynamically stable and nontoxic in appearance. Blood cultures from today drawn and are thus far negative Continue to follow cultures - Continue daptomycin Consider ID consult: will discuss on 01/26 via tiger text. Should patient's blood cultures become positive would need serial cultures as well as echocardiogram, ortho consult for right knee will be ordered as patient has not been seen. (2) Chronic GERD: Plan: Chronic. Stable. Continue Protonix (3) Diabetes type 2, controlled: Plan: Chronic. Continue insulin, sliding scale hypoglycemia today - will switch Lantus to 10 units HS and loosen Novolog to correction factor 45 and carb ratio 15 (4) Atrial fibrillation: Plan: Rate controlled. Continue Eliquis 5 mg p.o. twice daily Continue metoprolol, diltiazem Continue to monitor Plan VTE Prophylaxis - Eliquis Diet - T2DM Disposition - continue on med/tele until IE ruled out Admission and Anticipated Discharge Date Admission Date: January 22, 2022 Subjective 72 yo female reports feeling more energetic today. She continues to have pain in her right knee. Review of Systems Review of Systems: All systems reviewed & are unremarkable except as noted in HPI & below Physical Exam Constitutional: WD/WN, vitals as above Respiratory: normal respiratory effort, lungs clear to auscultation Cardiovascular: RRR, no murmur, no edema Gastrointestinal (Abdomen): normal bowel sounds, soft, nontender, no hepatosplenomegaly Musculoskeletal: Knee: + effusion (right knee with associated tenderness to palpation) Psychiatric: A+Ox3, euthymic affect Results & Data Results & Data ([facility]) Vital Signs (Past 12 Hours) Vital Signs Temp Pulse Resp BP Pulse Ox O2 Del Method 01/25/22 14:23 36.5 C 64 18 114/61 97 Room Air 01/25/22 07:37 36.5 C 63 18 139/81 99 Room Air PG Care Time/CCT Total # of Minutes Spent Total Time Spent with Patient: Total time spent is greater than 50% in coordination of care (as documented) at patient's floor/unit and/or counseling patient: Coding Level of Care Code 92308 Subseq Hosp Care Lvl 3 Diagnoses MRSA (methicillin resistant staph aureus) culture positive Z22.322 Chronic GERD K21.9 Diabetes type 2, controlled E11.9 Atrial fibrillation I48.91 Atrial fibrillation type: unspecified Time Spent (min) 35 (1) Atrial fibrillation Atrial fibrillation type: unspecified Qualified Code(s): I48.91 - Unspecified atrial fibrillation
[2022-01-25] MEDS: LANTUS PER UNIT CHARGE SQ SCH (23:05)
[2022-01-25] MEDS: ACETAMINOPHEN 325 MG TAB PO PRN (23:08)
[2022-01-26] MEDS: LEVOTHYROXINE SODIUM 25 MCG TABLET PO SCH (06:00)
[2022-01-26 07:11] LABS: Hematocrit (blood only) 25.2 % (34.1-44.9); Hemoglobin 8.5 g/dl (12.0-16.0); Mean Corpuscular Hemoglobin 36.5 pg (25.0-34.0); Mean Corpuscular Hgb Conc 33.7 g/dL (32.0-36.0); Mean Corpuscular Volume 108.2 fL (80.0-100.0); Mean Platelet Volume 11.9 fL (9.4-12.3); Platelet Count 132 K/uL (130-400); RDW Coefficient of Variation 15.5 % (11.5-14.5); Red Blood Count 2.33 M/uL (3.93-5.22); White Blood Count 2.22 K/ul (4.8-10.8)
[2022-01-26 07:35] LABS: Alanine Aminotransferase 35 U/L (7-52); Albumin Globulin Ratio 1.7 (0.9-2); Albumin Level 3.8 gm/dl (3.4-5.0); Alkaline Phosphatase 45 U/L (34-104); Anion Gap 5 (3-11); Aspartate Aminotransferase 27 U/L (13-39); BUN Creatinine Ratio 31.7 (10-20); Bilirubin,Total 0.3 mg/dl (0.2-1.0); Blood Urea Nitrogen 20 mg/dl (6-23); C Reactive Protein < 0.50 mg/dl (0-0.5); Carbon Dioxide 28 mmol/L (21-32); Chloride 105 mmol/L (98-107); Creatinine Clr Calc Pharmacy 74.6 ml/min; Est GFR (African American) 102.4 ml/min; Est GFR (Non-African American) 88.4 ml/min; Globulin 2.3 gm/dl (2.5-4.0); Glucose 124 mg/dl (70-99(Fasting)); Potassium 4.3 mmol/L (3.5-5.1); Sodium 138 mmol/L (136-145); Total Protein 6.1 gm/dl (6.0-8.3)
[2022-01-26] MEDS: INSULIN ASPART PER UNIT SC SCH ×4 (08:18→21:21)
[2022-01-26] MEDS: PANTOprazole 40 MG TAB PO SCH (08:24)
[2022-01-26] MEDS: METOPROLOL TARTRATE 50 MG TAB PO SCH ×2 (08:24→21:00)
[2022-01-26] MEDS: APIXABAN 5 MG TABLET PO SCH ×2 (08:24→21:03)
[2022-01-26] MEDS: GABAPENTIN 300 MG CAP PO SCH ×2 (08:24→21:03)
[2022-01-26] MEDS: dilTIAZem HCL 180 MG CAPCR PO SCH (08:24)
[2022-01-26] MEDS: DULoxetine HCL 30 MG CAP PO SCH (08:24)
[2022-01-26] MEDS: clonazePAM 0.25 MG TAB PO SCH ×2 (08:28→21:02)
[2022-01-26] MEDS: ACETAMINOPHEN 325 MG TAB PO PRN (08:30)
--- NOTE | 2022-01-26 08:42 | Orthopedic Progress Note ---
Date of Service January 26, 2022 Assessment & Plan (1) Status post revision of total replacement of right knee: Fortunately her lab values are negative. Her CRP was less than 0.5 and her sed rate was 33. She does not have any significant joint effusion and there is no signs of infection. She has decent motion of her knee. The x-rays show the hinged prosthesis to be in good alignment. I explained to her that she has a hinged knee prosthesis so she cannot have any true instability from the knee joint. She still having pain in her knee and I understand that. She does have a history of 2 previous lumbar operations in the past. It is difficult to tell how much of this could be radicular in nature versus weakness of her right quad versus a painful knee replacement as she is only 4 months out from a hinged knee prosthesis. In any case, there is no indication for any further operations. We will continue to treat her conservatively with follow-up in the office. She is little disappointed that she is still having some pain in her right knee. I understand that. She can be weightbearing as tolerated. She has no restrictions. She will follow-up with Dr. Huang as previously scheduled. Nichole Cuevas was seen and examined at bedside this morning. Unfortunately she is still having a lot of pain in her right knee. She has been struggling with it for a while. She still complains of instability and pain.. Review of Systems All systems reviewed & are unremarkable except as noted in HPI & below. Physical Exam On physical examination the right knee, she is sitting at bedside with her knee flexed at 90 degrees. She can actively extend her leg. There is no joint effusion. There is no erythema or signs of infection.. Results & Data Results & Data Laboratory Results . Diagnostic Findings X-rays of the right knee show a right knee hinged prosthesis to be in anatomic alignment without any evidence of fracture, dislocation, or loosening.. PG Care Time/CCT Total # of Minutes Spent Total Time Spent with Patient: Total time spent is greater than 50% in coordination of care (as documented) at patient's floor/unit and/or counseling patient: Coding Level of Care Code 26509 Post Operative Follow-Up Diagnoses Status post revision of total replacement of right knee Z96.651
[2022-01-26] MEDS: DULoxetine HCL 60 MG CAP PO SCH (09:24)
[2022-01-26] MEDS: traMADol HCL 50 MG TABLET PO PRN ×2 (15:16→21:04)
--- NOTE | 2022-01-26 17:37 | Hospitalist Progress Note ---
Date of Service January 26, 2022 Assessment & Plan (1) MRSA (methicillin resistant staph aureus) culture positive: Plan: Patient status post removal of right chest port. Cultures from the port have grown coag negative staph, oxacillin resistant. Sensitive to vancomycin (al;though FERNANDO 2) - will switch to daptomycin. She is presently afebrile, hemodynamically stable and nontoxic in appearance. Blood cultures from today drawn and are thus far negative Continue to follow cultures - Continue daptomycin Consider ID consult: will discuss on 01/26 via tiger text. Should patient's blood cultures become positive would need serial cultures as well as echocardiogram, ortho consult for right knee will be ordered: no intervnetion recommended. will hold antibiotics due to negative blood cultures and negative procal will monitor. Last dose 01/26 D/W infectious disease via tiger text, official consult cancelled as patient will not be seen until the next week. (2) Chronic GERD: Plan: Chronic. Stable. Continue Protonix (3) Diabetes type 2, controlled: Plan: Chronic. Continue insulin, sliding scale hypoglycemia today - will switch Lantus to 10 units HS and loosen Novolog to correction factor 45 and carb ratio 15 (4) Atrial fibrillation: Plan: Rate controlled. Continue Eliquis 5 mg p.o. twice daily Continue metoprolol, diltiazem Continue to monitor Plan VTE Prophylaxis - Eliquis Diet - T2DM Disposition - continue on med/tele until IE ruled out Admission and Anticipated Discharge Date Admission Date: January 22, 2022 Subjective Patient reports no new symptoms. Review of Systems Review of Systems: All systems reviewed & are unremarkable except as noted in HPI & below Physical Exam Constitutional: WD/WN, vitals as above Respiratory: normal respiratory effort, lungs clear to auscultation Cardiovascular: RRR, no murmur, no edema Gastrointestinal (Abdomen): normal bowel sounds, soft, nontender, no hepatosplenomegaly Musculoskeletal: Knee: + effusion (right knee with associated tenderness to palpation) Psychiatric: A+Ox3, euthymic affect Results & Data Results & Data ([facility]) Vital Signs (Past 12 Hours) Vital Signs Temp Pulse Resp BP BP Pulse Ox O2 Del Method 01/26/22 15:11 36.6 C 61 20 125/77 100 01/26/22 07:40 36.3 C L 63 20 118/76 98 Room Air PG Care Time/CCT Total # of Minutes Spent Total Time Spent with Patient: Total time spent is greater than 50% in coordination of care (as documented) at patient's floor/unit and/or counseling patient: Coding Level of Care Code 71457 Subseq Hosp Care Lvl 3 Diagnoses MRSA (methicillin resistant staph aureus) culture positive Z22.322 Chronic GERD K21.9 Diabetes type 2, controlled E11.9 Atrial fibrillation I48.91 Atrial fibrillation type: unspecified Time Spent (min) 35 (1) Atrial fibrillation Atrial fibrillation type: unspecified Qualified Code(s): I48.91 - Unspecified atrial fibrillation
[2022-01-26] MEDS: DAPTOmycin 350 MG in SYRINGE 0 ML IV SCH (18:13)
[2022-01-26] MEDS: LANTUS PER UNIT CHARGE SQ SCH (21:08)
[2022-01-26] MEDS ORDERED: MELATONIN 3 MG TAB PO PRN (23:03)
[2022-01-27] MEDS: LEVOTHYROXINE SODIUM 25 MCG TABLET PO SCH (06:09)
[2022-01-27] MEDS: dilTIAZem HCL 180 MG CAPCR PO SCH (07:31)
[2022-01-27] MEDS: APIXABAN 5 MG TABLET PO SCH (07:31)
[2022-01-27] MEDS: DULoxetine HCL 60 MG CAP PO SCH (07:31)
[2022-01-27] MEDS: GABAPENTIN 300 MG CAP PO SCH (07:31)
[2022-01-27] MEDS: METOPROLOL TARTRATE 50 MG TAB PO SCH (07:31)
[2022-01-27] MEDS: DULoxetine HCL 30 MG CAP PO SCH (07:31)
[2022-01-27] MEDS: PANTOprazole 40 MG TAB PO SCH (07:31)
[2022-01-27] MEDS: clonazePAM 0.25 MG TAB PO SCH (07:58)
[2022-01-27] MEDS: INSULIN ASPART PER UNIT SC SCH ×2 (08:08→12:13)
[2022-01-27] MEDS: traMADol HCL 50 MG TABLET PO PRN (08:37)
--- NOTE | 2022-01-27 09:39 | Pharmacy Report ---
Pharmacy Glycemic Short Note 2 - Date of Service January 27, 2022 - Glycemic Short BSG Results (Last 24 hours): 01/26/22 01/26/22 01/26/22 11:46 16:20 20:49 POC Glucose 117 H 156 H 106 H 01/27/22 07:22 POC Glucose 142 H OUTPATIENT ANTIDIABETIC REGIMEN: * Basaglar 31 units SC HS * Glipizide 5 mg PO daily * Trulicity 3 mg SC weekly (Fridays) HbA1c: 5.9% (10/03/21) ASSESSMENT: 01/27/22 * BSGs well-controlled yesterday, received 17 units of insulin (5 units of basal, 12 units of prandial/correctional bolus) * Fasting BSG of 142 mg/dL this morning, will plan to increase basal insulin this evening * Continue current Novolog parameters 01/25/22 * BSGs yesterday were 101-065-11-158 mg/dL. Today's BSGs are 125-110 mg/dL. * Patient received 9 units of bolus insulin yesterday. * Previous hospitalizations included the following regimen: Lantus 10-15 units HS plus Novolog CF 50 CR 15-18 * Will resume above Novolog. Will start low dose Lantus at 5 units since patient has had some hypoglycemia. Background * CHARLEE is a 71 year old female admitted last evening (01/23/22) upon referral for IV antibiotics to treat infected chest port * PMH includes metastatic breast cancer * Pharmacy consulted for glycemic management this evening due to multiple episodes of hypoglycemia * Patient has very well-controlled T2DM with insulin, glipizide, and GLP-1 agonist * Will remove carb ratio and reduce basal insulin today in light of lows PLAN FOR INPATIENT GLYCEMIC CONTROL: * Hold outpatient oral diabetes medications * Basal insulin * Lantus 7 units SC HS * Bolus insulin * NovoLog per scale ACHS or Q6hrs while NPO * Goal Range: Low 110 mg/dL - High 140 mg/dL * Correction Factor: 50 mg/dL/unit * Carbohydrate Ratio: 18 g of CHO/unit
--- NOTE | 2022-01-27 11:34 | Discharge Summary ---
Date of Service January 27, 2022 Admission HPI Per Admitting Provider Faith Solorzano is a 71-year-old female with history of metastatic breast cancer, diabetes, hyperlipidemia, GERD presenting at the request of hematology for treatment of an infected chest port. Patient had port removed by Dr. Shah on 01/11/2022. Cultures were found to be positive for coag negative staph, resistant to oxacillin. Patient returned to the office today to have her sutures removed and was instructed to come to the ER for IV antibiotics. Patient has been having subjective fevers, chills, general malaise and feeling ill and dehydrated over the past several weeks. She does deny nausea, vomiting, diarrhea, constipation. She has not been eating well and reports little to no appetite. Otherwise, no complaints. In the ER she is afebrile, hemodynamically stable, nontoxic in appearance Principal Diagnosis Infected port Discharge Exam Constitutional WD/WN, vitals as above Respiratory normal respiratory effort, lungs clear to auscultation Cardiovascular RRR, no murmur, no edema Gastrointestinal (Abdomen) normal bowel sounds, soft, nontender, no hepatosplenomegaly Musculoskeletal Knee: + effusion (right knee with associated tenderness to palpation) Psychiatric A+Ox3, euthymic affect Discharge Data Allergies Allergy/AdvReac Type Severity Reaction Status Date / Time metformin AdvReac Unknown Insomnia Verified 01/22/22 15:27 Consultations 01/22/22 23:12 ED Decision to Admit Stat 01/25/22 08:18 Consult Orthopedic Surgery Routine Hospital Course (1) MRSA (methicillin resistant staph aureus) culture positive: Patient status post removal of right chest port. Cultures from the port have grown coag negative staph, oxacillin resistant. Sensitive to vancomycin (al;though FERNANDO 2) - will switch to daptomycin. She is presently afebrile, hemodynamically stable and nontoxic in appearance. Blood cultures from today drawn and are thus far negative Patient was treated with IV daptomycin as there was concern for bacteremia. However, blood cultures were negative. Clinically patient did not appear septic and blood work inflammatory markers were negative. Patient also was afebrile. D/W ID at [facility] though no official consult completed due to no weekend coverage. Agreed to stop IV antibiotics: completed about 4 days of daptomycin. will discharge patient and monitor for any symptoms. Patient will resume outpatient doxycylcine, patient will followup with Dr. Huang and make the determination to discontinue the doxycycline. ek. (2) Chronic GERD: Chronic. Stable. Continue Protonix (3) Diabetes type 2, controlled: Chronic. resume home meds (4) Atrial fibrillation: Rate controlled. Continue Eliquis 5 mg p.o. twice daily Continue metoprolol, diltiazem Continue to monitor Plan VTE Prophylaxis - Eliquis Diet - T2DM Total Time Total Time Spent Total Time Spent (In Minutes): 45 Discharge Plan Discharge Items Patient Disposition: Home - Home Health Services Reason For Visit: INFECTED PORT Discharge Diagnosis: Infected port Activity: Resume your previous activity Non-emergency contact: Primary Care Provider Call non-emergency contact if: you have any medication questions Follow-up/Referrals: Quinn Lovett MD [Primary Care Provider] - Diet: Carb Consistent or DM2 Addtl Attending Provider Instructions: You have been hospitalized for an acute medical problem. During your stay at [facility], we have made an effort to correct the problem that brought you to the hospital while keeping you as comfortable as possible. Medications were used to bring your condition under control and your discharge instructions will include directions for any medications you should take after leaving the hospital. Please make sure you see your Primary Care Provider as part of your follow up plan. Pending Studies at Discharge: No Stand-Alone Forms: My [facility], Smoking Cessation Medications and DC Order Prescriptions: Continued multivitamin tablet 1 tab PO QAM (DME) BD Luer-Veronica Syringe 3 mL 25 gauge x 1" syringe See Rx Instructions .Route Qty: 100 1RF Rx Instructions: Use once monthly with vitamin B12 injections. atorvastatin 40 mg tablet 40 mg PO HS Qty: 90 3RF cyanocobalamin (vitamin B-12) 1,000 mcg/mL kit 1,000 mcg IM MONTHLY Qty: 1 3RF (DME) OneTouch Ultra Test Strip See Rx Instructions .Route Qty: 100 5RF Rx Instructions: Test BS 3x daily duloxetine [Cymbalta] 30 mg capsule,delayed release(DR/EC) 30 mg PO QAM Qty: 60 3RF Rx Instructions: Take together with 60 mg capsule for total dose of 90 mg daily. (DME) lancets [OneTouch Delica Plus Lancet] 33 gauge misc See Rx Instructions .Route Qty: 300 3RF Rx Instructions: use to check bsg 3 times daily (DME) lancing device with lancets [[employer] HealthTouch Delica Plus Lanc Dev] Kit See Rx Instructions .Route Qty: 1 0RF Rx Instructions: use to check bsg 3 times daily glipizide 5 mg tablet 5 mg PO QAM Qty: 90 3RF acetaminophen [Tylenol Extra Strength] 500 mg tablet 1,000 mg PO TID PRN (Reason: Pain) Qty: 90 3RF Trulicity 3 mg/0.5 mL pen injector 3 mg subcut WK Qty: 2 5RF Rx Instructions: 3 mg subcut; takes friday. gabapentin 300 mg capsule 300 mg PO BID Qty: 60 5RF insulin glargine [Basaglar KwikPen U-100 Insulin] 100 unit/mL (3 mL) insulin pen 31 unit subcut QPM Qty: 15 3RF diltiazem HCl 360 mg capsule,extended release 24 hr 360 mg PO QAM Qty: 30 5RF metoprolol tartrate 50 mg tablet 50 mg PO BID Qty: 180 3RF tramadol 50 mg tablet 50 mg PO Q6H PRN (Reason: pain) Qty: 60 0RF levothyroxine 25 mcg tablet 37.5 mcg PO QAM Qty: 135 3RF clonazepam 0.5 mg tablet 0.25 mg PO BID Qty: 30 0RF Rx Instructions: Ongoing therapy: Quinn Lovett MD GISELLE# [id number] I [id number] Eliquis 5 mg tablet 5 mg PO BID Qty: 60 5RF (DME) pen needle, diabetic [Easy Comfort Pen Lyle] 32 gauge x 5/32" needle See Rx Instructions .Route Qty: 100 3RF Rx Instructions: As directed cholecalciferol (vitamin D3) [Vitamin D3] 25 mcg (1,000 unit) Capsule 1,000 unit PO QAM calcium 600 mg Capsule 600 mg PO QAM duloxetine [Cymbalta] 60 mg capsule,delayed release(DR/EC) 60 mg PO QAM Rx Instructions: Take together with 30 mg capsule for total dose of 90 mg daily. Ibrance 125 mg Tablet 125 mg PO UD Label Comments: I GO OFF OF IT ON CERTAIN DAYS pantoprazole [Protonix] 40 mg tablet,delayed release (DR/EC) 40 mg PO QAM ondansetron HCl 4 mg Tablet 4 mg PO Q8H PRN (Reason: Nausea) fulvestrant [Faslodex] 250 mg/5 mL Syringe 500 mg IM Q28D Label Comments: meclizine 25 mg tablet 25 mg PO UD PRN (Reason: dizziness) doxycycline hyclate 100 mg capsule 100 mg PO BID@1000,2200 Ibrance 125 mg tablet 125 mg PO DIRECTED Rx Instructions: tomarrow is last dose to take , then stop for 7 days thiamine HCl (vitamin B1) [Vitamin B-1] 100 mg Tablet 100 mg PO QAM Qty: 30 0RF diclofenac sodium [Voltaren Arthritis Pain] 1 % gel 2 g topical UD PRN (Reason: Pain) Rx Instructions: apply to single elbow, wrist or hand; for hand includes palm/fingers/back of hand Discharge Orders: Discharge Order (Routine); Ordered 01/27/22 Ordered By: Ulysses Cox Admission Data Admit Date/Time: 01/22/22 23:29 Attending Provider: Ulysses Cox Admit Provider: Yolette Huang Primary Care Provider: Quinn Lovett Other Providers: Yolette Huang ; [facility] ; Nathan Huang Coding Level of Care Code D/C DAY MANAGEMENT >30 MINS Diagnoses MRSA (methicillin resistant staph aureus) culture positive Z22.322 Chronic GERD K21.9 Diabetes type 2, controlled E11.9 Atrial fibrillation I48.91 Atrial fibrillation type: unspecified
[2022-01-27] MEDS ORDERED: LANTUS PER UNIT CHARGE SQ SCH (21:00)
== END 2022-01-27 12:56 | disposition home or self-care (01) | DRG 315 ==
LOC: ED 18:47 → 2W 23:29 → SUATTDRO 23:29 → INTOOBSV 23:29 → 2W 01-23 01:20

== ENCOUNTER 2022-07-01 11:55 | Inpatient (IN) ==
[2022-07-01] MEDS ORDERED: SODIUM CHLORIDE 0.9% 500 ML IV ONE (12:31)
[2022-07-01] MEDS ORDERED: ACETAMINOPHEN 1,000 MG/100 ML VIAL IV STA (12:32)
--- NOTE | 2022-07-01 12:55 | XRay Report ---
XR chest 1V portable CLINICAL HISTORY: cough TECHNIQUE: Single frontal radiograph of the chest was obtained. Comparison: Comparison is made to chest radiograph 05/07/2022 FINDINGS: Dual lead pacemaker is seen. Left shoulder arthroplasty noted. Cardiomegaly is noted. The lungs are c lear. No evidence of pleural effusion or pneumothorax. IMPRESSION: No acute abnormalities and in particular no evidence of pneumonia. ACT 112: Negative or not required by law. Electronically signed by: Emre Riojas M.D. 07/01/2022 12:54 PM
[2022-07-01 13:33] LABS: Basophils # (auto) 0.01 K/uL (0-0.2); Basophils % (auto) 0.2 %; Eosinophils # (auto) 0.04 K/uL (0-0.50); Eosinophils % (auto) 0.8 %; Hematocrit (blood only) 31.1 % (37.0-47.0); Hemoglobin 10.2 g/dl (12.0-16.0); Immature Granulocytes # (auto) 0.01 K/uL (0.01-0.20); Immature Granulocytes % (auto) 0.2 %; Lymphocytes # (auto) 0.89 K/uL (1.2-3.4); Lymphocytes % (auto) 16.7 %; Mean Corpuscular Hemoglobin 35.8 pg (25.0-34.0); Mean Corpuscular Hgb Conc 32.8 g/dL (32.0-36.0); Mean Corpuscular Volume 109.1 fL (80.0-100.0); Mean Platelet Volume 11.9 fL (9.4-12.4); Monocytes # (auto) 0.39 K/uL (0.11-0.59); Monocytes % (auto) 7.3 %; Neutrophils # (auto) 3.98 K/uL (1.40-6.50); Neutrophils % (auto) 74.8 %; Nucleated RBC # (auto) 0.02 K/uL (0-0.12); Nucleated RBC % (auto) 0.4 %; Platelet Count 172 K/uL (130-400); RDW Coefficient of Variation 17.2 % (11.5-14.5); RDW Standard Deviation 69.8 fL (36.4-46.3); Red Blood Count 2.85 M/uL (4.20-5.40); White Blood Count 5.32 K/ul (4.8-10.8)
[2022-07-01 13:51] LABS: Albumin Globulin Ratio 1.3 (0.9-2); Albumin Level 3.8 gm/dl (3.4-5.0); BUN Creatinine Ratio 29.8 (10-20); Bilirubin,Total 0.6 mg/dl (0.2-1.0); Calcium 8.6 mg/dl (8.5-10.1); Creatinine Clr Calc Pharmacy 79.8 ml/min; Est GFR (African American) 105.8 ml/min; Est GFR (Non-African American) 91.3 ml/min; Globulin 2.9 gm/dl (2.5-4.0); Magnesium 1.8 mg/dl (1.7-2.4); Potassium 4.5 mmol/L (3.5-5.1); Total Protein 6.7 gm/dl (6.0-8.3)
--- NOTE | 2022-07-01 14:08 | Emergency Department Note ---
Impression & Plan Pneumonia, Hypoxia, Dysuria, Vulvovaginal candidiasis ED Provider Note NAME: MUNIRA EDWARDS AGE: 72 SEX: F ARRIVES VIA: Walk-In INFORMANT: Patient ED PROVIDER(S): James Lu MD CHIEF COMPLAINT: SOB, cough, Urinary symptoms. PLAN: Disposition: Admit MEDICAL DECISION MAKING: The patient is a pleasant 72-year-old woman with a past medical history of constipation, atrial flutter on Eliquis, GERD, metastatic breast cancer, type 2 diabetes who presents to the emergency department via walk-in for evaluation of lower abdominal pain and burning with urination that has been persistent for the past several weeks in the setting of her report of being treated outpatient for urinary tract infection with antibiotics and had an outpatient urinalysis performed yesterday that she was told is growing E. coli today. The patient also adds that she has developed upper respiratory congestion over the past week with associated diarrhea. She reports increased shortness of breath with minimal exertion with productive sputum. She has not tested for COVID-19 or the flu. On arrival the patient is no acute distress, afebrile with stable vital signs. She appears clinically dry. Lungs with scant intermittent wheezes bilateral lung colin without significant increased work of breathing. Abdomen is benign. Patient's area was examined with female RN prior to straight catheter UA obtained. Patient's vulvovaginal region exhibits beefy red well demarcated area suggestive of yeast infection which would contribute to the patient's complaint of dysuria and burning. EKG without overt acute ischemia. Chest x-ray with patchy airspace opacities of the lower lung colin better characterized on CT of the abdomen pelvis. WBC and platelets within normal limits. H/H similar to prior values. Chemistry without metabolic acidosis. BUN/creatinine> 20 consistent with patient's clinically dry appearance. Electrolytes LFTs unremarkable. CT of the abdomen pelvis demonstrates hyperemia and bladder wall thickening which may reflect the patient's prior urinary infections as her urine analysis today is not entirely convincing as epithelial cells are present with no bacteria or nitrites but with WBCs. Findings were reviewed with the patient at the bedside. The patient does report that her cough and shortness of breath has progressively been worsening. During our conversation her O2 saturation would vary between 88% - 92% with a good waveform and O2 saturation did declined to 86% on room air and so was placed on nasal cannula. Given her worsening respira tory symptoms and low O2 saturation she did agree that she felt she would benefit from admission for further management. Blood cultures, procalcitonin and lactic acid ordered. Ceftriaxone ordered to initiate treatment. Suspect the patient's symptoms may predominantly be related to vulvovaginal candidiasis and so treatment was initiated with topical miconazole cream and suppository. Case was d/w Dr. Person [facility] hospitalist who will evaluate the patient for admission. Triage Nursing notes reviewed and agree them. Prior/outside medical records reviewed Vital Signs: reviewed Differential diagnosis: Renal colic, UTI, appendicitis, diverticulitis, mesenteric ischemia, aortic pathology, infections, inflammatory bowel disease, PUD, biliary pathology, as well as other pathologies. ER treatment provided: See below. Diagnostics interpreted by me: ECG: Sinus rhythm with frequent V-paced complexes, 64 bpm, nonspecific ST abnormality, no overt ST elevation or depression, QTc 398, QRS 74 Cardiac Monitoring: An order for continuous cardiac monitoring was placed and demonstrated Sinus rhythm with frequent V-paced complexes, 64 bpm. Laboratory studies: See below Imaging studies: See below Consultation(s): Case was d/w Dr. Person [facility] hospitalist who will evaluate the patient for admission. HPI: The patient is a pleasant 72-year-old woman with a past medical history of constipation, atrial flutter on Eliquis, GERD, metastatic breast cancer, type 2 diabetes who presents to the emergency department via walk-in for evaluation of lower abdominal pain and burning with urination that has been persistent for the past several weeks in the setting of her report of being treated outpatient for urinary tract infection with antibiotics and had an outpatient urinalysis performed yesterday that she was told is growing E. coli today. The patient also adds that she has developed upper respiratory congestion over the past week with associated diarrhea. She reports increased shortness of breath with minimal exertion with productive sputum. She has not tested for COVID-19 or the flu. ROS: See above HPI for pertinent positives & negatives. A total of 10 systems reviewed and were otherwise negative. VITALS:See Below PHYSICAL EXAMINATION: GENERAL: Awake, alert, fatigued-appearing, in no distress HENT: Normocephalic, atraumatic. Oropharynx with dry mucous membranes and otherwise unremarkable. EYES: Normal conjunctiva. Sclera non-icteric. NECK: Supple. No nuchal rigidity. FROM. No JVD. RESPIRATORY: Scant intermittent wheezes bilateral lung colin without significant increased work of breathing. CARDIAC: Regular rate, normal rhythm. Extremities warm and well perfused. Pulses equal. ABDOMEN: Soft, non-distended. No tenderness to palpation. No rebound or guarding. No masses. : Vulvovaginal region exhibits beefy red well demarcated area suggestive of yeast infection which would contribute to the patient's complaint of dysuria and burning. MUSCULOSKELETAL: Chest examination reveals no tenderness. The back is symm etrical on inspection without obvious abnormality. There is no CVA tenderness to palpation. No joint edema. LOWER EXTREMITIES: Calves are equal size bilaterally and non-tender. No edema. No discoloration. NEURO: Normal sensorium. No sensory or motor deficits noted. SKIN: No rash or jaundice noted. James Lu MD Past Med/Surg History Medical History Anemia h/o blood transfusions Anxiety Aortic stenosis Mild aortic stenosis (MERLENE 1.6cm2; MG 7.8mmHg) per 12/2019 echo Atrial fibrillation Burning with urination Cervical spine disease Full ROM per pt Chronic pain Degenerative disc disease Depression Diabetes mellitus, type 2 IDDM Gastroesophageal reflux disease controlled, stable per pt Hx of cardiac pacemaker Implanted 2019 (tachy-monica syndrome), Medtronic device Follows with Dr. Ramires Hypercholesterolemia Hypothyroidism Infiltrating ductal carcinoma of left breast Initial Dx 2015- s/p lumpectomy, XRT and anastrozole Metastatic breast cancer 03/2020, follows with [facility] Liver mass Pt denies but 05/17/20 PET scan shows 2.5 right hepatic lobe mass consistent with known hepatic metastasis Metastatic lung carcinoma Neuropathy Obstructive sleep apnea "Resolved" s/p gastric bypass (? retested) Pacemaker 2019, follows with Dr Ramires. checks Q6 months. Painful urination Peripheral neuropathy Hands (B/L CTS) Urinary frequency Surgical History H/O bilateral hip replacements History of carpal tunnel surgery of left wrist 06/2021 History of carpal tunnel surgery of right wrist History of section x1 History of colonoscopy History of evacuation of hematoma Hematoma right breast and right chest 08/31/13 Dr. Shah History of removal of Port-a-Cath (01/11/22) Infected port right anterior chest removed Dr. hSah History of surgery Right knee TKA revision with spacer (07/11/2021): SAB at L3-4 (x2 attempts) + PNB at [facility]. No issues noted per post-op anesthesia progress note. History of total knee arthroplasty R/L Port-A-Cath in place Insertion of Mediport Right Subclavian Dr. Shah 06/13/2020 CURRENT RIGHT SIDE S/P cardiac pacemaker procedure 2019 Status post appendectomy Status post arthroscopy of left shoulder Status post gastric bypass for obesity Status post laparoscopic cholecystectomy Status post lumbar spine surgery for decompression of spinal cord Status post panniculectomy Status post partial mastectomy of left breast Status post repair of ventral hernia Status post total abdominal hysterectomy and bilateral salpingo-oophorectomy Family History Unknown Breast cancer Emphysema lung Mother Diabetes Heart disease Father Heart disease Other No family history of adverse response to anesthesia Denies family history of Ovarian cancer Prostate cancer Coronary heart disease Colorectal cancer Social History Smoking Status: Former smoker Tobacco Type: Cigarettes packs per day: 2; Second Hand Exposure: No; Hx Alcohol Use: No Hx Substance Use: No Preferred Language: [place]an Communication Ability: Effective Visual Impairment: No Limitations Hearing Ability: Normal Wire Technician Required: No Beliefs That Will Affect Care: None marital status: Current Living Situation: Spouse current occupational status: retired Feels Safe at Home: Yes Childhood Exposure to Second-Hand Smoke: Yes caffeine: Yes Dental Care, Regularly: No Physical Activity Frequency: 1-2 Times per Week Seatbelt Use: always Sunscreen Use: No Assistive Devices: Walker Allergies Allergies Allergy/AdvReac Type Severity Reaction Status Date / Time metformin AdvReac Intermediate Insomnia Verified 05/17/22 13:57 Home Meds Home Medications Medication Instructions Recorded Confirmed multivitamin 1 tab PO QAM 02/04/18 05/17/22 cholecalciferol (vitamin D3) 25 1,000 unit PO QAM 07/29/19 05/17/22 mcg (1,000 unit) capsule (Vitamin D3) ondansetron HCl 4 mg tablet 4 mg PO Q8H PRN Nausea 07/11/21 05/17/22 fulvestrant 250 mg/5 mL 500 mg IM Q28D 07/27/21 05/17/22 intramuscular syringe (Faslodex) diclofenac sodium 1 % topical gel 2 g topical UD PRN Pain 08/13/21 05/17/22 (Voltaren Arthritis Pain) meclizine 25 mg tablet 25 mg PO UD PRN dizziness 10/01/21 05/17/22 capecitabine 500 mg tablet 1,000 mg PO DAILY 03/28/22 05/17/22 calcium carbonate 600 mg calcium 600 mg PO QAM 05/07/22 05/17/22 (1,500 mg) tablet (Calcium) Previous Rx's Medication Instructions Recorded thiamine HCl (vitamin B1) 100 mg 100 mg PO QAM #30 tabs 01/02/21 tablet (Vitamin B-1) syringe with needle 3 mL 25 gauge #100 ea 02/22/21 x 1" (BD Luer-Veronica Syringe) cyanocobalamin (vitamin B-12) 1,000 mcg IM MONTHLY #1 ea 05/23/21 1,000 mcg/mL injection kit blood sugar diagnostic (OneTouch #100 ea 06/20/21 Ultra Test strips) DipityTouch Delica Plus Lancet 33 #300 ea 08/15/21 gauge (lancets) OneTouch Delica Plus Lancing #1 ea 08/15/21 Device kit (lancing device with lancets) metoprolol tartrate 50 mg tablet 50 mg PO BID #180 tabs 12/27/21 levothyroxine 25 mcg tablet 37.5 mcg PO QAM #135 tabs 01/14/22 apixaban 5 mg tablet (Eliquis) 5 mg PO BID #60 tabs 02/06/22 duloxetine 30 mg capsule,delayed 30 mg PO QAM #90 caps 02/06/22 release (Cymbalta) diltiazem HCl 360 mg capsule,24 360 mg PO QAM #90 caps 02/08/22 hr,extended release pen needle, diabetic 32 gauge x #100 ea 02/12/22 5/32" (Easy Comfort Pen [place]) doxycycline hyclate 100 mg tablet 100 mg PO BID #60 tabs 02/18/22 atorvastatin 40 mg tablet 40 mg PO HS #90 tabs 02/19/22 duloxetine 60 mg capsule,delayed 60 mg PO QAM #90 caps 03/04/22 release (Cymbalta) clonazepam 0.5 mg tablet 0.25 mg PO BID #30 tabs 05/22/22 gabapentin 300 mg capsule 300 mg PO BID #60 caps 05/22/22 dulaglutide 1.5 mg/0.5 mL 1.5 mg (0.5 mL) subcut .COMPLEX #4 06/04/22 subcutaneous pen injector syringes (Trulicity) fluconazole 150 mg tablet 150 mg PO Q3D 2 doses #2 tabs 06/07/22 ciprofloxacin HCl 250 mg tablet 250 mg PO BID #10 tabs 06/11/22 (Cipro) pantoprazole 40 mg tablet,delayed 40 mg PO QAM #90 tabs 06/18/22 release (Protonix) insulin glargine 100 unit/mL (3 31 unit (0.31 mL) subcut QPM #15 mL 06/20/22 mL) subcutaneous pen (Basaglar KwikPen U-100 Insulin) oxycodone 5 mg tablet 5 mg PO BID PRN pain 30 days #60 06/27/22 tabs nitrofurantoin 100 mg PO BID 7 days #14 caps 06/28/22 monohydrate/macrocrystals 100 mg capsule (Macrobid) Results & Data (ED) Vital Signs Vital Signs - 24 hr 07/01/22 11:58 07/01/22 12:31 07/01/22 13:00 Temperature 36.2 C L Temperature Source Temporal Artery Scan Pulse Rate 74 Pulse Rate [Right Finger] 61 Pulse Rate from SpO2 Sensor Pulse Rhythm [Right Finger] Regular Pulse Strength [Right Finger] Normal Respiratory Rate 18 20 Respiratory Effort / Characteristics Non-Labored Respiratory Depth Normal Respiratory Pattern Regular Blood Pressure 122/73 Blood Pressure [Right Radial Artery] 135/75 Blood Pressure Mean 89 Blood Pressure Mean [Right Radial Artery] 95 Blood Pressure Position Sitting Blood Pressure Position [Right Radial Artery] Lying Pulse Oximetry 94 92 Oxygen Delivery Method Room Air Room Air Room Air Oxygen Flow Rate Sepsis Recent Fever Within 48 Hours No Sepsis New/Unexplained Change in Mental Status N/A Sepsis Action Taken by Nursing No Action Required 07/01/22 15:15 07/01/22 15:38 07/01/22 15:40 Temperature Temperature Source Pulse Rate Pulse Rate [Right Finger] Pulse Rate from SpO2 Sensor 60 62 Pulse Rhythm [Right Finger] Pulse Strength [Right Finger] Respiratory Rate 20 Respiratory Effort / Characteristics Non-Labored Spontaneous Respiratory Depth Normal Respiratory Pattern Blood Pressure Blood Pressure [Right Radial Artery] Blood Pressure Mean Blood Pressure Mean [Right Radial Artery] Blood Pressure Position Blood Pressure Position [Right Radial Artery] Pulse Oximetry 86 L 93 96 Oxygen Delivery Method Room Air Nasal Cannula Nasal Cannula Oxygen Flow Rate 3 3 Sepsis Recent Fever Within 48 Hours Sepsis New/Unexplained Change in Mental Status Sepsis Action Taken by Nursing Laboratory Data Attestation: I reviewed the patient's lab results. 07/01/22 13:00 07/01/22 13:00 Lab Results 07/01/22 07/01/22 07/01/22 Range/Units 12:51 13:00 13:00 WBC 5.32 (4.8-10.8) K/ul RBC 2.85 L (4.20-5.40) M/uL Hgb 10.2 L (12.0-16.0) g/dl Hct 31.1 L (37.0-47.0) % MCV 109.1 H (80.0-100.0) fL MCH 35.8 H (25.0-34.0) pg MCHC 32.8 (32.0-36.0) g/dL RDW Std Deviation 69.8 H (36.4-46.3) fL RDW Coeff of Thompson 17.2 H (11.5-14.5) % Plt Count 172 (130-400) K/uL MPV 11.9 (9.4-12.4) fL Immature Gran % (Auto) 0.2 % Neut % (Auto) 74.8 % Lymph % (Auto) 16.7 % [place] % (Auto) 7.3 % Eos % (Auto) 0.8 % Baso % (Auto) 0.2 % Neut # (Auto) 3.98 (1.40-6.50) K/uL Lymph # (Auto) 0.89 L (1.2-3.4) K/uL [place] # (Auto) 0.39 (0.11-0.59) K/uL Eos # (Auto) 0.04 (0-0.50) K/uL Baso # (Auto) 0.01 (0-0.2) K/uL Immature Gran # (Auto) 0.01 (0.01-0.20) K/uL Absolute Nucleated RBC 0.02 (0-0.12) K/uL Nucleated RBC % (auto) 0.4 % Sodium 135 L (136-145) mmol/L Potassium 4.5 (3.5-5.1) mmol/L Chloride 102 (98-107) mmol/L Carbon Dioxide 28 (21-32) mmol/L Anion Gap 5 (3-11) BUN 17 (6-23) mg/dl Creatinine 0.57 L (0.6-1.2) mg/dl Est Cr Clr Drug Dosing 79.8 ml/min Est GFR ( Amer) 105.8 ml/min Est GFR (Non-Af Amer) 91.3 ml/min BUN/Creatinine Ratio 29.8 H (10-20) Glucose 198 H (70-99(Fasting)) mg/dl Calcium 8.6 (8.5-10.1) mg/dl Magnesium 1.8 (1.7-2.4) mg/dl Total Bilirubin 0.6 (0.2-1.0) mg/dl AST 26 (13-39) U/L ALT 21 (7-52) U/L Alkaline Phosphatase 73 (34-104) U/L Total Protein 6.7 (6.0-8.3) gm/dl Albumin 3.8 (3.4-5.0) gm/dl Globulin 2.9 (2.5-4.0) gm/dl Albumin/Globulin Ratio 1.3 (0.9-2) Urine Color Urine Appearance (Clear) Urine pH (4.5-7.5) Ur Specific [place] (1.000-1.030) Urine Protein (Negative) Urine Glucose (UA) (Negative) Urine Ketones (Negative) Urine Blood (Negative) Urine Nitrite (Negative) Urine Bilirubin (Negative) Urine Urobilinogen (Negative) Ur Leukocyte Esterase (Negative) Urine WBC (Auto) (0-5) /hpf Urine RBC (Auto) (0-4) /hpf U Hyaline Cast (Auto) (0-5) /lpf U Epithel Cells (Auto) (0-5) /lpf Urine Bacteria (Auto) (Negative) SARS-CoV-2 (PCR) NEGATIVE (Negative) Influenza Type A (PCR) Negative (Neg) Influenza Type B (PCR) Negative (Neg) RSV (RT-PCR) Negative (Neg) 07/01/22 Range/Units 13:20 WBC (4.8-10.8) K/ul RBC (4.20-5.40) M/uL Hgb (12.0-16.0) g/dl Hct (37.0-47.0) % MCV (80.0-100.0) fL MCH (25.0-34.0) pg MCHC (32.0-36.0) g/dL RDW Std Deviation (36.4-46.3) fL RDW Coeff of [place] (11.5-14.5) % Plt Count (130-400) K/uL MPV (9.4-12.4) fL Immature Gran % (Auto) % Neut % (Auto) % Lymph % (Auto) % [place] % (Auto) % Eos % (Auto) % Baso % (Auto) % Neut # (Auto) (1.40-6.50) K/uL Lymph # (Auto) (1.2-3.4) K/uL [place] # (Auto) (0.11-0.59) K/uL Eos # (Auto) (0-0.50) K/uL Baso # (Auto) (0-0.2) K/uL Immature Gran # (Auto) (0.01-0.20) K/uL Absolute Nucleated RBC (0-0.12) K/uL Nucleated RBC % (auto) % Sodium (136-145) mmol/L Potassium (3.5-5.1) mmol/L Chloride (98-107) mmol/L Carbon Dioxide (21-32) mmol/L Anion Gap (3-11) BUN (6-23) mg/dl Creatinine (0.6-1.2) mg/dl Est Cr Clr Drug Dosing ml/min Est GFR ( Amer) ml/min Est GFR (Non-Af Amer) ml/min BUN/Creatinine Ratio (10-20) Glucose (70-99(Fasting)) mg/dl Calcium (8.5-10.1) mg/dl Magnesium (1.7-2.4) mg/dl Total Bilirubin (0.2-1.0) mg/dl AST (13-39) U/L ALT (7-52) U/L Alkaline Phosphatase (34-104) U/L Total Protein (6.0-8.3) gm/dl Albumin (3.4-5.0) gm/dl Globulin (2.5-4.0) gm/dl Albumin/Globulin Ratio (0.9-2) Urine Color Dark Yellow Urine Appearance Clear (Clear) Urine pH 7.0 (4.5-7.5) Ur Specific [place] 1.018 (1.000-1.030) Urine Protein 1+ H (Negative) Urine Glucose (UA) 1+ H (Negative) Urine Ketones Negative (Negative) Urine Blood Trace H (Negative) Urine Nitrite Negative (Negative) Urine Bilirubin Negative (Negative) Urine Urobilinogen Negative (Negative) Ur Leukocyte Esterase 2+ H (Negative) Urine WBC (Auto) >30 H (0-5) /hpf Urine RBC (Auto) 0-4 (0-4) /hpf U Hyaline Cast (Auto) 1-5 (0-5) /lpf U Epithel Cells (Auto) 10-20 H (0-5) /lpf Urine Bacteria (Auto) Negative (Negative) SARS-CoV-2 (PCR) (Negative) Influenza Type A (PCR) (Neg) Influenza Type B (PCR) (Neg) RSV (RT-PCR) (Neg) Administered Medications Discontinued Medications Sodium Chloride (Nss) 500 mls @ 999 mls/hr IV .Q31M ONE Stop: 07/01/22 13:01 Last Infusion: 07/01/22 13:59 Dose: 0 mls/hr Documented By: Admin: 07/01/22 13:24 Dose: 999 mls/hr Documented By: IVETH Acetaminophen (Ofirmev) 1,000 mg in 100 mls @ 400 mls/hr IV NOW STA Stop: 07/01/22 12:46 Last Infusion: 07/01/22 13:59 Dose: 0 mls/hr Documented By: Admin: 07/01/22 13:23 Dose: 400 mls/hr Documented By: AP Ioversol (Optiray 350 100ml) 89 ml IV ONCE ONE Stop: 07/01/22 14:22 Last Admin: 07/01/22 14:21 Dose: 89 ml Documented By: SERGE Imaging Data Radiologist's Impression: Abdomen/Pelvis CT 07/01/22 12:30 CT SCAN OF THE ABDOMEN AND PELVIS WITH IV CONTRAST CLINICAL HISTORY: Lower abdominal pain. COMPARISON STUDY: Abdominal CT dated 05/07/2022. TECHNIQUE: Following the IV administration of 91 cc of Optiray 350, CT scan of the abdomen and pelvis is performed from the lung bases to the proximal femora. Images are reviewed in the axial, sagittal, and coronal planes. IV contrast was administered without complication. A dose lowering technique was utilized adhering to the principles of ALARA. CT DOSE: 561.81 mGy.cm FINDINGS: Lung bases: The heart is mildly enlarged and without pericardial effusion. Pacemaker leads are in place. There is a tiny hiatal hernia. Patchy airspace consolidation is seen at both lung bases, greatest in the right lower lobe. Liver: The contrast-enhanced liver is normal in size, contour, and attenuation. There is minimal central intrahepatic biliary ductal dilatation. The hepatic veins and portal veins are patent. There are at least 3 hepatic metastases ident ified which measure up to 1.8 cm. These are similar to prior examinations. Gallbladder: Cholecystectomy clips are noted in the gallbladder fossa. There is residual gallbladder versus a doubt cystic duct remnant which contains a calcified gallstone. Spleen: Normal in size and attenuation. Pancreas: Unremarkable. Adrenal glands: The pancreas is moderately atrophic. 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 These are unchanged. Kidneys: The contrast enhanced kidneys are normal in size and without hydronephrosis. The kidneys enhance symmetrically. There are numerous bilateral nonobstructing renal calculi which measure up to 7 mm. A 10 mm cyst is noted in the left upper pole. Abdominal vasculature: The abdominal aorta is normal in course and caliber noting mild atherosclerotic calcification. Bowel: Postsurgical changes noted in the stomach. Small bowel anastomosis is seen in the pelvis. There is no bowel obstruction. The appendix is not identified and reported surgically absent. Peritoneum: There is no intraperitoneal free air or abdominal ascites. A midline surgical scar is noted. Lymphadenopathy: None. Pelvic viscera: Evaluation of the pelvis is significantly degraded by streak artifact from bilateral hip arthroplasties. The bladder wall appears mildly thickened and hyperemic. The uterus is surgically absent. No adnexal lesion is seen. Skeletal structures: The skeletal structures are osteopenic. Spondylotic and postoperative change is noted throughout the lumbar spine. No lytic or blastic lesions are seen. Bilateral hip arthroplasties are in place. There are chronic/healed bilateral rib fractures. A sacral insufficiency fracture is again noted. Soft tissues: A seroma in the left supragluteal soft tissues is unchanged. This measures up to 1.3 cm diameter. IMPRESSION: 1. Patchy airspace consolidation is seen at both lung bases, right greater than left. The appearance is for pneumonia/aspiration pneumonitis. Clinical correlation will be required and radiographic follow-up to resolution is recommended. 2. The bladder wall appears mildly thickened and hyperemic. Correlate with clinical findings and urinalysis. 3. Hepatic metastatic disease is unchanged. 4. Bilateral nephrolithiasis. 5. There are gallstones within a cystic duct or gallbladder remnant. 6. Additional findings as above. ACT 112: Negative or not required by law. Electronically signed by: Noe Carrillo M.D. 07/01/2022 2:37 PM Chest X-Ray 07/01/22 12:30 XR chest 1V portable CLINICAL HISTORY: cough TECHNIQUE: Single frontal radiograph of the chest was obtained. Comparison: Comparison is made to chest radiograph 05/07/2022 FINDINGS: Dual lead pacemaker is seen. Left shoulder arthroplasty noted. Cardiomegaly is noted. The lungs are clear. No evidence of pleural effusion or pneumothorax. IMPRESSION: No acute abnormalities and in particular no evidence of pneumonia. ACT 112: Negative or not required by law. Electronically signed by: Emre Riojas M.D. 07/01/2022 12:54 PM Discharge Plan Visit Data Chief Complaint: Urinary Symptoms Stated Complaint: SEVERE UTI ED Provider: James Lu Discharge Problem: Pneumonia, Hypoxia, Dysuria, Vulvovaginal candidiasis Patient Disposition: Being Evaluated by Hospitalist Forms Stand Alone Forms: [facility] [employer] Prescriptions Prescriptions: No Action multivitamin tablet 1 tab PO QAM (DME) BD Luer-Veronica Syringe 3 mL 25 gauge x 1" syringe See Rx Instructions .Route Qty: 100 1RF Rx Instructions: Use once monthly with vitamin B12 injections. cyanocobalamin (vitamin B-12) 1,000 mcg/mL kit 1,000 mcg IM MONTHLY Qty: 1 3RF Rx Instructions: USUALLY AROUND THE 12TH. (DME) OneTouch Ultra Test Strip See Rx Instructions .Route Qty: 100 5RF Rx Instructions: Test BS 3x daily (DME) lancets [OneTouch Delica Plus Lancet] 33 gauge misc See Rx Instructions .Route Qty: 300 3RF Rx Instructions: use to check bsg 3 times daily (DME) lancing device with lancets [Off-[employer] Solutionsuch Delica Plus Lanc Dev] Kit See Rx Instructions .Route Qty: 1 0RF Rx Instructions: use to check bsg 3 times daily metoprolol tartrate 50 mg tablet 50 mg PO BID Qty: 180 3RF levothyroxine 25 mcg tablet 37.5 mcg PO QAM Qty: 135 3RF diltiazem HCl 360 mg capsule,extended release 24 hr 360 mg PO QAM Qty: 90 3RF (DME) pen needle, diabetic [Easy Comfort Pen [place]] 32 gauge x 5/32" needle See Rx Instructions .Route Qty: 100 3RF Rx Instructions: As directed doxycycline hyclate 100 mg tablet 100 mg PO BID Qty: 60 3RF atorvastatin 40 mg tablet 40 mg PO HS Qty: 90 3RF duloxetine [Cymbalta] 60 mg capsule,delayed release(DR/EC) 60 mg PO QAM Qty: 90 3RF Rx Instructions: Take together with 30 mg capsule for total dose of 90 mg daily. clonazepam 0.5 mg tablet 0.25 mg PO BID Qty: 30 0RF Rx Instructions: Ongoing therapy: Quinn Lovett MD GISELLE# [id number] [facility] [id number] gabapentin 300 mg capsule 300 mg PO BID Qty: 60 5RF Trulicity 1.5 mg/0.5 mL pen injector 1.5 mg subcut .COMPLEX Qty: 4 5RF Rx Instructions: 1.5 mg subcutaneously once weekly; fluconazole 150 mg tablet 150 mg PO Q3D Qty: 2 0RF ciprofloxacin HCl [Cipro] 250 mg tablet 250 mg PO BID Qty: 10 0RF pantoprazole [Protonix] 40 mg tablet,delayed release (DR/EC) 40 mg PO QAM Qty: 90 3RF insulin glargine [Basaglar KwikPen U-100 Insulin] 100 unit/mL (3 mL) insulin pen 31 unit subcut QPM Qty: 15 3RF oxycodone 5 mg tablet 5 mg PO BID PRN (Reason: pain) 30 Days Qty: 60 0RF nitrofurantoin monohyd/m-cryst [Macrobid] 100 mg capsule 100 mg PO BID 7 Days Qty: 14 0RF Rx Instructions: must administer with a meal/food Eliquis 5 mg tablet 5 mg PO BID Qty: 60 5RF duloxetine [Cymbalta] 30 mg capsule,delayed release(DR/EC) 30 mg PO QAM Qty: 90 3RF Rx Instructions: Take together with 60 mg capsule for total dose of 90 mg daily. capecitabine 500 mg tablet 1,000 mg PO DAILY cholecalciferol (vitamin D3) [Vitamin D3] 25 mcg (1,000 unit) Capsule 1,000 unit PO QAM ondansetron HCl 4 mg Tablet 4 mg PO Q8H PRN (Reason: Nausea) fulvestrant [Faslodex] 250 mg/5 mL Syringe 500 mg IM Q28D Label Comments: meclizine 25 mg tablet 25 mg PO UD PRN (Reason: dizziness) thiamine HCl (vitamin B1) [Vitamin B-1] 100 mg Tablet 100 mg PO QAM Qty: 30 0RF diclofenac sodium [Voltaren Arthritis Pain] 1 % gel 2 g topical UD PRN (Reason: Pain) Rx Instructions: apply to single elbow, wrist or hand; for hand includes palm/fingers/back of hand calcium carbonate [Calcium 600] 600 mg calcium (1,500 mg) Tablet 600 mg PO QAM Referrals Referrals: Quinn Lovett MD [Primary Care Provider] -
[2022-07-01 14:13] LABS: Influenza A virus by PCR Negative (Neg); Influenza B virus by PCR Negative (Neg); RSV by PCR Negative (Neg); SARS CoV2 RNA(COVID-19) Ceph NEGATIVE (Negative)
[2022-07-01 14:17] LABS: Appearance Urine Clear (Clear); Bacteria Urine Automated Negative (Negative); Bilirubin Urine Negative (Negative); Blood Urine Trace (Negative); Color Urine Dark Yellow; Glucose Urine UA 1+ (Negative); Ketones Urine Negative (Negative); Leukocyte Esterase Urine 2+ (Negative); Nitrite Urine Negative (Negative); Protein Urine 1+ (Negative); RBC Urine Automated 0-4 /hpf (0-4); Specific Gravity Urine 1.018 (1.000-1.030); Urobilinogen Urine Negative (Negative); WBC Urine Automated >30 /hpf (0-5)
[2022-07-01] MEDS ORDERED: OPTIRAY 350 100ml IV ONE (14:21)
--- NOTE | 2022-07-01 14:39 | CT Scan Report ---
CT SCAN OF THE ABDOMEN AND PELVIS WITH IV CONTRAST CLINICAL HISTORY: Lower abdominal pain. COMPARISON STUDY: Abdominal CT dated 05/07/2022. TECHNIQUE: Following the IV administration of 91 cc of Optiray 350, CT scan of the abdomen and pelvi s is performed from the lung bases to the proximal femora. Images are reviewed in the axial, sagittal , and coronal planes. IV contrast was administered without complication. A dose lowering technique wa s utilized adhering to the principles of ALARA. CT DOSE: 561.81 mGy.cm FINDINGS: Lung bases: The heart is mildly enlarged and without pericardial effusion. Pacemaker leads are in patricia ce. There is a tiny hiatal hernia. Patchy airspace consolidation is seen at both lung bases, greatest in the right lower lobe. Liver: The contrast-enhanced liver is normal in size, contour, and attenuation. There is minimal cent ral intrahepatic biliary ductal dilatation. The hepatic veins and portal veins are patent. There are at least 3 hepatic metastases identified which measure up to 1.8 cm. These are similar to prior [facility]. Gallbladder: Cholecystectomy clips are noted in the gallbladder fossa. There is residual gallbladder versus a doubt cystic duct remnant which contains a calcified gallstone. Spleen: Normal in size and attenuation. Pancreas: Unremarkable. Adrenal glands: The pancreas is moderately atrophic. 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 These are unchanged. Kidneys: The contrast enhanced kidneys are normal in size and without hydronephrosis. The kidneys enh ance symmetrically. There are numerous bilateral nonobstructing renal calculi which measure up to 7 m m. A 10 mm cyst is noted in the left upper pole. Abdominal vasculature: The abdominal aorta is normal in course and caliber noting mild atheroscleroti c calcification. Bowel: Postsurgical changes noted in the stomach. Small bowel anastomosis is seen in the pelvis. Ther e is no bowel obstruction. The appendix is not identified and reported surgically absent. Peritoneum: There is no intraperitoneal free air or abdominal ascites. A midline surgical scar is not ed. Lymphadenopathy: None. Pelvic viscera: Evaluation of the pelvis is significantly degraded by streak artifact from bilateral hip arthroplasties. The bladder wall appears mildly thickened and hyperemic. The uterus is surgically absent. No adnexal lesion is seen. Skeletal structures: The skeletal structures are osteopenic. Spondylotic and postoperative change is noted throughout the lumbar spine. No lytic or blastic lesions are seen. Bilateral hip arthroplasties are in place. There are chronic/healed bilateral rib fractures. A sacral insufficiency fracture is a gain noted. Soft tissues: A seroma in the left supragluteal soft tissues is unchanged. This measures up to 1.3 cm diameter. IMPRESSION: 1. Patchy airspace consolidation is seen at both lung bases, right greater than left. The appearance is for pneumonia/aspiration pneumonitis. Clinical correlation will be required and radiographic follo w-up to resolution is recommended. 2. The bladder wall appears mildly thickened and hyperemic. Correlate with clinical findings and urin alysis. 3. Hepatic metastatic disease is unchanged. 4. Bilateral nephrolithiasis. 5. There are gallstones within a cystic duct or gallbladder remnant. 6. Additional findings as above. ACT 112: Negative or not required by law. Electronically signed by: Noe Carrillo M.D. 07/01/2022 2:37 PM
[2022-07-01] MEDS ORDERED: ALBUT/IPRATROP 3MG/0.5MG NEB 3 ML VIAL NEB STA (15:10)
[2022-07-01] MEDS ORDERED: MICONAZOLE NITRATE-7 (100 MG EA SUPP) BOX PV STA (15:10)
[2022-07-01] MEDS ORDERED: guaiFENesin 600 MG TABCR PO STA (15:10)
[2022-07-01] MEDS ORDERED: cefTRIAXone SODIUM 2,000 MG/70 ML BAG IV STA (15:10)
--- NOTE | 2022-07-01 15:24 | History & Physical Report ---
Date of Service July 01, 2022 Assessment & Plan (1) Hypoxia: Plan: Mild hypoxia suspect due to metapneumovirus. Low suspicion of bacterial pneumonia. Incentive parameter Flutter valve DuoNebs as needed Guaifenesin Dextromethorphan (2) Human metapneumovirus pneumonia: Plan: Supportive care as above (3) UTI (urinary tract infection): Plan: Dysuria with recent E. coli culture not improved with Macrobid Repeat urine culture and blood cultures pending Continue ceftriaxone 2 g IV daily initially prescribed a 3-day course depending on clinical improvement (4) Vulvovaginal candidiasis: Plan: Fluconazole 150 mg every 3 daily for 3 doses Monistat 1 application at night for 7 days (5) Painful urination: Plan: Unclear if due to UTI versus candidiasis. Less likely B12 injections. Pyridium as needed (6) Atrial fibrillation: Plan: Continue Eliquis 5 mg p.o. twice daily Continue diltiazem and extended release 360 mg p.o. daily (7) Chronic anemia: Plan: At baseline. Monitor with CBC in a.m. (8) Chronic GERD: Plan: Continue pantoprazole 40 mg p.o. daily (9) Diabetes type 2, controlled: Plan: Hemoglobin A1c 6.1 in January 2022. We will repeat with a.m. labs. Based on previous admissions she is required a much lower dose of insulin and will start with Lantus 5 units every morning NovoLog: --Goal BSG Range: Low 110 mg/dL, High 140 mg/dL --Correction Factor: 50 mg/dL/unit --Carbohydrate ratio = 18 g/unit --BSGs ACHS if eating, q6h if npo (10) Metastatic breast cancer: Plan: Currently on Faslodex (estrogen receptor antagonist) intramuscular injection once monthly Continue capecitabine Plan VTE prophylaxis -Eliquis Diet - T2DM Disposition - admit to med/surg Admission and Anticipated Discharge Date Admission Date: July 01, 2022 History of Present Illness Chief Complaint: Shortness of breath, dysuria Primary Care Provider: Quinn Lovett MD Faith Solorzano is a 72 year old female who presents to the ER with urinary symptoms and shortness of breath. She reports 2 days of a wet cough but is unable to cough anything up, sore throat, diarrhea, headache, nasal congestion and shortness of breath. She believes she caught something from her who is coughing for the last week. She also notes ongoing dysuria that has been present for several weeks. Most recently urine culture grew E. coli on June 26 and she was prescribed Macrobi d for this without any improvement in her symptoms. No fever, chills, flank pain. Allergies Allergy/AdvReac Type Severity Reaction Status Date / Time metformin AdvReac Intermediate Insomnia Verified 07/01/22 16:59 Home Medications Medication Instructions Recorded Confirmed Type multivitamin 1 tab PO QAM 02/04/18 07/01/22 History cholecalciferol (vitamin D3) 25 1,000 unit PO QAM 07/29/19 07/01/22 History mcg (1,000 unit) capsule (Vitamin D3) thiamine HCl (vitamin B1) 100 mg 100 mg PO QAM #30 tabs 01/02/21 07/01/22 Rx tablet (Vitamin B-1) syringe with needle 3 mL 25 gauge #100 ea 02/22/21 05/17/22 Rx x 1" (BD Luer-Veronica Syringe) cyanocobalamin (vitamin B-12) 1,000 mcg IM MONTHLY #1 ea 05/23/21 07/01/22 Rx 1,000 mcg/mL injection kit blood sugar diagnostic (OneTouch #100 ea 06/20/21 05/17/22 Rx Ultra Test strips) ondansetron HCl 4 mg tablet 4 mg PO Q8H PRN Nausea 07/11/21 07/01/22 History fulvestrant 250 mg/5 mL 500 mg IM Q28D 07/27/21 07/01/22 History intramuscular syringe (Faslodex) diclofenac sodium 1 % topical gel 2 g topical UD PRN Pain 08/13/21 07/01/22 History (Voltaren Arthritis Pain) OneTouch Delica Plus Lancet 33 #300 ea 08/15/21 05/17/22 Rx gauge (lancets) OneTouch Delica Plus Lancing #1 ea 08/15/21 05/17/22 Rx Device kit (lancing device with lancets) meclizine 25 mg tablet 25 mg PO UD PRN dizziness 10/01/21 07/01/22 History metoprolol tartrate 50 mg tablet 50 mg PO BID #180 tabs 12/27/21 07/01/22 Rx levothyroxine 25 mcg tablet 37.5 mcg PO QAM #135 tabs 01/14/22 07/01/22 Rx apixaban 5 mg tablet (Eliquis) 5 mg PO BID #60 tabs 02/06/22 07/01/22 Rx duloxetine 30 mg capsule,delayed 30 mg PO QAM #90 caps 02/06/22 07/01/22 Rx release (Cymbalta) diltiazem HCl 360 mg capsule,24 360 mg PO QAM #90 caps 02/08/22 07/01/22 Rx hr,extended release pen needle, diabetic 32 gauge x #100 ea 02/12/22 05/17/22 Rx 5/32" (Easy Comfort Pen [place]) doxycycline hyclate 100 mg tablet 100 mg PO BID #60 tabs 02/18/22 07/01/22 Rx atorvastatin 40 mg tablet 40 mg PO HS #90 tabs 02/19/22 07/01/22 Rx duloxetine 60 mg capsule,delayed 60 mg PO QAM #90 caps 03/04/22 07/01/22 Rx release (Cymbalta) capecitabine 500 mg tablet 1,000 mg PO DAILY 03/28/22 07/01/22 History calcium carbonate 600 mg calcium 600 mg PO QAM 05/07/22 07/01/22 History (1,500 mg) tablet (Calcium) clonazepam 0.5 mg tablet 0.25 mg PO BID #30 tabs 05/22/22 07/01/22 Rx gabapentin 300 mg capsule 300 mg PO BID #60 caps 05/22/22 07/01/22 Rx dulaglutide 1.5 mg/0.5 mL 1.5 mg (0.5 mL) subcut .COMPLEX #4 06/04/22 07/01/22 Rx subcutaneous [facility] fluconazole 150 mg tablet 150 mg PO Q3D 2 doses #2 tabs 06/07/22 07/01/22 Rx pantoprazole 40 mg tablet,delayed 40 mg PO QAM #90 tabs 06/18/22 07/01/22 Rx release (Protonix) insulin glargine 100 unit/mL (3 31 unit (0.31 mL) subcut QPM #15 mL 06/20/22 07/01/22 Rx mL) subcutaneous pen (Brayden Servin U-100 Insulin) oxycodone 5 mg tablet 5 mg PO BID PRN pain 30 days #60 06/27/22 07/01/22 Rx tabs capecitabine 500 mg tablet See Rx Instructions .Route 07/01/22 07/01/22 History .COMPLEX 14 day chemotherapy Past Med/Surg History Medical History Anemia h/o blood transfusions Anxiety Aortic stenosis Mild aortic stenosis (MERLENE 1.6cm2; MG 7.8mmHg) per 12/2019 echo Atrial fibrillation Burning with urination Cervical spine disease Full ROM per pt Chronic pain Degenerative disc disease Depression Diabetes mellitus, type 2 IDDM Gastroesophageal reflux disease controlled, stable per pt Hx of cardiac pacemaker Implanted 2019 (tachy-monica syndrome), Medtronic device Follows with Dr. Ramires Hypercholesterolemia Hypothyroidism Infiltrating ductal carcinoma of left breast Initial Dx 2015- s/p lumpectomy, XRT and anastrozole Metastatic breast cancer 03/2020, follows with [facility] Liver mass Pt denies but 05/17/20 PET scan shows 2.5 right hepatic lobe mass consistent with known hepatic metastasis Metastatic lung carcinoma Neuropathy Obstructive sleep apnea "Resolved" s/p gastric bypass (? retested) Pacemaker 2019, follows with Dr Ramires. checks Q6 months. Painful urination Peripheral neuropathy Hands (B/L CTS) Urinary frequency Surgical History H/O bilateral hip replacements History of carpal tunnel surgery of left wrist 06/2021 History of carpal tunnel surgery of right wrist History of section x1 History of colonoscopy History of evacuation of hematoma Hematoma right breast and right chest 08/31/13 Dr. Shah History of removal of Port-a-Cath (01/11/22) Infected port right anterior chest removed Dr. Shah History of surgery Right knee TKA revision with spacer (07/11/2021): SAB at L3-4 (x2 attempts) + PNB at [facility]. No issues noted per post-op anesthesia progress note. History of total knee arthroplasty R/L Port-A-Cath in place Insertion of Mediport Right Subclavian Dr. Shah 06/13/2020 CURRENT RIGHT SIDE S/P cardiac pacemaker procedure 2019 Status post appendectomy Status post arthroscopy of left shoulder Status post gastric bypass for obesity Status post laparoscopic cholecystectomy Status post lumbar spine surgery for decompression of spinal cord Status post panniculectomy Status post partial mastectomy of left breast Status post repair of ventral hernia Status post total abdominal hysterectomy and bilateral salpingo-oophorectomy Family History Unknown Breast cancer Emphysema lung Mother Diabetes Heart disease Father Heart disease Other No family history of adverse response to anesthesia Denies family history of Ovarian cancer Prostate cancer Coronary heart disease Colorectal cancer Social History Smoking Status: Former smoker Tobacco Type: Cigarettes packs per day: 2; Second Hand Exposure: No; Hx Alcohol Use: No Hx Substance Use: No Preferred Language: Divehi Communication Ability: Effective Visual Impairment: No Limitations Hearing Ability: Normal Batch Unit Treater Required: No Beliefs That Will Affect Care: None marital status: Current Living Situation: Spouse current occupational status: retired Other Information That Helps Us Care for You: No Feels Safe at Home: Yes Safety Concerns: Feels Safe At This Time Childhood Exposure to Second-Hand Smoke: Yes caffeine: Yes Dental Care, Regularly: No Physical Activity Frequency: 1-2 Times per Week Seatbelt Use: always Sunscreen Use: No Assistive Devices: Walker Review of Systems Review of Systems: All systems reviewed & are unremarkable except as noted in HPI & below Physical Exam Constitutional: WD/WN, vitals as above Respiratory: normal respiratory effort, + cough and able to speak in complete sentences; no respiratory distress, no labored breathing, does not use accessory muscles, not tachypneic and expiratory phase not prolonged Auscultation: + rhonchi (Anteriorly); breath sounds present, no diminished lung sounds, no crackles and no wheezes Cardiovascular: RRR, no murmur, no edema Extremities: normal capillary refill; no calf tenderness and no pedal edema Gastrointestinal (Abdomen): Inspection/Auscultation: normal bowel sounds; abdomen not distended Percussion/Palpation: + abdomen tender (Suprapubic) and abdomen soft; no guarding and abdomen not rigid Skin: no rashes, warm and dry Neurologic: moves all extremities and awake; not confused Psychiatric: A+Ox3, euthymic affect Results & Data Results & Data ([facility]) Vital Signs (Past 12 Hours) Vital Signs Temp Pulse Pulse Resp BP BP Pulse Ox 07/01/22 13:00 61 20 135/75 92 07/01/22 12:31 07/01/22 11:58 36.2 C L 74 18 122/73 94 O2 Del Method 07/01/22 13:00 Room Air 07/01/22 12:31 Room Air 07/01/22 11:58 Room Air Laboratory Results Abnormal lab results 07/01/22 07/01/22 07/01/22 Range/Units 13:00 13:00 13:20 RBC 2.85 L (4.20-5.40) M/uL Hgb 10.2 L (12.0-16.0) g/dl Hct 31.1 L (37.0-47.0) % MCV 109.1 H (80.0-100.0) fL MCH 35.8 H (25.0-34.0) pg RDW Std Deviation 69.8 H (36.4-46.3) fL RDW Coeff of Thompson 17.2 H (11.5-14.5) % Lymph # (Auto) 0.89 L (1.2-3.4) K/uL Sodium 135 L (136-145) mmol/L Creatinine 0.57 L (0.6-1.2) mg/dl BUN/Creatinine Ratio 29.8 H (10-20) Glucose 198 H (70-99(Fasting)) mg/dl POC Glucose (70-99) mg/dl Urine Protein 1+ H (Negative) Urine Glucose (UA) 1+ H (Negative) Urine Blood Trace H (Negative) Ur Leukocyte Esterase 2+ H (Negative) Urine WBC (Auto) >30 H (0-5) /hpf U Epithel Cells (Auto) 10-20 H (0-5) /lpf Human Metapneumovir PCR (NotDetected) 07/01/22 07/01/22 07/01/22 Range/Units 16:42 18:04 20:51 RBC (4.20-5.40) M/uL Hgb (12.0-16.0) g/dl Hct (37.0-47.0) % MCV (80.0-100.0) fL MCH (25.0-34.0) pg RDW Std Deviation (36.4-46.3) fL RDW Coeff of Thompson (11.5-14.5) % Lymph # (Auto) (1.2-3.4) K/uL Sodium (136-145) mmol/L Creatinine (0.6-1.2) mg/dl BUN/Creatinine Ratio (10-20) Glucose (70-99(Fasting)) mg/dl POC Glucose 112 H 220 H (70-99) mg/dl Urine Protein (Negative) Urine Glucose (UA) (Negative) Urine Blood (Negative) Ur Leukocyte Esterase (Negative) Urine WBC (Auto) (0-5) /hpf U Epithel Cells (Auto) (0-5) /lpf Human Metapneumovir PCR DETECTED A* (NotDetected) Diagnostic Findings XR chest 1V portable CLINICAL HISTORY: cough TECHNIQUE: Single frontal radiograph of the chest was obtained. Comparison: Comparison is made to chest radiograph 05/07/2022 FINDINGS: Dual lead pacemaker is seen. Left shoulder arthroplasty noted. Cardiomegaly is noted. The lungs are clear. No evidence of pleural effusion or pneumothorax. IMPRESSION: No acute abnormalities and in particular no evidence of pneumonia. CT SCAN OF THE ABDOMEN AND PELVIS WITH IV CONTRAST CLINICAL HISTORY: Lower abdominal pain. COMPARISON STUDY: Abdominal CT dated 05/07/2022. TECHNIQUE: Following the IV administration of 91 cc of Optiray 350, CT scan of the abdomen and pelvis is performed from the lung bases to the proximal femora. Images are reviewed in the axial, sagittal, and coronal planes. IV contrast was administered without complication. A dose lowering technique was utilized adhering to the principles of ALARA. CT DOSE: 561.81 mGy.cm FINDINGS: Lung bases: The heart is mildly enlarged and without pericardial effusion. Pacemaker leads are in place. There is a tiny hiatal hernia. Patchy airspace consolidation is seen at both lung bases, greatest in the right lower lobe. Liver: The contrast-enhanced liver is normal in size, contour, and attenuation. There is minimal central intrahepatic biliary ductal dilatation. The hepatic veins and portal veins are patent. There are at least 3 hepatic metastases identified which measure up to 1.8 cm. These are similar to prior examinations. Gallbladder: Cholecystectomy clips are noted in the gallbladder fossa. There is residual gallbladder versus a doubt cystic duct remnant which contains a calcified gallstone. Spleen: Normal in size and attenuation. Pancreas: Unremarkable. Adrenal glands: The pancreas is moderately atrophic. 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 These are unchanged. Kidneys: The contrast enhanced kidneys are normal in size and without hydronephrosis. The kidneys enhance symmetrically. There are numerous bilateral nonobstructing renal calculi which measure up to 7 mm. A 10 mm cyst is noted in the left upper pole. Abdominal vasculature: The abdominal aorta is normal in course and caliber noting mild atherosclerotic calcification. Bowel: Postsurgical changes noted in the stomach. Small bowel anastomosis is seen in the pelvis. There is no bowel obstruction. The appendix is not identified and reported surgically absent. Peritoneum: There is no intraperitoneal free air or abdominal ascites. A midline surgical scar is noted. Lymphadenopathy: None. Pelvic viscera: Evaluation of the pelvis is significantly degraded by streak artifact from bilateral hip arthroplasties. The bladder wall appears mildly thickened and hyperemic. The uterus is surgically absent. No adnexal lesion is seen. Skeletal structures: The skeletal structures are osteopenic. Spondylotic and postoperative change is noted throughout the lumbar spine. No lytic or blastic lesions are seen. Bilateral hip arthroplasties are in place. There are chronic/healed bilateral rib fractures. A sacral insufficiency fracture is again noted. Soft tissues: A seroma in the left supragluteal soft tissues is unchanged. This measures up to 1.3 cm diameter. IMPRESSION: 1. Patchy airspace consolidation is seen at both lung bases, right greater than left. The appearance is for pneumonia/aspiration pneumonitis. Clinical correlation will be required and radiographic follow-up to resolution is recommended. 2. The bladder wall appears mildly thickened and hyperemic. Correlate with clinical findings and urinalysis. 3. Hepatic metastatic disease is unchanged. 4. Bilateral nephrolithiasis. 5. There are gallstones within a cystic duct or gallbladder remnant. 6. Additional findings as above. Medications Administered ER medications given: Normal saline 500 mL bolus Acetaminophen 1 g IV Monistat 1 suppository Ceftriaxone 2 g IV DuoNeb 3 mL neb Guaifenesin 600 mg p.o. ECG Indication: SOB/dyspnea Rate (beats per minute): 64 Rhythm: normal sinus Findings: + other (Premature supraventricular complexes), + nonspecific-ST abn a nd + paced rhythm (Ventricular) Comparison ECG Date: from (May 07, 2022) Change: the following changes noted (Premature supraventricular complexes now present) Code Status & VTE Plan Code Status Full VTE Prophylaxis Plan VTE Prophylaxis will be ordered: Yes PG Care Time/CCT Total # of Minutes Spent Total Time Spent with Patient: Total time spent is greater than 50% in coordination of care (as documented) at patient's floor/unit and/or counseling patient: Coding Level of Care Code 18547 INT INP/OBS CARE 3/75MIN Diagnoses Hypoxia R09.02 Human metapneumovirus pneumonia J12.3 UTI (urinary tract infection) N39.0 Urinary tract infection type: site unspecified Hematuria presence: without hematuria Vulvovaginal candidiasis B37.31 Painful urination R30.9 Atrial fibrillation I48.91 Atrial fibrillation type: unspecified Chronic anemia D64.9 Chronic GERD K21.9 Diabetes type 2, controlled E11.9 Metastatic breast cancer C50.919 (1) Atrial fibrillation Atrial fibrillation type: unspecified Qualified Code(s): I48.91 - Unspecified atrial fibrillation (2) UTI (urinary tract infection) Urinary tract infection type: site unspecified Hematuria presence: without hematuria Qualified Code(s): N39.0 - Urinary tract infection, site not specified
[2022-07-01 17:44] LABS: Adenovirus PCR Not Detected (NotDetected); Bordetella parapertussis PCR Not Detected (NotDetected); Bordetella pertussis PCR Not Detected (NotDetected); Chlamydia pneumoniae PCR Not Detected (NotDetected); Coronavirus 229E PCR Not Detected (NotDetected); Coronavirus CoV-2 (COVID19)PCR Not Detected (NotDetected); Coronavirus HKU1 PCR Not Detected (NotDetected); Coronavirus NL63 PCR Not Detected (NotDetected); Coronavirus OC43PCR Not Detected (NotDetected); Influenza A PCR Not Detected (NotDetected); Influenza B PCR Not Detected (NotDetected); Mycoplasma pneumoniae PCR Not Detected (NotDetected); Parainfluenza Virus 1 PCR Not Detected (NotDetected); Parainfluenza Virus 2 PCR Not Detected (NotDetected); Parainfluenza Virus 3 PCR Not Detected (NotDetected); Parainfluenza Virus 4 PCR Not Detected (NotDetected); Respiratory Syncytial VirusPCR Not Detected (NotDetected); Rhinovirus/Enterovirus PCR Not Detected (NotDetected)
[2022-07-01] MEDS ORDERED: GLUCOSE 40% GEL 15 GM TUBE PO PRN (18:10)
[2022-07-01] MEDS ORDERED: GLUCAGON FOR INJ 1 MG VIAL SQ PRN (18:10)
[2022-07-01] MEDS ORDERED: GLUCOSE 10 TAB/TUBE PO PRN (18:10)
[2022-07-01] MEDS ORDERED: DEXTROSE 50% 50 ML SYRINGE IV PRN (18:10)
[2022-07-01] MEDS ORDERED: CARBOHYDRATES FOR HYPOGLYCEMIA PO PRN (18:10)
[2022-07-01 18:29] LABS: Human Metapneumovirus PCR DETECTED (NotDetected)
[2022-07-01] MEDS ORDERED: DEXTROMETHORPHAN POLYMR COMPLX 30MG/5 ML BTL PO PRN (18:32)
[2022-07-01] MEDS: INSULIN ASPART PER UNIT SC SCH ×2 (19:15→20:59)
[2022-07-01] MEDS: ACETAMINOPHEN 325 MG TAB PO PRN (19:33)
[2022-07-01] MEDS: ALBUT/IPRATROP 3MG/0.5MG NEB 3 ML VIAL NEB SCH (19:56)
[2022-07-01] MEDS: guaiFENesin 600 MG TABCR PO SCH (20:09)
[2022-07-01] MEDS ORDERED: PHENAZOPYRIDINE HCL 200 MG TAB PO PRN (20:10)
[2022-07-01] MEDS ORDERED: MICONAZOLE NITRATE 2% VAG CR 45 GM TUBE PV SCH (21:00)
[2022-07-01] MEDS: MELATONIN 3 MG TAB PO PRN (21:47)
[2022-07-01] MEDS ORDERED: FLUCONAZOLE 50 MG TAB PO SCH (22:15)
[2022-07-01] MEDS: METOPROLOL TARTRATE 50 MG TAB PO SCH (22:37)
[2022-07-01] MEDS: clonazePAM 0.25 MG TAB PO SCH (22:37)
[2022-07-01] MEDS: APIXABAN 5 MG TABLET PO SCH (22:38)
[2022-07-01] MEDS: ATORVASTATIN 40 MG TAB PO SCH (22:38)
[2022-07-01] MEDS: GABAPENTIN 300 MG CAP PO SCH (22:38)
[2022-07-01] MEDS ORDERED: ONDANSETRON INJ 2 MG/ML 2 ML VIAL IV PRN (22:48)
[2022-07-02] MEDS: LEVOTHYROXINE SODIUM 75 MCG TABLET PO SCH (05:34)
[2022-07-02] MEDS: ALBUT/IPRATROP 3MG/0.5MG NEB 3 ML VIAL NEB SCH ×4 (07:22→20:02)
[2022-07-02 08:52] LABS: Basophils # (auto) 0.02 K/uL (0-0.2); Basophils % (auto) 0.4 %; Eosinophils # (auto) 0.11 K/uL (0-0.50); Eosinophils % (auto) 1.9 %; Hematocrit (blood only) 31.1 % (37.0-47.0); Hemoglobin 10.3 g/dl (12.0-16.0); Immature Granulocytes # (auto) 0.02 K/uL (0.01-0.20); Immature Granulocytes % (auto) 0.4 %; Lymphocytes # (auto) 1.61 K/uL (1.2-3.4); Lymphocytes % (auto) 28.3 %; Mean Corpuscular Hemoglobin 35.3 pg (25.0-34.0); Mean Corpuscular Hgb Conc 33.1 g/dL (32.0-36.0); Mean Corpuscular Volume 106.5 fL (80.0-100.0); Mean Platelet Volume 12.1 fL (9.4-12.4); Monocytes # (auto) 0.54 K/uL (0.11-0.59); Monocytes % (auto) 9.5 %; Neutrophils # (auto) 3.38 K/uL (1.40-6.50); Neutrophils % (auto) 59.5 %; Platelet Count 194 K/uL (130-400); RDW Coefficient of Variation 17.4 % (11.5-14.5); RDW Standard Deviation 68.2 fL (36.4-46.3); Red Blood Count 2.92 M/uL (4.20-5.40); White Blood Count 5.68 K/ul (4.8-10.8)
[2022-07-02] MEDS: LANTUS PER UNIT CHARGE SQ SCH (08:57)
[2022-07-02] MEDS: INSULIN ASPART PER UNIT SC SCH ×4 (08:57→20:45)
[2022-07-02] MEDS: APIXABAN 5 MG TABLET PO SCH ×2 (08:58→20:35)
[2022-07-02] MEDS: dilTIAZem HCL 180 MG CAPCR PO SCH (08:58)
[2022-07-02] MEDS: CHOLECALCIFEROL 1,000 UNITS 25 MCG TAB PO SCH (08:58)
[2022-07-02] MEDS: clonazePAM 0.25 MG TAB PO SCH ×2 (08:58→20:34)
[2022-07-02] MEDS: CALCIUM 600MG + VIT D 400 IU TAB PO SCH (08:58)
[2022-07-02] MEDS: MULTIVITAMIN TAB PO SCH (08:59)
[2022-07-02] MEDS: DULoxetine HCL 60 MG CAP PO SCH (08:59)
[2022-07-02] MEDS: DULoxetine HCL 30 MG CAP PO SCH (08:59)
[2022-07-02] MEDS: GABAPENTIN 300 MG CAP PO SCH ×2 (08:59→20:35)
[2022-07-02] MEDS: guaiFENesin 600 MG TABCR PO SCH ×2 (08:59→20:35)
[2022-07-02] MEDS: PANTOprazole 40 MG TAB PO SCH (08:59)
[2022-07-02] MEDS: METOPROLOL TARTRATE 50 MG TAB PO SCH ×2 (08:59→20:35)
[2022-07-02 09:07] LABS: Albumin Globulin Ratio 1.3 (0.9-2); Albumin Level 3.7 gm/dl (3.4-5.0); BUN Creatinine Ratio 25.4 (10-20); Bilirubin,Total 0.5 mg/dl (0.2-1.0); Calcium 8.6 mg/dl (8.5-10.1); Creatinine Clr Calc Pharmacy 76.3 ml/min; Est GFR (African American) 104.6 ml/min; Est GFR (Non-African American) 90.3 ml/min; Globulin 2.9 gm/dl (2.5-4.0); Potassium 3.8 mmol/L (3.5-5.1); Total Protein 6.6 gm/dl (6.0-8.3)
[2022-07-02 10:15] LABS: Estimated Average Glucose 140 mg/dl; Hemoglobin A1C 6.5 % (4.5-5.6)
[2022-07-02] MEDS ORDERED: ONDANSETRON INJ 2 MG/ML 2 ML VIAL IV PRN (10:54)
--- NOTE | 2022-07-02 11:54 | Hospitalist Progress Note ---
Date of Service July 02, 2022 Assessment & Plan (1) Hypoxia: Plan: Mild hypoxia suspect due to metapneumovirus. Low suspicion of bacterial pneumonia. Incentive parameter Flutter valve DuoNebs as needed Mucinex 1200mg BID Dextromethorphan as needed (2) Human metapneumovirus pneumonia: Plan: Supportive care as above Encourage up and OOB (3) UTI (urinary tract infection): Plan: Dysuria with recent E. coli culture not improved with Macrobid Repeat urine culture and blood cultures pending Continue ceftriaxone 2 g IV daily initially prescribed a 3-day course depending on clinical improvement (4) Vulvovaginal candidiasis: Plan: Fluconazole 150 mg every 3 daily for 3 doses Discontinued Monistat 1 application at night for 7 days (patient did not like) (5) Painful urination: Plan: Unclear if due to UTI versus candidiasis. Less likely B12 injections. Pyridium as needed Continue pure wick (6) Atrial fibrillation: Plan: Continue Eliquis 5 mg p.o. twice daily Continue diltiazem and extended release 360 mg p.o. daily (7) Chronic anemia: Plan: At baseline. Hgb 8-10 range Continue to monitor Macrocytic anemia On B12 monthly injections No evidence of any active bleeding (8) Chronic GERD: Plan: Continue pantoprazole 40 mg p.o. daily (9) Diabetes type 2, controlled: Plan: Hemoglobin A1c 6.1 in January 2022. We will repeat with a.m. labs. Based on previous admissions she is required a much lower dose of insulin and will start with Lantus 5 units every morning NovoLog: --Goal BSG Range: Low 110 mg/dL, High 140 mg/dL --Correction Factor: 50 mg/dL/unit --Carbohydrate ratio = 18 g/unit --BSGs ACHS if eating, q6h if npo (10) Metastatic breast cancer: Plan: Currently on Faslodex (estrogen receptor antagonist) intramuscular injection once monthly Continue capecitabine (11) Nausea: Plan: Zofran 4mg IV q 6 hours as needed Plan VTE prophylaxis -Eliquis Diet - T2DM Disposition - admit to med/surg Admission and Anticipated Discharge Date Admission Date: July 01, 2022 Subjective Patient is awake in bed. She states she is feeling slightly better compared to yesterday, but is still coughing. She has been trying to do the flutter valve and states the mucinex is helping. She is compplaining about nausea but no vomiting. Review of Systems Review of Systems: Denies any chest pain, SOB, Dyspnea. Denies any nausea or vomiting. + urinary burning and pressure. All other ROS negative unless stated + above. Physical Exam Constitutional: WD/WN, vitals as above Neck: trachea midline, no thyromegaly Respiratory: normal respiratory effort, + cough and able to speak in complete sentences; no respiratory distress and no labored breathing Mild expiratory wheeze that cleared with some coughing Cardiovascular: Rate/Rhythm: regular rate and regular rhythm Heart Sounds: no murmur Extremities: normal capillary refill; no calf tenderness and no edema Gastrointestinal (Abdomen): Inspection/Auscultation: abdomen normal to inspection and normal bowel sounds Percussion/Palpation: abdomen soft mild tender to palpation suprapubic area Psychiatric: A+Ox3, euthymic affect Results & Data Results & Data ([facility]) Vital Signs (Past 12 Hours) Vital Signs Temp Pulse Resp BP Pulse Ox O2 Del Method 07/02/22 11:25 61 18 93 Room Air 07/02/22 07:22 64 18 96 Room Air 07/02/22 07:15 36.8 C 62 18 112/76 95 Room Air Laboratory Results Abnormal lab results 07/01/22 07/01/22 07/01/22 Range/Units 13:00 13:00 13:20 RBC 2.85 L (4.20-5.40) M/uL Hgb 10.2 L (12.0-16.0) g/dl Hct 31.1 L (37.0-47.0) % MCV 109.1 H (80.0-100.0) fL MCH 35.8 H (25.0-34.0) pg RDW Std Deviation 69.8 H (36.4-46.3) fL RDW Coeff of Thompson 17.2 H (11.5-14.5) % Lymph # (Auto) 0.89 L (1.2-3.4) K/uL Sodium 135 L (136-145) mmol/L Creatinine 0.57 L (0.6-1.2) mg/dl BUN/Creatinine Ratio 29.8 H (10-20) Glucose 198 H (70-99(Fasting)) mg/dl POC Glucose (70-99) mg/dl Hemoglobin A1c (4.5-5.6) % Urine Protein 1+ H (Negative) Urine Glucose (UA) 1+ H (Negative) Urine Blood Trace H (Negative) Ur Leukocyte Esterase 2+ H (Negative) Urine WBC (Auto) >30 H (0-5) /hpf U Epithel Cells (Auto) 10-20 H (0-5) /lpf Human Metapneumovir PCR (NotDetected) 07/01/22 07/01/22 07/01/22 Range/Units 16:42 18:04 20:51 RBC (4.20-5.40) M/uL Hgb (12.0-16.0) g/dl Hct (37.0-47.0) % MCV (80.0-100.0) fL MCH (25.0-34.0) pg RDW Std Deviation (36.4-46.3) fL RDW Coeff of Thompson (11.5-14.5) % Lymph # (Auto) (1.2-3.4) K/uL Sodium (136-145) mmol/L Creatinine (0.6-1.2) mg/dl BUN/Creatinine Ratio (10-20) Glucose (70-99(Fasting)) mg/dl POC Glucose 112 H 220 H (70-99) mg/dl Hemoglobin A1c (4.5-5.6) % Urine Protein (Negative) Urine Glucose (UA) (Negative) Urine Blood (Negative) Ur Leukocyte Esterase (Negative) Urine WBC (Auto) (0-5) /hpf U Epithel Cells (Auto) (0-5) /lpf Human Metapneumovir PCR DETECTED A* (NotDetected) 07/02/22 07/02/22 07/02/22 Range/Units 07:50 07:50 07:50 RBC 2.92 L (4.20-5.40) M/uL Hgb 10.3 L (12.0-16.0) g/dl Hct 31.1 L (37.0-47.0) % MCV 106.5 H (80.0-100.0) fL MCH 35.3 H (25.0-34.0) pg RDW Std Deviation 68.2 H (36.4-46.3) fL RDW Coeff of Thompson 17.4 H (11.5-14.5) % Lymph # (Auto) (1.2-3.4) K/uL Sodium (136-145) mmol/L Creatinine 0.59 L (0.6-1.2) mg/dl BUN/Creatinine Ratio 25.4 H (10-20) Glucose 165 H (70-99(Fasting)) mg/dl POC Glucose (70-99) mg/dl Hemoglobin A1c 6.5 H (4.5-5.6) % Urine Protein (Negative) Urine Glucose (UA) (Negative) Urine Blood (Negative) Ur Leukocyte Esterase (Negative) Urine WBC (Auto) (0-5) /hpf U Epithel Cells (Auto) (0-5) /lpf Human Metapneumovir PCR (NotDetected) 07/02/22 Range/Units 08:13 RBC (4.20-5.40) M/uL Hgb (12.0-16.0) g/dl Hct (37.0-47.0) % MCV (80.0-100.0) fL MCH (25.0-34.0) pg RDW Std Deviation (36.4-46.3) fL RDW Coeff of Thompson (11.5-14.5) % Lymph # (Auto) (1.2-3.4) K/uL Sodium (136-145) mmol/L Creatinine (0.6-1.2) mg/dl BUN/Creatinine Ratio (10-20) Glucose (70-99(Fasting)) mg/dl POC Glucose 161 H (70-99) mg/dl Hemoglobin A1c (4.5-5.6) % Urine Protein (Negative) Urine Glucose (UA) (Negative) Urine Blood (Negative) Ur Leukocyte Esterase (Negative) Urine WBC (Auto) (0-5) /hpf U Epithel Cells (Auto) (0-5) /lpf Human Metapneumovir PCR (NotDetected) Diagnostic Findings Abdomen/Pelvis CT 07/01/22 12:30 CT SCAN OF THE ABDOMEN AND PELVIS WITH IV CONTRAST CLINICAL HISTORY: Lower abdominal pain. COMPARISON STUDY: Abdominal CT dated 05/07/2022. TECHNIQUE: Following the IV administration of 91 cc of Optiray 350, CT scan of the abdomen and pelvis is performed from the lung bases to the proximal femora. Images are reviewed in the axial, sagittal, and coronal planes. IV contrast was administered without complication. A dose lowering technique was utilized adhering to the principles of ALARA. CT DOSE: 561.81 mGy.cm FINDINGS: Lung bases: The heart is mildly enlarged and without pericardial effusion. Pacemaker leads are in place. There is a tiny hiatal hernia. Patchy airspace consolidation is seen at both lung bases, greatest in the right lower lobe. Liver: The contrast-enhanced liver is normal in size, contour, and attenuation. There is minimal central intrahepatic biliary ductal dilatation. The hepatic veins and portal veins are patent. There are at least 3 hepatic metastases identified which measure up to 1.8 cm. These are similar to prior examinations. Gallbladder: Cholecystectomy clips are noted in the gallbladder fossa. There is residual gallbladder versus a doubt cystic duct remnant which contains a calcified gallstone. Spleen: Normal in size and attenuation. Pancreas: Unremarkable. Adrenal glands: The pancreas is moderately atrophic. 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 These a re unchanged. Kidneys: The contrast enhanced kidneys are normal in size and without hydronephrosis. The kidneys enhance symmetrically. There are numerous bilateral nonobstructing renal calculi which measure up to 7 mm. A 10 mm cyst is noted in the left upper pole. Abdominal vasculature: The abdominal aorta is normal in course and caliber noting mild atherosclerotic calcification. Bowel: Postsurgical changes noted in the stomach. Small bowel anastomosis is seen in the pelvis. There is no bowel obstruction. The appendix is not identified and reported surgically absent. Peritoneum: There is no intraperitoneal free air or abdominal ascites. A midline surgical scar is noted. Lymphadenopathy: None. Pelvic viscera: Evaluation of the pelvis is significantly degraded by streak artifact from bilateral hip arthroplasties. The bladder wall appears mildly thickened and hyperemic. The uterus is surgically absent. No adnexal lesion is seen. Skeletal structures: The skeletal structures are osteopenic. Spondylotic and postoperative change is noted throughout the lumbar spine. No lytic or blastic lesions are seen. Bilateral hip arthroplasties are in place. There are chronic/healed bilateral rib fractures. A sacral insufficiency fracture is again noted. Soft tissues: A seroma in the left supragluteal soft tissues is unchanged. This measures up to 1.3 cm diameter. IMPRESSION: 1. Patchy airspace consolidation is seen at both lung bases, right greater than left. The appearance is for pneumonia/aspiration pneumonitis. Clinical correlation will be required and radiographic follow-up to resolution is recommended. 2. The bladder wall appears mildly thickened and hyperemic. Correlate with clinical findings and urinalysis. 3. Hepatic metastatic disease is unchanged. 4. Bilateral nephrolithiasis. 5. There are gallstones within a cystic duct or gallbladder remnant. 6. Additional findings as above. ACT 112: Negative or not required by law. Electronically signed by: Noe Carrillo M.D. 07/01/2022 2:37 PM Chest X-Ray 07/01/22 12:30 XR chest 1V portable CLINICAL HISTORY: cough TECHNIQUE: Single frontal radiograph of the chest was obtained. Comparison: Comparison is made to chest radiograph 05/07/2022 FINDINGS: Dual lead pacemaker is seen. Left shoulder arthroplasty noted. Cardiomegaly is noted. The lungs are clear. No evidence of pleural effusion or pneumothorax. IMPRESSION: No acute abnormalities and in particular no evidence of pneumonia. ACT 112: Negative or not required by law. Electronically signed by: Emre Riojas M.D. 07/01/2022 12:54 PM PG Care Time/CCT Total # of Minutes Spent Total Time Spent with Patient: Total time spent is greater than 50% in coordination of care (as documented) at patient's floor/unit and/or counseling patient: Coding Level of Care Code 20454 SUB INP/OBS CARE 3/50MIN Diagnoses Hypoxia R09.02 Human metapneumovirus pneumonia J12.3 UTI (urinary tract infection) N39.0 Hematuria presence: without hematuria Urinary tract infection type: site unspecified Vulvovaginal candidiasis B37.31 Painful urination R30.9 Atrial fibrillation I48.91 Atrial fibrillation type: unspecified Chronic anemia D64.9 Chronic GERD K21.9 Diabetes type 2, controlled E11.9 Metastatic breast cancer C50.919 Nausea R11.0 (3) UTI (urinary tract infection) Hematuria presence: without hematuria Urinary tract infection type: site unspecified Qualified Code(s): N39.0 - Urinary tract infection, site not specified (6) Atrial fibrillation Atrial fibrillation type: unspecified Qualified Code(s): I48.91 - Unspecified atrial fibrillation
[2022-07-02] MEDS: ACETAMINOPHEN 325 MG TAB PO PRN (12:32)
[2022-07-02] MEDS ORDERED: CAPECITABINE PO SCH (15:00)
[2022-07-02] MEDS: cefTRIAXone SODIUM 2,000 MG in DEXTROSE 5% 50 ML IV SCH (16:10)
[2022-07-02] MEDS: oxyCODONE HCL IR 5 MG TAB (IMMEDIATE RELEASE) PO PRN ×2 (16:11→20:34)
[2022-07-02] MEDS: MELATONIN 3 MG TAB PO PRN (20:34)
[2022-07-02] MEDS: ATORVASTATIN 40 MG TAB PO SCH (20:35)
[2022-07-02] MEDS: CAPECITABINE PO SCH (20:36)
--- NOTE | 2022-07-02 23:34 | Electrocardiogram Report ---
Test Reason : Blood Pressure : / mmHG Vent. Rate : 064 BPM Atrial Rate : 064 BPM P-R Int : 162 ms QRS Dur : 074 ms QT Int : 386 ms P-R-T Axes : 000 015 014 degrees QTc Int : 398 ms Poor data quality, interpretation may be adversely affected Atrial fibrillation with frequent ventricular-paced complexes Abnormal ECG When compared with ECG of 07-MAY-2022 15:13, Vent. rate has decreased BY 11 BPM Confirmed by Lakhwinder Acosta ([id number]) on 07/02/2022 11:34:03 PM Referred By: Confirmed By:Lakhwinder Acosta
[2022-07-03] MEDS: LEVOTHYROXINE SODIUM 75 MCG TABLET PO SCH (06:00)
[2022-07-03] MEDS: ALBUT/IPRATROP 3MG/0.5MG NEB 3 ML VIAL NEB SCH ×4 (07:15→19:15)
[2022-07-03] MEDS: APIXABAN 5 MG TABLET PO SCH ×2 (08:30→21:02)
[2022-07-03] MEDS: CHOLECALCIFEROL 1,000 UNITS 25 MCG TAB PO SCH (08:31)
[2022-07-03] MEDS: CALCIUM 600MG + VIT D 400 IU TAB PO SCH (08:31)
[2022-07-03] MEDS: dilTIAZem HCL 180 MG CAPCR PO SCH (08:32)
[2022-07-03] MEDS: clonazePAM 0.25 MG TAB PO SCH ×2 (08:32→21:01)
[2022-07-03] MEDS: DULoxetine HCL 60 MG CAP PO SCH (08:33)
[2022-07-03] MEDS: DULoxetine HCL 30 MG CAP PO SCH (08:33)
[2022-07-03] MEDS: guaiFENesin 600 MG TABCR PO SCH ×2 (08:34→21:04)
[2022-07-03] MEDS: GABAPENTIN 300 MG CAP PO SCH ×2 (08:34→21:04)
[2022-07-03] MEDS: MULTIVITAMIN TAB PO SCH (08:35)
[2022-07-03] MEDS: PANTOprazole 40 MG TAB PO SCH (08:36)
[2022-07-03] MEDS: oxyCODONE HCL IR 5 MG TAB (IMMEDIATE RELEASE) PO PRN ×3 (08:49→21:00)
[2022-07-03] MEDS: METOPROLOL TARTRATE 50 MG TAB PO SCH ×2 (08:57→21:03)
[2022-07-03] MEDS: INSULIN ASPART PER UNIT SC SCH ×4 (09:22→21:12)
[2022-07-03] MEDS: LANTUS PER UNIT CHARGE SQ SCH (09:24)
[2022-07-03] MEDS: CAPECITABINE PO SCH ×2 (09:33→21:05)
--- NOTE | 2022-07-03 11:45 | Hospitalist Progress Note ---
Date of Service July 03, 2022 Assessment & Plan (1) Hypoxia: Plan: Mild hypoxia suspect due to metapneumovirus. Low suspicion of bacterial pneumonia. Incentive parameter Flutter valve DuoNebs as needed Mucinex 1200mg BID Dextromethorphan as needed Added [id number] IV daily (2) Human metapneumovirus pneumonia: Plan: Supportive care as above Encourage up and OOB Added Decadron 6mg IV daily (3) UTI (urinary tract infection): Plan: Dysuria with recent E. coli culture not improved with Macrobid Repeat urine culture and blood cultures pending urine culture final no growth Finished 2 days ceftriaxone 2 g IV daily initially prescribed a 3-day course (4) Vulvovaginal candidiasis: Plan: Fluconazole 150 mg every 3 daily for 3 doses Discontinued Monistat 1 application at night for 7 days (patient did not like) (5) Painful urination: Plan: Unclear if due to UTI versus candidiasis. Less likely B12 injections. Pyridium as needed Continue pure wick symptoms improving with Monistat cream and Diflucan (6) Atrial fibrillation: Plan: Continue Eliquis 5 mg p.o. twice daily Continue diltiazem and extended release 360 mg p.o. daily (7) Chronic anemia: Plan: At baseline. Hgb 8-10 range Continue to monitor Macrocytic anemia On B12 monthly injections No evidence of any active bleeding (8) Chronic GERD: Plan: Continue pantoprazole 40 mg p.o. daily (9) Diabetes type 2, controlled: Plan: Hemoglobin A1c 6.1 in January 2022. We will repeat with a.m. labs. Based on previous admissions she is required a much lower dose of insulin and will start with Lantus 5 units every morning NovoLog: --Goal BSG Range: Low 110 mg/dL, High 140 mg/dL --Correction Factor: 50 mg/dL/unit --Carbohydrate ratio = 18 g/unit --BSGs ACHS if eating, q6h if npo (10) Metastatic breast cancer: Plan: Currently on Faslodex (estrogen receptor antagonist) intramuscular injection once monthly Continue capecitabine (11) Nausea: Plan: Zofran 4mg IV q 6 hours as needed Plan VTE prophylaxis -Eliquis Diet - T2DM Disposition - admit to med/surg Admission and Anticipated Discharge Date Admission Date: July 01, 2022 Subjective Patient was sleeping, awoke to her name. She tells me that she did not sleep well due to coughing and feeling "miserable" She states her dysuria is feeling better and she thinks the monistat cream is helping. Review of Systems Review of Systems: Denies any chest pain, SOB, Dyspnea. Denies any nausea or vomiting. + urinary burning and pressure. All other ROS negative unless stated + above. Physical Exam Constitutional: WD/WN, vitals as above Neck: trachea midline, no thyromegaly Respiratory: normal respiratory effort, + cough and able to speak in complete sentences; no respiratory distress and no labored breathing Cardiovascular: Rate/Rhythm: regular rate and regular rhythm Heart Sounds: no murmur Extremities: normal capillary refill; no calf tenderness and no edema Gastrointestinal (Abdomen): Inspection/Auscultation: abdomen normal to inspection and normal bowel sounds Percussion/Palpation: abdomen soft Psychiatric: A+Ox3, euthymic affect Results & Data Results & Data ([facility]) Vital Signs (Past 12 Hours) Vital Signs Temp Pulse Pulse Resp BP BP Pulse Ox 07/03/22 10:59 62 18 92 07/03/22 09:23 07/03/22 08:55 64 122/64 07/03/22 07:25 36.5 C 58 L 18 137/74 98 O2 Del Method 07/03/22 10:59 Room Air 07/03/22 09:23 Room Air 07/03/22 08:55 07/03/22 07:25 Room Air Laboratory Results Abnormal lab results 07/02/22 07/02/22 07/03/22 Range/Units 17:12 20:40 07:57 POC Glucose 141 H 209 H 148 H (70-99) mg/dl 07/03/22 Range/Units 12:06 POC Glucose 166 H (70-99) mg/dl PG Care Time/CCT Total # of Minutes Spent Total Time Spent with Patient: Total time spent is greater than 50% in coordination of care (as documented) at patient's floor/unit and/or counseling patient: Coding Level of Care Code 04040 SUB INP/OBS CARE 2/35MIN Diagnoses Hypoxia R09.02 Human metapneumovirus pneumonia J12.3 UTI (urinary tract infection) N39.0 Hematuria presence: without hematuria Urinary tract infection type: site unspecified Vulvovaginal candidiasis B37.31 Painful urination R30.9 Atrial fibrillation I48.91 Atrial fibrillation type: unspecified Chronic anemia D64.9 Chronic GERD K21.9 Diabetes type 2, controlled E11.9 Metastatic breast cancer C50.919 Nausea R11.0 (3) UTI (urinary tract infection) Hematuria presence: without hematuria Urinary tract infection type: site unspecified Qualified Code(s): N39.0 - Urinary tract infection, site not specified (6) Atrial fibrillation Atrial fibrillation type: unspecified Qualified Code(s): I48.91 - Unspecified atrial fibrillation
[2022-07-03] MEDS: dexAMETHasone 6 MG in SYRINGE 0 ML IV SCH (12:34)
[2022-07-03] MEDS: cefTRIAXone SODIUM 2,000 MG in DEXTROSE 5% 50 ML IV SCH (16:04)
[2022-07-03] MEDS: MELATONIN 3 MG TAB PO PRN (21:01)
[2022-07-03] MEDS: ATORVASTATIN 40 MG TAB PO SCH (21:05)
[2022-07-04] MEDS: LEVOTHYROXINE SODIUM 75 MCG TABLET PO SCH (05:24)
[2022-07-04] MEDS: ACETAMINOPHEN 325 MG TAB PO PRN (06:35)
[2022-07-04 08:57] LABS: Hematocrit (blood only) 30.2 % (37.0-47.0); Hemoglobin 10.1 g/dl (12.0-16.0); Mean Corpuscular Hemoglobin 35.3 pg (25.0-34.0); Mean Corpuscular Hgb Conc 33.4 g/dL (32.0-36.0); Mean Corpuscular Volume 105.6 fL (80.0-100.0); Mean Platelet Volume 11.5 fL (9.4-12.4); Platelet Count 234 K/uL (130-400); RDW Coefficient of Variation 16.9 % (11.5-14.5); RDW Standard Deviation 65.6 fL (36.4-46.3); Red Blood Count 2.86 M/uL (4.20-5.40)
[2022-07-04 09:10] LABS: BUN Creatinine Ratio 45.3 (10-20); Calcium 8.9 mg/dl (8.5-10.1); Creatinine Clr Calc Pharmacy 70.3 ml/min; Est GFR (African American) 101.9 ml/min; Est GFR (Non-African American) 87.9 ml/min; Potassium 4.2 mmol/L (3.5-5.1)
[2022-07-04] MEDS: INSULIN ASPART PER UNIT SC SCH ×2 (09:27→13:05)
[2022-07-04] MEDS: LANTUS PER UNIT CHARGE SQ SCH (09:28)
[2022-07-04] MEDS: oxyCODONE HCL IR 5 MG TAB (IMMEDIATE RELEASE) PO PRN (09:33)
[2022-07-04] MEDS: CAPECITABINE PO SCH (09:33)
[2022-07-04] MEDS: dexAMETHasone 6 MG in SYRINGE 0 ML IV SCH (09:34)
[2022-07-04] MEDS: DULoxetine HCL 60 MG CAP PO SCH (09:34)
[2022-07-04] MEDS: MULTIVITAMIN TAB PO SCH (09:34)
[2022-07-04] MEDS: DULoxetine HCL 30 MG CAP PO SCH (09:35)
[2022-07-04] MEDS: PANTOprazole 40 MG TAB PO SCH (09:35)
[2022-07-04] MEDS: CALCIUM 600MG + VIT D 400 IU TAB PO SCH (09:35)
[2022-07-04] MEDS: METOPROLOL TARTRATE 50 MG TAB PO SCH (09:35)
[2022-07-04] MEDS: GABAPENTIN 300 MG CAP PO SCH (09:35)
[2022-07-04] MEDS: dilTIAZem HCL 180 MG CAPCR PO SCH (09:35)
[2022-07-04] MEDS: APIXABAN 5 MG TABLET PO SCH (09:35)
[2022-07-04] MEDS: guaiFENesin 600 MG TABCR PO SCH (09:35)
[2022-07-04] MEDS: CHOLECALCIFEROL 1,000 UNITS 25 MCG TAB PO SCH (09:36)
[2022-07-04] MEDS: clonazePAM 0.25 MG TAB PO SCH (09:38)
[2022-07-04] MEDS: ALBUT/IPRATROP 3MG/0.5MG NEB 3 ML VIAL NEB SCH ×3 (10:22→15:02)
[2022-07-04] MEDS ORDERED: INSULIN ASPART PER UNIT SC STA (12:57)
--- NOTE | 2022-07-04 16:17 | Discharge Summary ---
Date of Service July 04, 2022 Admission HPI Per Admitting Provider Faith Solorzano is a 72 year old female who presents to the ER with urinary symptoms and shortness of breath. She reports 2 days of a wet cough but is unable to cough anything up, sore throat, diarrhea, headache, nasal congestion and shortness of breath. She believes she caught something from her who is coughing for the last week. She also notes ongoing dysuria that has been present for several weeks. Most recently urine culture grew E. coli on June 26 and she was prescribed Macrobid for this without any improvement in her symptoms. No fever, chills, flank pain. Principal Diagnosis 1. Viral pneumonia with hypoxia 2. Urinary frequency Discharge Exam GENERAL: 72 yo Well-developed, well-nourished elderly [place]. NAD. LUNGS: Nonlabored, few expiratory wheezes and crackles noted in RLL CARDIOVASCULAR: Regular rate and rhythm w/ 2/6 STEF. Discharge Data Allergies Allergy/AdvReac Type Severity Reaction Status Date / Time metformin AdvReac Intermediate Insomnia Verified 07/05/22 09:42 Ordered Studies Abdomen/Pelvis CT 07/01/22 12:30 CT SCAN OF THE ABDOMEN AND PELVIS WITH IV CONTRAST CLINICAL HISTORY: Lower abdominal pain. COMPARISON STUDY: Abdominal CT dated 05/07/2022. TECHNIQUE: Following the IV administration of 91 cc of Optiray 350, CT scan of the abdomen and pelvis is performed from the lung bases to the proximal femora. Images are reviewed in the axial, sagittal, and coronal planes. IV contrast was administered without complication. A dose lowering technique was utilized adhering to the principles of ALARA. CT DOSE: 561.81 mGy.cm FINDINGS: Lung bases: The heart is mildly enlarged and without pericardial effusion. Pacemaker leads are in place. There is a tiny hiatal hernia. Patchy airspace consolidation is seen at both lung bases, greatest in the right lower lobe. Liver: The contrast-enhanced liver is normal in size, contour, and attenuation. There is minimal central intrahepatic biliary ductal dilatation. The hepatic veins and portal veins are patent. There are at least 3 hepatic metastases identified which measure up to 1.8 cm. These are similar to prior examinations. Gallbladder: Cholecystectomy clips are noted in the gallbladder fossa. There is residual gallbladder versus a doubt cystic duct remnant which contains a calcified gallstone. Spleen: Normal in size and attenuation. Pancreas: Unremarkable. Adrenal glands: The pancreas is moderately atrophic. 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 These are unchanged. Kidneys: The contrast enhanced kidneys are normal in size and without hydronephrosis. The kidneys enhance symmetrically. There are numerous bilateral nonobstructing renal calculi which measure up to 7 mm. A 10 mm cyst is noted in the left upper pole. Abdominal vasculature: The abdominal aorta is normal in course and caliber noting mild atherosclerotic calcification. Bowel: Postsurgical changes noted in the stomach. Small bowel anastomosis is seen in the pelvis. There is no bowel obstruction. The appendix is not identified and reported surgically absent. Peritoneum: There is no intraperitoneal free air or abdominal ascites. A midline surgical scar is noted. Lymphadenopathy: None. Pelvic viscera: Evaluation of the pelvis is significantly degraded by streak artifact from bilateral hip arthroplasties. The bladder wall appears mildly thickened and hyperemic. The uterus is surgically absent. No adnexal lesion is seen. Skeletal structures: The skeletal structures are osteopenic. Spondylotic and postoperative change is noted throughout the lumbar spine. No lytic or blastic lesions are seen. Bilateral hip arthroplasties are in place. There are chronic/healed bilateral rib fractures. A sacral insufficiency fracture is again noted. Soft tissues: A seroma in the left supragluteal soft tissues is unchanged. This measures up to 1.3 cm diameter. IMPRESSION: 1. Patchy airspace consolidation is seen at both lung bases, right greater than left. The appearance is for pneumonia/aspiration pneumonitis. Clinical correlation will be required and radiographic follow-up to resolution is recommended. 2. The bladder wall appears mildly thickened and hyperemic. Correlate with clinical findings and urinalysis. 3. Hepatic metastatic disease is unchanged. 4. Bilateral nephrolithiasis. 5. There are gallstones within a cystic duct or gallbladder remnant. 6. Additional findings as above. ACT 112: Negative or not required by law. Electronically signed by: Noe Carrillo M.D. 07/01/2022 2:37 PM Chest X-Ray 07/01/22 12:30 XR chest 1V portable CLINICAL HISTORY: cough TECHNIQUE: Single frontal radiograph of the chest was obtained. Comparison: Comparison is made to chest radiograph 05/07/2022 FINDINGS: Dual lead pacemaker is seen. Left shoulder arthroplasty noted. Cardiomegaly is noted. The lungs are clear. No evidence of pleural effusion or pneumothorax. IMPRESSION: No acute abnormalities and in particular no evidence of pneumonia. ACT 112: Negative or not required by law. Electronically signed by: Emre Riojas M.D. 07/01/2022 12:54 PM Hospital Course (1) Hypoxia: Mild hypoxia suspect due to metapneumovirus. Low suspicion of bacterial pneumonia. Incentive spirometer Flutter valve DuoNebs as needed Mucinex 1200mg BID Dextromethorphan as needed Added [id number] IV daily x 2 doses No longer hypoxic (2) Human metapneumovirus pneumonia: Supportive care as above Encourage up and OOB Added Decadron 6mg IV daily x 2 doses D/c on Albuterol inhaler PRN dyspnea/wheezing No further steroids needed (3) Vulvovaginal candidiasis: Fluconazole 150 mg every 3 daily for 3 doses Discontinued Monistat 1 application at night for 7 days (patient did not like) (4) Painful urination: Unclear if due to UTI versus candidiasis. Less likely B12 injections. Pyridium as needed ordered PRN in the hospital - will discontinue on discharge symptoms improving with Monistat cream and Diflucan which she should continue Urinary frequency is primary complaint today, rx for Oxybutynin daily, hold for retention (5) Atrial fibrillation: Continue Eliquis 5 mg p.o. twice daily Continue diltiazem and extended release 360 mg p.o. daily (6) Chronic anemia: At baseline. Hgb 8-10 range Continue to monitor Macrocytic anemia On B12 monthly injections No evidence of any active bleeding (7) Chronic GERD: Continue pantoprazole 40 mg p.o. daily (8) Diabetes type 2, controlled: Hemoglobin A1c 6.1 in January 2022. We will repeat with a.m. labs. Treated with very low dose Lantus during her stay and began having hyperglycemia with initiation of IV steroids Can return home on her home diabetic med regimen (Lantus and Trulicity) (9) Metastatic breast cancer: Currently on Faslodex (estrogen receptor antagonist) intramuscular injection once monthly Continue capecitabine Follow up with oncology Plan Patient is medically and hemodynamically stable for discharge home today. Follow up with PCP within 1 week of discharge or sooner if needed. Above plan of care has been d/w Dr. Cox who has also seen and evaluated this patient and agrees with aforementioned. Total Time Total Time Spent Total Time Spent (In Minutes): >30 minutes Discharge Plan Discharge Items Patient Disposition: Home - Self-Care Reason For Visit: HYPOXIA, UPPER RESPIRATORY COUGH, DYSURIA Discharge Diagnosis: low oxygen levels due to viral pneumonia Activity: Resume your previous activity Non-emergency contact: Primary Care Provider Call non-emergency contact if: you have any medication questions Follow-up/Referrals: Quinn Lovett MD [Primary Care Provider] - 07/12/22 1:30 pm Diet: Carb Consistent or DM2 Addtl Attending Provider Instructions: You were hospitalized due to low oxygen levels which was due to a viral pneumonia. You were treated with breathing treatments, steroids, and mucinex. You have responded well and are no longer requiring oxygen. You have been prescribed an inhaler that you can use as directed for shortness of breath or wheezing. You were also noted to have urinary frequency, but you do not have a urinary tract infection or bladder infection. You do not require antibiotics. Please continue your medications as prescribed. We have started you on a medication called Oxybutynin 5mg once a day for your urinary frequency. If you start to develop difficulty peeing, please contact your primary care physician and stop this medication. Please follow up with your family doctor within 1 week of discharge (or sooner if needed). If you have any questions or concerns following your discharge, please call the nonemergency number listed on your paperwork. In the event of a medical emergency, call 911. Pending Studies at Discharge: No Stand-Alone Forms: My [employer], Smoking Cessation Medications and DC Order Prescriptions: New oxybutynin chloride 5 mg tablet extended release 24hr 5 mg PO DAILY Qty: 30 0RF albuterol sulfate 90 mcg/actuation HFA aerosol inhaler 2 inh inhalation Q4H PRN (Reason: shortness of breath or wheezing) Qty: 8.5 0RF Continued multivitamin tablet 1 tab PO QAM (DME) BD Luer-Veronica Syringe 3 mL 25 gauge x 1" syringe See Rx Instructions .Route Qty: 100 1RF Rx Instructions: Use once monthly with vitamin B12 injections. cyanocobalamin (vitamin B-12) 1,000 mcg/mL kit 1,000 mcg IM MONTHLY Qty: 1 3RF Rx Instructions: USUALLY AROUND THE 12TH. (DME) OneTouch Ultra Test Strip See Rx Instructions .Route Qty: 100 5RF Rx Instructions: Test BS 3x daily (DME) lancets [OneTouch Delica Plus Lancet] 33 gauge misc See Rx Instructions .Route Qty: 300 3RF Rx Instructions: use to check bsg 3 times daily (DME) lancing device with lancets [OneTouch Delica Plus Lanc Dev] Kit See Rx Instructions .Route Qty: 1 0RF Rx Instructions: use to check bsg 3 times daily metoprolol tartrate 50 mg tablet 50 mg PO BID Qty: 180 3RF levothyroxine 25 mcg tablet 37.5 mcg PO QAM Qty: 135 3RF diltiazem HCl 360 mg capsule,extended release 24 hr 360 mg PO QAM Qty: 90 3RF (DME) pen needle, diabetic [Easy Comfort Pen [place]] 32 gauge x 5/32" needle See Rx Instructions .Route Qty: 100 3RF Rx Instructions: As directed doxycycline hyclate 100 mg tablet 100 mg PO BID Qty: 60 3RF atorvastatin 40 mg tablet 40 mg PO HS Qty: 90 3RF duloxetine [Cymbalta] 60 mg capsule,delayed release(DR/EC) 60 mg PO QAM Qty: 90 3RF Rx Instructions: Take together with 30 mg capsule for total dose of 90 mg daily. gabapentin 300 mg capsule 300 mg PO BID Qty: 60 5RF Trulicity 1.5 mg/0.5 mL pen injector 1.5 mg subcut .COMPLEX Qty: 4 5RF Rx Instructions: TAKE THIS MED EVERY FRIDAY pantoprazole [Protonix] 40 mg tablet,delayed release (DR/EC) 40 mg PO QAM Qty: 90 3RF insulin glargine [Basaglar KwikPen U-100 Insulin] 100 unit/mL (3 mL) insulin pen 31 unit subcut QPM Qty: 15 3RF oxycodone 5 mg tablet 5 mg PO BID PRN (Reason: pain) 30 Days Qty: 60 0RF Eliquis 5 mg tablet 5 mg PO BID Qty: 60 5RF duloxetine [Cymbalta] 30 mg capsule,delayed release(DR/EC) 30 mg PO QAM Qty: 90 3RF Rx Instructions: Take together with 60 mg capsule for total dose of 90 mg daily. capecitabine 500 mg tablet 1,000 mg PO DAILY cholecalciferol (vitamin D3) [Vitamin D3] 25 mcg (1,000 unit) Capsule 1,000 unit PO QAM ondansetron HCl 4 mg Tablet 4 mg PO Q8H PRN (Reason: Nausea) meclizine 25 mg tablet 25 mg PO UD PRN (Reason: dizziness) capecitabine 500 mg Tablet See Rx Instructions .ROUTE .COMPLEX Rx Instructions: 1500mg AM and 1500mg PM PO daily for 14 days thiamine HCl (vitamin B1) [Vitamin B-1] 100 mg Tablet 100 mg PO QAM Qty: 30 0RF diclofenac sodium [Voltaren Arthritis Pain] 1 % gel 2 g topical UD PRN (Reason: Pain) Rx Instructions: apply to single elbow, wrist or hand; for hand includes palm/fingers/back of hand calcium carbonate [Calcium 600] 600 mg calcium (1,500 mg) Tablet 600 mg PO QAM No Action Mucinex 1,200 mg tablet extended release 12hr 1,200 mg PO BID Qty: 60 0RF clonazepam 0.5 mg tablet 0.25 mg PO BID Qty: 30 0RF Rx Instructions: Ongoing therapy: Quinn Lovett MD GISELLE# [id number] [facility] [id number] Discharge Orders: Discharge Order (Routine); Ordered 07/04/22 Ordered By: Belinda Gallagher/Other Patient Handouts: Managing Type 2 Diabetes Admission Data Admit Date/Time: 07/01/22 16:02 Attending Provider: Ulysses Cox Admit Provider: Kris Person Primary Care Provider: Quinn Lovett Other Providers: Lazara Maher [facility] Other Interventions: Discharge Summary Assessment (RN) Last Done: 07/04/22 15:58 Supervising Physician Co-Signing Physician Notes Patient seen and examined at bedside. Obtained a brief physical examination and a history of current ilness. Discussed discharge plan with patient and CHANTAL Matute. I reviewed above note and agree with it. Admitted for viral pneumonia. decadron as stated above. Coding Level of Care Code HOSP INP/OBS DISCH >30 MIN Diagnoses Hypoxia R09.02 Human metapneumovirus pneumonia J12.3 Vulvovaginal candidiasis B37.31 Painful urination R30.9 Atrial fibrillation I48.91 Atrial fibrillation type: unspecified Chronic anemia D64.9 Chronic GERD K21.9 Diabetes type 2, controlled E11.9 Metastatic breast cancer C50.298
== END 2022-07-04 16:30 | disposition home or self-care (01) | DRG 195 ==
LOC: ED 11:55 → SUATTDRO 16:02 → 3W 16:02

== ENCOUNTER 2023-08-07 12:12 | Inpatient (IN) ==
[2023-08-07] MEDS: SODIUM CHLORIDE 0.9% 500 ML IV STA (12:59)
[2023-08-07 13:28] LABS: Basophils # (auto) 0.05 K/uL (0.00-0.20); Basophils % (auto) 1.1 %; Eosinophils # (auto) 0.06 K/uL (0.00-0.50); Eosinophils % (auto) 1.3 %; Hematocrit (blood only) 30.3 % (37.0-47.0); Hemoglobin 9.9 g/dl (12.0-16.0); Immature Granulocytes # (auto) 0.01 K/uL (0.01-0.20); Immature Granulocytes % (auto) 0.2 %; Lymphocytes # (auto) 1.14 K/uL (1.20-3.40); Lymphocytes % (auto) 24.7 %; Mean Corpuscular Hgb Conc 32.7 g/dL (32.0-36.0); Mean Corpuscular Volume 104.1 fL (80.0-100.0); Mean Platelet Volume 10.8 fL (9.4-12.4); Monocytes # (auto) 0.63 K/uL (0.11-0.59); Monocytes % (auto) 13.6 %; Neutrophils # (auto) 2.73 K/uL (1.40-6.50); Neutrophils % (auto) 59.1 %; Platelet Count 293 K/uL (130-400); RDW Coefficient of Variation 19.4 % (11.5-14.5); RDW Standard Deviation 75.4 fL (36.4-46.3); Red Blood Count 2.91 M/uL (4.20-5.40); White Blood Count 4.62 K/ul (4.8-10.8)
--- NOTE | 2023-08-07 13:28 | Emergency Department Note ---
History of Present Illness General Chief complaint: Kidney Stone Stated complaint: POS KIDEY STONES, REF BY DOC Time Seen by Provider: 08/07/23 13:09 Source: patient, family ( who was at the bedside), RN notes reviewed and old records reviewed (07/10/23-outpatient labs consultation from infectious disease at [facility]) Mode of arrival: ambulatory Limitations: no limitations History of Present Illness Maximum Pain Intensity: 10 This patient 73-year-old female comes in after nausea and vomiting. She has had this for couple weeks. She says she was being treated for UTI and they sent her to [facility] where she had a workup done there. She is currently on no antibiotics. She has not been able to eat much as she been throwing up for the last 2 weeks. She has been throwing up quite a bit. No fever no melena today but has been moving. No chest pain or shortness of breath she has had some dysuria and occasional blood abdominal cramping intermittently she does have history of breast cancer with liver metastases. No numbness or weakness focally but diffusely weak. She is on chemo pills but no IV chemo. Occasional headache but none now. Home Medications Medication Instructions Recorded Confirmed Type gabapentin 300 mg capsule 300 mg PO TID #90 caps 09/27/22 07/24/23 Rx pantoprazole 40 mg tablet,delayed 40 mg PO QAM #90 tabs 09/27/22 07/24/23 Rx release (Protonix) atorvastatin 40 mg tablet 40 mg PO HS #90 tabs 10/07/22 07/24/23 Rx blood sugar diagnostic (OneTouch #100 ea 10/07/22 07/24/23 Rx Ultra Test strips) cyanocobalamin (vitamin B-12) 1,000 mcg IM MONTHLY #1 ea 10/07/22 07/24/23 Rx 1,000 mcg/mL injection kit diltiazem HCl 360 mg capsule,24 360 mg PO QAM #90 caps 10/08/22 07/24/23 Rx hr,extended release vortioxetine 20 mg tablet 20 mg PO QAM 11/22/22 07/24/23 History (Trintellix) OneTouch Delica Plus Lancet 33 #300 ea 01/09/23 07/24/23 Rx gauge (lancets) hydroxyzine HCl 10 mg tablet 10 mg PO .QHS #30 tabs 01/28/23 07/24/23 Rx albuterol sulfate 90 mcg/actuation 2 puff inhalation Q4 PRN Shortness 02/24/23 07/24/23 Rx aerosol inhaler Of Breath Or Wheezing #8.5 grams apixaban 5 mg tablet (Eliquis) 5 mg PO BID #60 tabs 02/24/23 07/24/23 Rx capecitabine 150 mg tablet (Xeloda) 150 mg PO BID 02/28/23 07/24/23 History diphenoxylate-atropine 2.5 1 tab PO QID PRN 02/28/23 07/24/23 History mg-0.025 mg tablet insulin glargine 100 unit/mL 20 unit subcut QPM 02/28/23 07/24/23 History subcutaneous solution (Lantus U-100 Insulin) meclizine 25 mg tablet 25 mg PO DAILY PRN 02/28/23 07/24/23 History losartan 25 mg tablet 25 mg PO DAILY #90 tabs 05/09/23 07/24/23 Rx pen needle, diabetic 32 gauge x #100 ea 06/12/23 07/24/23 Rx 5/32" (Easy Comfort Pen [place]) tirzepatide 5 mg/0.5 mL 5 mg (0.5 mL) subcut .COMPLEX #2 mL 07/18/23 07/24/23 Rx subcutaneous pen injector (James) tramadol 50 mg tablet 50 mg PO TID PRN pain (scale score 07/29/23 Rx 7-10) #90 tabs levothyroxine 25 mcg tablet 37.5 mcg (1.5 x 25 mcg) PO QAM 07/30/23 Rx #135 tabs Allergies Allergy/AdvReac Type Severity Reaction Status Date / Time metformin Allergy Unknown Verified 07/24/23 15:18 Past Med/Surg History Medical History Breast skin changes Human metapneumovirus pneumonia Infected venous access port 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 History of blood transfusion Closed fracture of left distal fibula Breast cancer (12/18/15) "Abnormal left breast mammogram Status post core needle biopsy 12/18/2015 revealing infiltrating ductal carcinoma Estrogen receptor positive, progesterone receptor positive, HER-2/po negative Status post left needle localization lumpectomy and sentinel lymph node biopsy 01/04/2016 Stage pT1c pN0M0 Status post completion of radiation therapy 02/13/2016 received 3850 cGy utilizing accelerated partial breast irradiation." On 01/17/16 14:10 Deidre Orta wrote "Abnormal left breast mammogram Status post core needle biopsy 12/18/2015 revealing infiltrating ductal carcinoma Estrogen receptor positive, progesterone receptor positive, HER-2/po negative Status post left needle localization lumpectomy and sentinel lymph node biopsy 01/04/2016 Stage pT1c pN0M0" Generalized weakness Lung nodules monitoring Urinary frequency Pacemaker 2019, follows with Dr Ramires. checks Q6 months. Neuropathy Anxiety Aortic stenosis Mild aortic stenosis (MERLENE 1.6cm2; MG 7.8mmHg) per 12/2019 echo Diabetes mellitus, type 2 IDDM Degenerative disc disease Hx of cardiac pacemaker Implanted 2019 (tachy-monica syndrome), [employer] device Follows with Dr. Ramires Liver mass Pt denies but 05/17/20 PET scan shows 2.5 right hepatic lobe mass consistent with known hepatic metastasis Anemia h/o blood transfusions Infiltrating ductal carcinoma of left breast Initial Dx 2015- s/p lumpectomy, XRT and anastrozole Metastatic breast cancer 03/2020, follows with [facility] Atrial fibrillation follows with Dr Ramires Hypothyroidism Peripheral neuropathy Hands (B/L CTS) Obstructive sleep apnea "Resolved" s/p gastric bypass (? retested) Hypercholesterolemia Gastroesophageal reflux disease controlled, stable per pt Depression Chronic pain Cervical spine disease Full ROM per pt Surgical History H/O breast biopsy (05/29/23) Skin, left breast, 2 punch biopsies: In office procedure Dr. Alvarez - Fibrosing dermatitis. - See comment Status post revision of total replacement of right knee History of removal of Port-a-Cath (01/11/22) Infected port right anterior chest removed Dr. Shah S/P cardiac pacemaker procedure 2019 History of surgery Right knee TKA revision with spacer (07/11/2021): SAB at L3-4 (x2 attempts) + PNB at [facility]. No issues noted per post-op anesthesia progress note. History of carpal tunnel surgery of left wrist 06/2021 History of carpal tunnel surgery of right wrist Port-A-Cath in place hx - 05/2020 since removed d/t infection at port 12/2021 History of colonoscopy History of evacuation of hematoma Hematoma right breast and right chest 08/31/13 Dr. Shah H/O bilateral hip replacements Status post repair of ventral hernia History of total knee arthroplasty R/L Status post total abdominal hysterectomy and bilateral salpingo-oophorectomy Status post lumbar spine surgery for decompression of spinal cord Status post partial mastectomy of left breast Status post panniculectomy History of section x1 Status post laparoscopic cholecystectomy Status post gastric bypass for obesity Status post arthroscopy of left shoulder Status post appendectomy Family History Unknown Breast cancer Emphysema lung Mother Diabetes Heart disease Father Heart disease Other No family history of adverse response to anesthesia Denies family history of Ovarian cancer Prostate cancer Coronary heart disease Colorectal cancer Social History Smoking Status: Former smoker Tobacco Type: Cigarettes packs per day: 2; Second Hand Exposure: Yes (hx); Do You Dip or Chew Tobacco: No; Hx Alcohol Use: Yes Alcohol type: beer and wine Hx Substance Use: No Preferred Language: Kyrgyz Communication Ability: Effective Visual Impairment: No Limitations Hearing Ability: Normal Press Loader Required: No Beliefs That Will Affect Care: None marital status: Current Living Situation: Spouse current occupational status: retired Feels Safe at Home: Yes Childhood Exposure to Second-Hand Smoke: Yes Diet: diabetic caffeine: Yes Dental Care, Regularly: No Physical Activity Frequency: 1-2 Times per Week Seatbelt Use: always Sunscreen Use: No Assistive Devices: Walker Review of Systems A total of 10 systems reviewed and were otherwise negative Physical Exam Vital Signs Vital Signs - 24 hr 08/07/23 12:20 Temperature 36.2 C L Temperature Source Temporal Artery Scan Pulse Rate 71 Respiratory Rate 20 Respiratory Effort / Characteristics Non-Labored Spontaneous Respiratory Depth Normal Blood Pressure 124/71 Blood Pressure Mean 88 Pulse Oximetry 98 Oxygen Delivery Method Room Air Sepsis Recent Fever Within 48 Hours No Sepsis New/Unexplained Change in Mental Status No Sepsis Action Taken by Nursing No Action Required General: Well developed well nourished older female who appears in no acute distress, breathing comfortably on room air. Normal speech HEENT: Normal cephalic atraumatic. Pupils are equal round and reactive to light. Extraocular movements are intact. Oropharynx is pink with moist mucous membranes. No swelling of the mouth lips or tongue. Neck: Supple with a midline trachea. No meningeal signs or stiffness, no JVD or bruits. No Stridor. Chest: Clear to auscultation bilaterally. No wheezes or rhonchi. No increased work of breathing. Heart: Regular rate and rhythm without murmurs or gallops. Abdomen: Soft mildly diffusely tender in the lower abdomen nondistended without rebound guarding or rigidity. Extremities: No cyanosis clubbing or edema. No calf tenderness or assymetry Spine/Back. Non tender to palpation. No CVA tenderness Skin: Good turgor without rashes. Neurologic exam: Cranial nerves two through 12 are intact. Motor and sensation are intact and symmetrical throughout. Course Administered Medications Sodium Chloride (Nss) 500 mls @ 999 mls/hr IV .Q31M ONE Stop: 08/07/23 14:47 Last Admin: 08/07/23 14:40 Dose: 999 mls/hr Documented By: NELIDA Discontinued Medications Sodium Chloride (Nss) 500 mls @ 999 mls/hr IV .Q31M STA Stop: 08/07/23 12:53 Last Infusion: 08/07/23 13:45 Dose: Infused Documented By: Admin: 08/07/23 12:59 Dose: 999 mls/hr Documented By: KEVIN Morphine Sulfate (Morphine Sulfate 2 Mg/Ml Carp) 2 mg IV NOW STA Stop: 08/07/23 14:18 Last Admin: 08/07/23 14:39 Dose: 2 mg Documented By: NELIDA Ondansetron HCl (Ondansetron Inj 2 Mg/Ml 2 Ml Vial) 4 mg IV NOW STA Stop: 08/07/23 14:18 Last Admin: 08/07/23 14:40 Dose: 4 mg Documented By: NELIDA Medical Decision Making Differential Diagnosis Kidney stone, urinary tract infection, vulvovaginitis, cancer related complication or metastases. Electrolyte or metabolic abnormality, intra- abdominal process, appendicitis, diverticulitis Medical Records Attestation: I reviewed the patient's medical records. Home Medications Current Medication List: was personally reviewed by me Laboratory Data Attestation: I reviewed the patient's lab results. 08/07/23 12:55 08/07/23 12:55 Lab Results 08/07/23 Range/Units 12:55 WBC 4.62 L (4.8-10.8) K/ul RBC 2.91 L (4.20-5.40) M/uL Hgb 9.9 L (12.0-16.0) g/dl Hct 30.3 L (37.0-47.0) % MCV 104.1 H (80.0-100.0) fL MCH 34.0 (25.0-34.0) pg MCHC 32.7 (32.0-36.0) g/dL RDW Std Deviation 75.4 H (36.4-46.3) fL RDW Coeff of Thompson 19.4 H (11.5-14.5) % Plt Count 293 (130-400) K/uL MPV 10.8 (9.4-12.4) fL Immature Gran % (Auto) 0.2 % Neut % (Auto) 59.1 % Lymph % (Auto) 24.7 % [place] % (Auto) 13.6 % Eos % (Auto) 1.3 % Baso % (Auto) 1.1 % Neut # (Auto) 2.73 (1.40-6.50) K/uL Lymph # (Auto) 1.14 L (1.20-3.40) K/uL [place] # (Auto) 0.63 H (0.11-0.59) K/uL Eos # (Auto) 0.06 (0.00-0.50) K/uL Baso # (Auto) 0.05 (0.00-0.20) K/uL Immature Gran # (Auto) 0.01 (0.01-0.20) K/uL Sodium 139 (136-145) mmol/L Potassium 3.2 L (3.5-5.1) mmol/L Chloride 106 (98-107) mmol/L Carbon Dioxide 24 (21-32) mmol/L Anion Gap 9 (3-11) BUN 8 (6-23) mg/dl Creatinine 0.51 L (0.6-1.2) mg/dl Est Cr Clr Drug Dosing Not Reportable Est GFR ( Amer) 109.0 ml/min Est GFR (Non-Af Amer) 94.1 ml/min BUN/Creatinine Ratio 15.7 (10-20) Glucose 99 (70-99(Fasting)) mg/dl Calcium 8.4 L (8.6-10.3) mg/dl Total Bilirubin 0.9 (0.2-1.0) mg/dl AST 36 (13-39) U/L ALT 35 (7-52) U/L Alkaline Phosphatase 100 (34-104) U/L Total Protein 6.5 (6.0-8.3) gm/dl Albumin 4.1 (3.4-5.0) gm/dl Globulin 2.4 L (2.5-4.0) gm/dl Albumin/Globulin Ratio 1.7 (0.9-2) Imaging Data Attestation: I personally reviewed and interpreted this imaging study as follows: My Impression: CT of the abdomen and pelvis-I do not see any obstruction or free air. There are stones within the kidney but no obstructive uropathy Radiologist's Impression: Abdomen/Pelvis CT 08/07/23 13:17 CT SCAN OF THE ABDOMEN AND PELVIS WITHOUT IV CONTRAST CLINICAL HISTORY: Vomiting. COMPARISON STUDY: Abdominal CT dated 04/24/2023. TECHNIQUE: CT scan of the abdomen and pelvis is performed from the lung bases to the proximal femora. Images are reviewed in the axial, sagittal, and coronal planes. IV contrast was not administered for this examination. A dose lowering technique was utilized adhering to the principles of ALARA. The examination is degraded by metallic streak artifact from extensive spinal hardware and bilateral hip arthroplasties. CT DOSE: 853.39 mGy.cm FINDINGS: Lung bases: The heart is enlarged and without pericardial effusion. Pacemaker leads are in place. There are coronary artery calcifications. There is diminished attenuation of the cardiac blood pool is compared to myocardium suggesting anemia. There are scattered calcified granulomas. No airspace consolidation or pleural effusion is identified. Liver: The unenhanced liver is normal in size, contour, and attenuation. There is no intrahepatic biliary ductal dilatation. There is evidence of multifocal hepatic metastatic disease. This has progressed as compared to 04/24/2023. At least 5 right lobe lesions are identified and measure up to 4.1 cm. Gallbladder: Surgically absent noting clips in the gallbladder fossa. There is a calcified gallstone within a cystic duct remnant seen on image #85. Spleen: Normal in size and attenuation. Pancreas: The unenhanced pancreas is moderately atrophic and grossly unremarkable. Adrenal glands: Unremarkable. Kidneys: The unenhanced kidneys are normal in size and without hydronephrosis. There are at least 3 nonobstructing right renal calculi which measure up to 6 mm. At least 4 nonobstructing calculi are seen in the left kidney and measure up to 9 mm. No ureteral stone is seen. There is no evidence of contour deforming renal mass lesion. Abdominal vasculature: The abdominal aorta is normal in course and caliber noting mild atherosclerotic calcification. Stomach and bowel: A tiny hiatal hernia is noted. Postoperative change is noted in the stomach. A small bowel anastomosis is seen in the pelvis. There is mild colonic fecal retention. No bowel obstruction is identified. The appendix is not visualized. Peritoneum: There is no intraperitoneal free air or abdominal ascites. There is evidence of previous ventral hernia repair. Lymphadenopathy: None. Pelvic viscera: Evaluation of the pelvis is degraded by streak artifact from bilateral hip arthroplasties. The bladder is normal as visualized. The uterus is surgically absent. No adnexal lesion is seen. Skeletal structures: The skeletal structures are osteopenic. Spondylotic and extensive postsurgical changes noted in the lumbar spine. There are chronic/healed right-sided rib fractures. No lytic or blastic lesions are seen. Bilateral hip arthroplasties are in place IMPRESSION: 1. No acute infectious or inflammatory findings are identified in the abdomen or pelvis. 2. Multifocal hepatic metastatic disease has progressed as compared to 04/24/2023. 3. Cardiomegaly and cardiac pacemaker. 4. There is a large gallstone contained within a dilated cystic duct remnant. 5. Bilateral nephrolithiasis. 6. Additional findings as above. ACT 112: Negative or not required by law. Electronically signed by: Noe Carrillo M.D. 08/07/2023 2:12 PM [facility] Narrative This patient comes in as described above. [place] to help expedite her care. She had blood work and urine. Her urine has blood and does suggest a possible UTI as she does have leukocytes as well on the dip. She tells me she did have vomiting for days and has significant abdominal pain. she was given morphine 2 mg IV and Zofran 4 mg IV. Her white count is normal. She has baseline anemia. She is no significant electrolyte or metabolic abnormality exception of potassium being mildly low at 3.2. CAT scan does not show any obstructive uropathy or any definite acute findings. She has liver metastases which look worse than last year's CAT scan she has a gallstone within the residual ducts. I did talk to her at length she is says she has a lot of pain and she cannot eat or drink and feels very frustrated and does not feel she can go home. I did consult and discussed case with Dr. Daugherty from the [facility] team, to evaluate her for admission/observation. Impression & Plan Abdominal pain, Metastatic breast cancer, Metastases to the liver, Acute dehydration, Nausea & vomiting, Urinary tract infection Discharge Plan Visit Data Chief Complaint: Kidney Stone Stated Complaint: POS KIDEY STONES, REF BY DOC ED Provider: Elvis Bergeron Discharge Problem: Abdominal pain, Metastatic breast cancer, Metastases to the liver, Acute dehydration, Nausea & vomiting, Urinary tract infection Forms Stand Alone Forms: My [facility] Prescriptions Prescriptions: No Action gabapentin 300 mg capsule 300 mg PO TID Qty: 90 5RF pantoprazole [Protonix] 40 mg tablet,delayed release (DR/EC) 40 mg PO QAM Qty: 90 3RF atorvastatin 40 mg tablet 40 mg PO HS Qty: 90 3RF (DME) OneTouch Ultra Test Strip See Rx Instructions .Route Qty: 100 5RF Rx Instructions: Test BS 3x daily cyanocobalamin (vitamin B-12) 1,000 mcg/mL kit 1,000 mcg IM MONTHLY Qty: 1 3RF Rx Instructions: USUALLY AROUND THE 12TH. diltiazem HCl 360 mg capsule,extended release 24 hr 360 mg PO QAM Qty: 90 3RF (DME) lancets [OneTouch Delica Plus Lancet] 33 gauge misc See Rx Instructions .Route Qty: 300 3RF Rx Instructions: use to check bsg 3 times daily albuterol sulfate 90 mcg/actuation HFA aerosol inhaler 2 puff INHALATION Q4 PRN (Reason: Shortness Of Breath Or Wheezing) Qty: 8.5 5RF Eliquis 5 mg tablet 5 mg PO BID Qty: 60 5RF meclizine 25 mg tablet 25 mg PO DAILY PRN diphenoxylate-atropine 2.5-0.025 mg tablet 1 tab PO QID PRN capecitabine [Xeloda] 150 mg tablet 150 mg PO BID Rx Instructions: 1 tablet bid for 14 days, then 1 week break, then resume 1 tablet bid for 14 days insulin glargine [Lantus U-100 Insulin] 100 unit/mL solution 20 unit subcut QPM (DME) pen needle, diabetic [Easy Comfort Pen [place]] 32 gauge x 5/32" needle See Rx Instructions .Route Qty: 100 3RF Rx Instructions: As directed Mounjaro 5 mg/0.5 mL pen injector 5 mg subcut .COMPLEX Qty: 2 3RF Rx Instructions: 5 mg subcutaneously once weekly; tramadol 50 mg tablet 50 mg PO TID PRN (Reason: pain (scale score 7-10)) Qty: 90 0RF levothyroxine 25 mcg tablet 37.5 mcg PO QAM Qty: 135 3RF hydroxyzine HCl 10 mg tablet 10 mg PO .QHS Qty: 30 3RF Rx Instructions: Take one tablet at night losartan 25 mg tablet 25 mg PO DAILY Qty: 90 3RF Trintellix 20 mg tablet 20 mg PO QAM Referrals Referrals: Quinn Lovett MD [Primary Care Provider] - Discharge Problem: Abdominal pain Qualifiers: Abdominal location: lower abdomen, unspecified Qualified Code(s): R10.30 - Lower abdominal pain, unspecified Nausea & vomiting Qualifiers: Vomiting type: unspecified Qualified Code(s): R11.2 - Nausea with vomiting, unspecified Urinary tract infection Qualifiers: Urinary tract infection type: acute cystitis Hematuria presence: with hematuria Qualified Code(s): N30.01 - Acute cystitis with hematuria
[2023-08-07 13:44] LABS: Alanine Aminotransferase 35 U/L (7-52); Albumin Globulin Ratio 1.7 (0.9-2); Albumin Level 4.1 gm/dl (3.4-5.0); Alkaline Phosphatase 100 U/L (34-104); Anion Gap 9 (3-11); Aspartate Aminotransferase 36 U/L (13-39); BUN Creatinine Ratio 15.7 (10-20); Bilirubin,Total 0.9 mg/dl (0.2-1.0); Blood Urea Nitrogen 8 mg/dl (6-23); Calcium 8.4 mg/dl (8.6-10.3); Carbon Dioxide 24 mmol/L (21-32); Chloride 106 mmol/L (98-107); Est GFR (Non-African American) 94.1 ml/min; Globulin 2.4 gm/dl (2.5-4.0); Glucose 99 mg/dl (70-99(Fasting)); Potassium 3.2 mmol/L (3.5-5.1); Sodium 139 mmol/L (136-145); Total Protein 6.5 gm/dl (6.0-8.3)
--- NOTE | 2023-08-07 14:13 | CT Scan Report ---
CT SCAN OF THE ABDOMEN AND PELVIS WITHOUT IV CONTRAST CLINICAL HISTORY: Vomiting. COMPARISON STUDY: Abdominal CT dated 04/24/2023. TECHNIQUE: CT scan of the abdomen and pelvis is performed from the lung bases to the proximal femora. Images are reviewed in the axial, sagittal, and coronal planes. IV contrast was not administered for this examination. A dose lowering technique was utilized adhering to the principles of ALARA. The ex amination is degraded by metallic streak artifact from extensive spinal hardware and bilateral hip ar throplasties. CT DOSE: 853.39 mGy.cm FINDINGS: Lung bases: The heart is enlarged and without pericardial effusion. Pacemaker leads are in place. The re are coronary artery calcifications. There is diminished attenuation of the cardiac blood pool is c ompared to myocardium suggesting anemia. There are scattered calcified granulomas. No airspace consol idation or pleural effusion is identified. Liver: The unenhanced liver is normal in size, contour, and attenuation. There is no intrahepatic lindsay iary ductal dilatation. There is evidence of multifocal hepatic metastatic disease. This has progress ed as compared to 04/24/2023. At least 5 right lobe lesions are identified and measure up to 4.1 cm. Gallbladder: Surgically absent noting clips in the gallbladder fossa. There is a calcified gallstone within a cystic duct remnant seen on image #85. Spleen: Normal in size and attenuation. Pancreas: The unenhanced pancreas is moderately atrophic and grossly unremarkable. Adrenal glands: Unremarkable. Kidneys: The unenhanced kidneys are normal in size and without hydronephrosis. There are at least 3 n onobstructing right renal calculi which measure up to 6 mm. At least 4 nonobstructing calculi are see n in the left kidney and measure up to 9 mm. No ureteral stone is seen. There is no evidence of conto ur deforming renal mass lesion. Abdominal vasculature: The abdominal aorta is normal in course and caliber noting mild atheroscleroti c calcification. Stomach and bowel: A tiny hiatal hernia is noted. Postoperative change is noted in the stomach. A sma ll bowel anastomosis is seen in the pelvis. There is mild colonic fecal retention. No bowel obstructi on is identified. The appendix is not visualized. Peritoneum: There is no intraperitoneal free air or abdominal ascites. There is evidence of previous ventral hernia repair. Lymphadenopathy: None. Pelvic viscera: Evaluation of the pelvis is degraded by streak artifact from bilateral hip arthroplas ties. The bladder is normal as visualized. The uterus is surgically absent. No adnexal lesion is seen . Skeletal structures: The skeletal structures are osteopenic. Spondylotic and extensive postsurgical c hanges noted in the lumbar spine. There are chronic/healed right-sided rib fractures. No lytic or shari stic lesions are seen. Bilateral hip arthroplasties are in place IMPRESSION: 1. No acute infectious or inflammatory findings are identified in the abdomen or pelvis. 2. Multifocal hepatic metastatic disease has progressed as compared to 04/24/2023. 3. Cardiomegaly and cardiac pacemaker. 4. There is a large gallstone contained within a dilated cystic duct remnant. 5. Bilateral nephrolithiasis. 6. Additional findings as above. ACT 112: Negative or not required by law. Electronically signed by: Noe Carrillo M.D. 08/07/2023 2:12 PM
[2023-08-07] MEDS: MoRPHine SULFATE 2 MG/ML CARP IV STA ×2 (14:39→23:52)
[2023-08-07] MEDS: ONDANSETRON INJ 2 MG/ML 2 ML VIAL IV STA (14:40)
[2023-08-07] MEDS: SODIUM CHLORIDE 0.9% 500 ML IV ONE (14:40)
[2023-08-07 16:05] LABS: Appearance Urine Clear (Clear); Bacteria Urine Automated Negative (Negative); Bilirubin Urine Negative (Negative); Blood Urine 3+ (Negative); Color Urine Dark Yellow; Epithelial Cell Urine Auto >30 /lpf (0-5); Glucose Urine UA Negative (Negative); Ketones Urine 1+ (Negative); Leukocyte Esterase Urine 1+ (Negative); Nitrite Urine Negative (Negative); Protein Urine Trace (Negative); RBC Urine Automated >30 /hpf (0-4); Specific Gravity Urine 1.013 (1.000-1.030); Urobilinogen Urine Negative (Negative); WBC Urine Automated >30 /hpf (0-5); pH Urine 6.5 (4.5-7.5)
[2023-08-07] MEDS ORDERED: GLUCAGON FOR INJ 1 MG VIAL SQ PRN (16:30)
[2023-08-07] MEDS ORDERED: GLUCOSE 40% GEL 15 GM TUBE PO PRN (16:30)
[2023-08-07] MEDS ORDERED: DEXTROSE 50% 50 ML SYRINGE IV PRN (16:30)
[2023-08-07] MEDS ORDERED: GLUCOSE 10 TAB/TUBE PO PRN (16:30)
[2023-08-07] MEDS ORDERED: CARBOHYDRATES FOR HYPOGLYCEMIA PO PRN (16:30)
[2023-08-07 16:40] LABS: Renal Epithelial Cells Urine 0-5 /lpf (0-5)
--- NOTE | 2023-08-07 16:44 | History & Physical Report ---
Date of Service August 07, 2023 Assessment & Plan (1) Nausea & vomiting: Plan: Assessment: 1. Refractory nausea and vomiting. Unknown etiology at this time however I do feel this could be at least in part adverse drug reaction to the medication Mounjaro we did recommend we discontinue this. I did consult gastroenterology for evaluation and possible consideration of EGD given her history of stage IV metastatic breast carcinoma. They will see the patient on consultation will keep the patient n.p.o. after midnight. 2. Rule out urinary tract infection UA is still pending at the time of this is dictation. 3. Diabetes mellitus insulin requiring sliding scales been ordered as has basal insulins. 4. Paroxysmal atrial fibrillation on chronic Eliquis therapy this will be continued at this time. 5. Stage IV metastatic breast carcinoma with mets to the liver. Follows with oncology. 6. Recurrent urinary tract infections she has seen urogynecology she has seen infectious disease. UA is pending. Should continue to follow with specialist as outpatient. 9. Anemia of chronic disease due to chemotherapy treatments. Stable. 10. Osteoarthritis 11. Dyslipidemia. Continue home treatment. 12. Hypothyroidism continue home treatment. 13. History of gastric bariatric surgery bypass surgery. Plan: As discussed above. Please refer to orders for further planning. History of Present Illness Chief Complaint: Abdominal cramping nausea vomiting. History of recurrent UTIs. Primary Care Provider: Quinn Lovett MD This is a 73-year-old female who has a 3 to 4-week history of nausea vomiting abdominal cramping has been worse over the last couple weeks. She has had recurrent UTIs. She is has seen infectious disease she has had multiple doses of oral antibiotics including ciprofloxacin, fosfomycin, Bactrim, Macrobid, excetra. She presents to the ER today wanting to know what her abdominal discomfort is from and her cramping and her nausea vomiting. She had a CT of the abdomen pelvis which showed nonobstructive bilateral kidney stones that shows liver metastatic disease which she is aware of and under active treatment with oncology. Primary malignancy is breast cancer. Her other laboratory studies were unremarkable. However when we were called to admit the patient her urinalysis was and still was pending at the time of this dictation. She received morphine in the ER 2 mg and IV Zofran. And a liter of fluid. We are called to admit the patient for refractory nausea and vomiting and abdominal cramping. We are admitting her observation. We have consulted gastroenterology to consider possible EGD. On further history taking on admission this patient started Mounjaro several weeks ago. Her symptoms have become less worse since then and I do feel this is probably the culprit. Allergies Allergy/AdvReac Type Severity Reaction Status Date / Time metformin AdvReac Intermediate RESTLESSNES Verified 08/07/23 15:38 S Home Medications Medication Instructions Recorded Confirmed Type gabapentin 300 mg capsule 300 mg PO TID #90 caps 09/27/22 08/07/23 Rx pantoprazole 40 mg tablet,delayed 40 mg PO QAM #90 tabs 09/27/22 08/07/23 Rx release (Protonix) atorvastatin 40 mg tablet 40 mg PO HS #90 tabs 10/07/22 08/07/23 Rx blood sugar diagnostic (OneTouch #100 ea 10/07/22 07/24/23 Rx Ultra Test strips) cyanocobalamin (vitamin B-12) 1,000 mcg IM MONTHLY #1 ea 10/07/22 08/07/23 Rx 1,000 mcg/mL injection kit diltiazem HCl 360 mg capsule,24 360 mg PO QAM #90 caps 10/08/22 08/07/23 Rx hr,extended release vortioxetine 20 mg tablet 20 mg PO QAM 11/22/22 08/07/23 History (Trintellix) OneTouch Delica Plus Lancet 33 #300 ea 01/09/23 07/24/23 Rx gauge (lancets) albuterol sulfate 90 mcg/actuation 2 puff inhalation Q4 PRN Shortness 02/24/23 08/07/23 Rx aerosol inhaler Of Breath Or Wheezing #8.5 grams apixaban 5 mg tablet (Eliquis) 5 mg PO BID #60 tabs 02/24/23 08/07/23 Rx capecitabine 150 mg tablet (Xeloda) 150 mg PO BID 02/28/23 08/07/23 History diphenoxylate-atropine 2.5 1 tab PO QID PRN Diarrhea 02/28/23 08/07/23 History mg-0.025 mg tablet insulin glargine 100 unit/mL 20 unit subcut QPM 02/28/23 08/07/23 History subcutaneous solution (Lantus U-100 Insulin) meclizine 25 mg tablet 25 mg PO DAILY PRN 02/28/23 08/07/23 History DIZZINESS/VERTIGO losartan 25 mg tablet 25 mg PO DAILY #90 tabs 05/09/23 08/07/23 Rx pen needle, diabetic 32 gauge x #100 ea 06/12/23 07/24/23 Rx 5/32" (Easy Comfort Pen [place]) tramadol 50 mg tablet 50 mg PO TID PRN pain (scale score 07/29/23 08/07/23 Rx 7-10) #90 tabs levothyroxine 25 mcg tablet 37.5 mcg (1.5 x 25 mcg) PO QAM 07/30/23 08/07/23 Rx #135 tabs hydroxyzine HCl 10 mg tablet 10 mg PO HS 08/07/23 08/07/23 History tirzepatide 5 mg/0.5 mL 5 mg subcut WK 08/07/23 08/07/23 History subcutaneous pen injector (James) Past Med/Surg History Medical History Breast skin changes Human metapneumovirus pneumonia Infected venous access port 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 History of blood transfusion Closed fracture of left distal fibula Breast cancer (12/18/15) "Abnormal left breast mammogram Status post core needle biopsy 12/18/2015 revealing infiltrating ductal carcinoma Estrogen receptor positive, progesterone receptor positive, HER-2/po negative Status post left needle localization lumpectomy and sentinel lymph node biopsy 01/04/2016 Stage pT1c pN0M0 Status post completion of radiation therapy 02/13/2016 received 3850 cGy utilizing accelerated partial breast irradiation." On 01/17/16 14:10 Deidre Orta wrote "Abnormal left breast mammogram Status post core needle biopsy 12/18/2015 revealing infiltrating ductal carcinoma Estrogen receptor positive, progesterone receptor positive, HER-2/po negative Status post left needle localization lumpectomy and sentinel lymph node biopsy 01/04/2016 Stage pT1c pN0M0" Generalized weakness Lung nodules monitoring Urinary frequency Pacemaker 2019, follows with Dr Ramires. checks Q6 months. Neuropathy Anxiety Aortic stenosis Mild aortic stenosis (MERLENE 1.6cm2; MG 7.8mmHg) per 12/2019 echo Diabetes mellitus, type 2 IDDM Degenerative disc disease Hx of cardiac pacemaker Implanted 2019 (tachy-monica syndrome), [employer] device Follows with Dr. Ramires Liver mass Pt denies but 05/17/20 PET scan shows 2.5 right hepatic lobe mass consistent with known hepatic metastasis Anemia h/o blood transfusions Infiltrating ductal carcinoma of left breast Initial Dx 2015- s/p lumpectomy, XRT and anastrozole Metastatic breast cancer 03/2020, follows [facility] Atrial fibrillation follows with Dr Ramires Hypothyroidism Peripheral neuropathy Hands (B/L CTS) Obstructive sleep apnea "Resolved" s/p gastric bypass (? retested) Hypercholesterolemia Gastroesophageal reflux disease controlled, stable per pt Depression Chronic pain Cervical spine disease Full ROM per pt Surgical History H/O breast biopsy (05/29/23) Skin, left breast, 2 punch biopsies: In office procedure Dr. Alvarez - Fibrosing dermatitis. - See comment Status post revision of total replacement of right knee History of removal of Port-a-Cath (01/11/22) Infected port right anterior chest removed Dr. Shah S/P cardiac pacemaker procedure 2019 History of surgery Right knee TKA revision with spacer (07/11/2021): SAB at L3-4 (x2 attempts) + PNB at [facility]. No issues noted per post-op anesthesia progress note. History of carpal tunnel surgery of left wrist 06/2021 History of carpal tunnel surgery of right wrist Port-A-Cath in place hx - 05/2020 since removed d/t infection at port 12/2021 History of colonoscopy History of evacuation of hematoma Hematoma right breast and right chest 08/31/13 Dr. Shah H/O bilateral hip replacements Status post repair of ventral hernia History of total knee arthroplasty R/L Status post total abdominal hysterectomy and bilateral salpingo-oophorectomy Status post lumbar spine surgery for decompression of spinal cord Status post partial mastectomy of left breast Status post panniculectomy History of section x1 Status post laparoscopic cholecystectomy Status post gastric bypass for obesity Status post arthroscopy of left shoulder Status post appendectomy Family History Unknown Breast cancer Emphysema lung Mother Diabetes Heart disease Father Heart disease Other No family history of adverse response to anesthesia Denies family history of Ovarian cancer Prostate cancer Coronary heart disease Colorectal cancer Social History Smoking Status: Former smoker Tobacco Type: Cigarettes packs per day: 2; Second Hand Exposure: Yes (hx); Do You Dip or Chew Tobacco: No; Hx Alcohol Use: Yes Alcohol type: beer and wine Hx Substance Use: No Preferred Language: Occitan Communication Ability: Effective Visual Impairment: No Limitations Hearing Ability: Normal Health Concierge Required: No Beliefs That Will Affect Care: None marital status: Current Living Situation: Spouse current occupational status: retired Feels Safe at Home: Yes Childhood Exposure to Second-Hand Smoke: Yes Diet: diabetic caffeine: Yes Dental Care, Regularly: No Physical Activity Frequency: 1-2 Times per Week Seatbelt Use: always Sunscreen Use: No Assistive Devices: Walker Review of Systems Review of Systems: A 10 point review of system was obtained and unless otherwise stated here or in history of present illness are negative and noncontributory to chief complaint. Physical Exam Physical Exam: In General: In general this is a 73-year-old female she is quite frustrated. She is quite verbal about her frustration to the point of being even somewhat irritable -she is very frustrated about not being able to eat due to her nausea and vomiting. We did discuss with her that she is only been under our care for 20 minutes to half hour and that we will do our best to try to treat her medically from an appropriate standpoint and get to the root of her problem. We did tell her that we will have gastroenterology see her to consider an EGD. I did return to the room after her med reconciliation was done and inquired about Mounjaro as documented in HPI. I do feel that this very well could be the culprit. I recommend she not take that any longer and speak with her primary care provider for an alternative treatment for her diabetes mellitus. HEENT: Normocephalic atraumatic pupils are equal round and reactive to light bilaterally. No scleral icterus no conjunctival injection external auditory canals are patent septum is in the midline nose is without discharge oral mucosa is pink and moist without lesion. NECK: Supple no rigidity no lymphadenopathy no thyromegaly no carotid bruits no JVD no masses. HEART: Regular rate and rhythm I do not appreciate any ectopy or rub. No murmur. LUNGS: Clear to auscultation bilaterally and anteriorly with no evidence of adventitious sounds/wheezes rales or rhonchi. ABDOMEN: Soft mild tenderness diffusely, no rebound, no peritoneal signs, positive bowel sounds, no appreciable organomegaly. EXTREMITIES: Intact, no peripheral cyanosis, clubbing or edema. Strength is 5 out of 5 in extremities x4, no pathological reflexes. NEUROLOGICAL: Cranial nerves II through XII are grossly intact with no focal deficit elicited upon examination. No tremor. Results & Data Results & Data Vital Signs (Past 12 Hours) Vital Signs Temp Pulse Resp BP Pulse Ox O2 Del Method 08/07/23 12:20 36.2 C L 71 20 124/71 98 Room Air Code Status & VTE Plan Code Status Full code. I did personally discussed with patient who is accompanied by her and daughter at the time of my exam VTE Prophylaxis Plan VTE Prophylaxis will be ordered: No Reason for no VTE drug order: Contraindicated PG Care Time/CCT Total # of Minutes Spent Total Time Spent with Patient: Total time spent is greater than 50% in coordination of care (as documented) at patient's floor/unit and/or counseling patient: Coding Level of Care Code 06568 INT INP/OBS CARE 3/75MIN Diagnoses Nausea & vomiting R11.2 Vomiting type: unspecified (1) Nausea & vomiting Vomiting type: unspecified Qualified Code(s): R11.2 - Nausea with vomiting, unspecified
[2023-08-07] MEDS ORDERED: DIPHENOXYLATE/ATROPINE 2.5/0.025MG TAB PO PRN (17:35)
[2023-08-07] MEDS ORDERED: ALBUTEROL HFA 8 GM INHALER INH PRN (17:35)
[2023-08-07] MEDS: Patient's HEIGHT &/or WEIGHT Needed SCH (18:11)
[2023-08-07] MEDS: INSULIN ASPART PER UNIT CHARGE SC SCH (18:33)
[2023-08-07] MEDS: APIXABAN 5 MG TABLET PO SCH (21:10)
[2023-08-07] MEDS: GABAPENTIN 300 MG CAP PO SCH (21:11)
[2023-08-07] MEDS: hydrOXYzine HCl 10 MG TAB PO SCH (21:11)
[2023-08-07] MEDS: ATORVASTATIN 40 MG TAB PO SCH (21:12)
[2023-08-07] MEDS: LANTUS PER UNIT CHARGE SQ SCH (21:22)
[2023-08-07] MEDS: ACETAMINOPHEN 325 MG TAB PO PRN (21:22)
[2023-08-07] MEDS: MELATONIN 3 MG TAB PO PRN (23:53)
--- OUTSIDE RECORDS SUMMARY | 2023-08-08 05:14 | External Medical Summary | Summary of Care ---
Author Name Unknown Organization [facility] Address [address] [place] [address] Phone [phone] Care Team Providers Care Loans Consultant Name Role Phone Quinn Lovett MD Primary Care Provi huy Reason for Visit * Reason Onset Date Comments Advice 07/23/2023 Pt's daughter Jaimie choudhary calling to see if Dr Zacarias can call her Mom Faith,pt may have a UTI and did take the medication, however, she has noticed when she urinates there is a hint of blood while she wipes , which this had just started this morning and she still has a lot of pain and discomfort. Pt is asking for a return phone call , please call [phone] Thank-you! Encounter Details Date Type Department Care Team (Late st Contact Info) Description 07/23/2023 Telephone Infectious Disease, [facility] [address] [place] [address] Moy Zacarias MD [address] [place] [address] Advice (Pt's daughter Lulu calling to see... Allergies Active Allergy Reactions Criticality Noted Date Comments Metformin 11/07/2020 insomnia documented as of this encounter (statuses as of 07/29/2023) Medications Medication Sig Dispensed Refills Start Date End Date Status MULTIVITAMINS PO CAPS Take 1 Capsule by mouth in the morning. 0 Active Cholecalciferol (VITAMIN D) 25 MCG (1000 UT) TABS 1 Tablet in the morning. 0 Active Calcium Carbonate 600 MG Oral Tablet (Calcium 600) Take 1 Tablet by mouth in the morning. 0 Active Acetaminophen 500 MG Oral Tablet (Tylenol) Take 2 Tablets by mouth every 6 hours as needed. 100 Tablet 0 2 Active Meclizine HCl 25 MG Oral Tablet (Antivert) Take 1 Tablet by mouth every 6 hours as needed for Dizziness. 30 Tablet 1 2 Active Atorvastatin Calcium 40 MG Oral Tablet (Lipitor) Take by mouth 1 Tablet before bedtime. 30 Tablet 0 2 Active DULoxetine HCl 60 MG Oral Capsule Delayed Release Particles (Cymbalta)Indicatio ns:Depression with anxiety Take by mouth 1 Capsule in the morning. Take with 30 mg for total daily dose of 90 mg.. 30 Capsule 0 2 Active Pantoprazole Sodium 40 MG Oral Tablet Delayed Release (Protonix) Take by mouth 1 Tablet in the morning. 30 Tablet 0 2 Active Apixaban 5 MG Oral Tablet (Eliquis)Indication s:Paroxysmal atrial fibrillation (HCC) Take by mouth 1 Tablet in the morning AND 1 Tablet before bedtime. 60 Tablet 0 2 Active Levothyroxine Sodium 75 MCG Oral Tablet (Levoxyl)Indication s:Acquired hypothyroidism Take by mouth 0.5 Tablets in the morning. 15 Tablet 0 2 Active Basaglar KwikPen 100 UNIT/ML Subcutaneous Solution Pen-injector (Insulin Glargine)Indication s:Type 2 diabetes mellitus with hemoglobin A1c goal of less than 7.0% (HCC) Inject under the skin 31 Units before bedtime. 5 Each 0 2 Active Additional Information Patient taking differently: 15 UnitsSubcutaneous QPM-1999, Reported on 11/25/2022 Metoprolol Tartrate 25 MG Oral Tablet (Lopressor)Indicati ons:Paroxysmal atrial fibrillation (HCC),HTN, goal below 140/80 Take by mouth 1 Tablet in the morning AND 1 Tablet before bedtime. 60 Tablet 0 2 Active Trulicity 3 MG/0.5ML Subcutaneous Solution Pen-injector (Dulaglutide)Indica tions:Type 2 diabetes mellitus with hemoglobin A1c goal of less than 7.0% (HCC) Inject under the skin 3 mg once a week . 2 mL 0 2 Active traMADol HCl 50 MG Oral Tablet (Ultram) Take 1 Tablet by mouth every 6 hours as needed. 0 Active OneTouch Ultra In Vitro Strip (Glucose Blood) Test as directed. 0 Ac tive Capecitabine 150 MG Oral Tablet (Xeloda) Take 2 Tablets by mouth in the morning and 2 Tablets before bedtime. 14 days on, 7 days off. 0 Active dilTIAZem HCl ER Beads 300 MG Oral Capsule Extended Release 24 Hour Take 1 Capsule by mouth in the morning. 0 Active Diphenoxylate-Atrop ine 2.5-0.025 MG Oral Tablet (Lomotil) Take 1 Tablet by mouth 4 times a day as needed for Diarrhea. 0 Active hydrOXYzine HCl 10 MG Oral Tablet (Atarax) Take 1 Tablet by mouth 3 times a day as needed. 0 Active OneTouch Delica Plus [id number] Use as directed. 0 Acti ve Cranberry 500 MG Oral Tablet Take by mouth. 0 Active Cranberry-Vitamin C-D Mannose 250-30-50 MG Oral Tablet Chewable Take by mouth. 0 Activ e Estradiol 0.1 MG/GM Vaginal Cream (Estrace)Indication s:Atrophic vaginitis Administer 0.5g into the vaginal twice weekly at bedtime as directed. 42.5 g 3 4 Active Denosumab 60 MG/ML Subcutaneous Solution Prefilled Syringe (Prolia) Inject 60 mg under the skin every 6 months. 0 Active Nitrofurantoin Monohyd Macro 100 MG Oral Capsule (Macrobid) Take 1 Capsule by mouth in the morning and 1 Capsule before bedtime. Do all this for 14 days. 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 Follow-up examination, following other surgery 0 10/03/2010 Incisional hernia 09/18/2010 TRUNK PANNICULITIS 10/05/2009 Severe obesity with body mas s index (BMI) of 35.0 to 39.9 with serious comorbidity 08/14/2009 Overview: Per Obesity Taxonomy ICD-10 update of inactive diagnosis DYSLIPIDEMIA, GOAL LDL BELOW 100 05/04/2009 Overview: Per Lipid Taxonomy. Type 2 diabetes mellitus wit h hemoglobin A1c goal of less than 7.0% 03/02/2009 Overview: Modified per Diabetes protocol #14. ICD-10 update of inactive term Hypothyroidism 02/01/2008 Primary localized osteoarthrosis, lower leg 01/17 ADVANCE DIRECTIVE INFORMATION 12/24/2006 Overview: No, Advance Directive brochure offered , patient declined. 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 Morbid obesity, BMI not known 02/01/2008 08/14/2009 Overview: Per Obesity Taxonomy DM type 2, not at goal 02/01/200803/02 Overview: Modified per Diabetes protocol #14. HTN, goal to be determined 02/01/2008 1 06/11/2008 Overview: Modified per HTN protocol #16. Mixed dyslipidemia 02/01/2008 9 Overview: Per Lipid Taxonomy. documented as of this encounter (statuses as of 07/29/2023) Immunizations Name Administration Dates Next Due COVID-19 mRNA, LNP-s, No Pre serve, 2-Dose Series (Moderna) 06/08/2021,08/02/2020 documented as of this encounter Social History Tobacco Use Types Packs/Day Years Used Date Smoking Tobacco: Former Cigarettes 0.3 35 0 11/07/1976 - 11/08/2011 Smokeless Tobacco: Never Alcohol Use Standard Drinks/Week Comments Not Currently 0 (1 standard drink = 0.6 oz pur e alcohol) once or twice a year Sex and Gender Information Value Date Recorded Sex Assigned at Not on file Gender Identity Not on file Sexual Orientation Not on file Job Start Date Occupation Industry Not on file Not on file Not on file documented as of this encounter Miscellaneous Notes * Telephone Encounter - Radha Cervantes OSA - 07/29/2023 10:40 AM EDT Pt's daughter calling about mothers ultrasound results. Can someone please call them back? * Telephone Encounter - Moy Zacarias MD - 07/23/2023 3:26 PM EST I called Ms. Solorzano and she told me that she has been having blood in urine for almost a week now. Iprescribed her a 7-day course of cipro which she completed on 07/20/2033, but without any improvementin the symptoms. She particularly reported dysuria, hernandez hematuria and blood on toilet paper even after cleaning. No reported flank pain and no fever or chills. Her UA from 07/16/2023 showed gross hematuria, pyuria, bacteruria and a lot calcium oxalate crystals. At this point, I am more concerned about nephrolithiasis rather than UTI. Therefore, I will order US kidneys and bladder and start on Macrobid for suppression. * Telephone Encounter - Leighann Guadalupe OSA - 07/23/2023 12:14 PM EST Pt's daughter Lulu calling to see if Dr Zacarias can call her Mom Faith,pt may have a UTI and did take the medication, however, she has noticed when she urinates there is a hint of blood while she wipes , which this had just started this morning and she still has a lot of pain and discomfort. Pt is asking for a return phone call , please call [phone] Thank-you! Leighann documented in this encounter Plan of Treatment Upcoming Encounters Date Type Department Care Team (Late st Contact Info) Description 09/22/2023 7:50 AM EDT Office Visit Ophthalmology, [facility] [address] [facility] [place] [address] Jose Israel, DO [address] [place], [place] [id number] Scheduled Orders Name Type Priority Associated Diagnoses Orde r Schedule POST VOID RESIDUAL BLADDER US (PHYSICIAN ONLY) Procedures Routine Hematuria, gross Ordered: 07/23/2023 Health Maintenance Due Date Last Done Comments DXA Scan 1950 Depression Screening 1960 Albumin/Creatinine Ratio 01/25/1966 Diabetic Foot Exam 01/25/1966 Hepatitis C Screening 01/25/1966 DTaP,Tdap,and Td Vaccines (1 - Tdap) 01/25/1967 HbA1c 12/08/2008 06/10/2008, 02/21/2006 TSH 06/10/2009 06/10/2008, 02/20/2006 Zoster Vaccines (2 of 2) 09/24/2017 07/30/2017, 07/17 GFR 10/12/2022 10/12/2021, 07/0 11/2020, 11/10/2020, Additional history exists COVID-19 Vaccine ( - 2022- season) 2023 05/24/2022, 06/08/2021, 08/04/2020, Additional history exists Influenza Vaccine (FLU shot) (#1) 2023 03/08/2019, 06/16/2014 Diabetic Eye Exam 04/14/2024 04/14/2023, , 02/09/2019, Additional history exists Pneumococcal Vaccine: 65+ Years Completed 07/30/2019, 09/21/2015, 06/16/2014 GARDASIL-HPV IMMUNIZATION SERIES Aged Out No longer eligible based on patient's age to complete this topic Hepatitis B Aged Out No longer eligi ble based on patient's age to complete this topic MENINGOCOCCAL (MENACTRA/MENVEO) Aged Out No longer eligible based on patient's age to complete this topic documented as of this encounter Medical Devices Implanted Type Area Gravity Manager Device Identifier Shelf Expiration Date Model / Serial / Lot Mesh Hernia Synt [id number] - [id number] [place]planted:Q[place] 1 [place] [facility] [place] [employer] [facility] [employer] [facility] 03/19/2013 [id number] / / [id number] Description:kyle crawford documented as of this encounter Results * US RENAL (07/24/2023 1:38 PM EST) Anatomical Region Laterality Modality Abdomen, Body Ultrasound 07/25/2023 2:38 PM EST Impressions 07/25/2023 2:36 PM EST IMPRESSION: Probable bilateral nephrolithiasis. Narrative 07/25/2023 2:36 PM EST EXAM: US RENAL HISTORY: hematuria TECHNIQUE: Real-time scanning performed of kidneys, visualized regional abdominal aorta and urinary bladder. COMPARISON: Ultrasound abdomen dated 06/10/2008 FINDINGS: Kidneys: Renal size length: Right-9.5 cm and left-10.5 cm Each renal contour is lobulated. A discrete focal lesion is not identified. Bilaterally cortex maintained in regard to its thickness/echotexture. No hydronephrosis. Within each kidney are multiple echogenic foci. Although, some may reflect a vascular etiology they are primarily suspect for intrarenal calculi. Largest right kidney is in lower aspect measuring approximally 9 mm greatest diameter and largest in left kidney is also in lower aspect measuring approximally 10 mm greatest diameter. No demonstrable perinephric abnormality. Visualized regional abdominal aorta: Unfortunately, area of abdominal aorta completely obscured by overlying bowel. Urinary bladder: Unfortunately, poorly distended limiting evaluation. No gross intraluminal lesion. Procedure Note Kt Faith MD - 07/25/2023 EXAM: US RENAL HISTORY: hematuria TECHNIQUE: Real-time scanning performed of kidneys, visualized regional abdominalaorta and urinary bladder. COMPARISON: Ultrasound abdomen dated 06/10/2008 FINDINGS: Kidneys: Renal size length: Right-9.5 cm and left-10.5 cm Each renal contour is lobulated. A discrete focal lesion is notidentified. Bilaterally cortex maintained in regard to itsthickness/echotexture. No hydronephrosis. Within each kidney are multiple echogenic foci. Although, some mayreflect a vascular etiology they are primarily suspect for intrarenalcalculi. Largest right kidney is in lower aspect measuring approximally 9mm greatest diameter and largest in left kidney is also in lower aspectmeasuring approximally 10 mm greatest diameter. No demonstrable perinephric abnormality. Visualized regional abdominal aorta: Unfortunately, area of abdominalaorta completely obscured by overlying bowel. Urinary bladder: Unfortunately, poorly distended limiting evaluation. Nogross intraluminal lesion. IMPRESSION IMPRESSION: Probable bilateral nephrolithiasis. Moy Zacarias MD RAD ULTRASOUND documented in this encounter Visit Diagnoses Diagnosis Hematuria, gross- Primary Gross hematuria Hematuria, gross Gross hematuria documented in this encounter Additional Health Concerns Infection Onset Date Last Indicated Resolved Time ESBL 04/22/2023 06/16/2023 documented as of this encounter Advance Directives Latest Code Status on File Code Status Date Activated Date Inactivated Comments Full Code 03/24/2020 11:23 AM 03/24/2020 5:12 PM This order reflects the patients wishes and were consensually agreed upon. Code Status History Code Status Date Activated Date Inactivated Comments Full Code 10/01/2010 9:20 AM 10/03/2010 10:01 PM Question Answer Comments Discussion of Advance Directives occurred with: Not Discussed Full Code 10/01/2010 6:05 AM 10/01/2010 9:20 AM This order reflects the patients wishes and were consensually agreed upon. Full Code 09/26/2008 3:10 PM 09/28/2008 4:20 PM Full Code 09/26/2008 9:44 AM 09/26/2008 3:10 PM Care Teams Loans Consultant Relationship Specialty Start Date End Date Quinn Lovett MD [address] [place] [address] [place] [id number] PCP - General Internal Medicine 01/06/17 documented as of this encounter
--- OUTSIDE RECORDS SUMMARY | 2023-08-08 05:14 | External Medical Summary | Summary of Care ---
Author Name Unknown Organization [facility] Address [address] [place] [address] Phone [phone] Care Team Providers Care Grant Officer Name Role Phone Quinn Lovett MD Primary Care Provi huy Reason for Visit * Reason Comments New Consultation * Evaluate & Treat - Unlimited Visits (Within 10 days (routine)) - Authorized Specialty Diagnoses / Procedures Referred By Contalvaro t Referred To Contact Infectious Diseases / Infectious Disease Diagnoses History of recurrent UTI (urinary tract infection) Khloe Mckeon PA-C [address] [place] [address] Referral ID Status Reason Start Date Expiration Date Visits Requested Visits Authorized [id number] Authorized Specialty Services Required 06/16/2023 12/18/[phone] Encounter Details Date Type Department Care Team (Late st Contact Info) Description 07/10/2023 10:10 AM EST [facility] [address] [place], [place] [id number] Dexter Amin MD [address] [place], [place] [id number] Recurrent UTI* Allergies Active Allergy Reactions Criticality Noted Date Comments Metformin 11/07/2020 insomnia documented as of this encounter (statuses as of 08/04/2023) Medications Medication Sig Dispensed Refills Start Date [...] 6 hours as needed. 100 Tablet 0 10/12/19 22 Active Meclizine HCl 25 MG Oral Tablet (Antivert) Take 1 Tablet by mouth every 6 hours as needed for Dizziness. 30 Tablet 1 10/12/19 22 Active Atorvastatin Calcium 40 MG Oral Tablet (Lipitor) Take by mouth 1 Tablet before bedtime. 30 Tablet 0 10/20/19 22 Active DULoxetine HCl 60 MG Oral Capsule Delayed Release Particles (Cymbalta)Indicati ons:Depression with anxiety Take by mouth 1 Capsule in the morning. Take with 30 mg for total daily dose of 90 mg.. 30 Capsule 0 10/20/19 22 Active Pantoprazole Sodium 40 MG Oral Tablet Delayed Release (Protonix) Take by mouth 1 Tablet in the morning. 30 Tablet 0 10/20/19 22 Active Apixaban 5 MG Oral Tablet (Eliquis)Indicatio ns:Paroxysmal atrial fibrillation (HCC) Take by mouth 1 Tablet in the morning AND 1 Tablet before bedtime. 60 Tablet 0 10/20/19 22 Active Levothyroxine Sodium 75 MCG Oral Tablet (Levoxyl)Indicatio ns:Acquired hypothyroidism Take by mouth 0.5 Tablets in the morning. 15 Tablet 0 10/20/19 22 Active Basaglar KwikPen 100 UNIT/ML Subcutaneous Solution Pen-injector (Insulin Glargine)Indicatio ns:Type 2 diabetes mellitus with hemoglobin A1c goal of less than 7.0% (HCC) Inject under the skin 31 Units before bedtime. 5 Each 0 10/20/19 22 Active Additional Information Patient taking differently: 15 UnitsSubcutaneous QPM-1999, Reported on 11/25/2022 Metoprolol Tartrate 25 MG Oral Tablet (Lopressor)Indicat ions:Paroxysmal atrial fibrillation (HCC),HTN, goal below 140/80 Take by mouth 1 Tablet in the morning AND 1 Tablet before bedtime. 60 Tablet 0 10/20/19 22 Active Trulicity 3 MG/0.5ML Subcutaneous Solution Pen-injector (Dulaglutide)Indic ations:Type 2 diabetes mellitus with hemoglobin A1c goal of less than 7.0% (HCC) Inject under the skin 3 mg once a week . 2 mL 0 10/20/19 22 Active traMADol HCl 50 MG Oral Tablet [...] by mouth in the morning. 0 Active Diphenoxylate-Atro pine 2.5-0.025 MG Oral Tablet (Lomotil) Take 1 Tablet by mouth 4 times a day as needed for Diarrhea. 0 Active hydrOXYzine HCl 10 MG Oral Tablet (Atarax) Take 1 Tablet by mouth 3 times a day as needed. 0 Active OneTouch Delica Plus [id number] Use as directed. 0 Acti ve Cranberry 500 MG Oral Tablet Take by mouth. 0 Active Cranberry-Vitamin C-D Mannose 250-30-50 MG Oral Tablet Chewable Take by mouth. 0 Activ e Estradiol 0.1 MG/GM Vaginal Cream (Estrace)Indicatio ns:Atrophic vaginitis Administer 0.5g into the vaginal twice weekly at bedtime as directed. 42.5 g 3 05/30/19 24 Active Denosumab 60 MG/ML Subcutaneous Solution Prefilled Syringe (Prolia) Inject 60 mg under the skin every 6 months. 0 Active Gabapentin 300 MG Oral Capsule (Neurontin)Indicat ions:Type 2 diabetes mellitus with hemoglobin A1c goal of less than 7.0% ([facility]) Take by mouth 1 Capsule in the morning AND 1 Capsule before bedtime. 60 Capsule 0 10/20/19 22 024 Discontinu ed(Medicat ion List Clean Up) Fosfomycin Tromethamine 3 GM Oral Packet (Monurol) Take 3 g by mouth once for 1 dose. 1 Packet 0 07/10/19 24 024 Hospital, Clinic, or Other Facility Administered Medication Ordered Dose Route Frequency Start Date End Date Status hEParin 10,000 Units, bupivacaine (Sensorcaine) 30 mL, methylPREDNISolone sodium succ (SOLU-Medrol) 125 mg, gentamicin 80 mg, sodium bicarbonate 2 mEq bladder instillationIndications:Pelvi c pain in female,Nocturia,Urinary frequency,Urinary urgency,Chronic bladder pain IS QWEEK 05/05/2023 Active documented as of this encounter (statuses as of 08/04/2023) Active Problems Problem Noted Date Diagnosed Date [...] as of this encounter (statuses as of 08/04/2023) Resolved Problems Problem Noted Date Diagnosed Date [...] as of this encounter (statuses as of 08/04/2023) Immunizations Name Administration Dates Next Due COVID-19 mRNA, LNP-s, No Pre serve, 2-Dose Series (Moderna) 06/08/2021,08/02/2020 documented as of this encounter Social History Tobacco Use Types Packs/Day Years Used Date Smoking Tobacco: Former Cigarettes 0.3 35 0 11/07/1976 - 11/08/2011 Smokeless Tobacco: Never Tobacco Cessation:Counseling Given: Not Answered Alcohol Use Standard Drinks/Week Comments Not Currently [...] on file documented as of this encounter Last Filed Vital Signs Vital Sign Reading Time Taken Comments Blood Pressure 124/60 07/10/2023 10:03 AM EST Pulse 72 07/10/2023 10:03 AM EST Temperature 35.8 C (96.4 F) 07/10/2023 10:[address] Respiratory Rate - - Oxygen Saturation 98% 07/10/2023 10:03 AM EST Inhaled Oxygen Concentration - - Weight 65.5 kg (144 lb 8 oz) 07/10/2023 10:03 AM EST Height - - Body Mass Index 27.3 04/08/2023 9:28 AM EST documented in this encounter Nursing Notes * Blanka Veronica LPN - 07/10/2023 10:13 AM EST Patient was instructed to not get up on the exam table/exam chair until directed and assisted by their provider; patient is to remain seated in the chair/ wheelchair/ exam table/ exam chair for fall prevention and safety reasons. Patient is aware to have assistance to step down off exam table/exam chair with personnel. Patient voiced full comprehension of instructions. documented in this encounter Plan of Treatment Upcoming Encounters Date Type Department Care Team (Late st Contact Info) Description 09/22/2023 7:50 AM EDT Office Visit Ophthalmology, [facility] [address] [facility] [place] [address] Jose Israel, DO [address] [facility] [place] [address] Health Maintenance Due Date Last Done Comments DXA Scan 1948 Depression Screening 1960 Albumin/Creatinine Ratio 01/25/1966 Diabetic Foot Exam 01/25/1966 Hepatitis C Screening 01/25/1966 DTaP,Tdap,and Td Vaccines (1 - Tdap) 01/25/1967 HbA1c 12/08/2008 06/10/2008, 02/21/2006 TSH 06/10/2009 06/10/2008, 02/20/2006 Zoster Vaccines (2 of 2) 09/24/2017 07/30/2017, 07/17 GFR 10/12/2022 10/12/2021, 07/0 11/2020, 11/10/2020, Additional history exists COVID-19 Vaccine (2022- season) 2023 05/24/2022, 06/08/2021, 08/04/2020, Additional history [...] this encounter Medical Devices Implanted Type Area Assistant Fitness Manager Device Identifier Shelf Expiration Date Model / Serial / Lot Mesh Hernia Synt [id number] - [id number] Implanted:Qty: 1 on 10/01/2010 at [place] [facility] [place] Abdomen [employer] 03/19/2013 [id number] / / [id number] Description:c vanda crawford documented as of this encounter Visit Diagnoses Diagnosis Recurrent UTI- Primary Urinary tract infection, site not specified documented in this encounter Additional Health Concerns [...] 9:44 AM 09/26/2008 3:10 PM Care Teams Grant Officer Relationship Specialty Start Date End Date Quinn Lovett MD [address] [place] [address] [place] [address] PCP - General Internal Medicine 01/06/17 documented as of this encounter
--- OUTSIDE RECORDS SUMMARY | 2023-08-08 05:14 | External Medical Summary | Summary of Care ---
Author Name Unknown Organization [facility] Address [address] [place] [address] Phone [phone] Care Team Providers Care Business Banker Name Role Phone Quinn Lovett MD Primary Care Provi huy Reason for Referral * Precert (Within 10 days (routine)) - Pending Review Specialty Diagnoses / Procedures Referred By Contac t Referred To Contact Radiology Diagnoses Pelvic pain in female Procedures CT ABD/PELVIS WO IV/ORAL CONTRAST Moy Zacarias MD [address] [place] [address] Referral ID Status Reason Start Date Expiration Date V isits Requested Visits Authorized [id number] Pending Review 07/29/2023 [id number] Encounter Details Date Type Department Care Team (Late st Contact Info) Description 07/29/2023 Telephone [facility] Infectious Disease [address] [place] [facility] [address] Moy Zacarias MD [address] [place] [address] Allergies Active Allergy Reactions Criticality Noted Date [...] as needed. 0 Active OneTouch Delica Plus [id number] Use as directed. 0 Acti ve Cranberry [...] encounter Miscellaneous Notes * Telephone Encounter - Moy Zacarias MD - 07/29/2023 1:51 PM EDT I called Mrs. Solorzano today and she reported significant pain on peeing and sometimes blood in urine.The US kidneys performed on 07/24/2023 showed probable stones in the kidneys bilaterally, but no hydronephrosis. We will order a CT abd/pelvis and refer back to a urologist. documented in this encounter Plan of Treatment Upcoming Encounters Date Type Department Care Team (Late st Contact Info) Description 09/22/2023 7:50 AM EDT Office Visit Ophthalmology, [facility] [address] [facility] [place] [address] Jose Israel, DO [address] [place] [address] [place] [address] Scheduled Orders Name Type Priority Associated Diagnoses Orde r Schedule CREATININE Lab Routine Pelvic pain in female Expected: 07/29/2023, Expires: 07/28/2024 CT ABD/PELVIS WO IV/ORAL CONTRAST Medical Imaging Routine Pelvic pain in female Expected: 07/29/2023, Expires: 08/28/2024 Health Maintenance Due Date Last Done Comments DXA Scan 1950 Depression Screening 1960 Albumin/Creatinine Ratio 01/25/1966 Diabetic Foot Exam 01/25/1966 Hepatitis C Screening 01/25/1966 DTaP,Tdap,and Td Vaccines (1 - Tdap) 01/25/1967 HbA1c 12/08/2008 06/10/2008, 02/21/2006 TSH 06/10/2009 06/10/2008, 02/20/2006 Zoster Vaccines (2 of 2) 09/24/2017 07/30/2017, 07/17 GFR 10/12/2022 10/12/2021, 07/0 11/2020, 11/10/2020, Additional history exists COVID-19 Vaccine ( season) 2023 05/24/2022, 06/08/2021, 08/04/2020, Additional history [...] this encounter Medical Devices Implanted Type Area Home Service Director Device Identifier Shelf Expiration Date Model / Serial / Lot Mesh Hernia Synt [id number] - [id number] Implanted:Qty: 1 on 10/01/2010 at [place] [facility] Abdomen [employer] 03/19/2013 [id number] / / [id number] Description:kyle crawford documented as of this encounter Visit Diagnoses Diagnosis Pelvic pain in female- Primary Unspecified symptom associated with female genital organs documented in this encounter Additional Health Concerns [...] 9:44 AM 09/26/2008 3:10 PM Care Teams Business Banker Relationship Specialty Start Date End Date Quinn Lovett MD [address] [place] [address] [place] [address] PCP - General Internal Medicine 01/06/17 documented as of this encounter
--- OUTSIDE RECORDS SUMMARY | 2023-08-08 05:14 | External Medical Summary | Summary of Care ---
Author Name Unknown Organization [facility] Address [address] [place] [address] Phone [phone] Care Team Providers Care Shipping Receiving Manager Name Role Phone Quinn Lovett MD Primary Care Provi huy Reason for Visit * Reason Onset Date Comments Test Results 08/05/2023 Unexpected or In determinate Result Encounter Details Date Type Department Care Team (Late st Contact Info) Description 08/05/2023 Telephone Laboratory, [place] [address] [place] [address] Moy Zacarias MD [address] [place] [address] Test Results (Unexpected or Indeterminate ... Allergies Active Allergy Reactions Criticality Noted Date Comments Metformin 11/07/2020 insomnia documented as of this encounter (statuses as of 08/05/2023) Medications Medication Sig Dispensed Refills Start Date [...] as needed. 0 Active OneTouch Delica Plus [id number] Use as directed. 0 Acti ve Cranberry 500 MG Oral Tablet Take by mouth. 0 Active Cranberry-Vitamin C-D Mannose 250-30-50 MG Oral Tablet Chewable Take by mouth. 0 Activ e Estradiol 0.1 MG/GM Vaginal Cream (Estrace)Indication s:Atrophic vaginitis Administer 0.5g into the vaginal twice weekly at bedtime as directed. 42.5 g 3 4 Active Denosumab 60 MG/ML Subcutaneous Solution Prefilled Syringe ([email or web address]) Inject 60 mg under the skin every [...] as of this encounter (statuses as of 08/05/2023) Active Problems Problem Noted Date Diagnosed Date [...] as of this encounter (statuses as of 08/05/2023) Resolved Problems Problem Noted Date Diagnosed Date [...] per HTN protocol #16. Mixed dyslipidemia 02/01/2008 Overview: Per Lipid Taxonomy. documented as of this encounter (statuses as of 08/05/2023) Immunizations Name Administration Dates Next Due COVID-19 [...] encounter Miscellaneous Notes * Telephone Encounter - Ary Vargas PBT - 08/05/2023 12:53 PM EDT Hello- The radiologist discovered an unexpected or indeterminate finding on Faith Solorzano ([id number]) and asks that you review the following report. Study Type: CT ABD/PELVIS WO IV/ORAL CONTRAST Date of Study:08/01/2023 IMPRESSION 1. Comparison is made to the outside CT dated 03/02/2020. Multiple new liver lesions, concerning for metastases. A customer service representative teller lesion in the dome of the liver measures 3.4 x 2.5 cm. 2. Multiple bilateral nonobstructive renal calculi as detailed above. The distal ureters and the bladder were not well seen secondary to streak artifacts from patient's bilateral hip arthroplasty hardware. 3. A small cystic lesion in the body of the pancreas measuring 0.7 cm, increased in size since the prior CT, may be a side branch IPMN, however not definitively characterized with CT. Consider a follow up MRCP for further evaluation. 4. 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 Since a porcelain gallbladder increases the patient's risk for gallbladder malignancy, consider continued surveillance. There is a large stone in the gallbladder. Please respond to this encounter to acknowledge receipt of this message and take responsibility to ensure this report is reviewed. Thank you, TONY Oglesby Client Service Rep [facility] documented in this encounter Plan of Treatment Upcoming Encounters Date Type Department Care Team (Latest Contact Info) Description 09/22/2023 7:50 AM EDT Office Visit Ophthalmology, [facility] [address] [place] [address] Jose Israel, [facility] [address] 10/17/2023 11:20 AM EDT Hospital Encounter [facility], Operating Room [facility] [address] [place] [id number] Jake Simmons MD [address] [place] [address] 10/17/2023 11:20 AM EDT - 10/17/2023 12:10 PM EDT Surgery OR [facility], Operating Room [facility] [address] [place] [phone] Jake Simmons MD [address] [place] [address] CYSTOURETHROSCOPY DILATION BLADDER GENERAL ANESTHESIA 10/30/2023 9:40 AM EDT Office Visit Urogynecology [facility] [address] [place] [address] Jake Simmons MD [address] [place] [address] Scheduled Procedures Name Priority Associated Diagnoses Date/Ti me CYSTOURETHROSCOPY DILATION BLADDER GENERAL ANESTHESIA Pelvic pain in female Interstitial cystitis 10/17/2023 11:20 AM EDT Health Maintenance Due Date Last Done Comments [...] this encounter Medical Devices Implanted Type Area Trainer Device Identifier Shelf Expiration Date Model / Serial / Lot Mesh Hernia Synt [id number] - [id number] Implanted:Q[place]: 1 on 10[place]01[place] [facility] [place] [employer] 03/19/2013 [id number] / / [id number] Description:kyle crawford documented as of this encounter Additional Health Concerns Infection Onset [...] 9:44 AM 09/26/2008 3:10 PM Care Teams Shipping Receiving Manager Relationship Specialty Start Date End Date Quinn Lovett MD [address] [place] [address] [place] [address] PCP - General Internal Medicine 01/06/17 documented as of this encounter
--- OUTSIDE RECORDS SUMMARY | 2023-08-08 05:14 | External Medical Summary | Summary of Care ---
Author Name Unknown Organization [facility] [address] [place] [address] Phone [phone] Care Team Providers Care Air Lift Operator Name Role Phone Quinn Lovett MD Primary Care Provi huy Reason for Visit * Reason Onset Date Comments Test Results 08/05/2023 Encounter Details Date Type Department Care Team (Late st Contact Info) Description 08/05/2023 Telephone Urogynecology [facility] [address] [place], [place] [phone] [facility] [address] [place], [place] [id number] Test Results Allergies Active Allergy Reactions Criticality Noted Date [...] as needed. 0 Active OneTouch Delica Plus [id number] Use as directed. 0 Acti ve Cranberry [...] encounter Miscellaneous Notes * Telephone Encounter - Yelena Dietrich LPN - 08/05/2023 10:24 AM EDT Received call from [facility] asking if CT results are back. States they spoke to someone last evening who stated results are in process. Results still in process. States patient keeps calling. Asking if we can let them know when results are in. Made aware this was not ordered by Uro/flight controls engineer - results will be going to ordering provider - ID. Verbalized understanding - states pt was unsure who ordered this. documented in this encounter Plan of Treatment Upcoming Encounters Date Type Department Care Team (Late st Contact Info) Description 09/22/2023 7:50 AM EDT Office Visit Ophthalmology, [facility] [address] [place] [address] Jose Israel T, DO [address] [place], [place] [address] [address] 10/17/2023 Hospital Encounter [facility], Operating Room [facility] [address] [place] [phone] Jake Simmons MD [address] [place] [address] 10/30/2023 9:40 AM EDT Office Visit Urogynecology [facility] [address] [place] [address] Jake Simmons MD [address] [place] [address] Scheduled Procedures Name Priority Associated Diagnoses Date/Ti me CYSTOURETHROSCOPY DILATION B LADDER GENERAL ANESTHESIA Pelvic pain in female Interstitial cystitis Health Maintenance Due Date Last Done Comments [...] this encounter Medical Devices Implanted Type Area Accounts Receivable Specialist Device Identifier Shelf Expiration Date Model / Serial / Lot Mesh Hernia Synt [id number] - [id number] Implanted:Qty: 1 on 10/01/[place] [facility] [employer] 03/19/2013 [address] / / [id number] Description:kyle crawford documented as of this encounter [...] 9:44 AM 09/26/2008 3:10 PM Care Teams Air Lift Operator Relationship Specialty Start Date End Date Quinn Lovett MD [address] [place] [address] [place] [address] PCP - General Internal Medicine 01/06/17 documented as of this encounter
--- OUTSIDE RECORDS SUMMARY | 2023-08-08 05:14 | External Medical Summary | Summary of Care ---
Author Name Unknown Organization [facility] Address [address] [place] [address] Phone [phone] Care Team Providers Care Staff Nurse Icu Resource Team Name Role Phone Quinn Lovett MD Primary Care Provi huy Reason for Visit * Reason Onset Date Comments Films 08/05/2023 Encounter Details Date Type Department Care Team (Late st Contact Info) Description 08/05/2023 Telephone Radiology [facility] [address] [place] [address] Moy Zacarias MD [address] [place] [address] Films Allergies Active Allergy Reactions Criticality Noted Date [...] as needed. 0 Active OneTouch Delica Plus [id number] Use as directed. 0 Acti ve Cranberry [...] protocol #14. HTN, goal to be determined 02/01/200806/11/2008 Overview: Modified per HTN protocol #16. Mixed [...] encounter Miscellaneous Notes * Telephone Encounter - Kacy Jaramillo OSA - 08/05/2023 2:33 PM EDT [facility] reports Shona Scheduling CallCenter requesting 07/24/23 Renal Ultrasound and 08/01/23 Abd/Pelvis CT Imaging be sent to [facility]. [place] Authorization to Release on file. Images pushed to [facility] PACS. documented in this encounter Plan of Treatment Upcoming Encounters Date Type Department Care Team (Latest Contact Info) Description 09/22/2023 7:50 AM EDT [facility] [address] [place] [address] Jose Israel T, DO [address] [place] [address] 10/17/2023 11:20 AM EDT Hospital Encounter OR [facility], Operating Room [facility] [address] [place] [phone] Jake Simmons MD 132 [place] [address] 10/17/2023 11:20 AM EDT - 10/17/2023 12:10 PM EDT Surgery OR [facility], Operating Room [facility] [address] [place] [phone] Jake Simmons MD [address] [place] [address] CYSTOURETHROSCOPY DILATION BLADDER GENERAL ANESTHESIA 10/30/2023 9:40 AM EDT [facility] [address] [place] [address] Jake Simmons MD [address] [place] [address] Scheduled Procedures Name Priority Associated Diagnoses Date/Ti [...] 2) 09/24/2017 07/30/2017, 07/17 GFR 10/12/2022 10/12/2021, 0711/2020, 11/10/2020, Additional history exists COVID-19 Vaccine (2022- [...] this encounter Medical Devices Implanted Type Area Cvicu Rn Device Identifier Shelf Expiration Date Model / Serial / Lot Mesh Hernia Synt [id number] - [id number] Implanted:Qty: 1 on 10/01/2010 at [place] [facility] [place] Abdomen [employer] 03/19/2013 [id number] / / [id number] Description:c qur tacshield documented as of this encounter Additional Health [...] 9:44 AM 09/26/2008 3:10 PM Care Teams Staff Nurse Icu Resource Team Relationship Specialty Start Date End Date Quinn Lovett MD [address] [place] [address] [place] [address] PCP - General Internal Medicine 01/06/17 documented as of this encounter
--- OUTSIDE RECORDS SUMMARY | 2023-08-08 05:14 | External Medical Summary | Summary of Care ---
Author Name Unknown Organization [facility] Address [address] [place] [address] Phone [phone] Care Team Providers Care Local Owner Operator Truck Driver Name Role Phone Quinn Lovett MD Primary [...] a return phone call , please call [phone] Thank-you! Encounter Details Date Type Department Care Team (Late st Contact Info) Description 07/23/2023 Telephone Infectious Disease, [place] [address] [place] [address] Moy Zacarias MD [address] [place] [address] Advice (Pt's daughter Lulu calling [...] as needed. 0 Active OneTouch Delica Plus [id number] Use as directed. 0 Acti ve Cranberry [...] a return phone call , please call [phone] Thank-you! Leighann documented in this encounter Plan of Treatment Upcoming Encounters Date Type Department Care Team (Late st Contact Info) Description 09/22/2023 7:50 AM EDT Office Visit Ophthalmology, [facility] [address] [facility] [place] [address] Jose Israel, DO [address] [place], [place] [phone] Scheduled Orders Name Type Priority Associated Diagnoses [...] this encounter Medical Devices Implanted Type Area Reservation Sales Agent Device Identifier Shelf Expiration Date Model / Serial / Lot Mesh Hernia Synt [id number] - [id number] Implanted:Qty: 1 on 10/01/2010 [place] [facility] [place] Abdomen [employer] 03/19/2013 [id number] / / [id number] Description:kyle crawford documented as of this encounter [...] 9:44 AM 09/26/2008 3:10 PM Care Teams Local Owner Operator Truck Driver Relationship Specialty Start Date End Date Quinn Lovett MD [address] [place] [address] [place] [address] PCP - General Internal Medicine 01/06/17 documented as of this encounter
--- OUTSIDE RECORDS SUMMARY | 2023-08-08 05:14 | External Medical Summary | Summary of Care ---
Author Name Unknown Organization [facility] Address [address] [facility] [place] [address] Phone [phone] Care Team Providers Care Defective Cigarette Slitter Name Role Phone Quinn Lovett MD Primary Care Provi huy Reason for Visit * Reason Onset Date Comments Appointment 06/16/2023 Encounter Details Date Type Department Care Team (Late st Contact Info) Description 06/16/2023 Telephone Fertility [facility] [address] [place] [address] Khloe Mckeon PA-C [address] [place] [address] Appointment Allergies Active Allergy Reactions Criticality Noted Date [...] as needed. 0 Active OneTouch Delica Plus [id number] Use as directed. 0 Acti ve Cranberry 500 MG Oral Tablet Take by mouth. 0 Active Cranberry-Vitamin C-D Mannose 250-30-50 MG Oral Tablet Chewable Take by mouth. 0 Activ e Estradiol 0.1 MG/GM Vaginal Cream (Estrace)Indication s:Atrophic vaginitis Administer 0.5g into the vaginal twice weekly at bedtime as directed. 42.5 g 3 4 Active Hospital, Clinic, or Other Facility Administered [...] per HTN protocol #16. Mixed dyslipidemia 02/01/2008 12/200 9 Overview: Per Lipid Taxonomy. documented as [...] encounter Miscellaneous Notes * Telephone Encounter - Elizabeth Villafuerte OSA - 06/17/2023 11:59 AM EST Apt scheduled; LMOM * Telephone Encounter - Mikaela Orta OSA - 06/16/2023 3:56 PM EST Patient stated she needs to return in a month but I was not sure what to schedule it as since therewas no check out note. Please call patient to schedule. Thank you. documented in this encounter Plan of Treatment Upcoming Encounters Date Type Department Care Team (Late st Contact Info) Description 09/22/2023 7:50 AM EDT Office Visit Ophthalmology, [facility] [address] Jose Israel, DO [address] [place], [place] [address] [address] Health Maintenance Due Date Last Done Comments [...] this encounter Medical Devices Implanted Type Area Can Filler Device Identifier Shelf Expiration Date Model / Serial / Lot Mesh Hernia Synt [id number] - [id number] Implanted:Qty: 1 on 10/01/2010 at [place] [facility] [place] Abdomen [employer] 03/19/2013 [address]95 / / [id number] Description:kyle crawford documented as of this encounter [...] 9:44 AM 09/26/2008 3:10 PM Care Teams Defective Cigarette Slitter Relationship Specialty Start Date End Date Quinn Lovett MD [address] [place] [address] [place] [address] PCP - General Internal Medicine 01/06/17 documented as of this encounter
[2023-08-08 06:26] LABS: Basophils # (auto) 0.06 K/uL (0.00-0.20); Basophils % (auto) 1.7 %; Eosinophils # (auto) 0.15 K/uL (0.00-0.50); Eosinophils % (auto) 4.1 %; Hematocrit (blood only) 27.3 % (37.0-47.0); Hemoglobin 9.3 g/dl (12.0-16.0); Lymphocytes # (auto) 1.43 K/uL (1.20-3.40); Lymphocytes % (auto) 39.5 %; Mean Corpuscular Hemoglobin 34.3 pg (25.0-34.0); Mean Corpuscular Hgb Conc 34.1 g/dL (32.0-36.0); Mean Corpuscular Volume 100.7 fL (80.0-100.0); Mean Platelet Volume 10.9 fL (9.4-12.4); Monocytes # (auto) 0.62 K/uL (0.11-0.59); Monocytes % (auto) 17.1 %; Neutrophils # (auto) 1.36 K/uL (1.40-6.50); Neutrophils % (auto) 37.6 %; Platelet Count 258 K/uL (130-400); RDW Standard Deviation 70.2 fL (36.4-46.3); Red Blood Count 2.71 M/uL (4.20-5.40); White Blood Count 3.62 K/ul (4.8-10.8)
[2023-08-08 06:42] LABS: Albumin Globulin Ratio 1.8 (0.9-2); Albumin Level 3.7 gm/dl (3.4-5.0); BUN Creatinine Ratio 11.1 (10-20); Bilirubin,Total 0.9 mg/dl (0.2-1.0); Calcium 7.7 mg/dl (8.6-10.3); Chol HDL Ratio 1.9 (0-5); Creatinine Clr Calc Pharmacy 94.3 ml/min; Est GFR (African American) 113.6 ml/min; Globulin 2.1 gm/dl (2.5-4.0); Magnesium 1.8 mg/dl (1.7-2.4); Potassium 2.8 mmol/L (3.5-5.1); Total Protein 5.8 gm/dl (6.0-8.3)
[2023-08-08 06:52] LABS: INR 1.2 (0.9-1.1); Prothrombin Time 13.5 Seconds (9.0-12.0)
[2023-08-08 06:56] LABS: Thyroid Stimulating Hormone 4.268 uIu/ml (0.300-4.500)
--- NOTE | 2023-08-08 07:47 | Hospitalist Progress Note ---
Date of Service August 08, 2023 Assessment & Plan (1) Nausea & vomiting: Plan: Assessment: Refractory nausea and vomiting. Unknown etiology at this time however do suspect likely ?adverse reaction to Mounjaro given started w/ worsening symptoms ~ 2 weeks ago when they switched her to this as they were unable to find any Trulicity locally. This has been discontinued. ? cannot r/o UTI given her suprapubic discomfort ?progressive metastatic disease Of note, hx bypass. not moved her bowels in several days. CTAP on admission -No acute infectious or inflammatory findings are identified in the abdomen or pelvis. -Multifocal hepatic metastatic disease has progressed as compared to 04/24/2023. -Cardiomegaly and cardiac pacemaker. -There is a large gallstone contained within a dilated cystic duct remnant. - B/l nephrolithiasis -Notable fecal retention on CTAP but no evidence for obstruction NPO until eval by GI -- consult placed as not ordered on admission. Added NS + 20meq KCl while NPO, additional 40meq IV potassium for K 2.8 (stopped after one bag, given PO as NPO cancelled as below). Mag wnl 1.8 GI saw this AM - recs for clear diet, PPI increase to BID and adding pepcid. - if ongoing issues through w/ maximizing therapy will plan EGD Friday with Dr Rojas. Patient was agreeable. They are to discuss w/ [facility] for no concerns over the cystic duct stone. LFTs wnl at present. -Report no concerns over retained cystic duct stone given LFTs and no need for ERCP at present time Clear liquid diet ordered Pain control - Added dilaudid over IV morphine. Tramadol resumed as taking at home for mild-moderate discomfort. - Added zofran as needed for antiemetic Urine cx pending, does have some suprapubic discomfort and R lower back pain. Monitor final urine cx/abx as needed. Pyridium added for bladder spasm in the meantime Also checking iron studies given anemia, likely chronic and in setting of her known metastatic disease. Labs on repeat (2) Urinary tract infection: Plan: ?possible vs cystitis -- ongoing dysuria symptoms/suprapubic discomfort. has been on multiple abx for UTI recently through [place] [facility] Repeat UA on admit, no bacteria noting had been on abd Urine cx sent, pin-point growth -- MONITOR --Does have nonobstructing kidney stones bilaterally that need f/u Pyridium added in meantime Monitor UOP, BMP in AM (3) Chronic GERD: Plan: on ppi once daily as above, GI consulted and PPI increased to BID and added pepcid and to monitor through weekend and plan for EGD Friday w/ Dr Case if ongoing issues monitor (4) Acute dehydration: Plan: IVF as above, poor PO intake for several days w/ nausea and vomiting and concerns related to recently starting mounjaro for DM control (5) Abdominal pain: Plan: as above, multifactorial however worsened since starting mounjaro and would avoid PPI increased to BID, pepcid, GI consulted as above pain control, antiemetics monitor tolerance of diet (6) Hypothyroidism: Plan: TSH wnl on check Remains on 37.5mcg daily (7) Pain due to interstitial cystitis: Plan: pyridium added, monitor urine cx (8) Diabetes type 2, controlled: Plan: a1c 5.5 was on trulicity, not able to find, reason for mounjaro as above BSG AC/HS, sliding scale while inpatient and adjustment as needed (9) Metastatic breast cancer: Plan: Stage IV metastatic breast carcinoma with mets to the liver. Follows with oncology. LFTs wnl on check (10) Atrial fibrillation: Plan: eliquis BID continued TSH wnl no palpitations/SOB/CP reported or need to have on monitor at present (11) Constipation: Plan: as above, ?related to mounjaro vs other. poor PO intake over several days, IVF as above. Will add colace BID/monitor (12) Recurrent UTI (urinary tract infection): Plan: following by [facility]berts, recently seen/abx as above (13) Anemia: Plan: chronic, likely 2nd to metastatic breast ca as above to liver, progressive since prior imaging on admission CT Iron studies to be checked, will add B12/folate to AM labs given MCV >100 but also add peripheral smear. TSH borderline but wnl (will add T4/t3 to am labs) fecal occult added for completeness (however denies any blood in stool but hasn't moved bowels for several days) -- remains on eliquis in meantime hgb around baseline w/ IVF on admit and getting 1L while NPO/monitoring PO intake as above CBC in AM (14) Hypokalemia: Plan: low on admit 3.2, do not see replacement 2.8 on AM labs, likely from n/v PO/IV K riders ordered, added to IVF as above Mag wnl Monitor BMP in AM Plan DVT proph: eliquis BID continued inpatient stay PPI increased to BID, pepcid added and GI to follow for possible EGD on friday. Check iron studies/fecal occult and f/u urine cx and add abx if positive however would await cultures and patient not presently septic or critically ill at present time Admission and Anticipated Discharge Date Admission Date: August 07, 2023 Supervising Physician Co-Signing Physician Notes The patient was not seen by me. The chart was reviewed. Case discussed with AZEEM Kearney. Agree with assessment and plan Subjective Evaluated this morning, sitting up in bed on the phone. Was seen by infectious disease at [place] for her urinary symptoms, tx for UTI, nothing helps. She notes she had been on trulicity but no one able to get this and so her doctor sent her in rx for Mounjaro which she started about 2 weeks ago. Injections have been weekly on Fridays, due today. She notes her symptoms have lined up with this timing however has had long standing issues, worried about bleeding ulcer possibly. No blood in stool reported but she notes it has been several days since moving her bowels. She notes she has R lower back pain as well as epigastric discomfort. Hasn't eaten well in couple of days. Last meal Friday with meatloaf around 6pm and had vomiting following this,. Discussed NPO/IVF, pain control. She notes her morphine was effective initially last night but was up all night/second dose ineffective. When discussed pain control in past believe had better results w/ Dilaudid and will order x 1. Initially had messaged Dr Moses this morning who was to pass along to Dr Roldan for today. Discussed w/ GI in [place], to see her. Unclear why switch but hopefully able to at least EGD for eval but did note retained cystic duct stone (has had GB removed in past). Questions/concerns addressed at this time. Physical Exam Physical Exam: General: 73yo female sitting up in bed on the phone, NAD, wanting to know if able to eat or having procedure, pleasant/cooperative HEENT: head atraumatic, normocephalic, mm slightly dry, trachea midline Resp; even/unlabored, slightly diminished in the bases but no w/c/r, on room air CV: RRR, +systolic murmur, no significant LE edema, calves nontender, pulses palpable GI: +BS throughout, +tenderness epigastric region as well as suprapubic however generalized discomfort reported. abd soft, no guarding/rigidity/wamrth : +suprapubic discomfort, ?R CVA MSK/Neuro: nonfocal, follows commands, strength equal bilaterally Psych: AOx3, cooperative, remembers me from 2020 Results & Data Results & Data Vital Signs (Past 12 Hours) Vital Signs Temp Pulse Resp BP Pulse Ox O2 Del Method 08/07/23 20:45 36.5 C 67 18 135/62 97 Room Air Laboratory Results 08/08/23 08/08/23 08/08/23 Range/Units 11:47 05:47 05:36 WBC 3.62 L (4.8-10.8) K/ul RBC 2.71 L (4.20-5.40) M/uL Hgb 9.3 L (12.0-16.0) g/dl Hct 27.3 L (37.0-47.0) % MCV 100.7 H (80.0-100.0) fL MCH 34.3 H (25.0-34.0) pg MCHC 34.1 (32.0-36.0) g/dL RDW Std Deviation 70.2 H (36.4-46.3) fL RDW Coeff of Thompson 19.0 H (11.5-14.5) % Plt Count 258 (130-400) K/uL MPV 10.9 (9.4-12.4) fL Immature Gran % (Auto) 0.0 % Neut % (Auto) 37.6 % Lymph % (Auto) 39.5 % [place] % (Auto) 17.1 % Eos % (Auto) 4.1 % Baso % (Auto) 1.7 % Neut # (Auto) 1.36 L (1.40-6.50) K/uL Lymph # (Auto) 1.43 (1.20-3.40) K/uL [place] # (Auto) 0.62 H (0.11-0.59) K/uL Eos # (Auto) 0.15 (0.00-0.50) K/uL Baso # (Auto) 0.06 (0.00-0.20) K/uL Immature Gran # (Auto) 0.00 L (0.01-0.20) K/uL PT 13.5 H (9.0-12.0) Seconds INR 1.2 H (0.9-1.1) Sodium 140 (136-145) mmol/L Potassium 2.8 L (3.5-5.1) mmol/L Chloride 108 H (98-107) mmol/L Carbon Dioxide 24 (21-32) mmol/L Anion Gap 8 (3-11) BUN 5 L (6-23) mg/dl Creatinine 0.45 L (0.6-1.2) mg/dl Est Cr Clr Drug Dosing 94.3 ml/min Est GFR ( Amer) 113.6 ml/min Est GFR (Non-Af Amer) 98.0 ml/min BUN/Creatinine Ratio 11.1 (10-20) Glucose 78 (70-99(Fasting)) mg/dl POC Glucose 205 H 86 (70-99) mg/dl Estimat Average Glucose 111 mg/dl Hemoglobin A1c 5.5 (4.5-5.6) % Calcium 7.7 L (8.6-10.3) mg/dl Magnesium 1.8 (1.7-2.4) mg/dl Iron 118 (35-150) mcg/dl TIBC 250 (250-450) mcg/dl Unsaturated IBC 132 L (155-355) mcg/dl Transferrin % Sat 47 (15-50) % Ferritin 343.9 (8-388) ng/ml Total Bilirubin 0.9 (0.2-1.0) mg/dl AST 29 (13-39) U/L ALT 28 (7-52) U/L Alkaline Phosphatase 82 (34-104) U/L Total Protein 5.8 L (6.0-8.3) gm/dl Albumin 3.7 (3.4-5.0) gm/dl Globulin 2.1 L (2.5-4.0) gm/dl Albumin/Globulin Ratio 1.8 (0.9-2) Triglycerides 61 (0-150) mg/dl Cholesterol 106 (0-200) mg/dl LDL Cholesterol, Calc 38 mg/dl VLDL Cholesterol, Calc 12 (0-30) mg/dl HDL Cholesterol 56 mg/dl Cholesterol/HDL Ratio 1.9 (0-5) Lipase 5 L (11-82) U/L TSH 4.268 (0.300-4.500) uIu/ml Urine Color Urine Appearance (Clear) Urine pH (4.5-7.5) Ur Specific Dalton (1.000-1.030) Urine Protein (Negative) Urine Glucose (UA) (Negative) Urine Ketones (Negative) Urine Blood (Negative) Urine Nitrite (Negative) Urine Bilirubin (Negative) Urine Urobilinogen (Negative) Ur Leukocyte Esterase (Negative) Urine WBC (Auto) (0-5) /hpf Urine RBC (Auto) (0-4) /hpf U Hyaline Cast (Auto) (0-5) /lpf U Epithel Cells (Auto) (0-5) /lpf Urine Bacteria (Auto) (Negative) Ur Renal Epithelial Cell (0-5) /lpf 08/07/23 08/07/23 08/07/23 Range/Units 20:35 18:09 12:55 WBC (4.8-10.8) K/ul RBC (4.20-5.40) M/uL Hgb (12.0-16.0) g/dl Hct (37.0-47.0) % MCV (80.0-100.0) fL MCH (25.0-34.0) pg MCHC (32.0-36.0) g/dL RDW Std Deviation (36.4-46.3) fL RDW Coeff of Thompson (11.5-14.5) % Plt Count (130-400) K/uL MPV (9.4-12.4) fL Immature Gran % (Auto) % Neut % (Auto) % Lymph % (Auto) % [place] % (Auto) % Eos % (Auto) % Baso % (Auto) % Neut # (Auto) (1.40-6.50) K/uL Lymph # (Auto) (1.20-3.40) K/uL [place] # (Auto) (0.11-0.59) K/uL Eos # (Auto) (0.00-0.50) K/uL Baso # (Auto) (0.00-0.20) K/uL Immature Gran # (Auto) (0.01-0.20) K/uL PT (9.0-12.0) Seconds INR (0.9-1.1) Sodium (136-145) mmol/L Potassium (3.5-5.1) mmol/L Chloride (98-107) mmol/L Carbon Dioxide (21-32) mmol/L Anion Gap (3-11) BUN (6-23) mg/dl Creatinine (0.6-1.2) mg/dl Est Cr Clr Drug Dosing ml/min Est GFR ( Amer) ml/min Est GFR (Non-Af Amer) ml/min BUN/Creatinine Ratio (10-20) Glucose (70-99(Fasting)) mg/dl POC Glucose 164 H 108 H (70-99) mg/dl Estimat Average Glucose mg/dl Hemoglobin A1c (4.5-5.6) % Calcium (8.6-10.3) mg/dl Magnesium (1.7-2.4) mg/dl Iron (35-150) mcg/dl TIBC (250-450) mcg/dl Unsaturated IBC (155-355) mcg/dl Transferrin % Sat (15-50) % Ferritin (8-388) ng/ml Total Bilirubin (0.2-1.0) mg/dl AST (13-39) U/L ALT (7-52) U/L Alkaline Phosphatase (34-104) U/L Total Protein (6.0-8.3) gm/dl Albumin (3.4-5.0) gm/dl Globulin (2.5-4.0) gm/dl Albumin/Globulin Ratio (0.9-2) Triglycerides (0-150) mg/dl Cholesterol (0-200) mg/dl LDL Cholesterol, Calc mg/dl VLDL Cholesterol, Calc (0-30) mg/dl HDL Cholesterol mg/dl Cholesterol/HDL Ratio (0-5) Lipase (11-82) U/L TSH (0.300-4.500) uIu/ml Urine Color Dark Yellow Urine Appearance Clear (Clear) Urine pH 6.5 (4.5-7.5) Ur Specific Dalton 1.013 (1.000-1.030) Urine Protein Trace H (Negative) Urine Glucose (UA) Negative (Negative) Urine Ketones 1+ H (Negative) Urine Blood 3+ H (Negative) Urine Nitrite Negative (Negative) Urine Bilirubin Negative (Negative) Urine Urobilinogen Negative (Negative) Ur Leukocyte Esterase 1+ H (Negative) Urine WBC (Auto) >30 H (0-5) /hpf Urine RBC (Auto) >30 H (0-4) /hpf U Hyaline Cast (Auto) 1-5 (0-5) /lpf U Epithel Cells (Auto) >30 H (0-5) /lpf Urine Bacteria (Auto) Negative (Negative) Ur Renal Epithelial Cell 0-5 (0-5) /lpf Diagnostic Findings Abdomen/Pelvis CT 08/07/23 13:17 CT SCAN OF THE ABDOMEN AND PELVIS WITHOUT IV CONTRAST CLINICAL HISTORY: Vomiting. COMPARISON STUDY: Abdominal CT dated 04/24/2023. TECHNIQUE: CT scan of the abdomen and pelvis is performed from the lung bases to the proximal femora. Images are reviewed in the axial, sagittal, and coronal planes. IV contrast was not administered for this examination. A dose lowering technique was utilized adhering to the principles of ALARA. The examination is degraded by metallic streak artifact from extensive spinal hardware and bilat eral hip arthroplasties. CT DOSE: 853.39 mGy.cm FINDINGS: Lung bases: The heart is enlarged and without pericardial effusion. Pacemaker leads are in place. There are coronary artery calcifications. There is diminished attenuation of the cardiac blood pool is compared to myocardium suggesting anemia. There are scattered calcified granulomas. No airspace consolidation or pleural effusion is identified. Liver: The unenhanced liver is normal in size, contour, and attenuation. There is no intrahepatic biliary ductal dilatation. There is evidence of multifocal hepatic metastatic disease. This has progressed as compared to 04/24/2023. At least 5 right lobe lesions are identified and measure up to 4.1 cm. Gallbladder: Surgically absent noting clips in the gallbladder fossa. There is a calcified gallstone within a cystic duct remnant seen on image #85. Spleen: Normal in size and attenuation. Pancreas: The unenhanced pancreas is moderately atrophic and grossly unremarkable. Adrenal glands: Unremarkable. Kidneys: The unenhanced kidneys are normal in size and without hydronephrosis. There are at least 3 nonobstructing right renal calculi which measure up to 6 mm. At least 4 nonobstructing calculi are seen in the left kidney and measure up to 9 mm. No ureteral stone is seen. There is no evidence of contour deforming renal mass lesion. Abdominal vasculature: The abdominal aorta is normal in course and caliber noting mild atherosclerotic calcification. Stomach and bowel: A tiny hiatal hernia is noted. Postoperative change is noted in the stomach. A small bowel anastomosis is seen in the pelvis. There is mild colonic fecal retention. No bowel obstruction is identified. The appendix is not visualized. Peritoneum: There is no intraperitoneal free air or abdominal ascites. There is evidence of previous ventral hernia repair. Lymphadenopathy: None. Pelvic viscera: Evaluation of the pelvis is degraded by streak artifact from bilateral hip arthroplasties. The bladder is normal as visualized. The uterus is surgically absent. No adnexal lesion is seen. Skeletal structures: The skeletal structures are osteopenic. Spondylotic and extensive postsurgical changes noted in the lumbar spine. There are chronic/healed right-sided rib fractures. No lytic or blastic lesions are seen. Bilateral hip arthroplasties are in place IMPRESSION: 1. No acute infectious or inflammatory findings are identified in the abdomen or pelvis. 2. Multifocal hepatic metastatic disease has progressed as compared to 04/24/2023. 3. Cardiomegaly and cardiac pacemaker. 4. There is a large gallstone contained within a dilated cystic duct remnant. 5. Bilateral nephrolithiasis. 6. Additional findings as above. ACT 112: Negative or not required by law. Electronically signed by: Noe Carrillo M.D. 08/07/2023 2:12 PM PG Care Time/CCT Total # of Minutes Spent Total Time Spent with Patient: Total time spent is greater than 50% in coordination of care (as documented) at patient's floor/unit and/or counseling patient: Coding Level of Care Code 74563 SUB INP/OBS CARE 3/50MIN Diagnoses Nausea & vomiting R11.2 Vomiting type: unspecified Urinary tract infection N30.01 Hematuria presence: with hematuria Urinary tract infection type: acute cystitis Chronic GERD K21.9 Acute dehydration E86.0 Abdominal pain R10.30 Abdominal location: lower abdomen, unspecified Hypothyroidism, unspecified type E03.9 Hypothyroidism type: unspecified Pain due to interstitial cystitis N30.10 Controlled type 2 diabetes mellitus without complication, with long-term current use of insulin E11.9; Z79.4 Diabetes mellitus complication status: without complication 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 Metastatic breast cancer C50.919 Atrial fibrillation, unspecified type I48.91 Atrial fibrillation type: unspecified Constipation K59.00 Recurrent UTI (urinary tract infection) N39.0 Anemia D64.9 Anemia type: unspecified type Hypokalemia E87.6 (1) Nausea & vomiting Vomiting type: unspecified Qualified Code(s): R11.2 - Nausea with vomiting, unspecified (2) Urinary tract infection Hematuria presence: with hematuria Urinary tract infection type: acute cystitis Qualified Code(s): N30.01 - Acute cystitis with hematuria (5) Abdominal pain Abdominal location: lower abdomen, unspecified Qualified Code(s): R10.30 - Lower abdominal pain, unspecified (6) Hypothyroidism Hypothyroidism type: unspecified Qualified Code(s): E03.9 - Hypothyroidism, unspecified (8) Diabetes type 2, controlled Diabetes mellitus complication status: without complication 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
[2023-08-08 07:49] LABS: Estimated Average Glucose 111 mg/dl; Hemoglobin A1C 5.5 % (4.5-5.6)
[2023-08-08] MEDS ORDERED: MoRPHine SULFATE 2 MG/ML CARP IV PRN (07:56)
[2023-08-08] MEDS: POTASSIUM CHLORIDE / WTR 10 MEQ/100 ML PLCT IV SCH (08:26)
[2023-08-08] MEDS: PANTOprazole 40 MG TAB PO SCH ×2 (08:26→20:57)
[2023-08-08] MEDS: LOSARTAN POTASSIUM 25 MG TAB PO SCH (08:26)
[2023-08-08] MEDS: NSS + 20MEQ KCL 20 MEQ/1,000 ML BAG IV SCH (08:26)
[2023-08-08] MEDS: dilTIAZem HCL 180 MG CAPCR PO SCH (08:27)
[2023-08-08] MEDS: LEVOTHYROXINE SODIUM 25 MCG TABLET PO SCH (08:28)
[2023-08-08] MEDS: POTASSIUM CHLORIDE CRTAB 20 MEQ TABCR PO STA (10:08)
[2023-08-08] MEDS: HYDROmorphone INJ 0.5 MG/0.5 ML SYR IV STA (10:09)
--- NOTE | 2023-08-08 10:13 | Gastrointestinal Consultation ---
Date of Consultation August 08, 2023 Assessment & Plan (1) Abdominal pain: (2) Nausea & vomiting: Plan Patient with a 3-4 week history of nausea, vomiting, and lower abdominal pain. Likely this is multifactorial. There could be a possible component of gastritis given recurrent antibiotics. Her pain seems to be lower in nature and I suspect this may be more urinary in nature. recurrent UTIs could also contribute to her nausea/vomiting. symptoms may also be medication related. I discussed the case with Dr. Huffman who helped advise on plan. - will plan on increasing protonix to 40mg bid. also will add famotidine 20mg bid. - patient was questioning EGD to further evaluate. we discussed risks/benefits. she would like to attempt the increase in PPI and addition of bid H2 alec prior to proceeding with an endoscopy. If ongoing symptoms, can readdress doing an EGD. - I had discussed the CT findings of the gallstone in dilated cystic duct with the [facility] GI team (Dr. Roldan) and they tell me that there is no need for ERCP for this. Supervising Physician Co-Signing Physician Notes I saw the patient and agree with the findings as documented by AUGUST Nicole History of Present Illness Reason for Consultation: nausea, vomiting, evaluate for EGD Requesting Physician: Yamileth Rene PA-C Attending Physician: Fransisco Quispe MD History of Present Illness Patient is a 73 year old female who was admitted with a 3 to 4 week history of nausea, vomiting, lower abdominal cramping has been worse over the last couple weeks. She has had recurrent issues with UTIs and admits she has seen infectious disease for this. She has had multiple doses of oral antibiotics including ciprofloxacin, fosfomycin, Bactrim, and Macrobid. She tells me that her nausea and vomiting seems to be worse when she takes the antibiotics. She tells me that her stomach pain is more in the lower pelvis and she believes that it is coming from the bladder. She is also having difficulty with painful urination. she tells me that some of her symptoms also seemed to start when she was placed on mounjaro. She had a CT of the abdomen pelvis which showed nonobstructive bilateral kidney stones that shows liver metastatic disease which she is aware of and under active treatment with oncology. Primary malignancy is breast cancer. she follows with oncology and is on oral chemotherapy. rest of GI ros are unremarkable. Allergies Allergy/AdvReac Type Severity Reaction Status Date / Time metformin AdvReac Intermediate RESTLESSNES Verified 08/07/23 15:38 S Home Medications Medication Instructions Recorded Confirmed Type gabapentin 300 mg capsule 300 mg PO TID #90 caps 09/27/22 08/07/23 Rx pantoprazole 40 mg tablet,delayed 40 mg PO QAM #90 tabs 09/27/22 08/07/23 Rx release (Protonix) atorvastatin 40 mg tablet 40 mg PO HS #90 tabs 10/07/22 08/07/23 Rx blood sugar diagnostic (OneTouch #100 ea 10/07/22 07/24/23 Rx Ultra Test strips) cyanocobalamin (vitamin B-12) 1,000 mcg IM MONTHLY #1 ea 10/07/22 08/07/23 Rx 1,000 mcg/mL injection kit diltiazem HCl 360 mg capsule,24 360 mg PO QAM #90 caps 10/08/22 08/07/23 Rx hr,extended release vortioxetine 20 mg tablet 20 mg PO QAM 11/22/22 08/07/23 History (Trintellix) OneTouch Delica Plus Lancet 33 #300 ea 01/09/23 07/24/23 Rx gauge (lancets) albuterol sulfate 90 mcg/actuation 2 puff inhalation Q4 PRN Shortness 02/24/23 08/07/23 Rx aerosol inhaler Of Breath Or Wheezing #8.5 grams apixaban 5 mg tablet (Eliquis) 5 mg PO BID #60 tabs 02/24/23 08/07/23 Rx capecitabine 150 mg tablet (Xeloda) 150 mg PO BID 02/28/23 08/07/23 History diphenoxylate-atropine 2.5 1 tab PO QID PRN Diarrhea 02/28/23 08/07/23 History mg-0.025 mg tablet insulin glargine 100 unit/mL 20 unit subcut QPM 02/28/23 08/07/23 History subcutaneous solution (Lantus U-100 Insulin) meclizine 25 mg tablet 25 mg PO DAILY PRN 02/28/23 08/07/23 History DIZZINESS/VERTIGO losartan 25 mg tablet 25 mg PO DAILY #90 tabs 05/09/23 08/07/23 Rx pen needle, diabetic 32 gauge x #100 ea 06/12/23 07/24/23 Rx 32" (Easy Comfort Pen [place]) tramadol 50 mg tablet 50 mg PO TID PRN pain (scale score 07/29/23 08/07/23 Rx 7-10) #90 tabs levothyroxine 25 mcg tablet 37.5 mcg (1.5 x 25 mcg) PO QAM 07/30/23 08/07/23 Rx #135 tabs hydroxyzine HCl 10 mg tablet 10 mg PO HS 08/07/23 08/07/23 History tirzepatide 5 mg/0.5 mL 5 mg subcut WK 08/07/23 08/07/23 History subcutaneous pen injector (Bibuntawnyro) Patient History Medical History Breast skin changes Human metapneumovirus pneumonia Infected venous access port 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 History of blood transfusion Closed fracture of left distal fibula Breast cancer (12/18/15) "Abnormal left breast mammogram Status post core needle biopsy 12/18/2015 revealing infiltrating ductal carcinoma Estrogen receptor positive, progesterone receptor positive, HER-2/op negative Status post left needle localization lumpectomy and sentinel lymph node biopsy 01/04/2016 Stage pT1c pN0M0 Status post completion of radiation therapy 02/13/2016 received 3850 cGy utilizing accelerated partial breast irradiation." On 01/17/16 14:10 Deidre Orta wrote "Abnormal left breast mammogram Status post core needle biopsy 12/18/2015 revealing infiltrating ductal carcinoma Estrogen receptor positive, progesterone receptor positive, HER-2/po negative Status post left needle localization lumpectomy and sentinel lymph node biopsy 01/04/2016 Stage pT1c pN0M0" Generalized weakness Lung nodules monitoring Urinary frequency Pacemaker 2019, follows with Dr Ramires. checks Q6 months. Neuropathy Anxiety Aortic stenosis Mild aortic stenosis (MERLENE 1.6cm2; MG 7.8mmHg) per 12/2019 echo Diabetes mellitus, type 2 IDDM Degenerative disc disease Hx of cardiac pacemaker Implanted 2019 (tachy-monica syndrome), [place] [employer] device Follows with Dr. Ramires Liver mass Pt denies but 05/17/20 PET scan shows 2.5 right hepatic lobe mass consistent with known hepatic metastasis Anemia h/o blood transfusions Infiltrating ductal carcinoma of left breast Initial Dx 2016- s/p lumpectomy, XRT and anastrozole Metastatic breast cancer 03/2020, follows with [facility] Atrial fibrillation follows with Dr Ramires Hypothyroidism Peripheral neuropathy Hands (B/L CTS) Obstructive sleep apnea "Resolved" s/p gastric bypass (? retested) Hypercholesterolemia Gastroesophageal reflux disease controlled, stable per pt Depression Chronic pain Cervical spine disease Full ROM per pt Surgical History H/O breast biopsy (05/29/23) Skin, left breast, 2 punch biopsies: In office procedure Dr. Alvarez - Fibrosing dermatitis. - See comment Status post revision of total replacement of right knee History of removal of Port-a-Cath (01/11/22) Infected port right anterior chest removed Dr. Shah S/P cardiac pacemaker procedure 2019 History of surgery Right knee TKA revision with spacer (07/11/2021): SAB at L3-4 (x2 attempts) + PNB at [facility]. No issues noted per post-op anesthesia progress note. History of carpal tunnel surgery of left wrist 06/2021 History of carpal tunnel surgery of right wrist Port-A-Cath in place hx - 05/2020 since removed d/t infection at port 12/2021 History of colonoscopy History of evacuation of hematoma Hematoma right breast and right chest 08/31/13 Dr. Shah H/O bilateral hip replacements Status post repair of ventral hernia History of total knee arthroplasty R/L Status post total abdominal hysterectomy and bilateral salpingo-oophorectomy Status post lumbar spine surgery for decompression of spinal cord Status post partial mastectomy of left breast Status post panniculectomy History of section x1 Status post laparoscopic cholecystectomy Status post gastric bypass for obesity Status post arthroscopy of left shoulder Status post appendectomy Family History Unknown Breast cancer Emphysema lung Mother Diabetes Heart disease Father Heart disease Other No family history of adverse response to anesthesia Denies family history of Ovarian cancer Prostate cancer Coronary heart disease Colorectal cancer Social History Smoking Status: Former smoker Tobacco Type: Cigarettes packs per day: 2; Second Hand Exposure: No; Do You Dip or Chew Tobacco: No; Hx Alcohol Use: No Hx Substance Use: No Preferred Language: Puerto Rican Communication Ability: Effective Visual Impairment: No Limitations Hearing Ability: Normal 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 Beliefs That Will Affect Care: None marital status: Current Living Situation: Spouse current occupational status: retired Feels Safe at Home: Yes Childhood Exposure to Second-Hand Smoke: Yes Diet: diabetic caffeine: Yes Dental Care, Regularly: No Physical Activity Frequency: 1-2 Times per Week Seatbelt Use: always Sunscreen Use: No Assistive Devices: Glasses and Walker Review of Systems Review of Systems: All systems reviewed & are unremarkable except as noted in HPI & below Physical Exam Constitutional: WD/WN, vitals as above Respiratory: normal respiratory effort, lungs clear to auscultation Cardiovascular: RRR, no murmur, no edema Gastrointestinal (Abdomen): diffuse abdominal pain, worse over the lower abdomen. no guarding. soft. normal bowel sounds. Skin: no rashes, warm and dry Psychiatric: Orientation: alert and oriented x 3 Results & Data Vital Signs (Past 12 Hours) Vital Signs Temp Pulse Resp BP Pulse Ox O2 Del Method 08/08/23 08:00 Room Air 08/08/23 07:54 97.7 F 95 H 18 139/75 95 Room Air Diagnostic Findings CT SCAN OF THE ABDOMEN AND PELVIS WITHOUT IV CONTRAST CLINICAL HISTORY: Vomiting. COMPARISON STUDY: Abdominal CT dated 04/24/2023. TECHNIQUE: CT scan of the abdomen and pelvis is performed from the lung bases to the proximal femora. Images are reviewed in the axial, sagittal, and coronal planes. IV contrast was not administered for this examination. A dose lowering technique was utilized adhering to the principles of ALARA. The examination is degraded by metallic streak artifact from extensive spinal hardware and bilateral hip arthroplasties. CT DOSE: 853.39 mGy.cm FINDINGS: Lung bases: The heart is enlarged and without pericardial effusion. Pacemaker leads are in place. There are coronary artery calcifications. There is diminished attenuation of the cardiac blood pool is compared to myocardium suggesting anemia. There are scattered calcified granulomas. No airspace consolidation or pleural effusion is identified. Liver: The unenhanced liver is normal in size, contour, and attenuation. There is no intrahepatic biliary ductal dilatation. There is evidence of multifocal hepatic metastatic disease. This has progressed as compared to 04/24/2023. At least 5 right lobe lesions are identified and measure up to 4.1 cm. Gallbladder: Surgically absent noting clips in the gallbladder fossa. There is a calcified gallstone within a cystic duct remnant seen on image #85. Spleen: Normal in size and attenuation. Pancreas: The unenhanced pancreas is moderately atrophic and grossly unremarkable. Adrenal glands: Unremarkable. Kidneys: The unenhanced kidneys are normal in size and without hydronephrosis. There are at least 3 nonobstructing right renal calculi which measure up to 6 mm. At least 4 nonobstructing calculi are seen in the left kidney and measure up to 9 mm. No ureteral stone is seen. There is no evidence of contour deforming renal mass lesion. Abdominal vasculature: The abdominal aorta is normal in course and caliber noting mild atherosclerotic calcification. Stomach and bowel: A tiny hiatal hernia is noted. Postoperative change is noted in the stomach. A small bowel anastomosis is seen in the pelvis. There is mild colonic fecal retention. No bowel obstruction is identified. The appendix is not visualized. Peritoneum: There is no intraperitoneal free air or abdominal ascites. There is evidence of previous ventral hernia repair. Lymphadenopathy: None. Pelvic viscera: Evaluation of the pelvis is degraded by streak artifact from bilateral hip arthroplasties. The bladder is normal as visualized. The uterus is surgically absent. No adnexal lesion is seen. Skeletal structures: The skeletal structures are osteopenic. Spondylotic and extensive postsurgical changes noted in the lumbar spine. There are chronic/healed right-sided rib fractures. No lytic or blastic lesions are seen. Bilateral hip arthroplasties are in place IMPRESSION: 1. No acute infectious or inflammatory findings are identified in the abdomen or pelvis. 2. Multifocal hepatic metastatic disease has progressed as compared to 04/24/2023. 3. Cardiomegaly and cardiac pacemaker. 4. There is a large gallstone contained within a dilated cystic duct remnant. 5. Bilateral nephrolithiasis. 6. Additional findings as above. ACT 112: Negative or not required by law. Electronically signed by: Noe Carrillo M.D. 08/07/2023 2:12 PM Coding Level of Care Code 42076 INT INP/OBS CARE 2/55MIN Diagnoses Abdominal pain R10.30 Abdominal location: lower abdomen, unspecified Nausea & vomiting R11.2 Vomiting type: unspecified (1) Abdominal pain Abdominal location: lower abdomen, unspecified Qualified Code(s): R10.30 - Lower abdominal pain, unspecified (2) Nausea & vomiting Vomiting type: unspecified Qualified Code(s): R11.2 - Nausea with vomiting, unspecified
[2023-08-08] MEDS: CYANOCOBALAMIN 1000 MCG/ML VIAL IM SCH (10:22)
[2023-08-08 10:56] LABS: Ferritin 343.9 ng/ml (8-388)
[2023-08-08] MEDS: FAMOTIDINE 20 MG TAB PO SCH ×2 (11:21→20:56)
[2023-08-08] MEDS: DOCUSATE SODIUM 100 MG CAP PO SCH (20:54)
[2023-08-08] MEDS: PHENAZOPYRIDINE HCL 100 MG TAB PO PRN (20:54)
[2023-08-09 06:24] LABS: Basophils # (auto) 0.05 K/uL (0.00-0.20); Eosinophils # (auto) 0.08 K/uL (0.00-0.50); Eosinophils % (auto) 1.6 %; Hematocrit (blood only) 28.7 % (37.0-47.0); Hemoglobin 9.4 g/dl (12.0-16.0); Lymphocytes % (auto) 24.7 %; Mean Corpuscular Hemoglobin 33.9 pg (25.0-34.0); Mean Corpuscular Hgb Conc 32.8 g/dL (32.0-36.0); Mean Corpuscular Volume 103.6 fL (80.0-100.0); Mean Platelet Volume 11.1 fL (9.4-12.4); Monocytes # (auto) 0.66 K/uL (0.11-0.59); Monocytes % (auto) 13.6 %; Neutrophils # (auto) 2.86 K/uL (1.40-6.50); Neutrophils % (auto) 59.1 %; Platelet Count 245 K/uL (130-400); RDW Coefficient of Variation 19.2 % (11.5-14.5); RDW Standard Deviation 73.4 fL (36.4-46.3); Red Blood Count 2.77 M/uL (4.20-5.40); White Blood Count 4.85 K/ul (4.8-10.8)
[2023-08-09 06:44] LABS: Albumin Globulin Ratio 1.9 (0.9-2); Albumin Level 3.7 gm/dl (3.4-5.0); BUN Creatinine Ratio 10.4 (10-20); Bilirubin,Total 0.9 mg/dl (0.2-1.0); Calcium 7.7 mg/dl (8.6-10.3); Creatinine Clr Calc Pharmacy 88.7 ml/min; Est GFR (African American) 111.2 ml/min; Magnesium 1.8 mg/dl (1.7-2.4); Potassium 3.7 mmol/L (3.5-5.1); Total Protein 5.7 gm/dl (6.0-8.3)
[2023-08-09 07:00] LABS: Folate (Folic Acid),Ser orPlas > 22.30 ng/ml (>5.38)
[2023-08-09 07:01] LABS: Vitamin B12 > 1500 pg/ml (180-914)
[2023-08-09 07:07] LABS: T4 Free Thyroxine 1.24 ng/dl (0.61-1.60)
[2023-08-09] MEDS: ONDANSETRON INJ 2 MG/ML 2 ML VIAL IV PRN (09:46)
--- NOTE | 2023-08-09 10:42 | Hospitalist Progress Note ---
Date of Service August 09, 2023 Assessment & Plan (1) Nausea & vomiting: Plan: Assessment: Refractory nausea and vomiting. On admission suspected 2nd to radha given recent start when unable to get her Trulicity and had worsened over ~2 weeks when started (last dose last Friday) - this has been discontinued Urine cx pinpoint growth however holding off additional abx for now, not septic and will await results CTAP on admission -No acute infectious or inflammatory findings are identified in the abdomen or pelvis. -Multifocal hepatic metastatic disease has progressed as compared to 04/24/2023. -Cardiomegaly and cardiac pacemaker, large gallstone contained within a dilated cystic duct remnant, b/l nephrolithiasis, notable fecal retention but no evidence for bowel obstruction GI consulted on admission for concerns GI bleeding/PUD, PPI increased to BID and pepcid added BID and monitoring over weekend initially if not improved Given clear liquid diet, tolerated and advanced to full liquid without issue s/p 1L IVF and keeping up w/ PO, does not appear to be dehydrated on exam, no further IVF ordered Advanced to DM/AHA diet for this morning 08/08 but had emesis x 1 however did NOT want to back down her diet. No further emesis and zofran effective and to continue zofran as needed. Discussed w/ patient about progression of her hepatic lesions on admission, was upset/tearful, support provided. She was to have f/u appt Dr De Luna for repeat imaging in next 2 weeks however already have CTAP as above. --> Dr De Luna consulted, do suspect symptoms from progression of her disease, Xeloda not appropriate to continue and arranging f/u as above Monitoring/symptom control for today/through weekend and arranging f/u to begin treatment this upcoming week -- see oncology note WBC wnl, afebrile. LFTs wnl Monitor labs/exam on repeat (2) Metastatic breast cancer: Plan: Stage IV metastatic breast carcinoma with mets to the liver. Follows with oncology. LFTs wnl on check CTAP on admission w/ progression of metastatic disease on Xeloda, discussed w/ patient 08/08 as was unaware of findings on admission Dr De Luna consulted (prior followed by Dr Hernandez most recently prior to him leaving, and patient to have appt for scans in upcoming weeks -- see above) -- appreciate assistance/recommendations Genetic testing to be performed to see about targeted agents for mutation in ESR 1 of PIK 3CA gene per Dr De Luna Obtaining CT chest for eval prior to her possibly starting new chemo this upcoming week, oncology arranging, ?doxorubicin vs other. Antiemetics, pain control as needed -- benefit of dilaudid over her morphine and was changed 08/07 Planning on close f/u this upcoming week (3) Urinary tract infection: Plan: ?possible vs cystitis -- ongoing dysuria symptoms/suprapubic discomfort. has been on multiple abx for UTI recently through [place] [facility] -- Does have nonobstructing kidney stones bilaterally that need f/u Repeat UA on admit, no bacteria noting had been on abx multiple courses per her outpt provider/specialist Monitor final urine cx -- currently pin-point growth Pyridium prn for bladder spasm/discomfort, pain control Monitor (4) Abdominal pain: Plan: as above, multifactorial however worsened since starting mounjaro and would avoid this. suspect most of ongoing abdominal symptoms prior to worsening once placed on Mounjaro from her progressive metastatic disease as above Continue PPI BID for now, pepcid as recommended by GI. Did tolerate diet when prior was unable. Symptom control for above as outlined and diet as tolerated (5) Chronic GERD: Plan: on ppi once daily as above, GI consulted and PPI increased to BID and added pepcid and to monitor through and plan for EGD Friday w/ Dr Rojas if ongoing issues --do not suspect this needs done in light of progressive disease as above and will continue discussions fecal occult testing NEGATIVE (6) Acute dehydration: Plan: IVF as above, poor PO intake for several days w/ nausea and vomiting and concerns related to recently starting mounjaro for DM control improvement and will hold off addtional fluids for now (7) Hypothyroidism: Plan: TSH wnl on check, T3/t4 not low Remains on 37.5mcg daily (8) Pain due to interstitial cystitis: Plan: pyridium added, monitor urine cx in f/u (9) Diabetes type 2, controlled: Plan: a1c 5.5 -- was on Trulicity but was not able to obtain and reason for recent rx mounjaro as above. Would NOT resume her mounjaro at [facility] as discussed. Will see where has Trulicity if possible and send rx to pharmacy but can monitor needs while inpatient glargine 5u BID, sliding scale insulin for now BSGs controlled, monitor (10) Atrial fibrillation: Plan: Eliquis BID continued TSH wnl no palpitations/SOB/CP reported or need to have on monitor at present (11) Constipation: Plan: as above, ?related to mounjaro vs other. poor PO intake over several days, IVF as above. Added colace BID +BM reported, diarrhea. Check cdiff/pcr given recent PPI increase but suspect from being backed up. monitor (12) Recurrent UTI (urinary tract infection): Plan: following by [facility], recently seen/abx as above (13) Anemia: Plan: chronic, likely 2nd to metastatic breast ca as above to liver, progressive since prior imaging on admission CT Iron studies to be checked, will add B12/folate to AM labs given MCV >100 --> iron studies w/o significant deficiency. b12/folate replete -- periph smear pending given MCV >100 but likely due to her progressive met disease as above TSH borderline but wnl, T3/t4 wnl fecal occult added for completeness -- NEGATIVE Eliquis continued as above hgb remaining stable s/p 1L IVF on admission Monitor (14) Hypokalemia: Plan: low on admit 3.2 repeat lower 2.8 -- likely from n/v, poor PO intake x 2-3 days. mag wnl PO/IV replacement ordered K 3.7 on AM labs, tolerating PO alright without significant emesis Monitor PO intake/BMP in AM Plan DVT proph: eliquis BID continued inpatient stay sx control, CT chest to eval met disease likely dc friday w/ coordination oncology to begin treatment for progressive findings despite oral chemotherapy treatment Admission and Anticipated Discharge Date Admission Date: August 07, 2023 Supervising Physician Co-Signing Physician Notes The patient was not seen by me. The chart was reviewed. Case discussed with AZEEM Kearney. Agree with assessment and plan Subjective Tolerated full liquids last night/wanted advancement of diet. Had episode of vomiting reported this morning w/ advancement of diet but became very upset when discussed backing down on the diet given symptoms returned. She reports she had tolerated her eggs/didn't eat much toast but then had some vomiting following her coffee. Remains on PPI/pepcid BID. Discussed potential EGD on Friday. She is upset they did not do this on Friday and will plan for NPO for ongoing symptom on Friday night into friday for EGD. Her pain is in suprapubic region but also having discomfort to her epigastric area. Had episode diarrhea reported. Checking c.diff/PCR given prior constipation however now on increased PPI. Discussed urine w/ pin-point growth but holding off antibiotics for now until finalized to prevent excessive antibiotics when not warranted. No fever/chills. Discussed can be some time off the mounjaro for symptoms of such to resolve but will continue current diet as requested with zofran as needed given she reports resolution in symptoms of nausea/vomiting this morning since being provided. She notes her emesis was coffee and bile colored. She reports seeing Dr De Luna next month for repeat scans to see if her cancer spread. Discussed imaging on admission notes some progression but no new mets to distant areas, she was upset by this/crying cannot and has grandsons to live for. Support provided and discussed will consult Dr De Luna while inpatient for dis cussion prior to her upcoming appointment given her concerns/anxiety regarding this as she was supposed to have repeat imaging next month. Questions/concerns addressed at this time. Physical Exam Physical Exam: General: 73yo female sitting up in bed on the phone, NAD, does not want to back down on her diet, still with some burning with occasion at times HEENT: head atraumatic, normocephalic, mm improved, trachea midline Resp; even/unlabored, slightly diminished in the bases but no w/c/r, on room air CV: RRR, +systolic murmur, no significant LE edema, calves nontender, pulses palpable GI: +BS throughout, +decreased tenderness epigastric region as well as suprapubic however generalized discomfort reported (overall stable). abd soft, no guarding/rigidity/warmth : +suprapubic discomfort MSK/Neuro: nonfocal, follows commands, strength equal bilaterally Psych: AOx3, cooperative tearful when discussing imaging with concerns for progression of her metastatic disease, support provided Results & Data Results & Data Vital Signs (Past 12 Hours) Vital Signs Temp Pulse Resp BP Pulse Ox O2 Del Method 08/09/23 08:03 36.7 C 73 16 171/79 H 98 Room Air 08/09/23 07:00 Room Air Laboratory Results 08/09/23 08/09/23 08/09/23 Range/Units 11:25 08:22 07:44 WBC (4.8-10.8) K/ul RBC (4.20-5.40) M/uL Hgb (12.0-16.0) g/dl Hct (37.0-47.0) % MCV (80.0-100.0) fL MCH (25.0-34.0) pg MCHC (32.0-36.0) g/dL RDW Std Deviation (36.4-46.3) fL RDW Coeff of Thompson (11.5-14.5) % Plt Count (130-400) K/uL MPV (9.4-12.4) fL Immature Gran % (Auto) % Neut % (Auto) % Lymph % (Auto) % [place] % (Auto) % Eos % (Auto) % Baso % (Auto) % Neut # (Auto) (1.40-6.50) K/uL Lymph # (Auto) (1.20-3.40) K/uL [place] # (Auto) (0.11-0.59) K/uL Eos # (Auto) (0.00-0.50) K/uL Baso # (Auto) (0.00-0.20) K/uL Immature Gran # (Auto) (0.01-0.20) K/uL Sodium (136-145) mmol/L Potassium (3.5-5.1) mmol/L Chloride (98-107) mmol/L Carbon Dioxide (21-32) mmol/L Anion Gap (3-11) BUN (6-23) mg/dl Creatinine (0.6-1.2) mg/dl Est Cr Clr Drug Dosing ml/min Est GFR ( Amer) ml/min Est GFR (Non-Af Amer) ml/min BUN/Creatinine Ratio (10-20) Glucose (70-99(Fasting)) mg/dl POC Glucose 129 H 88 (70-99) mg/dl Calcium (8.6-10.3) mg/dl Magnesium (1.7-2.4) mg/dl Total Bilirubin (0.2-1.0) mg/dl AST (13-39) U/L ALT (7-52) U/L Alkaline Phosphatase (34-104) U/L Total Protein (6.0-8.3) gm/dl Albumin (3.4-5.0) gm/dl Globulin (2.5-4.0) gm/dl Albumin/Globulin Ratio (0.9-2) Vitamin B12 (180-914) pg/ml Folate (>5.38) ng/ml Free T4 (0.61-1.60) ng/dl Free T3 (2.3-4.2) pg/ml Stool Occult Bld Scrn Negative (Negative) 08/09/23 08/08/23 08/08/23 Range/Units 05:43 20:46 16:39 WBC 4.85 (4.8-10.8) K/ul RBC 2.77 L (4.20-5.40) M/uL Hgb 9.4 L (12.0-16.0) g/dl Hct 28.7 L (37.0-47.0) % MCV 103.6 H (80.0-100.0) fL MCH 33.9 (25.0-34.0) pg MCHC 32.8 (32.0-36.0) g/dL RDW Std Deviation 73.4 H (36.4-46.3) fL RDW Coeff of Thompson 19.2 H (11.5-14.5) % Plt Count 245 (130-400) K/uL MPV 11.1 (9.4-12.4) fL Immature Gran % (Auto) 0.0 % Neut % (Auto) 59.1 % Lymph % (Auto) 24.7 % [place] % (Auto) 13.6 % Eos % (Auto) 1.6 % Baso % (Auto) 1.0 % Neut # (Auto) 2.86 (1.40-6.50) K/uL Lymph # (Auto) 1.20 (1.20-3.40) K/uL [place] # (Auto) 0.66 H (0.11-0.59) K/uL Eos # (Auto) 0.08 (0.00-0.50) K/uL Baso # (Auto) 0.05 (0.00-0.20) K/uL Immature Gran # (Auto) 0.00 L (0.01-0.20) K/uL Sodium 141 (136-145) mmol/L Potassium 3.7 D (3.5-5.1) mmol/L Chloride 111 H (98-107) mmol/L Carbon Dioxide 25 (21-32) mmol/L Anion Gap 5 (3-11) BUN 5 L (6-23) mg/dl Creatinine 0.48 L (0.6-1.2) mg/dl Est Cr Clr Drug Dosing 88.7 ml/min Est GFR ( Amer) 111.2 ml/min Est GFR (Non-Af Amer) 96.0 ml/min BUN/Creatinine Ratio 10.4 (10-20) Glucose 80 (70-99(Fasting)) mg/dl POC Glucose 163 H 84 (70-99) mg/dl Calcium 7.7 L (8.6-10.3) mg/dl Magnesium 1.8 (1.7-2.4) mg/dl Total Bilirubin 0.9 (0.2-1.0) mg/dl AST 27 (13-39) U/L ALT 29 (7-52) U/L Alkaline Phosphatase 84 (34-104) U/L Total Protein 5.7 L (6.0-8.3) gm/dl Albumin 3.7 (3.4-5.0) gm/dl Globulin 2.0 L (2.5-4.0) gm/dl Albumin/Globulin Ratio 1.9 (0.9-2) Vitamin B12 > 1500 H (180-914) pg/ml Folate > 22.30 (>5.38) ng/ml Free T4 1.24 (0.61-1.60) ng/dl Free T3 3.13 (2.3-4.2) pg/ml Stool Occult Bld Scrn (Negative) Diagnostic Findings Chest CT 08/09/23 11:50 CT OF THE CHEST WITH IV CONTRAST CLINICAL HISTORY: Breast cancer. Evaluate metastatic disease. COMPARISON STUDY: Chest CT April 24, 2023. TECHNIQUE: Following IV administration of 93 mL of Optiray, helical axial images of the chest were obtained. Sagittal and coronal reconstructions were viewed as well as maximal intensity projections on an independent 3-D workstation. Automated exposure control was utilized for the study. A dose lowering technique was utilized adhering to the principles of ALARA. CT DOSE: 569.9 mGy.cm FINDINGS: No enlarged axillary, mediastinal or hilar lymph nodes are present. There is a dual-lead left subclavian pacemaker. Lumbar spine fusion hardware is partially imaged. The heart is mildly enlarged. There is no pericardial effusion. No pulmonary emboli are identified. There is no consolidation to suggest pneumonia. Multiple small noncalcified and calcified pulmonary nodules are unchanged from prior exams. These measure up to 5 mm. No new nodules are present. There is no pneumothorax or pleural effusion. Old bilateral rib fractures are present. There are no suspicious lesions within the bony thorax. Multiple hepatic lesions have increased in size since CT of April 24, 2023. Index right hepatic lobe lesion on image 178 of 213 measures 3.7 cm. This previously measured 2.[address] of April 24, 2023. There are postoperative findings within the stomach. A gallstone within an apparent dilated cystic duct remnant is present. IMPRESSION: 1. No evidence of metastatic disease within the chest. 2. Progression of hepatic metastases since CT of April 24, 2023, as described above. ACT 112: Negative or not required by law. Electronically signed by: Eladio Keane M.D. 08/09/2023 2:24 PM PG Care Time/CCT Total # of Minutes Spent Total Time Spent with Patient: Total time spent is greater than 50% in coordination of care (as documented) at patient's floor/unit and/or counseling patient: Coding Level of Care Code 32800 SUB INP/OBS CARE 3/50MIN Diagnoses Nausea & vomiting R11.2 Vomiting type: unspecified Metastatic breast cancer C50.919 Urinary tract infection N30.01 Hematuria presence: with hematuria Urinary tract infection type: acute cystitis Abdominal pain R10.30 Abdominal location: lower abdomen, unspecified Chronic GERD K21.9 Acute dehydration E86.0 Hypothyroidism, unspecified type E03.9 Hypothyroidism type: unspecified Pain due to interstitial cystitis N30.10 Controlled type 2 diabetes mellitus without complication, with long-term current use of insulin E11.9; Z79.4 Diabetes mellitus complication status: without complication Diabetes mellitus terminal supervisor insulin use: with terminal supervisor use Atrial fibrillation, unspecified type I48.91 Atrial fibrillation type: unspecified Constipation K59.00 Recurrent UTI (urinary tract infection) N39.0 Anemia D64.9 Anemia type: unspecified type Hypokalemia E87.6 (1) Nausea & vomiting Vomiting type: unspecified Qualified Code(s): R11.2 - Nausea with vomiting, unspecified (3) Urinary tract infection Hematuria presence: with hematuria Urinary tract infection type: acute cystitis Qualified Code(s): N30.01 - Acute cystitis with hematuria (4) Abdominal pain Abdominal location: lower abdomen, unspecified Qualified Code(s): R10.30 - Lower abdominal pain, unspecified (7) Hypothyroidism Hypothyroidism type: unspecified Qualified Code(s): E03.9 - Hypothyroidism, unspecified (9) Diabetes type 2, controlled Diabetes mellitus complication status: without complication Diabetes mellitus group home insulin use: with group home use Qualified Code(s): E11.9 - Type 2 diabetes mellitus without complications; Z79.4 - [facility] (current) use of insulin (10) Atrial fibrillation Atrial fibrillation type: unspecified Qualified Code(s): I48.91 - Unspecified atrial fibrillation (13) Anemia Anemia type: unspecified type Qualified Code(s): D64.9 - Anemia, unspecified
--- NOTE | 2023-08-09 11:57 | Oncology Consultation ---
Date of Consultation August 09, 2023 Assessment & Plan (1) Metastatic breast cancer: I reviewed the latest CT of the abdomen pelvis with the patient and also called her daughter and informed her about the findings. It is clear that the patient seems to be progressing at this time. In the hospital I recommended that her capecitabine needs to be stopped as it is ineffective in controlling her cancer. I briefly discussed Of treatment which could include a medication like liposomal doxorubicin. I will try to arrange for that once she is discharged from the hospital. I will also get [employer] gene sequencing testing on the cancer specimen to look for targeted agents especially if there is a mutation in ESR 1 or PIK 3 CA gene. Previously done [id number] test revealed mutation only in T p53 gene. This was discussed briefly with the patient's daughter as well over a phone call. Rest of the management per our hospital internal medicine colleagues. I did discuss the utility of getting a CT of the chest and getting a baseline before I start her on liposomal doxorubicin or Of chemotherapeutic agents. Plan Thank you for this interesting oncological consult. A total of 60 minutes was spent in counseling, coordination of care review of prior records including a phone call with her daughter. History of Present Illness Reason for Consultation: Breast Cancer Attending Physician: Fransisco Quispe MD History of Present Illness Diagnosis: Localized breast cancer diagnosed 2016 Metastatic Breast Cancer (hepatic lesion), ER 100%, diagnosed Current Treatment: Abraxane weekly x 5 cycles, started 06/14/20 - 10/18/20 Started Ibrance + Faslodex in for progressive disease. Started Xeloda in for progressive disease. Stable imaging with mid-2022 diarrhea, 10-20 lb weight loss leading to regular use of antimotility agents. 11/05/2022 start 4-week "holiday" from her Xeloda 01/21/2023 resumed capecitabine at reduced dose (1000 mg twice daily days 1 through 14 of a 21-day cycle) Guardant 360 12/02/2022 does not indicate major role for ICI or standard targeted options MSI-high NOT detected TMB could not be assessed Only relevant identified genomic alteration was TP53 Stable disease on CT scans or only slight progression. Mammography shows some skin thickening of the left breast but this is unassociated with major symptoms or changes on exam. Will reassess in 3-monthS Diagnosis History: 1. She was initiallydiagnosed with Stage I invasive ductal carcinoma of the left breast in December/2015 following abnormal findings on mammogram. Pathology of initial diagnosis revealed ER/PA positive, HER2 negative disease. 2. She underwent partial mastectomy with Dr. Soto in December/2015; had negative sentinel LN. 3. She completed adjuvant radiation therapy; she also started anastrozole 1 mg PO daily. 4. She was lost to follow up in oncology for ~2 years for unclear reasons; the patient presented to [facility] with a fall leading to scalp laceration and acute blood loss anemia; CT AP 04/01/20 showed 2.6 cm ill defined hypodense lesion within the right hepatic lobe. 5. UnderwentFNA of liver mass on 04/05/20, confirmed metastatic adenocarcinoma, ER 100%, PA 0% and HER2 negative. 6. CT chest 05/01/20 showed 2.5 cm hepatic mass; stable enlarged LN at left neck base measuring 12 x 9 mm; stable 5 mm nodule within RLL. 7. PET/CT 05/17 showed small increased FDG avidity fusing to the inferior aspect of the thyroidgland in the midline; FDG activity within the right breast; FDG avid 2.5 cm mass within the right hepatic lobe. 8. Follow up thyroid US showed 1.6 x 1.2 x 0.8 cm hyperechoic nodule along inferior aspect of the isthmus. FNA of mass on 06/27/20 showed benign follicular findings. 9. Evaluated by Dr. Light at [facility]; he did not recommend metastasectomy of liver metastases. 10.Weekly Abraxane start06/14/20 completing 5 of 6 planned cycles. 11.CT CAP 09/01/20 showed nosignificant change compared to 08/17/20; no evidence of metastatic disease within the chest. 2.1 cm right lobehepatic lesion has notchanged. No evidence ofnew or progressive disease. 12. She was admitted to hospital in October/2020 followed by discharge to SNF. Held the final cycle of Abraxane (per patient choice and d/t weakness/worsening neuropathy). 13.PET/CT scan 02/07 (following 5 cycles) with no evidence of metastatic disease, in particular previously noted hepatic and thyroid foci of uptake have resolved. 14.CT CAP 05/22/21 with new 1.6 cm ill defined lesion within right hepatic lobe, highly suspicious for metastatic focus; decrease in size of biopsy proven metastatic lesion within right hepatic lobe; low density trace fluid collection within left lower flank/hip measuring 14 cm (possibly related to hematoma). Liver lesion is concerning for progression of her disease. 15.Discontinued Letrozole; started Ibrance + Faslodex in . 16.CT CAP 08/30/21 with no evidence of progressive metastatic disease - two hepatic masses are similar to prior and subQ fluid collection in the left supragluteal tissues has significantly decreased in size.Bone scan 08/30/21 neg for metastatic disease. 17.CT chest 11/27 neg for metastatic disease. 18.CT CAP 03/13/22 with 2 right hepatic lobe opacities, modestly increased in size compared to August/2021 along with new 1.0 cm right hepatic lobe lesion possibly representing new metastatic focus. 19.Started Xeloda in for progressive disease. 20. CT AP 07/01/22 with stable hepatic disease, no evidence of progression. 21.Xeloda suspended 11/05/2022 for diarrhea/weight loss Current status: Ca27.29 U/mL 04/26/2020 152 12/01/2020 30 05/23/2021 64 12/03/2021 82 07/24/2022 75 09/24/2022 65 01/07/2023 82 02/27/2023 108 03/24/[address] CAP 09/17/22 AND 10/31/2022 CT abd/pelvis neg for progression of metastatic disease. 01/08/2023 CT chest/abdomen/pelvis showed a small intramuscular hemorrhage in the right iliac us and adductor musculature but otherwise was unchanged from previous. Bilateral nephrolithiasis and stable appearing hepatic metastases were noted. No signs of progressive metastatic dz 04/03/2023UNILATERALLEFTDIGITALDIAGNOSTICMAMMOGRAMTOMOSYNTHESISWITHSYNTH [id number]: ...mildtomoderatediffusel eftbreastskinthickening,mostprominentlaterally,notsignificantlychanged ephoibnvkzifm29/6/2023exam. . . . There is mild to moderate skin thickening seen throughout the left breast, most prominent in the left 9:00, 3:00, and central breast where the skin measures approximately 4 mm in thickness.. . . IMPRESSION: ACR BI-RADS CATEGORY 4: SUSPICIOUS, ULTRASOUND ACR BI-RADS CATEGORY 4: SUSPICIOUS Newmildtomoderatediffuseleftbreastskinthickening,withnoclearetiology evident. PET/CT denied by insurance. 04/24/[address] Stable pulmonary nodules as above. No evidence of recurrent or metastatic disease. 04/24/2023 CT abd/pelvis 1. Minimal increase in size of a few hepatic metastases [largest 1.8 >> 2.0 cm] , as described above. No new hepatic lesions. 2. No abdominal or pelvic lymphadenopathy. 3. No suspicious osseous lesions identified. 4. Bilateral nephrolithiasis. # Anemia. Rising Hgb, nutritional studies stable # Diarrhea/retching/nonbloody vomitus - question whether this may be a consequence of her ongoing Xeloda, see discussion above See 11/20/2022 GI consultation (Dr. Rojas) 11/27/2022 colonoscopy showed a 3 mm polyp in the cecum, hemorrhoids, relatively unremarkable colonic mucosa PATHOLOGY: - Multiple benign strips of colonic mucosa with no pathologic diagnoses are seen. - The clinical history of fecal incontinence and diarrhea is noted. Fluid aspiration negative for C. difficile, Campylobacter, Shigella, Salmonella with stool calprotectin pending Only occasional symptoms with current schedule of capecitabine # Hypokalemia. Noted on 12/02/2022 labs and a probable consequence of her diarrhea, supplemented intravenously 12/03/2022 and placed on oral therapy. The patient is well-known to me from the clinic. I saw her about 10 days ago and at that time I have requested restaging CT of the chest abdomen pelvis given that her last set of scans was in April 2023. Since then the patient developed severe nausea and vomiting which was thought to be because of her other medications and came to the [facility]. A CT of the abdomen pelvis was performed which revealed progressive hepatic metastatic disease. Medical oncology has been consulted to assist in management of this patient with progressive breast cancer. Allergies Allergy/AdvReac Type Severity Reaction Status Date / Time metformin AdvReac Intermediate RESTLESSNES Verified 08/07/23 15:38 S Home Medications Medication Instructions Recorded Confirmed Type gabapentin 300 mg capsule 300 mg PO TID #90 caps 09/27/22 08/07/23 Rx pantoprazole 40 mg tablet,delayed 40 mg PO QAM #90 tabs 09/27/22 08/07/23 Rx release (Protonix) atorvastatin 40 mg tablet 40 mg PO HS #90 tabs 10/07/22 08/07/23 Rx blood sugar diagnostic (OneTouch #100 ea 10/07/22 07/24/23 Rx Ultra Test strips) cyanocobalamin (vitamin B-12) 1,000 mcg IM MONTHLY #1 ea 10/07/22 08/07/23 Rx 1,000 mcg/mL injection kit diltiazem HCl 360 mg capsule,24 360 mg PO QAM #90 caps 10/08/22 08/07/23 Rx hr,extended release vortioxetine 20 mg tablet 20 mg PO QAM 11/22/22 08/07/23 History (Trintellix) OneTouch Delica Plus Lancet 33 #300 ea 01/09/23 07/24/23 Rx gauge (lancets) albuterol sulfate 90 mcg/actuation 2 puff inhalation Q4 PRN Shortness 02/24/23 08/07/23 Rx aerosol inhaler Of Breath Or Wheezing #8.5 grams apixaban 5 mg tablet (Eliquis) 5 mg PO BID #60 tabs 02/24/23 08/07/23 Rx capecitabine 150 mg tablet (Xeloda) 150 mg PO BID 02/28/23 08/07/23 History diphenoxylate-atropine 2.5 1 tab PO QID PRN Diarrhea 02/28/23 08/07/23 History mg-0.025 mg tablet insulin glargine 100 unit/mL 20 unit subcut QPM 02/28/23 08/07/23 History subcutaneous solution (Lantus U-100 Insulin) meclizine 25 mg tablet 25 mg PO DAILY PRN 02/28/23 08/07/23 History DIZZINESS/VERTIGO losartan 25 mg tablet 25 mg PO DAILY #90 tabs 05/09/23 08/07/23 Rx pen needle, diabetic 32 gauge x #100 ea 06/12/23 07/24/23 Rx 5/32" (Easy Comfort Pen [place]) tramadol 50 mg tablet 50 mg PO TID PRN pain (scale score 07/29/23 08/07/23 Rx 7-10) #90 tabs levothyroxine 25 mcg tablet 37.5 mcg (1.5 x 25 mcg) PO QAM 07/30/23 08/07/23 Rx #135 tabs hydroxyzine HCl 10 mg tablet 10 mg PO HS 08/07/23 08/07/23 History tirzepatide 5 mg/0.5 mL 5 mg subcut WK 08/07/23 08/07/23 History subcutaneous pen injector (James) Patient History Medical History Breast skin changes Human metapneumovirus pneumonia Infected venous access port 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 History of blood transfusion Closed fracture of left distal fibula Breast cancer (12/18/15) "Abnormal left breast mammogram Status post core needle biopsy 12/18/2015 revealing infiltrating ductal carcinoma Estrogen receptor positive, progesterone receptor positive, HER-2/po negative Status post left needle localization lumpectomy and sentinel lymph node biopsy 01/04/2016 Stage pT1c pN0M0 Status post completion of radiation therapy 02/13/2016 received 3850 cGy utilizing accelerated partial breast irradiation." On 01/17/16 14:10 Deidre Orta wrote "Abnormal left breast mammogram Status post core needle biopsy 12/18/2015 revealing infiltrating ductal carcinoma Estrogen receptor positive, progesterone receptor positive, HER-2/po negative Status post left needle localization lumpectomy and sentinel lymph node biopsy 01/04/2016 Stage pT1c pN0M0" Generalized weakness Lung nodules monitoring Urinary frequency Pacemaker 2019, follows with Dr Ramires. checks Q6 months. Neuropathy Anxiety Aortic stenosis Mild aortic stenosis (MERLENE 1.6cm2; MG 7.8mmHg) per 12/2019 echo Diabetes mellitus, type 2 IDDM Degenerative disc disease Hx of cardiac pacemaker Implanted 2019 (tachy-monica syndrome), [employer] device Follows with Dr. Ramires Liver mass Pt denies but 05/17/20 PET scan shows 2.5 right hepatic lobe mass consistent with known hepatic metastasis Anemia h/o blood transfusions Infiltrating ductal carcinoma of left breast Initial Dx 2015- s/p lumpectomy, XRT and anastrozole Metastatic breast cancer 03/2020, follows with [facility] Atrial fibrillation follows with Dr Ramires Hypothyroidism Peripheral neuropathy Hands (B/L CTS) Obstructive sleep apnea "Resolved" s/p gastric bypass (? retested) Hypercholesterolemia Gastroesophageal reflux disease controlled, stable per pt Depression Chronic pain Cervical spine disease Full ROM per pt Surgical History H/O breast biopsy (05/29/23) Skin, left breast, 2 punch biopsies: In office procedure Dr. Alvarez - Fibrosing dermatitis. - See comment Status post revision of total replacement of right knee History of removal of Port-a-Cath (01/11/22) Infected port right anterior chest removed Dr. Shah S/P cardiac pacemaker procedure 2019 History of surgery Right knee TKA revision with spacer (07/11/2021): SAB at L3-4 (x2 attempts) + PNB at [facility]. No issues noted per post-op anesthesia progress note. History of carpal tunnel surgery of left wrist 06/2021 History of carpal tunnel surgery of right wrist Port-A-Cath in place hx - 05/2020 since removed d/t infection at port 12/2021 History of colonoscopy History of evacuation of hematoma Hematoma right breast and right chest 08/31/13 Dr. Shha H/O bilateral hip replacements Status post repair of ventral hernia History of total knee arthroplasty R/L Status post total abdominal hysterectomy and bilateral salpingo-oophorectomy Status post lumbar spine surgery for decompression of spinal cord Status post partial mastectomy of left breast Status post panniculectomy History of section x1 Status post laparoscopic cholecystectomy Status post gastric bypass for obesity Status post arthroscopy of left shoulder Status post appendectomy Family History Unknown Breast cancer Emphysema lung Mother Diabetes Heart disease Father Heart disease Other No family history of adverse response to anesthesia Denies family history of Ovarian cancer Prostate cancer Coronary heart disease Colorectal cancer Social History Smoking Status: Former smoker Tobacco Type: Cigarettes packs per day: 2; Second Hand Exposure: No; Do You Dip or Chew Tobacco: No; Hx Alcohol Use: No Hx Substance Use: No Preferred Language: Bhutanese Communication Ability: Effective Visual Impairment: No Limitations Hearing Ability: Normal 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 Bowls Required: No Beliefs That Will Affect Care: None marital status: Current Living Situation: Spouse current occupational status: retired Feels Safe at Home: Yes Childhood Exposure to Second-Hand Smoke: Yes Diet: diabetic caffeine: Yes Dental Care, Regularly: No Physical Activity Frequency: 1-2 Times per Week Seatbelt Use: always Sunscreen Use: No Assistive Devices: Glasses and Walker Review of Systems Review of Systems: All systems reviewed & are unremarkable except as noted in HPI & below Constitutional: as per Subjective / HPI Eyes: as per Subjective / HPI Ear, Nose, Mouth, Throat: as per Subjective / HPI Respiratory: as per Subjective / HPI Cardiovascular: as per Subjective / HPI Gastrointestinal: as per Subjective / HPI Genitourinary: as per Subjective / HPI Musculoskeletal: as per Subjective / HPI Integumentary: as per Subjective / HPI Neurologic: as per Subjective / HPI Psychiatric: as per Subjective / HPI Endocrine: as per Subjective / HPI Hematologic / Lymphatic: as per Subjective / HPI Physical Exam Constitutional: WD/WN, vitals as above Eyes: PERRL, conjunctivae normal, anicteric sclerae ENMT: external ear and nose normal, oropharynx normal Neck: trachea midline, no thyromegaly Respiratory: normal respiratory effort, lungs clear to auscultation Cardiovascular: RRR, no murmur, no edema Gastrointestinal (Abdomen): normal bowel sounds, soft, nontender, no hepatosplenomegaly Musculoskeletal: no cyanosis or clubbing, extremities motor strength 5/5 Skin: no rashes, warm and dry Neurologic: patellar DTR's 2+ bilat, sensation intact Psychiatric: A+Ox3, euthymic affect Results & Data Vital Signs (Past 12 Hours) Vital Signs Temp Pulse Resp BP Pulse Ox O2 Del Method 08/09/23 08:03 36.7 C 73 16 171/79 H 98 Room Air 08/09/23 07:00 Room Air
[2023-08-09] MEDS: OPTIRAY 320 100ml IV ONE (14:11)
--- NOTE | 2023-08-09 14:27 | CT Scan Report ---
CT OF THE CHEST WITH IV CONTRAST CLINICAL HISTORY: Breast cancer. Evaluate metastatic disease. COMPARISON STUDY: Chest CT April 24, 2023. TECHNIQUE: Following IV administration of 93 mL of Optiray, helical axial images of the chest were o btained. Sagittal and coronal reconstructions were viewed as well as maximal intensity projections o n an independent 3-D workstation. Automated exposure control was utilized for the study. A dose low ering technique was utilized adhering to the principles of ALARA. CT DOSE: 569.9 mGy.cm FINDINGS: No enlarged axillary, mediastinal or hilar lymph nodes are present. There is a dual-lead l eft subclavian pacemaker. Lumbar spine fusion hardware is partially imaged. The heart is mildly enlar ged. There is no pericardial effusion. No pulmonary emboli are identified. There is no consolidation to suggest pneumonia. Multiple small noncalcified and calcified pulmonary nodules are unchanged from prior exams. These measure up to 5 mm. No new nodules are present. There is no pneumothorax or pleura l effusion. Old bilateral rib fractures are present. There are no suspicious lesions within the bony thorax. Multiple hepatic lesions have increased in size since CT of April 24, 2023. Index right hep atic lobe lesion on image 178 of 213 measures 3.7 cm. This previously measured 2.[address] of [facility] 2022. There are postoperative findings within the stomach. A gallstone within an apparent dilat ed cystic duct remnant is present. IMPRESSION: 1. No evidence of metastatic disease within the chest. 2. Progression of hepatic metastases since CT of April 24, 2023, as described above. ACT 112: Negative or not required by law. Electronically signed by: Eladio Keane M.D. 08/09/2023 2:24 PM
[2023-08-09] MEDS: HYDROmorphone INJ 0.5 MG/0.5 ML SYR IV PRN (19:16)
[2023-08-10 06:22] LABS: Basophils # (auto) 0.06 K/uL (0.00-0.20); Basophils % (auto) 0.9 %; Eosinophils # (auto) 0.13 K/uL (0.00-0.50); Hematocrit (blood only) 28.2 % (37.0-47.0); Hemoglobin 9.7 g/dl (12.0-16.0); Immature Granulocytes # (auto) 0.01 K/uL (0.01-0.20); Immature Granulocytes % (auto) 0.2 %; Lymphocytes # (auto) 1.44 K/uL (1.20-3.40); Lymphocytes % (auto) 22.6 %; Mean Corpuscular Hemoglobin 34.5 pg (25.0-34.0); Mean Corpuscular Hgb Conc 34.4 g/dL (32.0-36.0); Mean Corpuscular Volume 100.4 fL (80.0-100.0); Mean Platelet Volume 11.2 fL (9.4-12.4); Monocytes # (auto) 0.69 K/uL (0.11-0.59); Monocytes % (auto) 10.8 %; Neutrophils # (auto) 4.03 K/uL (1.40-6.50); Neutrophils % (auto) 63.5 %; Platelet Count 240 K/uL (130-400); RDW Coefficient of Variation 18.9 % (11.5-14.5); RDW Standard Deviation 70.1 fL (36.4-46.3); Red Blood Count 2.81 M/uL (4.20-5.40); White Blood Count 6.36 K/ul (4.8-10.8)
[2023-08-10 06:46] LABS: INR 1.2 (0.9-1.1); Prothrombin Time 12.8 Seconds (9.0-12.0)
[2023-08-10 06:47] LABS: Albumin Globulin Ratio 1.7 (0.9-2); Albumin Level 3.7 gm/dl (3.4-5.0); BUN Creatinine Ratio 24.5 (10-20); Bilirubin,Total 0.7 mg/dl (0.2-1.0); Calcium 8.5 mg/dl (8.6-10.3); Creatinine Clr Calc Pharmacy 85.5 ml/min; Est GFR (African American) 110.5 ml/min; Est GFR (Non-African American) 95.3 ml/min; Globulin 2.2 gm/dl (2.5-4.0); Magnesium 1.8 mg/dl (1.7-2.4); Potassium 3.3 mmol/L (3.5-5.1); Total Protein 5.9 gm/dl (6.0-8.3)
--- NOTE | 2023-08-10 08:04 | Hospitalist Progress Note ---
Date of Service August 10, 2023 Assessment & Plan (1) Nausea & vomiting: Plan: Assessment: Refractory nausea and vomiting. On admission suspected 2nd to radha given recent start when unable to get her Trulicity and had worsened over ~2 weeks when started (last dose last Friday) - this has been discontinued Urine cx pinpoint growth however holding off additional abx for now, not septic and will await results CTAP on admission -No acute infectious or inflammatory findings are identified in the abdomen or pelvis. -Multifocal hepatic metastatic disease has progressed as compared to 04/24/2023. -Cardiomegaly and cardiac pacemaker, large gallstone contained within a dilated cystic duct remnant, b/l nephrolithiasis, notable fecal retention but no evidence for bowel obstruction GI consulted on admission for concerns GI bleeding/PUD, PPI increased to BID and pepcid added BID and monitoring over weekend initially if not improved Clear liquid --> DM/AHA and emesis x 1 08/08 but nothing further. Remains on P PI/pepcid per GI Zofran prn, trial Phenergan to see if more effective and can continue PO Phenergan at dc if needed as had been using zofran at home Discussed case w/ Dr De Luna and suspect progression disease contributing to symptoms as well as from her Xeloda and has been discontinued. See his note -- > arranging for chemo this upcoming week/gene testing to have been sent to see best option. LFTs wnl, INR 1.2, likely in setting of AC use and liver mets, no bleeding. Fecal occult NEGATIVE Did have diarrhea 08/08, unable to collect. Cdiff/pcr ordered for completeness K 3.3, PO replacement ordered. luis antonio from GI losses Monitor diet/Phenergan, will make NPO at midnight to consider EGD as desired by patient Repeat Ua/cx to be obtained, defer on abx for urine at this time given recent rounds and prevention of side effects/cdiff/etc. Not septic appearing, WBC wnl and afebrile and will repeat ua/cx and monitor. Add abx if needed but continue Pyridium for now as appears to be effective but increase to 200mg TID prn (2) Metastatic breast cancer: Plan: Stage IV metastatic breast carcinoma with mets to the liver. Follows with oncology. LFTs wnl on check CTAP w/ progression of metastatic disease on Xeloda, discussed w/ patient 08/08 as was unaware of findings on admission Dr De Luna consulted (prior followed by Dr Hernandez most recently prior to him leaving, and patient to have appt for scans in upcoming weeks -- see above) -- appreciate assistance/recommendations -Genetic testing to be performed to see about targeted agents for mutation in ESR 1 of PIK 3CA gene per Dr De Luna CT chest for eval prior to her possibly starting new chemo this upcoming week, oncology arranging, ?doxorubicin vs other. --> CT chest NEGATIVE for metastatic disease. Information relayed to patient, she was thankful to hear this Pain control, antiemetics as needed and outlined above (3) Urinary tract infection: Plan: ?possible vs cystitis -- ongoing dysuria symptoms/suprapubic discomfort. has been on multiple abx for UTI recently through [place] infectious [facility] -- Does have nonobstructing kidney stones bilaterally that need f/u Repeat UA on admit, no bacteria noting had been on abx multiple courses per her outpt provider/specialist Final urine cx recommending repeat collection As above, not septic appearing and will hold off abx for now but repeat UA/cx ordered Pyridium effective at times for bladder spasms/burning and increasing to 200mg TID prn and monitor response F/u urine cx on repeat (4) Abdominal pain: Plan: as above, multifactorial however worsened since starting mounjaro and would avoid this. suspect most of ongoing abdominal symptoms prior to worsening once placed on Mounjaro from her progressive metastatic disease as above Continue PPI BID for now, pepcid as recommended by GI. Did tolerate diet, emesis x 1 but wanting to continue current diet Zofran, phenergan added for symptoms -- consider PO phenergan at dc F/u urine cx, pyridium prn in meantime as outlined (5) Chronic GERD: Plan: on ppi once daily as above, GI consulted and PPI increased to BID and added pepcid and to monitor through and plan for EGD Friday w/ Dr Rojas if ongoing issues --do not suspect this needs done in light of progressive disease as above however patient does appear to want to discuss having this done for completeness w/ GI in morning and will make NPO at midnight tonight Of note, fecal occult testing NEGATIVE (6) Acute dehydration: Plan: IVF as above, poor PO intake for several days w/ nausea and vomiting and concerns related to recently starting mounjaro for DM control improvement and will hold off additional fluids for now (7) Hypothyroidism: Plan: TSH wnl on check, T3/t4 not low Remains on 37.5mcg daily (8) Pain due to interstitial cystitis: Plan: pyridium added, increased to 200mg TID prn monitor urine cx in f/u (9) Diabetes type 2, controlled: Plan: a1c 5.5 -- was on Trulicity but was not able to obtain and reason for recent rx mounjaro as above. Would NOT resume her mounjaro at sc as discussed. Will see where has Trulicity if possible and send rx to pharmacy but can monitor needs while inpatient glargine 5u BID, sliding scale insulin for now BSGs controlled, monitor (10) Atrial fibrillation: Plan: Eliquis BID continued TSH wnl no palpitations/SOB/CP reported or need to have on monitor at present (11) Constipation: Plan: as above, ?related to mounjaro vs other. poor PO intake over several days, IVF as above. Added colace BID +BM reported, diarrhea. Check cdiff/pcr given recent PPI increase but suspect from being backed up. monitor (12) Recurrent UTI (urinary tract infection): Plan: following by WAY[facility] alberts, recently seen/abx as above (13) Anemia: Plan: chronic, likely 2nd to metastatic breast ca as above to liver, progressive since prior imaging on admission CT --> iron studies w/o significant deficiency. b12/folate replete -- periph smear pending given MCV >100 but likely due to her progressive met disease as above TSH borderline but wnl, T3/t4 wnl fecal occult added for completeness -- NEGATIVE Eliquis continued as above hgb remaining stable s/p 1L IVF on admission Monitor (14) Hypokalemia: Plan: low on admit 3.2 repeat lower 2.8 -- likely from n/v, poor PO intake x 2-3 days. mag wnl PO/IV replacement ordered and 3.7 on repeat but did have emesis x 1 and K 3.3 on AM labs and PO replacement ordered Mag wnl, monitor labs in AM Plan DVT proph: eliquis BID continued inpatient stay. NPO at midnight until discussed w/ GI in AM if ongoing sx despite change in antiemetics/pyridium. monitor stool studies will f/u with Dr De Luna about coordination for f/u this upcoming week. -- Home xeloda med should be stopped on her med rec Admission and Anticipated Discharge Date Admission Date: August 07, 2023 Supervising Physician Co-Signing Physician Notes The patient was not seen by me. The chart was reviewed. Case discussed with AZEEM Kearney. Agree with assessment and plan Subjective Evaluated this morning, had some diarrhea last night, was unable to collect sample. Had some nausea/pain this morning, did get some zofran but still having some ongoing nausea. Discussed trial phenergan. She notes on meds for nausea at baseline up to BID, but have not been very effective. Will trial phenergan x 1, monitor response and can continue prn if needed and consider PO at dc for symptom control. She is anxious about her metastatic disease, did see Dr De Luna yesterday. CT chest NEGATIVE for metastatic disease as reviewed with patient. She is inquiring which chemo, pill or IV will be used. Discussed Dr De Luna working on regimen based on her hx/genetic testing that will be best suited for her and will be discussed. Reassurance provided. She notes no CP/SOB at present. She notes the IV pain medication works quicker -- discussed likely quicker and wears off quicker. Can monitor/adjust as needed. Discussed negative fecal occult testing but continuing PPI for symptom control. Can consider decreasing pepcid but will continue for now given no further emesis since yesterday x 1. Repeat urine cx to be collected. She would like any testing needed to assist. Discussed will see if any further testing helpful for Dr De Luna in preparation to begin chemo prior to dc. Does not feel stable for dc at this time. Will monitor. Questions/concerns addressed at this time. Physical Exam Physical Exam: General: 73yo female sitting up in bed on the phone, NAD, anxious/tearful at times but was much improved by end of conversation, hugged me and was thankful for care HEENT: head atraumatic, normocephalic, mm improved, trachea midline Resp; even/unlabored, slightly diminished in the bases but no w/c/r, on room air CV: RRR, +systolic murmur, no significant LE edema, calves nontender, pulses palpable GI: +BS throughout, +decreased tenderness epigastric region as well as suprapubic however generalized discomfort reported (overall stable/improved from day prior). abd soft, no guarding/rigidity/warmth : +suprapubic discomfort persists intermittently MSK/Neuro: nonfocal, follows commands, strength equal bilaterally Psych: AOx3, cooperative with care Results & Data Results & Data Vital Signs (Past 12 Hours) Vital Signs Temp Pulse Resp BP Pulse Ox O2 Del Method 08/10/23 07:34 36.8 C 60 16 148/75 H 98 Room Air 08/09/23 20:36 36.9 C 66 16 165/74 H 97 Room Air Laboratory Results 08/10/23 08/10/23 08/09/23 Range/Units 07:18 05:51 20:26 WBC 6.36 (4.8-10.8) K/ul RBC 2.81 L (4.20-5.40) M/uL Hgb 9.7 L (12.0-16.0) g/dl Hct 28.2 L (37.0-47.0) % MCV 100.4 H (80.0-100.0) fL MCH 34.5 H (25.0-34.0) pg MCHC 34.4 (32.0-36.0) g/dL RDW Std Deviation 70.1 H (36.4-46.3) fL RDW Coeff of Thompson 18.9 H (11.5-14.5) % Plt Count 240 (130-400) K/uL MPV 11.2 (9.4-12.4) fL Immature Gran % (Auto) 0.2 % Neut % (Auto) 63.5 % Lymph % (Auto) 22.6 % [place] % (Auto) 10.8 % Eos % (Auto) 2.0 % Baso % (Auto) 0.9 % Neut # (Auto) 4.03 (1.40-6.50) K/uL Lymph # (Auto) 1.44 (1.20-3.40) K/uL [facility] # (Auto) 0.69 H (0.11-0.59) K/uL Eos # (Auto) 0.13 (0.00-0.50) K/uL Baso # (Auto) 0.06 (0.00-0.20) K/uL Immature Gran # (Auto) 0.01 (0.01-0.20) K/uL PT 12.8 H (9.0-12.0) Seconds INR 1.2 H (0.9-1.1) Sodium 140 (136-145) mmol/L Potassium 3.3 L (3.5-5.1) mmol/L Chloride 110 H (98-107) mmol/L Carbon Dioxide 24 (21-32) mmol/L Anion Gap 6 (3-11) BUN 12 (6-23) mg/dl Creatinine 0.49 L (0.6-1.2) mg/dl Est Cr Clr Drug Dosing 85.5 ml/min Est GFR ( Amer) 110.5 ml/min Est GFR (Non-Af Amer) 95.3 ml/min BUN/Creatinine Ratio 24.5 H (10-20) Glucose 118 H (70-99(Fasting)) mg/dl POC Glucose 131 H 149 H (70-99) mg/dl Calcium 8.5 L (8.6-10.3) mg/dl Magnesium 1.8 (1.7-2.4) mg/dl Total Bilirubin 0.7 (0.2-1.0) mg/dl AST 19 (13-39) U/L ALT 23 (7-52) U/L Alkaline Phosphatase 81 (34-104) U/L Total Protein 5.9 L (6.0-8.3) gm/dl Albumin 3.7 (3.4-5.0) gm/dl Globulin 2.2 L (2.5-4.0) gm/dl Albumin/Globulin Ratio 1.7 (0.9-2) Stool Occult Bld Scrn (Negative) 08/09/23 08/09/23 08/09/23 Range/Units 16:37 11:25 08:22 WBC (4.8-10.8) K/ul RBC (4.20-5.40) M/uL Hgb (12.0-16.0) g/dl Hct (37.0-47.0) % MCV (80.0-100.0) fL MCH (25.0-34.0) pg MCHC (32.0-36.0) g/dL RDW Std Deviation (36.4-46.3) fL RDW Coeff of Thompson (11.5-14.5) % Plt Count (130-400) K/uL MPV (9.4-12.4) fL Immature Gran % (Auto) % Neut % (Auto) % Lymph % (Auto) % [facility] % (Auto) % Eos % (Auto) % Baso % (Auto) % Neut # (Auto) (1.40-6.50) K/uL Lymph # (Auto) (1.20-3.40) K/uL [facility] # (Auto) (0.11-0.59) K/uL Eos # (Auto) (0.00-0.50) K/uL Baso # (Auto) (0.00-0.20) K/uL Immature Gran # (Auto) (0.01-0.20) K/uL PT (9.0-12.0) Seconds INR (0.9-1.1) Sodium (136-145) mmol/L Potassium (3.5-5.1) mmol/L Chloride (98-107) mmol/L Carbon Dioxide (21-32) mmol/L Anion Gap (3-11) BUN (6-23) mg/dl Creatinine (0.6-1.2) mg/dl Est Cr Clr Drug Dosing ml/min Est GFR ( Amer) ml/min Est GFR (Non-Af Amer) ml/min BUN/Creatinine Ratio (10-20) Glucose (70-99(Fasting)) mg/dl POC Glucose 147 H 129 H (70-99) mg/dl Calcium (8.6-10.3) mg/dl Magnesium (1.7-2.4) mg/dl Total Bilirubin (0.2-1.0) mg/dl AST (13-39) U/L ALT (7-52) U/L Alkaline Phosphatase (34-104) U/L Total Protein (6.0-8.3) gm/dl Albumin (3.4-5.0) gm/dl Globulin (2.5-4.0) gm/dl Albumin/Globulin Ratio (0.9-2) Stool Occult Bld Scrn Negative (Negative) Diagnostic Findings Chest CT 08/09/23 11:50 CT OF THE CHEST WITH IV CONTRAST CLINICAL HISTORY: Breast cancer. Evaluate metastatic disease. COMPARISON STUDY: Chest CT April 24, 2023. TECHNIQUE: Following IV administration of 93 mL of Optiray, helical axial images of the chest were obtained. Sagittal and coronal reconstructions were viewed as well as maximal intensity projections on an independent 3-D workstation. Automated exposure control was utilized for the study. A dose lowering technique was utilized adhering to the principles of ALARA. CT DOSE: 569.9 mGy.cm FINDINGS: No enlarged axillary, mediastinal or hilar lymph nodes are present. There is a dual-lead left subclavian pacemaker. Lumbar spine fusion hardware is partially imaged. The heart is mildly enlarged. There is no pericardial effusion. No pulmonary emboli are identified. There is no consolidation to suggest pneumonia. Multiple small noncalcified and calcified pulmonary nodules are unchanged from prior exams. These measure up to 5 mm. No new nodules are present. There is no pneumothorax or pleural effusion. Old bilateral rib fractures are present. There are no suspicious lesions within the bony thorax. Multiple hepatic lesions have increased in size since CT of April 24, 2023. Index right hepatic lobe lesion on image 178 of 213 measures 3.7 cm. This previously measured 2.[address] of April 24, 2023. There are postoperative findings within the stomach. A gallstone within an apparent dilated cystic duct remnant is present. IMPRESSION: 1. No evidence of metastatic disease within the chest. 2. Progression of hepatic metastases since CT of April 24, 2023, as described above. ACT 112: Negative or not required by law. Electronically signed by: Eladio Keane M.D. 08/09/2023 2:24 PM PG Care Time/CCT Total # of Minutes Spent Total Time Spent with Patient: Total time spent is greater than 50% in coordination of care (as documented) at patient's floor/unit and/or counseling patient: Coding Level of Care Code 15791 SUB INP/OBS CARE 3/50MIN Diagnoses Nausea & vomiting R11.2 Vomiting type: unspecified Metastatic breast cancer C50.919 Urinary tract infection N30.01 Hematuria presence: with hematuria Urinary tract infection type: acute cystitis Abdominal pain R10.30 Abdominal location: lower abdomen, unspecified Chronic GERD K21.9 Acute dehydration E86.0 Hypothyroidism, unspecified type E03.9 Hypothyroidism type: unspecified Pain due to interstitial cystitis N30.10 Controlled type 2 diabetes mellitus without complication, with long-term current use of insulin E11.9; Z79.4 Diabetes mellitus complication status: without complication Diabetes mellitus prison insulin use: with prison use Atrial fibrillation, unspecified type I48.91 Atrial fibrillation type: unspecified Constipation K59.00 Recurrent UTI (urinary tract infection) N39.0 Anemia D64.9 Anemia type: unspecified type Hypokalemia E87.6 (1) Nausea & vomiting Vomiting type: unspecified Qualified Code(s): R11.2 - Nausea with vomiting, unspecified (3) Urinary tract infection Hematuria presence: with hematuria Urinary tract infection type: acute cystitis Qualified Code(s): N30.01 - Acute cystitis with hematuria (4) Abdominal pain Abdominal location: lower abdomen, unspecified Qualified Code(s): R10.30 - Lower abdominal pain, unspecified (7) Hypothyroidism Hypothyroidism type: unspecified Qualified Code(s): E03.9 - Hypothyroidism, unspecified (9) Diabetes type 2, controlled Diabetes mellitus complication status: without complication Diabetes mellitus welt sole layer insulin use: with welt sole layer use Qualified Code(s): E11.9 - Type 2 diabetes mellitus without complications; Z79.4 - halfway (current) use of insulin (10) Atrial fibrillation Atrial fibrillation type: unspecified Qualified Code(s): I48.91 - Unspecified atrial fibrillation (13) Anemia Anemia type: unspecified type Qualified Code(s): D64.9 - Anemia, unspecified
[2023-08-10] MEDS: traMADol HCL 50 MG TABLET PO PRN (08:13)
[2023-08-10] MEDS: POTASSIUM CHLORIDE CRTAB 20 MEQ TABCR PO STA (09:34)
[2023-08-10] MEDS: PROMETHAZINE HCL 6.25 MG in SODIUM CHLORIDE 0.9% 50 ML IV STA (12:19)
[2023-08-10] MEDS ORDERED: PROMETHAZINE HCL 6.25 MG in SODIUM CHLORIDE 0.9% 50 ML IV PRN (12:52)
[2023-08-10] MEDS: PHENAZOPYRIDINE HCL 200 MG TAB PO PRN (16:55)
[2023-08-10 19:21] LABS: Adenovirus F 40/41 PCR Not Detected (NotDetected); Astrovirus PCR Not Detected (NotDetected); Campylobacter PCR Not Detected (NotDetected); Cryptosporidium PCR Not Detected (NotDetected); Cyclospora cayetanensis PCR Not Detected (NotDetected); Entamoeba histolytica PCR Not Detected (NotDetected); Enteroaggregative E.coli(EAEC) Not Detected (NotDetected); Enteropathogenic E.coli (EPEC) Not Detected (NotDetected); Enterotoxigenic E.coli (ETEC) Not Detected (NotDetected); Giardia lamblia PCR Not Detected (NotDetected); Norovirus GI/GII PCR Not Detected (NotDetected); Plesiomonas shigelloides PCR Not Detected (NotDetected); Rotavirus A PCR Not Detected (NotDetected); Salmonella PCR Not Detected (NotDetected); Sapovirus PCR Not Detected (NotDetected); Shiga-like Toxin E.coli (STEC) Not Detected (NotDetected); Shigella/Enteroinvasive E.coli Not Detected (NotDetected); Vibrio cholerae PCR Not Detected (NotDetected); Vibrio species PCR Not Detected (NotDetected); Yersinia enterocolitica PCR Not Detected (NotDetected)
[2023-08-10 21:32] LABS: Appearance Urine Slightly Cloudy (Clear); Color Urine Orange; Specific Gravity Urine 1.019 (1.000-1.030)
[2023-08-10 21:42] LABS: Bacteria Urine 2+ (Negative); Calcium Oxalate Crystals Urine Present (None Prsent); Epithelial Cell Urine >30 /lpf (0-5); WBC Urine >30 /hpf (0-5)
[2023-08-10] MEDS ORDERED: Nursing to Pharmacy Communication SCH (23:00)
[2023-08-11] MEDS: INSULIN ASPART PER UNIT CHARGE SC SCH ×2 (00:08→12:04)
[2023-08-11 06:08] LABS: Hematocrit (blood only) 28.2 % (37.0-47.0); Hemoglobin 9.2 g/dl (12.0-16.0); Mean Corpuscular Hemoglobin 34.3 pg (25.0-34.0); Mean Corpuscular Hgb Conc 32.6 g/dL (32.0-36.0); Mean Corpuscular Volume 105.2 fL (80.0-100.0); Mean Platelet Volume 11.4 fL (9.4-12.4); Platelet Count 238 K/uL (130-400); RDW Coefficient of Variation 19.5 % (11.5-14.5); RDW Standard Deviation 74.6 fL (36.4-46.3); Red Blood Count 2.68 M/uL (4.20-5.40)
[2023-08-11 06:33] LABS: Albumin Globulin Ratio 1.7 (0.9-2); Albumin Level 3.7 gm/dl (3.4-5.0); Bilirubin,Total 0.7 mg/dl (0.2-1.0); Creatinine Clr Calc Pharmacy 61.6 ml/min; Est GFR (African American) 99.2 ml/min; Est GFR (Non-African American) 85.6 ml/min; Globulin 2.2 gm/dl (2.5-4.0); Magnesium 1.8 mg/dl (1.7-2.4); Potassium 4.1 mmol/L (3.5-5.1); Total Protein 5.9 gm/dl (6.0-8.3)
--- NOTE | 2023-08-11 06:54 | Ultrasound Report ---
US gallbladder CLINICAL HISTORY: Nausea and vomiting. Breast cancer with liver metastases. Reporting surgically abse nt GB. COMPARISON STUDY: CT of the abdomen and pelvis August 07, 2023. Right upper quadrant ultrasound Augus t 2020. FINDINGS: Multiple hypodense hepatic lesions measure up to 3.7 cm, as shown on abdominal CT of August 07, 2023. Mild dilatation of the common bile duct remains unchanged from earlier exams. This is likel y related to cholecystectomy. An echogenic shadowing structure within the gallbladder fossa is noted. A normal-appearing gallbladder is not identified. No sonographic Santoro sign was elicited. Pancreas is largely obscured by overlying bowel gas. There is no right hydronephrosis. IMPRESSION: 1. Echogenic shadowing structure within the gallbladder fossa. This corresponds to a gallstone, likel y within a dilated cystic duct remnant with peripheral calcification status post cholecystectomy. No sonographic Santoro sign to suggest acute inflammation. 2. Mild biliary ductal dilatation, similar to prior exams. This is likely related to cholecystectomy. 3. Hypodense hepatic lesions consistent with metastases, as shown on CT of August 07, 2023. ACT 112: Negative or not required by law. Electronically signed by: Eladio Keane M.D. 08/11/2023 6:52 AM
--- NOTE | 2023-08-11 07:29 | Hospitalist Progress Note ---
<Statement entered by Estella Guzmán MD - 08/11/23 18:12> 73 y/o with metastatic breast cancer that has progressed on current therapy and recurrent UTIs. Cystic duct stone seems unlikely to account for her infections and decline given the overall context however further investigation with MRCP is reasonable. Planned for port placement for further chemotherapy as outpatient. Date of Service August 11, 2023 Assessment & Plan (1) Nausea & vomiting: Plan: 73yo female with progressive hepatic metastatic disease on imaging compared to Apr 2023 with recent start mounjaro ~2 weeks ago as couldn't find Trulicity local (hx gastric bypass to note, should not be on) and poor PO intake with worsening nausea, vomiting and abdominal pain to epigastric/R back as well as suprapubic region with recent antibiotics per Jose G ID for recurrent UTIs and concerns for UTI or GI bleeding per patient on admission with dehydration due to inability to keep foods down. GI consulted, [facility] [place], for consideration for EGD -- recs for PPI increased BID, added pepcid BID and monitor. --They discussed w/ Dr Roldan per my request given concerns for GB pathology, and confirmed NO NEED for ERCP at that time. LFTs wnl -- tolerating diet, emesis on 08/09 but nothing further and does not want diet backed down. Diarrhea reported but PCR stool negative/cdiff negative. Fecal occult testing NEGATIVE. 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 Does make note of her progression of liver lesions and b/l nephrolithiasis and confirmed with ER CM last evening these were the correct patient and confirmed with daughter these scans were done but they have been trying to get results from [place] office but haven't heard back -- I messaged her ID provider for discussion, Dr Zacarias, who ordered test as out patient for discussion. Patient reported lap han in the past, prior imaging in our system noting absent GB but retained stone in cystic duct. Not yet heard back. RUQ obtained last evening for further eval given differences in reports, does have abdominal incisions from prior lap han. Her CTAP on admission does appear with large inflammed like area in region of the gallbladder but again all other reports and by patient reporting absent GB except one report last Summer --> RUQ noting Echogenic shadowing structure within the gallbladder fossa. This corresponds to a gallstone, likely within a dilated cystic duct remnant with peripheral calcification status post cholecystectomy. No sonographic Santoro sign to suggest acute inflammation.2. Mild biliary ductal dilatation, similar to prior exams. This is likely related to cholecystectomy. 3. Hypodense hepatic lesions consistent with metastases, as shown on CT of August 07, 2023. Discussed case w/ on-call GI at [facility], review of their imaging and discussed if patient would need ERCP would nee to be open procedure and would need MRCP first as recommended in CTAP that is in their system. Will order MRCP for further evaluation and contact Dr Mckeon at [facility] if needing to consider transfer if blockage. Does complicate things with her hx malignancy and could have compression in ducts due to liver lesions Hematology/oncology consulted given progressive metastatic disease --oral chemo stopped given progressive disease and planning for liposomal doxorubicin. --CT chest obtained to eval for metastatic disease which was NEGATIVE. --Would like ECHO prior to starting chemo given agent of choice which has been ordered as well as --surgery consultation for evaluation/possible port placement tomorrow vs Friday if able to begin chemo this upcoming week however unsure if will be able to occur in setting of likely UTI (however ?chronic cystitis/colonization). WBC wnl/afebrile at present however repeat urine cx w/ GNB and started IV Ceftriaxone 08/10 and f/u urine cx. ?nidus of infection w/ the retained stone? Have never had positive blood cultures per patient/system, but again has been on frequent antibiotics Antiemetics -- zofran/phenergan if ineffective Pain control as needed -- home tramadol switched to oxycodone per request/tramadol ineffective Monitor labs on repeat, urine cx results Updated daughter Zaira by phone this morning (2) Metastatic breast cancer: Plan: Stage IV metastatic breast carcinoma with mets to the liver. Follows with oncology, Dr De Luna CTAP findings w/ progression of hepatic disease on Xeloda Dr De Luna consulted/seen while inpatient, working on arranging outpt chemo as above and possible start later this week pending ability for port placement CT chest NEGATIVE for metastatic disease Planning to obtain ECHO prior to starting treatment as well as surgery consult for port-placement as outlined above (3) Urinary tract infection: Plan: ?UTI vs cystitis. Does have b/l nephrolithiasis as above. Initialy urine cx rec repeat collection which was done as above and currently growing GNB. --> Does have hx ESBL however most recent urine cx ecoli/pansensitive Ceftriaxone IV ordered and monitor final cx. ?infected stone. Urology consulted Pyridium prn ordered f/u final urine cx (4) Abdominal pain: Plan: multifactorial however worsened since starting mounjaro and would avoid this however also with +urine cx as above and progressive disease Sx management w/ PPI BID, pepcid BID as above. Diet as tolerated. No further emesis, antiemetics prn Pain control as outlined with PO/IV opiates as needed and Pyridium for bladder pain/spasm (5) Chronic GERD: Plan: as above, PPI increased to BID and pepcid added BID per GI Per discussion w/ [employer] this morning, case discussed w/ provider and plan for outpt EGD if having ongoing issues Fecal cocult/stool PCR negative (6) Acute dehydration: Plan: As above, improved intake and no further IVF. NPO order cancelled as no plans for intervention (7) Hypothyroidism: Plan: TSH wnl on check, T3/t4 not low Remains on 37.5mcg daily (8) Pain due to interstitial cystitis: Plan: pyridium added, increased to 200mg TID prn abx as above, f/u urine cx (9) Diabetes type 2, controlled: Plan: a1c 5.5 -- was on Trulicity but was not able to obtain and reason for recent rx mounjaro as above. Would NOT resume her mounjaro [place] as discussed. Will see where has Trulicity if possible and send rx to pharmacy but can monitor needs while inpatient glargine 5u BID, sliding scale insulin for now BSG elevated this afternoon w/ advancement of diet, pharmacy consulted given working on multiple issues as above for assistance, appreciated (10) Atrial fibrillation: Plan: Eliquis BID continued TSH wnl no palpitations/SOB/CP reported or need to have on monitor at present (11) Constipation: Plan: resolved, now having diarrhea. will place colace on hold Stool testing negative ?overflow from initial constipation monitor (12) Recurrent UTI (urinary tract infection): Plan: following by [facility], recently seen/abx as above (13) Anemia: Plan: chronic, likely 2nd to metastatic breast ca as above to liver, progressive since prior imaging on admission CT --> iron studies w/o significant deficiency. b12/folate replete -- periph smear pending given MCV >100 but likely due to her progressive met disease as above TSH borderline but wnl, T3/t4 wnl fecal occult added for completeness -- NEGATIVE Eliquis continued as above hgb remaining stable s/p 1L IVF on admission Monitor (14) Hypokalemia: Plan: low on admit, 2nd to poor PO intake and n/v PO/IV replacement ordered, normal on repeat and will monitor. Mag wnl Plan DVT proph: eliquis BID Continued inpatient stay Admission and Anticipated Discharge Date Admission Date: August 07, 2023 Subjective Evaluated this morning, having some ongoing diarrhea. Tolerating diet without further vomiting but reported some incontinence of foul smelling urine. Discussed urine culture positive and antibiotics being started for such. No planned for EGD at present time and remains on PPI/pepcid. Stool biofire negative. Having suprapubic discomfort as well as epigastric/RUQ. Notable had GB REMOVED in the past. Discussed [facility] imaging and possible discussion w/ surgeon/GI at [facility] to see if maybe needing to intervene on the gallstone and comparison of imaging given difference in having vs not having the gallbladder and possible need for ERCP/EUS for further evaluation. Pain control w/ PO/IV, Dilaudid working, tramadol not. Will switch tramadol to oxycodone as needed and monitor. She is agreeable to transfer to [facility] if needed. Will update daughter Zaira, -- questions/concerns addressed at this time. Discussed w/ Dr De Luna, does not feel stone infected given negative blood cultures prior but has been on abx w/ ID. Will be discussing w/ GI [facility] but do not feel needing transferred if able to arrange outpatient follow up. Would like ECHO to be done prior to liposomal doxirubicin as well as surgical consultation for port placement as if able to do ideally tomorrow (or day following pending their schedule) they have made arrangements for her chemo and could be started this week with Dr De Luna in [facility]. Physical Exam Physical Exam: General: 73yo female sitting up in bed, NAD but reports had a rough night/morning, burning with urination and ongoing diarrhea Head atraumatic, normocephalic, mmm, trachea midline Resp; Even/unlabored, no w/c/r, 100% on RA CV: RRR, faint systolic murmur, no significant LE edema/calf tenderness GI: +BS throughout, +tenderness epigastric region as well as suprapubic, no rigidity/peritoneal signs, prior abdominal scars noted from lap han/gastric bypass : no fuentes, +CVA tenderness on the R MSK/Neuro: nonfocal, answering questions appropriately, strength equal bilaterally Psych: AOx3, cooperative with exam Results & Data Results & Data Vital Signs (Past 12 Hours) Vital Signs Temp Pulse Resp BP Pulse Ox O2 Del Method 08/11/23 07:14 36.5 C 58 L 16 135/78 100 Room Air 08/10/23 20:06 36.4 C L 63 16 138/88 97 Room Air Laboratory Results 08/11/23 08/11/23 08/11/23 Range/Units 06:11 05:49 00:05 WBC 5.60 (4.8-10.8) K/ul RBC 2.68 L (4.20-5.40) M/uL Hgb 9.2 L (12.0-16.0) g/dl Hct 28.2 L (37.0-47.0) % MCV 105.2 H (80.0-100.0) fL MCH 34.3 H (25.0-34.0) pg MCHC 32.6 (32.0-36.0) g/dL RDW Std Deviation 74.6 H (36.4-46.3) fL RDW Coeff of Thompson 19.5 H (11.5-14.5) % Plt Count 238 (130-400) K/uL MPV 11.4 (9.4-12.4) fL Sodium 141 (136-145) mmol/L Potassium 4.1 D (3.5-5.1) mmol/L Chloride 111 H (98-107) mmol/L Carbon Dioxide 24 (21-32) mmol/L Anion Gap 6 (3-11) BUN 17 (6-23) mg/dl Creatinine 0.68 (0.6-1.2) mg/dl Est Cr Clr Drug Dosing 61.6 ml/min Est GFR ( Amer) 99.2 ml/min Est GFR (Non-Af Amer) 85.6 ml/min BUN/Creatinine Ratio 25.0 H (10-20) Glucose 110 H (70-99(Fasting)) mg/dl POC Glucose 118 H 97 (70-99) mg/dl Calcium 9.0 (8.6-10.3) mg/dl Magnesium 1.8 (1.7-2.4) mg/dl Total Bilirubin 0.7 (0.2-1.0) mg/dl AST 17 (13-39) U/L ALT 20 (7-52) U/L Alkaline Phosphatase 75 (34-104) U/L Ammonia 12.0 L (18-72) umol/L Total Protein 5.9 L (6.0-8.3) gm/dl Albumin 3.7 (3.4-5.0) gm/dl Globulin 2.2 L (2.5-4.0) gm/dl Albumin/Globulin Ratio 1.7 (0.9-2) Urine Color Urine Appearance (Clear) Urine pH (4.5-7.5) Ur Specific [place] (1.000-1.030) Urine Protein (Negative) Urine Glucose (UA) (Negative) Urine Ketones (Negative) Urine Blood (Negative) Urine Nitrite (Negative) Urine Bilirubin (Negative) Urine Urobilinogen (Negative) Ur Leukocyte Esterase (Negative) Urine RBC (0-4) /hpf Urine WBC (0-5) /hpf Ur Epithelial Cells (0-5) /lpf Urine Crystals (None Prsent) Calcium Oxalate Crystal (None Prsent) Urine Bacteria (Negative) Stl C. cayetanensis PCR (NotDetected) Stool Rotavirus A PCR (NotDetected) Stl Adenov F 40/41 PCR (NotDetected) Stool Astrovirus (PCR) (NotDetected) Stool Campylobacter PCR (NotDetected) Stl C. diff Tox B Gene (Neg) Stool Cryptosporidium PCR (NotDetected) Stl E.coli Shiga Tox PCR (NotDetected) Stl Enterotoxigenic E PCR (NotDetected) Stool EPEC (PCR) (NotDetected) Stool EAEC (PCR) (NotDetected) Stl E. histolytica PCR (NotDetected) Stool Giardia Lamblia PCR (NotDetected) Stool Salmonella PCR (NotDetected) Stool Sapovirus (PCR) (NotDetected) Stl P. shigelloides PCR (NotDetected) Stl Shigella/EIEC PCR (NotDetected) St Y.enterocolitica PCR (NotDetected) Stool Vibrio (PCR) (NotDetected) Stl Vibrio cholerae PCR (NotDetected) Stl Norovirus GI/GII PCR (NotDetected) 08/10/23 08/10/23 08/10/23 Range/Units 21:10 20:53 17:35 WBC (4.8-10.8) K/ul RBC (4.20-5.40) M/uL Hgb (12.0-16.0) g/dl Hct (37.0-47.0) % MCV (80.0-100.0) fL MCH (25.0-34.0) pg MCHC (32.0-36.0) g/dL RDW Std Deviation (36.4-46.3) fL RDW Coeff of Thompson (11.5-14.5) % Plt Count (130-400) K/uL MPV (9.4-12.4) fL Sodium (136-145) mmol/L Potassium (3.5-5.1) mmol/L Chloride (98-107) mmol/L Carbon Dioxide (21-32) mmol/L Anion Gap (3-11) BUN (6-23) mg/dl Creatinine (0.6-1.2) mg/dl Est Cr Clr Drug Dosing ml/min Est GFR ( Amer) ml/min Est GFR (Non-Af Amer) ml/min BUN/Creatinine Ratio (10-20) Glucose (70-99(Fasting)) mg/dl POC Glucose 150 H (70-99) mg/dl Calcium (8.6-10.3) mg/dl Magnesium (1.7-2.4) mg/dl Total Bilirubin (0.2-1.0) mg/dl AST (13-39) U/L ALT (7-52) U/L Alkaline Phosphatase (34-104) U/L Ammonia (18-72) umol/L Total Protein (6.0-8.3) gm/dl Albumin (3.4-5.0) gm/dl Globulin (2.5-4.0) gm/dl Albumin/Globulin Ratio (0.9-2) Urine Color [place] Urine Appearance Slightly Cloudy (Clear) Urine pH (4.5-7.5) Ur Specific [place] 1.019 (1.000-1.030) Urine Protein (Negative) Urine Glucose (UA) (Negative) Urine Ketones (Negative) Urine Blood (Negative) Urine Nitrite (Negative) Urine Bilirubin (Negative) Urine Urobilinogen (Negative) Ur Leukocyte Esterase (Negative) Urine RBC 5-10 H (0-4) /hpf Urine WBC >30 H (0-5) /hpf Ur Epithelial Cells >30 H (0-5) /lpf Urine Crystals Calcium Oxalate A (None Prsent) Calcium Oxalate Crystal Present A (None Prsent) Urine Bacteria 2+ H (Negative) Stl C. cayetanensis PCR Not Detected (NotDetected) Stool Rotavirus A PCR Not Detected (NotDetected) Stl Adenov F 40/41 PCR Not Detected (NotDetected) Stool Astrovirus (PCR) Not Detected (NotDetected) Stool Campylobacter PCR Not Detected (NotDetected) Stl C. diff Tox B Gene Negative Cdiff Gene (Neg) Stool Cryptosporidium PCR Not Detected (NotDetected) Stl E.coli Shiga Tox PCR Not Detected (NotDetected) Stl Enterotoxigenic E PCR Not Detected (NotDetected) Stool EPEC (PCR) Not Detected (NotDetected) Stool EAEC (PCR) Not Detected (NotDetected) Stl E. histolytica PCR Not Detected (NotDetected) Stool Giardia Lamblia PCR Not Detected (NotDetected) Stool Salmonella PCR Not Detected (NotDetected) Stool Sapovirus (PCR) Not Detected (NotDetected) Stl P. shigelloides PCR Not Detected (NotDetected) Stl Shigella/EIEC PCR Not Detected (NotDetected) St Y.enterocolitica PCR Not Detected (NotDetected) Stool Vibrio (PCR) Not Detected (NotDetected) Stl Vibrio cholerae PCR Not Detected (NotDetected) Stl Norovirus GI/GII PCR Not Detected (NotDetected) 08/10/23 08/10/23 Range/Units 16:19 11:37 WBC (4.8-10.8) K/ul RBC (4.20-5.40) M/uL Hgb (12.0-16.0) g/dl Hct (37.0-47.0) % MCV (80.0-100.0) fL MCH (25.0-34.0) pg MCHC (32.0-36.0) g/dL RDW Std Deviation (36.4-46.3) fL RDW Coeff of Thompson (11.5-14.5) % Plt Count (130-400) K/uL MPV (9.4-12.4) fL Sodium (136-145) mmol/L Potassium (3.5-5.1) mmol/L Chloride (98-107) mmol/L Carbon Dioxide (21-32) mmol/L Anion Gap (3-11) BUN (6-23) mg/dl Creatinine (0.6-1.2) mg/dl Est Cr Clr Drug Dosing ml/min Est GFR ( Amer) ml/min Est GFR (Non-Af Amer) ml/min BUN/Creatinine Ratio (10-20) Glucose (70-99(Fasting)) mg/dl POC Glucose 191 H 143 H (70-99) mg/dl Calcium (8.6-10.3) mg/dl Magnesium (1.7-2.4) mg/dl Total Bilirubin (0.2-1.0) mg/dl AST (13-39) U/L ALT (7-52) U/L Alkaline Phosphatase (34-104) U/L Ammonia (18-72) umol/L Total Protein (6.0-8.3) gm/dl Albumin (3.4-5.0) gm/dl Globulin (2.5-4.0) gm/dl Albumin/Globulin Ratio (0.9-2) Urine Color Urine Appearance (Clear) Urine pH (4.5-7.5) Ur Specific [place] (1.000-1.030) Urine Protein (Negative) Urine Glucose (UA) (Negative) Urine Ketones (Negative) Urine Blood (Negative) Urine Nitrite (Negative) Urine Bilirubin (Negative) Urine Urobilinogen (Negative) Ur Leukocyte Esterase (Negative) Urine RBC (0-4) /hpf Urine WBC (0-5) /hpf Ur Epithelial Cells (0-5) /lpf Urine Crystals (None Prsent) Calcium Oxalate Crystal (None Prsent) Urine Bacteria (Negative) Stl C. cayetanensis PCR (NotDetected) Stool Rotavirus A PCR (NotDetected) Stl Adenov F 40/41 PCR (NotDetected) Stool Astrovirus (PCR) (NotDetected) Stool Campylobacter PCR (NotDetected) Stl C. diff Tox B Gene (Neg) Stool Cryptosporidium PCR (NotDetected) Stl E.coli Shiga Tox PCR (NotDetected) Stl Enterotoxigenic E PCR (NotDetected) Stool EPEC (PCR) (NotDetected) Stool EAEC (PCR) (NotDetected) Stl E. histolytica PCR (NotDetected) Stool Giardia Lamblia PCR (NotDetected) Stool Salmonella PCR (NotDetected) Stool Sapovirus (PCR) (NotDetected) Stl P. shigelloides PCR (NotDetected) Stl Shigella/EIEC PCR (NotDetected) St Y.enterocolitica PCR (NotDetected) Stool Vibrio (PCR) (NotDetected) Stl Vibrio cholerae PCR (NotDetected) Stl Norovirus GI/GII PCR (NotDetected) Diagnostic Findings Gallbladder Ultrasound 08/10/23 17:48 US gallbladder CLINICAL HISTORY: Nausea and vomiting. Breast cancer with liver metastases. Reporting surgically absent GB. COMPARISON STUDY: CT of the abdomen and pelvis August 07, 2023. Right upper quadrant ultrasound December 30, 2020. FINDINGS: Multiple hypodense hepatic lesions measure up to 3.7 cm, as shown on abdominal CT of August 07, 2023. Mild dilatation of the common bile duct remains unchanged from earlier exams. This is likely related to cholecystectomy. An echogenic shadowing structure within the gallbladder fossa is noted. A normal- appearing gallbladder is not identified. No sonographic Santoro sign was elicited. Pancreas is largely obscured by overlying bowel gas. There is no right hydronephrosis. IMPRESSION: 1. Echogenic shadowing structure within the gallbladder fossa. This corresponds to a gallstone, likely within a dilated cystic duct remnant with peripheral calcification status post cholecystectomy. No sonographic Santoro sign to suggest acute inflammation. 2. Mild biliary ductal dilatation, similar to prior exams. This is likely related to cholecystectomy. 3. Hypodense hepatic lesions consistent with metastases, as shown on CT of August 07, 2023. ACT 112: Negative or not required by law. Electronically signed by: Eladio Keane M.D. 08/11/2023 6:52 AM PG Care Time/CCT Total # of Minutes Spent Total Time Spent with Patient: Total time spent is greater than 50% in coordination of care (as documented) at patient's floor/unit and/or counseling patient: Coding Level of Care Code 37997 SUB INP/OBS CARE 3/50MIN Diagnoses Nausea & vomiting R11.2 Vomiting type: unspecified Metastatic breast cancer C50.919 Urinary tract infection N30.01 Hematuria presence: with hematuria Urinary tract infection type: acute cystitis Abdominal pain R10.30 Abdominal location: lower abdomen, unspecified Chronic GERD K21.9 Acute dehydration E86.0 Hypothyroidism, unspecified type E03.9 Hypothyroidism type: unspecified Pain due to interstitial cystitis N30.10 Controlled type 2 diabetes mellitus without complication, with long-term current use of insulin E11.9; Z79.4 Diabetes mellitus nursing home insulin use: with nursing home use Diabetes mellitus complication status: without complication Atrial fibrillation, unspecified type I48.91 Atrial fibrillation type: unspecified Constipation K59.00 Recurrent UTI (urinary tract infection) N39.0 Anemia D64.9 Anemia type: unspecified type Hypokalemia E87.6 (1) Nausea & vomiting Vomiting type: unspecified Qualified Code(s): R11.2 - Nausea with vomiting, unspecified (3) Urinary tract infection Hematuria presence: with hematuria Urinary tract infection type: acute cystitis Qualified Code(s): N30.01 - Acute cystitis with hematuria (4) Abdominal pain Abdominal location: lower abdomen, unspecified Qualified Code(s): R10.30 - Lower abdominal pain, unspecified (7) Hypothyroidism Hypothyroidism type: unspecified Qualified Code(s): E03.9 - Hypothyroidism, unspecified (9) Diabetes type 2, controlled Diabetes mellitus nursing home insulin use: with director long term care use Diabetes mellitus complication status: without complication Qualified Code(s): E11.9 - Type 2 diabetes mellitus without complications; 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
[2023-08-11] MEDS: TAMSULOSIN HCL 0.4 MG CAP PO SCH (09:07)
[2023-08-11] MEDS: cefTRIAXone SODIUM 2,000 MG in DEXTROSE 5 % MINI-B 50 ML IV SCH (09:07)
[2023-08-11] MEDS: SODIUM CHLORIDE 0.9% 1,000 ML IV SCH (09:07)
--- NOTE | 2023-08-11 10:21 | Urology Consultation ---
Date of Consultation August 11, 2023 Assessment & Plan (1) Urinary tract infection: (2) Bilateral nephrolithiasis: 73 yo/F admitted for intractable nausea and vomiting. Urology is consulted for recurrent UTI, bilateral nephrolithiasis, N/V She is afebrile and hemodynamically stable Labs show-normal creatinine, no leukocytosis Urine culture 08/09 prelim gram-negative bacilli CT A/P showed bilateral nephrolithiasis, no ureteral stones or hydronephrosis CT imaging also noted multifocal hepatic metastatic disease has progressed as compared to 04/24/2023, a large gallstone contained within a dilated cystic duct remnant Her N/V was likely multifactorial--fortunately has largely resolved Plan: Recommend continue with antibiotics and tailor per sensitivities when available No acute surgical intervention warranted at this time Recommend check a post void residual bladder scan to ensure emptying Can consider restarting methenamine after acute infection has been treated Can continue with cranberry supplements and d-mannose for prevention upon discharge Recommend normalize bowels Keep outpatient follow-up with urology as scheduled next week, can consider discussion of stone treatment will sign off, please contact our service with any additional concerns History of Present Illness Reason for Consultation: recurrent UTIs, b/l kidney stones, n/v/abd pain Attending Physician: Fransisco Quispe MD History of Present Illness This is a 73-year-old female with history of breast cancer with liver metastases, nephrolithiasis and recurrent UTIs who was admitted on 08/07/2023 with intractable nausea and vomiting ongoing for a few weeks. Urology is consulted today for recurrent UTIs, b/l kidney stones, n/v/abd pain. Patient is known to our service for dysuria, Hx of recurrent UTI with E. coli, E. coli ESBL and Enterococcus infections, and bilateral nephrolithiasis. She also follows with urogynecology and infectious disease at [facility]. During her work-up in the ED, she had CT A/P 08/07/2023 which showed bilateral nephrolithiasis with at least 3 nonobstructing right renal calculi which measure up to 6 mm and at least 4 nonobstructing calculi are seen in the left kidney and measure up to 9 mm, no ureteral stones or hydronephrosis. Also noted multifocal hepatic metastatic disease has progressed as compared to 04/24/2023, a large gallstone contained within a dilated cystic duct remnant. Hematology/oncology and GI were consulted during this admission. Urinalysis 08/07/23 showed 3+ blood, 1+ leukocyte esterase, >30 WBC, >30 RBC, >30 epithelials and negative for bacteria Urine culture 08/07/23 showed 3 types of organisms present, all moderate counts of probable mixed skin austen UA 08/10/2023 showed 5-10 RBC, >30 WBC, >30 epithelials, calcium oxalate crystals present and 2+ bacteria Urine culture 08/10/2023 prelim gram-negative bacilli Patient seen and examined at bedside this morning. She is awake and sitting up in bedside chair eating breakfast. She reports nausea and vomiting have resolved. She continues to have some lower abdominal/pelvic discomfort. Notes occasional flank discomfort, but no recent severe or persistent flank pain. Reports dysuria. She is voiding spontaneously, notes incontinence. She has occasional feeling of incomplete emptying. She reports multiple loose bowel movements during the day, this has been an ongoing issue. Denies fever or chills. She has previously been on methenamine as well as cranberry and d-mannose supplements for prevention of UTIs. She is no longer on methenamine, discontinued because she felt it was not helping. She has been on hydroxyzine for bladder pain syndrome. She has also tried rescue treatments and hydrodistention through her urogynecologist. She is treated for recurrent infections through her ID provider. Allergies Allergy/AdvReac Type Severity Reaction Status Date / Time metformin AdvReac Intermediate RESTLESSNES Verified 08/07/23 15:38 S Home Medications Medication Instructions Recorded Confirmed Type gabapentin 300 mg capsule 300 mg PO TID #90 caps 09/27/22 08/07/23 Rx pantoprazole 40 mg tablet,delayed 40 mg PO QAM #90 tabs 09/27/22 08/07/23 Rx release (Protonix) atorvastatin 40 mg tablet 40 mg PO HS #90 tabs 10/07/22 08/07/23 Rx blood sugar diagnostic (OneTouch #100 ea 10/07/22 07/24/23 Rx Ultra Test strips) cyanocobalamin (vitamin B-12) 1,000 mcg IM MONTHLY #1 ea 10/07/22 08/07/23 Rx 1,000 mcg/mL injection kit diltiazem HCl 360 mg capsule,24 360 mg PO QAM #90 caps 10/08/22 08/07/23 Rx hr,extended release vortioxetine 20 mg tablet 20 mg PO QAM 11/22/22 08/07/23 History (Trintellix) OneTouch Delica Plus Lancet 33 #300 ea 01/09/23 07/24/23 Rx gauge (lancets) albuterol sulfate 90 mcg/actuation 2 puff inhalation Q4 PRN Shortness 02/24/23 08/07/23 Rx aerosol inhaler Of Breath Or Wheezing #8.5 grams apixaban 5 mg tablet (Eliquis) 5 mg PO BID #60 tabs 02/24/23 08/07/23 Rx capecitabine 150 mg tablet (Xeloda) 150 mg PO BID 02/28/23 08/07/23 History diphenoxylate-atropine 2.5 1 tab PO QID PRN Diarrhea 02/28/23 08/07/23 History mg-0.025 mg tablet insulin glargine 100 unit/mL 20 unit subcut QPM 02/28/23 08/07/23 History subcutaneous solution (Lantus U-100 Insulin) meclizine 25 mg tablet 25 mg PO DAILY PRN 02/28/23 08/07/23 History DIZZINESS/VERTIGO losartan 25 mg tablet 25 mg PO DAILY #90 tabs 05/09/23 08/07/23 Rx pen needle, diabetic 32 gauge x #100 ea 06/12/23 07/24/23 Rx 5/32" (Easy Comfort Pen [place]) tramadol 50 mg tablet 50 mg PO TID PRN pain (scale score 07/29/23 08/07/23 Rx 7-10) #90 tabs levothyroxine 25 mcg tablet 37.5 mcg (1.5 x 25 mcg) PO QAM 07/30/23 08/07/23 Rx #135 tabs hydroxyzine HCl 10 mg tablet 10 mg PO HS 08/07/23 08/07/23 History tirzepatide 5 mg/0.5 mL 5 mg subcut WK 08/07/23 08/07/23 History subcutaneous pen injector (Mounjaro) Patient History Medical History Breast skin changes Human metapneumovirus pneumonia Infected venous access port 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 History of blood transfusion Closed fracture of left distal fibula Breast cancer (12/18/15) "Abnormal left breast mammogram Status post core needle biopsy 12/18/2015 revealing infiltrating ductal carcinoma Estrogen receptor positive, progesterone receptor positive, HER-2/po negative Status post left needle localization lumpectomy and sentinel lymph node biopsy 01/04/2016 Stage pT1c pN0M0 Status post completion of radiation therapy 02/13/2016 received 3850 cGy utilizing accelerated partial breast irradiation." On 01/17/16 14:10 Deidre Orta wrote "Abnormal left breast mammogram Status post core needle biopsy 12/18/2015 revealing infiltrating ductal carcinoma Estrogen receptor positive, progesterone receptor positive, HER-2/po negative Status post left needle localization lumpectomy and sentinel lymph node biopsy 01/04/2016 Stage pT1c pN0M0" Generalized weakness Lung nodules monitoring Urinary frequency Pacemaker 2019, follows with Dr Ramires. checks Q6 months. Neuropathy Anxiety Aortic stenosis Mild aortic stenosis (MERLENE 1.6cm2; MG 7.8mmHg) per 12/2019 echo Diabetes mellitus, type 2 IDDM Degenerative disc disease Hx of cardiac pacemaker Implanted 2019 (tachy-monica syndrome), Medtronic device Follows with Dr. Ramires Liver mass Pt denies but 05/17/20 PET scan shows 2.5 right hepatic lobe mass consistent with known hepatic metastasis Anemia h/o blood transfusions Infiltrating ductal carcinoma of left breast Initial Dx 2015- s/p lumpectomy, XRT and anastrozole Metastatic breast cancer 03/2020, [facility] Atrial fibrillation follows with Dr Ramires Hypothyroidism Peripheral neuropathy Hands (B/L CTS) Obstructive sleep apnea "Resolved" s/p gastric bypass (? retested) Hypercholesterolemia Gastroesophageal reflux disease controlled, stable per pt Depression Chronic pain Cervical spine disease Full ROM per pt Surgical History H/O breast biopsy (05/29/23) Skin, left breast, 2 punch biopsies: In office procedure Dr. Alvarez - Fibrosing dermatitis. - See comment Status post revision of total replacement of right knee History of removal of Port-a-Cath (01/11/22) Infected port right anterior chest removed Dr. Shah S/P cardiac pacemaker procedure 2019 History of surgery Right knee TKA revision with spacer (07/11/2021): SAB at L3-4 (x2 attempts) + PNB at [facility]. No issues noted per post-op anesthesia progress note. History of carpal tunnel surgery of left wrist 06/2021 History of carpal tunnel surgery of right wrist Port-A-Cath in place hx - 05/2020 since removed d/t infection at port 12/2021 History of colonoscopy History of evacuation of hematoma Hematoma right breast and right chest 08/31/13 Dr. Shah H/O bilateral hip replacements Status post repair of ventral hernia History of total knee arthroplasty R/L Status post total abdominal hysterectomy and bilateral salpingo-oophorectomy Status post lumbar spine surgery for decompression of spinal cord Status post partial mastectomy of left breast Status post panniculectomy History of section x1 Status post laparoscopic cholecystectomy Status post gastric bypass for obesity Status post arthroscopy of left shoulder Status post appendectomy Family History Unknown Breast cancer Emphysema lung Mother Diabetes Heart disease Father Heart disease Other No family history of adverse response to anesthesia Denies family history of Ovarian cancer Prostate cancer Coronary heart disease Colorectal cancer Social History Smoking Status: Former smoker Tobacco Type: Cigarettes packs per day: 2; Second Hand Exposure: No; Do You Dip or Chew Tobacco: No; Tobacco Cessation Education Requested by Patient: No Hx Alcohol Use: No Hx Substance Use: No Preferred Language: Romanian Communication Ability: Effective Visual Impairment: No Limitations Hearing Ability: Normal A Auxiliary Required: No Beliefs That Will Affect Care: None marital status: Current Living Situation: Spouse current occupational status: retired Other Information That Helps Us Care for You: No Feels Safe at Home: Yes Safety Concerns: Feels Safe At This Time Childhood Exposure to Second-Hand Smoke: Yes Diet: diabetic caffeine: Yes Dental Care, Regularly: No Physical Activity Frequency: 1-2 Times per Week Seatbelt Use: always Sunscreen Use: No Assistive Devices: Glasses and Walker Review of Systems Review of Systems: All systems reviewed & are unremarkable except as noted in HPI & below Physical Exam Constitutional: no acute distress Eyes: no scleral abnormality Respiratory: normal respiratory effort; no respiratory distress and no labored breathing Gastrointestinal (Abdomen): Inspection/Auscultation: abdomen normal to i nspection Musculoskeletal: Head/Neck/Chest: normocephalic Neurologic: moves all extremities and awake Psychiatric: Orientation: alert and oriented x 3 Results & Data Vital Signs (Past 12 Hours) Vital Signs Temp Pulse Resp BP Pulse Ox O2 Del Method 08/11/23 07:14 36.5 C 58 L 16 135/78 100 Room Air PG Care Time/CCT Total # of Minutes Spent Total Time Spent with Patient: Total time spent is greater than 50% in coordination of care (as documented) at patient's floor/unit and/or counseling patient: Coding Level of Care Code 60311 INT INP/OBS CARE 2/55MIN Diagnoses Urinary tract infection N30.01 Hematuria presence: with hematuria Urinary tract infection type: acute cystitis Bilateral nephrolithiasis N20.0 (1) Urinary tract infection Hematuria presence: with hematuria Urinary tract infection type: acute cystitis Qualified Code(s): N30.01 - Acute cystitis with hematuria
[2023-08-11] MEDS ORDERED: Nursing to Pharmacy Communication SCH (10:45)
[2023-08-11] MEDS ORDERED: PHARMACY GLYCEMIC MGMT CONSULT PRN (12:47)
--- NOTE | 2023-08-11 13:29 | Pharmacy Report ---
Pharmacy Glycemic Short Note 2 - Date of Service August 11, 2023 - Glycemic Short BSG Results (Last 24 hours): 08/10/23 08/10/23 08/11/23 16:19 20:53 00:05 Glucose POC Glucose 191 H 150 H 97 08/11/23 08/11/23 08/11/23 05:49 06:11 11:36 Glucose 110 H POC Glucose 118 H 307 H* 08/11/23 11:37 Glucose POC Glucose 291 H OUTPATIENT ANTIDIABETIC REGIMEN: * Lantus 20 units QPM, Mounjaro 5 mg SQ weekly ASSESSMENT: * 73 year old admitted with refractory nausea/vomiting. Concerns for UTI, receiving antibiotics. Pharmacy consulted for glycemic management. Patient NPO this AM, but then changed to diet. Talked with RN and patient ended up eating a late breakfast, no insulin coverage given - BSG at lunch time was 291 mg/dL. * Now that patient is eating, anticipate BSGs to rise. Will plan to tighten novolog with dinner. Patient's fasting BSGs within range, however anticipate to rise with increased PO intake. Will provide scale for basal insulin PLAN FOR INPATIENT GLYCEMIC CONTROL: * Hold outpatient oral diabetes medications * Basal insulin * Lantus 5-7 units SQ BID * Bolus insulin * NovoLog per scale ACHS or Q6hrs while NPO * Goal Range: Low 110 mg/dL - High 140 mg/dL * Correction Factor: 40 mg/dL/unit * Nutritional / Prandial insulin per carb ratio of 1 unit per 13 grams CHO consumed
[2023-08-11] MEDS: oxyCODONE HCL IR 5 MG TAB (IMMEDIATE RELEASE) PO PRN (13:53)
--- NOTE | 2023-08-11 15:42 | XCELERA ---
[id number]
[2023-08-11] MEDS: LANTUS PER UNIT CHARGE SQ SCH (20:29)
[2023-08-12] MEDS: LANTUS PER UNIT CHARGE SC SCH (09:49)
[2023-08-12] MEDS: ERTAPENEM SODIUM 1,000 MG in SYRINGE 0 ML IV SCH (09:49)
--- NOTE | 2023-08-12 10:04 | Surgery Consultation ---
Date of Consultation August 12, 2023 Assessment & Plan (1) Metastases to the liver: Metastatic breast CA will plan Aport placement in AM risks explained in detail History of Present Illness Attending Physician: Makenna Rodriguez MD History of Present Illness This patient 73-year-old female admitted with nausea and vomiting. She was being treated for UTI. Work-up showed new hepatic recurrence of a breast CA initially diagnosed in 2015 s/p surgical intervention and subsequent chemo for a hepatic mets in 2021. She will need aa Aport for her therapy, previous right port removed. Allergies Allergy/AdvReac Type Severity Reaction Status Date / Time metformin AdvReac Intermediate RESTLESSNES Verified 08/07/23 15:38 S Home Medications Medication Instructions Recorded Confirmed Type gabapentin 300 mg capsule 300 mg PO TID #90 caps 09/27/22 08/07/23 Rx pantoprazole 40 mg tablet,delayed 40 mg PO QAM #90 tabs 09/27/22 08/07/23 Rx release (Protonix) atorvastatin 40 mg tablet 40 mg PO HS #90 tabs 10/07/22 08/07/23 Rx blood sugar diagnostic (OneTouch #100 ea 10/07/22 07/24/23 Rx Ultra Test strips) cyanocobalamin (vitamin B-12) 1,000 mcg IM MONTHLY #1 ea 10/07/22 08/07/23 Rx 1,000 mcg/mL injection kit diltiazem HCl 360 mg capsule,24 360 mg PO QAM #90 caps 10/08/22 08/07/23 Rx hr,extended release vortioxetine 20 mg tablet 20 mg PO QAM 11/22/22 08/07/23 History (Trintellix) OneTouch Delica Plus Lancet 33 #300 ea 01/09/23 07/24/23 Rx gauge (lancets) albuterol sulfate 90 mcg/actuation 2 puff inhalation Q4 PRN Shortness 02/24/23 08/07/23 Rx aerosol inhaler Of Breath Or Wheezing #8.5 grams apixaban 5 mg tablet (Eliquis) 5 mg PO BID #60 tabs 02/24/23 08/07/23 Rx capecitabine 150 mg tablet (Xeloda) 150 mg PO BID 02/28/23 08/07/23 History diphenoxylate-atropine 2.5 1 tab PO QID PRN Diarrhea 02/28/23 08/07/23 History mg-0.025 mg tablet insulin glargine 100 unit/mL 20 unit subcut QPM 02/28/23 08/07/23 History subcutaneous solution (Lantus U-100 Insulin) meclizine 25 mg tablet 25 mg PO DAILY PRN 02/28/23 08/07/23 History DIZZINESS/VERTIGO losartan 25 mg tablet 25 mg PO DAILY #90 tabs 05/09/23 08/07/23 Rx pen needle, diabetic 32 gauge x #100 ea 06/12/23 07/24/23 Rx 5/32" (Easy Comfort Pen [place]) tramadol 50 mg tablet 50 mg PO TID PRN pain (scale score 07/29/23 08/07/23 Rx 7-10) #90 tabs levothyroxine 25 mcg tablet 37.5 mcg (1.5 x 25 mcg) PO QAM 07/30/23 08/07/23 Rx #135 tabs hydroxyzine HCl 10 mg tablet 10 mg PO HS 08/07/23 08/07/23 History tirzepatide 5 mg/0.5 mL 5 mg subcut WK 08/07/23 08/07/23 History subcutaneous pen injector (Mounjaro) Patient History Medical History Breast skin changes Human metapneumovirus pneumonia Infected venous access port 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 History of blood transfusion Closed fracture of left distal fibula Breast cancer (12/18/15) "Abnormal left breast mammogram Status post core needle biopsy 12/18/2015 revealing infiltrating ductal carcinoma Estrogen receptor positive, progesterone receptor positive, HER-2/po negative Status post left needle localization lumpectomy and sentinel lymph node biopsy 01/04/2016 Stage pT1c pN0M0 Status post completion of radiation therapy 02/13/2016 received 3850 cGy utilizing accelerated partial breast irradiation." On 01/17/16 14:10 Deidre Orta wrote "Abnormal left breast mammogram Status post core needle biopsy 12/18/2015 revealing infiltrating ductal carcinoma Estrogen receptor positive, progesterone receptor positive, HER-2/po negative Status post left needle localization lumpectomy and sentinel lymph node biopsy 01/04/2016 Stage pT1c pN0M0" Generalized weakness Lung nodules monitoring Urinary frequency Pacemaker 2019, follows with Dr Ramires. checks Q6 months. Neuropathy Anxiety Aortic stenosis Mild aortic stenosis (MERLENE 1.6cm2; MG 7.8mmHg) per 12/2019 echo Diabetes mellitus, type 2 IDDM Degenerative disc disease Hx of cardiac pacemaker Implanted 2019 (tachy-monica syndrome), Medtronic device Follows with Dr. Ramires Liver mass Pt denies but 05/17/20 PET scan shows 2.5 right hepatic lobe mass consistent with known hepatic metastasis Anemia h/o blood transfusions Infiltrating ductal carcinoma of left breast Initial Dx 2015- s/p lumpectomy, XRT and anastrozole Metastatic breast cancer 03/2020, follows with [facility] Atrial fibrillation follows with Dr Ramires Hypothyroidism Peripheral neuropathy Hands (B/L CTS) Obstructive sleep apnea "Resolved" s/p gastric bypass (? retested) Hypercholesterolemia Gastroesophageal reflux disease controlled, stable per pt Depression Chronic pain Cervical spine disease Full ROM per pt Surgical History H/O breast biopsy (05/29/23) Skin, left breast, 2 punch biopsies: In office procedure Dr. Alvarez - Fibrosing dermatitis. - See comment Status post revision of total replacement of right knee History of removal of Port-a-Cath (01/11/22) Infected port right anterior chest removed Dr. Shah S/P cardiac pacemaker procedure 2019 History of surgery Right knee TKA revision with spacer (07/11/2021): SAB at L3-4 (x2 attempts) + PNB at [facility]. No issues noted per post-op anesthesia progress note. History of carpal tunnel surgery of left wrist 06/2021 History of carpal tunnel surgery of right wrist Port-A-Cath in place hx - 05/2020 since removed d/t infection at port 12/2021 History of colonoscopy History of evacuation of hematoma Hematoma right breast and right chest 08/31/13 Dr. Shah H/O bilateral hip replacements Status post repair of ventral hernia History of total knee arthroplasty R/L Status post total abdominal hysterectomy and bilateral salpingo-oophorectomy Status post lumbar spine surgery for decompression of spinal cord Status post partial mastectomy of left breast Status post panniculectomy History of section x1 Status post laparoscopic cholecystectomy Status post gastric bypass for obesity Status post arthroscopy of left shoulder Status post appendectomy Family History Unknown Breast cancer Emphysema lung Mother Diabetes Heart disease Father Heart disease Other No family history of adverse response to anesthesia Denies family history of Ovarian cancer Prostate cancer Coronary heart disease Colorectal cancer Social History Smoking Status: Former smoker Tobacco Type: Cigarettes packs per day: 2; Second Hand Exposure: No; Do You Dip or Chew Tobacco: No; Tobacco Cessation Education Requested by Patient: No Hx Alcohol Use: No Hx Substance Use: No Preferred Language: Bulgarian Communication Ability: Effective Visual Impairment: No Limitations Hearing Ability: Normal [employer] Services Professional Required: No Beliefs That Will Affect Care: None marital status: Current Living Situation: Spouse current occupational status: retired Other Information That Helps Us Care for You: No Feels Safe at Home: Yes Safety Concerns: Feels Safe At This Time Childhood Exposure to Second-Hand Smoke: Yes Diet: diabetic caffeine: Yes Dental Care, Regularly: No Physical Activity Frequency: 1-2 Times per Week Seatbelt Use: always Sunscreen Use: No Assistive Devices: Glasses and Walker Review of Systems Constitutional: no fever and no chills Eyes: no problem reported Ear, Nose, Mouth, Throat: no problem reported Respiratory: no cough and no dyspnea Cardiovascular: no chest pain Gastrointestinal: + nausea and + vomiting; no abdominal pa in Genitourinary: + dysuria Musculoskeletal: no back pain and no joint pain Integumentary: no problem reported Neurologic: + tingling and + numbness; no localized weakness and no generalized weakness Psychiatric: no behavioral changes Endocrine: no fatigue Hematologic / Lymphatic: no easy bleeding and no easy bruising Physical Exam Constitutional: + thin Eyes: PERRL, conjunctivae normal, anicteric sclerae ENMT: external ear and nose normal, oropharynx normal Neck: trachea midline Respiratory: normal respiratory effort, lungs clear to auscultation Cardiovascular: RRR, no murmur, no edema Gastrointestinal (Abdomen): normal bowel sounds, soft, nontender, no hepatosplenomegaly Musculoskeletal: Head/Neck/Chest: normocephalic and head atraumatic Skin: no rashes, warm and dry Results & Data Vital Signs (Past 12 Hours) Vital Signs Temp Pulse Resp BP Pulse Ox O2 Del Method 08/12/23 07:16 36.6 C 59 L 18 114/67 99 Room Air Diagnostic Findings US gallbladder CLINICAL HISTORY: Nausea and vomiting. Breast cancer with liver metastases. Reporting surgically absent GB. COMPARISON STUDY: CT of the abdomen and pelvis August 07, 2023. Right upper quadrant ultrasound December 30, 2020. FINDINGS: Multiple hypodense hepatic lesions measure up to 3.7 cm, as shown on abdominal CT of August 07, 2023. Mild dilatation of the common bile duct remains unchanged from earlier exams. This is likely related to cholecystectomy. An echogenic shadowing structure within the gallbladder fossa is noted. A normal- appearing gallbladder is not identified. No sonographic Santoro sign was elicited. Pancreas is largely obscured by overlying bowel gas. There is no right hydronephrosis. IMPRESSION: 1. Echogenic shadowing structure within the gallbladder fossa. This corresponds to a gallstone, likely within a dilated cystic duct remnant with peripheral calcification status post cholecystectomy. No sonographic Santoro sign to suggest acute inflammation. 2. Mild biliary ductal dilatation, similar to prior exams. This is likely related to cholecystectomy. 3. Hypodense hepatic lesions consistent with metastases, as shown on CT of August 07, 2023.
[2023-08-12] MEDS: VORTIOXETINE HYDROBROMIDE 20 MG PO SCH (13:30)
--- NOTE | 2023-08-12 15:17 | Magnetic Resonance Report ---
MR MRCP CLINICAL HISTORY: eval for blockage, retained gallstone TECHNIQUE: Multiplanar multisequence MR images of the abdomen were obtained, as per MRCP protocol. . COMPARISON: Comparison is made to CT abdomen pelvis 08/07/2023 FINDINGS: Exam is limited by patient motion. Lower chest: No acute abnormality Liver: Redemonstration of multifocal hepatic metastatic foci. Gallbladder and biliary tree: Patient is status post cholecystectomy. No intra- or extrahepatic bilia ry ductal dilation. Pancreas: Unremarkable, no focal lesions. Spleen: Unremarkable. Adrenals: Unremarkable. Kidneys and ureters: Renal cysts are seen. Bowel: Unremarkable. Lymph nodes Retroperitoneal: Unremarkable. Mesenteric: Unremarkable. Peritoneum: Normal Vessels: Unremarkable. Abdominal wall: Unremarkable. Bones: Posterior fixation hardware spans L2-S1. IMPRESSION: 1. Postsurgical changes of cholecystectomy. The common bile duct is not dilated for age and no ducta l stones are seen. 2. Partial visualization of numerous hepatic metastatic foci. ACT 112: Negative or not required by law. Electronically signed by: Emre Riojas M.D. 08/12/2023 3:15 PM
--- NOTE | 2023-08-12 15:57 | Hospitalist Progress Note ---
Date of Service August 12, 2023 Assessment & Plan (1) Nausea & vomiting: Plan: 73yo female with metastatic breast CA w/ liver mets here w intractable N/V after recently starting on Mounjaro GI consulted for consideration for EGD-none needed, advised increasing PPI to bid and adding pepcid Possible gallstone seen in cystic duct remnant-no need for ERCP, LFTs normal MRCP negative Continues to have some N/V if eats her whole plate of food. Has h/o gastric bypass and lost 200 lbs since that time. Mounjaro causing long lasting effect---> advised small portions of food to avoid vomiting Zofran, Phenergan prn (2) Metastatic breast cancer: Plan: Stage IV metastatic breast carcinoma with mets to the liver. Follows with oncology, Dr De Luna CTAP findings w/ progression of hepatic disease on Xeloda oral chemo stopped given progressive disease and planning for liposomal doxorubicin. CT chest obtained to eval for metastatic disease which was NEGATIVE. ECHO prior to starting chemo shows moderate , otherwise normal Surgery consultation for port placement 08/12 Dr De Luna consulted/seen while inpatient, working on arranging outpt chemo and possible start later this week after port placement (3) Urinary tract infection: Plan: With ongoing dysuria, h/o recurrent UTIs W/ nephrolithiasis but no ureterolithiasis Ur cx with ESBL Klebsiella--change ctx to Invanz for now continue pyridium prn can dc to home on po Cipro (4) Abdominal pain: Plan: worsened since starting mounjaro but UTI and liver mets could be contributing Also with h/o constipation-now resolved Improved now with PPI BID, pepcid BID, and treating UTI (5) Chronic GERD: Plan: PPI increased to BID and pepcid added BID per GI plan for outpt EGD if having ongoing issues Fecal occult/stool PCR negative (6) Hypothyroidism: Plan: TSH wnl on check Remains on LT4 37.5mcg daily (7) Pain due to interstitial cystitis: Plan: pyridium increased to 200mg TID prn start methenamine on discharge (8) Diabetes type 2, controlled: Plan: a1c 5.5 -- was on Trulicity but was not able to obtain and then placed on mounjaro Would NOT resume her mounjaro or Trulicity on discharge given about to resume chemotherapy and this will cause issues with N/V most likely alone HgbA1C low regardless Lantus and Novolog here recommend once daily dose of Lantus at home on discharge (9) Atrial fibrillation: Plan: Eliquis BID on hold for surgery in normal rhythm on exam (10) Constipation: Plan: resolved, then had diarrhea x 2 Stool PCR and C. diff negative (11) Recurrent UTI (urinary tract infection): Plan: following by WAYNE alberts (12) Anemia: Plan: chronic, likely of chronic disease and from chemotherapy, hgb stable at 9-10 for 6-8 months,macrocytic iron studies w/o significant deficiency. b12/folate replete periph smear negative TSH wnl fecal occult NEGATIVE (13) Hypokalemia: Plan: low on admit, 2nd to poor PO intake and n/v PO/IV replacement ordered, normal on repeat Plan DVT proph: eliquis BID on hold for port placement Dispo- Continued inpatient stay, can dc to home tomorrow after port placement if tolerating po Admission and Anticipated Discharge Date Admission Date: August 09, 2023 Anticipated date of discharge: 08/13/23 Results & Data Results & Data Vital Signs (Past 12 Hours) Vital Signs Temp Pulse Resp BP Pulse Ox O2 Del Method 08/12/23 15:09 37.2 C 61 18 125/68 97 Room Air 08/12/23 07:16 36.6 C 59 L 18 114/67 99 Room Air PG Care Time/CCT Total # of Minutes Spent Total Time Spent with Patient: Total time spent is greater than 50% in coordination of care (as documented) at patient's floor/unit and/or counseling patient: Coding Level of Care Code 50076 SUB INP/OBS CARE 3/50MIN Diagnoses Nausea & vomiting R11.2 Vomiting type: unspecified Metastatic breast cancer C50.919 Urinary tract infection N30.01 Hematuria presence: with hematuria Urinary tract infection type: acute cystitis Abdominal pain R10.30 Abdominal location: lower abdomen, unspecified Chronic GERD K21.9 Hypothyroidism, unspecified type E03.9 Hypothyroidism type: unspecified Pain due to interstitial cystitis N30.10 Controlled type 2 diabetes mellitus without complication, with long-term current use of insulin E11.9; Z79.4 Diabetes mellitus long term acute care registered nurse insulin use: with long term acute care registered nurse use Diabetes mellitus complication status: without complication Atrial fibrillation, unspecified type I48.91 Atrial fibrillation type: unspecified Constipation K59.00 Recurrent UTI (urinary tract infection) N39.0 Anemia D64.9 Anemia type: unspecified type Hypokalemia E87.6 (1) Nausea & vomiting Vomiting type: unspecified Qualified Code(s): R11.2 - Nausea with vomiting, unspecified (3) Urinary tract infection Hematuria presence: with hematuria Urinary tract infection type: acute cystitis Qualified Code(s): N30.01 - Acute cystitis with hematuria (4) Abdominal pain Abdominal location: lower abdomen, unspecified Qualified Code(s): R10.30 - Lower abdominal pain, unspecified (6) Hypothyroidism Hypothyroidism type: unspecified Qualified Code(s): E03.9 - Hypothyroidism, unspecified (8) Diabetes type 2, controlled Diabetes mellitus long term acute care registered nurse insulin use: with long term acute care registered nurse use Diabetes mellitus complication status: without complication Qualified Code(s): E11.9 - Type 2 diabetes mellitus without complications; Z79.4 - retirement (current) use of insulin (9) Atrial fibrillation Atrial fibrillation type: unspecified Qualified Code(s): I48.91 - Unspecified atrial fibrillation (12) Anemia Anemia type: unspecified type Qualified Code(s): D64.9 - Anemia, unspecified
[2023-08-13] MEDS: INSULIN ASPART PER UNIT CHARGE SC SCH ×2 (05:56→13:15)
[2023-08-13 06:17] LABS: Basophils # (auto) 0.05 K/uL (0.00-0.20); Basophils % (auto) 1.1 %; Eosinophils # (auto) 0.21 K/uL (0.00-0.50); Eosinophils % (auto) 4.6 %; Hematocrit (blood only) 28.6 % (37.0-47.0); Hemoglobin 9.4 g/dl (12.0-16.0); Immature Granulocytes # (auto) 0.01 K/uL (0.01-0.20); Immature Granulocytes % (auto) 0.2 %; Lymphocytes % (auto) 34.9 %; Mean Corpuscular Hemoglobin 33.8 pg (25.0-34.0); Mean Corpuscular Hgb Conc 32.9 g/dL (32.0-36.0); Mean Corpuscular Volume 102.9 fL (80.0-100.0); Monocytes # (auto) 0.66 K/uL (0.11-0.59); Monocytes % (auto) 14.4 %; Neutrophils # (auto) 2.06 K/uL (1.40-6.50); Neutrophils % (auto) 44.8 %; Platelet Count 244 K/uL (130-400); RDW Coefficient of Variation 19.2 % (11.5-14.5); RDW Standard Deviation 72.5 fL (36.4-46.3); Red Blood Count 2.78 M/uL (4.20-5.40); White Blood Count 4.59 K/ul (4.8-10.8)
[2023-08-13 06:26] LABS: Albumin Globulin Ratio 1.6 (0.9-2); Albumin Level 3.7 gm/dl (3.4-5.0); Bilirubin,Total 0.5 mg/dl (0.2-1.0); Est GFR (African American) 100.7 ml/min; Est GFR (Non-African American) 86.8 ml/min; Globulin 2.3 gm/dl (2.5-4.0); Magnesium 1.8 mg/dl (1.7-2.4); Potassium 3.4 mmol/L (3.5-5.1)
[2023-08-13] MEDS ORDERED: MIDAZOLAM HCL 1 MG/ML 2ML VIAL ONE (06:37)
[2023-08-13] MEDS ORDERED: fentaNYL citrate PF 100 MCG/2 ML VIAL ONE (06:37)
--- NOTE | 2023-08-13 06:43 | Anesthesiology Consultation ---
Date of Service August 13, 2023 Assessment & Plan (1) Encounter for pre-operative examination: Chart Review Chart Review: Acceptable Risk for Surgery History Surgery Operation Date: 08/08/23 16:40 Proposed Procedures p Esophagogastroduodenoscopy Dr Roldan - Diane Roldan, Operation Date: 08/13/23 07:15 Proposed Procedures p Right Port Insertion - Brian Kingston MD Height/Weight Height: 5 ft 2 in Weight: 62.46 kg Allergies Allergy/AdvReac Type Severity Reaction Status Date / Time metformin AdvReac Intermediate RESTLESSNES Verified 08/07/23 15:38 S Medications Home Medications Medication Instructions Recorded Confirmed Last Taken pantoprazole 40 mg tablet,delayed 40 mg PO QAM #90 tabs 09/27/22 08/07/23 08/07/23 release (Protonix) atorvastatin 40 mg tablet 40 mg PO HS #90 tabs 10/07/22 08/07/23 08/06/23 blood sugar diagnostic (OneTouch #100 ea 10/07/22 07/24/23 Unknown Ultra Test strips) cyanocobalamin (vitamin B-12) 1,000 mcg IM MONTHLY #1 ea 10/07/22 08/07/23 2 Weeks Ago 1,000 mcg/mL injection kit ~10/30/22 diltiazem HCl 360 mg capsule,24 360 mg PO QAM #90 caps 10/08/22 08/07/23 08/07/23 hr,extended release vortioxetine 20 mg tablet 20 mg PO QAM 11/22/22 08/07/23 08/07/23 (Trintellix) OneTouch Delica Plus Lancet 33 #300 ea 01/09/23 07/24/23 Unknown gauge (lancets) albuterol sulfate 90 mcg/actuation 2 puff inhalation Q4 PRN Shortness 02/24/23 08/07/23 Unknown aerosol inhaler Of Breath Or Wheezing #8.5 grams apixaban 5 mg tablet (Eliquis) 5 mg PO BID #60 tabs 02/24/23 08/07/23 08/07/23 08:00 capecitabine 150 mg tablet (Xeloda) 150 mg PO BID 02/28/23 08/07/23 08/07/23 08:00 diphenoxylate-atropine 2.5 1 tab PO QID PRN Diarrhea 02/28/23 08/07/23 Unknown mg-0.025 mg tablet insulin glargine 100 unit/mL 20 unit subcut QPM 02/28/23 08/07/23 08/06/23 subcutaneous solution (Lantus U-100 Insulin) meclizine 25 mg tablet 25 mg PO DAILY PRN 02/28/23 08/07/23 Unknown DIZZINESS/VERTIGO losartan 25 mg tablet 25 mg PO DAILY #90 tabs 05/09/23 08/07/23 08/07/23 pen needle, diabetic 32 gauge x #100 ea 06/12/23 07/24/23 Unknown " (Easy Comfort Pen [place]) tramadol 50 mg tablet 50 mg PO TID PRN pain (scale score 07/29/23 08/07/23 Unknown 7-10) #90 tabs levothyroxine 25 mcg tablet 37.5 mcg (1.5 x 25 mcg) PO QAM 07/30/23 08/07/23 08/07/23 #135 tabs hydroxyzine HCl 10 mg tablet 10 mg PO HS 08/07/23 08/07/23 08/06/23 tirzepatide 5 mg/0.5 mL 5 mg subcut WK 08/07/23 08/07/23 08/01/23 subcutaneous pen injector (James) Active Medications Generic Name Dose Route Start Last Admin Trade Name Freq PRN Reason Stop Dose Admin Acetaminophen 650 mg 08/07/23 16:30 08/07/23 21:22 Acetaminophen 325 Mg Tab PO 09/06/23 16:29 650 mg Q4H PRN Administration pain/fever Apixaban 5 mg 08/07/23 21:00 08/12/23 10:30 Apixaban 5 Mg Tablet PO 09/06/23 20:59 Not Given BID RUTH Atorvastatin Calcium 40 mg 08/07/23 21:00 08/12/23 21:44 Atorvastatin 40 Mg Tab PO 09/06/23 20:59 40 mg HS RUTH Administration Cyanocobalamin 1,000 mcg 08/08/23 09:00 08/08/23 10:22 Cyanocobalamin 1000 Mcg/Ml Vial IM 09/07/23 08:59 1,000 mcg Q30D RUTH Administration Diltiazem HCl 360 mg 08/08/23 09:00 08/12/23 13:32 Diltiazem Hcl 180 Mg Capcr PO 09/07/23 08:59 Not Given QAM RUTH Famotidine 20 mg 08/08/23 21:00 08/12/23 21:43 Famotidine 20 Mg Tab PO 09/07/23 20:59 20 mg BID RUTH Administration Hydromorphone HCl 0.5 mg 08/08/23 09:32 08/11/23 10:59 Hydromorphone Inj 0.5 Mg/0.5 Ml Syr IV 08/22/23 09:31 0.5 mg Q4H PRN Administration Pain Hydroxyzine HCl 10 mg 08/07/23 21:00 08/12/23 21:44 Hydroxyzine Hcl 10 Mg Tab PO 09/06/23 20:59 10 mg HS RUTH Administration Ertapenem 1,000 mg/ Syringe 10 mls @ 2 mls/min 08/12/23 09:30 08/12/23 09:49 IV 08/22/23 09:29 2 mls/min Q24H RUTH Administration Insulin Aspart 0 units 08/13/23 06:00 08/13/23 05:56 Insulin Aspart Per Unit Charge AK 09/12/23 05:59 Not Given Q6 RUTH Insulin Glargine 10 units 08/12/23 09:00 08/12/23 09:49 Lantus Per Unit Charge SC 09/11/23 08:59 10 units DAILY RUTH Administration Levothyroxine Sodium 37.5 mcg 08/08/23 09:00 08/12/23 13:31 Levothyroxine Sodium 25 Mcg Tablet PO 09/07/23 08:59 37.5 mcg QAM RUTH Administration Losartan Potassium 25 mg 08/08/23 09:00 08/12/23 13:31 Losartan Potassium 25 Mg Tab PO 09/07/23 08:59 25 mg DAILY RUTH Administration Melatonin 3 mg 08/07/23 23:33 08/12/23 21:47 Melatonin 3 Mg Tab PO 09/06/23 23:32 3 mg HS PRN Administration Insomnia Ondansetron HCl 4 mg 08/08/23 07:50 08/12/23 13:39 Ondansetron Inj 2 Mg/Ml 2 Ml Vial IV 09/07/23 07:49 4 mg Q4H PRN Administration Nausea Oxycodone HCl 5 mg 08/11/23 13:22 08/12/23 21:47 Oxycodone Hcl Ir 5 Mg Tab (Immediate Release) PO 08/25/23 13:21 5 mg Q4H PRN Administration Pain Pantoprazole Sodium 40 mg 08/08/23 21:00 08/12/23 21:42 Pantoprazole 40 Mg Tab PO 09/07/23 20:59 40 mg BID RUTH Administration Phenazopyridine HCl 200 mg 08/10/23 13:00 08/12/23 17:37 Phenazopyridine Hcl 200 Mg Tab PO 09/07/23 13:09 200 mg TID PRN Administration bladder spasm Vortioxetine 1 each 08/12/23 10:00 08/12/23 13:30 Vortioxetine Hydrobromide 20 Mg (Pom) PO 09/11/23 09:59 1 each DAILY RUTH Administration NPO Date Last Intake of Fluids: 08/12/23 Time Last Intake of Fluids: 23:59 Date Last Intake of Solids: 08/12/23 Time Last Intake of Solids: 23:59 Past Medical History Medical History (Updated 08/13/23 @ 06:43 by Maciel Fang MD) Anemia Breast skin changes Human metapneumovirus pneumonia Infected venous access port 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 History of blood transfusion Closed fracture of left distal fibula Breast cancer (12/18/15) "Abnormal left breast mammogram Status post core needle biopsy 12/18/2015 revealing infiltrating ductal carcinoma Estrogen receptor positive, progesterone receptor positive, HER-2/po negative Status post left needle localization lumpectomy and sentinel lymph node biopsy 01/04/2016 Stage pT1c pN0M0 Status post completion of radiation therapy 02/13/2016 received 3850 cGy utilizing accelerated partial breast irradiation." On 01/17/16 14:10 Deidre Orta wrote "Abnormal left breast mammogram Status post core needle biopsy 12/18/2015 revealing infiltrating ductal carcinoma Estrogen receptor positive, progesterone receptor positive, HER-2/po negative Status post left needle localization lumpectomy and sentinel lymph node biopsy 01/04/2016 Stage pT1c pN0M0" Generalized weakness Lung nodules monitoring Urinary frequency Pacemaker 2019, follows with Dr Ramires. checks Q6 months. Neuropathy Anxiety Aortic stenosis Mild aortic stenosis (MERLENE 1.6cm2; MG 7.8mmHg) per 12/2019 echo Diabetes mellitus, type 2 IDDM Degenerative disc disease Hx of cardiac pacemaker Implanted 2019 (tachy-monica syndrome), [employer] device Follows with Dr. Ramires Liver mass Pt denies but 05/17/20 PET scan shows 2.5 right hepatic lobe mass consistent with known hepatic metastasis Anemia h/o blood transfusions Infiltrating ductal carcinoma of left breast Initial Dx 2015- s/p lumpectomy, XRT and anastrozole Metastatic breast cancer 03/2020, follows with [facility] Atrial fibrillation follows with Dr Ramires Hypothyroidism Peripheral neuropathy Hands (B/L CTS) Obstructive sleep apnea "Resolved" s/p gastric bypass (? retested) Hypercholesterolemia Gastroesophageal reflux disease controlled, stable per pt Depression Chronic pain Cervical spine disease Full ROM per pt Exercise / Class Metabolic Activity III < 4 Walking/Shop/Light housework Past Family History Family History Unknown Breast cancer Emphysema lung Mother Diabetes Heart disease Father Heart disease Other No family history of adverse response to anesthesia Denies family history of Ovarian cancer Prostate cancer Coronary heart disease Colorectal cancer Past Surgical History Surgical History H/O breast biopsy (05/29/23) Skin, left breast, 2 punch biopsies: In office procedure Dr. Alvarez - Fibrosing dermatitis. - See comment Status post revision of total replacement of right knee History of removal of Port-a-Cath (01/11/22) Infected port right anterior chest removed Dr. Shah S/P cardiac pacemaker procedure 2019 History of surgery Right knee TKA revision with spacer (07/11/2021): SAB at L3-4 (x2 attempts) + PNB at [facility]. No issues noted per post-op anesthesia progress note. History of carpal tunnel surgery of left wrist 06/2021 History of carpal tunnel surgery of right wrist Port-A-Cath in place hx - 05/2020 since removed d/t infection at port 12/2021 History of colonoscopy History of evacuation of hematoma Hematoma right breast and right chest 08/31/13 Dr. Shah H/O bilateral hip replacements Status post repair of ventral hernia History of total knee arthroplasty R/L Status post total abdominal hysterectomy and bilateral salpingo-oophorectomy Status post lumbar spine surgery for decompression of spinal cord Status post partial mastectomy of left breast Status post panniculectomy History of section x1 Status post laparoscopic cholecystectomy Status post gastric bypass for obesity Status post arthroscopy of left shoulder Status post appendectomy Social History Smoking Status: Former smoker tobacco type: cigarettes Do You Dip or Chew Tobacco: No Hx Alcohol Use: No Alcohol type: beer and wine alcohol intake frequency: holidays/special occasions only Hx Substance Use: No substance use type: does not use Physical Exam Vital Signs Last Vital Signs Temp 36.6 C 08/12/23 22:46 Pulse 66 08/12/23 22:46 Resp 16 08/12/23 22:46 BP 154/77 H 08/12/23 22:46 Pulse Ox 97 08/12/23 22:46 O2 Del Method Room Air 08/12/23 22:46 Testing Laboratory Results 08/13/23 05:57 08/13/23 05:57 PT 12.8 Seconds (9.0-12.0) H 08/10/23 05:51 INR 1.2 (0.9-1.1) H 08/10/23 05:51 Hemoglobin A1c 5.5 % (4.5-5.6) 08/08/23 05:36 Urine Color [place] 08/10/23 21:10 Urine Appearance Slightly Cloudy (Clear) 08/10/23 21:10 Urine pH (4.5-7.5) 08/10/23 21:10 Ur Specific [place] 1.019 (1.000-1.030) 08/10/23 21:10 Urine Protein (Negative) 08/10/23 21:10 Urine Glucose (UA) (Negative) 08/10/23 21:10 Urine Ketones (Negative) 08/10/23 21:10 Urine Nitrite (Negative) 08/10/23 21:10 Ur Leukocyte Esterase (Negative) 08/10/23 21:10 Urine WBC (Auto) >30 /hpf (0-5) H 08/07/23 12:55 Urine RBC (Auto) >30 /hpf (0-4) H 08/07/23 12:55 U Hyaline Cast (Auto) 1-5 /lpf (0-5) 08/07/23 12:55 U Epithel Cells (Auto) >30 /lpf (0-5) H 08/07/23 12:55 Urine Bacteria (Auto) Negative (Negative) 08/07/23 12:55 Urine RBC 5-10 /hpf (0-4) H 08/10/23 21:10 Urine WBC >30 /hpf (0-5) H 08/10/23 21:10 Ur Epithelial Cells >30 /lpf (0-5) H 08/10/23 21:10 08/10/23 21:10 Urine Culture - Final Urine,Clean Catch Klebsiella pneumoniae ESBL 08/07/23 12:55 Urine Culture - Final Urine,Clean Catch Three types of organisms present, all moderate counts. Repeat collection recommended. No further identifications or sensitivities to follow. 08/13/23 08/12/23 08/12/23 05:49 20:24 20:23 POC Glucose 108 H 71 64 L* Echocardiogram Date: 08/11/23 EF: 60% LV Function: normal Valvular Disease: + (moderate - max grad 31mmHg)
[2023-08-13] MEDS: LACTATED RINGER'S 1,000 ML IV SCH (06:45)
[2023-08-13] MEDS ORDERED: ONDANSETRON INJ 2 MG/ML 2 ML VIAL IV PRN ×2 (06:59→09:14)
[2023-08-13] MEDS ORDERED: ATROPINE SULFATE 0.1 MG/ML 10ML SYR IV PRN (06:59)
[2023-08-13] MEDS ORDERED: PROMETHAZINE HCL 6.25 MG in SODIUM CHLORIDE 0.9% 50 ML IV PRN (06:59)
--- NOTE | 2023-08-13 07:10 | History & Physical Bridge Note ---
Date of Service August 13, 2023 History & Physical Bridge Note I have examined the patient, reviewed the History & Physical and in the interval since the performance of the History & Physical I have noted the following changes of clinical significance: no changes noted
[2023-08-13] MEDS: ceFAZolin 2,000 MG/15 ML IV PUSH IV ONE (07:17)
[2023-08-13] MEDS: ceFAZolin 2000MG 2,000 MG/15 ML SYR IV ONE (07:20)
[2023-08-13] MEDS: EPINEPHrine INJ 1 MG/ML AMP ONE (08:05)
[2023-08-13] MEDS: HEPARIN 100 UNIT/ML 5ML FLUSH ONE (08:05)
[2023-08-13] MEDS: LIDOCAINE 1% LOCAL 20 ML VIAL ONE (08:05)
[2023-08-13] MEDS ORDERED: DEXAMETHASONE SOD INJ 4 MG/ML VIAL ONE (08:17)
[2023-08-13] MEDS ORDERED: ONDANSETRON INJ 2 MG/ML 2 ML VIAL ONE (08:17)
[2023-08-13] MEDS ORDERED: PROPOFOL IV EMULSION 10 MG/ML 20 ML VIAL IV ONE (08:17)
[2023-08-13] MEDS ORDERED: SUCCINYLCHOLINE CHLORIDE 20 MG/ML 10 ML VIAL IV ONE (08:17)
[2023-08-13] MEDS ORDERED: ETOMIDATE 2 MG/ML 20 ML VIAL IV ONE (08:17)
--- NOTE | 2023-08-13 08:18 | Post Operative Brief Note ---
Immediate Post Op Note v1 Date of Surgery August 13, 2023 Pre & Post Diagnosis Operation Date: 08/13/23 07:15 <No data on this case meets the specified criteria> I identified the patient and participated in the time-out.: Yes Procedure Operation Date: 08/13/23 07:15 <No data on this case meets the specified criteria> Surgeon Brian Kingston MD Case Operator none Estimated Blood Loss 10 Findings Consistent with Post-Op Diagnosis
--- NOTE | 2023-08-13 08:26 | Operative Report ---
Post Operative Report Pre & Post Diagnosis Operation Date: 08/13/23 07:15 <No data on this case meets the specified criteria> I identified the patient and participated in the time-out.: Yes Procedure Operation Date: 08/13/23 07:15 <No data on this case meets the specified criteria> Right internal jugular Aport insertion Surgeon Brian Kingston MD Thrasher Feeder none Estimated Blood Loss 10 Findings Consistent with Post-Op Diagnosis Patent internal jugular vein Specimens None Drains None Anesthesia Type General Complications None Indications This is a 73-year-old female with metastatic breast cancer who is in need of access for chemotherapy. We talked in detail about the risks. She understands this and wishes to proceed with an a port placement. Description of Procedure The patient was taken to the OR and underwent excellent general anesthesia. Their neck and chest were prepped and draped in normal sterile fashion. They were placed in slight Trendelenburg position. The internal jugular vein was identified preoperatively with an ultrasound. The ultrasound was then draped sterilely and used to identify the vein. An incision was made and a 18-gauge seeker needle was inserted into her vein without difficulty. There was good backflow of dark venous blood. A wire was then inserted into her right internal jugular vein and confirmed with fluoroscopy to be in good position. The wire was then secured. After an incision was made a port cavity was then created below her collarbone using cautery. The catheter was then tunneled from the port site to the insertion site of the wire. The catheter was then fixed to the port and placed into the port cavity site. The port was secured with silk sutures. Fluoroscopy was then again used to measure the catheter to ensure a good position to just about the level of the right atrium in the superior vena cava. Once this was done a dilator and sheath were then placed using a Seldinger technique and advanced into her vein. The wire and the dilator were removed leaving the sheath in place. The catheter was then placed through the sheath. The sheath was then removed. The catheter was then checked with fluoroscopy showed to be in good position. The incision of the wire insertion site was closed with a Vicryl suture. The port cavity site was closed with deep Vicryl's and a running subcuticular Vicryl suture. Dermabond was used to reinforce the incisions. A sterile dressing was applied. The patient tolerated the procedure well and sent to the postop recovery for period of observation. A portable chest x-ray will be ordered to check placement I attest to the content of the Intraoperative Record and any orders documented therein. Any exceptions are noted below.
[2023-08-13] MEDS: fentaNYL citrate PF 100 MCG/2 ML VIAL IV PRN (08:29)
--- NOTE | 2023-08-13 08:42 | XRay Report ---
XR chest 1V portable CLINICAL HISTORY: line placement COMPARISON STUDY: Chest CT August 09, 2023. FINDINGS: There is no pneumothorax following placement of a right internal jugular [id number]. The tip is partially obscured by pacer leads but is within the SVC. Dual-lead left subclavian pacer is i n place. There is a left shoulder arthroplasty. No consolidation is present. Cardiomediastinal silhou ette is stable. IMPRESSION: No pneumothorax following placement of a right internal jugular [id number]. ACT 112: Negative or not required by law. Electronically signed by: Eladio Keane M.D. 08/13/2023 8:40 AM
[2023-08-13] MEDS ORDERED: MoRPHine SULFATE 2 MG/ML CARP IV PRN (09:14)
[2023-08-13] MEDS ORDERED: MoRPHine SULFATE 4 MG/ML 1 ML CARP\\VIAL IV PRN (09:14)
[2023-08-13] MEDS ORDERED: HYDROCODONE/ACETAMOPHEN 5/325MG TAB PO PRN ×2 (09:14)
--- NOTE | 2023-08-13 10:49 | Anesthesiology Progress Note ---
Date of Service August 13, 2023 Anesthesia Post Procedure Vital Signs Vital Signs: Temp Pulse Pulse Resp BP Pulse Ox O2 Del Method 08/13/23 10:14 36.9 C 60 18 166/65 H 95 Room Air 08/13/23 09:44 36.6 C 66 18 144/72 H 95 Room Air 08/13/23 09:14 36.5 C 61 16 145/78 H 95 Room Air 08/13/23 09:00 60 12 152/66 H 96 Room Air 08/13/23 08:50 36.9 C 60 14 161/68 H 96 Room Air 08/13/23 08:40 60 17 150/74 H 99 Room Air 08/13/23 08:30 60 13 144/83 H 100 Room Air 08/13/23 08:23 36.2 C L 60 16 192/68 H 100 Oxymask 08/13/23 06:47 36.8 C 60 18 131/64 97 Room Air 08/12/23 22:46 36.6 C 66 16 154/77 H 97 Room Air 08/12/23 21:47 Room Air 08/12/23 15:09 37.2 C 61 18 125/68 97 Room Air O2 Flow Rate 08/13/23 10:14 08/13/23 09:44 08/13/23 09:14 08/13/23 09:00 08/13/23 08:50 08/13/23 08:40 08/13/23 08:30 08/13/23 08:23 7 08/13/23 06:47 08/12/23 22:46 08/12/23 21:47 08/12/23 15:09 Pain Intensity Lower Abdomen: Pain Intensity: 9 Generalized: Pain Intensity: 4 Transfer of Care Handoff Completed per policy Notes Mental Status: alert / awake / arousable Patient Amnestic to Procedure: Yes Nausea / Vomiting: adequately controlled Pain: adequately controlled Airway Patency, RR, SpO2: stable & adequate BP & HR: stable & adequate Hydration State: stable & adequate Anesthetic Complications: no major complications apparent
[2023-08-13] MEDS: POTASSIUM CHLORIDE CRTAB 20 MEQ TABCR PO STA (11:33)
[2023-08-13] MEDS ORDERED: oxyCODONE HCL IR 5 MG TAB (IMMEDIATE RELEASE) PO PRN (12:18)
--- NOTE | 2023-08-13 12:24 | Hospitalist Progress Note ---
Date of Service August 13, 2023 Assessment & Plan (1) Nausea & vomiting: Plan: 73yo female with metastatic breast CA w/ liver mets here w intractable N/V after recently starting on Mounjaro GI consulted for consideration for EGD-none needed, advised increasing PPI to bid and adding pepcid Possible gallstone seen in cystic duct remnant-no need for ERCP, LFTs normal MRCP negative Continues to have some N/V if eats her whole plate of food. Has h/o gastric bypass and lost 200 lbs since that time. Mounjaro causing long lasting effect---> advised small portions of food to avoid vomiting Zofran, Phenergan prn Improving with eating smaller portions (2) Metastatic breast cancer: Plan: Stage IV metastatic breast carcinoma with mets to the liver. Follows with oncology, Dr De Luna CTAP findings w/ progression of hepatic disease on Xeloda oral chemo stopped given progressive disease and planning for liposomal doxorubicin. CT chest obtained to eval for metastatic disease which was NEGATIVE. ECHO prior to starting chemo shows moderate , otherwise normal Surgery placed port on 08/12-increase oxycodone dose to 5-10mg po q4h prn Dr De Luna consulted/seen while inpatient, working on arranging outpt chemo and possible start later this week after port placement (3) Urinary tract infection: Plan: With ongoing dysuria, h/o recurrent UTIs W/ nephrolithiasis but no ureterolithiasis Ur cx with ESBL Klebsiella--changed ceftriaxone to Invanz on 08/11 With ongoing dysuria--> make pyridium scheduled, hopefully will improve now that on Invanz can dc to home on po Cipro (4) Abdominal pain: Plan: worsened since starting mounjaro but UTI and liver mets could be contributing Also with h/o constipation-now resolved Improved now with PPI BID, pepcid BID, and treating UTI continue oxycodone prn (5) Chronic GERD: Plan: PPI increased to BID and pepcid added BID per GI plan for outpt EGD if having ongoing issues Fecal occult/stool PCR negative (6) Hypothyroidism: Plan: TSH wnl on check Remains on LT4 37.5mcg daily (7) Pain due to interstitial cystitis: Plan: pyridium increased to 200mg TID and make scheduled start methenamine on discharge (8) Diabetes type 2, controlled: Plan: a1c 5.5 -- was on Trulicity but was not able to obtain and then placed on mounjaro Would NOT resume her mounjaro or Trulicity on discharge given about to resume chemotherapy and this will cause issues with N/V most likely alone HgbA1C low regardless Lantus and Novolog here recommend once daily dose of Lantus at home on discharge (9) Atrial fibrillation: Plan: Eliquis BID on hold for surgery but can likely resume tomorrow in normal rhythm on exam (10) Constipation: Plan: resolved, then with some mild diarrhea Stool PCR and C. diff negative (11) Recurrent UTI (urinary tract infection): Plan: following by [facility] alberts (12) Anemia: Plan: chronic, likely of chronic disease and from chemotherapy, hgb stable at 9-10 for 6-8 months,macrocytic iron studies w/o significant deficiency. b12/folate replete periph smear negative TSH wnl fecal occult NEGATIVE (13) Hypokalemia: Plan: remains mildly low 2nd to poor PO intake and n/v PO replacement ordered follow BMP Plan DVT proph: eliquis BID on hold for port placement but resume tomorrow Dispo- Continued inpatient stay, can dc to home tomorrow if pain improving, tolerating po Admission and Anticipated Discharge Date Admission Date: August 09, 2023 Anticipated date of discharge: 08/14/23 Subjective Pt had port placement today, angry it was so early in the AM and she "wasn't prepared." Having some pain on right side of neck at port placement site. Also with ongoing dysuria. Had small amount of vomit after breakfast this AM and was eating lunch when I saw her. Physical Exam Constitutional: WD/WN, vitals as above Respiratory: normal respiratory effort, lungs clear to auscultation Cardiovascular: RRR, no murmur, no edema Gastrointestinal (Abdomen): Inspection/Auscultation: normal bowel sounds; abdomen not distended Percussion/Palpation: + abdomen tender (mild in mid abdomen, no guarding) and abdomen soft Psychiatric: Orientation: alert and oriented x 3 Affect: + irritable affect Results & Data Results & Data Vital Signs (Past 12 Hours) Vital Signs Temp Pulse Resp BP Pulse Ox O2 Del Method O2 Flow Rate 08/13/23 10:56 36.6 C 93 H 16 143/62 H 95 Room Air 08/13/23 10:14 36.9 C 60 18 166/65 H 95 Room Air 08/13/23 09:44 36.6 C 66 18 144/72 H 95 Room Air 08/13/23 09:14 36.5 C 61 16 145/78 H 95 Room Air 08/13/23 09:00 60 12 152/66 H 96 Room Air 08/13/23 08:50 36.9 C 60 14 161/68 H 96 Room Air 08/13/23 08:40 60 17 150/74 H 99 Room Air 08/13/23 08:30 60 13 144/83 H 100 Room Air 08/13/23 08:23 36.2 C L 60 16 192/68 H 100 Oxymask 7 08/13/23 06:47 36.8 C 60 18 131/64 97 Room Air Laboratory Results CBC, BMP, mag reviewed PG Care Time/CCT Total # of Minutes Spent Total Time Spent with Patient: Total time spent is greater than 50% in coordination of care (as documented) at patient's floor/unit and/or counseling patient: Coding Level of Care Code 79517 SUB INP/OBS CARE 2/35MIN Diagnoses Nausea & vomiting R11.2 Vomiting type: unspecified Metastatic breast cancer C50.919 Urinary tract infection N30.01 Hematuria presence: with hematuria Urinary tract infection type: acute cystitis Abdominal pain R10.30 Abdominal location: lower abdomen, unspecified Chronic GERD K21.9 Hypothyroidism, unspecified type E03.9 Hypothyroidism type: unspecified Pain due to interstitial cystitis N30.10 Controlled type 2 diabetes mellitus without complication, with long-term current use of insulin E11.9; Z79.4 Diabetes mellitus complication status: without complication Diabetes mellitus parts counterman insulin use: with parts counterman use Atrial fibrillation, unspecified type I48.91 Atrial fibrillation type: unspecified Constipation K59.00 Recurrent UTI (urinary tract infection) N39.0 Anemia D64.9 Anemia type: unspecified type Hypokalemia E87.6 (1) Nausea & vomiting Vomiting type: unspecified Qualified Code(s): R11.2 - Nausea with vomiting, unspecified (3) Urinary tract infection Hematuria presence: with hematuria Urinary tract infection type: acute cystitis Qualified Code(s): N30.01 - Acute cystitis with hematuria (4) Abdominal pain Abdominal location: lower abdomen, unspecified Qualified Code(s): R10.30 - Lower abdominal pain, unspecified (6) Hypothyroidism Hypothyroidism type: unspecified Qualified Code(s): E03.9 - Hypothyroidism, unspecified (8) Diabetes type 2, controlled Diabetes mellitus complication status: without complication Diabetes mellitus senior care insulin use: with senior care use Qualified Code(s): E11.9 - Type 2 diabetes mellitus without complications; Z79.4 - residential (current) use of insulin (9) Atrial fibrillation Atrial fibrillation type: unspecified Qualified Code(s): I48.91 - Unspecified atrial fibrillation (12) Anemia Anemia type: unspecified type Qualified Code(s): D64.9 - Anemia, unspecified
[2023-08-13] MEDS: bisacodyL 10 MG SUPP PR STA (13:27)
[2023-08-13] MEDS: PHENAZOPYRIDINE HCL 200 MG TAB PO SCH (13:27)
--- NOTE | 2023-08-13 13:36 | Pharmacy Report ---
Pharmacy Glycemic Short Note 2 - Date of Service August 13, 2023 - Glycemic Short BSG Results (Last 24 hours): 08/12/23 08/12/23 08/12/23 16:30 20:23 20:24 Glucose POC Glucose 185 H 64 L* 71 08/13/23 08/13/23 08/13/23 05:49 05:57 08:25 Glucose 105 H POC Glucose 108 H 116 H 08/13/23 08/13/23 09:25 11:29 Glucose POC Glucose 147 H 263 H OUTPATIENT ANTIDIABETIC REGIMEN: * Lantus 20 units QPM, Mounjaro 5 mg SQ weekly ASSESSMENT: 08/12 * Faith received 17 units of insulin yesterday (10 were basal) * Fasting BSG within goal range this AM, continue current regimen * Hypoglycemic at bedtime, will increase goal range and loosen correction factor 08/10 * 73 year old admitted with refractory nausea/vomiting. Concerns for UTI, receiving antibiotics. Pharmacy consulted for glycemic management. Patient NPO this AM, but then changed to diet. Talked with RN and patient ended up eating a late breakfast, no insulin coverage given - BSG at lunch time was 291 mg/dL. * Now that patient is eating, anticipate BSGs to rise. Will plan to tighten novolog with dinner. Patient's fasting BSGs within range, however anticipate to rise with increased PO intake. Will provide scale for basal insulin PLAN FOR INPATIENT GLYCEMIC CONTROL: * Hold outpatient oral diabetes medications * Basal insulin * Lantus 10 units SQ daily * Bolus insulin * NovoLog per scale ACHS or Q6hrs while NPO * Goal Range: Low 120 mg/dL - High 160 mg/dL * Correction Factor: 50 mg/dL/unit * Nutritional / Prandial insulin per carb ratio of 1 unit per 10 grams CHO consumed
[2023-08-13] MEDS ORDERED: oxyBUTYnin chloride 5 MG TAB PO PRN (15:43)
[2023-08-13] MEDS: oxyCODONE HCL IR 5 MG TAB (IMMEDIATE RELEASE) PO PRN (15:49)
[2023-08-13] MEDS: oxyBUTYnin chloride 5 MG TAB PO STA (16:06)
[2023-08-14 07:13] LABS: Basophils # (auto) 0.05 K/uL (0.00-0.20); Basophils % (auto) 0.9 %; Eosinophils # (auto) 0.01 K/uL (0.00-0.50); Eosinophils % (auto) 0.2 %; Hematocrit (blood only) 26.7 % (37.0-47.0); Hemoglobin 8.9 g/dl (12.0-16.0); Immature Granulocytes # (auto) 0.02 K/uL (0.01-0.20); Immature Granulocytes % (auto) 0.3 %; Lymphocytes % (auto) 20.9 %; Mean Corpuscular Hemoglobin 34.5 pg (25.0-34.0); Mean Corpuscular Hgb Conc 33.3 g/dL (32.0-36.0); Mean Corpuscular Volume 103.5 fL (80.0-100.0); Mean Platelet Volume 11.4 fL (9.4-12.4); Monocytes # (auto) 0.61 K/uL (0.11-0.59); Monocytes % (auto) 10.6 %; Neutrophils # (auto) 3.84 K/uL (1.40-6.50); Neutrophils % (auto) 67.1 %; Platelet Count 236 K/uL (130-400); RDW Coefficient of Variation 18.9 % (11.5-14.5); RDW Standard Deviation 71.4 fL (36.4-46.3); Red Blood Count 2.58 M/uL (4.20-5.40); White Blood Count 5.73 K/ul (4.8-10.8)
[2023-08-14 07:39] LABS: Calcium 9.3 mg/dl (8.6-10.3); Est GFR (African American) 101.2 ml/min; Est GFR (Non-African American) 87.3 ml/min; Potassium 3.9 mmol/L (3.5-5.1)
--- NOTE | 2023-08-14 10:36 | Surgery Progress Note ---
Date of Service August 14, 2023 Assessment & Plan (1) Metastases to the liver: Plan: port in place OK to use now dressings off tonight and shower as desired post maintenance per oncology Admission and Anticipated Discharge Date Admission Date: August 09, 2023 Subjective feels well incisional pain Review of Systems Constitutional: no fever and no chills Respiratory: no cough and no dyspnea Cardiovascular: no chest pain Gastrointestinal: no abdominal pain Physical Exam Constitutional: WD/WN, vitals as above Respiratory: dressing dry Results & Data Vital Signs (Past 12 Hours) Vital Signs Temp Pulse Resp BP Pulse Ox O2 Del Method 08/14/23 07:12 36.7 C 65 16 151/77 H 98 Room Air 08/14/23 04:42 36.4 C L 66 16 142/63 H 97 Room Air 08/14/23 00:24 36.4 C L 66 16 126/72 95 Room Air
[2023-08-14] MEDS: oxyBUTYnin chloride 5 MG TAB PO SCH (12:01)
[2023-08-14] MEDS: diphenhydrAMINE Capsule 25 MG CAP PO PRN (15:45)
--- NOTE | 2023-08-14 17:59 | Hospitalist Progress Note ---
Date of Service August 14, 2023 Assessment & Plan (1) Nausea & vomiting: Plan: 73yo female with metastatic breast CA w/ liver mets here w intractable N/V after recently starting on Mounjaro GI consulted for consideration for EGD-none needed, advised increasing PPI to bid and adding pepcid Likely gallstone seen in cystic duct remnant on CT, US-no need for ERCP, LFTs normal MRCP negative Finally her N/V is improved and she is focusing on eating smaller portions of food given the effect of Mounjaro. Has h/o gastric bypass and lost 200 lbs since that time Zofran, Phenergan prn Repeat CT a/p on 08/13 due to ongoing abd pains--> shows ileus vs low grade/partial SBO, moderate fecal retention, and bilat nephrolithiasis but no ureterolithiasis. Ileus could also be from Mounjaro. She is passing loose still multiple times a day so perhaps overflow stool? Consider Miralax to clean out colon continue oxycodone prn pain as some pain also from liver mets (2) Metastatic breast cancer: Plan: Stage IV metastatic breast carcinoma with mets to the liver. Follows with oncology, Dr De Luna CTAP findings w/ progression of hepatic disease on Xeloda oral chemo stopped given progressive disease and planning for liposomal doxorubicin. CT chest obtained to eval for metastatic disease which was NEGATIVE. ECHO prior to starting chemo shows moderate , otherwise normal Surgery placed port on 08/12-increase oxycodone dose to 5-10mg po q4h prn Dr De Luna consulted/seen while inpatient, working on arranging outpt chemo and possible start next week (3) Urinary tract infection: Plan: With ongoing dysuria, h/o recurrent UTIs W/ nephrolithiasis but no ureterolithiasis Ur cx with ESBL Klebsiella--changed ceftriaxone to Invanz on 08/11--> last day of tx will be 08/17 but could convert to po Cipro if discharged before then With ongoing dysuria--> pyridium scheduled not helping--> discontinue Made oxybutynin bid scheduled (4) Abdominal pain: Plan: worsened since starting mounjaro but UTI and liver mets could be contributing, ileus on CT 08/13 as above Also with h/o constipation-now resolved Improved now with PPI BID, pepcid BID, and treating UTI continue oxycodone prn consider Miralax for constipation (5) Chronic GERD: Plan: PPI increased to BID and pepcid added BID per GI plan for outpt EGD if having ongoing issues Fecal occult/stool PCR negative (6) Hypothyroidism: Plan: TSH wnl on check Remains on LT4 37.5mcg daily (7) Pain due to interstitial cystitis: Plan: pt unaware of this diagnosis start methenamine on discharge for recurrent UTI as per Urology (8) Diabetes type 2, controlled: Plan: a1c 5.5 -- was on Trulicity but was not able to obtain and then placed on mounjaro Would NOT resume her mounjaro or Trulicity on discharge given about to resume chemotherapy and this will cause issues with N/V most likely alone HgbA1C low regardless Lantus and Novolog here recommend once daily dose of Lantus at home on discharge (9) Atrial fibrillation: Plan: Eliquis BID resumed this AM after held for port surgery in normal rhythm on exam (10) Constipation: Plan: resolved, then with some mild diarrhea Stool PCR and C. diff negative (11) Recurrent UTI (urinary tract infection): Plan: following by [facility] alberts (12) Anemia: Plan: chronic, likely of chronic disease and from chemotherapy, hgb stable at 9-10 for 6-8 months,macrocytic iron studies w/o significant deficiency. b12/folate replete periph smear negative TSH wnl fecal occult NEGATIVE Plan DVT proph: eliquis BID Dispo- Continued inpatient stay, can dc to home once pain improving, tolerating po. PT/OT ordered Admission and Anticipated Discharge Date Admission Date: August 09, 2023 Subjective Pt continues to c/o pain all across her entire abdomen and some down into her bladder region, still with severe burning pains with urination. She does feel better with her nausea-no vomiting now since yesterday AM. Says she is not leaving the hospital until her pain is under control even if she has to stay through [facility]. This AM she made mention to one of the nurses that she might not want to do chemo and had thoughts of being better off . I asked the Psych nurse liaison to see her and she does not have true SI. She is also having some itching and requests benadryl which she takes for this at home Physical Exam Constitutional: WD/WN, vitals as above Respiratory: normal respiratory effort, lungs clear to auscultation Cardiovascular: RRR, no murmur, no edema Gastrointestinal (Abdomen): Inspection/Auscultation: normal bowel sounds; abdomen not distended Percussion/Palpation: + abdomen tender (mild in mid abdomen, no guarding) and abdomen soft Skin: no rashes Psychiatric: Orientation: alert and oriented x 3 Affect: + irritable affect Results & Data Results & Data Vital Signs (Past 12 Hours) Vital Signs Temp Pulse Resp BP Pulse Ox O2 Del Method 08/14/23 15:38 36.6 C 59 L 14 148/70 H 97 Room Air 08/14/23 11:13 36.7 C 67 16 153/65 H 97 Room Air 08/14/23 07:12 36.7 C 65 16 151/77 H 98 Room Air Laboratory Results BMP reviewed Diagnostic Findings CT abd/pel reviewed Abdomen/Pelvis CT 08/14/23 17:40 CT SCAN OF THE ABDOMEN AND PELVIS WITHOUT IV CONTRAST CLINICAL HISTORY: Generalized abdominal pain. COMPARISON STUDY: Abdominal CT dated 08/07/2023. TECHNIQUE: CT scan of the abdomen and pelvis is performed from the lung bases to the proximal femora. Images are reviewed in the axial, sagittal, and coronal planes. IV contrast was not administered for this examination. A dose lowering technique was utilized adhering to the principles of ALARA. The examination is degraded by metallic streak artifact from extensive spinal hardware and bilateral hip arthroplasties. CT DOSE: 927.65 mGy.cm FINDINGS: Lung bases: The heart is enlarged and without pericardial effusion. Pacemaker leads are in place. There are coronary artery calcifications. There is diminished attenuation of the cardiac blood pool is compared to myocardium suggesting anemia. There are scattered calcified granulomas. No airspace consolidation or pleural effusion is identified. Liver: The unenhanced liver is normal in size, contour, and attenuation. There is no intrahepatic biliary ductal dilatation. There is evidence of multifocal hepatic metastatic disease. This has no significant change from 08/07/2023. At least 5 right lobe lesions are identified and measure up to 4.1 cm. Gallbladder: Surgically absent noting clips in the gallbladder fossa. There is a calcified gallstone within a cystic duct remnant seen on image #85. Spleen: Normal in size and attenuation. Pancreas: The unenhanced pancreas is moderately atrophic and grossly unremarkable. Adrenal glands: Unremarkable. Kidneys: The unenhanced kidneys are normal in size and without hydronephrosis. Numerous bilateral nonobstructing renal calculi measure up to 9 mm. No ureteral stone is seen. There is no evidence of contour deforming renal mass lesion. Abdominal vasculature: The abdominal aorta is normal in course and caliber noting mild atherosclerotic calcification. Stomach and bowel: A tiny hiatal hernia is noted. Postoperative change is seen in the stomach. A small bowel anastomosis is present in the pelvis. There is moderate colonic fecal retention. There are mildly distended and fluid-filled small bowel loops without which measure up to 3.3 cm diameter. No discrete transition point is identified and there is no evidence of high-grade obstruction. There is no pneumatosis intestinalis or portal venous gas. No thick walled bowel loops are seen. The appendix is not visualized. Peritoneum: There is no intraperitoneal free air or abdominal ascites. There is evidence of previous ventral hernia repair. Lymphadenopathy: None. Pelvic viscera: Evaluation of the pelvis is degraded by streak artifact from bilateral hip arthroplasties. The bladder is normal as visualized. The uterus is surgically absent. No adnexal lesion is seen. Skeletal structures: The skeletal structures are osteopenic. Spondylotic and extensive postsurgical changes noted in the lumbar spine. There are chronic/healed right-sided rib fractures. There is chronic deformity of the sacrum. No lytic or blastic lesions are seen. Bilateral hip arthroplasties are in place IMPRESSION: 1. There are distended and fluid-filled loops of small bowel as above, with no discrete transition point identified and no evidence of high-grade obstruction. This could represent a nonspecific enteritis, ileus, or possibly a low grade/partial obstruction. Clinical correlation will be essential. 2. Multifocal hepatic metastatic disease has no significantly changed as compared to 08/07/2023. 3. Cardiomegaly and cardiac pacemaker. 4. There is a large gallstone contained within a dilated cystic duct remnant. 5. Bilateral nephrolithiasis. 6. Additional findings as above. ACT 112: Negative or not required by law. Electronically signed by: Noe Carrillo M.D. 08/14/2023 7:13 PM PG Care Time/CCT Total # of Minutes Spent Total Time Spent with Patient: Total time spent is greater than 50% in coordination of care (as documented) at patient's floor/unit and/or counseling patient: Coding Level of Care Code 66340 SUB INP/OBS CARE 350MIN Diagnoses Nausea & vomiting R11.2 Vomiting type: unspecified Metastatic breast cancer C50.919 Urinary tract infection N30.01 Hematuria presence: with hematuria Urinary tract infection type: acute cystitis Abdominal pain R10.30 Abdominal location: lower abdomen, unspecified Chronic GERD K21.9 Hypothyroidism, unspecified type E03.9 Hypothyroidism type: unspecified Pain due to interstitial cystitis N30.10 Controlled type 2 diabetes mellitus without complication, with long-term current use of insulin E11.9; Z79.4 Diabetes mellitus complication status: without complication Diabetes mellitus penitentiary insulin use: with penitentiary use Atrial fibrillation, unspecified type I48.91 Atrial fibrillation type: unspecified Constipation K59.00 Recurrent UTI (urinary tract infection) N39.0 Anemia D64.9 Anemia type: unspecified type (1) Nausea & vomiting Vomiting type: unspecified Qualified Code(s): R11.2 - Nausea with vomiting, unspecified (3) Urinary tract infection Hematuria presence: with hematuria Urinary tract infection type: acute cystitis Qualified Code(s): N30.01 - Acute cystitis with hematuria (4) Abdominal pain Abdominal location: lower abdomen, unspecified Qualified Code(s): R10.30 - Lower abdominal pain, unspecified (6) Hypothyroidism Hypothyroidism type: unspecified Qualified Code(s): E03.9 - Hypothyroidism, unspecified (8) Diabetes type 2, controlled Diabetes mellitus complication status: without complication Diabetes mellitus penitentiary insulin use: with ocean transportation intermediary use Qualified Code(s): E11.9 - Type 2 diabetes mellitus without complications; Z79.4 - alf (current) use of insulin (9) Atrial fibrillation Atrial fibrillation type: unspecified Qualified Code(s): I48.91 - Unspecified atrial fibrillation (12) Anemia Anemia type: unspecified type Qualified Code(s): D64.9 - Anemia, unspecified
--- NOTE | 2023-08-14 19:15 | CT Scan Report ---
CT SCAN OF THE ABDOMEN AND PELVIS WITHOUT IV CONTRAST CLINICAL HISTORY: Generalized abdominal pain. COMPARISON STUDY: Abdominal CT dated 08/07/2023. TECHNIQUE: CT scan of the abdomen and pelvis is performed from the lung bases to the proximal femora. Images are reviewed in the axial, sagittal, and coronal planes. IV contrast was not administered for this examination. A dose lowering technique was utilized adhering to the principles of ALARA. The ex amination is degraded by metallic streak artifact from extensive spinal hardware and bilateral hip ar throplasties. CT DOSE: 927.65 mGy.cm FINDINGS: Lung bases: The heart is enlarged and without pericardial effusion. Pacemaker leads are in place. The re are coronary artery calcifications. There is diminished attenuation of the cardiac blood pool is c ompared to myocardium suggesting anemia. There are scattered calcified granulomas. No airspace consol idation or pleural effusion is identified. Liver: The unenhanced liver is normal in size, contour, and attenuation. There is no intrahepatic lindsay iary ductal dilatation. There is evidence of multifocal hepatic metastatic disease. This has no signi ficant change from 08/07/2023. At least 5 right lobe lesions are identified and measure up to 4.1 cm. Gallbladder: Surgically absent noting clips in the gallbladder fossa. There is a calcified gallstone within a cystic duct remnant seen on image #85. Spleen: Normal in size and attenuation. Pancreas: The unenhanced pancreas is moderately atrophic and grossly unremarkable. Adrenal glands: Unremarkable. Kidneys: The unenhanced kidneys are normal in size and without hydronephrosis. Numerous bilateral non obstructing renal calculi measure up to 9 mm. No ureteral stone is seen. There is no evidence of cont our deforming renal mass lesion. Abdominal vasculature: The abdominal aorta is normal in course and caliber noting mild atheroscleroti c calcification. Stomach and bowel: A tiny hiatal hernia is noted. Postoperative change is seen in the stomach. A smal l bowel anastomosis is present in the pelvis. There is moderate colonic fecal retention. There are mi ldly distended and fluid-filled small bowel loops without which measure up to 3.3 cm diameter. No dis crete transition point is identified and there is no evidence of high-grade obstruction. There is no pneumatosis intestinalis or portal venous gas. No thick walled bowel loops are seen. The appendix is not visualized. Peritoneum: There is no intraperitoneal free air or abdominal ascites. There is evidence of previous ventral hernia repair. Lymphadenopathy: None. Pelvic viscera: Evaluation of the pelvis is degraded by streak artifact from bilateral hip arthroplas ties. The bladder is normal as visualized. The uterus is surgically absent. No adnexal lesion is seen . Skeletal structures: The skeletal structures are osteopenic. Spondylotic and extensive postsurgical c hanges noted in the lumbar spine. There are chronic/healed right-sided rib fractures. There is chroni c deformity of the sacrum. No lytic or blastic lesions are seen. Bilateral hip arthroplasties are in place IMPRESSION: 1. There are distended and fluid-filled loops of small bowel as above, with no discrete transition po int identified and no evidence of high-grade obstruction. This could represent a nonspecific enteriti s, ileus, or possibly a low grade/partial obstruction. Clinical correlation will be essential. 2. Multifocal hepatic metastatic disease has no significantly changed as compared to 08/07/2023. 3. Cardiomegaly and cardiac pacemaker. 4. There is a large gallstone contained within a dilated cystic duct remnant. 5. Bilateral nephrolithiasis. 6. Additional findings as above. ACT 112: Negative or not required by law. Electronically signed by: Noe Carrillo M.D. 08/14/2023 7:13 PM
[2023-08-15] MEDS: HEPARIN 100 UNIT/ML 5ML FLUSH FLUSH PRN (10:29)
--- NOTE | 2023-08-15 12:31 | Pharmacy Report ---
Pharmacy Glycemic Short Note 2 - Date of Service August 15, 2023 - Glycemic Short BSG Results (Last 24 hours): 08/14/23 08/14/23 08/15/23 16:49 20:32 07:57 POC Glucose 104 H 189 H 129 H 08/15/23 11:38 POC Glucose 143 H OUTPATIENT ANTIDIABETIC REGIMEN: * Lantus 20 units QPM, Mounjaro 5 mg SQ weekly ASSESSMENT: 08/14 * Faith received 25 units of insulin yesterday (10 were basal) * Fasting BSG within goal range this AM, continue current regimen * No change to Novolog 08/12 * Faith received 17 units of insulin yesterday (10 were basal) * Fasting BSG within goal range this AM, continue current regimen * Hypoglycemic at bedtime, will increase goal range and loosen correction factor 08/10 * 73 year old admitted with refractory nausea/vomiting. Concerns for UTI, receiving antibiotics. Pharmacy consulted for glycemic management. Patient NPO this AM, but then changed to diet. Talked with RN and patient ended up eating a late breakfast, no insulin coverage given - BSG at lunch time was 291 mg/dL. * Now that patient is eating, anticipate BSGs to rise. Will plan to tighten novolog with dinner. Patient's fasting BSGs within range, however anticipate to rise with increased PO intake. Will provide scale for basal insulin PLAN FOR INPATIENT GLYCEMIC CONTROL: * Hold outpatient oral diabetes medications * Basal insulin * Lantus 10 units SQ daily * Bolus insulin * NovoLog per scale ACHS or Q6hrs while NPO * Goal Range: Low 120 mg/dL - High 160 mg/dL * Correction Factor: 50 mg/dL/unit * Nutritional / Prandial insulin per carb ratio of 1 unit per 10 grams CHO consumed
--- NOTE | 2023-08-15 15:52 | Hospitalist Progress Note ---
Date of Service August 15, 2023 Assessment & Plan (1) Nausea & vomiting: Plan: 73yo female with metastatic breast CA w/ liver mets here w intractable N/V after recently starting on Mounjaro GI consulted for consideration for EGD-none needed, advised increasing PPI to bid and adding pepcid Likely gallstone seen in cystic duct remnant on CT, US-no need for ERCP, LFTs normal MRCP negative Finally her N/V is improved and she is focusing on eating smaller portions of food given the effect of Mounjaro. Has h/o gastric bypass and lost 200 lbs since that time Zofran, Phenergan prn Repeat CT a/p on 08/13 due to ongoing abd pains--> shows ileus vs low grade/partial SBO, moderate fecal retention, and bilat nephrolithiasis but no ureterolithiasis. Ileus could also be from Mounjaro. She is passing loose still multiple times a day so perhaps overflow stool? Consider Miralax to clean out colon continue oxycodone prn pain as some pain also from liver mets (2) Metastatic breast cancer: Plan: Stage IV metastatic breast carcinoma with mets to the liver. Follows with oncology, Dr De Luna CTAP findings w/ progression of hepatic disease on Xeloda oral chemo stopped given progressive disease and planning for liposomal doxorubicin. CT chest obtained to eval for metastatic disease which was NEGATIVE. ECHO prior to starting chemo shows moderate , otherwise normal Surgery placed port on 08/12-increase oxycodone dose to 5-10mg po q4h prn Dr De Luna consulted/seen while inpatient, working on arranging outpt chemo and possible start next week (3) Urinary tract infection: Plan: With ongoing dysuria, h/o recurrent UTIs W/ nephrolithiasis but no ureterolithiasis Ur cx with ESBL Klebsiella--changed ceftriaxone to Invanz on 08/11--> last day of tx will be 08/17 but could convert to po Cipro if discharged before then With ongoing dysuria--> pyridium scheduled not helping--> discontinued Made oxybutynin bid scheduled (4) Abdominal pain: Plan: worsened since starting mounjaro but UTI and liver mets could be contributing, ileus on CT 08/13 as above Also with h/o constipation-now resolved Improved now with PPI BID, pepcid BID, and treating UTI continue oxycodone prn consider Miralax for constipation (5) Chronic GERD: Plan: PPI increased to BID and pepcid added BID per GI plan for outpt EGD if having ongoing issues Fecal occult/stool PCR negative (6) Hypothyroidism: Plan: TSH wnl on check Remains on LT4 37.5mcg daily (7) Pain due to interstitial cystitis: Plan: pt unaware of this diagnosis start methenamine on discharge for recurrent UTI as per Urology (8) Diabetes type 2, controlled: Plan: a1c 5.5 -- was on Trulicity but was not able to obtain and then placed on mounjaro Would NOT resume her mounjaro or Trulicity on discharge given about to resume chemotherapy and this will cause issues with N/V most likely alone HgbA1C low regardless Lantus and Novolog here recommend once daily dose of Lantus at home on discharge (9) Atrial fibrillation: Plan: Eliquis BID resumed this AM after held for port surgery in normal rhythm on exam (10) Constipation: Plan: resolved, then with some mild diarrhea Stool PCR and C. diff negative (11) Recurrent UTI (urinary tract infection): Plan: following by [facility] alberts (12) Anemia: Plan: chronic, likely of chronic disease and from chemotherapy, hgb stable at 9-10 for 6-8 months,macrocytic iron studies w/o significant deficiency. b12/folate replete periph smear negative TSH wnl fecal occult NEGATIVE Plan DVT proph: eliquis BID Dispo- Continued inpatient stay, can dc to home once pain improving, tolerating po. PT/OT ordered. Patient is refusing to go home until all of her issues have resolved. Admission and Anticipated Discharge Date Admission Date: August 09, 2023 Subjective Patient continues to have multiple complaints including pain in her abdomen, itching, nausea, burning urination. Review of Systems Review of Systems: All systems reviewed & are unremarkable except as noted in Subjective Physical Exam Physical Exam: General: Awake, conversant Heart: S1, S2/regular rate and rhythm, no murmur rubs or gallops Lungs: Clear to auscultation bilaterally. Normal effort Abdomen: Soft/nondistended. Mild tenderness diffusely without rebound, rigidity or guarding. No hepatosplenomegaly Extremities: No clubbing/cyanosis. No edema Behavior: Appropriate, cooperative Results & Data Results & Data Vital Signs (Past 12 Hours) Vital Signs Temp Pulse Resp BP Pulse Ox O2 Del Method 08/15/23 09:20 63 128/75 08/15/23 07:35 36.7 C 65 17 150/74 H 93 Room Air Laboratory Results Abnormal lab results 08/14/23 08/14/23 08/15/23 Range/Units 16:49 20:32 07:57 POC Glucose 104 H 189 H 129 H (70-99) mg/dl 08/15/23 Range/Units 11:38 POC Glucose 143 H (70-99) mg/dl Diagnostic Findings Abdomen/Pelvis CT 08/14/23 17:40 CT SCAN OF THE ABDOMEN AND PELVIS WITHOUT IV CONTRAST CLINICAL HISTORY: Generalized abdominal pain. COMPARISON STUDY: Abdominal CT dated 08/07/2023. TECHNIQUE: CT scan of the abdomen and pelvis is performed from the lung bases to the proximal femora. Images are reviewed in the axial, sagittal, and coronal planes. IV contrast was not administered for this examination. A dose lowering technique was utilized adhering to the principles of ALARA. The examination is degraded by metallic streak artifact from extensive spinal hardware and bilateral hip arthroplasties. CT DOSE: 927.65 mGy.cm FINDINGS: Lung bases: The heart is enlarged and without pericardial effusion. Pacemaker leads are in place. There are coronary artery calcifications. There is diminished attenuation of the cardiac blood pool is compared to myocardium suggesting anemia. There are scattered calcified granulomas. No airspace consolidation or pleural effusion is identified. Liver: The unenhanced liver is normal in size, contour, and attenuation. There is no intrahepatic biliary ductal dilatation. There is evidence of multifocal hepatic metastatic disease. This has no significant change from 08/07/2023. At least 5 right lobe lesions are identified and measure up to 4.1 cm. Gallbladder: Surgically absent noting clips in the gallbladder fossa. There is a calcified gallstone within a cystic duct remnant seen on image #85. Spleen: Normal in size and attenuation. Pancreas: The unenhanced pancreas is moderately atrophic and grossly unremarkable. Adrenal glands: Unremarkable. Kidneys: The unenhanced kidneys are normal in size and without hydronephrosis. Numerous bilateral nonobstructing renal calculi measure up to 9 mm. No ureteral stone is seen. There is no evidence of contour deforming renal mass lesion. Abdominal vasculature: The abdominal aorta is normal in course and caliber noting mild atherosclerotic calcification. Stomach and bowel: A tiny hiatal hernia is noted. Postoperative change is seen in the stomach. A small bowel anastomosis is present in the pelvis. There is moderate colonic fecal retention. There are mildly distended and fluid-filled small bowel loops without which measure up to 3.3 cm diameter. No discrete transition point is identified and there is no evidence of high-grade obstruction. There is no pneumatosis intestinalis or portal venous gas. No thick walled bowel loops are seen. The appendix is not visualized. Peritoneum: There is no intraperitoneal free air or abdominal ascites. There is evidence of previous ventral hernia repair. Lymphadenopathy: None. Pelvic viscera: Evaluation of the pelvis is degraded by streak artifact from bilateral hip arthroplasties. The bladder is normal as visualized. The uterus is surgically absent. No adnexal lesion is seen. Skeletal structures: The skeletal structures are osteopenic. Spondylotic and extensive postsurgical changes noted in the lumbar spine. There are chronic/healed right-sided rib fractures. There is chronic deformity of the sacrum. No lytic or blastic lesions are seen. Bilateral hip arthroplasties are in place IMPRESSION: 1. There are distended and fluid-filled loops of small bowel as above, with no discrete transition point identified and no evidence of high-grade obstruction. This could represent a nonspecific enteritis, ileus, or possibly a low grade/partial obstruction. Clinical correlation will be essential. 2. Multifocal hepatic metastatic disease has no significantly changed as compared to 08/07/2023. 3. Cardiomegaly and cardiac pacemaker. 4. There is a large gallstone contained within a dilated cystic duct remnant. 5. Bilateral nephrolithiasis. 6. Additional findings as above. ACT 112: Negative or not required by law. Electronically signed by: Noe Carrillo M.D. 08/14/2023 7:13 PM PG Care Time/CCT Total # of Minutes Spent Total Time Spent with Patient: Total time spent is greater than 50% in coordination of care (as documented) at patient's floor/unit and/or counseling patient: Coding Level of Care Code 26471 SUB INP/OBS CARE 2/35MIN Diagnoses Nausea & vomiting R11.2 Vomiting type: unspecified Metastatic breast cancer C50.919 Urinary tract infection N30.01 Hematuria presence: with hematuria Urinary tract infection type: acute cystitis Abdominal pain R10.30 Abdominal location: lower abdomen, unspecified Chronic GERD K21.9 Hypothyroidism, unspecified type E03.9 Hypothyroidism type: unspecified Pain due to interstitial cystitis N30.10 Controlled type 2 diabetes mellitus without complication, with long-term current use of insulin E11.9; Z79.4 Diabetes mellitus penitentiary insulin use: with lobsterman use Diabetes mellitus complication status: without complication Atrial fibrillation, unspecified type I48.91 Atrial fibrillation type: unspecified Constipation K59.00 Recurrent UTI (urinary tract infection) N39.0 Anemia D64.9 Anemia type: unspecified type (1) Nausea & vomiting Vomiting type: unspecified Qualified Code(s): R11.2 - Nausea with vomiting, unspecified (3) Urinary tract infection Hematuria presence: with hematuria Urinary tract infection type: acute cystitis Qualified Code(s): N30.01 - Acute cystitis with hematuria (4) Abdominal pain Abdominal location: lower abdomen, unspecified Qualified Code(s): R10.30 - Lower abdominal pain, unspecified (6) Hypothyroidism Hypothyroidism type: unspecified Qualified Code(s): E03.9 - Hypothyroidism, unspecified (8) Diabetes type 2, controlled Diabetes mellitus lobsterman insulin use: with penitentiary use Diabetes mellitus complication status: without complication Qualified Code(s): E11.9 - Type 2 diabetes mellitus without complications; Z79.4 - buttermaker continuous churn (current) use of insulin (9) Atrial fibrillation Atrial fibrillation type: unspecified Qualified Code(s): I48.91 - Unspecified atrial fibrillation (12) Anemia Anemia type: unspecified type Qualified Code(s): D64.9 - Anemia, unspecified
[2023-08-16] MEDS: INSULIN ASPART PER UNIT CHARGE SC ONE (03:28)
[2023-08-16] MEDS: LANTUS PER UNIT CHARGE SC SCH (08:25)
[2023-08-16] MEDS ORDERED: LANTUS PER UNIT CHARGE SC SCH (09:00)
--- NOTE | 2023-08-16 14:17 | Hospitalist Progress Note ---
Date of Service August 16, 2023 Assessment & Plan (1) Nausea & vomiting: Plan: 73yo female with metastatic breast CA w/ liver mets here w intractable N/V after recently starting on Mounjaro GI consulted for consideration for EGD-none needed, advised increasing PPI to bid and adding pepcid Likely gallstone seen in cystic duct remnant on CT, US-no need for ERCP, LFTs normal MRCP negative Finally her N/V is improved and she is focusing on eating smaller portions of food given the effect of Mounjaro. Has h/o gastric bypass and lost 200 lbs since that time Zofran, Phenergan prn Repeat CT a/p on 08/13 due to ongoing abd pains--> shows ileus vs low grade/partial SBO, moderate fecal retention, and bilat nephrolithiasis but no ureterolithiasis. Ileus could also be from Mounjaro. She is passing loose still multiple times a day so perhaps overflow stool? Consider Miralax to clean out colon continue oxycodone prn pain as some pain also from liver mets (2) Metastatic breast cancer: Plan: Stage IV metastatic breast carcinoma with mets to the liver. Follows with oncology, Dr De Luna CTAP findings w/ progression of hepatic disease on Xeloda oral chemo stopped given progressive disease and planning for liposomal doxorubicin. CT chest obtained to eval for metastatic disease which was NEGATIVE. ECHO prior to starting chemo shows moderate , otherwise normal Surgery placed port on 08/12-increase oxycodone dose to 5-10mg po q4h prn Dr De Luna consulted/seen while inpatient, working on arranging outpt chemo and possible start next week (3) Urinary tract infection: Plan: With ongoing dysuria, h/o recurrent UTIs W/ nephrolithiasis but no ureterolithiasis Ur cx with ESBL Klebsiella--changed ceftriaxone to Invanz on 08/11--> last day of tx will be 08/17 but could convert to po Cipro if discharged before then With ongoing dysuria--> pyridium scheduled not helping--> was initially discontinued Made oxybutynin bid scheduled Patient is requesting that the pyridium be resumed as it was indeed helping her. (4) Abdominal pain: Plan: worsened since starting mounjaro but UTI and liver mets could be contributing, ileus on CT 08/13 as above Also with h/o constipation-now resolved Improved now with PPI BID, pepcid BID, and treating UTI continue oxycodone prn consider Miralax for constipation (5) Chronic GERD: Plan: PPI increased to BID and pepcid added BID per GI plan for outpt EGD if having ongoing issues Fecal occult/stool PCR negative (6) Hypothyroidism: Plan: TSH wnl on check Remains on LT4 37.5mcg daily (7) Pain due to interstitial cystitis: Plan: pt unaware of this diagnosis start methenamine on discharge for recurrent UTI as per Urology (8) Diabetes type 2, controlled: Plan: a1c 5.5 -- was on Trulicity but was not able to obtain and then placed on mounjaro Would NOT resume her mounjaro or Trulicity on discharge given about to resume chemotherapy and this will cause issues with N/V most likely alone HgbA1C low regardless Lantus and Novolog here recommend once daily dose of Lantus at home on discharge (9) Atrial fibrillation: Plan: Eliquis BID resumed this AM after held for port surgery in normal rhythm on exam (10) Constipation: Plan: resolved, then with some mild diarrhea Stool PCR and C. diff negative (11) Recurrent UTI (urinary tract infection): Plan: following by [facility] alberts (12) Anemia: Plan: chronic, likely of chronic disease and from chemotherapy, hgb stable at 9-10 for 6-8 months,macrocytic iron studies w/o significant deficiency. b12/folate replete periph smear negative TSH wnl fecal occult NEGATIVE Plan DVT proph: eliquis BID Dispo- Continued inpatient stay, can dc to home once pain improving, tolerating po. PT/OT ordered. Patient is refusing to go home until all of her issues have resolved. Admission and Anticipated Discharge Date Admission Date: August 09, 2023 Subjective Patient is still full of complaints. She says she has burning urination, right upper quadrant pain. She does not want to go home until all of her issues have resolved. She tells me that pyridium had helped her when she was on it a few days ago. However Dr. Rodriguez documented that it did not help and this was discontinued. The patient wants it back on. Review of Systems Review of Systems: All systems reviewed & are unremarkable except as noted in Subjective Physical Exam Physical Exam: General: Awake, conversant Heart: S1, S2/regular rate and rhythm, no murmur rubs or gallops Lungs: Clear to auscultation bilaterally. Normal effort Abdomen: Soft/nondistended. Mild tenderness diffusely without rebound, rigidity or guarding. No hepatosplenomegaly Extremities: No clubbing/cyanosis. No edema Behavior: Appropriate, cooperative Results & Data Results & Data Vital Signs (Past 12 Hours) Vital Signs Temp Pulse Resp BP Pulse Ox O2 Del Method 08/16/23 08:12 36.7 C 75 17 112/66 95 Room Air PG Care Time/CCT Total # of Minutes Spent Total Time Spent with Patient: Total time spent is greater than 50% in coordination of care (as documented) at patient's floor/unit and/or counseling patient: Coding Level of Care Code 10615 SUB INP/OBS CARE 2/35MIN Diagnoses Nausea & vomiting R11.2 Vomiting type: unspecified Metastatic breast cancer C50.919 Urinary tract infection N30.01 Hematuria presence: with hematuria Urinary tract infection type: acute cystitis Abdominal pain R10.30 Abdominal location: lower abdomen, unspecified Chronic GERD K21.9 Hypothyroidism, unspecified type E03.9 Hypothyroidism type: unspecified Pain due to interstitial cystitis N30.10 Controlled type 2 diabetes mellitus without complication, with long-term current use of insulin E11.9; Z79.4 Diabetes mellitus nursing home insulin use: with terminal supervisor use Diabetes mellitus complication status: without complication Atrial fibrillation, unspecified type I48.91 Atrial fibrillation type: unspecified Constipation K59.00 Recurrent UTI (urinary tract infection) N39.0 Anemia D64.9 Anemia type: unspecified type (1) Nausea & vomiting Vomiting type: unspecified Qualified Code(s): R11.2 - Nausea with vomiting, unspecified (3) Urinary tract infection Hematuria presence: with hematuria Urinary tract infection type: acute cystitis Qualified Code(s): N30.01 - Acute cystitis with hematuria (4) Abdominal pain Abdominal location: lower abdomen, unspecified Qualified Code(s): R10.30 - Lower abdominal pain, unspecified (6) Hypothyroidism Hypothyroidism type: unspecified Qualified Code(s): E03.9 - Hypothyroidism, unspecified (8) Diabetes type 2, controlled Diabetes mellitus nursing home insulin use: with nursing home use Diabetes mellitus complication status: without complication Qualified Code(s): E11.9 - Type 2 diabetes mellitus without complications; Z79.4 - termite treater (current) use of insulin (9) Atrial fibrillation Atrial fibrillation type: unspecified Qualified Code(s): I48.91 - Unspecified atrial fibrillation (12) Anemia Anemia type: unspecified type Qualified Code(s): D64.9 - Anemia, unspecified
[2023-08-17 08:01] LABS: Creatinine Clr Calc Pharmacy 76.2 ml/min; Est GFR (African American) 106.3 ml/min; Est GFR (Non-African American) 91.8 ml/min
[2023-08-17] MEDS: PHENAZOPYRIDINE HCL 100 MG TAB PO PRN (09:02)
[2023-08-17] MEDS: LANTUS PER UNIT CHARGE SC SCH (09:03)
[2023-08-17] MEDS: FLUCONAZOLE 50 MG TAB PO ONE (12:32)
--- NOTE | 2023-08-17 14:29 | Hospitalist Progress Note ---
Date of Service August 17, 2023 Assessment & Plan (1) Nausea & vomiting: Plan: 73yo female with metastatic breast CA w/ liver mets here w intractable N/V after recently starting on Mounjaro GI consulted for consideration for EGD-none needed, advised increasing PPI to bid and adding pepcid Likely gallstone seen in cystic duct remnant on CT, US-no need for ERCP, LFTs normal MRCP negative Finally her N/V is improved and she is focusing on eating smaller portions of food given the effect of Mounjaro. Has h/o gastric bypass and lost 200 lbs since that time Zofran, Phenergan prn Repeat CT a/p on 08/13 due to ongoing abd pains--> shows ileus vs low grade/partial SBO, moderate fecal retention, and bilat nephrolithiasis but no ureterolithiasis. Ileus could also be from Mounjaro. She is passing loose still multiple times a day so perhaps overflow stool? Consider Miralax to clean out colon continue oxycodone prn pain as some pain also from liver mets (2) Metastatic breast cancer: Plan: Stage IV metastatic breast carcinoma with mets to the liver. Follows with oncology, Dr De Luna CTAP findings w/ progression of hepatic disease on Xeloda oral chemo stopped given progressive disease and planning for liposomal doxorubicin. CT chest obtained to eval for metastatic disease which was NEGATIVE. ECHO prior to starting chemo shows moderate , otherwise normal Surgery placed port on 08/12-increase oxycodone dose to 5-10mg po q4h prn Dr De Luna consulted/seen while inpatient, working on arranging outpt chemo and possible start next week (3) Urinary tract infection: Plan: With ongoing dysuria, h/o recurrent UTIs W/ nephrolithiasis but no ureterolithiasis Ur cx with ESBL Klebsiella--changed ceftriaxone to Invanz on 08/11--> last day of tx will be 08/17 but could convert to po Cipro if discharged before then With ongoing dysuria--> pyridium scheduled not helping--> was initially discontinued Made oxybutynin bid scheduled Patient is requesting that the pyridium be resumed as it was indeed helping her. Per nurse, patient had white vaginal discharge. Along with burning irritation in the vagina, suspect Cari infection of vagina. Ordered a dose of p.o. fluconazole (4) Abdominal pain: Plan: worsened since starting mounjaro but UTI and liver mets could be contributing, ileus on CT 08/13 as above Also with h/o constipation-now resolved Improved now with PPI BID, pepcid BID, and treating UTI continue oxycodone prn consider Miralax for constipation (5) Chronic GERD: Plan: PPI increased to BID and pepcid added BID per GI plan for outpt EGD if having ongoing issues Fecal occult/stool PCR negative (6) Hypothyroidism: Plan: TSH wnl on check Remains on LT4 37.5mcg daily (7) Pain due to interstitial cystitis: Plan: pt unaware of this diagnosis start methenamine on discharge for recurrent UTI as per Urology (8) Diabetes type 2, controlled: Plan: a1c 5.5 -- was on Trulicity but was not able to obtain and then placed on mounjaro Would NOT resume her mounjaro or Trulicity on discharge given about to resume chemotherapy and this will cause issues with N/V most likely alone HgbA1C low regardless Lantus and Novolog here recommend once daily dose of Lantus at home on discharge (9) Atrial fibrillation: Plan: Eliquis BID resumed this AM after held for port surgery in normal rhythm on exam (10) Constipation: Plan: resolved, then with some mild diarrhea Stool PCR and C. diff negative (11) Recurrent UTI (urinary tract infection): Plan: following by [facility] alber[facility] (12) Anemia: Plan: chronic, likely of chronic disease and from chemotherapy, hgb stable at 9-10 for 6-8 months,macrocytic iron studies w/o significant deficiency. b12/folate replete periph smear negative TSH wnl fecal occult NEGATIVE Plan DVT proph: eliquis BID Dispo- Continued inpatient stay, can dc to home once pain improving, tolerating po. PT/OT ordered. Patient is refusing to go home until all of her issues have resolved. Admission and Anticipated Discharge Date Admission Date: August 09, 2023 Subjective Patient continues to complain of burning urination and right upper quadrant pain. She refuses to go home. Per nurse, patient had white discharge from her vagina. Review of Systems Review of Systems: All systems reviewed & are unremarkable except as noted in Subjective Physical Exam Physical Exam: General: Awake, conversant Heart: S1, S2/regular rate and rhythm, no murmur rubs or gallops Lungs: Clear to auscultation bilaterally. Normal effort Abdomen: Soft/nondistended. Mild tenderness diffusely without rebound, rigidity or guarding. No hepatosplenomegaly Extremities: No clubbing/cyanosis. No edema Behavior: Appropriate, cooperative Results & Data Results & Data Vital Signs (Past 12 Hours) Vital Signs Temp Pulse Resp BP Pulse Ox O2 Del Method 08/17/23 08:56 61 112/67 08/17/23 07:24 36.7 C 66 16 119/67 94 Room Air PG Care Time/CCT Total # of Minutes Spent Total Time Spent with Patient: Total time spent is greater than 50% in coordination of care (as documented) at patient's floor/unit and/or counseling patient: Coding Level of Care Code 69612 SUB INP/OBS CARE 2/35MIN Diagnoses Nausea & vomiting R11.2 Vomiting type: unspecified Metastatic breast cancer C50.919 Urinary tract infection N30.01 Hematuria presence: with hematuria Urinary tract infection type: acute cystitis Abdominal pain R10.30 Abdominal location: lower abdomen, unspecified Chronic GERD K21.9 Hypothyroidism, unspecified type E03.9 Hypothyroidism type: unspecified Pain due to interstitial cystitis N30.10 Controlled type 2 diabetes mellitus without complication, with long-term current use of insulin E11.9; Z79.4 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 [facility] use Diabetes mellitus complication status: without complication Atrial fibrillation, unspecified type I48.91 Atrial fibrillation type: unspecified Constipation K59.00 Recurrent UTI (urinary tract infection) N39.0 Anemia D64.9 Anemia type: unspecified type (1) Nausea & vomiting Vomiting type: unspecified Qualified Code(s): R11.2 - Nausea with vomiting, unspecified (3) Urinary tract infection Hematuria presence: with hematuria Urinary tract infection type: acute cystitis Qualified Code(s): N30.01 - Acute cystitis with hematuria (4) Abdominal pain Abdominal location: lower abdomen, unspecified Qualified Code(s): R10.30 - Lower abdominal pain, unspecified (6) Hypothyroidism Hypothyroidism type: unspecified Qualified Code(s): E03.9 - Hypothyroidism, unspecified (8) Diabetes type 2, controlled Diabetes mellitus [facility] insulin use: with [employer] operations [employer] use Diabetes mellitus complication status: without complication Qualified Code(s): E11.9 - Type 2 diabetes mellitus without complications; Z79.4 - [facility] (current) use of insulin (9) Atrial fibrillation Atrial fibrillation type: unspecified Qualified Code(s): I48.91 - Unspecified atrial fibrillation (12) Anemia Anemia type: unspecified type Qualified Code(s): D64.9 - Anemia, unspecified
--- NOTE | 2023-08-18 12:05 | Pharmacy Report ---
Pharmacy Glycemic Sign Off Nt - Date of Service August 18, 2023 - Assessment & Plan ASSESSMENT: * BSG's stable and no changes to her glycemic regimen in the last few days other than increasing Lantus from 10 to 11 units yesterday. * Stressors stable. * Discussed w Dr. Mueller - pharmacy will be signing off glycemic management. PLAN FOR INPATIENT GLYCEMIC CONTROL: No changes needed to current regimen. * Continue basal insulin with Lantus 11 units SQ daily * Continue NovoLog per scale ACHS/Q6hrs while NPO * Goal range = 120 160 mg/dl * CF = 50 mg/dl/unit * CR = 1 unit for ever 10 g CHO consumed * Pharmacy is signing off of glycemic consult and will no longer be making adjustments to inpatient regimen. Please feel free to re-consult if needed. Thank you.
--- NOTE | 2023-08-18 14:51 | Hospitalist Progress Note ---
Date of Service August 18, 2023 Assessment & Plan (1) Nausea & vomiting: Plan: 73yo female with metastatic breast CA w/ liver mets here w intractable N/V after recently starting on Mounjaro GI consulted for consideration for EGD-none needed, advised increasing PPI to bid and adding pepcid Likely gallstone seen in cystic duct remnant on CT, US-no need for ERCP, LFTs normal MRCP negative Finally her N/V is improved and she is focusing on eating smaller portions of food given the effect of Mounjaro. Has h/o gastric bypass and lost 200 lbs since that time Zofran, Phenergan prn Repeat CT a/p on 08/13 due to ongoing abd pains--> shows ileus vs low grade/partial SBO, moderate fecal retention, and bilat nephrolithiasis but no ureterolithiasis. Ileus could also be from Mounjaro. She is passing loose still multiple times a day so perhaps overflow stool? continue oxycodone prn pain as some pain also from liver mets (2) Metastatic breast cancer: Plan: Stage IV metastatic breast carcinoma with mets to the liver. Follows with oncology, Dr De Luna CTAP findings w/ progression of hepatic disease on Xeloda oral chemo stopped given progressive disease and planning for liposomal doxorubicin. CT chest obtained to eval for metastatic disease which was NEGATIVE. ECHO prior to starting chemo shows moderate , otherwise normal Surgery placed port on 08/12-increase oxycodone dose to 5-10mg po q4h prn Dr De Luna consulted/seen while inpatient, working on arranging outpt chemo and possible start next week (3) Urinary tract infection: Plan: With ongoing dysuria, h/o recurrent UTIs W/ nephrolithiasis but no ureterolithiasis Ur cx with ESBL Klebsiella--changed ceftriaxone to Invanz on 08/11--> last day of tx will be today 08/17 With ongoing dysuria--> pyridium scheduled not helping--> was initially discontinued Made oxybutynin bid scheduled Patient is requesting that the pyridium be resumed as it was indeed helping her. Patient was given p.o. fluconazole on 08/16 due to white vaginal discharge. (4) Abdominal pain: Plan: worsened since starting mounjaro but UTI and liver mets could be contributing, ileus on CT 08/13 as above Also with h/o constipation-now resolved Improved now with PPI BID, pepcid BID, and treating UTI continue oxycodone prn consider Miralax for constipation (5) Chronic GERD: Plan: PPI increased to BID and pepcid added BID per GI plan for outpt EGD if having ongoing issues Fecal occult/stool PCR negative (6) Hypothyroidism: Plan: TSH wnl on check Remains on LT4 37.5mcg daily (7) Pain due to interstitial cystitis: Plan: pt unaware of this diagnosis start methenamine on discharge for recurrent UTI as per Urology (8) Diabetes type 2, controlled: Plan: a1c 5.5 -- was on Trulicity but was not able to obtain and then placed on mounjaro Would NOT resume her mounjaro or Trulicity on discharge given about to resume chemotherapy and this will cause issues with N/V most likely alone HgbA1C low regardless Lantus and Novolog here recommend once daily dose of Lantus at home on discharge (9) Atrial fibrillation: Plan: Eliquis BID resumed this AM after held for port surgery in normal rhythm on exam (10) Constipation: Plan: resolved, then with some mild diarrhea Stool PCR and C. diff negative (11) Recurrent UTI (urinary tract infection): Plan: following by [facility] alber[facility] (12) Anemia: Plan: chronic, likely of chronic disease and from chemotherapy, hgb stable at 9-10 for 6-8 months,macrocytic iron studies w/o significant deficiency. b12/folate replete periph smear negative TSH wnl fecal occult NEGATIVE Plan DVT proph: eliquis BID Dispo- Continued inpatient stay, can dc to home once pain improving, tolerating po. PT/OT ordered. Patient is refusing to go home until all of her issues have resolved. Admission and Anticipated Discharge Date Admission Date: August 09, 2023 Subjective Patient still complains of burning urination. Got a dose of fluconazole that did not help. Taking Pyridium which is not helping much either. She refuses to go home until all of her issues have resolved. She says that she has had this problem with "burning urination for a year now and no one has been able to figure it out". Review of Systems Review of Systems: All systems reviewed & are unremarkable except as noted in Subjective Physical Exam Physical Exam: General: Awake, conversant Heart: S1, S2/regular rate and rhythm, no murmur rubs or gallops Lungs: Clear to auscultation bilaterally. Normal effort Abdomen: Soft/nondistended. Mild tenderness diffusely without rebound, rigidity or guarding. No hepatosplenomegaly Extremities: No clubbing/cyanosis. No edema Behavior: Appropriate, cooperative Results & Data Results & Data Vital Signs (Past 12 Hours) Vital Signs Temp Pulse Resp BP Pulse Ox O2 Del Method 08/18/23 07:08 36.7 C 64 16 128/64 92 Room Air Laboratory Results Abnormal lab results 08/17/23 08/17/23 08/18/23 Range/Units 16:26 20:13 07:34 POC Glucose 139 H 113 H 114 H (70-99) mg/dl PG Care Time/CCT Total # of Minutes Spent Total Time Spent with Patient: Total time spent is greater than 50% in coordination of care (as documented) at patient's floor/unit and/or counseling patient: Coding Level of Care Code 44705 SUB INP/OBS CARE 2/35MIN Diagnoses Nausea & vomiting R11.2 Vomiting type: unspecified Metastatic breast cancer C50.919 Urinary tract infection N30.01 Hematuria presence: with hematuria Urinary tract infection type: acute cystitis Abdominal pain R10.30 Abdominal location: lower abdomen, unspecified Chronic GERD K21.9 Hypothyroidism, unspecified type E03.9 Hypothyroidism type: unspecified Pain due to interstitial cystitis N30.10 Controlled type 2 diabetes mellitus without complication, with long-term current use of insulin E11.9; Z79.4 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 [facility] use Diabetes mellitus complication status: without complication Atrial fibrillation, unspecified type I48.91 Atrial fibrillation type: unspecified Constipation K59.00 Recurrent UTI (urinary tract infection) N39.0 Anemia D64.9 Anemia type: unspecified type (1) Nausea & vomiting Vomiting type: unspecified Qualified Code(s): R11.2 - Nausea with vomiting, unspecified (3) Urinary tract infection Hematuria presence: with hematuria Urinary tract infection type: acute cystitis Qualified Code(s): N30.01 - Acute cystitis with hematuria (4) Abdominal pain Abdominal location: lower abdomen, unspecified Qualified Code(s): R10.30 - Lower abdominal pain, unspecified (6) Hypothyroidism Hypothyroidism type: unspecified Qualified Code(s): E03.9 - Hypothyroidism, unspecified (8) Diabetes type 2, controlled Diabetes mellitus [facility] 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
--- NOTE | 2023-08-19 16:19 | Hospitalist Progress Note ---
Date of Service August 19, 2023 Assessment & Plan (1) Nausea & vomiting: Plan: 73yo female with metastatic breast CA w/ liver mets here w intractable N/V after recently starting on Mounjaro GI consulted for consideration for EGD-none needed, advised increasing PPI to bid and adding pepcid Likely gallstone seen in cystic duct remnant on CT, US-no need for ERCP, LFTs normal MRCP negative Finally her N/V is improved and she is focusing on eating smaller portions of food given the effect of Mounjaro. Has h/o gastric bypass and lost 200 lbs since that time Zofran, Phenergan prn Repeat CT a/p on 08/13 due to ongoing abd pains--> shows ileus vs low grade/partial SBO, moderate fecal retention, and bilat nephrolithiasis but no ureterolithiasis. Ileus could also be from Mounjaro. She is passing loose still multiple times a day so perhaps overflow stool? continue oxycodone prn pain as some pain also from liver mets (2) Metastatic breast cancer: Plan: Stage IV metastatic breast carcinoma with mets to the liver. Follows with oncology, Dr De Luna CTAP findings w/ progression of hepatic disease on Xeloda oral chemo stopped given progressive disease and planning for liposomal doxorubicin. CT chest obtained to eval for metastatic disease which was NEGATIVE. ECHO prior to starting chemo shows moderate , otherwise normal Surgery placed port on 08/12-increase oxycodone dose to 5-10mg po q4h prn Dr De Luna consulted/seen while inpatient, working on arranging outpt chemo and possible start next week (3) Urinary tract infection: Plan: With ongoing dysuria, h/o recurrent UTIs W/ nephrolithiasis but no ureterolithiasis Ur cx with ESBL Klebsiella--changed ceftriaxone to Invanz on 08/11--> last day of tx will be today 08/17. Ertapenem discontinued. With ongoing dysuria--> pyridium scheduled not helping--> was initially discontinued Made oxybutynin bid scheduled Patient is requesting that the pyridium be resumed as it was indeed helping her. Patient was not using the Pyridium as she did not know that she had to ask for it. Encouraged her to use the Pyridium for dysuria. Patient was given p.o. fluconazole on 08/16 due to white vaginal discharge. (4) Abdominal pain: Plan: worsened since starting mounjaro but UTI and liver mets could be contributing, ileus on CT 08/13 as above Also with h/o constipation-now resolved Improved now with PPI BID, pepcid BID, and treating UTI continue oxycodone prn consider Miralax for constipation (5) Chronic GERD: Plan: PPI increased to BID and pepcid added BID per GI plan for outpt EGD if having ongoing issues Fecal occult/stool PCR negative (6) Hypothyroidism: Plan: TSH wnl on check Remains on LT4 37.5mcg daily (7) Pain due to interstitial cystitis: Plan: pt unaware of this diagnosis start methenamine on discharge for recurrent UTI as per Urology (8) Diabetes type 2, controlled: Plan: a1c 5.5 -- was on Trulicity but was not able to obtain and then placed on mounjaro Would NOT resume her mounjaro or Trulicity on discharge given about to resume chemotherapy and this will cause issues with N/V most likely alone HgbA1C low regardless Lantus and Novolog here recommend once daily dose of Lantus at home on discharge (9) Atrial fibrillation: Plan: Eliquis BID resumed this AM after held for port surgery in normal rhythm on exam (10) Constipation: Plan: resolved, then with some mild diarrhea Stool PCR and C. diff negative (11) Recurrent UTI (urinary tract infection): Plan: following by [facility] alber[facility] (12) Anemia: Plan: chronic, likely of chronic disease and from chemotherapy, hgb stable at 9-10 for 6-8 months,macrocytic iron studies w/o significant deficiency. b12/folate replete periph smear negative TSH wnl fecal occult NEGATIVE Plan DVT proph: eliquis BID Dispo-discharge to home tomorrow is the plan. Patient has been informed. She can appeal the discharge if she does not agree Admission and Anticipated Discharge Date Admission Date: August 09, 2023 Subjective Patient continues to complain of dysuria and right upper quadrant pain. She has not been using the Pyridium as she did not know that she had to ask for it. She was informed that she will be discharged tomorrow Review of Systems Review of Systems: All systems reviewed & are unremarkable except as noted in Subjective Physical Exam Physical Exam: General: Awake, conversant Heart: S1, S2/regular rate and rhythm, no murmur rubs or gallops Lungs: Clear to auscultation bilaterally. Normal effort Abdomen: Soft/nondistended. Mild tenderness diffusely without rebound, rigidity or guarding. No hepatosplenomegaly Extremities: No clubbing/cyanosis. No edema Behavior: Appropriate, cooperative Results & Data Results & Data Vital Signs (Past 12 Hours) Vital Signs Temp Pulse Resp BP Pulse Ox O2 Del Method 08/19/23 14:46 36.6 C 62 16 107/65 97 Room Air 08/19/23 07:09 36.5 C 60 16 137/58 L 97 Room Air Laboratory Results Abnormal lab results 08/18/23 08/19/23 08/19/23 Range/Units 16:31 07:11 11:32 POC Glucose 257 H 114 H 153 H (70-99) mg/dl PG Care Time/CCT Total # of Minutes Spent Total Time Spent with Patient: Total time spent is greater than 50% in coordination of care (as documented) at patient's floor/unit and/or counseling patient: Coding Level of Care Code 53013 SUB INP/OBS CARE 2/35MIN Diagnoses Nausea & vomiting R11.2 Vomiting type: unspecified Metastatic breast cancer C50.919 Urinary tract infection N30.01 Hematuria presence: with hematuria Urinary tract infection type: acute cystitis Abdominal pain R10.30 Abdominal location: lower abdomen, unspecified Chronic GERD K21.9 Hypothyroidism, unspecified type E03.9 Hypothyroidism type: unspecified Pain due to interstitial cystitis N30.10 Controlled type 2 diabetes mellitus without complication, with long-term current use of insulin E11.9; Z79.4 Diabetes mellitus complication status: without complication Diabetes mellitus alf insulin use: with alf use Atrial fibrillation, unspecified type I48.91 Atrial fibrillation type: unspecified Constipation K59.00 Recurrent UTI (urinary tract infection) N39.0 Anemia D64.9 Anemia type: unspecified type (1) Nausea & vomiting Vomiting type: unspecified Qualified Code(s): R11.2 - Nausea with vomiting, unspecified (3) Urinary tract infection Hematuria presence: with hematuria Urinary tract infection type: acute cystitis Qualified Code(s): N30.01 - Acute cystitis with hematuria (4) Abdominal pain Abdominal location: lower abdomen, unspecified Qualified Code(s): R10.30 - Lower abdominal pain, unspecified (6) Hypothyroidism Hypothyroidism type: unspecified Qualified Code(s): E03.9 - Hypothyroidism, unspecified (8) Diabetes type 2, controlled Diabetes mellitus complication status: without complication Diabetes mellitus alf insulin use: with alf use Qualified Code(s): E11.9 - Type 2 diabetes mellitus without complications; Z79.4 - [facility] (current) use of insulin (9) Atrial fibrillation Atrial fibrillation type: unspecified Qualified Code(s): I48.91 - Unspecified atrial fibrillation (12) Anemia Anemia type: unspecified type Qualified Code(s): D64.9 - Anemia, unspecified
[2023-08-20 07:26] LABS: Creatinine Clr Calc Pharmacy 72.3 ml/min; Est GFR (African American) 104.5 ml/min; Est GFR (Non-African American) 90.2 ml/min
--- NOTE | 2023-08-20 10:06 | Discharge Summary ---
Date of Service August 20, 2023 Admission HPI Per Admitting Provider This is a 73-year-old female who has a 3 to 4-week history of nausea vomiting abdominal cramping has been worse over the last couple weeks. She has had recurrent UTIs. She is has seen infectious disease she has had multiple doses of oral antibiotics including ciprofloxacin, fosfomycin, Bactrim, Macrobid, excetra. She presents to the ER today wanting to know what her abdominal discomfort is from and her cramping and her nausea vomiting. She had a CT of the abdomen pelvis which showed nonobstructive bilateral kidney stones that shows liver metastatic disease which she is aware of and under active treatment with oncology. Primary malignancy is breast cancer. Her other laboratory studies were unremarkable. However when we were called to admit the patient her urinalysis was and still was pending at the time of this dictation. She received morphine in the ER 2 mg and IV Zofran. And a liter of fluid. We are called to admit the patient for refractory nausea and vomiting and abdominal cramping. We are admitting her observation. We have consulted gastroenterology to consider possible EGD. On further history taking on admission this patient started Mounjaro several weeks ago. Her symptoms have become less worse since then and I do feel this is probably the culprit. Admission Exam Per Admitting Provider In General: In general this is a 73-year-old female she is quite frustrated. She is quite verbal about her frustration to the point of being even somewhat irritable -she is very frustrated about not being able to eat due to her nausea and vomiting. We did discuss with her that she is only been under our care for 20 minutes to half hour and that we will do our best to try to treat her medically from an appropriate standpoint and get to the root of her problem. We did tell her that we will have gastroenterology see her to consider an EGD. I did return to the room after her med reconciliation was done and inquired about Mounjaro as documented in HPI. I do feel that this very well could be the culprit. I recommend she not take that any longer and speak with her primary care provider for an alternative treatment for her diabetes mellitus. HEENT: Normocephalic atraumatic pupils are equal round and reactive to light bilaterally. No scleral icterus no conjunctival injection external auditory canals are patent septum is in the midline nose is without discharge oral mucosa is pink and moist without lesion. NECK: Supple no rigidity no lymphadenopathy no thyromegaly no carotid bruits no JVD no masses. HEART: Regular rate and rhythm I do not appreciate any ectopy or rub. No murmur. LUNGS: Clear to auscultation bilaterally and anteriorly with no evidence of adventitious sounds/wheezes rales or rhonchi. ABDOMEN: Soft mild tenderness diffusely, no rebound, no peritoneal signs, positive bowel sounds, no appreciable organomegaly. EXTREMITIES: Intact, no peripheral cyanosis, clubbing or edema. Strength is 5 out of 5 in extremities x4, no pathological reflexes. NEUROLOGICAL: Cranial nerves II through XII are grossly intact with no focal deficit elicited upon examination. No tremor. Principal Diagnosis Mounjaro induced GI side effects ESBL Klebsiella UTI Metastatic breast cancer with liver mets Discharge Exam General: Awake, conversant Heart: S1, S2/regular rate and rhythm, no murmur rubs or gallops Lungs: Clear to auscultation bilaterally. Normal effort Abdomen: Soft/nondistended. Mild tenderness diffusely without rebound, rigidity or guarding. No hepatosplenomegaly Extremities: No clubbing/cyanosis. No edema Behavior: Appropriate, cooperative Discharge Data Allergies Allergy/AdvReac Type Severity Reaction Status Date / Time metformin AdvReac Intermediate RESTLESSNES Verified 08/07/23 15:38 S Consultations 08/08/23 07:45 Consult Gastroenterology Routine 08/09/23 11:02 Consult Oncology Routine 08/11/23 09:22 Consult Urology Routine 08/11/23 13:46 Consult General Surgery Routine 08/14/23 11:07 Consult Behavioral Health Liaison Routine Procedures Performed Operation Date: 08/13/23 07:15 Actual Procedures p Right Internal Jugular Port Insertion(Right) - Brian Kingston MD Ordered Studies 08/07/23 13:17 CT stones [CT abd pelvis wo con] Stat 08/09/23 11:50 CT chest diagnostic w con Routine 08/10/23 17:48 US gallbladder Routine 08/12/23 12:30 MR MRCP Routine 08/13/23 FL fluoro (infusaport) to 1 hr Routine 08/14/23 17:40 CT abd pelvis wo con Urgent Hospital Course (1) Nausea & vomitinyo female with metastatic breast CA w/ liver mets here w intractable N/V after recently starting on Mounjaro GI consulted for consideration for EGD-none needed, advised increasing PPI to bid and adding pepcid Likely gallstone seen in cystic duct remnant on CT, US-no need for ERCP, LFTs normal MRCP negative Finally her N/V is improved and she is focusing on eating smaller portions of food given the effect of Mounjaro. Has h/o gastric bypass and lost 200 lbs since that time Zofran, Phenergan prn Repeat CT a/p on 08/13 due to ongoing abd pains--> shows ileus vs low grade/partial SBO, moderate fecal retention, and bilat nephrolithiasis but no ureterolithiasis. Ileus could also be from Mounjaro. She is passing loose still multiple times a day so perhaps overflow stool? continue oxycodone prn pain as some pain also from liver mets (2) Metastatic breast cancer: Stage IV metastatic breast carcinoma with mets to the liver. Follows with oncology, Dr De Luna CTAP findings w/ progression of hepatic disease on Xeloda oral chemo stopped given progressive disease and planning for liposomal doxorubicin. CT chest obtained to eval for metastatic disease which was NEGATIVE. ECHO prior to starting chemo shows moderate , otherwise normal Surgery placed port on 08/12-increase oxycodone dose to 5-10mg po q4h prn Dr De Luna consulted/seen while inpatient, working on arranging outpt chemo and possible start next week (3) Urinary tract infection: With ongoing dysuria, h/o recurrent UTIs W/ nephrolithiasis but no ureterolithiasis Ur cx with ESBL Klebsiella--changed ceftriaxone to Invanz on 08/11--> last day of tx 08/17. Ertapenem discontinued. With ongoing dysuria--> pyridium scheduled not helping--> was initially discontinued Made oxybutynin bid scheduled Patient is requesting that the pyridium be resumed as it was indeed helping her. Patient was given p.o. fluconazole on 08/16 due to white vaginal discharge. (4) Abdominal pain: worsened since starting mounjaro but UTI and liver mets could be contributing, ileus on CT 08/13 as above Also with h/o constipation-now resolved Improved now with PPI BID, pepcid BID, and treating UTI continue oxycodone prn consider Miralax for constipation (5) Chronic GERD: PPI increased to BID and pepcid added BID per GI plan for outpt EGD if having ongoing issues Fecal occult/stool PCR negative (6) Hypothyroidism: TSH wnl on check Remains on LT4 37.5mcg daily (7) Pain due to interstitial cystitis: pt unaware of this diagnosis start methenamine after infection cleared for recurrent UTI as per Urology (8) Diabetes type 2, controlled: a1c 5.5 -- was on Trulicity but was not able to obtain and then placed on mounjaro Would NOT resume her mounjaro or Trulicity on discharge given about to resume chemotherapy and this will cause issues with N/V most likely alone HgbA1C low regardless Lantus and Novolog here recommend once daily dose of Lantus at home on discharge (9) Atrial fibrillation: Eliquis BID resumed this AM after held for port surgery in normal rhythm on exam (10) Constipation: resolved, then with some mild diarrhea Stool PCR and C. diff negative (11) Recurrent UTI (urinary tract infection): following by [facility]ber[facility] (12) Anemia: chronic, likely of chronic disease and from chemotherapy, hgb stable at 9-10 for 6-8 months,macrocytic iron studies w/o significant deficiency. b12/folate replete periph smear negative TSH wnl fecal occult NEGATIVE Plan Discharged to home Total Time Total Time Spent Total Time Spent (In Minutes): 35 Discharge Plan Discharge Items Patient Disposition: Home - Self-Care Reason For Visit: ABD PAIN N/V Discharge Diagnosis: Mounjaro induced GI side effects ESBL Klebsiella UTI Metastatic breast cancer with liver mets Activity: Resume your previous activity Non-emergency contact: Primary Care Provider Call non-emergency contact if: you have any medication questions and your symptoms worsen Follow-up/Referrals: Quinn Lovett MD [Primary Care Provider] - 08/26/23 1:30 pm (WITH MIRIAM GREGORY) Morelia Ocampo CRNP [Nurse Practitioner] - 08/26/23 11:30 am Garrett De Luna MD [Physician] - 08/29/23 10:00 am Diet: Carb Consistent or DM2 and Heart Healthy Addtl Attending Provider Instructions: Advised to follow-up with PCP in 1 week Advised to follow-up with urology in 1 week Advised to follow-up with oncologist in 1 week Pending Studies at Discharge: No Stand-Alone Forms: My [facility] Medications and DC Order Prescriptions: New oxycodone 5 mg Tablet 10 mg PO Q4H PRN (Reason: pain) Qty: 20 0RF phenazopyridine [Pyridium] 100 mg tablet 100 mg PO TID PRN (Reason: pain) Qty: 14 0RF Continued pantoprazole [Protonix] 40 mg tablet,delayed release (DR/EC) 40 mg PO QAM Qty: 90 3RF atorvastatin 40 mg tablet 40 mg PO HS Qty: 90 3RF (DME) OneTouch Ultra Test Strip See Rx Instructions .Route Qty: 100 5RF Rx Instructions: Test BS 3x daily cyanocobalamin (vitamin B-12) 1,000 mcg/mL kit 1,000 mcg IM MONTHLY Qty: 1 3RF Rx Instructions: PER PT "DUE NOW" USUALLY AROUND THE 12TH. diltiazem HCl 360 mg capsule,extended release 24 hr 360 mg PO QAM Qty: 90 3RF (DME) lancets [OneTouch Delica Plus Lancet] 33 gauge misc See Rx Instructions .Route Qty: 300 3RF Rx Instructions: use to check bsg 3 times daily albuterol sulfate 90 mcg/actuation HFA aerosol inhaler 2 puff INHALATION Q4 PRN (Reason: Shortness Of Breath Or Wheezing) Qty: 8.5 5RF Eliquis 5 mg tablet 5 mg PO BID Qty: 60 5RF meclizine 25 mg tablet 25 mg PO DAILY PRN (Reason: DIZZINESS/VERTIGO) diphenoxylate-atropine 2.5-0.025 mg tablet 1 tab PO QID PRN (Reason: Diarrhea) capecitabine [Xeloda] 150 mg tablet 150 mg PO BID Rx Instructions: 1 tablet bid for 14 days, then 1 week break, then resume 1 tablet bid for 14 days insulin glargine [Lantus U-100 Insulin] 100 unit/mL solution 20 unit subcut QPM (DME) pen needle, diabetic [Easy Comfort Pen [place]] 32 gauge x 5/32" needle See Rx Instructions .Route Qty: 100 3RF Rx Instructions: As directed tramadol 50 mg tablet 50 mg PO TID PRN (Reason: pain (scale score 7-10)) Qty: 90 0RF levothyroxine 25 mcg tablet 37.5 mcg PO QAM Qty: 135 3RF losartan 25 mg tablet 25 mg PO DAILY Qty: 90 3RF Trintellix 20 mg tablet 20 mg PO QAM hydroxyzine HCl 10 mg tablet 10 mg PO HS Rx Instructions: Take one tablet at night Discontinued Mounjaro 5 mg/0.5 mL pen injector 5 mg subcut WK Rx Instructions: FRIDAYS Discharge Orders: Discharge Order (Routine); Ordered 08/20/23 Ordered By: Jamison Mueller Admission Data Admit Date/Time: 08/09/23 11:03 Attending Provider: Jamison Mueller Admit Provider: Thomas Daugherty Primary Care Provider: Quinn Lovett Other Providers: Garrett De Luna; Quinn Rehman; Brian Kingston; Darinel Moses Other Interventions: Discharge Summary Assessment (RN) Last Done: 08/20/23 13:31 Coding Level of Care Code 32968 INP/OBS DISCH >30 MIN Diagnoses Nausea & vomiting R11.2 Vomiting type: unspecified Metastatic breast cancer C50.919 Urinary tract infection N30.01 Hematuria presence: with hematuria Urinary tract infection type: acute cystitis Abdominal pain R10.30 Abdominal location: lower abdomen, unspecified Chronic GERD K21.9 Hypothyroidism, unspecified type E03.9 Hypothyroidism type: unspecified Pain due to interstitial cystitis N30.10 Controlled type 2 diabetes mellitus without complication, with long-term current use of insulin E11.9; Z79.4 Diabetes mellitus complication status: without complication Diabetes mellitus mcc insulin use: with mcc use Atrial fibrillation, unspecified type I48.91 Atrial fibrillation type: unspecified Constipation K59.00 Recurrent UTI (urinary tract infection) N39.0 Anemia D64.9 Anemia type: unspecified type
== END 2023-08-20 15:39 | disposition home or self-care (01) | DRG 392 ==
LOC: ED 12:12 → 3W 12:12 → SUATTDRO 16:30 → 3W 17:06 → SUATTDRO 08-09 11:03

== ENCOUNTER 2023-12-26 11:01 | Observation (INO) ==
--- NOTE | 2023-12-26 11:37 | Emergency Department Note ---
History of Present Illness General Chief complaint: Trauma Stated complaint: NECK, BACK, LEG PAIN Time Seen by Provider: 12/26/23 11:11 Source: patient, RN notes reviewed and old records reviewed (12/18/23-office visit for lymphedema) Mode of arrival: ambulatory Limitations: no limitations History of Present Illness Maximum Pain Intensity: 10 This patient is a 73-year-old female who has metastatic breast cancer to the liver and is currently receiving chemo, comes in after multiple falls and having weakness in her legs. She has had lymphedema she saw her doctor recently on 12/18/2023. She had a blood transfusion yesterday because she has been very weak she is on a blood thinner for A-fib. She has hit her head when she fell a couple days ago she is also hit her arms and says she hurts all over. She feels she is diffusely weak but more so on the left side that is been going on for months she tells Home Medications Medication Instructions Recorded Confirmed Type blood sugar diagnostic ([employer] #100 ea 10/07/22 12/08/23 Rx Ultra Test strips) cyanocobalamin (vitamin B-12) 1,000 mcg IM MONTHLY #1 ea 10/07/22 12/26/23 Rx 1,000 mcg/mL injection kit [employer] Delica Plus Lancet 33 #300 ea 01/09/23 12/08/23 Rx gauge (lancets) albuterol sulfate 90 mcg/actuation 2 puff inhalation Q4 PRN Shortness 02/24/23 12/26/23 Rx aerosol inhaler Of Breath Or Wheezing #8.5 grams insulin glargine 100 unit/mL 15 unit subcut QPM 02/28/23 12/26/23 History subcutaneous solution (Lantus U-100 Insulin) meclizine 25 mg tablet 25 mg PO DAILY PRN 02/28/23 12/26/23 History DIZZINESS/VERTIGO pen needle, diabetic 32 gauge x #100 ea 06/12/23 12/08/23 Rx 5/32" (Easy Comfort Pen [place]) levothyroxine 25 mcg tablet 37.5 mcg (1.5 x 25 mcg) PO QAM 07/30/23 12/26/23 Rx #135 tabs apixaban 5 mg tablet (Eliquis) 5 mg PO BID #60 tabs 09/16/23 12/26/23 Rx duloxetine 60 mg capsule,delayed 60 mg PO QAM 09/26/23 12/26/23 History release (Cymbalta) pantoprazole 40 mg tablet,delayed 40 mg PO QAM #90 tabs 10/07/23 12/26/23 Rx release (Protonix) atorvastatin 40 mg tablet 40 mg PO HS #90 tabs 10/14/23 12/26/23 Rx losartan 25 mg tablet 25 mg PO QAM 10/17/23 12/26/23 History oxycodone 10 mg tablet 10 mg PO UD PRN Pain 10/17/23 12/26/23 History phenazopyridine 95 mg tablet 95 mg PO TID PRN Urinary Pain 10/17/23 12/26/23 History potassium chloride 20 mEq 20 meq PO QAM 10/17/23 12/26/23 History tablet,extended release diltiazem HCl 360 mg capsule,24 360 mg PO QAM #90 caps 12/16/23 12/26/23 Rx hr,extended release (Tiazac) furosemide 20 mg tablet 20 mg PO DAILY #30 tabs 12/18/23 12/26/23 Rx nystatin 100,000 unit/gram topical 1 applic topical DAILY #30 grams 12/18/23 12/26/23 Rx powder Allergies Allergy/AdvReac Type Severity Reaction Status Date / Time metformin AdvReac Intermediate RESTLESSNES Verified 12/26/23 14:11 S Past Med/Surg History Problem List (Updated 12/26/23 @ 15:10 by Elvis Bergeron MD) Weakness (Acute) Cervical strain (Acute) Pleural effusion (Acute) Bilateral edema of lower extremity (Acute) Frequent falls (Acute) Anticoagulant long-term use (Acute) Lymphedema Palliative care by specialist Anemia (Acute) Bilateral nephrolithiasis Hypokalemia Urinary tract infection (Acute) Nausea & vomiting (Acute) Acute dehydration (Acute) Metastases to the liver (Acute) Abdominal pain (Acute) Breast skin changes Microalbuminuria Hypothyroidism Pain due to interstitial cystitis Chronic diarrhea Recurrent UTI (urinary tract infection) Burning with urination MRSA (methicillin resistant staph aureus) culture positive (Acute) Diabetes type 2, controlled Chronic GERD Carpal tunnel syndrome on both sides with surgical intervention Anemia (Acute) Vitamin D deficiency Carpal tunnel syndrome of right wrist Leukopenia (Acute) Memory loss Metastatic breast cancer Anxiety Diabetic neuropathy pt denies Hyperglobulinemia Aortic valve stenosis Status post placement of cardiac pacemaker Anticoagulant long-term use Tachy-monica syndrome Atrial fibrillation follows with Dr Ramires Vitamin B12 deficiency (Chronic) Positive ESTEPHANIA (antinuclear antibody) (Chronic) Lumbar radiculopathy (Chronic) Lipodystrophy (Chronic) Gait disturbance (Chronic) Depression Constipation (Chronic) Arthritis (Chronic) Medical History Human metapneumovirus pneumonia Infected venous access port 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 History of blood transfusion Closed fracture of left distal fibula Breast cancer (12/18/15) "Abnormal left breast mammogram Status post core needle biopsy 12/18/2015 revealing infiltrating ductal carcinoma Estrogen receptor positive, progesterone receptor positive, HER-2/po negative Status post left needle localization lumpectomy and sentinel lymph node biopsy 01/04/2016 Stage pT1c pN0M0 Status post completion of radiation therapy 02/13/2016 received 3850 cGy utilizing accelerated partial breast irradiation." On 01/17/16 14:10 Deidre Orta wrote "Abnormal left breast mammogram Status post core needle biopsy 12/18/2015 revealing infiltrating ductal carcinoma Estrogen receptor positive, progesterone receptor positive, HER-2/po negative Status post left needle localization lumpectomy and sentinel lymph node biopsy 01/04/2016 Stage pT1c pN0M0" Generalized weakness Lung nodules monitoring Urinary frequency Pacemaker 2019, follows with Dr Ramires. checks Q6 months. Neuropathy Aortic stenosis Mild aortic stenosis (MERLENE 1.6cm2; MG 7.8mmHg) per 12/2019 echo Diabetes mellitus, type 2 IDDM Degenerative disc disease Hx of cardiac pacemaker Implanted 2019 (tachy-monica syndrome), [employer] device Follows with Dr. Ramires Liver mass Pt denies but 05/17/20 PET scan shows 2.5 right hepatic lobe mass consistent with known hepatic metastasis Anemia h/o blood transfusions Infiltrating ductal carcinoma of left breast Initial Dx 2015- s/p lumpectomy, XRT and anastrozole Metastatic breast cancer 03/2020, follows with [facility] Peripheral neuropathy Hands (B/L CTS) Obstructive sleep apnea "Resolved" s/p gastric bypass (? retested) Hypercholesterolemia Gastroesophageal reflux disease controlled, stable per pt Chronic pain Cervical spine disease Full ROM per pt Surgical History H/O breast biopsy (05/29/23) Skin, left breast, 2 punch biopsies: In office procedure Dr. Alvarez - Fibrosing dermatitis. - See comment Status post revision of total replacement of right knee History of removal of Port-a-Cath (01/11/22) Infected port right anterior chest removed Dr. Shah S/P cardiac pacemaker procedure 2019 History of surgery Right knee TKA revision with spacer (07/11/2021): SAB at L3-4 (x2 attempts) + PNB at [facility]. No issues noted per post-op anesthesia progress note. History of carpal tunnel surgery of left wrist 06/2021 History of carpal tunnel surgery of right wrist Port-A-Cath in place hx - 05/2020 since removed d/t infection at port 12/2021 History of colonoscopy History of evacuation of hematoma Hematoma right breast and right chest 08/31/13 Dr. Shah H/O bilateral hip replacements Status post repair of ventral hernia History of total knee arthroplasty R/L Status post total abdominal hysterectomy and bilateral salpingo-oophorectomy Status post lumbar spine surgery for decompression of spinal cord Status post partial mastectomy of left breast Status post panniculectomy History of section x1 Status post laparoscopic cholecystectomy Status post gastric bypass for obesity Status post arthroscopy of left shoulder Status post appendectomy Family History Unknown Breast cancer Emphysema lung Mother Diabetes Heart disease Father Heart disease Other No family history of adverse response to anesthesia Denies family history of Ovarian cancer Prostate cancer Coronary heart disease Colorectal cancer Social History Smoking Status: Never smoker Tobacco Type: Cigarettes packs per day: 2; Second Hand Exposure: No; Do You Dip or Chew Tobacco: No; Hx Alcohol Use: No Hx Substance Use: No Preferred Language: Azeri Communication Ability: Effective Visual Impairment: No Limitations Hearing Ability: Normal Human Service Specialist Required: No Beliefs That Will Affect Care: None marital status: Current Living Situation: Spouse current occupational status: retired Feels Safe at Home: Yes Childhood Exposure to Second-Hand Smoke: Yes Diet: diabetic caffeine: Yes Dental Care, Regularly: No Physical Activity Frequency: 1-2 Times per Week Seatbelt Use: always Sunscreen Use: No Assistive Devices: Glasses and Walker Review of Systems A total of 10 systems reviewed and were otherwise negative Physical Exam Vital Signs Vital Signs - 24 hr 12/26/23 11:07 12/26/23 11:25 12/26/23 11:25 Temperature 36.6 C Temperature Source Skin Pulse Rate 60 60 Pulse Rate [Apical] 60 Pulse Rhythm [Apical] Pulse Strength [Apical] Respiratory Rate 18 24 24 Respiratory Effort / Characteristics Respiratory Depth Respiratory Pattern Blood Pressure 206/88 H 193/73 H Blood Pressure [Right Arm] 192/73 H Blood Pressure Mean 127 Blood Pressure Mean [Right Arm] 112 Blood Pressure Position [Right Arm] Pulse Oximetry 99 98 98 Oxygen Delivery Method Room Air Room Air Room Air Sepsis Recent Fever Within 48 Hours No Sepsis New/Unexplained Change in Mental Status No Sepsis Action Taken by Nursing No Action Required 12/26/23 12:25 12/26/23 12:27 12/26/23 12:51 Temperature 36.5 C Temperature Source Oral Pulse Rate 80 Pulse Rate [Apical] 60 60 Pulse Rhythm [Apical] Regular Pulse Strength [Apical] Normal Respiratory Rate 20 Respiratory Effort / Characteristics Non-Labored Spontaneous Respiratory Depth Normal Respiratory Pattern Regular Blood Pressure Blood Pressure [Right Arm] 200/89 H 186/76 H Blood Pressure Mean Blood Pressure Mean [Right Arm] 126 112 Blood Pressure Position [Right Arm] Pulse Oximetry 98 99 Oxygen Delivery Method Room Air Room Air Sepsis Recent Fever Within 48 Hours Sepsis New/Unexplained Change in Mental Status Sepsis Action Taken by Nursing 12/26/23 13:25 12/26/23 14:16 Temperature Temperature Source Pulse Rate Pulse Rate [Apical] 65 70 Pulse Rhythm [Apical] Regular Pulse Strength [Apical] Normal Respiratory Rate 20 18 Respiratory Effort / Characteristics Non-Labored Spontaneous Respiratory Depth Normal Respiratory Pattern Regular Blood Pressure Blood Pressure [Right Arm] 185/76 H 166/83 H Blood Pressure Mean Blood Pressure Mean [Right Arm] 112 110 Blood Pressure Position [Right Arm] Sitting Pulse Oximetry 96 95 Oxygen Delivery Method Room Air Room Air Sepsis Recent Fever Within 48 Hours Sepsis New/Unexplained Change in Mental Status Sepsis Action Taken by Nursing Primary survey Airwa-intact she is talking and breathing without. Midline trachea Breathingequal breath sounds bilateral without crepitus Circulationextremities are well-perfused with intact pulses DisabilityGlasgow Coma Score 15no obvious fractures or deformity Secondary survey general: Chronic ill-appearing older female is somewhat pale and says she hurts all over but appears in no acute respiratory distress, breathing comfortably on room air. Normal speech HEENT: Normal cephalic atraumatic. Pupils are equal round and reactive to light. Extraocular movements are intact. Oropharynx is pink with moist mucous membranes. No swelling of the mouth lips or tongue. Neck: Supple with a midline trachea. No meningeal signs or stiffness, no JVD or bruits. No Stridor. Chest: Clear to auscultation bilaterally. No wheezes or rhonchi. No increased work of breathing. Heart: Regular rate and rhythm without murmurs or gallops. Abdomen: Soft nontender, nondistended without rebound guarding or rigidity. Extremities: No cyanosis clubbing. 1+ bilateral lower extremity edema no calf tenderness or assymetry. Bandage on right arm she has bruises from where she has fallen on extremities. Spine/Back. Non tender to palpation. No CVA tenderness Skin: Good turgor without rashes. Neurologic exam: Cranial nerves two through 12 are intact. Motor and sensation are intact and symmetrical throughout. Course Administered Medications Discontinued Medications Ioversol (Optiray 320 100ml) 94 ml IV ONCE ONE Stop: 12/26/23 11:44 Last Admin: 12/26/23 11:43 Dose: 94 ml Documented By: CECI Medical Decision Making Differential Diagnosis Traumatic injuries, head injury, intracranial hemorrhage, anemia, complication related to chemo, complication related to cancer, electrolyte or metabolic abnormality, internal injuries, orthopedic injuries, central neurologic process Medical Records Attestation: I reviewed the patient's medical records. Home Medications Current Medication List: was personally reviewed by sd Laboratory Data Attestation: I reviewed the patient's lab results. 12/26/23 11:21 12/26/23 11:21 Lab Results 12/26/23 12/26/23 12/26/23 Range/Units 11:21 11:27 11:30 WBC 12.30 H (4.8-10.8) K/ul RBC 3.77 L (4.20-5.40) M/uL Hgb 11.0 L (12.0-16.0) g/dl POC Hgb 11.6 L (12.0-16.0) g/dl Hct 33.8 L (37.0-47.0) % POC Hct 34 L (37-47) % MCV 89.7 (80.0-100.0) fL MCH 29.2 (25.0-34.0) pg MCHC 32.5 (32.0-36.0) g/dL RDW Std Deviation 62.1 H (36.4-46.3) fL RDW Coeff of Thompson 19.7 H (11.5-14.5) % Plt Count 182 (130-400) K/uL MPV 12.6 H (9.4-12.4) fL Immature Gran % (Auto) 0.6 % Neut % (Auto) 81.7 % Lymph % (Auto) 4.6 % [place] % (Auto) 12.4 % Eos % (Auto) 0.2 % Baso % (Auto) 0.5 % Neut # (Auto) 10.07 H (1.40-6.50) K/uL Lymph # (Auto) 0.56 L (1.20-3.40) K/uL [place] # (Auto) 1.52 H (0.11-0.59) K/uL Eos # (Auto) 0.02 (0.00-0.50) K/uL Baso # (Auto) 0.06 (0.00-0.20) K/uL Immature Gran # (Auto) 0.07 (0.01-0.20) K/uL PT 13.7 H (9.0-12.0) Seconds INR 1.3 H (0.9-1.1) APTT 46 H (21-31) Seconds PTT Ratio 1.7 POC Sodium 135 (135-144) mmol/L Sodium 136 (136-145) mmol/L POC Potassium 3.7 (3.3-5.0) mmol/L Potassium 3.5 (3.5-5.1) mmol/L POC Chloride 101 (101-112) mmol/L Chloride 107 (98-107) mmol/L Carbon Dioxide 20 L (21-32) mmol/L POC Total CO2 20 L (24-31) mmol/L Anion Gap 9 (3-11) POC Anion Gap 19.0 (16-25) mmol/L POC BUN 15 (7-18) mg/dl BUN 15 (6-23) mg/dl Creatinine 0.39 L (0.6-1.2) mg/dl POC Creatinine 0.4 L (0.6-1.3) mg/dl Est Cr Clr Drug Dosing Not Reportable Est GFR ( Amer) 119.1 ml/min Est GFR (Non-Af Amer) 102.7 ml/min BUN/Creatinine Ratio 38.5 H (10-20) Glucose 127 H (70-99(Fasting)) mg/dl POC Glucose 140 H (70-99) mg/dl POC Glucose (other) TNP Lactate 0.7 (0.4-2.0) mmol/L Calcium 7.6 L (8.6-10.3) mg/dl POC Ioniz Calcium Janice 1.06 L (1.12-1.32) mmol/l Total Bilirubin 0.8 (0.2-1.0) mg/dl AST 22 (13-39) U/L ALT 17 (7-52) U/L Alkaline Phosphatase 72 (34-104) U/L Total Creatine Kinase 56 (26-192) U/L Troponin I High Sens 14.7 H (0-14) pg/ml B-Natriuretic Peptide 354 H (0-100) pg/ml Total Protein 5.6 L (6.0-8.3) gm/dl Albumin 3.3 L (3.4-5.0) gm/dl Globulin 2.3 L (2.5-4.0) gm/dl Albumin/Globulin Ratio 1.4 (0.9-2) Blood Type O Positive Antibody Screen NEGATIVE Imaging Data Attestation: I personally reviewed and interpreted this imaging study as follows: My Impression: Head CTno hemorrhage or mass effect seen Chest CTthere is no pneumothorax . There is a small pleural effusion on the left Radiologist's Impression: Abdomen/Pelvis CT 12/26/23 11:19 CT OF THE ABDOMEN AND PELVIS WITH CONTRAST CLINICAL HISTORY: fall/trauma, metastatic breast cancer. COMPARISON STUDY: CT of the abdomen and pelvis November 17, 2023. TECHNIQUE: Following IV administration of 94 mL of Optiray, axial images of the abdomen and pelvis were obtained from the lung bases to the proximal femurs. Images were reviewed in the axial, sagittal, and coronal planes. IV contrast was administered without complication. Automated exposure control was utilized for the study. A dose lowering technique was utilized adhering to the principles of ALARA. FINDINGS: Please note that the chest CT will be reported separately. There is a trace left pleural effusion. No hemoperitoneum or pneumoperitoneum is present. Several hepatic lesions are unchanged since CT of November 17, 2023. Index right hepatic lobe lesion measures 5.7 x 3 cm. No new lesions are identified. There is no evidence for traumatic injury to the liver, spleen, adrenal glands, kidneys or pancreas. Bilateral renal calculi are present. There are no ureteral calculi and there is no hydronephrosis. A gallstone within a possible gallbladder remnant is noted. There is no evidence for acute cholecystitis. There is no evidence for a bowel obstruction. No hydronephrosis is present. Bilateral hip arthroplasties are intact. No acute lumbar spine, pelvic or hip fractures are identified. Anasarca is similar to prior exam. Fluid within the anterior abdominal wall is unchanged. No pathologically enlarged abdominal or pelvic lymph nodes are present. There are multiple old bilateral rib fractures. Postoperative findings within the spine are incidentally noted. The hardware is intact. IMPRESSION: 1. No acute traumatic findings within the abdomen or pelvis. 2. No change in hepatic metastases since prior CT. 3. Body wall edema, unchanged. 4. No acute fractures. ACT 112: Negative or not required by law. Electronically signed by: Eladio Keane M.D. 12/26/2023 12:[address] 12/26/23 11:19 CT OF THE CERVICAL SPINE WITHOUT CONTRAST CLINICAL HISTORY: fall COMPARISON STUDY: Cervical spine CT October 17, 2023. MRI of the cervical spine November 11, 2023. TECHNIQUE: Helical axial images of the cervical spine were obtained without IV contrast. Sagittal and coronal reconstructions were viewed. Automated exposure control was utilized for the study. A dose lowering technique was utilized adhering to the principles of ALARA. FINDINGS: There is moderate prevertebral edema. Anterolisthesis of C4 and C5 with widening of the disc space is unchanged. This is chronic. There is severe multilevel facet arthrosis. There is moderate multilevel disc space narrowing. No cervical spine fractures are identified. There are degenerative changes at the C1-C2 articulation. IMPRESSION: 1. No acute cervical spine fracture or subluxation. 2. Moderate prevertebral edema. This raises the possibility of ligamentous injury. 3. Severe multilevel facet arthrosis and moderate degenerative disc disease within the cervical spine. ACT 112: Negative or not required by law. Electronically signed by: Eladio Keane M.D. 12/26/2023 12:[address] 12/26/23 11:19 CT SCAN OF THE CHEST WITH IV CONTRAST CLINICAL HISTORY: Trauma. Fall. Metastatic breast cancer. COMPARISON STUDY: Prior chest CT scans, most recently dated 11/17/2023. TECHNIQUE: Following the IV administration of 94 cc of Optiray 320, CT scan of the thorax was performed from the thoracic inlet to the upper abdomen. Images are reviewed in the axial, sagittal, and coronal planes. IV contrast was administered without complication. A dose lowering technique was utilized adhering to the principles of ALARA. The examination is degraded by motion artifact, as well as by streak artifact from the arms which could not be elevated above the chest. FINDINGS: Thyroid: Imaged portions of the thyroid gland are normal in size and attenuation. Thoracic aorta: There is atherosclerotic calcification of the thoracic aorta, which is normal in caliber and demonstrates standard 3-vessel arch anatomy. No dissection is seen. Heart: A pacemaker is present in the left chest wall. A right internal jugular central venous infusion port is in place. The heart is enlarged and and without pericardial effusion. There is coronary artery atherosclerosis. The pulmonary trunk is normal in caliber. Lungs and pleural spaces: There is no airspace consolidation or pneumothorax. Trace pleural fluid is seen on the left. The trachea and central airways are clear. Scattered foci of probable scarring are seen throughout both lungs. There are scattered calcified granulomas. Mediastinum: There is no mediastinal lymphadenopathy. Karissa: Clear. Axillae: There is no axillary lymphadenopathy. Upper abdomen: Cholecystectomy clips are noted. There is evidence of multifocal hepatic metastatic disease. Skeletal structures: The skeletal structures are osteopenic. The bony thorax is grossly intact. Degenerative change and mild hyperkyphosis is noted throughout the thoracic spine. No lytic or blastic bony lesions are seen. A left shoulder arthroplasty is in place. Advanced arthritic change is noted in the right shoulder. There is chronic deformity of several bilateral ribs. No acute/displaced rib fractures clearly identified. Soft tissues: There is mild body wall edema. Postsurgical change is suggested in the right breast. IMPRESSION: 1. No acute post traumatic intrathoracic abnormality is identified. 2. There is trace pleural fluid on the left which is new from 11/17/2023. 3. No airspace consolidation or pneumothorax is seen. 4. Multifocal hepatic metastatic disease is again noted. 5. Cardiomegaly and AICD. 6. Additional findings as above. ACT 112: Negative or not required by law. Electronically signed by: Noe Carrillo M.D. 12/26/2023 12:[address] 12/26/23 11:19 CT head/brain wo con CLINICAL HISTORY: freq falls/trauma, Technique: Contiguous axial CT images of the head were acquired from the base of the skull to the vertex without intravenous contrast administration. Images were viewed in brain, subdural and bone windows. Automated dose lowering techniques and/or adjustment according to patient size were utilized for this exam. Comparison: Comparison is made to CT head 10/17/2023 Findings: Areas of decreased attenuation are present in the periventricular and subcortical white matter bilaterally consistent with small vessel ischemic disease. Generalized cerebral atrophy with commensurate enlargement of the ventricles, sulci, and cisterns is also present. There is no acute intracranial hemorrhage or evidence of acute territorial infarction. No shift of the midline structures, mass effect, or extra-axial abnormalities are shown. Atherosclerotic calcifications are present in the intracranial segments of the internal carotid arteries. Imaged portions of the paranasal sinuses and mastoid air cells are clear. The orbits appear normal. There are no acute fractures of the calvaria or scalp swelling. Impression: No acute intracranial hemorrhage, no evidence of acute territorial infarction or other acute intracranial disease process. ACT 112: Negative or not required by law. Electronically signed by: Emre Riojas M.D. 12/26/2023 12:04 PM ECG Data Attestation: I personally reviewed and interpreted this ECG as follows: Indication: + weakness Rate (beats per minute): 60 Rhythm: + other (Paced rhythm) ECG Intervals/blocks: + Normal QT ECG [place]: + Normal ECG ST segments: + Normal ST segments ECG Findings: no PACs or no PVCs MDM Narrative This patient comes in as scribed above she has had multiple falls she is on a blood thinner and also receiving chemo and has liver cancer these were all concerning factors for possibly thinning her blood. She is hemodynamically stable she does have a port in her chest which we accessed. I did order campos trauma scans after we got an i-STAT hemoglobin 11 on the i-STAT which is actually good for her she has been running in the 7 range and was just recently transfused she had normal creatinine. CAT scans were obtained multiple blood testing was obtained she was placed on a turnaround engineer. Her EKG shows a paced rhythm her troponin is mildly elevated we will trend this. Her BNP is also elevated and does have some fluid overload in her legs. CAT scans show no acute traumatic injuries with exception she may have a ligamentous and injury in her neck. No bony abnormality or injury. She does have a small pleural effusion and has generalized edema. I do think she will need to be admitted/observed. I did discuss the CT findings of the neck with Dr. Reza our spine surgeon he has reviewed the films he did recommend a soft collar which I placed. He felt the patient could stay here and there is no reason to transfer this patient out. I also discussed the case in consultation with Dr. Daugherty who is the [facility] hospitalist and he will be admitting/observing the patient for further inpatient treatment and evaluation Continuous cardiac monitoring: Orders were placed in EMR for continuous turnaround engineer: Upon my evaluation patient noted to be in a paced rhythm with a rate of 60 Impression & Plan Weakness, Metastatic breast cancer, Anticoagulant long-term use, Frequent falls, Bilateral edema of lower extremity, Pleural effusion, Cervical strain Discharge Plan Visit Data Chief Complaint: Trauma Stated Complaint: NECK, BACK, LEG PAIN ED Provider: Elvis Bergeron Discharge Problem: Weakness, Metastatic breast cancer, Anticoagulant long-term use, Frequent falls, Bilateral edema of lower extremity, Pleural effusion, Cervical strain Forms Stand Alone Forms: [facility] Prescriptions Prescriptions: No Action (DME) OneTouch Ultra Test Strip See Rx Instructions .Route Qty: 100 5RF Rx Instructions: Test BS 3x daily cyanocobalamin (vitamin B-12) 1,000 mcg/mL kit 1,000 mcg IM MONTHLY Qty: 1 3RF (DME) lancets [OneTouch Delica Plus Lancet] 33 gauge misc See Rx Instructions .Route Qty: 300 3RF Rx Instructions: use to check bsg 3 times daily albuterol sulfate 90 mcg/actuation HFA aerosol inhaler 2 puff INHALATION Q4 PRN (Reason: Shortness Of Breath Or Wheezing) Qty: 8.5 5RF meclizine 25 mg tablet 25 mg PO DAILY PRN (Reason: DIZZINESS/VERTIGO) insulin glargine [Lantus U-100 Insulin] 100 unit/mL solution 15 unit subcut QPM (DME) pen needle, diabetic [Easy Comfort Pen [place]] 32 gauge x 5/32" needle See Rx Instructions .Route Qty: 100 3RF Rx Instructions: As directed levothyroxine 25 mcg tablet 37.5 mcg PO QAM Qty: 135 3RF Eliquis 5 mg tablet 5 mg PO BID Qty: 60 5RF pantoprazole [Protonix] 40 mg tablet,delayed release (DR/EC) 40 mg PO QAM Qty: 90 3RF atorvastatin 40 mg tablet 40 mg PO HS Qty: 90 3RF diltiazem HCl [Tiazac] 360 mg capsule,extended release 24 hr 360 mg PO QAM Qty: 90 3RF furosemide 20 mg tablet 20 mg PO DAILY Qty: 30 5RF nystatin 100,000 unit/gram powder 1 applic topical DAILY Qty: 30 2RF duloxetine [Cymbalta] 60 mg capsule,delayed release(DR/EC) 60 mg PO QAM phenazopyridine [Azo] 95 mg Tablet 95 mg PO TID PRN (Reason: Urinary Pain) oxycodone 10 mg tablet 10 mg PO UD PRN (Reason: Pain) Rx Instructions: Every 4-6 hours as needed potassium chloride 20 mEq tablet extended release 20 meq PO QAM losartan 25 mg tablet 25 mg PO QAM Referrals Referrals: Quinn Lovett MD [Primary Care Provider] - Discharge Problem: Cervical strain Qualifiers: Encounter type: initial encounter Qualified Code(s): S16.1XXA - Strain of muscle, fascia and tendon at neck level, initial encounter
[2023-12-26 11:38] LABS: Basophils # (auto) 0.06 K/uL (0.00-0.20); Basophils % (auto) 0.5 %; Eosinophils # (auto) 0.02 K/uL (0.00-0.50); Eosinophils % (auto) 0.2 %; Hematocrit (blood only) 33.8 % (37.0-47.0); Immature Granulocytes # (auto) 0.07 K/uL (0.01-0.20); Immature Granulocytes % (auto) 0.6 %; Lymphocytes # (auto) 0.56 K/uL (1.20-3.40); Lymphocytes % (auto) 4.6 %; Mean Corpuscular Hemoglobin 29.2 pg (25.0-34.0); Mean Corpuscular Hgb Conc 32.5 g/dL (32.0-36.0); Mean Corpuscular Volume 89.7 fL (80.0-100.0); Mean Platelet Volume 12.6 fL (9.4-12.4); Monocytes # (auto) 1.52 K/uL (0.11-0.59); Monocytes % (auto) 12.4 %; Neutrophils # (auto) 10.07 K/uL (1.40-6.50); Neutrophils % (auto) 81.7 %; Platelet Count 182 K/uL (130-400); RDW Coefficient of Variation 19.7 % (11.5-14.5); RDW Standard Deviation 62.1 fL (36.4-46.3); Red Blood Count 3.77 M/uL (4.20-5.40)
[2023-12-26] MEDS: OPTIRAY 320 100ml IV ONE (11:43)
[2023-12-26 12:00] LABS: Alanine Aminotransferase 17 U/L (7-52); Albumin Globulin Ratio 1.4 (0.9-2); Albumin Level 3.3 gm/dl (3.4-5.0); Alkaline Phosphatase 72 U/L (34-104); Anion Gap 9 (3-11); Aspartate Aminotransferase 22 U/L (13-39); BUN Creatinine Ratio 38.5 (10-20); Bilirubin,Total 0.8 mg/dl (0.2-1.0); Blood Urea Nitrogen 15 mg/dl (6-23); Calcium 7.6 mg/dl (8.6-10.3); Carbon Dioxide 20 mmol/L (21-32); Chloride 107 mmol/L (98-107); Creatine Kinase 56 U/L (26-192); Est GFR (African American) 119.1 ml/min; Est GFR (Non-African American) 102.7 ml/min; Globulin 2.3 gm/dl (2.5-4.0); Glucose 127 mg/dl (70-99(Fasting)); Potassium 3.5 mmol/L (3.5-5.1); Sodium 136 mmol/L (136-145); Total Protein 5.6 gm/dl (6.0-8.3)
--- NOTE | 2023-12-26 12:05 | CT Scan Report ---
CT head/brain wo con CLINICAL HISTORY: freq falls/trauma, Technique: Contiguous axial CT images of the head were acquired from the base of the skull to the sharon juana without intravenous contrast administration. Images were viewed in brain, subdural and [facility]. Automated dose lowering techniques and/or adjustment according to patient size were utilized for this exam. Comparison: Comparison is made to CT head 10/17/2023 Findings: Areas of decreased attenuation are present in the periventricular and subcortical white matter bilate rally consistent with small vessel ischemic disease. Generalized cerebral atrophy with commensurate e nlargement of the ventricles, sulci, and cisterns is also present. There is no acute intracranial hem orrhage or evidence of acute territorial infarction. No shift of the midline structures, mass effect, or extra-axial abnormalities are shown. Atherosclerotic calcifications are present in the intracran ial segments of the internal carotid arteries. Imaged portions of the paranasal sinuses and mastoid air cells are clear. The orbits appear normal. There are no acute fractures of the calvaria or scalp swelling. Impression: No acute intracranial hemorrhage, no evidence of acute territorial infarction or other acute intracra nial disease process. ACT 112: Negative or not required by law. Electronically signed by: Emre Riojas M.D. 12/26/2023 12:04 PM
[2023-12-26 12:06] LABS: Troponin I High Sensitivity 14.7 pg/ml (0-14)
[2023-12-26 12:08] LABS: INR 1.3 (0.9-1.1); Partial Thromboplastin Ratio 1.7; Partial Thromboplastin Time 46 Seconds (21-31); Prothrombin Time 13.7 Seconds (9.0-12.0)
--- NOTE | 2023-12-26 12:09 | CT Scan Report ---
CT OF THE CERVICAL SPINE WITHOUT CONTRAST CLINICAL HISTORY: fall COMPARISON STUDY: Cervical spine CT October 17, 2023. MRI of the cervical spine November 11, 2023. TECHNIQUE: Helical axial images of the cervical spine were obtained without IV contrast. Sagittal a nd coronal reconstructions were viewed. Automated exposure control was utilized for the study. A do se lowering technique was utilized adhering to the principles of ALARA. FINDINGS: There is moderate prevertebral edema. Anterolisthesis of C4 and C5 with widening of the dis c space is unchanged. This is chronic. There is severe multilevel facet arthrosis. There is moderate multilevel disc space narrowing. No cervical spine fractures are identified. There are degenerative c hanges at the C1-C2 articulation. IMPRESSION: 1. No acute cervical spine fracture or subluxation. 2. Moderate prevertebral edema. This raises the possibility of ligamentous injury. 3. Severe multilevel facet arthrosis and moderate degenerative disc disease within the cervical spine . ACT 112: Negative or not required by law. Electronically signed by: Eladio Keane M.D. 12/26/2023 12:06 PM
--- NOTE | 2023-12-26 12:14 | CT Scan Report ---
CT OF THE ABDOMEN AND PELVIS WITH CONTRAST CLINICAL HISTORY: fall/trauma, metastatic breast cancer. COMPARISON STUDY: CT of the abdomen and pelvis November 17, 2023. TECHNIQUE: Following IV administration of 94 mL of Optiray, axial images of the abdomen and pelvis we re obtained from the lung bases to the proximal femurs. Images were reviewed in the axial, sagittal, and coronal planes. IV contrast was administered without complication. Automated exposure control wa s utilized for the study. A dose lowering technique was utilized adhering to the principles of ALARA . FINDINGS: Please note that the chest CT will be reported separately. There is a trace left pleural ef fusion. No hemoperitoneum or pneumoperitoneum is present. Several hepatic lesions are unchanged since CT of November 17, 2023. Index right hepatic lobe lesion measures 5.7 x 3 cm. No new lesions are identifi ed. There is no evidence for traumatic injury to the liver, spleen, adrenal glands, kidneys or pancre as. Bilateral renal calculi are present. There are no ureteral calculi and there is no hydronephrosis . A gallstone within a possible gallbladder remnant is noted. There is no evidence for acute cholecys titis. There is no evidence for a bowel obstruction. No hydronephrosis is present. Bilateral hip arth roplasties are intact. No acute lumbar spine, pelvic or hip fractures are identified. Anasarca is sim ilar to prior exam. Fluid within the anterior abdominal wall is unchanged. No pathologically enlarged abdominal or pelvic lymph nodes are present. There are multiple old bilateral rib fractures. Postope rative findings within the spine are incidentally noted. The hardware is intact. IMPRESSION: 1. No acute traumatic findings within the abdomen or pelvis. 2. No change in hepatic metastases since prior CT. 3. Body wall edema, unchanged. 4. No acute fractures. ACT 112: Negative or not required by law. Electronically signed by: Eladio Keane M.D. 12/26/2023 12:13 PM
--- NOTE | 2023-12-26 12:20 | CT Scan Report ---
CT SCAN OF THE CHEST WITH IV CONTRAST CLINICAL HISTORY: Trauma. Fall. Metastatic breast cancer. COMPARISON STUDY: Prior chest CT scans, most recently dated 11/17/2023. TECHNIQUE: Following the IV administration of 94 cc of Optiray 320, CT scan of the thorax was perform ed from the thoracic inlet to the upper abdomen. Images are reviewed in the axial, sagittal, and toribio nal planes. IV contrast was administered without complication. A dose lowering technique was utilize d adhering to the principles of ALARA. The examination is degraded by motion artifact, as well as by streak artifact from the arms which could not be elevated above the chest. FINDINGS: Thyroid: Imaged portions of the thyroid gland are normal in size and attenuation. Thoracic aorta: There is atherosclerotic calcification of the thoracic aorta, which is normal in erik eugenio and demonstrates standard 3-vessel arch anatomy. No dissection is seen. Heart: A pacemaker is present in the left chest wall. A right internal jugular central venous infusio n port is in place. The heart is enlarged and and without pericardial effusion. There is coronary art fide atherosclerosis. The pulmonary trunk is normal in caliber. Lungs and pleural spaces: There is no airspace consolidation or pneumothorax. Trace pleural fluid is seen on the left. The trachea and central airways are clear. Scattered foci of probable scarring are seen throughout both lungs. There are scattered calcified granulomas. Mediastinum: There is no mediastinal lymphadenopathy. Karissa: Clear. Axillae: There is no axillary lymphadenopathy. Upper abdomen: Cholecystectomy clips are noted. There is evidence of multifocal hepatic metastatic di sease. Skeletal structures: The skeletal structures are osteopenic. The bony thorax is grossly intact. Degen erative change and mild hyperkyphosis is noted throughout the thoracic spine. No lytic or blastic bon y lesions are seen. A left shoulder arthroplasty is in place. Advanced arthritic change is noted in t he right shoulder. There is chronic deformity of several bilateral ribs. No acute/displaced rib fract ures clearly identified. Soft tissues: There is mild body wall edema. Postsurgical change is suggested in the right breast. IMPRESSION: 1. No acute post traumatic intrathoracic abnormality is identified. 2. There is trace pleural fluid on the left which is new from 11/17/2023. 3. No airspace consolidation or pneumothorax is seen. 4. Multifocal hepatic metastatic disease is again noted. 5. Cardiomegaly and AICD. 6. Additional findings as above. ACT 112: Negative or not required by law. Electronically signed by: Noe Carrillo M.D. 12/26/2023 12:19 PM
[2023-12-26 12:51] LABS: iSTAT Blood Urea Nitrogen 15 mg/dl (7-18); iSTAT Carbon Dioxide 20 mmol/L (24-31); iSTAT Chloride 101 mmol/L (101-112); iSTAT Creatinine 0.4 mg/dl (0.6-1.3); iSTAT Hematocrit 34 % (37-47); iSTAT Hemoglobin 11.6 g/dl (12.0-16.0); iSTAT Ionized Calcium 1.06 mmol/l (1.12-1.32); iSTAT Potassium 3.7 mmol/L (3.3-5.0); iSTAT Sodium 135 mmol/L (135-144)
[2023-12-26] MEDS ORDERED: GLUCOSE 10 TAB/TUBE PO PRN (13:27)
[2023-12-26] MEDS ORDERED: CARBOHYDRATES FOR HYPOGLYCEMIA PO PRN (13:27)
[2023-12-26] MEDS ORDERED: ONDANSETRON INJ 2 MG/ML 2 ML VIAL IV PRN (13:27)
[2023-12-26] MEDS ORDERED: GLUCAGON FOR INJ 1 MG VIAL SQ PRN (13:27)
[2023-12-26] MEDS ORDERED: GLUCOSE 40% GEL 15 GM TUBE PO PRN (13:27)
[2023-12-26] MEDS ORDERED: DEXTROSE 50% 50 ML SYRINGE IV PRN (13:27)
--- NOTE | 2023-12-26 14:16 | History & Physical Report ---
Date of Service December 26, 2023 Assessment & Plan (1) Cervical strain: Plan: Assessment: 1. Neck pain with probable strain sprain with possible ligamentous injury with cervical edema on CT. Orthopedic spine surgery consulted. Soft collar. 2. Debility with frequent falls at home. PT and OT is consulted. Patient is interested in possible inpatient rehab. Case management consulted. 3. Paroxysmal atrial fibrillation. Paced rhythm on EKG today. On Eliquis t herapy this is going to be held due to the frequent falls. Decision will need to be made prior to discharge whether to continue or discontinue Eliquis due to high fall risk. 4. Abnormal troponin mildly elevated at 14.7. No hernandez chest pain. Repeat troponin pending. EKG is paced. Echocardiogram ordered. 5. Breast carcinoma with metastatic disease to the liver. Under active treatment. 6. Leukocytosis. Rule out UTI. 8. Generalized weakness. Patient has a history of frequent UTIs we have ordered a stat urinary cath specimen. Will be called with the results. Orders written. 9. Mild hypocalcemia. Recheck in the morning. Replace if needed. 10. History of diabetes mellitus. Insulin sliding scales been ordered. A1c in the morning. 10. History of diabetic neuropathy. 11. Anemia. Stable. Received 2 units of packed red blood cells yesterday as an outpatient. 12. GERD. Continue home meds. Yet to be reconciled. 13. History of aortic stenosis. Echocardiograms been ordered. 14. History of tachybradycardia syndrome status post pacemaker placement. Appears to be pacemaker dependent today on EKG. Plan: As described above. Please refer to orders for further planning. History of Present Illness Chief Complaint: Multiple falls, neck pain. Primary Care Provider: Quinn Lovett MD This is a 73-year-old female with a history of metastatic breast carcinoma to the liver. Under active chemotherapy treatment. She had chemotherapy a couple days ago. Yesterday she had a blood transfusion with 2 units of packed red blood cells. She has had multiple falls with increasing left neck pain over the last few days. She presented the ER for further evaluation and treatment. In the emergency department she was found to have a white count of 12.3 hemoglobin of 11 and INR 1.3-she is on chronic Eliquis therapy. Creatinine unremarkable. Troponin was 14.7. CT of the chest was negative for traumatic injury. It did show trace pleural effusion. There was no pneumothorax or consolidations. There was multifocal hepatic metastatic disease noted. CT of the cervical spine was pertinent for no acute spine fracture or sublux station. However there was moderate paravertebral edema raising the possibility of a ligamentous injury. With severe multi focal facet arthrosis with moderate degenerative disc disease of the cervical spine. We are called to admit the patient for her troponin at 14.7 and weakness. We requested ER consultation with orthopedic spine surgery that was made. Recommending soft collar for now they will see the patient on consultation. We are repeating a stat troponin. In addition given the increased weakness with multiple falls and the white blood cell count we have ordered a stat UA catheterized urine. It is pending at the time of this dictation. Allergies Allergy/AdvReac Type Severity Reaction Status Date / Time metformin AdvReac Intermediate RESTLESSNES Verified 12/26/23 14:11 S Home Medications Medication Instructions Recorded Confirmed Type blood sugar diagnostic (OneTouch #100 ea 10/07/22 12/08/23 Rx Ultra Test strips) cyanocobalamin (vitamin B-12) 1,000 mcg IM MONTHLY #1 ea 10/07/22 12/08/23 Rx 1,000 mcg/mL injection kit OneTouch Delica Plus Lancet 33 #300 ea 01/09/23 12/08/23 Rx gauge (lancets) albuterol sulfate 90 mcg/actuation 2 puff inhalation Q4 PRN Shortness 02/24/23 12/08/23 Rx aerosol inhaler Of Breath Or Wheezing #8.5 grams diphenoxylate-atropine 2.5 1 tab PO QID PRN Diarrhea 02/28/23 12/08/23 History mg-0.025 mg tablet (Lomotil) insulin glargine 100 unit/mL 15 unit subcut QPM 02/28/23 12/08/23 History subcutaneous solution (Lantus U-100 Insulin) meclizine 25 mg tablet 25 mg PO DAILY PRN 02/28/23 12/08/23 History DIZZINESS/VERTIGO pen needle, diabetic 32 gauge x #100 ea 06/12/23 12/08/23 Rx 5/32" (Easy Comfort Pen [place]) levothyroxine 25 mcg tablet 37.5 mcg (1.5 x 25 mcg) PO QAM 07/30/23 12/08/23 Rx #135 tabs apixaban 5 mg tablet (Eliquis) 5 mg PO BID #60 tabs 09/16/23 12/08/23 Rx duloxetine 60 mg capsule,delayed 60 mg PO QAM 09/26/23 12/08/23 History release (Cymbalta) pantoprazole 40 mg tablet,delayed 40 mg PO QAM #90 tabs 10/07/23 12/08/23 Rx release (Protonix) atorvastatin 40 mg tablet 40 mg PO HS #90 tabs 10/14/23 12/08/23 Rx losartan 25 mg tablet 25 mg PO QAM 10/17/23 12/08/23 History oxycodone 10 mg tablet 10 mg PO UD PRN Pain 10/17/23 12/08/23 History phenazopyridine 95 mg tablet 95 mg PO TID PRN Urinary Pain 10/17/23 12/08/23 History potassium chloride 20 mEq 20 meq PO QAM 10/17/23 12/08/23 History tablet,extended release diltiazem HCl 360 mg capsule,24 360 mg PO QAM #90 caps 12/16/23 Rx hr,extended release (Tiazac) furosemide 20 mg tablet 20 mg PO DAILY #30 tabs 12/18/23 12/18/23 Rx nystatin 100,000 unit/gram topical 1 applic topical DAILY #30 grams 12/18/23 12/18/23 Rx powder Past Med/Surg History Problem List (Updated 12/26/23 @ 12:35 by Elvis Bergeron MD) Cervical strain (Acute) Pleural effusion (Acute) Bilateral edema of lower extremity (Acute) Frequent falls (Acute) Anticoagulant long-term use (Acute) Lymphedema Palliative care by specialist Anemia (Acute) Bilateral nephrolithiasis Hypokalemia Urinary tract infection (Acute) Nausea & vomiting (Acute) Acute dehydration (Acute) Metastases to the liver (Acute) Abdominal pain (Acute) Breast skin changes Microalbuminuria Hypothyroidism Pain due to interstitial cystitis Chronic diarrhea Recurrent UTI (urinary tract infection) Burning with urination MRSA (methicillin resistant staph aureus) culture positive (Acute) Diabetes type 2, controlled Chronic GERD Carpal tunnel syndrome on both sides with surgical intervention Anemia (Acute) Vitamin D deficiency Carpal tunnel syndrome of right wrist Leukopenia (Acute) Memory loss Metastatic breast cancer Anxiety Diabetic neuropathy pt denies Hyperglobulinemia Aortic valve stenosis Status post placement of cardiac pacemaker Anticoagulant long-term use Tachy-monica syndrome Atrial fibrillation follows with Dr Ramires Vitamin B12 deficiency (Chronic) Positive ESTEPHANIA (antinuclear antibody) (Chronic) Lumbar radiculopathy (Chronic) Lipodystrophy (Chronic) Gait disturbance (Chronic) Depression Constipation (Chronic) Arthritis (Chronic) Medical History Human metapneumovirus pneumonia Infected venous access port 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 History of blood transfusion Closed fracture of left distal fibula Breast cancer (12/18/15) "Abnormal left breast mammogram Status post core needle biopsy 12/18/2015 revealing infiltrating ductal carcinoma Estrogen receptor positive, progesterone receptor positive, HER-2/po negative Status post left needle localization lumpectomy and sentinel lymph node biopsy 01/04/2016 Stage pT1c pN0M0 Status post completion of radiation therapy 02/13/2016 received 3850 cGy utilizing accelerated partial breast irradiation." On 01/17/16 14:10 Deidre Orta wrote "Abnormal left breast mammogram Status post core needle biopsy 12/18/2015 revealing infiltrating ductal carcinoma Estrogen receptor positive, progesterone receptor positive, HER-2/po negative Status post left needle localization lumpectomy and sentinel lymph node biops y 01/04/2016 Stage pT1c pN0M0" Generalized weakness Lung nodules monitoring Urinary frequency Pacemaker 2019, follows with Dr Ramires. checks Q6 months. Neuropathy Aortic stenosis Mild aortic stenosis (MERLENE 1.6cm2; MG 7.8mmHg) per 12/2019 echo Diabetes mellitus, type 2 IDDM Degenerative disc disease Hx of cardiac pacemaker Implanted 2019 (tachy-monica syndrome), [employer] device Follows with Dr. Ramires Liver mass Pt denies but 05/17/20 PET scan shows 2.5 right hepatic lobe mass consistent with known hepatic metastasis Anemia h/o blood transfusions Infiltrating ductal carcinoma of left breast Initial Dx 2015- s/p lumpectomy, XRT and anastrozole Metastatic breast cancer 03/2020, follows with [facility] Peripheral neuropathy Hands (B/L CTS) Obstructive sleep apnea "Resolved" s/p gastric bypass (? retested) Hypercholesterolemia Gastroesophageal reflux disease controlled, stable per pt Chronic pain Cervical spine disease Full ROM per pt Surgical History H/O breast biopsy (05/29/23) Skin, left breast, 2 punch biopsies: In office procedure Dr. Alvarez - Fibrosing dermatitis. - See comment Status post revision of total replacement of right knee History of removal of Port-a-Cath (01/11/22) Infected port right anterior chest removed Dr. Shah S/P cardiac pacemaker procedure 2019 History of surgery Right knee TKA revision with spacer (07/11/2021): SAB at L3-4 (x2 attempts) + PNB at [facility]. No issues noted per post-op anesthesia progress note. History of carpal tunnel surgery of left wrist 06/2021 History of carpal tunnel surgery of right wrist Port-A-Cath in place hx - 05/2020 since removed d/t infection at port 12/2021 History of colonoscopy History of evacuation of hematoma Hematoma right breast and right chest 08/31/13 Dr. Shah H/O bilateral hip replacements Status post repair of ventral hernia History of total knee arthroplasty R/L Status post total abdominal hysterectomy and bilateral salpingo-oophorectomy Status post lumbar spine surgery for decompression of spinal cord Status post partial mastectomy of left breast Status post panniculectomy History of section x1 Status post laparoscopic cholecystectomy Status post gastric bypass for obesity Status post arthroscopy of left shoulder Status post appendectomy Family History Unknown Breast cancer Emphysema lung Mother Diabetes Heart disease Father Heart disease Other No family history of adverse response to anesthesia Denies family history of Ovarian cancer Prostate cancer Coronary heart disease Colorectal cancer Social History Smoking Status: Never smoker Tobacco Type: Cigarettes packs per day: 2; Second Hand Exposure: No; Do You Dip or Chew Tobacco: No; Hx Alcohol Use: No Hx Substance Use: No Preferred Language: Tristanian Communication Ability: Effective Visual Impairment: No Limitations Hearing Ability: Normal Community Educator Required: No Beliefs That Will Affect Care: None marital status: Current Living Situation: Spouse current occupational status: retired Feels Safe at Home: Yes Childhood Exposure to Second-Hand Smoke: Yes Diet: diabetic caffeine: Yes Dental Care, Regularly: No Physical Activity Frequency: 1-2 Times per Week Seatbelt Use: always Sunscreen Use: No Assistive Devices: Glasses and Walker Review of Systems Review of Systems: A 10 point review of system was obtained and unless otherwise stated here or in history of present illness are negative and noncontributory to chief complaint. Physical Exam Physical Exam: In General: In general is a 73-year-old female who is alert and oriented x 3 at the time my exam her only complaint is left-sided neck pain and being hungry. She is accompanied by her at the time of my exam. HEENT: Normocephalic atraumatic pupils are equal round and reactive to light bilaterally. No scleral icterus no conjunctival injection external auditory canals are patent septum is in the midline nose is without discharge oral mucosa is pink and moist without lesion. NECK: No carotid bruits. No JVD. Pain in the left neck region/cervical spine region with palpation. I did not do range of motion testing given the current situation with possible ligamentous injury. We have asked the nurse to place a soft collar as ordered. HEART: Regular rate and rhythm I do not appreciate any ectopy or rub. No murmur. -EKG is paced and unremarkable. LUNGS: Clear to auscultation bilaterally and anteriorly with no evidence of adventitious sounds/wheezes rales or rhonchi. ABDOMEN: Soft nontender, no rebound, no peritoneal signs, positive bowel sounds, no appreciable organomegaly. EXTREMITIES: Intact, no peripheral cyanosis, clubbing or edema. Bilateral total knee arthroplasty scars noted. The patient has a skin tear on her right forearm. Some mild active bleeding. Local wound care recommended. NEUROLOGICAL: Cranial nerves II through XII are grossly intact with no focal deficit elicited upon examination. No tremor. Results & Data Results & Data Vital Signs (Past 12 Hours) Vital Signs Temp Pulse Pulse Resp BP BP Pulse Ox 12/26/23 13:25 65 20 185/76 H 96 12/26/23 12:51 60 186/76 H 99 12/26/23 12:27 80 12/26/23 12:25 36.5 C 60 20 200/89 H 98 12/26/23 11:25 60 24 192/73 H 98 12/26/23 11:25 60 24 193/73 H 98 12/26/23 11:07 36.6 C 60 18 206/88 H 99 O2 Del Method 12/26/23 13:25 Room Air 12/26/23 12:51 Room Air 12/26/23 12:27 12/26/23 12:25 Room Air 12/26/23 11:25 Room Air 12/26/23 11:25 Room Air 12/26/23 11:07 Room Air Code Status & VTE Plan Code Status Full code. I personally discussed with patient. VTE Prophylaxis Plan VTE Prophylaxis will be ordered: Yes PG Care Time/CCT Total # of Minutes Spent Total Time Spent with Patient: Total time spent is greater than 50% in coordination of care (as documented) at patient's floor/unit and/or counseling patient: Coding Level of Care Code 34435 INT INP/OBS CARE 3/75MIN Diagnoses Cervical strain S16.1XXA Encounter type: initial encounter (1) Cervical strain Encounter type: initial encounter Qualified Code(s): S16.1XXA - Strain of muscle, fascia and tendon at neck level, initial encounter
--- NOTE | 2023-12-26 14:45 | Electrocardiogram Report ---
Test Reason : Blood Pressure : */* mmHG Vent. Rate : 60 BPM Atrial Rate : 441 BPM P-R Int : * ms QRS Dur : 152 ms QT Int : 430 ms P-R-T Axes : * -83 99 degrees QTcB Int : 430 ms Ventricular-paced rhythm Abnormal ECG When compared with ECG of 24-Oct-2023 21:17, No significant change was found Confirmed by Quinn Edmondson ([id number]) on 12/26/2023 2:45:13 PM Referred By: REFERRED SELF Confirmed By: Quinn Edmondson
[2023-12-26 15:06] LABS: Appearance Urine Clear (Clear); Bilirubin Urine 1+ (Negative); Blood Urine 2+ (Negative); Cast Urine Automated 0-2 /lpf (0-2); Color Urine Dark Yellow; Epithelial Cell Urine Auto 0-2 /hpf (0-2); Glucose Urine UA Negative (Negative); Ketones Urine 2+ (Negative); Leukocyte Esterase Urine 1+ (Negative); Nitrite Urine Positive (Negative); Protein Urine 1+ (Negative); RBC Urine Automated >20 /hpf (0-2); Specific Gravity Urine 1.041 (1.000-1.030); Urobilinogen Urine Negative (Negative)
[2023-12-26 15:15] LABS: Bacteria Urine Automated 1+ (None Seen)
--- NOTE | 2023-12-26 17:22 | Orthopedic Consultation ---
Date of Service December 26, 2023 Assessment & Plan (1) Cervical strain: (2) Degeneration of cervical intervertebral disc: History of Present Illness Reason for Consultation: Neck pain, edema anterior cervical spine seen on CT scan. Requesting Physician: . 73-year-old female with a history of metastatic breast carcinoma to the liver. Under active chemotherapy treatment, had chemotherapy a couple days ago and a blood transfusion with 2 units of packed red blood cells. She has had multiple falls with increasing left neck pain over the last few days. She presented the ER for further evaluation and treatment. In the emergency department she was found to have a white count of 12.3 hemoglobin of 11 and INR 1.3-she is on chronic Eliquis therapy. Creatinine unremarkable. Troponin was 14.7. CT of the chest was negative for traumatic injury. It did show trace pleural effusion. There was no pneumothorax or consolidations. There was multifocal hepatic metastatic disease noted. CT of the cervical spine was pertinent for no acute spine fracture or sublux station. However there was moderate paravertebral edema raising the possibility of a ligamentous injury. With severe multi focal facet arthrosis with moderate degenerative disc disease of the cervical spine. Patient was seen and examined, she commented to me that she had neck pain but was watching TV and an appropriate and answering questions. Her pain is mostly in her cervical spine paraspinal region, she does not note any new upper extremity symptomatology. She stated that she has had some chronic neck pain before, it is the same pain though slightly worsened. Exam reveals the patient to have some limited symptoms on range of motion, this collar was replaced, she has what I thought was relatively appropriate strength for elbow flexion extension shoulder abduction, wrist extension was also appropriate all these were in the 4+ to 5 out of 5 range. Her fructose loader strength was more in a 4 out of 5 range as was finger abduction. Pain with muscle activation did compromise some of her efforts. CT OF THE CERVICAL SPINE WITHOUT CONTRAST December 26, 2023 CLINICAL HISTORY: fall COMPARISON STUDY: Cervical spine CT October 17, 2023. MRI of the cervical spine November 11, 2023. FINDINGS: There is moderate prevertebral edema. Anterolisthesis of C4 and C5 with widening of the disc space is unchanged. This is chronic. There is severe multilevel facet arthrosis. There is moderate multilevel disc space narrowing. No cervical spine fractures are identified. There are degenerative changes at the C1-C2 articulation. IMPRESSION: 1. No acute cervical spine fracture or subluxation. 2. Moderate prevertebral edema. This raises the possibility of ligamentous injury. 3. Severe multilevel facet arthrosis and moderate degenerative disc disease within the cervical spine. MRI of the cervical spine is performed utilizing various T1 and T2 sequences in the axial and sagittal planes. IV contrast was administered for this examination November 11, 2023. Comparison: Comparison is made to CT cervical spine 10/17/2023 FINDINGS: The alignment is anatomical. Disks are normal in height and signal. C2-C3: Unremarkable. C3-C4: Facet arthropathy results in mild bilateral neuroforaminal stenosis. C4-C5: Facet arthropathy and posterior disc bulge result in mild canal stenosis and moderate neuroforaminal stenosis. C5-C6: Broad-based posterior disc bulge is seen. There is mild bilateral facet arthropathy resulting mild bilateral neuroforaminal stenosis. C6-C7: Unremarkable. C7-T1: Facet arthropathy results in severe bilateral neuroforaminal stenosis. The spinal ligaments are intact, without evidence of disruption or abnormal signal intensity. The spinal cord is normal in signal intensity and there is no evidence of cord contusion. There is no evidence of an extradural, intradural, extramedullary or intramedullary lesion. Visualized soft tissues are normal. Visualized brain parenchyma is normal. IMPRESSION: Multiple degenerative changes are seen with mild canal stenosis and severe bilateral neural foraminal stenosis. Review of the CT scan from December 25 and the MRI from November 10 was performed, is my separate interpretation, the CT scan reveals no evidence of any kind of fracture, of note is that there is facet autofusion at C5-6, facet degeneration throughout. C4-5 though has some disc bulge causing at least moderate canal stenosis and foraminal stenosis, additional degenerative changes at C7-T1. There is some limited anterior edema in the mid cervical spine. Impression: Status post fall with exacerbation of prior chronic neck pain, limited anterior edema around C4-5 with no changes in the overall alignment when compared to MRI from November 10. Plan: I discussed the findings with the patient, I related to her that we will maintain a soft collar for now, this can be removed for dressing and eating, but have this collar on when mobilizing or ambulation. Follow-up should be performed in the next week or 2 with repeat radiographs, new MRI is only needed if there is significant changes. Mobilize with physical therapy. Allergies Allergy/AdvReac Type Severity Reaction Status Date / Time metformin AdvReac Intermediate RESTLESSNES Verified 12/26/23 14:11 S Home Medications Medication Instructions Recorded Confirmed Type blood sugar diagnostic (OneTouch #100 ea 10/07/22 12/08/23 Rx Ultra Test strips) cyanocobalamin (vitamin B-12) 1,000 mcg IM MONTHLY #1 ea 10/07/22 12/26/23 Rx 1,000 mcg/mL injection kit Protom InternationalTouch Delica Plus Lancet 33 #300 ea 01/09/23 12/08/23 Rx gauge (lancets) albuterol sulfate 90 mcg/actuation 2 puff inhalation Q4 PRN Shortness 02/24/23 12/26/23 Rx aerosol inhaler Of Breath Or Wheezing #8.5 grams insulin glargine 100 unit/mL 15 unit subcut QPM 02/28/23 12/26/23 History subcutaneous solution (Lantus U-100 Insulin) meclizine 25 mg tablet 25 mg PO DAILY PRN 02/28/23 12/26/23 History DIZZINESS/VERTIGO pen needle, diabetic 32 gauge x #100 ea 06/12/23 12/08/23 Rx 5/32" (Easy Comfort Pen [place]) levothyroxine 25 mcg tablet 37.5 mcg (1.5 x 25 mcg) PO QAM 07/30/23 12/26/23 Rx #135 tabs apixaban 5 mg tablet (Eliquis) 5 mg PO BID #60 tabs 09/16/23 12/26/23 Rx duloxetine 60 mg capsule,delayed 60 mg PO QAM 09/26/23 12/26/23 History release (Cymbalta) pantoprazole 40 mg tablet,delayed 40 mg PO QAM #90 tabs 10/07/23 12/26/23 Rx release (Protonix) atorvastatin 40 mg tablet 40 mg PO HS #90 tabs 10/14/23 12/26/23 Rx losartan 25 mg tablet 25 mg PO QAM 10/17/23 12/26/23 History oxycodone 10 mg tablet 10 mg PO UD PRN Pain 10/17/23 12/26/23 History phenazopyridine 95 mg tablet 95 mg PO TID PRN Urinary Pain 10/17/23 12/26/23 History potassium chloride 20 mEq 20 meq PO QAM 10/17/23 12/26/23 History tablet,extended release diltiazem HCl 360 mg capsule,24 360 mg PO QAM #90 caps 12/16/23 12/26/23 Rx hr,extended release (Tiazac) furosemide 20 mg tablet 20 mg PO DAILY #30 tabs 12/18/23 12/26/23 Rx nystatin 100,000 unit/gram topical 1 applic topical DAILY #30 grams 12/18/23 12/26/23 Rx powder Past Med/Surg History Problem List (Updated 12/26/23 @ 17:36 by Son Davidson MD) Degeneration of cervical intervertebral disc Weakness (Acute) Cervical strain (Acute) Pleural effusion (Acute) Bilateral edema of lower extremity (Acute) Frequent falls (Acute) Anticoagulant long-term use (Acute) Lymphedema Palliative care by specialist Anemia (Acute) Bilateral nephrolithiasis Hypokalemia Urinary tract infection (Acute) Nausea & vomiting (Acute) Acute dehydration (Acute) Metastases to the liver (Acute) Abdominal pain (Acute) Breast skin changes Microalbuminuria Hypothyroidism Pain due to interstitial cystitis Chronic diarrhea Recurrent UTI (urinary tract infection) Burning with urination MRSA (methicillin resistant staph aureus) culture positive (Acute) Diabetes type 2, controlled Chronic GERD Carpal tunnel syndrome on both sides with surgical intervention Anemia (Acute) Vitamin D deficiency Carpal tunnel syndrome of right wrist Leukopenia (Acute) Memory loss Metastatic breast cancer Anxiety Diabetic neuropathy pt denies Hyperglobulinemia Aortic valve stenosis Status post placement of cardiac pacemaker Anticoagulant long-term use Tachy-monica syndrome Atrial fibrillation follows with Dr Ramires Vitamin B12 deficiency (Chronic) Positive ESTEPHANIA (antinuclear antibody) (Chronic) Lumbar radiculopathy (Chronic) Lipodystrophy (Chronic) Gait disturbance (Chronic) Depression Constipation (Chronic) Arthritis (Chronic) Medical History Human metapneumovirus pneumonia Infected venous access port 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 History of blood transfusion Closed fracture of left distal fibula Breast cancer (12/18/15) "Abnormal left breast mammogram Status post core needle biopsy 12/18/2015 revealing infiltrating ductal carcinoma Estrogen receptor positive, progesterone receptor positive, HER-2/po negative Status post left needle localization lumpectomy and sentinel lymph node biopsy 01/04/2016 Stage pT1c pN0M0 Status post completion of radiation therapy 02/13/2016 received 3850 cGy utilizing accelerated partial breast irradiation." On 01/17/16 14:10 Deidre Orta wrote "Abnormal left breast mammogram Status post core needle biopsy 12/18/2015 revealing infiltrating ductal carcinoma Estrogen receptor positive, progesterone receptor positive, HER-2/po negative Status post left needle localization lumpectomy and sentinel lymph node biopsy 01/04/2016 Stage pT1c pN0M0" Generalized weakness Lung nodules monitoring Urinary frequency Pacemaker 2019, follows with Dr Ramires. checks Q6 months. Neuropathy Aortic stenosis Mild aortic stenosis (MERLENE 1.6cm2; MG 7.8mmHg) per 12/2019 echo Diabetes mellitus, type 2 IDDM Degenerative disc disease Hx of cardiac pacemaker Implanted 2019 (tachy-monica syndrome), [employer] device Follows with Dr. Ramires Liver mass Pt denies but 05/17/20 PET scan shows 2.5 right hepatic lobe mass consistent with known hepatic metastasis Anemia h/o blood transfusions Infiltrating ductal carcinoma of left breast Initial Dx 2015- s/p lumpectomy, XRT and anastrozole Metastatic breast cancer 03/2020, follows with [facility] Peripheral neuropathy Hands (B/L CTS) Obstructive sleep apnea "Resolved" s/p gastric bypass (? retested) Hypercholesterolemia Gastroesophageal reflux disease controlled, stable per pt Chronic pain Cervical spine disease Full ROM per pt Surgical History H/O breast biopsy (05/29/23) Skin, left breast, 2 punch biopsies: In office procedure Dr. Alvarez - Fibrosing dermatitis. - See comment Status post revision of total replacement of right knee History of removal of Port-a-Cath (01/11/22) Infected port right anterior chest removed Dr. Shah S/P cardiac pacemaker procedure 2019 History of surgery Right knee TKA revision with spacer (07/11/2021): SAB at L3-4 (x2 attempts) + PNB at [facility]. No issues noted per post-op anesthesia progress note. History of carpal tunnel surgery of left wrist 06/2021 History of carpal tunnel surgery of right wrist Port-A-Cath in place hx - 05/2020 since removed d/t infection at port 12/2021 History of colonoscopy History of evacuation of hematoma Hematoma right breast and right chest 08/31/13 Dr. Shah H/O bilateral hip replacements Status post repair of ventral hernia History of total knee arthroplasty R/L Status post total abdominal hysterectomy and bilateral salpingo-oophorectomy Status post lumbar spine surgery for decompression of spinal cord Status post partial mastectomy of left breast Status post panniculectomy History of section x1 Status post laparoscopic cholecystectomy Status post gastric bypass for obesity Status post arthroscopy of left shoulder Status post appendectomy Family History Unknown Breast cancer Emphysema lung Mother Diabetes Heart disease Father Heart disease Other No family history of adverse response to anesthesia Denies family history of Ovarian cancer Prostate cancer Coronary heart disease Colorectal cancer Social History Smoking Status: Never smoker Tobacco Type: Cigarettes packs per day: 2; Second Hand Exposure: No; Do You Dip or Chew Tobacco: No; Hx Alcohol Use: No Hx Substance Use: No Preferred Language: Citizen Of [place] Communication Ability: Effective Visual Impairment: No Limitations Hearing Ability: Normal 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 Physical Exam . Results & Data Results & Data Laboratory Results . Diagnostic Findings . PG Care Time/CCT Total # of Minutes Spent Total Time Spent with Patient: Total time spent is greater than 50% in coordination of care (as documented) at patient's floor/unit and/or counseling patient: Coding Level of Care Code 42228 IN/OBS CONSULT LVL 3,45M Diagnoses Cervical strain S16.1XXA Encounter type: initial encounter Degeneration of cervical intervertebral disc M50.30 (1) Cervical strain Encounter type: initial encounter Qualified Code(s): S16.1XXA - Strain of muscle, fascia and tendon at neck level, initial encounter
[2023-12-26] MEDS: INSULIN ASPART PER UNIT CHARGE SC SCH (17:43)
[2023-12-26] MEDS ORDERED: ALBUTEROL HFA 8 GM INHALER INH PRN (18:20)
[2023-12-26] MEDS: oxyCODONE HCL IR 5 MG TAB (IMMEDIATE RELEASE) PO PRN (18:47)
[2023-12-26] MEDS: cefTRIAXone SODIUM 1,000 MG/50 ML BAG IV SCH (20:20)
[2023-12-26] MEDS: ACETAMINOPHEN 325 MG TAB PO PRN (20:56)
[2023-12-26] MEDS: LANTUS PER UNIT CHARGE SQ SCH (20:56)
[2023-12-26] MEDS: ATORVASTATIN 40 MG TAB PO SCH (20:56)
[2023-12-26] MEDS: HYDROmorphone INJ 0.5 MG/0.5 ML SYR IV STA ×2 (21:19→22:43)
[2023-12-27] MEDS: oxyCODONE HCL IR 5 MG TAB (IMMEDIATE RELEASE) PO STA ×2 (01:04→04:40)
[2023-12-27] MEDS: LEVOTHYROXINE SODIUM 25 MCG TABLET PO SCH (04:41)
[2023-12-27 07:29] LABS: Basophils # (auto) 0.03 K/uL (0.00-0.20); Basophils % (auto) 0.4 %; Eosinophils # (auto) 0.18 K/uL (0.00-0.50); Eosinophils % (auto) 2.4 %; Hematocrit (blood only) 29.5 % (37.0-47.0); Hemoglobin 9.5 g/dl (12.0-16.0); Immature Granulocytes # (auto) 0.03 K/uL (0.01-0.20); Immature Granulocytes % (auto) 0.4 %; Lymphocytes # (auto) 0.77 K/uL (1.20-3.40); Lymphocytes % (auto) 10.1 %; Mean Corpuscular Hemoglobin 29.1 pg (25.0-34.0); Mean Corpuscular Hgb Conc 32.2 g/dL (32.0-36.0); Mean Corpuscular Volume 90.5 fL (80.0-100.0); Mean Platelet Volume 11.5 fL (9.4-12.4); Monocytes # (auto) 1.33 K/uL (0.11-0.59); Monocytes % (auto) 17.4 %; Neutrophils # (auto) 5.29 K/uL (1.40-6.50); Neutrophils % (auto) 69.3 %; Platelet Count 145 K/uL (130-400); RDW Coefficient of Variation 18.9 % (11.5-14.5); RDW Standard Deviation 60.8 fL (36.4-46.3); Red Blood Count 3.26 M/uL (4.20-5.40); White Blood Count 7.63 K/ul (4.8-10.8)
[2023-12-27 08:07] LABS: Estimated Average Glucose 134 mg/dl; Hemoglobin A1C 6.3 % (4.5-5.6)
[2023-12-27 08:23] LABS: Albumin Globulin Ratio 1.3 (0.9-2); Albumin Level 3.1 gm/dl (3.4-5.0); Bilirubin,Total 0.5 mg/dl (0.2-1.0); Calcium 8.1 mg/dl (8.6-10.3); Creatinine Clr Calc Pharmacy 104.1 ml/min; Est GFR (African American) 117.1 ml/min; Est GFR (Non-African American) 101.1 ml/min; Globulin 2.3 gm/dl (2.5-4.0); Magnesium 1.9 mg/dl (1.7-2.4); Potassium 3.8 mmol/L (3.5-5.1); Total Protein 5.4 gm/dl (6.0-8.3)
[2023-12-27] MEDS: LOSARTAN POTASSIUM 25 MG TAB PO SCH (08:23)
[2023-12-27] MEDS: PANTOprazole 40 MG TAB PO SCH (08:23)
[2023-12-27] MEDS: dilTIAZem HCL 180 MG CAPCR PO SCH (08:24)
[2023-12-27] MEDS: NYSTATIN POWDER 15GM BTL EXT SCH (08:24)
[2023-12-27] MEDS: DULoxetine HCL 60 MG CAP PO SCH (08:24)
[2023-12-27] MEDS: POTASSIUM CHLORIDE CRTAB 20 MEQ TABCR PO SCH (08:26)
[2023-12-27 08:37] LABS: Thyroid Stimulating Hormone 8.73 uIu/ml (0.300-4.500)
[2023-12-27 09:12] LABS: T4 Free Thyroxine 1.08 ng/dl (0.61-1.60)
--- NOTE | 2023-12-27 09:28 | XCELERA ---
[id number]
[2023-12-27] MEDS: oxyCODONE HCL IR 5 MG TAB (IMMEDIATE RELEASE) PO PRN (10:47)
--- NOTE | 2023-12-27 13:58 | Hospitalist Progress Note ---
Date of Service December 27, 2023 Assessment & Plan (1) Cervical strain: Plan: Assessment: 1. Neck pain with probable strain sprain with possible ligamentous injury with cervical edema on CT. Orthopedic spine surgery consulted. Soft collar. Follow-up with orthopedics in the next week or 2. Added oxycodone 10 mg as needed for pain control. I am suspicious of a drug-seeking behavior. I know this patient from a previous hospitalization. Also noted that she is tearful when she is talking to me but when she is on the phone, she is able to provide clear instructions without grimacing. 2. Debility with frequent falls at home. PT and OT is consulted. Patient is interested in possible inpatient rehab. Case management consulted. 3. Paroxysmal atrial fibrillation. Paced rhythm on EKG today. On Eliquis therapy this is going to be held due to the frequent falls. Decision will need to be made prior to discharge whether to continue or discontinue Eliquis due to high fall risk. 4. Abnormal troponin mildly elevated at 14.7. No hernandez chest pain. Repeat troponin flat. EKG is paced. Echocardiogram reviewed, no changes. Discontinue cardiac monitor technician. 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 5. Breast carcinoma with metastatic disease to the liver. Under active treatment. 6. Acute UTI. Urinalysis was suggestive. Patient was started on Rocephin. Will continue for now. Urine culture is unreliable. Leukocytosis improved 8. Generalized weakness. Possibly related to UTI. Continue treatment for UTI. PT/OT consulted 9. Mild hypocalcemia. 10. History of diabetes mellitus. A1c 6.3. Increase Lantus to home dose of 15 units every afternoon 10. History of diabetic neuropathy. 11. Anemia. Stable. Received 2 units of packed red blood cells prior to admission as an outpatient. 12. GERD. Continue home meds. Yet to be reconciled. 13. History of aortic stenosis. Echocardiograms been ordered. 14. History of tachybradycardia syndrome status post pacemaker placement. Appears to be pacemaker dependent today on EKG. Plan Full code Admission and Anticipated Discharge Date Admission Date: December 26, 2023 Subjective Patient is complaining of pain. Review of Systems Review of Systems: All systems reviewed & are unremarkable except as noted in Subjective Physical Exam Physical Exam: General: Awake, conversant. Patient gets tearful about her pain but is able to talk to someone on the phone and give them clear directions without any grimacing. Heart: S1, S2/regular rate and rhythm, no murmur rubs or gallops Lungs: Clear to auscultation bilaterally. Normal effort Abdomen: Soft/nontender/nondistended. No hepatosplenomegaly Extremities: No clubbing/cyanosis. No edema Behavior: Appropriate, cooperative Results & Data Results & Data Vital Signs (Past 12 Hours) Vital Signs Temp Pulse Resp BP Pulse Ox O2 Del Method 12/27/23 11:28 36.8 C 63 18 161/73 H Room Air 12/27/23 09:00 Room Air 12/27/23 07:20 36.9 C 60 16 167/74 H 96 Room Air 12/27/23 03:12 36.7 C 65 20 157/75 H 98 Room Air Laboratory Results Abnormal lab results 12/26/23 12/26/23 12/26/23 Range/Units 14:24 16:21 16:30 RBC (4.20-5.40) M/uL Hgb (12.0-16.0) g/dl Hct (37.0-47.0) % RDW Std Deviation (36.4-46.3) fL RDW Coeff of Thompson (11.5-14.5) % Lymph # (Auto) (1.20-3.40) K/uL [place] # (Auto) (0.11-0.59) K/uL Creatinine (0.6-1.2) mg/dl BUN/Creatinine Ratio (10-20) Glucose (70-99(Fasting)) mg/dl POC Glucose 242 H (70-99) mg/dl Hemoglobin A1c (4.5-5.6) % Calcium (8.6-10.3) mg/dl Troponin I High Sens 15.5 H (0-14) pg/ml Total Protein (6.0-8.3) gm/dl Albumin (3.4-5.0) gm/dl Globulin (2.5-4.0) gm/dl TSH (0.300-4.500) uIu/ml Ur Specific Huffman 1.041 H (1.000-1.030) Urine Protein 1+ H (Negative) Urine Ketones 2+ H (Negative) Urine Blood 2+ H (Negative) Urine Nitrite Positive A (Negative) Urine Bilirubin 1+ H (Negative) Ur Leukocyte Esterase 1+ H (Negative) Urine WBC (Auto) 6-10 H (0-5) /hpf Urine RBC (Auto) >20 H (0-2) /hpf Urine Bacteria (Auto) 1+ H (None Seen) 12/26/23 12/27/23 12/27/23 Range/Units 20:37 07:00 07:54 RBC 3.26 L (4.20-5.40) M/uL Hgb 9.5 L (12.0-16.0) g/dl Hct 29.5 L (37.0-47.0) % RDW Std Deviation 60.8 H (36.4-46.3) fL RDW Coeff of Thompson 18.9 H (11.5-14.5) % Lymph # (Auto) 0.77 L (1.20-3.40) K/uL [place] # (Auto) 1.33 H (0.11-0.59) K/uL Creatinine 0.41 L (0.6-1.2) mg/dl BUN/Creatinine Ratio 39.0 H (10-20) Glucose 140 H (70-99(Fasting)) mg/dl POC Glucose 244 H 141 H (70-99) mg/dl Hemoglobin A1c 6.3 H (4.5-5.6) % Calcium 8.1 L (8.6-10.3) mg/dl Troponin I High Sens (0-14) pg/ml Total Protein 5.4 L (6.0-8.3) gm/dl Albumin 3.1 L (3.4-5.0) gm/dl Globulin 2.3 L (2.5-4.0) gm/dl TSH 8.730 H (0.300-4.500) uIu/ml Ur Specific Huffman (1.000-1.030) Urine Protein (Negative) Urine Ketones (Negative) Urine Blood (Negative) Urine Nitrite (Negative) Urine Bilirubin (Negative) Ur Leukocyte Esterase (Negative) Urine WBC (Auto) (0-5) /hpf Urine RBC (Auto) (0-2) /hpf Urine Bacteria (Auto) (None Seen) 12/27/23 12/27/23 Range/Units 11:32 11:33 RBC (4.20-5.40) M/uL Hgb (12.0-16.0) g/dl Hct (37.0-47.0) % RDW Std Deviation (36.4-46.3) fL RDW Coeff of Thompson (11.5-14.5) % Lymph # (Auto) (1.20-3.40) K/uL [place] # (Auto) (0.11-0.59) K/uL Creatinine (0.6-1.2) mg/dl BUN/Creatinine Ratio (10-20) Glucose (70-99(Fasting)) mg/dl POC Glucose 340 H* 382 H* (70-99) mg/dl Hemoglobin A1c (4.5-5.6) % Calcium (8.6-10.3) mg/dl Troponin I High Sens (0-14) pg/ml Total Protein (6.0-8.3) gm/dl Albumin (3.4-5.0) gm/dl Globulin (2.5-4.0) gm/dl TSH (0.300-4.500) uIu/ml Ur Specific Huffman (1.000-1.030) Urine Protein (Negative) Urine Ketones (Negative) Urine Blood (Negative) Urine Nitrite (Negative) Urine Bilirubin (Negative) Ur Leukocyte Esterase (Negative) Urine WBC (Auto) (0-5) /hpf Urine RBC (Auto) (0-2) /hpf Urine Bacteria (Auto) (None Seen) PG Care Time/CCT Total # of Minutes Spent Total Time Spent with Patient: Total time spent is greater than 50% in coordination of care (as documented) at patient's floor/unit and/or counseling patient: Coding Level of Care Code 43787 SUB INP/OBS CARE 2/35MIN Diagnoses Cervical strain S16.1XXA Encounter type: initial encounter (1) Cervical strain Encounter type: initial encounter Qualified Code(s): S16.1XXA - Strain of muscle, fascia and tendon at neck level, initial encounter
[2023-12-27] MEDS: HEPARIN 100 UNIT/ML 5ML FLUSH FLUSH PRN (19:06)
[2023-12-27] MEDS: LANTUS PER UNIT CHARGE SQ SCH (21:24)
[2023-12-27] MEDS: MELATONIN 3 MG TAB PO PRN (21:24)
--- NOTE | 2023-12-28 13:26 | Hospitalist Progress Note ---
Date of Service December 28, 2023 Assessment & Plan (1) Cervical strain: Plan: Assessment: 1. Neck pain with probable strain sprain with possible ligamentous injury with cervical edema on CT. Orthopedic spine surgery consulted. Soft collar. Follow-up with orthopedics in the next week or 2. Oxycodone 10 mg has been discontinued. Back on usual dose of oxycodone 5 mg. I am suspicious of a drug- seeking behavior. I know this patient from a previous hospitalization. Also noted that she was tearful when she was talking to me but when she was on the phone, she was was able to provide clear instructions without grimacing. 2. Debility with frequent falls at home. PT and OT is consulted. Patient is interested in possible inpatient rehab. Case management consulted. 3. Paroxysmal atrial fibrillation. Paced rhythm on EKG today. On Eliquis therapy this is going to be held due to the frequent falls. Decision will need to be made prior to discharge whether to continue or discontinue Eliquis due to high fall risk. 4. Abnormal troponin mildly elevated at 14.7. No hernandez chest pain. Repeat troponin flat. EKG is paced. Echocardiogram reviewed, no changes. Discontinue training manager. 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 5. Breast carcinoma with metastatic disease to the liver. Under active treatment. 6. Acute UTI. Urinalysis was suggestive. Patient was started on Rocephin. Will continue for now. Urine culture is unreliable. Leukocytosis improved 8. Generalized weakness. Possibly related to UTI. Continue treatment for UTI. PT/OT consulted 9. Mild hypocalcemia. 10. History of diabetes mellitus. A1c 6.3. Increase Lantus to home dose of 15 units every afternoon 10. History of diabetic neuropathy. 11. Anemia. Stable. Received 2 units of packed red blood cells prior to admission as an outpatient. 12. GERD. Continue home meds. Yet to be reconciled. 13. History of aortic stenosis. Echocardiograms been ordered. 14. History of tachybradycardia syndrome status post pacemaker placement. Appears to be pacemaker dependent on EKG. 15. Hypertension. Blood pressure elevated most likely related to agitation. Pain seems to be well-controlled today. Had a conversation with the patient along with the nursing staff to have her issues resolved. She was explained that her agitation is not helping her blood pressure. Plan Full code Admission and Anticipated Discharge Date Admission Date: December 26, 2023 Subjective Per nurse, the patient has been getting herself agitated with small matters. She does not appear to be in severe pain today. Physical Exam Physical Exam: General: Awake, conversant. Not tearful today. Heart: S1, S2/regular rate and rhythm, no murmur rubs or gallops Lungs: Clear to auscultation bilaterally. Normal effort Abdomen: Soft/nontender/nondistended. No hepatosplenomegaly Extremities: No clubbing/cyanosis. No edema Behavior: Appropriate, cooperative Results & Data Results & Data Vital Signs (Past 12 Hours) Vital Signs Temp Pulse Resp BP Pulse Ox O2 Del Method 12/28/23 11:55 151/68 H 12/28/23 09:20 Room Air 12/28/23 08:48 64 12/28/23 06:35 36.8 C 59 L 20 173/77 H 96 Room Air PG Care Time/CCT Total # of Minutes Spent Total Time Spent with Patient: Total time spent is greater than 50% in coordination of care (as documented) at patient's floor/unit and/or counseling patient: Coding Level of Care Code 44215 SUB INP/OBS CARE 2/35MIN Diagnoses Cervical strain S16.1XXA Encounter type: initial encounter (1) Cervical strain Encounter type: initial encounter Qualified Code(s): S16.1XXA - Strain of muscle, fascia and tendon at neck level, initial encounter
[2023-12-29] MEDS: oxyCODONE HCL 10 MG TABCR (OxyCONTIN) PO SCH (08:40)
[2023-12-29] MEDS: oxyCODONE HCL IR 5 MG TAB (IMMEDIATE RELEASE) PO PRN (11:38)
[2023-12-29] MEDS: DOCUSATE SODIUM 100 MG CAP PO SCH (11:39)
[2023-12-29] MEDS: POLYETHYLENE (MIRALAX) 17 GM PACK PO SCH (11:39)
--- NOTE | 2023-12-29 15:39 | Hospitalist Progress Note ---
Date of Service December 29, 2023 Assessment & Plan (1) Cervical strain: Plan: Assessment: 1. Neck pain with probable strain sprain with possible ligamentous injury with cervical edema on CT. Orthopedic spine surgery consulted. Soft collar. Follow-up with orthopedics in the next week or 2. Patient has been put on her usual regimen of OxyContin 15 mg twice daily and oxycodone 10 mg p.o. every 6 as needed. I am suspicious of a drug-seeking behavior. I know this patient from a previous hospitalization. Also noted that she was tearful when she was talking to me but when she was on the phone, she was was able to provide clear instructions without grimacing. Next 2. Suicidal comments. Patient has made some suicidal comments. Psychiatry consulted. Denies suicidal ideation at this time. 2. Debility with frequent falls at home. PT and OT is consulted. Patient is interested in possible inpatient rehab. Case management consulted. 3. Paroxysmal atrial fibrillation. Paced rhythm on EKG today. On Eliquis therapy this is going to be held due to the frequent falls. Decision will need to be made prior to discharge whether to continue or discontinue Eliquis due to high fall risk. 4. Abnormal troponin mildly elevated at 14.7. No hernandez chest pain. Repeat troponin flat. EKG is paced. Echocardiogram reviewed, no changes. 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 5. Breast carcinoma with metastatic disease to the liver. Under active treatment. 6. Acute UTI. Urinalysis was suggestive. Patient was started on Rocephin. Will continue for now. Urine culture is unreliable. Leukocytosis improved 8. Generalized weakness. Possibly related to UTI. Continue treatment for UTI. PT/OT consulted 9. Mild hypocalcemia. 10. History of diabetes mellitus. A1c 6.3. Increase Lantus to home dose of 15 units every afternoon 10. History of diabetic neuropathy. 11. Anemia. Stable. Received 2 units of packed red blood cells prior to admission as an outpatient. 12. GERD. Continue home meds. Yet to be reconciled. 13. History of aortic stenosis. Echocardiograms been ordered. 14. History of tachybradycardia syndrome status post pacemaker placement. Appears to be pacemaker dependent on EKG. 15. Hypertension. Blood pressure elevated most likely related to agitation and pain. Control pain with home regimen. Plan Full code Admission and Anticipated Discharge Date Admission Date: December 26, 2023 Subjective Patient complains of pain all over. She wants to be put on her home regimen. I was informed that the patient took a butter knife to her chest and portrayed stabbing herself, stating "I would rather ". Denies suicidal ideation at this time. Review of Systems Review of Systems: All systems reviewed & are unremarkable except as noted in Subjective Physical Exam Physical Exam: General: Awake, conversant. Heart: S1, S2/regular rate and rhythm, no murmur rubs or gallops Lungs: Clear to auscultation bilaterally. Normal effort Abdomen: Soft/nontender/nondistended. No hepatosplenomegaly Extremities: No clubbing/cyanosis. No edema Behavior: Appropriate, cooperative but has made hostile remarks to the hospital staff. Results & Data Results & Data Vital Signs (Past 12 Hours) Vital Signs Temp Pulse Pulse Resp BP Pulse Ox O2 Del Method 12/29/23 11:42 36.9 C 60 14 174/77 H 98 Room Air 12/29/23 07:53 35.5 C L 60 15 179/80 H 94 Room Air Laboratory Results Abnormal lab results 12/28/23 12/28/23 12/29/23 Range/Units 16:59 19:37 07:12 POC Glucose 125 H 137 H 128 H (70-99) mg/dl 12/29/23 Range/Units 11:30 POC Glucose 158 H (70-99) mg/dl PG Care Time/CCT Total # of Minutes Spent Total Time Spent with Patient: Total time spent is greater than 50% in coordination of care (as documented) at patient's floor/unit and/or counseling patient: Coding Level of Care Code 48927 SUB INP/OBS CARE 2/35MIN Diagnoses Cervical strain S16.1XXA Encounter type: initial encounter (1) Cervical strain Encounter type: initial encounter Qualified Code(s): S16.1XXA - Strain of muscle, fascia and tendon at neck level, initial encounter
[2023-12-29] MEDS: oxyCODONE HCL 15 MG TABCR (OxyCONTIN) PO SCH (20:55)
[2023-12-30] MEDS: FUROSEMIDE 20 MG TAB PO SCH (10:31)
[2023-12-30] MEDS: DOXAZosin MESYLATE TAB 2 MG TAB PO SCH (12:59)
--- NOTE | 2023-12-30 15:58 | Hospitalist Progress Note ---
Date of Service December 30, 2023 Assessment & Plan (1) Cervical strain: Plan: Assessment: 1. Neck pain with probable strain sprain with possible ligamentous injury with cervical edema on CT. Orthopedic spine surgery consulted. Soft collar. Follow-up with orthopedics in the next week or 2. Spoke to Dr. De Luna who had been prescribing her oxycodone 10 mg p.o. every 4 to 6 hours as needed. No OxyContin was refilled. OxyContin was discontinued. 2. Suicidal comments. Patient has made some suicidal comments. Psychiatry consulted. Denies suicidal ideation at this time. 2. Debility with frequent falls at home. PT and OT is consulted. Patient is interested in possible inpatient rehab. Case management consulted. 3. Paroxysmal atrial fibrillation. Paced rhythm on EKG today. On Eliquis therapy this is going to be held due to the frequent falls. Decision will need to be made prior to discharge whether to continue or discontinue Eliquis due to high fall risk. 4. Abnormal troponin mildly elevated at 14.7. No hernandez chest pain. Repeat troponin flat. EKG is paced. Echocardiogram reviewed, no changes. Discontinue surveillance monitor. 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 5. Breast carcinoma with metastatic disease to the liver. Under active treatment. 6. Acute UTI. Urinalysis was suggestive. Patient was started on Rocephin. Will continue for now. Urine culture is unreliable. Leukocytosis improved 8. Generalized weakness. Possibly related to UTI. Continue treatment for UTI. PT/OT consulted 9. Mild hypocalcemia. 10. History of diabetes mellitus. A1c 6.3. Increase Lantus to home dose of 15 units every afternoon 10. History of diabetic neuropathy. 11. Anemia. Stable. Received 2 units of packed red blood cells prior to admission as an outpatient. 12. GERD. Continue home meds. Yet to be reconciled. 13. History of aortic stenosis. Echocardiograms been ordered. 14. History of tachybradycardia syndrome status post pacemaker placement. Appears to be pacemaker dependent on EKG. 15. Hypertension. Blood pressure elevated most likely related to agitation and pain. Control pain with home regimen. On Cardizem 360, losartan 25. Added Cardura 2 mg. Blood pressure much improved since Plan Full code Likely discharge tomorrow if blood pressure improved. Admission and Anticipated Discharge Date Admission Date: December 26, 2023 Subjective Patient says that her pain is fairly controlled. Spoke to Dr. De Luna who prescribed her oxycodone 10 mg p.o. every 4-6 hours as needed. The OxyContin was not refilled. Discontinued OxyContin. Noted that her blood pressure was elevated this morning. Review of Systems Review of Systems: All systems reviewed & are unremarkable except as noted in Subjective Physical Exam Physical Exam: General: Awake, conversant. Heart: S1, S2/regular rate and rhythm, no murmur rubs or gallops Lungs: Clear to auscultation bilaterally. Normal effort Abdomen: Soft/nontender/nondistended. No hepatosplenomegaly Extremities: No clubbing/cyanosis. No edema Behavior: Appropriate, cooperative Results & Data Results & Data Vital Signs (Past 12 Hours) Vital Signs Temp Pulse Resp BP Pulse Ox O2 Del Method 12/30/23 15:40 37 C 76 16 138/66 96 Room Air 12/30/23 13:00 36.4 C L 73 20 171/82 H 96 Room Air 12/30/23 07:13 37.2 C 73 16 190/72 H 95 Room Air PG Care Time/CCT Total # of Minutes Spent Total Time Spent with Patient: Total time spent is greater than 50% in coordination of care (as documented) at patient's floor/unit and/or counseling patient: Coding Level of Care Code 11019 SUB INP/OBS CARE 2/35MIN Diagnoses Cervical strain S16.1XXA Encounter type: initial encounter (1) Cervical strain Encounter type: initial encounter Qualified Code(s): S16.1XXA - Strain of muscle, fascia and tendon at neck level, initial encounter
[2023-12-30] MEDS: oxyCODONE HCL IR 5 MG TAB (IMMEDIATE RELEASE) PO PRN (16:16)
[2023-12-30] MEDS: PHENAZOPYRIDINE HCL 100 MG TAB PO PRN (20:36)
--- NOTE | 2023-12-31 13:38 | Hospitalist Progress Note ---
Date of Service December 31, 2023 Assessment & Plan (1) Cervical strain: Plan: Assessment: 1. Neck pain with probable strain sprain with possible ligamentous injury with cervical edema on CT. Orthopedic spine surgery consulted. Soft collar. Follow-up with orthopedics in the next week or 2. Spoke to Dr. De Luna who had been prescribing her oxycodone 10 mg p.o. every 4 to 6 hours as needed. No OxyContin was refilled. OxyContin was discontinued. During this hospital, the patient has exhibited some drug-seeking behavior. 2. Suicidal comments. Patient has made some suicidal comments. Psychiatry consulted. Denies suicidal ideation at this time. 2. Debility with frequent falls at home. PT and OT is consulted. Patient is interested in possible inpatient rehab. Case management consulted. 3. Paroxysmal atrial fibrillation. Paced rhythm on EKG today. On Eliquis therapy this is going to be held due to the frequent falls. Eliquis will be resumed as she is being discharged to a relatively safe set up at a rehab unit.. Decision will need to be made by her PCP whether to continue or discontinue Eliquis due to high fall risk. 4. Abnormal troponin mildly elevated at 14.7. No hernandez chest pain. Repeat troponin flat. EKG is paced. Echocardiogram reviewed, no changes. 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 5. Breast carcinoma with metastatic disease to the liver. Under active treatment. 6. Acute UTI. Urinalysis was suggestive. Patient was started on Rocephin. Will continue for now. Urine culture is unreliable. Leukocytosis improved 8. Generalized weakness. Possibly related to UTI. Continue treatment for UTI. PT/OT consulted 9. Mild hypocalcemia. 10. History of diabetes mellitus. A1c 6.3. Increase Lantus to home dose of 15 units every afternoon 10. History of diabetic neuropathy. 11. Anemia. Stable. Received 2 units of packed red blood cells prior to admission as an outpatient. 12. GERD. Continue home meds. Yet to be reconciled. 13. History of aortic stenosis. Echocardiograms been ordered. 14. History of tachybradycardia syndrome status post pacemaker placement. Appears to be pacemaker dependent on EKG. 15. Hypertension. Blood pressure better controlled on Cardizem 360, losartan 25, added Cardura 2 mg. Plan Full code Likely discharge tomorrow when rehab bed becomes available Admission and Anticipated Discharge Date Admission Date: December 26, 2023 Subjective Patient feels well. Denies chest pain or shortness of breath. Review of Systems Review of Systems: All systems reviewed & are unremarkable except as noted in Subjective Physical Exam Physical Exam: General: Awake, conversant. Heart: S1, S2/regular rate and rhythm, no murmur rubs or gallops Lungs: Clear to auscultation bilaterally. Normal effort Abdomen: Soft/nontender/nondistended. No hepatosplenomegaly Extremities: No clubbing/cyanosis. No edema Behavior: Appropriate, cooperative Results & Data Results & Data Vital Signs (Past 12 Hours) Vital Signs Temp Pulse Pulse Resp BP Pulse Ox O2 Del Method 12/31/23 13:21 36.5 C 63 16 122/63 95 Room Air 12/31/23 08:11 36.9 C 75 18 156/64 H 95 Room Air PG Care Time/CCT Total # of Minutes Spent Total Time Spent with Patient: Total time spent is greater than 50% in coordination of care (as documented) at patient's floor/unit and/or counseling patient: Coding Level of Care Code 10563 SUB INP/OBS CARE 2/35MIN Diagnoses Cervical strain S16.1XXA Encounter type: initial encounter (1) Cervical strain Encounter type: initial encounter Qualified Code(s): S16.1XXA - Strain of muscle, fascia and tendon at neck level, initial encounter
[2024-01-01 07:15] VITALS: BP 152/72; RESP 16; TEMP 97.7; O2SAT 95
--- NOTE | 2024-01-01 09:16 | Discharge Summary ---
Date of Service January 01, 2024 Admission HPI Per Admitting Provider This is a 73-year-old female with a history of metastatic breast carcinoma to the liver. Under active chemotherapy treatment. She had chemotherapy a couple days ago. Yesterday she had a blood transfusion with 2 units of packed red blood cells. She has had multiple falls with increasing left neck pain over the last few days. She presented the ER for further evaluation and treatment. In the emergency department she was found to have a white count of 12.3 hemoglobin of 11 and INR 1.3-she is on chronic Eliquis therapy. Creatinine unremarkable. Troponin was 14.7. CT of the chest was negative for traumatic i njury. It did show trace pleural effusion. There was no pneumothorax or consolidations. There was multifocal hepatic metastatic disease noted. CT of the cervical spine was pertinent for no acute spine fracture or sublux station. However there was moderate paravertebral edema raising the possibility of a ligamentous injury. With severe multi focal facet arthrosis with moderate degenerative disc disease of the cervical spine. We are called to admit the patient for her troponin at 14.7 and weakness. We requested ER consultation with orthopedic spine surgery that was made. Recommending soft collar for now they will see the patient on consultation. We are repeating a stat troponin. In addition given the increased weakness with multiple falls and the white blood cell count we have ordered a stat UA catheterized urine. It is pending at the time of this dictation. Admission Exam Per Admitting Provider In General: In general is a 73-year-old female who is alert and oriented x 3 at the time my exam her only complaint is left-sided neck pain and being hungry. She is accompanied by her at the time of my exam. HEENT: Normocephalic atraumatic pupils are equal round and reactive to light bilaterally. No scleral icterus no conjunctival injection external auditory canals are patent septum is in the midline nose is without discharge oral mucosa is pink and moist without lesion. NECK: No carotid bruits. No JVD. Pain in the left neck region/cervical spine region with palpation. I did not do range of motion testing given the current situation with possible ligamentous injury. We have asked the nurse to place a soft collar as ordered. HEART: Regular rate and rhythm I do not appreciate any ectopy or rub. No murmur. -EKG is paced and unremarkable. LUNGS: Clear to auscultation bilaterally and anteriorly with no evidence of adventitious sounds/wheezes rales or rhonchi. ABDOMEN: Soft nontender, no rebound, no peritoneal signs, positive bowel sounds, no appreciable organomegaly. EXTREMITIES: Intact, no peripheral cyanosis, clubbing or edema. Bilateral total knee arthroplasty scars noted. The patient has a skin tear on her right forearm. Some mild active bleeding. Local wound care recommended. NEUROLOGICAL: Cranial nerves II through XII are grossly intact with no focal deficit elicited upon examination. No tremor. Principal Diagnosis Neck pain with probable sprain and ligamentous injury Debility with frequent falls Discharge Exam General: Awake, conversant. Heart: S1, S2/regular rate and rhythm, no murmur rubs or gallops Lungs: Clear to auscultation bilaterally. Normal effort Abdomen: Soft/nontender/nondistended. No hepatosplenomegaly Extremities: No clubbing/cyanosis. No edema Behavior: Appropriate, cooperative Discharge Data Allergies Allergy/AdvReac Type Severity Reaction Status Date / Time metformin AdvReac Intermediate RESTLESSNES Verified 12/26/23 14:11 S Consultations 12/26/23 13:23 Consult Orthopedic Spine Surgery Routine 12/29/23 12:30 Consult Behavioral Health Liaison Routine Ordered Studies 12/26/23 11:19 CT abd pelvis IV con only Stat CT cervical spine wo con Stat CT chest diagnostic w con Stat CT head/brain wo con Stat Hospital Course (1) Cervical strain: Assessment: 1. Neck pain with probable strain sprain with possible ligamentous injury with cervical edema on CT. Orthopedic spine surgery consulted. Soft collar. Follow-up with orthopedics in the next week or 2. Spoke to Dr. De Luna who had been prescribing her oxycodone 10 mg p.o. every 4 to 6 hours as needed. No OxyContin was refilled. OxyContin was discontinued. During this hospital, the patient has exhibited some drug-seeking behavior. There were times when she was noted to be moaning in pain during my encounter. However on the phone call, she was able to give clear instructions without any grimacing. She does not like OxyContin. Oxycodone is all that she wants. 2. Suicidal comments. Patient has made some suicidal comments. Psychiatry consulted. Denies suicidal ideation at this time. 2. Debility with frequent falls at home. PT and OT is consulted. Patient is going to rehab. 3. Paroxysmal atrial fibrillation. Paced rhythm on EKG today. Eliquis was held during this hospital stay due to the frequent falls. Eliquis will be resumed as she is being discharged to a relatively safe set up at a rehab unit.. Decision will need to be made by her PCP whether or not to continue Eliquis due to high fall risk. 4. Abnormal troponin mildly elevated at 14.7. No hernandez chest pain. Repeat troponin flat. EKG is paced. Echocardiogram reviewed, no changes. 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 5. Breast carcinoma with metastatic disease to the liver. Under active treatment. 6. Acute UTI. Urinalysis was suggestive. Patient was treated with Rocephin during this hospital stay. Completed the course. Urine culture is unreliable. Leukocytosis improved 8. Generalized weakness. Possibly related to UTI. Continue treatment for UTI. PT/OT consulted 9. Mild hypocalcemia. 10. History of diabetes mellitus. A1c 6.3. Increase Lantus to home dose of 15 units every afternoon 10. History of diabetic neuropathy. 11. Anemia. Stable. Received 2 units of packed red blood cells prior to admission as an outpatient. 12. GERD. Continue home meds. Yet to be reconciled. 13. History of aortic stenosis. Echocardiograms been ordered. 14. History of tachybradycardia syndrome status post pacemaker placement. Appears to be pacemaker dependent on EKG. 15. Hypertension. Blood pressure better controlled on Cardizem 360, losartan 25, added Cardura 2 mg. Plan Full code Discharge to senior living facility today. Total Time Total Time Spent Total Time Spent (In Minutes): 35 Discharge Plan Discharge Items Patient Disposition: Transfer [facility]-Way Fac Reason For Visit: NECK PAIN, FREQUENT FALLS Discharge Diagnosis: Neck pain with probable sprain and ligamentous injury Debility with frequent falls Activity: As commented below Activity Comment: Per PT/OT recommendations Non-emergency contact: Primary Care Provider Call non-emergency contact if: you have any medication questions and your symptoms worsen Follow-up/Referrals: Quinn Lovett MD [Primary Care Provider] - Son Davidson MD [Surgeon] - Diet: Carb Consistent or DM2 and Heart Healthy Addtl Attending Provider Instructions: Advised to follow-up with orthopedics Dr. Davidson in 1 week Advised to follow-up with PCP in 1 week Pending Studies at Discharge: No Stand-Alone Forms: My [facility] Skilled Items Patient informed of condition?: Yes DNR: No Discharge Level of Care: Skilled Communicable Disease: No Discharge Prognosis: Stable Lines: None Urinary Catheter: No Medications and DC Order Prescriptions: New doxazosin 2 mg Tablet 2 mg PO DAILY 30 Days Qty: 30 0RF Continued (DME) OneTouch Ultra Test Strip See Rx Instructions .Route Qty: 100 5RF Rx Instructions: Test BS 3x daily cyanocobalamin (vitamin B-12) 1,000 mcg/mL kit 1,000 mcg IM MONTHLY Qty: 1 3RF (DME) lancets [OneTouch Delica Plus Lancet] 33 gauge misc See Rx Instructions .Route Qty: 300 3RF Rx Instructions: use to check bsg 3 times daily albuterol sulfate 90 mcg/actuation HFA aerosol inhaler 2 puff INHALATION Q4 PRN (Reason: Shortness Of Breath Or Wheezing) Qty: 8.5 5RF meclizine 25 mg tablet 25 mg PO DAILY PRN (Reason: DIZZINESS/VERTIGO) insulin glargine [Lantus U-100 Insulin] 100 unit/mL solution 15 unit subcut QPM (DME) pen needle, diabetic [Easy Comfort Pen [place]] 32 gauge x 5/32" needle See Rx Instructions .Route Qty: 100 3RF Rx Instructions: As directed levothyroxine 25 mcg tablet 37.5 mcg PO QAM Qty: 135 3RF Eliquis 5 mg tablet 5 mg PO BID Qty: 60 5RF pantoprazole [Protonix] 40 mg tablet,delayed release (DR/EC) 40 mg PO QAM Qty: 90 3RF atorvastatin 40 mg tablet 40 mg PO HS Qty: 90 3RF diltiazem HCl [Tiazac] 360 mg capsule,extended release 24 hr 360 mg PO QAM Qty: 90 3RF furosemide 20 mg tablet 20 mg PO DAILY Qty: 30 5RF nystatin 100,000 unit/gram powder 1 applic topical DAILY Qty: 30 2RF duloxetine [Cymbalta] 60 mg capsule,delayed release(DR/EC) 60 mg PO QAM phenazopyridine 95 mg Tablet 95 mg PO TID PRN (Reason: Urinary Pain) oxycodone 10 mg tablet 10 mg PO UD PRN (Reason: Pain) Rx Instructions: Every 4-6 hours as needed potassium chloride 20 mEq tablet extended release 20 meq PO QAM losartan 25 mg tablet 25 mg PO QAM Discharge Orders: Discharge Order (Routine); Ordered 01/01/24 Ordered By: Jamison Mueller Admission Data Admit Date/Time: 12/26/23 13:27 Attending Provider: Jamison Mueller Admit Provider: Thomas Daugherty Primary Care Provider: Quinn Lovett Other Providers: Son Davidson; [facility]; Lazara Maher at [place] Other Interventions: Discharge Summary Assessment (RN) Last Done: 01/01/24 09:47
[2024-01-01 09:48] VITALS: PULSE 75
[2024-01-01] MEDS: FIRST - Mouthwash BLM 119 ML PO SCH (10:51)
== END 2024-01-01 11:01 | DRG 552 ==
LOC: ED 11:01 → SUATTDRO 13:27 → EDINP 13:27 → INTOOBSV 13:27 → 2N 18:01 → 3W 12-28 21:08

== ENCOUNTER 2024-01-12 17:29 | Inpatient (IN) ==
--- NOTE | 2024-01-12 17:35 | Emergency Department Note ---
Impression & Plan Septic shock, Symptomatic anemia, Acute dehydration, Breast cancer ED Provider Note NAME: MUNIRA EDWARDS AGE: 73 SEX: F : 1950 ARRIVES VIA: Ambulance INFORMANT: Patient, daughters ED PROVIDER(S): Teofilo Lopez MD CHIEF COMPLAINT: Confusion, fatigue, diarrhea MEDICAL DECISION MAKING: Patient presents due to concern for weakness and fatigue. Patient currently undergoing chemotherapy treatment. IV was established and blood work was obtained. Patient was ordered IV fluids. I did ask nursing to obtain a second IV site in order to run fluids. Patient initially with a normal white count but hemoglobin of 5.2. Platelet count of 76,000. Patient's VBG with a VBG pH is 7 2 with a pCO2 of 22. Sodium 133. The patient's BUN to creatinine is elevated. Calcium is low at 7.5. The patient was ordered calcium for replacement. Procalcitonin of 21 and a lactate of 10. The patient was ordered broad-spectrum antibiotics including blood cultures. The patient did have associated blood ordered and consent was obtained from the daughters at bedside. Patient did receive IV fluids but unfortunately the patient did not have blood that was readily available here at the hospital as the patient did require irradiated product was which is only available through the [facility] in [place]. Patient certainly may have an associated infectious process underlying patient will need blood in addition to IV fluid resuscitation. I did speak with the on-call hospitalist service and the patient was admitted to the medicine service. Throughout the course of the patient's stay the patient did seem to improve clinically as she was more interactive and talkative. Patient did have improvement in her blood pressures to maps greater than 65 and did not require vasopressor support. Patient did have a repeat lactate which was obtained after a bit more prolonged course and was noted to be 8. Critical Care: I have personally spent 55 minutes of critical care time in direct management of this patient. This includes bedside care, interpretation of diagnostic studies, and testing, discussion with consultants, patient, and family members, and other require inpatient management activities. This 55 minutes is in excess of all separately billable procedures. Discussion w/ other healthcare providers: None Prior /Outside records reviewed: I reviewed a transitional care visit from Dr. Lovett from earlier today. Patient had been admitted to [facility] because of recurrent falls neck pain transferred to [facility] on December 31. During her hospitalization the patient had chemo for metastatic breast cancer 2 days prior to admission and received 2 units PRBCs transfused the day prior to admission due to chemotherapy-induced anemia. Also of note patient had been seen due to concern for bunch to left leg and left hand instructed to follow-up with [facility] burn center. Patient was to be using bacitracin and Vaseline gauze. Differential diagnosis: Infection, dehydration, metabolic abnormality, hypo/hyperglycemia, electrolyte imbalance, anemia, UTI, pneumonia, thyroid dysfunction among others were considered. Diagnostics, as interpreted by me: ECG: V paced rhythm, rate of 62 wide QRS left bundle branch block pattern. Left axis deviation. Cardiac monitoring: An order was placed for continuous cardiac monitoring. The monitor shows a rate of 63 with paced rhythm. Patient was placed on pulse oximetry Medical decision rules: None Imaging studies: I informally interpreted the patient's Chest x-ray does not show obvious pneumonia or pneumothorax port and pacemaker noted with formal report to follow. HPI: Patient presents from home due to concern for possible confusion. The patient was noted to be hypotensive and may have taken up to 20 mg of oxycodone. Patient has received this due to concern for bunch and has yet to follow-up with [facility]. Patient states that she does complain of allover body pain. No reported falls or trauma. Patient denies any nausea vomiting. Patient has had some associated diarrhea. The patient was recent seen in hospital due to concern for bunch and is yet to follow-up with the burn center at [facility]. Patient has been applying some nonadherent dressing and bacitracin to the areas. Patient reportedly had a explosive bowel movement earlier today and was able to be bathed by at home but subsequently was brought in by the daughters due to concern for her weakness and fatigue. PAST MEDICAL HISTORY: See Below PAST SURGICAL HISTORY: See Below SOCIAL HISTORY: See Below HOME MEDICATIONS: See Below ALLERGIES: See Below VITALS: See Below PHYSICAL EXAMINATION: GENERAL: Pale in appearance. EYE EXAM: Normal conjunctiva. PERRL, no anisocoria and EOM's grossly intact w/o pain. OROPHARYNX: Moist mucus membranes, grossly normal dentition. NECK: Trachea midline, no stridor. LUNGS: Clear to auscultation. Normal chest wall mechanics. HEART: NSR, no MRG. ABDOMEN: Abdomen soft, non-tender, no masses, no rebound or guarding. BACK: No CVA TTP. SKIN: Open area of skin over the left proximal medial thigh, no surrounding erythema or drainage. Blistering noted to the dorsal aspect of the left hand. Open area of skin over the left ankle. UPPER EXTREMITIES: Upper extremities are grossly normal. LOWER EXTREMITIES: Grossly normal, no edema. NEURO EXAM: Opens eyes to voice follows basic commands, cranial nerves II-XII grossly intact, normal speech, moves all 4 extremities. Past Med/Surg History Problem List (Updated 01/14/24 @ 00:44 by Teofilo Lopez MD) Breast cancer (Acute) Acute dehydration (Acute) Symptomatic anemia (Acute) Septic shock (Acute) MSSA bacteremia Severe sepsis Elevated troponin Lactic acidosis Shock Burn of thigh (Acute) Burn of hand (Acute) Degeneration of cervical intervertebral disc Weakness (Acute) Cervical strain (Acute) Pleural effusion (Acute) Bilateral edema of lower extremity (Acute) Frequent falls (Acute) Anticoagulant long-term use (Acute) Lymphedema Palliative care by specialist Anemia (Acute) Bilateral nephrolithiasis Hypokalemia Urinary tract infection (Acute) Nausea & vomiting (Acute) Acute dehydration (Acute) Metastases to the liver (Acute) Abdominal pain (Acute) Breast skin changes Microalbuminuria Hypothyroidism Pain due to interstitial cystitis Chronic diarrhea Recurrent UTI (urinary tract infection) Burning with urination MRSA (methicillin resistant staph aureus) culture positive (Acute) Diabetes type 2, controlled Chronic GERD Carpal tunnel syndrome on both sides with surgical intervention Anemia (Acute) Vitamin D deficiency Carpal tunnel syndrome of right wrist Leukopenia (Acute) Memory loss Metastatic breast cancer Anxiety Diabetic neuropathy pt denies Hyperglobulinemia Aortic valve stenosis Status post placement of cardiac pacemaker Anticoagulant long-term use Tachy-monica syndrome Atrial fibrillation follows with Dr Ramires Vitamin B12 deficiency (Chronic) Positive ESTEPHANIA (antinuclear antibody) (Chronic) Lumbar radiculopathy (Chronic) Lipodystrophy (Chronic) Gait disturbance (Chronic) Depression Constipation (Chronic) Arthritis (Chronic) Medical History Human metapneumovirus pneumonia Infected venous access port 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 History of blood transfusion Closed fracture of left distal fibula Breast cancer (12/18/15) "Abnormal left breast mammogram Status post core needle biopsy 12/18/2015 revealing infiltrating ductal carcinoma Estrogen receptor positive, progesterone receptor positive, HER-2/po negative Status post left needle localization lumpectomy and sentinel lymph node biopsy 01/04/2016 Stage pT1c pN0M0 Status post completion of radiation therapy 02/13/2016 received 3850 cGy utilizing accelerated partial breast irradiation." On 01/17/16 14:10 Deidre Alexander Orta wrote "Abnormal left breast mammogram Status post core needle biopsy 12/18/2015 revealing infiltrating ductal carcinoma Estrogen receptor positive, progesterone receptor positive, HER-2/po negative Status post left needle localization lumpectomy and sentinel lymph node biopsy 01/04/2016 Stage pT1c pN0M0" Generalized weakness Lung nodules monitoring Urinary frequency Pacemaker 2019, follows with Dr Ramires. checks Q6 months. Neuropathy Aortic stenosis Mild aortic stenosis (MERLENE 1.6cm2; MG 7.8mmHg) per 12/2019 echo Diabetes mellitus, type 2 IDDM Degenerative disc disease Hx of cardiac pacemaker Implanted 2019 (tachy-monica syndrome), [employer] device Follows with Dr. Ramires Liver mass Pt denies but 05/17/20 PET scan shows 2.5 right hepatic lobe mass consistent with known hepatic metastasis Anemia h/o blood transfusions Infiltrating ductal carcinoma of left breast Initial Dx 2015- s/p lumpectomy, XRT and anastrozole Metastatic breast cancer 03/2020, follows with [facility] Peripheral neuropathy Hands (B/L CTS) Obstructive sleep apnea "Resolved" s/p gastric bypass (? retested) Hypercholesterolemia Gastroesophageal reflux disease controlled, stable per pt Chronic pain Cervical spine disease Full ROM per pt Surgical History H/O breast biopsy (05/29/23) Skin, left breast, 2 punch biopsies: In office procedure Dr. Alvarez - Fibrosing dermatitis. - See comment Status post revision of total replacement of right knee History of removal of Port-a-Cath (01/11/22) Infected port right anterior chest removed Dr. Shah S/P cardiac pacemaker procedure 2019 History of surgery Right knee TKA revision with spacer (07/11/2021): SAB at L3-4 (x2 attempts) + PNB at [facility]. No issues noted per post-op anesthesia progress note. History of carpal tunnel surgery of left wrist 06/2021 History of carpal tunnel surgery of right wrist Port-A-Cath in place hx - 05/2020 since removed d/t infection at port 12/2021 History of colonoscopy History of evacuation of hematoma Hematoma right breast and right chest 08/31/13 Dr. Shah H/O bilateral hip replacements Status post repair of ventral hernia History of total knee arthroplasty R/L Status post total abdominal hysterectomy and bilateral salpingo-oophorectomy Status post lumbar spine surgery for decompression of spinal cord Status post partial mastectomy of left breast Status post panniculectomy History of section x1 Status post laparoscopic cholecystectomy Status post gastric bypass for obesity Status post arthroscopy of left shoulder Status post appendectomy Family History Unknown Breast cancer Emphysema lung Mother Diabetes Heart disease Father Heart disease Other No family history of adverse response to anesthesia Denies family history of Ovarian cancer Prostate cancer Coronary heart disease Colorectal cancer Social History Smoking Status: Never smoker Tobacco Type: Cigarettes packs per day: 2; Second Hand Exposure: No; Do You Dip or Chew Tobacco: No; Hx Alcohol Use: No Hx Substance Use: No Preferred Language: Tajik Communication Ability: Effective Visual Impairment: No Limitations Hearing Ability: Normal Certifier Required: No Beliefs That Will Affect Care: None marital status: Current Living Situation: Spouse Current Living Situation Comment: lives with current occupational status: retired Feels Safe at Home: Yes Childhood Exposure to Second-Hand Smoke: Yes Diet: diabetic caffeine: Yes Dental Care, Regularly: No Physical Activity Frequency: 1-2 Times per Week Seatbelt Use: always Sunscreen Use: No Assistive Devices: Cane and Walker Allergies Allergies Allergy/AdvReac Type Severity Reaction Status Date / Time metformin AdvReac Intermediate RESTLESSNES Verified 12/26/23 14:11 S Home Meds Home Medications Medication Instructions Recorded Confirmed insulin glargine 100 unit/mL 15 unit subcut QPM 02/28/23 12/26/23 subcutaneous solution (Lantus U-100 Insulin) meclizine 25 mg tablet 25 mg PO DAILY PRN 02/28/23 12/29/23 DIZZINESS/VERTIGO duloxetine 60 mg capsule,delayed 60 mg PO QAM 09/26/23 12/26/23 release (Cymbalta) losartan 25 mg tablet 25 mg PO QAM 10/17/23 12/26/23 oxycodone 10 mg tablet 10 mg PO UD PRN Pain 10/17/23 12/26/23 phenazopyridine 95 mg tablet 95 mg PO TID PRN Urinary Pain 10/17/23 12/26/23 potassium chloride 20 mEq 20 meq PO QAM 10/17/23 12/26/23 tablet,extended release Previous Rx's Medication Instructions Recorded blood sugar diagnostic (OneTouch #100 ea 10/07/22 Ultra Test strips) cyanocobalamin (vitamin B-12) 1,000 mcg IM MONTHLY #1 ea 10/07/22 1,000 mcg/mL injection kit alive.cnTouch Delica Plus Lancet 33 #300 ea 01/09/23 gauge (lancets) albuterol sulfate 90 mcg/actuation 2 puff inhalation Q4 PRN Shortness 02/24/23 aerosol inhaler Of Breath Or Wheezing #8.5 grams pen needle, diabetic 32 gauge x #100 ea 06/12/23 5/32" (Easy Comfort Pen [place]) levothyroxine 25 mcg tablet 37.5 mcg (1.5 x 25 mcg) PO QAM 07/30/23 #135 tabs apixaban 5 mg tablet (Eliquis) 5 mg PO BID #60 tabs 09/16/23 pantoprazole 40 mg tablet,delayed 40 mg PO QAM #90 tabs 10/07/23 release (Protonix) atorvastatin 40 mg tablet 40 mg PO HS #90 tabs 10/14/23 diltiazem HCl 360 mg capsule,24 360 mg PO QAM #90 caps 12/16/23 hr,extended release (Tiazac) furosemide 20 mg tablet 20 mg PO DAILY #30 tabs 12/18/23 nystatin 100,000 unit/gram topical 1 applic topical DAILY #30 grams 12/18/23 powder doxazosin 2 mg tablet 2 mg PO DAILY 1 month #30 tabs 12/31/23 Results & Data (ED) Vital Signs Vital Signs - 24 hr 01/12/24 17:39 01/12/24 17:45 01/12/24 17:55 Temperature 37 C Temperature Source Oral Pulse Rate 60 60 Respiratory Rate 18 Respiratory Effort / Characteristics Spontaneous Respiratory Depth Normal Respiratory Pattern Regular Blood Pressure 66/40 L Blood Pressure [Right Arm] 76/44 L Blood Pressure Mean 48 Blood Pressure Mean [Right Arm] 54 Pulse Oximetry 95 Oxygen Delivery Method Room Air Sepsis Recent Fever Within 48 Hours No Sepsis New/Unexplained Change in Mental Status Yes Sepsis Action Taken by Nursing Physician Notified Home Medications Current Medication List: was personally reviewed by me Laboratory Data Attestation: I reviewed the patient's lab results. 01/13/24 09:27 01/13/24 05:43 Lab Results 01/12/24 01/12/24 01/12/24 Range/Units 18:15 18:20 18:24 WBC 5.19 (4.8-10.8) K/ul RBC 1.83 L (4.20-5.40) M/uL Hgb 5.2 L* (12.0-16.0) g/dl POC Hgb 5.1 L* (12.0-16.0) g/dl Hct 17.3 L* (37.0-47.0) % POC Hct 15 L* (37-47) % MCV 94.5 (80.0-100.0) fL MCH 28.4 (25.0-34.0) pg MCHC 30.1 L (32.0-36.0) g/dL RDW Std Deviation 60.2 H (36.4-46.3) fL RDW Coeff of Thompson 18.2 H (11.5-14.5) % Plt Count 76 L (130-400) K/uL MPV 12.9 H (9.4-12.4) fL Immature Gran % (Auto) 0.6 % Neut % (Auto) 66.4 % Lymph % (Auto) 8.1 % Fisher % (Auto) 24.7 % Eos % (Auto) 0.0 % Baso % (Auto) 0.2 % Neut # (Auto) 3.45 (1.40-6.50) K/uL Lymph # (Auto) 0.42 L (1.20-3.40) K/uL Fisher # (Auto) 1.28 H (0.11-0.59) K/uL Eos # (Auto) 0.00 (0.00-0.50) K/uL Baso # (Auto) 0.01 (0.00-0.20) K/uL Immature Gran # (Auto) 0.03 (0.01-0.20) K/uL Absolute Nucleated RBC 0.13 H (0.00-0.12) K/uL Nucleated RBC % (auto) 2.5 % Polychromasia 1+ Ovalocytes 1+ Echinocytes 1+ PT 17.4 H (9.0-12.0) Seconds INR 1.7 H (0.9-1.1) APTT 50 H (21-31) Seconds PTT Ratio 1.9 VBG pH 7.21 L (7.36-7.41) VBG pCO2 22 L (38-50) mmHg VBG pO2 42 mmHg VBG HCO3 9 mmol/L VBG O2 Saturation < 60.0 % VBG Base Excess -17.1 mEq/L POC Sodium 134 L (135-144) mmol/L Sodium 133 L (136-145) mmol/L POC Potassium 4.3 (3.3-5.0) mmol/L Potassium 4.3 (3.5-5.1) mmol/L POC Chloride 108 (101-112) mmol/L Chloride 107 (98-107) mmol/L Carbon Dioxide 10 L (21-32) mmol/L POC Total CO2 10 L (24-31) mmol/L Anion Gap 16 H (3-11) POC Anion Gap 22.0 (16-25) mmol/L POC BUN 27 H (7-18) mg/dl BUN 36 H (6-23) mg/dl Creatinine 1.18 (0.6-1.2) mg/dl POC Creatinine 1.2 (0.6-1.3) mg/dl Est Cr Clr Drug Dosing 37.8 ml/min Est GFR ( Amer) 52.2 ml/min Est GFR (Non-Af Amer) 45.1 ml/min BUN/Creatinine Ratio 30.5 H (10-20) Glucose 193 H (70-99(Fasting)) mg/dl POC Glucose (other) 176 H (70-99) mg/dl Lactate 10.4 H* (0.4-2.0) mmol/L Calcium 7.5 L (8.6-10.3) mg/dl POC Ioniz Calcium Janice 1.11 L (1.12-1.32) mmol/l Magnesium 2.1 (1.7-2.4) mg/dl Total Bilirubin 0.7 (0.2-1.0) mg/dl Direct Bilirubin 0.4 H (0-0.2) mg/dl AST 160 H (13-39) U/L ALT 122 H (7-52) U/L Alkaline Phosphatase 50 (34-104) U/L Troponin I High Sens 60.0 H* (0-14) pg/ml Total Protein 4.8 L (6.0-8.3) gm/dl Albumin 2.8 L (3.4-5.0) gm/dl Lipase 4 L (11-82) U/L Procalcitonin 21.50 H (0-0.5) ng/ml Random Cortisol mcg/dl Staphylococcus sp PCR (NotDetected) Staph aureus (PCR) (NotDetected) mecA/C & MREJ Resist Gene (NotDetected) Bld Cult ID Panel PCR (NotDetected) Blood Type Antibody Screen Crossmatch 01/12/24 01/12/24 01/12/24 Range/Units 18:45 19:55 21:25 WBC (4.8-10.8) K/ul RBC (4.20-5.40) M/uL Hgb (12.0-16.0) g/dl POC Hgb (12.0-16.0) g/dl Hct (37.0-47.0) % POC Hct (37-47) % MCV (80.0-100.0) fL MCH (25.0-34.0) pg MCHC (32.0-36.0) g/dL RDW Std Deviation (36.4-46.3) fL RDW Coeff of Thompson (11.5-14.5) % Plt Count (130-400) K/uL MPV (9.4-12.4) fL Immature Gran % (Auto) % Neut % (Auto) % Lymph % (Auto) % Fisher % (Auto) % Eos % (Auto) % Baso % (Auto) % Neut # (Auto) (1.40-6.50) K/uL Lymph # (Auto) (1.20-3.40) K/uL Fisher # (Auto) (0.11-0.59) K/uL Eos # (Auto) (0.00-0.50) K/uL Baso # (Auto) (0.00-0.20) K/uL Immature Gran # (Auto) (0.01-0.20) K/uL Absolute Nucleated RBC (0.00-0.12) K/uL Nucleated RBC % (auto) % Polychromasia Ovalocytes Echinocytes PT (9.0-12.0) Seconds INR (0.9-1.1) APTT (21-31) Seconds PTT Ratio VBG pH (7.36-7.41) VBG pCO2 (38-50) mmHg VBG pO2 mmHg VBG HCO3 mmol/L VBG O2 Saturation % VBG Base Excess mEq/L POC Sodium (135-144) mmol/L Sodium (136-145) mmol/L POC Potassium (3.3-5.0) mmol/L Potassium (3.5-5.1) mmol/L POC Chloride (101-112) mmol/L Chloride (98-107) mmol/L Carbon Dioxide (21-32) mmol/L POC Total CO2 (24-31) mmol/L Anion Gap (3-11) POC Anion Gap (16-25) mmol/L POC BUN (7-18) mg/dl BUN (6-23) mg/dl Creatinine (0.6-1.2) mg/dl POC Creatinine (0.6-1.3) mg/dl Est Cr Clr Drug Dosing ml/min Est GFR ( Amer) ml/min Est GFR (Non-Af Amer) ml/min BUN/Creatinine Ratio (10-20) Glucose (70-99(Fasting)) mg/dl POC Glucose (other) (70-99) mg/dl Lactate (0.4-2.0) mmol/L Calcium (8.6-10.3) mg/dl POC Ioniz Calcium Janice (1.12-1.32) mmol/l Magnesium (1.7-2.4) mg/dl Total Bilirubin (0.2-1.0) mg/dl Direct Bilirubin (0-0.2) mg/dl AST (13-39) U/L ALT (7-52) U/L Alkaline Phosphatase (34-104) U/L Troponin I High Sens 56.4 H* (0-14) pg/ml Total Protein (6.0-8.3) gm/dl Albumin (3.4-5.0) gm/dl Lipase (11-82) U/L Procalcitonin (0-0.5) ng/ml Random Cortisol > 60.00 mcg/dl Staphylococcus sp PCR DETECTED A (NotDetected) Staph aureus (PCR) DETECTED A (NotDetected) mecA/C & MREJ Resist Gene MRSA Not Detected (NotDetected) Bld Cult ID Panel PCR See PCR Comment (NotDetected) Blood Type O Positive Antibody Screen NEGATIVE Crossmatch See Detail Administered Medications Doxazosin Mesylate (Doxazosin Mesylate Tab 2 Mg Tab) 2 mg PO DAILY RUTH Stop: 02/12/24 08:59 Last Admin: 01/13/24 08:44 Dose: 2 mg Documented By: GRACY Duloxetine HCl (Duloxetine Hcl 60 Mg Cap) 60 mg PO QAM RUTH Stop: 02/12/24 08:59 Last Admin: 01/13/24 08:43 Dose: 60 mg Documented By: GRACY Sodium Bicarbonate 150 meq/ (Dextrose) 1,150 mls @ 100 mls/hr IV .[id number] RUTH Stop: 02/12/24 09:59 Last Admin: 01/13/24 22:12 Dose: 100 mls/hr Documented By: [id number] Infusion: 01/13/24 22:09 Dose: Infused Documented By: [id number] Admin: 01/13/24 10:39 Dose: 100 mls/hr Documented By: GRACY Ertapenem 1,000 mg/ Syringe 10 mls @ 2 mls/min IV Q24H RUTH Stop: 01/23/24 13:59 Last Admin: 01/13/24 14:51 Dose: 2 mls/min Documented By: GRACY Pantoprazole Sodium 40 mg/ (Syringe) 10 mls @ 5 mls/min IV BID RUTH Stop: 02/12/24 20:59 Last Admin: 01/13/24 20:42 Dose: 5 mls/min Documented By: [id number] Insulin Aspart (Insulin Aspart Per Unit Charge) 0 units SC Q6 RUTH Stop: 02/12/24 05:59 Last Admin: 01/14/24 00:31 Dose: 1 units Documented By: [id number] Co-signed By: RACHEL Admin: 01/13/24 17:12 Dose: 1 units Documented By: GRACY Co-signed By: WRS Admin: 01/13/24 12:39 Dose: Not Given Documented By: Admin: 01/13/24 05:58 Dose: Not Given Documented By: ESG Insulin Glargine (Lantus Per Unit Charge) 15 units SQ QPM RUTH Stop: 02/12/24 20:59 Last Admin: 01/13/24 20:42 Dose: 15 units Documented By: [id number] Co-signed By: LORRIE Levothyroxine Sodium (Levothyroxine Sodium 25 Mcg Tablet) 37.5 mcg PO DAILYBB RUTH Stop: 02/12/24 06:29 Last Admin: 01/13/24 06:32 Dose: 37.5 mcg Documented By: YAEL Nystatin (Nystatin Powder 15gm Btl) 1 appln EXT DAILY RUTH Stop: 02/12/24 08:59 Last Admin: 01/13/24 12:38 Dose: Not Given Documented By: GRACY Oxycodone HCl (Oxycodone Hcl Ir 5 Mg Tab (Immediate Release)) 10 mg PO Q6H PRN PRN Reason: Pain Stop: 01/27/24 01:14 Last Admin: 01/13/24 20:58 Dose: 10 mg Documented By: [id number] Admin: 01/13/24 08:43 Dose: 10 mg Documented By: GRACY Phenazopyridine HCl (Phenazopyridine Hcl 100 Mg Tab) 100 mg PO TID PRN PRN Reason: Urinary Pain Stop: 01/14/24 23:59 Last Admin: 01/13/24 08:43 Dose: 100 mg Documented By: GRACY Discontinued Medications Sodium Chloride (Nss) 500 mls @ 999 mls/hr IV .Q31M RUTH Stop: 01/12/24 18:30 Last Infusion: 01/12/24 19:13 Dose: Infused Documented By: Admin: 01/12/24 18:30 Dose: 999 mls/hr Documented By: JOSE G Sodium Chloride (Nss) 1,000 mls @ 999 mls/hr IV .Q1H1M ONE Stop: 01/12/24 20:04 Last Infusion: 01/12/24 20:50 Dose: Infused Documented By: Admin: 01/12/24 19:12 Dose: 999 mls/hr Documented By: BARNEY Vancomycin HCl 1,750 mg/ (Sodium Chloride) 535 mls @ 200 mls/hr IV NOW ONE Stop: 01/12/24 21:46 Last Infusion: 01/13/24 00:00 Dose: Infused Documented By: Admin: 01/12/24 20:48 Dose: 200 mls/hr Documented By: BARNEY Piperacillin Sod/Tazobactam Sod (Zosyn) 4.5 gm in 100 mls @ 200 mls/hr IV NOW ONE Stop: 01/12/24 19:35 Last Infusion: 01/12/24 20:50 Dose: Infused Documented By: Admin: 01/12/24 19:18 Dose: 200 mls/hr Documented By: BARNEY Calcium Gluconate () 1,000 mg in 60 mls @ 240 mls/hr IV Q15M [facility] Stop: 01/12/24 20:29 Last Infusion: 01/12/24 22:12 Dose: Infused Documented By: Admin: 01/12/24 21:51 Dose: 240 mls/hr Documented By: Infusion: 01/12/24 21:48 Dose: Infused Documented By: Admin: 01/12/24 21:33 Dose: 240 mls/hr Documented By: Infusion: 01/12/24 21:31 Dose: Infused Documented By: Admin: 01/12/24 21:16 Dose: 240 mls/hr Documented By: PIPE Albumin Human (Albumin 5%) 500 mls @ 500 mls/hr IV ONE ONE Stop: 01/12/24 22:37 Last Infusion: 01/12/24 23:34 Dose: Infused Documented By: Admin: 01/12/24 22:18 Dose: 500 mls/hr Documented By: BARNEY Sodium Chloride (Nss) 500 mls @ 999 mls/hr IV .Q31M ONE Stop: 01/12/24 22:23 Last Infusion: 01/12/24 21:57 Dose: Infused Documented By: Admin: 01/12/24 21:00 Dose: 999 mls/hr Documented By: BARNEY Parenteral Electrolytes (Plasma-Lyte A Ph 7.4) 1,000 mls @ 80 mls/hr IV .[id number] [facility] Stop: 02/12/24 01:14 Last Infusion: 01/13/24 11:35 Dose: Infused Documented By: [facility] Admin: 01/13/24 01:15 Dose: 80 mls/hr Documented By: YAEL Vancomycin HCl 1,000 mg/ (Sodium Chloride) 270 mls @ 200 mls/hr IV Q24H RUTH Stop: 01/20/24 08:59 Last Infusion: 01/13/24 11:35 Dose: Infused Documented By: Admin: 01/13/24 08:44 Dose: 200 mls/hr Documented By: GRACY Cefazolin Sodium (Ancef 2000mg) 2,000 mg in 15 mls @ 3.75 mls/min IV Q8H RUTH; Protocol Stop: 01/27/24 09:59 Last Admin: 01/13/24 10:39 Dose: 3.75 mls/min Documented By: GRACY Lactated Ringer's (Lr) 250 mls @ 999 mls/hr IV .Q16M ONE Stop: 01/13/24 10:15 Last Infusion: 01/13/24 11:35 Dose: Infused Documented By: Admin: 01/13/24 10:00 Dose: 999 mls/hr Documented By: GRACY Phytonadione 10 mg/ Dextrose 51 mls @ 102 mls/hr IV ONE ONE Stop: 01/13/24 11:59 Last Infusion: 01/13/24 13:32 Dose: Infused Documented By: Admin: 01/13/24 12:39 Dose: 102 mls/hr Documented By: GRACY Melatonin (Melatonin 3 Mg Tab) 3 mg PO NOW STA Stop: 01/12/24 20:44 Last Admin: 01/12/24 21:28 Dose: Not Given Documented By: BARNEY Pantoprazole Sodium (Pantoprazole 40 Mg Tab) 40 mg PO QAM RUTH Stop: 02/12/24 08:59 Last Admin: 01/13/24 08:44 Dose: 40 mg Documented By: GRACY Sodium Bicarbonate (Sodium Bicarb 8.4% Inj 50 Meq/50 Ml Syr) 50 meq IV NOW STA Stop: 01/12/24 21:51 Last Admin: 01/12/24 22:08 Dose: 50 meq Documented By: BARNEY Discharge Plan Visit Data Chief Complaint: Confusion ED Provider: Teofilo Lopez Discharge Problem: Septic shock, Symptomatic anemia, Acute dehydration, Breast cancer Patient Disposition: Admitted As Inpatient Discharge Instructions Interventions: ED Discharge Assessment Last Done: 01/12/24 22:46
[2024-01-12 18:25] LABS: Base Excess VBG -17.1 mEq/L; HCO3 VBG 9 mmol/L; Oxygen Saturation VBG < 60.0 %; PCO2 VBG 22 mmHg (38-50); PO2 VBG 42 mmHg; pH VBG 7.21 (7.36-7.41)
--- NOTE | 2024-01-12 18:27 | XRay Report ---
XR chest 1V portable CLINICAL HISTORY: Sepsis COMPARISON STUDY: Chest CT January 05, 2024. FINDINGS: Dual lead left subclavian pacer and left shoulder arthroplasty are in place. Cardiomegaly i s unchanged. There is no evidence for pulmonary edema. There is no consolidation to suggest pneumonia . No pneumothorax or pleural effusion is present. IMPRESSION: No acute cardiopulmonary findings. ACT 112: Negative or not required by law. Electronically signed by: Eladio Keane M.D. 01/12/2024 6:26 PM
[2024-01-12] MEDS: SODIUM CHLORIDE 0.9% 500 ML IV SCH (18:30)
[2024-01-12 18:37] LABS: iSTAT Creatinine 1.2 mg/dl (0.6-1.3); iSTAT Hemoglobin 5.1 g/dl (12.0-16.0); iSTAT Ionized Calcium 1.11 mmol/l (1.12-1.32); iSTAT Potassium 4.3 mmol/L (3.3-5.0)
[2024-01-12 18:50] LABS: Albumin Level 2.8 gm/dl (3.4-5.0); BUN Creatinine Ratio 30.5 (10-20); Bilirubin Direct 0.4 mg/dl (0-0.2); Bilirubin,Total 0.7 mg/dl (0.2-1.0); Calcium 7.5 mg/dl (8.6-10.3); Creatinine Clr Calc Pharmacy 37.8 ml/min; Est GFR (African American) 52.2 ml/min; Est GFR (Non-African American) 45.1 ml/min; Magnesium 2.1 mg/dl (1.7-2.4); Potassium 4.3 mmol/L (3.5-5.1); Total Protein 4.8 gm/dl (6.0-8.3)
[2024-01-12 19:02] LABS: INR 1.7 (0.9-1.1); Partial Thromboplastin Ratio 1.9; Partial Thromboplastin Time 50 Seconds (21-31); Prothrombin Time 17.4 Seconds (9.0-12.0)
[2024-01-12] MEDS ORDERED: SODIUM CHLORIDE 0.9% 250 ML IV PRN (19:05)
[2024-01-12] MEDS ORDERED: VANCOMYCIN CONSULT ACTIVE PRN (19:06)
[2024-01-12] MEDS: SODIUM CHLORIDE 0.9% 1,000 ML IV ONE (19:12)
[2024-01-12] MEDS: PIPERACILLIN/TAZOBACTAM 4.5 GM/100 ML BAG IV ONE (19:18)
[2024-01-12 19:19] LABS: Basophils # (auto) 0.01 K/uL (0.00-0.20); Basophils % (auto) 0.2 %; Echinocytes 1+; Hematocrit (blood only) 17.3 % (37.0-47.0); Hemoglobin 5.2 g/dl (12.0-16.0); Immature Granulocytes # (auto) 0.03 K/uL (0.01-0.20); Immature Granulocytes % (auto) 0.6 %; Lymphocytes # (auto) 0.42 K/uL (1.20-3.40); Lymphocytes % (auto) 8.1 %; Mean Corpuscular Hemoglobin 28.4 pg (25.0-34.0); Mean Corpuscular Hgb Conc 30.1 g/dL (32.0-36.0); Mean Corpuscular Volume 94.5 fL (80.0-100.0); Mean Platelet Volume 12.9 fL (9.4-12.4); Monocytes # (auto) 1.28 K/uL (0.11-0.59); Monocytes % (auto) 24.7 %; Neutrophils # (auto) 3.45 K/uL (1.40-6.50); Neutrophils % (auto) 66.4 %; Nucleated RBC # (auto) 0.13 K/uL (0.00-0.12); Nucleated RBC % (auto) 2.5 %; Ovalocytes 1+; Platelet Count 76 K/uL (130-400); Polychromasia 1+; RDW Coefficient of Variation 18.2 % (11.5-14.5); RDW Standard Deviation 60.2 fL (36.4-46.3); Red Blood Count 1.83 M/uL (4.20-5.40); White Blood Count 5.19 K/ul (4.8-10.8)
[2024-01-12] MEDS: VANCOMYCIN HCL 1,750 MG in SODIUM CHLORIDE 0.9% 500 ML IV ONE (20:48)
[2024-01-12] MEDS: SODIUM CHLORIDE 0.9% 500 ML IV ONE (21:00)
[2024-01-12] MEDS: CALCIUM GLUCONATE 1,000 MG/60 ML BAG IV SCH (21:16)
[2024-01-12] MEDS: MELATONIN 3 MG TAB PO STA (21:28)
[2024-01-12] MEDS: SODIUM BICARB 8.4% INJ 50 MEQ/50 ML SYR IV STA (22:08)
[2024-01-12] MEDS: ALBUMIN 5% 500 ML IV ONE (22:18)
--- NOTE | 2024-01-13 00:50 | CT Scan Report ---
Exam(s): CT ABDOMEN + PELVIS Without Contrast EXAM: CT Abdomen and Pelvis Without Intravenous Contrast CLINICAL HISTORY: Sepsis with elevated lactate. TECHNIQUE: Axial computed tomography images of the abdomen and pelvis without intravenous contrast. CTDI is 24 mGy and DLP is 1150 mGy-cm. Automated exposure control was utilized for the study. A dose lowering technique was utilized adhering to the principles of ALARA. COMPARISON: CT abdomen and pelvis 12/26/2023 FINDINGS: Lung bases: Interseptal thickening is concerning for pulmonary edema. Pleural space: Trace bilateral pleural effusions. ABDOMEN: Liver: Unremarkable. Gallbladder and bile ducts: Cholelithiasis. No ductal dilation. Pancreas: Unremarkable. No ductal dilation. Spleen: Unremarkable. No splenomegaly. Adrenals: Mild hypertrophy of both adrenal glands. No mass. Kidneys and ureters: Nonobstructing bilateral renal calculi measure up to 6 mm. Stomach and bowel: Question thickening of the rectal wall. The small bowel is mildly distended with fluid without obstruction. PELVIS: Appendix: No findings to suggest acute appendicitis. Bladder: Unremarkable. No stones. Reproductive: Unremarkable as visualized. ABDOMEN and PELVIS: Intraperitoneal space: Unremarkable. No free air. No significant fluid collection. Bones/joints: No acute fracture. No dislocation. Intervertebral disc spacers at L3-L4 L5-S1 posterior screws and rods. Soft tissues: Marked nonspecific body wall edema. Bilateral breast prosthesis are noted. Vasculature: Unremarkable. No abdominal aortic aneurysm. Lymph nodes: Unremarkable. No enlarged lymph nodes. IMPRESSION: 1. Question thickening of the rectal wall. This could be infectious, inflammatory or malignant. 2. The small bowel is mildly distended with fluid without obstruction. This could be related to ileus, infectious or inflammatory. 3. Marked nonspecific body wall edema. 4. Nonobstructing bilateral renal calculi measure up to 6 mm. 5. Cholelithiasis. 6. Mild hypertrophy of both adrenal glands. Interseptal thickening is concerning for pulmonary edema. 7. Trace bilateral pleural effusions. Interseptal thickening is concerning for pulmonary edema. Electronically signed by: Loida Nunez MD 01/13/24 00:49 AM
--- NOTE | 2024-01-13 01:12 | History & Physical Report ---
Date of Service January 12, 2024 Assessment & Plan (1) Shock: Plan: 73yo female with history of breast cancer on chemotherapy - follows with Dr. De Luna. Patient presenting from home with hypotension - BP 64/40 upon arrival to the ER. Patient is afebrile, no leukocytosis. She has a markedly elevated procalcitonin at 21.5 as well as elevated lactate at 10.2. Suspect septic shock + hypovolemia - patient appears dry on exam, anemia contributing as well - Hgb=5.2 Patient has been somewhat fluid responsive - improvement in systolic blood pressure to 80-90's following 2L crystalloid and 500mL Albumin Delay in admission time due to delay in repeat lactate level Neuro: Chronic pain -Continue home Oxycodone 10mg po q 6 hours as needed - patient was using it q 4 hours prior to arrival - adjust frequency as needed -Continue Duloxetine Cardiovascular: Patient with shock, as above, septic + hypovolemic. Elevation of troponin, No ST changes on EKG -Admit to MICU -Goal MAP > 65 -Transfusion 2u PRBCs once blood becomes available -Check random cortisol -Trend troponin -Limited echo ordered for AM to assess for WMA -Continue home Eliquis 5mg po BID for PAF -Continue Atorvastatin Pulmonary: adequate oxygenation on 1L NC for comfort -Continue Albuterol PRN No wheezing on exam - patient apparently requests inhaler frequently with no obvious symptoms Gastrointestinal: Patient with history of GERD. Mild elevation of OVN=642, GCI=325, Dbili=0.4. Normal AP and TBili. -Continue Protonix -Repeat LFTs in AM Genitourinary: history of GERD -Maintain Sage -Monitor UOP Hematology: Patient with breast cancer, anemia and thrombocytopenia present. Hgb=5.2, Hct=17.3 with normal MCV/MCH. No active blood loss reported by family. Patient has required transfusions in the past. -Transfuse 2u PRBCs when blood becomes available Endocrine: history of DM, Hypothyroidism. BSG elevated at present at 193. Last CykI5C=3.3 on 12/27/23 -Continue Lantus 15u qHS -ISS - goal blood sugar 110 - 180 -Check TSH -Continue Synthroid -Calcium gluconate x 3 amps given for low ionized calcium of 1.11 ID: Suspect sepsis, possible urinary source, possible skin -Follow cultures -Continue antibiotics for now - Vancomycin/Zosyn -Wound care (2) Lactic acidosis: (3) Anemia: (4) Breast cancer: (5) Elevated troponin: Admission and Anticipated Discharge Date Admission Date: January 12, 2024 History of Present Illness Chief Complaint: sepsis Primary Care Provider: Quinn Lovett MD Faith Solorzano is a 73yo female with history of metastatic breast carcinoma on chemotherapy presenting with sepsis. Patient does not provide details due to confusion. Daughter is at bedside and provides the history. Patient was admitted to [facility] from 12/26/23 - 01/01/24 after presenting with neck pain, debility and frequent falls. Patient was managed with pain medications. She was also treated with Ceftriaxone for a UTI. She was ultimately discharged to [facility] for ongoing rehab. Leah reports that she was sent home from [facility] on 01/09/24. On 01/10/24 PM patient was preparing tea in the microwave and she spilled hot water on her skin resulting in significant bunch on her left hand, LUE and LLE. Patient's controls her Oxycodone. Daughter reports that patient becomes confused at times with her pain medications. Over the last two days patient has become more confused. She has not been eating or drinking much. Daughter reports some loose stools as well. No reported fever or chills. Patient denies chest pain, abdominal pain, nausea, vomiting She does have some UTI symptoms with some blood in the urine. Upon arrival to the ER patient hypotensive with PB 66/40, HR, RR and oxygenation WNL Patient received 2L crystalloid and 500mL of Albumin Blood ordered - patient with antibodies present - blood is coming from [place] and is delayed Admitted to the MICU for presumed sepsis - hypotension, anemia, elevated lactate ER Course: NSS x 2000mL Zosyn 4.5gm Vancomycin 1750mg Calcium Gluconate x 3 gm NaHCO3 x 50mEq Albumin 500mL Allergies Allergy/AdvReac Type Severity Reaction Status Date / Time metformin AdvReac Intermediate RESTLESSNES Verified 12/26/23 14:11 S Home Medications Medication Instructions Recorded Confirmed Type blood sugar diagnostic ([email or web address] #100 ea 10/07/22 12/08/23 Rx Ultra Test strips) cyanocobalamin (vitamin B-12) 1,000 mcg IM MONTHLY #1 ea 10/07/22 12/26/23 Rx 1,000 mcg/mL injection kit OneTouch Delica Plus Lancet 33 #300 ea 01/09/23 12/08/23 Rx gauge (lancets) albuterol sulfate 90 mcg/actuation 2 puff inhalation Q4 PRN Shortness 02/24/23 12/26/23 Rx aerosol inhaler Of Breath Or Wheezing #8.5 grams insulin glargine 100 unit/mL 15 unit subcut QPM 02/28/23 12/26/23 History subcutaneous solution (Lantus U-100 Insulin) meclizine 25 mg tablet 25 mg PO DAILY PRN 02/28/23 12/29/23 History DIZZINESS/VERTIGO pen needle, diabetic 32 gauge x #100 ea 06/12/23 12/08/23 Rx 5/32" (Easy Comfort Pen [place]) levothyroxine 25 mcg tablet 37.5 mcg (1.5 x 25 mcg) PO QAM 07/30/23 12/26/23 Rx #135 tabs apixaban 5 mg tablet (Eliquis) 5 mg PO BID #60 tabs 09/16/23 12/26/23 Rx duloxetine 60 mg capsule,delayed 60 mg PO QAM 09/26/23 12/26/23 History release (Cymbalta) pantoprazole 40 mg tablet,delayed 40 mg PO QAM #90 tabs 10/07/23 12/26/23 Rx release (Protonix) atorvastatin 40 mg tablet 40 mg PO HS #90 tabs 10/14/23 12/26/23 Rx losartan 25 mg tablet 25 mg PO QAM 10/17/23 12/26/23 History oxycodone 10 mg tablet 10 mg PO UD PRN Pain 10/17/23 12/26/23 History phenazopyridine 95 mg tablet 95 mg PO TID PRN Urinary Pain 10/17/23 12/26/23 History potassium chloride 20 mEq 20 meq PO QAM 10/17/23 12/26/23 History tablet,extended release diltiazem HCl 360 mg capsule,24 360 mg PO QAM #90 caps 12/16/23 12/26/23 Rx hr,extended release (Tiazac) furosemide 20 mg tablet 20 mg PO DAILY #30 tabs 12/18/23 12/26/23 Rx nystatin 100,000 unit/gram topical 1 applic topical DAILY #30 grams 12/18/23 12/26/23 Rx powder doxazosin 2 mg tablet 2 mg PO DAILY 1 month #30 tabs 12/31/23 Rx Past Med/Surg History Problem List (Updated 01/13/24 @ 01:40 by Yolette Huang DO) Elevated troponin Lactic acidosis Shock Burn of thigh (Acute) Burn of hand (Acute) Degeneration of cervical intervertebral disc Weakness (Acute) Cervical strain (Acute) Pleural effusion (Acute) Bilateral edema of lower extremity (Acute) Frequent falls (Acute) Anticoagulant long-term use (Acute) Lymphedema Palliative care by specialist Anemia (Acute) Bilateral nephrolithiasis Hypokalemia Urinary tract infection (Acute) Nausea & vomiting (Acute) Acute dehydration (Acute) Metastases to the liver (Acute) Abdominal pain (Acute) Breast skin changes Microalbuminuria Hypothyroidism Pain due to interstitial cystitis Chronic diarrhea Recurrent UTI (urinary tract infection) Burning with urination MRSA (methicillin resistant staph aureus) culture positive (Acute) Diabetes type 2, controlled Chronic GERD Carpal tunnel syndrome on both sides with surgical intervention Anemia (Acute) Vitamin D deficiency Carpal tunnel syndrome of right wrist Leukopenia (Acute) Memory loss Metastatic breast cancer Anxiety Diabetic neuropathy pt denies Hyperglobulinemia Aortic valve stenosis Status post placement of cardiac pacemaker Anticoagulant long-term use Tachy-monica syndrome Atrial fibrillation follows with Dr Ramires Vitamin B12 deficiency (Chronic) Positive ESTEPHANIA (antinuclear antibody) (Chronic) Lumbar radiculopathy (Chronic) Lipodystrophy (Chronic) Gait disturbance (Chronic) Depression Constipation (Chronic) Arthritis (Chronic) Medical History Human metapneumovirus pneumonia Infected venous access port 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 History of blood transfusion Closed fracture of left distal fibula Breast cancer (12/18/15) "Abnormal left breast mammogram Status post core needle biopsy 12/18/2015 revealing infiltrating ductal carcinoma Estrogen receptor positive, progesterone receptor positive, HER-2/po negative Status post left needle localization lumpectomy and sentinel lymph node biopsy 01/04/2016 Stage pT1c pN0M0 Status post completion of radiation therapy 02/13/2016 received 3850 cGy utilizing accelerated partial breast irradiation." On 01/17/16 14:10 Deidre Orta wrote "Abnormal left breast mammogram Status post core needle biopsy 12/18/2015 revealing infiltrating ductal carcinoma Estrogen receptor positive, progesterone receptor positive, HER-2/po negative Status post left needle localization lumpectomy and sentinel lymph node biopsy 01/04/2016 Stage pT1c pN0M0" Generalized weakness Lung nodules monitoring Urinary frequency Pacemaker 2019, follows with Dr Ramires. checks Q6 months. Neuropathy Aortic stenosis Mild aortic stenosis (MERLENE 1.6cm2; MG 7.8mmHg) per 12/2019 echo Diabetes mellitus, type 2 IDDM Degenerative disc disease Hx of cardiac pacemaker Implanted 2019 (tachy-monica syndrome), [employer] device Follows with Dr. Ramires Liver mass Pt denies but 05/17/20 PET scan shows 2.5 right hepatic lobe mass consistent with known hepatic metastasis Anemia h/o blood transfusions Infiltrating ductal carcinoma of left breast Initial Dx 2015- s/p lumpectomy, XRT and anastrozole Metastatic breast cancer 03/2020, follows with [facility] Peripheral neuropathy Hands (B/L CTS) Obstructive sleep apnea "Resolved" s/p gastric bypass (? retested) Hypercholesterolemia Gastroesophageal reflux disease controlled, stable per pt Chronic pain Cervical spine disease Full ROM per pt Surgical History H/O breast biopsy (05/29/23) Skin, left breast, 2 punch biopsies: In office procedure Dr. Alvarez - Fibrosing dermatitis. - See comment Status post revision of total replacement of right knee History of removal of Port-a-Cath (01/11/22) Infected port right anterior chest removed Dr. Shah S/P cardiac pacemaker procedure 2019 History of surgery Right knee TKA revision with spacer (07/11/2021): SAB at L3-4 (x2 attempts) + PNB at [facility]. No issues noted per post-op anesthesia progress note. History of carpal tunnel surgery of left wrist 06/2021 History of carpal tunnel surgery of right wrist Port-A-Cath in place hx - 05/2020 since removed d/t infection at port 12/2021 History of colonoscopy History of evacuation of hematoma Hematoma right breast and right chest 08/31/13 Dr. Shah H/O bilateral hip replacements Status post repair of ventral hernia History of total knee arthroplasty R/L Status post total abdominal hysterectomy and bilateral salpingo-oophorectomy Status post lumbar spine surgery for decompression of spinal cord Status post partial mastectomy of left breast Status post panniculectomy History of section x1 Status post laparoscopic cholecystectomy Status post gastric bypass for obesity Status post arthroscopy of left shoulder Status post appendectomy Family History Unknown Breast cancer Emphysema lung Mother Diabetes Heart disease Father Heart disease Other No family history of adverse response to anesthesia Denies family history of Ovarian cancer Prostate cancer Coronary heart disease Colorectal cancer Social History Smoking Status: Never smoker Tobacco Type: Cigarettes packs per day: 2; Second Hand Exposure: No; Do You Dip or Chew Tobacco: No; Hx Alcohol Use: No Hx Substance Use: No Preferred Language: Thai Communication Ability: Effective Visual Impairment: No Limitations Hearing Ability: Normal 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 Beliefs That Will Affect Care: None marital status: Current Living Situation: Spouse Current Living Situation Comment: lives with current occupational status: retired Feels Safe at Home: Yes Childhood Exposure to Second-Hand Smoke: Yes Diet: diabetic caffeine: Yes Dental Care, Regularly: No Physical Activity Frequency: 1-2 Times per Week Seatbelt Use: always Sunscreen Use: No Assistive Devices: Denture - Upper, Denture - Lower, Glasses and Walker Review of Systems Review of Systems: All systems reviewed & are unremarkable except as noted in HPI & below Physical Exam Physical Exam: General: ill appearing female patient, restless, answers some questions appropr iately Skin: dressings in place from prior bunch, LUE, LLE HEENT: NC/AT, PERRL, EOMI, anicteric sclera, conjunctiva without injection, external ear normal to inspection and nontender, nares patent, dry mucus membranes, dentition intact, no oropharyngeal lesions, neck supple, trachea midline, no LAD, no thyromegaly, no JVD Heart: +S1/S2, irregular, paced, no m/r/g Lungs: equal air entry bilaterally, no rales/rhonchi/wheezes Abd: +BS, soft, NT/ND, no masses/organomegaly/ascites Ext: warm, no edema Neuro: grossly nonfocal. patient frequently asking for pain medication and sleeping pills Results & Data Results & Data Vital Signs (Past 12 Hours) Vital Signs Temp Pulse Pulse Resp BP BP Pulse Ox 01/13/24 00:00 60 01/12/24 23:33 01/12/24 23:15 36.6 C 60 22 125/52 L 98 01/12/24 22:46 36.9 C 01/12/24 22:12 60 22 94/54 L 100 01/12/24 22:06 60 22 90/43 L 100 01/12/24 21:33 60 22 89/52 L 97 01/12/24 21:30 60 22 89/52 L 100 01/12/24 21:18 83/55 L 01/12/24 21:18 60 22 83/55 L 97 01/12/24 21:06 60 22 91/50 L 100 01/12/24 20:51 60 22 91/50 L 100 01/12/24 20:30 97/45 L 01/12/24 20:30 61 22 97/45 L 97 01/12/24 20:15 60 21 67/49 L 100 01/12/24 19:57 60 24 99/61 L 100 01/12/24 19:30 104/42 L 01/12/24 19:30 65 22 104/42 L 100 01/12/24 19:18 93/41 L 01/12/24 19:18 62 20 95 01/12/24 19:16 79/49 L 01/12/24 19:16 79/49 L 01/12/24 19:16 79/49 L 01/12/24 19:03 60 20 93 01/12/24 19:01 82/46 L 01/12/24 19:01 82/46 L 01/12/24 18:57 60 22 91 01/12/24 18:53 60 20 81/41 L 95 01/12/24 18:46 81/41 L 01/12/24 18:46 81/41 L 01/12/24 18:45 60 22 98 01/12/24 18:30 74/46 L 01/12/24 18:28 60 18 74/46 L 100 01/12/24 18:24 60 20 99 01/12/24 17:55 60 01/12/24 17:45 76/44 L 01/12/24 17:39 37 C 60 18 66/40 L 95 O2 Del Method O2 Flow Rate 01/13/24 00:00 01/12/24 23:33 Nasal Cannula 1 01/12/24 23:15 Nasal Cannula 1 01/12/24 22:46 01/12/24 22:12 Nasal Cannula 1 01/12/24 22:06 1 01/12/24 21:33 1 01/12/24 21:30 01/12/24 21:18 01/12/24 21:18 1 01/12/24 21:06 1 01/12/24 20:51 01/12/24 20:30 01/12/24 20:30 1 01/12/24 20:15 1 01/12/24 19:57 1 01/12/24 19:30 01/12/24 19:30 Nasal Cannula 1 01/12/24 19:18 01/12/24 19:18 Room Air 01/12/24 19:16 01/12/24 19:16 01/12/24 19:16 01/12/24 19:03 Room Air 01/12/24 19:01 01/12/24 19:01 01/12/24 18:57 Room Air 01/12/24 18:53 Room Air 01/12/24 18:46 01/12/24 18:46 01/12/24 18:45 Room Air 01/12/24 18:30 01/12/24 18:28 Room Air 01/12/24 18:24 Room Air 01/12/24 17:55 01/12/24 17:45 01/12/24 17:39 Room Air Laboratory Results Laboratory Results WBC 5.19 K/ul (4.8-10.8) 01/12/24 18:15 RBC 1.83 M/uL (4.20-5.40) L 01/12/24 18:15 Hgb 5.2 g/dl (12.0-16.0) L* 01/12/24 18:15 POC Hgb 5.1 g/dl (12.0-16.0) L* 01/12/24 18:24 Hct 17.3 % (37.0-47.0) L* 01/12/24 18:15 POC Hct 15 % (37-47) L* 01/12/24 18:24 MCV 94.5 fL (80.0-100.0) 01/12/24 18:15 MCH 28.4 pg (25.0-34.0) 01/12/24 18:15 MCHC 30.1 g/dL (32.0-36.0) L 01/12/24 18:15 RDW Std Deviation 60.2 fL (36.4-46.3) H 01/12/24 18:15 RDW Coeff of Thompson 18.2 % (11.5-14.5) H 01/12/24 18:15 Plt Count 76 K/uL (130-400) L 01/12/24 18:15 MPV 12.9 fL (9.4-12.4) H 01/12/24 18:15 Immature Gran % (Auto) 0.6 % 01/12/24 18:15 Neut % (Auto) 66.4 % 01/12/24 18:15 Lymph % (Auto) 8.1 % 01/12/24 18:15 [place] % (Auto) 24.7 % 01/12/24 18:15 Eos % (Auto) 0.0 % 01/12/24 18:15 Baso % (Auto) 0.2 % 01/12/24 18:15 Neut # (Auto) 3.45 K/uL (1.40-6.50) 01/12/24 18:15 Lymph # (Auto) 0.42 K/uL (1.20-3.40) L 01/12/24 18:15 [place] # (Auto) 1.28 K/uL (0.11-0.59) H 01/12/24 18:15 Eos # (Auto) 0.00 K/uL (0.00-0.50) 01/12/24 18:15 Baso # (Auto) 0.01 K/uL (0.00-0.20) 01/12/24 18:15 Immature Gran # (Auto) 0.03 K/uL (0.01-0.20) 01/12/24 18:15 Absolute Nucleated RBC 0.13 K/uL (0.00-0.12) H 01/12/24 18:15 Nucleated RBC % (auto) 2.5 % 01/12/24 18:15 Polychromasia 1+ 01/12/24 18:15 Ovalocytes 1+ 01/12/24 18:15 Echinocytes 1+ 01/12/24 18:15 PT 17.4 Seconds (9.0-12.0) H 01/12/24 18:15 INR 1.7 (0.9-1.1) H 01/12/24 18:15 APTT 50 Seconds (21-31) H 01/12/24 18:15 PTT Ratio 1.9 01/12/24 18:15 VBG pH 7.21 (7.36-7.41) L 01/12/24 18:15 VBG pCO2 22 mmHg (38-50) L 01/12/24 18:15 VBG pO2 42 mmHg 01/12/24 18:15 VBG HCO3 9 mmol/L 01/12/24 18:15 VBG O2 Saturation < 60.0 % 01/12/24 18:15 VBG Base Excess -17.1 mEq/L 01/12/24 18:15 POC Sodium 134 mmol/L (135-144) L 01/12/24 18:24 Sodium 133 mmol/L (136-145) L 01/12/24 18:15 POC Potassium 4.3 mmol/L (3.3-5.0) 01/12/24 18:24 Potassium 4.3 mmol/L (3.5-5.1) 01/12/24 18:15 POC Chloride 108 mmol/L (101-112) 01/12/24 18:24 Chloride 107 mmol/L (98-107) 01/12/24 18:15 Carbon Dioxide 10 mmol/L (21-32) L 01/12/24 18:15 POC Total CO2 10 mmol/L (24-31) L 01/12/24 18:24 Anion Gap 16 (3-11) H 01/12/24 18:15 POC Anion Gap 22.0 mmol/L (16-25) 01/12/24 18:24 POC BUN 27 mg/dl (7-18) H 01/12/24 18:24 BUN 36 mg/dl (6-23) H 01/12/24 18:15 Creatinine 1.18 mg/dl (0.6-1.2) 01/12/24 18:15 POC Creatinine 1.2 mg/dl (0.6-1.3) 01/12/24 18:24 Est Cr Clr Drug Dosing 37.8 ml/min 01/12/24 18:15 Est GFR ( Amer) 52.2 ml/min 01/12/24 18:15 Est GFR (Non-Af Amer) 45.1 ml/min 01/12/24 18:15 BUN/Creatinine Ratio 30.5 (10-20) H 01/12/24 18:15 Glucose 193 mg/dl (70-99(Fasting)) H 01/12/24 18:15 POC Glucose 170 mg/dl (70-99) H 01/13/24 00:33 POC Glucose (other) 176 mg/dl (70-99) H 01/12/24 18:24 Lactate 8.8 mmol/L (0.4-2.0) H* 01/12/24 22:25 Calcium 7.5 mg/dl (8.6-10.3) L 01/12/24 18:15 POC Ioniz Calcium Janice 1.11 mmol/l (1.12-1.32) L 01/12/24 18:24 Magnesium 2.1 mg/dl (1.7-2.4) 01/12/24 18:15 Total Bilirubin 0.7 mg/dl (0.2-1.0) 01/12/24 18:15 Direct Bilirubin 0.4 mg/dl (0-0.2) H 01/12/24 18:15 AST 160 U/L (13-39) H 01/12/24 18:15 ALT 122 U/L (7-52) H 01/12/24 18:15 Alkaline Phosphatase 50 U/L (34-104) 01/12/24 18:15 Troponin I High Sens 56.4 pg/ml (0-14) H* 01/12/24 19:55 Total Protein 4.8 gm/dl (6.0-8.3) L 01/12/24 18:15 Albumin 2.8 gm/dl (3.4-5.0) L 01/12/24 18:15 Lipase 4 U/L (11-82) L 01/12/24 18:15 Procalcitonin 21.50 ng/ml (0-0.5) H 01/12/24 18:15 Urine Color Hortense 01/13/24 Unknown Urine Appearance Cloudy (Clear) A 01/13/24 Unknown Urine pH (4.5-7.5) 01/13/24 Unknown Ur Specific [place] 1.020 (1.000-1.030) 01/13/24 Unknown Urine Protein (Negative) 01/13/24 Unknown Urine Glucose (UA) (Negative) 01/13/24 Unknown Urine Ketones (Negative) 01/13/24 Unknown Urine Blood (Negative) 01/13/24 Unknown Urine Nitrite (Negative) 01/13/24 Unknown Urine Bilirubin (Negative) 01/13/24 Unknown Urine Urobilinogen (Negative) 01/13/24 Unknown Ur Leukocyte Esterase (Negative) 01/13/24 Unknown Urine WBC (Auto) >50 /hpf (0-5) 01/13/24 Unknown Urine RBC (Auto) >20 /hpf (0-4) 01/13/24 Unknown U Hyaline Cast (Auto) 3-5 /lpf (0-5) 01/13/24 Unknown U Epithel Cells (Auto) >20 /lpf (0-5) H 01/13/24 Unknown Urine Bacteria (Auto) 3+ (Negative) H 01/13/24 Unknown Nasal Screen MRSA (PCR) Negative (Negative) 01/12/24 23:29 Blood Type O Positive 01/12/24 19:55 Antibody Screen NEGATIVE 01/12/24 19:55 Crossmatch See Detail 01/12/24 19:55 Impressions Chest X-Ray 01/12/24 17:54 XR chest 1V portable CLINICAL HISTORY: Sepsis COMPARISON STUDY: Chest CT January 05, 2024. FINDINGS: Dual lead left subclavian pacer and left shoulder arthroplasty are in place. Cardiomegaly is unchanged. There is no evidence for pulmonary edema. There is no consolidation to suggest pneumonia. No pneumothorax or pleural effusion is present. IMPRESSION: No acute cardiopulmonary findings. ACT 112: Negative or not required by law. Electronically signed by: Eladio Keane M.D. 01/12/2024 6:26 PM Abdomen/Pelvis CT 01/12/24 21:48 Exam(s): CT ABDOMEN + PELVIS Without Contrast EXAM: CT Abdomen and Pelvis Without Intravenous Contrast CLINICAL HISTORY: Sepsis with elevated lactate. TECHNIQUE: Axial computed tomography images of the abdomen and pelvis without intravenous contrast. CTDI is 24 mGy and DLP is 1150 mGy-cm. Automated exposure control was utilized for the study. A dose lowering technique was utilized adhering to the principles of ALARA. COMPARISON: CT abdomen and pelvis 12/26/2023 FINDINGS: Lung bases: Interseptal thickening is concerning for pulmonary edema. Pleural space: Trace bilateral pleural effusions. ABDOMEN: Liver: Unremarkable. Gallbladder and bile ducts: Cholelithiasis. No ductal dilation. Pancreas: Unremarkable. No ductal dilation. Spleen: Unremarkable. No splenomegaly. Adrenals: Mild hypertrophy of both adrenal glands. No mass. Kidneys and ureters: Nonobstructing bilateral renal calculi measure up to 6 mm. Stomach and bowel: Question thickening of the rectal wall. The small bowel is mildly distended with fluid without obstruction. PELVIS: Appendix: No findings to suggest acute appendicitis. Bladder: Unremarkable. No stones. Reproductive: Unremarkable as visualized. ABDOMEN and PELVIS: Intraperitoneal space: Unremarkable. No free air. No significant fluid collection. Bones/joints: No acute fracture. No dislocation. Intervertebral disc spacers at L3-L4 L5-S1 posterior screws and rods. Soft tissues: Marked nonspecific body wall edema. Bilateral breast prosthesis are noted. Vasculature: Unremarkable. No abdominal aortic aneurysm. Lymph nodes: Unremarkable. No enlarged lymph nodes. IMPRESSION: 1. Question thickening of the rectal wall. This could be infectious, inflammatory or malignant. 2. The small bowel is mildly distended with fluid without obstruction. This could be related to ileus, infectious or inflammatory. 3. Marked nonspecific body wall edema. 4. Nonobstructing bilateral renal calculi measure up to 6 mm. 5. Cholelithiasis. 6. Mild hypertrophy of both adrenal glands. Interseptal thickening is concerning for pulmonary edema. 7. Trace bilateral pleural effusions. Interseptal thickening is concerning for pulmonary edema. Electronically signed by: Loida Nunez MD 01/13/24 00:49 AM Code Status & VTE Plan VTE Prophylaxis Plan VTE Prophylaxis will be ordered: Yes Critical Care Time 75 minutes of critical care time PG Care Time/CCT Total # of Minutes Spent Total Time Spent with Patient: Total time spent is greater than 50% in coordination of care (as documented) at patient's floor/unit and/or counseling patient: Coding Level of Care Code None Diagnoses Shock R57.9 Lactic acidosis E87.20 Anemia D64.9 Anemia type: unspecified type Malignant neoplasm of left female breast, unspecified estrogen receptor status, unspecified site of breast C50.912 Breast location: unspecified site of breast Estrogen receptor status: unspecified Patient sex: female Laterality: left Elevated troponin R79.89 (3) Anemia Anemia type: unspecified type Qualified Code(s): D64.9 - Anemia, unspecified (4) Breast cancer Breast location: unspecified site of breast Estrogen receptor status: unspecified Patient sex: female Laterality: left Qualified Code(s): C50.912 - Malignant neoplasm of unspecified site of left female breast
[2024-01-13 01:14] LABS: Color Urine Orange
[2024-01-13 01:15] LABS: Appearance Urine Cloudy (Clear)
[2024-01-13] MEDS: PLASMA-LYTE A 1,000 ML IV SCH (01:15)
[2024-01-13] MEDS ORDERED: ALBUTEROL HFA 8 GM INHALER INH PRN (01:15)
[2024-01-13 01:21] LABS: Bacteria Urine Automated 3+ (Negative); Epithelial Cell Urine Auto >20 /lpf (0-5); WBC Urine Automated >50 /hpf (0-5)
--- NOTE | 2024-01-13 01:21 | Critical Care Consultation ---
Date of Consultation January 13, 2024 Assessment & Plan (1) Severe sepsis: Impression: 73-year-old female With extensive past medical history including active metastatic breast cancer (on chemotherapy), atrial fibrillation (anticoagulated), DM type II, tachybradycardia syndrome (s/p pacemaker) presents to the ICU with severe sepsis, and anemia requiring blood transfusion. Neuro - [facility] ICU: Negative Anxiety/depressioncontinue Cymbalta Pain managementoxycodone Cardiac - Hypotensionlikely due to severe sepsis and hypovolemic shock. Seems to be improved following fluid resuscitation. No indication for vasopressor support at this time. Continued to maintain MAP greater than 65.Holding antihyp ertensives. Monitor closely HLDcontinue statin Atrial fibrillation/sinus bradycardia syndromecurrently paced rhythm on monitor. Hold Eliquis due to anemia. Respiratory - No history of pulmonary disease. Currently maintaining oxygen saturation on nasal cannula 1 L. She does have evidence of pulmonary edema on CT imaging but not overtly hypoxic. Likely due to aggressive fluid resuscitation with sepsis. Lasix on hold due to hypotension/sepsis. Continue to wean oxygen as tolerated. Continuous monitoring pulse ox GI - GERDPPI N.p.o. for now Significant transaminitis likely due to shock liver and hepatic mets. RENAL/LYTES - Creatinine within normal limits. Monitor routine BMPs and replete electrolytes as indicated. We will start the patient on sodium bicarb infusion due to acide jeison. Lactic acidosissignificantly elevated lactate of 10. Did obtain CT abdomen pelvis to rule out intra-abdominal source. Improving on repeat lab work. Continue to trend. Continue with fluid resuscitation. Treat underlying sepsis - Foleystrict I's and O's ENDO - DM type II Sliding scale/basal bolus. ICU hyperglycemic protocol Hypothyroidismcontinue Synthroid HEME - Anemiapatient presents with hemoglobin of 5.9. Antibodies detected on type and screen and blood currently in route from outside blood bank. If patient were to require additional transfusions may need transfer to tertiary center with central blood bank. Do not feel that this is the source of the patient's hypotension and likely related to chemotherapy as patient does require routine transfusions. No source of bleeding detected, and CT abdomen and pelvis unremarkable for hematoma. Hold anticoagulation. Will consult oncology given patient's advanced metastatic breast cancer. May need to check DIC labs. ID - Severe sepsispatient initially presenting with hypotension and significantly elevated procalcitonin of 20. Suspect urinary source but cannot rule out other etiologies at this point due to immunosuppression with chemotherapy in patient with metastatic breast cancer. - Urine cultures and blood cultures currently pending - Nasal MRSA negative. DC vancomycin. -Transfer position antibiotics to [facility], [place]. -Consult ID due to MSSA bacteremia LINES/IV ACCESS - Mediport accessed 01/11. DVT PROPHYLAXIS - [facility] Hematology oncologypatient has Stage IV metastatic breast cancer with mets to liver. Follows with oncology Dr. De Luna. Patient had progression of hepatic disease on Xeloda oral chemo which was stopped and started liposomal doxorubicin In November After Mediport was placed.. She is currently undergoing chemotherapy treatment CODE STATUS: Full code. Patient has failed follow-up with palliative in the past. May benefit from palliative consult while inpatient Will transfer out of ICU to PCU status. Discussed on multidisciplinary rounds. (2) Lactic acidosis: (3) Burn of thigh: (4) Burn of hand: (5) Anticoagulant long-term use: (6) Urinary tract infection: (7) Metastases to the liver: (8) Diabetes type 2, controlled: (9) Chronic GERD: (10) Atrial fibrillation: History of Present Illness Attending Physician: Yolette Huang DO History of Present Illness Patient is a 73-year-old female with past medical history significant for breast cancer with metastasis to the liver (currently on chemotherapy), DM type II, GERD, anemia, tachybradycardia syndrome (s/p pacemaker), atrial fibrillation (anticoagulated), anxiety and depression who presented to the emergency department earlier this evening with complaints of increased confusion over the past 2 days with little p.o. intake, loose stools, and urinary symptoms. Patient was recently admitted from 12/25 to 12/31 and was treated for UTI and discharged to [facility] for ongoing rehab. She was discharged home on 01/08. On 824 she spilled water on her skin after microwaving tea and received bunch to her lower extremities and the left hand. In the emergency department the patient was found to be hypotensive, and anemic. She regularly receives blood transfusions for anemia associated with chemotherapy and was most recently transfused earlier this month. Patient was noted to have elevated procalcitonin and lactic acid of 10. She was given IV fluids for resuscitation and albumin, blood is ordered but due to antibodies is being delivered from outside blood bank. Blood cultures and urine culture collected and she was started on broad-spectrum antibiotics. Patient's blood pressures remain soft and she is now admitted to ICU for vasopressor support. On arrival to the ICU the patient is alert, without acute distress. She reports some intermittent shortness of breath has been ongoing going for what she says a while. She has abdominal tenderness as well. She did undergo CT abdomen and pelvis which showed colitis and possible ileus. She denies headache or dizzin ess or changes in vision. She denies fevers cough or congestion. She denies chest pain or palpitations or swelling in feet. She does again report bunch to both ankles/feet and to her left hand for which she has been putting Vaseline on. She reports burning with urination over the past week. Allergies Allergy/AdvReac Type Severity Reaction Status Date / Time metformin AdvReac Intermediate RESTLESSNES Verified 12/26/23 14:11 S Home Medications Medication Instructions Recorded Confirmed Type blood sugar diagnostic (OneTouch #100 ea 10/07/22 12/08/23 Rx Ultra Test strips) cyanocobalamin (vitamin B-12) 1,000 mcg IM MONTHLY #1 ea 10/07/22 12/26/23 Rx 1,000 mcg/mL injection kit [employer] GigeiTouch Delica Plus Lancet 33 #300 ea 01/09/23 12/08/23 Rx gauge (lancets) albuterol sulfate 90 mcg/actuation 2 puff inhalation Q4 PRN Shortness 02/24/23 0 12/26/23 Rx aerosol inhaler Of Breath Or Wheezing #8.5 grams insulin glargine 100 unit/mL 15 unit subcut QPM 02/28/23 12/26/23 History subcutaneous solution (Lantus U-100 Insulin) meclizine 25 mg tablet 25 mg PO DAILY PRN 02/28/23 12/29/23 History DIZZINESS/VERTIGO pen needle, diabetic 32 gauge x #100 ea 06/12/23 12/08/23 Rx 5/32" (Easy Comfort Pen [place]) levothyroxine 25 mcg tablet 37.5 mcg (1.5 x 25 mcg) PO QAM 07/30/23 12/26/23 Rx #135 tabs apixaban 5 mg tablet (Eliquis) 5 mg PO BID #60 tabs 09/16/23 12/26/23 Rx duloxetine 60 mg capsule,delayed 60 mg PO QAM 09/26/23 12/26/23 History release (Cymbalta) pantoprazole 40 mg tablet,delayed 40 mg PO QAM #90 tabs 10/07/23 12/26/23 Rx release (Protonix) atorvastatin 40 mg tablet 40 mg PO HS #90 tabs 10/14/23 12/26/23 Rx losartan 25 mg tablet 25 mg PO QAM 10/17/23 12/26/23 History oxycodone 10 mg tablet 10 mg PO UD PRN Pain 10/17/23 12/26/23 History phenazopyridine 95 mg tablet 95 mg PO TID PRN Urinary Pain 10/17/23 12/26/23 History potassium chloride 20 mEq 20 meq PO QAM 10/17/23 12/26/23 History tablet,extended release diltiazem HCl 360 mg capsule,24 360 mg PO QAM #90 caps 12/16/23 12/26/23 Rx hr,extended release (Tiazac) furosemide 20 mg tablet 20 mg PO DAILY #30 tabs 12/18/23 12/26/23 Rx nystatin 100,000 unit/gram topical 1 applic topical DAILY #30 grams 12/18/23 12/26/23 Rx powder doxazosin 2 mg tablet 2 mg PO DAILY 1 month #30 tabs 12/31/23 Rx Patient History Medical History Human metapneumovirus pneumonia Infected venous access port 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 History of blood transfusion Closed fracture of left distal fibula Breast cancer (12/18/15) "Abnormal left breast mammogram Status post core needle biopsy 12/18/2015 revealing infiltrating ductal carcinoma Estrogen receptor positive, progesterone receptor positive, HER-2/po negative Status post left needle localization lumpectomy and sentinel lymph node biopsy 01/04/2016 Stage pT1c pN0M0 Status post completion of radiation therapy 02/13/2016 received 3850 cGy utilizing accelerated partial breast irradiation." On 01/17/16 14:10 Deidre Orta wrote "Abnormal left breast mammogram Status post core needle biopsy 12/18/2015 revealing infiltrating ductal carcinoma Estrogen receptor positive, progesterone receptor positive, HER-2/po negative Status post left needle localization lumpectomy and sentinel lymph node biopsy 01/04/2016 Stage pT1c pN0M0" Generalized weakness Lung nodules monitoring Urinary frequency Pacemaker 2019, follows with Dr Ramires. checks Q6 months. Neuropathy Aortic stenosis Mild aortic stenosis (MERLENE 1.6cm2; MG 7.8mmHg) per 12/2019 echo Diabetes mellitus, type 2 IDDM Degenerative disc disease Hx of cardiac pacemaker Implanted 2019 (tachy-monica syndrome), [employer] device Follows with Dr. Ramires Liver mass Pt denies but 05/17/20 PET scan shows 2.5 right hepatic lobe mass consistent with known hepatic metastasis Anemia h/o blood transfusions Infiltrating ductal carcinoma of left breast Initial Dx 2015- s/p lumpectomy, XRT and anastrozole Metastatic breast cancer 03/2020, follows with [facility] Peripheral neuropathy Hands (B/L CTS) Obstructive sleep apnea "Resolved" s/p gastric bypass (? retested) Hypercholesterolemia Gastroesophageal reflux disease controlled, stable per pt Chronic pain Cervical spine disease Full ROM per pt Surgical History H/O breast biopsy (05/29/23) Skin, left breast, 2 punch biopsies: In office procedure Dr. Alvarez - Fibrosing dermatitis. - See comment Status post revision of total replacement of right knee History of removal of Port-a-Cath (01/11/22) Infected port right anterior chest removed Dr. Shah S/P cardiac pacemaker procedure 2019 History of surgery Right knee TKA revision with spacer (07/11/2021): SAB at L3-4 (x2 attempts) + PNB at [facility]. No issues noted per post-op anesthesia progress note. History of carpal tunnel surgery of left wrist 06/2021 History of carpal tunnel surgery of right wrist Port-A-Cath in place hx - 05/2020 since removed d/t infection at port 12/2021 History of colonoscopy History of evacuation of hematoma Hematoma right breast and right chest 08/31/13 Dr. Shah H/O bilateral hip replacements Status post repair of ventral hernia History of total knee arthroplasty R/L Status post total abdominal hysterectomy and bilateral salpingo-oophorectomy Status post lumbar spine surgery for decompression of spinal cord Status post partial mastectomy of left breast Status post panniculectomy History of section x1 Status post laparoscopic cholecystectomy Status post gastric bypass for obesity Status post arthroscopy of left shoulder Status post appendectomy Family History Unknown Breast cancer Emphysema lung Mother Diabetes Heart disease Father Heart disease Other No family history of adverse response to anesthesia Denies family history of Ovarian cancer Prostate cancer Coronary heart disease Colorectal cancer Social History Smoking Status: Never smoker Tobacco Type: Cigarettes packs per day: 2; Second Hand Exposure: No; Do You Dip or Chew Tobacco: No; Hx Alcohol Use: No Hx Substance Use: No Preferred Language: Dutch Communication Ability: Effective Visual Impairment: No Limitations Hearing Ability: Normal Data Processing Supervisor Required: No Beliefs That Will Affect Care: None marital status: Current Living Situation: Spouse Current Living Situation Comment: lives with current occupational status: retired Feels Safe at Home: Yes Childhood Exposure to Second-Hand Smoke: Yes Diet: diabetic caffeine: Yes Dental Care, Regularly: No Physical Activity Frequency: 1-2 Times per Week Seatbelt Use: always Sunscreen Use: No Assistive Devices: Denture - Upper, Denture - Lower, Glasses and Walker Review of Systems Review of Systems: All systems reviewed & are unremarkable except as noted in HPI & below Physical Exam Constitutional: cooperative and comfortable; no acute distress Eyes: PERRL, conjunctivae normal, anicteric sclerae ENMT: external ear and nose normal, oropharynx normal Neck: trachea midline, no thyromegaly Respiratory: normal respiratory effort, lungs clear to auscultation Cardiovascular: RRR, no murmur, no edema Heart Sounds: normal S1 and normal S2; no murmur Extremities: no edema Gastrointestinal (Abdomen): normal bowel sounds, soft, nontender, no hepatosplenomegaly Musculoskeletal: no cyanosis or clubbing, extremities motor strength 5/5 Skin: What appears to be second-degree bunch to the lower extremities bilaterally around the ankle which is currently covered in bandages/Xeroform along with the left hand. Neurologic: PERRL, EOMI, accommodation nl, no face palsy, no dysarthria Psychiatric: A+Ox3, euthymic affect Results & Data Results & Data Vital Signs (Past 12 Hours) Vital Signs Temp Pulse Pulse Resp BP BP Pulse Ox 01/13/24 00:00 60 01/12/24 23:33 01/12/24 23:15 36.6 C 60 22 125/52 L 98 01/12/24 22:46 36.9 C 01/12/24 22:12 60 22 94/54 L 100 01/12/24 22:06 60 22 90/43 L 100 01/12/24 21:33 60 22 89/52 L 97 01/12/24 21:30 60 22 89/52 L 100 01/12/24 21:18 83/55 L 01/12/24 21:18 60 22 83/55 L 97 01/12/24 21:06 60 22 91/50 L 100 01/12/24 20:51 60 22 91/50 L 100 01/12/24 20:30 97/45 L 01/12/24 20:30 61 22 97/45 L 97 01/12/24 20:15 60 21 67/49 L 100 01/12/24 19:57 60 24 99/61 L 100 01/12/24 19:30 104/42 L 01/12/24 19:30 65 22 104/42 L 100 01/12/24 19:18 93/41 L 01/12/24 19:18 62 20 95 01/12/24 19:16 79/49 L 01/12/24 19:16 79/49 L 01/12/24 19:16 79/49 L 01/12/24 19:03 60 20 93 01/12/24 19:01 82/46 L 01/12/24 19:01 82/46 L 01/12/24 18:57 60 22 91 01/12/24 18:53 60 20 81/41 L 95 01/12/24 18:46 81/41 L 01/12/24 18:46 81/41 L 01/12/24 18:45 60 22 98 01/12/24 18:30 74/46 L 01/12/24 18:28 60 18 74/46 L 100 01/12/24 18:24 60 20 99 01/12/24 17:55 60 01/12/24 17:45 76/44 L 01/12/24 17:39 37 C 60 18 66/40 L 95 O2 Del Method O2 Flow Rate 01/13/24 00:00 01/12/24 23:33 Nasal Cannula 1 01/12/24 23:15 Nasal Cannula 1 01/12/24 22:46 01/12/24 22:12 Nasal Cannula 1 01/12/24 22:06 1 01/12/24 21:33 1 01/12/24 21:30 01/12/24 21:18 01/12/24 21:18 1 01/12/24 21:06 1 01/12/24 20:51 01/12/24 20:30 01/12/24 20:30 1 01/12/24 20:15 1 01/12/24 19:57 1 01/12/24 19:30 01/12/24 19:30 Nasal Cannula 1 01/12/24 19:18 01/12/24 19:18 Room Air 01/12/24 19:16 01/12/24 19:16 01/12/24 19:16 01/12/24 19:03 Room Air 01/12/24 19:01 01/12/24 19:01 01/12/24 18:57 Room Air 01/12/24 18:53 Room Air 01/12/24 18:46 01/12/24 18:46 01/12/24 18:45 Room Air 01/12/24 18:30 01/12/24 18:28 Room Air 01/12/24 18:24 Room Air 01/12/24 17:55 01/12/24 17:45 01/12/24 17:39 Room Air Diagnostic Findings EXAM: CT Abdomen and Pelvis Without Intravenous Contrast CLINICAL HISTORY: Sepsis with elevated lactate. TECHNIQUE: Axial computed tomography images of the abdomen and pelvis without intravenous contrast. CTDI is 24 mGy and DLP is 1150 mGy-cm. Automated exposure control was utilized for the study. A dose lowering technique was utilized adhering to the principles of ALARA. COMPARISON: CT abdomen and pelvis 12/26/2023 FINDINGS: Lung bases: Interseptal thickening is concerning for pulmonary edema. Pleural space: Trace bilateral pleural effusions. ABDOMEN: Liver: Unremarkable. Gallbladder and bile ducts: Cholelithiasis. No ductal dilation. Pancreas: Unremarkable. No ductal dilation. Spleen: Unremarkable. No splenomegaly. Adrenals: Mild hypertrophy of both adrenal glands. No mass. Kidneys and ureters: Nonobstructing bilateral renal calculi measure up to 6 mm. Stomach and bowel: Question thickening of the rectal wall. The small bowel is mildly distended with fluid without obstruction. PELVIS: Appendix: No findings to suggest acute appendicitis. Bladder: Unremarkable. No stones. Reproductive: Unremarkable as visualized. ABDOMEN and PELVIS: Intraperitoneal space: Unremarkable. No free air. No significant fluid collection. Bones/joints: No acute fracture. No dislocation. Intervertebral disc spacers at L3-L4 L5-S1 posterior screws and rods. Soft tissues: Marked nonspecific body wall edema. Bilateral breast prosthesis are noted. Vasculature: Unremarkable. No abdominal aortic aneurysm. Lymph nodes: Unremarkable. No enlarged lymph nodes. IMPRESSION: 1. Question thickening of the rectal wall. This could be infectious, inflammatory or malignant. 2. The small bowel is mildly distended with fluid without obstruction. This could be related to ileus, infectious or inflammatory. 3. Marked nonspecific body wall edema. 4. Nonobstructing bilateral renal calculi measure up to 6 mm. 5. Cholelithiasis. 6. Mild hypertrophy of both adrenal glands. Interseptal thickening is concerning for pulmonary edema. 7. Trace bilateral pleural effusions. Interseptal thickening is concerning for pulmonary edema. Electronically signed by: Loida Nunez MD 01/13/24 00:49 AM Coding Level of Care Code 66138 IN/OBS CONSULT LVL 4,60M Diagnoses Severe sepsis A41.9; R65.20 Lactic acidosis E87.20 Burn of thigh T24.019A Burn of hand T23.009A Anticoagulant long-term use Z79.01 Urinary tract infection N30.01 Hematuria presence: with hematuria Urinary tract infection type: acute cystitis Metastases to the liver C78.7 Controlled type 2 diabetes mellitus without complication, with long-term current use of insulin E11.9; Z79.4 Diabetes mellitus complication status: without complication Diabetes mellitus skilled nursing insulin use: with buttermaker use Chronic GERD K21.9 Atrial fibrillation, unspecified type I48.91 Atrial fibrillation type: unspecified Time Spent (min) 50 (6) Urinary tract infection Hematuria presence: with hematuria Urinary tract infection type: acute cystitis Qualified Code(s): N30.01 - Acute cystitis with hematuria (8) Diabetes type 2, controlled Diabetes mellitus complication status: without complication Diabetes mellitus buttermaker insulin use: with skilled nursing use Qualified Code(s): E11.9 - Type 2 diabetes mellitus without complications; Z79.4 - exterminator (current) use of insulin (10) Atrial fibrillation Atrial fibrillation type: unspecified Qualified Code(s): I48.91 - Unspecified atrial fibrillation
[2024-01-13 01:22] LABS: RBC Urine Automated >20 /hpf (0-4)
[2024-01-13] MEDS ORDERED: GLUCOSE 10 TAB/TUBE PO PRN ×2 (01:45→02:01)
[2024-01-13] MEDS ORDERED: GLUCAGON FOR INJ 1 MG VIAL IM PRN (01:45)
[2024-01-13] MEDS ORDERED: DEXTROSE 50% 50 ML SYRINGE IV PRN ×2 (01:45→02:01)
[2024-01-13] MEDS ORDERED: GLUCOSE 40% GEL 15 GM TUBE PO PRN ×2 (01:45→02:01)
[2024-01-13] MEDS ORDERED: GLUCAGON FOR INJ 1 MG VIAL SQ PRN (02:01)
[2024-01-13] MEDS ORDERED: CARBOHYDRATES FOR HYPOGLYCEMIA PO PRN (02:01)
--- NOTE | 2024-01-13 02:11 | Billing Data ---
Date of Service January 13, 2024 Coding Level of Care Code 79136 CRITICAL CARE
[2024-01-13] MEDS: INSULIN ASPART PER UNIT CHARGE SC SCH (05:58)
[2024-01-13 06:32] LABS: BUN Creatinine Ratio 36.6 (10-20); Calcium 7.8 mg/dl (8.6-10.3); Est GFR (African American) 55.6 ml/min
[2024-01-13] MEDS: LEVOTHYROXINE SODIUM 25 MCG TABLET PO SCH (06:32)
[2024-01-13 06:38] LABS: Bilirubin Direct 0.5 mg/dl (0-0.2); Bilirubin,Total 0.9 mg/dl (0.2-1.0); Total Protein 4.8 gm/dl (6.0-8.3); Troponin I High Sensitivity 56.2 pg/ml (0-14)
--- OUTSIDE RECORDS SUMMARY | 2024-01-13 07:04 | External Medical Summary | Summary of Care ---
Author Name Unknown Organization [facility] Address [address] [facility] [facility] [place] [address] Phone [phone] Care Team Providers Care Mill Stenciler Name Role Phone Quinn Lovett MD Primary Care Provi huy Encounter Details Date Type Department Care Team (Late st Contact Info) Description 01/12/2024 Telephone [facility], [address] [place] [address] Jennifer Villar PA-C [address] [place] [address] Allergies Active Allergy Reactions Criticality Noted Date Comments Metformin High 11/07/2020 insomnia Other Reaction(s): Insomnia, RESTLESSNESS, Unknown documented as of this encounter (statuses as of 01/12/2024) Medications Medication Sig Dispensed Refills Start Date End Date Status MULTIVITAMINS PO CAPS Take 1 Capsule by mouth in the morning. Active Cholecalciferol (VITAMIN D) 25 MCG (1000 UT) TABS 1 Tablet in the morning. Active Acetaminophen 500 MG Oral Tablet (Tylenol) Take 2 Tablets by mouth every 6 hours as needed. 100 Tablet 10/11/2021 Active Meclizine HCl 25 MG Oral Tablet (Antivert) Take 1 Tablet by mouth every 6 hours as needed for Dizziness. 30 Tablet 1 10/11/2021 Active Atorvastatin Calcium 40 MG Oral Tablet (Lipitor) Take by mouth 1 Tablet before bedtime. 30 Tablet 10/19/2021 Active DULoxetine HCl 60 MG Oral Capsule Delayed Release Particles (Cymbalta)Indications :Depression with anxiety Take by mouth 1 Capsule in the morning. Take with 30 mg for total daily dose of 90 mg.. 30 Capsule 10/19/2021 Active Pantoprazole Sodium 40 MG Oral Tablet Delayed Release (Protonix) Take by mouth 1 Tablet in the morning. 30 Tablet 10/19/2021 Active Apixaban 5 MG Oral Tablet (Eliquis)Indications: Paroxysmal atrial fibrillation (HCC) Take by mouth 1 Tablet in the morning AND 1 Tablet before bedtime. 60 Tablet 10/19/2021 Active Levothyroxine Sodium 75 MCG Oral Tablet (Levoxyl)Indications: Acquired hypothyroidism Take by mouth 0.5 Tablets in the morning. 15 Tablet 10/19/2021 Active OneTouch Ultra In Vitro Strip (Glucose Blood) Test as directed. Active OneTouch Delica Plus [id number] Use as directed. Active Denosumab 60 MG/ML Subcutaneous Solution Prefilled Syringe (Prolia) Inject 60 mg under the skin every 6 months. Active Potassium Chloride ER 20 MEQ Oral Tablet Extended Release Take 1 Tablet by mouth in the morning. Active Proventil HFA 108 (90 Base) MCG/ACT Inhalation Aerosol SolutionIndications:a s needed Inhale 2 Puffs by mouth every 4 hours as needed for Dyspnea. Active Insulin Glargine Solostar 100 UNIT/ML Subcutaneous Solution Pen-injector (Aidenagllesa Servin)Indications:T ype 2 diabetes mellitus with hemoglobin A1c goal of less than 7.0% (HCC) Inject 15 Units under the skin every evening. 01/01/2024 Active dilTIAZem HCl ER Beads 360 MG Oral Capsule Extended Release 24 Hour (Tiazac) Take 1 Capsule by mouth in the morning. 01/01/2024 Active Phenazopyridine HCl 95 MG Oral Tablet Take 1 Tablet by mouth 3 times a day as needed (urinary discomfort). After meals. 01/01/2024 Active Cyanocobalamin 1000 MCG/ML Injection Solution (Cyanocobalamin) Inject 1,000 mcg as directed every 30 days. 01/01/2024 Active Furosemide 20 MG Oral Tablet (Lasix) Take 1 Tablet by mouth in the morning. 01/01/2024 Active Losartan Potassium 25 MG Oral Tablet (Cozaar) Take 1 Tablet by mouth in the morning. 01/01/2024 Active Nystatin 903782 UNIT/GM External Cream Apply topically to affected area daily. To affacted area for two weeks. 01/01/2024 Active oxyCODONE HCl 10 MG Oral Tablet (Roxicodone)Indicatio ns:Primary malignant neoplasm of breast with metastasis (HCC) Take 1 Tablet by mouth every 4 hours as needed for Pain, Moderate or Pain, Severe. Ongoing therapy 18 Tablet 01/05/2024 Active Biofreeze Cool The Pain 4 % External Gel (Menthol (Topical Analgesic)) Apply topically to affected area. Apply to knees 3x daily Active cycloSPORINE 0.05 % Ophthalmic Emulsion (Restasis) 1 Drop in the morning and 1 Drop before bedtime. Active First-Mouthwash BLM Mouth/Throat Suspension Swish and spit 5 mL in the morning and 5 mL before bedtime. Active Melatonin 3 MG Oral Tablet Take 1 Tablet by mouth at bedtime as needed for Sleep. Active Doxazosin Mesylate 2 MG Oral Tablet (Cardura)Indications: HTN, goal below 140/80 Take 1 Tablet by mouth in the morning. 30 Tablet 01/08/2024 Active Nitrofurantoin Monohyd Macro 100 MG Oral Capsule (Macrobid) Take 1 Capsule by mouth in the morning and 1 Capsule before bedtime. Until 01/14/24. 01/08/2024 01/14/2024 Active Hospital, Clinic, or Other Facility Administered Medication Ordered Dose Route Frequency Start Date End Date Status hEParin 10,000 Units, bupivacaine (Sensorcaine) 30 mL, methylPREDNISolone sodium succ (SOLU-Medrol) 125 mg, gentamicin 80 mg, sodium bicarbonate 2 mEq bladder instillationIndications:Pelvi c pain in female,Nocturia,Urinary frequency,Urinary urgency,Chronic bladder pain IS QWEEK 05/05/2023 Active documented as of this encounter (statuses as of 01/12/2024) Active Problems Problem Noted Date Diagnosed Date Primary malignant neoplasm of breast with metast asis 01/01/2024 Vitamin B12 deficiency 01/01/2024 Anemia due to antineoplastic chemotherapy 2023 Aortic valve stenosis 01/01/2024 Moderate episode of recurrent major depressive d isorder 01/01/2024 Chronic narcotic use 01/01/2024 ICD (implantable cardioverter-defibrillator) in place 01/01/2024 Malignant neoplasm of nipple and areola, left [...] as of this encounter (statuses as of 01/12/2024) Resolved Problems Problem Noted Date Diagnosed Date Resolved Date 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 Intermediate susceptibility. Urine culture forwarded to PCP's office to address further. Jennifer Villar PA-C documented in this encounter Plan of Treatment Health Maintenance Due Date Last Done Comments DXA Scan 1950 Depression Monitoring 1960 Albumin/Creatinine Ratio 01/25/1966 Diabetic Foot Exam 01/25/1966 Hepatitis C Screening 01/25/1966 DTaP,Tdap,and Td Vaccines (1 - Tdap) 01/25/1967 HbA1c 12/08/2008 06/10/2008, 02/21/2006 TSH 06/10/2009 06/10/2008, 02/20/2006 Zoster Vaccines (2 of 2) 09/24/2017 07/30/2017, 07/17 COVID-19 Vaccine ( season) 2023 05/24/2022, 06/08/2021, 08/02/2020, Additional history exists Influenza Vaccine (FLU shot) (#1) 2024 03/08/2019, 06/16/2014 Diabetic Eye Exam 04/14/2024 04/14/2023, , 02/09/2019, Additional history exists GFR 12/07/2024 12/08/2023, 09/17, 11/22/2020, Additional history exists Pneumococcal Vaccine: 65+ Years Completed 07/30/2019, 09/21/2015, 06/16/2014 HPV (Gardasil) Vaccine Aged Out No lo nger eligible based on patient's age to complete this topic Hepatitis B Vaccine Aged Out No longe r eligible based on patient's age to complete this topic MENINGOCOCCAL (MENACTRA/MENVEO) Aged Out No longer eligible based on patient's age to complete this topic documented as of this encounter Medical Devices Implanted Type Area Air Brake Tester Device Identifier Shelf Expiration Date Model / Serial / Lot Mesh Hernia Synt [id number] - [id number] Implanted:Qty: 1 on 10/01/2010 at [facility] Abdomen [employer] 03/19/2013 [id number] / / [id number] Description:kyle crawford documented as of this encounter Additional Health Concerns Infection Onset Date Last Indicated Resolved Time ESBL 01/07/2024 01/07/2024 documented as of this encounter Advance Directives * Full Code (Latest Code Status on File) Date Activated Date Inactivated Comments 12/12/2023 11:14 AM 12/12/2023 4:26 PM This order reflects the patients wishes and were consensually agreed upon. Question Answer Comments Discussion of Advance Directives occurred with: Patient * Full Code Date Activated Date Inactivated Comments 03/24/2020 11:23 AM 03/24/2020 5:12 PM This order reflects the patients wishes and were consensually agreed upon. * Full Code Date Activated Date Inactivated Comments 10/01/2010 9:20 AM 10/03/2010 10:01 PM Question Answer Comments Discussion of Advance Directives occurred with: Not Discussed * Full Code Date Activated Date Inactivated Comments 10/01/2010 6:05 AM 10/01/2010 9:20 AM This order r eflects the patients wishes and were consensually agreed upon. * Full Code Date Activated Date Inactivated Comments 09/26/2008 3:10 PM 09/28/2008 4:20 PM Care Teams Mill Stenciler Relationship Specialty Start Date End Date Quinn Lovett MD [address] [place] [address] [place] [address] PCP - General Internal Medicine 01/06/17 documented as of this encounter
--- OUTSIDE RECORDS SUMMARY | 2024-01-13 07:04 | External Medical Summary ---
Author Name Unknown Address Unknown Organization [id number]:[facility] - [address] [facility] [address] Laboratory Report Ordering Provider Test Date Status LISSETH PELLETIER 01/07/2024 20:20:00 Final <10,000 colonies/ml mixed no rmal austen Observation Date Value Abnormality Reference (Units ) Status Bacteria identified in Specimen by Culture 01/07/2024 20:20:00 [id number]^KLEBSIELL A PNEUMONIAE ESBL Abnormal Final 10,000 to 100,000 colonies/m L Klebsiella pneumoniae ESBL producing organism, This patient may require isolation.
This gram negative bacilli displays in vitro resistance to multiple antibiotics. This patient may require isolation. Carbapenem use is preferred. Contact infectious disease service for further recommendations. Performing Location [facility] - [address] [facility] [place] [address] Ordering Provider Test Date Status LISSETH PELLETIER 01/07/2024 20:20:00 Final Observation Date Value Abnormality Reference (Units ) Status Ampicillin + Sulbactam 01/07/2024 20:20:00 >=32 Resistant Final Cefazolin 01/07/2024 20:20:00 >=64 Resistant Final Cefepime susceptibility 01/07/2024 20:20:00 Susceptible Final This is an appended report. These results have been appended to a previously preliminary verified report. Ceftriaxone suceptibility 01/07/2024 20:20:00 >=64 Resi stant Final Ciprofloxacin 01/07/2024 20:20:00 0.5 Intermediate Final Due to serious side effects, the FDA has advised against using Ciprofloxacin to treat uncomplicated UTIs and respiratory tract infections unless there are no alternative treatment options. Gentamicin susceptibility 01/07/2024 20:20:00 >=16 Resi stant Final Levofloxacin susceptibility 01/07/2024 20:20:00 1 In termediate Final Due to serious side effects, the FDA has advised against using Levofloxacin to treat uncomplicated UTIs and respiratory tract infections unless there are no alternative treatment options. Meropenem [Susceptibility] 01/07/2024 20:20:00 <=0.25 Ashley ceptible Final Nitrofurantoin susceptibility 01/07/2024 20:20:00 64 Intermediate Final Piperacillin + Tazobactamsusceptibility 01/07/2024 20:20:00 8 Susceptible Final Tobramycinsusceptibility 01/07/2024 20:20:00 8 Resis tant Final TMP-SMZ susceptibility 01/07/2024 20:20:00 >=320 Resista nt Final Performing Location [facility] - [address] [facility] [place] [address] Ordering Provider Test Date Status LISSETH PELLETIER 01/07/2024 20:20:00 Final Observation Date Value Abnormality Reference (Units ) Status Ertapenem [Susceptibility] 01/07/2024 20:20:00 28 Susceptible Susceptible >21 , Intermediate <=21 , Resistant <=18 Final Test: Culture, Urine, Quanti tative
Specimen Source: Urine, Unspecified
Specimen Type: Urine
Specimen Date: 01/07/20242019
Result Date: 01/11/2024 1507
Result Status: Final result
Abnormal: Yes
Resulting Lab: [facility]
[address]
[facility] [address]

CULTURE

10,000 to 100,000 colonies/mL Klebsiella pneumoniae ESBL producing organism,
This patient may require isolation. (Abnormal)

This gram negative bacilli displays in vitro resistance to multiple
antibiotics. This patient may require isolation. Carbapenem use is
preferred. Contact infectious disease service for further recommendations.

<10,000 colonies/ml mixed normal austen

SUSCEPTIBILITY

Klebsiella pneumoniae ESBL producing
organism, This patient may require
isolation.
METHOD BRANDON TRUJILLO

AMPICILLIN/SULBACTAM
CEFAZOLIN
CEFEPIME
CEFTRIAXONE
CIPROFLOXACIN
ERTAPENEM 28 Susceptible
GENTAMICIN
LEVOFLOXACIN
MEROPENEM
NITROFURANTOIN
PIPERACILLIN TAZOBACTAM
TOBRAMYCIN
TRIMETH/SULFAMETHOXAZOLE

Klebsiella pneumoniae ESBL producing
organism, This patient may require
isolation.
METHOD MICROBROTH DILUTIONS

AMPICILLIN/SULBACTAM >=32 Resistant
CEFAZOLIN >=64 Resistant
CEFEPIME -- Susceptible - Dose Dependent
[1]
CEFTRIAXONE >=64 Resistant
CIPROFLOXACIN 0.5 Intermediate [2]
ERTAPENEM
GENTAMICIN >=16 Resistant
LEVOFLOXACIN 1 Intermediate [3]
MEROPENEM <=0.25 Susceptible
NITROFURANTOIN 64 Intermediate
PIPERACILLIN TAZOBACTAM 8 Susceptible
TOBRAMYCIN 8 Resistant
TRIMETH/SULFAMETHOXAZOLE >=320 Resistant

[1] This is an appended report. These results have been appended to a
previously preliminary verified report.

[2] Due to serious side effects, the FDA has advised against using
Ciprofloxacin to treat uncomplicated UTIs and respiratory tract infections
unless there are no alternative treatment options.

[3] Due to serious side effects, the FDA has advised against using
Levofloxacin to treat uncomplicated UTIs and respiratory tract infections
unless there are no alternative treatment options.

null Performing Location [facility] - [facility] [address] [facility] [address] [facility] [place] [address]
[2024-01-13] MEDS ORDERED: ICU Protocol for HYPERglycemia SCH (07:30)
[2024-01-13] MEDS: DULoxetine HCL 60 MG CAP PO SCH (08:43)
[2024-01-13] MEDS: oxyCODONE HCL IR 5 MG TAB (IMMEDIATE RELEASE) PO PRN (08:43)
[2024-01-13] MEDS: PHENAZOPYRIDINE HCL 100 MG TAB PO PRN (08:43)
[2024-01-13] MEDS: PANTOprazole 40 MG TAB PO SCH (08:44)
[2024-01-13] MEDS: VANCOMYCIN HCL 1,000 MG in SODIUM CHLORIDE 0.9% 250 ML IV SCH (08:44)
[2024-01-13] MEDS: DOXAZosin MESYLATE TAB 2 MG TAB PO SCH (08:44)
[2024-01-13 09:28] LABS: A calco-baum cmplx NotReported Not Detected (NotDetected); Bact fragilis Not Reported Not Detected (NotDetected); Blood Culture Id Panel See PCR Comment (NotDetected); C auris Not Reported Not Detected (NotDetected); Calbicans Not Reported Not Detected (NotDetected); Candida glabrata Not Reported Not Detected (NotDetected); Candida krusei Not Reported Not Detected (NotDetected); Cneoformans/gatti Not Reported Not Detected (NotDetected); Cparapsilosis Not Reported Not Detected (NotDetected); E cloacae compx Not Reported Not Detected (NotDetected); Efaecalis Not Reported Not Detected (NotDetected); Efaecium Not Reported Not Detected (NotDetected); Enterobacterales Not Reported Not Detected (NotDetected); Escherichia coli Not Reported Not Detected (NotDetected); H influenzae Not Reported Not Detected (NotDetected); K aerogenes Not Reported Not Detected (NotDetected); Koxytoca Not Reported Not Detected (NotDetected); Kpneumoniae grp Not Reported Not Detected (NotDetected); Lmonocyt Not Reported Not Detected (NotDetected); N meningitidis Not Reported Not Detected (NotDetected); P aeruginosa Not Reported Not Detected (NotDetected); Proteus spp Not Reported Not Detected (NotDetected); Salmonella spp Not Reported Not Detected (NotDetected); Staph lugdunensis Not Reported Not Detected (NotDetected); Staph spp. Not Reported DETECTED (NotDetected); Staphaureus Not Reported DETECTED (NotDetected); Staphepi Not Reported Not Detected (NotDetected); Staphylococcus spp. DETECTED (NotDetected); Stenmaltophilia Not Reported Not Detected (NotDetected); Strep agal(GrpB) Not Reported Not Detected (NotDetected); Strep pneum Not Reported Not Detected (NotDetected); Strep pyog (GrpA) Not Reported Not Detected (NotDetected); Strep spp Not Reported Not Detected (NotDetected); mecAC+MREJ Resistant Gene MRSA Not Detected (NotDetected)
[2024-01-13] MEDS: LACTATED RINGER'S 250 ML IV ONE (10:00)
[2024-01-13 10:09] LABS: INR 2.2 (0.9-1.1); Prothrombin Time 22.1 Seconds (9.0-12.0)
[2024-01-13] MEDS: ceFAZolin 2000MG 2,000 MG/15 ML SYR IV SCH (10:39)
[2024-01-13] MEDS: NA BICARBONATE 8.4% 150 MEQ in D5W 1,000 ML IV SCH (10:39)
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
[2024-01-13 12:06] LABS: Anisocytosis Present; Basophils # (auto) 0.09 K/uL (0.00-0.20); Basophils % (auto) 1.3 %; Dohle Bodies 1+; Echinocytes 1+; Hematocrit (blood only) 26.2 % (37.0-47.0); Hemoglobin 8.6 g/dl (12.0-16.0); Immature Granulocytes # (auto) 0.12 K/uL (0.01-0.20); Immature Granulocytes % (auto) 1.7 %; Lymphocytes # (auto) 0.56 K/uL (1.20-3.40); Lymphocytes % (auto) 7.9 %; Mean Corpuscular Hemoglobin 29.6 pg (25.0-34.0); Mean Corpuscular Hgb Conc 32.8 g/dL (32.0-36.0); Monocytes # (auto) 0.91 K/uL (0.11-0.59); Monocytes % (auto) 12.9 %; Neutrophils # (auto) 5.37 K/uL (1.40-6.50); Neutrophils % (auto) 76.2 %; Nucleated RBC # (auto) 0.32 K/uL (0.00-0.12); Nucleated RBC % (auto) 4.5 %; Ovalocytes 1+; Platelet Count 60 K/uL (130-400); Platelet Estimate Decreased (Normal); Polychromasia 1+; RDW Coefficient of Variation 16.5 % (11.5-14.5); Red Blood Count 2.91 M/uL (4.20-5.40); White Blood Count 7.05 K/ul (4.8-10.8)
[2024-01-13] MEDS: NYSTATIN POWDER 15GM BTL EXT SCH (12:38)
[2024-01-13] MEDS: PHYTONADIONE 10 MG in DEXTROSE 5% 50 ML IV ONE (12:39)
--- NOTE | 2024-01-13 12:43 | XCELERA ---
[id number] [id number]
[2024-01-13] MEDS: ERTAPENEM SODIUM 1,000 MG in SYRINGE 0 ML IV SCH (14:51)
--- NOTE | 2024-01-13 15:40 | Hospitalist Progress Note ---
Date of Service January 13, 2024 Assessment & Plan (1) Shock: Plan: 73yo female with history of breast cancer metastatic to liver, on chemotherapy - follows with Dr. De Luna. elevated procalcitonin at 21.5 as well as elevated lactate at 10.2. Suspect septic shock did have ESBL Klebsiella outpt 01/06, sensitive to Ertapenem only, blood cultures with MSSA, TTE no vegetation, moderate , but ID feels with amount of hardware and pacemaker, JOSE maybe indicated at this time appropriate random cortisol (2) Anemia: Plan: unclear if anemia secondary to chemotherapy, chronic inflammation, or recent acute blood loss has h/o chronic iliopsoas bleed bolus iv protonix hgb augmented with transfusion 5.2 to 8.6 (3) Breast cancer: Plan: metastatic breast cancer with biopsy proved metastatic disease to liver expanding recently 5.7x3 cm inr is elevated without ac Transaminitis, pt has marked elevation, probably from shock liver in addition to structural liver disease holding transaminitis pt is on chronic opiates for metastatic pain duloxetine for depression and pain management (4) Atrial fibrillation: Plan: pt is chronically anticoagulated with Eliquis, however has elevated INR likely due to liver disease, will hold Anticoagulation troponin ranged from 56 to 61, suspect demand ischemia in face of sepsis, not suspecting ACS (5) Diabetes type 2, controlled: Plan: history of DM, Last [id number]=8.3 on 12/27/23 -Continue Lantus 15u qHS -ISS - goal blood sugar 110 - 180 -Calcium gluconate x 3 amps given for low ionized calcium of 1.11 Plan overall outlook is guarded Admission and Anticipated Discharge Date Admission Date: January 12, 2024 Subjective pt is mildly confused, no focal pain although has history of same looks chronically ill still on bicarb gtt, Physical Exam Physical Exam: pt appears chronically ill has off color, bilirubin is still not elevated ext without edema, lungs are clear cardiac examines regular Results & Data Results & Data Vital Signs (Past 12 Hours) Vital Signs Temp Pulse Resp BP Pulse Ox O2 Del Method O2 Flow Rate 01/13/24 11:27 Room Air 01/13/24 11:20 97.7 F 01/13/24 11:00 60 20 109/57 L 98 Room Air 01/13/24 09:12 60 24 98 01/13/24 09:00 105/51 L 01/13/24 08:57 60 28 H 97 01/13/24 08:02 120/45 L 01/13/24 08:00 60 01/13/24 08:00 60 20 89 L 01/13/24 07:30 104/61 01/13/24 07:30 104/61 01/13/24 07:24 60 27 H 98 01/13/24 07:00 106/54 L 01/13/24 07:00 60 28 H 99 01/13/24 06:57 98.1 F 60 20 106/54 L 99 01/13/24 06:46 97.9 F 60 24 104/45 L 99 1 01/13/24 06:42 97.9 F 60 24 104/45 L 99 1 01/13/24 06:42 97.9 F 60 24 104/45 L 99 1 01/13/24 06:26 97.9 F 60 20 99/52 L 98 1 01/13/24 06:20 97.9 F 60 24 101/53 L 100 1 01/13/24 05:34 97.9 F 60 24 100/47 L 99 1 01/13/24 05:04 97.9 F 60 24 95/49 L 99 01/13/24 04:49 97.9 F 60 20 94/44 L 99 1 01/13/24 04:31 97.9 F 60 20 86/47 L 99 Laboratory Results review cbc and chemistry discussed case with ID PG Care Time/CCT Total # of Minutes Spent Total Time Spent with Patient: Total time spent is greater than 50% in coordination of care (as documented) at patient's floor/unit and/or counseling patient: Coding Level of Care Code 93119 SUB INP/OBS CARE 3/50MIN Diagnoses Shock R57.9 Anemia D64.9 Anemia type: unspecified type Malignant neoplasm of left female breast, unspecified estrogen receptor status, unspecified site of breast C50.912 Breast location: unspecified site of breast Estrogen receptor status: unspecified Patient sex: female Laterality: left Atrial fibrillation, unspecified type I48.91 Atrial fibrillation type: unspecified Controlled type 2 diabetes mellitus without complication, with long-term current use of insulin E11.9; Z79.4 Diabetes mellitus intermediate insulin use: with intermediate use Diabetes mellitus complication status: without complication (2) Anemia Anemia type: unspecified type Qualified Code(s): D64.9 - Anemia, unspecified (3) Breast cancer Breast location: unspecified site of breast Estrogen receptor status: unspecified Patient sex: female Laterality: left Qualified Code(s): C50.912 - Malignant neoplasm of unspecified site of left female breast (4) Atrial fibrillation Atrial fibrillation type: unspecified Qualified Code(s): I48.91 - Unspecified atrial fibrillation (5) Diabetes type 2, controlled Diabetes mellitus intermediate insulin use: with exterminator termite use Diabetes mellitus complication status: without complication Qualified Code(s): E11.9 - Type 2 diabetes mellitus without complications; Z79.4 - retirement (current) use of insulin
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
[2024-01-13] MEDS: PANTOprazole 40 MG in SYRINGE 0 ML IV SCH (20:42)
[2024-01-13] MEDS: LANTUS PER UNIT CHARGE SQ SCH (20:42)
[2024-01-13] MEDS ORDERED: ATORVASTATIN 40 MG TAB PO SCH (21:00)
[2024-01-14 05:44] LABS: Albumin Level 2.8 gm/dl (3.4-5.0); BUN Creatinine Ratio 33.6 (10-20); Bilirubin Direct 0.3 mg/dl (0-0.2); Bilirubin,Total 0.6 mg/dl (0.2-1.0); Calcium 7.2 mg/dl (8.6-10.3); Creatinine Clr Calc Pharmacy 31.9 ml/min; Est GFR (African American) 43.6 ml/min; Est GFR (Non-African American) 37.6 ml/min; Potassium 3.2 mmol/L (3.5-5.1); Total Protein 4.8 gm/dl (6.0-8.3)
[2024-01-14 06:11] LABS: Basophils # (auto) 0.09 K/uL (0.00-0.20); Basophils % (auto) 0.9 %; Eosinophils # (auto) 0.02 K/uL (0.00-0.50); Eosinophils % (auto) 0.2 %; Hematocrit (blood only) 23.9 % (37.0-47.0); Immature Granulocytes # (auto) 0.09 K/uL (0.01-0.20); Immature Granulocytes % (auto) 0.9 %; Lymphocytes % (auto) 5.1 %; Mean Corpuscular Hemoglobin 29.5 pg (25.0-34.0); Mean Corpuscular Hgb Conc 33.5 g/dL (32.0-36.0); Mean Corpuscular Volume 88.2 fL (80.0-100.0); Monocytes # (auto) 0.94 K/uL (0.11-0.59); Monocytes % (auto) 9.6 %; Neutrophils # (auto) 8.13 K/uL (1.40-6.50); Neutrophils % (auto) 83.3 %; Nucleated RBC # (auto) 0.66 K/uL (0.00-0.12); Nucleated RBC % (auto) 6.8 %; Ovalocytes 1+; Platelet Count 63 K/uL (130-400); Polychromasia 1+; RDW Coefficient of Variation 16.8 % (11.5-14.5); RDW Standard Deviation 52.5 fL (36.4-46.3); Red Blood Count 2.71 M/uL (4.20-5.40); White Blood Count 9.77 K/ul (4.8-10.8)
--- NOTE | 2024-01-14 06:11 | Electrocardiogram Report ---
Test Reason : Blood Pressure : */* mmHG Vent. Rate : 62 BPM Atrial Rate : 340 BPM P-R Int : * ms QRS Dur : 158 ms QT Int : 520 ms P-R-T Axes : * -85 70 degrees QTcB Int : 527 ms Ventricular-paced rhythm Abnormal ECG When compared with ECG of 26-Dec-2023 11:34, Vent. rate has increased by 2 bpm Confirmed by Lakhwinder Acosta ([id number]) on 01/14/2024 6:10:51 AM Referred By: REFERRED SELF Confirmed By: Lakhwinder Acosta
--- NOTE | 2024-01-14 07:28 | Hospitalist Progress Note ---
Date of Service January 14, 2024 Assessment & Plan (1) Shock: Plan: 73yo female with history of breast cancer metastatic to liver, on chemotherapy - follows with Dr. De Luna. elevated procalcitonin at 21.5 as well as elevated lactate at 10.2. Suspect septic shock did have ESBL Klebsiella outpt 01/06, sensitive to Ertapenem only, blood cultures with MSSA, TTE no vegetation, moderate , but ID feels with amount of hardware and pacemaker, JOSE maybe indicated at this time repeat blood cultures pending appropriate random cortisol (2) Anemia: Plan: unclear if anemia secondary to chemotherapy, chronic inflammation, or recent acute blood loss has h/o chronic iliopsoas bleed bolus iv protonix hgb augmented with transfusion 5.2 to 8.6 (3) Atrial fibrillation: Plan: pt is chronically anticoagulated with Eliquis, however has elevated INR likely due to liver disease, will hold Anticoagulation troponin ranged from 56 to 61, suspect demand ischemia in face of sepsis, not suspecting ACS (4) Diabetes type 2, controlled: Plan: history of DM, Last RovC6D=9.3 on 12/27/23 -Continue Lantus 15u qHS -ISS - goal blood sugar 110 - 180 -s/p Calcium gluconate x 3 amps given for low ionized calcium of 1.11 Plan overall outlook is improving Admission and Anticipated Discharge Date Admission Date: January 12, 2024 Subjective pt is mildly confused, no focal pain although has history of same looks chronically ill improving po intake, stop bicarb gtt, Physical Exam Physical Exam: pt appears chronically ill has off color, bilirubin is still not elevated ext without edema, lungs are clear cardiac examines regular abd is non tender Results & Data Results & Data Vital Signs (Past 12 Hours) Vital Signs Temp Pulse Resp BP Pulse Ox O2 Del Method 01/14/24 05:00 60 116/55 L 97 Room Air 01/14/24 03:06 97.7 F 60 19 114/55 L 97 Room Air 01/14/24 00:52 97.7 F 60 110/52 L 96 Room Air 01/14/24 00:20 60 01/13/24 21:06 97.7 F 60 23 107/69 96 Room Air 01/13/24 19:34 98.1 F 01/13/24 19:30 109/56 L Laboratory Results review cbc review chemistry, hypokalemia augmented, check magnesium level ordered PG Care Time/CCT Total # of Minutes Spent Total Time Spent with Patient: Total time spent is greater than 50% in coordination of care (as documented) at patient's floor/unit and/or counseling patient: Coding Level of Care Code 58797 SUB INP/OBS CARE 3/50MIN Diagnoses Shock R57.9 Anemia D64.9 Anemia type: unspecified type Atrial fibrillation, unspecified type I48.91 Atrial fibrillation type: unspecified Controlled type 2 diabetes mellitus without complication, with long-term current use of insulin E11.9; Z79.4 Diabetes mellitus complication status: without complication Diabetes mellitus termination clerk insulin use: with shelter use (2) Anemia Anemia type: unspecified type Qualified Code(s): D64.9 - Anemia, unspecified (3) Atrial fibrillation Atrial fibrillation type: unspecified Qualified Code(s): I48.91 - Unspecified atrial fibrillation (4) Diabetes type 2, controlled Diabetes mellitus complication status: without complication Diabetes mellitus termination clerk insulin use: with shelter use Qualified Code(s): E11.9 - Type 2 diabetes mellitus without complications; Z79.4 - senior living (current) use of insulin
[2024-01-14] MEDS: INSULIN ASPART PER UNIT CHARGE SC SCH (08:08)
[2024-01-14] MEDS: POTASSIUM CHLORIDE / WTR 10 MEQ/100 ML PLCT IV SCH (08:09)
[2024-01-14] MEDS: MAGNESIUM SULFATE / D5W 1 GM/100 ML BAG IV ONE (08:09)
[2024-01-14] MEDS ORDERED: PHARMACY GLYCEMIC MGMT CONSULT PRN (11:30)
--- NOTE | 2024-01-14 12:00 | Pharmacy Report ---
Pharmacy Glycemic Short Note 2 - Date of Service January 14, 2024 - Glycemic Short BSG Results (Last 24 hours): 01/13/24 01/13/24 01/14/24 16:19 20:30 00:25 Glucose POC Glucose 208 H 234 H 207 H 01/14/24 01/14/24 01/14/24 04:43 05:38 07:15 Glucose 196 H POC Glucose 178 H 195 H 01/14/24 11:11 Glucose POC Glucose 238 H OUTPATIENT ANTIDIABETIC REGIMEN: * Lantus 15 units SC qPM * HbA1c 6.3% on 12/27/23 ASSESSMENT: * 73 yo F w metastatic breast CA on chemo admitted w sepsis 2nd MSSA bacteremia and ? concomitant UTI * BSG's above goal range for ICU patient starting 01/12 PM, after initiation of bicarb drip mixed in D5W @ 100 ml/hr. Patient now downgraded from ICU status (although remains in 1E) and bicarb drip was just discontinued * Anticipate that discontinuation of bicarb drip will help with improvement of BSG's. Will therefore not adjust Lantus for now (and continue home regimen/dose). Will however tighten Novolog slightly, to weight-based moderate stress estimate PLAN FOR INPATIENT GLYCEMIC CONTROL: * Basal insulin * Lantus 15 units SQ HS * Bolus insulin * NovoLog per scale ACHS or Q6hrs while NPO * Goal Range: Low 110 mg/dL - High 160 mg/dL * Correction Factor: 35 mg/dL/unit * Nutritional / Prandial insulin per carb ratio of 1 unit per 11 grams CHO consumed
--- NOTE | 2024-01-14 14:12 | Ultrasound Report ---
ULTRASOUND LEFT UPPER EXTREMITY VENOUS CLINICAL HISTORY: Left arm swelling. COMPARISON STUDY: Left upper extremity venous ultrasound dated 10/28/2023. TECHNIQUE: Real-time, grayscale, and color Doppler sonography of the deep veins of the left upper ext remity is performed. The patient could not tolerated compression due to discomfort. FINDINGS: There is no sonographic evidence of deep venous thrombosis identified in the left upper ext remity. The left internal jugular, axillary, and brachial veins are patent. Normal venous waveforms a nd augmentation are seen within the left subclavian vein. The cephalic and basilic veins are clear. T he visualized radial and ulnar veins are patent. Soft tissue edema is noted in the forearm. IMPRESSION: There is no sonographic evidence of deep venous thrombosis identified in the left upper e xtremity. ACT 112: Negative or not required by law. Electronically signed by: Noe Carrillo M.D. 01/14/2024 2:11 PM
[2024-01-14] MEDS: PHYTONADIONE 5 MG TAB PO STA (19:48)
--- NOTE | 2024-01-14 20:13 | Hospitalist Progress Note ---
Date of Service January 14, 2024 Assessment & Plan (1) Shock: Plan: 73yo female with history of breast cancer metastatic to liver, on chemotherapy - follows with Dr. De Luna. elevated procalcitonin at 21.5 as well as elevated lactate at 10.2. metabolic encephalopathy Suspect septic shock did have ESBL Klebsiella outpt 01/06, sensitive to Ertapenem only, blood cultures with MSSA, TTE no vegetation, moderate , but ID feels with amount of hardware and pacemaker, JOSE maybe indicated at this time repeat blood cultures pending appropriate random cortisol (2) Anemia: Plan: unclear if anemia secondary to chemotherapy, chronic inflammation, or recent acute blood loss has h/o chronic iliopsoas bleed bolus iv protonix hgb augmented with transfusion 5.2 to 8.6 (3) Atrial fibrillation: Plan: pt is chronically anticoagulated with Eliquis, however has elevated INR likely due to liver disease, will hold Anticoagulation troponin ranged from 56 to 61, suspect demand ischemia in face of sepsis, not suspecting ACS (4) Diabetes type 2, controlled: Plan: history of DM, Last ZcvR1H=9.3 on 12/27/23 -Continue Lantus 15u qHS -ISS - goal blood sugar 110 - 180 -s/p Calcium gluconate x 3 amps given for low ionized calcium of 1.11 Plan overall outlook is improving Admission and Anticipated Discharge Date Admission Date: January 12, 2024 Results & Data Results & Data Vital Signs (Past 12 Hours) Vital Signs Temp Pulse Pulse Resp BP Pulse Ox O2 Del Method 01/14/24 15:52 98.8 F 60 19 112/64 96 Room Air 01/14/24 13:34 97.5 F L 60 18 110/66 95 Room Air 01/14/24 11:12 98.1 F 01/14/24 10:29 60 PG Care Time/CCT Total # of Minutes Spent Total Time Spent with Patient: Total time spent is greater than 50% in coordination of care (as documented) at patient's floor/unit and/or counseling patient: Coding Level of Care Code None Diagnoses Shock R57.9 Anemia D64.9 Anemia type: unspecified type Atrial fibrillation, unspecified type I48.91 Atrial fibrillation type: unspecified Controlled type 2 diabetes mellitus without complication, with long-term current use of insulin E11.9; Z79.4 Diabetes mellitus bed bug exterminator insulin use: with bed bug exterminator use Diabetes mellitus complication status: without complication (2) Anemia Anemia type: unspecified type Qualified Code(s): D64.9 - Anemia, unspecified (3) Atrial fibrillation Atrial fibrillation type: unspecified Qualified Code(s): I48.91 - Unspecified atrial fibrillation (4) Diabetes type 2, controlled Diabetes mellitus bed bug exterminator insulin use: with bed bug exterminator use Diabetes mellitus complication status: without complication Qualified Code(s): E11.9 - Type 2 diabetes mellitus without complications; Z79.4 - [facility] (current) use of insulin
[2024-01-14 22:26] LABS: Creatinine Clr Calc Pharmacy 38.9 ml/min; Est GFR (African American) 53.3; Potassium 3.2 mmol/L (3.5-5.1)
[2024-01-14 22:27] LABS: BUN Creatinine Ratio 37.9 (10-20); Calcium 7.4 mg/dl (8.6-10.3)
[2024-01-15 07:35] LABS: Hematocrit (blood only) 24.9 % (37.0-47.0); Hemoglobin 8.3 g/dl (12.0-16.0); Mean Corpuscular Hemoglobin 28.9 pg (25.0-34.0); Mean Corpuscular Hgb Conc 33.3 g/dL (32.0-36.0); Mean Corpuscular Volume 86.8 fL (80.0-100.0); Nucleated RBC # (auto) 0.64 K/uL (0.00-0.12); Nucleated RBC % (auto) 5.7 %; Platelet Count 58 K/uL (130-400); RDW Standard Deviation 52.4 fL (36.4-46.3); Red Blood Count 2.87 M/uL (4.20-5.40); White Blood Count 11.19 K/ul (4.8-10.8)
[2024-01-15 07:37] LABS: Basophils # (auto) 0.04 K/uL (0.00-0.20); Basophils % (auto) 0.4 %; Eosinophils # (auto) 0.06 K/uL (0.00-0.50); Eosinophils % (auto) 0.5 %; Immature Granulocytes # (auto) 0.59 K/uL (0.01-0.20); Immature Granulocytes % (auto) 5.3 %; Monocytes # (auto) 1.42 K/uL (0.11-0.59); Monocytes % (auto) 12.7 %; Neutrophils # (auto) 8.18 K/uL (1.40-6.50); Neutrophils % (auto) 73.1 %; Polychromasia 1+
[2024-01-15 07:39] LABS: Albumin Level 2.7 gm/dl (3.4-5.0); BUN Creatinine Ratio 48.1 (10-20); Bilirubin Direct 0.2 mg/dl (0-0.2); Bilirubin,Total 0.6 mg/dl (0.2-1.0); Creatinine Clr Calc Pharmacy 57.9 ml/min; Est GFR (African American) 84.9 ml/min; Est GFR (Non-African American) 73.2 ml/min; Potassium 3.4 mmol/L (3.5-5.1); Total Protein 4.7 gm/dl (6.0-8.3)
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
[2024-01-15] MEDS: POTASSIUM CHLORIDE CRTAB 20 MEQ TABCR PO SCH (09:50)
[2024-01-15] MEDS: oxyCODONE HCL IR 5 MG TAB (IMMEDIATE RELEASE) PO PRN (13:10)
[2024-01-15] MEDS: ceFAZolin 2000MG 2,000 MG/15 ML SYR IV SCH (13:27)
[2024-01-15] MEDS: MoRPHine SULFATE 2 MG/ML CARP IV PRN (17:33)
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
[2024-01-15] MEDS: OPTIRAY 320 100ml IV ONE (21:17)
--- NOTE | 2024-01-16 02:30 | CT Scan Report ---
Exam(s): CT T SPINE IV Amt: 91 ml optiray 320 EXAM: CT Thoracic Spine With Intravenous Contrast CLINICAL HISTORY: Reason for exam: eval for infection as staph bacteremic and pain. TECHNIQUE: Axial computed tomography images of the thoracic spine with intravenous contrast. CTDI is 48.94 mGy and DLP is 2191.71 mGy-cm. Automated exposure control was utilized for the study. A dose lowering technique was utilized adhering to the principles of ALARA. CONTRAST: Patient received 91 ml optiray 320 of IV contrast COMPARISON: No relevant prior studies available. FINDINGS: Vertebrae: Severe multilevel osteophytosis throughout the thoracic spine which is partially ankylosed. The facets and spinous processes are intact and normally aligned. No acute fracture or traumatic subluxation is seen. The alignment is normal. Discs/spinal canal/neural foramina: The spinal canal contents appear grossly unremarkable. No spinal stenosis or abnormal fluid collection is identified. Soft tissues: Unremarkable. Pleural space: Small bilateral pleural effusions layering posteriorly measuring 2 cm on the left and 3 cm on the right. There is partial visualization of bilateral lower lobe partial consolidation. IMPRESSION: 1. Severe multilevel osteophytosis throughout the thoracic spine which is partially ankylosed. No acute fracture or traumatic subluxation is seen. 2. Small bilateral pleural effusions layering posteriorly measuring 2 cm on the left and 3 cm on the right. There is partial visualization of bilateral lower lobe partial consolidation. Electronically signed by: Narayan Huang MD 01/16/24 02:29 AM
--- NOTE | 2024-01-16 02:36 | CT Scan Report ---
Exam(s): CT L SPINE IV Amt: 91 ml optiray 320 EXAM: CT Lumbar Spine With Intravenous Contrast CLINICAL HISTORY: Reason for exam: eval for infection as staph bacteremic and pain. TECHNIQUE: Axial computed tomography images of the lumbar spine with intravenous contrast. CTDI is 47.1 mGy and DLP is 2109.1 mGy-cm. Automated exposure control was utilized for the study. A dose lowering technique was utilized adhering to the principles of ALARA. CONTRAST: Patient received 91 ml optiray 320 of IV contrast COMPARISON: CT abdomen and pelvis from December 26, 2023 FINDINGS: Vertebrae: The vertebral body heights are normally maintained. No acute compression fracture or burst fracture is seen. Extensive instrumentation throughout the lumbar spine consisting of pedicle screws attached to posterior lateral rods with laminectomy multilevel fusion extending from L2-S1. There is an old healed S1 fracture. The hardware appears intact. No acute fracture or subluxation is seen. Discs/spinal canal/neural foramina: See findings above and below. No significant spinal stenosis is seen. Soft tissues: Axial soft tissue images show no evidence of significant spinal stenosis. No abnormal fluid collection is seen within the spinal canal or paraspinous soft tissues. Kidneys and ureters: Nonobstructive 4 mm calyceal calculus in the lower pole the both kidneys. No hydronephrosis or ureterolithiasis. IMPRESSION: Extensive instrumentation throughout the lumbar spine consisting of pedicle screws attached to posterior lateral rods with laminectomy multilevel fusion extending from L2-S1. There is an old healed S1 fracture. The hardware appears intact. No acute fracture or subluxation is seen. No abnormal fluid collection is seen associated with the spine. Electronically signed by: Narayan Huang MD 01/16/24 02:35 AM
[2024-01-16 07:22] LABS: INR 1.1 (0.9-1.1); Prothrombin Time 11.5 Seconds (9.0-12.0)
[2024-01-16 07:38] LABS: BUN Creatinine Ratio 43.1 (10-20); Creatinine Clr Calc Pharmacy 78.9 ml/min; Est GFR (African American) 104.5 ml/min; Est GFR (Non-African American) 90.2 ml/min; Potassium 3.9 mmol/L (3.5-5.1)
[2024-01-16 07:42] LABS: Hematocrit (blood only) 26.6 % (37.0-47.0); Hemoglobin 8.4 g/dl (12.0-16.0); Mean Corpuscular Hemoglobin 28.8 pg (25.0-34.0); Mean Corpuscular Hgb Conc 31.6 g/dL (32.0-36.0); Mean Corpuscular Volume 91.1 fL (80.0-100.0); Nucleated RBC # (auto) 0.18 K/uL (0.00-0.12); Nucleated RBC % (auto) 1.6 %; Platelet Count 53 K/uL (130-400); RDW Coefficient of Variation 17.7 % (11.5-14.5); RDW Standard Deviation 57.1 fL (36.4-46.3); Red Blood Count 2.92 M/uL (4.20-5.40); White Blood Count 11.44 K/ul (4.8-10.8)
--- NOTE | 2024-01-16 08:25 | Hospitalist Progress Note ---
Date of Service January 16, 2024 Assessment & Plan (1) Shock: (2) Anemia: (3) Atrial fibrillation: (4) Diabetes type 2, controlled: Plan 73yo female with history of breast cancer metastatic to liver, on chemotherapy - follows with Dr. De Luna. #Shock: resolved #MSSA bacteremia #ESBL UTI - on admission: elevated procalcitonin at 21.5 as well as elevated lactate at 10.2. - cont ertapenem - discussed case with ID, given immunocompromised state, recs removal of port as well as JOSE to evaluate her valves and PPM - gen surgery consulted for port removal - case discussed with cards, recs not doing JOSE today due to platelet count being in the 50s, recs reassessing on Friday01/20/24 #metabolic encephalopathy Suspect septic shock did have ESBL Klebsiella outpt 01/06, confirmed on repeat sensitive to Ertapenem only, blood cultures with MSSA x 1 Ct thoracic and lumbar spine as with pain eval for mets or infection repeat blood cultures negative at this time appropriate random cortisol #Anemia: unclear if anemia secondary to chemotherapy, chronic inflammation, or recent a cute blood loss has h/o chronic iliopsoas bleed bolus iv protonix hgb augmented with transfusion 5.2 to 8.6, remains stable >8 #Atrial fibrillation: pt is chronically anticoagulated with Eliquis, however has elevated INR likely due to liver disease, continue to hold Anticoagulation INR has been up without meds troponin ranged from 56 to 61, suspect demand ischemia in face of sepsis, not suspecting ACS #Diabetes type 2, controlled: history of DM, Last [id number]=9.3 on 12/27/23 -Continue Lantus 15u qHS -ISS - goal blood sugar 110 - 180 -s/p Calcium gluconate x 3 amps given for low ionized calcium of 1.11 Overall outlook is improving PT/OT pt declined family update Admission and Anticipated Discharge Date Admission Date: January 12, 2024 Subjective no acute events overnight Currently no new complaints Review of Systems Review of Systems: Comprehensive ROS completed Physical Exam Physical Exam: Gen: chronically ill appearing, no acute distress HEENT: NC/AT, MMM CVS: [id number], RRR Lungs: CTAB Abd: soft, NT, nl BS Ext: + edema, bunch Psych: cooperative Results & Data Results & Data Vital Signs (Past 12 Hours) Vital Signs Temp Pulse Pulse Resp BP Pulse Ox O2 Del Method 01/16/24 08:00 Room Air 01/16/24 07:52 36.7 C 60 18 123/62 96 Room Air 01/16/24 04:00 36.7 C 63 18 129/63 94 Room Air 01/15/24 21:36 60 01/15/24 20:32 36.6 C 60 18 115/63 99 Room Air PG Care Time/CCT Total # of Minutes Spent Total Time Spent with Patient: Total time spent is greater than 50% in coordination of care (as documented) at patient's floor/unit and/or counseling patient: Coding Level of Care Code 34417 SUB INP/OBS CARE 2/35MIN Diagnoses Shock R57.9 Anemia D64.9 Anemia type: unspecified type Atrial fibrillation, unspecified type I48.91 Atrial fibrillation type: unspecified Controlled type 2 diabetes mellitus without complication, with long-term current use of insulin E11.9; Z79.4 Diabetes mellitus complication status: without complication Diabetes mellitus superintendent terminal insulin use: with detention use (2) Anemia Anemia type: unspecified type Qualified Code(s): D64.9 - Anemia, unspecified (3) Atrial fibrillation Atrial fibrillation type: unspecified Qualified Code(s): I48.91 - Unspecified atrial fibrillation (4) Diabetes type 2, controlled Diabetes mellitus complication status: without complication Diabetes mellitus superintendent terminal insulin use: with superintendent terminal use Qualified Code(s): E11.9 - Type 2 diabetes mellitus without complications; Z79.4 - alf (current) use of insulin
--- NOTE | 2024-01-16 09:12 | Pharmacy Report ---
Pharmacy Glycemic Short Note 2 - Date of Service January 16, 2024 - Glycemic Short BSG Results (Last 24 hours): 01/15/24 01/15/24 01/15/24 11:50 16:12 20:24 Glucose POC Glucose 124 H 112 H 119 H 01/16/24 01/16/24 06:17 07:43 Glucose 97 POC Glucose 130 H OUTPATIENT ANTIDIABETIC REGIMEN: * Lantus 15 units SC qPM * HbA1c 6.3% on 12/27/23 ASSESSMENT: 01/15: * Faith demonstrated good glycemic control yesterday (total 19 units insulin; 15 units basal + 4 units bolus) * Fasting BSG 130 mg/dL this AM. This is elevated compared to 01/14, however will hold off on increasing basal insulin given patient was made NPO at midnight. Lunch BSG below goal. * No changes to post prandial insulin coverage 01/13: * 73 yo F w metastatic breast CA on chemo admitted w sepsis 2nd MSSA bacteremia and ? concomitant UTI * BSG's above goal range for ICU patient starting 01/12 PM, after initiation of bicarb drip mixed in D5W @ 100 ml/hr. Patient now downgraded from ICU status (although remains in 1E) and bicarb drip was just discontinued * Anticipate that discontinuation of bicarb drip will help with improvement of BSG's. Will therefore not adjust Lantus for now (and continue home regimen/dose). Will however tighten Novolog slightly, to weight-based moderate stress estimate PLAN FOR INPATIENT GLYCEMIC CONTROL: * Basal insulin * Lantus 10-15 units SQ HS (10 units for BSG less than 120 or NPO) * Bolus insulin * NovoLog per scale ACHS or Q6hrs while NPO * Goal Range: Low 110 mg/dL - High 160 mg/dL * Correction Factor: 35 mg/dL/unit * Nutritional / Prandial insulin per carb ratio of 1 unit per 11 grams CHO consumed
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
[2024-01-16] MEDS: INSULIN ASPART PER UNIT CHARGE SC SCH ×2 (13:41→18:12)
[2024-01-16] MEDS ORDERED: Nursing to Pharmacy Communication SCH (16:30)
[2024-01-16] MEDS: LANTUS PER UNIT CHARGE SQ SCH (21:34)
[2024-01-17] MEDS: CARBOHYDRATES FOR HYPOGLYCEMIA PO PRN (07:17)
--- NOTE | 2024-01-17 10:00 | Surgery Consultation ---
Date of Consultation January 17, 2024 Assessment & Plan (1) MSSA bacteremia: NPO past MN will remove in OR with platelets at 50 History of Present Illness Attending Physician: Melissa Luna MD History of Present Illness This is a 73yo female with history of breast cancer on chemotherapy admitted with sepsis and hypotension. She was found to have MSSA bacteremia and ID requested Aport removal. Her platelets are in the 50s. Allergies Allergy/AdvReac Type Severity Reaction Status Date / Time metformin AdvReac Intermediate RESTLESSNES Verified 12/26/23 14:11 S Home Medications Medication Instructions Recorded Confirmed Type blood sugar diagnostic (OneTouch #100 ea 10/07/22 12/08/23 Rx Ultra Test strips) cyanocobalamin (vitamin B-12) 1,000 mcg IM MONTHLY #1 ea 10/07/22 12/26/23 Rx 1,000 mcg/mL injection kit [employer] Delica Plus Lancet 33 #300 ea 01/09/23 12/08/23 Rx gauge (lancets) albuterol sulfate 90 mcg/actuation 2 puff inhalation Q4 PRN Shortness 02/24/23 12/26/23 Rx aerosol inhaler Of Breath Or Wheezing #8.5 grams insulin glargine 100 unit/mL 15 unit subcut QPM 02/28/23 12/26/23 History subcutaneous solution (Lantus U-100 Insulin) meclizine 25 mg tablet 25 mg PO DAILY PRN 02/28/23 12/29/23 History DIZZINESS/VERTIGO pen needle, diabetic 32 gauge x #100 ea 06/12/23 12/08/23 Rx 5/32" (Easy Comfort Pen [place]) levothyroxine 25 mcg tablet 37.5 mcg (1.5 x 25 mcg) PO QAM 07/30/23 12/26/23 Rx #135 tabs apixaban 5 mg tablet (Eliquis) 5 mg PO BID #60 tabs 09/16/23 12/26/23 Rx duloxetine 60 mg capsule,delayed 60 mg PO QAM 09/26/23 12/26/23 History release (Cymbalta) pantoprazole 40 mg tablet,delayed 40 mg PO QAM #90 tabs 10/07/23 12/26/23 Rx release (Protonix) atorvastatin 40 mg tablet 40 mg PO HS #90 tabs 10/14/23 12/26/23 Rx losartan 25 mg tablet 25 mg PO QAM 10/17/23 12/26/23 History oxycodone 10 mg tablet 10 mg PO UD PRN Pain 10/17/23 12/26/23 History phenazopyridine 95 mg tablet 95 mg PO TID PRN Urinary Pain 10/17/23 12/26/23 His tory potassium chloride 20 mEq 20 meq PO QAM 10/17/23 12/26/23 History tablet,extended release diltiazem HCl 360 mg capsule,24 360 mg PO QAM #90 caps 12/16/23 12/26/23 Rx hr,extended release (Tiazac) furosemide 20 mg tablet 20 mg PO DAILY #30 tabs 12/18/23 12/26/23 Rx nystatin 100,000 unit/gram topical 1 applic topical DAILY #30 grams 12/18/23 12/26/23 Rx powder doxazosin 2 mg tablet 2 mg PO DAILY 1 month #30 tabs 12/31/23 Rx Patient History Medical History Human metapneumovirus pneumonia Infected venous access port 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 History of blood transfusion Closed fracture of left distal fibula Breast cancer (12/18/15) "Abnormal left breast mammogram Status post core needle biopsy 12/18/2015 revealing infiltrating ductal carcinoma Estrogen receptor positive, progesterone receptor positive, HER-2/po negative Status post left needle localization lumpectomy and sentinel lymph node biopsy 01/04/2016 Stage pT1c pN0M0 Status post completion of radiation therapy 02/13/2016 received 3850 cGy utilizing accelerated partial breast irradiation." On 01/17/16 14:10 Deidre Orta wrote "Abnormal left breast mammogram Status post core needle biopsy 12/18/2015 revealing infiltrating ductal carcinoma Estrogen receptor positive, progesterone receptor positive, HER-2/po negative Status post left needle localization lumpectomy and sentinel lymph node biopsy 01/04/2016 Stage pT1c pN0M0" Generalized weakness Lung nodules monitoring Urinary frequency Pacemaker 2019, follows with Dr Ramires. checks Q6 months. Neuropathy Aortic stenosis Mild aortic stenosis (MERLENE 1.6cm2; MG 7.8mmHg) per 12/2019 echo Diabetes mellitus, type 2 IDDM Degenerative disc disease Hx of cardiac pacemaker Implanted 2019 (tachy-monica syndrome), [employer] device Follows with Dr. Ramires Liver mass Pt denies but 05/17/20 PET scan shows 2.5 right hepatic lobe mass consistent with known hepatic metastasis Anemia h/o blood transfusions Infiltrating ductal carcinoma of left breast Initial Dx 2015- s/p lumpectomy, XRT and anastrozole Metastatic breast cancer 03/2020, follows with [facility] Peripheral neuropathy Hands (B/L CTS) Obstructive sleep apnea "Resolved" s/p gastric bypass (? retested) Hypercholesterolemia Gastroesophageal reflux disease controlled, stable per pt Chronic pain Cervical spine disease Full ROM per pt Surgical History H/O breast biopsy (05/29/23) Skin, left breast, 2 punch biopsies: In office procedure Dr. Alvarez - Fibrosing dermatitis. - See comment Status post revision of total replacement of right knee History of removal of Port-a-Cath (01/11/22) Infected port right anterior chest removed Dr. Shah S/P cardiac pacemaker procedure 2019 History of surgery Right knee TKA revision with spacer (07/11/2021): SAB at L3-4 (x2 attempts) + PNB at [facility]. No issues noted per post-op anesthesia progress note. History of carpal tunnel surgery of left wrist 06/2021 History of carpal tunnel surgery of right wrist Port-A-Cath in place hx - 05/2020 since removed d/t infection at port 12/2021 History of colonoscopy History of evacuation of hematoma Hematoma right breast and right chest 08/31/13 Dr. Shah H/O bilateral hip replacements Status post repair of ventral hernia History of total knee arthroplasty R/L Status post total abdominal hysterectomy and bilateral salpingo-oophorectomy Status post lumbar spine surgery for decompression of spinal cord Status post partial mastectomy of left breast Status post panniculectomy History of section x1 Status post laparoscopic cholecystectomy Status post gastric bypass for obesity Status post arthroscopy of left shoulder Status post appendectomy Family History Unknown Breast cancer Emphysema lung Mother Diabetes Heart disease Father Heart disease Other No family history of adverse response to anesthesia Denies family history of Ovarian cancer Prostate cancer Coronary heart disease Colorectal cancer Social History Smoking Status: Never smoker Tobacco Type: Cigarettes packs per day: 2; Second Hand Exposure: No; Do You Dip or Chew Tobacco: No; Hx Alcohol Use: No Hx Substance Use: No Preferred Language: Venezuelan Communication Ability: Effective Visual Impairment: No Limitations Hearing Ability: Normal Inspector Balance Bridge Required: No Beliefs That Will Affect Care: None marital status: Current Living Situation: Spouse Current Living Situation Comment: lives with current occupational status: retired Feels Safe at Home: Yes Childhood Exposure to Second-Hand Smoke: Yes Diet: diabetic caffeine: Yes Dental Care, Regularly: No Physical Activity Frequency: 1-2 Times per Week Seatbelt Use: always Sunscreen Use: No Assistive Devices: Cane and Walker Review of Systems Constitutional: no fever and no chills Eyes: no problem reported Ear, Nose, Mouth, Throat: no problem reported Respiratory: no cough and no dyspnea Cardiovascular: no chest pain Gastrointestinal: no abdominal pain Genitourinary: no dysuria Musculoskeletal: no back pain Integumentary: no problem reported Neurologic: no generalized weakness Psychiatric: no behavioral changes Physical Exam Constitutional: + thin Eyes: PERRL, conjunctivae normal, anicteric sclerae ENMT: external ear and nose normal, oropharynx normal Respiratory: normal respiratory effort, lungs clear to auscultation right sided Aport Cardiovascular: RRR, no murmur, no edema Gastrointestinal (Abdomen): normal bowel sounds, soft, nontender, no hepatosplenomegaly Skin: no rashes, warm and dry Results & Data Vital Signs (Past 12 Hours) Vital Signs Temp Pulse Pulse Resp BP Pulse Ox O2 Del Method 01/17/24 07:25 60 01/17/24 07:00 36.5 C 60 15 119/70 95 Room Air 01/17/24 03:53 36.9 C 54 L 16 112/68 95 Room Air 01/16/24 23:47 60 01/16/24 23:04 37.2 C 60 18 125/69 94 Room Air 01/16/24 22:21 Room Air
--- NOTE | 2024-01-17 11:35 | Electrocardiogram Report ---
Test Reason : Blood Pressure : */* mmHG Vent. Rate : 60 BPM Atrial Rate : 394 BPM P-R Int : * ms QRS Dur : 170 ms QT Int : 480 ms P-R-T Axes : * -80 79 degrees QTcB Int : 480 ms Ventricular-paced rhythm Abnormal ECG When compared with ECG of 12-Jan-2024 17:37, Vent. rate has decreased by 2 bpm Confirmed by Quinn Edmondson ([id number]) on 01/17/2024 11:35:25 AM Referred By: REFERRED SELF Confirmed By: Quinn Edmondson
[2024-01-17] MEDS: ceFAZolin 2000MG 2,000 MG/15 ML SYR IV ONE (12:28)
--- NOTE | 2024-01-17 13:18 | Hospitalist Progress Note ---
Date of Service January 17, 2024 Assessment & Plan (1) Shock: (2) Anemia: (3) Atrial fibrillation: (4) Diabetes type 2, controlled: Plan 73yo female with history of breast cancer metastatic to liver, on chemotherapy - follows with Dr. De Luna. #Shock: resolved #MSSA bacteremia #ESBL UTI - on admission: elevated procalcitonin at 21.5 as well as elevated lactate at 10.2. - cont ertapenem - discussed case with ID, given immunocompromised state, recs removal of port as well as JOSE to evaluate her valves and PPM - discussed case with gen surgery, plan for port removal on 01/18/24 - case discussed with cards, recs not doing JOSE today due to platelet count being in the 50s, recs reassessing on Friday01/20/24 #metabolic encephalopathy Suspect septic shock did have ESBL Klebsiella outpt 01/06, confirmed on repeat sensitive to Ertapenem only, blood cultures with MSSA x 1 Ct thoracic and lumbar spine as with pain eval for mets or infection repeat blood cultures negative at this time appropriate random cortisol #Anemia: unclear if anemia secondary to chemotherapy, chronic inflammation, or recent acute blood loss has h/o chronic iliopsoas bleed bolus iv protonix hgb augmented with transfusion 5.2 to 8.6, remains stable >8 #Atrial fibrillation: pt is chronically anticoagulated with Eliquis, however has elevated INR likely due to liver disease, continue to hold Anticoagulation INR has been up without meds troponin ranged from 56 to 61, suspect demand ischemia in face of sepsis, not suspecting ACS #Diabetes type 2, controlled: history of DM, Last [id number]=2.3 on 12/27/23 -Continue Lantus 15u qHS -ISS - goal blood sugar 110 - 180 -s/p Calcium gluconate x 3 amps given for low ionized calcium of 1.11 Overall outlook is improving PT/OT 01/16: pt requested update to be provided to Lulu, called but no answer, left message for callback Admission and Anticipated Discharge Date Admission Date: January 12, 2024 Subjective no acute events overnight Currently no new complaints Review of Systems Review of Systems: Comprehensive ROS completed Physical Exam Physical Exam: Gen: chronically ill appearing, no acute distress HEENT: NC/AT, MMM CVS: s1s2nl, RRR Lungs: CTAB Abd: soft, NT, nl BS Ext: + edema, bunch Psych: cooperative Results & Data Results & Data Vital Signs (Past 12 Hours) Vital Signs Temp Pulse Pulse Resp BP Pulse Ox O2 Del Method 01/17/24 11:13 Room Air 01/17/24 10:53 37.0 C 58 L 16 124/74 94 Room Air 01/17/24 07:25 60 01/17/24 07:00 36.5 C 60 15 119/70 95 Room Air 01/17/24 03:53 36.9 C 54 L 16 112/68 95 Room Air PG Care Time/CCT Total # of Minutes Spent Total Time Spent with Patient: Total time spent is greater than 50% in coordination of care (as documented) at patient's floor/unit and/or counseling patient: Coding Level of Care Code 43123 SUB INP/OBS CARE 2/35MIN Diagnoses Shock R57.9 Anemia D64.9 Anemia type: unspecified type Atrial fibrillation, unspecified type I48.91 Atrial fibrillation type: unspecified Controlled type 2 diabetes mellitus without complication, with long-term current use of insulin E11.9; Z79.4 Diabetes mellitus vermin exterminator insulin use: with prison use Diabetes mellitus complication status: without complication (2) Anemia Anemia type: unspecified type Qualified Code(s): D64.9 - Anemia, unspecified (3) Atrial fibrillation Atrial fibrillation type: unspecified Qualified Code(s): I48.91 - Unspecified atrial fibrillation (4) Diabetes type 2, controlled Diabetes mellitus vermin exterminator insulin use: with vermin exterminator use Diabetes mellitus complication status: without complication Qualified Code(s): E11.9 - Type 2 diabetes mellitus without complications; Z79.4 - terminal carman (current) use of insulin
--- NOTE | 2024-01-17 14:09 | Pharmacy Report ---
Pharmacy Glycemic Short Note 2 - Date of Service January 17, 2024 - Glycemic Short BSG Results (Last 24 hours): 01/16/24 01/16/24 01/17/24 16:44 21:14 07:13 POC Glucose 94 124 H 64 L* 01/17/24 01/17/24 07:36 11:19 POC Glucose 71 109 H OUTPATIENT ANTIDIABETIC REGIMEN: * Lantus 15 units SC qPM * HbA1c 6.3% on 12/27/23 ASSESSMENT: 01/16: * Good glycemic control yesterday - received 15 units of basal, no bolus - patient NPO during this time * Fasting hypoglycemia this AM, 64 mg/dL. Lantus dose was changed to dose per scale last evening, however patient received full dose of 15 units since BSG was greater than threshold of 120 mg/dL. Will d/c dose per scale and order set dose of Lantus 8 units for this evening (50% decrease) * NPO at midnight for infusaport removal 01/15: * Faith demonstrated good glycemic control yesterday (total 19 units insulin; 15 units basal + 4 units bolus) * Fasting BSG 130 mg/dL this AM. This is elevated compared to 01/14, however will hold off on increasing basal insulin given patient was made NPO at midnight. Lunch BSG below goal. * No changes to post prandial insulin coverage 01/13: * 73 yo F w metastatic breast CA on chemo admitted w sepsis 2nd MSSA bacteremia and ? concomitant UTI * BSG's above goal range for ICU patient starting 01/12 PM, after initiation of bicarb drip mixed in D5W @ 100 ml/hr. Patient now downgraded from ICU status (although remains in 1E) and bicarb drip was just discontinued * Anticipate that discontinuation of bicarb drip will help with improvement of BSG's. Will therefore not adjust Lantus for now (and continue home regimen/dose). Will however tighten Novolog slightly, to weight-based moderate stress estimate PLAN FOR INPATIENT GLYCEMIC CONTROL: * Basal insulin * Lantus 8 units SQ HS * Bolus insulin * NovoLog per scale ACHS or Q6hrs while NPO * Goal Range: Low 110 mg/dL - High 160 mg/dL * Correction Factor: 35 mg/dL/unit * Nutritional / Prandial insulin per carb ratio of 1 unit per 13 grams CHO consumed
[2024-01-17] MEDS: LANTUS PER UNIT CHARGE SQ SCH (21:31)
[2024-01-18] MEDS ORDERED: ceFAZolin 2000MG 2,000 MG/15 ML SYR IV ONE (06:00)
[2024-01-18 06:39] LABS: Hematocrit (blood only) 25.6 % (37.0-47.0); Hemoglobin 8.3 g/dl (12.0-16.0); Mean Corpuscular Hemoglobin 29.6 pg (25.0-34.0); Mean Corpuscular Hgb Conc 32.4 g/dL (32.0-36.0); Mean Corpuscular Volume 91.4 fL (80.0-100.0); Platelet Count 64 K/uL (130-400); RDW Coefficient of Variation 17.6 % (11.5-14.5); RDW Standard Deviation 58.4 fL (36.4-46.3); White Blood Count 10.87 K/ul (4.8-10.8)
[2024-01-18 06:49] LABS: BUN Creatinine Ratio 30.2 (10-20); Calcium 7.1 mg/dl (8.6-10.3); Creatinine Clr Calc Pharmacy 105.4 ml/min; Est GFR (African American) 115.3 ml/min; Est GFR (Non-African American) 99.5 ml/min; Potassium 4.1 mmol/L (3.5-5.1)
[2024-01-18 06:58] LABS: Basophils # (auto) 0.04 K/uL (0.00-0.20); Basophils % (auto) 0.4 %; Eosinophils # (auto) 0.04 K/uL (0.00-0.50); Eosinophils % (auto) 0.4 %; Immature Granulocytes # (auto) 0.25 K/uL (0.01-0.20); Immature Granulocytes % (auto) 2.3 %; Lymphocytes % (auto) 8.3 %; Monocytes # (auto) 1.78 K/uL (0.11-0.59); Monocytes % (auto) 16.4 %; Neutrophils # (auto) 7.86 K/uL (1.40-6.50); Neutrophils % (auto) 72.2 %; Ovalocytes 1+; Poikilocytosis Present; Polychromasia 2+
--- NOTE | 2024-01-18 07:39 | History & Physical Bridge Note ---
Date of Service January 18, 2024 History & Physical Bridge Note I have examined the patient, reviewed the History & Physical and in the interval since the performance of the History & Physical I have noted the following changes of clinical significance: no changes noted
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
[2024-01-18] MEDS ORDERED: MIDAZOLAM HCL 1 MG/ML 2ML VIAL ONE (07:41)
[2024-01-18] MEDS ORDERED: ceFAZolin 330 MG/ML 1 GM VIAL ONE (07:46)
[2024-01-18] MEDS ORDERED: SODIUM CHLORIDE 0.9% PF INJ 10 ML VIAL ONE (07:46)
[2024-01-18] MEDS ORDERED: ATROPINE SULFATE 0.1 MG/ML 10ML SYR IV PRN (08:02)
[2024-01-18] MEDS ORDERED: ONDANSETRON INJ 2 MG/ML 2 ML VIAL IV PRN (08:02)
[2024-01-18] MEDS ORDERED: fentaNYL citrate PF 100 MCG/2 ML VIAL IV PRN (08:02)
[2024-01-18] MEDS ORDERED: ePHEDrine sulfate 50 MG/ML AMP IV PRN (08:03)
[2024-01-18] MEDS ORDERED: PROPOFOL IV EMULSION 10 MG/ML 20 ML VIAL IV ONE (08:11)
[2024-01-18] MEDS: ceFAZolin 2000MG 2,000 MG/15 ML SYR IV ONE (08:17)
--- NOTE | 2024-01-18 08:22 | Anesthesiology Consultation ---
Date of Service January 18, 2024 Assessment & Plan Chart Review Chart Review: Acceptable Risk for Surgery and Patient NOT seen in Pre Admission Testing Consults Requested none ASA ASA4 Proposed Anesthesia Anesthesia Type: MAC Risk / Benefits Reviewed With: PT / POA / Parent / Guardian, Accepts Plan and Informed Consent Obtained History Surgery Operation Date: 01/18/24 07:35 Proposed Procedures p Infusaport Removal - Brian Kingston MD Height/Weight Height: 5 ft 2 in Weight: 76.2 kg Allergies Allergy/AdvReac Type Severity Reaction Status Date / Time metformin AdvReac Intermediate RESTLESSNES Verified 12/26/23 14:11 S Medications Home Medications Medication Instructions Recorded Confirmed Last Taken blood sugar diagnostic (OneTouch #100 ea 10/07/22 12/08/23 Unknown Ultra Test strips) cyanocobalamin (vitamin B-12) 1,000 mcg IM MONTHLY #1 ea 10/07/22 12/26/23 12/19/23 1,000 mcg/mL injection kit OneTouch Delica Plus Lancet 33 #300 ea 01/09/23 12/08/23 Unknown gauge (lancets) albuterol sulfate 90 mcg/actuation 2 puff inhalation Q4 PRN Shortness 02/24/23 12/26/23 Unknown aerosol inhaler Of Breath Or Wheezing #8.5 grams insulin glargine 100 unit/mL 15 unit subcut QPM 02/28/23 12/26/23 12/25/23 subcutaneous solution (Lantus U-100 Insulin) meclizine 25 mg tablet 25 mg PO DAILY PRN 02/28/23 12/29/23 Unknown DIZZINESS/VERTIGO pen needle, diabetic 32 gauge x #100 ea 06/12/23 12/08/23 Unknown 5/32" (Easy Comfort Pen [place]) levothyroxine 25 mcg tablet 37.5 mcg (1.5 x 25 mcg) PO QAM 07/30/23 12/26/23 12/26/23 #135 tabs apixaban 5 mg tablet (Eliquis) 5 mg PO BID #60 tabs 09/16/23 12/26/23 12/26/23 duloxetine 60 mg capsule,delayed 60 mg PO QAM 09/26/23 12/26/23 12/26/23 release (Cymbalta) pantoprazole 40 mg tablet,delayed 40 mg PO QAM #90 tabs 10/07/23 12/26/23 12/26/23 release (Protonix) atorvastatin 40 mg tablet 40 mg PO HS #90 tabs 10/14/23 12/26/23 12/25/23 losartan 25 mg tablet 25 mg PO QAM 10/17/23 12/26/23 12/26/23 oxycodone 10 mg tablet 10 mg PO UD PRN Pain 10/17/23 12/26/23 10/16/23 phenazopyridine 95 mg tablet 95 mg PO TID PRN Urinary Pain 10/17/23 12/26/23 Unknown potassium chloride 20 mEq 20 meq PO QAM 10/17/23 12/26/23 12/26/23 tablet,extended release diltiazem HCl 360 mg capsule,24 360 mg PO QAM #90 caps 12/16/23 12/26/23 12/26/23 hr,extended release (Tiazac) furosemide 20 mg tablet 20 mg PO DAILY #30 tabs 12/18/23 12/26/23 12/26/23 nystatin 100,000 unit/gram topical 1 applic topical DAILY #30 grams 12/18/23 12/26/23 12/26/23 powder doxazosin 2 mg tablet 2 mg PO DAILY 1 month #30 tabs 12/31/23 Unknown Active Medications Generic Name Dose Route Start Last Admin Trade Name Freq PRN Reason Stop Dose Admin Doxazosin Mesylate 2 mg 01/13/24 09:00 01/17/24 08:04 Doxazosin Mesylate Tab 2 Mg Tab PO 02/12/24 08:59 2 mg DAILY RUTH Administration Duloxetine HCl 60 mg 01/13/24 09:00 01/17/24 08:04 Duloxetine Hcl 60 Mg Cap PO 02/12/24 08:59 60 mg QAM RUTH Administration Pantoprazole Sodium 40 mg/ 10 mls @ 5 mls/min 01/13/24 21:00 01/17/24 21:06 Syringe IV 02/12/24 20:59 5 mls/min BID RUTH Administration Cefazolin Sodium 2,000 mg in 15 mls @ 3.75 mls/min 01/15/24 12:00 01/18/24 05:06 Ancef 2000mg IV 01/29/24 11:59 3.75 mls/min Q8H RUTH Administration Protocol Insulin Aspart 0 units 01/16/24 16:35 01/17/24 21:30 Insulin Aspart Per Unit Charge SC 02/15/24 16:34 Not Given ACHS RUTH Insulin Glargine 8 units 01/17/24 21:00 01/17/24 21:31 Lantus Per Unit Charge SQ 02/16/24 20:59 8 units QPM RUTH Administration Protocol Levothyroxine Sodium 37.5 mcg 01/13/24 06:30 01/18/24 05:15 Levothyroxine Sodium 25 Mcg Tablet PO 02/12/24 06:29 37.5 mcg DAILYBB RUTH Administration Miscellaneous 15 - 30 gm 01/13/24 01:45 01/17/24 07:17 Carbohydrates For Hypoglycemia PO 02/12/24 01:44 15 gm UD PRN Administration Hypoglycemia Treatment Morphine Sulfate 2 mg 01/15/24 11:18 01/17/24 19:52 Morphine Sulfate 2 Mg/Ml Carp IV 01/29/24 11:17 2 mg Q4 PRN Administration Moderate Pain (Scale 4, 5, 6) Nystatin 1 appln 01/13/24 09:00 01/17/24 08:04 Nystatin Powder 15gm Btl EXT 02/12/24 08:59 1 appln DAILY RUTH Administration Oxycodone HCl 10 mg 01/15/24 11:19 01/18/24 05:15 Oxycodone Hcl Ir 5 Mg Tab (Immediate Release) PO 01/27/24 01:14 10 mg Q4H PRN Administration Pain NPO Date Last Intake of Fluids: 01/17/24 Time Last Intake of Fluids: 00:00 Date Last Intake of Solids: 01/17/24 Time Last Intake of Solids: 00:00 Past Medical History Medical History Human metapneumovirus pneumonia Infected venous access port 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 History of blood transfusion Closed fracture of left distal fibula Breast cancer (12/18/15) "Abnormal left breast mammogram Status post core needle biopsy 12/18/2015 revealing infiltrating ductal carcinoma Estrogen receptor positive, progesterone receptor positive, HER-2/po negative Status post left needle localization lumpectomy and sentinel lymph node biopsy 01/04/2016 Stage pT1c pN0M0 Status post completion of radiation therapy 02/13/2016 received 3850 cGy utilizing accelerated partial breast irradiation." On 01/17/16 14:10 Deidre Orta wrote "Abnormal left breast mammogram Status post core needle biopsy 12/18/2015 revealing infiltrating ductal carcinoma Estrogen receptor positive, progesterone receptor positive, HER-2/po negative Status post left needle localization lumpectomy and sentinel lymph node biopsy 01/04/2016 Stage pT1c pN0M0" Generalized weakness Lung nodules monitoring Urinary frequency Pacemaker 2019, follows with Dr Ramires. checks Q6 months. Neuropathy Aortic stenosis Mild aortic stenosis (MERLENE 1.6cm2; MG 7.8mmHg) per 12/2019 echo Diabetes mellitus, type 2 IDDM Degenerative disc disease Hx of cardiac pacemaker Implanted 2019 (tachy-monica syndrome), [employer] device Follows with Dr. Ramires Liver mass Pt denies but 05/17/20 PET scan shows 2.5 right hepatic lobe mass consistent with known hepatic metastasis Anemia h/o blood transfusions Infiltrating ductal carcinoma of left breast Initial Dx 2015- s/p lumpectomy, XRT and anastrozole Metastatic breast cancer 03/2020, follows with [facility] Peripheral neuropathy Hands (B/L CTS) Obstructive sleep apnea "Resolved" s/p gastric bypass (? retested) Hypercholesterolemia Gastroesophageal reflux disease controlled, stable per pt Chronic pain Cervical spine disease Full ROM per pt Exercise / Class Metabolic Activity II 4-5 Yardwork/Stairs/Walk up hill Past Family History Family History Unknown Breast cancer Emphysema lung Mother Diabetes Heart disease Father Heart disease Other No family history of adverse response to anesthesia Denies family history of Ovarian cancer Prostate cancer Coronary heart disease Colorectal cancer Past Surgical History Surgical History H/O breast biopsy (05/29/23) Skin, left breast, 2 punch biopsies: In office procedure Dr. Alvarez - Fibrosing dermatitis. - See comment Status post revision of total replacement of right knee History of removal of Port-a-Cath (01/11/22) Infected port right anterior chest removed Dr. Shah S/P cardiac pacemaker procedure 2019 History of surgery Right knee TKA revision with spacer (07/11/2021): SAB at L3-4 (x2 attempts) + PNB at [facility]. No issues noted per post-op anesthesia progress note. History of carpal tunnel surgery of left wrist 06/2021 History of carpal tunnel surgery of right wrist Port-A-Cath in place hx - 05/2020 since removed d/t infection at port 12/2021 History of colonoscopy History of evacuation of hematoma Hematoma right breast and right chest 08/31/13 Dr. Shah H/O bilateral hip replacements Status post repair of ventral hernia History of total knee arthroplasty R/L Status post total abdominal hysterectomy and bilateral salpingo-oophorectomy Status post lumbar spine surgery for decompression of spinal cord Status post partial mastectomy of left breast Status post panniculectomy History of section x1 Status post laparoscopic cholecystectomy Status post gastric bypass for obesity Status post arthroscopy of left shoulder Status post appendectomy Past Anesthesia History No Hx of Anesthesia Complications and No Family Hx of Anesthesia Complications History of PONV No Hx of PONV and No Hx of Motion Sickness Social History Smoking Status: Never smoker tobacco type: cigarettes Do You Dip or Chew Tobacco: No Hx Alcohol Use: No Alcohol type: beer and wine alcohol intake frequency: holidays/special occasions only Hx Substance Use: No substance use type: does not use Physical Exam Vital Signs Last Vital Signs Temp 37.3 C 01/18/24 03:59 Pulse 60 01/18/24 07:18 Resp 16 01/18/24 03:59 BP 147/73 H 01/18/24 03:59 Pulse Ox 93 01/18/24 03:59 O2 Del Method Room Air 01/18/24 03:59 O2 Flow Rate 1 01/13/24 06:46 ENMT Mouth: + edentulous Thyromental Distance: > or= 3.5 Finger Breadths Mallampati Class: II Neck normal visual inspection Respiratory normal respiratory effort Auscultation: lungs clear to auscultation bilaterally Cardiovascular Rate/Rhythm: regular rate and regular rhythm Chest (Breasts) Chest: + pacemaker and + vascular access device or port Psychiatric Orientation: alert Testing Laboratory Results 01/18/24 05:53 01/18/24 05:53 PT 11.5 Seconds (9.0-12.0) 01/16/24 06:17 INR 1.1 (0.9-1.1) 01/16/24 06:17 APTT 50 Seconds (21-31) H 01/12/24 18:15 Urine Color [place] 01/13/24 Unknown Urine Appearance Cloudy (Clear) A 01/13/24 Unknown Urine pH (4.5-7.5) 01/13/24 Unknown Ur Specific [place] 1.020 (1.000-1.030) 01/13/24 Unknown Urine Protein (Negative) 01/13/24 Unknown Urine Glucose (UA) (Negative) 01/13/24 Unknown Urine Ketones (Negative) 01/13/24 Unknown Urine Nitrite (Negative) 01/13/24 Unknown Ur Leukocyte Esterase (Negative) 01/13/24 Unknown Urine WBC (Auto) >50 /hpf (0-5) 01/13/24 Unknown Urine RBC (Auto) >20 /hpf (0-4) 01/13/24 Unknown U Hyaline Cast (Auto) 3-5 /lpf (0-5) 01/13/24 Unknown U Epithel Cells (Auto) >20 /lpf (0-5) H 01/13/24 Unknown Urine Bacteria (Auto) 3+ (Negative) H 01/13/24 Unknown Urine RBC Not Reportable 01/13/24 Unknown Urine WBC Not Reportable 01/13/24 Unknown Ur Epithelial Cells Not Reportable 01/13/24 Unknown Blood Type O Positive 01/12/24 19:55 Antibody Screen NEGATIVE 01/12/24 19:55 01/12/24 18:45 Aerobic Blood Culture - Preliminary Blood Staphylococcus aureus Anaerobic Blood Culture - Final No growth in Anaerobic bottle after 5 days. 01/14/24 04:43 Aerobic Blood Culture - Preliminary Blood No growth in Aerobic bottle after 48 hours. Anaerobic Blood Culture - Final 01/13/24 18:03 Aerobic Blood Culture - Preliminary Blood No growth in Aerobic bottle after 48 hours. Anaerobic Blood Culture - Final 01/13/24 Unknown Urine Culture - Final Urine,Clean Catch Klebsiella pneumoniae ESBL 01/17/24 21:10 POC Glucose 111 H
--- NOTE | 2024-01-18 08:39 | Operative Report ---
Post Operative Report Pre & Post Diagnosis Operation Date: 01/18/24 07:35 MSSA bacteremia I identified the patient and participated in the time-out.: Yes Procedure Operation Date: 01/18/24 07:35 Removal of infected right internal jugular vein port Surgeon Brian Kingston MD Tour Production Supervisor none Estimated Blood Loss 4 Findings Consistent with Post-Op Diagnosis Intact port Specimens Catheter tip sent for culture Drains None Anesthesia Type MAC Complications None Indications This is a 73-year-old female with cancer being treated through a port. She is admitted with sepsis and ID was consulted and recommended removal for a port. Will plan on doing this in the OR secondary to her low platelet count. She understands all the risks and wishes to proceed. Description of Procedure Patient was taken the OR was placed in the supine position. She underwent excellent monitored anesthetic care. Her right chest and neck were prepped and draped in normal sterile fashion. 1% Xylocaine was used to create a field block. A 15 blade knife was used to cut down to the port. The port was freed using cautery. Once this was done the port was completely removed. The catheter tip was sent for culture. Pressure was held at the insertion site of the internal right IJ vein. Using interrupted nylon sutures the skin was closed. A sterile dressing was applied. Patient tolerated the procedure without complications. I attest to the content of the Intraoperative Record and any orders documented therein. Any exceptions are noted below.
[2024-01-18] MEDS: LIDOCAINE 1%/EPINEPHRINE 1:100,000 50 ML VIAL ONE (08:42)
--- NOTE | 2024-01-18 08:53 | Anesthesiology Progress Note ---
Date of Service January 18, 2024 Anesthesia Post Procedure Vital Signs Vital Signs: Temp Pulse Pulse Resp BP Pulse Ox O2 Del Method 01/18/24 07:18 60 01/18/24 03:59 37.3 C 59 L 16 147/73 H 93 Room Air 01/17/24 22:57 37.2 C 55 L 18 144/65 H 95 Room Air 01/17/24 21:36 Room Air 01/17/24 19:46 36.8 C 60 18 120/55 L 96 Room Air 01/17/24 15:00 36.5 C 60 18 122/75 96 Room Air 01/17/24 13:44 60 01/17/24 11:13 Room Air 01/17/24 10:53 37.0 C 58 L 16 124/74 94 Room Air Pain Intensity Generalized: Pain Intensity: 9 Back: Pain Intensity: 8 Left Generalized: Pain Intensity: 10 Transfer of Care Handoff Completed per policy Notes Mental Status: alert / awake / arousable Patient Amnestic to Procedure: Yes Nausea / Vomiting: adequately controlled Pain: adequately controlled Airway Patency, RR, SpO2: stable & adequate BP & HR: stable & adequate Hydration State: stable & adequate Anesthetic Complications: no major complications apparent
[2024-01-18] MEDS ORDERED: Nursing to Pharmacy Communication SCH (10:00)
[2024-01-18] MEDS ORDERED: INSULIN ASPART PER UNIT CHARGE SC SCH (12:00)
[2024-01-18] MEDS: INSULIN ASPART PER UNIT CHARGE SC SCH (12:07)
[2024-01-18] MEDS: BACITRACIN OINT 14 GM TUBE EXT SCH (13:47)
[2024-01-18] MEDS: APIXABAN 5 MG TABLET PO SCH (21:05)
--- NOTE | 2024-01-19 06:40 | Surgery Progress Note ---
Date of Service January 19, 2024 Assessment & Plan (1) MSSA bacteremia: Plan: port removed take out stitches in 2 weeks will sign off Admission and Anticipated Discharge Date Admission Date: January 12, 2024 Subjective doing well Physical Exam Skin: incision OK Results & Data Vital Signs (Past 12 Hours) Vital Signs Temp Pulse Resp BP Pulse Ox O2 Del Method 01/18/24 23:25 36.8 C 59 L 18 132/60 95 Room Air 01/18/24 21:04 Room Air 01/18/24 19:52 37.2 C 59 L 18 151/70 H 95 Room Air
--- NOTE | 2024-01-19 13:42 | Hospitalist Progress Note ---
Date of Service January 19, 2024 Assessment & Plan (1) Shock: (2) Anemia: (3) Atrial fibrillation: (4) Diabetes type 2, controlled: Plan 73yo female with history of breast cancer metastatic to liver, on chemotherapy - follows with Dr. De Luna. #Shock: resolved #MSSA bacteremia #ESBL UTI - on admission: elevated procalcitonin at 21.5 as well as elevated lactate at 10.2. - cont ertapenem - discussed case with ID, given immunocompromised state, recs removal of port as well as JOSE to evaluate her valves and PPM - port removed on 01/18/24 by gen surgery - case discussed with cards, recs not doing JOSE due to platelet count being in the 50s, recs reassessing on Friday01/20/24 Platelts now above 60k, will recheck on 01/19 #metabolic encephalopathy Suspect septic shock did have ESBL Klebsiella outpt 01/06, confirmed on repeat sensitive to Ertapenem only, blood cultures with MSSA x 1 Ct thoracic and lumbar spine as with pain eval for mets or infection repeat blood cultures negative at this time appropriate random cortisol #Burn - hand and left thigh - ER initially had talked with [facility] and recommended conservative management - bacitracin ordered - cont wound care #Anemia: unclear if anemia secondary to chemotherapy, chronic inflammation, or recent acute blood loss has h/o chronic iliopsoas bleed bolus iv protonix hgb augmented with transfusion 5.2 to 8.6, remains stable >8 on 01/18 #Atrial fibrillation: pt is chronically anticoagulated with Eliquis, however has elevated INR likely due to liver disease, continue to hold Anticoagulation INR has been up without meds troponin ranged from 56 to 61, suspect demand ischemia in face of sepsis, not suspecting ACS #Diabetes type 2, controlled: history of DM, Last [id number] on 12/27/23 -Continue Lantus 15u qHS -ISS - goal blood sugar 110 - 180 -s/p Calcium gluconate x 3 amps given for low ionized calcium of 1.11 Overall outlook is improving PT/OT: recs rehab 01/16: pt's daughter Lulu updated Added magic mouthwash on 01/18 Admission and Anticipated Discharge Date Admission Date: January 12, 2024 Subjective Patient is a poor hsitorian. Review of Systems Review of Systems: All systems reviewed & are unremarkable except as noted in HPI & below Physical Exam Physical Exam: pt iappears comfortable. does have met breast ca cardiac is regular lungs are diminished but clear wounds addressed by wound care Results & Data Results & Data Vital Signs (Past 12 Hours) Vital Signs Temp Pulse Pulse Resp BP Pulse Ox O2 Del Method 01/19/24 11:30 36.8 C 66 18 123/57 L 97 Room Air 01/19/24 10:22 Room Air 01/19/24 07:27 37.2 C 62 18 128/66 94 Room Air 01/19/24 06:52 60 PG Care Time/CCT Total # of Minutes Spent Total Time Spent with Patient: Total time spent is greater than 50% in coordination of care (as documented) at patient's floor/unit and/or counseling patient: Coding Level of Care Code 61054 SUB INP/OBS CARE 2/35MIN Diagnoses Shock R57.9 Anemia D64.9 Anemia type: unspecified type Atrial fibrillation, unspecified type I48.91 Atrial fibrillation type: unspecified Controlled type 2 diabetes mellitus without complication, with long-term current use of insulin E11.9; Z79.4 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
--- NOTE | 2024-01-19 13:44 | Pharmacy Report ---
Pharmacy Glycemic Short Note 2 - Date of Service January 19, 2024 - Glycemic Short BSG Results (Last 24 hours): 01/18/24 01/18/24 01/19/24 16:26 20:25 07:24 POC Glucose 150 H 150 H 117 H 01/19/24 11:13 POC Glucose 177 H OUTPATIENT ANTIDIABETIC REGIMEN: * Lantus 15 units SC qPM * HbA1c 6.3% on 12/27/23 ASSESSMENT: 01/18 * Patient resumed oral diet on 01/17. BSGs trending upward. * Current Lantus dose is at ~half of home dose. Will increase ~30%. * Tighten carb coverage back to 11, which worked well previously this admission. 01/16: * Good glycemic control yesterday - received 15 units of basal, no bolus - patient NPO during this time * Fasting hypoglycemia this AM, 64 mg/dL. Lantus dose was changed to dose per scale last evening, however patient received full dose of 15 units since BSG was greater than threshold of 120 mg/dL. Will d/c dose per scale and order set dose of Lantus 8 units for this evening (50% decrease) * NPO at midnight for infusaport removal 01/15: * Faith demonstrated good glycemic control yesterday (total 19 units insulin; 15 units basal + 4 units bolus) * Fasting BSG 130 mg/dL this AM. This is elevated compared to 01/14, however will hold off on increasing basal insulin given patient was made NPO at midnight. Lunch BSG below goal. * No changes to post prandial insulin coverage 01/13: * 73 yo F w metastatic breast CA on chemo admitted w sepsis 2nd MSSA bacteremia and ? concomitant UTI * BSG's above goal range for ICU patient starting 01/12 PM, after initiation of bicarb drip mixed in D5W @ 100 ml/hr. Patient now downgraded from ICU status (although remains in 1E) and bicarb drip was just discontinued * Anticipate that discontinuation of bicarb drip will help with improvement of BSG's. Will therefore not adjust Lantus for now (and continue home regimen/dose). Will however tighten Novolog slightly, to weight-based moderate stress estimate PLAN FOR INPATIENT GLYCEMIC CONTROL: * Basal insulin * Lantus 12 units SQ HS * Bolus insulin * NovoLog per scale ACHS or Q6hrs while NPO * Goal Range: Low 110 mg/dL - High 160 mg/dL * Correction Factor: 35 mg/dL/unit * Nutritional / Prandial insulin per carb ratio of 1 unit per 11 grams CHO consumed
[2024-01-19] MEDS: FIRST - Mouthwash BLM 119 ML PO SCH (14:44)
[2024-01-19] MEDS: LANTUS PER UNIT CHARGE SQ SCH (21:23)
[2024-01-20] MEDS: PHENAZOPYRIDINE HCL 200 MG TAB PO STA (04:44)
[2024-01-20 06:49] LABS: Hematocrit (blood only) 25.5 % (37.0-47.0); Hemoglobin 8.1 g/dl (12.0-16.0); Mean Corpuscular Hemoglobin 29.6 pg (25.0-34.0); Mean Corpuscular Hgb Conc 31.8 g/dL (32.0-36.0); Mean Corpuscular Volume 93.1 fL (80.0-100.0); Platelet Count 90 K/uL (130-400); RDW Coefficient of Variation 17.2 % (11.5-14.5); RDW Standard Deviation 57.7 fL (36.4-46.3); Red Blood Count 2.74 M/uL (4.20-5.40); White Blood Count 10.35 K/ul (4.8-10.8)
[2024-01-20 07:09] LABS: BUN Creatinine Ratio 25.6 (10-20); Calcium 7.3 mg/dl (8.6-10.3); Creatinine Clr Calc Pharmacy 105.8 ml/min; Est GFR (African American) 115.3 ml/min; Est GFR (Non-African American) 99.5 ml/min; Potassium 4.2 mmol/L (3.5-5.1)
--- NOTE | 2024-01-20 12:59 | Pre Anesthesia Assessment ---
Date of Service January 20, 2024 Pre Sedation Assessment Vital Signs Temp Pulse Pulse Resp BP Pulse Ox O2 Del Method 01/20/24 11:17 36.8 C 59 L 17 130/68 94 Room Air 01/20/24 07:23 37.0 C 60 16 121/60 95 Room Air 01/20/24 06:55 60 01/20/24 04:42 36.7 C 58 L 20 134/72 99 Room Air 01/20/24 00:24 37.1 C 60 18 109/56 L 96 Room Air 01/19/24 21:42 60 01/19/24 20:01 36.6 C 60 18 116/62 97 Room Air 01/19/24 20:00 Room Air 01/19/24 15:23 60 01/19/24 14:46 36.8 C 60 18 130/54 L 96 Room Air Cardiovascular + regular rate Respiratory + respiratory effort normal Pre-Sedation Airway Assessment Smoking Status: Never smoker Hx Sleep Apnea: No Hx Difficult Intubation: No Short, Thick Neck: No Thyromental Distance: > or= 3.5 Finger Breadths Mallampati Class: II ASA: ASA3 Procedure Planning Contraindications for Sedation: none Current Medications Reviewed: Yes Notes The planned sedation has been discussed with the patient. Informed Consent was obtained. I have identified the patient, determined the appropriateness of sedation and have assessed the patient immediately prior to the procedure. All medicine(s) and interventions are by my order.
--- NOTE | 2024-01-20 13:40 | Post Anesthesia Assessment ---
Date of Service January 20, 2024 Post Sedation Assessment Vital Signs Temp Pulse Pulse Resp BP Pulse Ox O2 Del Method 01/20/24 13:35 60 14 155/62 H 100 Oxymask 01/20/24 13:32 60 14 163/62 H 96 Oxymask 01/20/24 13:28 60 14 146/53 H 96 Oxymask 01/20/24 13:13 60 14 122/61 97 Room Air 01/20/24 11:17 36.8 C 59 L 17 130/68 94 Room Air 01/20/24 07:23 37.0 C 60 16 121/60 95 Room Air 01/20/24 06:55 60 01/20/24 04:42 36.7 C 58 L 20 134/72 99 Room Air 01/20/24 00:24 37.1 C 60 18 109/56 L 96 Room Air 01/19/24 21:42 60 01/19/24 20:01 36.6 C 60 18 116/62 97 Room Air 01/19/24 20:00 Room Air 01/19/24 15:23 60 01/19/24 14:46 36.8 C 60 18 130/54 L 96 Room Air Recovery Score Activity: Moves 4 extremities Respiration: Deep Breath/Cough Circulation: +/-20% PreAnes Value Consciousness: Arouseable (by name) Oxygen Saturation: O2 needed for >90% Post Anesthesia Score: 10 Discharge Sedation Level of Care: Fast Track Phase II Post Sedation Plan On clinical assessment, the patient appears to have tolerated the sedation without complications. Patient is recovering as anticipated. Patient will continue to be monitored by nursing and may be discharged when sedation discharge criteria are met per below protocol. Upon Completions of procedure up to 15 minutes continue every 5 minute vital signs and the P.A.R. score; then discharge to a Phase I or Fast Track to Phase II per the following guidelines: * Discharge Patient to appropriate Phase II area if PAR is 8 or greater or return to pre- procedure baseline. The post - procedure orders will be as directed. * If PAR score is less than 8 or not return to pre-procedure baseline then patient will follow Phase I monitoring till PAR is reached for Phase II. The Phase I may be done in procedure room or may call to secure a Phase I area. * If naloxone or flumazenil are used for reversal, hold in Phase I for continued monitoring from when last reversal dose was given for a minimum of 60 minutes or longer pending the nurse and/or physician discretion of patient condition before discharge to Phase II. Please call the Sedation Physician to re-evaluate and complete post-note for discharge to Phase II area. Do NOT discharge from procedure sedation or Phase 1 until post- sedation evaluation note is complete by procedure /sedation MD Sedation Discharge Instructions to be given to the patient at discharge to home.
--- NOTE | 2024-01-20 15:57 | XCELERA ---
[id number]
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
[2024-01-20] MEDS: BENZOCAINE/TETRACAIN/BUTAM 50 APPLN/5 GM CAN EXT ONE (16:17)
[2024-01-20] MEDS: MIDAZOLAM HCL 5 MG/ML 1 ML VIAL ONE (16:18)
[2024-01-20] MEDS: fentaNYL citrate PF 100 MCG/2 ML VIAL ONE (16:18)
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
[2024-01-20] MEDS: LANTUS PER UNIT CHARGE SQ SCH (21:31)
--- NOTE | 2024-01-21 11:49 | Pharmacy Report ---
Pharmacy Glycemic Short Note 2 - Date of Service January 21, 2024 - Glycemic Short BSG Results (Last 24 hours): 01/20/24 01/20/24 01/20/24 11:36 16:10 20:23 POC Glucose 98 77 148 H 01/21/24 01/21/24 07:12 11:35 POC Glucose 103 H 134 H OUTPATIENT ANTIDIABETIC REGIMEN: * Lantus 15 units SC qPM * HbA1c 6.3% on 12/27/23 ASSESSMENT: 01/20 * Blood sugars ranging 77-148 mg/dL yesterday * Received 10 units of basal insulin, no bolus insulin * NPO yesterday for JOSE, diet ordered post procedure but intake minimal * Do not anticipate any changes to glycemic regimen today 01/18 * Patient resumed oral diet on 01/17. BSGs trending upward. * Current Lantus dose is at ~half of home dose. Will increase ~30%. * Tighten carb coverage back to 11, which worked well previously this admission. 01/16: * Good glycemic control yesterday - received 15 units of basal, no bolus - patient NPO during this time * Fasting hypoglycemia this AM, 64 mg/dL. Lantus dose was changed to dose per scale last evening, however patient received full dose of 15 units since BSG was greater than threshold of 120 mg/dL. Will d/c dose per scale and order set dose of Lantus 8 units for this evening (50% decrease) * NPO at midnight for infusaport removal 01/15: * Faith demonstrated good glycemic control yesterday (total 19 units insulin; 15 units basal + 4 units bolus) * Fasting BSG 130 mg/dL this AM. This is elevated compared to 01/14, however will hold off on increasing basal insulin given patient was made NPO at midnight. Lunch BSG below goal. * No changes to post prandial insulin coverage 01/13: * 73 yo F w metastatic breast CA on chemo admitted w sepsis 2nd MSSA bacteremia and ? concomitant UTI * BSG's above goal range for ICU patient starting 01/12 PM, after initiation of bicarb drip mixed in D5W @ 100 ml/hr. Patient now downgraded from ICU status (although remains in 1E) and bicarb drip was just discontinued * Anticipate that discontinuation of bicarb drip will help with improvement of BSG's. Will therefore not adjust Lantus for now (and continue home regimen/dose). Will however tighten Novolog slightly, to weight-based m oderate stress estimate PLAN FOR INPATIENT GLYCEMIC CONTROL: * Basal insulin * Lantus 8-10 units SQ HS (see EHR for details) * Bolus insulin * NovoLog per scale ACHS or Q6hrs while NPO * Goal Range: Low 110 mg/dL - High 160 mg/dL * Correction Factor: 35 mg/dL/unit * Nutritional / Prandial insulin per carb ratio of 1 unit per 11 grams CHO consumed
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
[2024-01-22 06:50] LABS: Hematocrit (blood only) 25.1 % (37.0-47.0); Hemoglobin 7.8 g/dl (12.0-16.0); Mean Corpuscular Hemoglobin 29.2 pg (25.0-34.0); Mean Corpuscular Hgb Conc 31.1 g/dL (32.0-36.0); Mean Platelet Volume 12.5 fL (9.4-12.4); Platelet Count 131 K/uL (130-400); RDW Standard Deviation 56.3 fL (36.4-46.3); Red Blood Count 2.67 M/uL (4.20-5.40); White Blood Count 6.93 K/ul (4.8-10.8)
[2024-01-22 07:26] LABS: Calcium 7.5 mg/dl (8.6-10.3); Est GFR (African American) 118.1 ml/min; Est GFR (Non-African American) 101.9 ml/min; Potassium 4.2 mmol/L (3.5-5.1)
--- NOTE | 2024-01-22 12:00 | XRay Report ---
XR chest 1V portable CLINICAL HISTORY: right PICC tip placement TECHNIQUE: Single frontal radiograph of the chest was obtained. Comparison: Comparison is made to chest radiograph 01/12/2024 FINDINGS: A right PICC terminates at the left atrium. An implanted pacemaker is seen. Calcified aortic knob is seen. Left shoulder arthroplasty is seen. The lungs are clear. No evidence of pleural effusion or pne umothorax. IMPRESSION: Right PICC terminates in the left atrium and can be withdrawn approximately 3 cm for improved positio jeermy. ACT 112: Negative or not required by law. Electronically signed by: Emre Riojas M.D. 01/22/2024 11:58 AM
--- NOTE | 2024-01-22 14:43 | XRay Report ---
XR chest 1V portable HISTORY: 73 years-old Female right PICC tip placement after adjustment status post placement of a ri ght-sided PICC COMPARISON: Chest radiograph of same day at 11:17 AM TECHNIQUE: AP view of the chest FINDINGS: Dual-lead left subclavian pacer. Left shoulder arthroplasty. Cardiomegaly. Pulmonary vascular congest ion. Trace right and small left pleural effusions with mild left basilar predominant opacities. A rig ht-sided PICC is again noted with distal tip in the expected location of the superior cavoatrial junc tion. IMPRESSION: 1. Distal tip of right-sided PICC projects over the superior cavoatrial junction. 2. Cardiomegaly with pulmonary vascular congestion. 3. Trace right and small left pleural effusions with left greater than right bibasilar densities. ACT 112: Negative or not required by law. The above report was generated using voice recognition software. It may contain grammatical, syntax o r spelling errors. Electronically signed by: Jeremy Batres M.D. 01/22/2024 2:42 PM
[2024-01-22] MEDS ORDERED: Nursing to Pharmacy Communication SCH (15:45)
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
[2024-01-23 08:40] LABS: Hematocrit (blood only) 24.5 % (37.0-47.0); Hemoglobin 7.7 g/dl (12.0-16.0); Mean Corpuscular Hemoglobin 29.2 pg (25.0-34.0); Mean Corpuscular Hgb Conc 31.4 g/dL (32.0-36.0); Mean Corpuscular Volume 92.8 fL (80.0-100.0); Platelet Count 144 K/uL (130-400); RDW Coefficient of Variation 16.3 % (11.5-14.5); Red Blood Count 2.64 M/uL (4.20-5.40); White Blood Count 6.84 K/ul (4.8-10.8)
[2024-01-23 08:46] LABS: BUN Creatinine Ratio 30.8 (10-20); Calcium 7.5 mg/dl (8.6-10.3); Creatinine Clr Calc Pharmacy 116.9 ml/min; Est GFR (African American) 119.1 ml/min; Est GFR (Non-African American) 102.7 ml/min; Potassium 4.2 mmol/L (3.5-5.1)
--- NOTE | 2024-01-23 14:53 | Pharmacy Report ---
Pharmacy Glycemic Short Note 2 - Date of Service January 23, 2024 - Glycemic Short BSG Results (Last 24 hours): 01/22/24 01/22/24 01/23/24 16:27 19:34 07:59 Glucose 104 H POC Glucose 116 H 149 H 113 H 01/23/24 12:01 Glucose POC Glucose 116 H OUTPATIENT ANTIDIABETIC REGIMEN: * Lantus 15 units SC qPM * HbA1c 6.3% on 12/27/23 ASSESSMENT: 01/22 * Patient received only 6 units of insulin yesterday, of which 5 units were basal * Fasting BSG 104 mg/dL - continue same basal scale for HS * Patient PO intake improving today, may need to adjust basal scale tomorrow 01/20 * Blood sugars ranging 77-148 mg/dL yesterday * Received 10 units of basal insulin, no bolus insulin * NPO yesterday for JOSE, diet ordered post procedure but intake minimal * Do not anticipate any changes to glycemic regimen today 01/18 * Patient resumed oral diet on 01/17. BSGs trending upward. * Current Lantus dose is at ~half of home dose. Will increase ~30%. * Tighten carb coverage back to 11, which worked well previously this admission. 01/16: * Good glycemic control yesterday - received 15 units of basal, no bolus - patient NPO during this time * Fasting hypoglycemia this AM, 64 mg/dL. Lantus dose was changed to dose per scale last evening, however patient received full dose of 15 units since BSG was greater than threshold of 120 mg/dL. Will d/c dose per scale and order set dose of Lantus 8 units for this evening (50% decrease) * NPO at midnight for infusaport removal 01/15: * Faith demonstrated good glycemic control yesterday (total 19 units insulin; 15 units basal + 4 units bolus) * Fasting BSG 130 mg/dL this AM. This is elevated compared to 01/14, however will hold off on increasing basal insulin given patient was made NPO at midnight. Lunch BSG below goal. * No changes to post prandial insulin coverage 01/13: * 73 yo F w metastatic breast CA on chemo admitted w sepsis 2nd MSSA bacteremia and ? concomitant UTI * BSG's above goal range for ICU patient starting 01/12 PM, after initiation of bicarb drip mixed in D5W @ 100 ml/hr. Patient now downgraded from ICU status (although remains in 1E) and bicarb drip was just discontinued * Anticipate that discontinuation of bicarb drip will help with improvement of BSG's. Will therefore not adjust Lantus for now (and continue home regimen/dose). Will however tighten Novolog slightly, to weight-based moderate stress estimate PLAN FOR INPATIENT GLYCEMIC CONTROL: * Basal insulin * Lantus 0-8 units SQ HS (see EHR for details) * Bolus insulin * NovoLog per scale ACHS or Q6hrs while NPO * Goal Range: Low 110 mg/dL - High 160 mg/dL * Correction Factor: 35 mg/dL/unit * Nutritional / Prandial insulin per carb ratio of 1 unit per 15 grams CHO consumed
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
[2024-01-24] MEDS: MELATONIN 3 MG TAB PO PRN (22:16)
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
--- NOTE | 2024-01-26 07:53 | Pharmacy Report ---
Pharmacy Glycemic Short Note 2 - Date of Service January 26, 2024 - Glycemic Short BSG Results (Last 24 hours): 01/25/24 01/25/24 01/25/24 07:50 11:53 16:50 POC Glucose 87 92 119 H 01/25/24 01/26/24 20:41 07:47 POC Glucose 149 H 98 OUTPATIENT ANTIDIABETIC REGIMEN: * Lantus 15 units SC qPM * HbA1c 6.3% on 12/27/23 ASSESSMENT: 01/25 * Patient receiving 8-14 units of insulin/day, 5 units basal. * Blood sugars at goal without hypoglycemia, Lantus on scale. * No changes in insulin dosing needed at this time. 01/22 * Patient received only 6 units of insulin yesterday, of which 5 units were basal * Fasting BSG 104 mg/dL - continue same basal scale for HS * Patient PO intake improving today, may need to adjust basal scale tomorrow 01/20 * Blood sugars ranging 77-148 mg/dL yesterday * Received 10 units of basal insulin, no bolus insulin * NPO yesterday for JOSE, diet ordered post procedure but intake minimal * Do not anticipate any changes to glycemic regimen today 01/18 * Patient resumed oral diet on 01/17. BSGs trending upward. * Current Lantus dose is at ~half of home dose. Will increase ~30%. * Tighten carb coverage back to 11, which worked well previously this admission. 01/16: * Good glycemic control yesterday - received 15 units of basal, no bolus - patient NPO during this time * Fasting hypoglycemia this AM, 64 mg/dL. Lantus dose was changed to dose per scale last evening, however patient received full dose of 15 units since BSG was greater than threshold of 120 mg/dL. Will d/c dose per scale and order set dose of Lantus 8 units for this evening (50% decrease) * NPO at midnight for infusaport removal 01/15: * Faith demonstrated good glycemic control yesterday (total 19 units insulin; 15 units basal + 4 units bolus) * Fasting BSG 130 mg/dL this AM. This is elevated compared to 01/14, however will hold off on increasing basal insulin given patient was made NPO at midnight. Lunch BSG below goal. * No changes to post prandial insulin coverage 01/13: * 73 yo F w metastatic breast CA on chemo admitted w sepsis 2nd MSSA bacteremia and ? concomitant UTI * BSG's above goal range for ICU patient starting 01/12 PM, after initiation of bicarb drip mixed in D5W @ 100 ml/hr. Patient now downgraded from ICU status (although remains in 1E) and bicarb drip was just discontinued * Anticipate that discontinuation of bicarb drip will help with improvement of BSG's. Will therefore not adjust Lantus for now (and continue home regimen/dose). Will however tighten Novolog slightly, to weight-based moderate stress estimate PLAN FOR INPATIENT GLYCEMIC CONTROL: * Basal insulin * Lantus 0-8 units SQ HS (see EHR for details) * Bolus insulin * NovoLog per scale ACHS or Q6hrs while NPO * Goal Range: Low 110 mg/dL - High 160 mg/dL * Correction Factor: 35 mg/dL/unit * Nutritional / Prandial insulin per carb ratio of 1 unit per 20 grams CHO consumed
[2024-01-26 08:03] LABS: Hematocrit (blood only) 24.8 % (37.0-47.0); Hemoglobin 7.6 g/dl (12.0-16.0); Mean Corpuscular Hemoglobin 28.7 pg (25.0-34.0); Mean Corpuscular Hgb Conc 30.6 g/dL (32.0-36.0); Mean Corpuscular Volume 93.6 fL (80.0-100.0); Mean Platelet Volume 12.6 fL (9.4-12.4); Platelet Count 143 K/uL (130-400); RDW Coefficient of Variation 16.9 % (11.5-14.5); RDW Standard Deviation 56.8 fL (36.4-46.3); Red Blood Count 2.65 M/uL (4.20-5.40); White Blood Count 5.45 K/ul (4.8-10.8)
[2024-01-26 08:15] LABS: BUN Creatinine Ratio 35.1 (10-20); Calcium 7.5 mg/dl (8.6-10.3); Creatinine Clr Calc Pharmacy 121.4 ml/min; Est GFR (African American) 120.3 ml/min; Est GFR (Non-African American) 103.8 ml/min; Potassium 4.3 mmol/L (3.5-5.1)
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
[2024-01-26] MEDS: PHENAZOPYRIDINE HCL 200 MG TAB PO STA (16:01)
[2024-01-26] MEDS: PHENAZOPYRIDINE HCL 100 MG TAB PO PRN (21:48)
[2024-01-27] MEDS: oxyCODONE HCL IR 5 MG TAB (IMMEDIATE RELEASE) PO PRN (06:08)
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
[2024-01-27] MEDS: PANTOprazole 40 MG TAB PO SCH (20:41)
--- NOTE | 2024-01-28 17:04 | Hospitalist Progress Note ---
Date of Service January 28, 2024 Assessment & Plan (1) Shock: Plan: 73yo female with history of breast cancer metastatic to liver, on chemotherapy - follows with Dr. De Luna. elevated procalcitonin at 21.5 as well as elevated lactate at 10.2. metabolic encephalopathy resolved Suspect septic shock now resolved blood cultures with MSSA x 1, ESBL Klebsiella(completed ertapenem 5 days ) TTE and JOSE no vegetation, moderate , but ID feels with amount of hardware and pacemaker, recommending Cefazolin LD via Picc 02/23 for staph bacteremia infusaport removed (2) Anemia: Plan: unclear if anemia secondary to chemotherapy, chronic inflammation, or recent acute blood loss has h/o chronic iliopsoas bleed convert to po protonix hgb augmented with transfusion 5.2 to 8.6, remains stable (3) Atrial fibrillation: Plan: pt is chronically anticoagulated with Eliquis, however has elevated INR likely due to liver disease, restarted on Anticoagulation cautiously INR has improved troponin ranged from 56 to 61, suspect demand ischemia in face of sepsis, not suspecting ACS (4) Diabetes type 2, controlled: Plan: history of DM, Last ZpzH2I=9.3 on 12/27/23 controlled -Continue Lantus per glycemic pharmacy protocol requiring small amounts only -ISS - goal blood sugar 110 - 180 Plan overall outlook is improving PT/OT Admission and Anticipated Discharge Date Admission Date: January 12, 2024 Subjective this pt biggest complaint is still with burning at anthony area, improved with barrier cream she is looking for rehab to build her strength and continue her wound care Physical Exam Physical Exam: Patient looks improved still some [place] area pain Card exam is regular lungs are clear with diminished at the bases Extremities are with trace edema Given patient recently has had a bath and has had multiple layers of cream applied will evaluate the patient's perineal area on the following day with nursing supervision Results & Data Results & Data Vital Signs (Past 12 Hours) Vital Signs Temp Pulse Resp BP Pulse Ox O2 Del Method 01/28/24 15:20 98.8 F 60 16 155/67 H 95 Room Air 01/28/24 09:57 Room Air 01/28/24 06:59 97.9 F 60 16 126/64 96 Room Air Laboratory Results Reviewed [id number] glucose PG Care Time/CCT Total # of Minutes Spent Total Time Spent with Patient: Total time spent is greater than 50% in coordination of care (as documented) at patient's floor/unit and/or counseling patient: Coding Level of Care Code 97567 SUB INP/OBS CARE MIN Diagnoses Shock R57.9 Anemia D64.9 Anemia type: unspecified type Atrial fibrillation, unspecified type I48.91 Atrial fibrillation type: unspecified Controlled type 2 diabetes mellitus without complication, with long-term current use of insulin E11.9; Z79.4 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
[2024-01-28] MEDS: PHENAZOPYRIDINE HCL 200 MG TAB PO STA (18:18)
[2024-01-28] MEDS: traMADol HCL 50 MG TABLET PO STA (18:20)
[2024-01-28] MEDS: oxyCODONE HCL IR 5 MG TAB (IMMEDIATE RELEASE) PO STA (18:33)
[2024-01-29] MEDS: PHENAZOPYRIDINE HCL 100 MG TAB PO PRN (08:55)
--- NOTE | 2024-01-29 09:57 | Pharmacy Report ---
Pharmacy Glycemic Sign Off Nt - Date of Service January 29, 2024 - Assessment & Plan ASSESSMENT: * Pharmacy was consulted by Dr Zamorano on 01/14/24 for glycemic control and to write orders per [facility] inpatient glycemic control protocol. * Major changes made by pharmacy to antidiabetic regimen include: * added novolog scale/Lantus scale * Patient has been receiving/requiring <10 units of insulin per day for adequate glycemic control * Regimen has only required minor adjustments over the past 48hrs to achieve this level of control * Do not anticipate further changes in patient status that would quickly deteriorate glycemic control (i.e. patient to be NPO for upcoming procedure, steroids tapering, starting tube feedings, etc). * Please see recommendations for outpatient antidiabetic regimen below. PLAN FOR INPATIENT GLYCEMIC CONTROL: No changes needed to current regimen. * Continue basal insulin with Lantus 0-5 units HS * Continue NovoLog per scale ACHS/Q6hrs while NPO * Goal range = 110-160 mg/dl * CF = 35 mg/dl/unit * CR = 1 unit for ever 20 g CHO consumed * Pharmacy is signing off of glycemic consult and will no longer be making adjustments to inpatient regimen. Please feel free to re-consult if needed. Thank you.
--- NOTE | 2024-01-29 16:57 | Hospitalist Progress Note ---
Date of Service January 29, 2024 Assessment & Plan (1) Shock: Plan: 73yo female with history of breast cancer metastatic to liver, on chemotherapy - follows with Dr. De Luna. elevated procalcitonin at 21.5 as well as elevated lactate at 10.2. metabolic encephalopathy resolved Suspect septic shock now resolved blood cultures with MSSA x 1, ESBL Klebsiella(completed ertapenem 5 days ) TTE and JOSE no vegetation, moderate , but ID feels with amount of hardware and pacemaker, recommending Cefazolin LD via Picc 02/23 for staph bacteremia Patient's urine culture did grow Cari glabrata this has been a persistent area of complaint for her over the last few days will institute Diflucan therapy intravenously to see if it improves her symptoms and if so we will complete a course of oral fluconazole infusaport removed (2) Anemia: Plan: unclear if anemia secondary to chemotherapy, chronic inflammation, or recent acute blood loss has h/o chronic iliopsoas bleed convert to po protonix hgb augmented with transfusion 5.2 to 8.6, remains stable (3) Atrial fibrillation: Plan: pt is chronically anticoagulated with Eliquis, however has elevated INR likely due to liver disease, restarted on Anticoagulation cautiously INR has improved troponin ranged from 56 to 61, suspect demand ischemia in face of sepsis, not suspecting ACS (4) Diabetes type 2, controlled: Plan: history of DM, Last GbqU1M=8.3 on 12/27/23 controlled -Continue Lantus per glycemic pharmacy protocol requiring small amounts only -ISS - goal blood sugar 110 - 180 Plan overall outlook is improving PT/OT Admission and Anticipated Discharge Date Admission Date: January 12, 2024 Subjective this pt biggest complaint is still with burning at anthony area, improved with barrier cream, still some dysuria improved with Pyridium Repeat urine culture shows Cari glabrata, wounds are improving with good wound care she is looking for rehab to build her strength and continue her wound care Physical Exam Physical Exam: Patient looks improved still some [place] area pain Card exam is regular lungs are clear with diminished at the bases Extremities are with trace edema With nursing supervision in the room her area was examined there is some prominence to the left labial majora however there is no fluctuance fluid collection or burn to the skin Results & Data Results & Data Vital Signs (Past 12 Hours) Vital Signs Temp Pulse Resp BP Pulse Ox O2 Del Method 01/29/24 15:24 97.3 F L 61 18 128/50 L 98 Room Air 01/29/24 07:53 Room Air 01/29/24 07:15 98.2 F 74 18 145/81 H 97 Room Air Laboratory Results Reviewed urine culture results showing Cari glabrata [facility] antibiotic therapy PG Care Time/CCT Total # of Minutes Spent Total Time Spent with Patient: Total time spent is greater than 50% in coordination of care (as documented) at patient's floor/unit and/or counseling patient: Coding Level of Care Code 17823 SUB INP/OBS CARE 3/50MIN Diagnoses Shock R57.9 Anemia D64.9 Anemia type: unspecified type Atrial fibrillation, unspecified type I48.91 Atrial fibrillation type: unspecified Controlled type 2 diabetes mellitus without complication, with long-term current use of insulin E11.9; Z79.4 Diabetes mellitus senior living insulin use: with electric meter reader use Diabetes mellitus complication status: without complication (2) Anemia Anemia type: unspecified type Qualified Code(s): D64.9 - Anemia, unspecified (3) Atrial fibrillation Atrial fibrillation type: unspecified Qualified Code(s): I48.91 - Unspecified atrial fibrillation (4) Diabetes type 2, controlled Diabetes mellitus senior living insulin use: with electric meter reader use Diabetes mellitus complication status: without complication Qualified Code(s): E11.9 - Type 2 diabetes mellitus without complications; Z79.4 - saw repairer (current) use of insulin
[2024-01-29] MEDS: FLUCONAZOLE 200 MG/100 ML BAG IV SCH (17:42)
[2024-01-30] MEDS: oxyCODONE HCL IR 5 MG TAB (IMMEDIATE RELEASE) PO ONE (10:07)
--- NOTE | 2024-01-30 12:34 | Hospitalist Progress Note ---
Date of Service January 30, 2024 Assessment & Plan (1) Shock: Plan: 73yo female with history of breast cancer metastatic to liver, on chemotherapy - follows with Dr. De Luna. elevated procalcitonin at 21.5 as well as elevated lactate at 10.2. metabolic encephalopathy resolved Suspect septic shock now resolved blood cultures with MSSA x 1, ESBL Klebsiella(completed ertapenem 5 days ) urine shows cari glabrata, pt with persistent symptoms, started flucona zole TTE and JOSE no vegetation, moderate , but ID feels with amount of hardware and pacemaker, recommending Cefazolin LD via Picc 02/23 for staph bacteremia infusaport removed (2) Anemia: Plan: unclear if anemia secondary to chemotherapy, chronic inflammation, or recent acute blood loss has h/o chronic iliopsoas bleed convert to po protonix hgb augmented with transfusion 5.2 to 8.6, remains stable (3) Atrial fibrillation: Plan: pt is chronically anticoagulated with Eliquis, however has elevated INR likely due to liver disease, restarted on Anticoagulation cautiously INR has improved troponin ranged from 56 to 61, suspect demand ischemia in face of sepsis, not suspecting ACS (4) Diabetes type 2, controlled: Plan: history of DM, Last AjrM0E=4.3 on 12/27/23 controlled -Continue Lantus per glycemic pharmacy protocol requiring small amounts only -ISS - goal blood sugar 110 - 180 Plan overall outlook is improving PT/OT Admission and Anticipated Discharge Date Admission Date: January 12, 2024 Subjective this pt biggest complaint is still with burning at [place] area, improved with barrier cream, still some dysuria improved with Pyridium Repeat urine culture shows Cari glabrata, wounds are improving with good wound care she is looking for rehab to build her strength and continue her wound care, pt refusing [facility] Physical Exam Physical Exam: Patient looks improved still some [place] area pain Card exam is regular lungs are clear with diminished at the bases Extremities are with trace edema 01/29/24 With nursing supervision in the room her area was examined there is some prominence to the left labial majora however there is no fluctuance fluid collection or burn to the skin Results & Data Results & Data Vital Signs (Past 12 Hours) Vital Signs Temp Pulse Resp BP Pulse Ox O2 Del Method 01/30/24 08:02 98.1 F 60 18 142/73 H 94 Room Air PG Care Time/CCT Total # of Minutes Spent Total Time Spent with Patient: Total time spent is greater than 50% in coordination of care (as documented) at patient's floor/unit and/or counseling patient: Coding Level of Care Code 16889 SUB INP/OBS CARE 2/35MIN Diagnoses Shock R57.9 Anemia D64.9 Anemia type: unspecified type Atrial fibrillation, unspecified type I48.91 Atrial fibrillation type: unspecified Controlled type 2 diabetes mellitus without complication, with long-term current use of insulin E11.9; Z79.4 Diabetes mellitus terminal system operator insulin use: with chcf use Diabetes mellitus complication status: without complication (2) Anemia Anemia type: unspecified type Qualified Code(s): D64.9 - Anemia, unspecified (3) Atrial fibrillation Atrial fibrillation type: unspecified Qualified Code(s): I48.91 - Unspecified atrial fibrillation (4) Diabetes type 2, controlled Diabetes mellitus terminal system operator insulin use: with chcf use Diabetes mellitus complication status: without complication Qualified Code(s): E11.9 - Type 2 diabetes mellitus without complications; Z79.4 - long term care phlebotomist (current) use of insulin
--- NOTE | 2024-01-31 12:40 | Hospitalist Progress Note ---
Date of Service January 31, 2024 Assessment & Plan (1) Shock: Plan: 73yo female with history of breast cancer metastatic to liver, on chemotherapy - follows with Dr. De Luna. elevated procalcitonin at 21.5 as well as elevated lactate at 10.2. metabolic encephalopathy resolved Suspect septic shock now resolved blood cultures with MSSA x 1, ESBL Klebsiella(completed ertapenem 5 days ) urine shows cari glabrata, pt with persistent symptoms, started flucona zole complete one week with persistent pain will remove fuentes 01/30 TTE and JOSE no vegetation, moderate , but ID feels with amount of hardware and pacemaker, recommending Cefazolin LD via Picc 02/23 for staph bacteremia infusaport removed (2) Anemia: Plan: unclear if anemia secondary to chemotherapy, chronic inflammation, or recent acute blood loss has h/o chronic iliopsoas bleed convert to po protonix hgb augmented with transfusion 5.2 to 8.6, remains stable (3) Atrial fibrillation: Plan: pt is chronically anticoagulated with Eliquis, however has elevated INR likely due to liver disease, restarted on Anticoagulation cautiously INR has improved troponin ranged from 56 to 61, suspect demand ischemia in face of sepsis, not suspecting ACS (4) Diabetes type 2, controlled: Plan: history of DM, Last HbqN1M=7.3 on 12/27/23 controlled -Continue Lantus per glycemic pharmacy protocol requiring small amounts only -ISS - goal blood sugar 110 - 180 Plan overall outlook is improving PT/OT Admission and Anticipated Discharge Date Admission Date: January 12, 2024 Subjective remains with burning at [place] area, improved with barrier cream, still some dysuria improved with Pyridium Repeat urine culture shows Cari glabrata, wounds are improving with good wound care will remove fuentes cath 01/31/24 she is looking for rehab to build her strength and continue her wound care, pt refusing [facility] Physical Exam Physical Exam: Patient looks improved still some [place] area pain Card exam is regular lungs are clear with diminished at the bases Extremities are with trace edema 01/29/24 With nursing supervision in the room her area was examined there is some prominence to the left labial majora however there is no fluctuance fluid collection or burn to the skin Results & Data Results & Data Vital Signs (Past 12 Hours) Vital Signs Temp Pulse Resp BP Pulse Ox O2 Del Method 01/31/24 07:40 Room Air 01/31/24 07:30 98.6 F 60 18 104/48 L 93 Room Air PG Care Time/CCT Total # of Minutes Spent Total Time Spent with Patient: Total time spent is greater than 50% in coordination of care (as documented) at patient's floor/unit and/or counseling patient: Coding Level of Care Code 40282 SUB INP/OBS CARE 2/35MIN Diagnoses Shock R57.9 Anemia D64.9 Anemia type: unspecified type Atrial fibrillation, unspecified type I48.91 Atrial fibrillation type: unspecified Controlled type 2 diabetes mellitus without complication, with long-term current use of insulin E11.9; Z79.4 Diabetes mellitus mcfp insulin use: with mcfp use Diabetes mellitus complication status: without complication (2) Anemia Anemia type: unspecified type Qualified Code(s): D64.9 - Anemia, unspecified (3) Atrial fibrillation Atrial fibrillation type: unspecified Qualified Code(s): I48.91 - Unspecified atrial fibrillation (4) Diabetes type 2, controlled Diabetes mellitus rat exterminator insulin use: with mcfp use Diabetes mellitus complication status: without complication Qualified Code(s): E11.9 - Type 2 diabetes mellitus without complications; Z79.4 - FPC (current) use of insulin
--- NOTE | 2024-02-01 15:56 | Hospitalist Progress Note ---
Date of Service February 01, 2024 Assessment & Plan (1) Shock: Plan: 73yo female with history of breast cancer metastatic to liver, on chemotherapy - follows with Dr. De Luna. elevated procalcitonin at 21.5 as well as elevated lactate at 10.2. metabolic encephalopathy resolved Suspect septic shock now resolved blood cultures with MSSA x 1, ESBL Klebsiella(completed ertapenem 5 days ) urine shows cari glabrata, pt with persistent symptoms, started flucona zole complete one week LD 02/04 with persistent pain will remove fuentes 01/30 TTE and JOSE no vegetation, moderate , but ID feels with amount of hardware and pacemaker, recommending Cefazolin LD via Picc 02/23 for staph bacteremia infusaport removed (2) Anemia: Plan: unclear if anemia secondary to chemotherapy, chronic inflammation, or recent acute blood loss has h/o chronic iliopsoas bleed convert to po protonix hgb augmented with transfusion 5.2 to 8.6, remains stable (3) Atrial fibrillation: Plan: pt is chronically anticoagulated with Eliquis, however has elevated INR likely due to liver disease, restarted on Anticoagulation cautiously INR has improved troponin ranged from 56 to 61, suspect demand ischemia in face of sepsis, not suspecting ACS (4) Diabetes type 2, controlled: Plan: history of DM, Last MtsB1G=9.3 on 12/27/23 controlled -Continue Lantus per glycemic pharmacy protocol requiring small amounts only -ISS - goal blood sugar 110 - 180 Plan overall outlook is improving PT/OT Admission and Anticipated Discharge Date Admission Date: January 12, 2024 Subjective improved dysuria with removal of fuentes 01/30 Repeat urine culture shows Cari glabrata, wounds are improving with good wound care she is looking for rehab to build her strength and continue her wound care, pt refusing [facility] considering [facility] Physical Exam Physical Exam: Patient looks improved still some [place] area pain Card exam is regular lungs are clear with diminished at the bases Extremities are with trace edema 01/29/24 With nursing supervision in the room her area was examined there is some prominence to the left labial majora however there is no fluctuance fluid collection or burn to the skin Results & Data Results & Data Vital Signs (Past 12 Hours) Vital Signs Temp Pulse Pulse Resp BP Pulse Ox O2 Del Method 02/01/24 13:27 97.9 F 61 18 165/67 H 95 Room Air 02/01/24 10:39 144/62 H 02/01/24 08:09 97.9 F 66 17 165/70 H 96 Room Air 02/01/24 08:00 Room Air 02/01/24 07:01 97.9 F 60 18 136/75 96 Room Air PG Care Time/CCT Total # of Minutes Spent Total Time Spent with Patient: Total time spent is greater than 50% in coordination of care (as documented) at patient's floor/unit and/or counseling patient: Coding Level of Care Code 68203 SUB INP/OBS CARE 2/35MIN Diagnoses Shock R57.9 Anemia D64.9 Anemia type: unspecified type Atrial fibrillation, unspecified type I48.91 Atrial fibrillation type: unspecified Controlled type 2 diabetes mellitus without complication, with long-term current use of insulin E11.9; Z79.4 Diabetes mellitus manager long term care insulin use: with manager long term care use Diabetes mellitus complication status: without complication (2) Anemia Anemia type: unspecified type Qualified Code(s): D64.9 - Anemia, unspecified (3) Atrial fibrillation Atrial fibrillation type: unspecified Qualified Code(s): I48.91 - Unspecified atrial fibrillation (4) Diabetes type 2, controlled Diabetes mellitus longterm insulin use: with longterm use Diabetes mellitus complication status: without complication Qualified Code(s): E11.9 - Type 2 diabetes mellitus without complications; Z79.4 - termite treater helper (current) use of insulin
[2024-02-01] MEDS: FLUCONAZOLE 100 MG TAB PO SCH (16:52)
[2024-02-02 06:42] LABS: Hemoglobin 7.3 g/dl (12.0-16.0); Mean Corpuscular Hemoglobin 28.6 pg (25.0-34.0); Mean Corpuscular Hgb Conc 30.4 g/dL (32.0-36.0); Mean Corpuscular Volume 94.1 fL (80.0-100.0); Mean Platelet Volume 13.9 fL (9.4-12.4); Platelet Count 93 K/uL (130-400); RDW Coefficient of Variation 16.6 % (11.5-14.5); RDW Standard Deviation 56.8 fL (36.4-46.3); Red Blood Count 2.55 M/uL (4.20-5.40); White Blood Count 4.35 K/ul (4.8-10.8)
[2024-02-02 07:04] LABS: BUN Creatinine Ratio 27.3 (10-20); Creatinine Clr Calc Pharmacy 102.1 ml/min; Est GFR (African American) 113.6 ml/min; Est GFR (Non-African American) 98.1 ml/min; Potassium 4.5 mmol/L (3.5-5.1)
--- NOTE | 2024-02-02 16:36 | Hospitalist Progress Note ---
Date of Service February 02, 2024 Assessment & Plan (1) Shock: Plan: 73yo female with history of breast cancer metastatic to liver, on chemotherapy - follows with Dr. De Luna. elevated procalcitonin at 21.5 as well as elevated lactate at 10.2. metabolic encephalopathy resolved Suspect septic shock now resolved blood cultures with MSSA x 1, ESBL Klebsiella(completed ertapenem 5 days ) urine shows cari glabrata, pt with persistent symptoms, started flucona zole complete one week LD 02/04 with persistent pain will remove fuentes 01/30, no help with pyridium or AZO, ? if estrogen cream will help TTE and JOSE no vegetation, moderate , but ID feels with amount of hardware and pacemaker, recommending Cefazolin LD via Picc 02/23 for staph bacteremia infusaport removed (2) Anemia: Plan: unclear if anemia secondary to chemotherapy, chronic inflammation, or recent acute blood loss has h/o chronic iliopsoas bleed convert to po protonix hgb augmented with transfusion , remains stable but low, no sign of blood loss ? anemia of chronic inflammation (3) Atrial fibrillation: Plan: pt is chronically anticoagulated with Eliquis, however has elevated INR likely due to liver disease, restarted on Anticoagulation cautiously INR has improved troponin ranged from 56 to 61, suspect demand ischemia in face of sepsis, not suspecting ACS (4) Diabetes type 2, controlled: Plan: history of DM, Last YdjO7E=3.3 on 12/27/23 controlled -Continue Lantus per glycemic pharmacy protocol requiring small amounts only -ISS - goal blood sugar 110 - 180 Plan overall outlook is improving PT/OT to subacute rehab soon, there are some financial issues that need to be solved but hopeful will happen soon large area of scalding on left inner thigh is healing still requires wound care Admission and Anticipated Discharge Date Admission Date: January 12, 2024 Subjective improved dysuria with removal of fuentes 01/30, however now with recurrent complaints, pt has multiple somatic complaints and frequently wants more pain medications Repeat urine culture shows Cari glabrata, wounds are improving with good wound care she is looking for rehab to build her strength and continue her wound care, pt refusing [facility] considering [facility] Physical Exam Physical Exam: Patient looks improved still some [place] area pain Card exam is regular lungs are clear with diminished at the bases Extremities are with trace edema 01/29/24 With nursing supervision in the room her area was examined there is some prominence to the left labial majora however there is no fluctuance fluid collection or burn to the skin Results & Data Results & Data Vital Signs (Past 12 Hours) Vital Signs Temp Pulse Resp BP Pulse Ox O2 Del Method 02/02/24 14:45 97.9 F 65 16 125/70 96 Room Air 02/02/24 07:37 98.2 F 61 16 128/70 96 Room Air Laboratory Results review cbc review chemistry PG Care Time/CCT Total # of Minutes Spent Total Time Spent with Patient: Total time spent is greater than 50% in coordination of care (as documented) at patient's floor/unit and/or counseling patient: Coding Level of Care Code 09002 SUB INP/OBS CARE 2/35MIN Diagnoses Shock R57.9 Anemia D64.9 Anemia type: unspecified type Atrial fibrillation, unspecified type I48.91 Atrial fibrillation type: unspecified Controlled type 2 diabetes mellitus without complication, with long-term current use of insulin E11.9; Z79.4 Diabetes mellitus retirement insulin use: with retirement use Diabetes mellitus complication status: without complication (2) Anemia Anemia type: unspecified type Qualified Code(s): D64.9 - Anemia, unspecified (3) Atrial fibrillation Atrial fibrillation type: unspecified Qualified Code(s): I48.91 - Unspecified atrial fibrillation (4) Diabetes type 2, controlled Diabetes mellitus termite treater helper insulin use: with retirement use Diabetes mellitus complication status: without complication Qualified Code(s): E11.9 - Type 2 diabetes mellitus without complications; Z79.4 - intermediate (current) use of insulin
[2024-02-02] MEDS: FLUCONAZOLE 100 MG TAB PO SCH (18:11)
[2024-02-03 07:57] VITALS: PULSE 60
[2024-02-03] MEDS: DICLOFENAC SOD 1% GEL 100 GM TUBE EXT PRN (12:25)
--- NOTE | 2024-02-03 15:00 | Hospitalist Progress Note ---
Date of Service February 03, 2024 Assessment & Plan (1) Shock: Plan: 73yo female with history of breast cancer metastatic to liver, on chemotherapy - follows with Dr. De Luna. elevated procalcitonin at 21.5 as well as elevated lactate at 10.2. metabolic encephalopathy resolved Suspect septic shock now resolved blood cultures with MSSA x 1, ESBL Klebsiella(completed ertapenem 5 days ) urine shows reza glabrata, pt with persistent symptoms, started flucona zole complete one week LD 02/04 with persistent pain will remove fuentes 01/30, no help with pyridium or AZO, ? if estrogen cream will help TTE and JOSE no vegetation, moderate , but ID feels with amount of hardware and pacemaker, recommending Cefazolin LD via Picc 02/23 for staph bacteremia infusaport removed (2) Anemia: Plan: unclear if anemia secondary to chemotherapy, chronic inflammation, or recent acute blood loss has h/o chronic iliopsoas bleed convert to po protonix hgb augmented with transfusion , remains stable but low, no sign of blood loss ? anemia of chronic inflammation (3) Atrial fibrillation: Plan: Continue apixaban 5 mg p.o. twice daily for anticoagulation troponin ranged from 56 to 61, suspect demand ischemia in face of sepsis, not suspecting ACS (4) Diabetes type 2, controlled: Plan: history of DM, Last [id number]=9.3 on 12/27/23 controlled -Continue Lantus per glycemic pharmacy protocol requiring small amounts only -ISS - goal blood sugar 110 - 180 Plan #Left wrist and left hand pain and edema Suspect osteoarthritis Check x-rays of left wrist and left hand Toradol 50 mg IV x 1 dose now Continue oxycodone 10 mg p.o. every 4 hours as needed for severe pain Add Tylenol 1000 mg p.o. 3 times daily large area of scalding on left inner thigh is healing still requires wound care Admission and Anticipated Discharge Date Admission Date: January 12, 2024 Subjective Patient seen and examined at bedside Patient has a bed available today at [facility] but does not want to go today as she is complaining of left wrist and left hand pain. Patient states she is unable to move her fingers and pain is excruciating, 9 out of 10. She denies any fever, chills, nausea, vomiting or abdominal pain. Appetite is down but does not want any protein shakes or supplements Review of Systems Review of Systems: As per HPI Physical Exam Physical Exam: General: No acute respiratory distress, speaking in full sentences Psych: Awake and alert HEENT: Anicteric sclera, moist oral mucosa CVS: Regular rate and rhythm Lungs: Bilateral air entry, no wheezing noted Abdomen: Soft, nontender, no rebound, no guarding Ext: Left wrist and left hand tender to palpation, edema noted at left wrist and tenderness specifically noted at left finger PIP joints and left wrist joint Neuro: No focal motor deficits noted Results & Data Results & Data Vital Signs (Past 12 Hours) Vital Signs Temp Pulse Resp BP Pulse Ox O2 Del Method 02/03/24 14:16 36.7 C 60 16 130/65 96 Room Air 02/03/24 07:56 36.7 C 60 16 136/80 95 Room Air Laboratory Results Laboratory Results - last 24 hr 01/26/24 02/03/24 02/03/24 Unknown 07:56 11:29 Sodium Potassium Chloride Carbon Dioxide Anion Gap BUN Creatinine Est Cr Clr Drug Dosing Est GFR ( Amer) Est GFR (Non-Af Amer) BUN/Creatinine Ratio Glucose POC Glucose 108 H 171 H Uric Acid Calcium Magnesium Total Bilirubin AST ALT Alkaline Phosphatase C-Reactive Protein Total Protein Albumin Globulin Albumin/Globulin Ratio Misc Micro Test See Scanned Report 02/03/24 02/03/24 02/03/24 15:35 16:15 20:34 Sodium 133 L Potassium 4.6 Chloride 101 Carbon Dioxide 27 Anion Gap 5 BUN 13 Creatinine 0.59 L Est Cr Clr Drug Dosing 76.1 Est GFR ( Amer) 103.2 Est GFR (Non-Af Amer) 89.0 BUN/Creatinine Ratio 22.0 H Glucose 109 H POC Glucose 112 H 146 H Uric Acid 3.9 Calcium 7.7 L Magnesium 1.6 L Total Bilirubin 0.3 AST 9 L ALT < 3 L Alkaline Phosphatase 72 C-Reactive Protein 11.55 H Total Protein 4.7 L Albumin 2.5 L Globulin 2.2 L Albumin/Globulin Ratio 1.1 Misc Micro Test PG Care Time/CCT Total # of Minutes Spent Total Time Spent with Patient: Total time spent is greater than 50% in coordination of care (as documented) at patient's floor/unit and/or counseling patient: Coding Level of Care Code 15363 SUB INP/OBS CARE 2/35MIN Diagnoses Shock R57.9 Anemia D64.9 Anemia type: unspecified type Atrial fibrillation, unspecified type I48.91 Atrial fibrillation type: unspecified Controlled type 2 diabetes mellitus without complication, with long-term current use of insulin E11.9; 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.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
--- NOTE | 2024-02-03 15:46 | XRay Report ---
XR hand LT min 3V routine CLINICAL HISTORY: Left hand pain and swelling. COMPARISON: Left wrist radiographs October 25, 2020. FINDINGS: There are no acute fractures within the left hand. Severe joint space narrowing with exten sive osteophytosis of the left second through fifth DIP joints is noted. There is moderate joint spac e narrowing with osteophytosis of the left first carpometacarpal joint as well as the triscaphe joint . There is moderate radiocarpal joint space narrowing with osteophytosis. There is chondrocalcinosis within the TFCC. IMPRESSION: 1. No acute fractures within the left hand. 2. 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 The appearance raises the p ossibility of erosive osteoarthritis. 3. Moderate osteophytosis within multiple wrist articulations. ACT 112: Negative or not required by law. Electronically signed by: Eladio Keane M.D. 02/03/2024 3:45 PM
[2024-02-03] MEDS: KETOROLAC TROMETHAMINE 15 MG/ML VIAL IV ONE (15:52)
--- NOTE | 2024-02-03 16:02 | XRay Report ---
XR wrist LT min 3V routine HISTORY: 74 years-old Female pain and swelling acute pain and swelling of the left hand and wrist COMPARISON: Left hand radiographs of same day TECHNIQUE: 3 views of the left wrist FINDINGS: Chondrocalcinosis of the TFCC. Multifocal osteoarthritis, severe within the triscaphe and first carpo metacarpal joints. No acute fracture, dislocation or osseous erosion. Arterial calcifications. Soft t issue swelling. IMPRESSION: Osteoarthritis without acute fracture or dislocation. ACT 112: Negative or not required by law. The above report was generated using voice recognition software. It may contain grammatical, syntax o r spelling errors. Electronically signed by: Jeremy Batres M.D. 02/03/2024 4:01 PM
[2024-02-03 16:26] LABS: Anion Gap 5 (3-11); Blood Urea Nitrogen 13 mg/dl (6-23); C Reactive Protein 11.55 mg/dl (0-0.5); Calcium 7.7 mg/dl (8.6-10.3); Carbon Dioxide 27 mmol/L (21-32); Chloride 101 mmol/L (98-107); Creatinine Clr Calc Pharmacy 76.1 ml/min; Est GFR (African American) 103.2 ml/min; Glucose 109 mg/dl (70-99(Fasting)); Potassium 4.6 mmol/L (3.5-5.1); Sodium 133 mmol/L (136-145)
[2024-02-03 16:29] LABS: Alanine Aminotransferase < 3 U/L (7-52); Albumin Globulin Ratio 1.1 (0.9-2); Albumin Level 2.5 gm/dl (3.4-5.0); Alkaline Phosphatase 72 U/L (34-104); Aspartate Aminotransferase 9 U/L (13-39); Bilirubin,Total 0.3 mg/dl (0.2-1.0); Globulin 2.2 gm/dl (2.5-4.0); Magnesium 1.6 mg/dl (1.7-2.4); Total Protein 4.7 gm/dl (6.0-8.3); Uric Acid 3.9 mg/dl (2.6-7.2)
[2024-02-03] MEDS: SENNA 8.6 MG TAB PO SCH (22:57)
[2024-02-03] MEDS: ACETAMINOPHEN 500 MG TAB PO STA (22:57)
[2024-02-03] MEDS: MAGNESIUM OXIDE 400 MG TAB PO SCH (22:58)
[2024-02-03] MEDS: MAGNESIUM SULFATE / D5W 1 GM/100 ML BAG IV ONE (22:59)
[2024-02-04 08:18] VITALS: RESP 16; TEMP 98.6
[2024-02-04 08:53] VITALS: BP 128/65; O2SAT 94
[2024-02-04] MEDS: POLYETHYLENE (MIRALAX) 17 GM PACK PO SCH (09:26)
[2024-02-04] MEDS: ACETAMINOPHEN 500 MG TAB PO SCH (09:26)
--- NOTE | 2024-02-04 09:42 | Hospitalist Progress Note ---
Date of Service February 04, 2024 Assessment & Plan Admission and Anticipated Discharge Date Admission Date: January 12, 2024 Results & Data Results & Data Vital Signs (Past 12 Hours) Vital Signs Temp Pulse Resp BP Pulse Ox O2 Del Method 02/04/24 08:52 60 128/65 94 Room Air 02/04/24 08:17 37.0 C 60 16 109/50 L 97 Room Air PG Care Time/CCT Total # of Minutes Spent Total Time Spent with Patient: Total time spent is greater than 50% in coordination of care (as documented) at patient's floor/unit and/or counseling patient: Coding
[2024-02-04 10:00] LABS: BUN Creatinine Ratio 30.8 (10-20); Calcium 7.8 mg/dl (8.6-10.3); Creatinine Clr Calc Pharmacy 86.4 ml/min; Est GFR (African American) 107.6 ml/min; Est GFR (Non-African American) 92.8 ml/min; Magnesium 1.9 mg/dl (1.7-2.4); Potassium 4.7 mmol/L (3.5-5.1)
--- NOTE | 2024-02-04 11:44 | Discharge Summary ---
Discharge Summary Date of Service February 04, 2024 Principal Dx & Hospital Course #1 = Principal Diagnosis (1) Shock: 73yo female with history of breast cancer metastatic to liver, on chemotherapy - follows with Dr. De Luna. elevated procalcitonin at 21.5 as well as elevated lactate at 10.2. metabolic encephalopathy resolved Suspect septic shock now resolved blood cultures with MSSA x 1, ESBL Klebsiella(completed ertapenem 5 days ) urine shows reza glabrata, pt with persistent symptoms, started fluconazole complete one week LD 02/04 with persistent pain will remove fuentes 01/30, no help with pyridium or AZO, ? if estrogen cream will help TTE and JOSE no vegetation, moderate , but ID feels with amount of hardware and pacemaker, recommending Cefazolin LD via Picc 02/23 for staph bacteremia infusaport removed (2) Anemia: unclear if anemia secondary to chemotherapy, chronic inflammation, or recent acute blood loss has h/o chronic iliopsoas bleed convert to po protonix hgb augmented with transfusion , remains stable but low, no sign of blood loss ? anemia of chronic inflammation (3) Atrial fibrillation: Continue apixaban 5 mg p.o. twice daily for anticoagulation troponin ranged from 56 to 61, suspect demand ischemia in face of sepsis, not suspecting ACS (4) Diabetes type 2, controlled: history of DM, Last UhbV2N=8.3 on 12/27/23 controlled -Continue Lantus per glycemic pharmacy protocol requiring small amounts only -ISS - goal blood sugar 110 - 180 Plan #Left wrist and left hand osteoarthritis Suspect osteoarthritis Check x-rays of left wrist and left hand confirmed osteoarthritis Continue oxycodone 10 mg p.o. every 4 hours as needed for severe pain Add Tylenol 1000 mg p.o. 3 times daily Patient seen and examined today and she is stable for discharge to short-term rehab Admission HPI Per Admitting Provider Faith Solorzano is a 73yo female with history of metastatic breast carcinoma on chemotherapy presenting with sepsis. Patient does not provide details due to confusion. Daughter is at bedside and provides the history. Patient was admitted to [facility] from 12/26/23 - 01/01/24 after presenting with neck pain, debility and frequent falls. Patient was managed with pain medications. She was also treated with Ceftriaxone for a UTI. She was ultimately discharged to [facility] for ongoing rehab. Leah reports that she was sent home from [facility] on 01/09/24. On 01/10/24 PM patient was preparing tea in the microwave and she spilled hot water on her skin resulting in significant bunch on her left hand, LUE and LLE. Patient's controls her Oxycodone. Daughter reports that patient becomes confused at times with her pain medications. Over the last two days patient has become more confused. She has not been eating or drinking much. Daughter reports some loose stools as well. No reported fever or chills. Patient denies chest pain, abdominal pain, nausea, vomiting She does have some UTI symptoms with some blood in the urine. Upon arrival to the ER patient hypotensive with PB 66/40, HR, RR and oxygenation WNL Patient received 2L crystalloid and 500mL of Albumin Blood ordered - patient with antibodies present - blood is coming from [place] and is delayed Admitted to the MICU for presumed sepsis - hypotension, anemia, elevated lactate ER Course: NSS x 2000mL Zosyn 4.5gm Vancomycin 1750mg Calcium Gluconate x 3 gm NaHCO3 x 50mEq Albumin 500mL Discharge Exam General: No acute respiratory distress, speaking in full sentences Psych: Awake and alert HEENT: Anicteric sclera, moist oral mucosa CVS: Regular rate and rhythm Lungs: Bilateral air entry, no wheezing noted Abdomen: Soft, nontender, no rebound, no guarding Ext: Left wrist and left hand tender to palpation with slightly improved edema Neuro: No focal motor deficits noted Discharge Plan Discharge Items Patient Disposition: Transfer Shelter Fac Reason For Visit: CONFUSION, HYPOTENSION Discharge Diagnosis: shock and metabolic encephalopathy, staph bacteremia, esbl Klebsiella uti reza glabrata uti Metastatic Breast Cancer bunch to skin, poa, from hot liquid left hand and wrist severe OA Condition on Discharge: Fair Activity: As commented below Activity Comment: As tolerated with assistance Driving/Machine Use: No driving or using heavy machinery while taking sedating medications Non-emergency contact: Primary Care Provider Call non-emergency contact if: you have any medication questions, your symptoms worsen, your pain is not controlled, you have a fever and your wound has increased redness Follow-up/Referrals: Quinn Lovett MD [Primary Care Provider] - Garrett De Luna MD [Physician] - [facility] [Non-Staff] - Diet: Carb Consistent or DM2 Addtl Attending Provider Instructions: DISCHARGE INSTRUCTIONS TO SNF/PATIENT/FAMILY: 1) Follow-up with your primary care provider within 1 week regarding: Posthos pital discharge, medication review, medication refills and follow-up on all your medical problems including osteoarthritis 2) Please take all your discharge medications, discharge information and dis charge instructions to all your doctors appointments. 3) continue cefazolin 2 g IV every 8 hours for MSSA bacteremia until February 24, 2024 4) Weekly labs while patient is on IV antibiotics every Friday starting 02/09/24: CBC with Diff, CMP, ESR, CRP. Repeat blood cultures 1 week after finishing IV antibiotics on 03/02/24 5) remove PICC line after last dose of IV antibiotics 6) follow-up with local infectious diseases physician in your area to follow-up on MSSA bacteremia 7) follow-up with your oncologist Dr. De Luna upon discharge from intermediate facility 8) last day of oral fluconazole is on 02/05/2024 pt still has significant wounds to right inner thigh, daily cleaning and dressing with xeroform or Vaseline gauze Pending Studies at Discharge: No Stand-Alone Forms: My [facility] Skilled Items Patient informed of condition?: Yes DNR: No Discharge Level of Care: Acute rehab Communicable Disease: No Discharge Prognosis: Stable Lines: PICC Urinary Catheter: No Medications and DC Order Prescriptions: New insulin aspart U-100 [Novolog U-100 Insulin aspart] 100 unit/mL Solution 1 sliding scale dose SC ACHS Qty: 10 0RF Rx Instructions: --Goal BSG Range: Low 110mg/dL, High 140mg/dL --Correction Factor: 20 mg/dL/unit --Carbohydrate ratio = 20 g/unit cefazolin 2 gram recon soln 1 g IV Q8H Qty: 25 0RF Rx Instructions: last dose 02/24/24 fluconazole [Diflucan] 100 mg Tablet 200 mg PO Q24H Qty: 4 0RF sennosides [Senokot] 8.6 mg Tablet 17.2 mg PO HS Qty: 7 0RF Rx Instructions: HOLD FOR LOOSE STOOLS acetaminophen [Tylenol Extra Strength] 500 mg Tablet 1,000 mg PO TID PRN (Reason: Pain) Qty: 7 0RF polyethylene glycol 3350 [Miralax] 17 gram Powder In Packet 17 g PO DAILY Qty: 14 0RF Rx Instructions: HOLD FOR LOOSE STOOLS Continued (DME) OneTouch Ultra Test Strip See Rx Instructions .Route Qty: 100 5RF Rx Instructions: Test BS 3x daily cyanocobalamin (vitamin B-12) 1,000 mcg/mL kit 1,000 mcg IM MONTHLY Qty: 1 3RF (DME) lancets [OneTouch Delica Plus Lancet] 33 gauge misc See Rx Instructions .Route Qty: 300 3RF Rx Instructions: use to check bsg 3 times daily albuterol sulfate 90 mcg/actuation HFA aerosol inhaler 2 puff INHALATION Q4 PRN (Reason: Shortness Of Breath Or Wheezing) Qty: 8.5 5RF (DME) pen needle, diabetic [Easy Comfort Pen Ashby] 32 gauge x 5/32" needle See Rx Instructions .Route Qty: 100 3RF Rx Instructions: As directed levothyroxine 25 mcg tablet 37.5 mcg PO QAM Qty: 135 3RF Eliquis 5 mg tablet 5 mg PO BID Qty: 60 5RF pantoprazole [Protonix] 40 mg tablet,delayed release (DR/EC) 40 mg PO QAM Qty: 90 3RF atorvastatin 40 mg tablet 40 mg PO HS Qty: 90 3RF nystatin 100,000 unit/gram powder 1 applic topical DAILY Qty: 30 2RF duloxetine [Cymbalta] 60 mg capsule,delayed release(DR/EC) 60 mg PO QAM phenazopyridine 95 mg Tablet 95 mg PO TID PRN (Reason: Urinary Pain) oxycodone 10 mg tablet 10 mg PO UD PRN (Reason: Pain) Rx Instructions: Every 4-6 hours as needed doxazosin 2 mg Tablet 2 mg PO DAILY 30 Days Qty: 30 0RF Changed insulin glargine [Lantus U-100 Insulin] 100 unit/mL solution 7 unit subcut QPM Qty: 0 0RF Discontinued meclizine 25 mg tablet 25 mg PO DAILY PRN (Reason: DIZZINESS/VERTIGO) diltiazem HCl [Tiazac] 360 mg capsule,extended release 24 hr 360 mg PO QAM Qty: 90 3RF furosemide 20 mg tablet 20 mg PO DAILY Qty: 30 5RF potassium chloride 20 mEq tablet extended release 20 meq PO QAM losartan 25 mg tablet 25 mg PO QAM Discharge Orders: Discharge Order (Routine); Ordered 02/04/24 Ordered By: Saran Peralta Admission Data Admit Date/Time: 01/12/24 21:47 Attending Provider: Saran Peralta Admit Provider: Yolette Huang Primary Care Provider: Quinn Lovett Other Providers: [email or web address]; [facility]; Yolette Huang; Marcelo Felix; Park Mora; Sierra Pena; Deneen Rodriguez; Tosin Pozo; Estella Boggs; Jesenia Hughes; Garrett De Luna; Brian Kingston; [facility]; [facility] Other Interventions: Discharge Summary Assessment (RN) Last Done: 02/04/24 12:00 Hospital Stay Data Consultations 01/12/24 19:37 ED Decision to Admit Stat 01/12/24 23:33 Consult Commercial Decorator Routine 01/13/24 10:05 Consult Infectious Diseases Routine Consult Oncology Routine 01/16/24 16:21 Consult General Surgery Routine Procedures Performed Operation Date: 01/20/24 13:00 Actual Procedures p Echo Transesophageal - Quinn Edmondson MD s Echo Color Flow - Quinn Edmondson MD s Echo Doppler Complete - Quinn Edmondson MD Diagnostic Imagining Performed 01/12/24 21:48 CT Abdomen and Pelvis [CT abd pelvis wo con] Stat 01/14/24 11:46 US venous doppler UE LT Routine 01/15/24 17:51 CT spine [CT lumbar spine wo/w con] Routine CT spine [CT thoracic spine wo/w con] Routine Chest X-Ray 01/12/24 17:54 XR chest 1V portable CLINICAL HISTORY: Sepsis COMPARISON STUDY: Chest CT January 05, 2024. FINDINGS: Dual lead left subclavian pacer and left shoulder arthroplasty are in place. Cardiomegaly is unchanged. There is no evidence for pulmonary edema. There is no consolidation to suggest pneumonia. No pneumothorax or pleural effusion is present. IMPRESSION: No acute cardiopulmonary findings. ACT 112: Negative or not required by law. Electronically signed by: Eladio Keane M.D. 01/12/2024 6:26 PM Abdomen/Pelvis CT 01/12/24 21:48 Exam(s): CT ABDOMEN + PELVIS Without Contrast EXAM: CT Abdomen and Pelvis Without Intravenous Contrast CLINICAL HISTORY: Sepsis with elevated lactate. TECHNIQUE: Axial computed tomography images of the abdomen and pelvis without intravenous contrast. CTDI is 24 mGy and DLP is 1150 mGy-cm. Automated exposure control was utilized for the study. A dose lowering technique was utilized adhering to the principles of ALARA. COMPARISON: CT abdomen and pelvis 12/26/2023 FINDINGS: Lung bases: Interseptal thickening is concerning for pulmonary edema. Pleural space: Trace bilateral pleural effusions. ABDOMEN: Liver: Unremarkable. Gallbladder and bile ducts: Cholelithiasis. No ductal dilation. Pancreas: Unremarkable. No ductal dilation. Spleen: Unremarkable. No splenomegaly. Adrenals: Mild hypertrophy of both adrenal glands. No mass. Kidneys and ureters: Nonobstructing bilateral renal calculi measure up to 6 mm. Stomach and bowel: Question thickening of the rectal wall. The small bowel is mildly distended with fluid without obstruction. PELVIS: Appendix: No findings to suggest acute appendicitis. Bladder: Unremarkable. No stones. Reproductive: Unremarkable as visualized. ABDOMEN and PELVIS: Intraperitoneal space: Unremarkable. No free air. No significant fluid collection. Bones/joints: No acute fracture. No dislocation. Intervertebral disc spacers at L3-L4 L5-S1 posterior screws and rods. Soft tissues: Marked nonspecific body wall edema. Bilateral breast prosthesis are noted. Vasculature: Unremarkable. No abdominal aortic aneurysm. Lymph nodes: Unremarkable. No enlarged lymph nodes. IMPRESSION: 1. Question thickening of the rectal wall. This could be infectious, inflammatory or malignant. 2. The small bowel is mildly distended with fluid without obstruction. This could be related to ileus, infectious or inflammatory. 3. Marked nonspecific body wall edema. 4. Nonobstructing bilateral renal calculi measure up to 6 mm. 5. Cholelithiasis. 6. Mild hypertrophy of both adrenal glands. Interseptal thickening is concerning for pulmonary edema. 7. Trace bilateral pleural effusions. Interseptal thickening is concerning for pulmonary edema. Electronically signed by: Loida Nunez MD 01/13/24 00:49 AM Extremity Venous Study 01/14/24 11:46 ULTRASOUND LEFT UPPER EXTREMITY VENOUS CLINICAL HISTORY: Left arm swelling. COMPARISON STUDY: Left upper extremity venous ultrasound dated 10/28/2023. TECHNIQUE: Real-time, grayscale, and color Doppler sonography of the deep veins of the left upper extremity is performed. The patient could not tolerated compression due to discomfort. FINDINGS: There is no sonographic evidence of deep venous thrombosis identified in the left upper extremity. The left internal jugular, axillary, and brachial veins are patent. Normal venous waveforms and augmentation are seen within the left subclavian vein. The cephalic and basilic veins are clear. The visualized radial and ulnar veins are patent. Soft tissue edema is noted in the forearm. IMPRESSION: There is no sonographic evidence of deep venous thrombosis ident ified in the left upper extremity. ACT 112: Negative or not required by law. Electronically signed by: Noe Carrillo M.D. 01/14/2024 2:[address] 01/15/24 17:51 Exam(s): CT L SPINE IV Amt: 91 ml optiray 320 EXAM: CT Lumbar Spine With Intravenous Contrast CLINICAL HISTORY: Reason for exam: eval for infection as staph bacteremic and pain. TECHNIQUE: Axial computed tomography images of the lumbar spine with intravenous contrast. CTDI is 47.1 mGy and DLP is 2109.1 mGy-cm. Automated exposure control was utilized for the study. A dose lowering technique was utilized adhering to the principles of ALARA. CONTRAST: Patient received 91 ml optiray 320 of IV contrast COMPARISON: CT abdomen and pelvis from December 26, 2023 FINDINGS: Vertebrae: The vertebral body heights are normally maintained. No acute compression fracture or burst fracture is seen. Extensive instrumentation throughout the lumbar spine consisting of pedicle screws attached to posterior lateral rods with laminectomy multilevel fusion extending from L2-S1. There is an old healed S1 fracture. The hardware appears intact. No acute fracture or subluxation is seen. Discs/spinal canal/neural foramina: See findings above and below. No significant spinal stenosis is seen. Soft tissues: Axial soft tissue images show no evidence of significant spinal stenosis. No abnormal fluid collection is seen within the spinal canal or paraspinous soft tissues. Kidneys and ureters: Nonobstructive 4 mm calyceal calculus in the lower pole the both kidneys. No hydronephrosis or ureterolithiasis. IMPRESSION: Extensive instrumentation throughout the lumbar spine consisting of pedicle screws attached to posterior lateral rods with laminectomy multilevel fusion extending from L2-S1. There is an old healed S1 fracture. The hardware appears intact. No acute fracture or subluxation is seen. No abnormal fluid collection is seen associated with the spine. Electronically signed by: Narayan Huang MD 01/16/24 02:[address] 01/15/24 17:51 Exam(s): CT T SPINE IV Amt: 91 ml optiray 320 EXAM: CT Thoracic Spine With Intravenous Contrast CLINICAL HISTORY: Reason for exam: eval for infection as staph bacteremic and pain. TECHNIQUE: Axial computed tomography images of the thoracic spine with intravenous contrast. CTDI is 48.94 mGy and DLP is 2191.71 mGy-cm. Automated exposure control was utilized for the study. A dose lowering technique was utilized adhering to the principles of ALARA. CONTRAST: Patient received 91 ml optiray 320 of IV contrast COMPARISON: No relevant prior studies available. FINDINGS: Vertebrae: Severe multilevel osteophytosis throughout the thoracic spine which is partially ankylosed. The facets and spinous processes are intact and normally aligned. No acute fracture or traumatic subluxation is seen. The alignment is normal. Discs/spinal canal/neural foramina: The spinal canal contents appear grossly unremarkable. No spinal stenosis or abnormal fluid collection is identified. Soft tissues: Unremarkable. Pleural space: Small bilateral pleural effusions layering posteriorly measuring 2 cm on the left and 3 cm on the right. There is partial visualization of bilateral lower lobe partial consolidation. IMPRESSION: 1. Severe multilevel osteophytosis throughout the thoracic spine which is partially ankylosed. No acute fracture or traumatic subluxation is seen. 2. Small bilateral pleural effusions layering posteriorly measuring 2 cm on the left and 3 cm on the right. There is partial visualization of bilateral lower lobe partial consolidation. Electronically signed by: Narayan Huang MD 01/16/24 02:29 AM Chest X-Ray 01/22/24 11:06 XR chest 1V portable CLINICAL HISTORY: right PICC tip placement TECHNIQUE: Single frontal radiograph of the chest was obtained. Comparison: Comparison is made to chest radiograph 01/12/2024 FINDINGS: A right PICC terminates at the left atrium. An implanted pacemaker is seen. Calcified aortic knob is seen. Left shoulder arthroplasty is seen. The lungs are clear. No evidence of pleural effusion or pneumothorax. IMPRESSION: Right PICC terminates in the left atrium and can be withdrawn approximately 3 cm for improved positioning. ACT 112: Negative or not required by law. Electronically signed by: Emre Riojas M.D. 01/22/2024 11:58 AM Chest X-Ray 01/22/24 13:25 XR chest 1V portable HISTORY: 73 years-old Female right PICC tip placement after adjustment status post placement of a right-sided PICC COMPARISON: Chest radiograph of same day at 11:17 AM TECHNIQUE: AP view of the chest FINDINGS: Dual-lead left subclavian pacer. Left shoulder arthroplasty. Cardiomegaly. Pulmonary vascular congestion. Trace right and small left pleural effusions with mild left basilar predominant opacities. A right-sided PICC is again noted with distal tip in the expected location of the superior cavoatrial junction. IMPRESSION: 1. Distal tip of right-sided PICC projects over the superior cavoatrial junction. 2. Cardiomegaly with pulmonary vascular congestion. 3. Trace right and small left pleural effusions with left greater than right bibasilar densities. ACT 112: Negative or not required by law. The above report was generated using voice recognition software. It may contain grammatical, syntax or spelling errors. Electronically signed by: Jeremy Batres M.D. 01/22/2024 2:42 PM Hand X-Ray 02/03/24 15:00 XR hand LT min 3V routine CLINICAL HISTORY: Left hand pain and swelling. COMPARISON: Left wrist radiographs October 25, 2020. FINDINGS: There are no acute fractures within the left hand. Severe joint space narrowing with extensive osteophytosis of the left second through fifth DIP joints is noted. There is moderate joint space narrowing with osteophytosis of the left first carpometacarpal joint as well as the triscaphe joint. There is moderate radiocarpal joint space narrowing with osteophytosis. There is chondrocalcinosis within the TFCC. IMPRESSION: 1. No acute fractures within the left hand. 2. 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 The appearance raises the possibility of erosive osteoarthritis. 3. Moderate osteophytosis within multiple wrist articulations. ACT 112: Negative or not required by law. Electronically signed by: Eladio Keane M.D. 02/03/2024 3:45 PM Wrist X-Ray 02/03/24 15:00 XR wrist LT min 3V routine HISTORY: 74 years-old Female pain and swelling acute pain and swelling of the left hand and wrist COMPARISON: Left hand radiographs of same day TECHNIQUE: 3 views of the left wrist FINDINGS: Chondrocalcinosis of the TFCC. Multifocal osteoarthritis, severe within the triscaphe and first carpometacarpal joints. No acute fracture, dislocation or osseous erosion. Arterial calcifications. Soft tissue swelling. IMPRESSION: Osteoarthritis without acute fracture or dislocation. ACT 112: Negative or not required by law. The above report was generated using voice recognition software. It may contain grammatical, syntax or spelling errors. Electronically signed by: Jeremy Batres M.D. 02/03/2024 4:01 PM Laboratory Results - last 48 hr 01/26/24 02/02/24 02/02/24 Unknown 17:05 20:05 Sodium Potassium Chloride Carbon Dioxide Anion Gap BUN Creatinine Est Cr Clr Drug Dosing Est GFR ( Amer) Est GFR (Non-Af Amer) BUN/Creatinine Ratio Glucose POC Glucose 102 H 145 H Uric Acid Calcium Magnesium Total Bilirubin AST ALT Alkaline Phosphatase C-Reactive Protein Total Protein Albumin Globulin Albumin/Globulin Ratio Misc Micro Test See Scanned Report 02/03/24 02/03/24 02/03/24 07:56 11:29 15:35 Sodium 133 L Potassium 4.6 Chloride 101 Carbon Dioxide 27 Anion Gap 5 BUN 13 Creatinine 0.59 L Est Cr Clr Drug Dosing 76.1 Est GFR ( Amer) 103.2 Est GFR (Non-Af Amer) 89.0 BUN/Creatinine Ratio 22.0 H Glucose 109 H POC Glucose 108 H 171 H Uric Acid 3.9 Calcium 7.7 L Magnesium 1.6 L Total Bilirubin 0.3 AST 9 L ALT < 3 L Alkaline Phosphatase 72 C-Reactive Protein 11.55 H Total Protein 4.7 L Albumin 2.5 L Globulin 2.2 L Albumin/Globulin Ratio 1.1 Misc Micro Test 02/03/24 02/03/24 02/04/24 16:15 20:34 08:14 Sodium Potassium Chloride Carbon Dioxide Anion Gap BUN Creatinine Est Cr Clr Drug Dosing Est GFR ( Amer) Est GFR (Non-Af Amer) BUN/Creatinine Ratio Glucose POC Glucose 112 H 146 H 103 H Uric Acid Calcium Magnesium Total Bilirubin AST ALT Alkaline Phosphatase C-Reactive Protein Total Protein Albumin Globulin Albumin/Globulin Ratio Misc Micro Test 02/04/24 02/04/24 08:53 11:25 Sodium 134 L Potassium 4.7 Chloride 102 Carbon Dioxide 26 Anion Gap 6 BUN 16 Creatinine 0.52 L Est Cr Clr Drug Dosing 86.4 Est GFR ( Amer) 107.6 Est GFR (Non-Af Amer) 92.8 BUN/Creatinine Ratio 30.8 H Glucose 86 POC Glucose 126 H Uric Acid Calcium 7.8 L Magnesium 1.9 Total Bilirubin AST ALT Alkaline Phosphatase C-Reactive Protein Total Protein Albumin Globulin Albumin/Globulin Ratio Misc Micro Test Pending Results Patient Have Any Pending Studies at Discharge: No Discharge Instructions Given to Patient (Per Discharging Provider) DISCHARGE INSTRUCTIONS TO SNF/PATIENT/FAMILY: 1) Follow-up with your primary care provider within 1 week regarding: Posthospital discharge, medication review, medication refills and follow-up on all your medical problems including osteoarthritis 2) Please take all your discharge medications, discharge information and discharge instructions to all your doctors appointments. 3) continue cefazolin 2 g IV every 8 hours for MSSA bacteremia until February 24, 2024 4) Weekly labs while patient is on IV antibiotics every Friday starting 02/09/24: CBC with Diff, CMP, ESR, CRP. Repeat blood cultures 1 week after finishing IV antibiotics on 03/02/24 5) remove PICC line after last dose of IV antibiotics 6) follow-up with local infectious diseases physician in your area to follow-up on MSSA bacteremia 7) follow-up with your oncologist Dr. 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
== END 2024-02-04 12:45 | DRG 871 ==
LOC: ED 17:29 → 1E 21:47 → SUATTDRO 21:47 → 1E 22:46 → 2S 01-14 13:28 → 3N 01-21 21:26

== ENCOUNTER 2024-02-24 14:40 | Inpatient (IN) ==
--- NOTE | 2024-02-24 16:18 | CT Scan Report ---
CT head/brain wo con CLINICAL HISTORY: AMS, ?fall Technique: Contiguous axial CT images of the head were acquired from the base of the skull to the sharon juana without intravenous contrast administration. Images were viewed in brain, subdural and bone windo ws. Automated dose lowering techniques and/or adjustment according to patient size were utilized for this exam. Comparison: Comparison is made to CT head 12/26/2023 Findings: The ventricles, basal cisterns, and cerebral sulci are normal. There is no acute intracranial hemorrh age or evidence of acute territorial infarction. Neither mass effect, shift of the midline structures , nor abnormal extra-axial fluid collections are shown. Imaged portions of the paranasal sinuses and mastoid air cells are clear. The orbits appear normal. There are no acute fractures of the calvaria or scalp swelling. Impression: No acute intracranial hemorrhage, no evidence of acute territorial infarction or other acute intracra nial disease process. ACT 112: Negative or not required by law. Electronically signed by: Emre Riojas M.D. 02/24/2024 4:17 PM
--- NOTE | 2024-02-24 16:23 | Electrocardiogram Report ---
Test Reason : Blood Pressure : */* mmHG Vent. Rate : 60 BPM Atrial Rate : 56 BPM P-R Int : * ms QRS Dur : 154 ms QT Int : 482 ms P-R-T Axes : * 268 88 degrees QTcB Int : 482 ms Ventricular-paced rhythm Abnormal ECG When compared with ECG of 17-Jan-2024 04:49, No significant change was found Confirmed by Damaso Mcfarlane ([id number]) on 02/24/2024 4:22:57 PM Referred By: REFERRED SELF Confirmed By: Damaso Mcfarlane
[2024-02-24 16:26] LABS: Anion Gap 7 (3-11); BUN Creatinine Ratio 42.4 (10-20); Blood Urea Nitrogen 14 mg/dl (6-23); Calcium 7.9 mg/dl (8.6-10.3); Carbon Dioxide 26 mmol/L (21-32); Chloride 104 mmol/L (98-107); Glucose 98 mg/dl (70-99(Fasting)); Potassium 3.8 mmol/L (3.5-5.1); Sodium 137 mmol/L (136-145)
[2024-02-24 16:32] LABS: Acanthocytes 1+; Basophils # (auto) 0.03 K/uL (0.00-0.20); Basophils % (auto) 0.4 %; Eosinophils # (auto) 0.16 K/uL (0.00-0.50); Eosinophils % (auto) 2.1 %; Hematocrit (blood only) 27.2 % (37.0-47.0); Hemoglobin 8.2 g/dl (12.0-16.0); Immature Granulocytes # (auto) 0.04 K/uL (0.01-0.20); Immature Granulocytes % (auto) 0.5 %; Lymphocytes # (auto) 0.55 K/uL (1.20-3.40); Lymphocytes % (auto) 7.1 %; Mean Corpuscular Hemoglobin 27.1 pg (25.0-34.0); Mean Corpuscular Hgb Conc 30.1 g/dL (32.0-36.0); Mean Corpuscular Volume 89.8 fL (80.0-100.0); Monocytes # (auto) 0.65 K/uL (0.11-0.59); Monocytes % (auto) 8.4 %; Neutrophils # (auto) 6.28 K/uL (1.40-6.50); Neutrophils % (auto) 81.5 %; Ovalocytes 1+; Platelet Count 91 K/uL (130-400); Polychromasia 1+; RDW Coefficient of Variation 17.6 % (11.5-14.5); RDW Standard Deviation 58.5 fL (36.4-46.3); Red Blood Count 3.03 M/uL (4.20-5.40); Tear Drop Cells 1+; Troponin I High Sensitivity 9.5 pg/ml (0-14); White Blood Count 7.71 K/ul (4.8-10.8)
[2024-02-24 16:41] LABS: Thyroid Stimulating Hormone 5.558 uIu/ml (0.300-4.500)
--- NOTE | 2024-02-24 16:46 | XRay Report ---
SINGLE VIEW CHEST CLINICAL HISTORY: Generalized weakness FINDINGS: An AP, portable, upright chest radiograph is compared to study dated 01/22/2024. The examinat ion is degraded by portable technique and apical lordotic positioning. A right-sided PICC line is unc hanged in position, as is a 2-lead cardiac pacemaker. The heart is enlarged and noting atheroscleroti c calcification of the thoracic aorta. There is pulmonary vascular congestion with mild interstitial edema. There are small pleural effusions with dependent consolidation. No pneumothorax is seen. The b ashley thorax is grossly intact. A left shoulder arthroplasty is in place. Advanced arthritic changes no alicia in the right shoulder and spine. Lumbar fusion hardware is partially imaged. Cholecystectomy clip s are noted in the right upper quadrant. IMPRESSION: 1. Cardiomegaly and cardiac pacemaker with evidence of congestive failure and pulmonary edema. 2. Small pleural effusions with dependent consolidation. ACT 112: Negative or not required by law. Electronically signed by: Noe Carrillo M.D. 02/24/2024 4:44 PM
[2024-02-24 17:16] LABS: T4 Free Thyroxine 1.15 ng/dl (0.61-1.60)
[2024-02-24 18:23] LABS: Adenovirus PCR Not Detected (NotDetected); Bordetella parapertussis PCR Not Detected (NotDetected); Bordetella pertussis PCR Not Detected (NotDetected); Chlamydia pneumoniae PCR Not Detected (NotDetected); Coronavirus 229E PCR Not Detected (NotDetected); Coronavirus CoV-2 (COVID19)PCR Not Detected (NotDetected); Coronavirus HKU1 PCR Not Detected (NotDetected); Coronavirus NL63 PCR Not Detected (NotDetected); Coronavirus OC43PCR Not Detected (NotDetected); Human Metapneumovirus PCR Not Detected (NotDetected); Influenza A PCR Not Detected (NotDetected); Influenza B PCR Not Detected (NotDetected); Mycoplasma pneumoniae PCR Not Detected (NotDetected); Parainfluenza Virus 1 PCR Not Detected (NotDetected); Parainfluenza Virus 2 PCR Not Detected (NotDetected); Parainfluenza Virus 3 PCR Not Detected (NotDetected); Parainfluenza Virus 4 PCR Not Detected (NotDetected); Respiratory Syncytial VirusPCR Not Detected (NotDetected); Rhinovirus/Enterovirus PCR Not Detected (NotDetected)
[2024-02-24] MEDS: oxyCODONE HCL IR 5 MG TAB (IMMEDIATE RELEASE) PO STA ×2 (18:34)
[2024-02-24] MEDS: QUEtiapine FUMARATE 25 MG TABLET PO STA (19:27)
[2024-02-24 19:32] LABS: Alanine Aminotransferase < 3 U/L (7-52); Albumin Globulin Ratio 1.3 (0.9-2); Albumin Level 2.9 gm/dl (3.4-5.0); Alkaline Phosphatase 93 U/L (34-104); Aspartate Aminotransferase 11 U/L (13-39); Bilirubin,Total 0.5 mg/dl (0.2-1.0); Globulin 2.3 gm/dl (2.5-4.0); Magnesium 1.6 mg/dl (1.7-2.4); Total Protein 5.2 gm/dl (6.0-8.3)
--- NOTE | 2024-02-24 20:53 | History & Physical Report ---
Date of Service February 24, 2024 Assessment & Plan (1) Multifocal pneumonia: (2) Aspiration into airway: (3) Altered mental status: (4) Breast cancer: (5) Hypothyroidism: (6) Diabetes type 2, controlled: (7) Anemia: (8) Anxiety: (9) Aortic valve stenosis: (10) Status post placement of cardiac pacemaker: (11) MSSA bacteremia: Plan Faith is a 74F w/ PMH of metastatic breast cancer (currently receiving chemotherapy), lymphedema w/ lipodystrophy, nephrolithiasis, hypothyroidism, DM2 w/ neuropathy, anemia, memory loss, aortic valve stenosis, AFib on anticoagulation, tachy-darren syndrome, and depression who presents for an acute mental status change and is being admitted for stroke workup. Stroke Evaluation - 12-24 hours of intermittent 'word-salad' and agitation w/o additional FND Required PO Zyprexa in ED, now sleeping deeply - Labs CBC/CMP only remarkable for chronic anemia Troponin negative Biofire negative TSH elevated, though improved from prior, outpt f/u recommended Hypomagnesemia noted, repletion w/ 3 g Mg ordered - Imaging: CT Head w/o con negative CTA Head & Neck ordered MRI contraindicated 2/2 pacemaker - EKG paced, no acute change form prior - Continue inpatient neuro checks - Admit to telemetry Aspiration PNA/Multifocal PNA Large Pleural Effusions Secondary Immunocompromise a/w Chemotherapy - No hx of CHF, prior EF 65-70% 01/13/24 - Active metastatic breast cancer ongoing chemotherapy w/ [facility] (Dr. De Luna) - CXR w/ pulmonary vascular congestion with mild interstitial edema, small pleural effusions with dependent consolidation - Examination w/ dullness at bases and faint crackles in low/middle lobes as well as 1+ pitting lower extremity edema Received Lasix 20 mg IV on admission, continue to follow fluid status clinically - Chest CTA: No pulmonary embolism.Dependent airspace consolidations, concerning for multilobar pneumonia/aspiration. Large bilateral pleural effusions. - Patient NPO pending speech evaluation given aspiration PNA Nursing also noting difficulty on bedside swallow - Started on IV Zosyn 4.5 Q6h for aspiration/multifocal pneumonia - Tylenol PRN for fever, Zosyn PRN for nausea - O2 remains stable on room air Recent MSSA Bacteremia - Ongoing course of Cefazolin 2g IV Q8h - Planned antibiotic completion today - Previous port removed w/ planned replacement Recurrent Urinary Tract Infections - No dysuria, frequency, suprapubic pain noted - Urinalysis largely unremarkable, trace leuks w/o bacteria or nitrites - Will pend culture Chronic Conditions: - AFib on Eliquis - no evidence of bleeding on CT Head, continu Eliquis - Tachy-Darren Syndrome - ongoing pacer - HLD - continue statin - Urinary retention? - ongoing Doxazosin - Depression - continue duloxetine - DM2 - A1c well controlled w/ glargine 7 units HS, BSG checks ordered ACHS - Hypothyroidism - continue levothyroxine - GERD - continue pantoprazole - Anemia - noted 2/2 chemotherapy, stable Code: Full DVT: Eliquis IVF: None, Lasix 20 mg IV Diet: NPO pending dysphagia screen Dispo: Med/tele History of Present Illness Chief Complaint: Stroke Workup Primary Care Provider: Quinn Lovett MD Faith is a 74F w/ PMH of metastatic breast cancer, lymphedema w/ lipodystrophy, nephrolithiasis, hypothyroidism, DM2 w/ neuropathy, anemia, memory loss, aortic valve stenosis, AFib on anticoagulation, tachy-darren syndrome, and depression who presents for an acute mental status change and is being admitted for stroke workup. Interval Hx: Admitted 01/12-02/03 for presumed septic shock, infusaport removed as presumed source of MSSA bacteremia. Patient was to remain on Cefazolin 2g IV Q8h for 6 week course (01/12-02/23) per ID recommendations 01/21/24. ED Course: Oxycodone 5 mg PO, Zyprexa 25 mg PO HPI: Patient was somnolent after receiving Zyprexa in the ED to manage aggression/agitation. Daughter noted word salad speech and increased agitation yesterday afternoon (02/22) into today. Patient has been receiving rehabilitation at [facility] since her admission 01/12-02/03. Daughter states that Faith had been in her usual state of health and mentation until the afternoon of 02/22. Daughter notes that there have been no acute falls or injuries. Patient has not complained of fevers, chills, headaches, vision changes, or bowel/bladder changes.Daughter has not received report of such from [facility]. She has cont inued to take her IV antibiotics for MSSA bacteremia w/o incident, course was scheduled to complete today. Daughter denies any FND. Daughter does make note that patient is anxious about going home as she did not feel that she had progressed at rehab. Daughter independently expressed concern about patient receiving too many narcotic medications at rehab and states that patient 'never required this much before'. Allergies Allergy/AdvReac Type Severity Reaction Status Date / Time metformin AdvReac Intermediate RESTLESSNES Verified 12/26/23 14:11 S Home Medications Medication Instructions Recorded Confirmed Type blood sugar diagnostic (OneTouch #100 ea 10/07/22 02/24/24 Rx Ultra Test strips) cyanocobalamin (vitamin B-12) 1,000 mcg IM MONTHLY #1 ea 10/07/22 02/24/24 Rx 1,000 mcg/mL injection kit OneTouch Delica Plus Lancet 33 #300 ea 01/09/23 02/24/24 Rx gauge (lancets) albuterol sulfate 90 mcg/actuation 2 puff inhalation Q4 PRN Shortness 02/24/23 02/24/24 Rx aerosol inhaler Of Breath Or Wheezing #8.5 grams pen needle, diabetic 32 gauge x #100 ea 06/12/23 02/24/24 Rx 5/32" (Easy Comfort Pen [place]) apixaban 5 mg tablet (Eliquis) 5 mg PO BID #60 tabs 09/16/23 02/24/24 Rx duloxetine 60 mg capsule,delayed 60 mg PO QAM 09/26/23 02/24/24 History release (Cymbalta) pantoprazole 40 mg tablet,delayed 40 mg PO QAM #90 tabs 10/07/23 02/24/24 Rx release (Protonix) atorvastatin 40 mg tablet 40 mg PO HS #90 tabs 10/14/23 02/24/24 Rx oxycodone 10 mg tablet 10 mg PO Q4 PRN Pain 9-10 10/17/23 02/24/24 History phenazopyridine 95 mg tablet 95 mg PO Q8 PRN BLADDER PAIN 10/17/23 02/24/24 History sennosides 8.6 mg tablet (Senokot) 17.2 mg (2 x 8.6 mg) PO HS #7 tabs 02/04/24 02/24/24 Rx acetaminophen 500 mg tablet 1,000 mg PO Q8 PRN Fever Or Pain 02/24/24 02/24/24 History (Tylenol Extra Strength) cefazolin 2 gram solution for 2 g IV Q8H 02/24/24 02/24/24 History injection dextran 70-hypromellose eye drops 2 drp OPB Q6 PRN Dry Eye(S) 02/24/24 02/24/24 History in a dropperette (Artificial Tears (PF) drops in a dropperette) doxazosin 2 mg tablet 2 mg PO QAM 02/24/24 02/24/24 History heparin lock flush (porcine) 5 ml IV QS 02/24/24 02/24/24 History heparin lock flush (porcine) 10 10 unit IV DAILY 02/24/24 02/24/24 History unit/mL intravenous solution insulin glargine 100 unit/mL 7 unit subcut HS 02/24/24 02/24/24 History subcutaneous solution (Lantus U-100 Insulin) levothyroxine 100 mcg tablet 100 mcg PO DAILY 02/24/24 02/24/24 History lidocaine 4 % topical patch 1 patch topical DAILY 02/24/24 02/24/24 History melatonin 10 mg tablet 10 mg PO HS 02/24/24 02/24/24 History menthol 10 % topical cream 1 applic topical QS 02/24/24 02/24/24 History (Biofreeze (menthol)) nystatin 100,000 unit/gram topical 1 applic topical QPM 02/24/24 02/24/24 History powder polyethylene glycol 3350 17 gram 17 g PO QAM 02/24/24 02/24/24 History oral powder packet (Miralax) sodium chloride 0.9 % (flush) 10 ml IV QS 02/24/24 02/24/24 History tobramycin 0.3 % eye drops 2 drp ophthalmic (eye) QID 02/24/24 02/24/24 History Past Med/Surg History Problem List (Updated 02/25/24 @ 06:47 by Juanito Wall DO) Altered mental status Aspiration into airway Multifocal pneumonia Breast cancer (Acute) Degeneration of cervical intervertebral disc Weakness (Acute) Cervical strain (Acute) Pleural effusion (Acute) Bilateral edema of lower extremity (Acute) Frequent falls (Acute) Lymphedema Palliative care by specialist Bilateral nephrolithiasis Hypokalemia Urinary tract infection (Acute) Nausea & vomiting (Acute) Acute dehydration (Acute) Abdominal pain (Acute) Breast skin changes Microalbuminuria Hypothyroidism Pain due to interstitial cystitis Chronic diarrhea Recurrent UTI (urinary tract infection) Burning with urination MRSA (methicillin resistant staph aureus) culture positive (Acute) Diabetes type 2, controlled Carpal tunnel syndrome on both sides with surgical intervention Anemia (Acute) Vitamin D deficiency Carpal tunnel syndrome of right wrist Leukopenia (Acute) Memory loss Metastatic breast cancer Anxiety Diabetic neuropathy pt denies Hyperglobulinemia Aortic valve stenosis Status post placement of cardiac pacemaker Anticoagulant long-term use Tachy-darren syndrome Atrial fibrillation follows with Dr Ramires Vitamin B12 deficiency (Chronic) Positive ESTEPHANIA (antinuclear antibody) (Chronic) Lumbar radiculopathy (Chronic) Lipodystrophy (Chronic) Gait disturbance (Chronic) Depression Constipation (Chronic) Arthritis (Chronic) Medical History Human metapneumovirus pneumonia Infected venous access port 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 History of blood transfusion Closed fracture of left distal fibula Breast cancer (12/18/15) "Abnormal left breast mammogram Status post core needle biopsy 12/18/2015 revealing infiltrating ductal carcinoma Estrogen receptor positive, progesterone receptor positive, HER-2/po negative Status post left needle localization lumpectomy and sentinel lymph node biopsy 01/04/2016 Stage pT1c pN0M0 Status post completion of radiation therapy 02/13/2016 received 3850 cGy utilizing accelerated partial breast irradiation." On 01/17/16 14:10 Deidre Orta wrote "Abnormal left breast mammogram Status post core needle biopsy 12/18/2015 revealing infiltrating ductal carcinoma Estrogen receptor positive, progesterone receptor positive, HER-2/po negative Status post left needle localization lumpectomy and sentinel lymph node biopsy 01/04/2016 Stage pT1c pN0M0" Generalized weakness Lung nodules monitoring Urinary frequency Pacemaker 2019, follows with Dr Ramires. checks Q6 months. Neuropathy Aortic stenosis Mild aortic stenosis (MERLENE 1.6cm2; MG 7.8mmHg) per 12/2019 echo Diabetes mellitus, type 2 IDDM Degenerative disc disease Hx of cardiac pacemaker Implanted 2019 (tachy-darren syndrome), [employer] device Follows with Dr. Ramires Liver mass Pt denies but 05/17/20 PET scan shows 2.5 right hepatic lobe mass consistent with known hepatic metastasis Anemia h/o blood transfusions Infiltrating ductal carcinoma of left breast Initial Dx 2016- s/p lumpectomy, XRT and anastrozole Metastatic breast cancer 03/2020, [facility] Peripheral neuropathy Hands (B/L CTS) Obstructive sleep apnea "Resolved" s/p gastric bypass (? retested) Hypercholesterolemia Gastroesophageal reflux disease controlled, stable per pt Chronic pain Cervical spine disease Full ROM per pt Surgical History H/O breast biopsy (05/29/23) Skin, left breast, 2 punch biopsies: In office procedure Dr. Alvarez - Fibrosing dermatitis. - See comment Status post revision of total replacement of right knee History of removal of Port-a-Cath (01/11/22) Infected port right anterior chest removed Dr. Shah S/P cardiac pacemaker procedure 2019 History of surgery Right knee TKA revision with spacer (07/11/2021): SAB at L3-4 (x2 attempts) + PNB at [facility]. No issues noted per post-op anesthesia progress note. History of carpal tunnel surgery of left wrist 06/2021 History of carpal tunnel surgery of right wrist Port-A-Cath in place hx - 05/2020 since removed d/t infection at port 12/2021 History of colonoscopy History of evacuation of hematoma Hematoma right breast and right chest 08/31/13 Dr. Shah H/O bilateral hip replacements Status post repair of ventral hernia History of total knee arthroplasty R/L Status post total abdominal hysterectomy and bilateral salpingo-oophorectomy Status post lumbar spine surgery for decompression of spinal cord Status post partial mastectomy of left breast Status post panniculectomy History of section x1 Status post laparoscopic cholecystectomy Status post gastric bypass for obesity Status post arthroscopy of left shoulder Status post appendectomy Family History Unknown Breast cancer Emphysema lung Mother Diabetes Heart disease Father Heart disease Other No family history of adverse response to anesthesia Denies family history of Ovarian cancer Prostate cancer Coronary heart disease Colorectal cancer Social History Smoking Status: Never smoker Tobacco Type: Cigarettes packs per day: 2; Second Hand Exposure: No; Do You Dip or Chew Tobacco: No; Hx Alcohol Use: No Hx Substance Use: No Preferred Language: Sinhala Communication Ability: Effective Visual Impairment: No Limitations Hearing Ability: Normal Head Of English Required: No Beliefs That Will Affect Care: None marital status: Current Living Situation: Senior Living Current Living Situation Comment: [facility] current occupational status: retired Feels Safe at Home: Yes Childhood Exposure to Second-Hand Smoke: Yes Diet: diabetic caffeine: Yes Dental Care, Regularly: No Physical Activity Frequency: 1-2 Times per Week Seatbelt Use: always Sunscreen Use: No Assistive Devices: Glasses and Walker Physical Exam Physical Exam: Gen: NAD, somnolent, arousable w/ verbal stimuli but returns to sleep HEENT: Supple, no LAD, no thyromegaly, no JVD Resp:Non-labored, dullness at bases bilaterally, faint crackles bilaterally to middle lobe, no wheezing CV:RRR, normal S1/S2, systolic murmur at RUSB/LUSB Abd: Soft, non-distended, no TTP, normoactive bowels, no masses Extr: 2+ dp bilaterally, 1+ pitting LE edema Skin: No rashes lesions or erythema Neuro: Full examination unobtainable d/t somnolence, reflexes intact in bilateral UE/LE Results & Data Results & Data Vital Signs (Past 12 Hours) Vital Signs Temp Pulse Pulse Resp BP BP Pulse Ox 02/24/24 20:30 184/79 H 95 02/24/24 20:00 18 196/101 H 97 02/24/24 19:30 84 18 115/91 99 02/24/24 18:35 97 02/24/24 18:00 61 21 183/98 H 94 02/24/24 18:00 61 16 183/98 H 02/24/24 17:31 60 23 171/107 H 97 02/24/24 17:00 60 20 200/102 H 95 02/24/24 16:31 60 20 203/92 H 95 02/24/24 16:21 65 18 168/119 H 96 02/24/24 15:43 60 21 196/117 H 94 02/24/24 15:30 64 16 96 02/24/24 14:56 71 02/24/24 14:55 96 02/24/24 14:55 36.8 C 71 16 196/91 H 96 02/24/24 14:47 72 22 196/91 H 94 O2 Del Method 02/24/24 20:30 02/24/24 20:00 02/24/24 19:30 02/24/24 18:35 Room Air 02/24/24 18:00 02/24/24 18:00 02/24/24 17:31 02/24/24 17:00 02/24/24 16:31 02/24/24 16:21 Room Air 02/24/24 15:43 02/24/24 15:30 Room Air 02/24/24 14:56 02/24/24 14:55 Room Air 02/24/24 14:55 Room Air 02/24/24 14:47 Supervising Physician Co-Signing Physician Notes Attending addendum: I have physically seen this patient, have supervised the medical residents activities, and agree with the H&P unless as otherwise noted. Assessment and Plan: Strokelike symptoms- Patient with reported 12 to 24 hours of intermittent word salad and agitation She was given Zyprexa ODT while in the ED, at this point sleeping comfortably Laboratory workup including CBC with differential, chemistry profile, troponin, respiratory BioFire were negative Magnesium was mildly low at 1.6, albumin mildly low at 2.9, TSH was mildly elevated at 5.558 CT scan of head without contrast was negative CTA head and neck are now ordered Unable to perform MRI this evening due to presence of cardiac pacemaker EKG without acute findings of ischemia Stroke without tPA order set including: Neurochecks, PT/OT/speech and neurology consults The patient will be admitted to telemetry for serial cardiac enzymes, serial EKG's, cardiac rhythm monitoring and a 2-D echocardiogram with Dopplers. MSSA bacteremia- Patient had been on Ancef 2 g IV every 8 hours, to complete her 6-week course today Has been admitted from 01/12-02/03 for shock secondary to sepsis and hypovolemia Multifocal pneumonia/large bilateral pleural effusions- As noted on CTA chest, that was negative for PE, but did show significant depend ent airspace consolidations concerning for multilobar pneumonia/aspiration- Starting Zosyn 4.5 g IV every 8 hours Atrial fibrillation tachybradycardia syndrome/presence of pacemaker- Continuing Eliquis Diabetes mellitus- Continue glargine as noted Placed on Accu-Cheks with NovoLog SSI Remaining orders and notations as noted Resident Activity Tracking Resident Involvement: Resident Care Provided Care Provided: Adult Hospital Medicine (5) Hypothyroidism Hypothyroidism type: unspecified Qualified Code(s): E03.9 - Hypothyroidism, unspecified (6) Diabetes type 2, controlled Diabetes mellitus complication status: without complication 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
[2024-02-24 21:01] LABS: Appearance Urine Clear (Clear); Bacteria Urine Automated None Seen (None Seen); Bilirubin Urine Negative (Negative); Blood Urine Negative (Negative); Cast Urine Automated 0-2 /lpf (0-2); Color Urine Yellow; Epithelial Cell Urine Auto 0-2 /hpf (0-2); Glucose Urine UA Negative (Negative); Ketones Urine 2+ (Negative); Leukocyte Esterase Urine Trace (Negative); Nitrite Urine Negative (Negative); Protein Urine Trace (Negative); Specific Gravity Urine 1.019 (1.000-1.030); Urobilinogen Urine Negative (Negative)
[2024-02-24] MEDS: FUROSEMIDE INJ 20 MG/2 ML VIAL IV ONE (22:44)
--- NOTE | 2024-02-24 22:45 | Emergency Department Note ---
Impression & Plan AMS (altered mental status), Difficulty with speech ED Provider Note CHIEF COMPLAINT: Agitation, speech difficulty HISTORY OF PRESENT ILLNESS: This 74-year-old female patient past medical history of breast cancer, left upper extremity lymphedema, kidney stones, recurrent UTI, type 2 diabetes, memory difficulty, aortic valve stenosis, tachybradycardia syndrome, atrial fibrillation, lumbar radiculopathy, presents to the emergency department with complaints of speech difficulties and agitation. The patient apparently began speaking in a bit of a mumble or word salad. She has been very responsive, but trails off into unintelligible sentences. Patient has been complaining of pain, daughter states she has been on Oxy 10 mg as needed. She and her sister are afraid that the patient is on too much oxy. Patient was recently hospitalized due to bacteremia, was discharged to [facility] on a PICC line and is by report receiving IV Ancef. REVIEW OF SYSTEMS: A review of systems was performed with positives and pertinent negatives listed in the history of present illness. 10 systems were reviewed and are otherwise negative. ALLERGIES: see below MEDICATIONS: see below PMH: see below SOCIAL HISTORY: see below DDx: UTI, stroke, intracranial hemorrhage, pneumonia, delirium, metabolic encephalopathy among others. PHYSICAL EXAM: Vital signs reviewed. Noted to be hypertensive. General: Well-appearing 74 yo female, in no significant distress. HEENT: No scleral icterus, PERRLA, neck supple. MMM. Cardiovascular: Regular rate and rhythm, no extra sounds. Pulmonary: Clear to auscultation bilaterally, normal work of breathing. Abdomen: Soft, nontender, nondistended, positive bowel sounds. Musculoskeletal: Atraumatic, no peripheral edema. Neurologic: Patient awake alert and oriented x 3, speech is clear Skin: Warm, dry, no rash EMERGENCY DEPARTMENT COURSE/MDM: this patient was evaluated and appeared to be in no significant distress. IV access was obtained and laboratory work was drawn. Patient was placed on the case monitor and noted to be in a ventricularly paced rhythm. Head CT was performed and reveals no evidence of acute intracranial hemorrhage. CT angiograms of the head and neck are negative. Chest x-ray reveals evidence of bilateral pleural effusions. Patient's laboratory work is fairly reassuring, normal WBC. Kidney function remains stable. Patient was a bit agitated in the emergency department. She was given 25 mg of Seroquel by mouth. Patient also requested her pain medication which is oxy be administered. Patient was given 5 mg by mouth. Nursing stated she took the medication however she tried to bite the nurses fingers. UA significant for 6-10 WBCs. There is other significant evidence of infection. Treatment will be deferred to the inpatient team if necessary. Patient's case was discussed with the hospitalist service for admission and further management secondary to the change in mental status and speech, for further workup. Patient's daughter was made aware of the plan and agrees. MONITORING: An order for cardiac monitoring was placed and the patient is noted to be in a ventricular paced rhythm at 60 bpm. QTc is 482. Normal ST segments. RADIOLOGY: Chest x-ray: IMPRESSION: 1. Cardiomegaly and cardiac pacemaker with evidence of congestive failure and pulmonary edema. 2. Small pleural effusions with dependent consolidation. Head CT: No acute intracranial hemorrhage, no evidence of acute territorial infarction or other acute intracranial disease process. CT angiogram: IMPRESSION: Negative CT angiogram of the head. CT angiogram of the neck: IMPRESSION: Negative CTA neck. EKG: To my interpretation reveals a ventricular paced rhythm at 60 bpm. QTc is 482. DISPOSITION: Admission Past Med/Surg History Problem List (Updated 02/28/24 @ 18:21 by Dawn Devlin MD) Difficulty with speech (Acute) AMS (altered mental status) (Acute) Altered mental status Aspiration into airway Multifocal pneumonia Breast cancer (Acute) Degeneration of cervical intervertebral disc Weakness (Acute) Cervical strain (Acute) Pleural effusion (Acute) Bilateral edema of lower extremity (Acute) Frequent falls (Acute) Lymphedema Palliative care by specialist Bilateral nephrolithiasis Hypokalemia Urinary tract infection (Acute) Nausea & vomiting (Acute) Acute dehydration (Acute) Abdominal pain (Acute) Breast skin changes Microalbuminuria Hypothyroidism Pain due to interstitial cystitis Chronic diarrhea Recurrent UTI (urinary tract infection) Burning with urination MRSA (methicillin resistant staph aureus) culture positive (Acute) Diabetes type 2, controlled Carpal tunnel syndrome on both sides with surgical intervention Anemia (Acute) Vitamin D deficiency Carpal tunnel syndrome of right wrist Leukopenia (Acute) Memory loss Metastatic breast cancer Anxiety Diabetic neuropathy pt denies Hyperglobulinemia Aortic valve stenosis Status post placement of cardiac pacemaker Anticoagulant long-term use Tachy-monica syndrome Atrial fibrillation follows with Dr Ramires Vitamin B12 deficiency (Chronic) Positive ESTEPHANIA (antinuclear antibody) (Chronic) Lumbar radiculopathy (Chronic) Lipodystrophy (Chronic) Gait disturbance (Chronic) Depression Constipation (Chronic) Arthritis (Chronic) Medical History Septic shock MSSA bacteremia Elevated troponin Anticoagulant long-term use Chronic GERD Anemia Human metapneumovirus pneumonia Infected venous access port 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 History of blood transfusion Closed fracture of left distal fibula Generalized weakness Lung nodules monitoring Urinary frequency Pacemaker 2019, follows with Dr Ramires. checks Q6 months. Neuropathy Aortic stenosis Mild aortic stenosis (MERLENE 1.6cm2; MG 7.8mmHg) per 12/2019 echo Diabetes mellitus, type 2 IDDM Degenerative disc disease Hx of cardiac pacemaker Implanted 2019 (tachy-monica syndrome), [employer] device Follows with Dr. Ramires Liver mass Pt denies but 05/17/20 PET scan shows 2.5 right hepatic lobe mass consistent with known hepatic metastasis Anemia h/o blood transfusions Infiltrating ductal carcinoma of left breast Initial Dx 2015- s/p lumpectomy, XRT and anastrozole Metastatic breast cancer 03/2020, follows with [facility] Peripheral neuropathy Hands (B/L CTS) Obstructive sleep apnea "Resolved" s/p gastric bypass (? retested) Hypercholesterolemia Gastroesophageal reflux disease controlled, stable per pt Chronic pain Cervical spine disease Full ROM per pt Surgical History H/O breast biopsy (05/29/23) Skin, left breast, 2 punch biopsies: In office procedure Dr. Alvarez - Fibrosing dermatitis. - See comment Status post revision of total replacement of right knee History of removal of Port-a-Cath (01/11/22) Infected port right anterior chest removed Dr. Shah S/P cardiac pacemaker procedure 2019 History of surgery Right knee TKA revision with spacer (07/11/2021): SAB at L3-4 (x2 attempts) + PNB at [facility]. No issues noted per post-op anesthesia progress note. History of carpal tunnel surgery of left wrist 06/2021 History of carpal tunnel surgery of right wrist Port-A-Cath in place hx - 05/2020 since removed d/t infection at port 12/2021 History of colonoscopy History of evacuation of hematoma Hematoma right breast and right chest 08/31/13 Dr. Shah H/O bilateral hip replacements Status post repair of ventral hernia History of total knee arthroplasty R/L Status post total abdominal hysterectomy and bilateral salpingo-oophorectomy Status post lumbar spine surgery for decompression of spinal cord Status post partial mastectomy of left breast Status post panniculectomy History of section x1 Status post laparoscopic cholecystectomy Status post gastric bypass for obesity Status post arthroscopy of left shoulder Status post appendectomy Family History Unknown Breast cancer Emphysema lung Mother Diabetes Heart disease Father Heart disease Other No family history of adverse response to anesthesia Denies family history of Ovarian cancer Prostate cancer Coronary heart disease Colorectal cancer Social History Smoking Status: Never smoker Tobacco Type: Cigarettes packs per day: 2; Second Hand Exposure: No; Do You Dip or Chew Tobacco: No; Hx Alcohol Use: No Hx Substance Use: No Preferred Language: Georgian Communication Ability: Effective Visual Impairment: No Limitations Hearing Ability: Normal Supervisor [place] Required: No Beliefs That Will Affect Care: None marital status: Current Living Situation: Alf Current Living Situation Comment: [facility] current occupational status: retired Feels Safe at Home: Yes Childhood Exposure to Second-Hand Smoke: Yes Diet: diabetic caffeine: Yes Dental Care, Regularly: No Physical Activity Frequency: 1-2 Times per Week Seatbelt Use: always Sunscreen Use: No Assistive Devices: Walker Allergies Allergies Allergy/AdvReac Type Severity Reaction Status Date / Time metformin AdvReac Intermediate RESTLESSNES Verified 12/26/23 14:11 S Home Meds Home Medications Medication Instructions Recorded Confirmed duloxetine 60 mg capsule,delayed 60 mg PO QAM 09/26/23 02/24/24 release (Cymbalta) oxycodone 10 mg tablet 10 mg PO Q4 PRN Pain 9-10 10/17/23 02/24/24 phenazopyridine 95 mg tablet 95 mg PO Q8 PRN BLADDER PAIN 10/17/23 02/24/24 acetaminophen 500 mg tablet 1,000 mg PO Q8 PRN Fever Or Pain 02/24/24 02/24/24 (Tylenol Extra Strength) cefazolin 2 gram solution for 2 g IV Q8H 02/24/24 02/24/24 injection dextran 70-hypromellose eye drops 2 drp OPB Q6 PRN Dry Eye(S) 02/24/24 02/24/24 in a dropperette (Artificial Tears (PF) drops in a dropperette) doxazosin 2 mg tablet 2 mg PO QAM 02/24/24 02/24/24 heparin lock flush (porcine) 5 ml IV QS 02/24/24 02/24/24 heparin lock flush (porcine) 10 10 unit IV DAILY 02/24/24 02/24/24 unit/mL intravenous solution insulin glargine 100 unit/mL 7 unit subcut HS 02/24/24 02/24/24 subcutaneous solution (Lantus U-100 Insulin) levothyroxine 100 mcg tablet 100 mcg PO DAILY 02/24/24 02/24/24 lidocaine 4 % topical patch 1 patch topical DAILY 02/24/24 02/24/24 melatonin 10 mg tablet 10 mg PO HS 02/24/24 02/24/24 menthol 10 % topical cream 1 applic topical QS 02/24/24 02/24/24 (Biofreeze (menthol)) nystatin 100,000 unit/gram topical 1 applic topical QPM 02/24/24 02/24/24 powder polyethylene glycol 3350 17 gram 17 g PO QAM 02/24/24 02/24/24 oral powder packet (Miralax) sodium chloride 0.9 % (flush) 10 ml IV QS 02/24/24 02/24/24 tobramycin 0.3 % eye drops 2 drp ophthalmic (eye) QID 02/24/24 02/24/24 Previous Rx's Medication Instructions Recorded blood sugar diagnostic (Catalyst MobileTouch #100 ea 10/07/22 Ultra Test strips) cyanocobalamin (vitamin B-12) 1,000 mcg IM MONTHLY #1 ea 10/07/22 1,000 mcg/mL injection kit OneTouch Delica Plus Lancet 33 #300 ea 01/09/23 gauge (lancets) albuterol sulfate 90 mcg/actuation 2 puff inhalation Q4 PRN Shortness 02/24/23 aerosol inhaler Of Breath Or Wheezing #8.5 grams pen needle, diabetic 32 gauge x #100 ea 06/12/2332" (Easy Comfort Pen Egan) apixaban 5 mg tablet (Eliquis) 5 mg PO BID #60 tabs 09/16/23 pantoprazole 40 mg tablet,delayed 40 mg PO QAM #90 tabs 10/07/23 release (Protonix) atorvastatin 40 mg tablet 40 mg PO HS #90 tabs 10/14/23 sennosides 8.6 mg tablet (Senokot) 17.2 mg (2 x 8.6 mg) PO HS #7 tabs 02/04/24 Results & Data (ED) Vital Signs Vital Signs - 24 hr 02/24/24 14:47 02/24/24 14:55 02/24/24 14:55 Temperature 36.8 C Temperature Source Oral Pulse Rate 72 71 Pulse Rate [Apical] Pulse Rate from SpO2 Sensor Pulse Rhythm Regular Pulse Rhythm [Apical] Pulse Strength Normal Pulse Strength [Apical] Respiratory Rate 22 16 Respiratory Effort / Characteristics Non-Labored Spontaneous Respiratory Depth Normal Respiratory Pattern Regular Blood Pressure 196/91 H 196/91 H Blood Pressure [Left Arm] Blood Pressure Mean 161 126 Blood Pressure Mean [Left Arm] Blood Pressure Position Sitting Blood Pressure Position [Left Arm] Pulse Oximetry 94 96 96 Oxygen Delivery Method Room Air Room Air Sepsis Recent Fever Within 48 Hours No Sepsis New/Unexplained Change in Mental Status No Sepsis Action Taken by Nursing No Action Required 02/24/24 14:56 02/24/24 15:30 02/24/24 15:43 Temperature Temperature Source Pulse Rate 71 64 60 Pulse Rate [Apical] Pulse Rate from SpO2 Sensor Pulse Rhythm Regular Pulse Rhythm [Apical] Pulse Strength Pulse Strength [Apical] Respiratory Rate 16 21 Respiratory Effort / Characteristics Respiratory Depth Respiratory Pattern Blood Pressure 196/117 H Blood Pressure [Left Arm] Blood Pressure Mean 136 Blood Pressure Mean [Left Arm] Blood Pressure Position Blood Pressure Position [Left Arm] Pulse Oximetry 96 94 Oxygen Delivery Method Room Air Sepsis Recent Fever Within 48 Hours Sepsis New/Unexplained Change in Mental Status Sepsis Action Taken by Nursing 02/24/24 16:21 02/24/24 16:31 02/24/24 17:00 Temperature Temperature Source Pulse Rate 60 60 Pulse Rate [Apical] 65 Pulse Rate from SpO2 Sensor 60 60 Pulse Rhythm Pulse Rhythm [Apical] Regular Pulse Strength Pulse Strength [Apical] Normal Respiratory Rate 18 20 20 Respiratory Effort / Characteristics Non-Labored Spontaneous Respiratory Depth Normal Respiratory Pattern Regular Blood Pressure 203/92 H 200/102 H Blood Pressure [Left Arm] 168/119 H Blood Pressure Mean 115 134 Blood Pressure Mean [Left Arm] 135 Blood Pressure Position Blood Pressure Position [Left Arm] Sitting Pulse Oximetry 96 95 95 Oxygen Delivery Method Room Air Sepsis Recent Fever Within 48 Hours Sepsis New/Unexplained Change in Mental Status Sepsis Action Taken by Nursing 02/24/24 17:31 02/24/24 18:00 02/24/24 18:00 Temperature Temperature Source Pulse Rate 60 61 Pulse Rate [Apical] 61 Pulse Rate from SpO2 Sensor 60 Pulse Rhythm Pulse Rhythm [Apical] Regular Pulse Strength Pulse Strength [Apical] Normal Respiratory Rate 23 16 21 Respiratory Effort / Characteristics Non-Labored Spontaneous Respiratory Depth Normal Respiratory Pattern Regular Blood Pressure 171/107 H 183/98 H Blood Pressure [Left Arm] 183/98 H Blood Pressure Mean 129 113 Blood Pressure Mean [Left Arm] 126 Blood Pressure Position Blood Pressure Position [Left Arm] Sitting Pulse Oximetry 97 94 Oxygen Delivery Method Sepsis Recent Fever Within 48 Hours Sepsis New/Unexplained Change in Mental Status Sepsis Action Taken by Nursing 02/24/24 18:35 02/24/24 19:27 02/24/24 19:30 Temperature Temperature Source Pulse Rate 60 84 Pulse Rate [Apical] Pulse Rate from SpO2 Sensor Pulse Rhythm Pulse Rhythm [Apical] Pulse Strength Pulse Strength [Apical] Respiratory Rate 18 Respiratory Effort / Characteristics Respiratory Depth Respiratory Pattern Blood Pressure 115/91 Blood Pressure [Left Arm] Blood Pressure Mean 96 Blood Pressure Mean [Left Arm] Blood Pressure Position Blood Pressure Position [Left Arm] Pulse Oximetry 97 99 Oxygen Delivery Method Room Air Sepsis Recent Fever Within 48 Hours Sepsis New/Unexplained Change in Mental Status Sepsis Action Taken by Nursing 02/24/24 20:00 02/24/24 20:30 Temperature Temperature Source Pulse Rate Pulse Rate [Apical] Pulse Rate from SpO2 Sensor 60 60 Pulse Rhythm Pulse Rhythm [Apical] Pulse Strength Pulse Strength [Apical] Respiratory Rate 18 Respiratory Effort / Characteristics Respiratory Depth Respiratory Pattern Blood Pressure 196/101 H 184/79 H Blood Pressure [Left Arm] Blood Pressure Mean 132 114 Blood Pressure Mean [Left Arm] Blood Pressure Position Blood Pressure Position [Left Arm] Pulse Oximetry 97 95 Oxygen Delivery Method Sepsis Recent Fever Within 48 Hours Sepsis New/Unexplained Change in Mental Status Sepsis Action Taken by Alf Medications Current Medication List: was personally reviewed by me Laboratory Data Attestation: I reviewed the patient's lab results. 02/28/24 06:49 02/28/24 06:49 Lab Results 02/24/24 02/24/24 Range/Units 15:50 20:35 WBC 7.71 (4.8-10.8) K/ul RBC 3.03 L (4.20-5.40) M/uL Hgb 8.2 L (12.0-16.0) g/dl Hct 27.2 L (37.0-47.0) % MCV 89.8 (80.0-100.0) fL MCH 27.1 (25.0-34.0) pg MCHC 30.1 L (32.0-36.0) g/dL RDW Std Deviation 58.5 H (36.4-46.3) fL RDW Coeff of Thompson 17.6 H (11.5-14.5) % Plt Count 91 L (130-400) K/uL Immature Gran % (Auto) 0.5 % Neut % (Auto) 81.5 % Lymph % (Auto) 7.1 % [place] % (Auto) 8.4 % Eos % (Auto) 2.1 % Baso % (Auto) 0.4 % Neut # (Auto) 6.28 (1.40-6.50) K/uL Lymph # (Auto) 0.55 L (1.20-3.40) K/uL [place] # (Auto) 0.65 H (0.11-0.59) K/uL Eos # (Auto) 0.16 (0.00-0.50) K/uL Baso # (Auto) 0.03 (0.00-0.20) K/uL Immature Gran # (Auto) 0.04 (0.01-0.20) K/uL Polychromasia 1+ Tear Drop Cells 1+ Ovalocytes 1+ Acanthocytes (Spur) 1+ Sodium 137 (136-145) mmol/L Potassium 3.8 (3.5-5.1) mmol/L Chloride 104 (98-107) mmol/L Carbon Dioxide 26 (21-32) mmol/L Anion Gap 7 (3-11) BUN 14 (6-23) mg/dl Creatinine 0.33 L (0.6-1.2) mg/dl Est Cr Clr Drug Dosing 148.0 ml/min eGFR 107.37 BUN/Creatinine Ratio 42.4 H (10-20) Glucose 98 (70-99(Fasting)) mg/dl Calcium 7.9 L (8.6-10.3) mg/dl Magnesium 1.6 L (1.7-2.4) mg/dl Total Bilirubin 0.5 (0.2-1.0) mg/dl AST 11 L (13-39) U/L ALT < 3 L (7-52) U/L Alkaline Phosphatase 93 (34-104) U/L Troponin I High Sens 9.5 (0-14) pg/ml Total Protein 5.2 L (6.0-8.3) gm/dl Albumin 2.9 L (3.4-5.0) gm/dl Globulin 2.3 L (2.5-4.0) gm/dl Albumin/Globulin Ratio 1.3 (0.9-2) TSH 5.558 H (0.300-4.500) uIu/ml Free T4 1.15 (0.61-1.60) ng/dl Urine Color Yellow Urine Appearance Clear (Clear) Urine pH 6.0 (4.5-7.5) Ur Specific [place] 1.019 (1.000-1.030) Urine Protein Trace H (Negative) Urine Glucose (UA) Negative (Negative) Urine Ketones 2+ H (Negative) Urine Blood Negative (Negative) Urine Nitrite Negative (Negative) Urine Bilirubin Negative (Negative) Urine Urobilinogen Negative (Negative) Ur Leukocyte Esterase Trace H (Negative) Urine WBC (Auto) 6-10 H (0-5) /hpf Urine RBC (Auto) 3-5 H (0-2) /hpf U Hyaline Cast (Auto) 0-2 (0-2) /lpf U Epithel Cells (Auto) 0-2 (0-2) /hpf Urine Bacteria (Auto) None Seen (None Seen) Adenovirus (PCR) Not Detected (NotDetected) B. pertussis DNA (PCR) Not Detected (NotDetected) B.parapertussis DNA PCR Not Detected (NotDetected) C. pneumoniae DNA (PCR) Not Detected (NotDetected) Coronavirus OC43 (PCR) Not Detected (NotDetected) Coronavirus HKU1 (PCR) Not Detected (NotDetected) Coronavirus 229E (PCR) Not Detected (NotDetected) SARS-CoV-2 (PCR) Not Detected (NotDetected) Coronavirus NL63 (PCR) Not Detected (NotDetected) Human Metapneumovir PCR Not Detected (NotDetected) Influenza Type A (PCR) Not Detected (NotDetected) Influenza Type B (PCR) Not Detected (NotDetected) M. pneumoniae (PCR) Not Detected (NotDetected) Parainfluenza 1 (PCR) Not Detected (NotDetected) Parainfluenza 2 (PCR) Not Detected (NotDetected) Parainfluenza 3 (PCR) Not Detected (NotDetected) Parainfluenza 4 (PCR) Not Detected (NotDetected) RSV (PCR) Not Detected (NotDetected) Entero/Rhino (PCR) Not Detected (NotDetected) Administered Medications Acetaminophen (Acetaminophen 500 Mg Tab) 1,000 mg PO Q8H PRN PRN Reason: Fever Or Pain (First Line) Stop: 03/26/24 00:17 Last Admin: 02/28/24 10:28 Dose: 1,000 mg Documented By: Admin: 02/27/24 23:28 Dose: 1,000 mg Documented By: gridcap machine operator: 02/27/24 14:29 Dose: 1,000 mg Documented By: Admin: 02/26/24 09:29 Dose: 1,000 mg Documented By: Admin: 02/25/24 20:02 Dose: 1,000 mg Documented By: Admin: 02/25/24 09:14 Dose: 1,000 mg Documented By: DELORES Amoxicillin/Clavulanate Potassium (Amoxicillin/Clavulanate 875 Mg Tab) [facility] [place] Stop: 03/02/24 23:59 Last Admin: 02/28/24 17:13 Dose: 1 tab Documented By: Admin: 02/28/24 08:13 Dose: 1 tab Documented By: Admin: 02/27/24 18:25 Dose: 1 tab Documented By: LADI Apixaban (Apixaban 5 Mg Tablet) 5 mg PO BID [facility] Stop: 03/26/24 00:17 Last Admin: 02/28/24 08:13 Dose: 5 mg Documented By: Admin: 02/27/24 20:57 Dose: 5 mg Documented By: gridcap machine operator: 02/27/24 09:35 Dose: 5 mg Documented By: Admin: 02/26/24 21:45 Dose: 5 mg Documented By: Admin: 02/26/24 10:03 Dose: 5 mg Documented By: Admin: 02/25/24 20:03 Dose: 5 mg Documented By: Admin: 02/25/24 09:09 Dose: 5 mg Documented By: Admin: 02/25/24 01:12 Dose: Not Given Documented By: NEEMA Doxazosin Mesylate (Doxazosin Mesylate Tab 2 Mg Tab) [facility] [place] Stop: 03/26/24 08:59 Last Admin: 02/28/24 08:13 Dose: 2 mg Documented By: Admin: 02/27/24 09:35 Dose: 2 mg Documented By: Admin: 02/26/24 10:03 Dose: 2 mg Documented By: Admin: 02/25/24 09:10 Dose: 2 mg Documented By: DELORES Duloxetine HCl (Duloxetine Hcl 60 Mg Cap) 60 mg PO [facility] Stop: 03/26/24 08:59 Last Admin: 02/28/24 08:13 Dose: 60 mg Documented By: Admin: 02/27/24 09:35 Dose: 60 mg Documented By: Admin: 02/26/24 10:04 Dose: 60 mg Documented By: Admin: 02/25/24 09:10 Dose: 60 mg Documented By: DELORES Hydromorphone HCl (Hydromorphone Inj 0.5 Mg/0.5 Ml Syr) 0.25 mg IV Q4H PRN PRN Reason: Pain (while NPO) Stop: 03/10/24 01:13 Last Admin: 02/25/24 04:39 Dose: 0.25 mg Documented By: MED Pantoprazole Sodium 40 mg/ (Syringe) 10 mls @ 5 mls/min IV DAILY@1100 [facility] Stop: 03/26/24 10:59 Last Admin: 02/28/24 13:55 Dose: 5 mls/min Documented By: Admin: 02/27/24 12:50 Dose: 5 mls/min Documented By: Admin: 02/26/24 12:41 Dose: 5 mls/min Documented By: Admin: 02/25/24 12:18 Dose: 5 mls/min Documented By: DELORES Insulin Glargine (Lantus Per Unit Charge) 7 units SQ HS RUTH Stop: 03/26/24 20:59 Last Admin: 02/27/24 21:07 Dose: 7 units Documented By: NEEMA Co-signed By: BRANDI Admin: 02/26/24 21:42 Dose: 7 units Documented By: BURT Co-signed By: SUJIT Admin: 02/25/24 20:02 Dose: 7 units Documented By: SUJIT Co-signed By: MARGOTH Levothyroxine Sodium (Levothyroxine Sodium 100 Mcg Tablet) 100 mcg PO DAILYBB RUTH Stop: 03/26/24 06:29 Last Admin: 02/28/24 05:30 Dose: 100 mcg Documented By: gridcap machine operator: 02/27/24 05:19 Dose: 100 mcg Documented By: Admin: 02/26/24 05:58 Dose: 100 mcg Documented By: Admin: 02/25/24 05:20 Dose: 100 mcg Documented By: NEEMA Lidocaine (Lidocaine 5% 1 Patch) 1 patch TD DAILY RUTH Stop: 03/26/24 08:59 Last Admin: 02/28/24 09:21 Dose: Not Given Documented By: Admin: 02/27/24 09:35 Dose: 1 patch Documented By: Admin: 02/26/24 10:04 Dose: 1 patch Documented By: Admin: 02/25/24 09:10 Dose: 1 patch Documented By: DELORES Melatonin (Melatonin 3 Mg Tab) 6 mg PO HS PRN PRN Reason: Sleep Stop: 03/26/24 23:04 Last Admin: 02/25/24 23:24 Dose: 6 mg Documented By: SUJIT Miscellaneous (Remove Lidoderm Patch) 1 each N/A DAILY@2100 RUTH Stop: 03/26/24 00:40 Last Admin: 02/27/24 21:36 Dose: 1 each Documented By: gridcap machine operator: 02/26/24 21:46 Dose: 1 each Documented By: Admin: 02/25/24 20:04 Dose: 1 each Documented By: Admin: 02/25/24 01:07 Dose: Not Given Documented By: NEEMA Nystatin (Nystatin Powder 15gm Btl) 1 appln EXT QPM RUTH Stop: 03/26/24 20:59 Last Admin: 02/27/24 20:58 Dose: 1 appln Documented By: gridcap machine operator: 02/26/24 21:45 Dose: 1 appln Documented By: Admin: 02/25/24 21:50 Dose: 1 appln Documented By: SUJIT Ondansetron HCl (Ondansetron Inj 2 Mg/Ml 2 Ml Vial) 4 mg IV Q6H PRN PRN Reason: Nausea Stop: 03/26/24 00:17 Last Admin: 02/26/24 09:30 Dose: 4 mg Documented By: LADI Oxycodone HCl (Oxycodone Hcl Ir 5 Mg Tab (Immediate Release)) 10 mg PO Q4 PRN PRN Reason: Pain (Second Line) Stop: 03/10/24 00:17 Last Admin: 02/28/24 18:02 Dose: 10 mg Documented By: Admin: 02/28/24 12:24 Dose: 10 mg Documented By: Admin: 02/28/24 05:29 Dose: 10 mg Documented By: gridcap machine operator: 02/27/24 21:08 Dose: 10 mg Documented By: gridcap machine operator: 02/27/24 17:20 Dose: 10 mg Documented By: Admin: 02/27/24 09:33 Dose: 10 mg Documented By: Admin: 02/27/24 05:18 Dose: 10 mg Documented By: Admin: 02/26/24 21:43 Dose: 10 mg Documented By: Admin: 02/26/24 15:57 Dose: 10 mg Documented By: Admin: 02/26/24 09:28 Dose: 10 mg Documented By: Admin: 02/25/24 12:17 Dose: 10 mg Documented By: DELORES Polyethylene Glycol (Polyethylene (Miralax) 17 Gm Pack) 17 gm PO QAM RUTH Stop: 03/26/24 08:59 Last Admin: 02/28/24 08:27 Dose: 17 gm Documented By: Admin: 02/27/24 12:45 Dose: 17 gm Documented By: Admin: 02/26/24 10:06 Dose: Not Given Documented By: Admin: 02/25/24 09:14 Dose: 17 gm Documented By: DELORES Tobramycin Sulfate (Tobramycin Sulf 0.3% Op Soln 5 Ml Btl) 2 drops OP QID [facility] Stop: 02/29/24 23:59 Last Admin: 02/28/24 17:13 Dose: 2 drops Documented By: SL Admin: 02/28/24 13:00 Dose: 2 drops Documented By: [facility] Admin: 02/28/24 08:14 Dose: 2 drops Documented By: SL Admin: 02/27/24 20:58 Dose: 2 drops Documented By: gridcap machine operator: 02/27/24 18:25 Dose: 2 drops Documented By: Admin: 02/27/24 12:46 Dose: 2 drops Documented By: Admin: 02/27/24 09:35 Dose: 2 drops Documented By: Admin: 02/26/24 21:45 Dose: 2 drops Documented By: Admin: 02/26/24 17:42 Dose: 2 drops Documented By: Admin: 02/26/24 12:41 Dose: 2 drops Documented By: Admin: 02/26/24 10:05 Dose: 2 drops Documented By: Admin: 02/25/24 20:04 Dose: 2 drops Documented By: Admin: 02/25/24 16:49 Dose: 2 drops Documented By: KBFrederic Admin: 02/25/24 12:29 Dose: 2 drops Documented By: KBFrederic Admin: 02/25/24 09:10 Dose: 2 drops Documented By: DELORES Trolamine Salicylate (Trolamine Salicylate 10% Crm 255 Appln/85 Gm Tube) 1 appln EXT QS [facility] Stop: 03/26/24 07:59 Last Admin: 02/28/24 16:53 Dose: 1 appln Documented By: SL Admin: 02/28/24 08:15 Dose: 1 appln Documented By: SL Admin: 02/27/24 23:29 Dose: 1 appln Documented By: gridcap machine operator: 02/27/24 17:21 Dose: 1 appln Documented By: MTCatherine Admin: 02/27/24 09:34 Dose: Not Given Documented By: Admin: 02/27/24 00:24 Dose: 1 appln Documented By: Admin: 02/26/24 15:51 Dose: Not Given Documented By: Admin: 02/26/24 10:03 Dose: 1 appln Documented By: Admin: 02/25/24 23:24 Dose: 1 appln Documented By: Admin: 02/25/24 16:49 Dose: 1 appln Documented By: Admin: 02/25/24 09:09 Dose: 1 appln Documented By: DELORES Discontinued Medications Furosemide (Furosemide Inj 20 Mg/2 Ml Vial) 20 mg IV ONE ONE Stop: 02/24/24 22:17 Last Admin: 02/24/24 22:44 Dose: 20 mg Documented By: YAN Magnesium Sulfate/Dextrose (Magnesium Sulfate / D5w) 1 gm in 100 mls @ 50 mls/hr IV Q2H RUTH Stop: 02/25/24 04:59 Last Infusion: 02/25/24 05:40 Dose: Infused Documented By: gridcap machine operator: 02/25/24 03:31 Dose: 50 mls/hr Documented By: Infusion: 02/25/24 03:31 Dose: Infused Documented By: Admin: 02/25/24 01:45 Dose: 50 mls/hr Documented By: Infusion: 02/25/24 01:44 Dose: Infused Documented By: gridcap machine operator: 02/25/24 00:21 Dose: 50 mls/hr Documented By: MED Piperacillin Sod/Tazobactam Sod (Zosyn) 4.5 gm in 100 mls @ 25 mls/hr IV Q8H RUTH; Protocol Stop: 03/03/24 01:14 Last Infusion: 02/27/24 09:39 Dose: Infused Documented By: Admin: 02/27/24 05:19 Dose: 25 mls/hr Documented By: Infusion: 02/27/24 01:05 Dose: Infused Documented By: Admin: 02/26/24 15:50 Dose: 25 mls/hr Documented By: Infusion: 02/26/24 15:36 Dose: Infused Documented By: RRIon Admin: 02/26/24 09:55 Dose: 25 mls/hr Documented By: RRIon Infusion: 02/26/24 03:46 Dose: Infused Documented By: Admin: 02/25/24 23:29 Dose: 25 mls/hr Documented By: Infusion: 02/25/24 20:55 Dose: Infused Documented By: Admin: 02/25/24 16:48 Dose: 25 mls/hr Documented By: Infusion: 02/25/24 13:14 Dose: Infused Documented By: Admin: 02/25/24 09:09 Dose: 25 mls/hr Documented By: DELORES Piperacillin Sod/Tazobactam Sod (Zosyn) 4.5 gm in 100 mls @ 200 mls/hr IV NOW STA; Protocol Stop: 02/25/24 01:52 Last Infusion: 02/25/24 02:20 Dose: Infused Documented By: Admin: 02/25/24 01:46 Dose: 200 mls/hr Documented By: NEEMA Influenza Virus Vacc Triv Types A&B (Influenza Vacc [id number](65y+)/Pf (Iiv3) 0.5ml Syr) 0.5 ml IM .ONCE ONE Stop: 02/25/24 01:24 Last Admin: 02/25/24 12:17 Dose: 0.5 ml Documented By: DELORES Ioversol (Optiray 320 125ml) 125 ml IV ONCE ONE Stop: 02/24/24 23:36 Last Admin: 02/24/24 23:36 Dose: 118 ml Documented By: HERNESTO Oxycodone HCl (Oxycodone Hcl Ir 5 Mg Tab (Immediate Release)) 5 mg PO NOW STA Stop: 02/24/24 17:08 Last Admin: 02/24/24 18:34 Dose: Not Given Documented By: ADILENE Oxycodone HCl (Oxycodone Hcl Ir 5 Mg Tab (Immediate Release)) 5 mg PO NOW STA Stop: 02/24/24 17:21 Last Admin: 02/24/24 18:34 Dose: 5 mg Documented By: ADILENE Quetiapine Fumarate (Quetiapine Fumarate 25 Mg Tablet) 25 mg PO NOW STA Stop: 02/24/24 18:59 Last Admin: 02/24/24 19:27 Dose: 25 mg Documented By: YAN Imaging Data Radiologist's Impression: Head CT 02/24/24 15:21 CT head/brain wo con CLINICAL HISTORY: AMS, ?fall Technique: Contiguous axial CT images of the head were acquired from the base of the skull to the vertex without intravenous contrast administration. Images were viewed in brain, subdural and bone windows. Automated dose lowering techniques and/or adjustment according to patient size were utilized for this exam. Comparison: Comparison is made to CT head 12/26/2023 Findings: The ventricles, basal cisterns, and cerebral sulci are normal. There is no acute intracranial hemorrhage or evidence of acute territorial infarction. Neither mass effect, shift of the midline structures, nor abnormal extra-axial fluid collections are shown. Imaged portions of the paranasal sinuses and mastoid air cells are clear. The orbits appear normal. There are no acute fractures of the calvaria or scalp swelling. Impression: No acute intracranial hemorrhage, no evidence of acute territorial infarction or other acute intracranial disease process. ACT 112: Negative or not required by law. Electronically signed by: Emre Riojas M.D. 02/24/2024 4:17 PM Chest X-Ray 02/24/24 15:22 SINGLE VIEW CHEST CLINICAL HISTORY: Generalized weakness FINDINGS: An AP, portable, upright chest radiograph is compared to study dated 01/22/2024. The examination is degraded by portable technique and apical lordotic positioning. A right-sided PICC line is unchanged in position, as is a 2-lead cardiac pacemaker. The heart is enlarged and noting atherosclerotic calcification of the thoracic aorta. There is pulmonary vascular congestion with mild interstitial edema. There are small pleural effusions with dependent consolidation. No pneumothorax is seen. The bony thorax is grossly intact. A left shoulder arthroplasty is in place. Advanced arthritic changes noted in the right shoulder and spine. Lumbar fusion hardware is partially imaged. Cholecystectomy clips are noted in the right upper quadrant. IMPRESSION: 1. Cardiomegaly and cardiac pacemaker with evidence of congestive failure and pulmonary edema. 2. Small pleural effusions with dependent consolidation. ACT 112: Negative or not required by law. Electronically signed by: Noe Carrillo M.D. 02/24/2024 4:44 PM Discharge Plan Visit Data Chief Complaint: Confusion ED Provider: Dawn Devlin Discharge Problem: AMS (altered mental status), Difficulty with speech Patient Disposition: Admitted As Inpatient Discharge Instructions Interventions: ED Discharge Assessment Last Done: 02/25/24 01:46 Discharge Problem: AMS (altered mental status) Qualifiers: Altered mental status type: unspecified Qualified Code(s): R41.82 - Altered mental status, unspecified
[2024-02-24] MEDS: OPTIRAY 320 125ml IV ONE (23:36)
[2024-02-25] MEDS ORDERED: ALBUTEROL HFA 8 GM INHALER INH PRN (00:18)
[2024-02-25] MEDS: MAGNESIUM SULFATE / D5W 1 GM/100 ML BAG IV SCH (00:21)
[2024-02-25] MEDS ORDERED: MELATONIN 3 MG TAB PO PRN (00:25)
--- NOTE | 2024-02-25 00:31 | CT Scan Report ---
Exam(s): CTA CHEST IV Amt: 118 ml optiray 320 EXAM: CT Angiography Chest With Intravenous Contrast CLINICAL HISTORY: Reason for exam: Pulm embolism r/o/pleural effusions. TECHNIQUE: Axial computed tomographic angiography images of the chest with intravenous contrast. CTDI is 29 mGy and DLP is 756.81 mGy-cm. Automated exposure control was utilized for the study. A dose lowering technique was utilized adhering to the principles of ALARA. MIP reconstructed images were created and reviewed. COMPARISON: No relevant prior studies available. FINDINGS: Pulmonary arteries: Unremarkable. No pulmonary embolism. Aorta: Atherosclerotic changes of the aorta. No thoracic aortic aneurysm. Lungs: Dependent airspace consolidations, concerning for multilobar pneumonia/aspiration. Large bilateral pleural effusions. Pleural space: See above. Heart: Unremarkable. No cardiomegaly. No significant pericardial effusion. No evidence of RV dysfunction. Bones/joints: Degenerative changes of the spine. No acute fracture. No dislocation. Soft tissues: Anasarca. Lymph nodes: Unremarkable. No enlarged lymph nodes. Tubes, lines and devices: Pacemaker leads. IMPRESSION: 1. No pulmonary embolism. 2. Dependent airspace consolidations, concerning for multilobar pneumonia/aspiration. Large bilateral pleural effusions. Electronically signed by: Sampson Cowart MD 02/25/24 00:30 AM
[2024-02-25] MEDS ORDERED: DEXTROSE 50% 50 ML SYRINGE IV PRN (00:45)
[2024-02-25] MEDS ORDERED: GLUCAGON FOR INJ 1 MG VIAL SQ PRN (00:45)
[2024-02-25] MEDS ORDERED: GLUCOSE 10 TAB/TUBE PO PRN (00:45)
[2024-02-25] MEDS ORDERED: CARBOHYDRATES FOR HYPOGLYCEMIA PO PRN (00:45)
[2024-02-25] MEDS ORDERED: GLUCOSE 40% GEL 15 GM TUBE PO PRN (00:45)
[2024-02-25] MEDS: APIXABAN 5 MG TABLET PO SCH (01:07)
[2024-02-25] MEDS: 4.5GM X1 IV STA (01:46)
--- NOTE | 2024-02-25 03:14 | CT Scan Report ---
Exam(s): CTA NECK With Contrast IV Amt: 118 ml optiray 320 EXAM: CT Angiography Neck With Intravenous Contrast CLINICAL HISTORY: Reason for exam: neuro deficit, acute stroke suspected. TECHNIQUE: Routine carotid CT angiography protocol was performed with intravenous contrast. NASCET criteria using the distal ICAs for comparison were used for evaluation of stenoses. CTDI is 14.57 mGy and DLP is 740.26 mGy-cm. Automated exposure control was utilized for the study. A dose lowering technique was utilized adhering to the principles of ALARA. MIP reconstructed images were created and reviewed. CONTRAST: Patient received 118 ml optiray 320 of IV contrast COMPARISON: None. FINDINGS: This study is limited secondary to motion artifact. VASCULATURE: Right common carotid artery: Unremarkable. No occlusion or significant stenosis. No dissection. Right internal carotid artery: Unremarkable. Extracranial segment is patent with no occlusion or significant stenosis. No dissection. Right external carotid artery: Unremarkable. No occlusion. Right vertebral artery: Unremarkable. No occlusion or significant stenosis. No dissection. Left common carotid artery: Unremarkable. No occlusion or significant stenosis. No dissection. Left internal carotid artery: Unremarkable. Extracranial segment is patent with no occlusion or significant stenosis. No dissection. Left external carotid artery: Unremarkable. No occlusion. Left vertebral artery: Unremarkable. No occlusion or significant stenosis. No dissection. NECK: Bones/joints: Unremarkable. No acute fracture. Soft tissues: Unremarkable. Lung apices: Bronchitis with pneumonitis and large bilateral pleural effusions. CAROTID STENOSIS REFERENCE USING NASCET CRITERIA: % ICA stenosis = (1 - narrowest ICA diameter/diameter of distal cervical ICA) x 100. Mild - <50% stenosis. Moderate - 50-69% stenosis. Severe - 70-94% stenosis. Near occlusion - 95-99% stenosis. Occluded - 100% stenosis. IMPRESSION: Negative CTA neck. Electronically signed by: Elizabeth Andrade MD 02/25/24 03:13 AM
--- NOTE | 2024-02-25 03:16 | CT Scan Report ---
Exam(s): CTA HEAD With Contrast IV Amt: 118 ml optiray 320 EXAM: CT Angiography Head With Intravenous Contrast CLINICAL HISTORY: Reason for exam: neuro deficit, acute stroke suspected. TECHNIQUE: Axial computed tomographic angiography images of the head with intravenous contrast. CTDI is 14.25 mGy and DLP is 7.12 mGy-cm. Automated exposure control was utilized for the study. A dose lowering technique was utilized adhering to the principles of ALARA. MIP reconstructed images were created and reviewed. CONTRAST: Patient received 118 ml optiray 320 of IV contrast COMPARISON: No relevant prior studies available. FINDINGS: The dural venous sinuses are patent. Right internal carotid artery: No acute findings. Intracranial segment is patent with no significant stenosis. No aneurysm. Right anterior cerebral artery: Unremarkable. No occlusion or significant stenosis. No aneurysm. Right middle cerebral artery: Unremarkable. No occlusion or significant stenosis. No aneurysm. Right posterior cerebral artery: Unremarkable. No occlusion or significant stenosis. No aneurysm. Right vertebral artery: Unremarkable as visualized. Left internal carotid artery: No acute findings. Intracranial segment is patent with no significant stenosis. No aneurysm. Left anterior cerebral artery: Unremarkable. No occlusion or significant stenosis. No aneurysm. Left middle cerebral artery: Unremarkable. No occlusion or significant stenosis. No aneurysm. Left posterior cerebral artery: Unremarkable. No occlusion or significant stenosis. No aneurysm. Left vertebral artery: Unremarkable as visualized. Basilar artery: Unremarkable. No occlusion or significant stenosis. No aneurysm. IMPRESSION: Negative CT angiogram of the head. Electronically signed by: Elizabeth Andrade MD 02/25/24 03:16 AM
[2024-02-25] MEDS: HYDROmorphone INJ 0.5 MG/0.5 ML SYR IV PRN (04:39)
[2024-02-25] MEDS: LEVOTHYROXINE SODIUM 100 MCG TABLET PO SCH (05:20)
[2024-02-25 07:27] LABS: INR 1.3 (0.9-1.1); Partial Thromboplastin Ratio 1.2; Partial Thromboplastin Time 32 Seconds (21-31); Prothrombin Time 13.5 Seconds (9.0-12.0)
[2024-02-25 07:34] LABS: Anion Gap 8 (3-11); BUN Creatinine Ratio 39.3 (10-20); Blood Urea Nitrogen 11 mg/dl (6-23); Calcium 7.9 mg/dl (8.6-10.3); Carbon Dioxide 27 mmol/L (21-32); Chloride 102 mmol/L (98-107); Creatinine Clr Calc Pharmacy 158.8 ml/min; Glucose 120 mg/dl (70-99(Fasting)); Potassium 3.5 mmol/L (3.5-5.1); Sodium 137 mmol/L (136-145)
[2024-02-25 07:35] LABS: Alanine Aminotransferase < 3 U/L (7-52); Albumin Globulin Ratio 1.2 (0.9-2); Albumin Level 2.7 gm/dl (3.4-5.0); Alkaline Phosphatase 90 U/L (34-104); Aspartate Aminotransferase 10 U/L (13-39); Bilirubin,Total 0.5 mg/dl (0.2-1.0); Globulin 2.2 gm/dl (2.5-4.0); Total Protein 4.9 gm/dl (6.0-8.3)
[2024-02-25 07:51] LABS: Basophils # (auto) 0.03 K/uL (0.00-0.20); Basophils % (auto) 0.4 %; Eosinophils # (auto) 0.13 K/uL (0.00-0.50); Eosinophils % (auto) 1.6 %; Hematocrit (blood only) 27.8 % (37.0-47.0); Hemoglobin 8.3 g/dl (12.0-16.0); Immature Granulocytes # (auto) 0.04 K/uL (0.01-0.20); Immature Granulocytes % (auto) 0.5 %; Lymphocytes # (auto) 0.47 K/uL (1.20-3.40); Lymphocytes % (auto) 5.8 %; Mean Corpuscular Hemoglobin 26.6 pg (25.0-34.0); Mean Corpuscular Hgb Conc 29.9 g/dL (32.0-36.0); Mean Corpuscular Volume 89.1 fL (80.0-100.0); Monocytes # (auto) 0.83 K/uL (0.11-0.59); Monocytes % (auto) 10.3 %; Neutrophils # (auto) 6.57 K/uL (1.40-6.50); Neutrophils % (auto) 81.4 %; Platelet Count 92 K/uL (130-400); RDW Coefficient of Variation 17.4 % (11.5-14.5); RDW Standard Deviation 56.1 fL (36.4-46.3); Red Blood Count 3.12 M/uL (4.20-5.40); White Blood Count 8.07 K/ul (4.8-10.8)
--- NOTE | 2024-02-25 08:34 | Hospitalist Progress Note ---
Date of Service February 25, 2024 Assessment & Plan (1) Multifocal pneumonia: Plan: Presented with acute AMS in setting of recent completion of IV antibiotics for MSSA bacteremia at [facility]. On admission, daughter expressed concern about patient receiving too many narcotic medications while at rehab. Aspiration PNA/Multifocal PNA / Large Pleural Effusions / Secondary Immunocompromise a/w Chemotherapy - Patient only oriented to self at this time, possible infectious encephalopathy - No hx of CHF, prior EF 65-70% 01/13/24 - Active metastatic breast cancer ongoing chemotherapy w/ [facility] (Dr. De Luna) - CXR w/ pulmonary vascular congestion with mild interstitial edema, small pleural effusions with dependent consolidation - Chest CTA: No pulmonary embolism. Dependent airspace consolidations, concerning for multilobar pneumonia/aspiration. Large bilateral pleural effusions. - Nasal MRSA swab negative - Speech evaluated and recommends soft bite sized diet and thin liquids, aspiration precautions, mouth care Qshift > May need a swallow study, but not appropriate clinically at this time - speech will continue to follow - Continue IV Zosyn 4.5g Q6h for aspiration/multifocal pneumonia - Tylenol PRN for fever, Zofran PRN for nausea - O2 remains stable on room air (2) Altered mental status: Plan: Stroke Evaluation - 12-24 hours of intermittent 'word-salad' and agitation w/o additional focal neurological deficits prior to admission. Did require PO Zyprexa in ED on admission due to agitation. 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 - EKG paced, no acute change form prior - Continue inpatient neuro checks Recurrent Urinary Tract Infections - No dysuria, frequency, suprapubic pain noted - Urinalysis largely unremarkable, trace leuks w/o bacteria or nitrites - Will defer culture at this time (3) MSSA bacteremia: Plan: Recent MSSA Bacteremia, completed 6 week course of IV Cefazolin 2g Q8H on 02/24/24 - Previous port removed with planned replacement (4) Breast cancer: Plan: Metastatic breast cancer to liver - Localized breast cancer diagnosed 2015 - Metastatic breast cancer with hepatic lesion, ER 100%, diagnosed March 2020 - Follows with Dr. De Luna at [facility] Plan Discussed case with speech Attempted to update daughter via phone call - no answer, left voicemail Ordered PT/OT Chronic Conditions: - AFib on Eliquis - no evidence of bleeding on CT Head, continu Eliquis - Tachy-Darren Syndrome - ongoing pacer - HLD - continue statin - Urinary retention? - ongoing Doxazosin - Depression - continue duloxetine - DM2 - A1c well controlled w/ glargine 7 units HS, BSG checks ordered ACHS - Hypothyroidism - continue levothyroxine. TSH elevated (improved compared to prior), but could be inflammatory response given acute infection. Recommend f/u with PCP after discharge. - GERD - continue pantoprazole - Anemia - noted 2/2 chemotherapy, stable Diet: NPO pending dysphagia screen DVT: Eliquis CODE STATUS: Full code Admission and Anticipated Discharge Date Admission Date: February 24, 2024 Subjective Patient seen and evaluated at bedside. She is only oriented to self. She was becoming frustrated due to stuttering while she spoke. I encouraged her to take her time, and stuttering resolved after she became less anxious. We did discuss her imaging on admission, and I informed her that she has aspiration/multifocal pneumonia for which she is receiving an IV antibiotic. She denied any acute complaints or concerns at this time. Physical Exam Physical Exam: General: No acute distress, nondiaphoretic, well-developed, well-nourished. Skin: The skin was without rashes, erythema, edema, or bruising. Cardiac: Regular rate and rhythm without murmurs gallops or rubs. Pulm: Dullness at bases bilaterally but otherwise clear to auscultation, no wheezing. No respiratory distress. 91% on room air. Abdominal: Soft, nontender, nondistended. Bowel sounds present. Neuro: A&O x1, self only. No focal neurological deficits. Results & Data Results & Data Vital Signs (Past 12 Hours) Vital Signs Temp Pulse Pulse Pulse Resp BP BP 02/25/24 08:05 60 02/25/24 07:55 98.2 F 59 L 16 02/25/24 04:00 98.1 F 60 18 02/25/24 00:37 02/25/24 00:37 97.5 F L 61 18 181/61 H 02/24/24 23:00 18 175/84 H 02/24/24 22:30 18 176/83 H 02/24/24 22:12 02/24/24 22:00 20 183/76 H 02/24/24 21:00 60 18 166/68 H 02/24/24 20:30 60 20 184/79 H 02/24/24 20:30 184/79 H BP Pulse Ox O2 Del Method 02/25/24 08:05 02/25/24 07:55 172/70 H 94 Room Air 02/25/24 04:00 152/85 H 97 Room Air 02/25/24 00:37 Room Air 02/25/24 00:37 98 Room Air 02/24/24 23:00 92 02/24/24 22:30 93 02/24/24 22:12 94 02/24/24 22:00 94 02/24/24 21:00 95 02/24/24 20:30 95 02/24/24 20:30 95 Laboratory Results Reviewed CBC Reviewed coags Reviewed CMP PG Care Time/CCT Total # of Minutes Spent Total Time Spent with Patient: Total time spent is greater than 50% in coordination of care (as documented) at patient's floor/unit and/or counseling patient: Coding Level of Care Code 74785 SUB INP/OBS CARE 3/50MIN Diagnoses Multifocal pneumonia J18.9 Altered mental status R41.82 MSSA bacteremia R78.81; B95.61 Breast cancer C50.919
[2024-02-25] MEDS ORDERED: PANTOprazole 40 MG TAB PO SCH (09:00)
[2024-02-25] MEDS: PIPERACILLIN/TAZOBACTAM 4.5 GM/100 ML BAG IV SCH (09:09)
[2024-02-25] MEDS: TROLAMINE SALICYLATE 10% CRM 255 APPLN/85 GM TUBE EXT SCH (09:09)
[2024-02-25] MEDS: LIDOCAINE 5% 1 PATCH TD SCH (09:10)
[2024-02-25] MEDS: DOXAZosin MESYLATE TAB 2 MG TAB PO SCH (09:10)
[2024-02-25] MEDS: DULoxetine HCL 60 MG CAP PO SCH (09:10)
[2024-02-25] MEDS: TOBRAMYCIN SULF 0.3% OP SOLN 5 ML BTL OP SCH (09:10)
[2024-02-25] MEDS: POLYETHYLENE (MIRALAX) 17 GM PACK PO SCH (09:14)
[2024-02-25] MEDS: ACETAMINOPHEN 500 MG TAB PO PRN (09:14)
[2024-02-25] MEDS: INFLUENZA VACC TS2024-25(65y+)/PF (IIV3) 0.5mL Syr IM ONE (12:17)
[2024-02-25] MEDS: oxyCODONE HCL IR 5 MG TAB (IMMEDIATE RELEASE) PO PRN (12:17)
[2024-02-25] MEDS: PANTOprazole 40 MG in SYRINGE 0 ML IV SCH (12:18)
[2024-02-25] MEDS: LANTUS PER UNIT CHARGE SQ SCH (20:02)
[2024-02-25] MEDS ORDERED: ATORVASTATIN 40 MG TAB PO SCH (21:00)
[2024-02-25] MEDS: NYSTATIN POWDER 15GM BTL EXT SCH (21:50)
[2024-02-25] MEDS: MELATONIN 3 MG TAB PO PRN (23:24)
--- NOTE | 2024-02-26 01:37 | Billing Data ---
Date of Service February 26, 2024 Coding Level of Care Code 67920 INT INP/OBS CARE
--- NOTE | 2024-02-26 08:50 | Hospitalist Progress Note ---
Date of Service February 26, 2024 Assessment & Plan (1) Multifocal pneumonia: Plan: Presented with acute AMS in setting of recent completion of IV antibiotics for MSSA bacteremia at [facility]. On admission, daughter expressed concern about patient receiving too many narcotic medications while at rehab. Aspiration PNA/Multifocal PNA / Large Pleural Effusions / Secondary Immunocompromise a/w Chemotherapy - Patient only oriented to self at this time, possible infectious encephalopathy - No hx of CHF, prior EF 65-70% 01/13/24 - Active metastatic breast cancer ongoing chemotherapy w/ [facility] (Dr. De Luna) - CXR w/ pulmonary vascular congestion with mild interstitial edema, small pleural effusions with dependent consolidation - Chest CTA: No pulmonary embolism. Dependent airspace consolidations, concerning for multilobar pneumonia/aspiration. Large bilateral pleural effusions. - Nasal MRSA swab positive > Only ~30% positive predictive value. Given patient remains afebrile and non-hypoxic on room air, reasonable to defer MRSA coverage at this time > If she fails to improve clinically or begins to deteriorate (fever, hypoxic, etc.), can add MRSA coverage with Linezolid or Doxycycline - Speech evaluated and recommends soft bite sized diet and thin liquids, aspiration precautions, mouth care Qshift > May need a swallow study, but not appropriate clinically at this time - speech will continue to follow - PT/OT recommending SNF rehab - Continue IV Zosyn 4.5g Q6h for aspiration/multifocal pneumonia - Tylenol PRN for fever, Zofran PRN for nausea - O2 remains stable on room air (2) Altered mental status: Plan: Stroke Evaluation - 12-24 hours of intermittent 'word-salad' and agitation w/o additional focal neurological deficits prior to admission. Did require PO Zyprexa in ED on admission due to agitation. 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 - EKG paced, no acute change form prior - Continue inpatient neuro checks Recurrent Urinary Tract Infections - No dysuria, frequency, suprapubic pain noted - Urinalysis largely unremarkable, trace leuks w/o bacteria or nitrites - Will defer culture at this time (3) MSSA bacteremia: Plan: Recent MSSA Bacteremia, completed 6 week course of IV Cefazolin 2g Q8H on 02/24/24 - Previous port removed with planned replacement (4) Breast cancer: Plan: Metastatic breast cancer to liver - Localized breast cancer diagnosed 2015 - Metastatic breast cancer with hepatic lesion, ER 100%, diagnosed March 2020 - Follows with Dr. De Luna at [facility] Plan Discussed case with pharmacy Reviewed PT/OT evals Chronic Conditions: - AFib on Eliquis - no evidence of bleeding on CT Head, continue Eliquis - Tachy-Darren Syndrome - ongoing pacer - HLD - continue statin - Urinary retention? - ongoing Doxazosin - Depression - continue duloxetine - DM2 - A1c well controlled w/ glargine 7 units HS, BSG checks ordered ACHS - Hypothyroidism - continue levothyroxine. TSH elevated (improved compared to prior), but could be inflammatory response given acute infection. Recommend f/u with PCP after discharge. - GERD - continue pantoprazole - Anemia - noted 2/2 chemotherapy, stable Diet: NPO pending dysphagia screen DVT: Eliquis CODE STATUS: Full code Admission and Anticipated Discharge Date Admission Date: February 24, 2024 Subjective Patient seen and evaluated at bedside. She reports that she feels fine today, but is "upset" because she "did lousy" working with therapy today. She had some nausea and headache earlier, which are both relieved at this time. She denies any shortness of breath, difficulty breathing, cough, or pain. She notes that her appetite is diminished but that is her baseline. No additional concerns or complaints at this time. Physical Exam Physical Exam: General: No acute distress, nondiaphoretic, well-developed, well-nourished. Skin: The skin was without rashes, erythema, edema, or bruising. Cardiac: Regular rate and rhythm without murmurs gallops or rubs. Pulm: Dullness at bases bilaterally but otherwise clear to auscultation, no wheezing. No respiratory distress. 95% on room air. Abdominal: Soft, nontender, nondistended. Bowel sounds present. Neuro: A&O x1, self only. No focal neurological deficits. Results & Data Results & Data Vital Signs (Past 12 Hours) Vital Signs Temp Pulse Pulse Resp BP BP Pulse Ox 02/26/24 08:01 187/73 H 02/26/24 03:21 74 146/68 H 02/26/24 03:07 97.9 F 60 18 185/72 H 98 02/25/24 22:31 97.8 F 60 18 136/63 96 02/25/24 21:35 60 O2 Del Method 02/26/24 08:01 02/26/24 03:21 02/26/24 03:07 Room Air 02/25/24 22:31 Room Air 02/25/24 21:35 Blood pressures may be inaccurate as the cuff either must go on her forearm or leg, as she has a PICC line in one arm and a limb restriction secondary to s/p mastectomy in other arm Laboratory Results Reviewed CBC Reviewed BMP PG Care Time/CCT Total # of Minutes Spent Total Time Spent with Patient: Total time spent is greater than 50% in coordination of care (as documented) at patient's floor/unit and/or counseling patient: Coding Level of Care Code 96857 SUB INP/OBS CARE 3/50MIN Diagnoses Multifocal pneumonia J18.9 Altered mental status R41.82 MSSA bacteremia R78.81; B95.61 Breast cancer C50.919
[2024-02-26] MEDS: ONDANSETRON INJ 2 MG/ML 2 ML VIAL IV PRN (09:30)
[2024-02-26 13:06] LABS: BUN Creatinine Ratio 29.7 (10-20); Calcium 7.9 mg/dl (8.6-10.3); Creatinine Clr Calc Pharmacy 119.7 ml/min; Potassium 3.7 mmol/L (3.5-5.1)
[2024-02-26 13:33] LABS: Hematocrit (blood only) 24.9 % (37.0-47.0); Hemoglobin 7.5 g/dl (12.0-16.0); Mean Corpuscular Hemoglobin 26.6 pg (25.0-34.0); Mean Corpuscular Hgb Conc 30.1 g/dL (32.0-36.0); Mean Corpuscular Volume 88.3 fL (80.0-100.0); Platelet Count 90 K/uL (130-400); RDW Coefficient of Variation 17.2 % (11.5-14.5); RDW Standard Deviation 55.7 fL (36.4-46.3); Red Blood Count 2.82 M/uL (4.20-5.40); White Blood Count 6.39 K/ul (4.8-10.8)
[2024-02-27] MEDS ORDERED: Nursing to Pharmacy Communication SCH (01:15)
--- NOTE | 2024-02-27 08:48 | Hospitalist Progress Note ---
Date of Service February 27, 2024 Assessment & Plan (1) Multifocal pneumonia: Plan: Presented with acute AMS in setting of recent completion of IV antibiotics for MSSA bacteremia at [facility]. On admission, daughter expressed concern about patient receiving too many narcotic medications while at rehab. Aspiration PNA/Multifocal PNA / Large Pleural Effusions / Secondary Immunocompromise a/w Chemotherapy - Patient only oriented to self at this time, possible infectious encephalopathy -- Metabolic encephalopathy due to aspiration pneumonia - No hx of CHF, prior EF 65-70% 01/13/24 - Active metastatic breast cancer ongoing chemotherapy w/ [facility] (Dr. De Luna) - CXR w/ pulmonary vascular congestion with mild interstitial edema, small pleural effusions with dependent consolidation - Chest CTA: No pulmonary embolism. Dependent airspace consolidations, concerning for multilobar pneumonia/aspiration. Large bilateral pleural effusions. - Nasal MRSA swab positive > Only ~30% positive predictive value. Given patient remains afebrile and non-hypoxic on room air, reasonable to defer MRSA coverage at this time > If she fails to improve clinically or begins to deteriorate (fever, hypoxic, etc.), can add MRSA coverage with Linezolid or Doxycycline - Speech evaluated and recommends soft bite sized diet and thin liquids, aspiration precautions, mouth care Qshift > May need a swallow study, but not appropriate clinically at this time - speech will continue to follow - PT/OT recommending SNF rehab - Transitioned to Augmentin from Zosyn on 02/26, last dose evening of 03/02 - Tylenol PRN for fever, Zofran PRN for nausea - O2 remains stable on room air (2) Altered mental status: Plan: Stroke Evaluation - 12-24 hours of intermittent 'word-salad' and agitation w/o additional focal neurological deficits prior to admission. Did require PO Zyprexa in ED on admission due to agitation. 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 - EKG paced, no acute change form prior - Continue inpatient neuro checks Recurrent Urinary Tract Infections - No dysuria, frequency, suprapubic pain noted on admission - Urinalysis largely unremarkable, trace leuks w/o bacteria or nitrites - Patient reported dysuria on 02/26 -- UA with reflex culture ordered (3) MSSA bacteremia: Plan: Recent MSSA Bacteremia, completed 6 week course of IV Cefazolin 2g Q8H on 02/24/24 - Previous port removed with planned replacement (4) Breast cancer: Plan: Metastatic breast cancer to liver - Localized breast cancer diagnosed 2015 - Metastatic breast cancer with hepatic lesion, ER 100%, diagnosed March 2020 - Chronic anemia in the setting of cancer treatments - Follows with Dr. De Luna at [facility] Plan Updated daughter at bedside Discussed case with pharmacy Transition from Zosyn to Augmentin Ordered UA/reflex urine culture Chronic Conditions: - AFib on Eliquis - no evidence of bleeding on CT Head, continue Eliquis - Tachy-Darren Syndrome - ongoing pacer - HLD - continue statin - Urinary retention? - ongoing Doxazosin - Depression - continue duloxetine - DM2 - A1c well controlled w/ glargine 7 units HS, BSG checks ordered ACHS - Hypothyroidism - continue levothyroxine. TSH elevated (improved compared to prior), but could be inflammatory response given acute infection. Recommend f/u with PCP after discharge. - GERD - continue pantoprazole - Anemia - noted 2/2 chemotherapy, stable Diet: NPO pending dysphagia screen DVT: Eliquis CODE STATUS: Full code Admission and Anticipated Discharge Date Admission Date: February 24, 2024 Subjective Patient seen and evaluated at bedside with her daughter present. Patient reports that she is feeling well overall. Denies any shortness of breath, cough, nausea, or pain. She reports that she had a headache upon waking up this morning with associated neck pain. Suspect this may be due to her positioning in bed, as she easily slumped over to her right side. We discussed using extra pillows for support, asked nursing to reposition patient more upright. Patient notes that she continues to have generalized weakness. We discussed switching her antibiotics from Zosyn to Augmentin today. No additional complaints or concerns at this time. Physical Exam Physical Exam: General: No acute distress, nondiaphoretic, well-developed, well-nourished. Skin: The skin was without rashes, erythema, edema, or bruising. Cardiac: Regular rate and rhythm without murmurs gallops or rubs. Pulm: Dullness at bases bilaterally but otherwise clear to auscultation, no wheezing. No respiratory distress. 95% on room air. Abdominal: Soft, nontender, nondistended. Bowel sounds present. Neuro: A&O x1, self only. No focal neurological deficits. Results & Data Results & Data Vital Signs (Past 12 Hours) Vital Signs Temp Pulse Pulse Resp BP BP BP 02/27/24 08:09 97.8 F 60 16 191/73 H 02/27/24 03:15 97.7 F 60 18 169/72 H 02/26/24 22:39 97.7 F 60 18 180/76 H 02/26/24 21:44 60 Pulse Ox O2 Del Method 02/27/24 08:09 94 Room Air 02/27/24 03:15 97 Room Air 02/26/24 22:39 98 Room Air 02/26/24 21:44 PG Care Time/CCT Total # of Minutes Spent Total Time Spent with Patient: Total time spent is greater than 50% in coordination of care (as documented) at patient's floor/unit and/or counseling patient: Coding Level of Care Code 57807 SUB INP/OBS CARE 3/50MIN Diagnoses Multifocal pneumonia J18.9 Altered mental status R41.82 MSSA bacteremia R78.81; B95.61 Breast cancer C50.919
[2024-02-27] MEDS: AMOXICILLIN/CLAVULANATE 875 MG TAB PO SCH (18:25)
[2024-02-28 05:55] LABS: Appearance Urine Clear (Clear); Bacteria Urine Automated None Seen (None Seen); Bilirubin Urine Negative (Negative); Blood Urine Trace (Negative); Cast Urine Automated 0-2 /lpf (0-2); Color Urine Yellow; Epithelial Cell Urine Auto 0-2 /hpf (0-2); Glucose Urine UA Negative (Negative); Ketones Urine Negative (Negative); Leukocyte Esterase Urine Trace (Negative); Nitrite Urine Negative (Negative); Protein Urine Negative (Negative); RBC Urine Automated 0-2 /hpf (0-2); Specific Gravity Urine 1.009 (1.000-1.030); Urobilinogen Urine Negative (Negative); WBC Urine Automated 0-5 /hpf (0-5); pH Urine 6.5 (4.5-7.5)
[2024-02-28 07:40] LABS: Hematocrit (blood only) 24.8 % (37.0-47.0); Hemoglobin 7.4 g/dl (12.0-16.0); White Blood Count 4.42 K/ul (4.8-10.8)
[2024-02-28 07:41] LABS: Mean Corpuscular Hemoglobin 26.6 pg (25.0-34.0); Mean Corpuscular Hgb Conc 29.8 g/dL (32.0-36.0); Mean Corpuscular Volume 89.2 fL (80.0-100.0); RDW Coefficient of Variation 17.7 % (11.5-14.5); RDW Standard Deviation 57.5 fL (36.4-46.3); Red Blood Count 2.78 M/uL (4.20-5.40)
[2024-02-28 07:50] LABS: Platelet Count 87 K/uL (130-400); Platelet Estimate Decreased (Normal)
[2024-02-28 07:51] LABS: BUN Creatinine Ratio 35.5 (10-20); Calcium 7.9 mg/dl (8.6-10.3); Creatinine Clr Calc Pharmacy 143.2 ml/min; Potassium 4.1 mmol/L (3.5-5.1)
--- NOTE | 2024-02-28 13:10 | Hospitalist Progress Note ---
Date of Service February 28, 2024 Assessment & Plan (1) Multifocal pneumonia: Plan: Presented with acute AMS in setting of recent completion of IV antibiotics for MSSA bacteremia at [facility]. On admission, daughter expressed concern about patient receiving too many narcotic medications while at rehab. Aspiration PNA/Multifocal PNA / Large Pleural Effusions / Secondary Immunocompromise a/w Chemotherapy - Patient only oriented to self at this time, possible infectious encephalopathy -- Metabolic encephalopathy due to aspiration pneumonia - No hx of CHF, prior EF 65-70% 01/13/24 - Active metastatic breast cancer ongoing chemotherapy w/ [facility] (Dr. De Luna) - CXR w/ pulmonary vascular congestion with mild interstitial edema, small pleural effusions with dependent consolidation - Chest CTA: No pulmonary embolism. Dependent airspace consolidations, concerning for multilobar pneumonia/aspiration. Large bilateral pleural effusions. - Nasal MRSA swab positive > Only ~30% positive predictive value. Given patient remains afebrile and non-hypoxic on room air, reasonable to defer MRSA coverage at this time > If she fails to improve clinically or begins to deteriorate (fever, hypoxic, etc.), can add MRSA coverage with Linezolid or Doxycycline - Speech re-evaluated and diet upgrade to easy to chew from soft bite sized diet. Continue , aspiration precautions, oral hygiene at least twice daily - PT/OT recommending SNF rehab - Transitioned to Augmentin from Zosyn on 02/26, last dose evening of 03/02 - Tylenol PRN for fever, Zofran PRN for nausea - O2 remains stable on room air (2) Altered mental status: Plan: Stroke Evaluation - 12-24 hours of intermittent 'word-salad' and agitation w/o additional focal neurological deficits prior to admission. Did require PO Zyprexa in ED on admission due to agitation. 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 - EKG paced, no acute change form prior - Continue inpatient neuro checks Recurrent Urinary Tract Infections - No dysuria, frequency, suprapubic pain noted on admission - Urinalysis largely unremarkable, trace leuks w/o bacteria or nitrites - Patient reported dysuria on 02/26 -- UA negative (3) MSSA bacteremia: Plan: Recent MSSA Bacteremia, completed 6 week course of IV Cefazolin 2g Q8H on 02/24/24 - Previous port removed with planned replacement (4) Breast cancer: Plan: Metastatic breast cancer to liver - Localized breast cancer diagnosed 2015 - Metastatic breast cancer with hepatic lesion, ER 100%, diagnosed March 2020 - Chronic anemia in the setting of cancer treatments - Follows with Dr. De Luna at [facility] Plan Discussed case with speech and advanced diet Discussed case with PT Chronic Conditions: - AFib on Eliquis - no evidence of bleeding on CT Head, continue Eliquis - Tachy-Darren Syndrome - ongoing pacer - HLD - continue statin - Urinary retention? - ongoing Doxazosin - Depression - continue duloxetine - DM2 - A1c well controlled w/ glargine 7 units HS, BSG checks ordered ACHS - Hypothyroidism - continue levothyroxine. TSH elevated (improved compared to prior), but could be inflammatory response given acute infection. Recommend f/u with PCP after discharge. - GERD - continue pantoprazole - Anemia - noted 2/2 chemotherapy, stable DVT: Eliquis CODE STATUS: Full code Admission and Anticipated Discharge Date Admission Date: February 24, 2024 Subjective Patient seen and evaluated in bedside chair. She continues to report generalized weakness. Otherwise, no acute complaints or concerns. I asked speech this morning to reevaluate the patient to possibly advance her diet texture, which was advanced to easy to chew. Patient reported she is much happier with this diet. Physical Exam Physical Exam: General: No acute distress, nondiaphoretic, well-developed, well-nourished. Skin: The skin was without rashes, erythema, edema, or bruising. Cardiac: Regular rate and rhythm without murmurs gallops or rubs. Pulm: Dullness at bases bilaterally but otherwise clear to auscultation, no wheezing. No respiratory distress. 96% on room air. Abdominal: Soft, nontender, nondistended. Bowel sounds present. Neuro: A&O x3. No focal neurological deficits. Results & Data Results & Data Vital Signs (Past 12 Hours) Vital Signs Temp Pulse Pulse Resp BP BP Pulse Ox 02/28/24 11:41 97.7 F 61 16 135/70 96 02/28/24 07:54 98.0 F 58 L 16 184/83 H 96 10/12/24 07:41 02/28/24 07:15 64 02/28/24 03:29 98.0 F 60 18 150/67 H 96 O2 Del Method 02/28/24 11:41 Room Air 02/28/24 07:54 Room Air 02/28/24 07:41 Room Air 02/28/24 07:15 02/28/24 03:29 Room Air Laboratory Results Reviewed CBC Reviewed BMP Reviewed UA PG Care Time/CCT Total # of Minutes Spent Total Time Spent with Patient: Total time spent is greater than 50% in coordination of care (as documented) at patient's floor/unit and/or counseling patient: Coding Level of Care Code 13043 SUB INP/OBS CARE 3/50MIN Diagnoses Multifocal pneumonia J18.9 Altered mental status R41.82 MSSA bacteremia R78.81; B95.61 Breast cancer C50.919
--- NOTE | 2024-02-29 10:55 | Hospitalist Progress Note ---
Date of Service February 29, 2024 Assessment & Plan (1) Multifocal pneumonia: Plan: Presented with acute AMS in setting of recent completion of IV antibiotics for MSSA bacteremia at [facility]. On admission, daughter expressed concern about patient receiving too many narcotic medications while at rehab. Aspiration PNA/Multifocal PNA / Large Pleural Effusions / Secondary Immunocompromise a/w Chemotherapy - Patient only oriented to self at this time, possible infectious encephalopathy -- Metabolic encephalopathy due to aspiration pneumonia - No hx of CHF, prior EF 65-70% 01/13/24 - Active metastatic breast cancer ongoing chemotherapy w/ [facility] (Dr. De Luna) - CXR w/ pulmonary vascular congestion with mild interstitial edema, small pleural effusions with dependent consolidation - Chest CTA: No pulmonary embolism. Dependent airspace consolidations, concerning for multilobar pneumonia/aspiration. Large bilateral pleural effusions. - Nasal MRSA swab positive > Only ~30% positive predictive value. Given patient remains afebrile and non-hypoxic on room air, reasonable to defer MRSA coverage at this time > If she fails to improve clinically or begins to deteriorate (fever, hypoxic, etc.), can add MRSA coverage with Linezolid or Doxycycline - Speech re-evaluated and diet upgrade to easy to chew from soft bite sized diet. Continue , aspiration precautions, oral hygiene at least twice daily - PT/OT recommending SNF rehab - Transitioned to Augmentin from Zosyn on 02/26, last dose evening of 03/02 - Tylenol PRN for fever, Zofran PRN for nausea - O2 remains stable on room air (2) Altered mental status: Plan: Stroke Evaluation - 12-24 hours of intermittent 'word-salad' and agitation w/o additional focal neurological deficits prior to admission. Did require PO Zyprexa in ED on admission due to agitation. 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 - EKG paced, no acute change form prior - Continue inpatient neuro checks Recurrent Urinary Tract Infections - No dysuria, frequency, suprapubic pain noted on admission - Urinalysis largely unremarkable, trace leuks w/o bacteria or nitrites - Patient reported dysuria on 02/26 -- UA negative (3) MSSA bacteremia: Plan: Recent MSSA Bacteremia, completed 6 week course of IV Cefazolin 2g Q8H on 02/24/24 - Previous port removed with planned replacement (4) Breast cancer: Plan: Metastatic breast cancer to liver - Localized breast cancer diagnosed 2015 - Metastatic breast cancer with hepatic lesion, ER 100%, diagnosed March 2020 - Chronic anemia in the setting of cancer treatments - Follows with Dr. De Luna at [facility] Plan Chronic Conditions: - AFib on Eliquis - no evidence of bleeding on CT Head, continue Eliquis - Tachy-Darren Syndrome - ongoing pacer - HLD - continue statin - Urinary retention? - ongoing Doxazosin - Depression - continue duloxetine - DM2 - A1c well controlled w/ glargine 7 units HS, BSG checks ordered ACHS - Hypothyroidism - continue levothyroxine. TSH elevated (improved compared to prior), but could be inflammatory response given acute infection. Recommend f/u with PCP after discharge. - GERD - continue pantoprazole - Anemia - noted 2/2 chemotherapy, stable DVT: Eliquis CODE STATUS: Full code Admission and Anticipated Discharge Date Admission Date: February 24, 2024 Supervising Physician Co-Signing Physician Notes chart reviewed and case d/w S Gross PAC. agree w above. Subjective Patient seen and evaluated at bedside. She reports being tired today as she did not sleep well last night. She reports being "uncomfortable" while she u rinates, but cannot offer further description. Her UA has been rechecked multiple times and negative, and she remains on an antibiotic for her pneumonia which I explained to her. We discussed that when she sits in her urine after an episode of incontinence, it can lead to skin irritation which might be the discomfort she is describing. Encouraged her to ring for her RN when she feels that she has to urinate or right after an episode of incontinence. No additional complaints or concerns at this time. Physical Exam Physical Exam: General: No acute distress, nondiaphoretic, well-developed, well-nourished. Skin: The skin was without rashes, erythema, edema, or bruising. Cardiac: Regular rate and rhythm without murmurs gallops or rubs. Pulm: Dullness at bases bilaterally but otherwise clear to auscultation, no wheezing. No respiratory distress. 94% on room air. Abdominal: Soft, nontender, nondistended. Bowel sounds present. Neuro: A&O x3. No focal neurological deficits. Results & Data Results & Data Vital Signs (Past 12 Hours) Vital Signs Temp Pulse Pulse Resp BP BP Pulse Ox 02/29/24 07:38 97.7 F 59 L 18 180/82 H 93 02/29/24 07:28 60 02/29/24 02:32 60 02/28/24 23:48 98.2 F 63 18 159/65 H 96 O2 Del Method 02/29/24 07:38 Room Air 02/29/24 07:28 02/29/24 02:32 02/28/24 23:48 Room Air PG Care Time/CCT Total # of Minutes Spent Total Time Spent with Patient: Total time spent is greater than 50% in coordination of care (as documented) at patient's floor/unit and/or counseling patient: Coding Level of Care Code 70345 SUB INP/OBS CARE 2/35MIN Diagnoses Multifocal pneumonia J18.9 Altered mental status R41.82 MSSA bacteremia R78.81; B95.61 Breast cancer C50.919
--- NOTE | 2024-03-01 14:09 | Hospitalist Progress Note ---
Date of Service March 01, 2024 Assessment & Plan (1) Multifocal pneumonia: Plan: Presented with acute AMS in setting of recent completion of IV antibiotics for MSSA bacteremia at [facility]. On admission, daughter expressed concern about patient receiving too many narcotic medications while at rehab. Aspiration PNA/Multifocal PNA / Large Pleural Effusions / Secondary Immunocompromise a/w Chemotherapy - Patient only oriented to self on arrival, possible infectious encephalopathy -- Metabolic encephalopathy due to aspiration pneumonia - No hx of CHF, prior EF 65-70% 01/13/24 - Active metastatic breast cancer ongoing chemotherapy w/ [facility] (Dr. De Luna) - CXR w/ pulmonary vascular congestion with mild interstitial edema, small pleural effusions with dependent consolidation - Chest CTA: No pulmonary embolism. Dependent airspace consolidations, concerning for multilobar pneumonia/aspiration. Large bilateral pleural effusions. - Nasal MRSA swab positive - Speech re-evaluated and diet upgrade to easy to chew from soft bite sized diet. Continue aspiration precautions, oral hygiene at least twice daily - PT/OT recommending SNF rehab --> pending bed availability at [facility] - Transitioned to Augmentin from Zosyn on 02/26, last dose evening of 03/02 - Tylenol PRN for fever, Zofran PRN for nausea - O2 remains stable on room air Blood pressures have continued to rise with isolated systolic hypertension -- however, have remained well controlled 03/01 - If blood pressures become/remain elevate with systolic hypertension only, con [employer] starting amlodipine 2.5 mg PO once daily initially. May increase dose after 7 to 14 days if further control is needed. - If blood pressures become/remain elevated with both systolic and diastolic hypertension, consider starting losartan 25 mg daily (2) Altered mental status: Plan: Stroke Evaluation - 12-24 hours of intermittent 'word-salad' and agitation w/o additional focal neurological deficits prior to admission. Did require PO Zyprexa in ED on admission due to agitation. 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 - EKG paced, no acute change form prior - Continue inpatient neuro checks Recurrent Urinary Tract Infections - No dysuria, frequency, suprapubic pain noted on admission - Urinalysis largely unremarkable, trace leuks w/o bacteria or nitrites - Patient reported dysuria on 02/26 -- UA negative (3) MSSA bacteremia: Plan: Recent MSSA Bacteremia, completed 6 week course of IV Cefazolin 2g Q8H on 02/24/24 - Previous port removed with planned replacement (4) Breast cancer: Plan: Metastatic breast cancer to liver - Localized breast cancer diagnosed 2015 - Metastatic breast cancer with hepatic lesion, ER 100%, diagnosed March 2020 - Chronic anemia in the setting of cancer treatments - Follows with Dr. De Luna at [facility] Plan Discussed discharge planning with case management Chronic Conditions: - AFib on Eliquis - no evidence of bleeding on CT Head, continue Eliquis - Tachy-Darren Syndrome - ongoing pacer - HLD - continue statin - Urinary retention? - ongoing Doxazosin - Depression - continue duloxetine - DM2 - A1c well controlled w/ glargine 7 units HS, BSG checks ordered ACHS - Hypothyroidism - continue levothyroxine. TSH elevated (improved compared to prior), but could be inflammatory response given acute infection. Recommend f/u with PCP after discharge. - GERD - continue pantoprazole - Anemia - noted 2/2 chemotherapy, stable DVT: Eliquis CODE STATUS: Full code Admission and Anticipated Discharge Date Admission Date: February 24, 2024 Supervising Physician Co-Signing Physician Notes Attending Attestation - Chart reviewed, care plan d/w AZEEM Nicole. I agree w/ the edwards components of her documentation. Finish abx for pneumonia. Large pleural effusions b/l - would start daily lasix or bumex. Tighter BP control. Decompensated hypothyroidism, hypoalbuminemia, and decompensated CHF all likely to blame for effusions/edema. Kris Miranda MD Subjective Patient seen and evaluated in bedside chair while eating lunch. She reports "I am still no damn good." She continues to have difficulty with ambulation per RN and review of PT notes. She denies any respiratory symptoms including difficulty breathing, shortness of breath, or cough. Continue to wait for rehab placement. No additional complaints or concerns at this time. Physical Exam Physical Exam: General: No acute distress, nondiaphoretic, well-developed, well-nourished. Skin: The skin was without rashes, erythema, edema, or bruising. Cardiac: Regular rate and rhythm without murmurs gallops or rubs. Pulm: Dullness at bases bilaterally but otherwise clear to auscultation, no wheezing. No respiratory distress. 97% on room air. Abdominal: Soft, nontender, nondistended. Bowel sounds present. Neuro: A&O x3. No focal neurological deficits. Results & Data Results & Data Vital Signs (Past 12 Hours) Vital Signs Temp Pulse Pulse Resp BP BP Pulse Ox 03/01/24 11:40 98.1 F 62 16 128/86 97 03/01/24 07:50 97.9 F 60 20 131/91 96 03/01/24 07:36 03/01/24 07:17 61 03/01/24 03:07 60 18 179/75 H 95 O2 Del Method 03/01/24 11:40 Room Air 03/01/24 07:50 Room Air 03/01/24 07:36 Room Air 03/01/24 07:17 03/01/24 03:07 Room Air PG Care Time/CCT Total # of Minutes Spent Total Time Spent with Patient: Total time spent is greater than 50% in coordination of care (as documented) at patient's floor/unit and/or counseling patient: Coding Level of Care Code 96512 SUB INP/OBS CARE 2/35MIN Diagnoses Multifocal pneumonia J18.9 Altered mental status R41.82 MSSA bacteremia R78.81; B95.61 Breast cancer C50.919
[2024-03-02 06:38] LABS: Hematocrit (blood only) 24.2 % (37.0-47.0); Hemoglobin 7.6 g/dl (12.0-16.0); Mean Corpuscular Hgb Conc 31.4 g/dL (32.0-36.0); Mean Corpuscular Volume 86.1 fL (80.0-100.0); Platelet Count 119 K/uL (130-400); RDW Coefficient of Variation 18.3 % (11.5-14.5); RDW Standard Deviation 58.3 fL (36.4-46.3); Red Blood Count 2.81 M/uL (4.20-5.40); White Blood Count 4.45 K/ul (4.8-10.8)
[2024-03-02] MEDS: PANTOprazole 40 MG in SYRINGE DAILY IV SCH (07:49)
--- NOTE | 2024-03-02 08:37 | Hospitalist Progress Note ---
Date of Service March 02, 2024 Assessment & Plan (1) Multifocal pneumonia: Plan: Presented with acute AMS in setting of recent completion of IV antibiotics for MSSA bacteremia at [facility]. On admission, daughter expressed concern about patient receiving too many narcotic medications while at rehab. Aspiration PNA/Multifocal PNA / Large Pleural Effusions / Secondary Immunocompromise a/w Chemotherapy - Patient only oriented to self on arrival, possible infectious encephalopathy -- Metabolic encephalopathy due to aspiration pneumonia - No hx of CHF, prior EF 65-70% 01/13/24 - Active metastatic breast cancer ongoing chemotherapy w/ [facility] (Dr. De Luna) - CXR w/ pulmonary vascular congestion with mild interstitial edema, small pleural effusions with dependent consolidation - Chest CTA: No pulmonary embolism. Dependent airspace consolidations, concerning for multilobar pneumonia/aspiration. Large bilateral pleural effusions. - Nasal MRSA swab positive - Speech re-evaluated and diet upgrade to easy to chew from soft bite sized diet. Continue aspiration precautions, oral hygiene at least twice daily - PT/OT recommending SNF rehab --> pending bed availability at [facility] - Transitioned to Augmentin from Zosyn on 02/26, last dose evening of 03/02 - Tylenol PRN for fever, Zofran PRN for nausea - O2 remains stable on room air Blood pressures have continued to rise with isolated systolic hypertension - Started amlodipine 2.5 mg PO daily > Monitor BPs. May increase dose after 7-14 days if further control is neede d (2) Altered mental status: Plan: Stroke Evaluation - 12-24 hours of intermittent 'word-salad' and agitation w/o additional focal neurological deficits prior to admission. Did require PO Zyprexa in ED on admission due to agitation. 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 - EKG paced, no acute change form prior - Continue inpatient neuro checks Recurrent Urinary Tract Infections - No dysuria, frequency, suprapubic pain noted on admission - Urinalysis largely unremarkable, trace leuks w/o bacteria or nitrites - Patient reported dysuria on 02/26 -- UA negative (3) MSSA bacteremia: Plan: Recent MSSA Bacteremia, completed 6 week course of IV Cefazolin 2g Q8H on 02/24/24 - Previous port removed with planned replacement (4) Breast cancer: Plan: Metastatic breast cancer to liver - Localized breast cancer diagnosed 2015 - Metastatic breast cancer with hepatic lesion, ER 100%, diagnosed March 2020 - Chronic anemia in the setting of cancer treatments - Follows with Dr. De Luna at [facility] Plan Started amlodipine Discussed discharge planning with case management -- [facility] cannot offer bed Chronic Conditions: - AFib on Eliquis - no evidence of bleeding on CT Head, continue Eliquis - Tachy-Darren Syndrome - ongoing pacer - HLD - continue statin - Urinary retention? - ongoing Doxazosin - Depression - continue duloxetine - DM2 - A1c well controlled w/ glargine 7 units HS, BSG checks ordered ACHS - Hypothyroidism - continue levothyroxine. TSH elevated (improved compared to prior), but could be inflammatory response given acute infection. Recommend f/u with PCP after discharge. - GERD - continue pantoprazole - Anemia - noted 2/2 chemotherapy, stable DVT: Eliquis CODE STATUS: Full code Admission and Anticipated Discharge Date Admission Date: February 24, 2024 Subjective Patient seen and evaluated bedside. She is very frustrated and upset today because she is "not improving fast enough." I provided emotional support. Informed the patient that I started a new blood pressure medication today. No additional complaints or concerns at this time. Physical Exam Physical Exam: General: No acute distress, nondiaphoretic, well-developed, well-nourished. Skin: The skin was without rashes, erythema, edema, or bruising. Cardiac: Regular rate and rhythm without murmurs gallops or rubs. Pulm: Dullness at bases bilaterally but otherwise clear to auscultation, no wheezing. No respiratory distress. 94% on room air. Abdominal: Soft, nontender, nondistended. Bowel sounds present. Neuro: A&O x3. No focal neurological deficits. Results & Data Results & Data Vital Signs (Past 12 Hours) Vital Signs Temp Pulse Pulse Resp BP BP BP 03/02/24 08:12 98.4 F 62 18 190/79 H 03/02/24 07:46 03/02/24 07:01 61 03/02/24 02:48 97.7 F 60 18 187/70 H 03/01/24 22:37 97.8 F 60 18 173/73 H 03/01/24 22:28 03/01/24 21:54 60 03/01/24 20:54 60 145/44 H 178/75 H Pulse Ox O2 Del Method 03/02/24 08:12 96 Room Air 03/02/24 07:46 Room Air 03/02/24 07:01 03/02/24 02:48 96 Room Air 03/01/24 22:37 95 Room Air 03/01/24 22:28 Room Air 03/01/24 21:54 03/01/24 20:54 Laboratory Results Reviewed CBC PG Care Time/CCT Total # of Minutes Spent Total Time Spent with Patient: Total time spent is greater than 50% in coordination of care (as documented) at patient's floor/unit and/or counseling patient: Coding Level of Care Code 25640 SUB INP/OBS CARE 3/50MIN Diagnoses Multifocal pneumonia J18.9 Altered mental status R41.82 MSSA bacteremia R78.81; B95.61 Breast cancer C50.919
[2024-03-02] MEDS: amLODIPine BESYLATE 5 MG TAB PO SCH (09:17)
[2024-03-03] MEDS: PANTOprazole 40 MG TAB PO SCH (07:25)
--- NOTE | 2024-03-03 11:37 | Hospitalist Progress Note ---
Date of Service March 03, 2024 Assessment & Plan (1) Multifocal pneumonia: Plan: Presented with acute AMS in setting of recent completion of IV antibiotics for MSSA bacteremia at [facility]. On admission, daughter expressed concern about patient receiving too many narcotic medications while at rehab. Aspiration PNA/Multifocal PNA / Large Pleural Effusions / Secondary Immunocompromise a/w Chemotherapy - Patient only oriented to self on arrival, possible infectious encephalopathy -- Metabolic encephalopathy due to aspiration pneumonia - No hx of CHF, prior EF 65-70% 01/13/24 - Active metastatic breast cancer ongoing chemotherapy w/ [facility] (Dr. De Luna) - CXR w/ pulmonary vascular congestion with mild interstitial edema, small pleural effusions with dependent consolidation - Chest CTA: No pulmonary embolism. Dependent airspace consolidations, concerning for multilobar pneumonia/aspiration. Large bilateral pleural effusions. - completed course of zosyn/augmentin. - will give dose of IV lasix now, recheck CXR In AM - Speech re-evaluated and diet upgrade to easy to chew from soft bite sized diet. Continue aspiration precautions, oral hygiene at least twice daily - PT/OT recommending SNF rehab --> pending [facility] pending ONC plans Blood pressures have continued to rise with isolated systolic hypertension - Started amlodipine 2.5 mg PO daily 03/02 > Monitor BPs. May increase dose after 7-14 days if further control is needed Thrombocytopenia - no bleeding - recheck CBC q 3 days (2) Altered mental status: Plan: Stroke Evaluation - 12-24 hours of intermittent 'word-salad' and agitation w/o additional focal neurological deficits prior to admission. Did require PO Zyprexa in ED on admission due to agitation. - Labs: CBC/CMP only remarkable for chronic anemia Troponin negative. Biofire negative TSH elevated, though improved from prior, outpt f/u recommended Hypomagnesemia noted, repleted - Imaging: CT Head negative, CTA Head & Neck negative MRI contraindicated 2/2 pacemaker - EKG paced, no acute change form prior - Continue inpatient neuro checks Recurrent Urinary Tract Infections - No dysuria, frequency, suprapubic pain noted on admission. UA negative - Patient reported dysuria on 02/26 -- UA negative (3) MSSA bacteremia: Plan: Recent MSSA Bacteremia, completed 6 week course of IV Cefazolin 2g Q8H on 10/8/24 - Previous port removed with planned replacement (4) Breast cancer: Plan: Metastatic breast cancer to liver - Localized breast cancer diagnosed 2015 - Metastatic breast cancer with hepatic lesion, ER 100%, diagnosed March 2020 - Chronic anemia in the setting of cancer treatments - Follows with Dr. De Luna at [facility] - message sent 03/03 to see if there is plan for any further treatment, awaiting response Plan Chronic Conditions: - AFib on Eliquis - no evidence of bleeding on CT Head, continue Eliquis - Tachy-Darren Syndrome - ongoing pacer - HLD - continue statin - Urinary retention? - ongoing Doxazosin - Depression - continue duloxetine - DM2 - A1c well controlled w/ glargine 7 units HS, BSG checks ordered ACHS - Hypothyroidism - continue levothyroxine. TSH elevated (improved compared to prior), but could be inflammatory response given acute infection. Recommend f/u with PCP after discharge. - GERD - continue pantoprazole - Anemia - noted 2/2 chemotherapy, stable DVT: Eliquis Dispo: continued inpatient stay, stable for downgrade to medical Admission and Anticipated Discharge Date Admission Date: February 24, 2024 Subjective Patient seen sitting up in bed eating peaches and cottage cheese. She denies any pain or any other acute concerns. Does not enjoy that I am interrupting her snack Tele - paced 60s . Review of Systems Review of Systems: All systems reviewed & are unremarkable except as noted in Subjective Physical Exam Physical Exam: General: No acute distress, nondiaphoretic, well-developed, well-nourished. Skin: The skin was without rashes, erythema, edema, or bruising. Cardiac: Regular rate and rhythm without murmurs gallops or rubs. no LE edema Pulm: clear to auscultation, no wheezing. No respiratory distress. Abdominal: Soft, nontender, nondistended. Neuro: A&O x3. No focal neurological deficits. Results & Data Results & Data Vital Signs (Past 12 Hours) Vital Signs Temp Pulse Pulse Resp BP BP Pulse Ox 03/03/24 10:46 97.5 F L 59 L 18 148/57 H 97 03/03/24 07:28 97.5 F L 59 L 18 161/69 H 93 03/03/24 07:20 03/03/24 06:55 60 03/03/24 02:57 97.8 F 63 18 167/72 H 95 O2 Del Method 03/03/24 10:46 Room Air 03/03/24 07:28 Room Air 03/03/24 07:20 Room Air 03/03/24 06:55 03/03/24 02:57 Room Air PG Care Time/CCT Total # of Minutes Spent Total Time Spent with Patient: Total time spent is greater than 50% in coordination of care (as documented) at patient's floor/unit and/or counseling patient: Coding Level of Care Code 63377 SUB INP/OBS CARE 2/35MIN Diagnoses Multifocal pneumonia J18.9 Altered mental status R41.82 MSSA bacteremia R78.81; B95.61 Breast cancer C50.919
[2024-03-03] MEDS: FUROSEMIDE INJ 20 MG/2 ML VIAL IV ONE (15:52)
[2024-03-04 07:48] LABS: Hematocrit (blood only) 26.2 % (37.0-47.0); Hemoglobin 7.9 g/dl (12.0-16.0); Mean Corpuscular Hemoglobin 26.1 pg (25.0-34.0); Mean Corpuscular Hgb Conc 30.2 g/dL (32.0-36.0); Mean Corpuscular Volume 86.5 fL (80.0-100.0); Mean Platelet Volume 12.2 fL (9.4-12.4); Platelet Count 117 K/uL (130-400); RDW Coefficient of Variation 18.1 % (11.5-14.5); Red Blood Count 3.03 M/uL (4.20-5.40); White Blood Count 4.53 K/ul (4.8-10.8)
[2024-03-04 08:04] LABS: BUN Creatinine Ratio 22.2 (10-20); Calcium 8.8 mg/dl (8.6-10.3); Creatinine Clr Calc Pharmacy 97.8 ml/min; Potassium 4.6 mmol/L (3.5-5.1)
--- NOTE | 2024-03-04 08:09 | XRay Report ---
XR chest 1V portable HISTORY: 74 years-old Female recheck effusions acute shortness of breath with pleural effusions COMPARISON: CTA chest 02/24/2024 TECHNIQUE: AP view of the chest FINDINGS: Cardiac silhouette is enlarged. Dual-lead left subclavian pacer. A right-sided PICC distal tip projec ts over the right atrium. Atherosclerosis of the aorta. No pneumothorax. Pulmonary vascular congestio n with interstitial coarsening. Unchanged moderate layering pleural effusions with bibasilar consolid ation. Left shoulder arthroplasty. Severe right glenohumeral osteoarthritis. IMPRESSION: 1. Cardiomegaly with unchanged interstitial pulmonary edema. 2. Stable moderate layering pleural effusions with bibasilar consolidation/atelectasis. ACT 112: Negative or not required by law. The above report was generated using voice recognition software. It may contain grammatical, syntax o r spelling errors. Electronically signed by: Jeremy Batres M.D. 03/04/2024 8:08 AM
[2024-03-04] MEDS: ATORVASTATIN 40 MG TAB PO SCH (10:05)
--- NOTE | 2024-03-04 15:02 | Hospitalist Progress Note ---
Date of Service March 04, 2024 Assessment & Plan (1) Multifocal pneumonia: Plan: Presented with acute AMS in setting of recent completion of IV antibiotics for MSSA bacteremia at [facility]. On admission, daughter expressed concern about patient receiving too many narcotic medications while at rehab. Aspiration PNA/Multifocal PNA / Large Pleural Effusions / Secondary Immunocompromise a/w Chemotherapy - Patient only oriented to self on arrival, possible infectious encephalopathy -- Metabolic encephalopathy due to aspiration pneumonia - No hx of CHF, prior EF 65-70% 01/13/24 - Active metastatic breast cancer ongoing chemotherapy w/ [facility] (Dr. De Luna) - CXR w/ pulmonary vascular congestion with mild interstitial edema, small pleural effusions with dependent consolidation - Chest CTA: No pulmonary embolism. Dependent airspace consolidations, concerning for multilobar pneumonia/aspiration. Large bilateral pleural effusions. - completed course of zosyn/augmentin. - continued IV diuresis today as repeat CXR showing stable effusions - PT/OT recommending SNF rehab --> case management following Blood pressures have continued to rise with isolated systolic hypertension - Started amlodipine 2.5 mg PO daily 03/02 > Monitor BPs. May increase dose after 7-14 days if further control is needed . (2) Altered mental status: Plan: Stroke Evaluation - 12-24 hours of intermittent 'word-salad' and agitation w/o additional focal neurological deficits prior to admission. Did require PO Zyprexa in ED on admission due to agitation. - Labs: CBC/CMP only remarkable for chronic anemia Troponin negative. Biofire negative TSH elevated, though improved from prior, outpt f/u recommended Hypomagnesemia noted, repleted - Imaging: CT Head negative, CTA Head & Neck negative MRI contraindicated 2/2 pacemaker - EKG paced, no acute change form prior Recurrent Urinary Tract Infections - No dysuria, frequency, suprapubic pain noted on admission. UA negative - Patient reported dysuria on 02/26 -- UA negative (3) MSSA bacteremia: Plan: Recent MSSA Bacteremia, completed 6 week course of IV Cefazolin 2g Q8H on 02/24/24 - Previous port removed with planned replacement (4) Breast cancer: Plan: Metastatic breast cancer to liver - Localized breast cancer diagnosed 2015 - Metastatic breast cancer with hepatic lesion, ER 100%, diagnosed March 2020 - Chronic anemia in the setting of cancer treatments - Follows with Dr. De Luna at [facility] - last treatment Dec 23 - liposomal doxorubicin (missed sept dose) - He plans to continue further treatment, nothing immediate - Pt expressed she is not interested in hospice 03/04. Previously referred to Palliative care outpatient and no showed that appointment (5) Depression: Plan: Switched back to Duloxetine by PCP 08/2023 - PCP notes: She was previously treated with Vortioxetine, Celexa, buspirone, lorazepam. More depressed with chemo. Daughter requesting meds to be changed - I will plan to discuss this with pt tomorrow. Plan Chronic Conditions: - AFib on Eliquis - no evidence of bleeding on CT Head, continue Eliquis - Tachy-Darren Syndrome - ongoing pacer - HLD - continue statin - Urinary retention? - ongoing Doxazosin - DM2 - A1c well controlled w/ glargine 7 units HS, BSG checks ordered ACHS - Hypothyroidism - continue levothyroxine. TSH elevated (improved compared to prior), but could be inflammatory response given acute infection. Recommend f/u with PCP after discharge. - GERD - continue pantoprazole - Anemia - noted 2/2 chemotherapy, stable DVT: Eliquis Dispo: continued inpatient stay, downgraded to medical Daughter updated by phone 03/04 Admission and Anticipated Discharge Date Admission Date: February 24, 2024 Subjective patient seen this morning lying in bed. At first making multiple comments well me and RN in the room that "I do not want anyone to think I am insane "it was unclear of where she got this thought from and she was not able to further characterize it. She made comments like "I just want to be home and spend time with my family" and also "I do not want to suffer" but when I approach the concept of hospice she was very adamant that she did not want this. She does state that she still wants to treat her cancer actively. During my assessment she has no acute concerns. I encouraged her to be working with therapy to get out of bed as that is the only way she is going to be able to return home without being hospice status. Review of Systems Review of Systems: All systems reviewed & are unremarkable except as noted in Subjective Physical Exam Physical Exam: General: No acute distress, nondiaphoretic, well-developed, well-nourished. Skin: The skin was without rashes, erythema, edema, or bruising. Cardiac: Regular rate and rhythm without murmurs gallops or rubs. no LE edema Pulm: Diminished in the bases., no wheezing. No respiratory distress. Abdominal: Soft, nontender, nondistended. Neuro: A&O x3. No focal neurological deficits. Results & Data Results & Data Vital Signs (Past 12 Hours) Vital Signs Temp Pulse Resp BP Pulse Ox O2 Del Method 03/04/24 12:10 Room Air 03/04/24 07:31 98.0 F 60 16 181/82 H 94 Room Air Laboratory Results CBC and chemistry reviewed Diagnostic Findings cxr reviewed PG Care Time/CCT Total # of Minutes Spent Total Time Spent with Patient: Total time spent is greater than 50% in coordination of care (as documented) at patient's floor/unit and/or counseling patient: Coding Level of Care Code 01618 SUB INP/OBS CARE 3/50MIN Diagnoses Multifocal pneumonia J18.9 Altered mental status R41.82 MSSA bacteremia R78.81; B95.61 Breast cancer C50.919 Depression, unspecified depression type F32.9 Depression Type: unspecified (5) Depression Depression Type: unspecified Qualified Code(s): F32.9 - Major depressive disorder, single episode, unspecified
[2024-03-04] MEDS: FUROSEMIDE INJ 20 MG/2 ML VIAL IV ONE (15:42)
--- NOTE | 2024-03-05 11:45 | Hospitalist Progress Note ---
Date of Service March 05, 2024 Assessment & Plan (1) Multifocal pneumonia: Plan: Presented with acute AMS in setting of recent completion of IV antibiotics for MSSA bacteremia at [facility]. On admission, daughter expressed concern about patient receiving too many narcotic medications while at rehab. Aspiration PNA/Multifocal PNA / Large Pleural Effusions / Secondary Immunocompromise a/w Chemotherapy - Patient only oriented to self on arrival, possible infectious encephalopathy -- Metabolic encephalopathy due to aspiration pneumonia - No hx of CHF, prior EF 65-70% 01/13/24 - Active metastatic breast cancer ongoing chemotherapy w/ [facility] (Dr. De Luna) - CXR w/ pulmonary vascular congestion with mild interstitial edema, small pleural effusions with dependent consolidation - Chest CTA: No pulmonary embolism. Dependent airspace consolidations, concerning for multilobar pneumonia/aspiration. Large bilateral pleural effusions. - completed course of zosyn/augmentin. - continued IV diuresis today, repeat CXR showing stable effusions - PT/OT recommending SNF rehab --> case management following Blood pressures have continued to rise with isolated systolic hypertension - Started amlodipine 2.5 mg PO daily 03/02 > Monitor BPs. May increase dose after 7-14 days if further control is needed - BP also improving with diuresis . (2) Altered mental status: Plan: Stroke Evaluation - 12-24 hours of intermittent 'word-salad' and agitation w/o additional focal neurological deficits prior to admission. Did require PO Zyprexa in ED on admission due to agitation. - Labs: CBC/CMP only remarkable for chronic anemia Troponin negative. Biofire negative TSH elevated, though improved from prior, outpt f/u recommended Hypomagnesemia noted, repleted - Imaging: CT Head negative, CTA Head & Neck negative MRI contraindicated 2/2 pacemaker - EKG paced, no acute change form prior Recurrent Urinary Tract Infections - No dysuria, frequency, suprapubic pain noted on admission. UA negative - Patient reported dysuria on 02/26 -- UA negative (3) MSSA bacteremia: Plan: Recent MSSA Bacteremia, completed 6 week course of IV Cefazolin 2g Q8H on 02/24/24 - Previous port removed with planned replacement (4) Breast cancer: Plan: Metastatic breast cancer to liver - Localized breast cancer diagnosed 2015 - Metastatic breast cancer with hepatic lesion, ER 100%, diagnosed March 2020 - Chronic anemia in the setting of cancer treatments - Follows with Dr. De Luna at [facility] - last treatment Dec 23 - liposomal doxorubicin (missed sept dose) - He plans to continue further treatment, nothing immediate - Pt expressed she is not interested in hospice 03/04. Previously referred to Palliative care outpatient and no showed that appointment (5) Depression: Plan: Switched back to Duloxetine by PCP 08/2023 - PCP notes: She was previously treated with Vortioxetine, Celexa, buspirone, lorazepam. More depressed with chemo. Daughter and pt requesting med changed, pt reports being more depressed and emotional and not sleeping well. - plan to decrease cymbalta to 30mg and start remeron 15mg HS, continue to titrate/wean as able Plan Chronic Conditions: - AFib on Eliquis - no evidence of bleeding on CT Head, continue Eliquis - Tachy-Darren Syndrome - ongoing pacer - HLD - continue statin - Urinary retention? - ongoing Doxazosin - DM2 - A1c well controlled w/ glargine 7 units HS, BSG checks ordered ACHS - Hypothyroidism - continue levothyroxine. TSH elevated (improved compared to prior), but could be inflammatory response given acute infection. Recommend f/u with PCP after discharge. - GERD - continue pantoprazole - Anemia - noted 2/2 chemotherapy, stable DVT: Eliquis Dispo: continued inpatient stay, downgraded to medical Daughter updated by phone 03/04 Admission and Anticipated Discharge Date Admission Date: February 24, 2024 Subjective Patient seen sitting up in bed - initially had family member at bedside and asked me to come back after they had left. Faith agrees that her Cymbalta is not working as well as it used to. She is agreeable to try something different. States that she has not been sleeping well. Frustrated about not being home but realizes she cannot go home without being able to walk Review of Systems Review of Systems: All systems reviewed & are unremarkable except as noted in Subjective Physical Exam Physical Exam: General: No acute distress, nondiaphoretic, well-developed, well-nourished. Sitting up in bed, eating snacks. Skin: The skin was without rashes, erythema, edema, or bruising. Cardiac: Regular rate and rhythm without murmurs gallops or rubs. no LE edema Pulm: Diminished in the bases., no wheezing. No respiratory distress. Abdominal: Soft, nontender, nondistended. Neuro: A&O x3. No focal neurological deficits. labile emotions. Tearful at times . Results & Data Results & Data Vital Signs (Past 12 Hours) Vital Signs Temp Pulse Resp BP Pulse Ox O2 Del Method 03/05/24 11:09 97.9 F 60 18 140/62 96 Room Air 03/05/24 10:55 Room Air 03/05/24 07:56 98.3 F 61 18 168/66 H 99 Room Air 03/04/24 23:46 Room Air Laboratory Results kidney function reviewed PG Care Time/CCT Total # of Minutes Spent Total Time Spent with Patient: Total time spent is greater than 50% in coordination of care (as documented) at patient's floor/unit and/or counseling patient: Coding Level of Care Code 80163 SUB INP/OBS CARE 2/35MIN Diagnoses Multifocal pneumonia J18.9 Altered mental status R41.82 MSSA bacteremia R78.81; B95.61 Breast cancer C50.919 Depression, unspecified depression type F32.9 Depression Type: unspecified (5) Depression Depression Type: unspecified Qualified Code(s): F32.9 - Major depressive disorder, single episode, unspecified
[2024-03-05] MEDS: FUROSEMIDE INJ 20 MG/2 ML VIAL IV ONE (12:13)
[2024-03-05] MEDS: MIRTAZAPINE TAB 15 MG TAB PO SCH (22:32)
[2024-03-06 06:52] LABS: BUN Creatinine Ratio 34.9 (10-20); Creatinine Clr Calc Pharmacy 96.2 ml/min
[2024-03-06] MEDS: DULoxetine HCL 30 MG CAP PO SCH (10:59)
--- NOTE | 2024-03-06 13:25 | XRay Report ---
XR KUB/Abdomen 1 view CLINICAL HISTORY: no BM x 3 days, abdominal pain TECHNIQUE: 1 view of the abdomen was obtained. Comparison: None available at the time of this dictation. FINDINGS: Lung bases are unremarkable. Posterior fixation hardware is seen in the lumbar spine and there are bi lateral hip arthroplasties. The bowel gas pattern is nonobstructive. A moderate amount of stool is no alicia within the large bowel. IMPRESSION: Moderate stool burden without evidence of fecal impaction. ACT 112: Negative or not required by law. Electronically signed by: Emre Riojas M.D. 03/06/2024 1:23 PM
--- NOTE | 2024-03-06 15:31 | Hospitalist Progress Note ---
Date of Service March 06, 2024 Assessment & Plan (1) Multifocal pneumonia: Plan: Presented with acute AMS in setting of recent completion of IV antibiotics for MSSA bacteremia at [facility]. On admission, daughter expressed concern about patient receiving too many narcotic medications while at rehab. Aspiration PNA/Multifocal PNA / Large Pleural Effusions / Secondary Immunocompromise a/w Chemotherapy - Patient only oriented to self on arrival, possible infectious encephalopathy -- Metabolic encephalopathy due to aspiration pneumonia - No hx of CHF, prior EF 65-70% 01/13/24 - Active metastatic breast cancer ongoing chemotherapy w/ [facility] (Dr. De Luna) - CXR w/ pulmonary vascular congestion with mild interstitial edema, small pleural effusions with dependent consolidation - Chest CTA: No pulmonary embolism. Dependent airspace consolidations, concerning for multilobar pneumonia/aspiration. Large bilateral pleural effusions. - completed course of zosyn/augmentin. - repeat CXR 03/05 demonstrated stable effusions -will reassess in AM whether further IV diuresis is required. - PT/OT recommending SNF rehab --> case management following Blood pressures have continued to rise with isolated systolic hypertension - Started amlodipine 2.5 mg PO daily 03/02 > Monitor BPs. May increase dose after 7-14 days if further control is needed - BP also improving with diuresis . (2) Altered mental status: Plan: Stroke Evaluation - 12-24 hours of intermittent 'word-salad' and agitation w/o additional focal neurological deficits prior to admission. Did require PO Zyprexa in ED on admission due to agitation. - Labs: CBC/CMP only remarkable for chronic anemia Troponin negative. Biofire negative TSH elevated, though improved from prior, outpt f/u recommended Hypomagnesemia noted, repleted - Imaging: CT Head negative, CTA Head & Neck negative MRI contraindicated 2/2 pacemaker - EKG paced, no acute change form prior Recurrent Urinary Tract Infections - No dysuria, frequency, suprapubic pain noted on admission. UA negative - Patient reported dysuria on 02/26 -- UA negative (3) MSSA bacteremia: Plan: Recent MSSA Bacteremia, completed 6 week course of IV Cefazolin 2g Q8H on 02/24/24 - Previous port removed with planned replacement (4) Breast cancer: Plan: Metastatic breast cancer to liver - Localized breast cancer diagnosed 2015 - Metastatic breast cancer with hepatic lesion, ER 100%, diagnosed March 2020 - Chronic anemia in the setting of cancer treatments - Follows with Dr. De Luna at [facility] - last treatment Dec 23 - liposomal doxorubicin (missed jan dose) - He plans to continue further treatment, nothing immediate - Pt expressed she is not interested in hospice 03/04. Previously referred to Palliative care outpatient and no showed that appointment (5) Depression: Plan: Switched back to Duloxetine by PCP 08/2023 - PCP notes: She was previously treated with Vortioxetine, Celexa, buspirone, lorazepam. More depressed with chemo. Daughter and pt requesting med changed, pt reports being more depressed and emotional and not sleeping well. - plan to decrease cymbalta to 30mg and start remeron 15mg HS, continue to titrate/wean as able - patient mental status declined following initiation of remeron 15mg HS. discontinued medication. consulted psychiatry to assist in antidepressants for patient as she has tried and not tolerated multiple medications. Appreciate their recommendations. Plan Chronic Conditions: - AFib on Eliquis - no evidence of bleeding on CT Head, continue Eliquis - Tachy-Darren Syndrome - ongoing pacer - HLD - continue statin - Urinary retention? - ongoing Doxazosin - DM2 - A1c well controlled w/ glargine 7 units HS, BSG checks ordered ACHS - Hypothyroidism - continue levothyroxine. TSH elevated (improved compared to prior), but could be inflammatory response given acute infection. Recommend f/u with PCP after discharge. - GERD - continue pantoprazole - Anemia - noted 2/2 chemotherapy, stable DVT: Eliquis Dispo: continued inpatient stay, downgraded to medical Admission and Anticipated Discharge Date Admission Date: February 24, 2024 Subjective patient seen and examined this morning with nurse at bedside. patient oriented to self. patient tearful at time of encounter. she states she doesn't feel good but unable to elaborate further. Physical Exam 2 Constitutional: WD/WN, vitals as above Eyes: PERRL, conjunctivae normal, anicteric sclerae Respiratory: breahting unlabored Cardiovascular: well perfused Gastrointestinal (Abdomen): no tenderness to palpation. +BS Psychiatric: oriented to self Results & Data Results & Data Vital Signs (Past 12 Hours) Vital Signs Temp Pulse Resp BP Pulse Ox O2 Del Method 03/06/24 15:08 36.9 C 63 18 158/82 H 95 Room Air 03/06/24 13:05 Room Air 03/06/24 08:19 37.1 C 59 L 17 152/67 H 94 Room Air Laboratory Results 03/04/24 07:17 03/06/24 06:09 PG Care Time/CCT Total # of Minutes Spent Total Time Spent with Patient: Total time spent is greater than 50% in coordination of care (as documented) at patient's floor/unit and/or counseling patient: Coding Level of Care Code 82288 SUB INP/OBS CARE 2/35MIN Diagnoses Multifocal pneumonia J18.9 Altered mental status R41.82 MSSA bacteremia R78.81; B95.61 Breast cancer C50.919 Depression, unspecified depression type F32.9 Depression Type: unspecified (5) Depression Depression Type: unspecified Qualified Code(s): F32.9 - Major depressive disorder, single episode, unspecified
--- NOTE | 2024-03-06 15:33 | Communication Note ---
Date of Service: March 06, 2024 Attempted to see patient today and she refused interview. Attempts to reassure her and explain my visit were unsuccessful. Psychiatric liaison attempted to see patient on separate encounter:"Pt. seen for initial interview and medication history. Faith did not look up when her name was called, but after a few times she did. When asked if I could get some information about her mood and medications she has tried she stated she did not want to talk to me. She also stated that she did not wish to speak to the psychiatrist. Attempted to get supplemental information from and he stated he did not know what meds she was on but he did state "She gets mean and nasty when she is depressed." states to call Lulu, her daughter. Message left with Lulu to call liaison phone. " Will re-attempt interview tomorrow and gather collateral from daughter.
[2024-03-06] MEDS: POLYETHYLENE (MIRALAX) 17 GM PACK PO SCH (20:16)
--- NOTE | 2024-03-07 14:21 | Psychiatric Consultation ---
Date of Consultation March 07, 2024 Impression / Recommendations Impression Faith Solorzano is a 74-year-old female history of A-fib, hyperlipidemia, urinary retention, type 2 diabetes, hypothyroidism, GERD, anemia, metastatic breast cancer who presents with altered mental status in the context of multifocal pneumonia and stroke workup. Psychiatry consulted for worsening depression. She presented limited spontaneous speech during interview with word finding difficulties. She endorsed depression symptoms, associated anxious ruminations, paranoia, crying spells, SI. Concern for severe major depression. Plan to reach out to her daughter for additional collateral as patient is a limited historian. Antidepressant med hx reviewed and recommend to start Abilify 2.5mg daily in addition to her Cymbalta for SNRI augmentation and to target anxious ruminations. Abilify unlikely to further prolong QTc.No acute safety concerns identified at this time. Overall, I spent a total of 60 minutes with this case including review of chart records, nursing report, review of lab work, direct evaluation of the patient at bedside, counseling the patient, discussion of the patient with the hospitalist provider, discussion with the psychiatric liaison during clinical rounds, and documentation in the electronic health record. (1) MDD (major depressive disorder), recurrent severe, without psychosis: (2) AMS (altered mental status): Altered mental status type: unspecified Qualified Code(s): R41.82 - Altered mental status, unspecified (3) Breast cancer: (4) Anemia: Anemia type: unspecified type Qualified Code(s): D64.9 - Anemia, unspecified (5) Difficulty with speech: (6) Prolonged QT interval: Plan -Continue home Duloxetine 30mg daily -Start Aripiprazole 2.5mg daily -Bedside sitter not indicated Psych History Identifying Data Faith Solozrano is a 74-year-old female history of A-fib, hyperlipidemia, urinary retention, type 2 diabetes, hypothyroidism, GERD, anemia, metastatic breast cancer who presents with altered mental status in the context of multifocal pneumonia and stroke workup. Psychiatry consulted for worsening depression. Chief Complaint "Everything is bad" History of Present Illness Patient was seen earlier in the morning by nurse liaison and was more talkative. During that time she was tearful and reported sadness. Patient was seen in the early afternoon and at that time presented limited spontaneous speech, was frequently distracted, and word-finding difficulties. She reports not being happy, having trouble falling and staying asleep, lack of appetite, not feeling safe in the hospital but unsure why. Complains of anxiety with anxious ruminations. Says this is all been getting worse and has been persistent for many months. "Long time since I have been happy." Complains of having pain "everywhere". Reports daily crying spells. Complains of passive SI with no active plans. She is open to antidepressant treatment and wants relief. She provided verbal permission for us to contact her and daughter. Reports currently living with her . Says her daughter is often demanding of her. Allergies Allergy/AdvReac Type Severity Reaction Status Date / Time metformin AdvReac Intermediate RESTLESSNES Verified 12/26/23 14:11 S Home Medications Medication Instructions Recorded Confirmed Type blood sugar diagnostic (Ch[employer]one [employer]Touch #100 ea 10/07/22 02/24/24 Rx Ultra Test strips) cyanocobalamin (vitamin B-12) 1,000 mcg IM MONTHLY #1 ea 10/07/22 02/24/24 Rx 1,000 mcg/mL injection kit [facility] Delica Plus Lancet 33 #300 ea 01/09/23 02/24/24 Rx gauge (lancets) albuterol sulfate 90 mcg/actuation 2 puff inhalation Q4 PRN Shortness 02/24/23 02/24/24 Rx aerosol inhaler Of Breath Or Wheezing #8.5 grams pen needle, diabetic 32 gauge x #100 ea 06/12/23 02/24/24 Rx 5/32" (Easy Comfort Pen Powell) apixaban 5 mg tablet (Eliquis) 5 mg PO BID #60 tabs 09/16/23 02/24/24 Rx duloxetine 60 mg capsule,delayed 60 mg PO QAM 09/26/23 02/24/24 History release (Cymbalta) pantoprazole 40 mg tablet,delayed 40 mg PO QAM #90 tabs 10/07/23 02/24/24 Rx release (Protonix) atorvastatin 40 mg tablet 40 mg PO HS #90 tabs 10/14/23 02/24/24 Rx oxycodone 10 mg tablet 10 mg PO Q4 PRN Pain 9-10 10/17/23 02/24/24 History phenazopyridine 95 mg tablet 95 mg PO Q8 PRN BLADDER PAIN 10/17/23 02/24/24 History sennosides 8.6 mg tablet (Senokot) 17.2 mg (2 x 8.6 mg) PO HS #7 tabs 02/04/24 02/24/24 Rx acetaminophen 500 mg tablet 1,000 mg PO Q8 PRN Fever Or Pain 02/24/24 02/24/24 History (Tylenol Extra Strength) cefazolin 2 gram solution for 2 g IV Q8H 02/24/24 02/24/24 History injection dextran 70-hypromellose eye drops 2 drp OPB Q6 PRN Dry Eye(S) 02/24/24 02/24/24 History in a dropperette (Artificial Tears (PF) drops in a dropperette) doxazosin 2 mg tablet 2 mg PO QAM 02/24/24 02/24/24 History heparin lock flush (porcine) 5 ml IV QS 02/24/24 02/24/24 History heparin lock flush (porcine) 10 10 unit IV DAILY 02/24/24 02/24/24 History unit/mL intravenous solution insulin glargine 100 unit/mL 7 unit subcut HS 02/24/24 02/24/24 History subcutaneous solution (Lantus U-100 Insulin) levothyroxine 100 mcg tablet 100 mcg PO DAILY 02/24/24 02/24/24 History lidocaine 4 % topical patch 1 patch topical DAILY 02/24/24 02/24/24 History melatonin 10 mg tablet 10 mg PO HS 02/24/24 02/24/24 History menthol 10 % topical cream 1 applic topical QS 02/24/24 02/24/24 History (Biofreeze (menthol)) nystatin 100,000 unit/gram topical 1 applic topical QPM 02/24/24 02/24/24 History powder polyethylene glycol 3350 17 gram 17 g PO QAM 02/24/24 02/24/24 History oral powder packet (Miralax) sodium chloride 0.9 % (flush) 10 ml IV QS 02/24/24 02/24/24 History tobramycin 0.3 % eye drops 2 drp ophthalmic (eye) QID 02/24/24 02/24/24 History Patient History Medical History Septic shock MSSA bacteremia Elevated troponin Anticoagulant long-term use Chronic GERD Anemia Human metapneumovirus pneumonia Infected venous access port 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 History of blood transfusion Closed fracture of left distal fibula Generalized weakness Lung nodules monitoring Urinary frequency Pacemaker 2019, follows with Dr Ramires. checks Q6 months. Neuropathy Aortic stenosis Mild aortic stenosis (MERLENE 1.6cm2; MG 7.8mmHg) per 12/2019 echo Diabetes mellitus, type 2 IDDM Degenerative disc disease Hx of cardiac pacemaker Implanted 2019 (tachy-monica syndrome), [employer] device Follows with Dr. Ramires Liver mass Pt denies but 05/17/20 PET scan shows 2.5 right hepatic lobe mass consistent with known hepatic metastasis Anemia h/o blood transfusions Infiltrating ductal carcinoma of left breast Initial Dx 2015- s/p lumpectomy, XRT and anastrozole Metastatic breast cancer 03/2020, follows with [facility] Peripheral neuropathy Hands (B/L CTS) Obstructive sleep apnea "Resolved" s/p gastric bypass (? retested) Hypercholesterolemia Gastroesophageal reflux disease controlled, stable per pt Chronic pain Cervical spine disease Full ROM per pt Surgical History H/O breast biopsy (05/29/23) Skin, left breast, 2 punch biopsies: In office procedure Dr. Alvarez - Fibrosing dermatitis. - See comment Status post revision of total replacement of right knee History of removal of Port-a-Cath (01/11/22) Infected port right anterior chest removed Dr. Shah S/P cardiac pacemaker procedure 2019 History of surgery Right knee TKA revision with spacer (07/11/2021): SAB at L3-4 (x2 attempts) + PNB at [facility]. No issues noted per post-op anesthesia progress note. History of carpal tunnel surgery of left wrist 06/2021 History of carpal tunnel surgery of right wrist Port-A-Cath in place hx - 05/2020 since removed d/t infection at port 12/2021 History of colonoscopy History of evacuation of hematoma Hematoma right breast and right chest 08/31/13 Dr. Shah H/O bilateral hip replacements Status post repair of ventral hernia History of total knee arthroplasty R/L Status post total abdominal hysterectomy and bilateral salpingo-oophorectomy Status post lumbar spine surgery for decompression of spinal cord Status post partial mastectomy of left breast Status post panniculectomy History of section x1 Status post laparoscopic cholecystectomy Status post gastric bypass for obesity Status post arthroscopy of left shoulder Status post appendectomy Family History Unknown Breast cancer Emphysema lung Mother Diabetes Heart disease Father Heart disease Other No family history of adverse response to anesthesia Denies family history of Ovarian cancer Prostate cancer Coronary heart disease Colorectal cancer Social History Smoking Status: Never smoker Tobacco Type: Cigarettes packs per day: 2; Second Hand Exposure: No; Do You Dip or Chew Tobacco: No; Hx Alcohol Use: No Hx Substance Use: No Preferred Language: Irish Communication Ability: Effective Visual Impairment: No Limitations Hearing Ability: Normal Clerical Associate Required: No Beliefs That Will Affect Care: None marital status: Current Living Situation: Half-Way Current Living Situation Comment: [facility] [facility] current occupational status: retired Feels Safe at Home: Yes Childhood Exposure to Second-Hand Smoke: Yes Diet: diabetic caffeine: Yes Dental Care, Regularly: No Physical Activity Frequency: 1-2 Times per Week Seatbelt Use: always Sunscreen Use: No Assistive Devices: Walker Physical Exam Mental Examination: Appearance: Unkempt Eye Contact: Diverts Contact Motor Behavior: Unremarkable Speech: Soft and Delayed Mood: Anxious and Sad Affect: Constricted Thought Process: Slowed Thinking Thought Content: Poverty of Content Hallucinations: None (paranoia) Insight: Poor (to limited) Judgement: Poor (to limited) Vital Signs (Past 24 Hours): Last Vital Signs Temp 36.8 C 03/07/24 07:45 Pulse 60 03/07/24 07:45 Resp 17 03/07/24 07:45 BP 143/61 H 03/07/24 07:45 Pulse Ox 93 03/07/24 07:45 O2 Del Method Room Air 03/07/24 07:45 Results & Data (PSY) Laboratory Results Hgb 7.9. QTc of 482. Medications Administered Acetaminophen (Acetaminophen 500 Mg Tab) 1,000 mg PO Q8H PRN PRN Reason: Fever Or Pain (First Line) Stop: 03/26/24 00:17 Last Admin: 03/05/24 06:28 Dose: 1,000 mg Documented By: Admin: 03/02/24 21:00 Dose: 1,000 mg Documented By: Admin: 03/01/24 20:47 Dose: 1,000 mg Documented By: Admin: 03/01/24 10:59 Dose: 1,000 mg Documented By: Admin: 02/29/24 21:01 Dose: 1,000 mg Documented By: Admin: 02/28/24 20:21 Dose: 1,000 mg Documented By: Admin: 02/28/24 10:28 Dose: 1,000 mg Documented By: Admin: 02/27/24 23:28 Dose: 1,000 mg Documented By: chair inspector and leveler: 02/27/24 14:29 Dose: 1,000 mg Documented By: Admin: 02/26/24 09:29 Dose: 1,000 mg Documented By: Admin: 02/25/24 20:02 Dose: 1,000 mg Documented By: Admin: 02/25/24 09:14 Dose: 1,000 mg Documented By: DELORES Amlodipine Besylate (Amlodipine Besylate 5 Mg Tab) 2.5 mg PO QAM RUTH Stop: 04/01/24 08:59 Last Admin: 03/07/24 08:23 Dose: 2.5 mg Documented By: Admin: 03/06/24 10:05 Dose: 2.5 mg Documented By: Admin: 03/05/24 10:20 Dose: 2.5 mg Documented By: Admin: 03/04/24 10:05 Dose: 2.5 mg Documented By: Admin: 03/03/24 07:25 Dose: 2.5 mg Documented By: Admin: 03/02/24 09:17 Dose: 2.5 mg Documented By: BELLO Apixaban (Apixaban 5 Mg Tablet) 5 mg PO BID RUTH Stop: 03/26/24 00:17 Last Admin: 03/07/24 08:24 Dose: 5 mg Documented By: Admin: 03/06/24 20:18 Dose: 5 mg Documented By: Admin: 03/06/24 10:05 Dose: 5 mg Documented By: Admin: 03/05/24 21:25 Dose: 5 mg Documented By: Admin: 03/05/24 10:19 Dose: 5 mg Documented By: Admin: 03/04/24 21:01 Dose: 5 mg Documented By: Admin: 03/04/24 10:06 Dose: 5 mg Documented By: Admin: 03/03/24 20:38 Dose: 5 mg Documented By: Admin: 03/03/24 07:24 Dose: 5 mg Documented By: Admin: 03/02/24 20:59 Dose: 5 mg Documented By: Admin: 03/02/24 07:49 Dose: 5 mg Documented By: Admin: 03/01/24 20:48 Dose: 5 mg Documented By: Admin: 03/01/24 07:46 Dose: 5 mg Documented By: Admin: 02/29/24 21:08 Dose: 5 mg Documented By: Admin: 02/29/24 08:50 Dose: 5 mg Documented By: Admin: 02/28/24 20:20 Dose: 5 mg Documented By: Admin: 02/28/24 08:13 Dose: 5 mg Documented By: Admin: 02/27/24 20:57 Dose: 5 mg Documented By: chair inspector and leveler: 02/27/24 09:35 Dose: 5 mg Documented By: Admin: 02/26/24 21:45 Dose: 5 mg Documented By: Admin: 02/26/24 10:03 Dose: 5 mg Documented By: Admin: 02/25/24 20:03 Dose: 5 mg Documented By: Admin: 02/25/24 09:09 Dose: 5 mg Documented By: Admin: 02/25/24 01:12 Dose: Not Given Documented By: MED Atorvastatin Calcium (Atorvastatin 40 Mg Tab) 40 mg PO QAM RUTH Stop: 04/03/24 08:59 Last Admin: 03/07/24 08:24 Dose: 40 mg Documented By: Admin: 03/06/24 10:05 Dose: 40 mg Documented By: Admin: 03/05/24 10:20 Dose: 40 mg Documented By: Admin: 03/04/24 10:05 Dose: 40 mg Documented By: SUSAN Doxazosin Mesylate (Doxazosin Mesylate Tab 2 Mg Tab) 2 mg PO QAM [facility] Stop: 03/26/24 08:59 Last Admin: 03/07/24 08:24 Dose: 2 mg Documented By: Admin: 03/06/24 10:06 Dose: 2 mg Documented By: Admin: 03/05/24 10:21 Dose: 2 mg Documented By: Admin: 03/04/24 10:06 Dose: 2 mg Documented By: Admin: 03/03/24 07:24 Dose: 2 mg Documented By: Admin: 03/02/24 07:50 Dose: 2 mg Documented By: Admin: 03/01/24 07:46 Dose: 2 mg Documented By: Admin: 02/29/24 08:48 Dose: 2 mg Documented By: Admin: 02/28/24 08:13 Dose: 2 mg Documented By: Admin: 02/27/24 09:35 Dose: 2 mg Documented By: Admin: 02/26/24 10:03 Dose: 2 mg Documented By: Admin: 02/25/24 09:10 Dose: 2 mg Documented By: DELORES Duloxetine HCl (Duloxetine Hcl 30 Mg Cap) 30 mg PO QAM RUTH Stop: 04/05/24 08:59 Last Admin: 03/07/24 08:24 Dose: 30 mg Documented By: Admin: 03/06/24 10:59 Dose: 30 mg Documented By: SUSAN Insulin Glargine (Lantus Per Unit Charge) 7 units SQ HS RUTH Stop: 03/26/24 20:59 Last Admin: 03/06/24 20:16 Dose: 7 units Documented By: NAIMA Co-signed By: [id number] Admin: 03/05/24 21:23 Dose: 7 units Documented By: NAIMA Co-signed By: SAB Admin: 03/04/24 21:01 Dose: 7 units Documented By: SOFIA Co-signed By: VINICIO Admin: 03/03/24 21:04 Dose: 7 units Documented By: SOFIA Co-signed By: RICARDA Admin: 03/02/24 21:01 Dose: 7 units Documented By: ACO Co-signed By: AMERICA Admin: 03/01/24 20:48 Dose: 7 units Documented By: ACO Co-signed By: MARGOTH Admin: 02/29/24 21:08 Dose: 7 units Documented By: ACO Co-signed By: AECatherine Admin: 02/28/24 20:20 Dose: 7 units Documented By: BRANDI Co-signed By: AECatherine Admin: 02/27/24 21:07 Dose: 7 units Documented By: NEEMA Co-signed By: BRANDI Admin: 02/26/24 21:42 Dose: 7 units Documented By: BURT Co-signed By: SUJIT Admin: 02/25/24 20:02 Dose: 7 units Documented By: SUJIT Co-signed By: MARGOTH Levothyroxine Sodium (Levothyroxine Sodium 100 Mcg Tablet) 100 mcg PO DAILYBB RUTH Stop: 03/26/24 06:29 Last Admin: 03/07/24 05:48 Dose: 100 mcg Documented By: Admin: 03/06/24 06:21 Dose: 100 mcg Documented By: Admin: 03/05/24 06:13 Dose: 100 mcg Documented By: Admin: 03/04/24 06:00 Dose: 100 mcg Documented By: Admin: 03/03/24 05:30 Dose: 100 mcg Documented By: Admin: 03/02/24 05:38 Dose: 100 mcg Documented By: Admin: 03/01/24 06:06 Dose: 100 mcg Documented By: ACSupriya Admin: 02/29/24 07:12 Dose: 100 mcg Documented By: Admin: 02/28/24 05:30 Dose: 100 mcg Documented By: chair inspector and leveler: 02/27/24 05:19 Dose: 100 mcg Documented By: Admin: 02/26/24 05:58 Dose: 100 mcg Documented By: Admin: 02/25/24 05:20 Dose: 100 mcg Documented By: MED Lidocaine (Lidocaine 5% 1 Patch) 1 patch TD DAILY RUTH Stop: 03/26/24 08:59 Last Admin: 03/07/24 08:24 Dose: 1 patch Documented By: Admin: 03/06/24 10:06 Dose: 1 patch Documented By: Admin: 03/05/24 10:21 Dose: 1 patch Documented By: Admin: 03/04/24 10:06 Dose: 1 patch Documented By: Admin: 03/03/24 07:24 Dose: 1 patch Documented By: Admin: 03/02/24 07:49 Dose: Not Given Documented By: Admin: 03/01/24 07:46 Dose: 1 patch Documented By: Admin: 02/29/24 08:50 Dose: 1 patch Documented By: Admin: 02/28/24 09:21 Dose: Not Given Documented By: Admin: 02/27/24 09:35 Dose: 1 patch Documented By: Admin: 02/26/24 10:04 Dose: 1 patch Documented By: Admin: 02/25/24 09:10 Dose: 1 patch Documented By: DELORES Melatonin (Melatonin 3 Mg Tab) 6 mg PO HS PRN PRN Reason: Sleep Stop: 03/26/24 23:04 Last Admin: 03/05/24 21:24 Dose: 6 mg Documented By: Admin: 03/02/24 21:00 Dose: 6 mg Documented By: Admin: 03/01/24 20:46 Dose: 6 mg Documented By: Admin: 02/29/24 21:05 Dose: 6 mg Documented By: Admin: 02/28/24 20:21 Dose: 6 mg Documented By: Admin: 02/25/24 23:24 Dose: 6 mg Documented By: SUJIT Miscellaneous (Remove Lidoderm Patch) 1 each N/A DAILY@2100 RUTH Stop: 03/26/24 00:40 Last Admin: 03/06/24 20:17 Dose: 1 each Documented By: Admin: 03/05/24 21:25 Dose: 1 each Documented By: Admin: 03/04/24 21:01 Dose: 1 each Documented By: Admin: 03/03/24 20:38 Dose: 1 each Documented By: Admin: 03/02/24 20:59 Dose: Not Given Documented By: Admin: 03/01/24 20:49 Dose: 1 each Documented By: Admin: 02/29/24 21:08 Dose: 1 each Documented By: Admin: 02/28/24 20:21 Dose: Not Given Documented By: Admin: 02/27/24 21:36 Dose: 1 each Documented By: chair inspector and leveler: 02/26/24 21:46 Dose: 1 each Documented By: Admin: 02/25/24 20:04 Dose: 1 each Documented By: Admin: 02/25/24 01:07 Dose: Not Given Documented By: MED Nystatin (Nystatin Powder 15gm Btl) 1 appln EXT QPM RUTH Stop: 03/26/24 20:59 Last Admin: 03/06/24 20:17 Dose: 1 appln Documented By: Admin: 03/05/24 21:32 Dose: 1 appln Documented By: Admin: 03/04/24 21:01 Dose: 1 appln Documented By: Admin: 03/03/24 20:38 Dose: 1 appln Documented By: Admin: 03/02/24 20:59 Dose: 1 appln Documented By: Admin: 03/01/24 20:48 Dose: 1 appln Documented By: Admin: 02/29/24 21:05 Dose: 1 appln Documented By: Admin: 02/28/24 20:22 Dose: 1 appln Documented By: Admin: 02/27/24 20:58 Dose: 1 appln Documented By: chair inspector and leveler: 02/26/24 21:45 Dose: 1 appln Documented By: Admin: 02/25/24 21:50 Dose: 1 appln Documented By: SUJIT Ondansetron HCl (Ondansetron Inj 2 Mg/Ml 2 Ml Vial) 4 mg IV Q6H PRN PRN Reason: Nausea Stop: 03/26/24 00:17 Last Admin: 02/26/24 09:30 Dose: 4 mg Documented By: LADI Oxycodone HCl (Oxycodone Hcl Ir 5 Mg Tab (Immediate Release)) 10 mg PO Q4 PRN PRN Reason: Pain (Second Line) Stop: 03/10/24 00:17 Last Admin: 03/07/24 08:21 Dose: 10 mg Documented By: Admin: 03/07/24 00:50 Dose: 10 mg Documented By: Admin: 03/06/24 16:48 Dose: 10 mg Documented By: Admin: 03/06/24 10:10 Dose: 10 mg Documented By: Admin: 03/06/24 06:25 Dose: 10 mg Documented By: Admin: 03/05/24 22:31 Dose: 10 mg Documented By: Admin: 03/05/24 18:08 Dose: 10 mg Documented By: Admin: 03/05/24 10:32 Dose: 10 mg Documented By: Admin: 03/05/24 06:30 Dose: 10 mg Documented By: Admin: 03/04/24 21:01 Dose: 10 mg Documented By: Admin: 03/04/24 14:09 Dose: 10 mg Documented By: Admin: 03/04/24 10:06 Dose: 10 mg Documented By: Admin: 03/04/24 06:00 Dose: 10 mg Documented By: Admin: 03/03/24 21:05 Dose: 10 mg Documented By: Admin: 03/03/24 16:46 Dose: 10 mg Documented By: Admin: 03/03/24 10:48 Dose: 10 mg Documented By: Admin: 03/03/24 06:11 Dose: 10 mg Documented By: Admin: 03/02/24 21:36 Dose: 10 mg Documented By: Admin: 03/02/24 17:07 Dose: 10 mg Documented By: Admin: 03/02/24 12:14 Dose: 10 mg Documented By: Admin: 03/02/24 06:01 Dose: 10 mg Documented By: Admin: 03/01/24 16:31 Dose: 10 mg Documented By: Admin: 03/01/24 12:29 Dose: 10 mg Documented By: Admin: 03/01/24 08:25 Dose: 10 mg Documented By: Admin: 03/01/24 00:11 Dose: 10 mg Documented By: Admin: 02/29/24 13:39 Dose: 10 mg Documented By: Admin: 02/29/24 07:12 Dose: 10 mg Documented By: Admin: 02/29/24 02:25 Dose: 10 mg Documented By: Admin: 02/28/24 22:13 Dose: 10 mg Documented By: Admin: 02/28/24 18:02 Dose: 10 mg Documented By: Admin: 02/28/24 12:24 Dose: 10 mg Documented By: Admin: 02/28/24 05:29 Dose: 10 mg Documented By: chair inspector and leveler: 02/27/24 21:08 Dose: 10 mg Documented By: chair inspector and leveler: 02/27/24 17:20 Dose: 10 mg Documented By: Admin: 02/27/24 09:33 Dose: 10 mg Documented By: Admin: 02/27/24 05:18 Dose: 10 mg Documented By: Admin: 02/26/24 21:43 Dose: 10 mg Documented By: Admin: 02/26/24 15:57 Dose: 10 mg Documented By: Admin: 02/26/24 09:28 Dose: 10 mg Documented By: Admin: 02/25/24 12:17 Dose: 10 mg Documented By: DELORES Pantoprazole Sodium (Pantoprazole 40 Mg Tab) 40 mg PO DAILY RUTH Stop: 04/02/24 08:59 Last Admin: 03/07/24 08:25 Dose: 40 mg Documented By: Admin: 03/06/24 10:05 Dose: 40 mg Documented By: Admin: 03/05/24 10:20 Dose: 40 mg Documented By: Admin: 03/04/24 10:06 Dose: 40 mg Documented By: Admin: 03/03/24 07:25 Dose: 40 mg Documented By: BELLO Polyethylene Glycol (Polyethylene (Miralax) 17 Gm Pack) 17 gm PO BID RUTH Stop: 04/05/24 20:59 Last Admin: 03/07/24 08:35 Dose: 17 gm Documented By: Admin: 03/06/24 20:16 Dose: 17 gm Documented By: NAIMA Trolamine Salicylate (Trolamine Salicylate 10% Crm 255 Appln/85 Gm Tube) 1 appln EXT QS RUTH Stop: 03/26/24 07:59 Last Admin: 03/07/24 08:21 Dose: 1 appln Documented By: Admin: 03/07/24 00:52 Dose: 1 appln Documented By: Admin: 03/06/24 15:45 Dose: Not Given Documented By: Admin: 03/06/24 09:34 Dose: Not Given Documented By: Admin: 03/05/24 22:36 Dose: 1 appln Documented By: Admin: 03/05/24 16:07 Dose: Not Given Documented By: Admin: 03/05/24 09:11 Dose: Not Given Documented By: Admin: 03/05/24 00:32 Dose: 1 appln Documented By: Admin: 03/04/24 15:47 Dose: Not Given Documented By: Admin: 03/04/24 10:09 Dose: 1 appln Documented By: Admin: 03/04/24 01:14 Dose: Not Given Documented By: Admin: 03/03/24 15:24 Dose: Not Given Documented By: Admin: 03/03/24 07:24 Dose: 1 appln Documented By: Admin: 03/02/24 23:21 Dose: Not Given Documented By: Admin: 03/02/24 16:00 Dose: 1 appln Documented By: Admin: 03/02/24 07:49 Dose: 1 appln Documented By: Admin: 03/02/24 00:43 Dose: 1 appln Documented By: Admin: 03/01/24 16:30 Dose: 1 appln Documented By: Admin: 03/01/24 07:47 Dose: 1 appln Documented By: Admin: 03/01/24 00:12 Dose: 1 appln Documented By: Admin: 02/29/24 16:42 Dose: 1 appln Documented By: Admin: 02/29/24 08:49 Dose: 1 appln Documented By: Admin: 02/28/24 20:20 Dose: 1 appln Documented By: Admin: 02/28/24 16:53 Dose: 1 appln Documented By: Admin: 02/28/24 08:15 Dose: 1 appln Documented By: Admin: 02/27/24 23:29 Dose: 1 appln Documented By: chair inspector and leveler: 02/27/24 17:21 Dose: 1 appln Documented By: Admin: 02/27/24 09:34 Dose: Not Given Documented By: Admin: 02/27/24 00:24 Dose: 1 appln Documented By: Admin: 02/26/24 15:51 Dose: Not Given Documented By: Admin: 02/26/24 10:03 Dose: 1 appln Documented By: Admin: 02/25/24 23:24 Dose: 1 appln Documented By: Admin: 02/25/24 16:49 Dose: 1 appln Documented By: Admin: 02/25/24 09:09 Dose: 1 appln Documented By: DELORES [place] [address] IN/OBS CONSULT LVL 4,60M Patient Type New History Detailed Exam Detailed Medical Decision Making Moderate Complexity Diagnoses MDD (major depressive disorder), recurrent severe, without psychosis F33.2 AMS (altered mental status) R41.82 Altered mental status type: unspecified Breast cancer C50.919 Anemia D64.9 Anemia type: unspecified type Difficulty with speech R47.9 Prolonged QT interval R94.31
--- NOTE | 2024-03-07 15:36 | Hospitalist Progress Note ---
Date of Service March 07, 2024 Assessment & Plan (1) Multifocal pneumonia: Plan: Presented with acute AMS in setting of recent completion of IV antibiotics for MSSA bacteremia at [facility]. On admission, daughter expressed concern about patient receiving too many narcotic medications while at rehab. Aspiration PNA/Multifocal PNA / Large Pleural Effusions / Secondary Immunocompromise a/w Chemotherapy - Patient only oriented to self on arrival, possible infectious encephalopathy -- Metabolic encephalopathy due to aspiration pneumonia - No hx of CHF, prior EF 65-70% 01/13/24 - Active metastatic breast cancer ongoing chemotherapy w/ [facility] (Dr. De Luna) - CXR w/ pulmonary vascular congestion with mild interstitial edema, small pleural effusions with dependent consolidation - Chest CTA: No pulmonary embolism. Dependent airspace consolidations, concerning for multilobar pneumonia/aspiration. Large bilateral pleural effusions. - completed course of zosyn/augmentin. - repeat CXR 03/05 demonstrated stable effusions -will reassess in AM whether further IV diuresis is required. - PT/OT recommending SNF rehab --> case management following Blood pressures have continued to rise with isolated systolic hypertension -Doxazosin - Started amlodipine 2.5 mg PO daily 03/02 > Monitor BPs. May increase dose after 7-14 days if further control is needed - BP also improving with diuresis . (2) Altered mental status: Plan: Stroke Evaluation - 12-24 hours of intermittent 'word-salad' and agitation w/o additional focal neurological deficits prior to admission. Did require PO Zyprexa in ED on admission due to agitation. - Labs: CBC/CMP only remarkable for chronic anemia Troponin negative. Biofire negative TSH elevated, though improved from prior, outpt f/u recommended Hypomagnesemia noted, repleted - Imaging: CT Head negative, CTA Head & Neck negative MRI contraindicated 2/2 pacemaker - EKG paced, no acute change form prior Recurrent Urinary Tract Infections - No dysuria, frequency, suprapubic pain noted on admission. UA negative - Patient reported dysuria on 02/26 -- UA negative (3) MSSA bacteremia: Plan: Recent MSSA Bacteremia, completed 6 week course of IV Cefazolin 2g Q8H on 02/24/24 - Previous port removed with planned replacement (4) Breast cancer: Plan: Metastatic breast cancer to liver - Localized breast cancer diagnosed 2015 - Metastatic breast cancer with hepatic lesion, ER 100%, diagnosed March 2020 - Chronic anemia in the setting of cancer treatments - Follows with Dr. De Luna at [facility] - last treatment Dec 23 - liposomal doxorubicin (missed jan dose) - He plans to continue further treatment, nothing immediate - Pt expressed she is not interested in hospice 03/04. Previously referred to Palliative care outpatient and no showed that appointment (5) Depression: Plan: Switched back to Duloxetine by PCP 08/2023 - PCP notes: She was previously treated with Vortioxetine, Celexa, buspirone, lorazepam. More depressed with chemo. Daughter and pt requesting med changed, pt reports being more depressed and emotional and not sleeping well. - plan to decrease cymbalta to 30mg and start remeron 15mg HS, continue to titrate/wean as able - patient mental status declined following initiation of remeron 15mg HS. discontinued medication. consulted psychiatry to assist in antidepressants for patient as she has tried and not tolerated multiple medications. Appreciate their recommendations. Discussed w/ Psychiatry and they are recommending adding Abilify 2.5mg and to continue Cymbalta. Plan Chronic Conditions: - AFib on Eliquis - no evidence of bleeding on CT Head, continue Eliquis - Tachy-Darren Syndrome - ongoing pacer - HLD - continue statin - DM2 - A1c well controlled w/ glargine 7 units HS, BSG checks ordered ACHS - Hypothyroidism - continue levothyroxine. TSH elevated (improved compared to prior), but could be inflammatory response given acute infection. Recommend f/u with PCP after discharge. - GERD - continue pantoprazole - Anemia - noted 2/2 chemotherapy, stable DVT: Eliquis Dispo: continued inpatient stay Admission and Anticipated Discharge Date Admission Date: February 24, 2024 Subjective Patient seen and examined this morning. patient tearful at begining of encounter. she states she was not having a good morning. by end of encounter patient appeared to be angry and was screaming. Physical Exam Constitutional: WD/WN, vitals as above Eyes: PERRL, conjunctivae normal, anicteric sclerae Respiratory: breathing unlabored Cardiovascular: well perfused Skin: no rashes, warm and dry Psychiatric: Affect: + depressed affect Mood: + angry mood Results & Data Results & Data Vital Signs (Past 12 Hours) Vital Signs Temp Pulse Resp BP Pulse Ox O2 Del Method 03/07/24 14:58 36.7 C 60 17 144/65 H 93 Room Air 03/07/24 07:45 36.8 C 60 17 143/61 H 93 Room Air PG Care Time/CCT Total # of Minutes Spent Total Time Spent with Patient: Total time spent is greater than 50% in coordination of care (as documented) at patient's floor/unit and/or counseling patient: Coding Level of Care Code 61070 SUB INP/OBS CARE 2/35MIN Diagnoses Multifocal pneumonia J18.9 Altered mental status R41.82 MSSA bacteremia R78.81; B95.61 Breast cancer C50.919 Depression, unspecified depression type F32.9 Depression Type: unspecified (5) Depression Depression Type: unspecified Qualified Code(s): F32.9 - Major depressive disorder, single episode, unspecified
[2024-03-08] MEDS: ARIPiprazole 5 MG TAB PO SCH (09:26)
--- NOTE | 2024-03-08 13:49 | Hospitalist Progress Note ---
Date of Service March 08, 2024 Assessment & Plan (1) Multifocal pneumonia: Plan: Presented with acute AMS in setting of recent completion of IV antibiotics for MSSA bacteremia at [facility]. On admission, daughter expressed concern about patient receiving too many narcotic medications while at rehab. Aspiration PNA/Multifocal PNA / Large Pleural Effusions / Secondary Immunocompromise a/w Chemotherapy - Patient only oriented to self on arrival, possible infectious encephalopathy -- Metabolic encephalopathy due to aspiration pneumonia - No hx of CHF, prior EF 65-70% 01/13/24 - Active metastatic breast cancer ongoing chemotherapy w/ [facility] (Dr. De Luna) - CXR w/ pulmonary vascular congestion with mild interstitial edema, small pleural effusions with dependent consolidation - Chest CTA: No pulmonary embolism. Dependent airspace consolidations, concerning for multilobar pneumonia/aspiration. Large bilateral pleural effusions. - completed course of zosyn/augmentin. - repeat CXR 03/05 demonstrated stable effusions - patient w/o SOB, if develops, consider repeat CXR/further IV Lasix. - PT/OT recommending SNF rehab --> case management following Blood pressures have continued to rise with isolated systolic hypertension -Doxazosin - Started amlodipine 2.5 mg PO daily 03/02 > Monitor BPs. May increase dose after 7-14 days if further control is needed - BP also improving with diuresis (2) Altered mental status: Plan: Stroke Evaluation - 12-24 hours of intermittent 'word-salad' and agitation w/o additional focal neurological deficits prior to admission. Did require PO Zyprexa in ED on admission due to agitation. - Labs: CBC/CMP only remarkable for chronic anemia Troponin negative. Biofire negative TSH elevated, though improved from prior, outpt f/u recommended Hypomagnesemia noted, repleted - Imaging: CT Head negative, CTA Head & Neck negative MRI contraindicated 2/2 pacemaker - EKG paced, no acute change form prior Recurrent Urinary Tract Infections - No dysuria, frequency, suprapubic pain noted on admission. UA negative - Patient reported dysuria on 02/26 -- UA negative (3) MSSA bacteremia: Plan: Recent MSSA Bacteremia, completed 6 week course of IV Cefazolin 2g Q8H on 02/24/24 - Previous port removed with planned replacement (4) Breast cancer: Plan: Metastatic breast cancer to liver - Localized breast cancer diagnosed 2015 - Metastatic breast cancer with hepatic lesion, ER 100%, diagnosed March 2020 - Chronic anemia in the setting of cancer treatments - Follows with Dr. De Luna at [facility] - last treatment Dec 23 - liposomal doxorubicin (missed jan dose) - He plans to continue further treatment, nothing immediate - Pt expressed she is not interested in hospice 03/04. Previously referred to Palliative care outpatient and no showed that appointment (5) Depression: Plan: Switched back to Duloxetine by PCP 08/2023 - PCP notes: She was previously treated with Vortioxetine, Celexa, buspirone, lorazepam. More depressed with chemo. Daughter and pt requesting med changed, pt reports being more depressed and emotional and not sleeping well. -Cymbalta decreased to 30mg -Trial of Remeron 15mg HS x 1 evening. Patient did not respond well and was d/c Psychiatry evaluated patient and recommended continuing Cymbalta and adding Abilfy 2.5mg. Plan Chronic Conditions: - AFib on Eliquis - no evidence of bleeding on CT Head, continue Eliquis - Tachy-Darren Syndrome - ongoing pacer - HLD - continue statin - DM2 - A1c well controlled w/ glargine 7 units HS, BSG checks ordered ACHS - Hypothyroidism - continue levothyroxine. TSH elevated (improved compared to prior), but could be inflammatory response given acute infection. Recommend f/u with PCP after discharge. - GERD - continue pantoprazole - Anemia - noted 2/2 chemotherapy, stable DVT: Eliquis Dispo: continued inpatient stay Admission and Anticipated Discharge Date Admission Date: February 24, 2024 Subjective Patient seen and examined. patient resting comfortably in bed at time of encounter. She denied pain. States she wanted to rest. Physical Exam Constitutional: WD/WN, vitals as above Eyes: PERRL, conjunctivae normal, anicteric sclerae Respiratory: breathing unlabored Cardiovascular: well perfused Skin: no rashes, warm and dry Results & Data Results & Data Vital Signs (Past 12 Hours) Vital Signs Temp Pulse Resp BP Pulse Ox O2 Del Method 03/08/24 07:26 36.8 C 60 18 132/66 98 Room Air PG Care Time/CCT Total # of Minutes Spent Total Time Spent with Patient: Total time spent is greater than 50% in coordination of care (as documented) at patient's floor/unit and/or counseling patient: Coding Level of Care Code 74532 SUB INP/OBS CARE Diagnoses Multifocal pneumonia J18.9 Altered mental status R41.82 MSSA bacteremia R78.81; B95.61 Breast cancer C50.919 Depression, unspecified depression type F32.9 Depression Type: unspecified (5) Depression Depression Type: unspecified Qualified Code(s): F32.9 - Major depressive disorder, single episode, unspecified
--- NOTE | 2024-03-08 19:54 | Communication Note ---
Date of Service: March 08, 2024 Notified by nursing at 19:17 that patient was having an episode where she seemed panicked, tearful and was having some garbled speech intermittently. Chart reviewed, symptoms similar to those at time of admission. I went to bedside, no other focal neuro deficits noted aside from intermittent "word salad", patient able to move all extremities and follow commands. I ordered a stat CT head to rule out acute abnormalities, also ordered routine neuro checks overnight. Patient moved to telemetry status. Due to multiple stroke alerts overnight, stat CT was delayed but after completion, read showed no acute findings. Resident Activity Tracking Resident Involvement: Resident Care Provided Care Provided: Adult [facility]
--- NOTE | 2024-03-09 02:54 | CT Scan Report ---
Exam(s): CT HEAD Without Contrast EXAM: CT Head Without Intravenous Contrast CLINICAL HISTORY: Reason for exam: abnormal speech. TECHNIQUE: Axial computed tomography images of the head/brain without intravenous contrast. Automated exposure control was utilized for the study. A dose lowering technique was utilized adhering to the principles of ALARA. COMPARISON: Prior head CT from February 24, 2024. FINDINGS: The study is limited secondary to motion artifact. Brain: Unremarkable. No hemorrhage. Moderate to advanced nonspecific white matter changes.. No edema. Ventricles: Moderate ventriculomegaly. Bones/joints: Unremarkable. No acute fracture. Soft tissues: Unremarkable. Sinuses: Unremarkable as visualized. No acute sinusitis. Mastoid air cells: Unremarkable as visualized. No mastoid effusion. IMPRESSION: No evidence of acute intracranial pathology. Electronically signed by: Elizabeth Andrade MD 03/09/24 01:58 AM
[2024-03-09 08:05] LABS: Hematocrit (blood only) 26.1 % (37.0-47.0); Hemoglobin 8.1 g/dl (12.0-16.0); Mean Corpuscular Hemoglobin 26.7 pg (25.0-34.0); Mean Corpuscular Volume 86.1 fL (80.0-100.0); Platelet Count 100 K/uL (130-400); RDW Coefficient of Variation 17.7 % (11.5-14.5); RDW Standard Deviation 55.4 fL (36.4-46.3); Red Blood Count 3.03 M/uL (4.20-5.40)
[2024-03-09 08:10] LABS: Albumin Globulin Ratio 1.2 (0.9-2); Albumin Level 3.1 gm/dl (3.4-5.0); BUN Creatinine Ratio 33.3 (10-20); Bilirubin,Total 0.4 mg/dl (0.2-1.0); Calcium 8.4 mg/dl (8.6-10.3); Creatinine Clr Calc Pharmacy 90.1 ml/min; Globulin 2.5 gm/dl (2.5-4.0); Potassium 4.3 mmol/L (3.5-5.1); Total Protein 5.6 gm/dl (6.0-8.3)
[2024-03-09 08:25] LABS: Basophils # (auto) 0.02 K/uL (0.00-0.20); Basophils % (auto) 0.4 %; Eosinophils # (auto) 0.15 K/uL (0.00-0.50); Eosinophils % (auto) 3.1 %; Hypochromasia Present; Immature Granulocytes # (auto) 0.01 K/uL (0.01-0.20); Immature Granulocytes % (auto) 0.2 %; Lymphocytes # (auto) 0.62 K/uL (1.20-3.40); Lymphocytes % (auto) 12.9 %; Monocytes # (auto) 0.49 K/uL (0.11-0.59); Monocytes % (auto) 10.2 %; Neutrophils # (auto) 3.51 K/uL (1.40-6.50); Neutrophils % (auto) 73.2 %; Ovalocytes 1+; Tear Drop Cells 1+
--- NOTE | 2024-03-09 15:42 | Hospitalist Progress Note ---
Date of Service March 09, 2024 Assessment & Plan (1) Multifocal pneumonia: Plan: Presented with acute AMS in setting of recent completion of IV antibiotics for MSSA bacteremia at [facility]. On admission, daughter expressed concern about patient receiving too many narcotic medications while at rehab. Aspiration PNA/Multifocal PNA / Large Pleural Effusions / Secondary Immunocompromise a/w Chemotherapy - Patient only oriented to self on arrival, possible infectious encephalopathy -- Metabolic encephalopathy due to aspiration pneumonia - No hx of CHF, prior EF 65-70% 01/13/24 - Active metastatic breast cancer ongoing chemotherapy w/ [facility] (Dr. De Luna) - CXR w/ pulmonary vascular congestion with mild interstitial edema, small pleural effusions with dependent consolidation - Chest CTA: No pulmonary embolism. Dependent airspace consolidations, concerning for multilobar pneumonia/aspiration. Large bilateral pleural effusions. - completed course of zosyn/augmentin. - repeat CXR 03/05 demonstrated stable effusions - patient w/o SOB, if develops, consider repeat CXR/further IV Lasix. - PT/OT recommending SNF rehab --> case management following Blood pressures have continued to rise with isolated systolic hypertension - continue Doxazosin - Started amlodipine 2.5 mg PO daily 03/02 (2) Altered mental status: Plan: Stroke Evaluation - 12-24 hours of intermittent 'word-salad' and agitation w/o additional focal neurological deficits prior to admission. Did require PO Zyprexa in ED on admission due to agitation. - Labs: CBC/CMP only remarkable for chronic anemia Troponin negative. Biofire negative TSH elevated, though improved from prior, outpt f/u recommended Hypomagnesemia noted, repleted - Imaging: CT Head negative, CTA Head & Neck negative MRI contraindicated 2/2 pacemaker - EKG paced, no acute change form prior Patient with repeat episode of word salad - 03/06 thought to be effect from Remeron, psych was consulted and this was changed to abilify - 03/08 evening further word salad and word finding difficulty - CBC and chemistry unremarkable - Head CT without acute findings - Abilify held, encourage PO fluids - Check UA (3) MSSA bacteremia: Plan: Recent MSSA Bacteremia, completed 6 week course of IV Cefazolin 2g Q8H on 02/24/24 - Previous port removed with planned replacement (4) Breast cancer: Plan: Metastatic breast cancer to liver - Localized breast cancer diagnosed 2015 - Metastatic breast cancer with hepatic lesion, ER 100%, diagnosed March 2020 - Chronic anemia in the setting of cancer treatments - Follows with Dr. De Lnua at [facility] - last treatment Dec 23 - liposomal doxorubicin (missed sept dose) - I personally discussed with Dr. De Luna, at this point there is plans to do future chemo is patient is able to make a recovery. However, no current chemo scheduled and no chemo therapy to be done while patient is at rehab. - Pt expressed she is not interested in hospice 03/04. Previously referred to Palliative care outpatient and no showed that appointment (5) Depression: Plan: Switched back to Duloxetine by PCP 08/2023 - PCP notes: She was previously treated with Vortioxetine, Celexa, buspirone, lorazepam. More depressed with chemo. Daughter and pt requesting med changed, pt reports being more depressed and emotional and not sleeping well. -Cymbalta decreased to 30mg -Trial of Remeron 15mg HS x 1 evening. Patient did not respond well and was d/c Psychiatry evaluated patient and recommended continuing Cymbalta and adding Abilfy 2.5mg. - abilify held due to AMS Plan Chronic Conditions: - AFib on Eliquis - no evidence of bleeding on CT Head, continue Eliquis - Tachy-Darren Syndrome - ongoing pacer - HLD - continue statin - DM2 - A1c well controlled w/ glargine 7 units HS, BSG checks ordered ACHS - Hypothyroidism - continue levothyroxine. TSH elevated (improved compared to prior), but could be inflammatory response given acute infection. Recommend f/u with PCP after discharge. - GERD - continue pantoprazole - Anemia - noted 2/2 chemotherapy, stable DVT: Eliquis Dispo: continued inpatient stay LM for daughter 03/09 Admission and Anticipated Discharge Date Admission Date: February 24, 2024 Subjective patient seen earlier this morning after breakfast, still has some word salad but able to make needs known Discussed possibility of a stroke and pt was able to clearly express that she would not want an MRI (she also has a pacemaker) no acute concerns besides being frustrated that she is having difficulty expressing her thoughts - discussed with her that i thought this may be a reaction to medication and encouraged PO hydration, RN to order crystal light from cafeteria No events on tele - paced 60s Review of Systems Review of Systems: All systems reviewed & are unremarkable except as noted in Subjective Physical Exam Physical Exam: General: No acute distress, nondiaphoretic, well-developed, well-nourished. Sitting up in bed, eating snacks. Skin: The skin was without rashes, erythema, edema, or bruising. Cardiac: Regular rate and rhythm without murmurs gallops or rubs. no LE edema Pulm: Diminished in the bases., no wheezing. No respiratory distress. Abdominal: Soft, nontender, nondistended. Neuro: A&O x3. some difficulty with word finding, garbled speech. no other neuro deficits. Results & Data Results & Data Vital Signs (Past 12 Hours) Vital Signs Temp Pulse Pulse Resp BP BP Pulse Ox 03/09/24 11:57 98.8 F 60 16 112/43 L 95 03/09/24 08:27 60 03/09/24 07:34 98.5 F 61 18 156/77 H 97 O2 Del Method 03/09/24 11:57 Room Air 03/09/24 08:27 03/09/24 07:34 Room Air Laboratory Results CBC and chemistry reviewed Diagnostic Findings head CT reviewed PG Care Time/CCT Total # of Minutes Spent Total Time Spent with Patient: Total time spent is greater than 50% in coordination of care (as documented) at patient's floor/unit and/or counseling patient: Coding Level of Care Code 25066 SUB INP/OBS CARE 3/50MIN Diagnoses Multifocal pneumonia J18.9 Altered mental status R41.82 MSSA bacteremia R78.81; B95.61 Breast cancer C50.919 Depression, unspecified depression type F32.9 Depression Type: unspecified (5) Depression Depression Type: unspecified Qualified Code(s): F32.9 - Major depressive disorder, single episode, unspecified
[2024-03-09 23:51] LABS: Appearance Urine Clear (Clear); Bacteria Urine Automated None Seen (None Seen); Bilirubin Urine Negative (Negative); Blood Urine Negative (Negative); Cast Urine Automated 0-2 /lpf (0-2); Color Urine Yellow; Epithelial Cell Urine Auto 0-2 /hpf (0-2); Glucose Urine UA Negative (Negative); Ketones Urine Negative (Negative); Leukocyte Esterase Urine Negative (Negative); Nitrite Urine Negative (Negative); Protein Urine Trace (Negative); RBC Urine Automated 0-2 /hpf (0-2); Specific Gravity Urine 1.015 (1.000-1.030); Urobilinogen Urine Negative (Negative); WBC Urine Automated 0-5 /hpf (0-5)
--- NOTE | 2024-03-10 10:13 | Hospitalist Progress Note ---
Date of Service March 10, 2024 Assessment & Plan (1) Multifocal pneumonia: Plan: Presented with acute AMS in setting of recent completion of IV antibiotics for MSSA bacteremia at [facility]. On admission, daughter expressed concern about patient receiving too many narcotic medications while at rehab. Aspiration PNA/Multifocal PNA / Large Pleural Effusions / Secondary Immunocompromise a/w Chemotherapy - Patient only oriented to self on arrival, possible infectious encephalopathy -- Metabolic encephalopathy due to aspiration pneumonia - No hx of CHF, prior EF 65-70% 01/13/24 - CXR w/ pulmonary vascular congestion with mild interstitial edema, small pleural effusions with dependent consolidation - Chest CTA: No pulmonary embolism. Dependent airspace consolidations, concerning for multilobar pneumonia/aspiration. Large bilateral pleural effusions. - completed course of zosyn/augmentin. - repeat CXR 03/05 demonstrated stable effusions - patient w/o SOB, if develops, consider repeat CXR/further IV Lasix. - PT/OT recommending SNF rehab --> case management following Blood pressures have continued to rise with isolated systolic hypertension - continue Doxazosin - Started amlodipine 2.5 mg PO daily 03/02 (2) Altered mental status: Plan: Stroke Evaluation - 12-24 hours of intermittent 'word-salad' and agitation w/o additional focal neurological deficits prior to admission. Did require PO Zyprexa in ED on admission due to agitation. - Labs: CBC/CMP only remarkable for chronic anemia Troponin negative. Biofire negative TSH elevated, though improved from prior, outpt f/u recommended Hypomagnesemia noted, repleted - Imaging: CT Head negative, CTA Head & Neck negative MRI contraindicated 2/2 pacemaker - EKG paced, no acute change form prior Patient with repeat episode of word salad - 03/06 thought to be effect from Remeron, psych was consulted and this was changed to abilify - 03/08 evening further word salad and word finding difficulty - CBC and chemistry unremarkable. UA negative. - Head CT without acute findings - Abilify held, encourage PO fluids Patient is MUCH IMPROVED - will d/c further Abilify. (3) MSSA bacteremia: Plan: Recent MSSA Bacteremia, completed 6 week course of IV Cefazolin 2g Q8H on 02/24/24 - Previous port removed with planned replacement (4) Breast cancer: Plan: Metastatic breast cancer to liver - Localized breast cancer diagnosed 2015 - Metastatic breast cancer with hepatic lesion, ER 100%, diagnosed March 2020 - Chronic anemia in the setting of cancer treatments - Follows with Dr. De Luna at [facility] - last treatment Dec 23 - liposomal doxorubicin (missed sept dose) - I personally discussed with Dr. De Luna, at this point there is plans to do future chemo is patient is able to make a recovery. However, no current chemo scheduled and no chemo therapy to be done while patient is at rehab. - Pt expressed she is not interested in hospice 03/04. Previously referred to Palliative care outpatient and no showed that appointment (5) Depression: Plan: Switched back to Duloxetine by PCP 08/2023 - PCP notes: She was previously treated with Vortioxetine, Celexa, buspirone, lorazepam. More depressed with chemo. Daughter and pt requesting med changed, pt reports being more depressed and emotional and not sleeping well. -Cymbalta decreased to 30mg -Trial of Remeron 15mg HS x 1 evening. Patient did not respond well and was d/c Psychiatry evaluated patient and recommended continuing Cymbalta and adding Abilfy 2.5mg. - abilify held due to AMS, patient back to baseline 03/10, d/c abilify Plan Chronic Conditions: - AFib on Eliquis - no evidence of bleeding on CT Head, continue Eliquis - Tachy-Darren Syndrome - ongoing pacer - HLD - continue statin - DM2 - A1c well controlled w/ glargine 7 units HS, BSG checks ordered ACHS - Hypothyroidism - continue levothyroxine. TSH elevated (improved compared to prior), but could be inflammatory response given acute infection. Recommend f/u with PCP after discharge. - GERD - continue pantoprazole - Anemia - noted 2/2 chemotherapy, stable DVT: Eliquis Dispo: continued inpatient stay LM for daughter 03/09 & 03/10 Admission and Anticipated Discharge Date Admission Date: February 24, 2024 Subjective Patient doing MUCH better today - she is able to recall being confused/word salad yesterday. Was able to walk to the door twice today with therapy. NO acute complaints, report that she is feeling good today. Agreeable just to stay on cymbalta at this time. Tele - paced 60s Review of Systems Review of Systems: All systems reviewed & are unremarkable except as noted in Subjective Physical Exam Physical Exam: General: No acute distress, nondiaphoretic, well-developed, well-nourished. Sitting up in the chair - appears much better than prior days . Cardiac: Regular rate and rhythm without murmurs gallops or rubs. no LE edema Pulm: clear to ascultation, no wheezing. No respiratory distress. Abdominal: Soft, nontender, nondistended. Neuro: A&O x3. no garbled speech or word finding difficulty. Results & Data Results & Data Vital Signs (Past 12 Hours) Vital Signs Temp Pulse Pulse Resp BP BP Pulse Ox 03/10/24 08:00 97.9 F 60 16 159/74 H 99 03/10/24 07:22 60 03/10/24 03:13 97.7 F 60 18 148/73 H 98 03/10/24 01:48 03/09/24 23:52 60 03/09/24 22:24 98.1 F 59 L 17 146/68 H 97 O2 Del Method 03/10/24 08:00 Room Air 03/10/24 07:22 03/10/24 03:13 Room Air 03/10/24 01:48 Room Air 03/09/24 23:52 03/09/24 22:24 Room Air Laboratory Results UA reviewed POC glucose reviewed PG Care Time/CCT Total # of Minutes Spent Total Time Spent with Patient: Total time spent is greater than 50% in coordination of care (as documented) at patient's floor/unit and/or counseling patient: Coding Level of Care Code 78087 SUB INP/OBS CARE 2/35MIN Diagnoses Multifocal pneumonia J18.9 Altered mental status R41.82 MSSA bacteremia R78.81; B95.61 Breast cancer C50.919 Depression, unspecified depression type F32.9 Depression Type: unspecified (5) Depression Depression Type: unspecified Qualified Code(s): F32.9 - Major depressive disorder, single episode, unspecified
[2024-03-11] MEDS: IBUPROFEN 200 MG TAB PO STA (00:50)
[2024-03-11 07:57] VITALS: PULSE 60; RESP 18
--- NOTE | 2024-03-11 09:08 | Discharge Summary ---
Discharge Summary Date of Service March 11, 2024 Principal Dx & Hospital Course #1 = Principal Diagnosis (1) Multifocal pneumonia: Presented with acute AMS in setting of recent completion of IV antibiotics for MSSA bacteremia at [facility]. On admission, daughter expressed concern about patient receiving too many narcotic medications while at rehab. Aspiration PNA/Multifocal PNA / Large Pleural Effusions / Secondary Immunocompromise a/w Chemotherapy - Patient only oriented to self on arrival, possible infectious encephalopathy -- Metabolic encephalopathy due to aspiration pneumonia - No hx of CHF, prior EF 65-70% 01/13/24 - CXR w/ pulmonary vascular congestion with mild interstitial edema, small pleural effusions with dependent consolidation - Chest CTA: No pulmonary embolism. Dependent airspace consolidations, concerning for multilobar pneumonia/aspiration. Large bilateral pleural effusions. - completed course of zosyn/augmentin. - repeat CXR 03/05 demonstrated stable effusions - patient w/o SOB, if develops, consider repeat CXR/further IV Lasix. Blood pressures have continued to rise with isolated systolic hypertension - continue Doxazosin - Started amlodipine 2.5 mg PO daily 03/02 - tolerating well - PT/OT recommending SNF rehab --> case management following, discharge to [facility] for rehab today (2) Altered mental status: Stroke Evaluation - 12-24 hours of intermittent 'word-salad' and agitation w/o additional focal neurological deficits prior to admission. Workup at that time was largely un remarkable showing her chronic anemia and slight elevation in TSH. only CT head and CTA head/neck were completed / pacemaker and those were unremarkable. EKG without changes. CBC/CMP only remarkable for chronic anemia Patient with repeat episode of word salad - 03/06 thought to be effect from Remeron, psych was consulted and this was changed to abilify - 03/08 evening further word salad and word finding difficulty - CBC and chemistry unremarkable. UA negative. - Head CT without acute findings - Abilify held, encourage PO fluids Patient is MUCH IMPROVED - will d/c further Abilify or Remeron - pt also did not received any oxycodone during stay, at discharge she is asking for it to be ordered for her every 4 hours, I explained that her pain was controlled with tylenol while here and that much oxycodone could be contributing to her altered mental status on arrival (3) MSSA bacteremia: Recent MSSA Bacteremia, completed 6 week course of IV Cefazolin 2g Q8H on 02/24/24 - Previous port removed with planned replacement - PICC removed (4) Breast cancer: Metastatic breast cancer to liver - Localized breast cancer diagnosed 2015 - Metastatic breast cancer with hepatic lesion, ER 100%, diagnosed March 2020 - Chronic anemia in the setting of cancer treatments - Follows with Dr. De Luna at [facility] - last treatment Dec 23 - liposomal doxorubicin (missed sept dose) - I personally discussed with Dr. De Luna, at this point there is plans to do future chemo is patient is able to make a recovery. However, no current chemo scheduled and no chemo therapy to be done while patient is at rehab. - Pt expressed she is not interested in hospice 03/04. Previously referred to Palliative care outpatient and no showed that appointment (5) Depression: Switched back to Duloxetine by PCP 08/2023 - PCP notes: She was previously treated with Vortioxetine, Celexa, buspirone, lorazepam. More depressed with chemo. Daughter and pt requesting med changed, pt reports being more depressed and emotional and not sleeping well. -Cymbalta decreased to 30mg -Trial of Remeron 15mg HS x 1 evening. Patient did not respond well and was d/c Psychiatry evaluated patient and recommended continuing Cymbalta and adding Abilfy 2.5mg. - abilify held due to AMS, patient back to baseline 03/10, d/c abilify Plan Chronic Conditions: - AFib on Eliquis - no evidence of bleeding on CT Head, continue Eliquis - Tachy-Darren Syndrome - ongoing pacer - HLD - continue statin - DM2 - A1c well controlled w/ glargine 7 units HS, BSG checks ordered ACHS - Hypothyroidism - continue levothyroxine. TSH elevated (improved compared to prior), but could be inflammatory response given acute infection. Recommend f/u with PCP after discharge. - GERD - continue pantoprazole - Anemia - noted 2/2 chemotherapy, stable Dispo: discharge to [facility] today LM for daughter 03/09 & 03/10 Notes For Next Care Provider Patient seems sensitive to medications, had word salad and aggitation on arrival (? pneumonia vs opioid use at rehab) - resolved. Did not recieve opioids here. Did have word salad and confusion with remeron and abilify and these were stopped. Remains on cymbalta. pain controlled on tylenol while here but pt insisting that oxycodone is on her med list for rehab follow up with onc after d/c from rehab Recheck TSH in a few weeks Medication Changes From Visit started on low dose amlodopine for HTN Admission HPI Per Admitting Provider Faith is a 74F w/ PMH of metastatic breast cancer, lymphedema w/ lipodystrophy, nephrolithiasis, hypothyroidism, DM2 w/ neuropathy, anemia, memory loss, aortic valve stenosis, AFib on anticoagulation, tachy-darren syndrome, and depression who presents for an acute mental status change and is being admitted for stroke workup. Interval Hx: Admitted 01/12-02/03 for presumed septic shock, infusaport removed as presumed source of MSSA bacteremia. Patient was to remain on Cefazolin 2g IV Q8h for 6 week course (01/12-02/23) per ID recommendations 01/21/24. ED Course: Oxycodone 5 mg PO, Zyprexa 25 mg PO HPI: Patient was somnolent after receiving Zyprexa in the ED to manage aggression/agitation. Daughter noted word salad speech and increased agitation yesterday afternoon (02/22) into today. Patient has been receiving rehabilitation at [facility] since her admission 01/12-02/03. Daughter states that Faith had been in her usual state of health and mentation until the afternoon of 02/22. Daughter notes that there have been no acute falls or injuries. Patient has not complained of fevers, chills, headaches, vision changes, or bowel/bladder changes.Daughter has not received report of such from [facility]. She has continued to take her IV antibiotics for MSSA bacteremia w/o incident, course was scheduled to complete today. Daughter denies any FND. Daughter does make note that patient is anxious about going home as she did not feel that she had progressed at rehab. Daughter independently expressed concern about patient receiving too many narcotic medications at rehab and states that patient 'never required this much before'. Discharge Exam General: No acute distress, nondiaphoretic, well-developed, well-nourished. Sitting up in the chair - appears much better than prior days . Cardiac: Regular rate and rhythm without murmurs gallops or rubs. no LE edema Pulm: clear to ascultation, no wheezing. No respiratory distress. Abdominal: Soft, nontender, nondistended. Neuro: A&O x3. no garbled speech or word finding difficulty. Discharge Plan Discharge Items Patient Disposition: [facility] Reason For Visit: STROKE EVAL Discharge Diagnosis: Pneumonia Activity: Resume your previous activity Activity Comment: work with therapy to get stronger Weightbearing: Full weightbearing Non-emergency contact: Primary Care Provider Call non-emergency contact if: you have any medication questions and your symptoms worsen Follow-up/Referrals: Quinn Lovett MD [Primary Care Provider] - (follow up after discharge from rehab ) Diet: Carb Consistent or DM2 Diet Texture: Easy to Chew Addtl Attending Provider Instructions: Ms. Solorzano, You were [facility] and were found to have pneumonia - you completed a course of antibiotics during your stay and your lung sounds have improved. You had episodes where you had difficulty forming words and were quite confused - we did a stroke workup twice that was unrevealing. It was thought that this was due to medications and we have stopped the offending agents. You have requested that you have your oxycodone at rehab, you did not have any oxycodone while you were here and your pain was well controlled with tylenol. I would continue to use this sparingly, as I am concerned that this was contributing to your confusions on arrival. Recommendations: - Mental health- continue on the duloxetine as you reacted poorly to Remeron and Abilify - High blood pressure - started on low dose amlodipine take this ever morning - ensure that your are staying hydrated - Follow up with Dr. De Luna after discharge from rehab to discuss - follow up with PCP after discharge from rehab Thank you for allowing us to participate in your care. Pascale Piña PA-C Pending Studies at Discharge: No Stand-Alone Forms: My [facility] Skilled Items Patient informed of condition?: Yes DNR: No Discharge Level of Care: Acute rehab Communicable Disease: No Discharge Prognosis: Stable Lines: None Urinary Catheter: No Medications and DC Order Prescriptions: New amlodipine [Norvasc] 5 mg Tablet 2.5 mg PO QAM 30 Days Qty: 15 0RF duloxetine 30 mg Capsule,Delayed Release(Dr/Ec) 30 mg PO QAM 30 Days Qty: 30 1RF Continued (DME) OneTouch Ultra Test Strip See Rx Instructions .Route Qty: 100 5RF Rx Instructions: Test BS 3x daily cyanocobalamin (vitamin B-12) 1,000 mcg/mL kit 1,000 mcg IM MONTHLY Qty: 1 3RF Rx Instructions: ON THE 20TH (DME) lancets [OneTouch Delica Plus Lancet] 33 gauge misc See Rx Instructions .Route Qty: 300 3RF Rx Instructions: use to check bsg 3 times daily albuterol sulfate 90 mcg/actuation HFA aerosol inhaler 2 puff INHALATION Q4 PRN (Reason: Shortness Of Breath Or Wheezing) Qty: 8.5 5RF (DME) pen needle, diabetic [Easy Comfort Pen [place]] 32 gauge x 5/32" needle See Rx Instructions .Route Qty: 100 3RF Rx Instructions: As directed Eliquis 5 mg tablet 5 mg PO BID Qty: 60 5RF pantoprazole [Protonix] 40 mg tablet,delayed release (DR/EC) 40 mg PO QAM Qty: 90 3RF atorvastatin 40 mg tablet 40 mg PO HS Qty: 90 3RF phenazopyridine 95 mg Tablet 95 mg PO Q8 PRN (Reason: BLADDER PAIN) oxycodone 10 mg tablet 10 mg PO Q4 PRN (Reason: Pain 9-10) acetaminophen [Tylenol Extra Strength] 500 mg tablet 1,000 mg PO Q8 MDD 3G PRN (Reason: Fever Or Pain) Rx Instructions: USE FOR PAIN 1-8 OR FEVER Artificial Tears (PF) Dropperette 2 drp OPB Q6 PRN (Reason: Dry Eye(S)) doxazosin 2 mg tablet 2 mg PO QAM levothyroxine 100 mcg Tablet 100 mcg PO DAILY melatonin 10 mg Tablet 10 mg PO HS insulin glargine [Lantus U-100 Insulin] 100 unit/mL solution 7 unit subcut HS polyethylene glycol 3350 [Miralax] 17 gram powder in packet 17 g PO QAM nystatin 100,000 unit/gram powder 1 applic topical QPM Rx Instructions: APPLY TO SKIN FOLDS lidocaine 4 % Adhesive Patch,Medicated 1 patch TOPICAL DAILY Rx Instructions: APPLY TO MID BACK EVERY DAY ON IN AM OFF IN PM tobramycin 0.3 % Drops 2 drp OPHTHALMIC (EYE) QID Rx Instructions: START 02/19/24 FOR 10 DAYS Biofreeze (menthol) 10 % Cream 1 applic TOPICAL QS Rx Instructions: APPLY TO RIGHT SHOULDER sennosides [Senokot] 8.6 mg Tablet 17.2 mg PO HS Qty: 7 0RF Discontinued duloxetine [Cymbalta] 60 mg capsule,delayed release(DR/EC) 60 mg PO QAM cefazolin 2 gram recon soln 2 g IV Q8H Rx Instructions: last dose 02/24/24 5319 sodium chloride 0.9 % (flush) [Saline Flush] Syringe 10 ml IV QS Rx Instructions: administer before and after IV drug administration as part of [facility] protocol heparin lock flush (porcine) [heparin lock flush] 10 unit/mL Solution 10 unit IV DAILY Rx Instructions: administer after IV drug administration as part of [facility] protocol heparin lock flush (porcine) 5 ml IV QS Discharge Orders: Discharge Order (Routine); Ordered 03/11/24 Ordered By: Pascale Piña Admission Data Admit Date/Time: 02/24/24 22:23 Attending Provider: Curtis Zamorano Admit Provider: Juanito Wall Primary Care Provider: Quinn Lovett Other Providers: [facility] [place]; Brandon Lockwood; Belkis Bhatia; Spencer Springer; Nathan Veliz Jr; Jenny Lugo; Shirley Cleveland; Michael Doe; Crystal Rodas Other Interventions: Discharge Summary Assessment (RN) Last Done: 03/11/24 12:12 Hospital Stay Data Consultations 02/24/24 19:17 ED Decision to Admit Stat 03/06/24 12:38 Consult Psychiatry Routine Diagnostic Imagining Performed Head CT 02/24/24 15:21 CT head/brain wo con CLINICAL HISTORY: AMS, ?fall Technique: Contiguous axial CT images of the head were acquired from the base of the skull to the vertex without intravenous contrast administration. Images were viewed in brain, subdural and bone windows. Automated dose lowering techniques and/or adjustment according to patient size were utilized for this exam. Comparison: Comparison is made to CT head 12/26/2023 Findings: The ventricles, basal cisterns, and cerebral sulci are normal. There is no acute intracranial hemorrhage or evidence of acute territorial infarction. Neither mass effect, shift of the midline structures, nor abnormal extra-axial fluid collections are shown. Imaged portions of the paranasal sinuses and mastoid air cells are clear. The orbits appear normal. There are no acute fractures of the calvaria or scalp swelling. Impression: No acute intracranial hemorrhage, no evidence of acute territorial infarction or other acute intracranial disease process. ACT 112: Negative or not required by law. Electronically signed by: Emre Riojas M.D. 02/24/2024 4:17 PM Chest X-Ray 02/24/24 15:22 SINGLE VIEW CHEST CLINICAL HISTORY: Generalized weakness FINDINGS: An AP, portable, upright chest radiograph is compared to study dated 01/22/2024. The examination is degraded by portable technique and apical lordotic positioning. A right-sided PICC line is unchanged in position, as is a 2-lead cardiac pacemaker. The heart is enlarged and noting atherosclerotic calcification of the thoracic aorta. There is pulmonary vascular congestion with mild interstitial edema. There are small pleural effusions with dependent consolidation. No pneumothorax is seen. The bony thorax is grossly intact. A left shoulder arthroplasty is in place. Advanced arthritic changes noted in the right shoulder and spine. Lumbar fusion hardware is partially imaged. Cholecystectomy clips are noted in the right upper quadrant. IMPRESSION: 1. Cardiomegaly and cardiac pacemaker with evidence of congestive failure and pulmonary edema. 2. Small pleural effusions with dependent consolidation. ACT 112: Negative or not required by law. Electronically signed by: Noe Carrillo M.D. 02/24/2024 4:44 PM Head CTA 02/24/24 22:17 Exam(s): CTA HEAD With Contrast IV Amt: 118 ml optiray 320 EXAM: CT Angiography Head With Intravenous Contrast CLINICAL HISTORY: Reason for exam: neuro deficit, acute stroke suspected. TECHNIQUE: Axial computed tomographic angiography images of the head with intravenous contrast. CTDI is 14.25 mGy and DLP is 7.12 mGy-cm. Automated exposure control was utilized for the study. A dose lowering technique was utilized adhering to the principles of ALARA. MIP reconstructed images were created and reviewed. CONTRAST: Patient received 118 ml optiray 320 of IV contrast COMPARISON: No relevant prior studies available. FINDINGS: The dural venous sinuses are patent. Right internal carotid artery: No acute findings. Intracranial segment is patent with no significant stenosis. No aneurysm. Right anterior cerebral artery: Unremarkable. No occlusion or significant stenosis. No aneurysm. Right middle cerebral artery: Unremarkable. No occlusion or significant stenosis. No aneurysm. Right posterior cerebral artery: Unremarkable. No occlusion or significant stenosis. No aneurysm. Right vertebral artery: Unremarkable as visualized. Left internal carotid artery: No acute findings. Intracranial segment is patent with no significant stenosis. No aneurysm. Left anterior cerebral artery: Unremarkable. No occlusion or significant stenosis. No aneurysm. Left middle cerebral artery: Unremarkable. No occlusion or significant stenosis. No aneurysm. Left posterior cerebral artery: Unremarkable. No occlusion or significant stenosis. No aneurysm. Left vertebral artery: Unremarkable as visualized. Basilar artery: Unremarkable. No occlusion or significant stenosis. No aneurysm. IMPRESSION: Negative CT angiogram of the head. Electronically signed by: Elizabeth Andrade MD 02/25/24 03:16 AM Neck CTA 02/24/24 22:17 Exam(s): CTA NECK With Contrast IV Amt: 118 ml optiray 320 EXAM: CT Angiography Neck With Intravenous Contrast CLINICAL HISTORY: Reason for exam: neuro deficit, acute stroke suspected. TECHNIQUE: Routine carotid CT angiography protocol was performed with intravenous contrast. NASCET criteria using the distal ICAs for comparison were used for evaluation of stenoses. CTDI is 14.57 mGy and DLP is 740.26 mGy-cm. Automated exposure control was utilized for the study. A dose lowering technique was utilized adhering to the principles of ALARA. MIP reconstructed images were created and reviewed. CONTRAST: Patient received 118 ml optiray 320 of IV contrast COMPARISON: None. FINDINGS: This study is limited secondary to motion artifact. VASCULATURE: Right common carotid artery: Unremarkable. No occlusion or significant stenosis. No dissection. Right internal carotid artery: Unremarkable. Extracranial segment is patent with no occlusion or significant stenosis. No dissection. Right external carotid artery: Unremarkable. No occlusion. Right vertebral artery: Unremarkable. No occlusion or significant stenosis. No dissection. Left common carotid artery: Unremarkable. No occlusion or significant stenosis. No dissection. Left internal carotid artery: Unremarkable. Extracranial segment is patent with no occlusion or significant stenosis. No dissection. Left external carotid artery: Unremarkable. No occlusion. Left vertebral artery: Unremarkable. No occlusion or significant stenosis. No dissection. NECK: Bones/joints: Unremarkable. No acute fracture. Soft tissues: Unremarkable. Lung apices: Bronchitis with pneumonitis and large bilateral pleural effusions. CAROTID STENOSIS REFERENCE USING NASCET CRITERIA: % ICA stenosis = (1 - narrowest ICA diameter/diameter of distal cervical ICA) x 100. Mild - <50% stenosis. Moderate - 50-69% stenosis. Severe - 70-94% stenosis. Near occlusion - 95-99% stenosis. Occluded - 100% stenosis. IMPRESSION: Negative CTA neck. Electronically signed by: Elizabeth Andrade MD 02/25/24 03:13 AM Chest CTA 02/24/24 23:02 Exam(s): CTA CHEST IV Amt: 118 ml optiray 320 EXAM: CT Angiography Chest With Intravenous Contrast CLINICAL HISTORY: Reason for exam: Pulm embolism r/o/pleural effusions. TECHNIQUE: Axial computed tomographic angiography images of the chest with intravenous contrast. CTDI is 29 mGy and DLP is 756.81 mGy-cm. Automated exposure control was utilized for the study. A dose lowering technique was utilized adhering to the principles of ALARA. MIP reconstructed images were created and reviewed. COMPARISON: No relevant prior studies available. FINDINGS: Pulmonary arteries: Unremarkable. No pulmonary embolism. Aorta: Atherosclerotic changes of the aorta. No thoracic aortic aneurysm. Lungs: Dependent airspace consolidations, concerning for multilobar pneumonia/aspiration. Large bilateral pleural effusions. Pleural space: See above. Heart: Unremarkable. No cardiomegaly. No significant pericardial effusion. No evidence of RV dysfunction. Bones/joints: Degenerative changes of the spine. No acute fracture. No dislocation. Soft tissues: Anasarca. Lymph nodes: Unremarkable. No enlarged lymph nodes. Tubes, lines and devices: Pacemaker leads. IMPRESSION: 1. No pulmonary embolism. 2. Dependent airspace consolidations, concerning for multilobar pneumonia/aspiration. Large bilateral pleural effusions. Electronically signed by: Sampson Cowart MD 02/25/24 00:30 AM Chest X-Ray 03/04/24 08:00 XR chest 1V portable HISTORY: 74 years-old Female recheck effusions acute shortness of breath with pleural effusions COMPARISON: CTA chest 02/24/2024 TECHNIQUE: AP view of the chest FINDINGS: Cardiac silhouette is enlarged. Dual-lead left subclavian pacer. A right-sided PICC distal tip projects over the right atrium. Atherosclerosis of the aorta. No pneumothorax. Pulmonary vascular congestion with interstitial coarsening. Unchanged moderate layering pleural effusions with bibasilar consolidation. Left shoulder arthroplasty. Severe right glenohumeral osteoarthritis. IMPRESSION: 1. Cardiomegaly with unchanged interstitial pulmonary edema. 2. Stable moderate layering pleural effusions with bibasilar c onsolidation/atelectasis. ACT 112: Negative or not required by law. The above report was generated using voice recognition software. It may contain grammatical, syntax or spelling errors. Electronically signed by: Jeremy Batres M.D. 03/04/2024 8:08 AM KUB X-Ray 03/06/24 11:17 XR KUB/Abdomen 1 view CLINICAL HISTORY: no BM x 3 days, abdominal pain TECHNIQUE: 1 view of the abdomen was obtained. Comparison: None available at the time of this dictation. FINDINGS: Lung bases are unremarkable. Posterior fixation hardware is seen in the lumbar spine and there are bilateral hip arthroplasties. The bowel gas pattern is nonobstructive. A moderate amount of stool is noted within the large bowel. IMPRESSION: Moderate stool burden without evidence of fecal impaction. ACT 112: Negative or not required by law. Electronically signed by: Emre Riojas M.D. 03/06/2024 1:[address] 03/08/24 19:37 Exam(s): CT HEAD Without Contrast EXAM: CT Head Without Intravenous Contrast CLINICAL HISTORY: Reason for exam: abnormal speech. TECHNIQUE: Axial computed tomography images of the head/brain without intravenous contrast. Automated exposure control was utilized for the study. A dose lowering technique was utilized adhering to the principles of ALARA. COMPARISON: Prior head CT from February 24, 2024. FINDINGS: The study is limited secondary to motion artifact. Brain: Unremarkable. No hemorrhage. Moderate to advanced nonspecific white matter changes.. No edema. Ventricles: Moderate ventriculomegaly. Bones/joints: Unremarkable. No acute fracture. Soft tissues: Unremarkable. Sinuses: Unremarkable as visualized. No acute sinusitis. Mastoid air cells: Unremarkable as visualized. No mastoid effusion. IMPRESSION: No evidence of acute intracranial pathology. Electronically signed by: Elizabeth Andrade MD 03/09/24 01:58 AM Pending Results Patient Have Any Pending Studies at Discharge: No Discharge Instructions Given to Patient (Per Discharging Provider) Ms. Solorzano, You were hospitalized [facility] and were found to have pneumonia - you completed a course of antibiotics during your stay and your lung sounds have improved. You had episodes where you had difficulty forming words and were quite confused - we did a stroke workup twice that was unrevealing. It was thought that this was due to medications and we have stopped the offending agents. You have requested that you have your oxycodone at rehab, you did not have any oxycodone while you were here and your pain was well controlled with tylenol. I would continue to use this sparingly, as I am concerned that this was contributing to your confusions on arrival. Recommendations: - Mental health- continue on the duloxetine as you reacted poorly to Remeron and Abilify - High blood pressure - started on low dose amlodipine take this ever morning - ensure that your are staying hydrated - Follow up with Dr. De Luna after discharge from rehab to discuss - follow up with PCP after discharge from rehab Thank you for allowing us to participate in your care. Pascale Piña PA-C Total Time Total Time Spent Total Time Spent (In Minutes): Time spent day of discharge 38 minutes including direct patient care, medication reconciliation, documentation, review of labs and images, and coordination of care. Coding Level of Care Code 68821 INP/OBS DISCH >30 MIN Diagnoses Multifocal pneumonia J18.9 Altered mental status R41.82 MSSA bacteremia R78.81; B95.61 Breast cancer C50.919 Depression, unspecified depression type F32.9 Depression Type: unspecified
[2024-03-11 11:45] VITALS: TEMP 97.7; O2SAT 99
[2024-03-11 12:15] VITALS: BP 145/53
== END 2024-03-11 13:15 | DRG 177 ==
LOC: ED 14:40 → SUATTDRO 22:23 → 2W 22:23
DX: I11.0 Hypertensive heart disease with heart failure; D84.821 Immunodeficiency due to drugs; T45.1X5A Adverse effect of antineoplastic and immunosuppressive drugs, initial encounter; R47.89 Other speech disturbances; Z87.440 Personal history of urinary (tract) infections; R30.0 Dysuria; C50.919 Malignant neoplasm of unspecified site of unspecified female breast; I50.9 Heart failure, unspecified; Z79.4 Long term (current) use of insulin; J69.0 Pneumonitis due to inhalation of food and vomit; I35.0 Nonrheumatic aortic (valve) stenosis; E03.9 Hypothyroidism, unspecified; E83.42 Hypomagnesemia; Z88.8 Allergy status to other drugs, medicaments and biological substances; T43.025A Adverse effect of tetracyclic antidepressants, initial encounter; F33.2 Major depressive disorder, recurrent severe without psychotic features; Z79.890 Hormone replacement therapy; E78.5 Hyperlipidemia, unspecified; C78.7 Secondary malignant neoplasm of liver and intrahepatic bile duct; R45.851 Suicidal ideations; E88.09 Other disorders of plasma-protein metabolism, not elsewhere classified; I49.5 Sick sinus syndrome; Z95.0 Presence of cardiac pacemaker; Z86.19 Personal history of other infectious and parasitic diseases; D64.81 Anemia due to antineoplastic chemotherapy; F41.9 Anxiety disorder, unspecified; E11.40 Type 2 diabetes mellitus with diabetic neuropathy, unspecified; G93.41 Metabolic encephalopathy; Z17.0 Estrogen receptor positive status [ER+]; R94.6 Abnormal results of thyroid function studies; I48.91 Unspecified atrial fibrillation; Z79.899 Other long term (current) drug therapy; K21.9 Gastro-esophageal reflux disease without esophagitis

== ENCOUNTER 2024-08-19 12:48 | Inpatient (IN) ==
--- NOTE | 2024-08-19 14:22 | XRay Report ---
XR chest 1V portable CLINICAL HISTORY: Chest pain, nonspecific COMPARISON STUDY: 06/11/2024 FINDINGS: A mild, generalized reticular pulmonary pattern is developed. There is minimal blunting of the costophrenic angles. There is slight perihilar haziness. The heart remains enlarged. There is munir vation of the left mainstem bronchus. The left cardiac border is straightened with increased retrocar diac density suggesting either partial atelectasis or infiltrate in the left lower lobe. Dual-lead pa cemaker remains in place. MediPort catheter tip remains in the superior vena cava. IMPRESSION: Suspect mild pulmonary edema. Left basilar infiltrate versus partial atelectasis in the left lower lobe. ACT 112: Negative or not required by law. Electronically signed by: Malka Leung M.D. 08/19/2024 2:20 PM
[2024-08-19 14:29] LABS: Basophils # (auto) 0.05 K/uL (0.00-0.20); Basophils % (auto) 0.3 %; Eosinophils # (auto) 0.04 K/uL (0.00-0.50); Eosinophils % (auto) 0.2 %; Hematocrit (blood only) 31.6 % (37.0-47.0); Hemoglobin 10.3 g/dl (12.0-16.0); Immature Granulocytes # (auto) 0.14 K/uL (0.01-0.20); Immature Granulocytes % (auto) 0.7 %; Lymphocytes % (auto) 4.7 %; Mean Corpuscular Hemoglobin 31.1 pg (25.0-34.0); Mean Corpuscular Hgb Conc 32.6 g/dL (32.0-36.0); Mean Corpuscular Volume 95.5 fL (80.0-100.0); Mean Platelet Volume 11.3 fL (9.4-12.4); Monocytes # (auto) 2.13 K/uL (0.11-0.59); Neutrophils # (auto) 16.09 K/uL (1.40-6.50); Neutrophils % (auto) 83.1 %; Platelet Count 169 K/uL (130-400); Red Blood Count 3.31 M/uL (4.20-5.40); White Blood Count 19.35 K/ul (4.8-10.8)
[2024-08-19] MEDS ORDERED: AZITHROMYCIN 500 MG/255 ML BAG IV ONE (14:42)
[2024-08-19 14:46] LABS: Albumin Globulin Ratio 1.5 (0.9-2); Albumin Level 3.8 gm/dl (3.4-5.0); BUN Creatinine Ratio 34.3 (10-20); Bilirubin,Total 0.6 mg/dl (0.2-1.0); Creatinine Clr Calc Pharmacy 67.1 ml/min; Globulin 2.6 gm/dl (2.5-4.0); Potassium 3.1 mmol/L (3.5-5.1); Total Protein 6.4 gm/dl (6.0-8.3)
[2024-08-19] MEDS: cefTRIAXone SODIUM 1,000 MG/50 ML BAG IV STA (14:50)
[2024-08-19] MEDS: AZITHROMYCIN 250 MG TAB PO ONE (14:52)
[2024-08-19 14:53] LABS: Troponin I High Sensitivity 29.7 pg/ml (0-14)
[2024-08-19 14:57] LABS: INR 1.2 (0.9-1.1); Partial Thromboplastin Ratio 1.3; Partial Thromboplastin Time 34 Seconds (21-31); Prothrombin Time 12.7 Seconds (9.0-12.0)
--- NOTE | 2024-08-19 15:06 | Emergency Department Note ---
ED Visit Note I was consulted by the Advanced Practice Provider HUANG Dooley. I performed a substantive portion of the visit including all aspects of medical decision making. Patient presented had associated pneumonia and was subsequently admitted to the medicine service. .
[2024-08-19 15:20] LABS: Adenovirus PCR Not Detected (NotDetected); Bordetella parapertussis PCR Not Detected (NotDetected); Bordetella pertussis PCR Not Detected (NotDetected); Chlamydia pneumoniae PCR Not Detected (NotDetected); Coronavirus 229E PCR Not Detected (NotDetected); Coronavirus CoV-2 (COVID19)PCR Not Detected (NotDetected); Coronavirus HKU1 PCR Not Detected (NotDetected); Coronavirus NL63 PCR Not Detected (NotDetected); Coronavirus OC43PCR Not Detected (NotDetected); Human Metapneumovirus PCR Not Detected (NotDetected); Influenza A PCR Not Detected (NotDetected); Influenza B PCR Not Detected (NotDetected); Mycoplasma pneumoniae PCR Not Detected (NotDetected); Parainfluenza Virus 1 PCR Not Detected (NotDetected); Parainfluenza Virus 2 PCR Not Detected (NotDetected); Parainfluenza Virus 3 PCR Not Detected (NotDetected); Parainfluenza Virus 4 PCR Not Detected (NotDetected); Respiratory Syncytial VirusPCR Not Detected (NotDetected); Rhinovirus/Enterovirus PCR Not Detected (NotDetected)
--- NOTE | 2024-08-19 15:41 | History & Physical Report ---
Date of Service August 19, 2024 Assessment & Plan (1) Pneumonia: Plan: Pneumonia in a 74 yo female with positive chest xray and leukocytosis Concern for possible sepsis Lung exam was beign though did have low breath sounds. will conitnue antibitics and trend leukocytosis MRSA was positive in the past, will hold MRS coverage for now. Only ~30% positive predictive value. Plan Atrial fibrillation: pt is chronically anticoagulated with Eliquis, will continue troponin ranged from 56 to 61, suspect demand ischemia in face of sepsis, not suspecting ACS Diabetes type 2, controlled: glycemic consult placed Breast cancer: - Metastatic breast cancer to liver - Localized breast cancer diagnosed 2015 - Metastatic breast cancer with hepatic lesion, ER 100%, diagnosed March 2020 - Chronic anemia in the setting of cancer treatments - Follows with Dr. De Luna at [facility] History of Present Illness Chief Complaint: SOB. Primary Care Provider: Lu Mcintosh MD Faith Solorzano is a 74yo female with history of metastatic breast carcinoma on chemotherapy presenting with SOB that has not improved over past few weeks.. Patient is complaiing about SOB on exertion, generalized weakness, ongestion and chest pain. Patient reports for the past month she has been having sporadic episodes of SOB which have been treated with steroids and antibiotics. She was seen on 07/30 for cough and wheezing at the PCP's office. She reports this did not help. She also tried a steroid taper but she continues to feel SOB. Patient denies any sick contacts. ROS: edema in lower extremities which is chronic. Allergies Allergy/AdvReac Type Severity Reaction Status Date / Time metformin AdvReac Intermediate Restlessnes Verified 08/16/24 13:04 s Home Medications Medication Instructions Recorded Confirmed Type blood sugar diagnostic (ivi.ruTouch #100 ea 10/07/22 08/19/24 Rx Ultra Test strips) cyanocobalamin (vitamin B-12) 1,000 mcg IM MONTHLY #1 ea 10/07/22 08/19/24 Rx 1,000 mcg/mL injection kit ivi.ruTouch Delica Plus Lancet 33 #300 ea 01/09/23 08/19/24 Rx gauge (lancets) pen needle, diabetic 32 gauge x #100 ea 06/12/23 08/19/24 Rx 5/32" (Easy Comfort Pen [place]) atorvastatin 40 mg tablet (Lipitor) 40 mg PO HS 06/07/24 08/19/24 History cholecalciferol (vitamin D3) 50 50 mcg PO QAM 06/07/24 08/19/24 History mcg (2,000 unit) capsule (Vitamin D3) diltiazem HCl 360 mg 360 mg PO QAM 06/07/24 08/19/24 History capsule,extended release 24 hr insulin glargine 100 unit/mL (3 15 unit subcut QPM 06/07/24 08/19/24 History mL) subcutaneous pen multivitamin 1 tab PO QAM 06/07/24 08/19/24 History tramadol 50 mg tablet 50 mg PO Q6 PRN Pain 06/07/24 08/19/24 History apixaban 5 mg tablet (Eliquis) 5 mg PO BID #60 tabs 06/29/24 08/19/24 Rx diphenoxylate-atropine 2.5 1 tab PO BID PRN Diarrhea #30 tabs 07/23/24 08/19/24 Rx mg-0.025 mg tablet (Lomotil) inhalational spacing device #1 ea 07/23/24 08/19/24 Rx ondansetron HCl 8 mg tablet 8 mg PO Q8H 07/23/24 08/19/24 History prochlorperazine maleate 10 mg 10 mg PO Q6H PRN Nausea And 07/23/24 08/19/24 History tablet Vomiting methenamine hippurate 1 gram tablet 1 g PO BID #60 tabs 07/27/24 08/19/24 Rx vibegron 75 mg tablet (Gemtesa) 75 mg PO DAILY #30 tabs 07/27/24 08/19/24 Rx albuterol sulfate 90 mcg/actuation 2 puff inhalation Q4 PRN Shortness 07/30/24 08/19/24 Rx aerosol inhaler Of Breath Or Wheezing #8.5 grams levothyroxine 75 mcg tablet 75 mcg PO DAILY #90 tabs 08/03/24 08/19/24 Rx furosemide 20 mg tablet 20 mg PO DAILY #90 tabs 08/09/24 08/19/24 Rx losartan 25 mg tablet 25 mg PO QAM #90 tabs 08/10/24 08/19/24 Rx duloxetine 60 mg capsule,delayed 120 mg (2 x 60 mg) PO QAM 90 days 08/16/24 08/19/24 Rx release (Cymbalta) #180 caps calcium carbonate (Calcium 600) 600 mg PO QAM 08/19/24 08/19/24 History naratriptan 2.5 mg tablet 2.5 mg PO ONCE PRN DIRECTED 08/19/24 08/19/24 History Past Med/Surg History Problem List Weakness (Acute) Elevated troponin (Acute) Pneumonia (Acute) Urgency incontinence Intermittent palpitations Pancytopenia Degeneration of cervical intervertebral disc Cervical strain (Acute) Bilateral edema of lower extremity (Acute) Frequent falls (Acute) Lymphedema Palliative care by specialist Bilateral nephrolithiasis Breast skin changes Microalbuminuria Pain due to interstitial cystitis Chronic diarrhea Recurrent UTI (urinary tract infection) MRSA (methicillin resistant staph aureus) culture positive (Acute) Diabetes type 2, controlled Carpal tunnel syndrome on both sides with surgical intervention Vitamin D deficiency Leukopenia (Acute) Memory loss Metastatic breast cancer Diabetic neuropathy pt denies Hyperglobulinemia Anticoagulant long-term use Tachy-monica syndrome Atrial fibrillation follows with Dr Ramires Hypothyroidism Vitamin B12 deficiency (Chronic) Positive [place]EPHANIA (antinuclear antibody) (Chronic) Lumbar radiculopathy (Chronic) Lipodystrophy (Chronic) Gait disturbance (Chronic) Constipation (Chronic) Arthritis (Chronic) Medical History Memory loss Migraine Recurrent UTI Hx MRSA infection Pt unsure "I had a blood infection" as per patient ( MSSA bacteremia) Hypothyroidism Gait disturbance Walker Frequent falls "Therapy doesn't help me. I am getting fitted for a brace this week to help with my leg weakness." as per patient most recent fall 06/05/24 History of kidney stones passed on own Edema "Sometimes, I don't know what it's from" as per patient Atrial fibrillation LISYG Cardio Ike On Eliquis MDD (major depressive disorder), recurrent severe, without psychosis Difficulty with speech Anxiety Depression Septic shock 01/12/24 [facility] IP s/p port removal MSSA bacteremia History of- Jan 2024- admitted to [facility]- treated with abx Anticoagulant long-term use Eliquis Infected venous access port hx patient states only ever had 1 and removed d/t infection- provider notes has had 2 and removed both times d/t infection History of blood transfusion Generalized weakness Lung nodules monitoring Urinary frequency Neuropathy Aortic stenosis Mild aortic stenosis (AV MG 16.7mmHg; AV peak velocity 2.70 m/s) per 06/03/24 ECHO - Dr Ramires Diabetes mellitus, type 2 IDDM Degenerative disc disease Hx of cardiac pacemaker Implanted 2019 (tachy-monica syndrome), [employer] device Follows with Dr. Ramires Liver mass PET scan shows 2.5 right hepatic lobe mass consistent with known hepatic metastasis - CCP - reason for port placement Anemia h/o blood transfusions Infiltrating ductal carcinoma of left breast Initial Dx 2015- s/p lumpectomy, XRT and anastrozole Metastatic breast cancer 03/2020, follows with [facility] Peripheral neuropathy Hands (B/L CTS) Obstructive sleep apnea "Resolved" s/p gastric bypass (? retested) Hypercholesterolemia Gastroesophageal reflux disease controlled, stable per pt Chronic pain Cervical spine disease Limited ROM / Painful as per patient Surgical History Port-A-Cath in place (06/11/24) Insertion MRI Compatible Access Port Right Internal Jugular(Right) - Kaushal Shah MD, FACS History of revision of total replacement of right knee joint Right knee TKA revision with spacer (07/11/2021): SAB at L3-4 (x2 attempts) + PNB at [facility]. No issues noted per post-op anesthesia progress note. History of lumpectomy of left breast Status post placement of cardiac pacemaker 2019 [employer] - [facility] [place] [facility] [place] Ramires H/O breast biopsy (05/29/23) Skin, left breast, 2 punch biopsies: In office procedure Dr. Alvarez - Fibrosing dermatitis. - See comment Status post revision of total replacement of right knee History of removal of Port-a-Cath (01/11/22) Infected port right anterior chest removed Dr. Shah History of carpal tunnel surgery of left wrist 06/2021 History of carpal tunnel surgery of right wrist Port-A-Cath in place hx - 05/2020 since removed d/t infection at port 12/2021 *hx patient states only ever had 1 and removed d/t infection- provider notes has had 2 and removed both times d/t infection History of colonoscopy (2022) History of evacuation of hematoma Hematoma right breast and right chest 08/31/13 Dr. Shah H/O bilateral hip replacements Status post repair of ventral hernia History of total knee arthroplasty Bilateral Status post total abdominal hysterectomy and bilateral salpingo-oophorectomy Status post lumbar spine surgery for decompression of spinal cord hardware present Status post panniculectomy History of section x1 Status post laparoscopic cholecystectomy Status post gastric bypass for obesity Status post arthroscopy of left shoulder Status post appendectomy Family History Unknown Breast cancer Emphysema lung Mother Diabetes Heart disease Father Heart disease Other No family history of adverse response to anesthesia Denies family history of Ovarian cancer Prostate cancer Coronary heart disease Colorectal cancer Social History Smoking Status: Former smoker Tobacco Type: Cigarettes Age Started Using Tobacco: 17; Age Quit Using Tobacco: 59; packs per day: 1; Second Hand Exposure: No; Do You Dip or Chew Tobacco: No; Hx Alcohol Use: No Hx Substance Use: No Preferred Language: [place]al[place] Communication Ability: Effective Visual Impairment: No Limitations Hearing Ability: Normal Stack Supervisor Required: No Beliefs That Will Affect Care: None marital status: Current Living Situation: Spouse Current Living Situation Comment: [facility] current occupational status: retired Other Information That Helps Us Care for You: No Feels Safe at Home: Yes Safety Concerns: Feels Safe At This Time Childhood Exposure to Second-Hand Smoke: Yes Diet: diabetic caffeine: Yes Dental Care, Regularly: No Physical Activity Frequency: 1-2 Times per Week Seatbelt Use: always Sunscreen Use: No Assistive Devices: Walker and Other Assistive Devices Comment: shower chair Review of Systems Constitutional: no fever and no body aches Eyes: no blind spots Ear, Nose, Mouth, Throat: no ear pain Respiratory: + cough, + change in sputum and + dyspne a Cardiovascular: + chest pain Gastrointestinal: no abdominal pain Musculoskeletal: no back pain and no loss of height Integumentary: no acne Neurologic: no gait abnormality Psychiatric: no behavioral changes Endocrine: no fatigue Hematologic / Lymphatic: no easy bleeding Allergy / Immunological: no GI upset with certain foods Physical Exam Physical Exam: General: Ill appearing female in NAD Skin:lower extremity edema HEENT: NC/AT, PERRL, EOMI Heart: +S1/S2, irregular, paced, no m/r/g Lungs: decreased breath sounds, but no wheezing or rales Abd: +BS, soft, NT/ND, no masses/organomegaly/ascites Ext: warm, no edema Neuro: grossly nonfocal. Results & Data Results & Data Vital Signs (Past 12 Hours) Vital Signs Temp Pulse Pulse Resp BP BP Pulse Ox 08/19/24 14:15 60 16 95 08/19/24 14:15 08/19/24 14:15 60 16 197/80 H 95 08/19/24 14:00 65 08/19/24 13:10 36.8 C 64 20 175/77 H 96 O2 Del Method 08/19/24 14:15 Room Air 08/19/24 14:15 Room Air 08/19/24 14:15 Room Air 08/19/24 14:00 08/19/24 13:10 Room Air PG Care Time/CCT Total # of Minutes Spent Total Time Spent with Patient: Total time spent is greater than 50% in coordination of care (as documented) at patient's floor/unit and/or counseling patient: Coding Level of Care Code 23945 INT INP/OBS CARE 75MIN Diagnoses Pneumonia J18.9
--- NOTE | 2024-08-19 15:51 | Emergency Department Note ---
ED Provider Note History of Present Illness Chief Complaint: Illness Stated Complaint: CHEST PAIN/RIB PAIN, FALLS, WEAKNESS, EDEMA/FLUID Time Seen by Provider: 08/19/24 14:09 Source: patient Mode of arrival: ambulatory Limitations: no limitations Patient is a 74-year-old female who presents to the emergency department with complaints of shortness of breath, generalized weakness, congestion, chest pain and edema in her bilateral lower extremities. Patient states that she is concerned that she could have pneumonia as she has not felt well for approximately a week. Patient also notes a history of edema in her bilateral lower extremities, reports taking Lasix daily but does not feel that it is working right now. Home Medications Medication Instructions Recorded Confirmed Type blood sugar diagnostic (OneTouch #100 ea 10/07/22 08/19/24 Rx Ultra Test strips) cyanocobalamin (vitamin B-12) 1,000 mcg IM MONTHLY #1 ea 10/07/22 08/19/24 Rx 1,000 mcg/mL injection kit AngstroTouch Delica Plus Lancet 33 #300 ea 01/09/23 08/19/24 Rx gauge (lancets) pen needle, diabetic 32 gauge x #100 ea 06/12/23 08/19/24 Rx 5/32" (Easy Comfort Pen [place]) atorvastatin 40 mg tablet (Lipitor) 40 mg PO HS 06/07/24 08/19/24 History cholecalciferol (vitamin D3) 50 50 mcg PO QAM 06/07/24 08/19/24 History mcg (2,000 unit) capsule (Vitamin D3) diltiazem HCl 360 mg 360 mg PO QAM 06/07/24 08/19/24 History capsule,extended release 24 hr insulin glargine 100 unit/mL (3 15 unit subcut QPM 06/07/24 08/19/24 History mL) subcutaneous pen multivitamin 1 tab PO QAM 06/07/24 08/19/24 History tramadol 50 mg tablet 50 mg PO Q6 PRN Pain 06/07/24 08/19/24 History apixaban 5 mg tablet (Eliquis) 5 mg PO BID #60 tabs 06/29/24 08/19/24 Rx diphenoxylate-atropine 2.5 1 tab PO BID PRN Diarrhea #30 tabs 07/23/24 08/19/24 Rx mg-0.025 mg tablet (Lomotil) inhalational spacing device #1 ea 07/23/24 08/19/24 Rx ondansetron HCl 8 mg tablet 8 mg PO Q8H 07/23/24 08/19/24 History prochlorperazine maleate 10 mg 10 mg PO Q6H PRN Nausea And 07/23/24 08/19/24 History tablet Vomiting methenamine hippurate 1 gram tablet 1 g PO BID #60 tabs 07/27/24 08/19/24 Rx vibegron 75 mg tablet (Gemtesa) 75 mg PO DAILY #30 tabs 07/27/24 08/19/24 Rx albuterol sulfate 90 mcg/actuation 2 puff inhalation Q4 PRN Shortness 07/30/24 08/19/24 Rx aerosol inhaler Of Breath Or Wheezing #8.5 grams levothyroxine 75 mcg tablet 75 mcg PO DAILY #90 tabs 08/03/24 08/19/24 Rx furosemide 20 mg tablet 20 mg PO DAILY #90 tabs 08/09/24 08/19/24 Rx losartan 25 mg tablet 25 mg PO QAM #90 tabs 08/10/24 08/19/24 Rx duloxetine 60 mg capsule,delayed 120 mg (2 x 60 mg) PO QAM 90 days 08/16/24 08/19/24 Rx release (Cymbalta) #180 caps calcium carbonate (Calcium 600) 600 mg PO QAM 08/19/24 08/19/24 History naratriptan 2.5 mg tablet 2.5 mg PO ONCE PRN DIRECTED 08/19/24 08/19/24 History Allergies Allergy/AdvReac Type Severity Reaction Status Date / Time metformin AdvReac Intermediate Restlessnes Verified 08/16/24 13:04 s Past Med/Surg History Problem List (Updated 08/19/24 @ 18:47 by HUANG Vargas) Weakness (Acute) Elevated troponin (Acute) Pneumonia (Acute) Urgency incontinence Intermittent palpitations Pancytopenia Degeneration of cervical intervertebral disc Cervical strain (Acute) Bilateral edema of lower extremity (Acute) Frequent falls (Acute) Lymphedema Palliative care by specialist Bilateral nephrolithiasis Breast skin changes Microalbuminuria Pain due to interstitial cystitis Chronic diarrhea Recurrent UTI (urinary tract infection) MRSA (methicillin resistant staph aureus) culture positive (Acute) Diabetes type 2, controlled Carpal tunnel syndrome on both sides with surgical intervention Vitamin D deficiency Leukopenia (Acute) Memory loss Metastatic breast cancer Diabetic neuropathy pt denies Hyperglobulinemia Anticoagulant long-term use Tachy-monica syndrome Atrial fibrillation follows with Dr Ramires Hypothyroidism Vitamin B12 deficiency (Chronic) Positive ESTEPHANIA (antinuclear antibody) (Chronic) Lumbar radiculopathy (Chronic) Lipodystrophy (Chronic) Gait disturbance (Chronic) Constipation (Chronic) Arthritis (Chronic) Medical History Memory loss Migraine Recurrent UTI Hx MRSA infection Pt unsure "I had a blood infection" as per patient ( MSSA bacteremia) Hypothyroidism Gait disturbance Walker Frequent falls "Therapy doesn't help me. I am getting fitted for a brace this week to help with my leg weakness." as per patient most recent fall 06/05/24 History of kidney stones passed on own Edema "Sometimes, I don't know what it's from" as per patient Atrial fibrillation [facility] I[facility] On Eliquis MDD (major depressive disorder), recurrent severe, without psychosis Difficulty with speech Anxiety Depression Septic shock 01/12/24 [facility] IP s/p port removal MSSA bacteremia History of- Jan 2024- admitted to [facility]- treated with abx Anticoagulant long-term use Eliquis Infected venous access port hx patient states only ever had 1 and removed d/t infection- provider notes has had 2 and removed both times d/t infection History of blood transfusion Generalized weakness Lung nodules monitoring Urinary frequency Neuropathy Aortic stenosis Mild aortic stenosis (AV MG 16.7mmHg; AV peak velocity 2.70 m/s) per 06/03/24 ECHO - Dr Ramires Diabetes mellitus, type 2 IDDM Degenerative disc disease Hx of cardiac pacemaker Implanted 2019 (tachy-monica syndrome), [employer] device Follows with Dr. Ramires Liver mass PET scan shows 2.5 right hepatic lobe mass consistent with known hepatic metastasis - CCP - reason for port placement Anemia h/o blood transfusions Infiltrating ductal carcinoma of left breast Initial Dx 2015- s/p lumpectomy, XRT and anastrozole Metastatic breast cancer 03/2020, follows with [facility] Peripheral neuropathy Hands (B/L CTS) Obstructive sleep apnea "Resolved" s/p gastric bypass (? retested) Hypercholesterolemia Gastroesophageal reflux disease controlled, stable per pt Chronic pain Cervical spine disease Limited ROM / Painful as per patient Surgical History Port-A-Cath in place (06/11/24) Insertion MRI Compatible Access Port Right Internal Jugular(Right) - Kaushal Shah MD, FACS History of revision of total replacement of right knee joint Right knee TKA revision with spacer (07/11/2021): SAB at L3-4 (x2 attempts) + PNB at [facility]. No issues noted per post-op anesthesia progress note. History of lumpectomy of left breast Status post placement of cardiac pacemaker 2019 [facility] - [facility] Cardiology Dr Ramires H/O breast biopsy (05/29/23) Skin, left breast, 2 punch biopsies: In office procedure Dr. Alvarez - Fibrosing dermatitis. - See comment Status post revision of total replacement of right knee History of removal of Port-a-Cath (01/11/22) Infected port right anterior chest removed Dr. Shah History of carpal tunnel surgery of left wrist 06/2021 History of carpal tunnel surgery of right wrist Port-A-Cath in place hx - 05/2020 since removed d/t infection at port 12/2021 *hx patient states only ever had 1 and removed d/t infection- provider notes has had 2 and removed both times d/t infection History of colonoscopy (2022) History of evacuation of hematoma Hematoma right breast and right chest 08/31/13 Dr. Shah H/O bilateral hip replacements Status post repair of ventral hernia History of total knee arthroplasty Bilateral Status post total abdominal hysterectomy and bilateral salpingo-oophorectomy Status post lumbar spine surgery for decompression of spinal cord hardware present Status post panniculectomy History of section x1 Status post laparoscopic cholecystectomy Status post gastric bypass for obesity Status post arthroscopy of left shoulder Status post appendectomy Family History Unknown Breast cancer Emphysema lung Mother Diabetes Heart disease Father Heart disease Other No family history of adverse response to anesthesia Denies family history of Ovarian cancer Prostate cancer Coronary heart disease Colorectal cancer Social History Smoking Status: Former smoker Tobacco Type: Cigarettes Age Started Using Tobacco: 17; Age Quit Using Tobacco: 59; packs per day: 1; Second Hand Exposure: No; Do You Dip or Chew Tobacco: No; Hx Alcohol Use: No Hx Substance Use: No Preferred Language: Portuguese Communication Ability: Effective Visual Impairment: No Limitations Hearing Ability: Normal Legal Compliance Officer Required: No Beliefs That Will Affect Care: None marital status: Current Living Situation: Spouse Current Living Situation Comment: [facility] current occupational status: retired Other Information That Helps Us Care for You: No Feels Safe at Home: Yes Safety Concerns: Feels Safe At This Time Childhood Exposure to Second-Hand Smoke: Yes Diet: diabetic caffeine: Yes Dental Care, Regularly: No Physical Activity Frequency: 1-2 Times per Week Seatbelt Use: always Sunscreen Use: No Assistive Devices: Denture - Upper, Denture - Lower, Glasses, Raised Toilet Seat, Walker and Other Assistive Devices Comment: shower chair Physical Exam Vital Signs Vital Signs - 24 hr 08/19/24 13:10 08/19/24 14:00 08/19/24 14:15 Temperature 36.8 C Temperature Source Temporal Artery Scan Pulse Rate 64 65 Pulse Rate [Apical] 60 Pulse Rhythm Pulse Rhythm [Apical] Regular Pulse Strength Normal Respiratory Rate 20 16 Respiratory Effort / Characteristics Non-Labored Spontaneous Non-Labored Spontaneous Respiratory Depth Normal Normal Respiratory Pattern Regular Blood Pressure 175/77 H Blood Pressure [Right Arm] 197/80 H Blood Pressure Mean 109 Blood Pressure Mean [Right Arm] 119 Blood Pressure Position Sitting Pulse Oximetry 96 95 Oxygen Delivery Method Room Air Room Air Sepsis Recent Fever Within 48 Hours No Sepsis New/Unexplained Change in Mental Status No Sepsis Action Taken by Nursing No Action Required 08/19/24 14:15 08/19/24 14:15 Temperature Temperature Source Pulse Rate 60 Pulse Rate [Apical] Pulse Rhythm Regular Pulse Rhythm [Apical] Pulse Strength Respiratory Rate 16 Respiratory Effort / Characteristics Respiratory Depth Respiratory Pattern Blood Pressure Blood Pressure [Right Arm] Blood Pressure Mean Blood Pressure Mean [Right Arm] Blood Pressure Position Pulse Oximetry 95 Oxygen Delivery Method Room Air Room Air Sepsis Recent Fever Within 48 Hours Sepsis New/Unexplained Change in Mental Status Sepsis Action Taken by Nursing VITAL SIGNS - Vital signs and nursing notes were reviewed. GENERAL -74-year-old female appearing their stated age, who is in no acute distress. Communicates well with provider and answers questions appropriately. Patient's is at bedside. HEAD - Normocephalic, Atraumatic. No Greene's Sign or Raccoon's Eyes. EYES - PERRL with EOMI bilaterally. Sclera anicteric. Conjunctiva pink and moist with no injection. EARS - No deformities of external structures noted on gross examination bilaterally. NECK - Neck with FROM. Supple to palpation. No lymphadenopathy noted. LUNGS - Chest wall symmetric without accessory muscle use, intercostals retractions, or central cyanosis. Patient has noted wheezing throughout all lung colin, fine crackles noted in her bilateral bases. CARDIAC - RRR with S1/S2. No murmur, rubs, or gallops appreciated. EXTREMITIES -mild, trace pitting edema noted to her bilateral lower extremities. +4/5 strength noted in UE/LE bilaterally. NEUROLOGIC -Sensory intact to light touch throughout. PSYCH - A&Ox3 and cooperates fully with examiner. Pt is very pleasant and interacts well with examiner Course Administered Medications Acetaminophen (Acetaminophen 500 Mg Tab) 1,000 mg PO Q8H PRN PRN Reason: Pain or Fever Stop: 09/18/24 20:21 Last Admin: 08/19/24 20:44 Dose: 1,000 mg Documented By: ALISSA Insulin Aspart (Insulin Aspart Per Unit Charge) 0 units SC ACHS RUTH Stop: 09/18/24 20:59 Last Admin: 08/19/24 20:47 Dose: 5 units Documented By: ALISSA Co-signed By: BRIANNE Insulin Glargine (Lantus Per Unit Charge) 15 units SC QPM RUTH Stop: 09/18/24 20:59 Last Admin: 08/19/24 20:47 Dose: 15 units Documented By: ALISSA Co-signed By: BRIANNE Tramadol HCl (Tramadol Hcl 50 Mg Tablet) 50 mg PO Q4H PRN PRN Reason: Headache or Pain Stop: 09/18/24 18:19 Last Admin: 08/19/24 19:16 Dose: 50 mg Documented By: ALISSA Discontinued Medications Azithromycin (Azithromycin 250 Mg Tab) 500 mg PO NOW ONE Stop: 08/19/24 14:46 Last Admin: 08/19/24 14:52 Dose: 500 mg Documented By: LUIS Ceftriaxone Sodium (Rocephin) 1,000 mg in 50 mls @ 100 mls/hr IV NOW STA Stop: 08/19/24 15:11 Last Infusion: 08/19/24 15:42 Dose: Infused Documented By: Admin: 08/19/24 14:50 Dose: 100 mls/hr Documented By: LUIS Potassium Chloride (Potassium Chloride Crtab 20 Meq Tabcr) 40 meq PO NOW STA Stop: 08/19/24 20:23 Last Admin: 08/19/24 20:44 Dose: 40 meq Documented By: ALISSA Medical Decision Making Differential Diagnosis Influenza, COVID, RSV, pneumonia, pulmonary edema, among others Medical Records Attestation: I reviewed the patient's medical records. Home Medications was personally reviewed by me Laboratory Data Attestation: I reviewed the patient's lab results. 08/19/24 14:09 08/19/24 14:09 Lab Results 08/19/24 08/19/24 Range/Units 14:09 14:20 WBC 19.35 H (4.8-10.8) K/ul RBC 3.31 L (4.20-5.40) M/uL Hgb 10.3 L (12.0-16.0) g/dl Hct 31.6 L (37.0-47.0) % MCV 95.5 (80.0-100.0) fL MCH 31.1 (25.0-34.0) pg MCHC 32.6 (32.0-36.0) g/dL RDW Std Deviation 56.0 H (36.4-46.3) fL RDW Coeff of Thompson 16.0 H (11.5-14.5) % Plt Count 169 (130-400) K/uL MPV 11.3 (9.4-12.4) fL Immature Gran % (Auto) 0.7 % Neut % (Auto) 83.1 % Lymph % (Auto) 4.7 % Ray % (Auto) 11.0 % Eos % (Auto) 0.2 % Baso % (Auto) 0.3 % Neut # (Auto) 16.09 H (1.40-6.50) K/uL Lymph # (Auto) 0.90 L (1.20-3.40) K/uL Ray # (Auto) 2.13 H (0.11-0.59) K/uL Eos # (Auto) 0.04 (0.00-0.50) K/uL Baso # (Auto) 0.05 (0.00-0.20) K/uL Immature Gran # (Auto) 0.14 (0.01-0.20) K/uL PT 12.7 H (9.0-12.0) Seconds INR 1.2 H (0.9-1.1) APTT 34 H (21-31) Seconds PTT Ratio 1.3 Sodium 138 (136-145) mmol/L Potassium 3.1 L (3.5-5.1) mmol/L Chloride 104 (98-107) mmol/L Carbon Dioxide 29 (21-32) mmol/L Anion Gap 5 (3-11) BUN 23 (6-23) mg/dl Creatinine 0.67 (0.6-1.2) mg/dl Est Cr Clr Drug Dosing 67.1 ml/min eGFR 90.53 BUN/Creatinine Ratio 34.3 H (10-20) Glucose 145 H (70-99(Fasting)) mg/dl Calcium 9.0 (8.6-10.3) mg/dl Total Bilirubin 0.6 (0.2-1.0) mg/dl AST 34 (13-39) U/L ALT 51 (7-52) U/L Alkaline Phosphatase 198 H (34-104) U/L Troponin I High Sens 29.7 H (0-14) pg/ml Total Protein 6.4 (6.0-8.3) gm/dl Albumin 3.8 (3.4-5.0) gm/dl Globulin 2.6 (2.5-4.0) gm/dl Albumin/Globulin Ratio 1.5 (0.9-2) Adenovirus (PCR) Not Detected (NotDetected) B. pertussis DNA (PCR) Not Detected (NotDetected) B.parapertussis DNA PCR Not Detected (NotDetected) C. pneumoniae DNA (PCR) Not Detected (NotDetected) Coronavirus OC43 (PCR) Not Detected (NotDetected) Coronavirus HKU1 (PCR) Not Detected (NotDetected) Coronavirus 229E (PCR) Not Detected (NotDetected) SARS-CoV-2 (PCR) Not Detected (NotDetected) Coronavirus NL63 (PCR) Not Detected (NotDetected) Human Metapneumovir PCR Not Detected (NotDetected) Influenza Type A (PCR) Not Detected (NotDetected) Influenza Type B (PCR) Not Detected (NotDetected) M. pneumoniae (PCR) Not Detected (NotDetected) Parainfluenza 1 (PCR) Not Detected (NotDetected) Parainfluenza 2 (PCR) Not Detected (NotDetected) Parainfluenza 3 (PCR) Not Detected (NotDetected) Parainfluenza 4 (PCR) Not Detected (NotDetected) RSV (PCR) Not Detected (NotDetected) Entero/Rhino (PCR) Not Detected (NotDetected) Imaging Data Radiologist's Impression: Chest X-Ray 08/19/24 13:13 XR chest 1V portable CLINICAL HISTORY: Chest pain, nonspecific COMPARISON STUDY: 06/11/2024 FINDINGS: A mild, generalized reticular pulmonary pattern is developed. There is minimal blunting of the costophrenic angles. There is slight perihilar haziness. The heart remains enlarged. There is elevation of the left mainstem bronchus. The left cardiac border is straightened with increased retrocardiac density suggesting either partial atelectasis or infiltrate in the left lower lobe. Dual-lead pacemaker remains in place. MediPort catheter tip remains in the superior vena cava. IMPRESSION: Suspect mild pulmonary edema. Left basilar infiltrate versus partial atelectasis in the left lower lobe. ACT 112: Negative or not required by law. Electronically signed by: Malka Leung M.D. 08/19/2024 2:20 PM MDM Narrative Patient is a 74-year-old female who presents to the emergency department with complaints of shortness of breath, generalized weakness, congestion, chest pain and edema in her bilateral lower extremities. Patient states that she is concerned that she could have pneumonia as she has not felt well for approximately a week. Patient also notes a history of edema in her bilateral lower extremities, reports taking Lasix daily but does not feel that it is working right now. Patient was evaluated by myself and findings were noted in the physical exam above. Patient was ordered IV placement, lab work, urinalysis, chest x-ray and bio [facility] upper respiratory panel. Patient's lab work resulted with an elevated white blood cell count of 19.35. Patient had a mild anemia with a hemoglobin of 10.3 and hematocrit of 31.6. Those numbers appear to be baseline for the patient. Patient had no significant electrolyte imbalance but did have a slight hypokalemia with a potassium of 3.1. Patient did have an elevated troponin level of 29.7. Patient's bio [facility] upper respiratory panel resulted negative for any findings. Patient's chest x-ray was completed and interpreted by radiology to show a mild pulmonary edema, and a left basilar infiltrate versus partial atelectasis in the left lower lobe. I discussed all these findings with the patient who verbalized understanding. I discussed with the patient and her at bedside that I would advise that she consider staying in the hospital and being admitted by the hospitalist team for closer management and IV antibiotics for pneumonia. Patient could also at this time to be evaluated by cardiology for elevated troponin and use IV Lasix to try to get some of the fluid out of her legs. Patient verbalized understanding was agreeable to the plan. Patient's stated that he would feel more comfortable if the patient was here in the hospital for couple nights and monitored by us. I spoke with Dr. Cox and gave him a full report on this patient including her chief complaint, current status and the results of her imaging and lab work. Dr. Cox agreed to accept the patient for admission under his service. Please refer to [facility] hospitalist group's documentation for further evaluation and management of this patient. Impression Pneumonia, Elevated troponin, Weakness Discharge Plan Visit Data Chief Complaint: Illness Stated Complaint: CHEST PAIN/RIB PAIN, FALLS, WEAKNESS, EDEMA/FLUID ED Provider: Teofilo Lopez ED Midlevel Provider: Shannon Gillette Discharge Problem: Pneumonia, Elevated troponin, Weakness Patient Disposition: Admitted As Inpatient Discharge Instructions Interventions: ED Discharge Assessment Last Done: 08/19/24 17:05 Discharge Problem: Pneumonia Qualifiers: Pneumonia type: due to unspecified organism Laterality: unspecified laterality Lung location: unspecified part of lung Qualified Code(s): J18.9 - Pneumonia, unspecified organism
--- NOTE | 2024-08-19 16:15 | Electrocardiogram Report ---
Test Reason : Blood Pressure : */* mmHG Vent. Rate : 63 BPM Atrial Rate : 234 BPM P-R Int : * ms QRS Dur : 170 ms QT Int : 478 ms P-R-T Axes : * -87 70 degrees QTcB Int : 489 ms Ventricular-paced rhythm Abnormal ECG When compared with ECG of 24-Feb-2024 15:05, Vent. rate has increased by 3 bpm Confirmed by Asad Daugherty ([id number]) on 08/19/2024 4:15:09 PM Referred By: Confirmed By: Asad Daugherty
[2024-08-19] MEDS ORDERED: GLUCAGON FOR INJ 1 MG VIAL SQ PRN (17:44)
[2024-08-19] MEDS ORDERED: GLUCOSE 40% GEL 15 GM TUBE PO PRN (17:44)
[2024-08-19] MEDS ORDERED: GLUCOSE 10 TAB/TUBE PO PRN (17:44)
[2024-08-19] MEDS ORDERED: DEXTROSE 50% 50 ML SYRINGE IV PRN (17:44)
[2024-08-19] MEDS: traMADol HCL 50 MG TABLET PO PRN (19:16)
[2024-08-19] MEDS: ACETAMINOPHEN 500 MG TAB PO PRN (20:44)
[2024-08-19] MEDS: POTASSIUM CHLORIDE CRTAB 20 MEQ TABCR PO STA (20:44)
[2024-08-19] MEDS: LANTUS PER UNIT CHARGE SC SCH (20:47)
[2024-08-19] MEDS: INSULIN ASPART PER UNIT CHARGE SC SCH (20:47)
[2024-08-19] MEDS: APIXABAN 5 MG TABLET PO SCH (21:00)
[2024-08-19] MEDS: ATORVASTATIN 40 MG TAB PO SCH (21:00)
[2024-08-19] MEDS: METHENAMINE HIPPURATE 1 GM TAB PO SCH (21:00)
[2024-08-19] MEDS: MELATONIN 3 MG TAB PO PRN (23:35)
[2024-08-20 01:25] LABS: Appearance Urine Cloudy (Clear)
[2024-08-20 01:26] LABS: Specific Gravity Urine 1.021 (1.000-1.030)
[2024-08-20 01:35] LABS: WBC Urine >50 /hpf (0-5)
[2024-08-20 01:36] LABS: Bacteria Urine 2+ (None Seen)
[2024-08-20] MEDS: MoRPHine SULFATE 2 MG/ML CARP IV STA (06:11)
[2024-08-20] MEDS: LEVOTHYROXINE SODIUM 75 MCG TABLET PO SCH (06:15)
[2024-08-20 07:02] LABS: Basophils # (auto) 0.04 K/uL (0.00-0.20); Basophils % (auto) 0.3 %; Eosinophils # (auto) 0.17 K/uL (0.00-0.50); Eosinophils % (auto) 1.2 %; Hematocrit (blood only) 27.9 % (37.0-47.0); Hemoglobin 8.9 g/dl (12.0-16.0); Immature Granulocytes # (auto) 0.08 K/uL (0.01-0.20); Immature Granulocytes % (auto) 0.6 %; Lymphocytes # (auto) 0.82 K/uL (1.20-3.40); Mean Corpuscular Hemoglobin 30.6 pg (25.0-34.0); Mean Corpuscular Hgb Conc 31.9 g/dL (32.0-36.0); Mean Corpuscular Volume 95.9 fL (80.0-100.0); Mean Platelet Volume 12.2 fL (9.4-12.4); Monocytes # (auto) 2.05 K/uL (0.11-0.59); Monocytes % (auto) 14.9 %; Neutrophils # (auto) 10.61 K/uL (1.40-6.50); Platelet Count 133 K/uL (130-400); RDW Coefficient of Variation 16.1 % (11.5-14.5); RDW Standard Deviation 56.8 fL (36.4-46.3); Red Blood Count 2.91 M/uL (4.20-5.40); White Blood Count 13.77 K/ul (4.8-10.8)
[2024-08-20 07:28] LABS: BUN Creatinine Ratio 36.2 (10-20); C Reactive Protein 19.27 mg/dl (0-0.5); Calcium 8.7 mg/dl (8.6-10.3); Creatinine Clr Calc Pharmacy 62.5 ml/min; Potassium 3.9 mmol/L (3.5-5.1)
[2024-08-20] MEDS: DULoxetine HCL 60 MG CAP PO SCH (08:36)
[2024-08-20] MEDS: VIBEGRON 75 MG TAB PO SCH (08:36)
[2024-08-20] MEDS: FUROSEMIDE 20 MG TAB PO SCH (08:36)
[2024-08-20] MEDS: dilTIAZem HCL 180 MG CAPCR PO SCH (08:36)
[2024-08-20] MEDS: LOSARTAN POTASSIUM 25 MG TAB PO SCH (08:36)
[2024-08-20] MEDS: CHOLECALCIFEROL 25 MCG (1000 UNITS) TAB PO SCH (08:37)
[2024-08-20] MEDS: CALCIUM CARBONATE 1250MG TAB PO SCH (08:37)
--- NOTE | 2024-08-20 12:17 | CT Scan Report ---
CT chest diagnostic wo con CT DOSE: 634.32 mGy.cm CLINICAL HISTORY: 74 years-old Female with sob/ not improving. Acute shortness of breath TECHNIQUE: Multiaxial CT images of the chest were performed without contrast. A dose lowering techni que was utilized adhering to the principles of ALARA. COMPARISON: Chest radiograph of same day, CT chest, abdomen and pelvis 05/13/2024 FINDINGS: No thyroid nodule pathologically enlarged lymph nodes. Moderate cardiomegaly with small per icardial effusion. Moderate to extensive coronary artery calcifications. Left subclavian pacer. Dilat ed main pulmonary artery suggestive of pulmonary tree or hypertension. Moderate layering pleural effusions. Intralobular septal thickening without pneumothorax. Unchanged 5 mm right lower lobe pulmonary nodule on image 102. Mild patchy groundglass opacities are noted withi n the right upper lobe. Dependent bibasilar consolidation. Central airways are patent. Hepatic metast asis redemonstrated. A 5 cm right hepatic lobe mass previously measured 4.3 cm. A 2.2 cm lesion on im age 89 previously measured 1.5 cm. Streak artifact from left shoulder arthroplasty. Degenerative jeanette nges of the right shoulder and spine. Right IJ Wuxewt-p-Owsc catheter. There are a few healed chronic right-sided rib fractures noted. IMPRESSION: 1. Cardiomegaly with interstitial pulmonary edema, moderate pleural effusions with dependent bibasila r consolidation. 2. Mild patchy right upper lobe groundglass opacities may represent a superimposed infectious or infl ammatory pneumonitis. 3. Progressive hepatic metastasis. 4. Stable 5 mm nodule of the right lower lobe. 5. No lymphadenopathy. ACT 112: Negative or not required by law. Electronically signed by: Jeremy Batres M.D. 08/20/2024 12:15 PM
[2024-08-20] MEDS: FUROSEMIDE 40 MG/4 ML VIAL IV ONE (13:26)
[2024-08-20] MEDS: SPIRONOLACTONE 100 MG TAB PO ONE (13:27)
[2024-08-20] MEDS: cefTRIAXone SODIUM 1,000 MG/50 ML BAG IV SCH (14:41)
[2024-08-20] MEDS: AZITHROMYCIN 250 MG TAB PO SCH (14:41)
[2024-08-20] MEDS: POTASSIUM CHLORIDE CRTAB 20 MEQ TABCR PO ONE (21:01)
--- NOTE | 2024-08-20 22:36 | Hospitalist Progress Note ---
Date of Service August 20, 2024 Assessment & Plan (1) Pneumonia: Plan: Pneumonia in a 74 yo female with positive chest xray and leukocytosis Concern for possible sepsis WBC now downtrending. Ct scan of chest reveiewed showed moderate pleural effusions, given normal renal function will try to aggresively diurese. Due to mets in liver, will add spironolactone to the lasix. Ordered one time dose and will readdress on 08/21 Lung exam was benign though did have low breath sounds. will conitnue antibitics MRSA was positive in the past, will hold MRS coverage for now. Only ~30% positive predictive value. will hold eliquis and consider thoracocenthesis friday Plan Atrial fibrillation: pt is chronically anticoagulated with Eliquis, will continue troponin ranged from 56 to 61, suspect demand ischemia in face of sepsis, not suspecting ACS Diabetes type 2, controlled: glycemic consult placed Breast cancer: - Metastatic breast cancer to liver - Localized breast cancer diagnosed 2015 - Metastatic breast cancer with hepatic lesion, ER 100%, diagnosed March 2020 - Chronic anemia in the setting of cancer treatments - Follows with Dr. De Luna at [facility] Admission and Anticipated Discharge Date Admission Date: August 19, 2024 Subjective Patient reports no significant improvement. Physical Exam Physical Exam: General: Ill appearing female in NAD Skin:lower extremity edema HEENT: NC/AT, PERRL, EOMI Heart: +S1/S2, irregular, paced, no m/r/g Lungs: decreased breath sounds, but no wheezing or rales Abd: +BS, soft, NT/ND, no masses/organomegaly/ascites Ext: warm, no edema Neuro: grossly nonfocal. Results & Data Results & Data Vital Signs (Past 12 Hours) Vital Signs Temp Pulse Pulse Resp BP Pulse Ox O2 Del Method 08/20/24 19:13 36.9 C 60 18 157/69 H 95 Room Air 08/20/24 15:51 61 08/20/24 15:32 36.5 C 61 19 169/78 H 93 Room Air 08/20/24 10:38 36.6 C 66 18 179/81 H 96 Room Air PG Care Time/CCT Total # of Minutes Spent Total Time Spent with Patient: Total time spent is greater than 50% in coordination of care (as documented) at patient's floor/unit and/or counseling patient: Coding Level of Care Code 74610 SUB INP/OBS CARE MIN Diagnoses Pneumonia J18.9
[2024-08-21] MEDS: CARBOHYDRATES FOR HYPOGLYCEMIA PO PRN (07:17)
[2024-08-21 07:58] LABS: Hematocrit (blood only) 27.1 % (37.0-47.0); Hemoglobin 8.7 g/dl (12.0-16.0); Mean Corpuscular Hemoglobin 30.3 pg (25.0-34.0); Mean Corpuscular Hgb Conc 32.1 g/dL (32.0-36.0); Mean Corpuscular Volume 94.4 fL (80.0-100.0); Mean Platelet Volume 11.7 fL (9.4-12.4); Platelet Count 132 K/uL (130-400); RDW Coefficient of Variation 15.6 % (11.5-14.5); RDW Standard Deviation 53.6 fL (36.4-46.3); Red Blood Count 2.87 M/uL (4.20-5.40); White Blood Count 11.14 K/ul (4.8-10.8)
[2024-08-21 08:15] LABS: BUN Creatinine Ratio 42.6 (10-20); C Reactive Protein 12.47 mg/dl (0-0.5); Calcium 8.6 mg/dl (8.6-10.3); Creatinine Clr Calc Pharmacy 70.7 ml/min
[2024-08-21] MEDS: FUROSEMIDE 40 MG/4 ML VIAL IV ONE (11:03)
[2024-08-21] MEDS: SPIRONOLACTONE 100 MG TAB PO SCH (11:03)
[2024-08-21] MEDS: HEPARIN 100 UNIT/ML 5ML FLUSH FLUSH PRN (11:28)
[2024-08-21 13:55] LABS: Appearance Urine Clear (Clear); Bilirubin Urine Negative (Negative); Blood Urine 1+ (Negative); Color Urine Yellow; Glucose Urine UA Negative (Negative); Ketones Urine Negative (Negative); Leukocyte Esterase Urine 1+ (Negative); Nitrite Urine Negative (Negative); Protein Urine Negative (Negative); RBC Urine Automated 0-2 /hpf (0-2); Specific Gravity Urine 1.008 (1.000-1.030); Urobilinogen Urine Negative (Negative)
[2024-08-21 14:14] LABS: Bacteria Urine Automated 1+ (None Seen)
[2024-08-21 14:15] LABS: Hyaline Casts Urine P /lpf (None Presnt)
[2024-08-21] MEDS: LANTUS PER UNIT CHARGE SC SCH (20:27)
[2024-08-21] MEDS: ONDANSETRON INJ 2 MG/ML 2 ML VIAL IV PRN (21:52)
--- NOTE | 2024-08-21 23:08 | Hospitalist Progress Note ---
Date of Service August 21, 2024 Assessment & Plan (1) Pneumonia: Plan: Pneumonia in a 74 yo female with positive chest xray and leukocytosis Concern for possible sepsis WBC now downtrending. Ct scan of chest reveiewed showed moderate pleural effusions, given normal renal function will try to aggresively diurese. Due to mets in liver, will add spironolactone to the lasix. reordered on 08/21 Lung exam was benign though did have low breath sounds. will continue antibiotics MRSA was positive in the past, will hold MRS coverage for now. Only ~30% positive predictive value. will hold eliquis and consider thoracocenthesis friday Plan Atrial fibrillation: pt is chronically anticoagulated with Eliquis, will hold as per above trop was 29 now 26, suspect demand ischemia in face of sepsis, not suspecting ACS now downtrending. Diabetes type 2, controlled: glycemic consult placed UTI: added urine culture continue rocephin add pyridium. Breast cancer: - Metastatic breast cancer to liver - Localized breast cancer diagnosed 2015 - Metastatic breast cancer with hepatic lesion, ER 100%, diagnosed March 2020 - Chronic anemia in the setting of cancer treatments - Follows with Dr. De Luna at [facility] Admission and Anticipated Discharge Date Admission Date: August 19, 2024 Subjective Patient is now complaining of dysuria. Physical Exam Physical Exam: General: Ill appearing female in NAD Skin:lower extremity edema HEENT: NC/AT, PERRL, EOMI Heart: +S1/S2, irregular, paced, no m/r/g Lungs: decreased breath sounds, but no wheezing or rales Abd: +BS, soft, NT/ND, no masses/organomegaly/ascites Ext: warm, no edema Neuro: grossly nonfocal. Results & Data Results & Data Vital Signs (Past 12 Hours) Vital Signs Temp Pulse Pulse Resp BP Pulse Ox O2 Del Method 08/21/24 22:50 36.9 C 60 18 169/65 H 95 Room Air 08/21/24 19:32 36.8 C 60 18 155/73 H 96 Room Air 08/21/24 15:32 64 08/21/24 14:54 36.8 C 60 18 139/72 97 Room Air PG Care Time/CCT Total # of Minutes Spent Total Time Spent with Patient: Total time spent is greater than 50% in coordination of care (as documented) at patient's floor/unit and/or counseling patient: Coding Level of Care Code 64578 SUB INP/OBS CARE MIN Diagnoses Pneumonia J18.9
[2024-08-22 06:21] LABS: Hematocrit (blood only) 27.7 % (37.0-47.0); Hemoglobin 8.7 g/dl (12.0-16.0); Mean Corpuscular Hemoglobin 29.8 pg (25.0-34.0); Mean Corpuscular Hgb Conc 31.4 g/dL (32.0-36.0); Mean Corpuscular Volume 94.9 fL (80.0-100.0); Mean Platelet Volume 11.5 fL (9.4-12.4); Platelet Count 153 K/uL (130-400); RDW Coefficient of Variation 15.8 % (11.5-14.5); RDW Standard Deviation 53.8 fL (36.4-46.3); Red Blood Count 2.92 M/uL (4.20-5.40); White Blood Count 10.58 K/ul (4.8-10.8)
[2024-08-22 06:33] LABS: BUN Creatinine Ratio 43.9 (10-20); C Reactive Protein 6.94 mg/dl (0-0.5); Calcium 8.7 mg/dl (8.6-10.3); Creatinine Clr Calc Pharmacy 75.7 ml/min; Potassium 4.2 mmol/L (3.5-5.1)
[2024-08-22] MEDS: PHENAZOPYRIDINE HCL 200 MG TAB PO PRN (08:42)
[2024-08-22] MEDS: ERTAPENEM 1000MG 1,000 MG/10 ML SYR IV SCH (10:19)
--- NOTE | 2024-08-22 11:15 | XRay Report ---
XR chest 2V PA/lateral HISTORY: 74 years-old Female bilateral pleural effusions acute shortness of breath COMPARISON: Chest CT August 20, 2024 TECHNIQUE: PA and lateral views of the chest FINDINGS: Cardiac silhouette is enlarged. Left subclavian dual-lead pacer. Right IJ [id number] catheter. Int erstitial pulmonary edema redemonstrated. No pneumothorax. Mild bibasilar consolidation. Mild subtle patchy bilateral pulmonary opacities are better seen on the CT. Moderate layering pleural effusions a gain noted. Left shoulder arthroplasty. Severe osteoarthritis of the right shoulder. IMPRESSION: 1. Cardiomegaly with interstitial pulmonary edema. 2. Persistent layering pleural effusions with mild bibasilar atelectasis. 3. Mild patchy likely infectious or inflammatory opacities of the lungs are better seen on the prior CT study. ACT 112: Negative or not required by law. The above report was generated using voice recognition software. It may contain grammatical, syntax o r spelling errors. Electronically signed by: Jeremy Batres M.D. 08/22/2024 11:13 AM
[2024-08-22] MEDS: PHENAZOPYRIDINE HCL 200 MG TAB PO SCH (20:16)
--- NOTE | 2024-08-22 22:25 | Hospitalist Progress Note ---
Date of Service August 22, 2024 Assessment & Plan (1) Pneumonia: Plan: Pneumonia in a 74 yo female with positive chest xray and leukocytosis Concern for possible sepsis WBC now downtrending. Ct scan of chest reveiewed showed moderate pleural effusions, given normal renal function will try to aggresively diurese. Due to mets in liver, will add spironolactone to the lasix. reordered on 08/21 Lung exam was benign though did have low breath sounds. will continue antibiotics MRSA was positive in the past, will hold MRS coverage for now. Only ~30% positive predictive value. will hold eliquis and consider thoracocenthesis on Friday. Plan Atrial fibrillation: pt is chronically anticoagulated with Eliquis, will hold as per above trop was 29 now 26, suspect demand ischemia in face of sepsis, not suspecting ACS now downtrending. Diabetes type 2, controlled: glycemic consult placed UTI: added urine culture: pending switched to ertapenem due to previous urine cultures. continue pyridium scheduled. Breast cancer: - Metastatic breast cancer to liver - Localized breast cancer diagnosed 2015 - Metastatic breast cancer with hepatic lesion, ER 100%, diagnosed March 2020 - Chronic anemia in the setting of cancer treatments - Follows with Dr. De Luna at [facility] Admission and Anticipated Discharge Date Admission Date: August 19, 2024 Subjective 74 yo female reports she continues to have symptoms of dysuria. She states her breathing is better, Physical Exam Physical Exam: General: Ill appearing female in NAD Skin:lower extremity edema HEENT: NC/AT, PERRL, EOMI Heart: +S1/S2, irregular, paced, no m/r/g Lungs: decreased breath sounds, but no wheezing or rales Abd: +BS, soft, NT/ND, no masses/organomegaly/ascites Ext: warm, no edema Neuro: grossly nonfocal. Results & Data Results & Data Vital Signs (Past 12 Hours) Vital Signs Temp Pulse Resp BP Pulse Ox Pulse Ox O2 Del Method 08/22/24 19:46 36.8 C 60 20 172/63 H 96 Room Air 08/22/24 15:18 36.3 C L 60 19 154/77 H 98 Room Air 08/22/24 11:05 36.7 C 63 18 168/74 H 98 Room Air 08/22/24 10:40 99 O2 Flow Rate 08/22/24 19:46 08/22/24 15:18 08/22/24 11:05 08/22/24 10:40 0 PG Care Time/CCT Total # of Minutes Spent Total Time Spent with Patient: Total time spent is greater than 50% in coordination of care (as documented) at patient's floor/unit and/or counseling patient: Coding Level of Care Code 66752 SUB INP/OBS CARE 3/50MIN Diagnoses Pneumonia J18.9
[2024-08-23 08:33] LABS: Hematocrit (blood only) 29.7 % (37.0-47.0); Hemoglobin 9.4 g/dl (12.0-16.0); Mean Corpuscular Hgb Conc 31.6 g/dL (32.0-36.0); Mean Corpuscular Volume 94.9 fL (80.0-100.0); Mean Platelet Volume 12.2 fL (9.4-12.4); Platelet Count 163 K/uL (130-400); RDW Coefficient of Variation 15.7 % (11.5-14.5); RDW Standard Deviation 53.4 fL (36.4-46.3); Red Blood Count 3.13 M/uL (4.20-5.40)
[2024-08-23 08:45] LABS: BUN Creatinine Ratio 30.9 (10-20); C Reactive Protein 4.29 mg/dl (0-0.5); Calcium 8.8 mg/dl (8.6-10.3); Creatinine Clr Calc Pharmacy 63.4 ml/min; Potassium 4.4 mmol/L (3.5-5.1)
--- NOTE | 2024-08-23 11:27 | Pulmonary Consultation ---
Date of Consultation August 23, 2024 Assessment & Plan (1) Pleural effusion: Plan Impression: 74-year-old female with metastatic breast cancer admitted with weakness and shortness of breath. She has small bilateral effusions. Recommendations: 1. Pleural effusion: Images were independently reviewed. The effusions appear small and the patient is on room air. She denies any respiratory symptoms currently. No indication for consideration of thoracentesis currently. If the effusion should increase in size or the patient develops progressive respiratory issues, consideration for thoracentesis by IR might be appropriate. BNP was mildly elevated. The patient's 1 L negative. Would recommend continue diuretics with attention to renal function and electrolytes. 2. For management of the patient's other medical issues is deferred to the primary admitting service. Next with the opportunity of evaluating this patient. Pulmonary will sign off at this point in time. Feel free to contact us with questions or concerns History of Present Illness Attending Physician: Ulysses Cox History of Present Illness Asked by hospitalist to evaluate this patient for potential thoracentesis. History is obtained from discussion with the patient as well as review of the electronic medical record. The patient is a 74-year-old female with a history of metastatic breast cancer (progressive hepatic metastases) currently on chemotherapy. She was admitted to the hospital 08/19/24 with shortness of breath and generalized weakness. She has been treated intermittently in the outpatient setting with steroids and antibiotics. She was admitted and treated with broad-spectrum antibiotics. CT scan showed small bilateral pleural effusions. Pulmonary was consulted for consideration of thoracentesis. She is currently receiving liposomal doxorubicin as chemotherapy. The patient currently is devoid of any respiratory complaints. Her biggest complaint currently is weakness and dysuria. She states her legs give out and she is unable to walk despite the assistance of a walker. She is not coughing or expectorating phlegm. She has not had febrile episodes or any leukocytosis during the course of her hospitalization. Allergies Allergy/AdvReac Type Severity Reaction Status Date / Time metformin AdvReac Intermediate Restlessnes Verified 08/16/24 13:04 s Home Medications Medication Instructions Recorded Confirmed Type blood sugar diagnostic ([employer] #100 ea 10/07/22 08/19/24 Rx Ultra Test strips) cyanocobalamin (vitamin B-12) 1,000 mcg IM MONTHLY #1 ea 10/07/22 08/19/24 Rx 1,000 mcg/mL injection kit OneTouch Delica Plus Lancet 33 #300 ea 01/09/23 08/19/24 Rx gauge (lancets) pen needle, diabetic 32 gauge x #100 ea 06/12/23 08/19/24 Rx 5/32" (Easy Comfort Pen [place]) atorvastatin 40 mg tablet (Lipitor) 40 mg PO HS 06/07/24 08/19/24 History cholecalciferol (vitamin D3) 50 50 mcg PO QAM 06/07/24 08/19/24 History mcg (2,000 unit) capsule (Vitamin D3) diltiazem HCl 360 mg 360 mg PO QAM 06/07/24 08/19/24 History capsule,extended release 24 hr insulin glargine 100 unit/mL (3 15 unit subcut QPM 06/07/24 08/19/24 History mL) subcutaneous pen multivitamin 1 tab PO QAM 06/07/24 08/19/24 History tramadol 50 mg tablet 50 mg PO Q6 PRN Pain 06/07/24 08/19/24 History apixaban 5 mg tablet (Eliquis) 5 mg PO BID #60 tabs 06/29/24 08/19/24 Rx diphenoxylate-atropine 2.5 1 tab PO BID PRN Diarrhea #30 tabs 07/23/24 08/19/24 Rx mg-0.025 mg tablet (Lomotil) inhalational spacing device #1 ea 07/23/24 08/19/24 Rx ondansetron HCl 8 mg tablet 8 mg PO Q8H 07/23/24 08/19/24 History prochlorperazine maleate 10 mg 10 mg PO Q6H PRN Nausea And 07/23/24 08/19/24 History tablet Vomiting methenamine hippurate 1 gram tablet 1 g PO BID #60 tabs 07/27/24 08/19/24 Rx vibegron 75 mg tablet (Gemtesa) 75 mg PO DAILY #30 tabs 07/27/24 08/19/24 Rx albuterol sulfate 90 mcg/actuation 2 puff inhalation Q4 PRN Shortness 07/30/24 08/19/24 Rx aerosol inhaler Of Breath Or Wheezing #8.5 grams levothyroxine 75 mcg tablet 75 mcg PO DAILY #90 tabs 08/03/24 08/19/24 Rx furosemide 20 mg tablet 20 mg PO DAILY #90 tabs 08/09/24 08/19/24 Rx losartan 25 mg tablet 25 mg PO QAM #90 tabs 08/10/24 08/19/24 Rx duloxetine 60 mg capsule,delayed 120 mg (2 x 60 mg) PO QAM 90 days 08/16/24 08/19/24 Rx release (Cymbalta) #180 caps calcium carbonate (Calcium 600) 600 mg PO QAM 08/19/24 08/19/24 History naratriptan 2.5 mg tablet 2.5 mg PO ONCE PRN DIRECTED 08/19/24 08/19/24 History potassium chloride 20 mEq 20 meq PO DAILY #30 tabs 08/21/24 08/21/24 Rx tablet,extended release Patient History Medical History Memory loss Migraine Recurrent UTI Hx MRSA infection Pt unsure "I had a blood infection" as per patient ( MSSA bacteremia) Hypothyroidism Gait disturbance Walker Frequent falls "Therapy doesn't help me. I am getting fitted for a brace this week to help with my leg weakness." as per patient most recent fall 06/05/24 History of kidney stones passed on own Edema "Sometimes, I don't know what it's from" as per patient Atrial fibrillation [facility] Cardio Ike On Eliquis MDD (major depressive disorder), recurrent severe, without psychosis Difficulty with speech Anxiety Depression Septic shock 01/12/24 [facility] IP s/p port removal MSSA bacteremia History of- Jan 2024- admitted to [facility]- treated with abx Anticoagulant long-term use Eliquis Infected venous access port hx patient states only ever had 1 and removed d/t infection- provider notes has had 2 and removed both times d/t infection History of blood transfusion Generalized weakness Lung nodules monitoring Urinary frequency Neuropathy Aortic stenosis Mild aortic stenosis (AV MG 16.7mmHg; AV peak velocity 2.70 m/s) per 06/03/24 ECHO - Dr Ramires Diabetes mellitus, type 2 IDDM Degenerative disc disease Hx of cardiac pacemaker Implanted 2019 (tachy-monica syndrome), [employer] device Follows with Dr. Ramires Liver mass PET scan shows 2.5 right hepatic lobe mass consistent with known hepatic metastasis - CCP - reason for port placement Anemia h/o blood transfusions Infiltrating ductal carcinoma of left breast Initial Dx 2015- s/p lumpectomy, XRT and anastrozole Metastatic breast cancer 03/2020, follows with [facility] Peripheral neuropathy Hands (B/L CTS) Obstructive sleep apnea "Resolved" s/p gastric bypass (? retested) Hypercholesterolemia Gastroesophageal reflux disease controlled, stable per pt Chronic pain Cervical spine disease Limited ROM / Painful as per patient Surgical History Port-A-Cath in place (06/11/24) Insertion MRI Compatible Access Port Right Internal Jugular(Right) - Kaushal Shah MD, FACS History of revision of total replacement of right knee joint Right knee TKA revision with spacer (07/11/2021): SAB at L3-4 (x2 attempts) + PNB at [facility]. No issues noted per post-op anesthesia progress note. History of lumpectomy of left breast Status post placement of cardiac pacemaker [email or web address] Cardiology Dr Ramires H/O breast biopsy (05/29/23) Skin, left breast, 2 punch biopsies: In office procedure Dr. Alvarez - Fibrosing dermatitis. - See comment Status post revision of total replacement of right knee History of removal of Port-a-Cath (01/11/22) Infected port right anterior chest removed Dr. Shah History of carpal tunnel surgery of left wrist 06/2021 History of carpal tunnel surgery of right wrist Port-A-Cath in place hx - 05/2020 since removed d/t infection at port 12/2021 *hx patient states only ever had 1 and removed d/t infection- provider notes has had 2 and removed both times d/t infection History of colonoscopy (2022) History of evacuation of hematoma Hematoma right breast and right chest 08/31/13 Dr. Shah H/O bilateral hip replacements Status post repair of ventral hernia History of total knee arthroplasty Bilateral Status post total abdominal hysterectomy and bilateral salpingo-oophorectomy Status post lumbar spine surgery for decompression of spinal cord hardware present Status post panniculectomy History of section x1 Status post laparoscopic cholecystectomy Status post gastric bypass for obesity Status post arthroscopy of left shoulder Status post appendectomy Family History Unknown Breast cancer Emphysema lung Mother Diabetes Heart disease Father Heart disease Other No family history of adverse response to anesthesia Denies family history of Ovarian cancer Prostate cancer Coronary heart disease Colorectal cancer Social History Smoking Status: Former smoker Tobacco Type: Cigarettes Age Started Using Tobacco: 17; Age Quit Using Tobacco: 59; packs per day: 1; Second Hand Exposure: No; Do You Dip or Chew Tobacco: No; Hx Alcohol Use: No Hx Substance Use: No Preferred Language: Greenlandic Communication Ability: Effective Visual Impairment: No Limitations Hearing Ability: Normal Adoption Worker Required: No Beliefs That Will Affect Care: None marital status: Current Living Situation: Spouse Current Living Situation Comment: [facility] current occupational status: retired Other Information That Helps Us Care for You: No Feels Safe at Home: Yes Safety Concerns: Feels Safe At This Time Childhood Exposure to Second-Hand Smoke: Yes Diet: diabetic caffeine: Yes Dental Care, Regularly: No Physical Activity Frequency: 1-2 Times per Week Seatbelt Use: always Sunscreen Use: No Assistive Devices: Walker and Other Assistive Devices Comment: shower chair Review of Systems Review of Systems: Please refer to hospitalist notes. No additions or deletions Physical Exam Constitutional: WD/WN, vitals as above Neck: trachea midline, no thyromegaly Respiratory: normal respiratory effort, lungs clear to auscultation Cardiovascular: RRR, no murmur, no edema Gastrointestinal (Abdomen): normal bowel sounds, soft, nontender, no hepatosplenomegaly Musculoskeletal: Extremities: extremities normal to inspection Skin: no rashes, warm and dry Neurologic: Nonfocal exam Lymphatic: no cervical lymphadenopathy Results & Data Results & Data Vital Signs (Past 12 Hours) Vital Signs Temp Pulse Pulse Resp BP Pulse Ox O2 Del Method 08/23/24 11:04 36.7 C 60 18 153/76 H 96 Room Air 08/23/24 07:34 60 08/23/24 07:34 Room Air 08/23/24 07:11 36.7 C 60 18 188/77 H 96 Room Air 08/23/24 03:12 36.5 C 60 16 173/62 H 97 Room Air Diagnostic Findings Chest x-ray from yesterday was independently reviewed. There is cardiomegaly with some small bilateral effusions. Increased bronchovascular markings CT of the chest/09/10 was independently reviewed. Small bilateral effusions are noted. There is some compressive atelectasis/groundglass opacity. Cannot rule out increased interstitial edema Critical Care Results & Data Vital Signs (Past 12 Hours) Vital Signs Temp Pulse Pulse Resp BP Pulse Ox O2 Del Method 08/23/24 11:04 36.7 C 60 18 153/76 H 96 Room Air 08/23/24 07:34 60 08/23/24 07:34 Room Air 08/23/24 07:11 36.7 C 60 18 188/77 H 96 Room Air 08/23/24 03:12 36.5 C 60 16 173/62 H 97 Room Air Lab & Micro Results (Past 24 Hours) RBC 3.13 M/uL (4.20-5.40) L 08/23/24 WBC 11.20 K/ul (4.8-10.8) H 08/23/24 Hgb 9.4 g/dl (12.0-16.0) L 08/23/24 Hct 29.7 % (37.0-47.0) L 08/23/24 MCV 94.9 fL (80.0-100.0) 08/23/24 MCH 30.0 pg (25.0-34.0) 08/23/24 MCHC 31.6 g/dL (32.0-36.0) L 08/23/24 RDW Standard Deviation 53.4 fL (36.4-46.3) H 08/23/24 RDW Coefficient of Variation 15.7 % (11.5-14.5) H 08/23/24 Plt Count 163 K/uL (130-400) 08/23/24 MPV 12.2 fL (9.4-12.4) 08/23/24 Na 138 mmol/L (136-145) 08/23/24 K 4.4 mmol/L (3.5-5.1) 08/23/24 Cl 106 mmol/L (98-107) 08/23/24 CO2 26 mmol/L (21-32) 08/23/24 Anion Gap 6 (3-11) 08/23/24 BUN 21 mg/dl (6-23) 08/23/24 Creatinine 0.68 mg/dl (0.6-1.2) 04/07/25 BUN/Creatinine Ratio 30.9 (10-20) H 08/23/24 Glu 239 mg/dl (70-99(Fasting)) H 08/23/24 Ca 8.8 mg/dl (8.6-10.3) 08/23/24 Calcium Level 8.8 mg/dl (8.6-10.3) 08/23/24 08:08 Microbiology 08/21/24 Unknown Urine Culture - Final Urine,Straight Cath No growth - less than 1,000 colonies/mL. I & O Totals 24 Hours 08/22/24 08/23/24 08/24/24 06:59 06:59 06:59 Intake Total 1340 / 1340 830 / 830 Output Total 2201 / 2201 2102 / 2102 2 / 2 Balance -861 / -861 -1272 / -1272 -2 / -2 Cumulative 08/19/24 12:48 thru 08/23/24 10:24 Intake Total 3690 Output Total 4880 Balance -1190 RT Ventilator Mngmt (Last Documented) Ventilator Ordered Settings Respiratory Rate 18 08/23/24 11:04 Ventilator - PT Measurements Respiratory Rate 18 PG Care Time/CCT Total # of Minutes Spent Total Time Spent with Patient: Total time spent is greater than 50% in coordination of care (as documented) at patient's floor/unit and/or counseling patient: Coding Level of Care Code 84342 INT INP/OBS CARE 2/55MIN Diagnoses Pleural effusion J90
--- NOTE | 2024-08-23 18:14 | Infectious Disease Consult ---
Date of Consultation August 23, 2024 Assessment & Plan (1) Urgency incontinence: (2) Recurrent UTI (urinary tract infection): Plan ID Problem List: #Dysuria, pyuria #Metastatic colon cancer on chemotherapy Impression: Faiht Solorzano is a 73 yo F with metastatic breast cancer to liver (on liposomal doxorubicin), PPM (2019), R TKA c/b methicillin-R CoNS s/p 2 stage revision (2021), L TKA, L total shoulder replacement, bilateral FREDA, lumbar spinal fusion hardware, history of MSSA bacteremia (12/2023), recurrent UTI, who presents to [facility] on 08/19 with shortness of breath, weakness, and chest pain. Also with dysuria. ID is consulted for dysuria and c/f possible UTI. The patient was seen by her PCP on 07/30 for cough and wheezing. She reportedly has been tried on steroids and antibiotics (per 07/23 PCP note, had been on doxycycline) and also intermittently on steroids, without improvement. Upon presentation to the ED, afebrile, WBC 19.35 Cr 0.67, AST/ALT/tbili wnl. CT chest with interstitial pulmonary edema, moderate pleural effusions with bibasilar consolidation, RUL GGOs possibly c/f infection, stable RLL 5 mm nodule. Pulmonary was consulted on 08/23 regarding pleural effusions and recommended to continue appropriate diuresis, and consider drainage if effusions increase in size or if becomes hypoxemic. Of note, the patient has been reporting dysuria. 08/20 UA showed >50 WBCs, 6-10 RBCs. Repeat UA on 08/21 with 10-20 WBCs, 902 RBCs. 08/20 UCx with mixed organisms; 08/21 UCx with <1k growth. She was initially on ceftriaxone without improvement of symptoms, then changed to ertapenem on 08/22 given prior UCx with ESBL. Patient was continued on pyridium. Discussion Pt with dysuria (ongoing despite ceftriaxone) with initial UA on 08/20 showing pyuria of >50 WBCs; repeat UA on 08/21 showing some improvement to 10-20 WBCs. UCx from 08/20 with mixed organisms, repeat UCx on 08/21 with no growth, suggestive of at least some response to antibiotics. Note pt with recent UCx from 06/21/24 with ESBL E. coli. Reasonable to continue ertapenem for now for possible UTI given dysuria with pyuria. Note that pt continuing to report dysuria despite UA/UCx suggestive of some response to ceftriaxone. If dysuria continues, recommend CT A/P to evaluate for urinary tract abnormalities in the context of metastatic cancer. Recommendations: - Continue ertapenem for now - If dysuria continues, recommend CT A/P to evaluate for urinary tract abnormalities in the context of metastatic cancer ID will continue to follow. Jesenia Hughes MD, MHS Infectious Diseases [facility] Connect ID Connect direct line: [phone] Consultation Information This patient recommendation is based on a telemedicine consult request which was completed asynchronously through chart review and information provided by the primary physician. The patient was not seen or examined today. The evaluation is consultative in nature and all patient care and treatment decisions can either be accepted or rejected by the patient's primary hospital-based treating physician using their own independent medical judgment for their patient. [employer] contact information: Please call ID Connect Call Center [phone]. (Phone Number For Physician Use Only) Time Spent Reviewing Chart: 31+ minutes History of Present Illness Reason for Consultation: dysuria and c/f possible UTI Attending Physician: Ulysses Cox History of Present Illness PLEASE NOTE: E-consult was performed for this visit given lack of telepresenter availability. Faith Solorzano is a 73 yo F with metastatic breast cancer to liver (on liposomal doxorubicin), PPM (2019), R TKA c/b methicillin-R CoNS s/p 2 stage revision (2021), L TKA, L total shoulder replacement, bilateral FREDA, lumbar spinal fusion hardware, history of MSSA bacteremia (12/2023), recurrent UTI, who presents to [facility] on 08/19 with shortness of breath, weakness, and chest pain. Also with dysuria. ID is consulted for dysuria and c/f possible UTI. The patient was seen by her PCP on 07/30 for cough and wheezing. She reportedly has been tried on steroids and antibiotics (per 07/23 PCP note, had been on doxycycline) and also intermittently on steroids, without improvement. Upon presentation to the ED, afebrile, WBC 19.35 Cr 0.67, AST/ALT/tbili wnl. CT chest with interstitial pulmonary edema, moderate pleural effusions with bibasilar consolidation, RUL GGOs possibly c/f infection, stable RLL 5 mm nodule. Pulmonary was consulted on 08/23 regarding pleural effusions and recommended to continue appropriate diuresis, and consider drainage if effusions increase in size or if becomes hypoxemic. Of note, the patient has been reporting dysuria. 08/20 UA showed >50 WBCs, 6-10 RBCs. Repeat UA on 08/21 with 10-20 WBCs, 902 RBCs. 08/20 UCx with mixed organisms; / UCx with <1k growth. She was initially on ceftriaxone without improvement of symptoms, then changed to ertapenem on 08/22 given prior UCx with ESBL. Patient was continued on pyridium. Allergies Allergy/AdvReac Type Severity Reaction Status Date / Time metformin AdvReac Intermediate Restlessnes Verified 08/16/24 13:04 s Home Medications Medication Instructions Recorded Confirmed Type blood sugar diagnostic (DaticalTouch #100 ea 10/07/22 08/19/24 Rx Ultra Test strips) cyanocobalamin (vitamin B-12) 1,000 mcg IM MONTHLY #1 ea 10/07/22 08/19/24 Rx 1,000 mcg/mL injection kit [employer] Delica Plus Lancet 33 #300 ea 01/09/23 08/19/24 Rx gauge (lancets) pen needle, diabetic 32 gauge x #100 ea 06/12/23 08/19/24 Rx 5/32" (Easy Comfort [place]) atorvastatin 40 mg tablet (Lipitor) 40 mg PO HS 06/07/24 08/19/24 History cholecalciferol (vitamin D3) 50 50 mcg PO QAM 06/07/24 08/19/24 History mcg (2,000 unit) capsule (Vitamin D3) diltiazem HCl 360 mg 360 mg PO QAM 06/07/24 08/19/24 History capsule,extended release 24 hr insulin glargine 100 unit/mL (3 15 unit subcut QPM 06/07/24 08/19/24 History mL) subcutaneous pen multivitamin 1 tab PO QAM 06/07/24 08/19/24 History tramadol 50 mg tablet 50 mg PO Q6 PRN Pain 06/07/24 08/19/24 History apixaban 5 mg tablet (Eliquis) 5 mg PO BID #60 tabs 06/29/24 08/19/24 Rx diphenoxylate-atropine 2.5 1 tab PO BID PRN Diarrhea #30 tabs 07/23/24 08/19/24 Rx mg-0.025 mg tablet (Lomotil) inhalational spacing device #1 ea 07/23/24 08/19/24 Rx ondansetron HCl 8 mg tablet 8 mg PO Q8H 07/23/24 08/19/24 History prochlorperazine maleate 10 mg 10 mg PO Q6H PRN Nausea And 07/23/24 08/19/24 History tablet Vomiting methenamine hippurate 1 gram tablet 1 g PO BID #60 tabs 07/27/24 08/19/24 Rx vibegron 75 mg tablet (Gemtesa) 75 mg PO DAILY #30 tabs 07/27/24 08/19/24 Rx albuterol sulfate 90 mcg/actuation 2 puff inhalation Q4 PRN Shortness 07/30/24 08/19/24 Rx aerosol inhaler Of Breath Or Wheezing #8.5 grams levothyroxine 75 mcg tablet 75 mcg PO DAILY #90 tabs 08/03/24 08/19/24 Rx furosemide 20 mg tablet 20 mg PO DAILY #90 tabs 08/09/24 08/19/24 Rx losartan 25 mg tablet 25 mg PO QAM #90 tabs 08/10/24 08/19/24 Rx duloxetine 60 mg capsule,delayed 120 mg (2 x 60 mg) PO QAM 90 days 08/16/24 08/19/24 Rx release (Cymbalta) #180 caps calcium carbonate (Calcium 600) 600 mg PO QAM 08/19/24 08/19/24 History naratriptan 2.5 mg tablet 2.5 mg PO ONCE PRN DIRECTED 08/19/24 08/19/24 History potassium chloride 20 mEq 20 meq PO DAILY #30 tabs 08/21/24 08/21/24 Rx tablet,extended release Patient History Medical History Memory loss Migraine Recurrent UTI Hx MRSA infection Pt unsure "I had a blood infection" as per patient ( MSSA bacteremia) Hypothyroidism Gait disturbance Walker Frequent falls "Therapy doesn't help me. I am getting fitted for a brace this week to help with my leg weakness." as per patient most recent fall 06/05/24 History of kidney stones passed on own Edema "Sometimes, I don't know what it's from" as per patient Atrial fibrillation LISYG Cardio Ike On Eliquis MDD (major depressive disorder), recurrent severe, without psychosis Difficulty with speech Anxiety Depression Septic shock 01/12/24 [facility] IP s/p port removal MSSA bacteremia History of- Jan 2024- admitted to [facility]- treated with abx Anticoagulant long-term use Eliquis Infected venous access port hx patient states only ever had 1 and removed d/t infection- provider notes has had 2 and removed both times d/t infection History of blood transfusion Generalized weakness Lung nodules monitoring Urinary frequency Neuropathy Aortic stenosis Mild aortic stenosis (AV MG 16.7mmHg; AV peak velocity 2.70 m/s) per 06/03/24 ECHO - Dr Ramires Diabetes mellitus, type 2 IDDM Degenerative disc disease Hx of cardiac pacemaker Implanted 2019 (tachy-monica syndrome), [employer] device Follows with Dr. Ramires Liver mass PET scan shows 2.5 right hepatic lobe mass consistent with known hepatic metastasis - CCP - reason for port placement Anemia h/o blood transfusions Infiltrating ductal carcinoma of left breast Initial Dx 2015- s/p lumpectomy, XRT and anastrozole Metastatic breast cancer 03/2020, follows with [facility] Peripheral neuropathy Hands (B/L CTS) Obstructive sleep apnea "Resolved" s/p gastric bypass (? retested) Hypercholesterolemia Gastroesophageal reflux disease controlled, stable per pt Chronic pain Cervical spine disease Limited ROM / Painful as per patient Surgical History Port-A-Cath in place (06/11/24) Insertion MRI Compatible Access Port Right Internal Jugular(Right) - Kaushal Shah MD, FACS History of revision of total replacement of right knee joint Right knee TKA revision with spacer (07/11/2021): SAB at L3-4 (x2 attempts) + PNB at [facility]. No issues noted per post-op anesthesia progress note. History of lumpectomy of left breast Status post placement of cardiac pacemaker 2019 [employer] - [facility] [place] [facility] [place] Ramires H/O breast biopsy (05/29/23) Skin, left breast, 2 punch biopsies: In office procedure Dr. Alvarez - Fibrosing dermatitis. - See comment Status post revision of total replacement of right knee History of removal of Port-a-Cath (01/11/22) Infected port right anterior chest removed Dr. Shah History of carpal tunnel surgery of left wrist 06/2021 History of carpal tunnel surgery of right wrist Port-A-Cath in place hx - 05/2020 since removed d/t infection at port 12/2021 *hx patient states only ever had 1 and removed d/t infection- provider notes has had 2 and removed both times d/t infection History of colonoscopy (2022) History of evacuation of hematoma Hematoma right breast and right chest 08/31/13 Dr. Shah H/O bilateral hip replacements Status post repair of ventral hernia History of total knee arthroplasty Bilateral Status post total abdominal hysterectomy and bilateral salpingo-oophorectomy Status post lumbar spine surgery for decompression of spinal cord hardware present Status post panniculectomy History of section x1 Status post laparoscopic cholecystectomy Status post gastric bypass for obesity Status post arthroscopy of left shoulder Status post appendectomy Family History Unknown Breast cancer Emphysema lung Mother Diabetes Heart disease Father Heart disease Other No family history of adverse response to anesthesia Denies family history of Ovarian cancer Prostate cancer Coronary heart disease Colorectal cancer Social History Smoking Status: Former smoker Tobacco Type: Cigarettes Age Started Using Tobacco: 17; Age Quit Using Tobacco: 59; packs per day: 1; Second Hand Exposure: No; Do You Dip or Chew Tobacco: No; Hx Alcohol Use: No Hx Substance Use: No Preferred Language: Danish Communication Ability: Effective Visual Impairment: No Limitations Hearing Ability: Normal Paint Prepper Required: No Beliefs That Will Affect Care: None marital status: Current Living Situation: Spouse Current Living Situation Comment: [facility] current occupational status: retired Feels Safe at Home: Yes Childhood Exposure to Second-Hand Smoke: Yes Diet: diabetic caffeine: Yes Dental Care, Regularly: No Physical Activity Frequency: 1-2 Times per Week Seatbelt Use: always Sunscreen Use: No Assistive Devices: Walker and Other Results & Data Vital Signs (Past 12 Hours) Vital Signs Temp Pulse Pulse Resp BP Pulse Ox O2 Del Method 08/23/24 16:36 37 C 60 16 151/80 H 97 Room Air 08/23/24 13:55 73 08/23/24 11:04 36.7 C 60 18 153/76 H 96 Room Air 08/23/24 07:34 60 08/23/24 07:34 Room Air 08/23/24 07:11 36.7 C 60 18 188/77 H 96 Room Air Diagnostic Findings Diagnostics: 08/20 CT chest 1. Cardiomegaly with interstitial pulmonary edema, moderate pleural effusions with dependent bibasilar consolidation. 2. Mild patchy right upper lobe groundglass opacities may represent a superimposed infectious or inflammatory pneumonitis. 3. Progressive hepatic metastasis. 4. Stable 5 mm nodule of the right lower lobe. 5. No lymphadenopathy. Micro Data: 08/21 UCx: <1k 08/20 UCx: >3 types mixed organisms prior micro 07/06/24 UCx: Proteus mirabilis (campos-S) 06/21/23 UCx: ESBL E. coli (S-patricia/erta/nitrofurantoin/amikacin; R- Bactrim/cipro/levo) 03/19/24: ESBL Kleb pneumo 02/10/24 UCx: >3 types mixed organisms 01/26/24 UCx: Cari glabrata 01/18/24 Port tip Cx: NG 01/13 BCx x1: NG 01/12 BCx x1: NG 01/12/24 BCx x1: MSSA 01/07/24 UCx: 10-100K ESBL Kleb pneumo (S erta, patricia. I cipro, levo, nitrofurantoin. R gent, tobra, TMP/SMX) Antibiotic Summary: ertapenem (08/22 present) ceftriaxone (08/19 08/21) azithromycin
--- NOTE | 2024-08-23 22:48 | Hospitalist Progress Note ---
Date of Service August 23, 2024 Assessment & Plan (1) Pneumonia: Plan: Pneumonia in a 74 yo female with positive chest xray and leukocytosis Concern for possible sepsis WBC now downtrending. Ct scan of chest reviewed showed moderate pleural effusions, given normal renal function will try to aggressively diurese. Due to mets in liver, will add spironolactone to the lasix. Lung exam was benign though did have low breath sounds. will continue antibiotics MRSA was positive in the past, will hold MRS coverage for now. Only ~30% positive predictive value. given her oxygen requirements are stable, no indication for thoracocenthesis Patient has been tolerating diuretics. Plan UTI: added urine culture: negative switched to ertapenem due to previous urine cultures. continue pyridium scheduled. consulted ID. will monitor. may require further imaging Atrial fibrillation: pt is chronically anticoagulated with Eliquis, will hold as per above trop was 29 now 26, suspect demand ischemia in face of sepsis, not suspecting ACS now downtrending. Diabetes type 2, controlled: glycemic consult placed Breast cancer: - Metastatic breast cancer to liver - Localized breast cancer diagnosed 2015 - Metastatic breast cancer with hepatic lesion, ER 100%, diagnosed March 2020 - Chronic anemia in the setting of cancer treatments - Follows with Dr. De Luna at [facility] Admission and Anticipated Discharge Date Admission Date: August 19, 2024 Subjective 74 yo female reports that she continues to have dysuria. Physical Exam Physical Exam: General: Ill appearing female in NAD Skin:lower extremity edema HEENT: NC/AT, PERRL, EOMI Heart: +S1/S2, irregular, paced, no m/r/g Lungs: decreased breath sounds, but no wheezing or rales Abd: +BS, soft, NT/ND, no masses/organomegaly/ascites Ext: warm, no edema Neuro: grossly nonfocal. Results & Data Results & Data Vital Signs (Past 12 Hours) Vital Signs Temp Pulse Pulse Resp BP Pulse Ox O2 Del Method 08/23/24 22:42 36.8 C 60 18 174/79 H 94 Room Air 08/23/24 19:30 36.6 C 60 18 170/79 H 96 Room Air 08/23/24 16:36 37 C 60 16 151/80 H 97 Room Air 08/23/24 13:55 73 08/23/24 11:04 36.7 C 60 18 153/76 H 96 Room Air PG Care Time/CCT Total # of Minutes Spent Total Time Spent with Patient: Total time spent is greater than 50% in coordination of care (as documented) at patient's floor/unit and/or counseling patient: Coding Level of Care Code 88009 SUB INP/OBS CARE 3/50MIN Diagnoses Pneumonia J18.9
[2024-08-24 06:57] LABS: Hematocrit (blood only) 27.9 % (37.0-47.0); Hemoglobin 8.9 g/dl (12.0-16.0); Mean Corpuscular Hemoglobin 30.2 pg (25.0-34.0); Mean Corpuscular Hgb Conc 31.9 g/dL (32.0-36.0); Mean Corpuscular Volume 94.6 fL (80.0-100.0); Mean Platelet Volume 12.1 fL (9.4-12.4); Platelet Count 166 K/uL (130-400); RDW Coefficient of Variation 15.5 % (11.5-14.5); RDW Standard Deviation 54.1 fL (36.4-46.3); Red Blood Count 2.95 M/uL (4.20-5.40); White Blood Count 10.91 K/ul (4.8-10.8)
[2024-08-24 07:26] LABS: BUN Creatinine Ratio 33.9 (10-20); Calcium 8.8 mg/dl (8.6-10.3); Creatinine Clr Calc Pharmacy 73.1 ml/min; Potassium 4.2 mmol/L (3.5-5.1)
[2024-08-24] MEDS: PROCHLORPERAZINE 10 MG in SYRINGE 8 ML IV ONE (09:41)
[2024-08-24] MEDS: diphenhydrAMINE 50 MG/ML VIAL IV STA (09:41)
[2024-08-24] MEDS: OPTIRAY 320 100ml IV ONE (14:48)
--- NOTE | 2024-08-24 15:15 | CT Scan Report ---
CT SCAN OF THE ABDOMEN AND PELVIS WITH IV CONTRAST CLINICAL HISTORY: Dysuria. Evaluate for fistula. Breast cancer. COMPARISON STUDY: CT of the abdomen and pelvis May 13, 2024. Chest CT August 24, 2024. TECHNIQUE: Following the IV administration of 90 cc of Optiray 320, CT scan of the abdomen and pelvi s is performed from the lung bases to the proximal femora. Images are reviewed in the axial, sagittal , and coronal planes. IV contrast was administered without complication. A dose lowering technique wa s utilized adhering to the principles of ALARA. Oral contrast was administered. CT DOSE: 1177.52 mGy.cm FINDINGS: Moderate bilateral pleural effusions are similar to chest CT of August 20, 2024. Cardiomegal y. Pacer leads are partially imaged. No pneumatosis, free air or portal venous gas is present. Extens mary ellen hepatic metastases have significantly progressed since CT of May 13, 2024. Index peripherall y enhancing lesion with suspected central necrosis within the right hepatic lobe on image 69 measures 4.9 cm, previously 4.4 cm. There is no significant biliary ductal dilatation status post cholecystec rashaad. A probable gallstone within a gallbladder remnant is unchanged. Spleen, adrenal glands are unre markable. Bilateral renal calculi measure up to 6 mm. There are no ureteral calculi. There is no hydr onephrosis. Mild bladder wall thickening is noted. Images of the pelvis are degraded by streak artifa ct from bilateral hip arthroplasties. However, no gas within the bladder is present. There is no evid ence for diverticulitis. No fistula to the bladder is identified. There are postoperative findings wi thin the stomach. Dilated small bowel loop is unchanged. This is related to an anastomosis. No eviden ce for a bowel obstruction. There is no abdominal or pelvic lymphadenopathy. Anasarca is again noted. Postoperative findings within the spine are present. There are no suspicious lesions within the visu alized skeletal structures. IMPRESSION: 1. Extensive hepatic metastases which have significantly progressed since CT of May 13, 2024. 2. Cardiomegaly with moderate bilateral pleural effusions. 3. Bilateral nephrolithiasis. No ureteral calculi. No hydronephrosis. 4. Bladder wall thickening which could be correlated with urinalysis to exclude cystitis. Suboptimal evaluation of the pelvis due to artifact. However, no fistulas to the bladder identified. No gas with in the bladder. 5. Anasarca. ACT 112: Negative or not required by law. Electronically signed by: Eladio Keane M.D. 08/24/2024 3:13 PM
--- NOTE | 2024-08-24 15:32 | Infectious Disease Progress Nt ---
Date of Service August 24, 2024 Assessment & Plan (1) Urgency incontinence: (2) Recurrent UTI (urinary tract infection): Plan ID Problem List: #Dysuria, pyuria possible cystitis #Possible lichen sclerosus #Metastatic colon cancer on chemotherapy Impression: Faith Solorzano is a 73 yo F with metastatic breast cancer to liver (on liposomal doxorubicin), PPM (2019), R TKA c/b methicillin-R CoNS s/p 2 stage revision (2021), L TKA, L total shoulder replacement, bilateral FREDA, lumbar spinal fusion hardware, history of MSSA bacteremia (12/2023), recurrent UTI, who [facility] with shortness of breath, weakness, and chest pain. Also with dysuria. ID is consulted for dysuria and c/f possible UTI. The patient was seen by her PCP on 07/30 for cough and wheezing. She reportedly has been tried on steroids and antibiotics (per 07/23 PCP note, had been on doxycycline) and also intermittently on steroids, without improvement. Upon presentation to the ED, afebrile, WBC 19.35 Cr 0.67, AST/ALT/tbili wnl. CT chest with interstitial pulmonary edema, moderate pleural effusions with bibasilar consolidation, RUL GGOs possibly c/f infection, stable RLL 5 mm nodule. Pulmonary was consulted on 08/23 regarding pleural effusions and recommended to continue appropriate diuresis, and consider drainage if effusions increase in size or if becomes hypoxemic. Of note, the patient has been reporting dysuria. 08/20 UA showed >50 WBCs, 6-10 R BCs. Repeat UA on 08/21 with 10-20 WBCs, 902 RBCs. 08/20 UCx with mixed organisms; 08/21 UCx with <1k growth. She was initially on ceftriaxone without improvement of symptoms, then changed to ertapenem on 08/22 given prior UCx with ESBL. Patient was continued on pyridium. Discussion Pt with initial UA on 08/20 showing pyuria of >50 WBCs; repeat UA on 08/21 showing some improvement to 10-20 WBCs. UCx from 08/20 with mixed organisms, repeat UCx on 08/21 with no growth, suggestive of at least some response to antibiotics. 08/24 CT A/P with extensive hepatic mets that have progressed; bilateral nephrolithiasis without hydronephrosis, bladder wall thickening possibly c/w cystitis (no gas/fistulas), anasarca. Overall, the CT suggests possible cystitis and has stones without obstruction. Note pt with recent UCx from 06/21/24 with ESBL E. coli. Patient has already received a 3-day course of ceftriaxone followed by a 3-day course of ertapenem. Note that pt continuing to report what was described as dysuria despite UA/UCx suggestive of some response to ceftriaxone. Discussed the patients symptoms with her on 08/24. The patient reports a 2-year history of pain with urination. She had seen [facility] and urology in the past, and reports that she has tried vaginal estrogen for >1 month. When asked for clarification, she reports that the pain is only on the outside (no abdominal or suprapubic pain). On exam, the patient had stinging pain and thin, raw-appearing skin of her vulva. Wonder if what has been described as dysuria in the past is actually external vulvovaginal pain, which could represent lichen sclerosus rather than infectious process. Favor trial of topical steroids (e.g., clobetasol) for possible lichen sclerosus. Recommendations: - Has completed a 3 days of ceftriaxone followed by 3 days of ertapenem for possible cystitis - Favor trial of topical steroids (e.g., clobetasol) for possible lichen sclerosus - Continue to follow closely with primary care. Consider gynecologic evaluation if vulvar symptoms persist/worsen Plan discussed with Dr. Cox. Thank you for letting ID participate in the care of this patient. ID will sign off at this time. If questions, please contact the [facility] at [phone]. Jesenia Hughes MD, MHS Infectious Diseases [facility] Connect direct line: [phone] Admission and Anticipated Discharge Date Admission Date: August 19, 2024 Subjective Subsequent visit was provided via telemedicine using two-way real-time interactive telecommunication between the patient and the telemedicine provider. For the duration of the visit, the provider was performing the assessment from a different facility than the patient. This includesuse of bluetooth stethoscope forauscultationperformed by the telepresenter that the telemedicine provider can hear if described in the physical exam. Recapper contact information: Please call [facility] Call Center . (Phone Number For Physician Use Only) After establishing a telemedicine visit, patient was: Patient was verified with two unique identifiers, Patient/authorized rep acknowledged consent and understanding and Gave permission to continue telehealth session Time Spent with Patient: Subsequent => 55 min - Afebrile, WBC 10.9 - 08/24 CT A/P with extensive hepatic mets that have progressed; bilateral nephrolithiasis without hydronephrosis, bladder wall thickening possibly c/w cystitis (no gas/fistulas), anasarca - The patient reports a 2-year history of pain with urination. She had seen [facility] and urology in the past, and reports that she has tried vaginal estrogen for >1 month. When asked for clarification, she reports that the pain is only on the outside (no abdominal or suprapubic pain). Physical Exam Physical Exam: Exam obtained with aid of in-person telepresenter. General: Well-appearing, no acute distress HEENT: Conjunctivae non-injected, sclerae anicteric, MMM, OP clear. Resp: Respirations nonlabored. Abd: No lower abdominal or suprapubic tenderness : Purewick in place, orange-red urine (from pyridium). Vulvar exam reveals pinkish, thin, and whitish skin of the labia that is very tender. Skin: No rashes or lesions. Neuro: Alert & interactive. Grossly non-focal. Psych: Pleasant, appropriate. Results & Data Vital Signs (Past 12 Hours) Vital Signs Temp Pulse Pulse Resp BP Pulse Ox O2 Del Method 08/24/24 15:19 60 08/24/24 11:07 36.6 C 60 17 144/75 H 96 Room Air 08/24/24 07:49 60 08/24/24 07:49 Room Air 08/24/24 07:10 36.9 C 60 18 180/77 H 95 Room Air Diagnostic Findings Diagnostics: 08/24 CT A/P 1. Extensive hepatic metastases which have significantly progressed since CT of May 13, 2024. 2. Cardiomegaly with moderate bilateral pleural effusions. 3. Bilateral nephrolithiasis. No ureteral calculi. No hydronephrosis. 4. Bladder wall thickening which could be correlated with urinalysis to exclude cystitis. Suboptimal evaluation of the pelvis due to artifact. However, no fistulas to the bladder identified. No gas within the bladder. 5. Anasarca. 08/20 CT chest 1. Cardiomegaly with interstitial pulmonary edema, moderate pleural effusions with dependent bibasilar consolidation. 2. Mild patchy right upper lobe groundglass opacities may represent a superimposed infectious or inflammatory pneumonitis. 3. Progressive hepatic metastasis. 4. Stable 5 mm nodule of the right lower lobe. 5. No lymphadenopathy. Micro Data: 08/21 UCx: <1k 08/20 UCx: >3 types mixed organisms prior micro 07/06/24 UCx: Proteus mirabilis (campos-S) 06/21/23 UCx: ESBL E. coli (S-patricia/erta/nitrofurantoin/amikacin; R-Bactrim /cipro/levo) 03/19/24: ESBL Kleb pneumo 02/10/24 UCx: >3 types mixed organisms 01/26/24 UCx: Cari glabrata 01/18/24 Port tip Cx: NG 01/13 BCx x1: NG 01/12 BCx x1: NG 01/12/24 BCx x1: MSSA 01/07/24 UCx: 10-100K ESBL Kleb pneumo (S erta, patricia. I cipro, levo, nitrofurantoin. R gent, tobra, TMP/SMX) Antibiotic Summary: ertapenem (08/22 08/24) ceftriaxone (08/19 08/21) azithromycin
[2024-08-24] MEDS: CLOBETASOL PROPIONATE 0.05% CREAM 15 GM TUBE EXT SCH (17:05)
--- NOTE | 2024-08-24 22:51 | Hospitalist Progress Note ---
Date of Service August 24, 2024 Assessment & Plan (1) Pneumonia: Plan: Pneumonia in a 74 yo female with positive chest xray and leukocytosis Concern for possible sepsis WBC now downtrending. Ct scan of chest reviewed showed moderate pleural effusions, given normal renal function will try to aggressively diurese. Due to mets in liver, will add spironolactone to the lasix. Lung exam was benign though did have low breath sounds. will continue antibiotics for now. MRSA was positive in the past, will hold MRS coverage for now. Only ~30% positive predictive value. given her oxygen requirements are stable, no indication for thoracocenthesis Patient has been tolerating diuretics. Plan possible UTI: added urine culture: negative switched to ertapenem due to previous urine cultures. continue pyridium scheduled. d/w ID: pain was only in the vulva. perhaps this is actually lichen sclerosus consulted ID. appreciate input Ordered CT scan of abd/pelvis reviewed and was negative. Atrial fibrillation: pt is chronically anticoagulated with Eliquis, will hold as per above trop was 29 now 26, suspect demand ischemia in face of sepsis, not suspecting ACS now downtrending. Diabetes type 2, controlled: glycemic consult placed Breast cancer: - Metastatic breast cancer to liver - Localized breast cancer diagnosed 2015 - Metastatic breast cancer with hepatic lesion, ER 100%, diagnosed March 2020 - Chronic anemia in the setting of cancer treatments - Follows with Dr. De Luna at [facility] Admission and Anticipated Discharge Date Admission Date: August 19, 2024 Subjective Patient continues with dysuria. Physical Exam Physical Exam: General: 74 yo female in NAD Skin:lower extremity edema HEENT: NC/AT, PERRL, EOMI Heart: +S1/S2, irregular, paced, no m/r/g Lungs: clear Abd: +BS, soft, NT/ND, no masses/organomegaly/ascites Ext: warm, no edema Neuro: grossly nonfocal. Results & Data Results & Data Vital Signs (Past 12 Hours) Vital Signs Temp Pulse Pulse Resp BP Pulse Ox O2 Del Method 08/24/24 19:33 36.7 C 60 19 157/76 H 97 Room Air 08/24/24 15:19 60 08/24/24 15:00 36.6 C 71 19 130/73 98 Room Air 08/24/24 11:07 36.6 C 60 17 144/75 H 96 Room Air PG Care Time/CCT Total # of Minutes Spent Total Time Spent with Patient: Total time spent is greater than 50% in coordination of care (as documented) at patient's floor/unit and/or counseling patient: Coding Level of Care Code 35920 SUB INP/OBS CARE 3/50MIN Diagnoses Pneumonia J18.9
[2024-08-25 06:37] LABS: Hematocrit (blood only) 27.2 % (37.0-47.0); Hemoglobin 8.6 g/dl (12.0-16.0); Mean Corpuscular Hemoglobin 29.9 pg (25.0-34.0); Mean Corpuscular Hgb Conc 31.6 g/dL (32.0-36.0); Mean Corpuscular Volume 94.4 fL (80.0-100.0); Mean Platelet Volume 11.9 fL (9.4-12.4); Platelet Count 155 K/uL (130-400); RDW Coefficient of Variation 15.4 % (11.5-14.5); RDW Standard Deviation 53.5 fL (36.4-46.3); Red Blood Count 2.88 M/uL (4.20-5.40); White Blood Count 10.95 K/ul (4.8-10.8)
[2024-08-25 06:57] LABS: BUN Creatinine Ratio 28.4 (10-20); C Reactive Protein 6.32 mg/dl (0-0.5); Calcium 8.6 mg/dl (8.6-10.3); Potassium 4.3 mmol/L (3.5-5.1)
[2024-08-25 15:13] VITALS: RESP 18
[2024-08-25] MEDS: diphenhydrAMINE 50 MG/ML VIAL IV STA (17:35)
[2024-08-25] MEDS: PROCHLORPERAZINE 10 MG in SYRINGE 8 ML IV ONE (17:35)
[2024-08-25] MEDS: DIPHENOXYLATE/ATROPINE 2.5/0.025MG TAB PO PRN (20:32)
--- NOTE | 2024-08-25 21:20 | Hospitalist Progress Note ---
Date of Service August 25, 2024 Assessment & Plan (1) Pneumonia: Plan: Pneumonia in a 74 yo female with positive chest xray and leukocytosis Concern for possible sepsis WBC now downtrending. Ct scan of chest reviewed showed moderate pleural effusions, given normal renal function will try to aggressively diurese. Due to mets in liver, will add spironolactone to the lasix. Lung exam was benign though did have low breath sounds. completed antibiotics. MRSA was positive in the past, will hold MRS coverage for now. Only ~30% positive predictive value. given her oxygen requirements are stable, no indication for thoracocenthesis Patient has been tolerating diuretics. continue spironolactone Plan possible UTI: added urine culture: negative switched to ertapenem due to previous urine cultures. now stopped. will stop pyridium due to taking for 3 days. d/w ID: pain was only in the vulva. perhaps this is actually lichen sclerosus consulted ID. appreciate input Ordered CT scan of abd/pelvis reviewed and was negative. Atrial fibrillation: pt is chronically anticoagulated with Eliquis, will hold as per above trop was 29 now 26, suspect demand ischemia in face of sepsis, not suspecting ACS now downtrending. Diabetes type 2, controlled: glycemic consult placed Breast cancer: - Metastatic breast cancer to liver - Localized breast cancer diagnosed 2015 - Metastatic breast cancer with hepatic lesion, ER 100%, diagnosed March 2020 - Chronic anemia in the setting of cancer treatments - Follows with Dr. De Luna at [facility] Admission and Anticipated Discharge Date Admission Date: August 19, 2024 Subjective 74 yo female reports no new symptoms. SOB resolved. Feels weak in her lower extremieites and is having pain,which is chronic Physical Exam Physical Exam: General: 74 yo female in NAD Skin:lower extremity edema HEENT: NC/AT, PERRL, EOMI Heart: +S1/S2, irregular, paced, no m/r/g Lungs: clear Abd: +BS, soft, NT/ND, no masses/organomegaly/ascites Ext: warm, no edema Neuro: grossly nonfocal. Results & Data Results & Data Vital Signs (Past 12 Hours) Vital Signs Temp Pulse Pulse Resp BP Pulse Ox O2 Del Method 08/25/24 19:06 36.9 C 60 18 146/75 H 98 Room Air 08/25/24 15:12 36.9 C 59 L 18 151/74 H 98 Room Air 08/25/24 14:02 60 08/25/24 11:00 36.6 C 62 16 156/74 H 95 Room Air PG Care Time/CCT Total # of Minutes Spent Total Time Spent with Patient: Total time spent is greater than 50% in coordination of care (as documented) at patient's floor/unit and/or counseling patient: Coding Level of Care Code 67151 SUB INP/OBS CARE 3/50MIN Diagnoses Pneumonia J18.9
[2024-08-26 07:42] LABS: Hematocrit (blood only) 27.2 % (37.0-47.0); Hemoglobin 8.6 g/dl (12.0-16.0); Mean Corpuscular Hgb Conc 31.6 g/dL (32.0-36.0); Mean Corpuscular Volume 94.8 fL (80.0-100.0); Mean Platelet Volume 11.6 fL (9.4-12.4); Platelet Count 163 K/uL (130-400); RDW Coefficient of Variation 15.2 % (11.5-14.5); RDW Standard Deviation 52.9 fL (36.4-46.3); Red Blood Count 2.87 M/uL (4.20-5.40); White Blood Count 10.87 K/ul (4.8-10.8)
[2024-08-26 08:15] LABS: BUN Creatinine Ratio 31.1 (10-20); Calcium 8.8 mg/dl (8.6-10.3); Creatinine Clr Calc Pharmacy 70.7 ml/min; Potassium 4.5 mmol/L (3.5-5.1)
[2024-08-26 10:53] VITALS: BP 149/75; PULSE 64; TEMP 97.9; O2SAT 95
--- NOTE | 2024-08-26 11:38 | Discharge Summary ---
Discharge Summary Date of Service August 26, 2024 Principal Dx & Hospital Course #1 = Principal Diagnosis (1) Pneumonia: Patient was admitted for acute multi-lobar CAP (involving the bibasilar region and RUL, and which 08/20/2024, 9:[address] chest without contrast identified with infiltration/consolidation. Of note, patient was NOT septic on admission date 08/19/2024 as patient was afebrile @ 36.8 degrees Celsius, HR was less than 90 bpm (cf., actual HR 61 bpm), and RR was less than 20 breaths/minute (cf., actual RR 20 breaths/minute)(08/19/2024, 1:10pm). In addition, admission BP was high at 175/77 (08/19/2024, 1:10pm) and O2 saturation was normal at 96% on room air (08/19/2024, 1:10pm). Patient had an admission WBC 19.35, N83 L5 M11 (08/19/2024, 2:09pm). Patient has a discharge WBC 10.87, no differential (08/26/2024, 7:25am). Patient received ceftriaxone 1g IV daily x 3 doses (08/19/2024, 08/20/2024, 08/21/2024) and azithromycin 500mg PO daily x 6 doses (08/19/2024, 08/20/2024, 08/21/2024, 08/22/2024, 08/23/2024, 08/24/2024) while in [facility]. Patient will not continue with empiric antibiotics on hospital discharge to [facility] ([place], [place]) on discharge date 08/26/2024. Of note, 08/20/2024, 9:[address] chest without contrast also identified moderate bilateral pleural effusions, which were most likely caused by patient's acute bibasilar and RUL community acquired pneumonia. In addition to empiric ceftriaxone and azithromycin, patient also received her home-scheduled lasix 20mg PO daily and hospital-started spironolactone 100mg PO qam to attenuate moderate bilateral pleural effusions. Patient will continue both her home- sheduled lasix 20mg PO daily and hospital-started spironolactone 100mg PO qam on hospital discharge to [facility] ([place], [place]) on discharge date 08/26/2024. Plan Additional medical issues were addressed while patient remained in [facility] from admission date 08/19/2024 through discharge date 08/26/2024: 1. Infectious disease. No acute UTI. Patient ruled out for acute UTI given negative urine culture #2 (08/21/2024, 1:09pm) with < 1,000 cfu/mL. cf., urine culture #1 (08/20/2024, 1:00am) was indeterminate given the finding of > 3 types or organisms, suggesting of contamination of urine sample with indigenous skin austen. 2. Cardiology. Chronic/persistent atrial fibrillation, s/p PPM. Patient remained rate-controlled with home-scheduled diltiazem 360mg PO qam and actively anticoagulated with home-scheduled apixaban 5mg PO bid (given CHADS2-VASC score = 3 points (e.g., 2 points for age > 74 years, 1 point for female sex) while in [facility]. Patient will continue both home-scheduled medications on hospital discharge to [facility] ([place], [place]) on discharge date 08/26/2024. 3. Cardiology. Acute type II NSTEMI with nominal troponin-I elevation to 29.7 pg/mL (08/19/2024, 2:09pm) and 26.9 pg/mL (08/19/2024, 4:01pm) while in [facility]. cf., normal troponin-I range, 0-14 pg/mL. EKG ( 025, 1:21pm" V pacing at 63 bpm. QTC 489 (by my review). Etiology of nominal troponin-I elevation is attributed to demand ischemia caused by patient's acute bibasilar and RUL community-acquired pneumonia. Hence, I opted to observe this laboratory anomaly without further evaluation or intervention while patient remained in [facility]. 4. Cardiology. HTN. Poorly controlled with admission BP was high at 175/77 (08/19/2024, 1:10pm). Well-controlled with discharge BP 149/75 (08/26/2024, 11:59am). Patient received her home-scheduled losartan 25mg PO qam, her home- scheduled lasix 25mg PO qam, and hospital-started spironolactone 100mg PO qam to attenuate moderate bilateral pleural effusions as noted on 08/20/2024, 9:[address] chest without contrast. Patient will continue both her home-sheduled lasix 20mg PO daily and hospital-started spironolactone 100mg PO qam on hospital discharge to [facility] ([place]) on discharge date 08/26/2024. 5. Cardiology. Hyperlipidemia. Asymptomatic on home-scheduled atorvastatin 40mg PO qhs while in [facility]. Patient will continue this home-scheduled medication on hospital discharge to [facility] ([place]) on discharge date 08/26/2024. 6. Endocrinology. Insulin-dependent DM2 with HbA1c 6.2% (08/03/2024, 1:48pm). cf., admission serum glucose 145 mg/dL (08/19/2024, 2:09pm). cf., discharge serum glucose 80 mg/dL (08/26/2024, 7:25am). Instead of receiving patient's home-scheduled lantus 15 units SQ qpm, patient received hospital-started lantus 10 units SQ qpm while patient remained in [facility]. Patient will continue with hospital-started lantus 10 units SQ qpm on hospital discharge to [facility] ([place]) on discharge date 08/26/2024. 7. Endocrinology. Hypothyroidism. Patient has no goiter, lid lag, or pr optosis on exam. Patient appears to be euthyroid on home-scheduled synthroid 75ug PO daily while in [facility]. Hence, patient will continue her home-scheduled synthroid 75ug PO daily on hospital discharge to [facility] ([place]) on discharge date 08/26/2024. 8. Psychiatry. Major depression. Mild. No suicidal ideation. No homicidal ideation. Asymptomatic on home-scheduled duloxetine 120mg PO qam while in [facility]. Hence, patient will continue her home-scheduled duloxetine 120mg PO qam on hospital discharge to [facility] ([place]) on discharge date 08/26/2024. 9. Vascular. DVT prophylaxis. Patient did not receive either mechanical DVT prophylaxis (utilizing SCD to the lower extremities) or pharmacologic DVT prophylaxis (utilizing heparin 5000 units SQ q8 or q12) while in [facility] given actively anticoagulated with home-scheduled apixaban 5mg PO bid (given CHADS2-VASC score = 3 points (e.g., 2 points for age > 74 years, 1 point for female sex) while in [facility]. Patient will continue this home-scheduled medication on hospital discharge to [facility] ([place]) on discharge date 08/26/2024. Of note, patient has/had no complaints of calf pain, leg swelling, or pleurisy while in [facility]. 10. Pain Management. Patient reports 0/10 pain while in [facility]. Patient did not require her home-scheduled tylenol 1000mg PO q8 prn headache/fever, or her home-scheduled tramadol 50mg PO q6 prn moderate-severe pain while in [facility]. Subsequently, patient will continue both home-scheduled medications on hospital discharge to [facility] ([place]) on discharge date 08/26/2024. 11. Hematology. Chronic normocytic, hypochromic anemia with baseline Hb range, 7.3 - 9.7 g/dL (03/24/2020 - 08/10/2024). cf., admission Hb 10.3 g/dL, MCV 95.5, MCHC 32.6 (08/19/2024, 2:09pm). cf., discharge Hb 8.6 g/dL, MCV 94.8, MCHC 31.6 (08/26/2024, 7:25am). Patient reports no mucosal bleeding and remains hemodynamically stable. Patient did not require or receive any packed RBC transfusion(s) while in [facility]. Of note, etiology of chronic normocytic, hypochromic anemia is most probably due to anemia of chronic diseases, including (a) hypothyroidism, and (b) stage IV BRCA with liver mets. 12. Oncology. Stage IV BRCA with liver mets. Of note, patient did not receive any cancer treatment for her stage IV BRCA with liver metastases while in [facility] as such therapy was contra-indicated in treating her acute, multi-lobar (e.g., bibasilar and RUL) community acquired pneumonia. Of note, patient is still convalescing from her acute, multi-lobar (e.g., bibasilar and RUL) community acquired pneumonia, and needs to receive a course of daily physical therapy and occupational therapy service evaluations while in [facility] ([place]) in order to improve her generalized weakness / deconditioned state, and hence, patient will not receive any cancer treatment for her stage IV BRCA with liver metastases while in [facility] ([place]). Of final note, patient will follow up with her Oncologist Dr. Garrett De Luna @ [facility] on an outpatient basis AFTER patient is discharged from [facility] ([place]). 13. Fluids, electrolytes, nutrition. Patient tolerated a low sodium, low fat, carbohydrate consistent diet while in [facility] with POC glucose qac + qhs. Patient will continue this same diet and POC glucose qac + qhs on hospital discharge to [facility] ([place]) on discharge date 08/26/2024. 14. Disposition. Code status, FULL CODE @ home. ACLS was never performed. There were no adverse events noted with this hospitalization. Condition of patient remains fair. Patient demonstrated significant improvement in her principal admitting diagnosis of acute bibasilar/RUL CAP while in [facility] to the point that patient last received antibiotics on 08/25/2024, and is being discharged off antibiotics on 08/26/2024 to [facility] ([place]) to undergo daily PT/OT Service evaluations to optimize generalized weakness / physical deconditioning caused by acute bibasilar/RUL CAP. Patient will follow up with her PCP Dr. Lu Mcintosh and her Electronic Service Technician Dr. Garrett De Luna @ [facility], both within 1 week of hospital discharge. Of final note, I spoke with the patient at the bedside in [facility] Med-Surg bed #[id number], today, 08/26/2024, and the patient concurs with the assessment and plan as described above. Discharge time, 35 minutes. Of this time, 18 minutes were spent in coordinating patient's discharge. Admission HPI Per Admitting Provider Faith Solorzano is a 74yo female with history of metastatic breast carcinoma on chemotherapy presenting with SOB that has not improved over past few weeks.. Patient is complaiing about SOB on exertion, generalized weakness, ongestion and chest pain. Patient reports for the past month she has been having sporadic episodes of SOB which have been treated with steroids and antibiotics. She was seen on 07/30 for cough and wheezing at the PCP's office. She reports this did not help. She also tried a steroid taper but she continues to feel SOB. Patient denies any sick contacts. ROS: edema in lower extremities which is chronic. Discharge Exam Constitutional General: Comfortable, coherent, cooperative; wide awake and alert. Not confused, lethargic, or obtunded. Patient speaks in complete, fluent, and articulate sentences without pause, interruption, cough, or wheeze. HEENT: Normocephalic, atraumatic. Extra-ocular muscles intact. Pupils equally round and reactive to light. No nystagmus, gaze paresis, anisocoria, miosis, mydriasis, hyphema, scleral injection, conjunctivitis, or pterygium. No otorrhea or rhinorrhea. No pharyngeal erythema, edema, or discharge. Neck: Supple, no stridor, bruit, goiter, or hepato-jugular reflux. Jugular venous pressure is estimated to be 3 cm above the sternal angle of Alex, which in turn, is 5 cm above the level of the right atrium; with jugular venous pressure estimated to be 8 cm, then, there is no jugular venous distention on discharge exam 08/26/2024. Lymphatics: No cervical (anterior/posterior), supraclavicular, infraclav icular, axillary, epitrochlear, or inguinal adenopathy. Chest: Symmetric rise and fall with respirations. Non-tender to palpation. Lungs: Clear to auscultation and percussion. Heart: Regular rate and rhythm. S1 and S2 noted. No S3 or S4 summation gallop. No tripartite friction rub. Grade II/ early systolic murmur @ LLSB without radiation to the carotids, axilla, or back, and which remains invariant in regards to the respiratory cycle. Abdomen: Soft, non-tender, non-distended. No rebound, guarding, Santoro's sign, or organomegaly. Bowel sounds auscultated in all 4 quadrants. Extremities: No clubbing, cyanosis, or edema. 2+ pedal pulses bilaterally. Skin: No decubitus ulcer, exanthem, or enanthem. Genito-urinary: No urethral discharge. No fuentes catheter. Psychiatry: No homicidal ideation. No suicidal ideation. No flat affect; smiles appropriately. Discharge Plan Discharge Items Patient Disposition: Transfer [facility] Reason For Visit: PNEUMONIA Discharge Diagnosis: Acute bibasilar and RUL community acquired pneumonia Condition on Discharge: Fair Health Concerns: Of note, patient did not receive any cancer treatment for her stage IV BRCA with liver metastases while in [facility] as such therapy was contra-indicated in treating her acute, multi-lobar (e.g., bibasilar and RUL) community acquired pneumonia. Of note, patient is still convalescing from her acute, multi-lobar (e.g., bibasilar and RUL) community acquired pneumonia, and needs to receive a course of daily physical therapy and occupational therapy service evaluations while in [facility] ([place]) in order to improve her generalized weakness / deconditioned state, and hence, patient will not receive any cancer treatment for her stage IV BRCA with liver metastases while in [facility] ([place]). Activity: Resume your previous activity Bathing: No limitations Exercise/Sports: Gradually increase as tolerated Weightbearing: Full weightbearing Non-emergency contact: Primary Care Provider Call non-emergency contact if: you have any medication questions Follow-up/Referrals: Lu Mcintosh MD [Primary Care Provider] - Diet: Heart Healthy Addtl Attending Provider Instructions: (1) Please see your PCP Dr. Lu Mcintosh if you develop shortness of breath, cough, wheeze, chest pain, fevers, chills, or sweats. (2) Of note, patient did not receive any cancer treatment for her stage IV BRCA with liver metastases while in [facility] as such therapy was contra-indicated in treating her acute, multi-lobar (e.g., bibasilar and RUL) community acquired pneumonia. (3) Of note, patient is still convalescing from her acute, multi-lobar (e.g., bibasilar and RUL) community acquired pneumonia, and needs to receive a course of daily physical therapy and occupational therapy service evaluations while in [facility] ([place]) in order to improve her generalized weakness / deconditioned state, and hence, patient will not receive any cancer treatment for her stage IV BRCA with liver metastases while in [facility] ([place]). (4) Of final note, patient will follow up with her Oncologist Dr. Garrett De Luna @ [facility] on an outpatient basis AFTER patient is discharged from [facility] ([place]). Pending Studies at Discharge: No Stand-Alone Forms: My [facility] Skilled Items Patient informed of condition?: Yes DNR: No Discharge Level of Care: Skilled Communicable Disease: No Discharge Prognosis: Stable Lines: None Urinary Catheter: No Medications and DC Order Prescriptions: New insulin glargine [Lantus U-100 Insulin] 100 unit/mL Solution 10 unit SC HS Qty: 10 0RF spironolactone 100 mg Tablet 100 mg PO QAM Qty: 30 0RF acetaminophen [Tylenol Extra Strength] 500 mg Tablet 1,000 mg PO Q8H PRN (Reason: fever or pain) Qty: 90 0RF Continued (DME) OneTouch Ultra Test Strip See Rx Instructions .Route Qty: 100 5RF Rx Instructions: Test BS 3x daily cyanocobalamin (vitamin B-12) 1,000 mcg/mL kit 1,000 mcg IM MONTHLY Qty: 1 3RF Rx Instructions: ON THE (DME) lancets [OneTouch Delica Plus Lancet] 33 gauge misc See Rx Instructions .Route Qty: 300 3RF Rx Instructions: use to check bsg 3 times daily (DME) pen needle, diabetic [Easy Comfort Pen [place]] 32 gauge x 5/32" needle See Rx Instructions .Route Qty: 100 3RF Rx Instructions: As directed Eliquis 5 mg tablet 5 mg PO BID Qty: 60 5RF Hold Instructions: Resume on 06/14/24. levothyroxine 75 mcg tablet 75 mcg PO DAILY Qty: 90 3RF furosemide 20 mg tablet 20 mg PO DAILY Qty: 90 1RF losartan 25 mg tablet 25 mg PO QAM Qty: 90 3RF albuterol sulfate 90 mcg/actuation HFA aerosol inhaler 2 puff INHALATION Q4 PRN (Reason: Shortness Of Breath Or Wheezing) Qty: 8.5 5RF (DME) inhalational spacing device Spacer See Rx Instructions .Route Qty: 1 0RF Rx Instructions: As directed duloxetine [Cymbalta] 60 mg capsule,delayed release(DR/EC) 120 mg PO QAM 90 Days Qty: 180 3RF potassium chloride 20 mEq tablet extended release 20 meq PO DAILY Qty: 30 2RF methenamine hippurate 1 gram tablet 1 g PO BID Qty: 60 3RF calcium carbonate [Calcium 600] 600 mg calcium (1,500 mg) Tablet 600 mg PO QAM multivitamin Tablet 1 tab PO QAM cholecalciferol (vitamin D3) [Vitamin D3] 50 mcg (2,000 unit) Capsule 50 mcg PO QAM atorvastatin [Lipitor] 40 mg tablet 40 mg PO HS diltiazem HCl 360 mg capsule,extended release 24hr 360 mg PO QAM tramadol 50 mg tablet 50 mg PO Q6 PRN (Reason: Pain) Discontinued ondansetron HCl 8 mg tablet 8 mg PO Q8H prochlorperazine maleate 10 mg tablet 10 mg PO Q6H PRN (Reason: Nausea And Vomiting) diphenoxylate-atropine [Lomotil] 2.5-0.025 mg tablet 1 tab PO BID PRN (Reason: Diarrhea) Qty: 30 0RF Gemtesa 75 mg tablet 75 mg PO DAILY Qty: 30 2RF naratriptan 2.5 mg tablet 2.5 mg PO ONCE PRN (Reason: DIRECTED) insulin glargine 100 unit/mL (3 mL) insulin pen 15 unit subcut QPM Discharge Orders: Discharge Order (Routine); Ordered 08/26/24 Ordered By: Jake Galeana Admission Data Admit Date/Time: 08/19/24 15:03 Attending Provider: Jake Galeana Admit Provider: Ulysses Cox Primary Care Provider: Lu Mcintosh Other Providers: Ulysses Cox; [facility]; Lazara Maher [facility]; Calixto Green; Marcelo Felix; Naresh Medrano; Anthony Hummel; Jayashree Dowling Hospital Stay Data Consultations 08/19/24 15:51 ED Decision to Admit Stat 08/23/24 10:16 Consult Pulmonology Routine 08/23/24 10:17 Consult Infectious Diseases Routine Diagnostic Imagining Performed 08/20/24 09:55 CT chest diagnostic wo con Routine 08/24/24 09:28 CT Abd and Pelvis [CT abd pelvis oral and IV con] Urgent Pending Results Patient Have Any Pending Studies at Discharge: No Discharge Instructions Given to Patient (Per Discharging Provider) (1) Please see your PCP Dr. Lu Mcintosh if you develop shortness of breath, cough, wheeze, chest pain, fevers, chills, or sweats. (2) Of note, patient did not receive any cancer treatment for her stage IV BRCA with liver metastases while in [facility] as such therapy was contra-indicated in treating her acute, multi-lobar (e.g., bibasilar and RUL) community acquired pneumonia. (3) Of note, patient is still convalescing from her acute, multi-lobar (e.g., bibasilar and RUL) community acquired pneumonia, and needs to receive a course of daily physical therapy and occupational therapy service evaluations while in [facility] ([place]) in order to improve her generalized weakness / deconditioned state, and hence, patient will not receive any cancer treatment for her stage IV BRCA with liver metastases while in [facility] ([place]). (4) Of final note, patient will follow up with her Oncologist Dr. Garrett De Luna @ [facility] on an outpatient basis AFTER patient is discharged from [facility] ([place]). Total Time Total Time Spent Total Time Spent (In Minutes): 35 minutes. Of this time, 18 minutes were spent in coordinating patient's discharge. Coding Level of Care Code 70214 INP/OBS DISCH >30 MIN Diagnoses Pneumonia J18.9
--- NOTE | 2024-08-27 12:42 | Coding Query ---
CODING QUERY To promote full compliance with coding requirements relating to patient care, provider participation is requested in all cases of insurance coder uncertainty. Please assist us with the question(s) below: Coding Question(s): There is elevated troponin documented in the record and the Discharge Summary documents, " Cardiology. Acute type II NSTEMI with nominal troponin-I elevation to 29.7 pg/mL (08/19/2024, 2:09pm) and 26.9 pg/mL (08/19/2024, 4:01pm) while in [facility]. cf., normal troponin-I range, 0-14 pg/mL. EKG (08/19/2024, 1:21pm" V pacing at 63 bpm. QTC 489 (by my review). Etiology of nominal troponin-I elevation is attributed to demand ischemia caused by patient's acute bibasilar and RUL community-acquired pneumonia. Hence, I opted to observe this laboratory anomaly without further evaluation or intervention while patient remained in [facility]". Please specify below, in your clinical opinion, for clarity and for added supporting documentation, regarding Acute type II NSTEMI documentation: ( ) Possible Acute Type 2 NSTEMI ( ) Demand Ischemia with NO possible Acute Type 2 NSTEMI ( ) Other: Please Specify Physician's Response(s): Thank you Leonora Vallejo Principal Diagnosis: "that condition established after study, to be chiefly responsible for occasioning the admission of the patient to the hospital for care." Co-Existing Principal Diagnosis: "when two or more diagnoses equally meet the criteria for principal diagnosis as determined by the circumstances of admission, diagnostic work up, and/or therapy provided, and the Alphabetic Index, Tabular List, or another coding guideline does not provide sequencing direction, any one of the diagnoses may be sequenced first." "When the physician has documented what appears to be a current diagnosis in the body of the record, but has not included the diagnosis in the final diagnostic statement, the physician should be asked whether the diagnosis should be added." (Source Coding Clinic 2 QTR90. p3-4) FRANKIE
[2024-09-16] MEDS ORDERED: CYANOCOBALAMIN 1000 MCG/ML VIAL IM SCH (09:00)
== END 2024-08-26 14:00 | DRG 193 ==
LOC: ED 12:48 → SUATTDRO 15:03 → 2S 15:03

== ENCOUNTER 2024-10-25 18:29 | Inpatient (IN) ==
--- NOTE | 2024-10-25 18:58 | Emergency Department Note ---
Impression & Plan Acute hypoxemic respiratory failure, Metastatic breast cancer, Atrial fibrillation, Multifocal pneumonia ED Provider Note NAME: MUNIRA EDWARDS AGE: 74 SEX: F : 1950 ARRIVES VIA: Ambulance INFORMANT: Patient ED PROVIDER(S): James Lu MD CHIEF COMPLAINT: Shortness of breath PLAN: Disposition: Admit MEDICAL DECISION MAKING: The patient is a pleasant 74-year-old woman with a past medical history of atrial fibrillation on Eliquis, hypertension, hyperlipidemia hypothyroidism, metastatic breast cancer not currently on chemotherapy after complicated medical course of multifocal pneumonia admitted to this facility in August with subsequent month-long admission to [facility] for rehab who presents to the emergency department via EMS from home for worsening shortness of breath. The patient was discharged from [facility] to her home today. The patient's daughter reports that the patient has been on oxygen up until her discharge but that oxygen was not arranged for home and they understood that home health would arrange this but they do not arrive for their assessment until tomorrow. The patient arrived home today and after shortly being there began to experience increased shortness of breath and had a panic attack with worsening breathing and rhonchi developing. Patient's daughter describes that the patient has had fluctuating strength during her prolonged rehab stay despite several extensions. Patient's daughter feels that it is possible that successful rehab is possibly not realistic given the patient's chronic medical problems including her cancer which is not currently being treated due to her recent medical course. They are interested in seeking intermediate placement however. On evaluation the patient is acute and chronically ill-appearing but no distress, afebrile with blood pressure 140s/80s heart rate in the 90s and respiratory rate in the mid 20s with O2 saturation 88% on room air improved to 92% on 2 with 3 L nasal cannula. She appears euvolemic to hypervolemic. She exhibits rhonchi of bilateral mid and lower lung colin. EKG is paced without overt acute ischemia. Chest x-ray demonstrates patchy bilateral airspace opacities per my preliminary independent interpretation. WBC 20.3 K with neutrophilia but no left shift, nonspecific. H/H similar to prior. Platelets within normal limits. Chemistry without metabolic acidosis. VBG is unremarkable with pH of 7.39. Initial lactic acid 2.8 with repeat 1.6. AST is mildly elevated 91, nonspecific with normal total bilirubin and ALT. Initial high-sensitivity troponin 135.9, BNP is elevated at 1500 increased from prior values. Procalcitonin is elevated at 1.5. TSH 5.3 with free T4 within normal limits UA demonstrates WBCs and no bacteria with epithelial cells present. Blood cultures were obtained. Empiric treatment initiated with IV Zosyn and vancomycin. Patient and daughter agree with plan for admission for further management. Case was discussed with Dr. Rader [facility] hospital[place], who will evaluate the patient for admission. Further management per admitting team. Triage Nursing notes reviewed and agree them. Prior/external medical records reviewed Vital Signs: reviewed Differential diagnosis: Reactive airway disease, pneumonia, pneumothorax, COPD, CHF, infections, cardiac ischemia, pulmonary embolism, musculoskeletal, gastrointestinal, as well as other pathologies. ER treatment provided: See below. Diagnostics interpreted by me: ECG: Atrial sensed, ventricular paced rhythm, 96 bpm, no ectopy, no overt acute ischemia. Cardiac Monitoring: An order for continuous cardiac monitoring was placed and demonstrated atrial sensed, ventricular paced rhythm, 96 bpm, no ectopy. Laboratory studies: See below Imaging studies: See below Consultation(s): Case was discussed with Dr. Rader, [facility] hospitalist, who will evaluate the patient for admission. HPI: Per MDM. ROS: See above HPI for pertinent positives & negatives. A total of 10 systems reviewed and were otherwise negative. VITALS:See Below PHYSICAL EXAMINATION: GENERAL: Awake, alert, acute on chronically ill-appearing, in no distress HENT: Normocephalic, atraumatic. Oropharynx with dry mucous membranes and otherwise unremarkable. EYES: Normal conjunctiva. Sclera non-icteric. NECK: Supple. No nuchal rigidity. FROM. No JVD. RESPIRATORY: Rhonchi of bilateral mid and lower lung colin. CARDIAC: Regular rate, normal rhythm. Extremities warm and well perfused. Pulses equal. ABDOMEN: Soft, non-distended. No tenderness to palpation. No rebound or guarding. No masses. MUSCULOSKELETAL: Chest examination reveals no tenderness. The back is symmetrical on inspection without obvious abnormality. There is no CVA tenderness to palpation. No joint edema. LOWER EXTREMITIES: Calves are equal size bilaterally and non-tender. No edema. No discoloration. NEURO: Normal sensorium. No sensory or motor deficits noted. SKIN: No rash or jaundice noted. ED COURSE: Critical Care: I have personally spent greater than 35 minutes of critical care time in the direct management of this patient. This includes bedside care, interpretation of diagnostic studies, and testing, discussion with consultants, patient, and family members, and other required patient management activities. This 35 minutes is in excess of all separately billable procedures. James Lu MD Past Med/Surg History Problem List Multifocal pneumonia (Acute) Acute hypoxemic respiratory failure (Acute) Depression Intermittent palpitations Pancytopenia Degeneration of cervical intervertebral disc Cervical strain (Acute) Bilateral edema of lower extremity (Acute) Frequent falls (Acute) Lymphedema Palliative care by specialist Bilateral nephrolithiasis Breast skin changes Microalbuminuria Pain due to interstitial cystitis Chronic diarrhea MRSA (methicillin resistant staph aureus) culture positive (Acute) Diabetes type 2, controlled Carpal tunnel syndrome on both sides with surgical intervention Vitamin D deficiency Leukopenia (Acute) Memory loss Metastatic breast cancer Diabetic neuropathy pt denies Hyperglobulinemia Anticoagulant long-term use Tachy-monica syndrome Atrial fibrillation (Acute) follows with Dr Ramires Hypothyroidism Vitamin B12 deficiency (Chronic) Positive ESTEPHANIA (antinuclear antibody) (Chronic) Lumbar radiculopathy (Chronic) Lipodystrophy (Chronic) Gait disturbance (Chronic) Constipation (Chronic) Arthritis (Chronic) Medical History Weakness Elevated troponin Pneumonia Urgency incontinence Recurrent UTI (urinary tract infection) Memory loss Migraine Recurrent UTI Hx MRSA infection Pt unsure "I had a blood infection" as per patient ( MSSA bacteremia) Hypothyroidism Gait disturbance Walker Frequent falls "Therapy doesn't help me. I am getting fitted for a brace this week to help with my leg weakness." as per patient most recent fall 06/05/24 History of kidney stones passed on own Edema "Sometimes, I don't know what it's from" as per patient Atrial fibrillation LISYG Efrain Ramires On Eliquis MDD (major depressive disorder), recurrent severe, without psychosis Difficulty with speech Anxiety Septic shock 01/12/24 [facility] IP s/p port removal MSSA bacteremia History of- Jan 2024- admitted to [facility]- treated with abx Anticoagulant long-term use Eliquis Infected venous access port hx patient states only ever had 1 and removed d/t infection- provider notes has had 2 and removed both times d/t infection History of blood transfusion Generalized weakness Lung nodules monitoring Urinary frequency Neuropathy Aortic stenosis Mild aortic stenosis (AV MG 16.7mmHg; AV peak velocity 2.70 m/s) per 06/03/24 ECHO - Dr Ramires Diabetes mellitus, type 2 IDDM Degenerative disc disease Hx of cardiac pacemaker Implanted 2019 (tachy-monica syndrome), [employer] device Follows with Dr. Ramires Liver mass PET scan shows 2.5 right hepatic lobe mass consistent with known hepatic metastasis - CCP - reason for port placement Anemia h/o blood transfusions Infiltrating ductal carcinoma of left breast Initial Dx 2015- s/p lumpectomy, XRT and anastrozole Metastatic breast cancer 03/2020, follows with [facility] Peripheral neuropathy Hands (B/L CTS) Obstructive sleep apnea "Resolved" s/p gastric bypass (? retested) Hypercholesterolemia Gastroesophageal reflux disease controlled, stable per pt Chronic pain Cervical spine disease Limited ROM / Painful as per patient Surgical History Port-A-Cath in place (06/11/24) Insertion MRI Compatible Access Port Right Internal Jugular(Right) - Kaushal Shah MD, FACS History of revision of total replacement of right knee joint Right knee TKA revision with spacer (07/11/2021): SAB at L3-4 (x2 attempts) + PNB at [facility]. No issues noted per post-op anesthesia progress note. History of lumpectomy of left breast Status post placement of cardiac pacemaker 2019 [employer] - [facility] [place] Ramires H/O breast biopsy (05/29/23) Skin, left breast, 2 punch biopsies: In office procedure Dr. Alvarez - Fibrosing dermatitis. - See comment Status post revision of total replacement of right knee History of removal of Port-a-Cath (01/11/22) Infected port right anterior chest removed Dr. Shah History of carpal tunnel surgery of left wrist 06/2021 History of carpal tunnel surgery of right wrist Port-A-Cath in place hx - 05/2020 since removed d/t infection at port 12/2021 *hx patient states only ever had 1 and removed d/t infection- provider notes has had 2 and removed both times d/t infection History of colonoscopy (2022) History of evacuation of hematoma Hematoma right breast and right chest 08/31/13 Dr. Shah H/O bilateral hip replacements Status post repair of ventral hernia History of total knee arthroplasty Bilateral Status post total abdominal hysterectomy and bilateral salpingo-oophorectomy Status post lumbar spine surgery for decompression of spinal cord hardware present Status post panniculectomy History of section x1 Status post laparoscopic cholecystectomy Status post gastric bypass for obesity Status post arthroscopy of left shoulder Status post appendectomy Family History Unknown Breast cancer Emphysema lung Mother Diabetes Heart disease Father Heart disease Other No family history of adverse response to anesthesia Denies family history of Ovarian cancer Prostate cancer Coronary heart disease Colorectal cancer Social History Smoking Status: Former smoker Tobacco Type: Cigarettes Age Started Using Tobacco: 17; Age Quit Using Tobacco: 59; packs per day: 1; Second Hand Exposure: No; Do You Dip or Chew Tobacco: No; Hx Alcohol Use: No Hx Substance Use: No Preferred Language: Latvian Communication Ability: Effective Visual Impairment: No Limitations Hearing Ability: Normal 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 Beliefs That Will Affect Care: None marital status: Current Living Situation: Spouse Current Living Situation Comment: Was discharged from [facility] 10/25/24 current occupational status: retired Feels Safe at Home: Yes Safety Concerns: Feels Safe At This Time Childhood Exposure to Second-Hand Smoke: Yes Diet: diabetic caffeine: Yes Dental Care, Regularly: No Physical Activity Frequency: 1-2 Times per Week Seatbelt Use: always Sunscreen Use: No Assistive Devices: Denture - Upper, Denture - Lower, Glasses and Walker Allergies Allergies Allergy/AdvReac Type Severity Reaction Status Date / Time metformin AdvReac Intermediate Restlessnes Verified 10/25/24 19:44 s Home Meds Home Medications Medication Instructions Recorded Confirmed atorvastatin 40 mg tablet (Lipitor) 40 mg PO HS 06/07/24 10/25/24 cholecalciferol (vitamin D3) 50 50 mcg PO QAM 06/07/24 10/25/24 mcg (2,000 unit) capsule (Vitamin D3) diltiazem HCl 360 mg 360 mg PO QAM 06/07/24 10/25/24 capsule,extended release 24 hr multivitamin 1 tab PO QAM 06/07/24 10/25/24 tramadol 50 mg tablet 50 mg PO Q4H PRN Pain 06/07/24 10/25/24 calcium carbonate (Calcium 600) 600 mg PO QAM 08/19/24 10/25/24 bisacodyl 10 mg rectal suppository 10 mg MT DAILY PRN Constipation 10/25/24 10/25/24 camphor 4 %-methyl salicylate 30 1 applic topical BID PRN KNEE PAIN 10/25/24 10/25/24 %-menthol 10 % topical cream (Bengay Ultra Strength) dextrose 40 % oral gel (Glutose-15) 1 ea PO DIRECTED PRN 10/25/24 10/25/24 HYPOGLYCEMIA <60 duloxetine 60 mg capsule,delayed 120 mg PO DAILY 10/25/24 10/25/24 release sprinkle (Drizalma Sprinkle) insulin glargine 100 unit/mL 16 unit SC DAILY 10/25/24 10/25/24 subcutaneous solution (Lantus U-100 Insulin) loperamide 2 mg capsule 2 mg PO Q8H PRN Diarrhea 10/25/24 10/25/24 magnesium hydroxide 400 mg/5 mL 30 ml PO DAILY PRN Constipation 10/25/24 10/25/24 oral suspension (Milk of Magnesia) melatonin 10 mg tablet 10 mg PO HS 10/25/24 10/25/24 olopatadine 0.1 % eye drops 1 drp OPB DAILY PRN ITCHY EYES 10/25/24 10/25/24 oxycodone-acetaminophen 5 mg-325 1 tab PO Q4H PRN Pain 10/25/24 10/25/24 mg tablet potassium chloride 20 mEq 20 meq PO BID 10/25/24 10/25/24 tablet,extended release sennosides 8.6 mg-docusate sodium 1 tab-cap PO BID 10/25/24 10/25/24 50 mg tablet (Senna-S) sodium phosphates 19 gram-7 118 ml MT DAILY PRN Constipation 10/25/24 10/25/24 gram/118 mL enema (Fleet Enema) Previous Rx's Medication Instructions Recorded blood sugar diagnostic (OneTouch #100 ea 10/07/22 Ultra Test strips) OneTouch Delica Plus Lancet 33 #300 ea 01/09/23 gauge (lancets) pen needle, diabetic 32 gauge x #100 ea 06/12/23 5/32" (Easy Comfort Pen Adona) apixaban 5 mg tablet (Eliquis) 5 mg PO BID #60 tabs 06/29/24 inhalational spacing device #1 ea 07/23/24 methenamine hippurate 1 gram tablet 1 g PO BID #60 tabs 07/27/24 albuterol sulfate 90 mcg/actuation 2 puff inhalation Q4 PRN Shortness 07/30/24 aerosol inhaler Of Breath Or Wheezing #8.5 grams levothyroxine 75 mcg tablet 75 mcg PO DAILY #90 tabs 08/03/24 furosemide 20 mg tablet 20 mg PO DAILY #90 tabs 08/09/24 acetaminophen 500 mg tablet 1,000 mg (2 x 500 mg) PO Q8H PRN 08/26/24 (Tylenol Extra Strength) fever or pain #90 tabs Results & Data (ED) Vital Signs Vital Signs - 24 hr 10/25/24 18:37 10/25/24 18:38 10/25/24 18:42 Temperature 37.3 C Temperature Source Oral Pulse Rate 94 H 96 H 95 H Pulse Rate [Apical] Pulse Rate from SpO2 Sensor Pulse Rhythm Regular Pulse Rhythm [Apical] Pulse Strength Normal Pulse Strength [Apical] Respiratory Rate 26 H 20 Respiratory Effort / Characteristics Non-Labored Spontaneous Respiratory Depth Normal Respiratory Pattern Regular Blood Pressure 148/84 H 148/84 H Blood Pressure [Right Arm] Blood Pressure Mean 120 105 Blood Pressure Mean [Right Arm] Blood Pressure Position Lying Blood Pressure Position [Right Arm] Pulse Oximetry 88 L Oxygen Delivery Method Room Air Oxygen Flow Rate Sepsis Recent Fever Within 48 Hours No Sepsis New/Unexplained Change in Mental Status No Sepsis Action Taken by Nursing No Action Required Oxygen Flow Rate - Titration Pulse Oximetry Post Tiitration 10/25/24 18:42 10/25/24 18:42 10/25/24 18:42 Temperature Temperature Source Pulse Rate 93 H Pulse Rate [Apical] 97 H Pulse Rate from SpO2 Sensor Pulse Rhythm Regular Pulse Rhythm [Apical] Regular Pulse Strength Pulse Strength [Apical] Normal Respiratory Rate 20 20 Respiratory Effort / Characteristics Non-Labored Spontaneous Respiratory Depth Normal Respiratory Pattern Regular Blood Pressure Blood Pressure [Right Arm] 148/84 H Blood Pressure Mean Blood Pressure Mean [Right Arm] 105 Blood Pressure Position Blood Pressure Position [Right Arm] Sitting Pulse Oximetry 88 L 94 93 Oxygen Delivery Method Nasal Cannula Room Air Nasal Cannula Oxygen Flow Rate 0 2 Sepsis Recent Fever Within 48 Hours Sepsis New/Unexplained Change in Mental Status Sepsis Action Taken by Nursing Oxygen Flow Rate - Titration 3 Pulse Oximetry Post Tiitration 93 10/25/24 19:00 10/25/24 19:01 10/25/24 20:00 Temperature Temperature Source Pulse Rate 89 90 93 H Pulse Rate [Apical] Pulse Rate from SpO2 Sensor 91 H Pulse Rhythm Pulse Rhythm [Apical] Pulse Strength Pulse Strength [Apical] Respiratory Rate 26 H 19 21 Respiratory Effort / Characteristics Respiratory Depth Respiratory Pattern Blood Pressure 149/74 H 149/74 H 149/86 H Blood Pressure [Right Arm] Blood Pressure Mean 99 98 119 Blood Pressure Mean [Right Arm] Blood Pressure Position Blood Pressure Position [Right Arm] Pulse Oximetry 96 95 93 Oxygen Delivery Method Oxygen Flow Rate Sepsis Recent Fever Within 48 Hours Sepsis New/Unexplained Change in Mental Status Sepsis Action Taken by Nursing Oxygen Flow Rate - Titration Pulse Oximetry Post Tiitration Laboratory Data Attestation: I reviewed the patient's lab results. 10/25/24 18:58 10/25/24 18:58 Lab Results 10/25/24 10/25/24 Range/Units 18:58 19:53 WBC 20.31 H (4.8-10.8) K/ul RBC 3.69 L (4.20-5.40) M/uL Hgb 10.0 L (12.0-16.0) g/dl Hct 32.0 L (37.0-47.0) % MCV 86.7 (80.0-100.0) fL MCH 27.1 (25.0-34.0) pg MCHC 31.3 L (32.0-36.0) g/dL RDW Std Deviation 50.1 H (36.4-46.3) fL RDW Coeff of Thompson 16.0 H (11.5-14.5) % Plt Count 276 (130-400) K/uL MPV 11.8 (9.4-12.4) fL Immature Gran % (Auto) 0.8 % Neut % (Auto) 87.3 % Lymph % (Auto) 3.3 % [place] % (Auto) 8.0 % Eos % (Auto) 0.2 % Baso % (Auto) 0.4 % Neut # (Auto) 17.73 H (1.40-6.50) K/uL Lymph # (Auto) 0.67 L (1.20-3.40) K/uL [place] # (Auto) 1.62 H (0.11-0.59) K/uL Eos # (Auto) 0.05 (0.00-0.50) K/uL Baso # (Auto) 0.08 (0.00-0.20) K/uL Immature Gran # (Auto) 0.16 (0.01-0.20) K/uL Absolute Nucleated RBC 0.15 H (0.00-0.12) K/uL Nucleated RBC % (auto) 0.7 % VBG pH 7.39 (7.36-7.41) VBG pCO2 37 L (38-50) mmHg VBG pO2 46 mmHg VBG HCO3 22 mmol/L VBG O2 Saturation 72.8 % VBG Base Excess -2.2 mEq/L Sodium 134 L (136-145) mmol/L Potassium 4.8 (3.5-5.1) mmol/L Chloride 100 (98-107) mmol/L Carbon Dioxide 23 (21-32) mmol/L Anion Gap 11 (3-11) BUN 27 H (6-23) mg/dl Creatinine 0.84 (0.6-1.2) mg/dl Est Cr Clr Drug Dosing 51.1 ml/min eGFR 71.97 BUN/Creatinine Ratio 32.1 H (10-20) Glucose 261 H (70-99(Fasting)) mg/dl Lactate 2.8 H* (0.4-2.0) mmol/L Calcium 8.7 (8.6-10.3) mg/dl Phosphorus 4.1 (2.5-4.9) mg/dl Magnesium 1.6 L (1.7-2.4) mg/dl Total Bilirubin 0.9 (0.2-1.0) mg/dl AST 91 H (13-39) U/L ALT 45 (7-52) U/L Alkaline Phosphatase 283 H (34-104) U/L Troponin I High Sens 135.9 H* (0-14) pg/ml B-Natriuretic Peptide 1519 H (0-100) pg/ml Total Protein 6.0 (6.0-8.3) gm/dl Albumin 3.2 L (3.4-5.0) gm/dl Globulin 2.8 (2.5-4.0) gm/dl Albumin/Globulin Ratio 1.1 (0.9-2) Lipase 11 (11-82) U/L Procalcitonin 1.57 H (0-0.5) ng/ml TSH 5.317 H (0.300-4.500) uIu/ml Free T4 1.49 (0.61-1.60) ng/dl Urine Color Yellow Urine Appearance Cloudy A (Clear) Urine pH 5.5 (4.5-7.5) Ur Specific [place] 1.014 (1.000-1.030) Urine Protein 2+ H (Negative) Urine Glucose (UA) Negative (Negative) Urine Ketones Trace H (Negative) Urine Blood Trace H (Negative) Urine Nitrite Negative (Negative) Urine Bilirubin Negative (Negative) Urine Urobilinogen Negative (Negative) Ur Leukocyte Esterase 1+ H (Negative) Urine WBC (Auto) >50 H (0-5) /hpf Urine RBC (Auto) 0-2 (0-2) /hpf U Hyaline Cast (Auto) 6-10 H (0-2) /lpf U Epithel Cells (Auto) 3-5 H (0-2) /hpf Urine Bacteria (Auto) None Seen (None Seen) Urine Comment Administered Medications Apixaban (Apixaban 5 Mg Tablet) 5 mg PO BID [facility] Stop: 11/24/24 23:04 Last Admin: 10/25/24 23:52 Dose: 5 mg Documented By: BRIANNE Vancomycin HCl 1,250 mg/ (Sodium Chloride) 275 mls @ 200 mls/hr IV Q24H [facility] Stop: 10/28/24 05:59 Last Admin: 10/26/24 05:12 Dose: 200 mls/hr Documented By: BRIANNE Piperacillin Sod/Tazobactam Sod (Zosyn) 4.5 gm in 100 mls @ 25 mls/hr IV Q8H [facility]; Protocol Stop: 10/28/24 01:59 Last Infusion: 10/26/24 05:14 Dose: Infused Documented By: Admin: 10/26/24 01:41 Dose: 25 mls/hr Documented By: BRIANNE Melatonin (Melatonin 3 Mg Tab) 9 mg PO HS PRN PRN Reason: Sleep Stop: 11/24/24 23:04 Last Admin: 10/25/24 23:52 Dose: 9 mg Documented By: BRIANNE Oxycodone/Acetaminophen (Oxycodone/Acetaminophen 5mg/325mg Tab) 1 tab PO Q4H PRN PRN Reason: Pain not relieved by Tramadol Stop: 11/08/24 23:04 Last Admin: 10/26/24 02:24 Dose: 1 tab Documented By: BRIANNE Tramadol HCl (Tramadol Hcl 50 Mg Tablet) 50 mg PO Q4H PRN PRN Reason: Pain, first line Stop: 11/24/24 23:04 Last Admin: 10/26/24 01:41 Dose: 50 mg Documented By: BRIANNE Discontinued Medications Furosemide (Furosemide 40 Mg/4 Ml Vial) 40 mg IV ONE ONE Stop: 10/25/24 20:29 Last Admin: 10/25/24 21:33 Dose: 40 mg Documented By: BRYN Piperacillin Sod/Tazobactam Sod (Zosyn) 4.5 gm in 100 mls @ 200 mls/hr IV NOW ONE; Protocol Stop: 10/25/24 19:59 Last Infusion: 10/25/24 20:35 Dose: Infused Documented By: Admin: 10/25/24 19:40 Dose: 200 mls/hr Documented By: BRYN Vancomycin HCl 1,500 mg/ (Sodium Chloride) 530 mls @ 200 mls/hr IV NOW ONE Stop: 10/25/24 22:08 Last Infusion: 10/26/24 00:17 Dose: Infused Documented By: Admin: 10/25/24 20:39 Dose: 200 mls/hr Documented By: BRYN Sodium Chloride (Nss) 250 mls @ 999 mls/hr IV .Q16M ONE Stop: 10/25/24 19:55 Last Infusion: 10/25/24 22:25 Dose: Infused Documented By: Admin: 10/25/24 20:40 Dose: 999 mls/hr Documented By: BRYN Insulin Aspart (Insulin Aspart Per Unit Charge) 0 units SC ONE STA Stop: 10/25/24 21:41 Last Admin: 10/25/24 21:55 Dose: 3 units Documented By: LYNN Co-signed By: BRYN Magnesium Oxide (Magnesium Oxide 400 Mg Tab) 400 mg PO NOW STA Stop: 10/25/24 21:07 Last Admin: 10/25/24 21:33 Dose: 400 mg Documented By: [facility] Imaging Data Radiologist's Impression: Chest X-Ray 10/25/24 18:33 Chest radiograph, one view History: Chest pain Comparison: 12/30/2020 Findings/impression: Single AP view of the chest performed. No focal consolidation or pleural effusion. No pneumothorax. Cardiomegaly with a left chest wall dual-lead AICD again seen. Right chest wall port is present with catheter tip at the lower SVC. Left pleural effusion and bilateral perihilar pulmonary edema seen. There are also a few nodular opacities in the right lung, with underlying infection or malignancy not excluded. Left shoulder arthroplasty. Osteopenia. Degenerative right shoulder joint changes. Electronically signed by Quinn Allen 10-25-2024 8:11 PM Discharge Plan Visit Data Chief Complaint: Shortness of Breath/Dyspnea Stated Complaint: SOB ED Provider: James Lu Discharge Problem: Acute hypoxemic respiratory failure, Metastatic breast cancer, Atrial fibrillation, Multifocal pneumonia Patient Disposition: Admitted As Inpatient Condition: Serious Discharge Instructions Interventions: ED Discharge Assessment Last Done: 10/25/24 22:49 Discharge Problem: Atrial fibrillation Qualifiers: Atrial fibrillation type: unspecified Qualified Code(s): I48.91 - Unspecified atrial fibrillation
[2024-10-25 19:08] LABS: Base Excess VBG -2.2 mEq/L; HCO3 VBG 22 mmol/L; Oxygen Saturation VBG 72.8 %; PCO2 VBG 37 mmHg (38-50); PO2 VBG 46 mmHg; pH VBG 7.39 (7.36-7.41)
[2024-10-25 19:13] LABS: Hematocrit (blood only) 32.0 % (37.0-47.0); Hemoglobin 10.0 g/dl (12.0-16.0); Immature Granulocytes # (auto) 0.16 K/uL (0.01-0.20); Immature Granulocytes % (auto) 0.8 %; Mean Corpuscular Hemoglobin 27.1 pg (25.0-34.0); Mean Corpuscular Volume 86.7 fL (80.0-100.0); Platelet Count 276 K/uL (130-400); RDW Standard Deviation 50.1 fL (36.4-46.3); Red Blood Count 3.69 M/uL (4.20-5.40); White Blood Count 20.31 K/ul (4.8-10.8)
[2024-10-25] MEDS ORDERED: VANCOMYCIN CONSULT ACTIVE PRN ×2 (19:30→23:05)
[2024-10-25 19:32] LABS: Alanine Aminotransferase 45.0 U/L (7-52); Albumin Globulin Ratio 1.1 (0.9-2); Alkaline Phosphatase 283.0 U/L (34-104); Anion Gap 11.0 (3-11); Bilirubin,Total 0.9 mg/dl (0.2-1.0); Blood Urea Nitrogen 27.0 mg/dl (6-23); Calcium 8.7 mg/dl (8.6-10.3); Carbon Dioxide 23.0 mmol/L (21-32); Chloride 100.0 mmol/L (98-107); Creatinine Clr Calc Pharmacy 51.1 ml/min; Globulin 2.8 gm/dl (2.5-4.0); Glucose 261.0 mg/dl (70-99(Fasting)); Lipase 11.0 U/L (11-82); Magnesium 1.6 mg/dl (1.7-2.4); Potassium 4.8 mmol/L (3.5-5.1); Sodium 134.0 mmol/L (136-145); Total Protein 6.0 gm/dl (6.0-8.3)
[2024-10-25] MEDS: PIPERACILLIN/TAZOBACTAM 4.5 GM/100 ML BAG IV ONE (19:40)
[2024-10-25 19:47] LABS: Thyroid Stimulating Hormone 5.317 uIu/ml (0.300-4.500)
--- NOTE | 2024-10-25 20:11 | XRay Report ---
Chest radiograph, one view History: Chest pain Comparison: 12/30/2020 Findings/impression: Single AP view of the chest performed. No focal consolidation or pleural effusion. No pneumothorax. Cardiomegaly with a left chest wall dual-lead AICD again seen. Right chest wall port is present with catheter tip at the lower SVC. Left pleural effusion and bilateral perihilar pulmonary edema seen. There are also a few nodular opacities in the right lung, with underlying infection or malignancy not excluded. Left shoulder arthroplasty. Osteopenia. Degenerative right shoulder joint changes. Electronically signed by Quinn Allen 10-25-2024 8:11 PM
--- NOTE | 2024-10-25 20:17 | History & Physical Report ---
Date of Service October 25, 2024 Assessment & Plan (1) Acute hypoxemic respiratory failure: (2) Metastatic breast cancer: (3) Diabetes type 2, controlled: (4) Atrial fibrillation: (5) Hypothyroidism: Plan Patient is a 74yo F with PMHx notable for metastatic breast cancer, afib on chronic anticoag, tachy-monica syndrome, DM2, hypothyroidism, dyslipidemia, anxiety, and recent admission for PNA with subsequent rehab stay, who presented to ED on 10/25 with dyspnea. She was tachypneic, tachycardic, and hypoxic. Initial labs and imaging were suggestive of pulmonary edema and pneumonia. AHRF / PNA / pulmonary edema - Hypoxic to high 80% on RA on arrival, improved to 90%s on supplemental O2. VBG wnl except mildly low pCO2 at 37 - Currently on 3L NC; continue prn. No baseline O2 requirement. - Leukocytosis to 20.31, lactate 2.8, procal 1.57. CXR possibly with consolidation obscured by fluid. - Will order sputum culture & MRSA nares. Blood cx pending - Continue Zosyn; note h/o cefepime resistant infections. Continue vanc pending MRSA nares. - CXR showed significant pulmonary edema. BNP elevated at 1519. Pt normotensive. Will give 1 x 40mg lasix then continue 20mg BID17. Continue 20mEq KCl tabs - Stopped 1L nss infusion started in ED. - AM echo. Past echo showed EF 60-65% - Strict Is/Os. Daily weights. Hypomagnesemia - Initial Mg 1.6; trend daily - Will give 400mg Mag-Ox tab due to fluid restriction Elevated troponin - Initial Trop 135.9. Trend to peak - EKG without ischemic changes. Pt w/o chest pain or anginal sx. DM2 - Managed at home with 16u daily Lantus - Last A1c in 07/2024 was 6.2 - Initial Bsg today 261. Continue FSBG checks ACHS unless NPO - Continue Lantus. SSI BSG goal 110-140; CF 35; CR 12 Limb edema - RLE and LUE edema. No tenderness, warmth. Pt usually uses compression socks & sleeve. - Likely related to fluid overload, anticipate improvement with lasix - No current concern for VTE, but Doppler US reasonable if edema persists Confusion / word-finding difficulty - Unclear if ongoing, new, or chronic but worsening condition - Pt and dtr deny recent falls or head trauma. Neuro exam without notable deficits. - Continue to monitor for now; advise imaging if exam changes or confusion progresses Breast cancer w/ mets to liver - Follows w/ Dr. De Luna - Has MRI compatible R IJ port, has not had chemo in >6 months - related anemia; Hgb currently at baseline ~10 Afib / tachy-monica - s/p AICD, continue eliquis & diltiazem Hypothyroidism - TSH today 5.317, FT4 1.49; continue synthroid 75 mcg qd HLD - continue atorvastatin Anxiety - had previously been on Buspar, but dtr reports it was lost somewhere in all her hospitalizations. GERD / prior gastric bypass - previously on B12 shots, last level >1500 in Aug 2023. Continue Protonix. Diet: HH/DM2, fluid restriction to daily 1500ml VTE ppx: continue eliquis 5mg bid Dispo: admit to PCU-tele Code: full History of Present Illness Primary Care Provider: Lu Mcintosh MD Patient is here with daughter Rachelle at bedside, who provides much of the history due to patient's word-finding difficulty. She was admitted in August for similar symptoms, diagnosed with pneumonia, and treated with IV abx per ID recommendations. She was discharged to [facility]. Daughter reports she had frequent panic attacks and recurrent UTIs. This limited her rehab potential, insurance had to be repeatedly appealed to prolong stay, and she was finally sent home today. While being moved from her recliner to her bed, she had another panic attack. Due to not having HH, oxygen, or all the prescription medications available so soon after return home, family brought her to the ED. Her only complaints are SOB, which she says worsens when lying flat, and TEJADA. She denies having any chest pain, cough, or congestion. She has a history of anxiety but the panic attacks are a newer issue. She did not need oxygen at home previously but did during her past hospitalization and rehab Allergies Allergy/AdvReac Type Severity Reaction Status Date / Time metformin AdvReac Intermediate Restlessnes Verified 10/25/24 19:44 s Home Medications Medication Instructions Recorded Confirmed Type blood sugar diagnostic (SocialBroTouch #100 ea 10/07/22 08/19/24 Rx Ultra Test strips) OneTouch Delica Plus Lancet 33 #300 ea 01/09/23 08/19/24 Rx gauge (lancets) pen needle, diabetic 32 gauge x #100 ea 06/12/23 08/19/24 Rx 5/32" (Easy Comfort Pen [place]) atorvastatin 40 mg tablet (Lipitor) 40 mg PO HS 06/07/24 10/25/24 History cholecalciferol (vitamin D3) 50 50 mcg PO QAM 06/07/24 10/25/24 History mcg (2,000 unit) capsule (Vitamin D3) diltiazem HCl 360 mg 360 mg PO QAM 06/07/24 10/25/24 History capsule,extended release 24 hr multivitamin 1 tab PO QAM 06/07/24 10/25/24 History tramadol 50 mg tablet 50 mg PO Q4H PRN Pain 06/07/24 10/25/24 History apixaban 5 mg tablet (Eliquis) 5 mg PO BID #60 tabs 06/29/24 10/25/24 Rx inhalational spacing device #1 ea 07/23/24 08/19/24 Rx methenamine hippurate 1 gram tablet 1 g PO BID #60 tabs 07/27/24 10/25/24 Rx albuterol sulfate 90 mcg/actuation 2 puff inhalation Q4 PRN Shortness 07/30/24 10/25/24 Rx aerosol inhaler Of Breath Or Wheezing #8.5 grams levothyroxine 75 mcg tablet 75 mcg PO DAILY #90 tabs 08/03/24 10/25/24 Rx furosemide 20 mg tablet 20 mg PO DAILY #90 tabs 08/09/24 10/25/24 Rx calcium carbonate (Calcium 600) 600 mg PO QAM 08/19/24 10/25/24 History acetaminophen 500 mg tablet 1,000 mg (2 x 500 mg) PO Q8H PRN 08/26/24 10/25/24 Rx (Tylenol Extra Strength) fever or pain #90 tabs bisacodyl 10 mg rectal suppository 10 mg WI DAILY PRN Constipation 10/25/2402/10 History camphor 4 %-methyl salicylate 30 1 applic topical BID PRN KNEE PAIN 10/25/24 10/25/24 History %-menthol 10 % topical cream (Bengay Ultra Strength) dextrose 40 % oral gel (Glutose-15) 1 ea PO DIRECTED PRN 10/25/24 10/25/24 History HYPOGLYCEMIA <60 duloxetine 60 mg capsule,delayed 120 mg PO DAILY 10/25/24 10/25/24 History release sprinkle (Drizalma Sprinkle) insulin glargine 100 unit/mL 16 unit SC DAILY 10/25/24 10/25/24 History subcutaneous solution (Lantus U-100 Insulin) loperamide 2 mg capsule 2 mg PO Q8H PRN Diarrhea 10/25/24 10/25/24 History magnesium hydroxide 400 mg/5 mL 30 ml PO DAILY PRN Constipation 10/25/24 10/25/24 History oral suspension (Milk of Magnesia) melatonin 10 mg tablet 10 mg PO HS 10/25/24 10/25/24 History olopatadine 0.1 % eye drops 1 drp OPB DAILY PRN ITCHY EYES 10/25/24 10/25/24 History oxycodone-acetaminophen 5 mg-325 1 tab PO Q4H PRN Pain 10/25/24 10/25/24 History mg tablet potassium chloride 20 mEq 20 meq PO BID 10/25/24 10/25/24 History tablet,extended release sennosides 8.6 mg-docusate sodium 1 tab-cap PO BID 10/25/24 10/25/24 History 50 mg tablet (Senna-S) sodium phosphates 19 gram-7 118 ml WI DAILY PRN Constipation 10/25/24 10/25/24 History gram/118 mL enema (Fleet Enema) Past Med/Surg History Problem List Multifocal pneumonia (Acute) Acute hypoxemic respiratory failure (Acute) Depression Intermittent palpitations Pancytopenia Degeneration of cervical intervertebral disc Cervical strain (Acute) Bilateral edema of lower extremity (Acute) Frequent falls (Acute) Lymphedema Palliative care by specialist Bilateral nephrolithiasis Breast skin changes Microalbuminuria Pain due to interstitial cystitis Chronic diarrhea MRSA (methicillin resistant staph aureus) culture positive (Acute) Diabetes type 2, controlled Carpal tunnel syndrome on both sides with surgical intervention Vitamin D deficiency Leukopenia (Acute) Memory loss Metastatic breast cancer Diabetic neuropathy pt denies Hyperglobulinemia Anticoagulant long-term use Tachy-monica syndrome Atrial fibrillation (Acute) follows with Dr Ramires Hypothyroidism Vitamin B12 deficiency (Chronic) Positive ESTEPHANIA (antinuclear antibody) (Chronic) Lumbar radiculopathy (Chronic) Lipodystrophy (Chronic) Gait disturbance (Chronic) Constipation (Chronic) Arthritis (Chronic) Medical History Weakness Elevated troponin Pneumonia Urgency incontinence Recurrent UTI (urinary tract infection) Memory loss Migraine Recurrent UTI Hx MRSA infection Pt unsure "I had a blood infection" as per patient ( MSSA bacteremia) Hypothyroidism Gait disturbance Walker Frequent falls "Therapy doesn't help me. I am getting fitted for a brace this week to help with my leg weakness." as per patient most recent fall 06/05/24 History of kidney stones passed on own Edema "Sometimes, I don't know what it's from" as per patient Atrial fibrillation [facility] On Eliquis MDD (major depressive disorder), recurrent severe, without psychosis Difficulty with speech Anxiety Septic shock 01/12/24 [facility] IP s/p port removal MSSA bacteremia History of- Jan 2024- admitted to [facility]- treated with abx Anticoagulant long-term use Eliquis Infected venous access port hx patient states only ever had 1 and removed d/t infection- provider notes has had 2 and removed both times d/t infection History of blood transfusion Generalized weakness Lung nodules monitoring Urinary frequency Neuropathy Aortic stenosis Mild aortic stenosis (AV MG 16.7mmHg; AV peak velocity 2.70 m/s) per 06/03/24 ECHO - Dr Ramires Diabetes mellitus, type 2 IDDM Degenerative disc disease Hx of cardiac pacemaker Implanted 2019 (tachy-monica syndrome), [employer] device Follows with Dr. Ramires Liver mass PET scan shows 2.5 right hepatic lobe mass consistent with known hepatic metastasis - CCP - reason for port placement Anemia h/o blood transfusions Infiltrating ductal carcinoma of left breast Initial Dx 2015- s/p lumpectomy, XRT and anastrozole Metastatic breast cancer 03/2020, follows with [facility] Peripheral neuropathy Hands (B/L CTS) Obstructive sleep apnea "Resolved" s/p gastric bypass (? retested) Hypercholesterolemia Gastroesophageal reflux disease controlled, stable per pt Chronic pain Cervical spine disease Limited ROM / Painful as per patient Surgical History Port-A-Cath in place (06/11/24) Insertion MRI Compatible Access Port Right Internal Jugular(Right) - Kaushal Shah MD, FACS History of revision of total replacement of right knee joint Right knee TKA revision with spacer (07/11/2021): SAB at L3-4 (x2 attempts) + PNB at [facility]. No issues noted per post-op anesthesia progress note. History of lumpectomy of left breast Status post placement of cardiac pacemaker 2019 [facility] [place] Cardiology Dr Ramires H/O breast biopsy (05/29/23) Skin, left breast, 2 punch biopsies: In office procedure Dr. Alvarez - Fibrosing dermatitis. - See comment Status post revision of total replacement of right knee History of removal of Port-a-Cath (01/11/22) Infected port right anterior chest removed Dr. Shah History of carpal tunnel surgery of left wrist 06/2021 History of carpal tunnel surgery of right wrist Port-A-Cath in place hx - 05/2020 since removed d/t infection at port 12/2021 *hx patient states only ever had 1 and removed d/t infection- provider notes has had 2 and removed both times d/t infection History of colonoscopy (2022) History of evacuation of hematoma Hematoma right breast and right chest 08/31/13 Dr. Shah H/O bilateral hip replacements Status post repair of ventral hernia History of total knee arthroplasty Bilateral Status post total abdominal hysterectomy and bilateral salpingo-oophorectomy Status post lumbar spine surgery for decompression of spinal cord hardware present Status post panniculectomy History of section x1 Status post laparoscopic cholecystectomy Status post gastric bypass for obesity Status post arthroscopy of left shoulder Status post appendectomy Family History Unknown Breast cancer Emphysema lung Mother Diabetes Heart disease Father Heart disease Other No family history of adverse response to anesthesia Denies family history of Ovarian cancer Prostate cancer Coronary heart disease Colorectal cancer Social History Smoking Status: Former smoker Tobacco Type: Cigarettes Age Started Using Tobacco: 17; Age Quit Using Tobacco: 59; packs per day: 1; Second Hand Exposure: No; Do You Dip or Chew Tobacco: No; Hx Alcohol Use: No Hx Substance Use: No Preferred Language: Kittitian Communication Ability: Effective Visual Impairment: No Limitations Hearing Ability: Normal Addresser Required: No Beliefs That Will Affect Care: None marital status: Current Living Situation: Spouse Current Living Situation Comment: Was discharged from [facility] 10/25/24 current occupational status: retired Feels Safe at Home: Yes Safety Concerns: Feels Safe At This Time Childhood Exposure to Second-Hand Smoke: Yes Diet: diabetic caffeine: Yes Dental Care, Regularly: No Physical Activity Frequency: 1-2 Times per Week Seatbelt Use: always Sunscreen Use: No Assistive Devices: Denture - Upper, Denture - Lower, Glasses and Walker Review of Systems Constitutional: + fever and + chills; no weight loss Respiratory: + dyspnea and + wheezing; no cough Cardiovascular: + dyspnea at rest and + orthopnea; no ch est pain, no syncope and no calf pain Gastrointestinal: + diarrhea/loose stools; no abdominal pa in, no nausea, no vomiting and no dysphagia Genitourinary: no dysuria Musculoskeletal: + neck pain and + swelling; no limited r sybil of motion Neurologic: + headache(s) and + confusion; no falls, no localized weakness and no paresthesia Psychiatric: + panic attacks Hematologic / Lymphatic: no easy bleeding and no easy bruising Physical Exam Constitutional: + ill appearing and + frail appearing; n o acute distress Eyes: PERRL, conjunctivae normal, anicteric sclerae Neck: normal visual inspection and trachea midline; neck nontender Respiratory: normal respiratory effort and able to speak in complete sentences; does not use accessory muscles and no cough Auscultation: + diminished lung sounds (bilateral bases) and + wheezes (diffusely) Cardiovascular: Rate/Rhythm: regular rate and regular rhythm Heart Sounds: no murmur Vessels: + JVD Extremities: + edema (2+ LUE, trace RLE); no calf tenderness Gastrointestinal (Abdomen): normal bowel sounds, soft, nontender, no hepatosplenomegaly Inspection/Auscultation: abdomen not distended Musculoskeletal: Extremities: + joint enlargement (R knee) and strength 5/5 throughout; no cyanosis and no clubbing Skin: no rashes, warm and dry Neurologic: EOMI, PERRL, slight L eye droop, normal facial movement, SILT, moves all extremities, some word-finding difficulty, no dysarthria, normal phonation Psychiatric: A+Ox3, euthymic affect Results & Data Results & Data Vital Signs (Past 12 Hours) Vital Signs Temp Pulse Pulse Resp BP BP Pulse Ox 10/25/24 18:42 93 H 20 93 10/25/24 18:42 97 H 20 148/84 H 94 10/25/24 18:42 88 L 10/25/24 18:42 37.3 C 95 H 20 148/84 H 88 L 10/25/24 18:38 96 H O2 Del Method O2 Flow Rate 10/25/24 18:42 Nasal Cannula 2 10/25/24 18:42 Room Air 10/25/24 18:42 Nasal Cannula 0 10/25/24 18:42 Room Air 10/25/24 18:38 Supervising Physician Co-Signing Physician Notes Patient seen and examined, chart reviewed, case discussed with Dr. Saulo Ho and I agree with the assessment and plan as above except as otherwise noted Labs and images reviewed Faith Solorzano is a 74-year-old female with a past medical history of type II DM, breast cancer with mets to liver on doxorubicin, tachybradycardia syndrome, A- fib, and recent hospital admission 08/19 - 08/26 for multi lobar pneumonia treated with Rocephin/azithromycin during admission. Following discharge home she continued to be fatigued and hypoxic, and of note was on oxygen while at rehab however did not progress home on home oxygen. Patient reportedly with increased anxiety, dyspnea and desaturation presented back to the ER. On evaluation in the ER she has a leukocytosis of 20.3, compensated respiratory acidosis, elevated procalcitonin all suspicious for pneumonia. Additionally she has an elevation of 135.9 likely demand, BNP elevation from baseline of around 300 to 1519.On exam she has bibasilar crackles and light rales on the left, and left upper lobe crackles are appreciated. She has pretibial edema, slightly greater on the right than the left. JVD just above the angle of the clavicle with slight HJR although difficult to appreciate as patient has chronic difficulty straightening her neck. Acute hypoxic respiratory failure, suspect due to both multifocal pneumonia and HFpEF BNP markedly elevated, bibasilar rales, bilateral lower extremity edema are all present. History of preserved ejection fraction. She is on doxorubicin and is at risk of chemo related cardiomyopathy. Will update limited echo for EF. She does have a elevated troponin of 135 with repeat pending. She has not had clinical chest pain at any point. Suspect this is likely due to demand, she does not have anginal symptoms. EKG is atrial sensed ventricularly paced. She has a leukocytosis, fever/chills, dyspnea, elevated procalcitonin and chest x-ray from which lobar infiltrate cannot be excluded. The patient is consistent with pneumonia. She has a past history of ESBL Klebsiella infection. This is unfortunately cefepime resistant. She also has a history of MRSA nare positive. Given this we will continue vancomycin/Zosyn on admission. MRSA nare and sputum culture ordered. She has not been hypotensive. She has an elevated lactate with known liver metastasis and hypoxia. She shows signs of volume overload both clinically, radiographically, and BNP is markedly elevated. Suspect her elevated lactate is due to hypoxia, poor forward flow, and impaired clearance with liver disease rather than hypovolemia. NSS bolus discontinued and Lasix ordered. She has not been hypotensive. 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
[2024-10-25] MEDS: VANCOMYCIN HCL 1,500 MG in SODIUM CHLORIDE 0.9% 500 ML IV ONE (20:39)
[2024-10-25] MEDS: SODIUM CHLORIDE 0.9% 250 ML IV ONE (20:40)
[2024-10-25] MEDS ORDERED: GLUCOSE 40% GEL 15 GM TUBE PO PRN ×2 (21:07→23:05)
[2024-10-25] MEDS ORDERED: GLUCOSE 10 TAB/TUBE PO PRN (21:07)
[2024-10-25] MEDS ORDERED: GLUCAGON FOR INJ 1 MG VIAL SQ PRN (21:07)
[2024-10-25] MEDS ORDERED: CARBOHYDRATES FOR HYPOGLYCEMIA PO PRN (21:07)
[2024-10-25] MEDS ORDERED: DEXTROSE 50% 50 ML SYRINGE IV PRN (21:07)
[2024-10-25] MEDS ORDERED: PHARMACY GLYCEMIC MGMT CONSULT PRN (21:07)
[2024-10-25] MEDS: MAGNESIUM OXIDE 400 MG TAB PO STA (21:33)
[2024-10-25] MEDS: FUROSEMIDE 40 MG/4 ML VIAL IV ONE (21:33)
[2024-10-25 21:44] LABS: Appearance Urine Cloudy (Clear); Bacteria Urine Automated None Seen (None Seen); Glucose Urine UA Negative (Negative); RBC Urine Automated 0-2 /hpf (0-2); WBC Urine Automated >50 /hpf (0-5)
[2024-10-25] MEDS: INSULIN ASPART PER UNIT CHARGE SC STA (21:55)
[2024-10-25] MEDS ORDERED: MAGNESIUM HYDROXIDE SUSP 30 ML UDC PO PRN (23:05)
[2024-10-25] MEDS ORDERED: SOD PHOSPHATE/SOD BIPHOSPHATE ENEMA 132 ML BTL PR PRN (23:05)
[2024-10-25] MEDS ORDERED: LOPERAMIDE HCL 2 MG CAP PO PRN (23:05)
[2024-10-25] MEDS: MELATONIN 3 MG TAB PO PRN (23:52)
[2024-10-25] MEDS: APIXABAN 5 MG TABLET PO SCH (23:52)
[2024-10-26] MEDS: PIPERACILLIN/TAZOBACTAM 4.5 GM/100 ML BAG IV SCH (01:41)
[2024-10-26] MEDS: VANCOMYCIN HCL 1,250 MG in SODIUM CHLORIDE 0.9% 250 ML IV SCH ×2 (05:12→23:25)
[2024-10-26 05:54] LABS: Hematocrit (blood only) 26.5 % (37.0-47.0); Hemoglobin 8.4 g/dl (12.0-16.0); Immature Granulocytes # (auto) 0.08 K/uL (0.01-0.20); Immature Granulocytes % (auto) 0.6 %; Mean Corpuscular Hemoglobin 27.7 pg (25.0-34.0); Mean Corpuscular Volume 87.5 fL (80.0-100.0); Platelet Count 217 K/uL (130-400); RDW Standard Deviation 51.4 fL (36.4-46.3); Red Blood Count 3.03 M/uL (4.20-5.40); White Blood Count 14.35 K/ul (4.8-10.8)
[2024-10-26 06:18] LABS: Anion Gap 10.0 (3-11); Calcium 7.6 mg/dl (8.6-10.3); Carbon Dioxide 22.0 mmol/L (21-32); Chloride 104.0 mmol/L (98-107); Magnesium 1.3 mg/dl (1.7-2.4); Potassium 3.5 mmol/L (3.5-5.1); Sodium 136.0 mmol/L (136-145)
[2024-10-26 06:29] LABS: Blood Urea Nitrogen 21.0 mg/dl (6-23); Creatinine Clr Calc Pharmacy 62.9 ml/min; Glucose 155.0 mg/dl (70-99(Fasting))
--- NOTE | 2024-10-26 06:40 | Billing Data ---
Date of Service October 26, 2024 Coding Level of Care Code 18173 INT INP/OBS CARE
[2024-10-26] MEDS: LEVOTHYROXINE SODIUM 75 MCG TABLET PO SCH (06:47)
[2024-10-26] MEDS: MAGNESIUM SULFATE / D5W 1 GM/100 ML BAG IV SCH ×2 (06:53→08:19)
[2024-10-26] MEDS: MULTIVITAMIN TAB PO SCH (07:36)
[2024-10-26] MEDS: CALCIUM CARBONATE 1250MG TAB PO SCH (07:37)
[2024-10-26] MEDS: MAGNESIUM OXIDE 400 MG TAB PO SCH (07:37)
[2024-10-26] MEDS: CHOLECALCIFEROL 25 MCG (1000 UNITS) TAB PO SCH (07:37)
[2024-10-26] MEDS: FUROSEMIDE INJ 20 MG/2 ML VIAL IV SCH (07:38)
[2024-10-26] MEDS: DOCUSATE SODIUM/SENNA 50/8.6MG TAB PO SCH (07:38)
--- NOTE | 2024-10-26 08:04 | Hospitalist Progress Note ---
Date of Service October 26, 2024 Assessment & Plan (1) Acute hypoxemic respiratory failure: (2) Metastatic breast cancer: (3) Diabetes type 2, controlled: (4) Atrial fibrillation: (5) Hypothyroidism: Plan Patient is a 74yo F with PMHx notable for metastatic breast cancer originally l eft breast, afib on chronic anticoag, tachy-monica syndrome, DM2, hypothyroidism, dyslipidemia, anxiety, and recent admission for PNA with subsequent rehab stay, who presented to ED on 10/25 with dyspnea. She was tachypneic, tachycardic, and hypoxic. Initial labs and imaging were suggestive of pulmonary edema and pneumonia. AHRF / PNA / pulmonary edema - Hypoxic to high 80% on RA on arrival, still requiring substantial oxygen supplementation. VBG wnl except mildly low pCO2 at 37 - CT scan of the chest shows infiltrate versus effusion in the left base not completely consistent with malignancy - Leukocytosis persists procalcitonin is mildly elevated - Blood cx pending, mrsa screen positive - Zosyn and vancomycin for healthcare associated pneumonia -Updated daughter via phone - AM echo. Past echo showed EF 60-65% Elevated troponin demand ischemia due to illness - Initial Trop 135.9. Trend to peak - EKG without ischemic changes. Pt w/o chest pain or anginal sx. Atrial fibrillation remains rate controlled with diltiazem 360 DM2 - Managed at home with 16u daily Lantus - Last A1c in 07/2024 was 6.2 - Initial Bsg today 261. Continue FSBG checks ACHS unless NPO - Continue Lantus. SSI BSG goal 110-140; CF 35; CR 12 Limb edema does have history of hepatic metastasis - RLE and LUE edema. No tenderness, warmth. Pt usually uses compression socks & sleeve. - Likely related to fluid overload, poor nutrition anticipate improvement with lasix - No current concern for VTE, patient on Eliquis Confusion / word-finding difficulty, possible metabolic encephalopathy - Slight improvement on 10/26/2024 Breast cancer w/ mets to liver - Follows w/ Dr. De Luna - Has MRI compatible R IJ port, has not had chemo in >6 months - related anemia; Hgb currently at baseline ~10 Afib / tachy-monica - s/p AICD, continue eliquis & diltiazem Hypothyroidism - TSH today 5.317, FT4 1.49; continue synthroid 75 mcg qd HLD - continue atorvastatin Anxiety - had previously been on Buspar, but dtr reports it was lost somewhere in all her hospitalizations. GERD / prior gastric bypass - previously on B12 shots, last level >1500 in Aug 2023. Continue Protonix. Diet: HH/DM2, fluid restriction to daily 1500ml Admission and Anticipated Discharge Date Admission Date: October 25, 2024 Subjective Patient appears chronically ill weak frail and tired. She was not clear with regard to if she feels she has had enough and wishes to consider more palliative approach however at times she states she has a lot to live for months to keep on living and does not want to Remain significantly short of breath requiring substantial oxygen supplementation Physical Exam Physical Exam: Pulm exam is significantly abnormal with dullness at both bases but significantly dull about nursing home up her left lung field Extremities are with trace to 1+ edema bilaterally Results & Data Results & Data Vital Signs (Past 12 Hours) Vital Signs Temp Pulse Pulse Resp BP Pulse Ox O2 Del Method 10/26/24 02:28 98.4 F 60 18 154/69 H 94 Room Air 10/25/24 23:31 Nasal Cannula 10/25/24 23:15 98.1 F 63 18 141/81 H 92 Nasal Cannula 10/25/24 23:00 68 10/25/24 22:28 60 10/25/24 22:00 60 16 148/53 H 96 Room Air O2 Flow Rate 10/26/24 02:28 10/25/24 23:31 3 10/25/24 23:15 3 10/25/24 23:00 10/25/24 22:28 10/25/24 22:00 Laboratory Results Reviewed CBC reviewed chemistry PG Care Time/CCT Total # of Minutes Spent Total Time Spent with Patient: Total time spent is greater than 50% in coordination of care (as documented) at patient's floor/unit and/or counseling patient: Coding Level of Care Code 80188 SUB INP/OBS CARE 3/50MIN Diagnoses Acute hypoxemic respiratory failure J96.01 Metastatic breast cancer C50.919 Controlled type 2 diabetes mellitus without complication, with long-term current use of insulin E11.9; Z79.4 Diabetes mellitus complication status: without complication 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: with skilled nursing use Atrial fibrillation, unspecified type I48.91 Atrial fibrillation type: unspecified Hypothyroidism, unspecified type E03.9 Hypothyroidism type: unspecified (3) Diabetes type 2, controlled Diabetes mellitus complication status: without complication 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
[2024-10-26] MEDS: POTASSIUM CHLORIDE CRTAB 20 MEQ TABCR PO SCH (08:14)
[2024-10-26] MEDS: INSULIN ASPART PER UNIT CHARGE SC SCH (08:14)
[2024-10-26] MEDS: LANTUS PER UNIT CHARGE SQ SCH (08:14)
[2024-10-26] MEDS ORDERED: LANTUS PER UNIT CHARGE SQ SCH (09:00)
[2024-10-26] MEDS ORDERED: LANTUS PER UNIT CHARGE SC SCH (09:00)
--- NOTE | 2024-10-26 09:13 | Pharmacy Report ---
Pharmacy PK ABX Note - Date of Service October 26, 2024 - Assessment and Plan Assessment 74 year old F receiving empiric vancomycin and Zosyn for treatment of possible CAP. Pertinent microbiologic data includes: Positive MRSA Nasal Swab, blood/urine cultures pending. Pertinent PMH includes metastatic breast cancer (no chemotherapy >6 months) and T2DM. History of MDROs growing in urine (ESBL producing E.coli/K. pneumoniae). Afebrile, leukocytosis improved overnight, renal function at/near baseline. Day # 1 of antimicrobial therapy. Plan Vancomycin * Loading dose: 1500 mg IV x 1 * Maintenance dose: 1250 mg IV every 18 hours * Regimen is predicted to achieve target AUC/FERNANDO of 400-600 mg/L.hr * Will order vanco level if therapy continued beyond 48 hours Pharmacy will continue to follow and will adjust dose/frequency as necessary. Thank you. Pharmacy has transitioned to AUC monitoring for vancomycin. AUC/FERNANDO is the preferred PK/PD target and is associated with decreased risk of nephrotoxicity compared to traditional trough targets.
--- NOTE | 2024-10-26 09:18 | Pharmacy Report ---
Pharmacy Glycemic Short Note 2 - Date of Service October 26, 2024 - Glycemic Short BSG Results (Last 24 hours): 10/25/24 10/25/24 10/26/24 18:58 21:46 05:21 Glucose 261 H 155 H POC Glucose 228 H 10/26/24 07:48 Glucose POC Glucose 175 H OUTPATIENT ANTIDIABETIC REGIMEN: * Lantus 16 units SC daily HbA1c: 8.4% (09/20/24) ASSESSMENT: * CHARLEE is a 74 year old female w/ history of metastatic breast cancer and T2DM being treated for acute respiratory failure possibly secondary to CAP * Empiric vancomycin/Zosyn at this time * Pharmacy consulted for glycemic management, blood sugar of 261 mg/dL on presentation * No steroids or obvious glycemic stressors besides infection * Weight-based stress of 2 Novolog parameters w/ 0.1-0.2 unit/kg basal for today PLAN FOR INPATIENT GLYCEMIC CONTROL: * Basal insulin * Lantus 10 units SQ daily * Reassess in AM * Bolus insulin * NovoLog per scale ACHS or Q6hrs while NPO * Goal Range: Low 120 mg/dL - High 160 mg/dL * Correction Factor: 45 mg/dL/unit * Nutritional / Prandial insulin per carb ratio of 1 unit per 15 grams CHO consumed
--- NOTE | 2024-10-26 09:42 | XCELERA ---
[id number]
[2024-10-26] MEDS: ALBUTEROL HFA 8 GM INHALER INH PRN (11:57)
--- NOTE | 2024-10-26 12:06 | Electrocardiogram Report ---
Test Reason : Blood Pressure : */* mmHG Vent. Rate : 96 BPM Atrial Rate : 96 BPM P-R Int : 196 ms QRS Dur : 160 ms QT Int : 418 ms P-R-T Axes : 28 -84 85 degrees QTcB Int : 528 ms Atrial-sensed ventricular-paced rhythm Abnormal ECG When compared with ECG of 19-Aug-2024 13:21, Vent. rate has increased by 33 bpm Confirmed by Quinn Edmondson ([id number]) on 10/26/2024 12:05:35 PM Referred By: Confirmed By: Quinn Edmondson
--- NOTE | 2024-10-26 13:32 | CT Scan Report ---
CT chest diagnostic wo con CT DOSE: 575.32 mGy.cm CLINICAL HISTORY: 74 years-old Female with eval left base for malignancy. Acute chest pain or shortn ess of breath TECHNIQUE: Multiaxial CT images of the chest were performed without contrast. A dose lowering techni que was utilized adhering to the principles of ALARA. COMPARISON: 08/20/2024 FINDINGS: No thyroid nodule identified. Subcentimeter mediastinal and hilar lymph nodes are present. Moderate cardiomegaly with small pericardial effusion. Moderate to extensive coronary artery calcific ations. Left subclavian pacer. Dilated main pulmonary artery suggestive of pulmonary arterial hyperte nsion again noted. Moderate layering pleural effusions redemonstrated along with associated intralobular septal thickeni ng. There is no pneumothorax. The previously noted 5 mm right lower lobe pulmonary nodule is obscured by consolidation. Multifocal patchy groundglass and consolidative opacities are noted bilaterally, l eft greater than right. There is left lower lobe consolidation with volume loss. Central airways are patent. Hepatic metastasis redemonstrated. A 5 cm right hepatic lobe mass is unchanged. Streak artifact from left shoulder arthroplasty. Degenerative changes of the right shoulder and spine. Right IJ Infuse-a-P ort catheter. There are a few healed chronic right-sided rib fractures noted. IMPRESSION: 1. Cardiomegaly with interstitial pulmonary edema, moderate pleural effusions with left greater than right bibasilar consolidation. 2. Multilobar distribution of patchy alveolar opacities may represent alveolar pulmonary edema versus multifocal pneumonia. 3. Subcentimeter mediastinal and hilar lymph nodes. 4. Multifocal hepatic metastasis redemonstrated. ACT 112: Negative or not required by law. Electronically signed by: Jeremy Batres M.D. 10/26/2024 1:31 PM
[2024-10-26] MEDS ORDERED: NON-FORMULARY MEDICATION (Melatonin 10 mg Tablet) PO SCH (21:00)
[2024-10-27] MEDS: HEPARIN 100 UNIT/ML 5ML FLUSH FLUSH PRN (06:02)
[2024-10-27 06:24] LABS: Hematocrit (blood only) 31.0 % (37.0-47.0); Hemoglobin 9.5 g/dl (12.0-16.0); Immature Granulocytes # (auto) 0.09 K/uL (0.01-0.20); Immature Granulocytes % (auto) 0.6 %; Mean Corpuscular Hemoglobin 27.1 pg (25.0-34.0); Mean Corpuscular Volume 88.6 fL (80.0-100.0); Platelet Count 240 K/uL (130-400); RDW Standard Deviation 51.9 fL (36.4-46.3); Red Blood Count 3.50 M/uL (4.20-5.40); White Blood Count 14.45 K/ul (4.8-10.8)
[2024-10-27 07:21] LABS: Anion Gap 10.0 (3-11); Blood Urea Nitrogen 20.0 mg/dl (6-23); Calcium 8.3 mg/dl (8.6-10.3); Carbon Dioxide 27.0 mmol/L (21-32); Chloride 100.0 mmol/L (98-107); Creatinine Clr Calc Pharmacy 60.4 ml/min; Glucose 150.0 mg/dl (70-99(Fasting)); Magnesium 1.7 mg/dl (1.7-2.4); Potassium 3.7 mmol/L (3.5-5.1); Sodium 137.0 mmol/L (136-145)
[2024-10-27] MEDS: LANTUS PER UNIT CHARGE SQ SCH (09:02)
[2024-10-27] MEDS: busPIRone 5 MG TAB PO SCH (11:39)
--- NOTE | 2024-10-27 17:08 | Hospitalist Progress Note ---
Date of Service October 27, 2024 Assessment & Plan (1) Acute hypoxemic respiratory failure: (2) Metastatic breast cancer: (3) Diabetes type 2, controlled: (4) Atrial fibrillation: (5) Hypothyroidism: Plan Patient is a 74yo F with PMHx notable for metastatic breast cancer originally l eft breast, afib on chronic anticoag, tachy-monica syndrome, DM2, hypothyroidism, dyslipidemia, anxiety, and recent admission for PNA with subsequent rehab stay, who presented to ED on 10/25 with dyspnea. She was tachypneic, tachycardic, and hypoxic. Initial labs and imaging were suggestive of multifocal pneumonia and residual pleural effusions AHRF / PNA / pulmonary edema Multifocal pneumonia with concern for gram-negative pneumonia - - CT scan of the chest shows multifocal infiltrates plus residual effusion in the left base not completely consistent with malignancy - Leukocytosis persists procalcitonin is mildly elevated - Blood cx pending, mrsa screen positive - Zosyn and vancomycin for healthcare associated pneumonia -Updated daughter via phone 10/26 left voicemail 10/27 - AM echo. Past echo showed EF 60-65% Elevated troponin demand ischemia due to illness - Initial Trop 135.9. Trend to peak - EKG without ischemic changes. Pt w/o chest pain or anginal sx. Atrial fibrillation remains rate controlled with diltiazem 360 DM2 - Managed at home with 16u daily Lantus - Last A1c in 07/2024 was 6.2 - Initial Bsg today 261. Continue FSBG checks ACHS unless NPO - Continue Lantus. SSI BSG goal 110-140; CF 35; CR 12 Limb edema does have history of hepatic metastasis - RLE and LUE edema. No tenderness, warmth. Pt usually uses compression socks & sleeve. - Likely related to fluid overload, poor nutrition anticipate improvement with lasix - No current concern for VTE, patient on Eliquis Confusion / word-finding difficulty, possible metabolic encephalopathy - Slight improvement on 10/26/2024 patient does take opiates and is also concern for anxiety taking buspirone which was requested to be restarted on 10/27/2024 Breast cancer w/ mets to liver - Follows w/ Dr. De Luna currently not on active treatment has not seen for some time and family requested reconnection She is not able to be actively treated at this time can have outpatient follow- up - Has MRI compatible R IJ port, has not had chemo in >6 months - related anemia; Hgb currently at baseline ~10 Afib / tachy-monica - s/p AICD, continue eliquis & diltiazem Hypothyroidism - TSH today 5.317, FT4 1.49; continue synthroid 75 mcg qd HLD - continue atorvastatin Anxiety -resuming BuSpar 10/27/2024 GERD / prior gastric bypass - previously on B12 shots, last level >1500 in Aug 2023. Continue Protonix. Diet: HH/DM2, fluid restriction to daily 1500ml Admission and Anticipated Discharge Date Admission Date: October 25, 2024 Subjective Patient appears chronically ill , complains of some anxiety on 10/27/24 She continues to want to move forward with acute treatment shortness of breath is improving and oxygen requirement is lessening Physical Exam Physical Exam: Pulm exam is significantly abnormal with dullness at both bases but significantly dull about retirement up her left lung field Extremities are with trace to 1+ edema bilaterally Results & Data Results & Data Vital Signs (Past 12 Hours) Vital Signs Temp Pulse Resp BP Pulse Ox O2 Del Method O2 Flow Rate 10/27/24 15:22 97.9 F 60 16 142/61 H 93 Nasal Cannula 1 10/27/24 11:31 98.2 F 60 16 148/70 H 95 Room Air 3 10/27/24 10:00 Nasal Cannula 3 10/27/24 07:43 98.1 F 58 L 18 152/71 H 96 Nasal Cannula 6 Laboratory Results Reviewed CBC reviewed chemistry PG Care Time/CCT Total # of Minutes Spent Total Time Spent with Patient: Total time spent is greater than 50% in coordination of care (as documented) at patient's floor/unit and/or counseling patient: Coding Level of Care Code 23128 SUB INP/OBS CARE 3/50MIN Diagnoses Acute hypoxemic respiratory failure J96.01 Metastatic breast cancer C50.919 Controlled type 2 diabetes mellitus without complication, with long-term current use of insulin E11.9; Z79.4 Diabetes mellitus long term care pharmacist insulin use: with fci use Diabetes mellitus complication status: without complication Atrial fibrillation, unspecified type I48.91 Atrial fibrillation type: unspecified Hypothyroidism, unspecified type E03.9 Hypothyroidism type: unspecified (3) Diabetes type 2, controlled Diabetes mellitus long term care pharmacist insulin use: with fci use Diabetes mellitus complication status: without complication Qualified Code(s): E11.9 - Type 2 diabetes mellitus without complications; Z79.4 - adjunct faculty for medical terminology (current) use of insulin (4) Atrial fibrillation Atrial fibrillation type: unspecified Qualified Code(s): I48.91 - Unspecified atrial fibrillation (5) Hypothyroidism Hypothyroidism type: unspecified Qualified Code(s): E03.9 - Hypothyroidism, unspecified
--- NOTE | 2024-10-27 17:26 | Advance Care Plan Prog Note ---
Advanced Care Planning Note Date of Discussion October 26, 2024 ACP Discussion Diagnoses requiring ACP discussion: Respiratory failure with hypoxia, multifocal pneumonia, metastatic breast cancer with mets to liver A [id number] discussion with the the patient Ms. Solorzano and subsequently her daughter over the phone regarding the patient's advanced care planning took place during this hospitalization on the above date. The discussion included the explanation and discussion of advance directives and associated forms/documents, as well as the patient's current code status. We also discussed at length the patient's medical conditions (both acute and chronic), general prognosis, treatment options, and goals of care. The following summarizes the discussion: Had discussion with Ms. Solorzano at the bedside regarding if she is fatigued from being ill for such a prolonged period of time. Her last treatment for breast cancer was about a year ago and she has had subsequent multiple infectious hospitalizations appear to have suspended additional therapy over the last year. Currently she is back with multifocal pneumonia pleural effusion and significant hypoxia. After discussion with Ms. Solorzano she states that she is not ready to yet and that she wants to be treated but she will try to let me know if she feels its time to stop. Subsequent discussion over the phone with her daughter Lulu Brambila relayed her mother's wishes. She is understanding that the patient is likely getting close to considering a more palliative approach but does wish to get an additional opinion from the oncologist. However with her current pneumonia she is once again not a candidate to have any active treatment at this time I will arrange for an outpatient oncological visit Advance Care Planning/Goals of Care Continue current evaluation & management of any acute/chronic issues and Will continue to discuss both short- and long-term goals of care Status Resuscitation Status Full Code Total Time I spent a total of 35 minutes was spent on this discussion, including counseling, answering questions, and completing, if any, pertinent advanced care planning forms/documents.
--- NOTE | 2024-10-27 18:40 | Hospitalist Progress Note ---
Date of Service October 27, 2024 Assessment & Plan (1) Acute hypoxemic respiratory failure: (2) Metastatic breast cancer: (3) Diabetes type 2, controlled: (4) Atrial fibrillation: (5) Hypothyroidism: Plan Patient is a 74yo F with PMHx notable for metastatic breast cancer originally l eft breast, afib on chronic anticoag, tachy-monica syndrome, DM2, hypothyroidism, dyslipidemia, anxiety, and recent admission for PNA with subsequent rehab stay, who presented to ED on 10/25 with dyspnea. She was tachypneic, tachycardic, and hypoxic. Initial labs and imaging were suggestive of multifocal pneumonia and residual pleural effusions AHRF / PNA / pulmonary edema Multifocal pneumonia with concern for gram-negative pneumonia - - CT scan of the chest shows multifocal infiltrates plus residual effusion in the left base not completely consistent with malignancy - Leukocytosis persists procalcitonin is mildly elevated - Blood cx pending, mrsa screen positive - Zosyn and vancomycin for healthcare associated pneumonia -Updated daughter via phone 10/26 left voicemail 10/27 - AM echo. Past echo showed EF 60-65% Less likely acute on chronic heart failure preserved ejection fraction Elevated troponin demand ischemia due to illness - Initial Trop 135.9. Trend to peak - EKG without ischemic changes. Pt w/o chest pain or anginal sx. Atrial fibrillation remains rate controlled with diltiazem 360 DM2 - Managed at home with 16u daily Lantus - Last A1c in 07/2024 was 6.2 - Initial Bsg today 261. Continue FSBG checks ACHS unless NPO - Continue Lantus. SSI BSG goal 110-140; CF 35; CR 12 Limb edema does have history of hepatic metastasis - RLE and LUE edema. No tenderness, warmth. Pt usually uses compression socks & sleeve. - Likely related to fluid overload, poor nutrition anticipate improvement with lasix - No current concern for VTE, patient on Eliquis Confusion / word-finding difficulty, possible metabolic encephalopathy - Slight improvement on 10/26/2024 patient does take opiates and is also concern for anxiety taking buspirone which was requested to be restarted on 10/27/2024 Breast cancer w/ mets to liver - Follows w/ Dr. De Luna currently not on active treatment has not seen for some time and family requested reconnection She is not able to be actively treated at this time can have outpatient follow- up - Has MRI compatible R IJ port, has not had chemo in >6 months - related anemia; Hgb currently at baseline ~10 Afib / tachy-monica - s/p AICD, continue eliquis & diltiazem Hypothyroidism - TSH today 5.317, FT4 1.49; continue synthroid 75 mcg qd HLD - continue atorvastatin Anxiety -resuming BuSpar 10/27/2024 GERD / prior gastric bypass - previously on B12 shots, last level >1500 in Aug 2023. Continue Protonix. Diet: HH/DM2, fluid restriction to daily 1500ml Admission and Anticipated Discharge Date Admission Date: October 25, 2024 Results & Data Results & Data Vital Signs (Past 12 Hours) Vital Signs Temp Pulse Resp BP Pulse Ox O2 Del Method O2 Flow Rate 10/27/24 15:22 97.9 F 60 16 142/61 H 93 Nasal Cannula 1 10/27/24 11:31 98.2 F 60 16 148/70 H 95 Room Air 3 10/27/24 10:00 Nasal Cannula 3 10/27/24 07:43 98.1 F 58 L 18 152/71 H 96 Nasal Cannula 6 PG Care Time/CCT Total # of Minutes Spent Total Time Spent with Patient: Total time spent is greater than 50% in coordination of care (as documented) at patient's floor/unit and/or counseling patient: Coding Level of Care Code None Diagnoses Acute hypoxemic respiratory failure J96.01 Metastatic breast cancer C50.919 Controlled type 2 diabetes mellitus without complication, with long-term current use of insulin E11.9; Z79.4 Diabetes mellitus jail insulin use: with intermediate accountant use Diabetes mellitus complication status: without complication Atrial fibrillation, unspecified type I48.91 Atrial fibrillation type: unspecified Hypothyroidism, unspecified type E03.9 Hypothyroidism type: unspecified (3) Diabetes type 2, controlled Diabetes mellitus jail insulin use: with jail use Diabetes mellitus complication status: without complication Qualified Code(s): E11.9 - Type 2 bassem betes mellitus without complications; Z79.4 - FDC (current) use of insulin (4) Atrial fibrillation Atrial fibrillation type: unspecified Qualified Code(s): I48.91 - Unspecified atrial fibrillation (5) Hypothyroidism Hypothyroidism type: unspecified Qualified Code(s): E03.9 - Hypothyroidism, unspecified
[2024-10-28 05:36] LABS: Hematocrit (blood only) 28.8 % (37.0-47.0); Hemoglobin 8.8 g/dl (12.0-16.0); Immature Granulocytes # (auto) 0.08 K/uL (0.01-0.20); Immature Granulocytes % (auto) 0.7 %; Mean Corpuscular Hemoglobin 27.3 pg (25.0-34.0); Mean Corpuscular Volume 89.4 fL (80.0-100.0); Platelet Count 202 K/uL (130-400); RDW Standard Deviation 53.2 fL (36.4-46.3); Red Blood Count 3.22 M/uL (4.20-5.40); White Blood Count 11.82 K/ul (4.8-10.8)
[2024-10-28 07:03] LABS: Anion Gap 11.0 (3-11); Calcium 8.0 mg/dl (8.6-10.3); Carbon Dioxide 24.0 mmol/L (21-32); Chloride 103.0 mmol/L (98-107); Magnesium 1.7 mg/dl (1.7-2.4); Potassium 3.5 mmol/L (3.5-5.1); Sodium 138.0 mmol/L (136-145)
[2024-10-28 07:08] LABS: Blood Urea Nitrogen 19.0 mg/dl (6-23); Creatinine Clr Calc Pharmacy 62.1 ml/min; Glucose 89.0 mg/dl (70-99(Fasting))
--- NOTE | 2024-10-28 07:26 | Pharmacy Report ---
Pharmacy PK ABX Note - Date of Service October 28, 2024 - Assessment and Plan Assessment 10/28: * Random vancomycin level this AM ~17 mcg/ml - current vancomycin regimen predicted to achieve goal AUC/FERNANDO. Provider wanting to extend out abxs for 7 days for total duration of therapy. Blood cultures negative, MRSA nasal swab was positive. 10/26: * 74 year old F receiving empiric vancomycin and Zosyn for treatment of possible CAP. Pertinent microbiologic data includes: Positive MRSA Nasal Swab, blood/urine cultures pending. * Pertinent PMH includes metastatic breast cancer (no chemotherapy >6 months) and T2DM. History of MDROs growing in urine (ESBL producing E.coli/K. pneumoniae). * Afebrile, leukocytosis improved overnight, renal function at/near baseline. Plan Vancomycin * Continue current dosing, level predicting goal AUC/FERNANDO Pharmacy will continue to follow and will adjust dose/frequency as necessary. Thank you. Pharmacy has transitioned to AUC monitoring for vancomycin. AUC/FERNANDO is the preferred PK/PD target and is associated with decreased risk of nephrotoxicity compared to traditional trough targets.
[2024-10-28] MEDS: LANTUS PER UNIT CHARGE SQ SCH (08:44)
--- NOTE | 2024-10-28 09:11 | Pharmacy Report ---
Pharmacy Glycemic Short Note 2 - Date of Service October 28, 2024 - Glycemic Short BSG Results (Last 24 hours): 10/27/24 10/27/24 10/27/24 12:00 16:39 20:20 Glucose POC Glucose 131 H 161 H 209 H 10/28/24 10/28/24 04:55 07:49 Glucose 89 POC Glucose 94 OUTPATIENT ANTIDIABETIC REGIMEN: * Lantus 16 units SC daily HbA1c: 8.4% (09/20/24) ASSESSMENT: 10/28 * Patient received total of 15 units of insulin yesterday, of which 7 units were basal insulin. * BSGs trending down this AM despite a decrease in basal yesterday - will further decrease to 5 units once daily * no change to CF/CR 10/26 * CHARLEE is a 74 year old female w/ history of metastatic breast cancer and T2DM being treated for acute respiratory failure possibly secondary to CAP * Empiric vancomycin/Zosyn at this time * Pharmacy consulted for glycemic management, blood sugar of 261 mg/dL on presentation * No steroids or obvious glycemic stressors besides infection * Weight-based stress of 2 Novolog parameters w/ 0.1-0.2 unit/kg basal for today PLAN FOR INPATIENT GLYCEMIC CONTROL: * Basal insulin * Lantus 5 units daily * Bolus insulin * NovoLog per scale ACHS or Q6hrs while NPO * Goal Range: Low 120 mg/dL - High 160 mg/dL * Correction Factor: 45 mg/dL/unit * Nutritional / Prandial insulin per carb ratio of 1 unit per 15 grams CHO consumed
[2024-10-28] MEDS: THIAMINE HCL 100 MG TAB PO SCH (09:43)
--- NOTE | 2024-10-28 16:08 | Hospitalist Progress Note ---
Date of Service October 28, 2024 Assessment & Plan (1) Acute hypoxemic respiratory failure: (2) Multifocal pneumonia: (3) Breast cancer, stage 4: (4) Metastases to the liver: (5) Memory loss: (6) Hypothyroidism: (7) Atrial fibrillation: (8) Diabetes mellitus, type 2: (9) Hx of cardiac pacemaker: (10) Gastroesophageal reflux disease: (11) Status post gastric bypass for obesity: (12) MRSA (methicillin resistant staph aureus) culture positive: (13) Chronic headaches: (14) Stress-induced cardiomyopathy: (15) Acute HFrEF (heart failure with reduced ejection fraction): (16) Pleural effusion: Plan 74yo female with metastatic breast cancer (initial dx 2015 - localized L breast ca, with discovery of mets in 2019), afib on Eliquis, tachy-monica syndrome, DM2, hypothyroidism, dyslipidemia, anxiety, and admission in 08/2024 for pneumonia. Since that admission she has been staying at [facility] for rehab but has made little progress with such. Presented to ED on 10/25/24 with dyspnea. She was tachypneic, tachycardic, and hypoxic. Initial imaging with pulmonary edema, b/l effusions, and b/l pneumonia. #acute hypoxic respiratory failure - -multifactorial: -b/l pneumonia -acute CHF with pulm edema/effusions -cannot rule out progressive breast cancer with mets to the lungs / lymphangitic spread -remains on zosyn/vancomycin, day #4 of each -[employer] swab + hence the vancomycin -continues with significant dyspnea, pleuritic pain, etc -cont diuresis -cont antibiotics -effusions - L>R - uncertain if transudative from CHF, but could be exudative from pneumonia or breast ca (malignant effusion) -Eliquis has been on hold since 10/26 (last dose that evening) -ordered thoracentesis by IR for 10/29 - start with left - effusion on that side is larger than right side #b/l pneumonia - -zosyn/vanco as above -plan 7 days of Rx #stage 4 breast cancer with mets to the liver - -follows with Dr De Luna, cancer care clinic -has not had chemo since early 2024 -CT a/p in August showed progressive liver mets -will obtain repeat CT of a/p and also obtain CT head to r/o intra-cranial mets given her headaches & confusion/memory issues -prognosis is very, very poor -functional status at this time would preclude re-initiation of chemotherapy -plan for thoracentesis of left lung tomorrow; send fluid for cytologies -check ammonia level in am due to the extent of the hepatic mets -cannot rule out bony mets to spine given her c/o back pain #acute HFrEF 2nd to suspected stress-induced cardiomyopathy - -based on echo findings this admission -alternatively the cardiomyopathy could be ischemic in etiology -not a candidate at this time for catheterization -cont lasix 20mg IV BID -thoracentesis tomorrow of left-sided effusion -daily BMPs -will ultimately need beta alec +/- Entresto + diuretics #abdominal pain/flank pain/back pain - -2nd to extensive liver mets, severe constipation, other factors -tramadol not helpful; has been on this medicine for quite some time -will ask palliative care to consult for assistance with pain management #opiate-induced constipation - -CT a/p today - r/o ileus, etc. -dulcolax/miralax (multiple doses) this evening -then needs maintenance with senna/colace/miralax -dulcolax suppos prn #atrial fibrillation on Eliquis - -patient is on diltiazem 360mg daily -relatively contraindicated with the depressed LV function on echo this admission -follows with Dr Ramires; his notes state she was on meto succ in the past and it was stopped -ideally would change CCB to beta alec but defer on that today -Eliquis is on hold due to need for thoracentesis, etc #T2DM - -pharmacy providing glycemic oversight - appreciate their assistance -cont basal-bolus insulins -last a1c was 8.4% in September #hypothyroidism - -TSH 5.3 at time of admission -leave synthroid dose as is; simply repeat TSH in about a month #chronic headaches/memory loss/confusion - -start with CT head -consider MRI brain if needed #b/l pleural effusions - -see discussion above -IR consulted for consideration of left-sided thoracentesis tomorrow #GERD - -cont PPI twice daily daughter extensively updated at bedside correspondence [place] [facility] [place] with details re: consultation very complex care coordination 85 minutes spent on extensive chart review, ordering labs/tests, talking with daughter & patient, etc. Admission and Anticipated Discharge Date Admission Date: October 25, 2024 Subjective tele overnight wnl (pacing) patient sitting in chair during the visit pt's daughter at bedside she c/o right sided abdominal pain and right flank pain she c/o low back pain she is short of breath, and has pleuritic chest discomfort especially in the right chest she has not had a bowel movement in the hospital takes tramadol prn pain at [facility] the tramadol really doesn't relieve any of her pain she has taken oxycodone in the past - this works better for the pain - but daughter expresses concerns about using it with her mother patient also c/o feeling confused "for a long time" (months?) she has anxiety as well eating fair-good daughter asks about pursuing thoracentesis daughter hopeful that her mother can get better so that chemo can resume for cancer Review of Systems Review of Systems: gen - no fevers; weak/fatigued cv - no substernal chest pain; mainly pleuritic pain b/l, worse on right; some edema of legs pulm - cough, dyspnea, [facility] - abd pains, but no vomiting; +constipation Physical Exam 2 Physical Exam: gen - sitting in chair, pleasant, looks chronically ill skin - generalized pallor neck - mild JVD present mouth - no obvious thrush heart - RRR, s1 s2 lungs - decreased BS b/l bases, L>R, some crackles (anteriorly and posteriorly); no increased work of breathing abd - soft, liver edge palpable, tender RUQ to palpation, BS+ ext - <1+ edema ankles/feet b/l; pulses b/l feet 1-2+ psych - a/o x 3 Results & Data Results & Data Vital Signs (Past 12 Hours) Vital Signs Temp Pulse Pulse Resp BP Pulse Ox O2 Del Method 10/28/24 15:21 36.4 C L 61 20 120/65 97 Nasal Cannula 10/28/24 15:00 60 10/28/24 11:15 36.6 C 60 22 132/64 95 Nasal Cannula 10/28/24 08:00 Nasal Cannula 10/28/24 08:00 60 10/28/24 07:17 36.8 C 60 17 147/79 H 95 Nasal Cannula O2 Flow Rate 10/28/24 15:21 4 10/28/24 15:00 10/28/24 11:15 3 10/28/24 08:00 3 10/28/24 08:00 10/28/24 07:17 3 Laboratory Results Laboratory Results - last 24 hr 10/28/24 10/28/24 10/28/24 04:55 07:49 11:54 WBC 11.82 H RBC 3.22 L Hgb 8.8 L Hct 28.8 L MCV 89.4 MCH 27.3 MCHC 30.6 L RDW Std Deviation 53.2 H RDW Coeff of Thompson 16.6 H Plt Count 202 MPV 11.7 Immature Gran % (Auto) 0.7 Neut % (Auto) 78.8 Lymph % (Auto) 7.3 Rooks % (Auto) 11.4 Eos % (Auto) 1.4 Baso % (Auto) 0.4 Neut # (Auto) 9.31 H Lymph # (Auto) 0.86 L Rooks # (Auto) 1.35 H Eos # (Auto) 0.17 Baso # (Auto) 0.05 Immature Gran # (Auto) 0.08 Absolute Nucleated RBC 0.04 Nucleated RBC % (auto) 0.3 Sodium 138 Potassium 3.5 Chloride 103 Carbon Dioxide 24 Anion Gap 11 BUN 19 Creatinine 0.69 Est Cr Clr Drug Dosing 62.1 eGFR 89.89 BUN/Creatinine Ratio 27.5 H Glucose 89 POC Glucose 94 145 H Calcium 8.0 L Magnesium 1.7 Whole Bld Vitamin B1 Pending Random Vancomycin 17.7 Diagnostic Findings Microbiology 10/25/24 20:12 Blood Aerobic Blood Culture - Preliminary No growth in Aerobic bottle after 48 hours. 10/25/24 20:12 Blood Anaerobic Blood Culture - Final 10/25/24 20:12 Blood Aerobic Blood Culture - Preliminary No growth in Aerobic bottle after 48 hours. 10/25/24 20:12 Blood Anaerobic Blood Culture - Final 10/25/24 19:53 Urine,Indwelling Cath Urine Culture - Final No growth - less than 1,000 colonies/mL. PG Care Time/CCT Total # of Minutes Spent Total Time Spent with Patient: Total time spent is greater than 50% in coordination of care (as documented) at patient's floor/unit and/or counseling patient: Prolonged Care Time Prolonged Care Time: Yes Total Prolonged Care Time: 85 Coding Level of Care Code 87061 SUB INP/OBS CARE 3/50MIN (25 - SIGNIFICANT, SEPARATELY IDENTIFIABLE ) Diagnoses Acute hypoxemic respiratory failure J96.01 Multifocal pneumonia J18.9 Breast cancer, stage 4 C50.919 Metastases to the liver C78.7 Memory loss R41.3 Hypothyroidism E03.9 Atrial fibrillation I48.91 Diabetes mellitus, type 2 E11.9 Hx of cardiac pacemaker Z95.0 Gastroesophageal reflux disease, esophagitis presence not specified K21.9 Esophagitis presence: esophagitis presence not specified Status post gastric bypass for obesity Z98.84 MRSA (methicillin resistant staph aureus) culture positive Z22.322 Chronic headaches R51.9; G89.29 Stress-induced cardiomyopathy I51.81 Acute HFrEF (heart failure with reduced ejection fraction) I50.21 Pleural effusion J90 Additional Codes Prolonged Care Time - Prolonged Care Time: Yes ([id number]) (10) Gastroesophageal reflux disease Esophagitis presence: esophagitis presence not specified Qualified Code(s): K21.9 - Gastro-esophageal reflux disease without esophagitis
[2024-10-28] MEDS: OPTIRAY 320 100ml IV ONE (16:47)
--- NOTE | 2024-10-28 17:14 | CT Scan Report ---
Clinical History: Abdominal pain. Metastatic disease Technique: Axial computed tomography images were obtained of the abdomen and pelvis after the administration of intravenous contrast. Comparison is made to the prior CT dated 08/30/2021. Findings: There has been interval increase in size and number of numerous liver masses, consistent with metastatic disease. These measure up to 4.7 cm in size. The liver is mildly enlarged measuring 19.4 cm. The portal vein is patent. The gallbladder has been removed. No bile duct dilatation is noted. The spleen is of normal size. No focal splenic lesion is evident. There is an unchanged small 4 mm cyst in the proximal pancreatic body. The pancreas otherwise appears normal with no sign of acute or chronic pancreatitis and no mass lesion noted. The pancreatic duct is of normal caliber. The adrenal glands appear unremarkable. There is a 4 mm right renal calculus and there is a suspected 1-2 mm left renal calculus. There is no hydronephrosis or perinephric stranding. No renal mass lesion is identified. There are small bilateral renal cysts, measuring up to 6 mm The aorta is of normal caliber. No abdominal adenopathy is seen. The stomach appears normal. There is an unchanged focally dilated ileum in the central pelvis adjacent to anastomotic sutures. This could be due to ileus or a postoperative pouch. There is no definite sign of small bowel obstruction. There is sigmoid diverticulosis without definite diverticulitis. There is constipation and possible mild colonic ileus. No free intraperitoneal fluid or air is identified. The bladder is decompressed. The iliac arteries are of normal caliber. No pelvic adenopathy is noted. The uterus appears to have been removed There are new bilateral moderate sized pleural effusions. There are multifocal nodular and groundglass opacities in the visualized lungs bilaterally, likely due to pneumonia. There is left lower lobe atelectasis. Pacemaker leads are present There are bilateral hip replacements, resulting in surrounding artifact. There is a fusion of L2-S1 Impression: 1. Bilateral pneumonia and bilateral moderate sized pleural effusions 2. Hepatic metastatic disease, significantly worsened since 2021 3. Unchanged small pancreatic cyst, likely a benign congenital or post inflammatory cyst 4. Small nonobstructing renal calculi and small bilateral renal cysts 5. Diverticulosis without definite diverticulitis ACT 112: Positive. There are findings on this exam that require communication between the performing entity and the patient following Patient Test Result Information Act ([place] ACT 112) guidelines. Electronically signed by Farooki, Alex 10-28-2024 5:14 PM
--- NOTE | 2024-10-28 17:19 | CT Scan Report ---
Clinical History: Breast cancer and confusion Technique: Axial computed tomography images were obtained of the brain without intravenous contrast. Comparison is made to the prior CT dated 10/08/2021 Findings: This examination is limited by motion artifact There is diffuse cerebral atrophy, within expected limits for the patient's age. Areas of decreased attenuation are seen within the periventricular white matter, likely representing chronic small vessel ischemic disease. There is no definite sign of acute or old infarction. No intracranial hemorrhage is evident. No definite mass lesion is seen on this noncontrast examination. There is no midline shift or other form of herniation. No hydrocephalus is seen. No fracture is identified. The orbits and the visualized paranasal sinuses appear unremarkable. The mastoid air cells appear clear. Impression: 1. Cerebral atrophy and chronic small vessel ischemic disease 2. Otherwise unremarkable noncontrast CT of the brain, limited by motion artifact Electronically signed by Alex Herrera 10-28-2024 5:18 PM
[2024-10-28] MEDS: POLYETHYLENE (MIRALAX) 17 GM PACK PO SCH (17:48)
[2024-10-28] MEDS: POLYETHYLENE (MIRALAX) 17 GM PACK PO PRN (22:06)
[2024-10-29 05:15] LABS: Hematocrit (blood only) 31.8 % (37.0-47.0); Hemoglobin 9.8 g/dl (12.0-16.0); Mean Corpuscular Hemoglobin 27.3 pg (25.0-34.0); Mean Corpuscular Volume 88.6 fL (80.0-100.0); Platelet Count 214 K/uL (130-400); RDW Standard Deviation 53.2 fL (36.4-46.3); Red Blood Count 3.59 M/uL (4.20-5.40); White Blood Count 11.67 K/ul (4.8-10.8)
[2024-10-29 05:32] LABS: Anion Gap 9.0 (3-11); Blood Urea Nitrogen 17.0 mg/dl (6-23); Calcium 8.5 mg/dl (8.6-10.3); Carbon Dioxide 27.0 mmol/L (21-32); Chloride 101.0 mmol/L (98-107); Creatinine Clr Calc Pharmacy 58.0 ml/min; Glucose 147.0 mg/dl (70-99(Fasting)); Potassium 3.5 mmol/L (3.5-5.1); Sodium 137.0 mmol/L (136-145)
[2024-10-29 06:50] LABS: INR 1.3 (0.9-1.1); Prothrombin Time 13.6 Seconds (9.0-12.0)
[2024-10-29] MEDS: LANTUS PER UNIT CHARGE SQ SCH (08:33)
--- NOTE | 2024-10-29 08:39 | Pulmonary Consultation ---
Date of Consultation October 29, 2024 Assessment & Plan (1) Acute HFrEF (heart failure with reduced ejection fraction): (2) Multifocal pneumonia: (3) Acute hypoxemic respiratory failure: (4) Metastases to the liver: (5) Pleural effusion: (6) Pulmonary hypertension: Plan CT chest 10/26/2024 personally reviewed: Diffuse alveolar opacities appreciated bilaterally upper and lower lobe Compressive atelectasis of the left lower lobe Moderate bilateral pleural effusion Cardiomegaly Minimal mediastinal and hilar lymphadenopathy 2D echo 10/26/2024: EF 35-40%, RV normal in size and function, RVSP 40-50 mmHg -- Acute hypoxic respiratory failure Multifactorial Respiratory BioFire negative for everything Nasal MRSA positive BNP 1519 --Bilateral pleural effusion Likely secondary to cardiac etiology --Pulmonary hypertension Likely type II Continue with diuretics --57-mcyt-jgic smoking history Recommend outpatient pulmonary function test when she is adequately diuresed --A-fib On Eliquis Eliquis has been on hold since 10/26/2024 Plan: +3.8 L since coming to the hospital BNP 1519 on presentation, would recommend adequate diuresis to keep the patient negative balance of at least -1-1.5 L in 24 hours Increase Lasix to 40 mg twice daily Continue to hold Eliquis, if there is no improvement in pleural effusion the thoracentesis will be pursued. Continue with antibiotics Plan discussed with primary team as well as RN at bedside Please note the above document was generated using voice recognition software. It may contain grammatical, syntax or spelling errors.Any formal questions or concerns about the content, text or information contained within the body of this dictation should be directly addressed to the provider for clarification. History of Present Illness Attending Physician: Darling Daly DO History of Present Illness 74-year-old female admitted to the hospital for shortness of breath and hypoxia Past medical history: Metastatic left-sided breast cancer, A-fib, tachybradycardia syndrome, diabetes type 2, hypothyroidism, dyslipidemia Pulmonary consulted for pleural effusion At the time of examination patient was saturating 98-98% on 3 L nasal cannula, and went down to 1 L She stated she is feeling better since he came to the hospital Has been diuresing well. Has been complaining of cough and having difficulty bringing it up Used to have some hemoptysis before but it has mellowed down. Does have chronic dysuria. No diarrhea Subjective chills, no fever prior to coming to hospital Denies any nausea or vomiting States that she is compliant with her medications at home Social history: Approximately 49-hgfo-kord smoking history quit around the age of 59 Has cats at home Allergies Allergy/AdvReac Type Severity Reaction Status Date / Time metformin AdvReac Intermediate Restlessnes Verified 10/25/24 19:44 s Home Medications Medication Instructions Recorded Confirmed Type blood sugar diagnostic (OneTouch #100 ea 10/07/22 08/19/24 Rx Ultra Test strips) OneTouch Delica Plus Lancet 33 #300 ea 01/09/23 08/19/24 Rx gauge (lancets) pen needle, diabetic 32 gauge x #100 ea 06/12/23 08/19/24 Rx 5/32" (Easy Comfort Pen [place]) atorvastatin 40 mg tablet (Lipitor) 40 mg PO HS 06/07/24 10/25/24 History cholecalciferol (vitamin D3) 50 50 mcg PO QAM 06/07/24 10/25/24 History mcg (2,000 unit) capsule (Vitamin D3) diltiazem HCl 360 mg 360 mg PO QAM 06/07/24 10/25/24 History capsule,extended release 24 hr multivitamin 1 tab PO QAM 06/07/24 10/25/24 History tramadol 50 mg tablet 50 mg PO Q4H PRN Pain 06/07/24 10/25/24 History apixaban 5 mg tablet (Eliquis) 5 mg PO BID #60 tabs 06/29/24 10/25/24 Rx inhalational spacing device #1 ea 07/23/24 08/19/24 Rx methenamine hippurate 1 gram tablet 1 g PO BID #60 tabs 07/27/24 10/25/24 Rx albuterol sulfate 90 mcg/actuation 2 puff inhalation Q4 PRN Shortness 07/30/24 10/25/24 Rx aerosol inhaler Of Breath Or Wheezing #8.5 grams levothyroxine 75 mcg tablet 75 mcg PO DAILY #90 tabs 08/03/24 10/25/24 Rx furosemide 20 mg tablet 20 mg PO DAILY #90 tabs 08/09/24 10/25/24 Rx calcium carbonate (Calcium 600) 600 mg PO QAM 08/19/24 10/25/24 History acetaminophen 500 mg tablet 1,000 mg (2 x 500 mg) PO Q8H PRN 08/26/24 10/25/24 Rx (Tylenol Extra Strength) fever or pain #90 tabs bisacodyl 10 mg rectal suppository 10 mg ND DAILY PRN Constipation 10/25/24 10/25/24 History camphor 4 %-methyl salicylate 30 1 applic topical BID PRN KNEE PAIN 10/25/24 10/25/24 History %-menthol 10 % topical cream (Bengay Ultra Strength) dextrose 40 % oral gel (Glutose-15) 1 ea PO DIRECTED PRN 10/25/24 10/25/24 History HYPOGLYCEMIA <60 duloxetine 60 mg capsule,delayed 120 mg PO DAILY 10/25/24 10/25/24 History release sprinkle (Drizalma Sprinkle) insulin glargine 100 unit/mL 16 unit SC DAILY 10/25/24 10/25/24 History subcutaneous solution (Lantus U-100 Insulin) loperamide 2 mg capsule 2 mg PO Q8H PRN Diarrhea 10/25/24 10/25/24 History magnesium hydroxide 400 mg/5 mL 30 ml PO DAILY PRN Constipation 10/25/24 10/25/24 History oral suspension (Milk of Magnesia) melatonin 10 mg tablet 10 mg PO HS 10/25/24 10/25/24 History olopatadine 0.1 % eye drops 1 drp OPB DAILY PRN ITCHY EYES 10/25/24 10/25/24 History oxycodone-acetaminophen 5 mg-325 1 tab PO Q4H PRN Pain 10/25/24 10/25/24 History mg tablet potassium chloride 20 mEq 20 meq PO BID 10/25/24 10/25/24 History tablet,extended release sennosides 8.6 mg-docusate sodium 1 tab-cap PO BID 10/25/24 10/25/24 History 50 mg tablet (Senna-S) sodium phosphates 19 gram-7 118 ml ND DAILY PRN Constipation 10/25/24 10/25/24 History gram/118 mL enema (Fleet Enema) Patient History Medical History Weakness Elevated troponin Pneumonia Urgency incontinence Recurrent UTI (urinary tract infection) Memory loss Migraine Recurrent UTI Hx MRSA infection Pt unsure "I had a blood infection" as per patient ( MSSA bacteremia) Hypothyroidism Gait disturbance Walker Frequent falls "Therapy doesn't help me. I am getting fitted for a brace this week to help with my leg weakness." as per patient most recent fall 06/05/24 History of kidney stones passed on own Edema "Sometimes, I don't know what it's from" as per patient Atrial fibrillation [facility] On Eliquis MDD (major depressive disorder), recurrent severe, without psychosis Difficulty with speech Anxiety Septic shock 01/12/24 [facility] IP s/p port removal MSSA bacteremia History of- Jan 2024- admitted to [facility]- treated with abx Anticoagulant long-term use Eliquis Infected venous access port hx patient states only ever had 1 and removed d/t infection- provider notes has had 2 and removed both times d/t infection History of blood transfusion Generalized weakness Lung nodules monitoring Urinary frequency Neuropathy Aortic stenosis Mild aortic stenosis (AV MG 16.7mmHg; AV peak velocity 2.70 m/s) per 06/03/24 ECHO - Dr Ramires Diabetes mellitus, type 2 IDDM Degenerative disc disease Hx of cardiac pacemaker Implanted 2019 (tachy-monica syndrome), [employer] device Follows with Dr. Ramires Liver mass PET scan shows 2.5 right hepatic lobe mass consistent with known hepatic metastasis - CCP - reason for port placement Anemia h/o blood transfusions Infiltrating ductal carcinoma of left breast Initial Dx 2015- s/p lumpectomy, XRT and anastrozole Metastatic breast cancer 03/2020, follows with [facility] Peripheral neuropathy Hands (B/L CTS) Obstructive sleep apnea "Resolved" s/p gastric bypass (? retested) Hypercholesterolemia Gastroesophageal reflux disease controlled, stable per pt Chronic pain Cervical spine disease Limited ROM / Painful as per patient Surgical History Port-A-Cath in place (06/11/24) Insertion MRI Compatible Access Port Right Internal Jugular(Right) - Kaushal Shah MD, FACS History of revision of total replacement of right knee joint Right knee TKA revision with spacer (07/11/2021): SAB at L3-4 (x2 attempts) + PNB at [facility]. No issues noted per post-op anesthesia progress note. History of lumpectomy of left breast Status post placement of cardiac pacemaker 2019 [facility] Dr Ramires H/O breast biopsy (05/29/23) Skin, left breast, 2 punch biopsies: In office procedure Dr. Alvarez - Fibrosing dermatitis. - See comment Status post revision of total replacement of right knee History of removal of Port-a-Cath (01/11/22) Infected port right anterior chest removed Dr. Shah History of carpal tunnel surgery of left wrist 06/2021 History of carpal tunnel surgery of right wrist Port-A-Cath in place hx - 05/2020 since removed d/t infection at port 12/2021 *hx patient states only ever had 1 and removed d/t infection- provider notes has had 2 and removed both times d/t infection History of colonoscopy (2022) History of evacuation of hematoma Hematoma right breast and right chest 08/31/13 Dr. Shah H/O bilateral hip replacements Status post repair of ventral hernia History of total knee arthroplasty Bilateral Status post total abdominal hysterectomy and bilateral salpingo-oophorectomy Status post lumbar spine surgery for decompression of spinal cord hardware present Status post panniculectomy History of section x1 Status post laparoscopic cholecystectomy Status post gastric bypass for obesity Status post arthroscopy of left shoulder Status post appendectomy Family History Unknown Breast cancer Emphysema lung Mother Diabetes Heart disease Father Heart disease Other No family history of adverse response to anesthesia Denies family history of Ovarian cancer Prostate cancer Coronary heart disease Colorectal cancer Social History Smoking Status: Former smoker Tobacco Type: Cigarettes Age Started Using Tobacco: 17; Age Quit Using Tobacco: 59; packs per day: 1; Second Hand Exposure: No; Do You Dip or Chew Tobacco: No; Hx Alcohol Use: No Hx Substance Use: No Preferred Language: Iranian Communication Ability: Effective Visual Impairment: No Limitations Hearing Ability: Normal Printer Slotter Feeder Required: No Beliefs That Will Affect Care: None marital status: Current Living Situation: Spouse Current Living Situation Comment: Was discharged from [facility] 10/25/24 current occupational status: retired Feels Safe at Home: Yes Safety Concerns: Feels Safe At This Time Childhood Exposure to Second-Hand Smoke: Yes Diet: diabetic caffeine: Yes Dental Care, Regularly: No Physical Activity Frequency: 1-2 Times per Week Seatbelt Use: always Sunscreen Use: No Assistive Devices: Walker Review of Systems 2 Review of Systems: All systems reviewed & are unremarkable except as noted in HPI & below Physical Exam 2 Physical Exam: Constitutional: No acute distress HEENT: EOMI, PERRLA Respiratory system: Decreased air entry bilaterally, more decreased on the left, no wheeze, no rhonchi, positive crackles bilaterally CVS: S1-S2 positive, positive 3 out of 8 systolic murmur appreciated best at apex Abdomen: Soft, nontender, nondistended, positive bowel sounds x4 Extremities: +2 pulses bilaterally radialis/ dorsalis pedis, no cyanosis, + pitting edema bilateral lower extremity Neuro: Awake alert oriented x3 Psych: Normal mood and affect G/U: Pure wick Skin: no rashes, warm and dry Lymphatic: no cervical or axillary lymphadenopathy Results & Data Results & Data Vital Signs (Past 12 Hours) Vital Signs Temp Pulse Pulse Resp BP Pulse Ox O2 Del Method 10/29/24 07:27 36.5 C 61 20 146/67 H 96 Nasal Cannula 10/29/24 03:55 36.4 C L 60 18 147/83 H 97 Nasal Cannula 10/28/24 23:50 61 10/28/24 23:23 36.8 C 60 18 150/76 H 97 Nasal Cannula O2 Flow Rate 10/29/24 07:27 3 10/29/24 03:55 10/28/24 23:50 10/28/24 23:23 4 Laboratory Results 10/29/24 04:38 10/29/24 04:38 PG Care Time/CCT Total # of Minutes Spent Total Time Spent with Patient: Total time spent is greater than 50% in coordination of care (as documented) at patient's floor/unit and/or counseling patient: Coding Level of Care Code 48389 INT INP/OBS CARE 75MIN Diagnoses Acute HFrEF (heart failure with reduced ejection fraction) I50.21 Multifocal pneumonia J18.9 Acute hypoxemic respiratory failure J96.01 Metastases to the liver C78.7 Pleural effusion J90 Pulmonary hypertension I27.20
[2024-10-29] MEDS: FUROSEMIDE INJ 20 MG/2 ML VIAL IV SCH (08:53)
--- NOTE | 2024-10-29 09:00 | Palliative Care Consultation ---
Date of Consultation October 29, 2024 Assessment & Plan (1) Palliative care by specialist: Met with pt at bedside, no viitors present. Introduced Palliative Medicine and explained our role in advanced care planning, symptom management and navigation through the progression of life limiting disease. Patient was receptive to palliative services for goals of care discussions. Reviewed we are different from hospice, a home health nurse visiting service. (2) Cancer related pain: pt c/o sharp unrelenting pain originating in RUQ and radiating across to LUQ. Pt reports pain is constant and never less than a 9::10 even with current analgesia regime. She shared that the pain at it's worst is "24" on 1-10 scale and has been getting worse "as the cancer spreads". Discussed that given her progressive disease, elimination of pain is not a realistic goal and helped pt identify goal of mild pain, where she can carry on a conversation and relax her muscles without being distracted by pain. Discussed that she appears, at least outwardly to be at that level currently and she agreed. She shared that she has been on oxycodone for pain for "many many years" and we discussed possible opiate rotation in future. Brief review of PDMP reveals that pt has had intermittent use of Oxycodone IR 5mg tablets as well as Tramadol 50mg over past year. For now will increase oxy to 10mg q4h PRN and reevaluate pain management after weekend. (3) Counseling regarding advanced directives and goals of care: ACP discussion held with pt from 14:00 - 14:40 Patient currently exhibits decisional capacity based on the ability to convey understanding of personal PMHx, current medical condition, treatment options nor the risks / benefits/ potential outcomes of accepting/declining those options, and ability to make decisions based on such knowledge. Hospital does not have written documentation of patient wishes concerning her chosen proxy for medical decisions. Pt verbalized that she does have an advanced directive at home which documents her wish for her daughter Zakiya Edward ([phone]) to serve as primary proxy and her daughter Lulu Solorzano ([phone]) as secondary proxy for medical decisions in the event she lacks decisional capacity. Helped pt understand that per PA [id number], in absence of written documentation of patient wishes, pt's proxy for medical decisions would be her spouse Rony Solorzano. She shared that she will make sure a copy is brought to hospital over weekend. Pt does not currently require a proxy for medical decisions. Pt shared that she is aware she has an "incurable cancer" and that it is getting worse. She shared that she has been feeling weaker and experiencing more pain in addition to having minimal appetite. She shared that she knows her time is short and asked if anyone know how long she has. We discussed a prognosis of weeks to months, based on the following prognostic scores (calculation based on pt's current condition): Palliative Prognostic Index (PPI) Score: 8.5 (PPI > 6 = approx survival of three weeks. Sensitivity 80% / Specificity 85%.) Ravi CY, Diogo YS, Ahn HM, Roxi JS, Wilbert TL, Marci CY, Siddhartha CC, Destiny YC, Matthew JM, Carole JH, Horacio WC.Combination of initial palliative prognostic index and score change provides a better prognostic value for terminally ill cancer patients: a six- year observational cohort study https://www.ncbi.nlm.nih.gov/pubmed/67551987 . J Pain Symptom Manage. 2014;48(5):804-14. Palliative Prognostic Score (PaP - predicts 30 day survival probability in cancer and non cancer diagnoses): 11 = 30-day survival probability is 30-70% Candy Neal K.Independent validation of Palliative Prognostic Score in terminally ill patients referred to a hospital-based palliative medicine consultation service https://www.ncbi.nlm.nih.gov/pubmed/57565638 . J Pain Symp Manage. 2001; 22(5):912719. Discussed that these prognostic scores are a general reflection of likely outcomes and that patient outcomes do vary. We briefly discussed options of continuing current level of care vs transition to comfort directed care. Pt stated that she does not want to be kept alive on machines and that "if it is my time, I just want to be in my bed where I can tell my kids I love them, I am proud of them and goodbye". Discussed pt's current code status and that it sounds as if she hopes for a peaceful natural . Pt agreed, but share that she does not want to change anything without discussing with her daughters first. I offered to call pt's family, pt declined stating that she would like to speak with them tonight or tomorrow and then have a meeting afterwards. Discussed code status and helped patient understand that CPR is only done after a person has and involves uncomfortable and invasive procedures that, if successful. have high risk of multiple complications including but not limited to rib fractures, pneumo/hemothorax, BRET, ventilator dependence, anoxic brain injury, and mcc/permanent cognitive and functional deficits. CPR survival: Only about 10% of patients who have [id number] sudden cardiac arrest survive to hospital discharge, with many survivors having neurologic impairment. This rate is even lower among patients with serious coexisting conditions, ie chance of survival to hospital discharge for in- hospital CPR in older people is low to moderate (15%) and decreases with age, comorbidities, performance status and frailty: for pts > 70 yo, more than half of the patients who initially survived resuscitation in the hospital before hospital discharge. The pooled survival to discharge after in-hospital CPR was 18% for patients between 70 and 79 years old, 15% for patients between 80 and 89 years old and 11% for patients of 90 years and older. (Vishnu LUUY, Grey LJ, Melina F, et al. Trends in short- and long-term survival among tdn-ng-uaniunoi cardiac arrest patients alive at hospital arrival. Circulation 2014;130:1883- 1890. AND Isjayashree C, Sierra T, Rasyulyh R, et al. Performance of clinical risk scores to predict mortality and neurological outcome in cardiac arrest patients. Resuscitation 2019;136:21-29.) Plan to readdress GOC on Friday when pt's daughters and spouse are available. Plan as above History of Present Illness Reason for Consultation: goals of care Requesting Physician: Kris Miranda MD Attending Physician: Darling Daly DO History of Present Illness Ms. Solorzano is a 74yo F with PMHx notable for metastatic breast cancer, afib on chronic anticoag, tachy-monica syndrome, DM2, hypothyroidism, dyslipidemia, anxiety, and recent admission for PNA with subsequent rehab stay, who presented to ED on 10/25 with dyspnea. She was tachypneic, tachycardic, and hypoxic and was admitted 10/25/24 for medical management of pulmonary edema and pneumonia. Per previous palliative care notes: Localized breast cancer diagnosed 2016 Metastatic Breast Cancer (hepatic lesion), ER 100%, diagnosed Current Treatment: Liposomal doxorubicin started on 08/29/23 Abraxane weekly x 5 cycles, started 06/14/20 - 10/18/20 Started Ibrance + Faslodex in for progressive disease. Started Xeloda in for progressive disease. Discontinued July/2023 Stable imaging with mid-2022 diarrhea, 10-20 lb weight loss leading to regular use of antimotility agents. 11/05/2022 start 4-week "holiday" from her Xeloda 01/21/2023 resumed capecitabine at reduced dose (1000 mg twice daily days 1 through 14 of a 21-day cycle) Guardant 360 12/02/2022 does not indicate major role for ICI or standard targeted options MSI-high NOT detected TMB could not be assessed Only relevant identified genomic alteration was TP53 Stable disease on CT scans or only slight progression. Mammography shows some skin thickening of the left breast but this is unassociated with major symptoms or changes on exam. Will reassess in 3-monthS Diagnosis History: 1. She was initially diagnosed with Stage I invasive ductal carcinoma of the left breast in December/2015 following abnormal findings on mammogram. Pathology of initial diagnosis revealed ER/DC positive, HER2 negative disease. 2. She underwent partial mastectomy with Dr. Soto in December/2015; had negative sentinel LN. 3. She completed adjuvant radiation therapy; she also started anastrozole 1 mg PO daily. 4. She was lost to follow up in oncology for ~2 years for unclear reasons; the patient presented to [facility] with a fall leading to scalp laceration and acute blood loss anemia; CT AP 04/01/20 showed 2.6 cm ill defined hypodense lesion within the right hepatic lobe. 5. Underwent FNA of liver mass on 04/05/20, confirmed metastatic adenocarcinoma, ER 100%, DC 0% and HER2 negative. 6. CT chest 05/01/20 showed 2.5 cm hepatic mass; stable enlarged LN at left neck base measuring 12 x 9 mm; stable 5 mm nodule within RLL. 7. PET/CT 05/17 showed small increased FDG avidity fusing to the inferior aspect of the thyroidgland in the midline; FDG activity within the right breast; FDG avid 2.5 cm mass within the right hepatic lobe. 8. Follow up thyroid US showed 1.6 x 1.2 x 0.8 cm hyperechoic nodule along inferior aspect of the isthmus. FNA of mass on 06/27/20 showed benign follicular findings. 9. Evaluated by Dr. Light at [facility]; he did not recommend metastasectomy of liver metastases. 10. Weekly Abraxane start06/14/20 completing 5 of [address] CAP 09/01/20 showed no significant change compared to 08/17/20; no evidence of metastatic disease within the chest. 2.1 cm right lobe hepatic lesion has not changed. No evidence of new or progressive disease. 12. She was admitted to hospital in October/2020 followed by discharge to SNF. Held the final cycle of Abraxane (per patient choice and d/t weakness/worsening neuropathy). 13. PET/CT scan 02/07 (following 5 cycles) with no evidence of metastatic disease, in particular previously noted hepatic and thyroid foci of uptake have resolved. 14. CT CAP 05/22/21 with new 1.6 cm ill defined lesion within right hepatic lobe, highly suspicious for metastatic focus; decrease in size of biopsy proven metastatic lesion within right hepatic lobe; low density trace fluid collection within left lower flank/hip measuring 14 cm (possibly related to hematoma). Liver lesion is concerning for progression of her disease. 15. Discontinued Letrozole; started Ibrance + Faslodex in . 16. CT CAP 08/30/21 with no evidence of progressive metastatic disease - two hepatic masses are similar to prior and subQ fluid collection in the left supragluteal tissues has significantly decreased in size. Bone scan 08/30/21 neg for metastatic disease. 17. CT chest 11/27 neg for metastatic disease. 18. CT CAP 03/13/22 with 2 right hepatic lobe opacities, modestly increased in size compared to August/2021 along with new 1.0 cm right hepatic lobe lesion possibly representing new metastatic focus. 19. Started Xeloda in for progressive disease. 20. CT AP 07/01/22 with stable hepatic disease, no evidence of progression. 21. Xeloda suspended 11/05/2022 for diarrhea/weight loss 22. CT CAP 09/17/22 AND 10/31/2022 CT abd/pelvis neg for progression of metastatic disease. 23.01/08/2023 CT chest/abdomen/pelvis showed a small intramuscular hemorrhage in the right iliac us and adductor musculature but otherwise was unchanged from previous. Bilateral nephrolithiasis and stable appearing hepatic metastases were noted. No signs of progressive metastatic dz 24. 04/03/2023 UNILATERAL LEFT DIGITAL DIAGNOSTIC MAMMOGRAM TOMOSYNTHESIS WITH SYNTHETIC 2D AND TARGETED LEFT ULTRASOUND: . . . mild to moderate diffuse left breast skin thickening, most prominent laterally, not significantly changed compared to the 03/24/2023 exam. . . . There is mild to moderate skin thickening seen throughout the left breast, most prominent in the left 9:00, 3:00, and central breast where the skin measures approximately 4 mm in thickness. . . . IMPRESSION: ACR BI-RADS CATEGORY 4: SUSPICIOUS, ULTRASOUND ACR BI-RADS CATEGORY 4: SUSPICIOUSNew mild to moderate diffuse left breast skin thickening, with no clear etiology evident. 25. PET/CT denied by insurance 26. 04/24/2023 Chest CTStable pulmonary nodules as above. No evidence of recurrent or metastatic disease. 04/24/2023 CT abd/pelvis 1. Minimal increase in size of a few hepatic metastases [largest 1.8 >> 2.0 cm] , as described above. No new hepatic lesions. 2. No abdominal or pelvic lymphadenopathy. 3. No suspicious osseous lesions identified. 4. Bilateral nephrolithiasis. 27. CT chest abdomen pelvis, 08/07/2023: IMPRESSION: 1. No evidence of metastatic disease within the chest. 2. Progression of hepatic metastases since CT of April 24, 2023, as described above. A/P IMPRESSION: 1. No acute infectious or inflammatory findings are identified in the abdomen or pelvis. 2. Multifocal hepatic metastatic disease has progressed as compared to 04/24/2023. 3. Cardiomegaly and cardiac pacemaker. 4. There is a large gallstone contained within a dilated cystic duct remnant. 5. Bilateral nephrolithiasis. 6. Additional findings as above. 28. Pretreatment echocardiogram, ejection fraction of 60 to 65% 29. Liposomal doxorubicin, cycle 1 day 1: 08/29/2023 # Diarrhea/retching/nonbloody vomitus - question whether this may be a consequence of her ongoing Xeloda, see discussion above See 11/20/2022 GI consultation (Dr. Rojas) 11/27/2022 colonoscopy showed a 3 mm polyp in the cecum, hemorrhoids, relatively unremarkable colonic mucosaPATHOLOGY: - Multiple benign strips of colonic mucosa with no pathologic diagnoses are seen. - The clinical history of fecal incontinence and diarrhea is noted.Fluid aspiration negative for C. difficile, Campylobacter, Shigella, Salmonella with stool calprotectin pending # Hypokalemia. # Osteopenia 05/24/2021 DEXA - osteopeniaOn denosumab q 6 mos Note fall with right rib fracture 10/04/2022 # B12 deficiency 04/09/2023 B12 1185 # Urology issues with significant dysuria and dysfunction, continues to follow closely with themsee notes Comorbidities: Atrial flutter, GERD, hypertension, hypothyroidism (06/27/2020 FNA of thyroid nodule unremarkable), lumbar radiculopathy, LAKSHMI, osteopenia, thrombocytosis, B12 deficiency Allergies Allergy/AdvReac Type Severity Reaction Status Date / Time metformin AdvReac Intermediate Restlessnes Verified 10/25/24 19:44 s Home Medications Medication Instructions Recorded Confirmed Type blood sugar diagnostic (OneTouch #100 ea 10/07/22 08/19/24 Rx Ultra Test strips) OneTouch Delica Plus Lancet 33 #300 ea 01/09/23 08/19/24 Rx gauge (lancets) pen needle, diabetic 32 gauge x #100 ea 06/12/23 08/19/24 Rx 5/32" (Easy Comfort Pen [place]) atorvastatin 40 mg tablet (Lipitor) 40 mg PO HS 06/07/24 10/25/24 History cholecalciferol (vitamin D3) 50 50 mcg PO QAM 06/07/24 10/25/24 History mcg (2,000 unit) capsule (Vitamin D3) diltiazem HCl 360 mg 360 mg PO QAM 06/07/24 10/25/24 History capsule,extended release 24 hr multivitamin 1 tab PO QAM 06/07/24 10/25/24 History tramadol 50 mg tablet 50 mg PO Q4H PRN Pain 06/07/24 10/25/24 History apixaban 5 mg tablet (Eliquis) 5 mg PO BID #60 tabs 06/29/24 10/25/24 Rx inhalational spacing device #1 ea 07/23/24 08/19/24 Rx methenamine hippurate 1 gram tablet 1 g PO BID #60 tabs 07/27/24 10/25/24 Rx albuterol sulfate 90 mcg/actuation 2 puff inhalation Q4 PRN Shortness 07/30/24 10/25/24 Rx aerosol inhaler Of Breath Or Wheezing #8.5 grams levothyroxine 75 mcg tablet 75 mcg PO DAILY #90 tabs 08/03/24 10/25/24 Rx furosemide 20 mg tablet 20 mg PO DAILY #90 tabs 08/09/24 10/25/24 Rx calcium carbonate (Calcium 600) 600 mg PO QAM 08/19/24 10/25/24 History acetaminophen 500 mg tablet 1,000 mg (2 x 500 mg) PO Q8H PRN 08/26/24 10/25/24 Rx (Tylenol Extra Strength) fever or pain #90 tabs bisacodyl 10 mg rectal suppository 10 mg DC DAILY PRN Constipation 10/25/24 10/25/24 History camphor 4 %-methyl salicylate 30 1 applic topical BID PRN KNEE PAIN 10/25/24 10/25/24 History %-menthol 10 % topical cream (Bengay Ultra Strength) dextrose 40 % oral gel (Glutose-15) 1 ea PO DIRECTED PRN 10/25/24 10/25/24 History HYPOGLYCEMIA <60 duloxetine 60 mg capsule,delayed 120 mg PO DAILY 10/25/24 10/25/24 History release sprinkle (Drizalma Sprinkle) insulin glargine 100 unit/mL 16 unit SC DAILY 10/25/24 10/25/24 History subcutaneous solution (Lantus U-100 Insulin) loperamide 2 mg capsule 2 mg PO Q8H PRN Diarrhea 10/25/24 10/25/24 History magnesium hydroxide 400 mg/5 mL 30 ml PO DAILY PRN Constipation 10/25/24 10/25/24 History oral suspension (Milk of Magnesia) melatonin 10 mg tablet 10 mg PO HS 10/25/24 10/25/24 History olopatadine 0.1 % eye drops 1 drp OPB DAILY PRN ITCHY EYES 10/25/24 10/25/24 History oxycodone-acetaminophen 5 mg-325 1 tab PO Q4H PRN Pain 10/25/24 10/25/24 History mg tablet potassium chloride 20 mEq 20 meq PO BID 10/25/24 10/25/24 History tablet,extended release sennosides 8.6 mg-docusate sodium 1 tab-cap PO BID 10/25/24 10/25/24 History 50 mg tablet (Senna-S) sodium phosphates 19 gram-7 118 ml DC DAILY PRN Constipation 10/25/24 10/25/24 History gram/118 mL enema (Fleet Enema) Patient History Medical History Weakness Elevated troponin Pneumonia Urgency incontinence Recurrent UTI (urinary tract infection) Memory loss Migraine Recurrent UTI Hx MRSA infection Pt unsure "I had a blood infection" as per patient ( MSSA bacteremia) Hypothyroidism Gait disturbance Walker Frequent falls "Therapy doesn't help me. I am getting fitted for a brace this week to help with my leg weakness." as per patient most recent fall 06/05/24 History of kidney stones passed on own Edema "Sometimes, I don't know what it's from" as per patient Atrial fibrillation [facility] Ike On Eliquis MDD (major depressive disorder), recurrent severe, without psychosis Difficulty with speech Anxiety Septic shock 01/12/24 [facility] IP s/p port removal MSSA bacteremia History of- Jan 2024- admitted to [facility]- treated with abx Anticoagulant long-term use Eliquis Infected venous access port hx patient states only ever had 1 and removed d/t infection- provider notes has had 2 and removed both times d/t infection History of blood transfusion Generalized weakness Lung nodules monitoring Urinary frequency Neuropathy Aortic stenosis Mild aortic stenosis (AV MG 16.7mmHg; AV peak velocity 2.70 m/s) per 06/03/24 ECHO - Dr Ramirse Diabetes mellitus, type 2 IDDM Degenerative disc disease Hx of cardiac pacemaker Implanted 2019 (tachy-monica syndrome), [employer] device Follows with Dr. Ramires Liver mass PET scan shows 2.5 right hepatic lobe mass consistent with known hepatic metastasis - CCP - reason for port placement Anemia h/o blood transfusions Infiltrating ductal carcinoma of left breast Initial Dx 2015- s/p lumpectomy, XRT and anastrozole Metastatic breast cancer 03/2020, follows with [facility] Peripheral neuropathy Hands (B/L CTS) Obstructive sleep apnea "Resolved" s/p gastric bypass (? retested) Hypercholesterolemia Gastroesophageal reflux disease controlled, stable per pt Chronic pain Cervical spine disease Limited ROM / Painful as per patient Surgical History Port-A-Cath in place (06/11/24) Insertion MRI Compatible Access Port Right Internal Jugular(Right) - Kaushal Shah MD, FACS History of revision of total replacement of right knee joint Right knee TKA revision with spacer (07/11/2021): SAB at L3-4 (x2 attempts) + PNB at [facility]. No issues noted per post-op anesthesia progress note. History of lumpectomy of left breast Status post placement of cardiac pacemaker [facility] Ramires H/O breast biopsy (05/29/23) Skin, left breast, 2 punch biopsies: In office procedure Dr. Alvarez - Fibrosing dermatitis. - See comment Status post revision of total replacement of right knee History of removal of Port-a-Cath (01/11/22) Infected port right anterior chest removed Dr. Shah History of carpal tunnel surgery of left wrist 06/2021 History of carpal tunnel surgery of right wrist Port-A-Cath in place hx - 05/2020 since removed d/t infection at port 12/2021 *hx patient states only ever had 1 and removed d/t infection- provider notes has had 2 and removed both times d/t infection History of colonoscopy (2022) History of evacuation of hematoma Hematoma right breast and right chest 08/31/13 Dr. Shah H/O bilateral hip replacements Status post repair of ventral hernia History of total knee arthroplasty Bilateral Status post total abdominal hysterectomy and bilateral salpingo-oophorectomy Status post lumbar spine surgery for decompression of spinal cord hardware present Status post panniculectomy History of section x1 Status post laparoscopic cholecystectomy Status post gastric bypass for obesity Status post arthroscopy of left shoulder Status post appendectomy Family History Unknown Breast cancer Emphysema lung Mother Diabetes Heart disease Father Heart disease Other No family history of adverse response to anesthesia Denies family history of Ovarian cancer Prostate cancer Coronary heart disease Colorectal cancer Social History Smoking Status: Former smoker Tobacco Type: Cigarettes Age Started Using Tobacco: 17; Age Quit Using Tobacco: 59; packs per day: 1; Second Hand Exposure: No; Do You Dip or Chew Tobacco: No; Hx Alcohol Use: No Hx Substance Use: No Preferred Language: Malian Communication Ability: Effective Visual Impairment: No Limitations Hearing Ability: Normal 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 Beliefs That Will Affect Care: None marital status: Current Living Situation: Spouse Current Living Situation Comment: Was discharged from [facility] 10/25/24 current occupational status: retired Feels Safe at Home: Yes Safety Concerns: Feels Safe At This Time Childhood Exposure to Second-Hand Smoke: Yes Diet: diabetic caffeine: Yes Dental Care, Regularly: No Physical Activity Frequency: 1-2 Times per Week Seatbelt Use: always Sunscreen Use: No Assistive Devices: Walker Review of Systems Review of Systems: All systems reviewed & are unremarkable except as noted in HPI & below Gastrointestinal: + abdominal pain, + bloating and + early satiety sharp unrelenting pain originating in RUQ and radiating across to LUQ. Pt reports pain is constant and never less than a 9::10 even with current anagesia regime Physical Exam Constitutional: + ill appearing and + frail appearing; n o acute distress Eyes: PERRL, conjunctivae normal, anicteric sclerae Neck: normal visual inspection and trachea midline; neck nontender Respiratory: normal respiratory effort and able to speak in complete sentences; does not use accessory muscles and no cough Auscultation: + diminished lung sounds (bilateral bases) and + wheezes (diffusely) Cardiovascular: Rate/Rhythm: regular rate and regular rhythm Heart Sounds: no murmur Vessels: + JVD Extremities: + edema (2+ LUE, trace RLE); no calf tenderness Gastrointestinal (Abdomen): normal bowel sounds, soft, nontender, no hepatosplenomegaly Inspection/Auscultation: abdomen not distended Musculoskeletal: Extremities: + joint enlargement (R knee) and strength 5/5 throughout; no cyanosis and no clubbing Skin: no rashes, warm and dry Neurologic: Psychiatric: A+Ox3, euthymic affect Results & Data Vital Signs (Past 12 Hours) Vital Signs Temp Pulse Pulse Resp BP Pulse Ox O2 Del Method 10/29/24 07:27 36.5 C 61 20 146/67 H 96 Nasal Cannula 10/29/24 03:55 36.4 C L 60 18 147/83 H 97 Nasal Cannula 10/28/24 23:50 61 10/28/24 23:23 36.8 C 60 18 150/76 H 97 Nasal Cannula O2 Flow Rate 10/29/24 07:27 3 10/29/24 03:55 10/28/24 23:50 10/28/24 23:23 4 Laboratory Results Abnormal lab results 10/28/24 10/28/24 10/29/24 Range/Units 17:00 20:06 04:38 WBC 11.67 H (4.8-10.8) K/ul RBC 3.59 L (4.20-5.40) M/uL Hgb 9.8 L (12.0-16.0) g/dl Hct 31.8 L (37.0-47.0) % MCHC 30.8 L (32.0-36.0) g/dL RDW Std Deviation 53.2 H (36.4-46.3) fL RDW Coeff of Thompson 16.9 H (11.5-14.5) % PT (9.0-12.0) Seconds INR (0.9-1.1) BUN/Creatinine Ratio 23.0 H (10-20) Glucose 147 H (70-99(Fasting)) mg/dl POC Glucose 117 H 198 H (70-99) mg/dl Calcium 8.5 L (8.6-10.3) mg/dl 10/29/24 10/29/24 10/29/24 Range/Units 05:57 07:39 11:46 WBC (4.8-10.8) K/ul RBC (4.20-5.40) M/uL Hgb (12.0-16.0) g/dl Hct (37.0-47.0) % MCHC (32.0-36.0) g/dL RDW Std Deviation (36.4-46.3) fL RDW Coeff of Thompson (11.5-14.5) % PT 13.6 H (9.0-12.0) Seconds INR 1.3 H (0.9-1.1) BUN/Creatinine Ratio (10-20) Glucose (70-99(Fasting)) mg/dl POC Glucose 172 H 172 H (70-99) mg/dl Calcium (8.6-10.3) mg/dl Diagnostic Findings Chest X-Ray 10/25/24 18:33 Chest radiograph, one view History: Chest pain Comparison: 12/30/2020 Findings/impression: Single AP view of the chest performed. No focal consolidation or pleural effusion. No pneumothorax. Cardiomegaly with a left chest wall dual-lead AICD again seen. Right chest wall port is present with catheter tip at the lower SVC. Left pleural effusion and bilateral perihilar pulmonary edema seen. There are also a few nodular opacities in the right lung, with underlying infection or malignancy not excluded. Left shoulder arthroplasty. Osteopenia. Degenerative right shoulder joint changes. Electronically signed by Quinn Allen 10-25-2024 8:[address] 10/26/24 10:35 CT chest diagnostic wo con CT DOSE: 575.32 mGy.cm CLINICAL HISTORY: 74 years-old Female with eval left base for malignancy. Acute chest pain or shortness of breath TECHNIQUE: Multiaxial CT images of the chest were performed without contrast. A dose lowering technique was utilized adhering to the principles of ALARA. COMPARISON: 08/20/2024 FINDINGS: No thyroid nodule identified. Subcentimeter mediastinal and hilar lymph nodes are present. Moderate cardiomegaly with small pericardial effusion. Moderate to extensive coronary artery calcifications. Left subclavian pacer. Dilated main pulmonary artery suggestive of pulmonary arterial hypertension again noted. Moderate layering pleural effusions redemonstrated along with associated intralobular septal thickening. There is no pneumothorax. The previously noted 5 mm right lower lobe pulmonary nodule is obscured by consolidation. Multifocal patchy groundglass and consolidative opacities are noted bilaterally, left greater than right. There is left lower lobe consolidation with volume loss. Central airways are patent. Hepatic metastasis redemonstrated. A 5 cm right hepatic lobe mass is unchanged. Streak artifact from left shoulder arthroplasty. Degenerative changes of the right shoulder and spine. Right IJ [id number] catheter. There are a few healed chronic right-sided rib fractures noted. IMPRESSION: 1. Cardiomegaly with interstitial pulmonary edema, moderate pleural effusions with left greater than right bibasilar consolidation. 2. Multilobar distribution of patchy alveolar opacities may represent alveolar pulmonary edema versus multifocal pneumonia. 3. Subcentimeter mediastinal and hilar lymph nodes. 4. Multifocal hepatic metastasis redemonstrated. ACT 112: Negative or not required by law. Electronically signed by: Jeremy Batres M.D. 10/26/2024 1:31 PM Abdomen/Pelvis CT 06/12/25 16:07 Clinical History: Abdominal pain. Metastatic disease Technique: Axial computed tomography images were obtained of the abdomen and pelvis after the administration of intravenous contrast. Comparison is made to the prior CT dated 08/30/2021. Findings: There has been interval increase in size and number of numerous liver masses, consistent with metastatic disease. These measure up to 4.7 cm in size. The liver is mildly enlarged measuring 19.4 cm. The portal vein is patent. The gallbladder has been removed. No bile duct dilatation is noted. The spleen is of normal size. No focal splenic lesion is evident. There is an unchanged small 4 mm cyst in the proximal pancreatic body. The pancreas otherwise appears normal with no sign of acute or chronic pancreatitis and no mass lesion noted. The pancreatic duct is of normal caliber. The adrenal glands appear unremarkable. There is a 4 mm right renal calculus and there is a suspected 1-2 mm left renal calculus. There is no hydronephrosis or perinephric stranding. No renal mass lesion is identified. There are small bilateral renal cysts, measuring up to 6 mm The aorta is of normal caliber. No abdominal adenopathy is seen. The stomach appears normal. There is an unchanged focally dilated ileum in the central pelvis adjacent to anastomotic sutures. This could be due to ileus or a postoperative pouch. There is no definite sign of small bowel obstruction. There is sigmoid diverticulosis without definite diverticulitis. There is constipation and possible mild colonic ileus. No free intraperitoneal fluid or air is identified. The bladder is decompressed. The iliac arteries are of normal caliber. No pelvic adenopathy is noted. The uterus appears to have been removed There are new bilateral moderate sized pleural effusions. There are multifocal nodular and groundglass opacities in the visualized lungs bilaterally, likely due to pneumonia. There is left lower lobe atelectasis. Pacemaker leads are present There are bilateral hip replacements, resulting in surrounding artifact. There is a fusion of L2-S1 Impression: 1. Bilateral pneumonia and bilateral moderate sized pleural effusions 2. Hepatic metastatic disease, significantly worsened since 2021 3. Unchanged small pancreatic cyst, likely a benign congenital or post inflammatory cyst 4. Small nonobstructing renal calculi and small bilateral renal cysts 5. Diverticulosis without definite diverticulitis ACT 112: Positive. There are findings on this exam that require communication between the performing entity and the patient following Patient Test Result Information Act ([place] ACT 112) guidelines. Electronically signed by Alex Herrera 10-28-2024 5:[address] 10/28/24 16:07 Clinical History: Breast cancer and confusion Technique: Axial computed tomography images were obtained of the brain without intravenous contrast. Comparison is made to the prior CT dated 10/08/2021 Findings: This examination is limited by motion artifact There is diffuse cerebral atrophy, within expected limits for the patient's age. Areas of decreased attenuation are seen within the periventricular white matter, likely representing chronic small vessel ischemic disease. There is no definite sign of acute or old infarction. No intracranial hemorrhage is evident. No definite mass lesion is seen on this noncontrast examination. There is no midline shift or other form of herniation. No hydrocephalus is seen. No fracture is identified. The orbits and the visualized paranasal sinuses appear unremarkable. The mastoid air cells appear clear. Impression: 1. Cerebral atrophy and chronic small vessel ischemic disease 2. Otherwise unremarkable noncontrast CT of the brain, limited by motion artifact Electronically signed by Alex Herrera 10-28-2024 5:18 PM Medications Administered Current Inpatient Medications Albuterol (Albuterol Hfa 8 Gm Inhaler) 2 puffs INH Q4H PRN PRN Reason: Shortness Of Breath Or Wheezing Stop: 11/24/24 23:04 Last Admin: 10/26/24 11:57 Dose: 2 puffs Bisacodyl (Bisacodyl 10 Mg Supp) 10 mg DC DAILY PRN PRN Reason: Constipation =-2ND LINE Stop: 11/24/24 23:04 Buspirone HCl (Buspirone 5 Mg Tab) 5 mg PO BID RUTH Stop: 11/26/24 10:54 Last Admin: 10/29/24 07:54 Dose: 5 mg Calcium Carbonate (Calcium Carbonate 1250mg Tab) 1 tab PO QAM RUTH Stop: 11/25/24 08:59 Last Admin: 10/29/24 07:53 Dose: 1 tab Dextrose (Dextrose 50% 50 Ml Syringe) 25 - 50 ml IV UD PRN; Protocol PRN Reason: Hypoglycemia Protocol Stop: 11/24/24 21:06 Diltiazem HCl (Diltiazem Hcl 180 Mg Capcr) 360 mg PO QAM RUTH Stop: 11/25/24 08:59 Last Admin: 10/29/24 07:53 Dose: 360 mg Duloxetine HCl (Duloxetine Hcl 60 Mg Cap) 120 mg PO DAILY RUTH Stop: 11/25/24 08:59 Last Admin: 10/29/24 07:53 Dose: 120 mg Furosemide (Furosemide Inj 20 Mg/2 Ml Vial) 40 mg IV [id number] RUTH Stop: 11/28/24 08:59 Last Admin: 10/29/24 08:53 Dose: Not Given Glucagon (Glucagon For Inj 1 Mg Vial) 1 mg SQ UD PRN; Protocol PRN Reason: Hypoglycemia Protocol Stop: 11/24/24 21:06 Glucose (Glucose 40% Gel 15 Gm Tube) 15 - 30 gm PO UD PRN; Protocol PRN Reason: Hypoglycemia Protocol Stop: 11/24/24 21:06 Glucose (Glucose 10 Tab/Tube) 4 - 8 tab PO UD PRN; Protocol PRN Reason: Hypoglycemia Protocol Stop: 11/24/24 21:06 Heparin Sodium (Porcine) (Heparin 100 Unit/Ml 5ml Flush) 5 ml FLUSH PRN PRN PRN Reason: Flush Stop: 11/25/24 06:43 Last Admin: 10/27/24 06:02 Dose: 5 ml Piperacillin Sod/Tazobactam Sod (Zosyn) 4.5 gm in 100 mls @ 25 mls/hr IV Q8H RUTH; Protocol Stop: 11/01/24 23:59 Last Infusion: 10/29/24 15:35 Dose: Infused Vancomycin HCl 1,250 mg/ (Sodium Chloride) 275 mls @ 200 mls/hr IV Q18H RUTH Stop: 11/01/24 17:59 Last Infusion: 10/29/24 15:35 Dose: Infused Thiamine HCl 100 mg/ Syringe 10 mls @ 2 mls/min IV QAM RUTH Stop: 11/28/24 08:59 Last Admin: 10/29/24 10:56 Dose: 2 mls/min Insulin Aspart (Insulin Aspart Per Unit Charge) 0 units SC ACHS RUTH Stop: 11/25/24 07:29 Last Admin: 10/29/24 13:31 Dose: 1 units Insulin Glargine (Lantus Per Unit Charge) 6 units SQ DAILY RUTH Stop: 11/27/24 08:59 Last Admin: 10/29/24 08:33 Dose: 6 units Levothyroxine Sodium (Levothyroxine Sodium 75 Mcg Tablet) 75 mcg PO DAILYBB [facility] Stop: 11/25/24 06:29 Last Admin: 10/29/24 05:52 Dose: 75 mcg Magnesium Hydroxide (Magnesium Hydroxide Susp 30 Ml Udc) 30 ml PO DAILY PRN PRN Reason: Constipation-FIRST Line Stop: 11/24/24 23:04 Magnesium Oxide (Magnesium Oxide 400 Mg Tab) 400 mg PO QAM RUTH Stop: 11/25/24 08:59 Last Admin: 10/29/24 07:54 Dose: 400 mg Melatonin (Melatonin 3 Mg Tab) 9 mg PO HS PRN PRN Reason: Sleep Stop: 11/24/24 23:04 Last Admin: 10/28/24 23:33 Dose: 9 mg Miscellaneous (Carbohydrates For Hypoglycemia ) 15 - 30 gm PO UD PRN PRN Reason: Hypoglycemia Protocol Stop: 11/24/24 21:06 Miscellaneous Information (Pharmacy Glycemic Mgmt Consult) 1 each N/A UD PRN PRN Reason: Consult Stop: 11/24/24 21:06 Miscellaneous Information (Vancomycin Consult Active) 1 each N/A UD PRN PRN Reason: Consult Stop: 11/24/24 23:04 Multivitamins (Multivitamin Tab) 1 tab PO QAM [facility] Stop: 11/25/24 08:59 Last Admin: 10/29/24 07:53 Dose: 1 tab Olopatadine HCl (Olopatadine Hcl 37 Drops/2.5 Ml Drops) 1 drops OP DAILY PRN PRN Reason: DRY EYES Stop: 11/27/24 08:59 Oxycodone/Acetaminophen (Oxycodone/Acetaminophen 5mg/325mg Tab) 2 tab PO Q4H PRN PRN Reason: Pain not relieved by Tramadol Stop: 11/08/24 23:04 Last Admin: 10/29/24 14:33 Dose: 2 tab Pantoprazole Sodium (Pantoprazole 40 Mg Tab) 40 mg PO BID [facility] Stop: 11/25/24 20:59 Last Admin: 10/29/24 07:54 Dose: 40 mg Polyethylene Glycol (Polyethylene (Miralax) 17 Gm Pack) 17 gm PO DAILY PRN PRN Reason: Constipation Stop: 11/24/24 23:04 Potassium Chloride (Potassium Chloride Crtab 20 Meq Tabcr) 20 meq PO BID [facility] Stop: 11/25/24 08:59 Last Admin: 10/29/24 08:33 Dose: 20 meq Senna/Docusate Sodium (Docusate Sodium/Senna 50/8.6mg Tab) 1 tab PO BID [facility] Stop: 11/25/24 08:59 Last Admin: 10/29/24 08:33 Dose: 1 tab Sodium Biphosphate/Sodium Phosphate (Sod Phosphate/Sod Biphosphate Enema 132 Ml Btl) 118 ml DC DAILY PRN PRN Reason: Constipation-fourth choice Stop: 11/24/24 23:04 Thiamine HCl (Thiamine Hcl 100 Mg Tab) 100 mg PO QAM [facility] Stop: 11/27/24 08:59 Last Admin: 10/29/24 07:54 Dose: 100 mg Tramadol HCl (Tramadol Hcl 50 Mg Tablet) 50 mg PO Q4H PRN PRN Reason: Pain, first line Stop: 11/24/24 23:04 Last Admin: 10/26/24 23:25 Dose: 50 mg Vitamin D (Cholecalciferol 25 Mcg (1000 Units) Tab) 50 mcg PO QAM [facility] Stop: 11/25/24 08:59 Last Admin: 10/29/24 07:52 Dose: 50 mcg PG Care Time/CCT Total # of Minutes Spent Total Time Spent with Patient: Total time spent is greater than 50% in coordination of care (as documented) at patient's floor/unit and/or counseling patient: Advanced Care Planning 43168 Advanced Care Planning 30 [place] [address] IN/OBS CONSULT LVL 4,60M Patient Type New History Expanded Problem Focused Exam Expanded Problem Focused Medical Decision Making Moderate Complexity Diagnoses Palliative care by specialist Z51.5 Cancer related pain G89.3 Counseling regarding advanced directives and goals of care Z71.89 Additional Codes Advanced Care Planning - 17957 Advanced Care Planning 30 Min: 89285 Advanced Care Planning 30 Min ([id number])
--- NOTE | 2024-10-29 09:15 | Pharmacy Report ---
Pharmacy Glycemic Short Note 2 - Date of Service October 29, 2024 - Glycemic Short BSG Results (Last 24 hours): 10/28/24 10/28/24 10/28/24 11:54 17:00 20:06 Glucose POC Glucose 145 H 117 H 198 H 10/29/24 10/29/24 04:38 07:39 Glucose 147 H POC Glucose 172 H OUTPATIENT ANTIDIABETIC REGIMEN: * Lantus 16 units SC daily HbA1c: 8.4% (09/20/24) ASSESSMENT: 10/29/24: * Blood sugars have been reasonably well-controlled over past 48 hours * Highest blood sugar has been at bedtime (198 mg/dL yesterday) * Received 7 units of insulin yesterday (5 units of which were basal) * Anticipating only minor adjustments today 10/28 * Patient received total of 15 units of insulin yesterday, of which 7 units were basal insulin. * BSGs trending down this AM despite a decrease in basal yesterday - will further decrease to 5 units once daily * no change to CF/CR 10/26 * CHARLEE is a 74 year old female w/ history of metastatic breast cancer and T2DM being treated for acute respiratory failure possibly secondary to CAP * Empiric vancomycin/Zosyn at this time * Pharmacy consulted for glycemic management, blood sugar of 261 mg/dL on presentation * No steroids or obvious glycemic stressors besides infection * Weight-based stress of 2 Novolog parameters w/ 0.1-0.2 unit/kg basal for today PLAN FOR INPATIENT GLYCEMIC CONTROL: * Basal insulin * Lantus 6 units daily * Bolus insulin * NovoLog per scale ACHS or Q6hrs while NPO * Goal Range: Low 120 mg/dL - High 160 mg/dL * Correction Factor: 45 mg/dL/unit * Nutritional / Prandial insulin per carb ratio of 1 unit per 12 grams CHO consumed
[2024-10-29] MEDS: THIAMINE HCL 100 MG in SYRINGE 9 ML IV SCH (10:56)
[2024-10-29] MEDS: FUROSEMIDE INJ 20 MG/2 ML VIAL IV STA (10:56)
--- NOTE | 2024-10-29 16:29 | Hospitalist Progress Note ---
Date of Service October 29, 2024 Assessment & Plan (1) Acute hypoxemic respiratory failure: (2) Multifocal pneumonia: (3) Breast cancer, stage 4: (4) Metastases to the liver: (5) Memory loss: (6) Hypothyroidism: (7) Atrial fibrillation: (8) Diabetes mellitus, type 2: (9) Hx of cardiac pacemaker: (10) Gastroesophageal reflux disease: (11) Status post gastric bypass for obesity: (12) MRSA (methicillin resistant staph aureus) culture positive: (13) Chronic headaches: (14) Stress-induced cardiomyopathy: (15) Acute HFrEF (heart failure with reduced ejection fraction): (16) Pleural effusion: Plan 74yo female with metastatic breast cancer (initial dx 2015 - localized L breast ca, with discovery of mets in 2019), afib on Eliquis, tachy-monica syndrome, DM2, hypothyroidism, anxiety she was hospitalized in 08/2024 for pneumonia. Since that admission she has been staying at [facility] for rehab but has made little progress with such. Presented to ED on 10/25/24 with dyspnea, hypoxic, tachycarda and found. Initial imaging with pulmonary edema, b/l effusions, and b/l pneumonia. her eliquis was held for thoracentesis, she's on IV diuretics, significant confusion, ammonia lab ordered, may need brain MRI to r/o metastasis #acute hypoxic respiratory failure - multifocal pneumonia, pleural effusion, volume overload giving her IV lasix, pulmonary evaluate for thoracentesis, hold eliquis she's on zosyn and vancomcyin c/w diuresis aspiration precaution ?? breast cancer with lymphagitic spread #b/l pneumonia - -zosyn/vanco as above -plan 7-10 days #stage 4 breast cancer with mets to the liver - deconditoning. -follows with Dr De Luna, cancer care clinic -off chemo since early 2024 -CT a/p in August showed progressive liver mets -will obtain repeat CT of a/p she's need brain MRI w/wo contrast to r/o metastasis once her respiratory status stable -prognosis is very, very poor -functional status at this time would preclude re-initiation of chemotherapy -plan for thoracentesis of left lung tomorrow; send fluid for cytologies -check ammonia level in am due to the extent of the hepatic mets -cannot rule out bony mets to spine given her c/o back pain #acute HFrEF 2nd to suspected stress-induced cardiomyopathy - -based on echo findings this admission -alternatively the cardiomyopathy could be ischemic in etiology -not a candidate at this time for catheterization -cont lasix IV BID -seen by pulmonary on 10/29, they are deferring thoracentesis -daily BMPs -will ultimately need beta alec +/- Entresto + diuretics #abdominal pain/flank pain/back pain - -2nd to extensive liver mets, severe constipation, other factors -tramadol not helpful; has been on this medicine for quite some time -will ask palliative care to consult for assistance with pain management #opiate-induced constipation - -CT a/p today - r/o ileus, etc. -dulcolax/miralax (multiple doses) this evening -then needs maintenance with senna/colace/miralax -dulcolax suppos prn #atrial fibrillation on Eliquis - - diltiazem 360mg daily -relatively contraindicated with the depressed LV function on echo this admission -follows with Dr Ramires; his notes state she was on meto succ in the past and it was stopped -ideally would change CCB to beta alec but defer on that today -Eliquis is on hold due to need for thoracentesis, etc #T2DM - -pharmacy providing glycemic oversight - appreciate their assistance -cont basal-bolus insulins -last a1c was 8.4% in September #hypothyroidism --leave synthroid dose as is; simply repeat TSH in about a month #chronic headaches/memory loss/confusion - -start with CT head likely need brain MRI w/wo contrast #b/l pleural effusions - -see discussion above -IR consulted for consideration of left-sided thoracentesis tomorrow #GERD - -cont PPI twice daily [place] [facility] [place] team with details re: consultation Admission and Anticipated Discharge Date Admission Date: October 25, 2024 Subjective pulmonary requested that we increased the diuresis and defer thoracentesis she is confused and disoriented f/u o ammonia level metastatic breast cancer may need brain MRI w/wo contrast to r/o metastasis she is not oriented to year, month, nor date Physical Exam Physical Exam: VITALS: Reviewed. WEIGHT/BMI reviewed. GEN: non-toxic appearing; chronically ill -Head: NC/AT; -Mouth and throat: MMM. Normal gums, muc sintia, palate,. Good dentition. NECK: Supple, with no masses. CV: RRR, no m/r/g. LUNGS: on oxygen; congested breath sound; ABD: Soft, NT/ND, NBS, no masses or organomegaly. MSK; no edema; + for knee surgery scar Results & Data Results & Data Vital Signs (Past 12 Hours) Vital Signs Temp Pulse Resp BP Pulse Ox O2 Del Method O2 Flow Rate 10/29/24 11:17 Nasal Cannula 2 10/29/24 10:52 36.5 C 60 18 131/56 L 99 Nasal Cannula 3 10/29/24 10:48 84 L Nasal Cannula 1 10/29/24 07:27 36.5 C 61 20 146/67 H 96 Nasal Cannula 3 Diagnostic Findings Laboratory Results - last 72 hr 10/26/24 10/26/24 10/27/24 16:42 20:42 06:02 WBC 14.45 H RBC 3.50 L Hgb 9.5 L Hct 31.0 L MCV 88.6 MCH 27.1 MCHC 30.6 L RDW Std Deviation 51.9 H RDW Coeff of Thompson 16.5 H Plt Count 240 MPV 11.9 Immature Gran % (Auto) 0.6 Neut % (Auto) 79.1 Lymph % (Auto) 8.0 [place] % (Auto) 10.8 Eos % (Auto) 1.0 Baso % (Auto) 0.5 Neut # (Auto) 11.44 H Lymph # (Auto) 1.15 L [place] # (Auto) 1.56 H Eos # (Auto) 0.14 Baso # (Auto) 0.07 Immature Gran # (Auto) 0.09 Absolute Nucleated RBC 0.05 Nucleated RBC % (auto) 0.3 PT INR Sodium 137 Potassium 3.7 Chloride 100 Carbon Dioxide 27 Anion Gap 10 BUN 20 Creatinine 0.71 Est Cr Clr Drug Dosing 60.4 eGFR 88.06 BUN/Creatinine Ratio 28.2 H Glucose 150 H POC Glucose 161 H 133 H Calcium 8.3 L Magnesium 1.7 Random Vancomycin 10/27/24 10/27/24 10/27/24 08:19 08:25 08:28 WBC RBC Hgb Hct MCV MCH MCHC RDW Std Deviation RDW Coeff of Thompson Plt Count MPV Immature Gran % (Auto) Neut % (Auto) Lymph % (Auto) [place] % (Auto) Eos % (Auto) Baso % (Auto) Neut # (Auto) Lymph # (Auto) [place] # (Auto) Eos # (Auto) Baso # (Auto) Immature Gran # (Auto) Absolute Nucleated RBC Nucleated RBC % (auto) PT INR Sodium Potassium Chloride Carbon Dioxide Anion Gap BUN Creatinine Est Cr Clr Drug Dosing eGFR BUN/Creatinine Ratio Glucose POC Glucose 349 H* 143 H 144 H Calcium Magnesium Random Vancomycin 10/27/24 10/27/24 10/27/24 12:00 16:39 20:20 WBC RBC Hgb Hct MCV MCH MCHC RDW Std Deviation RDW Coeff of Thompson Plt Count MPV Immature Gran % (Auto) Neut % (Auto) Lymph % (Auto) [place] % (Auto) Eos % (Auto) Baso % (Auto) Neut # (Auto) Lymph # (Auto) [place] # (Auto) Eos # (Auto) Baso # (Auto) Immature Gran # (Auto) Absolute Nucleated RBC Nucleated RBC % (auto) PT INR Sodium Potassium Chloride Carbon Dioxide Anion Gap BUN Creatinine Est Cr Clr Drug Dosing eGFR BUN/Creatinine Ratio Glucose POC Glucose 131 H 161 H 209 H Calcium Magnesium Random Vancomycin 10/28/24 10/28/24 10/28/24 04:55 07:49 11:54 WBC 11.82 H RBC 3.22 L Hgb 8.8 L Hct 28.8 L MCV 89.4 MCH 27.3 MCHC 30.6 L RDW Std Deviation 53.2 H RDW Coeff of Thompson 16.6 H Plt Count 202 MPV 11.7 Immature Gran % (Auto) 0.7 Neut % (Auto) 78.8 Lymph % (Auto) 7.3 [place] % (Auto) 11.4 Eos % (Auto) 1.4 Baso % (Auto) 0.4 Neut # (Auto) 9.31 H Lymph # (Auto) 0.86 L [place] # (Auto) 1.35 H Eos # (Auto) 0.17 Baso # (Auto) 0.05 Immature Gran # (Auto) 0.08 Absolute Nucleated RBC 0.04 Nucleated RBC % (auto) 0.3 PT INR Sodium 138 Potassium 3.5 Chloride 103 Carbon Dioxide 24 Anion Gap 11 BUN 19 Creatinine 0.69 Est Cr Clr Drug Dosing 62.1 eGFR 89.89 BUN/Creatinine Ratio 27.5 H Glucose 89 POC Glucose 94 145 H Calcium 8.0 L Magnesium 1.7 Random Vancomycin 17.7 10/28/24 10/28/24 10/29/24 17:00 20:06 04:38 WBC 11.67 H RBC 3.59 L Hgb 9.8 L Hct 31.8 L MCV 88.6 MCH 27.3 MCHC 30.8 L RDW Std Deviation 53.2 H RDW Coeff of Thompson 16.9 H Plt Count 214 MPV 12.2 Immature Gran % (Auto) Neut % (Auto) Lymph % (Auto) [place] % (Auto) Eos % (Auto) Baso % (Auto) Neut # (Auto) Lymph # (Auto) [place] # (Auto) Eos # (Auto) Baso # (Auto) Immature Gran # (Auto) Absolute Nucleated RBC 0.02 Nucleated RBC % (auto) 0.2 PT INR Sodium 137 Potassium 3.5 Chloride 101 Carbon Dioxide 27 Anion Gap 9 BUN 17 Creatinine 0.74 Est Cr Clr Drug Dosing 58.0 eGFR 83.80 BUN/Creatinine Ratio 23.0 H Glucose 147 H POC Glucose 117 H 198 H Calcium 8.5 L Magnesium Random Vancomycin 10/29/24 10/29/24 10/29/24 05:57 07:39 11:46 WBC RBC Hgb Hct MCV MCH MCHC RDW Std Deviation RDW Coeff of Thompson Plt Count MPV Immature Gran % (Auto) Neut % (Auto) Lymph % (Auto) [place] % (Auto) Eos % (Auto) Baso % (Auto) Neut # (Auto) Lymph # (Auto) [place] # (Auto) Eos # (Auto) Baso # (Auto) Immature Gran # (Auto) Absolute Nucleated RBC Nucleated RBC % (auto) PT 13.6 H INR 1.3 H Sodium Potassium Chloride Carbon Dioxide Anion Gap BUN Creatinine Est Cr Clr Drug Dosing eGFR BUN/Creatinine Ratio Glucose POC Glucose 172 H 172 H Calcium Magnesium Random Vancomycin Medications Administered Current Inpatient Medications Albuterol (Albuterol Hfa 8 Gm Inhaler) 2 puffs INH Q4H PRN PRN Reason: Shortness Of Breath Or Wheezing Stop: 11/24/24 23:04 Last Admin: 10/26/24 11:57 Dose: 2 puffs Bisacodyl (Bisacodyl 10 Mg Supp) 10 mg KY DAILY PRN PRN Reason: Constipation =-2ND LINE Stop: 11/24/24 23:04 Buspirone HCl (Buspirone 5 Mg Tab) 5 mg PO BID RUTH Stop: 11/26/24 10:54 Last Admin: 10/29/24 07:54 Dose: 5 mg Calcium Carbonate (Calcium Carbonate 1250mg Tab) 1 tab PO QAM RUTH Stop: 11/25/24 08:59 Last Admin: 10/29/24 07:53 Dose: 1 tab Dextrose (Dextrose 50% 50 Ml Syringe) 25 - 50 ml IV UD PRN; Protocol PRN Reason: Hypoglycemia Protocol Stop: 11/24/24 21:06 Diltiazem HCl (Diltiazem Hcl 180 Mg Capcr) 360 mg PO QAM [facility] Stop: 11/25/24 08:59 Last Admin: 10/29/24 07:53 Dose: 360 mg Duloxetine HCl (Duloxetine Hcl 60 Mg Cap) 120 mg PO DAILY RUTH Stop: 11/25/24 08:59 Last Admin: 10/29/24 07:53 Dose: 120 mg Furosemide (Furosemide Inj 20 Mg/2 Ml Vial) 40 mg IV [id number] [facility] Stop: 11/28/24 08:59 Last Admin: 10/29/24 08:53 Dose: Not Given Glucagon (Glucagon For Inj 1 Mg Vial) 1 mg SQ UD PRN; Protocol PRN Reason: Hypoglycemia Protocol Stop: 11/24/24 21:06 Glucose (Glucose 40% Gel 15 Gm Tube) 15 - 30 gm PO UD PRN; Protocol PRN Reason: Hypoglycemia Protocol Stop: 11/24/24 21:06 Glucose (Glucose 10 Tab/Tube) 4 - 8 tab PO UD PRN; Protocol PRN Reason: Hypoglycemia Protocol Stop: 11/24/24 21:06 Heparin Sodium (Porcine) (Heparin 100 Unit/Ml 5ml Flush) 5 ml FLUSH PRN PRN PRN Reason: Flush Stop: 11/25/24 06:43 Last Admin: 10/27/24 06:02 Dose: 5 ml Piperacillin Sod/Tazobactam Sod (Zosyn) 4.5 gm in 100 mls @ 25 mls/hr IV Q8H RUTH; Protocol Stop: 11/01/24 23:59 Last Infusion: 10/29/24 15:35 Dose: Infused Vancomycin HCl 1,250 mg/ (Sodium Chloride) 275 mls @ 200 mls/hr IV Q18H [facility] Stop: 11/01/24 17:59 Last Infusion: 10/29/24 15:35 Dose: Infused Thiamine HCl 100 mg/ Syringe 10 mls @ 2 mls/min IV QAM [facility] Stop: 11/28/24 08:59 Last Admin: 10/29/24 10:56 Dose: 2 mls/min Insulin Aspart (Insulin Aspart Per Unit Charge) 0 units SC ACHS [facility] Stop: 11/25/24 07:29 Last Admin: 10/29/24 13:31 Dose: 1 units Insulin Glargine (Lantus Per Unit Charge) 6 units SQ DAILY [facility] Stop: 11/27/24 08:59 Last Admin: 10/29/24 08:33 Dose: 6 units Levothyroxine Sodium (Levothyroxine Sodium 75 Mcg Tablet) 75 mcg PO DAILYBB [facility] Stop: 11/25/24 06:29 Last Admin: 10/29/24 05:52 Dose: 75 mcg Magnesium Hydroxide (Magnesium Hydroxide Susp 30 Ml Udc) 30 ml PO DAILY PRN PRN Reason: Constipation-FIRST Line Stop: 11/24/24 23:04 Magnesium Oxide (Magnesium Oxide 400 Mg Tab) 400 mg PO QAM [facility] Stop: 11/25/24 08:59 Last Admin: 10/29/24 07:54 Dose: 400 mg Melatonin (Melatonin 3 Mg Tab) 9 mg PO HS PRN PRN Reason: Sleep Stop: 11/24/24 23:04 Last Admin: 10/28/24 23:33 Dose: 9 mg Miscellaneous (Carbohydrates For Hypoglycemia ) 15 - 30 gm PO UD PRN PRN Reason: Hypoglycemia Protocol Stop: 11/24/24 21:06 Miscellaneous Information (Pharmacy Glycemic Mgmt Consult) 1 each N/A UD PRN PRN Reason: Consult Stop: 11/24/24 21:06 Miscellaneous Information (Vancomycin Consult Active) 1 each N/A UD PRN PRN Reason: Consult Stop: 11/24/24 23:04 Multivitamins (Multivitamin Tab) 1 tab PO QAM [facility] Stop: 11/25/24 08:59 Last Admin: 10/29/24 07:53 Dose: 1 tab Olopatadine HCl (Olopatadine Hcl 37 Drops/2.5 Ml Drops) 1 drops OP DAILY PRN PRN Reason: DRY EYES Stop: 11/27/24 08:59 Oxycodone/Acetaminophen (Oxycodone/Acetaminophen 5mg/325mg Tab) 2 tab PO Q4H PRN PRN Reason: Pain not relieved by Tramadol Stop: 11/08/24 23:04 Last Admin: 10/29/24 14:33 Dose: 2 tab Pantoprazole Sodium (Pantoprazole 40 Mg Tab) 40 mg PO BID [facility] Stop: 11/25/24 20:59 Last Admin: 10/29/24 07:54 Dose: 40 mg Polyethylene Glycol (Polyethylene (Miralax) 17 Gm Pack) 17 gm PO DAILY PRN PRN Reason: Constipation Stop: 11/24/24 23:04 Potassium Chloride (Potassium Chloride Crtab 20 Meq Tabcr) 20 meq PO BID [facility] Stop: 11/25/24 08:59 Last Admin: 10/29/24 08:33 Dose: 20 meq Senna/Docusate Sodium (Docusate Sodium/Senna 50/8.6mg Tab) 1 tab PO BID [facility] Stop: 11/25/24 08:59 Last Admin: 10/29/24 08:33 Dose: 1 tab Sodium Biphosphate/Sodium Phosphate (Sod Phosphate/Sod Biphosphate Enema 132 Ml Btl) 118 ml [place] DAILY PRN PRN Reason: Constipation-fourth choice Stop: 11/24/24 23:04 Thiamine HCl (Thiamine Hcl 100 Mg Tab) 100 mg PO QAM [facility] Stop: 11/27/24 08:59 Last Admin: 10/29/24 07:54 Dose: 100 mg Tramadol HCl (Tramadol Hcl 50 Mg Tablet) 50 mg PO Q4H PRN PRN Reason: Pain, first line Stop: 11/24/24 23:04 Last Admin: 10/26/24 23:25 Dose: 50 mg Vitamin D (Cholecalciferol 25 Mcg (1000 Units) Tab) 50 mcg PO QAM [facility] Stop: 11/25/24 08:59 Last Admin: 10/29/24 07:52 Dose: 50 mcg PG Care Time/CCT Total # of Minutes Spent Total Time Spent with Patient: Total time spent is greater than 50% in coordination of care (as documented) at patient's floor/unit and/or counseling patient: Coding Level of Care Code 45176 SUB INP/OBS CARE 2/35MIN Diagnoses Acute hypoxemic respiratory failure J96.01 Multifocal pneumonia J18.9 Breast cancer, stage 4 C50.919 Metastases to the liver C78.7 Memory loss R41.3 Hypothyroidism E03.9 Atrial fibrillation I48.91 Diabetes mellitus, type 2 E11.9 Hx of cardiac pacemaker Z95.0 Gastroesophageal reflux disease, esophagitis presence not specified K21.9 Esophagitis presence: esophagitis presence not specified Status post gastric bypass for obesity Z98.84 MRSA (methicillin resistant staph aureus) culture positive Z22.322 Chronic headaches R51.9; G89.29 Stress-induced cardiomyopathy I51.81 Acute HFrEF (heart failure with reduced ejection fraction) I50.21 Pleural effusion J90 Time Spent (min) 35 (10) Gastroesophageal reflux disease Esophagitis presence: esophagitis presence not specified Qualified Code(s): K21.9 - Gastro-esophageal reflux disease without esophagitis
[2024-10-30 06:33] LABS: Creatinine Clr Calc Pharmacy 60.4 ml/min
[2024-10-30 08:06] LABS: Hematocrit (blood only) 31.0 % (37.0-47.0); Hemoglobin 9.5 g/dl (12.0-16.0); Mean Corpuscular Hemoglobin 27.4 pg (25.0-34.0); Mean Corpuscular Volume 89.3 fL (80.0-100.0); Platelet Count 204 K/uL (130-400); RDW Standard Deviation 54.2 fL (36.4-46.3); Red Blood Count 3.47 M/uL (4.20-5.40); White Blood Count 14.06 K/ul (4.8-10.8)
[2024-10-30 08:29] LABS: Anion Gap 9.0 (3-11); Blood Urea Nitrogen 14.0 mg/dl (6-23); Calcium 8.4 mg/dl (8.6-10.3); Carbon Dioxide 27.0 mmol/L (21-32); Chloride 101.0 mmol/L (98-107); Creatinine Clr Calc Pharmacy 66.0 ml/min; Glucose 161.0 mg/dl (70-99(Fasting)); Potassium 3.7 mmol/L (3.5-5.1); Sodium 137.0 mmol/L (136-145)
--- NOTE | 2024-10-30 09:54 | Procedure Note ---
Procedure Note Date of Service October 29, 2024 Bedside Ultrasound: Lung: Right:-Small to moderate RASS of pleural effusion with atelectasis of the right lower lobe Left:-Moderate left-sided pleural effusion Please note the above document was generated using voice recognition software. It may contain grammatical, syntax or spelling errors.Any formal questions or concerns about the content, text or information contained within the body of this dictation should be directly addressed to the provider for clarification. [facility] [place] Procedure Codes (Charges) Pulmonary/Thoracic Procedure 1: Pulmonary and Thoracic: 59434 US, Chest, real time with imaging documentation Coding CPT Codes Pulmonary/Thoracic - Pulmonary and Thoracic: 49693 US, Chest, real time with imaging documentation ([id number]) Additional Codes Date of Service (PG.SURGERY)
--- NOTE | 2024-10-30 10:01 | Pulmonology Progress Note ---
Date of Service October 30, 2024 Assessment & Plan (1) Acute HFrEF (heart failure with reduced ejection fraction): (2) Multifocal pneumonia: (3) Acute hypoxemic respiratory failure: (4) Metastases to the liver: (5) Pleural effusion: (6) Pulmonary hypertension: Plan CT chest 10/26/2024 personally reviewed: Diffuse alveolar opacities appreciated bilaterally upper and lower lobe Compressive atelectasis of the left lower lobe Moderate bilateral pleural effusion Cardiomegaly Minimal mediastinal and hilar lymphadenopathy 2D echo 10/26/2024: EF 35-40%, RV normal in size and function, RVSP 40-50 mmHg -- Acute hypoxic respiratory failure Multifactorial Respiratory BioFire negative for everything Nasal MRSA positive BNP 1519 --Bilateral pleural effusion Likely secondary to cardiac etiology I discussed the findings with the patient's daughter on 10/29/2024 in the evening, she and the patient would would like to be conservative and will try to avoid any invasive procedures unless absolutely necessary --Pulmonary hypertension Likely type II Continue with diuretics --[id number] smoking history Recommend outpatient pulmonary function test when she is adequately diuresed --A-fib On Eliquis Eliquis has been on hold since 10/26/2024 Plan: In/out: +840, urine output 650 mL, please make note that the patient has pure wick and the urine output is not accurate Patient is reluctant to have a Sage catheter placed. Continue with diuretics to keep the patient negative balance of at least -1-1.5 L in 24 hours Continue with Lasix to 40 mg twice daily Continue with antibiotics BiPAP nightly and as needed shortness of will be helpful to open of the lungs Plan discussed with primary team as well as RN at bedside Please note the above document was generated using voice recognition software. It may contain grammatical, syntax or spelling errors.Any formal questions or concerns about the content, text or information contained within the body of this dictation should be directly addressed to the provider for clarification. Admission and Anticipated Discharge Date Admission Date: October 25, 2024 Subjective Patient seen and examined at bedside. No acute distress, no adverse events overnight She was saturating 96% on 1 L oxygen She denies any chest pain Has been diuresing but her urine output has gone down in the last 3-4 hours Denies any abdominal pain No unusual headache or blurry vision No headache, no nausea or vomiting Review of Systems 2 Review of Systems: All systems reviewed & are unremarkable except as noted in Subjective Physical Exam 2 Physical Exam: Constitutional: No acute distress HEENT: EOMI, PERRLA Respiratory system: Decreased air entry bilaterally, more decreased on the left, no wheeze, no rhonchi, positive crackles bilaterally CVS: S1-S2 positive, positive 3 out of 8 systolic murmur appreciated best at apex Abdomen: Soft, nontender, nondistended, positive bowel sounds x4 Extremities: +2 pulses bilaterally radialis/ dorsalis pedis, no cyanosis, + pitting edema bilateral lower extremity Neuro: Awake alert oriented x3 Psych: Normal mood and affect G/U: Pure wick Skin: no rashes, warm and dry Lymphatic: no cervical or axillary lymphadenopathy Results & Data Results & Data Vital Signs (Past 12 Hours) Vital Signs Temp Pulse Pulse Resp BP Pulse Ox O2 Del Method 10/30/24 07:40 37 C 57 L 19 172/71 H 90 Nasal Cannula 10/30/24 03:30 36.4 C L 59 L 20 148/73 H 96 Nasal Cannula 10/29/24 23:41 36.7 C 60 16 149/78 H 96 Nasal Cannula 10/29/24 23:28 60 O2 Flow Rate 10/30/24 07:40 1 10/30/24 03:30 1 10/29/24 23:41 2 10/29/24 23:28 Laboratory Results 10/30/24 07:54 10/30/24 07:54 PG Care Time/CCT Total # of Minutes Spent Total Time Spent with Patient: Total time spent is greater than 50% in coordination of care (as documented) at patient's floor/unit and/or counseling patient: Coding Level of Care Code 53359 SUB INP/OBS CARE 235MIN Diagnoses Acute HFrEF (heart failure with reduced ejection fraction) I50.21 Multifocal pneumonia J18.9 Acute hypoxemic respiratory failure J96.01 Metastases to the liver C78.7 Pleural effusion J90 Pulmonary hypertension I27.20
[2024-10-30] MEDS: FIRST - Mouthwash BLM 5 ML UDP PO SCH (10:42)
[2024-10-30] MEDS: LIDOCAINE 5% OINT 30 GM TUBE EXT SCH (10:43)
[2024-10-30] MEDS: NYSTATIN SUSP 500,000 U/5 ML UDC PO SCH (10:48)
--- NOTE | 2024-10-30 13:48 | Hospitalist Progress Note ---
Date of Service October 30, 2024 Assessment & Plan (1) Acute hypoxemic respiratory failure: (2) Multifocal pneumonia: (3) Breast cancer, stage 4: (4) Metastases to the liver: (5) Memory loss: (6) Hypothyroidism: (7) Atrial fibrillation: (8) Diabetes mellitus, type 2: (9) Hx of cardiac pacemaker: (10) Gastroesophageal reflux disease: (11) Status post gastric bypass for obesity: (12) MRSA (methicillin resistant staph aureus) culture positive: (13) Chronic headaches: (14) Stress-induced cardiomyopathy: (15) Acute HFrEF (heart failure with reduced ejection fraction): (16) Pleural effusion: Plan 74yo female with metastatic breast cancer (initial dx 2015 - localized L breast ca, with discovery of mets in 2019), afib on Eliquis, tachy-monica syndrome, DM2, hypothyroidism, anxiety she was hospitalized in 08/2024 for pneumonia. Since that admission she has been staying at [facility] for rehab but has made little progress with such. Presented to ED on 10/25/24 with dyspnea, hypoxic, tachycarda and found. Initial imaging with pulmonary edema, b/l effusions, and b/l pneumonia. her eliquis was held for thoracentesis, she's on IV diuretics, significant confusion, ammonia lab ordered, may need brain MRI to r/o metastasis overall plan continue antibiotics for her pneumonia IV diuretics to address her pleural effusion she mainly has anorexia and deconditoning added marinol for appetite stimulant, thiamine to prevent wernicke her daughter has ongoing concern about her ability to tolerate chemotherapy will continue medical management and then involved palliative care for goal of care discussion and pain management #acute hypoxic respiratory failure - multifocal pneumonia, pleural effusion, volume overload giving her IV lasix, hold eliquis daughter is deferring thoracentesis, bridge her with lovenox she's on zosyn and vancomcyin c/w diuresis aspiration precaution ?? breast cancer with lymphagitic spread pleural effusion family is deferring thoracentesis seen by pulmonary pulmonary recommened ongoing diuresis #b/l pneumonia - -zosyn/vanco as above -plan 7-10 days #stage 4 breast cancer with mets to the liver - deconditoning. -follows with Dr De Luna, cancer care clinic -off chemo since early 2024 -CT a/p in August showed progressive liver mets -will obtain repeat CT of a/p she's need brain MRI w/wo contrast to r/o metastasis once her respiratory status stable -prognosis is very, very poor -functional status at this time would preclude re-initiation of chemotherapy -check ammonia level in am due to the extent of the hepatic mets -cannot rule out bony mets to spine given her c/o back pain #acute HFrEF 2nd to suspected stress-induced cardiomyopathy - -based on echo findings this admission -alternatively the cardiomyopathy could be ischemic in etiology -not a candidate at this time for catheterization -cont lasix IV BID -seen by pulmonary on 10/29, they are deferring thoracentesis -daily BMPs -will ultimately need beta alec +/- Entresto + diuretics #abdominal pain/flank pain/back pain - -2nd to extensive liver mets, severe constipation, other factors -tramadol not helpful; has been on this medicine for quite some time -will ask palliative care to consult for assistance with pain management #opiate-induced constipation - -CT a/p today - r/o ileus, etc. -dulcolax/miralax (multiple doses) this evening -then needs maintenance with senna/colace/miralax -dulcolax suppos prn #atrial fibrillation on Eliquis - - diltiazem 360mg daily -relatively contraindicated with the depressed LV function on echo this admission -follows with Dr Ramires; his notes state she was on meto succ in the past and it was stopped -ideally would change CCB to beta alec but defer on that today -Eliquis is on hold due to need for thoracentesis, etc #T2DM - -pharmacy providing glycemic oversight - appreciate their assistance -cont basal-bolus insulins -last a1c was 8.4% in September #hypothyroidism --leave synthroid dose as is; simply repeat TSH in about a month #chronic headaches/memory loss/confusion - -start with CT head likely need brain MRI w/wo contrast #b/l pleural effusions - -see discussion above -IR consulted for consideration of left-sided thoracentesis tomorrow #GERD - -cont PPI twice daily correspondence sent to [facility] Palliative care team with details re: consultation Admission and Anticipated Discharge Date Admission Date: October 25, 2024 Subjective her breathing is stable on 2 liter, pleural effusion, she's currently receiving IV diuretics she still confused and disoriented, on thiamine to spencer mentioned chronic neck pain, started on lidocaine gel magic mouth wash for sore throat Review of Systems Review of Systems: Constitutional: no fever no chill ENT/Mouth: + for sore throat Cardiovascular: no chest pain pulmonary: no worsening shortness of breath Gastrointestinal: No Nausea, No Vomiting, No Diarrhea, No Constipation, No Pain, No Heartburn, No Anorexia, No Dysphagia, No Hematochezia, No Melena, No Flatulence, No Jaundice Neuro: + for forgetfulness; + for confusion Physical Exam Physical Exam: VITALS: Reviewed. WEIGHT/BMI reviewed. GEN: chronically ill appearing neuro: not oriented to year; month nor date oriented to herself and place. -Head: NC/AT; NECK: painful range of motion. CV: RRR, no m/r/g. LUNGS: congested breath sound; on 2 liter oxygen; no wheezing ABD: Soft, NT/ND, NBS, no masses or organomegaly. MSK: No deformities, Normal gait. Results & Data Results & Data Vital Signs (Past 12 Hours) Vital Signs Temp Pulse Pulse Resp BP Pulse Ox O2 Del Method 10/30/24 10:49 36.3 C L 60 19 151/71 H 94 Nasal Cannula 10/30/24 10:20 60 10/30/24 09:44 Nasal Cannula 10/30/24 07:40 37 C 57 L 19 172/71 H 90 Nasal Cannula 10/30/24 03:30 36.4 C L 59 L 20 148/73 H 96 Nasal Cannula O2 Flow Rate 10/30/24 10:49 1 10/30/24 10:20 10/30/24 09:44 1 10/30/24 07:40 1 10/30/24 03:30 1 Laboratory Results Laboratory Results - last 72 hr 10/27/24 10/27/24 10/28/24 16:39 20:20 04:55 WBC 11.82 H RBC 3.22 L Hgb 8.8 L Hct 28.8 L MCV 89.4 MCH 27.3 MCHC 30.6 L RDW Std Deviation 53.2 H RDW Coeff of Thompson 16.6 H Plt Count 202 MPV 11.7 Immature Gran % (Auto) 0.7 Neut % (Auto) 78.8 Lymph % (Auto) 7.3 [place] % (Auto) 11.4 Eos % (Auto) 1.4 Baso % (Auto) 0.4 Neut # (Auto) 9.31 H Lymph # (Auto) 0.86 L [place] # (Auto) 1.35 H Eos # (Auto) 0.17 Baso # (Auto) 0.05 Immature Gran # (Auto) 0.08 Absolute Nucleated RBC 0.04 Nucleated RBC % (auto) 0.3 PT INR Sodium 138 Potassium 3.5 Chloride 103 Carbon Dioxide 24 Anion Gap 11 BUN 19 Creatinine 0.69 Est Cr Clr Drug Dosing 62.1 eGFR 89.89 BUN/Creatinine Ratio 27.5 H Glucose 89 POC Glucose 161 H 209 H Calcium 8.0 L Magnesium 1.7 Ammonia Random Vancomycin 17.7 10/28/24 10/28/24 10/28/24 07:49 11:54 17:00 WBC RBC Hgb Hct MCV MCH MCHC RDW Std Deviation RDW Coeff of Thompson Plt Count MPV Immature Gran % (Auto) Neut % (Auto) Lymph % (Auto) [place] % (Auto) Eos % (Auto) Baso % (Auto) Neut # (Auto) Lymph # (Auto) [place] # (Auto) Eos # (Auto) Baso # (Auto) Immature Gran # (Auto) Absolute Nucleated RBC Nucleated RBC % (auto) PT INR Sodium Potassium Chloride Carbon Dioxide Anion Gap BUN Creatinine Est Cr Clr Drug Dosing eGFR BUN/Creatinine Ratio Glucose POC Glucose 94 145 H 117 H Calcium Magnesium Ammonia Random Vancomycin 10/28/24 10/29/24 10/29/24 20:06 04:38 05:57 WBC 11.67 H RBC 3.59 L Hgb 9.8 L Hct 31.8 L MCV 88.6 MCH 27.3 MCHC 30.8 L RDW Std Deviation 53.2 H RDW Coeff of Thompson 16.9 H Plt Count 214 MPV 12.2 Immature Gran % (Auto) Neut % (Auto) Lymph % (Auto) [place] % (Auto) Eos % (Auto) Baso % (Auto) Neut # (Auto) Lymph # (Auto) [place] # (Auto) Eos # (Auto) Baso # (Auto) Immature Gran # (Auto) Absolute Nucleated RBC 0.02 Nucleated RBC % (auto) 0.2 PT 13.6 H INR 1.3 H Sodium 137 Potassium 3.5 Chloride 101 Carbon Dioxide 27 Anion Gap 9 BUN 17 Creatinine 0.74 Est Cr Clr Drug Dosing 58.0 eGFR 83.80 BUN/Creatinine Ratio 23.0 H Glucose 147 H POC Glucose 198 H Calcium 8.5 L Magnesium Ammonia Random Vancomycin 10/29/24 10/29/24 10/29/24 07:39 11:46 16:19 WBC RBC Hgb Hct MCV MCH MCHC RDW Std Deviation RDW Coeff of Thompson Plt Count MPV Immature Gran % (Auto) Neut % (Auto) Lymph % (Auto) [place] % (Auto) Eos % (Auto) Baso % (Auto) Neut # (Auto) Lymph # (Auto) [place] # (Auto) Eos # (Auto) Baso # (Auto) Immature Gran # (Auto) Absolute Nucleated RBC Nucleated RBC % (auto) PT INR Sodium Potassium Chloride Carbon Dioxide Anion Gap BUN Creatinine Est Cr Clr Drug Dosing eGFR BUN/Creatinine Ratio Glucose POC Glucose 172 H 172 H Calcium Magnesium Ammonia 22.0 Random Vancomycin 10/29/24 10/29/24 10/30/24 16:30 20:47 05:48 WBC RBC Hgb Hct MCV MCH MCHC RDW Std Deviation RDW Coeff of Thompson Plt Count MPV Immature Gran % (Auto) Neut % (Auto) Lymph % (Auto) [place] % (Auto) Eos % (Auto) Baso % (Auto) Neut # (Auto) Lymph # (Auto) [place] # (Auto) Eos # (Auto) Baso # (Auto) Immature Gran # (Auto) Absolute Nucleated RBC Nucleated RBC % (auto) PT INR Sodium Potassium Chloride Carbon Dioxide Anion Gap BUN Creatinine 0.71 Est Cr Clr Drug Dosing 60.4 eGFR 88.06 BUN/Creatinine Ratio Glucose POC Glucose 196 H 192 H Calcium Magnesium Ammonia Random Vancomycin 10/30/24 10/30/24 10/30/24 07:54 08:04 11:53 WBC 14.06 H RBC 3.47 L Hgb 9.5 L Hct 31.0 L MCV 89.3 MCH 27.4 MCHC 30.6 L RDW Std Deviation 54.2 H RDW Coeff of Thompson 17.1 H Plt Count 204 MPV 11.5 Immature Gran % (Auto) Neut % (Auto) Lymph % (Auto) [place] % (Auto) Eos % (Auto) Baso % (Auto) Neut # (Auto) Lymph # (Auto) [place] # (Auto) Eos # (Auto) Baso # (Auto) Immature Gran # (Auto) Absolute Nucleated RBC 0.02 Nucleated RBC % (auto) 0.1 PT INR Sodium 137 Potassium 3.7 Chloride 101 Carbon Dioxide 27 Anion Gap 9 BUN 14 Creatinine 0.65 Est Cr Clr Drug Dosing 66.0 eGFR 91.19 BUN/Creatinine Ratio 21.5 H Glucose 161 H POC Glucose 161 H 193 H Calcium 8.4 L Magnesium Ammonia Random Vancomycin PG Care Time/CCT Total # of Minutes Spent Total Time Spent with Patient: Total time spent is greater than 50% in coordination of care (as documented) at patient's floor/unit and/or counseling patient: Coding Level of Care Code 36562 SUB INP/OBS CARE 06/12MIN Diagnoses Acute hypoxemic respiratory failure J96.01 Multifocal pneumonia J18.9 Breast cancer, stage 4 C50.919 Metastases to the liver C78.7 Memory loss R41.3 Hypothyroidism E03.9 Atrial fibrillation I48.91 Diabetes mellitus, type 2 E11.9 Hx of cardiac pacemaker Z95.0 Gastroesophageal reflux disease, esophagitis presence not specified K21.9 Esophagitis presence: esophagitis presence not specified Status post gastric bypass for obesity Z98.84 MRSA (methicillin resistant staph aureus) culture positive Z22.322 Chronic headaches R51.9; G89.29 Stress-induced cardiomyopathy I51.81 Acute HFrEF (heart failure with reduced ejection fraction) I50.21 Pleural effusion J90 Time Spent (min) 25 (10) Gastroesophageal reflux disease Esophagitis presence: esophagitis presence not specified Qualified Code(s): K21.9 - Gastro-esophageal reflux disease without esophagitis
[2024-10-31 04:45] LABS: Hematocrit (blood only) 29.1 % (37.0-47.0); Hemoglobin 9.1 g/dl (12.0-16.0); Mean Corpuscular Hemoglobin 27.5 pg (25.0-34.0); Mean Corpuscular Volume 87.9 fL (80.0-100.0); Platelet Count 197 K/uL (130-400); RDW Standard Deviation 53.9 fL (36.4-46.3); Red Blood Count 3.31 M/uL (4.20-5.40); White Blood Count 12.56 K/ul (4.8-10.8)
[2024-10-31] MEDS ORDERED: Nursing to Pharmacy Communication SCH (05:00)
[2024-10-31 05:01] LABS: Anion Gap 9.0 (3-11); Blood Urea Nitrogen 13.0 mg/dl (6-23); Calcium 8.2 mg/dl (8.6-10.3); Carbon Dioxide 26.0 mmol/L (21-32); Chloride 100.0 mmol/L (98-107); Creatinine Clr Calc Pharmacy 66.0 ml/min; Glucose 131.0 mg/dl (70-99(Fasting)); Potassium 3.3 mmol/L (3.5-5.1); Sodium 135.0 mmol/L (136-145)
--- NOTE | 2024-10-31 09:42 | Pharmacy Report ---
Pharmacy PK ABX Note - Date of Service October 31, 2024 - Assessment and Plan Assessment 10/31: * Random vancomycin level this AM was 21.5 mcg/mL. This was a random level drawn ~8 hours after the completion of the previous dose. Therefore, level was expected to be on the higher side. Still predicted to achieve goal AUC/FERNANDO. 10/28: * Random vancomycin level this AM ~17 mcg/ml - current vancomycin regimen predicted to achieve goal AUC/FERNANDO. Provider wanting to extend out abxs for 7 days for total duration of therapy. Blood cultures negative, MRSA nasal swab was positive. 10/26: * 74 year old F receiving empiric vancomycin and Zosyn for treatment of possible CAP. Pertinent microbiologic data includes: Positive MRSA Nasal Swab, blood/urine cultures pending. * Pertinent PMH includes metastatic breast cancer (no chemotherapy >6 months) and T2DM. History of MDROs growing in urine (ESBL producing E.coli/K. pneumoniae). * Afebrile, leukocytosis improved overnight, renal function at/near baseline. Plan Vancomycin * Current regimen: 1250 mg IV every 18 hours * Random level obtained 10/31/24 resulted as 21.5 mcg/mL. This is predicted to achieve target AUC/FERNANDO of 400-600 mg/L.hr * Predicted AUC at steady state: 567 mg/L.hr * Continue 1250 mg IV every 18 hours * Therapy is to complete after doses on 11/01/24. Therefore, no further levels will be ordered. Zosyn * 4.5 g IV every 8 hours Pharmacy will continue to follow and will adjust dose/frequency as necessary. Thank you. Pharmacy has transitioned to AUC monitoring for vancomycin. AUC/FERNANDO is the preferred PK/PD target and is associated with decreased risk of nephrotoxicity compared to traditional trough targets.
--- NOTE | 2024-10-31 10:13 | XRay Report ---
Clinical History: Follow-up Technique: A frontal view of the chest was obtained Comparison is made to the prior examination dated 10/25/2024 Findings: There are slightly worsened multifocal interstitial and alveolar opacities bilaterally, likely due to pneumonia. The heart size is at the upper limit of normal. No definite pneumothorax is seen. There is an unchanged small left pleural effusion No fracture is noted. 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 There is a left shoulder arthroplasty. There is a left chest wall pacemaker device. There is a right chest wall port with its tip in the SVC Impression: 1. Suspected bilateral pneumonia 2. Small left pleural effusion ACT 112: Positive. There are findings on this exam that require communication between the performing entity and the patient following Patient Test Result Information Act ([place] ACT 112) guidelines. Electronically signed by Alex Herrera 10-31-2024 10:13 AM
--- NOTE | 2024-10-31 11:27 | Hospitalist Progress Note ---
Date of Service October 31, 2024 Assessment & Plan (1) Acute hypoxemic respiratory failure: (2) Multifocal pneumonia: (3) Breast cancer, stage 4: (4) Metastases to the liver: (5) Memory loss: (6) Hypothyroidism: (7) Atrial fibrillation: (8) Diabetes mellitus, type 2: (9) Hx of cardiac pacemaker: (10) Gastroesophageal reflux disease: (11) Status post gastric bypass for obesity: (12) MRSA (methicillin resistant staph aureus) culture positive: (13) Chronic headaches: (14) Stress-induced cardiomyopathy: (15) Acute HFrEF (heart failure with reduced ejection fraction): (16) Pleural effusion: Plan 74yo female with metastatic breast cancer (initial dx 2016 - localized L breast ca, with discovery of mets in 2019), afib on Eliquis, tachy-monica syndrome, DM2, hypothyroidism, anxiety she was hospitalized in 08/2024 for pneumonia. Since that admission she has been staying at [facility] for rehab but has made little progress with such. Presented to ED on 10/25/24 with dyspnea, hypoxic, tachycarda and found. Initial imaging with pulmonary edema, b/l effusions, and b/l pneumonia. her eliquis was held for thoracentesis, she's on IV diuretics, significant confusion, ammonia lab ordered, may need brain MRI to r/o metastasis overall plan she still has high WBC. however, oxygen status stable downgrade to easy to chew diet c/w zosyn and vancomycin, expect total course of 10-14 days confusion persisted, not oriented to year, month nor date limited ability to tolerate chemotherapy at this point no nacrotic given daughter concerned about her hx of drug use tramadol for pain #acute hypoxic respiratory failure - MRSA positive her repeat CXR show multifocal PNA suspect this is relate to microaspiration, speech evaluation downtrend to easy to chew diet. multifocal pneumonia, pleural effusion, volume overload giving her IV lasix, hold eliquis daughter is deferring thoracentesis, bridge her with lovenox she's on zosyn and vancomcyin c/w diuresis aspiration precaution ?? breast cancer with lymphagitic spread pleural effusion family is deferring thoracentesis seen by pulmonary pulmonary recommened ongoing diuresis #b/l pneumonia - -zosyn/vanco as above -plan for total course of 10-14 days #stage 4 breast cancer with mets to the liver - deconditoning. -follows with Dr De Luna, oncology -off chemo since early 2024 -CT a/p in August showed progressive liver mets -will obtain repeat CT of a/p she's need brain MRI w/wo contrast to r/o metastasis once her respiratory status stable prognosis poor -functional status at this time would preclude re-initiation of chemotherapy -check ammonia level in am due to the extent of the hepatic mets -cannot rule out bony mets to spine given her c/o back pain #acute HFrEF 2nd to suspected stress-induced cardiomyopathy - -based on echo findings this admission -alternatively the cardiomyopathy could be ischemic in etiology -not a candidate at this time for catheterization -cont lasix IV BID -seen by pulmonary on 10/29, they are deferring thoracentesis -daily BMPs -will ultimately need beta alec +/- Entresto + diuretics #abdominal pain/flank pain/back pain - -2nd to extensive liver mets, severe constipation, other factors -tramadol not helpful; has been on this medicine for quite some time -will ask palliative care to consult for assistance with pain management #opiate-induced constipation - -CT a/p today - r/o ileus, etc. -dulcolax/miralax (multiple doses) this evening -then needs maintenance with senna/colace/miralax -dulcolax suppos prn #atrial fibrillation on Eliquis - - diltiazem 360mg daily -relatively contraindicated with the depressed LV function on echo this admission -follows with Dr Ramires; his notes state she was on meto succ in the past and it was stopped -ideally would change CCB to beta alec but defer on that today -Eliquis is on hold due to need for thoracentesis, etc #T2DM - -pharmacy providing glycemic oversight - appreciate their assistance -cont basal-bolus insulins -last a1c was 8.4% in September #hypothyroidism --leave synthroid dose as is; simply repeat TSH in about a month #chronic headaches/memory loss/confusion - -start with CT head likely need brain MRI w/wo contrast #b/l pleural effusions - -see discussion above -IR consulted for consideration of left-sided thoracentesis tomorrow #GERD - -cont PPI twice daily correspondence sent to [facility] Palliative care team with details re: consultation Admission and Anticipated Discharge Date Admission Date: October 25, 2024 Subjective she's still has high WBC, repeat CXR show multifocal PNA suspect component of aspiration, downgrade her to easy to chew diet still disoriented off oxycodone, percocet daughter mentioned long standing nacrotic use disorder tramadol for pain may give low dose gabapentin Physical Exam Physical Exam: VITALS: Reviewed. WEIGHT/BMI reviewed. GEN: frail; chronically ill appearing -Head: NC/AT; NECK: limited range of motion, painful to palpation CV: RRR, no m/r/g. LUNGS: on oxygen; no accessory muscle use ABD: Soft, NT/ND, NBS, no masses or organomegaly. EXT: muscle wasting NEURO: not oriented to month, place nor year. Results & Data Results & Data Vital Signs (Past 12 Hours) Vital Signs Temp Pulse Pulse Resp BP Pulse Ox O2 Del Method 10/31/24 09:00 60 10/31/24 09:00 Nasal Cannula 10/31/24 07:30 36.9 C 60 17 160/81 H 91 Room Air 10/31/24 04:54 87 L Nasal Cannula 10/31/24 04:18 36.8 C 61 18 168/71 H 93 Nasal Cannula 10/31/24 04:18 74 L Nasal Cannula 10/31/24 04:08 96 Nasal Cannula 10/31/24 03:55 65 L Room Air 10/31/24 00:46 80 O2 Flow Rate 10/31/24 09:00 10/31/24 09:00 1 10/31/24 07:30 10/31/24 04:54 4 10/31/24 04:18 3 10/31/24 04:18 2 10/31/24 04:08 3 10/31/24 03:55 10/31/24 00:46 PG Care Time/CCT Total # of Minutes Spent Total Time Spent with Patient: Total time spent is greater than 50% in coordination of care (as documented) at patient's floor/unit and/or counseling patient: Coding Level of Care Code 77459 SUB INP/OBS CARE 2/35MIN Diagnoses Acute hypoxemic respiratory failure J96.01 Multifocal pneumonia J18.9 Breast cancer, stage 4 C50.919 Metastases to the liver C78.7 Memory loss R41.3 Hypothyroidism E03.9 Atrial fibrillation I48.91 Diabetes mellitus, type 2 E11.9 Hx of cardiac pacemaker Z95.0 Gastroesophageal reflux disease, esophagitis presence not specified K21.9 Esophagitis presence: esophagitis presence not specified Status post gastric bypass for obesity Z98.84 MRSA (methicillin resistant staph aureus) culture positive Z22.322 Chronic headaches R51.9; G89.29 Stress-induced cardiomyopathy I51.81 Acute HFrEF (heart failure with reduced ejection fraction) I50.21 Pleural effusion J90 Time Spent (min) 35 (10) Gastroesophageal reflux disease Esophagitis presence: esophagitis presence not specified Qualified Code(s): K21.9 - Gastro-esophageal reflux disease without esophagitis
[2024-10-31] MEDS ORDERED: MEROPENEM 500 MG in SYRINGE 0 ML IV SCH (11:30)
--- NOTE | 2024-10-31 13:31 | Pulmonology Progress Note ---
Date of Service October 31, 2024 Assessment & Plan (1) Acute HFrEF (heart failure with reduced ejection fraction): (2) Multifocal pneumonia: (3) Acute hypoxemic respiratory failure: (4) Metastases to the liver: (5) Pleural effusion: (6) Pulmonary hypertension: Plan CT chest 10/26/2024 personally reviewed: Diffuse alveolar opacities appreciated bilaterally upper and lower lobe Compressive atelectasis of the left lower lobe Moderate bilateral pleural effusion Cardiomegaly Minimal mediastinal and hilar lymphadenopathy 2D echo 10/26/2024: EF 35-40%, RV normal in size and function, RVSP 40-50 mmHg -- Acute hypoxic respiratory failure Multifactorial Respiratory BioFire negative for everything Nasal MRSA positive BNP 1519 --Bilateral pleural effusion Likely secondary to cardiac etiology I discussed the findings with the patient's daughter on 10/29/2024 in the evening, she and the patient would would like to be conservative and will try to avoid any invasive procedures unless absolutely necessary --Pulmonary hypertension Likely type II Continue with diuretics --[id number] smoking history Recommend outpatient pulmonary function test when she is adequately diuresed --A-fib On Eliquis Eliquis has been on hold since 10/26/2024 Plan: In/out: Positive to 30, urine output 1125, Sage catheter placed 10/30/2024 Please make note that the patient had pure wick and the urine output is not accurate in the beginning Chest x-ray from today on personal review still shows left-sided pleural effusion, right-sided pleural effusion seems to be decreasing in size Continue with Lasix 40 mg twice daily to keep the patient negative balance of at least -1-1.5 L in 24 hours Continue with antibiotics BiPAP nightly and as needed shortness of will be helpful to open of the lungs Plan discussed with primary team as well as RN at bedside Please note the above document was generated using voice recognition software. It may contain grammatical, syntax or spelling errors.Any formal questions or concerns about the content, text or information contained within the body of this dictation should be directly addressed to the provider for clarification. Admission and Anticipated Discharge Date Admission Date: October 25, 2024 Subjective Patient seen and examined at bedside. No acute distress, no adverse events overnight She was saturating 97-98% on room air. She did use her BiPAP overnight for approximately 3-4 hours Has been diuresing well, has a Sage catheter now Fair appetite No nausea or vomiting Review of Systems 2 Review of Systems: All systems reviewed & are unremarkable except as noted in Subjective Physical Exam 2 Physical Exam: Constitutional: No acute distress HEENT: EOMI, PERRLA Respiratory system: Decreased air entry bilaterally, more decreased on the left, no wheeze, no rhonchi, positive crackles bilaterally CVS: S1-S2 positive, positive 3 out of 8 systolic murmur appreciated best at apex Abdomen: Soft, nontender, nondistended, positive bowel sounds x4 Extremities: +2 pulses bilaterally radialis/ dorsalis pedis, no cyanosis, +1 pitting edema bilateral lower extremity Neuro: Awake alert oriented x3 Psych: Normal mood and affect G/U: Positive Sage Skin: no rashes, warm and dry Lymphatic: no cervical or axillary lymphadenopathy Results & Data Results & Data Vital Signs (Past 12 Hours) Vital Signs Temp Pulse Pulse Resp BP Pulse Ox O2 Del Method 10/31/24 12:22 36.9 C 60 17 136/72 97 Room Air 10/31/24 09:00 60 10/31/24 09:00 Nasal Cannula 10/31/24 07:30 36.9 C 60 17 160/81 H 91 Room Air 10/31/24 04:54 87 L Nasal Cannula 10/31/24 04:18 36.8 C 61 18 168/71 H 93 Nasal Cannula 10/31/24 04:18 74 L Nasal Cannula 10/31/24 04:08 96 Nasal Cannula 10/31/24 03:55 65 L Room Air O2 Flow Rate 10/31/24 12:22 10/31/24 09:00 10/31/24 09:00 1 10/31/24 07:30 10/31/24 04:54 4 10/31/24 04:18 3 10/31/24 04:18 2 10/31/24 04:08 3 10/31/24 03:55 Laboratory Results 10/31/24 04:20 10/31/24 04:20 PG Care Time/CCT Total # of Minutes Spent Total Time Spent with Patient: Total time spent is greater than 50% in coordination of care (as documented) at patient's floor/unit and/or counseling patient: Coding Level of Care Code 82226 SUB INP/OBS CARE 2/35MIN Diagnoses Acute HFrEF (heart failure with reduced ejection fraction) I50.21 Multifocal pneumonia J18.9 Acute hypoxemic respiratory failure J96.01 Metastases to the liver C78.7 Pleural effusion J90 Pulmonary hypertension I27.20
[2024-11-01 05:35] LABS: Hematocrit (blood only) 27.9 % (37.0-47.0); Hemoglobin 8.7 g/dl (12.0-16.0); Mean Corpuscular Hemoglobin 27.3 pg (25.0-34.0); Mean Corpuscular Volume 87.5 fL (80.0-100.0); Platelet Count 180 K/uL (130-400); RDW Standard Deviation 52.7 fL (36.4-46.3); Red Blood Count 3.19 M/uL (4.20-5.40); White Blood Count 10.10 K/ul (4.8-10.8)
[2024-11-01 05:51] LABS: Anion Gap 7.0 (3-11); Blood Urea Nitrogen 12.0 mg/dl (6-23); Calcium 8.1 mg/dl (8.6-10.3); Carbon Dioxide 30.0 mmol/L (21-32); Chloride 103.0 mmol/L (98-107); Creatinine Clr Calc Pharmacy 51.4 ml/min; Glucose 118.0 mg/dl (70-99(Fasting)); Potassium 3.0 mmol/L (3.5-5.1); Sodium 140.0 mmol/L (136-145)
[2024-11-01 08:55] LABS: Magnesium 1.6 mg/dl (1.7-2.4)
--- NOTE | 2024-11-01 09:55 | Pulmonology Progress Note ---
Date of Service November 01, 2024 Assessment & Plan (1) Acute HFrEF (heart failure with reduced ejection fraction): (2) Multifocal pneumonia: (3) Acute hypoxemic respiratory failure: (4) Metastases to the liver: (5) Pulmonary hypertension: Plan CT chest 10/26/2024 personally reviewed: Diffuse alveolar opacities appreciated bilaterally upper and lower lobe Compressive atelectasis of the left lower lobe Moderate bilateral pleural effusion Cardiomegaly Minimal mediastinal and hilar lymphadenopathy 2D echo 10/26/2024: EF 35-40%, RV normal in size and function, RVSP 40-50 mmHg CXR 10/31/2024: Improvement of left pleural effusion in comparison to 10/25/2024 -- Acute hypoxic respiratory failure Multifactorial Respiratory BioFire negative for everything Nasal MRSA positive BNP 1519 --Bilateral pleural effusion Likely secondary to cardiac etiology Repeat CXR plan for 11/02/2024. Dr Hummel discussed the findings with the patient's daughter on 10/29/2024 in the evening, she and the patient would would like to be conservative and will try to avoid any invasive procedures unless absolutely necessary --Pulmonary hypertension Likely type II Continue with diuretics Scheduled lasix 20mg bid. -325ml this am. --[id number] smoking history Recommend outpatient pulmonary function test when she is adequately diuresed --A-fib On Eliquis Eliquis has been on hold since 10/26/2024 Admission and Anticipated Discharge Date Admission Date: October 25, 2024 Supervising Physician Co-Signing Physician Notes I saw and evaluated the patient with HUANG Castillo, and agree with findings and plan as documented in the note. Patient seen and examined at bedside. No acute distress, no adverse events overnight She did not use BiPAP overnight She was emotional during this visit. She was asking to go home She was saturating 94% on 2 L nasal cannula. Denies any chest pain Has been diuresing well Appetite is fair, no nausea or vomiting Constitutional: No acute distress HEENT: EOMI, PERRLA Respiratory system: Decreased air entry bilaterally, more decreased on the left, no wheeze, no rhonchi, positive crackles bilaterally CVS: S1-S2 positive, positive 3 out of 6 systolic murmur appreciated best at apex Abdomen: Soft, nontender, nondistended, positive bowel sounds x4 Extremities: +2 pulses bilaterally radialis/ dorsalis pedis, no cyanosis, +1 pitting edema bilateral lower extremity Neuro: Awake alert oriented to self and place Psych: Normal mood and affect G/U: Positive Sage Plan: In/out: Negative 325ml this am, urine output 1375, Sage catheter placed 10/30/2024 Please make note that the patient had pure wick and the urine output is not accurate in the beginning Will repeat chest x-ray tomorrow in the morning Continue with Lasix 40 mg twice daily to keep the patient negative balance of at least -1-1.5 L in 24 hours Continue with antibiotics BiPAP nightly and as needed shortness of will be helpful to open of the lungs Plan discussed with primary team as well as RN at bedside Please note the above document was generated using voice recognition software. It may contain grammatical, syntax or spelling errors.Any formal questions or concerns about the content, text or information contained within the body of this dictation should be directly addressed to the provider for clarification. Subjective "I want to go home." "I am worried I won't be able to go home." Patient SpO2 95% on 2L nasal cannula this am. Wore Bipap overnight for 4 hours. Diuresed with 40mg Lasix bid and negative 325 this am. WBC 10 down from 12. Plan for family meeting/palliative care discussions today. Review of Systems 2 Review of Systems: All systems reviewed & are unremarkable except as noted in Subjective Physical Exam 2 Physical Exam: VITALS: Reviewed. WEIGHT/BMI reviewed. GEN: Chronically ill appearing woman, tearful. PSYCH: AOx3, tearful, poor short term memory/recall. HEENT: NC/AT NECK: Supple, with no masses. no lymphadenopathy. CV: RRR, no m/r/g. LUNGS: Clear in b/l upper lobes, diminished in bases L>R, chest rise symmetrical, breathing nonlabored. SpO2 95% on 2L NC. ABD: Soft, NT/ND, NBS, no masses or organomegaly. : Sage draining yellow clear urine. SKIN: Warm, well perfused. No skin rashes or abnormal lesions. MSK: No deformities, Normal gait. EXT: No clubbing, cyanosis, or edema. NEURO: AOx3, follows commands, face symmetric, speech clear. Results & Data Results & Data Vital Signs (Past 12 Hours) Vital Signs Temp Pulse Pulse Pulse Resp BP Pulse Ox 11/01/24 08:00 36.8 C 62 18 149/61 H 98 11/01/24 04:24 36.6 C 60 17 159/74 H 98 11/01/24 00:19 60 10/31/24 23:43 36.7 C 61 17 149/71 H 98 10/31/24 22:35 60 24 99 O2 Del Method O2 Flow Rate 11/01/24 08:00 Nasal Cannula 2 11/01/24 04:24 Nasal Cannula 2 11/01/24 00:19 10/31/24 23:43 CPAP 10/31/24 22:35 3 Laboratory Results 11/01/24 04:43 11/01/24 04:43 Abnormal Lab Results 10/31/24 10/31/24 10/31/24 11:48 16:45 20:56 WBC RBC Hgb Hct MCV MCH MCHC RDW Std Deviation RDW Coeff of Thompson Plt Count MPV Sodium Potassium Chloride Carbon Dioxide Anion Gap BUN Creatinine Est Cr Clr Drug Dosing eGFR BUN/Creatinine Ratio Glucose POC Glucose 156 H 145 H 188 H Calcium Phosphorus Magnesium 11/01/24 04:43 WBC 10.10 RBC 3.19 L Hgb 8.7 L Hct 27.9 L MCV 87.5 MCH 27.3 MCHC 31.2 L RDW Std Deviation 52.7 H RDW Coeff of Thompson 16.7 H Plt Count 180 MPV 11.9 Sodium 140 Potassium 3.0 L Chloride 103 Carbon Dioxide 30 Anion Gap 7 BUN 12 Creatinine 0.77 Est Cr Clr Drug Dosing 51.4 eGFR 79.90 BUN/Creatinine Ratio 15.6 Glucose 118 H POC Glucose Calcium 8.1 L Phosphorus 3.8 Magnesium 1.6 L Diagnostic Findings Chest X-Ray 10/31/24 07:00 Clinical History: Follow-up Technique: A frontal view of the chest was obtained Comparison is made to the prior examination dated 10/25/2024 Findings: There are slightly worsened multifocal interstitial and alveolar opacities bilaterally, likely due to pneumonia. The heart size is at the upper limit of normal. No definite pneumothorax is seen. There is an unchanged small left pleural effusion No fracture is noted. 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 There is a left shoulder arthroplasty. There is a left chest wall pacemaker device. There is a right chest wall port with its tip in the SVC Impression: 1. Suspected bilateral pneumonia 2. Small left pleural effusion ACT 112: Positive. There are findings on this exam that require communication between the performing entity and the patient following Patient Test Result Information Act ([place] ACT 112) guidelines. Electronically signed by Alex Herrera 10-31-2024 10:13 AM PG Care Time/CCT Total # of Minutes Spent Total Time Spent with Patient: Total time spent is greater than 50% in coordination of care (as documented) at patient's floor/unit and/or counseling patient: Coding Level of Care Code 34066 SUB INP/OBS CARE 2/35MIN Diagnoses Acute HFrEF (heart failure with reduced ejection fraction) I50.21 Multifocal pneumonia J18.9 Acute hypoxemic respiratory failure J96.01 Metastases to the liver C78.7 Pulmonary hypertension I27.20
[2024-11-01] MEDS ORDERED: ONDANSETRON 4 MG OD TAB SL PRN (17:09)
[2024-11-01] MEDS ORDERED: GLYCOPYRROLATE 0.2 MG/ML VIAL IV PRN (17:09)
--- NOTE | 2024-11-01 17:34 | Hospitalist Progress Note ---
Date of Service November 01, 2024 Assessment & Plan (1) Acute hypoxemic respiratory failure: (2) Multifocal pneumonia: (3) Breast cancer, stage 4: (4) Metastases to the liver: (5) Memory loss: (6) Hypothyroidism: (7) Atrial fibrillation: (8) Diabetes mellitus, type 2: (9) Hx of cardiac pacemaker: (10) Gastroesophageal reflux disease: (11) Status post gastric bypass for obesity: (12) MRSA (methicillin resistant staph aureus) culture positive: (13) Chronic headaches: (14) Stress-induced cardiomyopathy: (15) Acute HFrEF (heart failure with reduced ejection fraction): (16) Pleural effusion: Plan 74yo female with metastatic breast cancer (initial dx 2015 - localized L breast ca, with discovery of mets in 2019), afib on Eliquis, tachy-monica syndrome, DM2, hypothyroidism, anxiety she was hospitalized in 08/2024 for pneumonia. Since that admission she has been staying at [facility] for rehab but has made little progress with such. Presented to ED on 10/25/24 with dyspnea, hypoxic, tachycarda and found. Initial imaging with pulmonary edema, b/l effusions, and b/l pneumonia. her eliquis was held for thoracentesis, she's on IV diuretics, significant confusion, ammonia lab ordered, may need brain MRI to r/o metastasis overall plan spoke with daughters at bedside no intubation, no chest compression but ongoing IV diuretics, antibiotics for PNA zosyn, family cannot provide hospice care at home they are looking at another facility daughter concerned history of nacrotic use started on lyrica BID for pain control #acute hypoxic respiratory failure, pleural effusion multifocal pneumonia repeat CXR (10/31) show multifocal PNA suspect this is relate to microaspiration, speech eval provide easy to chew diet. resuming eliquis given now family want aggressive measure. she's on zosyn and vancomcyin ?? breast cancer with lymphagitic spread pain control lyrica 50mg BID low dose morphine 2mg IV PRN started 11/01 evening pleural effusion family is deferring thoracentesis seen by pulmonary pulmonary recommenced ongoing diuresis she's on IV lasix 40mg BID #b/l pneumonia - -zosyn/vanco as above -plan for total course of 10-14 days #stage 4 breast cancer with mets to the liver - deconditioning. -follows with Dr De Luna, oncology -off chemo since early 2024 -CT a/p in August showed progressive liver mets -will obtain repeat CT of a/p does not believe she's can tolerate chemotherapy given anorexia, marinol 5mg TID can increased to 10mg TID if needed #acute HFrEF 2nd to suspected stress-induced cardiomyopathy - -based on echo findings this admission -alternatively the cardiomyopathy could be ischemic in etiology -not a candidate at this time for catheterization -cont lasix 40 IV BID -seen by pulmonary on 10/29, they are deferring thoracentesis, -will ultimately need beta alec +/- Entresto + diuretics #abdominal pain/flank pain/back pain - -2nd to extensive liver mets, severe constipation, other factors -tramadol not helpful; has been on this medicine for quite some time -will ask palliative care to consult for assistance with pain management #opiate-induced constipation - -CT a/p today - r/o ileus, etc. -dulcolax/miralax (multiple doses) this evening -then needs maintenance with senna/colace/miralax -dulcolax suppos prn #atrial fibrillation on Eliquis - - diltiazem 360mg daily -relatively contraindicated with the depressed LV function on echo this admission -follows with Dr Ramires; his notes state she was on meto succ in the past and it was stopped -ideally would change CCB to beta alec but defer on that today -Eliquis is on hold due to need for thoracentesis, etc #T2DM - -pharmacy providing glycemic oversight - appreciate their assistance -cont basal-bolus insulins -last a1c was 8.4% in September #hypothyroidism --leave synthroid dose as is; simply repeat TSH in about a month #chronic headaches/memory loss/confusion - -start with CT head likely need brain MRI w/wo contrast #b/l pleural effusions - -see discussion above -IR consulted for consideration of left-sided thoracentesis tomorrow #GERD - -cont PPI twice daily correspondence sent to [facility] [place] Palliative care team with details re: consultation Admission and Anticipated Discharge Date Admission Date: October 25, 2024 Subjective prognosis poor. and daughters agreeable for starting med for pain control low dose lyrica. no intubation, no chest compression family requested ongoing antibiotics, diuretics but they begin to understand patient has limited lifespan she's has abdominal pain, back pain and flank pain started on low dose morphine 2mg IV Physical Exam Physical Exam: General: chronically ill HEENT:AT/NC; non-icterus Heart: normal s1; s2; neuro: not oriented to year, place nor month lung: congested breath sound; on 2 liter oxygen abdomen: soft to touch Results & Data Results & Data Vital Signs (Past 12 Hours) Vital Signs Temp Pulse Resp BP Pulse Ox O2 Del Method O2 Flow Rate 11/01/24 17:02 36.8 C 87 19 140/71 97 Nasal Cannula 2 11/01/24 11:30 36.7 C 79 18 151/71 H 96 Nasal Cannula 2 11/01/24 08:00 Nasal Cannula 2 11/01/24 08:00 36.8 C 62 18 149/61 H 98 Nasal Cannula 2 Laboratory Results Laboratory Results - last 72 hr 10/29/24 10/30/24 10/30/24 20:47 05:48 07:54 WBC 14.06 H RBC 3.47 L Hgb 9.5 L Hct 31.0 L MCV 89.3 MCH 27.4 MCHC 30.6 L RDW Std Deviation 54.2 H RDW Coeff of Thompson 17.1 H Plt Count 204 MPV 11.5 Absolute Nucleated RBC 0.02 Nucleated RBC % (auto) 0.1 Sodium 137 Potassium 3.7 Chloride 101 Carbon Dioxide 27 Anion Gap 9 BUN 14 Creatinine 0.71 0.65 Est Cr Clr Drug Dosing 60.4 66.0 eGFR 88.06 91.19 BUN/Creatinine Ratio 21.5 H Glucose 161 H POC Glucose 192 H Calcium 8.4 L Phosphorus Magnesium Random Vancomycin 10/30/24 10/30/24 10/30/24 08:04 11:53 17:00 WBC RBC Hgb Hct MCV MCH MCHC RDW Std Deviation RDW Coeff of Thompson Plt Count MPV Absolute Nucleated RBC Nucleated RBC % (auto) Sodium Potassium Chloride Carbon Dioxide Anion Gap BUN Creatinine Est Cr Clr Drug Dosing eGFR BUN/Creatinine Ratio Glucose POC Glucose 161 H 193 H 203 H Calcium Phosphorus Magnesium Random Vancomycin 10/30/24 10/31/24 10/31/24 21:00 04:20 07:33 WBC 12.56 H RBC 3.31 L Hgb 9.1 L Hct 29.1 L MCV 87.9 MCH 27.5 MCHC 31.3 L RDW Std Deviation 53.9 H RDW Coeff of Thompson 16.9 H Plt Count 197 MPV 11.3 Absolute Nucleated RBC Nucleated RBC % (auto) Sodium 135 L Potassium 3.3 L Chloride 100 Carbon Dioxide 26 Anion Gap 9 BUN 13 Creatinine 0.65 Est Cr Clr Drug Dosing 66.0 eGFR 91.19 BUN/Creatinine Ratio 20.0 Glucose 131 H POC Glucose 160 H 140 H Calcium 8.2 L Phosphorus Magnesium Random Vancomycin 21.5 H 10/31/24 10/31/24 10/31/24 11:48 16:45 20:56 WBC RBC Hgb Hct MCV MCH MCHC RDW Std Deviation RDW Coeff of Thompson Plt Count MPV Absolute Nucleated RBC Nucleated RBC % (auto) Sodium Potassium Chloride Carbon Dioxide Anion Gap BUN Creatinine Est Cr Clr Drug Dosing eGFR BUN/Creatinine Ratio Glucose POC Glucose 156 H 145 H 188 H Calcium Phosphorus Magnesium Random Vancomycin 11/01/24 11/01/24 11/01/24 04:43 11:17 16:24 WBC 10.10 RBC 3.19 L Hgb 8.7 L Hct 27.9 L MCV 87.5 MCH 27.3 MCHC 31.2 L RDW Std Deviation 52.7 H RDW Coeff of Thompson 16.7 H Plt Count 180 MPV 11.9 Absolute Nucleated RBC Nucleated RBC % (auto) Sodium 140 Potassium 3.0 L Chloride 103 Carbon Dioxide 30 Anion Gap 7 BUN 12 Creatinine 0.77 Est Cr Clr Drug Dosing 51.4 eGFR 79.90 BUN/Creatinine Ratio 15.6 Glucose 118 H POC Glucose 167 H 124 H Calcium 8.1 L Phosphorus 3.8 Magnesium 1.6 L Random Vancomycin Medications Administered Current Inpatient Medications Albuterol (Albuterol Hfa 8 Gm Inhaler) 2 puffs INH Q4H PRN PRN Reason: Shortness Of Breath Or Wheezing Stop: 11/24/24 23:04 Last Admin: 10/31/24 19:25 Dose: 2 puffs Bisacodyl (Bisacodyl 10 Mg Supp) 10 mg DE DAILY PRN PRN Reason: Constipation =-2ND LINE Stop: 11/24/24 23:04 Buspirone HCl (Buspirone 5 Mg Tab) 5 mg PO BID [facility] Stop: 11/26/24 10:54 Last Admin: 11/01/24 08:28 Dose: 5 mg Diltiazem HCl (Diltiazem Hcl 180 Mg Capcr) 360 mg PO QAM [facility] Stop: 11/25/24 08:59 Last Admin: 11/01/24 08:29 Dose: 360 mg Dronabinol (Dronabinol 2.5 Mg Cap) 5 mg PO TID [facility] Stop: 11/29/24 20:59 Last Admin: 11/01/24 13:15 Dose: 5 mg Duloxetine HCl (Duloxetine Hcl 60 Mg Cap) 120 mg PO DAILY [facility] Stop: 11/25/24 08:59 Last Admin: 11/01/24 08:28 Dose: 120 mg Furosemide (Furosemide Inj 20 Mg/2 Ml Vial) 40 mg IV BID17 [facility] Stop: 11/28/24 08:59 Last Admin: 11/01/24 16:33 Dose: 40 mg Glycopyrrolate (Glycopyrrolate 0.2 Mg/Ml Vial) 0.4 mg IV Q4H PRN PRN Reason: Rattling Secretions or Pulm Congestion Stop: 12/01/24 17:08 Piperacillin Sod/Tazobactam Sod (Zosyn) 4.5 gm in 100 mls @ 25 mls/hr IV Q8H [facility]; Protocol Stop: 11/04/24 23:59 Last Infusion: 11/01/24 16:13 Dose: Infused Vancomycin HCl 1,250 mg/ (Sodium Chloride) 275 mls @ 200 mls/hr IV Q18H [facility] Stop: 11/04/24 23:59 Last Infusion: 11/01/24 07:20 Dose: Infused Thiamine HCl 100 mg/ Syringe 10 mls @ 2 mls/min IV QAM [facility] Stop: 11/28/24 08:59 Last Admin: 11/01/24 08:38 Dose: 2 mls/min Insulin Glargine (Lantus Per Unit Charge) 6 units SQ DAILY [facility] Stop: 11/27/24 08:59 Last Admin: 11/01/24 08:39 Dose: 6 units Levothyroxine Sodium (Levothyroxine Sodium 75 Mcg Tablet) 75 mcg PO DAILYBB [facility] Stop: 11/25/24 06:29 Last Admin: 11/01/24 06:06 Dose: 75 mcg Lidocaine (Lidocaine 5% Oint 30 Gm Tube) 1 appln EXT BID [facility] Stop: 11/29/24 09:14 Last Admin: 11/01/24 08:31 Dose: 1 appln Lorazepam (Lorazepam 2 Mg/1 Ml Vial) 0.5 mg IV Q4H PRN PRN Reason: Anxiety/Agitation Stop: 12/01/24 17:08 Magnesium Hydroxide (Magnesium Hydroxide Susp 30 Ml Udc) 30 ml PO DAILY PRN PRN Reason: Constipation-FIRST Line Stop: 11/24/24 23:04 Magnesium Oxide (Magnesium Oxide 400 Mg Tab) 400 mg PO QAM [facility] Stop: 11/25/24 08:59 Last Admin: 11/01/24 08:28 Dose: 400 mg Melatonin (Melatonin 3 Mg Tab) 9 mg PO HS PRN PRN Reason: Sleep Stop: 11/24/24 23:04 Last Admin: 10/31/24 20:08 Dose: 9 mg Miscellaneous Information (Vancomycin Consult Active) 1 each N/A UD PRN PRN Reason: Consult Stop: 11/24/24 23:04 Morphine Sulfate (Morphine Sulfate 2 Mg/Ml Carp) 2 mg IV Q30M PRN PRN Reason: Pain or Respiratory Distress Stop: 11/15/24 17:08 Multi-Ingredient Mouthwash/Gargle (First - Mouthwash Blm 5 Ml Udp) 5 ml PO TID [facility] Stop: 11/29/24 09:29 Last Admin: 11/01/24 13:15 Dose: 5 ml Multivitamins (Multivitamin Tab) 1 tab PO QAM [facility] Stop: 11/25/24 08:59 Last Admin: 11/01/24 08:28 Dose: 1 tab Nystatin (Nystatin Susp 500,000 U/5 Ml Udc) 10 ml PO TID [facility] Stop: 11/09/24 08:59 Last Admin: 11/01/24 13:15 Dose: 10 ml Olopatadine HCl (Olopatadine Hcl 37 Drops/2.5 Ml Drops) 1 drops OP DAILY PRN PRN Reason: DRY EYES Stop: 11/27/24 08:59 Ondansetron HCl (Ondansetron Inj 2 Mg/Ml 2 Ml Vial) 4 mg IV Q4H PRN PRN Reason: Nausea &/or Vomiting Stop: 12/01/24 17:08 Ondansetron HCl (Ondansetron 4 Mg Od Tab) 4 mg SL Q4H PRN PRN Reason: Nausea &/or Vomiting Stop: 12/01/24 17:08 Pantoprazole Sodium (Pantoprazole 40 Mg Tab) 40 mg PO BID [facility] Stop: 11/25/24 20:59 Last Admin: 11/01/24 08:28 Dose: 40 mg Potassium Chloride (Potassium Chloride Crtab 20 Meq Tabcr) 20 meq PO BID [facility] Stop: 11/25/24 08:59 Last Admin: 11/01/24 08:38 Dose: 20 meq Pregabalin (Pregabalin 25 Mg Cap) 25 mg PO BID [facility] Stop: 12/01/24 20:59 Rifaximin (Rifaximin 550 Mg Tablet) 550 mg PO BID [facility] Stop: 11/28/24 20:59 Last Admin: 11/01/24 08:28 Dose: 550 mg Senna/Docusate Sodium (Docusate Sodium/Senna 50/8.6mg Tab) 1 tab PO BID [facility] Stop: 11/25/24 08:59 Last Admin: 11/01/24 08:04 Dose: Not Given Sodium Biphosphate/Sodium Phosphate (Sod Phosphate/Sod Biphosphate Enema 132 Ml Btl) 118 ml DE DAILY PRN PRN Reason: Constipation-fourth choice Stop: 11/24/24 23:04 Thiamine HCl (Thiamine Hcl 100 Mg Tab) 100 mg PO QAM [facility] Stop: 11/27/24 08:59 Last Admin: 10/29/24 07:54 Dose: 100 mg Tramadol HCl (Tramadol Hcl 50 Mg Tablet) 100 mg PO Q6H PRN PRN Reason: Pain Stop: 11/29/24 14:04 Last Admin: 11/01/24 16:36 Dose: 100 mg PG Care Time/CCT Total # of Minutes Spent Total Time Spent with Patient: Total time spent is greater than 50% in coordination of care (as documented) at patient's floor/unit and/or counseling patient: Coding Level of Care Code 34272 SUB INP/OBS CARE 2/35MIN Diagnoses Acute hypoxemic respiratory failure J96.01 Multifocal pneumonia J18.9 Breast cancer, stage 4 C50.919 Metastases to the liver C78.7 Memory loss R41.3 Hypothyroidism E03.9 Atrial fibrillation I48.91 Diabetes mellitus, type 2 E11.9 Hx of cardiac pacemaker Z95.0 Gastroesophageal reflux disease, esophagitis presence not specified K21.9 Esophagitis presence: esophagitis presence not specified Status post gastric bypass for obesity Z98.84 MRSA (methicillin resistant staph aureus) culture positive Z22.322 Chronic headaches R51.9; G89.29 Stress-induced cardiomyopathy I51.81 Acute HFrEF (heart failure with reduced ejection fraction) I50.21 Pleural effusion J90 Time Spent (min) 35 (10) Gastroesophageal reflux disease Esophagitis presence: esophagitis presence not specified Qualified Code(s): K21.9 - Gastro-esophageal reflux disease without esophagitis
[2024-11-01] MEDS: PREGABALIN 25 MG CAP PO SCH (21:54)
--- NOTE | 2024-11-02 08:04 | XRay Report ---
EXAM: XR chest 1V portable CLINICAL HISTORY: f/u TECHNIQUE: Radiograph of chest was acquired. 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 No acute osseous abnormality. Left shoulder arthroplasty status. IMPRESSION: Right chest port insitu with tip seen at SVC and right atrium junction Cardiomegaly - unchanged Cardiac pacemaker insitu with leads noted in right atrium and ventricle Ill defined haziness in bilateral lung colin - likely pulmonary congestion No new findings. . Electronically signed by Lincoln Addison 11-02-2024 08:03 AM
--- NOTE | 2024-11-02 08:15 | Pulmonology Progress Note ---
Date of Service November 02, 2024 Assessment & Plan (1) Acute HFrEF (heart failure with reduced ejection fraction): (2) Multifocal pneumonia: (3) Acute hypoxemic respiratory failure: (4) Metastases to the liver: (5) Pulmonary hypertension: Plan CT chest 10/26/2024 personally reviewed: Diffuse alveolar opacities appreciated bilaterally upper and lower lobe Compressive atelectasis of the left lower lobe Moderate bilateral pleural effusion Cardiomegaly Minimal mediastinal and hilar lymphadenopathy 2D echo 10/26/2024: EF 35-40%, RV normal in size and function, RVSP 40-50 mmHg CXR 10/31/2024: Improvement of left pleural effusion in comparison to 10/25/2024 CXR 11/02/2024: stable left pleural effusion with haziness bilaterally L>R concerning for pulmonary vascular congestion. -- Acute hypoxic respiratory failure Multifactorial; improving Weaned to room air this am. Respiratory BioFire negative for everything Nasal MRSA positive BNP 1519 --Bilateral pleural effusion Likely secondary to cardiac etiology Repeat CXR 11/02/2024 stable left pleural effusion with haziness bilaterally L>R concerning for pulmonary vascular congestion. Dr Hummel discussed the findings with the patient's daughter on 10/29/2024 in the evening, she and the patient would would like to be conservative and will try to avoid any invasive procedures unless absolutely necessary --Pulmonary hypertension Likely type II Continue with diuretics Scheduled lasix 20mg bid. -825ml this am. Creatinine stable continue with diuresis --[id number] smoking history Recommend outpatient pulmonary function test when she is adequately diuresed --A-fib On Eliquis Plan to restart Eliquis per Hospitalist. Palliative care consulted for goals of care discussions. Continue diuresis Okay to restart Eliquis as family would prefer conservative management of pleural effusion Admission and Anticipated Discharge Date Admission Date: October 25, 2024 Supervising Physician Co-Signing Physician Notes I saw and evaluated the patient with HUANG Castillo, and agree with findings and plan as documented in the note. Patient seen and examined at bedside. No acute distress, no adverse events overnight Patient was saturating 98-99% on 1 L nasal cannula. We discontinued the oxygen. No abdominal pain, no nausea or vomiting Appetite is fair. Constitutional: No acute distress HEENT: EOMI, PERRLA Respiratory system: Decreased air entry bilaterally, more decreased on the left, no wheeze, no rhonchi, positive crackles bilaterally anteriorly and posteriorly CVS: S1-S2 positive, positive 3 out of 6 systolic murmur appreciated best at apex Abdomen: Soft, nontender, nondistended, positive bowel sounds x4 Extremities: +2 pulses bilaterally radialis/ dorsalis pedis, no cyanosis, +1 pitting edema bilateral lower extremity Neuro: Somnolent, easily arousable Psych: Unable to assess G/U: Positive Sage Plan: In/out: -825, urine output 1400 mL, Sage catheter placed 10/30/2024 Please make note that the patient had pure wick and the urine output is not accurate in the beginning Chest x-ray from today on personal review does not show any significant change compared to before. Still has patchy opacities bilaterally in the upper lobes, left costophrenic angle is blunted Her creatinine is slowly trending up. Will decrease the Lasix to 20 mg twice daily Continue with antibiotics BiPAP nightly and as needed shortness of will be helpful to open of the lungs Plan discussed with primary team as well as RN at bedside No further recommendation from pulmonary perspective, will sign off Please call directly with any questions Please note the above document was generated using voice recognition software. It may contain grammatical, syntax or spelling errors.Any formal questions or concerns about the content, text or information contained within the body of this dictation should be directly addressed to the provider for clarification. Subjective "My breathing feels good but sometimes I feel short of breath." Patient continued with lasix 40mg bid and this was net negative 825ml. Patient had family meeting yesterday regarding goals of care. Results of discussion are to remain DNR/DNI, continue with antibiotics and diuresis. Patient was at [facility] but unfortunately has had little progress in her functional status. Family is exploting other facilities once ready for discharge. Plan given family's wishes to continue with medical will be to restart Eliquis today. Palliative care consult placed. CXR this am showed stable left pleural effusion with some bilateral haziness concerning for pulmonary vascular congestion. Review of Systems 2 Review of Systems: All systems reviewed & are unremarkable except as noted in HPI & below Physical Exam 2 Physical Exam: VITALS: Reviewed. WEIGHT/BMI reviewed. GEN: Chronically ill appearing woman, sleepy but arousable. PSYCH: AOx2, poor short term memory/recall. HEENT: NC/AT NECK: Supple, with no masses. no lymphadenopathy. CV: RRR, no m/r/g. LUNGS: Crackles present in bilateral upper lobes lobes w/diminished sound in left lower lobs., chest rise symmetrical, breathing nonlabored. SpO2 99% on 2L NC. Oxygen turned off. ABD: Soft, NT/ND, NBS, no masses or organomegaly. : Sage draining yellow clear urine. SKIN: Warm, well perfused. No skin rashes or abnormal lesions. MSK: No deformities, Normal gait. EXT: No clubbing, cyanosis, or edema. NEURO: AOx2, letharigc and more confused this am but able to follows commands, face symmetric, speech clear. Skin: no rashes, warm and dry Lymphatic: no cervical or axillary lymphadenopathy Results & Data Results & Data Laboratory Results 11/01/24 04:43 11/02/24 08:43 Abnormal Lab Results 11/01/24 11/01/24 11/01/24 11:17 16:24 20:17 Sodium Potassium Chloride Carbon Dioxide Anion Gap BUN Creatinine Est Cr Clr Drug Dosing eGFR BUN/Creatinine Ratio Glucose POC Glucose 167 H 124 H 209 H Calcium Phosphorus Magnesium 11/02/24 08:43 Sodium 138 Potassium 3.3 L Chloride 102 Carbon Dioxide 29 Anion Gap 7 BUN 11 Creatinine 0.85 Est Cr Clr Drug Dosing 46.6 eGFR 70.96 BUN/Creatinine Ratio 12.9 Glucose 114 H POC Glucose Calcium 8.1 L Phosphorus 3.8 Magnesium 1.7 Diagnostic Findings Chest X-Ray 11/02/24 07:00 EXAM: XR chest 1V portable CLINICAL HISTORY: f/u TECHNIQUE: Radiograph of chest was acquired. 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 No acute osseous abnormality. Left shoulder arthroplasty status. IMPRESSION: Right chest port insitu with tip seen at SVC and right atrium junction Cardiomegaly - unchanged Cardiac pacemaker insitu with leads noted in right atrium and ventricle Ill defined haziness in bilateral lung colin - likely pulmonary congestion No new findings. . Electronically signed by Lincoln Addison 11-02-2024 08:03 AM PG Care Time/CCT Total # of Minutes Spent Total Time Spent with Patient: Total time spent is greater than 50% in coordination of care (as documented) at patient's floor/unit and/or counseling patient: Coding Level of Care Code 23825 SUB INP/OBS CARE 2/35MIN Diagnoses Acute HFrEF (heart failure with reduced ejection fraction) I50.21 Multifocal pneumonia J18.9 Acute hypoxemic respiratory failure J96.01 Metastases to the liver C78.7 Pulmonary hypertension I27.20
[2024-11-02 09:25] LABS: Anion Gap 7.0 (3-11); Blood Urea Nitrogen 11.0 mg/dl (6-23); Calcium 8.1 mg/dl (8.6-10.3); Carbon Dioxide 29.0 mmol/L (21-32); Chloride 102.0 mmol/L (98-107); Creatinine Clr Calc Pharmacy 46.6 ml/min; Glucose 114.0 mg/dl (70-99(Fasting)); Magnesium 1.7 mg/dl (1.7-2.4); Potassium 3.3 mmol/L (3.5-5.1); Sodium 138.0 mmol/L (136-145)
--- NOTE | 2024-11-02 10:47 | Hospitalist Progress Note ---
Date of Service November 02, 2024 Assessment & Plan (1) Acute hypoxemic respiratory failure: (2) Multifocal pneumonia: (3) Breast cancer, stage 4: (4) Metastases to the liver: (5) Memory loss: (6) Hypothyroidism: (7) Atrial fibrillation: (8) Diabetes mellitus, type 2: (9) Hx of cardiac pacemaker: (10) Gastroesophageal reflux disease: (11) Status post gastric bypass for obesity: (12) MRSA (methicillin resistant staph aureus) culture positive: (13) Chronic headaches: (14) Stress-induced cardiomyopathy: (15) Acute HFrEF (heart failure with reduced ejection fraction): (16) Pleural effusion: Plan 74yo female with metastatic breast cancer ( dx 2016 - localized L breast ca, with discovery of mets in 2020), afib on Eliquis, tachy-monica syndrome, DM2, hypothyroidism, anxiety she has hx of nacrotic use disorder in 08/2024 hospitalized for pneumonia. Since that admission she has been staying at [facility] but has made little progress with such. on 10/25/2024, presented with dyspnea, hypoxia and found to has b/l pneumonia, pulmonary edema, pleural effus. ion so concern for microaspiration. on zosyn, and started on diuretics. daughter deferring thoracentesis she's is deconditioned no longer good candidate for chemotherapy. not oriented to year nor month on 11/01/2024; 4pm, meets with and 2 daughters, agreement for hospice care but completion of antibiotics started on lyrica BID for pain control. daughter requested placement to [place], [place] address constipation. overall plan daughter requested placement to [facility] for hospice care c/w lyrica BID for pain control; up-titrate as needed will completed 12-14 days of antibotics, switching to augmentin today she's on tramadol c/w marinol for appetite switching from heart healthy to regular diet. deposition daughter requested placement to [facility] #acute hypoxic respiratory failure, pleural effusion multifocal pneumonia repeat CXR (10/31) show multifocal PNA suspect this is relate to microaspiration, speech eval provide easy to chew diet. s/p zosyn, switching to augmentin and doxycycyline resuming eliquis given now family want aggressive measure. she's on zosyn and vancomcyin ?? breast cancer with lymphagitic spread pain control lyrica 50mg BID. pain improved she's also on tramadol low dose morphine 2mg IV PRN started 11/01 evening pleural effusion family is deferring thoracentesisy pulmonary recommenced ongoing diuresis she's on IV lasix 40mg BID #b/l pneumonia - -zosyn/vanco as above -plan for total course of 12-14 days #stage 4 breast cancer with mets to the liver - deconditioning. -follows with Dr De Luna, oncology -off chemo since early 2024 -CT a/p in August showed progressive liver mets -will obtain repeat CT of a/p does not believe she's can tolerate chemotherapy given anorexia, marinol 5mg TID can increased to 10mg TID if needed switching from heart healthy to regular diet as patient preference #acute HFrEF 2nd to suspected stress-induced cardiomyopathy - -based on echo findings this admission -b/l pleural effusion -alternatively the cardiomyopathy could be ischemic in etiology -cont lasix 40 IV BID pulmonary and family defer thoracentesis #abdominal pain/flank pain/back pain - -2nd to extensive liver mets, severe constipation, other factors -tramadol not helpful; has been on this medicine for quite some time palliative care recommended trial of morphine daughter remained reluctant given patient hx of nacrotic use disorder #opiate-induced constipation - -CT a/p - r/o ileus, etc. -dulcolax/miralax -then needs maintenance with senna/colace/miralax -dulcolax suppos prn #atrial fibrillation on Eliquis - - diltiazem 360mg daily -relatively contraindicated with the depressed LV function on echo this adm ission -follows with Dr Ramires; his notes state she was on meto succ in the past and it was stopped -Eliquis is on hold due to need for thoracentesis, etc #T2DM - -pharmacy providing glycemic oversight - appreciate their assistance -cont basal-bolus insulins -last a1c was 8.4% in September #hypothyroidism --synthyroid #chronic headaches/memory loss/confusion - -start with CT head likely need brain MRI w/wo contrast #GERD - -cont PPI twice daily correspondence [place] [facility] [place] team with details re: consultation Admission and Anticipated Discharge Date Admission Date: October 25, 2024 Subjective "My breathing feels good but sometimes I feel short of breath." daughter requested placement to [facility] for hospice care with ongoing antibiotics she was started on lyrica 25 BID and pain improved in addition, appetite improved with marinol patient requested to switched from heart health diet to regular diet patient understand that she actively dying she's eager to see her grandson Physical Exam Physical Exam: General; chronically ill appearing HEENT:At/NC heart: Normal s1; s2; RRR lung: decreased breath sound; on 2 liter oxygen abdomen: soft to touch neuro: able to follow command; not oriented to year nor month MSK; no edema Results & Data Results & Data Laboratory Results Laboratory Results - last 72 hr 10/30/24 10/30/24 10/30/24 11:53 17:00 21:00 WBC RBC Hgb Hct MCV MCH MCHC RDW Std Deviation RDW Coeff of Thompson Plt Count MPV Sodium Potassium Chloride Carbon Dioxide Anion Gap BUN Creatinine Est Cr Clr Drug Dosing eGFR BUN/Creatinine Ratio Glucose POC Glucose 193 H 203 H 160 H Calcium Phosphorus Magnesium Random Vancomycin 10/31/24 10/31/24 10/31/24 04:20 07:33 11:48 WBC 12.56 H RBC 3.31 L Hgb 9.1 L Hct 29.1 L MCV 87.9 MCH 27.5 MCHC 31.3 L RDW Std Deviation 53.9 H RDW Coeff of Thompson 16.9 H Plt Count 197 MPV 11.3 Sodium 135 L Potassium 3.3 L Chloride 100 Carbon Dioxide 26 Anion Gap 9 BUN 13 Creatinine 0.65 Est Cr Clr Drug Dosing 66.0 eGFR 91.19 BUN/Creatinine Ratio 20.0 Glucose 131 H POC Glucose 140 H 156 H Calcium 8.2 L Phosphorus Magnesium Random Vancomycin 21.5 H 10/31/24 10/31/24 11/01/24 16:45 20:56 04:43 WBC 10.10 RBC 3.19 L Hgb 8.7 L Hct 27.9 L MCV 87.5 MCH 27.3 MCHC 31.2 L RDW Std Deviation 52.7 H RDW Coeff of Thompson 16.7 H Plt Count 180 MPV 11.9 Sodium 140 Potassium 3.0 L Chloride 103 Carbon Dioxide 30 Anion Gap 7 BUN 12 Creatinine 0.77 Est Cr Clr Drug Dosing 51.4 eGFR 79.90 BUN/Creatinine Ratio 15.6 Glucose 118 H POC Glucose 145 H 188 H Calcium 8.1 L Phosphorus 3.8 Magnesium 1.6 L Random Vancomycin 11/01/24 11/01/24 11/01/24 11:17 16:24 20:17 WBC RBC Hgb Hct MCV MCH MCHC RDW Std Deviation RDW Coeff of Thompson Plt Count MPV Sodium Potassium Chloride Carbon Dioxide Anion Gap BUN Creatinine Est Cr Clr Drug Dosing eGFR BUN/Creatinine Ratio Glucose POC Glucose 167 H 124 H 209 H Calcium Phosphorus Magnesium Random Vancomycin 11/02/24 08:43 WBC RBC Hgb Hct MCV MCH MCHC RDW Std Deviation RDW Coeff of Thompson Plt Count MPV Sodium 138 Potassium 3.3 L Chloride 102 Carbon Dioxide 29 Anion Gap 7 BUN 11 Creatinine 0.85 Est Cr Clr Drug Dosing 46.6 eGFR 70.96 BUN/Creatinine Ratio 12.9 Glucose 114 H POC Glucose Calcium 8.1 L Phosphorus 3.8 Magnesium 1.7 Random Vancomycin PG Care Time/CCT Total # of Minutes Spent Total Time Spent with Patient: Total time spent is greater than 50% in coordination of care (as documented) at patient's floor/unit and/or counseling patient: Coding Level of Care Code 01433 SUB INP/OBS CARE 2/35MIN Diagnoses Acute hypoxemic respiratory failure J96.01 Multifocal pneumonia J18.9 Breast cancer, stage 4 C50.919 Metastases to the liver C78.7 Memory loss R41.3 Hypothyroidism E03.9 Atrial fibrillation I48.91 Diabetes mellitus, type 2 E11.9 Hx of cardiac pacemaker Z95.0 Gastroesophageal reflux disease, esophagitis presence not specified K21.9 Esophagitis presence: esophagitis presence not specified Status post gastric bypass for obesity Z98.84 MRSA (methicillin resistant staph aureus) culture positive Z22.322 Chronic headaches R51.9; G89.29 Stress-induced cardiomyopathy I51.81 Acute HFrEF (heart failure with reduced ejection fraction) I50.21 Pleural effusion J90 Time Spent (min) 35 (10) Gastroesophageal reflux disease Esophagitis presence: esophagitis presence not specified Qualified Code(s): K21.9 - Gastro-esophageal reflux disease without esophagitis
--- NOTE | 2024-11-02 12:12 | Palliative Family Discussion ---
Date of Service November 01, 2024 Patient Directed Conference Time of Meetin:00 - 17:00 Participants: Jaimie Arguelles AGACNP Patient participation: no Patient Support System: spouse Rony and daughters Other Healthcare Provider Participation: None Meeting Location: 4 454 (vacant room) Advanced Directive available: no If yes, descriptors: The patient's surrogate medical decision maker participated: yes Legally authorized health care proxy: [] Other surrogate: [] A family meeting was held for MUNIRA EDWARDS. This meeting was necessary for determining the appropriate course of treatment. Topics of Discussion Topics of Discussion: 1. expected/typical progression of disease 2. prognostication 3. goals of care 4. symptom management at end of life 5. hospice care Other Content of Meetin. Opportunity given for participants to speak and ask questions. 2. Participants were assured of attention to patient comfort. 3. Reassurance provided. 4. Support was provided for informed, good-jamie decisions. 5. Emotions expressed by family were acknowledged and addressed. 6. Follow-up Outpatient: n/a 7. Plan of Care: comfort directed care, pending [facility]/ SNF placement Pt is more drowsy today and arousable but oriented to person and place only. Helped family understand that pt's cognitive state may wax and wane and that patient currently exhibits lack of decisional capacity based on the inability to convey understanding of personal PMHx, current medical condition, treatment options nor the risks / benefits/ potential outcomes of accepting/declining those options, and inability to make decisions based on such knowledge. Hospital does not have written documentation of patient wishes concerning her chosen proxy for medical decisions. Pt has previously verbalized that she does have an advanced directive at home which documents her wish for her daughter Zakiya Edward ([phone]) to serve as primary proxy and her daughter Lulu Edwards ([phone]) as secondary proxy for medical decisions in the event she lacks decisional capacity. Helped family understand that per [place] [id number], in absence of written documentation of patient wishes, pt's proxy for medical decisions would be her spouse Rony Edwards. Pt does currently require a proxy for medical decisions. Zakiya shared that she has a copy in her care and will bring in to the hospital today. Zakiya, Lulu and Rony are all in agreement to jointly participate in care planning and medical decision making for pt. Dr Daly was present for conversation and discussed pt's extensively metastatic disease and current poor health/deconditioning/frailty precluding any further cancer directed treatments. We discussed that the pt's cancer is not curable and any cancer directed treatment would be palliative in nature and likely cause more harm than relief in her current state of health. Zakiya shared desire to avoid any opiates or sedating agents with concern for pt's addiction history. She questioned if pt might be "dragging things out to get more pain medications". We discussed that the pt has been c/o severe upper abdominal pain which is consistent with her disease process. Family was focused on improving pt's diet in hope of improved health that she might return to living independently at home. Dr Daly shared concern with family that the pt is dying from her cancer and any further interventions are "just prolonging her suffering". We discussed concern that the pt's current level of health and functional ability is likely the best she will be and we expect her health to only decline from here. We discussed a prognosis of weeks to months, based on the following prognostic scores (calculation based on pt's current condition): Palliative Prognostic Index (PPI) Score: 8.5 (PPI > 6 = approx survival of three weeks. Sensitivity 80% / Specificity 85%.) Ravi CY, Diogo YS, Ahn HM, Diane JS, Wilbert TL, Marci CY, Siddhartha CC, Destiny YC, Matthew JM, Carole JH, Horacio WC.Combination of initial palliative prognostic index and score change provides a better prognostic value for terminally ill cancer patients: a six- year observational cohort study https://www.ncbi.nlm.nih.gov/pubmed/83223610 . J Pain Symptom Manage. 2014;48(5):804-14. Palliative Prognostic Score (PaP - predicts 30 day survival probability in cancer and non cancer diagnoses): 11 = 30-day survival probability is 30-70% Candy Neal.Independent validation of Palliative Prognostic Score in terminally ill patients referred to a hospital-based palliative medicine consultation service https://www.ncbi.nlm.nih.gov/pubmed/83691222 . J Pain Symp Manage. 2001; 22(5):281832. Discussed that these prognostic scores are a general reflection of likely outcomes and that patient outcomes do vary. We discussed concern that, given pt's deconditioned state and poor appetite, her timeline could be much shorter. We briefly discussed options of continuing current level of care vs transition to comfort directed care. Discussed hospice benefit: an interdisciplinary program offered by nurses, nurses aides, social workers, chaplains and a manager medical for patients with a terminal condition and a life expectancy of less than 6 months. This is covered by Medicare at 100%/no out of pocket expense to patient and all meds/supplies needed by patient for the reason they are on hospice are paid for/covered by hospice. The goal is assure quality of life of the patient in their home setting (home, group home, inpatient hospice setting) by providing symptoms management, psychosocial and spiritual support. However, they cannot offer 24 hours care and if the family is unable to provide that care, they will have to consider personal care with out of pocket cost vs. group home placement. We discussed the goals of hospice as a patient service and the goals of care; we discussed EOL trajectories and transitions rogers the emotional impact of realizing mortality as a concrete reality from prior abstract considerations. Pt was reassured that no matter where they are along this trajectory, they are not alone - their medical team will remain by their side through their journey. Discussed the pros/cons of accepting help when especially weakened and distressed by pain-which would also help provide relief/decrease caregiver burden/strain. Family all in agreement to transition to comfort directed care, but Zakiya continued to stress desire to avoid any opiates or sedating agents. We discussed likely need for opiate pain management at end of life given the expected progression of pt's disease. Family shared that they do want suffering prevented as much as we are able, but that their primary goal is to avoid opiates and prevent lethargy. Discussed the difficulty balancing adequate management of severe pain against side effect of sedation. Discussed hope that we can offer the patient comfort in her final days, but she may also sleep more as this is a normal part of the dying process. The goal is to alleviate suffering when able. Anticipatory guidance offered to family. Discussed changes pt may move through in the dying process including but not limited to sleeping more, disorientation when awake, restlessness, diminished senses/inability to respond to stimulus although ability to be aware of them remains intact longer, and changes in body temperatures, skin changes/mottling/cyanosis, respiratory pattern changes, and oral secretions. Family verbalized understanding. The goal is to assure a peaceful . Ultimately, pt was transitioned to comfort directed care, with plan for discharge to [facility] with hospice care. Time Involved in Meeting: I spent 75 minutes overall addressing this case: 10 in medical data review/discussion with referring provider(s) and/or preparation for the visit 60 in direct interaction with the patient's family 60 Advance Care Planning/Goals of Care discussions as detailed above in note (must be >16min) 5 in subsequent review and synthesis of assessment and plan
[2024-11-02] MEDS: POTASSIUM CHLORIDE / WTR 10 MEQ/100 ML PLCT IV SCH (12:14)
--- NOTE | 2024-11-02 13:03 | Palliative Care Progress Note ---
Date of Service November 02, 2024 Assessment & Plan (1) Palliative care by specialist: Plan: Palliative care will continue to follow for ongoing EOL pt care and family support. (2) Counseling regarding advanced directives and goals of care: Plan: Lengthy family meeting held yesterday, goals of care clearly established for comfort directed care, plan for discharge to [facility] with hospice. CM working with family to identify H. (3) Cancer related pain: Plan: Pt awake and alert today, shared that pain is well managed at this time. Continue scheduled pregabalin and marinol per primary. Continue tramadol 100 mg PO Q6H PRN for moderate pain and morphine 2 mg IV Q30M PRN for severe BTP. (4) Comfort measures only status: Plan: Family request transition to S[facility] PANEL HANGER on 11/01/24 (5) Need for comfort care: Plan: Family request transition to [facility]EL [facility] on 11/01/24, continue current course of ABx/medical management (per primary team) through admission with transition to hospice care on discharge. Plan as above Admission and Anticipated Discharge Date Admission Date: October 25, 2024 Subjective Assessed pt at bedside, she was transitioned to SIDE PANEL HANGER on 11/01/24. Pt is more awake/alert today and pleasantly communicative. She appears comfortable, NAD, with normal respiratory effort on room air. No visitors at bedside. Pt states that pain is well managed at this time. Review of Systems Review of Systems: All systems reviewed & are unremarkable except as noted in Subjective Physical Exam Constitutional: + ill appearing and + frail appearing; n o acute distress Eyes: PERRL, conjunctivae normal, anicteric sclerae Neck: normal visual inspection and trachea midline; neck nontender Respiratory: normal respiratory effort and able to speak in complete sentences; does not use accessory muscles and no cough Auscultation: + diminished lung sounds (bilateral bases) and + wheezes (diffusely) Cardiovascular: Rate/Rhythm: regular rate and regular rhythm Heart Sounds: no murmur Vessels: + JVD Extremities: + edema (2+ LUE, trace RLE); no calf tenderness Gastrointestinal (Abdomen): normal bowel sounds, soft, nontender, no hepatosplenomegaly Inspection/Auscultation: abdomen not distended Musculoskeletal: Extremities: + joint enlargement (R knee) and strength 5/5 throughout; no cyanosis and no clubbing Skin: no rashes, warm and dry Neurologic: Psychiatric: A+Ox3, euthymic affect Results & Data Vital Signs (Past 12 Hours) Vital Signs Temp 36.9 C 11/01/24 19:40 Pulse 60 11/01/24 19:40 Resp 20 11/01/24 19:40 BP 142/65 H 11/01/24 19:40 Pulse Ox 95 11/01/24 19:40 O2 Del Method Nasal Cannula 11/01/24 19:50 O2 Flow Rate 2 11/01/24 19:50 Intake & Output 11/01/24 11/02/24 11/02/24 18:59 06:59 18:59 Intake Total 475 / 850 375 / 850 100 / 100 Output Total 1000 / 1400 400 / 1400 Balance -525 / -550 -25 / -550 100 / 100 Intake: IV 475 / 850 375 / 850 100 / 100 Piperacillin/Tazobactam 4.5 gm 200 / 300 100 / 300 100 / 100 In 100 ml @ 25 mls/hr IV Q8H [facility] Rx#:[id number] Vancomycin HCl 1,250 mg In 275 / 550 275 / 550 Sodium Chloride 0.9% 250 ml @ 200 mls/hr IV Q18H [facility] Rx#: [id number] Output: Urine Amount (Catheter) 1000 / 1400 400 / 1400 Sage/Indwelling 1000 / 1400 400 / 1400 Laboratory Results No further labs or diagnostics in concert with comfort directed care. Diagnostic Findings No further labs or diagnostics in concert with comfort directed care. Medications Administered Current Inpatient Medications Albuterol (Albuterol Hfa 8 Gm Inhaler) 2 puffs INH Q4H PRN PRN Reason: Shortness Of Breath Or Wheezing Stop: 11/24/24 23:04 Last Admin: 10/31/24 19:25 Dose: 2 puffs Bisacodyl (Bisacodyl 10 Mg Supp) 10 mg [place] DAILY PRN PRN Reason: Constipation =-2ND LINE Stop: 11/24/24 23:04 Buspirone HCl (Buspirone 5 Mg Tab) 10 mg PO TID [facility] Stop: 12/02/24 13:59 Diltiazem HCl (Diltiazem Hcl 180 Mg Capcr) 360 mg PO QAM [facility] Stop: 11/25/24 08:59 Last Admin: 11/02/24 09:41 Dose: 360 mg Dronabinol (Dronabinol 2.5 Mg Cap) 5 mg PO TID [facility] Stop: 11/29/24 20:59 Last Admin: 11/02/24 09:43 Dose: 5 mg Duloxetine HCl (Duloxetine Hcl 60 Mg Cap) 120 mg PO DAILY [facility] Stop: 11/25/24 08:59 Last Admin: 11/02/24 09:41 Dose: 120 mg Furosemide (Furosemide Inj 20 Mg/2 Ml Vial) 20 mg IV BID17 [facility] Stop: 12/02/24 16:59 Glycopyrrolate (Glycopyrrolate 0.2 Mg/Ml Vial) 0.4 mg IV Q4H PRN PRN Reason: Rattling Secretions or Pulm Congestion Stop: 12/01/24 17:08 Piperacillin Sod/Tazobactam Sod (Zosyn) 4.5 gm in 100 mls @ 25 mls/hr IV Q8H [facility]; Protocol Stop: 11/04/24 23:59 Last Admin: 11/02/24 12:34 Dose: 25 mls/hr Potassium Chloride (K Pal / Wtr) 10 meq in 100 mls @ 100 mls/hr IV Q1H [facility] Stop: 11/02/24 13:59 Last Admin: 11/02/24 12:16 Dose: Not Given Insulin Glargine (Lantus Per Unit Charge) 6 units SQ DAILY [facility] Stop: 11/27/24 08:59 Last Admin: 11/02/24 09:42 Dose: 6 units Levothyroxine Sodium (Levothyroxine Sodium 75 Mcg Tablet) 75 mcg PO DAILYBB [facility] Stop: 11/25/24 06:29 Last Admin: 11/02/24 06:17 Dose: 75 mcg Lidocaine (Lidocaine 5% Oint 30 Gm Tube) 1 appln EXT BID [facility] Stop: 11/29/24 09:14 Last Admin: 11/02/24 09:42 Dose: 1 appln Lorazepam (Lorazepam 2 Mg/1 Ml Vial) 0.5 mg IV Q4H PRN PRN Reason: Anxiety/Agitation Stop: 12/01/24 17:08 Last Admin: 11/01/24 19:47 Dose: 0.5 mg Magnesium Hydroxide (Magnesium Hydroxide Susp 30 Ml Udc) 30 ml PO DAILY PRN PRN Reason: Constipation-FIRST Line Stop: 11/24/24 23:04 Magnesium Oxide (Magnesium Oxide 400 Mg Tab) 400 mg PO QAM [facility] Stop: 11/25/24 08:59 Last Admin: 11/02/24 09:42 Dose: 400 mg Melatonin (Melatonin 3 Mg Tab) 9 mg PO HS PRN PRN Reason: Sleep Stop: 11/24/24 23:04 Last Admin: 11/02/24 00:14 Dose: 9 mg Morphine Sulfate (Morphine Sulfate 2 Mg/Ml Carp) 2 mg IV Q30M PRN PRN Reason: Pain or Respiratory Distress Stop: 11/15/24 17:08 Multi-Ingredient Mouthwash/Gargle (First - Mouthwash Blm 5 Ml Udp) 5 ml PO TID [facility] Stop: 11/29/24 09:29 Last Admin: 11/02/24 09:43 Dose: 5 ml Multivitamins (Multivitamin Tab) 1 tab PO QAM [facility] Stop: 11/25/24 08:59 Last Admin: 11/02/24 09:41 Dose: 1 tab Nystatin (Nystatin Susp 500,000 U/5 Ml Udc) 10 ml PO TID [facility] Stop: 11/09/24 08:59 Last Admin: 11/02/24 09:41 Dose: 10 ml Olopatadine HCl (Olopatadine Hcl 37 Drops/2.5 Ml Drops) 1 drops OP DAILY PRN PRN Reason: DRY EYES Stop: 11/27/24 08:59 Ondansetron HCl (Ondansetron Inj 2 Mg/Ml 2 Ml Vial) 4 mg IV Q4H PRN PRN Reason: Nausea &/or Vomiting Stop: 12/01/24 17:08 Ondansetron HCl (Ondansetron 4 Mg Od Tab) 4 mg SL Q4H PRN PRN Reason: Nausea &/or Vomiting Stop: 12/01/24 17:08 Pantoprazole Sodium (Pantoprazole 40 Mg Tab) 40 mg PO BID [facility] Stop: 11/25/24 20:59 Last Admin: 11/02/24 09:42 Dose: 40 mg Potassium Chloride (Potassium Chloride Crtab 20 Meq Tabcr) 20 meq PO BID [facility] Stop: 11/25/24 08:59 Last Admin: 11/02/24 09:41 Dose: 20 meq Pregabalin (Pregabalin 25 Mg Cap) 25 mg PO BID [facility] Stop: 12/01/24 20:59 Last Admin: 11/02/24 09:42 Dose: 25 mg Rifaximin (Rifaximin 550 Mg Tablet) 550 mg PO BID [facility] Stop: 11/28/24 20:59 Last Admin: 11/02/24 09:43 Dose: 550 mg Senna/Docusate Sodium (Docusate Sodium/Senna 50/8.6mg Tab) 1 tab PO BID [facility] Stop: 11/25/24 08:59 Last Admin: 11/02/24 09:31 Dose: Not Given Sodium Biphosphate/Sodium Phosphate (Sod Phosphate/Sod Biphosphate Enema 132 Ml Btl) 118 ml [place] DAILY PRN PRN Reason: Constipation-fourth choice Stop: 11/24/24 23:04 Tramadol HCl (Tramadol Hcl 50 Mg Tablet) 100 mg PO Q6H PRN PRN Reason: Pain Stop: 11/29/24 14:04 Last Admin: 11/02/24 06:24 Dose: 100 mg PG Care Time/CCT Total # of Minutes Spent Total Time Spent with Patient: Total time spent is greater than 50% in coordination of care (as documented) at patient's floor/unit and/or counseling patient: Coding [place] [address] SUB INP/OBS CARE 2/35MIN Patient Type Established History Problem Focused Exam Problem Focused Medical Decision Making Low Complexity Diagnoses Palliative care by specialist Z51.5 Counseling regarding advanced directives and goals of care Z71.89 Cancer related pain G89.3 Comfort measures only status Z51.5 Need for comfort care
[2024-11-02] MEDS: busPIRone 5 MG TAB PO SCH (13:22)
[2024-11-02] MEDS: FUROSEMIDE INJ 20 MG/2 ML VIAL IV SCH (17:15)
[2024-11-03 05:27] LABS: Hematocrit (blood only) 28.6 % (37.0-47.0); Hemoglobin 8.9 g/dl (12.0-16.0); Mean Corpuscular Hemoglobin 27.2 pg (25.0-34.0); Mean Corpuscular Volume 87.5 fL (80.0-100.0); Platelet Count 200 K/uL (130-400); RDW Standard Deviation 55.2 fL (36.4-46.3); Red Blood Count 3.27 M/uL (4.20-5.40); White Blood Count 8.94 K/ul (4.8-10.8)
[2024-11-03 05:44] LABS: Alanine Aminotransferase 14.0 U/L (7-52); Albumin Globulin Ratio 0.9 (0.9-2); Alkaline Phosphatase 218.0 U/L (34-104); Anion Gap 7.0 (3-11); Bilirubin,Total 0.5 mg/dl (0.2-1.0); Blood Urea Nitrogen 10.0 mg/dl (6-23); Calcium 8.0 mg/dl (8.6-10.3); Carbon Dioxide 31.0 mmol/L (21-32); Chloride 101.0 mmol/L (98-107); Creatinine Clr Calc Pharmacy 53.5 ml/min; Globulin 2.6 gm/dl (2.5-4.0); Glucose 124.0 mg/dl (70-99(Fasting)); Potassium 3.2 mmol/L (3.5-5.1); Sodium 139.0 mmol/L (136-145); Total Protein 4.9 gm/dl (6.0-8.3)
--- NOTE | 2024-11-03 08:40 | Palliative Care Progress Note ---
Date of Service November 03, 2024 Assessment & Plan (1) Palliative care by specialist: Plan: (2) Counseling regarding advanced directives and goals of care: Plan: Lengthy family meeting held 11/01/24, goals of care clearly established for comfort directed care, plan for discharge to [facility] with hospice. CM working with family for discharge plan. Spoke with pt's daughter, Zakiya, via phone today. She had questions about levels of care for ongoing comfort directed care. Discussed hospice benefit: an interdisciplinary program offered by nurses, nurses aides, social workers, chaplains and a bio medical technician for patients with a terminal condition and a life expectancy of less than 6 months. This is covered by Medicare at 100%/no out of pocket expense to patient and all meds/supplies needed by patient for the reason they are on hospice are paid for/covered by hospice. The goal is assure quality of life of the patient in their home setting (home, snf, inpatient hospice setting) by providing symptoms management, psychosocial and spiritual support. However, they cannot offer 24 hours care and if the family is unable to provide that care, they will have to consider personal care with out of pocket cost vs. snf placement. We discussed the goals of hospice as a patient service and the goals of care; we discussed EOL trajectories and transitions rogers the emotional impact of realizing mortality as a concrete reality from prior abstract considerations. Pt was reassured that no matter where they are along this trajectory, they are n ot alone - their medical team will remain by their side through their journey. Discussed the pros/cons of accepting help when especially weakened and distressed by pain-which would also help provide relief/decrease caregiver burden/strain. Zakiya expressed desire for pt to remain in hospital for GIP. We discussed criteria for GIP hospice and that the pt's symptoms are being managed well with minimal PRN medications and she is currently hemodynamically stable. Helped Zakiya understand that the pt does not currently fit criteria for GIP hospice care. Zakiya expressed understanding and shared that they are hopeful for bed at [facility] and have been working with CM for this. (3) Cancer related pain: Plan: Pt awake and alert today, shared that pain is well managed at this time. Continue scheduled pregabalin and marinol per primary. Continue tramadol 100 mg PO Q6H PRN for moderate pain and morphine 2 mg IV Q30M PRN for severe BTP. (4) Comfort measures only status: Plan: Family request transition to [facility] [facility] on 11/01/24. (5) Need for comfort care: Plan: Family request transition to [employer]LE [employer] on 11/01/24, continue current course of ABx/medical management (per primary team) through admission with transition to hospice care on discharge. Plan as above We will sign off on this patient as goals of care are clearly established for comfort directed care with plan for DC to [facility] and there are no active symptoms requiring palliative care intervention. Thank you for including Palliative Care in the management of this patient. Please call with any questions or concerns regarding this consultation. Admission and Anticipated Discharge Date Admission Date: October 25, 2024 Subjective Assessed pt at bedside, she was transitioned to [facility]ING MULE OPERATOR on 11/01/24. Pt is more awake/alert today and pleasantly communicative. She appears comfortable, NAD, with normal respiratory effort on room air. No visitors at bedside. Pt states that pain is well managed at this time. Review of Systems Review of Systems: All systems reviewed & are unremarkable except as noted in Subjective Physical Exam Constitutional: + ill appearing and + frail appearing; n o acute distress Eyes: PERRL, conjunctivae normal, anicteric sclerae Neck: normal visual inspection and trachea midline; neck nontender Respiratory: normal respiratory effort and able to speak in complete sentences; does not use accessory muscles and no cough Auscultation: + diminished lung sounds (bilateral bases) and + wheezes (diffusely) Cardiovascular: Rate/Rhythm: regular rate and regular rhythm Heart Sounds: no murmur Vessels: + JVD Extremities: + edema (2+ LUE, trace RLE); no calf tenderness Gastrointestinal (Abdomen): normal bowel sounds, soft, nontender, no hepatosplenomegaly Inspection/Auscultation: abdomen not distended Musculoskeletal: Extremities: + joint enlargement (R knee) and strength 5/5 throughout; no cyanosis and no clubbing Skin: no rashes, warm and dry Neurologic: Psychiatric: A+Ox3, euthymic affect Results & Data Vital Signs (Past 12 Hours) Vital Signs Temp Pulse Pulse Resp BP Pulse Ox O2 Del Method 11/03/24 08:00 36.4 C L 60 18 163/72 H 94 Room Air 11/03/24 06:00 60 11/03/24 03:44 36.4 C L 62 14 179/79 H 92 Room Air 11/03/24 00:25 61 11/02/24 23:08 36.7 C 60 18 167/75 H 90 Room Air Laboratory Results No further labs or diagnostics in concert with comfort directed care. Diagnostic Findings No further labs or diagnostics in concert with comfort directed care. Medications Administered Current Inpatient Medications Albuterol (Albuterol Hfa 8 Gm Inhaler) 2 puffs INH Q4H PRN PRN Reason: Shortness Of Breath Or Wheezing Stop: 11/24/24 23:04 Last Admin: 11/03/24 09:11 Dose: 2 puffs Amoxicillin/Clavulanate Potassium (Amoxicillin/Clavulanate 875 Mg Tab) 1 tab PO BIDM [facility]; Protocol Stop: 11/10/24 16:59 Bisacodyl (Bisacodyl 10 Mg Supp) 10 mg [place] DAILY PRN PRN Reason: Constipation =-2ND LINE Stop: 11/24/24 23:04 Buspirone HCl (Buspirone 5 Mg Tab) 10 mg PO TID [facility] Stop: 12/02/24 13:59 Last Admin: 11/03/24 09:10 Dose: 10 mg Diltiazem HCl (Diltiazem Hcl 180 Mg Capcr) 360 mg PO QAM [facility] Stop: 11/25/24 08:59 Last Admin: 11/03/24 09:09 Dose: 360 mg Doxycycline Hyclate (Doxycycline Hyclate 100 Mg Cap) 100 mg PO BID [facility] Stop: 11/08/24 20:59 Dronabinol (Dronabinol 2.5 Mg Cap) 5 mg PO TID [facility] Stop: 11/29/24 20:59 Last Admin: 11/03/24 09:35 Dose: 5 mg Duloxetine HCl (Duloxetine Hcl 60 Mg Cap) 120 mg PO DAILY [facility] Stop: 11/25/24 08:59 Last Admin: 11/03/24 09:10 Dose: 120 mg Furosemide (Furosemide 20 Mg Tab) 20 mg PO BID17 [facility] Stop: 12/03/24 16:59 Glycopyrrolate (Glycopyrrolate 0.2 Mg/Ml Vial) 0.4 mg IV Q4H PRN PRN Reason: Rattling Secretions or Pulm Congestion Stop: 12/01/24 17:08 Insulin Glargine (Lantus Per Unit Charge) 6 units SQ DAILY [facility] Stop: 11/27/24 08:59 Last Admin: 11/03/24 09:11 Dose: 6 units Levothyroxine Sodium (Levothyroxine Sodium 75 Mcg Tablet) 75 mcg PO DAILYBB [facility] Stop: 11/25/24 06:29 Last Admin: 11/03/24 06:13 Dose: 75 mcg Lidocaine (Lidocaine 5% Oint 30 Gm Tube) 1 appln EXT BID [facility] Stop: 11/29/24 09:14 Last Admin: 11/03/24 09:10 Dose: 1 appln Lorazepam (Lorazepam 2 Mg/1 Ml Vial) 0.5 mg IV Q4H PRN PRN Reason: Anxiety/Agitation Stop: 12/01/24 17:08 Last Admin: 11/01/24 19:47 Dose: 0.5 mg Magnesium Hydroxide (Magnesium Hydroxide Susp 30 Ml Udc) 30 ml PO DAILY PRN PRN Reason: Constipation-FIRST Line Stop: 11/24/24 23:04 Melatonin (Melatonin 3 Mg Tab) 9 mg PO HS PRN PRN Reason: Sleep Stop: 11/24/24 23:04 Last Admin: 11/02/24 21:32 Dose: 9 mg Morphine Sulfate (Morphine Sulfate 2 Mg/Ml Carp) 2 mg IV Q30M PRN PRN Reason: Pain or Respiratory Distress Stop: 11/15/24 17:08 Last Admin: 11/03/24 11:22 Dose: 2 mg Morphine Sulfate (Morphine Sulfate 10 Mg/0.5 Ml Udp) 5 mg PO Q3H PRN PRN Reason: Pain Stop: 11/17/24 10:54 Multi-Ingredient Mouthwash/Gargle (First - Mouthwash Blm 5 Ml Udp) 5 ml PO TID [facility] Stop: 11/29/24 09:29 Last Admin: 11/03/24 09:13 Dose: 5 ml Multivitamins (Multivitamin Tab) 1 tab PO QAM [facility] Stop: 11/25/24 08:59 Last Admin: 11/03/24 09:10 Dose: 1 tab Nystatin (Nystatin Susp 500,000 U/5 Ml Udc) 10 ml PO TID [facility] Stop: 11/09/24 08:59 Last Admin: 11/03/24 09:06 Dose: 10 ml Olopatadine HCl (Olopatadine Hcl 37 Drops/2.5 Ml Drops) 1 drops OP DAILY PRN PRN Reason: DRY EYES Stop: 11/27/24 08:59 Last Admin: 11/03/24 09:12 Dose: 1 drops Ondansetron HCl (Ondansetron Inj 2 Mg/Ml 2 Ml Vial) 4 mg IV Q4H PRN PRN Reason: Nausea &/or Vomiting Stop: 12/01/24 17:08 Ondansetron HCl (Ondansetron 4 Mg Od Tab) 4 mg SL Q4H PRN PRN Reason: Nausea &/or Vomiting Stop: 12/01/24 17:08 Pregabalin (Pregabalin 25 Mg Cap) 25 mg PO BID [facility] Stop: 12/01/24 20:59 Last Admin: 11/03/24 09:35 Dose: 25 mg Rifaximin (Rifaximin 550 Mg Tablet) 550 mg PO BID [facility] Stop: 11/28/24 20:59 Last Admin: 11/03/24 09:09 Dose: 550 mg Senna/Docusate Sodium (Docusate Sodium/Senna 50/8.6mg Tab) 1 tab PO BID PRN PRN Reason: Constipation Stop: 11/25/24 08:59 Sodium Biphosphate/Sodium Phosphate (Sod Phosphate/Sod Biphosphate Enema 132 Ml Btl) 118 ml [place] DAILY PRN PRN Reason: Constipation-fourth choice Stop: 11/24/24 23:04 Tramadol HCl (Tramadol Hcl 50 Mg Tablet) 100 mg PO Q6H PRN PRN Reason: Pain Stop: 11/29/24 14:04 Last Admin: 11/03/24 09:34 Dose: 100 mg PG Care Time/CCT Total # of Minutes Spent Total Time Spent with Patient: Total time spent is greater than 50% in coordination of care (as documented) at patient's floor/unit and/or counseling patient: Coding [place] [address] SUB INP/OBS CARE 2/35MIN Patient Type Established History Problem Focused Exam Problem Focused Medical Decision Making Low Complexity Diagnoses Palliative care by specialist Z51.5 Counseling regarding advanced directives and goals of care Z71.89 Cancer related pain G89.3 Comfort measures only status Z51.5 Need for comfort care
--- NOTE | 2024-11-03 09:02 | Pulmonology Progress Note ---
Date of Service November 03, 2024 Assessment & Plan (1) Acute HFrEF (heart failure with reduced ejection fraction): (2) Multifocal pneumonia: (3) Acute hypoxemic respiratory failure: (4) Metastases to the liver: (5) Pulmonary hypertension: Plan CT chest 10/26/2024 personally reviewed: Diffuse alveolar opacities appreciated bilaterally upper and lower lobe Compressive atelectasis of the left lower lobe Moderate bilateral pleural effusion Cardiomegaly Minimal mediastinal and hilar lymphadenopathy 2D echo 10/26/2024: EF 35-40%, RV normal in size and function, RVSP 40-50 mmHg CXR 10/31/2024: Improvement of left pleural effusion in comparison to 10/25/2024 CXR 11/02/2024: stable left pleural effusion with haziness bilaterally L>R concerning for pulmonary vascular congestion. -- Acute hypoxic respiratory failure Multifactorial; improving Weaned to room air this am. Patient SpO2 92% this am Respiratory BioFire negative for everything Nasal MRSA positive BNP 1519 --Bilateral pleural effusion Likely secondary to cardiac etiology Repeat CXR 11/02/2024 stable left pleural effusion with haziness bilaterally L>R concerning for pulmonary vascular congestion. Dr Hummel discussed the findings with the patient's daughter on 10/29/2024 in the evening, she and the patient would would like to be conservative and will try to avoid any invasive procedures unless absolutely necessary --Pulmonary hypertension Likely type II Continue with diuretics Decreased dose to lasix 20mg bid. Creatinine stable continue with diuresis --[id number] smoking history Recommend outpatient pulmonary function test when she is adequately diuresed --A-fib On Eliquis Plan to restart Eliquis per Hospitalist. Palliative care consulted for goals of care discussions. Will continue medical management without aggressive measures. Plan to transition to hospice upon discharge. Continue diuresis. Family deferring thoracentesis. Pulmonary to sign off at this time Thank you for allowing us to be part of the patient's care. Call with any further concerns or questions. Admission and Anticipated Discharge Date Admission Date: October 25, 2024 Supervising Physician Co-Signing Physician Notes I saw and evaluated the patient with HUANG Castillo, and agree with findings and plan as documented in the note. Patient seen and examined at bedside. No acute distress, no adverse events overnight She was saturating 98% on room air at the time of examination Has been diuresing well Denies any nausea or vomiting Appetite is fair. Constitutional: No acute distress HEENT: EOMI, PERRLA Respiratory system: Decreased air entry bilaterally, more decreased on the left, no wheeze, no rhonchi, positive crackles bilaterally anteriorly and posteriorly CVS: S1-S2 positive, positive 3 out of 6 systolic murmur appreciated best at apex Abdomen: Soft, nontender, nondistended, positive bowel sounds x4 Extremities: +2 pulses bilaterally radialis/ dorsalis pedis, no cyanosis, +1 pitting edema bilateral lower extremity Neuro: Awake alert oriented to self and place Psych: Normal mood and affect G/U: Positive Sage Plan: Given that the patient's has no IV lines we will change furosemide to 20 mg p.o. twice daily Continue with antibiotics BiPAP nightly and as needed shortness of will be helpful to open of the lungs Plan discussed with primary team as well as RN at bedside No further recommendation from pulmonary perspective, will sign off Please call directly with any questions Please note the above document was generated using voice recognition software. It may contain grammatical, syntax or spelling errors.Any formal questions or concerns about the content, text or information contained within the body of this dictation should be directly addressed to the provider for clarification. Subjective "How long do I have left." "My breathing is fine for the most part but I sometimes get short of breath." Palliative care discussions continued with plan to continue medical management with antibiotics and diuretics. Plan to transition to hospice once discharged. Family and care management working on placement to [facility] in [place], [place] . Patient 92% on room air this am. Crackles appreciated bilaterally L>R. Pulmonary to sign off a this time. Review of Systems 2 Review of Systems: All systems reviewed & are unremarkable except as noted in HPI & below Physical Exam 2 Physical Exam: VITALS: Reviewed. WEIGHT/BMI reviewed. GEN: Chronically ill appearing woman, sleepy but arousable. PSYCH: AOx2, poor short term memory/recall. HEENT: NC/AT NECK: Supple, with no masses. no lymphadenopathy. CV: RRR, no m/r/g. LUNGS: Crackles present in bilateral upper lobes lobes w/diminished sound in left lower lobs., chest rise symmetrical, breathing nonlabored. SpO2 99% on 2L NC. Oxygen turned off. ABD: Soft, NT/ND, NBS, no masses or organomegaly. : Sage draining yellow clear urine. SKIN: Warm, well perfused. No skin rashes or abnormal lesions. MSK: No deformities, Normal gait. EXT: No clubbing, cyanosis, or edema. NEURO: AOx2, letharigc and more confused this am but able to follows commands, face symmetric, speech clear. Skin: no rashes, warm and dry Lymphatic: no cervical or axillary lymphadenopathy Results & Data Results & Data Vital Signs (Past 12 Hours) Vital Signs Temp Pulse Pulse Resp BP Pulse Ox O2 Del Method 11/03/24 08:00 36.4 C L 60 18 163/72 H 94 Room Air 11/03/24 06:00 60 11/03/24 03:44 36.4 C L 62 14 179/79 H 92 Room Air 11/03/24 00:25 61 11/02/24 23:08 36.7 C 60 18 167/75 H 90 Room Air Laboratory Results 11/03/24 05:01 11/03/24 05:01 Abnormal Lab Results 10/28/24 11/02/24 11/03/24 04:55 08:43 05:01 WBC 8.94 RBC 3.27 L Hgb 8.9 L Hct 28.6 L MCV 87.5 MCH 27.2 MCHC 31.1 L RDW Std Deviation 55.2 H RDW Coeff of Thompson 17.4 H Plt Count 200 MPV 12.2 Sodium 138 139 Potassium 3.3 L 3.2 L Chloride 102 101 Carbon Dioxide 29 31 Anion Gap 7 7 BUN 11 10 Creatinine 0.85 0.74 Est Cr Clr Drug Dosing 46.6 53.5 eGFR 70.96 83.80 BUN/Creatinine Ratio 12.9 13.5 Glucose 114 H 124 H Calcium 8.1 L 8.0 L Phosphorus 3.8 Magnesium 1.7 Total Bilirubin 0.5 AST 34 ALT 14 Alkaline Phosphatase 218 H Total Protein 4.9 L Albumin 2.3 L Globulin 2.6 Albumin/Globulin Ratio 0.9 Whole Bld Vitamin B1 176 Diagnostic Findings No imaging studies within last 24hrs. PG Care Time/CCT Total # of Minutes Spent Total Time Spent with Patient: Total time spent is greater than 50% in coordination of care (as documented) at patient's floor/unit and/or counseling patient: Coding Level of Care Code 52156 SUB INP/OBS CARE MIN Diagnoses Acute HFrEF (heart failure with reduced ejection fraction) I50.21 Multifocal pneumonia J18.9 Acute hypoxemic respiratory failure J96.01 Metastases to the liver C78.7 Pulmonary hypertension I27.20
[2024-11-03] MEDS: OLOPATADINE HCL OP PRN (09:12)
[2024-11-03] MEDS: POTASSIUM CHLORIDE CRTAB 20 MEQ TABCR PO STA (11:14)
[2024-11-03] MEDS: MoRPHine SULFATE 2 MG/ML CARP IV PRN (11:22)
--- NOTE | 2024-11-03 12:49 | Hospitalist Progress Note ---
Date of Service November 03, 2024 Assessment & Plan (1) Acute hypoxemic respiratory failure: (2) Multifocal pneumonia: (3) Breast cancer, stage 4: (4) Metastases to the liver: (5) Memory loss: (6) Hypothyroidism: (7) Atrial fibrillation: (8) Diabetes mellitus, type 2: (9) Hx of cardiac pacemaker: (10) Gastroesophageal reflux disease: (11) Status post gastric bypass for obesity: (12) MRSA (methicillin resistant staph aureus) culture positive: (13) Chronic headaches: (14) Stress-induced cardiomyopathy: (15) Acute HFrEF (heart failure with reduced ejection fraction): (16) Pleural effusion: Plan 74yo female with metastatic breast cancer ( dx 2016 - localized L breast ca, with discovery of mets in 2019), afib on Eliquis, tachy-monica syndrome, DM2, hypothyroidism, anxiety she has hx of nacrotic use disorder , in 08/2024 hospitalized for pneumonia. Since that admission she has been staying at [facility] but has made little progress with such. on 10/25/2024, presented with dyspnea, hypoxia and found to has b/l pneumonia, pulmonary edema, pleural effusion #acute hypoxic respiratory failure, pleural effusion multifocal pneumonia repeat CXR (10/31) show multifocal PNA suspect this is relate to microaspiration, speech eval provide easy to chew diet. s/p zosyn, switching to augmentin and doxycycyline resuming eliquis given now family want aggressive measure. pain control lyrica 50mg BID. pain improved she's also on tramadol low dose morphine 2mg IV PRN pleural effusion family is deferring thoracocentesis pulmonary recommenced ongoing diuresis she's on IV lasix 40mg BID #b/l pneumonia - -s/p zosyn/vanco Transition to PO Augmentin and Doxycyclin #stage 4 breast cancer with mets to the liver - deconditioning. -follows with Dr De Luna, oncology -off chemo since early 2024 -CT a/p in August showed progressive liver mets -will obtain repeat CT of a/p does not believe she's can tolerate chemotherapy given anorexia, marinol 5mg TID can increased to 10mg TID if needed switching from heart healthy to regular diet as patient preference #acute HFrEF 2nd to suspected stress-induced cardiomyopathy - -based on echo findings this admission , EF 30-35% -b/l pleural effusion -alternatively the cardiomyopathy could be ischemic in etiology -cont lasix 40 IV BID pulmonary and family defer thoracentesis #abdominal pain/flank pain/back pain - -secondary to extensive liver mets, severe constipation, other factors -tramadol not helpful; has been on this medicine for quite some time palliative care recommended trial of morphine daughter remained reluctant given patient hx of nacrotic use disorder #opiate-induced constipation - -CT a/p - r/o ileus, etc. -dulcolax/miralax -then needs maintenance with senna/colace/miralax -dulcolax suppos prn #atrial fibrillation on Eliquis - - diltiazem 360mg daily -relatively contraindicated with the depressed LV function on echo this admission -follows with Dr Ramires; his notes state she was on meto succ in the past and it was stopped -Eliquis is on hold due to need for thoracentesis, etc #T2DM - -pharmacy providing glycemic oversight - appreciate their assistance -cont basal-bolus insulins -last a1c was 8.4% in September #hypothyroidism --synthyroid #chronic headaches/memory loss/confusion - -start with CT head likely need brain MRI w/wo contrast #GERD - -cont PPI twice daily Disposition: Discharge to [facility] with hospice when accepted Admission and Anticipated Discharge Date Admission Date: October 25, 2024 Subjective patient seen and examined, she appears comfortable, asked what to do with her pleural effusion Review of Systems Review of Systems: All systems reviewed are negative, apart from the ones contained in the history. Physical Exam Physical Exam: The patient is awake, alert and oriented 3, well developed and well nourished, normocephalic and atraumatic, lying in bed and in no acute distress. HEENT--PERRL, EOMI, mucous membranes and oropharynx mildly dry Neck--supple. No JVD. No bruits. Thyroid normal, trachea midline, no adenopathy. Heart--normal S1 and S2. No murmurs, rubs or gallops. Lungs--reduced air entry on auscultation Abdomen--normal bowel sounds and soft. Extremities--no cyanosis or clubbing. No edema. Dermatologic--normal skin turgor, normal color, no abnormal lymph nodes, no rash. Neurologic--cranial nerves II through XII grossly intact. Rheumatologic--normal range of motion. Psychiatric--normal affect. Results & Data Results & Data Vital Signs (Past 12 Hours) Vital Signs Temp Pulse Pulse Resp BP Pulse Ox O2 Del Method 11/03/24 08:00 97.5 F L 60 18 163/72 H 94 Room Air 11/03/24 07:00 Room Air 11/03/24 06:00 60 11/03/24 03:44 97.5 F L 62 14 179/79 H 92 Room Air PG Care Time/CCT Total # of Minutes Spent Total Time Spent with Patient: Total time spent is greater than 50% in coordination of care (as documented) at patient's floor/unit and/or counseling patient: Coding Level of Care Code 40340 SUB INP/OBS CARE 2/35MIN Diagnoses Acute hypoxemic respiratory failure J96.01 Multifocal pneumonia J18.9 Breast cancer, stage 4 C50.919 Metastases to the liver C78.7 Memory loss R41.3 Hypothyroidism E03.9 Atrial fibrillation I48.91 Diabetes mellitus, type 2 E11.9 Hx of cardiac pacemaker Z95.0 Gastroesophageal reflux disease, esophagitis presence not specified K21.9 Esophagitis presence: esophagitis presence not specified Status post gastric bypass for obesity Z98.84 MRSA (methicillin resistant staph aureus) culture positive Z22.322 Chronic headaches R51.9; G89.29 Stress-induced cardiomyopathy I51.81 Acute HFrEF (heart failure with reduced ejection fraction) I50.21 Pleural effusion J90 Time Spent (min) 35 (10) Gastroesophageal reflux disease Esophagitis presence: esophagitis presence not specified Qualified Code(s): K21.9 - Gastro-esophageal reflux disease without esophagitis
[2024-11-03] MEDS: AMOXICILLIN/CLAVULANATE 875 MG TAB PO SCH (18:10)
[2024-11-03] MEDS: FUROSEMIDE 20 MG TAB PO SCH (18:10)
[2024-11-03] MEDS: DOXYCYCLINE HYCLATE 100 MG CAP PO SCH (21:19)
[2024-11-04 06:39] LABS: Anion Gap 6.0 (3-11); Blood Urea Nitrogen 12.0 mg/dl (6-23); Calcium 8.1 mg/dl (8.6-10.3); Carbon Dioxide 31.0 mmol/L (21-32); Chloride 101.0 mmol/L (98-107); Creatinine Clr Calc Pharmacy 45.0 ml/min; Glucose 112.0 mg/dl (70-99(Fasting)); Potassium 3.7 mmol/L (3.5-5.1); Sodium 138.0 mmol/L (136-145)
--- NOTE | 2024-11-04 12:24 | Hospitalist Progress Note ---
Date of Service November 04, 2024 Assessment & Plan (1) Acute hypoxemic respiratory failure: (2) Multifocal pneumonia: (3) Breast cancer, stage 4: (4) Metastases to the liver: (5) Memory loss: (6) Hypothyroidism: (7) Atrial fibrillation: (8) Diabetes mellitus, type 2: (9) Hx of cardiac pacemaker: (10) Gastroesophageal reflux disease: (11) Status post gastric bypass for obesity: (12) MRSA (methicillin resistant staph aureus) culture positive: (13) Chronic headaches: (14) Stress-induced cardiomyopathy: (15) Acute HFrEF (heart failure with reduced ejection fraction): (16) Pleural effusion: Plan 74yo female with metastatic breast cancer ( dx 2016 - localized L breast ca, with discovery of mets in 2019), afib on Eliquis, tachy-monica syndrome, DM2, hypothyroidism, anxiety she has hx of nacrotic use disorder , in 08/2024 hospitalized for pneumonia. Since that admission she has been staying at [facility] but has made little progress with such. on 10/25/2024, presented with dyspnea, hypoxia and found to has b/l pneumonia, pulmonary edema, pleural effusion #acute hypoxic respiratory failure, pleural effusion multifocal pneumonia repeat CXR (10/31) show multifocal PNA suspect this is relate to microaspiration, s/p zosyn, switching to augmentin and doxycycyline resuming eliquis given now family want aggressive measure. pain control lyrica 50mg BID. pain improved she's also on tramadol low dose morphine 2mg IV PRN pleural effusion family is deferring thoracocentesis pulmonary recommenced ongoing diuresis she's on po lasix 20mg BID #b/l pneumonia - -s/p zosyn/vanco Transition to PO Augmentin and Doxycyclin #stage 4 breast cancer with mets to the liver - deconditioning. -follows with Dr De Luna, oncology -off chemo since early 2024 -CT a/p in August showed progressive liver mets -will obtain repeat CT of a/p does not believe she's can tolerate chemotherapy given anorexia, marinol 5mg TID can increased to 10mg TID if needed switching from heart healthy to regular diet as patient preference #acute HFrEF 2nd to suspected stress-induced cardiomyopathy - -based on echo findings this admission , EF 30-35% -b/l pleural effusion -alternatively the cardiomyopathy could be ischemic in etiology -cont lasix 20 PO BID pulmonary and family defer thoracentesis #abdominal pain/flank pain/back pain - -secondary to extensive liver mets, severe constipation, other factors -tramadol not helpful; has been on this medicine for quite some time palliative care recommended trial of morphine daughter remained reluctant given patient hx of nacrotic use disorder #opiate-induced constipation - -CT a/p - r/o ileus, etc. -dulcolax/miralax -then needs maintenance with senna/colace/miralax -dulcolax suppos prn #atrial fibrillation on Eliquis - - diltiazem 360mg daily -relatively contraindicated with the depressed LV function on echo this admission -follows with Dr Ramires; his notes state she was on meto succ in the past and it was stopped -Eliquis is on hold due to need for thoracentesis, etc #T2DM - -pharmacy providing glycemic oversight - appreciate their assistance -cont basal-bolus insulins -last a1c was 8.4% in September #hypothyroidism --synthyroid #chronic headaches/memory loss/confusion - -start with CT head likely need brain MRI w/wo contrast #GERD - -cont PPI twice daily Deconditioning She needs maximum assistance PT recommends SNF Disposition: Pt recommends SNF, discharge when accepted Admission and Anticipated Discharge Date Admission Date: October 25, 2024 Subjective patient seen and examined, she appears comfortable, Review of Systems Review of Systems: All systems reviewed are negative, apart from the ones contained in the history. Physical Exam Physical Exam: The patient is awake, alert and oriented 3, well developed and well nourished, normocephalic and atraumatic, lying in bed and in no acute distress. HEENT--PERRL, EOMI, mucous membranes and oropharynx mildly dry Neck--supple. No JVD. No bruits. Thyroid normal, trachea midline, no adenopathy. Heart--normal S1 and S2. No murmurs, rubs or gallops. Lungs--reduced air entry on auscultation, crackles Abdomen--normal bowel sounds and soft. Extremities--no cyanosis or clubbing. No edema. Dermatologic--normal skin turgor, normal color, no abnormal lymph nodes, no rash. Neurologic--cranial nerves II through XII grossly intact. Rheumatologic--normal range of motion. Psychiatric--normal affect. Results & Data Results & Data Vital Signs (Past 12 Hours) Vital Signs Temp Pulse Resp BP Pulse Ox O2 Del Method 11/04/24 09:39 Room Air 11/04/24 07:58 97.3 F L 61 16 171/80 H 93 Room Air PG Care Time/CCT Total # of Minutes Spent Total Time Spent with Patient: Total time spent is greater than 50% in coordination of care (as documented) at patient's floor/unit and/or counseling patient: Coding Level of Care Code 71151 SUB INP/OBS CARE 2/35MIN Diagnoses Acute hypoxemic respiratory failure J96.01 Multifocal pneumonia J18.9 Breast cancer, stage 4 C50.919 Metastases to the liver C78.7 Memory loss R41.3 Hypothyroidism E03.9 Atrial fibrillation I48.91 Diabetes mellitus, type 2 E11.9 Hx of cardiac pacemaker Z95.0 Gastroesophageal reflux disease, esophagitis presence not specified K21.9 Esophagitis presence: esophagitis presence not specified Status post gastric bypass for obesity Z98.84 MRSA (methicillin resistant staph aureus) culture positive Z22.322 Chronic headaches R51.9; G89.29 Stress-induced cardiomyopathy I51.81 Acute HFrEF (heart failure with reduced ejection fraction) I50.21 Pleural effusion J90 Time Spent (min) 35 (10) Gastroesophageal reflux disease Esophagitis presence: esophagitis presence not specified Qualified Code(s): K21.9 - Gastro-esophageal reflux disease without esophagitis
[2024-11-04] MEDS: MoRPHine SULFATE 10 MG/0.5 ML UDP PO PRN (15:10)
[2024-11-05 08:54] LABS: Hematocrit (blood only) 33.1 % (37.0-47.0); Hemoglobin 10.3 g/dl (12.0-16.0); Mean Corpuscular Hemoglobin 27.3 pg (25.0-34.0); Mean Corpuscular Volume 87.8 fL (80.0-100.0); Platelet Count 228 K/uL (130-400); RDW Standard Deviation 55.8 fL (36.4-46.3); Red Blood Count 3.77 M/uL (4.20-5.40); White Blood Count 14.87 K/ul (4.8-10.8)
[2024-11-05 09:10] LABS: Anion Gap 6.0 (3-11); Blood Urea Nitrogen 12.0 mg/dl (6-23); Calcium 8.5 mg/dl (8.6-10.3); Carbon Dioxide 30.0 mmol/L (21-32); Chloride 101.0 mmol/L (98-107); Creatinine Clr Calc Pharmacy 51.4 ml/min; Glucose 177.0 mg/dl (70-99(Fasting)); Potassium 4.0 mmol/L (3.5-5.1); Sodium 137.0 mmol/L (136-145)
--- NOTE | 2024-11-05 12:30 | Hospitalist Progress Note ---
Date of Service November 05, 2024 Assessment & Plan (1) Acute hypoxemic respiratory failure: (2) Multifocal pneumonia: (3) Breast cancer, stage 4: (4) Metastases to the liver: (5) Memory loss: (6) Hypothyroidism: (7) Atrial fibrillation: (8) Diabetes mellitus, type 2: (9) Hx of cardiac pacemaker: (10) Gastroesophageal reflux disease: (11) Status post gastric bypass for obesity: (12) MRSA (methicillin resistant staph aureus) culture positive: (13) Chronic headaches: (14) Stress-induced cardiomyopathy: (15) Acute HFrEF (heart failure with reduced ejection fraction): (16) Pleural effusion: Plan 74yo female with metastatic breast cancer ( dx 2016 - localized L breast ca, with discovery of mets in 2019), afib on Eliquis, tachy-monica syndrome, DM2, hypothyroidism, anxiety she has hx of nacrotic use disorder , in 08/2024 hospitalized for pneumonia. Since that admission she has been staying at [facility] but has made little progress with such. on 10/25/2024, presented with dyspnea, hypoxia and found to has b/l pneumonia, pulmonary edema, pleural effusion #acute hypoxic respiratory failure, pleural effusion multifocal pneumonia repeat CXR (10/31) show multifocal PNA suspect this is relate to microaspiration, s/p zosyn, currently augmentin and doxycycyline WBC, initially trended down, but now trending up -CRP slightly elevated -will repeat chest x ray pain control lyrica 50mg BID. pain improved she's also on tramadol low dose morphine 2mg IV PRN pleural effusion family is deferring thoracocentesis pulmonary recommenced ongoing diuresis she's on po lasix 20mg BID #b/l pneumonia - -s/p zosyn/vanco Transition to PO Augmentin and Doxycyclin #stage 4 breast cancer with mets to the liver - deconditioning. -follows with Dr De Luna, oncology -off chemo since early 2024 -CT a/p in August showed progressive liver mets -will obtain repeat CT of a/p does not believe she's can tolerate chemotherapy given anorexia, marinol 5mg TID can increased to 10mg TID if needed switching from heart healthy to regular diet as patient preference #acute HFrEF 2nd to suspected stress-induced cardiomyopathy - -based on echo findings this admission , EF 30-35% -b/l pleural effusion -alternatively the cardiomyopathy could be ischemic in etiology -cont lasix 20 PO BID pulmonary and family defer thoracentesis #abdominal pain/flank pain/back pain - -secondary to extensive liver mets, severe constipation, other factors -tramadol not helpful; has been on this medicine for quite some time palliative care recommended trial of morphine daughter remained reluctant given patient hx of nacrotic use disorder #opiate-induced constipation - -CT a/p - r/o ileus, etc. -dulcolax/miralax -then needs maintenance with senna/colace/miralax -dulcolax suppos prn #atrial fibrillation on Eliquis - - diltiazem 360mg daily , eliquis -relatively contraindicated with the depressed LV function on echo this admission -follows with Dr Ramires; his notes state she was on meto succ in the past and it was stopped #T2DM - -pharmacy providing glycemic oversight - appreciate their assistance -cont basal-bolus insulins -last a1c was 8.4% in September #hypothyroidism --synthyroid #chronic headaches/memory loss/confusion - -start with CT head likely need brain MRI w/wo contrast #GERD - -cont PPI twice daily Deconditioning She needs maximum assistance PT recommends SNF Disposition: Pt recommends SNF, discharge when accepted Admission and Anticipated Discharge Date Admission Date: October 25, 2024 Subjective patient seen and examined, she appears comfortable, Review of Systems Review of Systems: All systems reviewed are negative, apart from the ones contained in the history. Physical Exam Physical Exam: The patient is awake, alert and oriented 3, well developed and well nourished, normocephalic and atraumatic, lying in bed and in no acute distress. HEENT--PERRL, EOMI, mucous membranes and oropharynx mildly dry Neck--supple. No JVD. No bruits. Thyroid normal, trachea midline, no adenopathy. Heart--normal S1 and S2. No murmurs, rubs or gallops. Lungs--reduced air entry on auscultation, crackles Abdomen--normal bowel sounds and soft. Extremities--no cyanosis or clubbing. No edema. Dermatologic--normal skin turgor, normal color, no abnormal lymph nodes, no rash. Neurologic--cranial nerves II through XII grossly intact. Rheumatologic--normal range of motion. Psychiatric--normal affect. Results & Data Results & Data Vital Signs (Past 12 Hours) Vital Signs O2 Del Method 11/05/24 07:39 Room Air PG Care Time/CCT Total # of Minutes Spent Total Time Spent with Patient: Total time spent is greater than 50% in coordination of care (as documented) at patient's floor/unit and/or counseling patient: Coding Level of Care Code 95924 SUB INP/OBS CARE 2/35MIN Diagnoses Acute hypoxemic respiratory failure J96.01 Multifocal pneumonia J18.9 Breast cancer, stage 4 C50.919 Metastases to the liver C78.7 Memory loss R41.3 Hypothyroidism E03.9 Atrial fibrillation I48.91 Diabetes mellitus, type 2 E11.9 Hx of cardiac pacemaker Z95.0 Gastroesophageal reflux disease, esophagitis presence not specified K21.9 Esophagitis presence: esophagitis presence not specified Status post gastric bypass for obesity Z98.84 MRSA (methicillin resistant staph aureus) culture positive Z22.322 Chronic headaches R51.9; G89.29 Stress-induced cardiomyopathy I51.81 Acute HFrEF (heart failure with reduced ejection fraction) I50.21 Pleural effusion J90 Time Spent (min) 35 (10) Gastroesophageal reflux disease Esophagitis presence: esophagitis presence not specified Qualified Code(s): K21.9 - Gastro-esophageal reflux disease without esophagitis
--- NOTE | 2024-11-05 13:17 | XRay Report ---
XR chest 1V portable CLINICAL HISTORY: follow up COMPARISON STUDY: 11/02/2024 FINDINGS: Stable pacemaker, right chest port, and left shoulder prosthesis. Stable cardiomegaly with pulmonary vascular congestion. Stable diffuse interstitial and faint patchy pulmonary opacities. Stab le left pleural effusion and consolidation at the left lung base. No pneumothorax. IMPRESSION: 1. Stable CHF with left pleural effusion and associated consolidation left lung base. 2. Stable scattered pulmonary opacities could represent pulmonary edema or pneumonia. ACT 112: Negative or not required by law. Electronically signed by: Spencer Berman M.D. 11/05/2024 1:16 PM
[2024-11-05] MEDS: DOCUSATE SODIUM/SENNA 50/8.6MG TAB PO PRN (20:11)
[2024-11-05] MEDS: APIXABAN 5 MG TABLET PO SCH (20:11)
[2024-11-06 07:17] LABS: Anion Gap 8.0 (3-11); Blood Urea Nitrogen 12.0 mg/dl (6-23); Calcium 8.6 mg/dl (8.6-10.3); Carbon Dioxide 30.0 mmol/L (21-32); Chloride 99.0 mmol/L (98-107); Creatinine Clr Calc Pharmacy 49.5 ml/min; Glucose 135.0 mg/dl (70-99(Fasting)); Potassium 3.5 mmol/L (3.5-5.1); Sodium 137.0 mmol/L (136-145)
--- NOTE | 2024-11-06 10:59 | Hospitalist Progress Note ---
Date of Service November 06, 2024 Assessment & Plan (1) Acute hypoxemic respiratory failure: (2) Multifocal pneumonia: (3) Breast cancer, stage 4: (4) Metastases to the liver: (5) Memory loss: (6) Hypothyroidism: (7) Atrial fibrillation: (8) Diabetes mellitus, type 2: (9) Hx of cardiac pacemaker: (10) Gastroesophageal reflux disease: (11) Status post gastric bypass for obesity: (12) MRSA (methicillin resistant staph aureus) culture positive: (13) Chronic headaches: (14) Stress-induced cardiomyopathy: (15) Acute HFrEF (heart failure with reduced ejection fraction): Plan 74yo female with metastatic breast cancer ( dx 2015 - localized L breast ca, with discovery of mets in 2019), afib on Eliquis, tachy-monica syndrome, DM2, hypothyroidism, anxiety she has hx of nacrotic use disorder , in 08/2024 hospitalized for pneumonia. Since that admission she has been staying at [facility] but has made little progress with such. on 10/25/2024, presented with dyspnea, hypoxia and found to has b/l pneumonia, pulmonary edema, pleural effusion #acute hypoxic respiratory failure, pleural effusion multifocal pneumonia repeat CXR x2 show multifocal PNA s/p zosyn, currently on augmentin and doxycycyline WBC, initially trended down, but now trending up -CRP slightly elevated, although procalcitonin is normaal -I suspect this leucocytosis and elevated CRP may be related to her worsening cancer with liver mets Leucocytosis I suspect this leucocytosis and elevated CRP may be related to her worsening cancer with liver mets Procalcitonin is normal pain control lyrica 50mg BID. pain improved she's also on tramadol low dose morphine 2mg IV PRN pleural effusion family is deferring thoracocentesis pulmonary recommenced ongoing diuresis she's on po lasix 20mg BID #b/l pneumonia - -s/p zosyn/vanco Transition to PO Augmentin and Doxycyclin #stage 4 breast cancer with mets to the liver - deconditioning. -follows with Dr De Luna, oncology -off chemo since early 2024 -CT a/p in August showed progressive liver mets -will obtain repeat CT of a/p does not believe she's can tolerate chemotherapy given anorexia, marinol 5mg TID can increased to 10mg TID if needed switching from heart healthy to regular diet as patient preference #acute HFrEF 2nd to suspected stress-induced cardiomyopathy - -based on echo findings this admission , EF 30-35% -b/l pleural effusion -alternatively the cardiomyopathy could be ischemic in etiology -cont lasix 20 PO BID pulmonary and family defer thoracentesis #abdominal pain/flank pain/back pain - -secondary to extensive liver mets, severe constipation, other factors -tramadol not helpful; has been on this medicine for quite some time palliative care recommended trial of morphine daughter remained reluctant given patient hx of nacrotic use disorder #opiate-induced constipation - -CT a/p - r/o ileus, etc. -dulcolax/miralax -then needs maintenance with senna/colace/miralax -dulcolax suppos prn #atrial fibrillation on Eliquis - - diltiazem 360mg daily , eliquis -relatively contraindicated with the depressed LV function on echo this admission -follows with Dr Ramires; his notes state she was on meto succ in the past and it was stopped #T2DM - -pharmacy providing glycemic oversight - appreciate their assistance -cont basal-bolus insulins -last a1c was 8.4% in September #hypothyroidism --synthyroid #chronic headaches/memory loss/confusion - -CT head did not show any acute pathology, only Cerebral atrophy and chronic small vessel ischemic disease #GERD - -cont PPI twice daily Deconditioning She needs maximum assistance PT recommends SNF Disposition: Pt recommends SNF, discharge when accepted Admission and Anticipated Discharge Date Admission Date: October 25, 2024 Subjective patient seen and examined, she appears comfortable, Review of Systems Review of Systems: All systems reviewed are negative, apart from the ones contained in the history. Physical Exam Physical Exam: The patient is awake, alert and oriented 3, well developed and well nourished, normocephalic and atraumatic, lying in bed and in no acute distress. HEENT--PERRL, EOMI, mucous membranes and oropharynx mildly dry Neck--supple. No JVD. No bruits. Thyroid normal, trachea midline, no adenopathy. Heart--normal S1 and S2. No murmurs, rubs or gallops. Lungs--reduced air entry on auscultation, crackles Abdomen--normal bowel sounds and soft. Extremities--no cyanosis or clubbing. No edema. Dermatologic--normal skin turgor, normal color, no abnormal lymph nodes, no rash. Neurologic--cranial nerves II through XII grossly intact. Rheumatologic--normal range of motion. Psychiatric--normal affect. Results & Data Results & Data Vital Signs (Past 12 Hours) Vital Signs Temp Pulse Resp BP Pulse Ox O2 Del Method 11/06/24 10:19 Room Air 11/06/24 08:02 98.6 F 60 18 160/83 H 60 L Room Air PG Care Time/CCT Total # of Minutes Spent Total Time Spent with Patient: Total time spent is greater than 50% in coordination of care (as documented) at patient's floor/unit and/or counseling patient: Coding Level of Care Code 45554 SUB INP/OBS CARE 2/35MIN Diagnoses Acute hypoxemic respiratory failure J96.01 Multifocal pneumonia J18.9 Breast cancer, stage 4 C50.919 Metastases to the liver C78.7 Memory loss R41.3 Hypothyroidism E03.9 Atrial fibrillation I48.91 Diabetes mellitus, type 2 E11.9 Hx of cardiac pacemaker Z95.0 Gastroesophageal reflux disease, esophagitis presence not specified K21.9 Esophagitis presence: esophagitis presence not specified Status post gastric bypass for obesity Z98.84 MRSA (methicillin resistant staph aureus) culture positive Z22.322 Chronic headaches R51.9; G89.29 Stress-induced cardiomyopathy I51.81 Acute HFrEF (heart failure with reduced ejection fraction) I50.21 Time Spent (min) 35 (10) Gastroesophageal reflux disease Esophagitis presence: esophagitis presence not specified Qualified Code(s): K21.9 - Gastro-esophageal reflux disease without esophagitis
[2024-11-06] MEDS ORDERED: Nursing to Pharmacy Communication SCH ×2 (16:00→21:00)
[2024-11-07 07:41] LABS: Anion Gap 6.0 (3-11); Calcium 8.8 mg/dl (8.6-10.3); Carbon Dioxide 32.0 mmol/L (21-32); Chloride 101.0 mmol/L (98-107); Potassium 3.5 mmol/L (3.5-5.1); Sodium 139.0 mmol/L (136-145)
[2024-11-07 07:46] LABS: Blood Urea Nitrogen 11.0 mg/dl (6-23); Creatinine Clr Calc Pharmacy 52.8 ml/min; Glucose 123.0 mg/dl (70-99(Fasting))
--- NOTE | 2024-11-07 13:13 | Hospitalist Progress Note ---
Date of Service November 07, 2024 Assessment & Plan (1) Acute hypoxemic respiratory failure: (2) Multifocal pneumonia: (3) Breast cancer, stage 4: (4) Metastases to the liver: (5) Memory loss: (6) Hypothyroidism: (7) Atrial fibrillation: (8) Diabetes mellitus, type 2: (9) Hx of cardiac pacemaker: (10) Gastroesophageal reflux disease: (11) Status post gastric bypass for obesity: (12) MRSA (methicillin resistant staph aureus) culture positive: (13) Chronic headaches: (14) Stress-induced cardiomyopathy: (15) Acute HFrEF (heart failure with reduced ejection fraction): Plan 74yo female with metastatic breast cancer ( dx 2015 - localized L breast ca, with discovery of mets in 2019), afib on Eliquis, tachy-monica syndrome, DM2, hypothyroidism, anxiety she has hx of nacrotic use disorder , in 08/2024 hospitalized for pneumonia. Since that admission she has been staying at [facility] but has made little progress with such. on 10/25/2024, presented with dyspnea, hypoxia and found to has b/l pneumonia, pulmonary edema, pleural effusion #acute hypoxic respiratory failure, pleural effusion multifocal pneumonia Repeat CXR x2 show multifocal PNA s/p zosyn, currently on augmentin and doxycycyline WBC, initially trended down, but now trending up -CRP slightly elevated, although procalcitonin is normaal -I suspect this leucocytosis and elevated CRP may be related to her worsening cancer with liver mets Leucocytosis I suspect this leucocytosis and elevated CRP may be related to her worsening cancer with liver mets Procalcitonin is normal pain control lyrica 50mg BID. pain improved she's also on tramadol low dose morphine 2mg IV PRN pleural effusion family is deferring thoracocentesis pulmonary recommenced ongoing diuresis she's on po lasix 20mg BID #b/l pneumonia - -s/p zosyn/vanco Transition to PO Augmentin and Doxycyclin #stage 4 breast cancer with mets to the liver - deconditioning. -follows with Dr De Luna, oncology -off chemo since early 2024 -CT a/p in August showed progressive liver mets -will obtain repeat CT of a/p does not believe she's can tolerate chemotherapy given anorexia, marinol 5mg TID can increased to 10mg TID if needed switching from heart healthy to regular diet as patient preference #acute HFrEF 2nd to suspected stress-induced cardiomyopathy - -based on echo findings this admission , EF 30-35% -b/l pleural effusion -alternatively the cardiomyopathy could be ischemic in etiology -cont lasix 20 PO BID pulmonary and family defer thoracentesis #abdominal pain/flank pain/back pain - -secondary to extensive liver mets, severe constipation, other factors -tramadol not helpful; has been on this medicine for quite some time palliative care recommended trial of morphine daughter remained reluctant given patient hx of nacrotic use disorder #opiate-induced constipation - -CT a/p - r/o ileus, etc. -dulcolax/miralax -then needs maintenance with senna/colace/miralax -dulcolax suppos prn #atrial fibrillation on Eliquis - - diltiazem 360mg daily , eliquis -relatively contraindicated with the depressed LV function on echo this admission -follows with Dr Ramires; his notes state she was on meto succ in the past and it was stopped #T2DM - -pharmacy providing glycemic oversight - appreciate their assistance -cont basal-bolus insulins -last a1c was 8.4% in September #hypothyroidism --synthyroid #chronic headaches/memory loss/confusion - -CT head did not show any acute pathology, only Cerebral atrophy and chronic small vessel ischemic disease #GERD - -cont PPI twice daily Deconditioning She needs maximum assistance PT recommends SNF Disposition: Pt recommends SNF, discharge when accepted Admission and Anticipated Discharge Date Admission Date: October 25, 2024 Subjective patient seen and examined, she appears comfortable, Review of Systems Review of Systems: All systems reviewed are negative, apart from the ones contained in the history. Physical Exam Physical Exam: The patient is awake, alert and oriented 3, well developed and well nourished, normocephalic and atraumatic, lying in bed and in no acute distress. HEENT--PERRL, EOMI, mucous membranes and oropharynx mildly dry Neck--supple. No JVD. No bruits. Thyroid normal, trachea midline, no adenopathy. Heart--normal S1 and S2. No murmurs, rubs or gallops. Lungs--reduced air entry on auscultation, crackles Abdomen--normal bowel sounds and soft. Extremities--no cyanosis or clubbing. No edema. Dermatologic--normal skin turgor, normal color, no abnormal lymph nodes, no rash. Neurologic--cranial nerves II through XII grossly intact. Rheumatologic--normal range of motion. Psychiatric--normal affect. Results & Data Results & Data Vital Signs (Past 12 Hours) Vital Signs Temp Pulse Resp BP Pulse Ox O2 Del Method 11/07/24 07:30 Room Air 11/07/24 07:27 97.9 F 60 16 173/72 H 94 Room Air PG Care Time/CCT Total # of Minutes Spent Total Time Spent with Patient: Total time spent is greater than 50% in coordination of care (as documented) at patient's floor/unit and/or counseling patient: Coding Level of Care Code 76806 SUB INP/OBS CARE 2/35MIN Diagnoses Acute hypoxemic respiratory failure J96.01 Multifocal pneumonia J18.9 Breast cancer, stage 4 C50.919 Metastases to the liver C78.7 Memory loss R41.3 Hypothyroidism E03.9 Atrial fibrillation I48.91 Diabetes mellitus, type 2 E11.9 Hx of cardiac pacemaker Z95.0 Gastroesophageal reflux disease, esophagitis presence not specified K21.9 Esophagitis presence: esophagitis presence not specified Status post gastric bypass for obesity Z98.84 MRSA (methicillin resistant staph aureus) culture positive Z22.322 Chronic headaches R51.9; G89.29 Stress-induced cardiomyopathy I51.81 Acute HFrEF (heart failure with reduced ejection fraction) I50.21 Time Spent (min) 35 (10) Gastroesophageal reflux disease Esophagitis presence: esophagitis presence not specified Qualified Code(s): K21.9 - Gastro-esophageal reflux disease without esophagitis
[2024-11-08] MEDS: FUROSEMIDE 40 MG/4 ML VIAL IV ONE (09:53)
--- NOTE | 2024-11-08 12:39 | Hospitalist Progress Note ---
Date of Service November 08, 2024 Assessment & Plan (1) Acute hypoxemic respiratory failure: (2) Multifocal pneumonia: (3) Breast cancer, stage 4: (4) Metastases to the liver: (5) Memory loss: (6) Hypothyroidism: (7) Atrial fibrillation: (8) Diabetes mellitus, type 2: (9) Hx of cardiac pacemaker: (10) Gastroesophageal reflux disease: (11) Status post gastric bypass for obesity: (12) MRSA (methicillin resistant staph aureus) culture positive: (13) Chronic headaches: (14) Stress-induced cardiomyopathy: (15) Acute HFrEF (heart failure with reduced ejection fraction): Plan 74yo female with metastatic breast cancer ( dx 2015 - localized L breast ca, with discovery of mets in 2019), afib on Eliquis, tachy-monica syndrome, DM2, hypothyroidism, anxiety she has hx of nacrotic use disorder , in 08/2024 hospitalized for pneumonia. Since that admission she has been staying at [facility] but has made little progress with such. on 10/25/2024, presented with dyspnea, hypoxia and found to has b/l pneumonia, pulmonary edema, pleural effusion #acute hypoxic respiratory failure, pleural effusion multifocal pneumonia Repeat CXR x2 show multifocal PNA s/p zosyn, currently on augmentin and doxycycyline WBC, initially trended down, but now trending up -CRP slightly elevated, although procalcitonin is normaal -I suspect this leucocytosis and elevated CRP may be related to her worsening cancer with liver mets Leucocytosis I suspect this leucocytosis and elevated CRP may be related to her worsening cancer with liver mets Procalcitonin is normal she has been afebrile pain control lyrica 50mg BID. pain improved she's also on tramadol low dose morphine 2mg IV PRN pleural effusion family is deferring thoracocentesis pulmonary recommenced ongoing diuresis she's on po lasix 20mg BID #b/l pneumonia - -s/p zosyn/vanco Transition to PO Augmentin and Doxycyclin #stage 4 breast cancer with mets to the liver - deconditioning. -follows with Dr De Luna, oncology -off chemo since early 2024 -CT a/p in August showed progressive liver mets -will obtain repeat CT of a/p does not believe she's can tolerate chemotherapy given anorexia, marinol 5mg TID can increased to 10mg TID if needed switching from heart healthy to regular diet as patient preference #acute HFrEF 2nd to suspected stress-induced cardiomyopathy - -based on echo findings this admission , EF 30-35% -b/l pleural effusion -alternatively the cardiomyopathy could be ischemic in etiology -cont lasix 20 PO BID pulmonary and family defer thoracentesis Left arm swelling will obtain US duplex to r/o DVT #abdominal pain/flank pain/back pain - -secondary to extensive liver mets, severe constipation, other factors -tramadol not helpful; has been on this medicine for quite some time palliative care recommended trial of morphine daughter remained reluctant given patient hx of nacrotic use disorder #opiate-induced constipation - -CT a/p - r/o ileus, etc. -dulcolax/miralax -then needs maintenance with senna/colace/miralax -dulcolax suppos prn #atrial fibrillation on Eliquis - - diltiazem 360mg daily , eliquis -relatively contraindicated with the depressed LV function on echo this admission -follows with Dr Ramires; his notes state she was on meto succ in the past and it was stopped #T2DM - -pharmacy providing glycemic oversight - appreciate their assistance -cont basal-bolus insulins -last a1c was 8.4% in September #hypothyroidism --synthyroid #chronic headaches/memory loss/confusion - -CT head did not show any acute pathology, only Cerebral atrophy and chronic small vessel ischemic disease #GERD - -cont PPI twice daily Deconditioning She needs maximum assistance PT recommends SNF Disposition: Pt recommends SNF, discharge when accepted Admission and Anticipated Discharge Date Admission Date: October 25, 2024 Subjective patient seen and examined, she appears comfortable, Review of Systems Review of Systems: All systems reviewed are negative, apart from the ones contained in the history. Physical Exam Physical Exam: The patient is awake, alert and oriented 3, well developed and well nourished, normocephalic and atraumatic, lying in bed and in no acute distress. HEENT--PERRL, EOMI, mucous membranes and oropharynx mildly dry Neck--supple. No JVD. No bruits. Thyroid normal, trachea midline, no adenopathy. Heart--normal S1 and S2. No murmurs, rubs or gallops. Lungs--reduced air entry on auscultation, crackles Abdomen--normal bowel sounds and soft. Extremities--no cyanosis or clubbing. No edema. Dermatologic--normal skin turgor, normal color, no abnormal lymph nodes, no rash. Neurologic--cranial nerves II through XII grossly intact. Rheumatologic--normal range of motion. Psychiatric--normal affect. Results & Data Results & Data Vital Signs (Past 12 Hours) Vital Signs O2 Del Method 11/08/24 09:00 Room Air PG Care Time/CCT Total # of Minutes Spent Total Time Spent with Patient: Total time spent is greater than 50% in coordination of care (as documented) at patient's floor/unit and/or counseling patient: Coding Level of Care Code 26083 SUB INP/OBS CARE 2/35MIN Diagnoses Acute hypoxemic respiratory failure J96.01 Multifocal pneumonia J18.9 Breast cancer, stage 4 C50.919 Metastases to the liver C78.7 Memory loss R41.3 Hypothyroidism E03.9 Atrial fibrillation I48.91 Diabetes mellitus, type 2 E11.9 Hx of cardiac pacemaker Z95.0 Gastroesophageal reflux disease, esophagitis presence not specified K21.9 Esophagitis presence: esophagitis presence not specified Status post gastric bypass for obesity Z98.84 MRSA (methicillin resistant staph aureus) culture positive Z22.322 Chronic headaches R51.9; G89.29 Stress-induced cardiomyopathy I51.81 Acute HFrEF (heart failure with reduced ejection fraction) I50.21 Time Spent (min) 35 (10) Gastroesophageal reflux disease Esophagitis presence: esophagitis presence not specified Qualified Code(s): K21.9 - Gastro-esophageal reflux disease without esophagitis
--- NOTE | 2024-11-08 14:52 | Ultrasound Report ---
ULTRASOUND LEFT UPPER EXTREMITY VENOUS CLINICAL HISTORY: Soft tissue swelling and pain. COMPARISON STUDY: 01/14/2024. TECHNIQUE: Real-time, grayscale, and color Doppler sonography of the deep veins of the left upper ext remity is performed. Compression and augmentation were utilized. FINDINGS: There is no sonographic evidence of deep venous thrombosis identified in the left upper ext remity. The left internal jugular, axillary, and brachial veins are patent and normally compressible. Normal venous waveforms and augmentation are seen within the left subclavian vein. The cephalic and basilic veins are clear. The visualized radial and ulnar veins are patent. Subcutaneous edema. IMPRESSION: There is no sonographic evidence of deep venous thrombosis identified in the left upper e xtremity. ACT 112: Negative or not required by law. Electronically signed by: Jeremy Batres M.D. 11/08/2024 2:51 PM
--- NOTE | 2024-11-09 11:38 | Hospitalist Progress Note ---
Date of Service November 09, 2024 Assessment & Plan (1) Acute hypoxemic respiratory failure: (2) Multifocal pneumonia: (3) Breast cancer, stage 4: (4) Metastases to the liver: (5) Memory loss: (6) Hypothyroidism: (7) Atrial fibrillation: (8) Diabetes mellitus, type 2: (9) Hx of cardiac pacemaker: (10) Gastroesophageal reflux disease: (11) Status post gastric bypass for obesity: (12) MRSA (methicillin resistant staph aureus) culture positive: (13) Chronic headaches: (14) Stress-induced cardiomyopathy: (15) Acute HFrEF (heart failure with reduced ejection fraction): Plan 74yo female with metastatic breast cancer ( dx 2016 - localized L breast ca, with discovery of mets in 2019), afib on Eliquis, tachy-monica syndrome, DM2, hypothyroidism, anxiety she has hx of nacrotic use disorder , in 08/2024 hospitalized for pneumonia. Since that admission she has been staying at [facility] but has made little progress with such. on 10/25/2024, presented with dyspnea, hypoxia and found to has b/l pneumonia, pulmonary edema, pleural effusion #acute hypoxic respiratory failure, pleural effusion Found to have multifocal pneumonia Repeat CXR x2 show multifocal PNA s/p zosyn, currently on PO augmentin and doxycycyline -CRP slightly elevated, although procalcitonin is normal -I suspect this leucocytosis and elevated CRP may be related to her worsening cancer with liver mets Leucocytosis I suspect this leucocytosis and elevated CRP may be related to her worsening cancer with liver mets Procalcitonin is normal she has been afebrile pain control lyrica 50mg BID. pain improved she's also on tramadol low dose morphine 2mg IV PRN pleural effusion family is deferring thoracocentesis pulmonary recommenced ongoing diuresis she's on po lasix 20mg BID #b/l pneumonia - -s/p zosyn/vanco Transition to PO Augmentin and Doxycyclin #stage 4 breast cancer with mets to the liver - deconditioning. -follows with Dr De Luna, oncology -off chemo since early 2024 -CT a/p in August showed progressive liver mets does not believe she's can tolerate chemotherapy given anorexia, marinol 5mg TID can increased to 10mg TID if needed switching from heart healthy to regular diet as patient preference #acute HFrEF 2nd to suspected stress-induced cardiomyopathy - -based on echo findings this admission , EF 30-35% -b/l pleural effusion -alternatively the cardiomyopathy could be ischemic in etiology -cont lasix 20 PO BID pulmonary and family defer thoracentesis Left arm swelling No DVT on US duplex #abdominal pain/flank pain/back pain - -secondary to extensive liver mets, severe constipation, other factors -tramadol not helpful; has been on this medicine for quite some time palliative care recommended trial of morphine daughter remained reluctant given patient hx of nacrotic use disorder #opiate-induced constipation - -CT a/p - r/o ileus, etc. -dulcolax/miralax -then needs maintenance with senna/colace/miralax -dulcolax suppos prn #atrial fibrillation on Eliquis - - diltiazem 360mg daily , eliquis -relatively contraindicated with the depressed LV function on echo this admission -follows with Dr Ramires; his notes state she was on meto succ in the past and it was stopped #T2DM - -pharmacy providing glycemic oversight - appreciate their assistance -cont basal-bolus insulins -last a1c was 8.4% in September #hypothyroidism --synthyroid #chronic headaches/memory loss/confusion - -CT head did not show any acute pathology, only Cerebral atrophy and chronic small vessel ischemic disease #GERD - -cont PPI twice daily Deconditioning She needs maximum assistance PT recommends SNF She ois comfort care , but daughter still wants her to get antibiotics and other treatments Disposition: Pt recommends SNF, discharge when accepted Admission and Anticipated Discharge Date Admission Date: October 25, 2024 Subjective patient seen and examined, she appears comfortable, Review of Systems Review of Systems: All systems reviewed are negative, apart from the ones contained in the history. Physical Exam Physical Exam: The patient is awake, alert and oriented 3, well developed and well nourished, normocephalic and atraumatic, lying in bed and in no acute distress. HEENT--PERRL, EOMI, mucous membranes and oropharynx mildly dry Neck--supple. No JVD. No bruits. Thyroid normal, trachea midline, no adenopathy. Heart--normal S1 and S2. No murmurs, rubs or gallops. Lungs--reduced air entry on auscultation, crackles Abdomen--normal bowel sounds and soft. Extremities--no cyanosis or clubbing. No edema. Dermatologic--normal skin turgor, normal color, no abnormal lymph nodes, no rash. Neurologic--cranial nerves II through XII grossly intact. Rheumatologic--normal range of motion. Psychiatric--normal affect. Results & Data Results & Data Vital Signs (Past 12 Hours) Vital Signs Temp Pulse Resp BP Pulse Ox O2 Del Method 11/09/24 09:02 Room Air 11/09/24 07:23 98.1 F 60 16 150/76 H 95 Room Air PG Care Time/CCT Total # of Minutes Spent Total Time Spent with Patient: Total time spent is greater than 50% in coordination of care (as documented) at patient's floor/unit and/or counseling patient: Coding Level of Care Code 22847 SUB INP/OBS CARE 2/35MIN Diagnoses Acute hypoxemic respiratory failure J96.01 Multifocal pneumonia J18.9 Breast cancer, stage 4 C50.919 Metastases to the liver C78.7 Memory loss R41.3 Hypothyroidism E03.9 Atrial fibrillation I48.91 Diabetes mellitus, type 2 E11.9 Hx of cardiac pacemaker Z95.0 Gastroesophageal reflux disease, esophagitis presence not specified K21.9 Esophagitis presence: esophagitis presence not specified Status post gastric bypass for obesity Z98.84 MRSA (methicillin resistant staph aureus) culture positive Z22.322 Chronic headaches R51.9; G89.29 Stress-induced cardiomyopathy I51.81 Acute HFrEF (heart failure with reduced ejection fraction) I50.21 Time Spent (min) 35 (10) Gastroesophageal reflux disease Esophagitis presence: esophagitis presence not specified Qualified Code(s): K21.9 - Gastro-esophageal reflux disease without esophagitis
--- NOTE | 2024-11-10 10:46 | Hospitalist Progress Note ---
Date of Service November 10, 2024 Assessment & Plan (1) Acute hypoxemic respiratory failure: (2) Multifocal pneumonia: (3) Breast cancer, stage 4: (4) Metastases to the liver: (5) Memory loss: (6) Hypothyroidism: (7) Atrial fibrillation: (8) Diabetes mellitus, type 2: (9) Hx of cardiac pacemaker: (10) Gastroesophageal reflux disease: (11) Status post gastric bypass for obesity: (12) MRSA (methicillin resistant staph aureus) culture positive: (13) Chronic headaches: (14) Stress-induced cardiomyopathy: (15) Acute HFrEF (heart failure with reduced ejection fraction): Plan 74yo female with metastatic breast cancer ( dx 2015 - localized L breast ca, with discovery of mets in 2019), afib on Eliquis, tachy-monica syndrome, DM2, hypothyroidism, anxiety she has hx of nacrotic use disorder , in 08/2024 hospitalized for pneumonia. Since that admission she has been staying at [facility] but has made little progress with such. on 10/25/2024, presented with dyspnea, hypoxia and found to has b/l pneumonia, pulmonary edema, pleural effusion #acute hypoxic respiratory failure, pleural effusion Found to have multifocal pneumonia Repeat CXR x2 show multifocal PNA s/p zosyn, currently on PO augmentin and doxycycyline (end date 11/11) -CRP slightly elevated, although procalcitonin is normal -I suspect this leucocytosis and elevated CRP may be related to her worsening cancer with liver mets -No lab draws for a few days now, she is technically comfort care only Leucocytosis I suspect this leucocytosis and elevated CRP may be related to her worsening cancer with liver mets Procalcitonin is normal she has been afebrile pain control lyrica 50mg BID. pain improved she's also on tramadol low dose morphine 2mg IV PRN pleural effusion family is deferring thoracocentesis pulmonary recommenced ongoing diuresis she's on po lasix 20mg BID #b/l pneumonia - -s/p zosyn/vanco Transition to PO Augmentin and Doxycyclin #stage 4 breast cancer with mets to the liver - deconditioning. -follows with Dr De Luna, oncology -off chemo since early 2024 -CT a/p in August showed progressive liver mets does not believe she's can tolerate chemotherapy given anorexia, marinol 5mg TID can increased to 10mg TID if needed switching from heart healthy to regular diet as patient preference #acute HFrEF 2nd to suspected stress-induced cardiomyopathy - -based on echo findings this admission , EF 30-35% -b/l pleural effusion -alternatively the cardiomyopathy could be ischemic in etiology -cont lasix 20 PO BID pulmonary and family defer thoracentesis Left arm swelling No DVT on US duplex #abdominal pain/flank pain/back pain - -secondary to extensive liver mets, severe constipation, other factors -tramadol not helpful; has been on this medicine for quite some time palliative care recommended trial of morphine daughter remained reluctant given patient hx of nacrotic use disorder Abd pain is better today #opiate-induced constipation - -CT a/p - r/o ileus, etc. -dulcolax/miralax -then needs maintenance with senna/colace/miralax -dulcolax suppos prn #atrial fibrillation on Eliquis - - diltiazem 360mg daily , eliquis -relatively contraindicated with the depressed LV function on echo this admission -follows with Dr Ramires; his notes state she was on meto succ in the past and it was stopped #T2DM - -pharmacy providing glycemic oversight - appreciate their assistance -cont basal-bolus insulins -last a1c was 8.4% in September #hypothyroidism --synthyroid #chronic headaches/memory loss/confusion - -CT head did not show any acute pathology, only Cerebral atrophy and chronic small vessel ischemic disease #GERD - -cont PPI twice daily Deconditioning She needs maximum assistance PT recommends SNF She is comfort care , but daughter still wants her to get antibiotics and other treatments Disposition: Pt recommends SNF, discharge when accepted Admission and Anticipated Discharge Date Admission Date: October 25, 2024 Subjective patient seen and examined, she appears comfortable, no new complaints today Review of Systems Review of Systems: All systems reviewed are negative, apart from the ones contained in the history. Physical Exam Physical Exam: The patient is awake, alert and oriented 3, well developed and well nourished, normocephalic and atraumatic, lying in bed and in no acute distress. HEENT--PERRL, EOMI, mucous membranes and oropharynx mildly dry Neck--supple. No JVD. No bruits. Thyroid normal, trachea midline, no adenopathy. Heart--normal S1 and S2. No murmurs, rubs or gallops. Lungs--reduced air entry on auscultation, crackles Abdomen--normal bowel sounds and soft. Extremities--no cyanosis or clubbing. No edema. Dermatologic--normal skin turgor, normal color, no abnormal lymph nodes, no rash. Neurologic--cranial nerves II through XII grossly intact. Rheumatologic--normal range of motion. Psychiatric--normal affect. Results & Data Results & Data Vital Signs (Past 12 Hours) Vital Signs Temp Pulse Resp BP Pulse Ox O2 Del Method 11/10/24 07:53 97.7 F 60 16 161/77 H 95 Room Air PG Care Time/CCT Total # of Minutes Spent Total Time Spent with Patient: Total time spent is greater than 50% in coordination of care (as documented) at patient's floor/unit and/or counseling patient: Coding Level of Care Code 69849 SUB INP/OBS CARE 2/35MIN Diagnoses Acute hypoxemic respiratory failure J96.01 Multifocal pneumonia J18.9 Breast cancer, stage 4 C50.919 Metastases to the liver C78.7 Memory loss R41.3 Hypothyroidism E03.9 Atrial fibrillation I48.91 Diabetes mellitus, type 2 E11.9 Hx of cardiac pacemaker Z95.0 Gastroesophageal reflux disease, esophagitis presence not specified K21.9 Esophagitis presence: esophagitis presence not specified Status post gastric bypass for obesity Z98.84 MRSA (methicillin resistant staph aureus) culture positive Z22.322 Chronic headaches R51.9; G89.29 Stress-induced cardiomyopathy I51.81 Acute HFrEF (heart failure with reduced ejection fraction) I50.21 Time Spent (min) 35 (10) Gastroesophageal reflux disease Esophagitis presence: esophagitis presence not specified Qualified Code(s): K21.9 - Gastro-esophageal reflux disease without esophagitis
--- NOTE | 2024-11-11 21:38 | Hospitalist Progress Note ---
Date of Service November 11, 2024 Assessment & Plan (1) Acute hypoxemic respiratory failure: (2) Multifocal pneumonia: (3) Breast cancer, stage 4: (4) Metastases to the liver: (5) Memory loss: (6) Hypothyroidism: (7) Atrial fibrillation: (8) Diabetes mellitus, type 2: (9) Hx of cardiac pacemaker: (10) Gastroesophageal reflux disease: (11) Status post gastric bypass for obesity: (12) MRSA (methicillin resistant staph aureus) culture positive: (13) Chronic headaches: (14) Stress-induced cardiomyopathy: (15) Acute HFrEF (heart failure with reduced ejection fraction): Plan 74yo female with metastatic breast cancer ( dx 2015 - localized L breast ca, with discovery of mets in 2019), afib on Eliquis, tachy-monica syndrome, DM2, hypothyroidism, anxiety she has hx of nacrotic use disorder , in 08/2024 hospitalized for pneumonia. Since that admission she has been staying at [facility] but has made little progress with such. 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 Leucocytosis I suspect this leucocytosis and elevated CRP may be related to her worsening cancer with liver mets Procalcitonin is normal she has been afebrile pain control lyrica 50mg BID. pain improved she's also on tramadol low dose morphine 2mg IV PRN pleural effusion family is deferring thoracocentesis pulmonary recommenced ongoing diuresis she's on po lasix 20mg BID #b/l pneumonia - -s/p zosyn/vanco Transition to PO Augmentin and Doxycyclin, will complete on 11/11 #stage 4 breast cancer with mets to the liver - deconditioning. -follows with Dr De Luna, oncology -off chemo since early 2024 -CT a/p in August showed progressive liver mets does not believe she's can tolerate chemotherapy given anorexia, marinol 5mg TID can increased to 10mg TID if needed switching from heart healthy to regular diet as patient preference #acute HFrEF 2nd to suspected stress-induced cardiomyopathy - -based on echo findings this admission , EF 30-35% -b/l pleural effusion -alternatively the cardiomyopathy could be ischemic in etiology -cont lasix 20 PO BID pulmonary and family defer thoracentesis Left arm swelling No DVT on US duplex #abdominal pain/flank pain/back pain - -secondary to extensive liver mets, severe constipation, other factors -tramadol not helpful; has been on this medicine for quite some time palliative care recommended trial of morphine daughter remained reluctant given patient hx of nacrotic use disorder Abd pain is better today #opiate-induced constipation - -CT a/p - r/o ileus, etc. -dulcolax/miralax -then needs maintenance with senna/colace/miralax -dulcolax suppos prn #atrial fibrillation on Eliquis - - diltiazem 360mg daily , eliquis -relatively contraindicated with the depressed LV function on echo this admission -follows with Dr Ramires; his notes state she was on meto succ in the past and it was stopped #T2DM - -pharmacy providing glycemic oversight - appreciate their assistance -cont basal-bolus insulins -last a1c was 8.4% in September #hypothyroidism --synthyroid #chronic headaches/memory loss/confusion - -CT head did not show any acute pathology, only Cerebral atrophy and chronic small vessel ischemic disease #GERD - -cont PPI twice daily Deconditioning She needs maximum assistance PT recommends SNF She is comfort care , but daughter still wants her to get antibiotics and other treatments Disposition: Pt recommends SNF, discharge when accepted Admission and Anticipated Discharge Date Admission Date: October 25, 2024 Subjective 74 yo male reports no new symptoms. She actually is feeling slightly better. Family is at bedside. Review of Systems Review of Systems: All systems reviewed & are unremarkable except as noted in HPI & below Physical Exam Physical Exam: The patient is awake, alert and oriented 3 HEENT--PERRL, EOMI Neck--supple. No JVD. Lungs--not using accessory muscles to breath Abdomen--normal bowel sounds and soft. Extremities--no cyanosis or clubbing. No edema. Rheumatologic--normal range of motion. Psychiatric--normal affect. PG Care Time/CCT Total # of Minutes Spent Total Time Spent with Patient: Total time spent is greater than 50% in coordination of care (as documented) at patient's floor/unit and/or counseling patient: Coding Level of Care Code 53535 SUB INP/OBS CARE 3/50MIN Diagnoses Acute hypoxemic respiratory failure J96.01 Multifocal pneumonia J18.9 Breast cancer, stage 4 C50.919 Metastases to the liver C78.7 Memory loss R41.3 Hypothyroidism E03.9 Atrial fibrillation I48.91 Diabetes mellitus, type 2 E11.9 Hx of cardiac pacemaker Z95.0 Gastroesophageal reflux disease, esophagitis presence not specified K21.9 Esophagitis presence: esophagitis presence not specified Status post gastric bypass for obesity Z98.84 MRSA (methicillin resistant staph aureus) culture positive Z22.322 Chronic headaches R51.9; G89.29 Stress-induced cardiomyopathy I51.81 Acute HFrEF (heart failure with reduced ejection fraction) I50.21 (10) Gastroesophageal reflux disease Esophagitis presence: esophagitis presence not specified Qualified Code(s): K21.9 - Gastro-esophageal reflux disease without esophagitis
--- NOTE | 2024-11-12 11:01 | Palliative Family Discussion ---
Date of Service November 11, 2024 Patient Directed Conference Time of Meetin:00 - 14:30 Participants: Jaimie Arguelles AGACNP Patient participation: no Patient Support System: spouse, adult daughters Other Healthcare Provider Participation: None Meeting Location: telephonic Advanced Directive available: no If yes, descriptors: The patient's surrogate medical decision maker participated: no Legally authorized health care proxy: spouse Rony Solorzano Other surrogate: n/a A family meeting was held for MUNIRA SOLORZANO. This meeting was necessary for determining the appropriate course of treatment. Topics of Discussion Topics of Discussion: 1. prognostication 2. goals of care 3. anticipatory guidance Other Content of Meetin. Opportunity given for participants to speak and ask questions. 2. Participants were assured of attention to patient comfort. 3. Reassurance provided. 4. Support was provided for informed, good-jamie decisions. 5. Emotions expressed by family were acknowledged and addressed. 6. Follow-up Outpatient: n/a 7. Plan of Care: DNR/DNI, pending SNF placement for ongoing hospic care On request of CM, made phone contact with pt's HCPOA/dtr Zakiya. Zakiya expressed concern that the pt appears to be improving and asked for input on prognosis for pt. Discussed the patient's extensive metastatic disease and current poor health/deconditioning/frailty precluding any further cancer directed treatments. We discussed that the pt's cancer is not curable and any cancer directed treatment would be palliative in nature. Helped Zakiya differentiate palliative from curative treatment. We discussed a prognosis of weeks to months, based on the following prognostic scores (calculation based on pt's current condition): Palliative Prognostic Index (PPI) Score: 8.5 (PPI > 6 = approx survival of three weeks. Sensitivity 80% / Specificity 85%.) Ravi CY, Diogo YS, Jimy HM, Roxi JS, Wilbert TL, Marci CY, Siddhartha CC, Destiny YC, Matthew JM, Carole JH, Horacio WC.Combination of initial palliative prognostic index and score change provides a better prognostic value for terminally ill cancer patients: a six- year observational cohort study https://www.ncbi.nlm.nih.gov/pubmed/59441368 . J Pain Symptom Manage. 2014;48(5):804-14. Palliative Prognostic Score (PaP - predicts 30 day survival probability in cancer and non cancer diagnoses): 11 = 30-day survival probability is 30-70% Candy Neal.Independent validation of Palliative Prognostic Score in terminally ill patients referred to a hospital-based palliative medicine consultation service https://www.ncbi.nlm.nih.gov/pubmed/22597428 . J Pain Symp Manage. 2001; 22(5):949883. Discussed that these prognostic scores are a general reflection of likely outcomes and that patient outcomes do vary. We discussed that pt prognosis can be driven by a multitude of factors including deconditioning, appetite, and activity level and the prediction given is most likely range given her current status. Zakiya shared that they continue to work with CM for placement in SNF for ongoing hospice care. Discussed changes pt may move through in the dying process including but not limited to sleeping more, disorientation when awake, restlessness, diminished senses/inability to respond to stimulus although ability to be aware of them remains intact longer, and changes in body temperatures, skin changes/mottling/cyanosis, respiratory pattern changes, and oral secretions. Family verbalized understanding. The goal is to assure a peaceful . Time Involved in Meeting: I spent 50 minutes overall addressing this case: 10 in medical data review/discussion with referring provider(s) and/or preparation for the visit 30 in direct interaction with the patient's daughter 30 Advance Care Planning/Goals of Care discussions as detailed above in note (must be >16min) 5 in subsequent review and synthesis of assessment and plan 5 in communicating with other providers regarding the patient's case: HELENA, BSRN and attending
--- NOTE | 2024-11-12 22:35 | Hospitalist Progress Note ---
Date of Service November 12, 2024 Assessment & Plan (1) Acute hypoxemic respiratory failure: (2) Multifocal pneumonia: (3) Breast cancer, stage 4: (4) Metastases to the liver: (5) Memory loss: (6) Hypothyroidism: (7) Atrial fibrillation: (8) Diabetes mellitus, type 2: (9) Hx of cardiac pacemaker: (10) Gastroesophageal reflux disease: (11) Status post gastric bypass for obesity: (12) MRSA (methicillin resistant staph aureus) culture positive: (13) Chronic headaches: (14) Stress-induced cardiomyopathy: (15) Acute HFrEF (heart failure with reduced ejection fraction): Plan 74yo female with metastatic breast cancer ( dx 2015 - localized L breast ca, with discovery of mets in 2019), afib on Eliquis, tachy-monica syndrome, DM2, hypothyroidism, anxiety she has hx of nacrotic use disorder , in 08/2024 hospitalized for pneumonia. Since that admission she has been staying at [facility] but has made little progress with such. 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 Leucocytosis I suspect this leucocytosis and elevated CRP may be related to her worsening cancer with liver mets Procalcitonin is normal she has been afebrile pain control lyrica 50mg BID. pain controlled she's also on tramadol low dose morphine 2mg IV PRN pleural effusion family is deferring thoracocentesis pulmonary recommenced ongoing diuresis she's on po lasix 20mg BID #b/l pneumonia - -s/p zosyn/vanco Transition to PO Augmentin and Doxycyclin, will complete on 11/11 #stage 4 breast cancer with mets to the liver - deconditioning. -follows with Dr De Luna, oncology -off chemo since early 2024 -CT a/p in August showed progressive liver mets does not believe she's can tolerate chemotherapy given anorexia, marinol 5mg TID can increased to 10mg TID if needed switching from heart healthy to regular diet as patient preference #acute HFrEF 2nd to suspected stress-induced cardiomyopathy - -based on echo findings this admission , EF 30-35% -b/l pleural effusion -alternatively the cardiomyopathy could be ischemic in etiology -cont lasix 20 PO BID pulmonary and family defer thoracentesis Left arm swelling No DVT on US duplex #abdominal pain/flank pain/back pain - -secondary to extensive liver mets, severe constipation, other factors -tramadol not helpful; has been on this medicine for quite some time palliative care recommended trial of morphine daughter remained reluctant given patient hx of nacrotic use disorder Abd pain is better today #opiate-induced constipation - -CT a/p - r/o ileus, etc. -dulcolax/miralax -then needs maintenance with senna/colace/miralax -dulcolax suppos prn #atrial fibrillation on Eliquis - - diltiazem 360mg daily , eliquis -relatively contraindicated with the depressed LV function on echo this admission -follows with Dr Ramires; his notes state she was on meto succ in the past and it was stopped #T2DM - -pharmacy providing glycemic oversight - appreciate their assistance -cont basal-bolus insulins -last a1c was 8.4% in September #hypothyroidism --synthyroid #chronic headaches/memory loss/confusion - -CT head did not show any acute pathology, only Cerebral atrophy and chronic small vessel ischemic disease #GERD - -cont PPI twice daily Deconditioning She needs maximum assistance PT recommends SNF She is comfort care , but daughter still wants her to get antibiotics and other treatments Disposition: Pt recommends SNF, discharge when accepted Admission and Anticipated Discharge Date Admission Date: October 25, 2024 Subjective Patient reports no new symptoms. Physical Exam Physical Exam: The patient is awake, alert and oriented 3 HEENT--PERRL, EOMI Neck--supple. No JVD. Lungs--not using accessory muscles to breath Abdomen--normal bowel sounds and soft. Extremities--no cyanosis or clubbing. No edema. Rheumatologic--normal range of motion. Psychiatric--normal affect. PG Care Time/CCT Total # of Minutes Spent Total Time Spent with Patient: Total time spent is greater than 50% in coordination of care (as documented) at patient's floor/unit and/or counseling patient: Coding Level of Care Code 12675 SUB INP/OBS CARE 2/35MIN Diagnoses Acute hypoxemic respiratory failure J96.01 Multifocal pneumonia J18.9 Breast cancer, stage 4 C50.919 Metastases to the liver C78.7 Memory loss R41.3 Hypothyroidism E03.9 Atrial fibrillation I48.91 Diabetes mellitus, type 2 E11.9 Hx of cardiac pacemaker Z95.0 Gastroesophageal reflux disease, esophagitis presence not specified K21.9 Esophagitis presence: esophagitis presence not specified Status post gastric bypass for obesity Z98.84 MRSA (methicillin resistant staph aureus) culture positive Z22.322 Chronic headaches R51.9; G89.29 Stress-induced cardiomyopathy I51.81 Acute HFrEF (heart failure with reduced ejection fraction) I50.21 (10) Gastroesophageal reflux disease Esophagitis presence: esophagitis presence not specified Qualified Code(s): K21.9 - Gastro-esophageal reflux disease without esophagitis
--- NOTE | 2024-11-13 23:00 | Hospitalist Progress Note ---
Date of Service November 13, 2024 Assessment & Plan (1) Acute hypoxemic respiratory failure: (2) Multifocal pneumonia: (3) Breast cancer, stage 4: (4) Metastases to the liver: (5) Memory loss: (6) Hypothyroidism: (7) Atrial fibrillation: (8) Diabetes mellitus, type 2: (9) Hx of cardiac pacemaker: (10) Gastroesophageal reflux disease: (11) Status post gastric bypass for obesity: (12) MRSA (methicillin resistant staph aureus) culture positive: (13) Chronic headaches: (14) Stress-induced cardiomyopathy: (15) Acute HFrEF (heart failure with reduced ejection fraction): Plan 74yo female with metastatic breast cancer ( dx 2015 - localized L breast ca, with discovery of mets in 2019), afib on Eliquis, tachy-monica syndrome, DM2, hypothyroidism, anxiety she has hx of nacrotic use disorder , in 08/2024 hospitalized for pneumonia. Since that admission she has been staying at [facility] but has made little progress with such. 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 Patient remains stable.. Leucocytosis I suspect this leucocytosis and elevated CRP may be related to her worsening cancer with liver mets Procalcitonin is normal she has been afebrile pain control lyrica 50mg BID. pain controlled she's also on tramadol low dose morphine 2mg IV PRN pleural effusion family is deferring thoracocentesis pulmonary recommenced ongoing diuresis she's on po lasix 20mg BID #b/l pneumonia - -s/p zosyn/vanco Transition to PO Augmentin and Doxycyclin, will complete on 11/11 #stage 4 breast cancer with mets to the liver - deconditioning. -follows with Dr De Luna, oncology -off chemo since early 2024 -CT a/p in August showed progressive liver mets does not believe she's can tolerate chemotherapy given anorexia, marinol 5mg TID can increased to 10mg TID if needed switching from heart healthy to regular diet as patient preference #acute HFrEF 2nd to suspected stress-induced cardiomyopathy - -based on echo findings this admission , EF 30-35% -b/l pleural effusion -alternatively the cardiomyopathy could be ischemic in etiology -cont lasix 20 PO BID pulmonary and family defer thoracentesis Left arm swelling No DVT on US duplex #abdominal pain/flank pain/back pain - -secondary to extensive liver mets, severe constipation, other factors -tramadol not helpful; has been on this medicine for quite some time palliative care recommended trial of morphine daughter remained reluctant given patient hx of nacrotic use disorder Abd pain is better today #opiate-induced constipation - -CT a/p - r/o ileus, etc. -dulcolax/miralax -then needs maintenance with senna/colace/miralax -dulcolax suppos prn #atrial fibrillation on Eliquis - - diltiazem 360mg daily , eliquis -relatively contraindicated with the depressed LV function on echo this admission -follows with Dr Ramires; his notes state she was on meto succ in the past and it was stopped #T2DM - -pharmacy providing glycemic oversight - appreciate their assistance -cont basal-bolus insulins -last a1c was 8.4% in September #hypothyroidism --synthyroid #chronic headaches/memory loss/confusion - -CT head did not show any acute pathology, only Cerebral atrophy and chronic small vessel ischemic disease #GERD - -cont PPI twice daily Deconditioning She needs maximum assistance PT recommends SNF She is comfort care , but daughter still wants her to get antibiotics and other treatments Disposition: Pt recommends SNF, discharge when accepted Admission and Anticipated Discharge Date Admission Date: October 25, 2024 Subjective 74 yo female reports no new symptoms. Physical Exam Physical Exam: The patient is awake, alert and oriented 3 HEENT--PERRL, EOMI Neck--supple. No JVD. Lungs--not using accessory muscles to breath Abdomen--normal bowel sounds and soft. Extremities--no cyanosis or clubbing. No edema. Rheumatologic--normal range of motion. Psychiatric--normal affect. Results & Data Results & Data Vital Signs (Past 12 Hours) Vital Signs Temp Pulse Resp BP Pulse Ox O2 Del Method 11/13/24 19:57 36.9 C 60 18 128/74 92 Room Air PG Care Time/CCT Total # of Minutes Spent Total Time Spent with Patient: Total time spent is greater than 50% in coordination of care (as documented) at patient's floor/unit and/or counseling patient: Coding Level of Care Code 05270 SUB INP/OBS CARE 2/35MIN Diagnoses Acute hypoxemic respiratory failure J96.01 Multifocal pneumonia J18.9 Breast cancer, stage 4 C50.919 Metastases to the liver C78.7 Memory loss R41.3 Hypothyroidism E03.9 Atrial fibrillation I48.91 Diabetes mellitus, type 2 E11.9 Hx of cardiac pacemaker Z95.0 Gastroesophageal reflux disease, esophagitis presence not specified K21.9 Esophagitis presence: esophagitis presence not specified Status post gastric bypass for obesity Z98.84 MRSA (methicillin resistant staph aureus) culture positive Z22.322 Chronic headaches R51.9; G89.29 Stress-induced cardiomyopathy I51.81 Acute HFrEF (heart failure with reduced ejection fraction) I50.21 (10) Gastroesophageal reflux disease Esophagitis presence: esophagitis presence not specified Qualified Code(s): K21.9 - Gastro-esophageal reflux disease without esophagitis
--- NOTE | 2024-11-14 10:03 | Hospitalist Progress Note ---
Date of Service November 14, 2024 Assessment & Plan (1) Acute hypoxemic respiratory failure: (2) Multifocal pneumonia: (3) Breast cancer, stage 4: (4) Metastases to the liver: (5) Memory loss: (6) Hypothyroidism: (7) Atrial fibrillation: (8) Diabetes mellitus, type 2: (9) Hx of cardiac pacemaker: (10) Gastroesophageal reflux disease: (11) Status post gastric bypass for obesity: (12) MRSA (methicillin resistant staph aureus) culture positive: (13) Chronic headaches: (14) Stress-induced cardiomyopathy: (15) Acute HFrEF (heart failure with reduced ejection fraction): Plan 74yo female with metastatic breast cancer ( dx 2015 - localized L breast ca, with discovery of mets in 2019), afib on Eliquis, tachy-monica syndrome, DM2, hypothyroidism, anxiety she has hx of nacrotic use disorder , in 08/2024 hospitalized for pneumonia. Since that admission she has been staying at [facility] but has made little progress with such. on 10/25/2024, presented with dyspnea, hypoxia and found to has b/l pneumonia, pulmonary edema, pleural effusion #acute hypoxic respiratory failure, pleural effusion #acute HFrEF 2nd to suspected stress-induced cardiomyopathy - Found to have multifocal pneumonia Repeat CXR x2 show multifocal PNA s/p zosyn, currently on PO augmentin and doxycycyline (end date 11/11) -CRP slightly elevated, although procalcitonin is normal -I suspect this leucocytosis and elevated CRP may be related to her worsening cancer with liver mets -No lab draws for a few days now, she is technically comfort care only; Family continues to agree with focus on comfort as shelter prognosis remains poor. -based on echo findings this admission , EF 30-35% -b/l pleural effusion -alternatively the cardiomyopathy could be ischemic in etiology -cont lasix 20 PO BID pulmonary and family defer thoracentesis Patient remains stable.. Leucocytosis I suspect this leucocytosis and elevated CRP may be related to her worsening cancer with liver mets Procalcitonin is normal she has been afebrile pain control currently with symptoms of neuropathic pain lyrica 50mg BID. pain controlled she's also on tramadol low dose morphine 2mg IV PRN #b/l pneumonia - -s/p zosyn/vanco Transition to PO Augmentin and Doxycyclin, will complete on 11/11 #stage 4 breast cancer with mets to the liver - deconditioning. -follows with Dr De Luna, oncology -off chemo since early 2024 -CT a/p in August showed progressive liver mets does not believe she's can tolerate chemotherapy given anorexia, marinol 5mg TID can increased to 10mg TID if needed switching from heart healthy to regular diet as patient preference Left arm swelling No DVT on US duplex #abdominal pain/flank pain/back pain - -secondary to extensive liver mets, severe constipation, other factors -tramadol not helpful; has been on this medicine for quite some time palliative care recommended trial of morphine daughter remained reluctant given patient hx of nacrotic use disorder Abd pain is better today #opiate-induced constipation - -CT a/p - r/o ileus, etc. -dulcolax/miralax -then needs maintenance with senna/colace/miralax -dulcolax suppos prn #atrial fibrillation on Eliquis - - diltiazem 360mg daily , eliquis -relatively contraindicated with the depressed LV function on echo this admission -follows with Dr Ramires; his notes state she was on meto succ in the past and it was stopped #T2DM - -pharmacy providing glycemic oversight - appreciate their assistance -cont basal-bolus insulins -last a1c was 8.4% in September #hypothyroidism --synthyroid #chronic headaches/memory loss/confusion - -CT head did not show any acute pathology, only Cerebral atrophy and chronic small vessel ischemic disease #GERD - -cont PPI twice daily Deconditioning She needs maximum assistance PT recommends SNF She is comfort care , but daughter still wants her to get antibiotics and other treatments Disposition: Pt recommends SNF, discharge when accepted Admission and Anticipated Discharge Date Admission Date: October 25, 2024 Subjective Patient complaining of right foot pain. Physical Exam 2 Physical Exam: The patient is awake, alert and oriented 3 HEENT--PERRL, EOMI Neck--supple. No JVD. Lungs--not using accessory muscles to breath Abdomen--normal bowel sounds and soft. Extremities--no cyanosis or clubbing. No edema. No lesions on sole or heel of right foot Rheumatologic--normal range of motion. Psychiatric--normal affect. Results & Data Results & Data Vital Signs (Past 12 Hours) Vital Signs Temp Pulse Resp BP Pulse Ox O2 Del Method 11/14/24 07:56 36.9 C 60 16 129/62 95 Room Air PG Care Time/CCT Total # of Minutes Spent Total Time Spent with Patient: Total time spent is greater than 50% in coordination of care (as documented) at patient's floor/unit and/or counseling patient: Coding Level of Care Code 88820 SUB INP/OBS CARE 3/50MIN Diagnoses Acute hypoxemic respiratory failure J96.01 Multifocal pneumonia J18.9 Breast cancer, stage 4 C50.919 Metastases to the liver C78.7 Memory loss R41.3 Hypothyroidism E03.9 Atrial fibrillation I48.91 Diabetes mellitus, type 2 E11.9 Hx of cardiac pacemaker Z95.0 Gastroesophageal reflux disease, esophagitis presence not specified K21.9 Esophagitis presence: esophagitis presence not specified Status post gastric bypass for obesity Z98.84 MRSA (methicillin resistant staph aureus) culture positive Z22.322 Chronic headaches R51.9; G89.29 Stress-induced cardiomyopathy I51.81 Acute HFrEF (heart failure with reduced ejection fraction) I50.21 (10) Gastroesophageal reflux disease Esophagitis presence: esophagitis presence not specified Qualified Code(s): K21.9 - Gastro-esophageal reflux disease without esophagitis
[2024-11-14] MEDS: HEPARIN 100 UNIT/ML 5ML FLUSH FLUSH PRN (11:44)
[2024-11-15] MEDS: ACETAMINOPHEN 325 MG TAB PO SCH (16:04)
[2024-11-15] MEDS: PREGABALIN 25 MG CAP PO SCH (16:04)
--- NOTE | 2024-11-15 22:37 | Hospitalist Progress Note ---
Date of Service November 15, 2024 Assessment & Plan (1) Acute hypoxemic respiratory failure: (2) Multifocal pneumonia: (3) Breast cancer, stage 4: (4) Metastases to the liver: (5) Memory loss: (6) Hypothyroidism: (7) Atrial fibrillation: (8) Diabetes mellitus, type 2: (9) Hx of cardiac pacemaker: (10) Gastroesophageal reflux disease: (11) Status post gastric bypass for obesity: (12) MRSA (methicillin resistant staph aureus) culture positive: (13) Chronic headaches: (14) Stress-induced cardiomyopathy: (15) Acute HFrEF (heart failure with reduced ejection fraction): Plan 74yo female with metastatic breast cancer ( dx 2015 - localized L breast ca, with discovery of mets in 2019), afib on Eliquis, tachy-monica syndrome, DM2, hypothyroidism, anxiety she has hx of nacrotic use disorder , in 08/2024 hospitalized for pneumonia. Since that admission she has been staying at [facility] but has made little progress with such. on 10/25/2024, presented with dyspnea, hypoxia and found to has b/l pneumonia, pulmonary edema, pleural effusion #acute hypoxic respiratory failure, pleural effusion #acute HFrEF 2nd to suspected stress-induced cardiomyopathy - Found to have multifocal pneumonia Repeat CXR x2 show multifocal PNA s/p zosyn, currently on PO augmentin and doxycycyline (end date 11/11) -CRP slightly elevated, although procalcitonin is normal -I suspect this leucocytosis and elevated CRP may be related to her worsening cancer with liver mets -No lab draws for a few days now, she is technically comfort care only; Family continues to agree with focus on comfort as [facility]dc prognosis remains poor. -based on echo findings this admission , EF 30-35% -b/l pleural effusion -alternatively the cardiomyopathy could be ischemic in etiology -cont lasix 20 PO BID pulmonary and family defer thoracentesis Patient remains stable.. Leucocytosis I suspect this leucocytosis and elevated CRP may be related to her worsening cancer with liver mets Procalcitonin is normal she has been afebrile pain control currently with symptoms of neuropathic pain lyrica 50mg BID to TID. pain controlled she's also on tramadol low dose morphine 2mg IV PRN Added tylenol and increased lyrica to TID #b/l pneumonia - -s/p zosyn/vanco Transition to PO Augmentin and Doxycyclin, will complete on 11/11 #stage 4 breast cancer with mets to the liver - deconditioning. -follows with Dr De Luna, oncology -off chemo since early 2024 -CT a/p in August showed progressive liver mets does not believe she's can tolerate chemotherapy given anorexia, marinol 5mg TID can increased to 10mg TID if needed switching from heart healthy to regular diet as patient preference Left arm swelling No DVT on US duplex #abdominal pain/flank pain/back pain - -secondary to extensive liver mets, severe constipation, other factors -tramadol not helpful; has been on this medicine for quite some time palliative care recommended trial of morphine daughter remained reluctant given patient hx of nacrotic use disorder Abd pain is better today #opiate-induced constipation - -CT a/p - r/o ileus, etc. -dulcolax/miralax -then needs maintenance with senna/colace/miralax -dulcolax suppos prn #atrial fibrillation on Eliquis - - diltiazem 360mg daily , eliquis -relatively contraindicated with the depressed LV function on echo this admission -follows with Dr Ramires; his notes state she was on meto succ in the past and it was stopped #T2DM - -pharmacy providing glycemic oversight - appreciate their assistance -cont basal-bolus insulins -last a1c was 8.4% in September #hypothyroidism --synthyroid #chronic headaches/memory loss/confusion - -CT head did not show any acute pathology, only Cerebral atrophy and chronic small vessel ischemic disease #GERD - -cont PPI twice daily Deconditioning She needs maximum assistance PT recommends SNF She is comfort care , but daughter still wants her to get antibiotics and other treatments Disposition: Pt recommends SNF, discharge when accepted Admission and Anticipated Discharge Date Admission Date: October 25, 2024 Subjective 74 yo female reports still having pain in her foot. Physical Exam Physical Exam: The patient is awake, alert and oriented 3 HEENT--PERRL, EOMI Neck--supple. No JVD. Lungs--not using accessory muscles to breath Abdomen--normal bowel sounds and soft. Extremities--no cyanosis or clubbing. No edema. No lesions on sole or heel of right foot Rheumatologic--normal range of motion. Psychiatric--normal affect. PG Care Time/CCT Total # of Minutes Spent Total Time Spent with Patient: Total time spent is greater than 50% in coordination of care (as documented) at patient's floor/unit and/or counseling patient: Coding Level of Care Code 48498 SUB INP/OBS CARE 3/50MIN Diagnoses Acute hypoxemic respiratory failure J96.01 Multifocal pneumonia J18.9 Breast cancer, stage 4 C50.919 Metastases to the liver C78.7 Memory loss R41.3 Hypothyroidism E03.9 Atrial fibrillation I48.91 Diabetes mellitus, type 2 E11.9 Hx of cardiac pacemaker Z95.0 Gastroesophageal reflux disease, esophagitis presence not specified K21.9 Esophagitis presence: esophagitis presence not specified Status post gastric bypass for obesity Z98.84 MRSA (methicillin resistant staph aureus) culture positive Z22.322 Chronic headaches R51.9; G89.29 Stress-induced cardiomyopathy I51.81 Acute HFrEF (heart failure with reduced ejection fraction) I50.21 (10) Gastroesophageal reflux disease Esophagitis presence: esophagitis presence not specified Qualified Code(s): K21.9 - Gastro-esophageal reflux disease without esophagitis
[2024-11-16] MEDS: ONDANSETRON INJ 2 MG/ML 2 ML VIAL IV PRN (13:06)
--- NOTE | 2024-11-16 23:13 | Hospitalist Progress Note ---
Date of Service November 16, 2024 Assessment & Plan (1) Acute hypoxemic respiratory failure: (2) Multifocal pneumonia: (3) Breast cancer, stage 4: (4) Metastases to the liver: (5) Memory loss: (6) Hypothyroidism: (7) Atrial fibrillation: (8) Diabetes mellitus, type 2: (9) Hx of cardiac pacemaker: (10) Gastroesophageal reflux disease: (11) Status post gastric bypass for obesity: (12) MRSA (methicillin resistant staph aureus) culture positive: (13) Chronic headaches: (14) Stress-induced cardiomyopathy: (15) Acute HFrEF (heart failure with reduced ejection fraction): Plan 74yo female with metastatic breast cancer ( dx 2015 - localized L breast ca, with discovery of mets in 2019), afib on Eliquis, tachy-monica syndrome, DM2, hypothyroidism, anxiety she has hx of nacrotic use disorder , in 08/2024 hospitalized for pneumonia. Since that admission she has been staying at [facility] but has made little progress with such. on 10/25/2024, presented with dyspnea, hypoxia and found to has b/l pneumonia, pulmonary edema, pleural effusion #acute hypoxic respiratory failure, pleural effusion #acute HFrEF 2nd to suspected stress-induced cardiomyopathy - Found to have multifocal pneumonia Repeat CXR x2 show multifocal PNA s/p zosyn, currently on PO augmentin and doxycycyline (end date 11/11) -CRP slightly elevated, although procalcitonin is normal -I suspect this leucocytosis and elevated CRP may be related to her worsening cancer with liver mets -No lab draws for a few days now, she is technically comfort care only; Family continues to agree with focus on comfort as prison prognosis remains poor. -based on echo findings this admission , EF 30-35% -b/l pleural effusion -alternatively the cardiomyopathy could be ischemic in etiology -cont lasix 20 PO BID pulmonary and family defer thoracentesis Patient remains stable. Leucocytosis I suspect this leucocytosis and elevated CRP may be related to her worsening cancer with liver mets Procalcitonin is normal she has been afebrile pain control currently with improved symptoms of neuropathic pain lyrica 50mg TID since 11/15. pain more controlled she's also on tramadol low dose morphine 2mg IV PRN #b/l pneumonia - -s/p zosyn/vanco Transition to PO Augmentin and Doxycyclin, will complete on 11/11 #stage 4 breast cancer with mets to the liver - deconditioning. -follows with Dr De Luna, oncology -off chemo since early 2024 -CT a/p in August showed progressive liver mets does not believe she's can tolerate chemotherapy given anorexia, marinol 5mg TID can increased to 10mg TID if needed switching from heart healthy to regular diet as patient preference Left arm swelling No DVT on US duplex #abdominal pain/flank pain/back pain - -secondary to extensive liver mets, severe constipation, other factors -tramadol not helpful; has been on this medicine for quite some time palliative care recommended trial of morphine daughter remained reluctant given patient hx of nacrotic use disorder Abd pain is better today #opiate-induced constipation - -CT a/p - r/o ileus, etc. -dulcolax/miralax -then needs maintenance with senna/colace/miralax -dulcolax suppos prn #atrial fibrillation on Eliquis - - diltiazem 360mg daily , eliquis -relatively contraindicated with the depressed LV function on echo this admission -follows with Dr Ramires; his notes state she was on meto succ in the past and it was stopped #T2DM - -pharmacy providing glycemic oversight - appreciate their assistance -cont basal-bolus insulins -last a1c was 8.4% in September #hypothyroidism --synthyroid #chronic headaches/memory loss/confusion - -CT head did not show any acute pathology, only Cerebral atrophy and chronic small vessel ischemic disease #GERD - -cont PPI twice daily Deconditioning She needs maximum assistance PT recommends SNF She is comfort care , but daughter still wants her to get antibiotics and other treatments Disposition: Pt recommends SNF, discharge when accepted Admission and Anticipated Discharge Date Admission Date: October 25, 2024 Subjective Patient reports her pain is improved. Physical Exam Physical Exam: The patient is awake, alert and oriented 3 HEENT--PERRL, EOMI Neck--supple. No JVD. Lungs--not using accessory muscles to breath Abdomen--normal bowel sounds and soft. Extremities--no cyanosis or clubbing. No edema. No lesions on sole or heel of right foot Rheumatologic--normal range of motion. Psychiatric--normal affect. Results & Data Results & Data Vital Signs (Past 12 Hours) Vital Signs Pulse Resp BP Pulse Ox O2 Del Method 11/16/24 19:52 66 18 173/76 H 94 Room Air PG Care Time/CCT Total # of Minutes Spent Total Time Spent with Patient: Total time spent is greater than 50% in coordination of care (as documented) at patient's floor/unit and/or counseling patient: Coding Level of Care Code 07619 SUB INP/OBS CARE 2/35MIN Diagnoses Acute hypoxemic respiratory failure J96.01 Multifocal pneumonia J18.9 Breast cancer, stage 4 C50.919 Metastases to the liver C78.7 Memory loss R41.3 Hypothyroidism E03.9 Atrial fibrillation I48.91 Diabetes mellitus, type 2 E11.9 Hx of cardiac pacemaker Z95.0 Gastroesophageal reflux disease, esophagitis presence not specified K21.9 Esophagitis presence: esophagitis presence not specified Status post gastric bypass for obesity Z98.84 MRSA (methicillin resistant staph aureus) culture positive Z22.322 Chronic headaches R51.9; G89.29 Stress-induced cardiomyopathy I51.81 Acute HFrEF (heart failure with reduced ejection fraction) I50.21 (10) Gastroesophageal reflux disease Esophagitis presence: esophagitis presence not specified Qualified Code(s): K21.9 - Gastro-esophageal reflux disease without esophagitis
--- NOTE | 2024-11-17 08:54 | Hospitalist Progress Note ---
Date of Service November 17, 2024 Assessment & Plan (1) Acute hypoxemic respiratory failure: (2) Multifocal pneumonia: (3) Breast cancer, stage 4: (4) Metastases to the liver: (5) Memory loss: (6) Hypothyroidism: (7) Atrial fibrillation: (8) Diabetes mellitus, type 2: (9) Hx of cardiac pacemaker: (10) Gastroesophageal reflux disease: (11) Status post gastric bypass for obesity: (12) MRSA (methicillin resistant staph aureus) culture positive: (13) Chronic headaches: (14) Stress-induced cardiomyopathy: (15) Acute HFrEF (heart failure with reduced ejection fraction): Plan 74yo female with metastatic breast cancer ( dx 2015 - localized L breast ca, with discovery of mets in 2019), afib on Eliquis, tachy-monica syndrome, DM2, hypothyroidism, anxiety she has hx of nacrotic use disorder , in 08/2024 hospitalized for pneumonia. Since that admission she has been staying at [facility] but has made little progress with such. on 10/25/2024, presented with dyspnea, hypoxia and found to has b/l pneumonia, pulmonary edema, pleural effusion #acute hypoxic respiratory failure, pleural effusion #acute HFrEF 2nd to suspected stress-induced cardiomyopathy - Found to have multifocal pneumonia Repeat CXR x2 show multifocal PNA s/p zosyn, currently on PO augmentin and doxycycyline (end date 11/11) -CRP slightly elevated, although procalcitonin is normal -I suspect this leucocytosis and elevated CRP may be related to her worsening cancer with liver mets -No lab draws for a few days now, she is technically comfort care only; Family continues to agree with focus on comfort as assisted prognosis remains poor. -based on echo findings this admission , EF 30-35% -b/l pleural effusion -alternatively the cardiomyopathy could be ischemic in etiology -cont lasix 20 PO BID pulmonary and family defer thoracentesis Patient remains stable. Leucocytosis I suspect this leucocytosis and elevated CRP may be related to her worsening cancer with liver mets Procalcitonin is normal she has been afebrile pain control currently with improved symptoms of neuropathic pain lyrica 50mg TID since 11/15. pain more controlled she's also on tramadol low dose morphine 2mg IV PRN #b/l pneumonia - -s/p zosyn/vanco Transition to PO Augmentin and Doxycyclin, will complete on 11/11 #stage 4 breast cancer with mets to the liver - deconditioning. -follows with Dr De Luna, oncology -off chemo since early 2024 -CT a/p in August showed progressive liver mets does not believe she's can tolerate chemotherapy given anorexia, marinol 5mg TID can increased to 10mg TID if needed switching from heart healthy to regular diet as patient preference Left arm swelling No DVT on US duplex #abdominal pain/flank pain/back pain - -secondary to extensive liver mets, severe constipation, other factors -tramadol not helpful; has been on this medicine for quite some time palliative care recommended trial of morphine daughter remained reluctant given patient hx of nacrotic use disorder Abd pain is better today #opiate-induced constipation - -CT a/p - r/o ileus, etc. -dulcolax/miralax -then needs maintenance with senna/colace/miralax -dulcolax suppos prn #atrial fibrillation on Eliquis - - diltiazem 360mg daily , eliquis -relatively contraindicated with the depressed LV function on echo this admission -follows with Dr Ramires; his notes state she was on meto succ in the past and it was stopped #T2DM - -pharmacy providing glycemic oversight - appreciate their assistance -cont basal-bolus insulins -last a1c was 8.4% in September #hypothyroidism --synthyroid #chronic headaches/memory loss/confusion - -CT head did not show any acute pathology, only Cerebral atrophy and chronic small vessel ischemic disease #GERD - -cont PPI twice daily Deconditioning She needs maximum assistance PT recommends SNF She is comfort care , but daughter still wants her to get antibiotics and other treatments Disposition: Pt recommends SNF, discharge when accepted Admission and Anticipated Discharge Date Admission Date: October 25, 2024 Subjective Overall pain is improved frustrated about still being here sleeping on/off thru the day staff are aware of right hip pain Physical Exam Physical Exam: Pulm exam is significantly abnormal with dullness at both bases but significantly dull about assisted up her left lung field Extremities are with trace to 1+ edema bilaterally Results & Data Results & Data Vital Signs (Past 12 Hours) Vital Signs Temp Pulse Resp BP Pulse Ox O2 Del Method 11/17/24 07:19 Room Air 11/17/24 07:11 97.9 F 61 16 155/80 H 92 Room Air PG Care Time/CCT Total # of Minutes Spent Total Time Spent with Patient: Total time spent is greater than 50% in coordination of care (as documented) at patient's floor/unit and/or counseling patient: Coding Level of Care Code 73872 SUB INP/OBS CARE 2/35MIN Diagnoses Acute hypoxemic respiratory failure J96.01 Multifocal pneumonia J18.9 Breast cancer, stage 4 C50.919 Metastases to the liver C78.7 Memory loss R41.3 Hypothyroidism E03.9 Atrial fibrillation I48.91 Diabetes mellitus, type 2 E11.9 Hx of cardiac pacemaker Z95.0 Gastroesophageal reflux disease, esophagitis presence not specified K21.9 Esophagitis presence: esophagitis presence not specified Status post gastric bypass for obesity Z98.84 MRSA (methicillin resistant staph aureus) culture positive Z22.322 Chronic headaches R51.9; G89.29 Stress-induced cardiomyopathy I51.81 Acute HFrEF (heart failure with reduced ejection fraction) I50.21 (10) Gastroesophageal reflux disease Esophagitis presence: esophagitis presence not specified Qualified Code(s): K21.9 - Gastro-esophageal reflux disease without esophagitis
[2024-11-18] MEDS: MoRPHine SULFATE 10 MG/0.5 ML UDP PO PRN (05:44)
--- NOTE | 2024-11-18 17:42 | Hospitalist Progress Note ---
Date of Service November 18, 2024 Assessment & Plan (1) Acute hypoxemic respiratory failure: (2) Multifocal pneumonia: (3) Breast cancer, stage 4: (4) Metastases to the liver: (5) Memory loss: (6) Hypothyroidism: (7) Atrial fibrillation: (8) Diabetes mellitus, type 2: (9) Hx of cardiac pacemaker: (10) Gastroesophageal reflux disease: (11) Status post gastric bypass for obesity: (12) MRSA (methicillin resistant staph aureus) culture positive: (13) Chronic headaches: (14) Stress-induced cardiomyopathy: (15) Acute HFrEF (heart failure with reduced ejection fraction): (16) Pleural effusion: Plan 74yo female with metastatic breast cancer (initial dx 2015 - localized L breast ca, with discovery of mets in 2019), afib on Eliquis, tachy-monica syndrome, DM2, hypothyroidism, dyslipidemia, anxiety, and admission in 08/2024 for pneumonia. Since that admission she had been staying at [facility] for rehab but has made little progress with such. Presented to ED on 10/25/24 with dyspnea. She was tachypneic, tachycardic, and hypoxic. Initial imaging with pulmonary edema, b/l effusions, and b/l pneumonia. #acute hypoxic respiratory failure - -multifactorial: -b/l pneumonia -acute CHF with pulm edema/effusions -cannot rule out progressive breast cancer with mets to the lungs / lymphangitic spread -completed full course of antibiotics for pneumonia -has received diuresis throughout her stay -due to transitioning to comfort care no thoracentesis was performed during the visit #b/l pneumonia - -s/p full treatment course #abdominal pain - -2nd to constipation/impaction? -2nd to ileus? -start with KUB x-ray and go from there -check LFTs am -check lipase am #stage 4 breast cancer with mets to the liver - -follows with Dr De Luna, cancer care clinic -has not had chemo since early 2024 -CT a/p in August showed progressive liver mets -CT this admission again showed progressive liver mets -palliative care consulted; numerous discussions with pt's family -ultimate plan is to SNF with hospice -for now quasi-comfort care pathway (but continuing with meds and basic care for now) #acute HFrEF 2nd to suspected stress-induced cardiomyopathy - -based on echo findings this admission; EF 35-40% -alternatively the cardiomyopathy could be ischemic in etiology -not a candidate for catheterization -cont lasix 20mg BID -looks fairly euvolemic today -defer on initiating Entresto, beta alec, etc due to transition to hospice #opiate-induced constipation - -is not on a consistent bowel regimen -check KUB x-ray and go from there #atrial fibrillation on Eliquis - -patient is on diltiazem 360mg daily and Eliquis -when she transitions to hospice would stop Eliquis #T2DM - -remains on small amount of once daily lantus -would stop such upon transition to hospice #hypothyroidism - -cont synthroid for now #chronic headaches/memory loss/confusion - -CT head early in admission negative #b/l pleural effusions - -see discussion above #GERD - -add back PPI or H2 alec if needed need to sort out disposition will try to update patient's family tomorrow Admission and Anticipated Discharge Date Admission Date: October 25, 2024 Subjective patient was talking to someone not in the room as I was placing my gown on she asked me "who are you?!" when I came into the room she continued to intermittently look in the corner and whisper c/o abdominal pain could not tell me when it started per staff, however, she ate a good breakfast and good lunch staff have not noted any other complaints no stool since 11/16 per flowsheets no vomiting per staff Review of Systems Review of Systems: Unobtainable due to cognitive status Physical Exam Physical Exam: gen - confused, hallucinating (visual/auditory), laying in bed, spilling food all over her gown skin - generalized pallor heart - RRR, s1 s2 lungs - decreased BS b/l bases, some crackles especially left anterior chest abd - soft, liver edge palpable, tender central abdomen to palpation, BS+ ext - no edema; pulses b/l feet 1-2+ psych - a/o x 1 - but knew it was November 19 tomorrow surprisingly Results & Data Results & Data Vital Signs (Past 12 Hours) Vital Signs Temp Pulse Resp BP Pulse Ox O2 Del Method 11/18/24 08:14 Room Air 11/18/24 07:44 36.4 C L 60 16 143/81 H 93 Room Air PG Care Time/CCT Total # of Minutes Spent Total Time Spent with Patient: Total time spent is greater than 50% in coordination of care (as documented) at patient's floor/unit and/or counseling patient: Coding Level of Care Code 73242 SUB INP/OBS CARE 2/35MIN Diagnoses Acute hypoxemic respiratory failure J96.01 Multifocal pneumonia J18.9 Breast cancer, stage 4 C50.919 Metastases to the liver C78.7 Memory loss R41.3 Hypothyroidism E03.9 Atrial fibrillation I48.91 Diabetes mellitus, type 2 E11.9 Hx of cardiac pacemaker Z95.0 Gastroesophageal reflux disease, esophagitis presence not specified K21.9 Esophagitis presence: esophagitis presence not specified Status post gastric bypass for obesity Z98.84 MRSA (methicillin resistant staph aureus) culture positive Z22.322 Chronic headaches R51.9; G89.29 Stress-induced cardiomyopathy I51.81 Acute HFrEF (heart failure with reduced ejection fraction) I50.21 Pleural effusion J90 (10) Gastroesophageal reflux disease Esophagitis presence: esophagitis presence not specified Qualified Code(s): K21.9 - Gastro-esophageal reflux disease without esophagitis
--- NOTE | 2024-11-18 21:07 | XRay Report ---
INDICATION: Abdominal pain TECHNIQUE: Portable supine upright view radiograph of the abdomen was obtained. COMPARISON: Abdominal pelvic CT October 28, 2024. FINDINGS: Moderate fecal load over the large bowel that is mildly gas-distended. Mildly air distended loops of small bowel are also likely present. No obvious free air in these radiographs. Surgical clips over the right upper quadrant of the abdomen. Suture material over the left upper quadrant of the abdomen. Lumbosacral spinal fusion and bilateral hip arthroplasty. Partially included cardiac pacemaker lead. IMPRESSION: Moderate fecal load over the large bowel suggesting constipation. Mildly air distended loops of small bowel may be present as well. The findings may favor constipation and possibly ileus although if there is concern for a more worrisome process such as mechanical obstruction, CT may be acquired. Electronically signed by Fabián Patterson 11-18-2024 9:06 PM
[2024-11-19 07:29] LABS: Alanine Aminotransferase 16.0 U/L (7-52); Alkaline Phosphatase 236.0 U/L (34-104); Anion Gap 7.0 (3-11); Bilirubin,Total 0.4 mg/dl (0.2-1.0); Blood Urea Nitrogen 16.0 mg/dl (6-23); Calcium 8.2 mg/dl (8.6-10.3); Carbon Dioxide 30.0 mmol/L (21-32); Chloride 100.0 mmol/L (98-107); Creatinine Clr Calc Pharmacy 54.2 ml/min; Glucose 173.0 mg/dl (70-99(Fasting)); Lipase 11.0 U/L (11-82); Potassium 3.5 mmol/L (3.5-5.1); Sodium 137.0 mmol/L (136-145); Total Protein 5.3 gm/dl (6.0-8.3)
--- NOTE | 2024-11-19 20:41 | Hospitalist Progress Note ---
Date of Service November 19, 2024 Assessment & Plan (1) Acute hypoxemic respiratory failure: (2) Multifocal pneumonia: (3) Breast cancer, stage 4: (4) Metastases to the liver: (5) Memory loss: (6) Hypothyroidism: (7) Atrial fibrillation: (8) Diabetes mellitus, type 2: (9) Hx of cardiac pacemaker: (10) Gastroesophageal reflux disease: (11) Status post gastric bypass for obesity: (12) MRSA (methicillin resistant staph aureus) culture positive: (13) Chronic headaches: (14) Stress-induced cardiomyopathy: (15) Acute HFrEF (heart failure with reduced ejection fraction): (16) Pleural effusion: Plan 74yo female with metastatic breast cancer (initial dx 2015 - localized L breast ca, with discovery of mets in 2019), afib on Eliquis, tachy-monica syndrome, DM2, hypothyroidism, dyslipidemia, anxiety, and admission in 08/2024 for pneumonia. Since that admission she had been staying at [facility] for rehab but has made little progress with such. Presented to ED on 10/25/24 with dyspnea. She was tachypneic, tachycardic, and hypoxic. Initial imaging with pulmonary edema, b/l effusions, and b/l pneumonia. #acute hypoxic respiratory failure - present on admission - resolved -multifactorial: -b/l pneumonia -acute CHF with pulm edema/effusions -cannot rule out progressive breast cancer with mets to the lungs / lymphangitic spread -completed full course of antibiotics for pneumonia -has received diuresis throughout her stay - IV, now PO, with improved volume status -due to transitioning to comfort care no thoracentesis was performed during the visit #b/l pneumonia - -s/p full treatment course #abdominal pain - -KUB x-ray with copious stool & gas -bowel regimen -pain improved today -LFTs and lipase wnl (alk phos elevation is chronic and likely due to liver mets) #stage 4 breast cancer with mets to the liver - -follows with Dr De Luna, cancer care clinic -has not had chemo since early 2024 -CT a/p in August showed progressive liver mets -CT this admission again showed progressive liver mets -palliative care consulted; numerous discussions with pt's family -ultimate plan is to SNF with hospice -for now quasi-comfort care pathway (but continuing with meds and basic care for now) #acute HFrEF 2nd to suspected stress-induced cardiomyopathy - -based on echo findings this admission; EF 35-40% -alternatively the cardiomyopathy could be ischemic in etiology -not a candidate for catheterization -cont lasix 20mg BID -defer on initiating Entresto, beta alec, etc due to transition to hospice #opiate-induced constipation - -is not on a consistent bowel regimen -starting bowel regimen in light of KUB findings #atrial fibrillation on Eliquis - -patient is on diltiazem 360mg daily and Eliquis -when she transitions to hospice would stop Eliquis #T2DM - -remains on small amount of once daily lantus -would stop such upon transition to hospice #hypothyroidism - -cont synthroid for now #chronic headaches/memory loss/confusion - -CT head early in admission negative #b/l pleural effusions - -see discussion above #GERD - -add back PPI or H2 alec if needed pt's daughter updated at bedside today plan is still placement at SNF for hospice if possible Admission and Anticipated Discharge Date Admission Date: October 25, 2024 Subjective patient sleeping upon my arrival pt's daughter at bedside daughter confirmed that plan is still for placement at SNF patient ultimately woke up she was a little out of it at first, but ultimately woke up and was more alert did NOT have any abd pain today did take the dulcolax suppos but no BM thus far eating fair pt denied any dyspnea Physical Exam Physical Exam: gen - less confusion today, NAD skin - generalized pallor heart - RRR, s1 s2, no murmur lungs - decreased BS b/l bases only, no adventitious sounds posteriorly; no increased work of breathing abd - soft, liver edge palpable, no tenderness centrally today, less distension, BS+ ext - no edema; pulses b/l feet 1-2+ Results & Data Results & Data Vital Signs (Past 12 Hours) Vital Signs BP O2 Del Method 11/19/24 18:28 131/76 11/19/24 11:00 Room Air Laboratory Results Laboratory Results - last 48 hr 11/19/24 11/19/24 11/20/24 06:17 06:21 09:41 Sodium 137 Potassium 3.5 Chloride 100 Carbon Dioxide 30 Anion Gap 7 BUN 16 Creatinine 0.73 Est Cr Clr Drug Dosing 54.2 eGFR 85.18 BUN/Creatinine Ratio 21.9 H Glucose 173 H POC Glucose 146 H Calcium 8.2 L Total Bilirubin 0.4 Direct Bilirubin 0.1 AST 35 ALT 16 Alkaline Phosphatase 236 H Ammonia 22.0 Total Protein 5.3 L Albumin 2.5 L Lipase 11 Diagnostic Findings KUB X-Ray 11/18/24 17:41 INDICATION: Abdominal pain TECHNIQUE: Portable supine upright view radiograph of the abdomen was obtained. COMPARISON: Abdominal pelvic CT October 28, 2024. FINDINGS: Moderate fecal load over the large bowel that is mildly gas-distended. Mildly air distended loops of small bowel are also likely present. No obvious free air in these radiographs. Surgical clips over the right upper quadrant of the abdomen. Suture material over the left upper quadrant of the abdomen. Lumbosacral spinal fusion and bilateral hip arthroplasty. Partially included cardiac pacemaker lead. IMPRESSION: Moderate fecal load over the large bowel suggesting constipation. Mildly air distended loops of small bowel may be present as well. The findings may favor constipation and possibly ileus although if there is concern for a more worrisome process such as mechanical obstruction, CT may be acquired. Electronically signed by Fabián Patterson 11-18-2024 9:06 PM PG Care Time/CCT Total # of Minutes Spent Total Time Spent with Patient: Total time spent is greater than 50% in coordination of care (as documented) at patient's floor/unit and/or counseling patient: Coding Level of Care Code 28202 SUB INP/OBS CARE 06/12MIN Diagnoses Acute hypoxemic respiratory failure J96.01 Multifocal pneumonia J18.9 Breast cancer, stage 4 C50.919 Metastases to the liver C78.7 Memory loss R41.3 Hypothyroidism E03.9 Atrial fibrillation I48.91 Diabetes mellitus, type 2 E11.9 Hx of cardiac pacemaker Z95.0 Gastroesophageal reflux disease, esophagitis presence not specified K21.9 Esophagitis presence: esophagitis presence not specified Status post gastric bypass for obesity Z98.84 MRSA (methicillin resistant staph aureus) culture positive Z22.322 Chronic headaches R51.9; G89.29 Stress-induced cardiomyopathy I51.81 Acute HFrEF (heart failure with reduced ejection fraction) I50.21 Pleural effusion J90 (10) Gastroesophageal reflux disease Esophagitis presence: esophagitis presence not specified Qualified Code(s): K21.9 - Gastro-esophageal reflux disease without esophagitis
[2024-11-20] MEDS: POLYETHYLENE (MIRALAX) 17 GM PACK PO SCH (10:58)
[2024-11-20] MEDS: DOCUSATE SODIUM/SENNA 50/8.6MG TAB PO SCH (10:58)
--- NOTE | 2024-11-20 16:23 | Hospitalist Progress Note ---
Date of Service November 20, 2024 Assessment & Plan (1) Acute hypoxemic respiratory failure: (2) Multifocal pneumonia: (3) Breast cancer, stage 4: (4) Metastases to the liver: (5) Memory loss: (6) Hypothyroidism: (7) Atrial fibrillation: (8) Diabetes mellitus, type 2: (9) Hx of cardiac pacemaker: (10) Gastroesophageal reflux disease: (11) Status post gastric bypass for obesity: (12) MRSA (methicillin resistant staph aureus) culture positive: (13) Chronic headaches: (14) Stress-induced cardiomyopathy: (15) Acute HFrEF (heart failure with reduced ejection fraction): (16) Pleural effusion: Plan 74yo female with metastatic breast cancer (initial dx 2015 - localized L breast ca, with discovery of mets in 2019), afib on Eliquis, tachy-monica syndrome, DM2, hypothyroidism, dyslipidemia, anxiety, and admission in 08/2024 for pneumonia. Since that admission she had been staying at [facility] for rehab but has made little progress with such. Presented to ED on 10/25/24 with dyspnea. She was tachypneic, tachycardic, and hypoxic. Initial imaging with pulmonary edema, b/l effusions, and b/l pneumonia. #right hip pain - -obtained x-rays of hip/pelvis - hardware intact right hip; hardware intact lumbar spine -bony mets from cancer? -referred pain from lumbar spine DJD? -trochanteric bursitis? -add voltaren gel 4gm QID to right lateral hip -morphine prn -k-pad ordered -if pain persists, worsens, etc consider extended-release pain med - Butrans patch vs fentanyl patch vs other; I think she would better tolerate Butrans patch -could consider low-dose dexamethasone (2mg/day) as last resort #acute hypoxic respiratory failure - present on admission - resolved -multifactorial: -b/l pneumonia -acute CHF with pulm edema/effusions -cannot rule out progressive breast cancer with mets to the lungs / lymphangitic spread -completed full course of antibiotics for pneumonia -has received diuresis throughout her stay - IV, now PO, with improved volume status -due to transitioning to comfort care no thoracentesis was performed during the visit #b/l pneumonia - -s/p full treatment course #abdominal pain - resolved - -recent KUB x-ray with copious stool & gas -cont bowel regimen - miralax/senna/colace -recent LFTs and lipase wnl (alk phos elevation is chronic and likely due to liver mets) #stage 4 breast cancer with mets to the liver - -follows with Dr De Luna, cancer care clinic -has not had chemo since early 2024 -CT a/p in August showed progressive liver mets -CT this admission again showed progressive liver mets -palliative care consulted; numerous discussions with pt's family -ultimate plan is to SNF with hospice -for now quasi-comfort care pathway (but continuing with meds and basic care for now) #acute HFrEF 2nd to suspected stress-induced cardiomyopathy - -based on echo findings this admission; EF 35-40% -alternatively the cardiomyopathy could be ischemic in etiology -not a candidate for catheterization -cont lasix 20mg BID; consider lowering to 20mg/day - po intake is not the greatest -defer on initiating Entresto, beta alec, etc due to transition to hospice #opiate-induced constipation - -bowel regimen #atrial fibrillation on Eliquis - -patient is on diltiazem 360mg daily and Eliquis -when she transitions to hospice would stop Eliquis #T2DM - -remains on small amount of once daily lantus -would stop such upon transition to hospice #hypothyroidism - -cont synthroid for now #chronic headaches/memory loss/confusion - -CT head early in admission negative #b/l pleural effusions - -see discussion above #GERD - -add back PPI or H2 alec if needed pt's daughter updated at bedside yesterday plan is still placement at SNF for hospice if possible Admission and Anticipated Discharge Date Admission Date: October 25, 2024 Subjective c/o right lateral hip pain moving the right leg causes pain lower lumbar spine also hurts denies abd pain sleeping on/off thru the day staff are aware of right hip pain Review of Systems Review of Systems: cv - denies chest pain pulm - denies dyspnea GI - has not stooled since 11/16 Physical Exam Physical Exam: gen - was initially sleeping, then woke up; pleasant, mild confusion mouth - MM look dry skin - generalized pallor heart - RRR, s1 s2, no murmur lungs - decreased BS b/l bases only, no adventitious sounds posteriorly; no increased work of breathing abd - soft, nontender, no distension, BS+ ext - no edema; pulses b/l feet 1-2+ musculo - log-rolling of right leg causes lateral hip pain on right; no deformity; passive flexion of right hip also causes pain Results & Data Results & Data Vital Signs (Past 12 Hours) Vital Signs Temp Pulse Resp BP Pulse Ox O2 Del Method 11/20/24 15:19 36.6 C 60 16 127/74 95 Room Air 11/20/24 09:45 61 138/61 11/20/24 07:50 Room Air 11/20/24 07:08 36.3 C L 60 16 145/81 H 93 Room Air PG Care Time/CCT Total # of Minutes Spent Total Time Spent with Patient: Total time spent is greater than 50% in coordination of care (as documented) at patient's floor/unit and/or counseling patient: Coding Level of Care Code 29066 SUB INP/OBS CARE 2/35MIN Diagnoses Acute hypoxemic respiratory failure J96.01 Multifocal pneumonia J18.9 Breast cancer, stage 4 C50.919 Metastases to the liver C78.7 Memory loss R41.3 Hypothyroidism E03.9 Atrial fibrillation I48.91 Diabetes mellitus, type 2 E11.9 Hx of cardiac pacemaker Z95.0 Gastroesophageal reflux disease, esophagitis presence not specified K21.9 Esophagitis presence: esophagitis presence not specified Status post gastric bypass for obesity Z98.84 MRSA (methicillin resistant staph aureus) culture positive Z22.322 Chronic headaches R51.9; G89.29 Stress-induced cardiomyopathy I51.81 Acute HFrEF (heart failure with reduced ejection fraction) I50.21 Pleural effusion J90 (10) Gastroesophageal reflux disease Esophagitis presence: esophagitis presence not specified Qualified Code(s): K21.9 - Gastro-esophageal reflux disease without esophagitis
[2024-11-20] MEDS: DICLOFENAC SOD 1% GEL 100 GM TUBE EXT SCH (17:09)
--- NOTE | 2024-11-20 18:21 | XRay Report ---
EXAM: XR hip RT 2V w pelvis CLINICAL HISTORY: acute right hip pain; prior THR TECHNIQUE: X-ray images of the right hip joint and pelvis were obtained in anteroposterior (AP) and lateral projections. COMPARISON: 05/02/2021. FINDINGS: Pelvic Bones: Osteopenic texture. Pelvic bones, including the iliac wings, ischium, pubis, and sacrum, are normal and intact. No evidence of fractures, dislocations, or significant osseous lesions. Hip Joints: Bilateral hip arthroplasty. No loosening or malalignment. Mild bilateral sacroiliitis. Symphysis Pubis: Osteitis pubis. Soft Tissues: Visualized soft tissues are normal and unremarkable. No soft tissue swelling, calcifications, or masses. Additional Findings: Spinolaminectomy with transpedicular fixation screws and disc spacer insertions is seen at the lumbar spine, stable. Fixation of the distal femoral shaft/right knee replacement (appreciated in the current study). IMPRESSION: 1. No evidence of acute fractures. 2. Bilateral hip arthroplasty showing satisfactory alignment. No loosening. 3. Osteopenic texture. 4. Mild bilateral sacroiliitis. 5. Osteitis pubis. 6. Spinolaminectomy with transpedicular fixation screws and disc spacer insertions is seen at the lumbar spine. 7. Fixation of the distal femoral shaft/right knee replacement (appreciated in the current study). 8. No interval changes. DISCLAIMER:A subtle bone abnormality or fracture may not be readily apparent on x-rays, thus clinical correlation and further imaging including follow up CT, MRI, or follow up x-rays are advised as needed. Electronically signed by Semaj Martinez 11-20-2024 6:20 PM
[2024-11-21] MEDS: dexAMETHasone 2 MG in SYRINGE 0 ML IV SCH (16:20)
--- NOTE | 2024-11-21 20:42 | Hospitalist Progress Note ---
Date of Service November 21, 2024 Assessment & Plan (1) Acute hypoxemic respiratory failure: (2) Multifocal pneumonia: (3) Breast cancer, stage 4: (4) Metastases to the liver: (5) Memory loss: (6) Hypothyroidism: (7) Atrial fibrillation: (8) Diabetes mellitus, type 2: (9) Hx of cardiac pacemaker: (10) Gastroesophageal reflux disease: (11) Status post gastric bypass for obesity: (12) MRSA (methicillin resistant staph aureus) culture positive: (13) Chronic headaches: (14) Stress-induced cardiomyopathy: (15) Acute HFrEF (heart failure with reduced ejection fraction): (16) Right hip pain: (17) Low back pain: Plan 74yo female with metastatic breast cancer (initial dx 2015 - localized L breast ca, with discovery of mets in 2019), afib on Eliquis, tachy-monica syndrome, DM2, hypothyroidism, dyslipidemia, anxiety, and admission in 08/2024 for pneumonia. Since that admission she had been staying at [facility] for rehab but has made little progress with such. Presented to ED on 10/25/24 with dyspnea. She was tachypneic, tachycardic, and hypoxic. Initial imaging with pulmonary edema, b/l effusions, and b/l pneumonia. #right hip pain - -obtained x-rays of hip/pelvis - hardware intact right hip; hardware intact lumbar spine -bony mets from cancer? -referred pain from lumbar spine DJD? -trochanteric bursitis? -despite adding voltaren gel 4gm QID to right lateral hip, adding K-pad heat, and using roxanol prn she continues with c/o severe pain plan: -stop roxanol -in andrade start PO dilaudid 1mg q6h prn and titrate -consider long-acting pain med - fentanyl patch vs butrans vs other -add low-dose dexamethasone 2mg/day in the event some of the pain is bony mets; steroids will also help radicular pain from the l-spine -cont lyrica TID (25mg TID) -consider inpatient hospice status for pain control #acute hypoxic respiratory failure - present on admission - resolved -multifactorial: -b/l pneumonia -acute CHF with pulm edema/effusions -cannot rule out progressive breast cancer with mets to the lungs / lymphangitic spread -completed full course of antibiotics for pneumonia -has received diuresis throughout her stay - IV, now PO, with improved volume status -due to transitioning to comfort care no thoracentesis was performed during the visit #b/l pneumonia - -s/p full treatment course #abdominal pain - resolved - -recent KUB x-ray with copious stool & gas -cont bowel regimen - miralax/senna/colace -recent LFTs and lipase wnl (alk phos elevation is chronic and likely due to liver mets) #stage 4 breast cancer with mets to the liver - -follows with Dr De Luna, cancer care clinic -has not had chemo since early 2024 -CT a/p in August showed progressive liver mets -CT this admission again showed progressive liver mets -palliative care consulted; numerous discussions with pt's family -ultimate plan is to SNF with hospice -for now quasi-comfort care pathway #acute HFrEF 2nd to suspected stress-induced cardiomyopathy - -based on echo findings this admission; EF 35-40% -alternatively the cardiomyopathy could be ischemic in etiology -not a candidate for catheterization -she is starting to look mildly volume contracted thus lower lasix to once daily from BID dosing -defer on initiating Entresto, beta alec, etc due to transition to hospice #opiate-induced constipation - -bowel regimen #atrial fibrillation on Eliquis - -patient is on diltiazem 360mg daily and Eliquis -when she transitions to hospice would stop Eliquis #T2DM - -remains on small amount of once daily lantus -would stop such upon transition to hospice #hypothyroidism - -cont synthroid for now #chronic headaches/memory loss/confusion - -CT head early in admission negative #b/l pleural effusions - -see discussion above pt's daughter updated at bedside 2 days ago; will provide update tomorrow plan is still placement at SNF for hospice if possible Admission and Anticipated Discharge Date Admission Date: October 25, 2024 Subjective was sleeping initially, then woke up when I called her name she was initially confused and disoriented, asking who I was (we have met several times) she c/o ongoing severe right hip pain and lower back pain this is despite use of roxanol prn, voltaren gel and k-pad heat eating fair at best denies dyspnea Physical Exam Physical Exam: gen - was initially sleeping, then woke up; mild confusion; c/o pain in right hip mouth - MM dry skin - generalized pallor neck - no JVD heart - RRR, s1 s2, no murmur lungs - decreased BS b/l bases only; otherwise CTA b/l; no increased work of breathing abd - soft, nontender, no distension, BS+ ext - no edema; pulses b/l feet 1-2+ Results & Data Results & Data Vital Signs (Past 12 Hours) Vital Signs Pulse BP 11/21/24 08:55 67 172/72 H Diagnostic Findings Hip/Pelvis X-Ray 11/20/24 16:20 EXAM: XR hip RT 2V w pelvis CLINICAL HISTORY: acute right hip pain; prior THR TECHNIQUE: X-ray images of the right hip joint and pelvis were obtained in anteroposterior (AP) and lateral projections. COMPARISON: 05/02/2021. FINDINGS: Pelvic Bones: Osteopenic texture. Pelvic bones, including the iliac wings, ischium, pubis, and sacrum, are normal and intact. No evidence of fractures, dislocations, or significant osseous lesions. Hip Joints: Bilateral hip arthroplasty. No loosening or malalignment. Mild bilateral sacroiliitis. Symphysis Pubis: Osteitis pubis. Soft Tissues: Visualized soft tissues are normal and unremarkable. No soft tissue swelling, calcifications, or masses. Additional Findings: Spinolaminectomy with transpedicular fixation screws and disc spacer insertions is seen at the lumbar spine, stable. Fixation of the distal femoral shaft/right knee replacement (appreciated in the current study). IMPRESSION: 1. No evidence of acute fractures. 2. Bilateral hip arthroplasty showing satisfactory alignment. No loosening. 3. Osteopenic texture. 4. Mild bilateral sacroiliitis. 5. Osteitis pubis. 6. Spinolaminectomy with transpedicular fixation screws and disc spacer insertions is seen at the lumbar spine. 7. Fixation of the distal femoral shaft/right knee replacement (appreciated in the current study). 8. No interval changes. DISCLAIMER:A subtle bone abnormality or fracture may not be readily apparent on x-rays, thus clinical correlation and further imaging including follow up CT, MRI, or follow up x-rays are advised as needed. Electronically signed by Semaj Martinez 11-20-2024 6:20 PM PG Care Time/CCT Total # of Minutes Spent Total Time Spent with Patient: Total time spent is greater than 50% in coordination of care (as documented) at patient's floor/unit and/or counseling patient: Coding Level of Care Code 41411 SUB INP/OBS CARE MIN Diagnoses Acute hypoxemic respiratory failure J96.01 Multifocal pneumonia J18.9 Breast cancer, stage 4 C50.919 Metastases to the liver C78.7 Memory loss R41.3 Hypothyroidism E03.9 Atrial fibrillation I48.91 Diabetes mellitus, type 2 E11.9 Hx of cardiac pacemaker Z95.0 Gastroesophageal reflux disease, esophagitis presence not specified K21.9 Esophagitis presence: esophagitis presence not specified Status post gastric bypass for obesity Z98.84 MRSA (methicillin resistant staph aureus) culture positive Z22.322 Chronic headaches R51.9; G89.29 Stress-induced cardiomyopathy I51.81 Acute HFrEF (heart failure with reduced ejection fraction) I50.21 Right hip pain M25.551 Low back pain M54.50 (10) Gastroesophageal reflux disease Esophagitis presence: esophagitis presence not specified Qualified Code(s): K21.9 - Gastro-esophageal reflux disease without esophagitis
[2024-11-22] MEDS: FUROSEMIDE 20 MG TAB PO SCH (09:24)
--- NOTE | 2024-11-22 16:53 | Palliative Care Progress Note ---
Date of Service November 22, 2024 Assessment & Plan (1) Palliative care by specialist: Plan: Palliative care will continue to follow for ongoing EOL pt care and family support. (2) Counseling regarding advanced directives and goals of care: Plan: Lengthy family meeting held 11/01/24, goals of care clearly established for comfort directed care, plan for discharge to [facility] with hospice. CM working with family for discharge plan. (3) Cancer related pain: Plan: Pt awake and alert today, shared that pain is well managed at this time. Steroids added per primary. No additional changes recommended at this time. Continue scheduled pregabalin and restart marinol per primary. Continue tramadol 100 mg PO Q6H PRN for moderate pain and Hydromorphone HCl 1 mg PO Q6H PRN severe BTP. (4) Comfort measures only status: Plan: Family request transition to PHARMACY TECHNICIAN INSTRUCTOR on 11/01/24. (5) Need for comfort care: Plan: Family request transition to PHARMACY TECHNICIAN INSTRUCTOR on 11/01/24, continue current course of ABx/ medical management (per primary team) through admission with transition to hospice care on discharge. Plan as above Admission and Anticipated Discharge Date Admission Date: October 25, 2024 Subjective Assessed pt at bedside, she was transitioned to PHARMACY TECHNICIAN INSTRUCTOR on 11/01/24. Pt is awake/alert today and pleasantly communicative. She appears comfortable, NAD, with normal respiratory effort on room air. No visitors at bedside. Pt states that pain is well managed at this time. Pt reports 2 large BMs today. Review of Systems Review of Systems: All systems reviewed & are unremarkable except as noted in Subjective Physical Exam Constitutional: + ill appearing and + frail appearing; n o acute distress Eyes: PERRL, conjunctivae normal, anicteric sclerae Neck: normal visual inspection and trachea midline; neck nontender Respiratory: normal respiratory effort and able to speak in complete sentences; does not use accessory muscles and no cough Auscultation: + diminished lung sounds (bilateral bases) and + wheezes (diffusely) Cardiovascular: Rate/Rhythm: regular rate and regular rhythm Heart Sounds: no murmur Vessels: + JVD Extremities: + edema (2+ LUE, trace RLE); no calf tenderness Gastrointestinal (Abdomen): normal bowel sounds, soft, nontender, no hepatosplenomegaly Inspection/Auscultation: abdomen not distended Musculoskeletal: Extremities: + joint enlargement (R knee) and strength 5/5 throughout; no cyanosis and no clubbing Skin: no rashes, warm and dry Neurologic: Psychiatric: A+Ox3, euthymic affect Results & Data Vital Signs (Past 12 Hours) Vital Signs Temp Pulse Resp BP Pulse Ox O2 Del Method 11/22/24 08:48 36.9 C 62 18 171/72 H 93 Room Air Laboratory Results No further labs or diagnostics in concert with comfort directed care. Diagnostic Findings No further labs or diagnostics in concert with comfort directed care. Medications Administered Current Inpatient Medications Acetaminophen (Acetaminophen 325 Mg Tab) 650 mg PO QID [facility] Stop: 12/15/24 16:59 Last Admin: 11/22/24 14:00 Dose: 650 mg Albuterol (Albuterol Hfa 8 Gm Inhaler) 2 puffs INH Q4H PRN PRN Reason: Shortness Of Breath Or Wheezing Stop: 11/24/24 23:04 Last Admin: 11/10/24 13:09 Dose: 2 puffs Apixaban (Apixaban 5 Mg Tablet) 5 mg PO BID [facility] Stop: 12/05/24 20:59 Last Admin: 11/22/24 09:25 Dose: 5 mg Bisacodyl (Bisacodyl 10 Mg Supp) 10 mg MI DAILY PRN PRN Reason: Constipation =-2ND LINE Stop: 11/24/24 23:04 Last Admin: 11/21/24 17:21 Dose: 10 mg Buspirone HCl (Buspirone 5 Mg Tab) 10 mg PO TID [facility] Stop: 12/02/24 13:59 Last Admin: 11/22/24 14:01 Dose: 10 mg Diclofenac Sodium (Diclofenac Sod 1% Gel 100 Gm Tube) 4 gm EXT QID [facility]; Protocol Stop: 12/20/24 16:59 Last Admin: 11/22/24 14:00 Dose: 4 gm Diltiazem HCl (Diltiazem Hcl 180 Mg Capcr) 360 mg PO QAM [facility] Stop: 11/25/24 08:59 Last Admin: 11/22/24 09:24 Dose: 360 mg Duloxetine HCl (Duloxetine Hcl 60 Mg Cap) 120 mg PO DAILY [facility] Stop: 11/25/24 08:59 Last Admin: 11/22/24 09:23 Dose: 120 mg Furosemide (Furosemide 20 Mg Tab) 20 mg PO QAM [facility] Stop: 12/22/24 08:59 Last Admin: 11/22/24 09:24 Dose: 20 mg Glycopyrrolate (Glycopyrrolate 0.2 Mg/Ml Vial) 0.4 mg IV Q4H PRN PRN Reason: Rattling Secretions or Pulm Congestion Stop: 12/01/24 17:08 Heparin Sodium (Porcine) (Heparin 100 Unit/Ml 5ml Flush) 5 ml FLUSH PRN PRN PRN Reason: Flush Stop: 12/13/24 10:16 Last Admin: 11/21/24 16:21 Dose: 5 ml Hydromorphone HCl (Hydromorphone Hcl 2 Mg Tab) 1 mg PO Q6H PRN PRN Reason: Pain Stop: 12/05/24 15:54 Last Admin: 11/22/24 15:19 Dose: 1 mg Dexamethasone 2 mg/ Syringe 0.5 mls @ 1 mls/min IV Q24H [facility] Stop: 12/21/24 15:59 Last Admin: 11/21/24 16:20 Dose: 1 mls/min Insulin Glargine (Lantus Per Unit Charge) 6 units SQ DAILY [facility] Stop: 11/27/24 08:59 Last Admin: 11/22/24 09:29 Dose: 6 units Levothyroxine Sodium (Levothyroxine Sodium 75 Mcg Tablet) 75 mcg PO DAILYBB [facility] Stop: 11/25/24 06:29 Last Admin: 11/22/24 06:01 Dose: 75 mcg Lidocaine (Lidocaine 5% Oint 30 Gm Tube) 1 appln EXT BID [facility] Stop: 11/29/24 09:14 Last Admin: 11/22/24 09:25 Dose: 1 appln Lorazepam (Lorazepam 2 Mg/1 Ml Vial) 0.5 mg IV Q4H PRN PRN Reason: Anxiety/Agitation Stop: 12/01/24 17:08 Last Admin: 11/18/24 20:50 Dose: 0.5 mg Magnesium Hydroxide (Magnesium Hydroxide Susp 30 Ml Udc) 30 ml PO DAILY PRN PRN Reason: Constipation-FIRST Line Stop: 11/24/24 23:04 Melatonin (Melatonin 3 Mg Tab) 9 mg PO HS PRN PRN Reason: Sleep Stop: 11/24/24 23:04 Last Admin: 11/21/24 20:22 Dose: 9 mg Multi-Ingredient Mouthwash/Gargle (First - Mouthwash Blm 5 Ml Udp) 5 ml PO TID [facility] Stop: 11/29/24 09:29 Last Admin: 11/22/24 14:01 Dose: 5 ml Multivitamins (Multivitamin Tab) 1 tab PO QAM [facility] Stop: 11/25/24 08:59 Last Admin: 11/22/24 09:24 Dose: 1 tab Olopatadine HCl (Olopatadine Hcl 37 Drops/2.5 Ml Drops) 1 drops OP DAILY PRN PRN Reason: DRY EYES Stop: 11/27/24 08:59 Last Admin: 11/03/24 09:12 Dose: 1 drops Ondansetron HCl (Ondansetron Inj 2 Mg/Ml 2 Ml Vial) 4 mg IV Q4H PRN PRN Reason: Nausea &/or Vomiting Stop: 12/01/24 17:08 Last Admin: 11/16/24 13:06 Dose: 4 mg Ondansetron HCl (Ondansetron 4 Mg Od Tab) 4 mg SL Q4H PRN PRN Reason: Nausea &/or Vomiting Stop: 12/01/24 17:08 Polyethylene Glycol (Polyethylene (Miralax) 17 Gm Pack) 17 gm PO DAILY [facility] Stop: 12/20/24 10:14 Last Admin: 11/22/24 09:22 Dose: 17 gm Pregabalin (Pregabalin 25 Mg Cap) 25 mg PO TID [facility] Stop: 12/15/24 15:59 Last Admin: 11/22/24 14:00 Dose: 25 mg Senna/Docusate Sodium (Docusate Sodium/Senna 50/8.6mg Tab) 1 tab PO BID [facility] Stop: 12/20/24 10:14 Last Admin: 11/22/24 09:29 Dose: 1 tab Sodium Biphosphate/Sodium Phosphate (Sod Phosphate/Sod Biphosphate Enema 132 Ml Btl) 118 ml MI DAILY PRN PRN Reason: Constipation-fourth choice Stop: 11/24/24 23:04 PG Care Time/CCT Total # of Minutes Spent Total Time Spent with Patient: Total time spent is greater than 50% in coordination of care (as documented) at patient's floor/unit and/or counseling patient: Coding [place] [address] SUB INP/OBS CARE 2/35MIN Patient Type Established History Problem Focused Exam Problem Focused Medical Decision Making Low Complexity Diagnoses Palliative care by specialist Z51.5 Counseling regarding advanced directives and goals of care Z71.89 Cancer related pain G89.3 Comfort measures only status Z51.5 Need for comfort care
--- NOTE | 2024-11-22 20:10 | Hospitalist Progress Note ---
Date of Service November 22, 2024 Assessment & Plan (1) Acute hypoxemic respiratory failure: (2) Multifocal pneumonia: (3) Breast cancer, stage 4: (4) Metastases to the liver: (5) Memory loss: (6) Hypothyroidism: (7) Atrial fibrillation: (8) Diabetes mellitus, type 2: (9) Hx of cardiac pacemaker: (10) Gastroesophageal reflux disease: (11) Status post gastric bypass for obesity: (12) MRSA (methicillin resistant staph aureus) culture positive: (13) Chronic headaches: (14) Stress-induced cardiomyopathy: (15) Acute HFrEF (heart failure with reduced ejection fraction): (16) Right hip pain: (17) Low back pain: Plan 74yo female with metastatic breast cancer (initial dx 2015 - localized L breast ca, with discovery of mets in 2019), afib on Eliquis, tachy-monica syndrome, DM2, hypothyroidism, dyslipidemia, anxiety, and admission in 08/2024 for pneumonia. Since that admission she had been staying at [facility] for rehab but has made little progress with such. Presented to ED on 10/25/24 with dyspnea. She was tachypneic, tachycardic, and hypoxic. Initial imaging with pulmonary edema, b/l effusions, and b/l pneumonia. #right hip pain - -obtained x-rays of hip/pelvis - hardware intact right hip; hardware intact lumbar spine -bony mets from cancer? -referred pain from lumbar spine DJD? -trochanteric bursitis? -despite adding voltaren gel 4gm QID to right lateral hip, adding K-pad heat, and using roxanol prn she continued with severe pain over the weekend -pain is better today after starting low-dose steroids and switching to PO dilaudid -could consider adding long-acting pain med - fentanyl patch vs butrans vs other - defer to palliative care team -cont lyrica TID (25mg TID) -consider inpatient hospice status for pain control if pain worsens again #acute hypoxic respiratory failure - present on admission - resolved -multifactorial: -b/l pneumonia -acute CHF with pulm edema/effusions -cannot rule out progressive breast cancer with mets to the lungs / lymphangitic spread -completed full course of antibiotics for pneumonia -has received diuresis throughout her stay - IV, now PO, with improved volume status -due to transitioning to comfort care no thoracentesis was performed during the visit #b/l pneumonia - -s/p full treatment course #abdominal pain - resolved - -recent KUB x-ray with copious stool & gas -cont bowel regimen - miralax/senna/colace -had large BM on 11/21 -recent LFTs and lipase wnl (alk phos elevation is chronic and likely due to liver mets) #stage 4 breast cancer with mets to the liver - -follows with Dr De Luna, cancer care clinic -has not had chemo since early 2024 -CT a/p in August showed progressive liver mets -CT this admission again showed progressive liver mets -palliative care consulted; numerous discussions with pt's family -ultimate plan is to SNF with hospice -for now continue quasi-comfort care pathway #acute HFrEF 2nd to suspected stress-induced cardiomyopathy - -based on echo findings this admission; EF 35-40% -alternatively the cardiomyopathy could be ischemic in etiology -not a candidate for catheterization -remains compensated -cont lasix 20mg daily -defer on initiating Entresto, beta alec, etc due to transition to hospice #opiate-induced constipation - -bowel regimen #atrial fibrillation on Eliquis - -patient is on diltiazem 360mg daily and Eliquis -when she transitions to hospice would stop Eliquis #T2DM - -remains on small amount of once daily lantus -would stop such upon transition to hospice #hypothyroidism - -cont synthroid for now #chronic headaches/memory loss/confusion - -CT head early in admission negative #b/l pleural effusions - -see discussion above pt's daughter Rachelle updated at bedside today plan is still placement at SNF for hospice if possible but case management having trouble finding a SNF for her due to previous issues with prior SNFs (financial, etc) care d/w HU[facility] Reinoso for palliative care Admission and Anticipated Discharge Date Admission Date: October 25, 2024 Subjective pt quite spirited and sprightly today during the visit daughter Rachelle at bedside patient reports her pain in the right leg was improved back pain improved she was confused, saying things at times that didn't make sense denied any new complaints Rachelle told her mom "we are not going to be treating the cancer any more" Review of Systems Review of Systems: CV - no chest pain pulm - no dyspnea GI - n/v Physical Exam Physical Exam: gen - very awake/alert, confused, a little agitated today mouth - MMM neck - no JVD heart - RRR, s1 s2, no murmur lungs - decreased BS b/l bases only; otherwise CTA b/l; no increased work of breathing; no wheeze or rales abd - soft, nontender, no distension, BS+ ext - no edema; pulses b/l feet 1-2+ psych - confused Results & Data Results & Data Vital Signs (Past 12 Hours) Vital Signs Temp Pulse Resp BP Pulse Ox O2 Del Method 11/22/24 08:48 36.9 C 62 18 171/72 H 93 Room Air PG Care Time/CCT Total # of Minutes Spent Total Time Spent with Patient: Total time spent is greater than 50% in coordination of care (as documented) at patient's floor/unit and/or counseling patient: Coding Level of Care Code 88404 SUB INP/OBS CARE 2/35MIN Diagnoses Acute hypoxemic respiratory failure J96.01 Multifocal pneumonia J18.9 Breast cancer, stage 4 C50.919 Metastases to the liver C78.7 Memory loss R41.3 Hypothyroidism E03.9 Atrial fibrillation I48.91 Diabetes mellitus, type 2 E11.9 Hx of cardiac pacemaker Z95.0 Gastroesophageal reflux disease, esophagitis presence not specified K21.9 Esophagitis presence: esophagitis presence not specified Status post gastric bypass for obesity Z98.84 MRSA (methicillin resistant staph aureus) culture positive Z22.322 Chronic headaches R51.9; G89.29 Stress-induced cardiomyopathy I51.81 Acute HFrEF (heart failure with reduced ejection fraction) I50.21 Right hip pain M25.551 Low back pain M54.50 (10) Gastroesophageal reflux disease Esophagitis presence: esophagitis presence not specified Qualified Code(s): K21.9 - Gastro-esophageal reflux disease without esophagitis
--- NOTE | 2024-11-23 21:20 | Hospitalist Progress Note ---
Date of Service November 23, 2024 Assessment & Plan (1) Acute hypoxemic respiratory failure: (2) Multifocal pneumonia: (3) Breast cancer, stage 4: (4) Metastases to the liver: (5) Memory loss: (6) Hypothyroidism: (7) Atrial fibrillation: (8) Diabetes mellitus, type 2: (9) Hx of cardiac pacemaker: (10) Gastroesophageal reflux disease: (11) Status post gastric bypass for obesity: (12) MRSA (methicillin resistant staph aureus) culture positive: (13) Chronic headaches: (14) Stress-induced cardiomyopathy: (15) Acute HFrEF (heart failure with reduced ejection fraction): (16) Right hip pain: (17) Low back pain: Plan 74yo female with metastatic breast cancer (initial dx 2015 - localized L breast ca, with discovery of mets in 2019), afib on Eliquis, tachy-monica syndrome, DM2, hypothyroidism, dyslipidemia, anxiety, and admission in 08/2024 for pneumonia. Since that admission she had been staying at [facility] for rehab but has made little progress with such. Presented to ED on 10/25/24 with dyspnea. She was tachypneic, tachycardic, and hypoxic. Initial imaging with pulmonary edema, b/l effusions, and b/l pneumonia. #right hip pain - -obtained x-rays of hip/pelvis a few days ago - hardware intact right hip; hardware intact lumbar spine -bony mets from cancer? -referred pain from lumbar spine DJD? -trochanteric bursitis? -despite adding voltaren gel 4gm QID to right lateral hip, adding K-pad heat, and using roxanol prn she continued with severe pain over this past weekend -pain then improved after adding low-dose steroids and switching to PO dilaudid -could consider adding long-acting pain med - fentanyl patch vs butrans vs other - defer to palliative care team -consider inpatient hospice status for pain control if pain worsens again -cont dex 2mg IV daily -cont dilaudid 1mg q6h prn -cont tylenol 650mg q6h scheduled -cont voltaren gel to right hip area QID -cont k-pad -cont lyrica 25 TID #acute hypoxic respiratory failure - present on admission - resolved -multifactorial: -b/l pneumonia -acute CHF with pulm edema/effusions -cannot rule out progressive breast cancer with mets to the lungs / lymphangitic spread -completed full course of antibiotics for pneumonia -has received diuresis throughout her stay - IV, now PO, with improved volume status -due to transitioning to comfort care no thoracentesis was performed earlier in the hospitalization #b/l pneumonia - -s/p full treatment course #abdominal pain - resolved - -recent KUB x-ray with copious stool & gas -cont bowel regimen - miralax/senna/colace -had large BM on 11/21 and another BM this am -recent LFTs and lipase wnl (alk phos elevation is chronic and likely due to liver mets) #stage 4 breast cancer with mets to the liver - -follows with Dr De Luna, cancer care clinic -has not had chemo since early 2024 -CT a/p in August showed progressive liver mets -CT this admission again showed progressive liver mets -palliative care consulted; numerous discussions with pt's family -ultimate plan was to SNF with hospice -she has been on a quasi-comfort care pathway for over 1-2 weeks -we are running into significant issues with placement in SNF; pt and her family owe several balances to several SNFs, [facility] applied for MA for patient, etc. #acute HFrEF 2nd to suspected stress-induced cardiomyopathy - -based on echo findings this admission; EF 35-40% -alternatively the cardiomyopathy could be ischemic in etiology -not a candidate for catheterization -remains compensated -cont lasix 20mg daily -defer on initiating Entresto, beta alec, etc for now #opiate-induced constipation - -bowel regimen #atrial fibrillation on Eliquis - -patient is on diltiazem 360mg daily and Eliquis #T2DM - -remains on small amount of once daily lantus #hypothyroidism - -cont synthroid #chronic headaches/memory loss/confusion - -CT head early in admission negative #b/l pleural effusions - -see discussion above pt's daughter Rachelle updated at bedside 11/22 pt's daughter Clemencia updated at bedside 11/23 see social work notes on difficulties we are having with SNF placement family aware of these difficulties appreciate assistance from social work and palliative care on this complex situation patient would like to get out of bed - let's try this on 11/24 - perhaps get her into a recliner chair or wheelchair Admission and Anticipated Discharge Date Admission Date: October 25, 2024 Subjective pt's daughter Clemencia at bedside today patient resting in bed patient a bit agitated today, stating "I want to get in the chair" when asked about her leg pain she initially said it was bothering her, then she changed her answer and said it wasn't when asked about he back pain she said "ohhhhhhh, it's hurting bad" the subject of hospice came up -- she said "I don't want hospice" we had a discussion about what hospice is, how the focus is to maintain comfort & control pain/other symptoms, etc. explained that hospice in modern times is very different than hospice decades ago she then states that someone told her "she was dying" and this upset her Review of Systems Review of Systems: gen - eating well cv - no chest pain pulm - no dyspnea GI - had stool early this am Physical Exam Physical Exam: gen - very awake/alert, agitated like on other days, intermittently confused mouth - MMM neck - no JVD heart - RRR, s1 s2, no murmur lungs - decreased BS b/l bases much worsed on left; otherwise CTA b/l; no increased work of breathing; no wheeze or rales abd - soft, nontender, no distension, BS+ ext - no edema; pulses b/l feet 1-2+ musculo - tender over lateral hip to palpation psych - confused at times Results & Data Results & Data Vital Signs (Past 12 Hours) Vital Signs O2 Del Method 11/23/24 11:13 Room Air PG Care Time/CCT Total # of Minutes Spent Total Time Spent with Patient: Total time spent is greater than 50% in coordination of care (as documented) at patient's floor/unit and/or counseling patient: Coding Level of Care Code 25006 SUB INP/OBS CARE 2/35MIN Diagnoses Acute hypoxemic respiratory failure J96.01 Multifocal pneumonia J18.9 Breast cancer, stage 4 C50.919 Metastases to the liver C78.7 Memory loss R41.3 Hypothyroidism E03.9 Atrial fibrillation I48.91 Diabetes mellitus, type 2 E11.9 Hx of cardiac pacemaker Z95.0 Gastroesophageal reflux disease, esophagitis presence not specified K21.9 Esophagitis presence: esophagitis presence not specified Status post gastric bypass for obesity Z98.84 MRSA (methicillin resistant staph aureus) culture positive Z22.322 Chronic headaches R51.9; G89.29 Stress-induced cardiomyopathy I51.81 Acute HFrEF (heart failure with reduced ejection fraction) I50.21 Right hip pain M25.551 Low back pain M54.50 (10) Gastroesophageal reflux disease Esophagitis presence: esophagitis presence not specified Qualified Code(s): K21.9 - Gastro-esophageal reflux disease without esophagitis
[2024-11-24 06:37] LABS: Hematocrit (blood only) 31.3 % (37.0-47.0); Hemoglobin 10.0 g/dl (12.0-16.0); Mean Corpuscular Hemoglobin 26.9 pg (25.0-34.0); Mean Corpuscular Volume 84.1 fL (80.0-100.0); Platelet Count 264 K/uL (130-400); RDW Standard Deviation 53.2 fL (36.4-46.3); Red Blood Count 3.72 M/uL (4.20-5.40); White Blood Count 10.15 K/ul (4.8-10.8)
[2024-11-24 06:55] LABS: Anion Gap 7.0 (3-11); Blood Urea Nitrogen 24.0 mg/dl (6-23); Calcium 8.2 mg/dl (8.6-10.3); Carbon Dioxide 29.0 mmol/L (21-32); Chloride 100.0 mmol/L (98-107); Creatinine Clr Calc Pharmacy 46.0 ml/min; Glucose 239.0 mg/dl (70-99(Fasting)); Magnesium 1.9 mg/dl (1.7-2.4); Potassium 3.9 mmol/L (3.5-5.1); Sodium 136.0 mmol/L (136-145)
--- NOTE | 2024-11-24 15:27 | Hospitalist Progress Note ---
Date of Service November 24, 2024 Assessment & Plan (1) Acute hypoxemic respiratory failure: (2) Multifocal pneumonia: (3) Breast cancer, stage 4: (4) Metastases to the liver: (5) Memory loss: (6) Hypothyroidism: (7) Atrial fibrillation: (8) Diabetes mellitus, type 2: (9) Hx of cardiac pacemaker: (10) Gastroesophageal reflux disease: (11) Status post gastric bypass for obesity: (12) MRSA (methicillin resistant staph aureus) culture positive: (13) Chronic headaches: (14) Stress-induced cardiomyopathy: (15) Acute HFrEF (heart failure with reduced ejection fraction): (16) Right hip pain: (17) Low back pain: Plan 74yo female with metastatic breast cancer (initial dx 2015 - localized L breast ca, with discovery of mets in 2019), afib on Eliquis, tachy-monica syndrome, DM2, hypothyroidism, dyslipidemia, anxiety, and admission in 08/2024 for pneumonia. Since that admission she had been staying at [facility] for rehab but has made little progress with such. Presented to ED on 10/25/24 with dyspnea. She was tachypneic, tachycardic, and hypoxic. Initial imaging with pulmonary edema, b/l effusions, and b/l pneumonia. #acute hypoxic respiratory failure - present on admission - resolved #b/l pneumonia - resolved #acute HFrEF, bilateral pleural effusions Earlier in hospital course she was treated for pneumonia with a course of antibiotics and also for acute HFrEF with diuresis. Acute hypoxic respiratory failure resolved. #right hip pain - -obtained x-rays of hip/pelvis a few days ago - hardware intact right hip; hardware intact lumbar spine -she states this is chronic -improved with voltaren gel, K-pad heat, changing oxycodone to oral hydromorphone, course of dexamethasone - change to 2 mg po for tomorrow AM, which will complete 5 days course #stage 4 breast cancer with mets to the liver - -follows with Dr De Luna, cancer care clinic -has not had chemo since early 2024 -CT a/p in August showed progressive liver mets -CT this admission again showed progressive liver mets -palliative care consulted; numerous discussions with pt's family #acute HFrEF 2nd to suspected stress-induced cardiomyopathy - -based on echo findings this admission; EF 35-40% -alternatively the cardiomyopathy could be ischemic in etiology -not a candidate for catheterization -treating with diuresis - cont lasix 20 mg daily, appears euvolemic. -defer on initiating Entresto, beta alec because of overall goals of care #opiate-induced constipation - -bowel regimen -abdominal pain resolved after constipation relieved #atrial fibrillation on Eliquis - -patient is on diltiazem 360mg daily and Eliquis #T2DM - -remains on small amount of once daily lantus. loose control appropriate at this time. BG at goal #hypothyroidism - -cont synthroid #chronic headaches/memory loss/confusion - -CT head early in admission negative -continue palliative care -discussed with care coordination, bedside RN -desires to get up and out of bed, may return to SNF rehab level of care with limited interventions, expectation of eventual hospice -PT/OT howard Admission and Anticipated Discharge Date Admission Date: October 25, 2024 Subjective Doing pretty good today with respect to her pain which is controlled, she says that she has had hip pain and radicular pain that radiates down her posterior legs for a long time like years not short of breath She wants to get out of bed today and is amenable to some PT She requested her Sage catheter be taken out Physical Exam Physical Exam: PHYSICAL EXAMINATION Last 24h vital signs reviewed, see documentation in flowsheet General: comfortable appearing, no distress HEENT: Normocephalic, atraumatic, pupils round and equal, sclerae anicteric, no conjunctival injection, moist mucus membranes Lungs: Normal respiratory effort. Clear to auscultation bilaterally. No RRW Heart: Regular rate and rhythm, no murmurs. No JVD Abdomen: Soft, nontender, nondistended. Bowel sounds present. Extremities: Warm, dry, well-perfused. No extremity edema. Sage catheter draining yellow urine Neuro: Alert and oriented x 4, face symmetric, moves 4 extremities well Psych: labile mood affect and behavior, intermittently feeling very sad Results & Data Results & Data Vital Signs (Past 12 Hours) Vital Signs Temp Pulse Resp BP Pulse Ox O2 Del Method 11/24/24 07:41 36.6 C 60 18 165/77 H 97 Room Air Laboratory Results white blood count is 10, hemoglobin 10 platelet count 264 all of which are stab le Sodium 136 calcium 3.9 BUN 24 and creatinine 0.86 these are unremarkable. Magnesium is normal at 1.9 PG Care Time/CCT Total # of Minutes Spent Total Time Spent with Patient: Total time spent is greater than 50% in coordination of care (as documented) at patient's floor/unit and/or counseling patient: Coding Level of Care Code 55964 SUB INP/OBS CARE 2/35MIN Diagnoses Acute hypoxemic respiratory failure J96.01 Multifocal pneumonia J18.9 Breast cancer, stage 4 C50.919 Metastases to the liver C78.7 Memory loss R41.3 Hypothyroidism E03.9 Atrial fibrillation I48.91 Diabetes mellitus, type 2 E11.9 Hx of cardiac pacemaker Z95.0 Gastroesophageal reflux disease, esophagitis presence not specified K21.9 Esophagitis presence: esophagitis presence not specified Status post gastric bypass for obesity Z98.84 MRSA (methicillin resistant staph aureus) culture positive Z22.322 Chronic headaches R51.9; G89.29 Stress-induced cardiomyopathy I51.81 Acute HFrEF (heart failure with reduced ejection fraction) I50.21 Right hip pain M25.551 Low back pain M54.50 (10) Gastroesophageal reflux disease Esophagitis presence: esophagitis presence not specified Qualified Code(s): K21.9 - Gastro-esophageal reflux disease without esophagitis
--- NOTE | 2024-11-25 13:49 | Palliative Care Progress Note ---
Date of Service November 24, 2024 Assessment & Plan Admission and Anticipated Discharge Date Admission Date: October 25, 2024 Subjective Assessed pt at bedside, she is awake/alert today and pleasantly communicative. She appears comfortable, NAD, with normal respiratory effort on room air. No visitors at bedside. Pt states that pain is well managed at this time. 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 there are no acute issues requiring palliative care interventions at this time, therefore we will sign off on this patient as goals of care are clearly established for DNR/DNI but continue all other life prolonging therapies Thank you for including Palliative Care in the management of this patient. Please call with any questions or concerns regarding this consultation. Review of Systems Review of Systems: All systems reviewed & are unremarkable except as noted in Subjective Physical Exam Constitutional: + ill appearing and + frail appearing; n o acute distress Eyes: PERRL, conjunctivae normal, anicteric sclerae Neck: normal visual inspection and trachea midline; neck nontender Respiratory: normal respiratory effort and able to speak in complete sentences; does not use accessory muscles and no cough Auscultation: + diminished lung sounds (bilateral bases) and + wheezes (diffusely) Cardiovascular: Rate/Rhythm: regular rate and regular rhythm Heart Sounds: no murmur Vessels: + JVD Extremities: + edema (2+ LUE, trace RLE); no calf tenderness Gastrointestinal (Abdomen): normal bowel sounds, soft, nontender, no hepatosplenomegaly Inspection/Auscultation: abdomen not distended Musculoskeletal: Extremities: + joint enlargement (R knee) and strength 5/5 throughout; no cyanosis and no clubbing Skin: no rashes, warm and dry Neurologic: Psychiatric: A+Ox3, euthymic affect Results & Data Vital Signs (Past 12 Hours) Vital Signs Temp Pulse Resp BP Pulse Ox O2 Del Method 11/25/24 09:48 Room Air 11/25/24 07:55 36.8 C 61 18 189/73 H 94 Room Air PG Care Time/CCT Total # of Minutes Spent Total Time Spent with Patient: Total time spent is greater than 50% in coordination of care (as documented) at patient's floor/unit and/or counseling patient: Coding [place] [address] SUB INP/OBS CARE 06/12MIN Patient Type Established History Problem Focused Exam Problem Focused Medical Decision Making Straight Forward
--- NOTE | 2024-11-25 17:38 | Hospitalist Progress Note ---
Date of Service November 25, 2024 Assessment & Plan (1) Acute hypoxemic respiratory failure: (2) Multifocal pneumonia: (3) Breast cancer, stage 4: (4) Metastases to the liver: (5) Memory loss: (6) Hypothyroidism: (7) Atrial fibrillation: (8) Diabetes mellitus, type 2: (9) Hx of cardiac pacemaker: (10) Gastroesophageal reflux disease: (11) Status post gastric bypass for obesity: (12) MRSA (methicillin resistant staph aureus) culture positive: (13) Chronic headaches: (14) Stress-induced cardiomyopathy: (15) Acute HFrEF (heart failure with reduced ejection fraction): (16) Right hip pain: (17) Low back pain: Plan 74yo female with metastatic breast cancer (initial dx 2015 - localized L breast ca, with discovery of mets in 2019), afib on Eliquis, tachy-monica syndrome, DM2, hypothyroidism, dyslipidemia, anxiety, and admission in 08/2024 for pneumonia. Since that admission she had been staying at [facility] for rehab but has made little progress with such. Discharged from [facility] for one day then readmitted here with acute heart failure and pneumonia. For most of hospital stay she has been on comfort measures. Discharge was significantly delayed because of placement/financial issues and medicaid pending. She has had resolution of pneumonia and HFrEF, pain has been controlled on oral medications. #acute hypoxic respiratory failure - present on admission - resolved #b/l pneumonia - resolved #acute HFrEF, bilateral pleural effusions Earlier in hospital course she was treated for pneumonia with a course of antibiotics and also for acute HFrEF with diuresis. Acute hypoxic respiratory failure resolved. #right hip pain - -obtained x-rays of hip/pelvis a few days ago - hardware intact right hip; hardware intact lumbar spine -she states this is chronic -improved with voltaren gel, K-pad heat, course of dexamethasone x 5d completed -reordered PRN tramadol and continue PRN oral hydromorphone #stage 4 breast cancer with mets to the liver - -follows with Dr De Luna, cancer care clinic -has not had chemo since early 2024, functional status has been too poor and remains so -CT a/p in August showed progressive liver mets -CT this admission again showed progressive liver mets -palliative care consulted; numerous discussions with pt's family -based on my discussion with her today, Faith wants to continue rehab and doesn't want to be on hospice at this time -updated Dr. De Luna 11/25 #acute HFrEF 2nd to suspected stress-induced cardiomyopathy - -based on echo findings this admission; EF 35-40% -alternatively the cardiomyopathy could be ischemic in etiology -not a candidate for catheterization -cont lasix 20 mg daily, appears euvolemic. -start low dose EUGENIA and change dilt to toprol XL. Entresto will be cost prohibitive unless/until she is enrolled in medicaid and its on their formulary #opiate-induced constipation - -bowel regimen -abdominal pain resolved after constipation relieved #atrial fibrillation on Eliquis - -patient is on diltiazem 360mg daily and Eliquis -transition diltiazem to metoprolol XL because of cardiomyopathy #T2DM - -remains on small amount of once daily lantus. loose control appropriate at this time. BG at goal #hypothyroidism - -cont synthroid #chronic headaches/memory loss/confusion - -CT head early in admission negative -continue palliative focus of care. 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 Has not been ambulatory for quite some time -discussed with care coord, bedside RN, her daughter, at bedside 11/25 Admission and Anticipated Discharge Date Admission Date: October 25, 2024 Subjective Faith has her family visiting today - daughter and She stood up with therapy for a few seconds and R hip was painful but wasn't premedicated She is upset that she isn't getting cancer treatment - reminded her that she's been too weak to tolerate it since hospitalization in August. Physical Exam Physical Exam: PHYSICAL EXAMINATION Last 24h vital signs reviewed, see documentation in flowsheet General: comfortable appearing, no distress HEENT: Normocephalic, atraumatic, pupils round and equal, sclerae anicteric, no conjunctival injection, moist mucus membranes Lungs: Normal respiratory effort. Clear to auscultation bilaterally. No RRW Heart: Regular rate and rhythm, no murmurs. No JVD Abdomen: Soft, nontender, nondistended. Bowel sounds present. Extremities: Warm, dry, well-perfused. No extremity edema. Sage catheter draining yellow urine Neuro: Alert and oriented x 4, face symmetric, moves 4 extremities well Psych: labile mood affect and behavior, but less so compared to yesterday Results & Data Results & Data Vital Signs (Past 12 Hours) Vital Signs Temp Pulse Resp BP Pulse Ox O2 Del Method 11/25/24 09:48 Room Air 11/25/24 07:55 36.8 C 61 18 189/73 H 94 Room Air PG Care Time/CCT Total # of Minutes Spent Total Time Spent with Patient: I personally spent: 55 minutes today on clinical care activities including: reviewing chart notes and vital signs reviewing outpatient records updating outpatient oncologist discussion with health care coordinator examining and counseling the patient counseling the patient's family writing orders documentation Coding Level of Care Code 03679 SUB INP/OBS CARE 3/50MIN Diagnoses Acute hypoxemic respiratory failure J96.01 Multifocal pneumonia J18.9 Breast cancer, stage 4 C50.919 Metastases to the liver C78.7 Memory loss R41.3 Hypothyroidism E03.9 Atrial fibrillation I48.91 Diabetes mellitus, type 2 E11.9 Hx of cardiac pacemaker Z95.0 Gastroesophageal reflux disease, esophagitis presence not specified K21.9 Esophagitis presence: esophagitis presence not specified Status post gastric bypass for obesity Z98.84 MRSA (methicillin resistant staph aureus) culture positive Z22.322 Chronic headaches R51.9; G89.29 Stress-induced cardiomyopathy I51.81 Acute HFrEF (heart failure with reduced ejection fraction) I50.21 Right hip pain M25.551 Low back pain M54.50 (10) Gastroesophageal reflux disease Esophagitis presence: esophagitis presence not specified Qualified Code(s): K21.9 - Gastro-esophageal reflux disease without esophagitis
[2024-11-25] MEDS: MIRTAZAPINE TAB 15 MG TAB PO SCH (22:45)
[2024-11-26] MEDS: METOPROLOL SUCC 25MG EXT REL TAB PO SCH (08:08)
[2024-11-26] MEDS: OPTIRAY 320 100ml IV ONE (15:46)
--- NOTE | 2024-11-26 16:51 | Hospitalist Progress Note ---
Date of Service November 26, 2024 Assessment & Plan (1) Acute hypoxemic respiratory failure: (2) Multifocal pneumonia: (3) Breast cancer, stage 4: (4) Metastases to the liver: (5) Memory loss: (6) Hypothyroidism: (7) Atrial fibrillation: (8) Diabetes mellitus, type 2: (9) Hx of cardiac pacemaker: (10) Gastroesophageal reflux disease: (11) Status post gastric bypass for obesity: (12) MRSA (methicillin resistant staph aureus) culture positive: (13) Chronic headaches: (14) Stress-induced cardiomyopathy: (15) Acute HFrEF (heart failure with reduced ejection fraction): (16) Right hip pain: (17) Low back pain: Plan 74yo female with metastatic breast cancer (initial dx 2015 - localized L breast ca, with discovery of mets in 2019), afib on Eliquis, tachy-monica syndrome, DM2, hypothyroidism, dyslipidemia, anxiety, and admission in 08/2024 for pneumonia. Since that admission she had been staying at [facility] for rehab but has made little progress with such. Discharged from [facility] for one day then readmitted here with acute heart failure and pneumonia. For most of hospital stay she was on comfort measures. Discharge was significantly delayed because of placement/financial issues and medicaid pending. She has had resolution of pneumonia and HFrEF, pain has been controlled on oral medications. At this point she is has decisional capacity and states she does not want to be on comfort care / hospice. Planning continued rehab. #acute hypoxic respiratory failure - present on admission - resolved #b/l pneumonia - resolved #acute HFrEF, bilateral pleural effusions Earlier in hospital course she was treated for pneumonia with a course of antibiotics and also for acute HFrEF with diuresis. Acute hypoxic respiratory failure resolved. #right hip pain - -obtained x-rays of hip/pelvis a few days ago - hardware intact right hip; hardware intact lumbar spine -seemed to improve with voltaren gel, K-pad heat, course of dexamethasone x 5d completed -PRN tramadol and continue PRN oral hydromorphone -had a few days but has been very painful yesterday (impeding standing) and today in bed. Had fall prior to admission. Could be occult fracture, bone metastases, sacroiliac pain. She has bilateral hip replacements hip joint pain would not be in this location. No radiation of the pain and quite localized so radicular pain less likely as well -ordered CT pelvis and right hip with IV contrast - I reviewed films, awaiting report #stage 4 breast cancer with mets to the liver - -follows with Dr De Luna, cancer care clinic -has not had chemo since early 2024, functional status has been too poor and remains so -CT a/p in August showed progressive liver mets -CT this admission again showed progressive liver mets -palliative care consulted; numerous discussions with pt's family -based on my discussion with her, Faith wants to continue rehab and doesn't want to be on hospice at this time -updated Dr. De Luna 11/25 #acute HFrEF 2nd to suspected stress-induced cardiomyopathy - -based on echo findings this admission; EF 35-40% -alternatively the cardiomyopathy could be ischemic in etiology -not a candidate for catheterization -cont lasix 20 mg daily, appears euvolemic. -start lisinopril 2.5 mg and changing dilt to toprol XL. Entresto will be cost prohibitive unless/until she is enrolled in medicaid and its on their formulary #atrial fibrillation on Eliquis - -patient is on Eliquis -transition diltiazem to metoprolol XL because of cardiomyopathy #T2DM - -remains on small amount of once daily lantus. loose control appropriate at this time. BG at goal #hypothyroidism - -cont synthroid #opiate-induced constipation - -bowel regimen -abdominal pain resolved after constipation relieved #chronic headaches/memory loss/confusion - -CT head early in admission negative -continue palliative focus of care. 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 Has not been ambulatory for quite some time -discussed with care coord, bedside RN, her daughter, at bedside 11/25 Admission and Anticipated Discharge Date Admission Date: October 25, 2024 Subjective Feels terrible today because right buttock/posterior hip pain is severe again Nonradiating, worse with turning in bed and standing Somewhat relieved by tramadol, tylenol PROM at hip does not cause pain. AROM does "I don't want to " Appetite is ok and not short of breath. Did sleep well last night Physical Exam 2 Physical Exam: PHYSICAL EXAMINATION Last 24h vital signs reviewed, see documentation in flowsheet General: comfortable appearing, no distress HEENT: Normocephalic, atraumatic, pupils round and equal, sclerae anicteric, no conjunctival injection, moist mucus membranes Lungs: Normal respiratory effort. Clear to auscultation bilaterally. No RRW Heart: Regular rate and rhythm, no murmurs. No JVD Abdomen: Soft, nontender, nondistended. Bowel sounds present. Extremities: Warm, dry, well-perfused. No extremity edema. RLE with tenderness in a specific area of posterior hip/pelvis potentially SI joint but a little too lateral. PROM and straight leg raise of RLE does not cause pain. Sage catheter draining yellow urine Neuro: Alert and oriented x 4, face symmetric, moves 4 extremities well Psych: labile mood continues Results & Data Results & Data Vital Signs (Past 12 Hours) Vital Signs Temp Pulse Resp BP Pulse Ox O2 Del Method 11/26/24 08:30 Room Air 11/26/24 07:49 36.4 C L 59 L 16 179/83 H 96 Room Air Laboratory Results 11/24/24 06:15 11/24/24 06:15 PG Care Time/CCT Total # of Minutes Spent Total Time Spent with Patient: Total time spent is greater than 50% in coordination of care (as documented) at patient's floor/unit and/or counseling patient: Coding Level of Care Code 09766 SUB INP/OBS CARE 3/50MIN Diagnoses Acute hypoxemic respiratory failure J96.01 Multifocal pneumonia J18.9 Breast cancer, stage 4 C50.919 Metastases to the liver C78.7 Memory loss R41.3 Hypothyroidism E03.9 Atrial fibrillation I48.91 Diabetes mellitus, type 2 E11.9 Hx of cardiac pacemaker Z95.0 Gastroesophageal reflux disease, esophagitis presence not specified K21.9 Esophagitis presence: esophagitis presence not specified Status post gastric bypass for obesity Z98.84 MRSA (methicillin resistant staph aureus) culture positive Z22.322 Chronic headaches R51.9; G89.29 Stress-induced cardiomyopathy I51.81 Acute HFrEF (heart failure with reduced ejection fraction) I50.21 Right hip pain M25.551 Low back pain M54.50 (10) Gastroesophageal reflux disease Esophagitis presence: esophagitis presence not specified Qualified Code(s): K 21.9 - Gastro-esophageal reflux disease without esophagitis
--- NOTE | 2024-11-26 17:36 | CT Scan Report ---
EXAM: CT hip RT w con CLINICAL HISTORY: severe R pelvic/posterior hip pain, met breast cancer. TECHNIQUE: Multislice contrast enhanced CT was performed for the right hip using multiplanar reconstruction in sagittal and coronal planes. Images were sent through PACs for interpretation. One of the following dose reduction techniques was utilized for this exam: Automated exposure control, adjustment of the mA and/or kV according to patient size, and use of iterative reconstruction. COMPARISON: X-ray dated 11/20/2024. FINDINGS: Bones: Evidence of right total hip replacement. Hardware appears intact. No evidence of loosening or osteomyelitis. Decreased bone density. No displaced fracture lines. Joints: Degenerative changes of the right sacroiliac joint and symphysis pubis. Soft Tissues: Atrophic changes of the right gluteal and thigh muscles. Mild subcutaneous fat stranding in the gluteal region and upper thigh. Vascular Structures: Vascular calcification of the visualized iliac and femoral arteries. No significant stenotic segments, aneurysmal dilatation or dissection. Pelvic fluid collections are noted with evidence of intestinal operative intervention. Sage's catheter within the right bladder. See dedicated study of the pelvis. IMPRESSION: 1. Evidence of right total hip replacement with no apparent complications. stable. 2. Decreased bone density with no definite displaced fractures. 3. Correlate with clinical findings. Electronically signed by Semaj Martinez 11-26-2024 5:35 PM
--- NOTE | 2024-11-26 17:52 | CT Scan Report ---
EXAM: CT pelvis w/IV con only CLINICAL HISTORY: severe R pelvic/posterior hip pain, met breast Ca TECHNIQUE: CT scan of the pelvis was performed with IV contrast. Coronal and sagittal reconstructive images were obtained. Optiray 320 94ml intravenous contrast was administered. One of the following dose reduction techniques were utilized for this exam: Automated exposure control, adjustment of the mA and/or kV according to patient size, and use of iterative reconstruction. DLP: 666.72 mGy.cm COMPARISON: 10/28/2024. FINDINGS: The examination is degraded by the motion and the metallic artifacts from the bilateral total hip replacements. Bowel: Mild diffuse mural thickening of the distal ileal bowel loops in relation to the anastomotic site, measuring about 1cm at maximum thickness. Distended ileal bowel loop at the right hemipelvis measuring about 3 cm with a surrounding rim of fluid. Mild free pelvic fluid is noted. The scanned portion of the liver is seen showing heterogeneous CT attenuation. (corresponding to the previously noted metastatic liver disease). A right renal lower calyceal stone is seen measuring 5 mm, with no hydrocalycosis. Lymph Nodes: No pathologically enlarged pelvic lymph nodes. Bones: Marked osteopenia. Bilateral total hip replacement with no prosthesis loosening, break, or chronic osteomyelitis. Lower lumbar spinal fixation with L5-S1 disc cage placement Soft Tissues: Atrophic changes of the right iliopsoas and right thigh muscles. No abnormal masses, swelling, or fluid collections. The urinary bladder catheter is seen in place. Non-visualized uterus likely surgically removed. Vascular Structures: Normal appearance and enhancement of the pelvic vessels. No evidence of aneurysm, dissection, or significant atherosclerosis. IMPRESSION: 1. Bilateral total hip replacement with no prosthesis loosening, break, or chronic osteomyelitis. stable. 2. No acute fracture nor dislocation. 3. Multiple ill-defined sclerotic maico lesions seen at both pelvic bones and sacrum, likley metastatic or related to treated metastatic boey lesions. Stable since prior CT study 4. Mild diffuse mural thickening of the distal ileal bowel loops in relation to the anastomotic site (new finding) Likely inflammatory rather than neoplastic, follow-up is advised. 5. Distended ileal bowel loop at the right hemipelvis measuring about 3 cm with a surrounding rim of fluid. yet no signs of bowel obstruction. new 6. Mild free pelvic fluid is noted. new 7. The scanned portion of the liver is seen showing heterogeneous CT attenuation. (corresponding to the previously noted metastatic liver disease). 8. A right renal lower calyceal stone is seen measuring 5 mm, with no hydrocalycosis. stable. Electronically signed by Semaj Martinez 11-26-2024 5:50 PM
[2024-11-26] MEDS: HYDROmorphone INJ 0.5 MG/0.5 ML SYR IV PRN (19:33)
[2024-11-26] MEDS: LORazepam 0.5 MG TAB PO STA (23:59)
[2024-11-27] MEDS: FUROSEMIDE 40 MG TAB PO SCH (10:25)
--- NOTE | 2024-11-27 17:09 | Hospitalist Progress Note ---
Date of Service November 27, 2024 Assessment & Plan (1) Acute hypoxemic respiratory failure: (2) Multifocal pneumonia: (3) Breast cancer, stage 4: (4) Metastases to the liver: (5) Atrial fibrillation: (6) Diabetes mellitus, type 2: (7) Stress-induced cardiomyopathy: (8) Acute HFrEF (heart failure with reduced ejection fraction): (9) Right hip pain: Plan 74yo female with metastatic breast cancer (initial dx 2015 - localized L breast ca, with discovery of mets in 2019), afib on Eliquis, tachy-monica syndrome, DM2, hypothyroidism, dyslipidemia, anxiety, and admission in 08/2024 for pneumonia. Since that admission she had been staying at [facility] for rehab but has made little progress with such. Discharged from [facility] for one day then readmitted here with acute heart failure and pneumonia. For most of hospital stay she was on comfort measures. Discharge was significantly delayed because of placement/financial issues and medicaid pending. She has had resolution of pneumonia and HFrEF, pain has been controlled on oral medications. At this point she is has decisional capacity and states she does not want to be on comfort care / hospice. Planning continued rehab. #acute hypoxic respiratory failure - present on admission - resolved #b/l pneumonia - resolved #acute HFrEF, bilateral pleural effusions Earlier in hospital course she was treated for pneumonia with a course of antibiotics and also for acute HFrEF with diuresis. Acute hypoxic respiratory failure resolved. #right hip pain - on exam is R posterior buttock, near or lateral to R SI, nonradiating -obtained x-rays of hip/pelvis a few days ago - hardware intact right hip; hardware intact lumbar spine -personally reviewed films of CT hip and pelvis - no fractures, bony mets are present. Will need to review with staff radiologist or rad onc whether any of these correspond to the area of pain -continue pain control with IV/po hydromorphone, po tramadol, APAP, diclofenac gel, pregabalin #stage 4 breast cancer with mets to the liver - -follows with Dr De Luna, cancer care clinic -has not had chemo since early 2024, functional status has been too poor and remains so -CT a/p in August and on this admission showed progressive liver mets -palliative care consulted; numerous discussions with pt's family -based on my discussion with her, Faith wants to continue rehab and doesn't want to be on hospice at this time -updated Dr. De Luna 11/25 #acute HFrEF 2nd to suspected stress-induced cardiomyopathy - #uncontrolled hypertension #atrial fibrillation -based on echo findings this admission; EF 35-40% -alternatively the cardiomyopathy could be ischemic in etiology -not a candidate for coronary angiography -continue apixaban -cont lasix 20 mg daily, appears euvolemic. -increased lisinopril to 5 bid. dilt CD changed to toprol XL - dose increase limited by heart rate. Entresto will be cost prohibitive unless/until she is enrolled in medicaid and its on their formulary #T2DM - -BG above goal -increase glargine a little #hypothyroidism - -cont synthroid #opiate-induced constipation - -bowel regimen -abdominal pain resolved after constipation relieved #chronic headaches/memory loss/confusion - -CT head early in admission negative #Pressure ulcer of left buttock, stage 3, not POA #Pressure induced deep tissue injury of right buttock, not POA -continue pressure offloading, turns -continue wound care per ROSA kapadia for appetite stimulation -continue palliative focus of care. 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 Has not been ambulatory for quite some time -discussed with care coord, bedside RN, her daughter, at bedside 11/25 Admission and Anticipated Discharge Date Admission Date: October 25, 2024 Subjective sleeping both times I came to see her - AM and afternoon has been hypertensive overnight and today Physical Exam Physical Exam: PHYSICAL EXAMINATION Last 24h vital signs reviewed, see documentation in flowsheet General: comfortable appearing, sleeping Lungs:normal WOB CTA lindsay Heart: RRR no mrg Abdomen: nondistended, soft Extremities: wwp and no edema Sage catheter draining yellow urine Neuro: sleeping Results & Data Results & Data Vital Signs (Past 12 Hours) Vital Signs Temp Pulse Pulse Pulse Resp BP Pulse Ox 11/27/24 16:50 60 205/84 H 11/27/24 15:31 60 195/86 H 11/27/24 15:11 36.7 C 85 18 216/80 H 93 11/27/24 13:20 11/27/24 10:32 62 11/27/24 07:56 36.6 C 59 L 16 182/81 H 99 O2 Del Method O2 Flow Rate 11/27/24 16:50 11/27/24 15:31 11/27/24 15:11 Nasal Cannula 2 11/27/24 13:20 Nasal Cannula 2 11/27/24 10:32 11/27/24 07:56 Room Air PG Care Time/CCT Total # of Minutes Spent Total Time Spent with Patient: Total time spent is greater than 50% in coordination of care (as documented) at patient's floor/unit and/or counseling patient: Coding Level of Care Code 03985 SUB INP/OBS CARE 2/35MIN Diagnoses Acute hypoxemic respiratory failure J96.01 Multifocal pneumonia J18.9 Breast cancer, stage 4 C50.919 Metastases to the liver C78.7 Atrial fibrillation I48.91 Diabetes mellitus, type 2 E11.9 Stress-induced cardiomyopathy I51.81 Acute HFrEF (heart failure with reduced ejection fraction) I50.21 Right hip pain M25.551
[2024-11-28 08:20] LABS: Hematocrit (blood only) 29.8 % (37.0-47.0); Hemoglobin 9.1 g/dl (12.0-16.0); Mean Corpuscular Hemoglobin 26.8 pg (25.0-34.0); Mean Corpuscular Volume 87.9 fL (80.0-100.0); Platelet Count 226 K/uL (130-400); RDW Standard Deviation 58.9 fL (36.4-46.3); Red Blood Count 3.39 M/uL (4.20-5.40); White Blood Count 15.80 K/ul (4.8-10.8)
[2024-11-28 08:36] LABS: Alanine Aminotransferase 28.0 U/L (7-52); Albumin Globulin Ratio 1.0 (0.9-2); Alkaline Phosphatase 312.0 U/L (34-104); Anion Gap 5.0 (3-11); Bilirubin,Total 0.4 mg/dl (0.2-1.0); Blood Urea Nitrogen 29.0 mg/dl (6-23); Calcium 8.1 mg/dl (8.6-10.3); Carbon Dioxide 27.0 mmol/L (21-32); Chloride 110.0 mmol/L (98-107); Creatinine Clr Calc Pharmacy 86.1 ml/min; Globulin 2.6 gm/dl (2.5-4.0); Glucose 165.0 mg/dl (70-99(Fasting)); Potassium 3.7 mmol/L (3.5-5.1); Sodium 142.0 mmol/L (136-145); Total Protein 5.2 gm/dl (6.0-8.3)
--- NOTE | 2024-11-28 16:38 | Hospitalist Progress Note ---
Date of Service November 28, 2024 Assessment & Plan (1) Acute hypoxemic respiratory failure: (2) Multifocal pneumonia: (3) Breast cancer, stage 4: (4) Metastases to the liver: (5) Atrial fibrillation: (6) Diabetes mellitus, type 2: (7) Stress-induced cardiomyopathy: (8) Acute HFrEF (heart failure with reduced ejection fraction): (9) Right hip pain: Plan 74yo female with metastatic breast cancer (initial dx 2015 - localized L breast ca, with discovery of mets in 2019), afib on Eliquis, tachy-monica syndrome, DM2, hypothyroidism, dyslipidemia, anxiety, and admission in 08/2024 for pneumonia. Since that admission she had been staying at [facility] for rehab but has made little progress with such. Discharged from [facility] for one day then readmitted here with acute heart failure and pneumonia. For most of hospital stay she was on comfort measures. Discharge was significantly delayed because of placement/financial issues and medicaid pending. She has had resolution of pneumonia and HFrEF, pain has been controlled on oral medications. At this point she is has decisional capacity and states she does not want to be on comfort care / hospice. Planning continued rehab. #acute hypoxic respiratory failure - present on admission - resolved #b/l pneumonia - resolved #acute HFrEF, bilateral pleural effusions Earlier in hospital course she was treated for pneumonia with a course of antibiotics and also for acute HFrEF with diuresis. Acute hypoxic respiratory failure resolved. #right hip pain - on exam is R posterior buttock, near or lateral to R SI, nonradiating -obtained x-rays of hip/pelvis a few days ago - hardware intact right hip; hardware intact lumbar spine -personally reviewed films of CT hip and pelvis - no fractures, bony mets are present. Will need to review with staff radiologist or rad onc whether any of these correspond to the area of pain -continue pain control with po hydromorphone, po tramadol, APAP, diclofenac gel, pregabalin -she is having some delirium after IV hydromorphone 0.5 x 2 doses, which I have stopped #stage 4 breast cancer with mets to the liver - -follows with Dr De Luna, cancer care clinic -has not had chemo since early 2024, functional status has been too poor and remains so -CT a/p in August and on this admission showed progressive liver mets -palliative care consulted; numerous discussions with pt's family -based on my discussion with her, Faith wants to continue rehab and doesn't want to be on hospice at this time -updated Dr. De Luna 11/25 #acute HFrEF 2nd to suspected stress-induced cardiomyopathy - #uncontrolled hypertension #atrial fibrillation -based on echo findings this admission; EF 35-40% -alternatively the cardiomyopathy could be ischemic in etiology -not a candidate for coronary angiography -continue apixaban -cont lasix 20 mg daily, appears euvolemic. -increased lisinopril to 5 bid. dilt CD changed to toprol XL - dose increase limited by heart rate. Entresto will be cost prohibitive unless/until she is enrolled in medicaid and its on their formulary -BP improved today #T2DM - -BG above goal -increased glargine a little - assess response. 171 this AM #hypothyroidism - -cont synthroid #opiate-induced constipation - -bowel regimen -abdominal pain resolved after constipation relieved #chronic headaches/memory loss/confusion - -CT head early in admission negative #Pressure ulcer of left buttock, stage 3, not POA #Pressure induced deep tissue injury of right buttock, not POA -continue pressure offloading, turns -continue wound care per WON -marinol for appetite stimulation -continue palliative focus of care. 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 Has not been ambulatory for quite some time -discussed with care coord, bedside RN, her daughter, at bedside 11/25 Admission and Anticipated Discharge Date Admission Date: October 25, 2024 Subjective no R hip pain today but she is loopy with silly affect and occasional slurring/word finding IV hydromorphone 0.5 mg once overnight and once at noon Physical Exam 2 Physical Exam: PHYSICAL EXAMINATION Last 24h vital signs reviewed, see documentation in flowsheet General: comfortable appearing, awake Lungs:normal WOB CTA lindsay Heart: RRR no mrg Abdomen: nondistended, soft Extremities: wwp and no edema Sage catheter draining yellow urine Neuro: awake, oriented to self, hospital, at least basic situation but attends to train of thought poorly and giggling inappropriately, face symmetric, eleni, eomi, speech normal except for occasional clumsy word or delay, no dysarthria, tongue midline, moving four extremities Results & Data Results & Data Vital Signs (Past 12 Hours) Vital Signs Temp Pulse Pulse Pulse Resp BP Pulse Ox 11/28/24 14:47 36.4 C L 60 18 173/93 H 99 11/28/24 10:05 173/69 H 11/28/24 09:21 60 186/87 H 11/28/24 07:45 37.3 C 62 18 195/82 H 93 O2 Del Method O2 Flow Rate 11/28/24 14:47 Nasal Cannula 2 11/28/24 10:05 11/28/24 09:21 11/28/24 07:45 Nasal Cannula 3 Laboratory Results 11/28/24 08:08 11/28/24 08:08 PG Care Time/CCT Total # of Minutes Spent Total Time Spent with Patient: Total time spent is greater than 50% in coordination of care (as documented) at patient's floor/unit and/or counseling patient: Coding Level of Care Code 48735 SUB INP/OBS CARE 2/35MIN Diagnoses Acute hypoxemic respiratory failure J96.01 Multifocal pneumonia J18.9 Breast cancer, stage 4 C50.919 Metastases to the liver C78.7 Atrial fibrillation I48.91 Diabetes mellitus, type 2 E11.9 Stress-induced cardiomyopathy I51.81 Acute HFrEF (heart failure with reduced ejection fraction) I50.21 Right hip pain M25.551
[2024-11-29 07:37] VITALS: RESP 16
--- NOTE | 2024-11-29 15:28 | Hospitalist Progress Note ---
Date of Service November 29, 2024 Assessment & Plan (1) Acute hypoxemic respiratory failure: (2) Multifocal pneumonia: (3) Breast cancer, stage 4: (4) Atrial fibrillation: (5) Acute HFrEF (heart failure with reduced ejection fraction): Plan 74yo female with metastatic breast cancer (initial dx 2015 - localized L breast ca, with discovery of mets in 2019), afib on Eliquis, tachy-monica syndrome, DM2, hypothyroidism, dyslipidemia, anxiety, and admission in 08/2024 for pneumonia. Since that admission she had been staying at [facility] for rehab but has made little progress with such. Discharged from [facility] for one day then readmitted here with acute heart failure and pneumonia. For most of hospital stay she was on comfort measures. Discharge was significantly delayed because of placement/financial issues and medicaid pending. She has had resolution of pneumonia and HFrEF, pain has been controlled on oral medications. At this point she is has decisional capacity and states she does not want to be on comfort care / hospice. Planning continued rehab. #acute hypoxic respiratory failure - present on admission - resolved #b/l pneumonia - resolved #acute HFrEF, bilateral pleural effusions Earlier in hospital course she was treated for pneumonia with a course of antibiotics and also for acute HFrEF with diuresis. Acute hypoxic respiratory failure resolved. #right hip pain - on exam is R posterior buttock, near or lateral to R SI, nonradiating -obtained x-rays of hip/pelvis a few days ago - hardware intact right hip; hardware intact lumbar spine -CT hip and pelvis - no fractures, bony mets are present. Reviewed with staff radiologist 11/29 - mets are small, nothing in area of pain to explain it. Could be back/radicular pain or SI joint. Also has pain from sacral ulcer. -continue pain control with po hydromorphone, po tramadol, APAP, diclofenac gel, pregabalin -had some delirium after IV hydromorphone 0.5 x 2 doses, stopped. She's improved #stage 4 breast cancer with mets to the liver, bone - -follows with Dr De Luna, cancer care clinic -has not had chemo since early 2024, functional status has been too poor and remains so -CT a/p in August and on this admission showed progressive liver mets. CT pelvis with small scattered mets. -palliative care consulted; numerous discussions with pt's family, signed off -based on my discussion with her, Faith wants to continue rehab and doesn't want to be on hospice at this time -updated Dr. De Luna 11/25 #acute HFrEF 2nd to suspected stress-induced cardiomyopathy - #uncontrolled hypertension #atrial fibrillation -based on echo findings this admission; EF 35-40% -alternatively the cardiomyopathy could be ischemic in etiology -not a candidate for coronary angiography -continue apixaban -cont lasix 20 mg daily, appears euvolemic. -increased lisinopril to 5 bid. dilt CD changed to toprol XL - dose increase limited by heart rate. Entresto will be cost prohibitive unless/until she is enrolled in medicaid and its on their formulary -BP significantly improved -repeat Echo at interval to see whether improvement, depending on clinical course #T2DM - -BG above goal -increased glargine a little - assess response. 171 this AM #hypothyroidism - -cont synthroid #opiate-induced constipation - -bowel regimen -abdominal pain resolved after constipation relieved #chronic headaches/memory loss/confusion - -CT head early in admission negative #Pressure ulcer of left buttock, stage 3, not POA #Pressure induced deep tissue injury of right buttock, not POA -continue pressure offloading, turns -continue wound care per WON -marinol for appetite stimulation - was very effective but currently unavailable, currently on mirtazapine 7.5 mg HS -continue palliative focus of care. No longer [employer] at this time and planning SNF rehab - accepted at [facility] and auth pending - discussed with RNCM. Medically ready for DC to SNF setting. -DVT ppx - SCDs Admission and Anticipated Discharge Date Admission Date: October 25, 2024 Subjective Faith is not confused this morning, having pain but is related to her sacral ulcer not her hip/buttock, controlled with current meds Physical Exam 2 Physical Exam: PHYSICAL EXAMINATION Last 24h vital signs reviewed, see documentation in flowsheet General: awake and eating sitting up with RN Lungs:normal WOB Heart: deferred Abdomen: s/nt/nd +BT Extremities:both LE warm no edema Sage catheter draining yellow urine Neuro: awake, oriented to self, hospital, basic situation, silly affect improved, face symmetric, eleni, eomi, speech normal, no dysarthria, tongue midline, moving four extremities Results & Data Results & Data Vital Signs (Past 12 Hours) Vital Signs Temp Pulse Resp BP Pulse Ox O2 Del Method 11/29/24 07:36 37.3 C 60 16 132/65 94 Room Air Laboratory Results 11/28/24 08:08 11/28/24 08:08 PG Care Time/CCT Total # of Minutes Spent Total Time Spent with Patient: Total time spent is greater than 50% in coordination of care (as documented) at patient's floor/unit and/or counseling patient: Coding Level of Care Code 05926 SUB INP/OBS CARE 2/35MIN Diagnoses Acute hypoxemic respiratory failure J96.01 Multifocal pneumonia J18.9 Breast cancer, stage 4 C50.919 Atrial fibrillation I48.91 Acute HFrEF (heart failure with reduced ejection fraction) I50.21
[2024-11-29 19:32] VITALS: PULSE 60
[2024-11-30 06:59] VITALS: BP 126/59; TEMP 98.1; O2SAT 95
== END 2024-11-30 11:32 | disposition home or self-care (01) | DRG 193 ==
LOC: ED 18:29 → SUATTDRO 21:08 → 4W 21:08 → 3W 11-05 21:10